=== PATIENT | female | born 1990 | race Caucasian/White ===

== ENCOUNTER 2017-02-08 20:09 | Emergency (ER) | payer BC ==
[~2017-02-08] VITALS: Ht 170.2 cm; Wt 61.2 kg
[~2017-02-08 20:09] MED LIST: CIPR10DR AS; CIPR500T PO; CLIN300C86 PO; ESCI5TAB PO; HYDR453.4 TP; INSU100I13 SQ; INSU100I17 SQ; INSU100V10 IJ; INSU100V13 SQ; INSU100V31 SQ; LISI-338 PO; MAGN400T22 PO; MAGN400T3 PO; METO5TAB PO; METR500T PO; OXYC5CAP3 PO; PANT40TA5 PO; POTA20TA84 PO; SULF1TAB23 PO; TRAM50TA PO
[2017-02-08] MEDS ORDERED: IV NORMAL SALINE 1,000ML 1,000 ML IV ONE ×2 (20:30)
[2017-02-08] MEDS ORDERED: ONDANSETRON PF 4 MG/2 ML VIAL. IV ONE (20:45)
[2017-02-08 21:04] LABS: AMPHETAMINE/METHAMPHETAMINE POS (NEG); BARBITURATES NEG (NEG); BENZODIAZEPINES NEG (NEG); CANNABINOIDS NEG (NEG); COCAINE NEG (NEG); METHADONE NEG (NEG); OPIATES NEG (NEG); PHENCYCLIDINE NEG (NEG)
[2017-02-08 21:06] LABS: BASO % 0 % (0-3); EOS % 0 % (0-3); HEMATOCRIT 44.5 % (36.0-47.0); HEMOGLOBIN 14.6 g/dL (12.0-15.5); LYMPH # 0.6 x10^3/uL (1.0-4.8); LYMPH % 6 % (24-48); MEAN CORPUSCULAR HEMOGLOBIN 30 pg (25-35); MEAN CORPUSCULAR HGB CONC 33 g/dL (31-37); MEAN CORPUSCULAR VOLUME 91 fL (79-100); MONO # 0.3 x10^3/uL (0.0-1.1); MONO % 3 % (0-9); NEUT # 9.2 x10^3uL (1.8-7.7); NEUT % 91 % (31-73); PLATELET COUNT 426 x10^3/uL (140-400); RED BLOOD COUNT 4.92 x10^6/uL (3.50-5.40); WHITE BLOOD COUNT 10.1 x10^3/uL (4.0-11.0)
[2017-02-08 21:12] LABS: BACTERIA,URINE FEW /HPF (0-FEW); BILIRUBIN,URINE NEG (NEG); CLARITY,URINE HAZY; COLOR,URINE YELLOW; GLUCOSE,URINE >=1000 mg/dL (NEG); NITRITE,URINE NEG (NEG); RBC,URINE OCC /HPF (0-2); SQUAMOUS EPITHELIAL CELL,UR MANY /LPF; UROBILINOGEN,URINE 0.2 mg/dL (0.2 mg/dL)
[2017-02-08 21:13] LABS: U PREG PATIENT NEGATIVE (NEG)
[2017-02-08 22:15] LABS: ALBUMIN 2.8 g/dL (3.4-5.0); ALBUMIN/GLOBULIN RATIO 0.9 (1.0-1.7); CALCIUM 7.7 mg/dL (8.5-10.1); CREATININE 0.7 mg/dL (0.6-1.0); POTASSIUM 3.8 mmol/L (3.5-5.1); TOTAL BILIRUBIN 0.4 mg/dL (0.2-1.0)
[2017-02-08] MEDS ORDERED: PROM25SU32 RC (22:25)
--- NOTE | 2017-02-08 22:26 | PHYS DOC ---
Past History Past Medical History: Diabetes Additional Past Medical Histor: pt reports several admissions for "high blood sugar" Past Surgical History: No Surgical History Smoking: Less than 1pk/day Alcohol Use: None Drug Use: Methamphetamine Adult General Chief Complaint Chief Complaint: HYPERGLYCEMIA HPI HPI 26-year-old female well-known to me and are department with multiple visits for DKA. She presents tonight admitting she's been noncompliant with her insulin again. She states she's noncompliant because she just forgets to take it. H for the last 2 days she has had nausea and vomiting in this felt terrible. She denies any illicit drug use. She denies any fever chills or sweats. [] Review of Systems Review of Systems Constitutional: Denies fever or chills [] Eyes: Denies change in visual acuity, redness, or eye pain [] HENT: Denies nasal congestion or sore throat [] Respiratory: Denies cough or shortness of breath [] Cardiovascular: No additional information not addressed in HPI [] GI: Per history of present illness [] : Polyuria [] Musculoskeletal: Denies back pain or joint pain [] Integument: Denies rash or skin lesions [] Neurologic: Denies headache, focal weakness or sensory changes [] Endocrine: Denies polyuria or polydipsia [] Current Medications Current Medications Current Medications Medications (Trade) Dose Ordered Sig/Chevy Start Time Stop Time Status Last Admin Dose Admin Ondansetron HCl (Zofran) 4 mg 1X ONCE 02/08/17 20:45 02/08/17 20:46 DC 02/08/17 20:58 4 MG Sodium Chloride (Iv Sodium Chloride 0.9% 1,000ml) 1,000 ml @ 1,000 mls/hr 1X ONCE 02/08/17 20:30 02/08/17 21:29 DC 02/08/17 21:51 1,000 MLS/HR Allergies Allergies Allergies Coded Allergies Type Severity Reaction Last Updated Verified acetaminophen Allergy Intermediate HIVES 11/27/16 Yes adhesive tape Allergy Intermediate 11/27/16 Yes I S O L A T I O N *CONTACT* Allergy Unknown 11/27/16 Yes Physical Exam Physical Exam Constitutional: Mildly dehydrated, acutely ill however she appears much better than she ordinarily does.. [] HENT: Normocephalic, atraumatic, bilateral external ears normal, oropharynx moist, no oral exudates, nose normal. [] Eyes: PERRLA, EOMI, conjunctiva normal, no discharge. [] Neck: Normal range of motion, no tenderness, supple, no stridor. [] Cardiovascular:Heart rate regular rhythm, no murmur [] Lungs & Thorax: Bilateral breath sounds clear to auscultation [] Abdomen: Bowel sounds normal, soft, no tenderness, no masses, no pulsatile masses. [] Skin: Warm, dry, no erythema, no rash. [] Back: No tenderness, no CVA tenderness. [] Extremities: No tenderness, no cyanosis, no clubbing, ROM intact, no edema. [] Neurologic: Alert and oriented X 3, normal motor function, normal sensory function, no focal deficits noted. [] Psychologic: Affect normal, judgement normal, mood normal. [] Current Patient Data Vital Signs Vital Signs Date Time Temp Pulse Resp B/P Pulse Ox O2 Delivery O2 Flow Rate FiO2 02/08/17 20:09 97.9 114 22 100 Room Air Lab Results Laboratory Tests Test 02/08/17 20:14 02/08/17 20:19 02/08/17 20:45 02/08/17 21:38 Urine Collection Type Unknown Urine Color Yellow Urine Clarity Hazy Urine pH 5.5 Urine Specific [place] 1.020 Urine Protein Trace (NEG-TRACE) Urine Glucose (UA) >=1000mg/dL (NEG) Urine Ketones (Stick) >=160mg/dL (NEG) Urine Blood Neg (NEG) Urine Nitrite Neg (NEG) Urine Bilirubin Neg (NEG) Urine Urobilinogen Dipstick 0.2mg/dL (0.2 mg/dL) Urine Leukocyte Esterase Neg (NEG) Urine RBC Occ/HPF (0-2) Urine WBC 1-4/HPF (0-4) Urine Squamous Epithelial Cells Many/LPF Urine Bacteria Few/HPF (0-FEW) Urine Test Negative (NEG) Urine Opiates Screen Neg (NEG) Urine Methadone Screen Neg (NEG) Urine Barbiturates Neg (NEG) Urine Phencyclidine Screen Neg (NEG) Urine Amphetamine/Methamphetamine Pos (NEG) Urine Benzodiazepines Screen Neg (NEG) Urine Cocaine Screen Neg (NEG) Urine Cannabinoids Screen Neg (NEG) Urine Ethyl Alcohol Neg (NEG) Glucose (Fingerstick) 272mg/dL (70-99) H White Blood Count 10.1x10^3/uL (4.0-11.0) Red Blood Count 4.92x10^6/uL (3.50-5.40) Hemoglobin 14.6g/dL (12.0-15.5) Hematocrit 44.5% (36.0-47.0) Mean Corpuscular Volume 91fL (79-100) Mean Corpuscular Hemoglobin 30pg (25-35) Mean Corpuscular Hemoglobin Concent 33g/dL (31-37) Red Cell Distribution Width 15.0% (11.5-14.5) H Platelet Count 426x10^3/uL (140-400) #H Neutrophils (%) (Auto) 91% (31-73) H Lymphocytes (%) (Auto) 6% (24-48) L Monocytes (%) (Auto) 3% (0-9) Eosinophils (%) (Auto) 0% (0-3) Basophils (%) (Auto) 0% (0-3) Neutrophils # (Auto) 9.2x10^3uL (1.8-7.7) H Lymphocytes # (Auto) 0.6x10^3/uL (1.0-4.8) L Monocytes # (Auto) 0.3x10^3/uL (0.0-1.1) Eosinophils # (Auto) 0.0x10^3/uL (0.0-0.7) Basophils # (Auto) 0.0x10^3/uL (0.0-0.2) Sodium Level 139mmol/L (136-145) Potassium Level 3.8mmol/L (3.5-5.1) Chloride Level 102mmol/L (98-107) Carbon Dioxide Level 28mmol/L (21-32) Anion Gap 9 (6-14) Blood Urea Nitrogen 33mg/dL (7-20) H Creatinine 0.7mg/dL (0.6-1.0) Estimated GFR (Cockcroft-Gault) 102.0 BUN/Creatinine Ratio 47 (6-20) H Glucose Level 240mg/dL (70-99) H Calcium Level 7.7mg/dL (8.5-10.1) L Total Bilirubin 0.4mg/dL (0.2-1.0) Aspartate Amino Transferase (AST) 13U/L (15-37) L Alanine Aminotransferase (ALT) 19U/L (14-59) Alkaline Phosphatase 75U/L (46-116) Total Protein 6.0g/dL (6.4-8.2) L Albumin 2.8g/dL (3.4-5.0) L Albumin/Globulin Ratio 0.9 (1.0-1.7) L Lipase 42U/L (73-393) L Test 02/08/17 21:53 Glucose (Fingerstick) 193mg/dL (70-99) H EKG EKG [] Radiology/Procedures Radiology/Procedures [] Course & Med Decision Making Course & Med Decision Making Pertinent Labs and Imaging studies reviewed. (See chart for details) [ED course: Evaluation reveals 26-year-old female well-known to me who has hyperglycemia. She was given 2 L of normal saline during her stay in the department which made her feel considerably better. She is not in DKA tonight's I feel comfortable that she can go home. I have strongly encouraged her to be compliant with her medication. Patient verbally agrees to be compliant.] Dragon Disclaimer Dragon Disclaimer This chart was dictated in whole or in part using Voice Recognition software in a busy, high-work load, and often noisy Emergency Department environment. It may contain unintended and wholly unrecognized errors or omissions. Departure Departure: Impression: Primary Impression: Hyperglycemia Additional Impression: Nausea & vomiting Disposition: 01 HOME, SELF-CARE Condition: STABLE Referrals: DANIAL VINCENT (PCP) Patient Instructions: Diabetes and Sick Day Management, How to Avoid Diabetes Problems, Monitoring for Diabetes, Type 1 Diabetes Mellitus, Adult Additional Instructions: Thank you for allowing us to participate in your care today. Followup with your primary care physician in 3 days if your symptoms do not improve. Return to the emergency department you have any new or concerning findings. This should be evaluated by the primary care physician and any necessary consulting services for continued management within a few days after discharge. Return to emergency room if you have any new or concerning symptoms including but not limited to fever, chills, nausea, vomiting, intractable pain, any new rashes, chest pain, shortness of air, uncontrolled bleeding, difficulty breathing, and/or vision loss. You may have been prescribed medication that can change in your level of thinking and ability to operate machinery. These medications include hydrocodone and Ativan. Also, Benadryl has been known to do this as well. Be sure to check with your pharmacist and ask if the medications you've prescribed can affect your level of consciousness. I recommend not operating heavy machinery or driving while on medication such as these. Scripts Promethazine HCl (Phenergan)25 Mg Supp.rect25 Mg RC Q6HRS PRN nausea and vomiting #10 SUPP.RECT Prov:ELIEZER CARPENTER DO 02/08/17 Problem Qualifiers Additional Impression: Nausea & vomiting Vomiting type: unspecified Vomiting Intractability: unspecified Qualified Code: R11.2 - Nausea with vomiting, unspecified ELIEZER CARPENTER DO Feb 08, 2017 22:26
[2017-02-08 23:37] VITALS: BP 105/65
[2017-02-12] MEDS ORDERED: MUPI22OI2 TP (10:45)
== END 2017-02-08 23:40 | disposition home or self-care (01) ==
LOC: ER 20:09
DX: E11.65 Type 2 diabetes mellitus with hyperglycemia (principal); E86.0 Dehydration; E13.10 Other specified diabetes mellitus with ketoacidosis without coma; F17.200 Nicotine dependence, unspecified, uncomplicated; F15.10 Other stimulant abuse, uncomplicated; Z91.14 Patient's other noncompliance with medication regimen; Z79.4 Long term (current) use of insulin; Z88.8 Allergy status to other drugs, medicaments and biological substances; Z88.6 Allergy status to analgesic agent; Z91.041 Radiographic dye allergy status
CPT/HCPCS: 36415; 80053; 80305; 81001; 81025; 82947; 83690; 85027; 96361; 96374; 99284; J2405; G0481; J7030

== ENCOUNTER 2017-02-10 14:53 | Inpatient (IN) | payer BC ==
[~2017-02-10] VITALS: Ht 170.2 cm; Wt 66.8 kg
[2017-02-10] VITALS (7 sets, daily range): BP systolic 110–142; BP diastolic 59–84
[~2017-02-10 14:53] MED LIST changes: +PROM25SU32 RC
[2017-02-10 15:40] LABS: BASO # 0.1 x10^3/uL (0.0-0.2); BASO % 1 % (0-3); EOS % 0 % (0-3); HEMATOCRIT 45.6 % (36.0-47.0); HEMOGLOBIN 14.5 g/dL (12.0-15.5); LYMPH # 1.4 x10^3/uL (1.0-4.8); LYMPH % 24 % (24-48); MEAN CORPUSCULAR HEMOGLOBIN 30 pg (25-35); MEAN CORPUSCULAR HGB CONC 32 g/dL (31-37); MEAN CORPUSCULAR VOLUME 94 fL (79-100); MONO # 0.3 x10^3/uL (0.0-1.1); MONO % 6 % (0-9); NEUT # 3.9 x10^3uL (1.8-7.7); NEUT % 69 % (31-73); PLATELET COUNT 409 x10^3/uL (140-400); RED BLOOD COUNT 4.83 x10^6/uL (3.50-5.40); RED CELL DISTRIBUTION WIDTH 14.9 % (11.5-14.5); WHITE BLOOD COUNT 5.6 x10^3/uL (4.0-11.0)
[2017-02-10 15:42] LABS: ALBUMIN 3.6 g/dL (3.4-5.0); ALBUMIN/GLOBULIN RATIO 0.8 (1.0-1.7); CALCIUM 8.8 mg/dL (8.5-10.1); CREATININE 1.1 mg/dL (0.6-1.0); GFR 60.5; POTASSIUM 5.2 mmol/L (3.5-5.1); TOTAL BILIRUBIN 0.5 mg/dL (0.2-1.0); TOTAL PROTEIN 7.9 g/dL (6.4-8.2)
[2017-02-10] MEDS ORDERED: ONDANSETRON PF 4 MG/2 ML VIAL. IV ONE (16:00)
[2017-02-10] MEDS ORDERED: IV NORMAL SALINE 1,000ML 1,000 ML IV ONE ×5 (16:00→23:00)
[2017-02-10] MEDS ORDERED: INSULIN REGULAR 100 UNIT/ML 10ML VIAL. IV ONE (16:00)
--- NOTE | 2017-02-10 16:17 | PHYS DOC ---
Past History Past Medical History: Diabetes Additional Past Medical Histor: pt reports several admissions for "high blood sugar" Past Surgical History: No Surgical History Smoking: Less than 1pk/day Alcohol Use: None Drug Use: Methamphetamine Adult General Chief Complaint Chief Complaint: BLOOD SUGAR PROBLEM HPI HPI 26 -year-old female patient with history of type 1 diabetes and frequent emergency room visits and hospitalization with DKA states she was discharged from hospital 3 days ago and started to have nausea and vomiting since this morning with" high" blood sugar. Patient states she vomited more than 20 times and complaining of hurting all over. Her LMP was March 2016. Review of Systems Review of Systems Constitutional: Denies fever or chills [] Eyes: Denies change in visual acuity, redness, or eye pain [] HENT: Denies nasal congestion or sore throat [] Respiratory: Denies cough or shortness of breath [] Cardiovascular: No additional information not addressed in HPI [] GI: See HPI [] : Denies dysuria or hematuria [] Musculoskeletal: Denies back pain or joint pain [] Integument: Denies rash or skin lesions [] Neurologic: Denies headache, focal weakness or sensory changes [] Current Medications Current Medications Current Medications Medications (Trade) Dose Ordered Sig/Chevy Start Time Stop Time Status Last Admin Dose Admin Insulin Human Regular 5 unit 5 unit 1X ONCE 02/10/17 16:00 02/10/17 16:01 DC 02/10/17 16:02 5 UNIT Insulin Human Regular/Sodium Chloride (Novolin R/Iv Normal Saline 150ml) 151.5 ml @ 0 mls/hr 1X ONCE 02/10/17 16:30 02/10/17 16:31 Ondansetron HCl 4 mg 4 mg 1X ONCE 02/10/17 16:00 02/10/17 16:01 DC 02/10/17 15:46 4 MG Sodium Chloride (Iv Sodium Chloride 0.9% 1,000ml) 1,000 ml @ 1,000 mls/hr 1X ONCE 02/10/17 16:00 02/10/17 16:59 Allergies Allergies Allergies Coded Allergies Type Severity Reaction Last Updated Verified acetaminophen Allergy Intermediate HIVES 11/27/16 Yes adhesive tape Allergy Intermediate 11/27/16 Yes I S O L A T I O N *CONTACT* Allergy Unknown 11/27/16 Yes Physical Exam Physical Exam Constitutional: Moderate distress, dehydrated, non-toxic appearance. [] HENT: Normocephalic, atraumatic, bilateral external ears normal, oropharynx dry , no oral exudates, nose normal. [] Eyes: PERRLA, EOMI, conjunctiva normal, no discharge. [] Neck: Normal range of motion, no tenderness, supple, no stridor. [] Cardiovascular:Heart rate regular rhythm, no murmur [] Lungs & Thorax: Bilateral breath sounds clear to auscultation [] Abdomen: Bowel sounds normal, soft, no tenderness, no masses, no pulsatile masses. [] Skin: Warm, dry, no erythema, no rash. [] Back: No tenderness, no CVA tenderness. [] Extremities: No tenderness, no cyanosis, no clubbing, ROM intact, no edema. [] Neurologic: Alert and oriented X 3, normal motor function, normal sensory function, no focal deficits noted. [] Psychologic: anxious Current Patient Data Vital Signs Vital Signs Date Time Temp Pulse Resp B/P Pulse Ox O2 Delivery O2 Flow Rate FiO2 02/10/17 15:00 98.9 114 18 98 Room Air Lab Results Laboratory Tests Test 02/10/17 15:10 White Blood Count 5.6x10^3/uL (4.0-11.0) Red Blood Count 4.83x10^6/uL (3.50-5.40) Hemoglobin 14.5g/dL (12.0-15.5) Hematocrit 45.6% (36.0-47.0) Mean Corpuscular Volume 94fL (79-100) Mean Corpuscular Hemoglobin 30pg (25-35) Mean Corpuscular Hemoglobin Concent 32g/dL (31-37) Red Cell Distribution Width 14.9% (11.5-14.5) H Platelet Count 409x10^3/uL (140-400) H Neutrophils (%) (Auto) 69% (31-73) Lymphocytes (%) (Auto) 24% (24-48) Monocytes (%) (Auto) 6% (0-9) Eosinophils (%) (Auto) 0% (0-3) Basophils (%) (Auto) 1% (0-3) Neutrophils # (Auto) 3.9x10^3uL (1.8-7.7) Lymphocytes # (Auto) 1.4x10^3/uL (1.0-4.8) Monocytes # (Auto) 0.3x10^3/uL (0.0-1.1) Eosinophils # (Auto) 0.0x10^3/uL (0.0-0.7) Basophils # (Auto) 0.1x10^3/uL (0.0-0.2) Sodium Level 131mmol/L (136-145) L Potassium Level 5.2mmol/L (3.5-5.1) H Chloride Level 97mmol/L (98-107) L Carbon Dioxide Level 8mmol/L (21-32) *L Anion Gap 26 (6-14) H Blood Urea Nitrogen 18mg/dL (7-20) Creatinine 1.1mg/dL (0.6-1.0) H Estimated GFR (Cockcroft-Gault) 60.5 BUN/Creatinine Ratio 16 (6-20) Glucose Level 376mg/dL (70-99) H Calcium Level 8.8mg/dL (8.5-10.1) Total Bilirubin 0.5mg/dL (0.2-1.0) Aspartate Amino Transferase (AST) 12U/L (15-37) L Alanine Aminotransferase (ALT) 19U/L (14-59) Alkaline Phosphatase 108U/L (46-116) Total Protein 7.9g/dL (6.4-8.2) Albumin 3.6g/dL (3.4-5.0) Albumin/Globulin Ratio 0.8 (1.0-1.7) L Acetone Level Sm pos (NEG) EKG EKG [] Radiology/Procedures Radiology/Procedures [] Impressions: DKA Course & Med Decision Making Course & Med Decision Making Pertinent labs reviewed. (See chart for details) Evaluation of patient illness a 26-year-old female patient with frequent hospitalization for DKA presented to the ER because of nausea and vomiting and "high" blood sugar. Patient had a blood sugar of 380 and IV fluid and Insulin was started. Patient refused ABG. Labs showed Co2 0f 8. Dr Machado form at 1640 hospitalization but he requested ABG before admission. Patient at least 12 ABG on had pH of 7.15 and bicarbonate of 5. Dr Kamara informed at 1610 and he suggested to stop insulin drip and just lgive bolus of Insulin and IVF. Patient was admitted to ICU. Blood sugar was 308 at time of transfer to ICU. Critical care:70 minutes Dragon Disclaimer Dragon Disclaimer This chart was dictated in whole or in part using Voice Recognition software in a busy, high-work load, and often noisy Emergency Department environment. It may contain unintended and wholly unrecognized errors or omissions. Departure Departure: Impression: Primary Impression: DKA (diabetic ketoacidoses) Additional Impressions: DM (diabetes mellitus) type 1, uncontrolled, with ketoacidosis Nausea and vomiting Disposition: 09 ADMITTED INPATIENT ([id number]) Admitting Physician: Ramirez Machado Condition: GUARDED Referrals: DANIAL VINCENT (PCP) Problem Qualifiers ISRAEL WHITT MD Feb 10, 2017 16:17
--- NOTE | 2017-02-10 16:29 | ACF ---
Admission Criteria Forms GENERAL ADMISSION CRITERIA (Place 'X' for any and all applicable criteria): Admission is indicated for ANY ONE of the following: [ ]I. Hemodynamic instability as indicated by ANY ONE of the following(1)(2) (3)(4)(5): [ ]a) Vital sign abnormality not readily corrected by appropriate treatment within 12 to 24 hours indicated by ANY ONE of the following: [ ]i) Hypotension [ ]ii) Symptomatic Tachycardia unresponsive to treatment (eg , analgesia, fluids, sedation as indicated) [ ]iii) Orthostatic vital sign changes unresponsive to treatment (eg, fluids) [ ]b) Vital sign abnormality that is severe indicated by ANY ONE of the following: [ ]i) Inadequate perfusion indicated by ANY ONE of the following: [ ]1) Lactic acidosis (greater than 2 mmol/L) [ ]2) New abnormal capillary refill (greater than 3 seconds) [ ]3) Other metabolic acidosis (arterial pH less than 7.35) not otherwise explained [ ]4) Reduced urine output [ ]5) Altered mental status [ ]6) Myocardial Ischemia [ ]v) Mean arterial pressure[A] less than 60 mm Hg [ ]vi) Mean arterial pressure[A] less than 70 mm Hg after 30 minutes of appropriate treatment (eg, fluid resuscitation) [ ]vii) IV inotropic or vasopressor medication required to maintain adequate blood pressure or perfusion [ ]viii) Sustained heart rate greater than 120 beats per minute in adult or child 6 years or older[B]] [ ]II. Hypertension requiring inpatient treatment as indicated by ANY ONE of the following(6)(7)(8): [ ]a) SBP greater than 220 mm Hg or DBP greater than 120 mm Hg despite treatment [ ]b) SBP greater than 140 mm Hg or DBP greater than 100 mm Hg with evidence of acute end organ damage as indicated by ANY ONE of the following: [ ]i) Encephalopathy [ ]ii) Acute renal failure as indicated by new onset of ANY ONE of the following(9)(10)(11)(12)(13): [ ]1) A 3-fold rise in serum creatinine from baseline [ ]2) Serum creatinine greater than 4 mg/dL ( 354 micromoles/L) with acute rise greater than 0.5 mg/dL (44.2 micromoles/L) [ ]3) Reduction of more than 75% in estimated glomerular filtration rate from baseline [ ]4) Estimated glomerular filtration rate less than 35 mL/min/1.73m2 (0.59 mL/sec/1.73m2) in child up to 18 years of age [ ]5) Cessation of urine output indicated by ALL of the following: [ ]A. Adequate volume status [ ]B. Inadequate urine output as indicated by ANY ONE of the following: [ ]a. Urine output less than 0.3 mL/kg/hr for 24 hours [ ]b. Anuria (urine output less than 0.1 mL/kg/hr) for 12 hours [ ]iii) Aortic dissection [ ]iv) Myocardial ischemia [ ]v) Left ventricular heart failure [ ]vi) Retinal hemorrhage [ ]vii) Other significant finding [ ]c) Hypertension in child requiring inpatient treatment as indicated by ALL of the following(14)(15)(16): [ ]i) Outpatient treatment not effective, not available, or not appropriate [ ]ii) SBP or DBP greater than 95th percentile for age [ ]iii) Evidence of acute end organ damage as indicated by ANY ONE of the following: [ ]1) Altered mental status [ ]2) Acute renal failure as indicated by new onset of ANY ONE of the following(9)(10)(11)(12)(13): [ ]A. A 3-fold rise in serum creatinine from baseline [ ]B. Serum creatinine greater than 4 mg/dL (354 micromoles/L) with acute rise greater than 0.5 mg/dL (44.2 micromoles/L) [ ]C. Reduction of more than 75% in estimated glomerular filtration rate from baseline [ ]D. Estimated glomerular filtration rate less than 35 mL/min/1.73m2 (0.59 mL/sec/1.73m2)in child up to 18 years of age [ ]E. Cessation of urine output indicated by ALL of the following: [ ]a. Adequate volume status [ ]b. Inadequate urine output as indicated by ANY ONE of the following: [ ]1) Urine output less than 0.3 mL/kg/hr for 24 hours [ ]2) Anuria (urine output less than 0.1 mL/kg/hr) for 12 hours [ ]3) Severe headache [ ]4) Visual disturbance [ ]5) Retinal hemorrhage [ ]6) Other significant finding [ ]III. Acute cardiac or peripheral ischemia as indicated by ANY ONE of the following: [ ]a) Acute coronary syndrome(17)(18) [ ]b) Acute peripheral ischemia (eg, pulseless, cool, mottled, or cyanotic extremity)(19) [ ]IV. Cardiac arrhythmias or findings of immediate concern indicated by ANY ONE of the following(20)(21): [ ]a) Heart rhythms that are inherently dangerous or unstable indicated by ANY ONE of the following(22)(23)(24): [ ]i) Resuscitated ventricular fibrillation or cardiac arrest [ ]ii) Ventricular escape rhythm [ ]iii) Sustained ventricular tachycardia (30 seconds or more of ventricular rhythm at greater than 100 beats per minute) [ ]iv) Nonsustained ventricular tachycardia and ANY ONE of the following: [ ]1) Suspected cardiac ischemia as cause or consequence of ventricular tachycardia [ ]2) In setting of acute myocarditis [ ]b) Unstable cardiac conduction defects indicated by ANY ONE of the following(24)(25)(26): [ ]i) Type II second-degree atrioventricular block [ ]ii) Third-degree atrioventricular block [ ]iii) New-onset left bundle branch block with suspected myocardial ischemia [ ]c) Any heart rhythm and ANY ONE of the following(22)(23)(27)(28)( 29): [ ] i) Continuous long-term ECG monitoring needed (eg, initiation of drug requiring monitoring for more than 24 hours) [ ] ii) Patient has automatic implanted cardioverter defibrillator that is repeatedly firing, malfunctioning, or in need of immediate adjustment of settings beyond the scope of ambulatory or observation care. [ ]d) Heart rhythms of concern due to ANY ONE of the following: [ ]i) Hypotension [ ]ii) Respiratory distress [ ]iii) Association with other significant symptoms (eg, bradycardia with syncope or ongoing dizziness, supraventricular tachycardia with chest pain) (27)(28) (30) [ ] V. Severe heart failure as indicated by ANY ONE of the following ( 31)(32): [ ]a) Respiratory distress [ ]b) Hypotension [ ]c) Anasarca (refractory to outpatient therapy) [ ]d) Cardiac arrhythmias of immediate concern [ ]e) Myocardial ischemia [ ]. Respiratory abnormalities, including ANY ONE of the following(33)(34) (35)(36): [ ]a) Respiratory rate greater than 30 breaths per minute unresponsive to treatment [A] [ ]b) New saturation of arterial oxygen less than 90% [ ]c) New partial pressure of carbon dioxide greater than 44 mm Hg ( 5.9 kPa) [ ]d) Supplemental oxygen or respiratory treatments needed that are new or not performable at other levels of care [ ]e) New-onset cyanosis [ ]f) Inability to protect airway [ ]g) Chronic lung disease with severe deterioration (not responsive to emergency and observation care treatment as appropriate) as indicated by ANY ONE of the following(34)(36 ): [ ]i) SaO2 5% below baseline in patient with chronic hypoxemia [ ]ii) New requirement for supplemental oxygen to keep SaO2 at baseline or acceptable level [ ]iii) Required supplemental oxygen performable only in acute inpatient setting [ ]iv) Severe airflow or ventilation abnormalities [ ]v) Previously mobile patient unable to walk between rooms [ ]vi Inability to eat or sleep due to dyspnea [ ]vii) Rapid rate of exacerbation onset [ ]viii) Altered mental status ]VII. Severe airflow or ventilation abnormalities (not responsive to emergency and observation care treatment as appropriate) as indicated by ANY ONE of the following(33)(34)(35)(37): [ ]a) PCO2 greater than 42 mm Hg (5.6 kPa) and pH less than 7.35 (new ) [ ]b) Documented PCO2 increased more than 5 mm Hg (0.7 kPa) from disease baseline [ ]c) Airflow measurements [B] less than 60% of previous best or predicted (eg, peak expiratory flow rate less than 300 L/minute) despite intensive emergent treatment [C] [ ]d) Required respiratory treatments that are performable only in acute inpatient setting [ ]VIII. Impending or actual respiratory arrest ( Also use Respiratory Failure GRG for severe respiratory disease and long-term mechanical ventilation patients) [ ]IX. Neurologic abnormalities, including ANY ONE of the following: [ ]a) New findings that suggest ANY ONE of the following: [ ]i) [employer] infection(38) [ ]ii) Cerebral bleeding, ischemia, or vasospasm(39)(40) [ ]iii) Increased intracranial pressure, hydrocephalus, or cerebral edema(41)(42)(43) [ ]iv) Spinal cord injury(44) [ ]b) Uncontrolled seizures(45) [ ]c) New-onset coma (eg, Juani coma scale score less than 9) or unexplained abnormal mental status (eg, Juani coma scale score less than 14) [D](41)(46)(47) [ ]X. New-onset severe neurologic findings requiring inpatient care; examples include(42)(48)(49): [ ]a) Papilledema [ ]b) Cerebral edema [ ]c) Mass effect on CT scan [ ]XI. Suspected acute intra-abdominal process with peritoneal signs, abdominal mass, or similar findings (50)(51)(52) [ X]XII. Severe physiologic disorder remaining after emergency or observation level care (as appropriate) as indicated by ANY ONE of the following (53): [ ]a) Significant dehydration [ X]b) Diabetic ketoacidosis [ ]c) Hyperglycemic hyperosmolar state (eg, osmolality greater than 320 mOsm/kg (mmol/kg) [ ]d) Hypoglycemia [ ]e) Other (new) acid-base disorder with pH less than 7.35 or greater than 7.5(54) [ ]f) Thyroid storm (55) [ ]g) Myxedema coma (55) [ ]XIII. Abdominal abnormalities with ANY ONE of the following(56)(57): [ ]a) Absent bowel sounds with complete ileus [ ]b) Signs of intestinal obstruction or peritonitis [E] [ ]c) Nausea and vomiting that cannot be controlled with outpatient or observation care [ ]XIV. Acute renal failure as indicated by new onset of ANY ONE of the following(9)(10)(11)(12)(13): [ ]a) A 3-fold rise in serum creatinine from baseline [ ]b) Serum creatinine greater than 4 mg/dL (354 micromoles/L) with acute rise greater than 0.5 mg/dL (44.2 micromoles/L) [ ]c) Reduction of more than 75% in estimated glomerular filtration rate from baseline [ ]d) Estimated glomerular filtration rate less than 35 mL/min/ 1.73m2 (0.59 mL/sec/1.73m2) in child up to 18 years of age [ ]e) Cessation of urine output indicated by ALL of the following: [ ]i) Adequate volume status [ ]ii) Inadequate urine output as indicated by ANY ONE of the following: [ ]1) Urine output less than 0.3 mL/kg/hr for 24 hours [ ]2) Anuria (urine output less than 0.1 mL/kg/hr) for 12 hours [ ]XV. Significant uremic complications as indicated by ANY ONE of the following(58)(59)(60): [ ]a) Outpatient therapy is ineffective or not feasible for ANY ONE of the following: [ ]i) Severe heart failure [ ]ii) Severehypertension [ ]iii) Pleural effusion [ ]iv) Pericarditis or pericardial effusion [ ]b) Cardiac arrhythmias of immediate concern [ ]c) Intractable nausea or vomiting [ ]d) Recurrent seizures [ ]e) Encephalopathy [ ]f) Bleeding abnormalities (eg, platelet dysfunction) with active (eg, gastrointestinal) bleeding [ ]g) Dialysis indicated before long-term access or ambulatory arrangements can be made [ ]h) Significant metabolic or electrolyte abnormalities (eg, severe acidosis or hyperkalemia) [ ]XVI. High fever or other high-risk infection situation as indicated by ANY ONE of the following(61)(62)(63)(64): [ ]a) Outpatient and observation care antimicrobial treatment unavailable, not effective, or not appropriate [ ]b) Documented bacteremia [ ]c) Temperature greater than 40.5 degrees C (104.9 degrees F) ( oral) [ ]d) Temperature greater than 39.5 degrees C (103.1 degrees F) ( oral) or less than 36 degrees C (96.8 degrees F) (rectal) that does not respond to e treatment and observation care [ ] XVII. Temperature less than 95 degrees F (35 degrees C)(rectal)(65) [ ] XVIII. Severe nutritional abnormalities as indicated by ALL of the following (66)(67): [ ]a) Inability to tolerate or establish sufficient oral or other enteral nutrition in outpatient setting [ ]b) Parenteral nutrition regimen need that must be implemented on inpatient basis [ ] XIX. Severe electrolyte abnormalities indicated by ALL of the following(68) (69)(70): [ ]a) Electrolytes and associated findings are not as expected for patient baseline or acceptable treatment effects. [ ]b) Severe abnormalities indicated by ANY ONE of the following: [ ]i) Sodium less than 130 mEq/L (mmol/L) (new) [ ]ii)Sodium less than 135 mEq/L (mmol/L) with ANY ONE of the following: [ ]1) Uncorrectable (to near normal or chronic baseline) after trial of outpatient and emergency treatment [ ]2) Altered mental status [ ]3) Seizures [ ]4) Severe medical etiology requiring inpatient management (eg, heart failure, hypovolemia) [ ]iii) Sodium greater than 155 mEq/L (mmol/L) [ ]iv) Sodium greater than 150 mEq/L (mmol/L) with ANY ONE of the following: [ ]1) Uncorrectable (to near normal or chronic baseline) with outpatient and emergency treatment [ ]2) Altered mental status [ ]3) Seizures [ ]4) Severe medical etiology (eg, hypovolemia, diabetes insipidus) [ ]v) Potassium less than 2.5 mEq/L (mmol/L) despite outpatient and emergency treatment [ ]vi) Potassium less than 3 mEq/L (mmol/L) with ANY ONE of the following: [ ]1) Weakness [ ]2) Cardiac abnormality (eg, arrhythmia, conduction disturbance) [ ]3) Cardiac ischemia [ ]4) Ileus [ ]5) Ongoing medical cause requiring inpatient management (eg, acute renal wasting or SIADH) [ ]6) Other severe symptoms [ ]vii) Potassium greater than 6.5 mEq/L (mmol/L) [ ]viii) Potassium greater than 5 mEq/L (mmol/L) with ANY ONE of the following: [ ]1) Uncorrectable (to near normal or chronic baseline) with outpatient and emergency treatment [ ]2) Severe ECG findings [F] [ ]3) Acute worsening of renal failure (creatinine greater than 2.5 mg/dL (221 micromoles/L) or significant elevation for age and size) [ ]4) Severe weakness [ ]5) Severe medical etiology (eg, hemolysis, infection, drug overdose) [ ]ix) Calcium less than 7 mg/dL (1.75 mmol/L) despite outpatient and emergency treatment (72) [ ]x) Calcium less than 8 mg/dL (2 mmol/L) with significant symptoms or findings; examples include(72): [ ]1) Altered mental status [ ]2) Muscle spasms [ ]3) Seizures [ ]4) Breathing difficulty [ ]5) Cardiac abnormality (eg, arrhythmia or conduction disturbance) [ ]xi) Calcium greater than 14 mg/dL (3.5 mmol/L)(72) [ ]xii) Calcium greater than 12 mg/dL (3 mmol/L) with ANY ONE of the following(72): [ ]1) Uncorrectable (to near normal or chronic baseline) with outpatient and emergency treatment [ ]2) Significant dehydration or hypovolemia as indicated by ALL of the following(70)(73)(74): [ ]A. Not resolved with initial treatments [ ]B. Clinically significant dehydration as indicated by ANY ONE of the following: [ ]a. Vomiting refractory to outpatient treatment (ie, precluding oral rehydration) [ ]b. Inability to drink [ ]c. Hypernatremia or other electrolyte abnormality unable to be corrected with outpatient and emergency treatment [ ]d. Failure to remain hydrated with outpatient therapy [ ]e. Reduced urine output [ ]f. Hypotension [ ]g. Serious cause for dehydration requiring acute hospitalization (eg, bowel obstruction, increased intracranial pressure, infectious cause) [ ]h. Child with ANY ONE of the following(75): [ ]1) Severe abdominal tenderness [ ]2) Adequate care not available at home [ ]3) Severe dehydration ( greater than 9% loss of body weight) [ ]4) Significant symptoms or findings; examples include: [ ]A. Altered mental status [ ]B. Cardiac abnormality (eg, arrhythmia, conduction disturbance) [ ]C. Malignant etiology requiring inpatient treatment [ ]xiii) Phosphorus less than 1 mg/dL (0.32 mmol/L) [ ]xiv) Phosphorus less than 1.5 mg/dL (0.48 mmol/L) with ANY ONE of the following: [ ]1) Patient unresponsive to outpatient and emergency treatment [ ]2) Significant symptoms or findings; examples include: [ ]A. Weakness [ ]B. Altered mental status [ ]C. Breathing difficulty [ ]D. Seizures [ ]E. Rhabdomyolysis [ ]xv) Phosphorus greater than 10 mg/dL (3.2 mmol/L) [ ]xvi) Phosphorus greater than 4.5 mg/dL (1.45 mmol/L) (new) with ANY ONE of the following: [ ]1) Severe medical etiology (eg, crush injury, acute renal failure) [ ]2) Associated hypocalcemia with significant findings; examples include: [ ]A. Neurologic symptoms [ ]B. Altered mental status [ ]C. Muscle spasms [ ]D. Seizures [ ]E. Breathing difficulty [ ]F. Cardiac abnormality (eg, arrhythmia, conduction disturbance) [ ]xvii) Magnesium less than 1 mg/dL (0.41 mmol/L) [ ]xviii) Magnesium less than 1.5 mg/dL (0.62 mmol/L) with ANY ONE of the following: [ ]1) Patient unresponsive to outpatient and emergency treatment [ ]2) Associated hypocalcemia with significant findings; examples include: [ ]A. Altered mental status [ ]B. Muscle spasms [ ]C. Seizures [ ]D. Breathing difficulty [ ]E. Cardiac abnormality (eg, arrhythmia , conduction disturbance) [ ]3) Associated hypokalemia (potassium less than 3 mEq/L (mmol/L)) with risk of arrhythmia [ ]xix) Magnesium greater than 4 mEq/L (2 mmol/L) [ ]xx) Magnesium greater than 2.5 mEq/L (1.25 mmol/L) with significant symptoms or findings; examples include: [ ]1) Weakness [ ]2) Altered mental status [ ]3) Cardiac abnormality (eg, arrhythmia, conduction disturbance) [ ]4) Breathing difficulty [ ]5) Severe medical etiology (eg, renal failure, hypovolemia) [ ]xxi) Uric acid greater than 20 mg/dL (1190 micromoles/L)(76) [ ]xxii) Uric acid greater than 8 mg/dL (476 micromoles/L) with significant symptoms or findings of tumor lysis syndrome; examples include(76): [ ]1) Creatinine greater than 1.5 times upper limit of normal [ ]2) Cardiac abnormality (eg, arrhythmia, conduction disturbance) [ ]3) Seizure [ ]XX. Acute blood loss causing significant abnormality as indicated by ANY ONE of the following(77)(78): [ ]a) Hemoglobin less than 10 g/dL (100 g/L) (not baseline) [ ]b) Hematocrit less than 30% (0.30) (not baseline) [ ]c) Repeat hematocrit decreased more than 2% (0.02) [ ]d) Uncontrolled bleeding [ ]XXI. Severe anemia indicated by ANY ONE of the following(78)(79): [ ]a) Altered mental status [ ]b) Chest pain [ ]c) Exertional dyspnea [ ]d) Syncope [ ]e) Other findings suggesting inadequate perfusion [ ]f) Treatment with transfusion or volume replacement is ineffective at resolving ANY ONE of the following [G]: [ ]i) Tachycardia for age [ ]ii) Orthostatic vital sign changes as indicated by ANY ONE of the following(80): [ ]1) Fall in SBP of 20 mm Hg or more 1 to 3 minutes after patient sits or stands from recumbent position [ ]2) Fall in DBP of 10 mm Hg or more 1 to 3 minutes after patient sits or stands from recumbent position [ ]XXII. High-risk low platelet count as indicated by ANY ONE of the following( 81)(82): [ ]a) Severe or life-threatening bleeding (eg, intracranial, major gastrointestinal, or extensive mucosal bleeding), with any reduced platelet count [ ]b) Platelet count less than 20,000/mm3 (20 x109/L) with any active bleeding [ ]c) Platelet count less than 10,000/mm3 (10 x109/L) with minor purpura or petechiae [ ]d) Platelet count less than 5000/mm3 (5 x109/L) [ ]e) Low platelet count with hemolytic anemia [ ]XXIII. Disseminated intravascular coagulation(77)(83) [ ]XXIV. Severe adverse drug or systemic toxin reaction requiring inpatient treatment; examples include(84)(85): [ ]a) Serotonin syndrome(86) [ ]b) Neuroleptic malignant syndrome(86) [ ]c) Cholinergic syndrome with severe symptoms (eg, bronchorrhea, weakness, mental status changes, seizures) [ ]d) Sympathetic syndrome with severe symptoms (eg, seizures, mental status changes, cardiac dysrhythmias) [ ]e) Anticholinergic syndrome [ ]XXV. Severe pain requiring acute inpatient management as indicated by ALL of the following (87)(88)(89): [ ]a) Continuous or frequent (eg, every 2 to 4 hours) parenteral analgesics required [H] [ ]b) Rapid improvement expected from treatment or acute intervention (eg, surgery, anesthesia procedure) [ ]XXVI.Severe behavioral health issues judged unmanageable at a lower level of care (eg, residential) in a patient who is ANY ONE of the following(91) [ ]a) Acutely suicidal [ ]b) A danger to self (eg, self-mutilating or suicidal behavior) [ ]c) A danger to others (eg, assaultive or homicidal behavior) [ ]d) Incapacitated because of grave disability (eg, inability to provide for self at lower level of care) (92) [ ]XXVII. Inpatient monitoring needed; examples include(1)(3)(87)(93)(94)(95)(96 ): [ ]a) Vital signs, neurologic signs, or vascular checks more frequently than every 4 hours [ ]b) Cardiac or respiratory monitoring beyond the scope (eg, over 24 hours) of observation care [ ]c) Pulmonary artery catheter monitoring [ ]d) Suspected compartment syndrome(97) (98) [ ]e) Cerebral bleeding, hydrocephalus, or vasospasm monitoring [ ]f) Increased intracranial pressure or cerebral edema monitoring [ ]g) monitoring [ ]XXVIII. Treatment requiring inpatient care; examples include: [ ]a) IV fluid to replace significant ongoing losses (greater than 3 L/m2 per day)(53) [ ]b) High concentration oxygen (greater than 40%)(33)(99)(100) [ ]c) Frequent respiratory therapy (more frequently than every 4 hours) to maintain airflow rates greater than 60% of baseline(33)(99)(100) [ ]d) Epidural analgesia(87) [ ]e) IV anticoagulation, vasoactive, or antiarrhythmic medication(19 )(23) [ ]f) Acute thrombolytics (generally require 24 hours of observation )(101)(102) [ ]XXIX. Emergency procedures needed; examples include: [ ]a) Emergency inpatient surgery [ ]b) Temporary pacemaker placement(103) [ ]c) Chest tube placement with active evacuation (eg, suction, drainage)(104) [ ]d) Emergent cardioversion(105) [ ]e) Emergent cardiac or vascular procedures (eg, cardiac catheterization, angioplasty) (17)(18) [ ]f) Emergent dialysis access placement and institution(10)(106) [ ]g) Emergent pericardiocentesis(107) [ ]h) Emergent plasmapheresis or leukapheresis(83) [ ]i) Emergent tracheostomy The original [facility] content created by [facility] has been revised. The portions of the content which have been revised are identified through the use of italic text or in bold, and [facility] has neither reviewed nor approved the modified material. All other unmodified content is copyright [facility]. Please see references footnoted in the original [facility] edition 2016 Admission Criteria Met?: Yes VALERIE IBARRA Feb 10, 2017 16:29
[2017-02-10] MEDS ORDERED: INSULIN REGULAR 150 UNIT in 0.9 % SODIUM CHLORIDE 150ML 150 ML IV ONE (16:30)
[2017-02-10 16:48] LABS: PCO2 ABG 17 mmHg (35-46)
[2017-02-10 16:49] LABS: BASE EXCESS ABG -23 mmol/L (-3-3); HCO3 ABG 5 mmol/L (21-28); PO2 ABG 120 mmHg (85-108); SAT O2 ABG 97 % (92-99)
[2017-02-10] MEDS ORDERED: METOCLOPRAMIDE HCL 10 MG/2 ML VIAL. IV PRN (17:45)
[2017-02-10] MEDS ORDERED: PROMETHAZINE 12.5 MG SUPP.RECT. PR PRN (17:45)
[2017-02-10] MEDS ORDERED: 0.9 % SODIUM CHLORIDE 10 ML DISP.SYRIN. IV PRN (17:45)
[2017-02-10] MEDS ORDERED: ONDANSETRON PF 4 MG/2 ML VIAL. IV PRN (17:45)
[2017-02-10] MEDS ORDERED: CALCIUM CARBONATE 500 MG TAB.CHEW PO PRN (17:45)
[2017-02-10] MEDS ORDERED: IV NORMAL SALINE 1,000ML 1,000 ML IV SCH (17:45)
[2017-02-10] MEDS ORDERED: DEXTROSE 50% 25 GM / 50ML DISP.SYRIN. IV PRN (17:45)
[2017-02-10] MEDS ORDERED: PROCHLORPERAZINE 10 MG/2 ML VIAL. IV PRN (17:45)
[2017-02-10] MEDS ORDERED: ENOXAPARIN 40 MG/0.4 ML DISP.SYRIN. SQ SCH (18:00)
[2017-02-10 18:15] LABS: GFR 67.6; POTASSIUM 5.2 mmol/L (3.5-5.1)
[2017-02-10] MEDS: INSULIN ASPART 300 UNITS/3 ML INSULN.PEN SQ SCH ×3 (18:18→22:00)
[2017-02-10 19:44] LABS: BILIRUBIN,URINE NEG (NEG); CLARITY,URINE CLEAR; COLOR,URINE STRAW; GLUCOSE,URINE 500 mg/dL (NEG)
[2017-02-10 19:45] LABS: BACTERIA,URINE FEW /HPF (0-FEW); BARBITURATES NEG (NEG); BENZODIAZEPINES NEG (NEG); CANNABINOIDS NEG (NEG); COCAINE NEG (NEG); METHADONE NEG (NEG); NITRITE,URINE NEG (NEG); OPIATES NEG (NEG); PHENCYCLIDINE NEG (NEG); RBC,URINE OCC /HPF (0-2); SQUAMOUS EPITHELIAL CELL,UR OCC /LPF; UROBILINOGEN,URINE 0.2 mg/dL (0.2 mg/dL)
[2017-02-10 19:48] LABS: AMPHETAMINE/METHAMPHETAMINE POS (NEG)
[2017-02-10 20:19] LABS: CALCIUM 7.7 mg/dL (8.5-10.1); CREATININE 1.1 mg/dL (0.6-1.0); GFR 60.5; POTASSIUM 5.5 mmol/L (3.5-5.1)
[2017-02-10] MEDS ORDERED: INSULIN REGULAR 150 UNIT in 0.9 % SODIUM CHLORIDE 150ML 150 ML IV PRN (20:45)
[2017-02-10 21:00] LABS: BGAS PH 7.05 (7.35-7.45)
[2017-02-10 22:35] LABS: CALCIUM 7.6 mg/dL (8.5-10.1); GFR 67.6; POTASSIUM 4.5 mmol/L (3.5-5.1)
[2017-02-11] VITALS (24 sets, daily range): BP systolic 104–134; BP diastolic 58–86
[2017-02-11 00:42] LABS: CALCIUM 7.3 mg/dL (8.5-10.1); CREATININE 0.9 mg/dL (0.6-1.0); GFR 76.3; POTASSIUM 4.3 mmol/L (3.5-5.1)
[2017-02-11] MEDS ORDERED: IV DEXTROSE 5 %-0.45 % NACL 1,000 ML IV SCH (01:00)
[2017-02-11] MEDS: INSULIN ASPART 300 UNITS/3 ML INSULN.PEN SQ SCH ×12 (02:00→22:17)
[2017-02-11 02:38] LABS: CALCIUM 7.6 mg/dL (8.5-10.1); CREATININE 0.9 mg/dL (0.6-1.0); GFR 76.3; POTASSIUM 4.3 mmol/L (3.5-5.1)
[2017-02-11] MEDS ORDERED: IV NORMAL SALINE 1,000ML 1,000 ML IV ONE (03:00)
[2017-02-11 05:02] LABS: CALCIUM 7.3 mg/dL (8.5-10.1); CREATININE 0.9 mg/dL (0.6-1.0); GFR 76.3
[2017-02-11] MEDS ORDERED: IV DEXTROSE 5% - 0.9 % NACL 1,000 ML IV SCH (05:30)
[2017-02-11 06:44] LABS: CREATININE 0.7 mg/dL (0.6-1.0); POTASSIUM 3.6 mmol/L (3.5-5.1)
[2017-02-11 06:45] LABS: BASO # 0.1 x10^3/uL (0.0-0.2); BASO % 1 % (0-3); EOS % 0 % (0-3); HEMATOCRIT 32.6 % (36.0-47.0); HEMOGLOBIN 10.8 g/dL (12.0-15.5); LYMPH # 2.3 x10^3/uL (1.0-4.8); LYMPH % 30 % (24-48); MEAN CORPUSCULAR HEMOGLOBIN 30 pg (25-35); MEAN CORPUSCULAR HGB CONC 33 g/dL (31-37); MEAN CORPUSCULAR VOLUME 90 fL (79-100); MONO # 0.7 x10^3/uL (0.0-1.1); MONO % 9 % (0-9); NEUT # 4.5 x10^3uL (1.8-7.7); NEUT % 60 % (31-73); PLATELET COUNT 303 x10^3/uL (140-400); RED BLOOD COUNT 3.61 x10^6/uL (3.50-5.40); RED CELL DISTRIBUTION WIDTH 14.4 % (11.5-14.5); WHITE BLOOD COUNT 7.5 x10^3/uL (4.0-11.0)
[2017-02-11] MEDS: POTASSIUM CL 20MEQ D5-0.45NACL 1,000 ML IV SCH ×2 (07:14→13:59)
[2017-02-11] MEDS: PANTOPRAZOLE IV PUSH 40 MG VIAL. IVP SCH (07:19)
[2017-02-11 08:17] LABS: CALCIUM 7.2 mg/dL (8.5-10.1); CREATININE 0.8 mg/dL (0.6-1.0); GFR 87.4; POTASSIUM 3.6 mmol/L (3.5-5.1)
[2017-02-11] MEDS: ESCITALOPRAM 5 MG TABLET PO SCH (09:08)
--- NOTE | 2017-02-11 10:42 | PDOC1 ---
History of Present Illness Reason for Visit: Vomiting History of Present Illness Pt presented to ER w/ several days of vomiting. She has a hx of type 1 DM and has been unable to keep anything down. She denies fever, hematemesis, hemoptysis, cough, abdominal pain, fainting, chest pain, or SOA. She is well- known to our hospital as she has been admitted for DKA multiple times. This morning she states she feels much better and would like to try some solid food. She admits she has been using methamphetamines, but has been trying to stop them. Chief Complaint: BLOOD SUGAR PROBLEM Allergies: Coded Allergies: acetaminophen (Verified Allergy, Intermediate, HIVES, 11/27/16) "WHEN I HAD MY ANKLE BX THEY GAVE ME TYLENOL AND I GOT HIVES ON MY LEG." adhesive tape (Verified Allergy, Intermediate, 11/27/16) I S O L A T I O N *CONTACT* (Verified Allergy, Unknown, 11/27/16) +MRSA screen 11-03-16 Past Medical History Endocrine: Diabetes (Type 1) Past Surgical History: No pertinent history Family History: Other (Neg for DVT/PE) Past Social History Smoke: No Occupation: Unemployed Alcohol: none Drugs: Crystal meth Lives: with Family Domestic Violence: Neg Review of Systems Review Of Systems Fourteen system , review of systems has been reviewed. See HPI for pertinent positives and negative responses, other bustos all other systems are negative, non pertinent or non contributory Constitutional: No: Chills, Fever, Sweats, Weakness Eyes: No: Blurry vision, Double vision, Eye Pain ENT: No: Ear pain, Nose congestion Respiratory: No: Cough, Hemoptysis, SOB with excertion, Shortness of breath Cardiovascular: No: Chest Pain, Edema, Palpitations Gastrointestinal: YES: Nausea, Vomiting, No: Abdominal Pain, Constipation, Diarrhea, Hematochezia, Melena Genitourinary: No: Change in Menstrual Cycle, Dysuria, Henaturia Musculoskeletal: No: Muscle Pain, Muscular Weakness SKIN: YES: Dry, No Rashes, Warm Neurological: No: Confusion, Dizziness, Headaches, Memory Loss, Numbness/ Tingling, Tremors Allergies: Coded Allergies: acetaminophen (Verified Allergy, Intermediate, HIVES, 11/27/16) "WHEN I HAD MY ANKLE BX THEY GAVE ME TYLENOL AND I GOT HIVES ON MY LEG." adhesive tape (Verified Allergy, Intermediate, 11/27/16) I S O L A T I O N *CONTACT* (Verified Allergy, Unknown, 11/27/16) +MRSA screen 11-03-16 Medications Current Medications Sodium Chloride (Iv Sodium Chloride 0.9% 1,000ml) 1,000 ml @ 1,000 mls/hr 1X ONCE IV Last administered on 02/10/17 15:45; Start 02/10/17 at 16:00; Stop at 16:59; Status DC Ondansetron HCl 4 mg 4 mg 1X ONCE IV Last administered on 02/10/17 15:46; Start 02/10/17 at 16:00; Stop 02/10/17 at 16:01; Status DC Insulin Human Regular/Sodium Chloride (Novolin R/Iv Normal Saline 150ml) 151.5 ml @ 0 mls/hr 1X ONCE IV ; Start 02/10/17 at 16:30; Stop 02/10/17 at 16:31; Status DC Insulin Human Regular 5 unit 5 unit 1X ONCE IV Last administered on 02/10/17 16:02; Start 02/10/17 at 16:00; Stop 02/10/17 at 16:01; Status DC Sodium Chloride 1,000 ml @ 1,000 mls/hr 1X ONCE IV Last administered on 16:00; Start 02/10/17 at 16:00; Stop 02/10/17 at 16:59; Status DC Sodium Chloride (Iv Sodium Chloride 0.9% 1,000ml) 1,000 ml @ 0 mls/hr Q0M IV Last administered on 02/10/17 19:51; Start 02/10/17 at 17:45 Insulin Aspart (Novolog) 0-9 UNITS Q2HR SQ Last administered on 02/10/17 20:19 ; Start 02/10/17 at 18:00 Dextrose 12.5 gm PRN Q15MIN PRN IV SEE COMMENTS Last administered on 02/10/17 23:59; Start 02/10/17 at 17:45 Sodium Chloride (Normal Saline Flush) 3 ml PRN DAILY PRN IV AFTER MEDS AND BLOOD DRAWS; Start 02/10/17 at 17:45 Calcium Carbonate/ Glycine (Tums) 500 mg PRN Q3HRS PRN PO HEARTBURN / GAS; Start 02/10/17 at 17:45 Enoxaparin Sodium (Lovenox) 40 mg Q24H SQ Last administered on 02/10/17 18:14 ; Start 02/10/17 at 18:00 Prochlorperazine Edisylate (Compazine) 10 mg PRN Q4HRS PRN IV NAUSEA/VOMITING; Start 02/10/17 at 17:45; Stop 02/10/17 at 17:45; Status DC Escitalopram Oxalate (Lexapro) 5 mg DAILY PO Last administered on 02/11/17 09: 08; Start 02/11/17 at 09:00 Pantoprazole Sodium (Protonix Vial) 40 mg DAILYAC IVP Last administered on 02/11 07:19; Start 02/11/17 at 07:30 Metoclopramide HCl (Reglan) 5 mg PRN Q6HRS PRN IV NAUSEA/VOMITING Last administered on 02/10/17 19:13; Start 02/10/17 at 17:45 Ondansetron HCl (Zofran) 4 mg PRN Q6HRS PRN IV NAUSEA/VOMITING; Start 02/10/17 at 17:45 Promethazine HCl 12.5 mg 12.5 mg PRN Q6HRS PRN [place] NAUSEA/VOMITING; Start at 17:45; Stop 02/10/17 at 17:52; Status DC Insulin Human Regular 150 unit/ Sodium Chloride 151.5 ml @ 0 mls/hr CONT PRN IV SEE I/O RECORD Last administered on 02/10/17 20:51; Start 02/10/17 at 20:45 Sodium Chloride 1,000 ml @ 1,000 mls/hr 1X ONCE IV Last administered on 21:37; Start 02/10/17 at 21:45; Stop 02/10/17 at 22:44; Status DC Sodium Chloride 1,000 ml @ 500 mls/hr 1X ONCE IV Last administered on 22:45; Start 02/10/17 at 22:45; Stop 02/10/17 at 22:49; Status DC Sodium Chloride 1,000 ml @ 500 mls/hr 1X ONCE IV Last administered on 22:55; Start 02/10/17 at 23:00; Stop 02/11/17 at 00:59; Status DC Dextrose/Sodium Chloride 1,000 ml @ 200 mls/hr Q5H IV Last administered on 01:01; Start 02/11/17 at 01:00; Stop 02/11/17 at 05:19; Status DC Sodium Chloride 1,000 ml @ 500 mls/hr 1X ONCE IV Last administered on 02:57; Start 02/11/17 at 03:00; Stop 02/11/17 at 05:06; Status DC Dextrose/Sodium Chloride 1,000 ml @ 200 mls/hr Q5H IV Last administered on 05:22; Start 02/11/17 at 05:30; Stop 02/11/17 at 07:36; Status DC Potassium Chloride/Dextrose/ Sod Cl (KCl 20 Meq In D5W-1/2 NS) 1,000 ml @ 150 mls/hr Q6H40M IV Last administered on 02/11/17 07:14; Start 02/11/17 at 07:00 Active Scripts Active Phenergan (Promethazine HCl) 25 Mg Supp.rect 25 Mg RC Q6HRS PRN Escitalopram Oxalate 5 Mg Tablet 5 Mg PO DAILY Lantus Solostar (Insulin Glargine,Hum.rec.anlog) 100 Unit/1 Ml Insuln.pen 14 Unit SQ BID Novolog Flexpen (Insulin Aspart) 100 Unit/1 Ml Insuln.pen 14 Unit SQ QIDAFTMEAL Magnesium Oxide 400 Mg Tablet 1 Tab PO TID Metoclopramide Hcl 5 Mg Tablet 10 Mg PO QIDACHS Tramadol Hcl (Tramadol HCl) 50 Mg Tablet 50 Mg PO PRN Q6HRS PRN Pantoprazole Sodium 40 Mg Tablet.dr 40 Mg PO DAILYAC Novolog Flexpen (Insulin Aspart) 100 Unit/1 Ml Insuln.pen 0-9 Unit SQ ACHS FOLLOW SUPPLEMENTAL SCALE GIVEN TO YOU Exam Vital Signs Vital Signs Date Time Temp Pulse Resp B/P Pulse Ox O2 Delivery O2 Flow Rate FiO2 02/11/17 10:15 102 24 105/61 97 Room Air 02/10/17 20:08 98.3 General Appearance: Alert, Oriented X3, Cooperative, No acute distress HEENT: Atraumatic, PERRLA, EOMI, Mucous membr. moist/pink, Other (Neck supple, no JVD, no LAD, no thyromegaly) Respiratory: Clear to auscultation, Normal air movement Heart: Regular rate, Normal S1, Normal S2, No murmurs Abdominal: Normal bowel sounds, Soft, No tenderness, No hepatospenomegaly, No masses Extremities: No edema, Normal pulses, No tenderness/swelling Skin: No rashes (multiple tattooes) Neuro: Normal speech, Strength at 5/5 X4 ext, Normal tone, Sensation intact, Cranial nerves 3-12 NL, Reflexes 2+ Psych/Mental Status: Mental status NL, Mood NL Assessment/Plan Assessment/Plan 1. Diabetic ketoacidosis: Pt was very dry. She has now had about 8 liters of IVF, and things are improving. She wants to eat. We will stop the q2 hr BMP's and get one at 4 pm. Stop insulin drip if tolerating food and transition to SSI at meals and Lantus at bedtime. Hopeful for d/c tomorrow. 2. Meth abuse: Pt encouraged to check in to drug rehab facility at discharge to try to get off, as this will continue to happen as long as she uses it. 3. MRSA +: Bactroban x 5 days, isolation. 4. DVT proph: Lovenox. COURSE Allergies Coded Allergies Type Severity Reaction Last Updated Verified acetaminophen Allergy Intermediate HIVES 11/27/16 Yes adhesive tape Allergy Intermediate 11/27/16 Yes I S O L A T I O N *CONTACT* Allergy Unknown 11/27/16 Yes Laboratory Tests Test 02/10/17 15:01 02/10/17 15:10 02/10/17 16:35 02/10/17 16:39 Glucose (Fingerstick) 384mg/dL (70-99) 306mg/dL (70-99) White Blood Count 5.6x10^3/uL (4.0-11.0) Red Blood Count 4.83x10^6/uL (3.50-5.40) Hemoglobin 14.5g/dL (12.0-15.5) Hematocrit 45.6% (36.0-47.0) Mean Corpuscular Volume 94fL (79-100) Mean Corpuscular Hemoglobin 30pg (25-35) Mean Corpuscular Hemoglobin Concent 32g/dL (31-37) Red Cell Distribution Width 14.9% (11.5-14.5) Platelet Count 409x10^3/uL (140-400) Neutrophils (%) (Auto) 69% (31-73) Lymphocytes (%) (Auto) 24% (24-48) Monocytes (%) (Auto) 6% (0-9) Eosinophils (%) (Auto) 0% (0-3) Basophils (%) (Auto) 1% (0-3) Neutrophils # (Auto) 3.9x10^3uL (1.8-7.7) Lymphocytes # (Auto) 1.4x10^3/uL (1.0-4.8) Monocytes # (Auto) 0.3x10^3/uL (0.0-1.1) Eosinophils # (Auto) 0.0x10^3/uL (0.0-0.7) Basophils # (Auto) 0.1x10^3/uL (0.0-0.2) Sodium Level 131mmol/L (136-145) Potassium Level 5.2mmol/L (3.5-5.1) Chloride Level 97mmol/L (98-107) Carbon Dioxide Level 8mmol/L (21-32) Anion Gap 26 (6-14) Blood Urea Nitrogen 18mg/dL (7-20) Creatinine 1.1mg/dL (0.6-1.0) Estimated GFR (Cockcroft-Gault) 60.5 BUN/Creatinine Ratio 16 (6-20) Glucose Level 376mg/dL (70-99) Calcium Level 8.8mg/dL (8.5-10.1) Total Bilirubin 0.5mg/dL (0.2-1.0) Aspartate Amino Transf (AST/SGOT) 12U/L (15-37) Alanine Aminotransferase (ALT/SGPT) 19U/L (14-59) Alkaline Phosphatase 108U/L (46-116) Total Protein 7.9g/dL (6.4-8.2) Albumin 3.6g/dL (3.4-5.0) Albumin/Globulin Ratio 0.8 (1.0-1.7) Acetone Level Sm pos (NEG) O2 Saturation 97% (92-99) Arterial Blood pH 7.10 (7.35-7.45) Arterial Blood pH (Temp corrected) 7.10 Arterial Blood pCO2 at Patient Temp 17mmHg (35-46) Arterial Blood pCO2 (Temp correct) 17mmHg Arterial Blood pO2 at Patient Temp 120mmHg (85-108) Arterial Blood pO2 (Temp corrected) 120mmHg Arterial Blood HCO3 5mmol/L (21-28) Arterial Blood Base Excess -23mmol/L (-3-3) FiO2 Ra Test 02/10/17 17:59 02/10/17 18:00 02/10/17 18:02 02/10/17 19:00 Glucose (Fingerstick) 314mg/dL (70-99) Nasal Screen MRSA (PCR) Positive (Negative) Sodium Level 133mmol/L (136-145) Potassium Level 5.2mmol/L (3.5-5.1) Chloride Level 102mmol/L (98-107) Carbon Dioxide Level 7mmol/L (21-32) Anion Gap 24 (6-14) Blood Urea Nitrogen 18mg/dL (7-20) Creatinine 1.0mg/dL (0.6-1.0) Estimated GFR (Cockcroft-Gault) 67.6 Glucose Level 314mg/dL (70-99) Calcium Level 8.0mg/dL (8.5-10.1) Urine Collection Type Unknown Urine Color Straw Urine Clarity Clear Urine pH 5.0 Urine Specific [place] 1.025 Urine Protein 100 mg/dl (NEG-TRACE) Urine Glucose (UA) 500mg/dL (NEG) Urine Ketones (Stick) >=160mg/dL (NEG) Urine Blood Trace (NEG) Urine Nitrite Neg (NEG) Urine Bilirubin Neg (NEG) Urine Urobilinogen Dipstick 0.2mg/dL (0.2 mg/dL) Urine Leukocyte Esterase Neg (NEG) Urine RBC Occ/HPF (0-2) Urine WBC 1-4/HPF (0-4) Urine Squamous Epithelial Cells Occ/LPF Urine Bacteria Few/HPF (0-FEW) Urine Mucus Slight/LPF Urine Opiates Screen Neg (NEG) Urine Methadone Screen Neg (NEG) Urine Barbiturates Neg (NEG) Urine Phencyclidine Screen Neg (NEG) Urine Amphetamine/Methamphetamine Pos (NEG) Urine Benzodiazepines Screen Neg (NEG) Urine Cocaine Screen Neg (NEG) Urine Cannabinoids Screen Neg (NEG) Urine Ethyl Alcohol Neg (NEG) Test 02/10/17 19:57 02/10/17 20:08 02/10/17 20:43 02/10/17 20:45 Glucose (Fingerstick) 266mg/dL (70-99) 226mg/dL (70-99) Sodium Level 133mmol/L (136-145) Potassium Level 5.5mmol/L (3.5-5.1) Chloride Level 102mmol/L (98-107) Carbon Dioxide Level 6mmol/L (21-32) Anion Gap 25 (6-14) Blood Urea Nitrogen 17mg/dL (7-20) Creatinine 1.1mg/dL (0.6-1.0) Estimated GFR (Cockcroft-Gault) 60.5 Glucose Level 279mg/dL (70-99) Calcium Level 7.7mg/dL (8.5-10.1) Blood Gas pH 7.05 (7.35-7.45) Blood Gas PCO2 14mmHg (35-45) Blood Gas PO2 112mmHg (80-100) Blood Gas HCO3 4mmol/L (22-26) Arterial Bld O2 Saturation (Calc) 96% (92-99) FiO2 21% Test 02/10/17 21:46 02/10/17 22:02 02/10/17 22:47 02/10/17 23:51 Glucose (Fingerstick) 166mg/dL (70-99) 100mg/dL (70-99) 69mg/dL (70-99) Sodium Level 136mmol/L (136-145) Potassium Level 4.5mmol/L (3.5-5.1) Chloride Level 105mmol/L (98-107) Carbon Dioxide Level 7mmol/L (21-32) Anion Gap 24 (6-14) Blood Urea Nitrogen 14mg/dL (7-20) Creatinine 1.0mg/dL (0.6-1.0) Estimated GFR (Cockcroft-Gault) 67.6 Glucose Level 160mg/dL (70-99) Calcium Level 7.6mg/dL (8.5-10.1) Test 02/11/17 00:08 02/11/17 00:25 02/11/17 01:09 02/11/17 02:12 Glucose (Fingerstick) 95mg/dL (70-99) 103mg/dL (70-99) 165mg/dL (70-99) Sodium Level 137mmol/L (136-145) Potassium Level 4.3mmol/L (3.5-5.1) Chloride Level 106mmol/L (98-107) Carbon Dioxide Level 9mmol/L (21-32) Anion Gap 22 (6-14) Blood Urea Nitrogen 11mg/dL (7-20) Creatinine 0.9mg/dL (0.6-1.0) Estimated GFR (Cockcroft-Gault) 76.3 Glucose Level 102mg/dL (70-99) Calcium Level 7.3mg/dL (8.5-10.1) Test 02/11/17 02:20 02/11/17 03:15 02/11/17 04:15 02/11/17 04:24 Sodium Level 134mmol/L (136-145) 134mmol/L (136-145) Potassium Level 4.3mmol/L (3.5-5.1) 4.0mmol/L (3.5-5.1) Chloride Level 104mmol/L (98-107) 104mmol/L (98-107) Carbon Dioxide Level 8mmol/L (21-32) 9mmol/L (21-32) Anion Gap 22 (6-14) 21 (6-14) Blood Urea Nitrogen 9mg/dL (7-20) 9mg/dL (7-20) Creatinine 0.9mg/dL (0.6-1.0) 0.9mg/dL (0.6-1.0) Estimated GFR (Cockcroft-Gault) 76.3 76.3 Glucose Level 186mg/dL (70-99) 219mg/dL (70-99) Calcium Level 7.6mg/dL (8.5-10.1) 7.3mg/dL (8.5-10.1) Glucose (Fingerstick) 219mg/dL (70-99) 208mg/dL (70-99) Test 02/11/17 05:29 02/11/17 06:15 02/11/17 06:28 02/11/17 07:27 Glucose (Fingerstick) 158mg/dL (70-99) 171mg/dL (70-99) 161mg/dL (70-99) White Blood Count 7.5x10^3/uL (4.0-11.0) Red Blood Count 3.61x10^6/uL (3.50-5.40) Hemoglobin 10.8g/dL (12.0-15.5) Hematocrit 32.6% (36.0-47.0) Mean Corpuscular Volume 90fL (79-100) Mean Corpuscular Hemoglobin 30pg (25-35) Mean Corpuscular Hemoglobin Concent 33g/dL (31-37) Red Cell Distribution Width 14.4% (11.5-14.5) Platelet Count 303x10^3/uL (140-400) Neutrophils (%) (Auto) 60% (31-73) Lymphocytes (%) (Auto) 30% (24-48) Monocytes (%) (Auto) 9% (0-9) Eosinophils (%) (Auto) 0% (0-3) Basophils (%) (Auto) 1% (0-3) Neutrophils # (Auto) 4.5x10^3uL (1.8-7.7) Lymphocytes # (Auto) 2.3x10^3/uL (1.0-4.8) Monocytes # (Auto) 0.7x10^3/uL (0.0-1.1) Eosinophils # (Auto) 0.0x10^3/uL (0.0-0.7) Basophils # (Auto) 0.1x10^3/uL (0.0-0.2) Sodium Level 137mmol/L (136-145) Potassium Level 3.6mmol/L (3.5-5.1) Chloride Level 109mmol/L (98-107) Carbon Dioxide Level 11mmol/L (21-32) Anion Gap 17 (6-14) Blood Urea Nitrogen 7mg/dL (7-20) Creatinine 0.7mg/dL (0.6-1.0) Estimated GFR (Cockcroft-Gault) 102.0 Glucose Level 177mg/dL (70-99) Calcium Level 7.1mg/dL (8.5-10.1) Test 02/11/17 08:00 02/11/17 08:29 02/11/17 09:29 02/11/17 10:30 Sodium Level 138mmol/L (136-145) Potassium Level 3.6mmol/L (3.5-5.1) Chloride Level 109mmol/L (98-107) Carbon Dioxide Level 13mmol/L (21-32) Anion Gap 16 (6-14) Blood Urea Nitrogen 7mg/dL (7-20) Creatinine 0.8mg/dL (0.6-1.0) Estimated GFR (Cockcroft-Gault) 87.4 Glucose Level 165mg/dL (70-99) Calcium Level 7.2mg/dL (8.5-10.1) Glucose (Fingerstick) 175mg/dL (70-99) 176mg/dL (70-99) 154mg/dL (70-99) Current Medications Medications (Trade) Dose Ordered Sig/Chevy Route PRN Reason Start Time Stop Time Status Last Admin Dose Admin Sodium Chloride (Iv Sodium Chloride 0.9% 1,000ml) 1,000 ml @ 1,000 mls/hr 1X ONCE IV 02/10/17 16:00 02/10/17 16:59 DC 02/10/17 15:45 Ondansetron HCl 4 mg 4 mg 1X ONCE IV 02/10/17 16:00 02/10/17 16:01 DC 02/10/17 15:46 Insulin Human Regular/Sodium Chloride (Novolin R/Iv Normal Saline 150ml) 151.5 ml @ 0 mls/hr 1X ONCE IV 02/10/17 16:30 02/10/17 16:31 DC Insulin Human Regular 5 unit 5 unit 1X ONCE IV 02/10/17 16:00 02/10/17 16:01 DC 02/10/17 16:02 Sodium Chloride 1,000 ml @ 1,000 mls/hr 1X ONCE IV 02/10/17 16:00 02/10/17 16:59 DC 02/10/17 16:00 Sodium Chloride (Iv Sodium Chloride 0.9% 1,000ml) 1,000 ml @ 0 mls/hr Q0M IV 02/10/17 17:45 02/10/17 19:51 Insulin Aspart (Novolog) 0-9 UNITS Q2HR SQ 02/10/17 18:00 02/10/17 20:19 Dextrose 12.5 gm PRN Q15MIN PRN IV SEE COMMENTS 02/10/17 17:45 02/10/17 23:59 Sodium Chloride (Normal Saline Flush) 3 ml PRN DAILY PRN IV AFTER MEDS AND BLOOD DRAWS 02/10/17 17:45 Calcium Carbonate/ Glycine (Tums) 500 mg PRN Q3HRS PRN PO HEARTBURN / GAS 02/10/17 17:45 Enoxaparin Sodium (Lovenox) 40 mg Q24H SQ 02/10/17 18:00 02/10/17 18:14 Prochlorperazine Edisylate (Compazine) 10 mg PRN Q4HRS PRN IV NAUSEA/VOMITING 02/10/17 17:45 02/10/17 17:45 DC Escitalopram Oxalate (Lexapro) 5 mg DAILY PO 02/11/17 09:00 02/11/17 09:08 Pantoprazole Sodium (Protonix Vial) 40 mg DAILYAC IVP 02/11/17 07:30 02/11/17 07:19 Metoclopramide HCl (Reglan) 5 mg PRN Q6HRS PRN IV NAUSEA/VOMITING 02/10/17 17:45 02/10/17 19:13 Ondansetron HCl (Zofran) 4 mg PRN Q6HRS PRN IV NAUSEA/VOMITING 02/10/17 17:45 Promethazine HCl 12.5 mg 12.5 mg PRN Q6HRS PRN [place] NAUSEA/VOMITING 02/10/17 17:45 02/10/17 17:52 DC Insulin Human Regular 150 unit/ Sodium Chloride 151.5 ml @ 0 mls/hr CONT PRN IV SEE I/O RECORD 02/10/17 20:45 02/10/17 20:51 Sodium Chloride 1,000 ml @ 1,000 mls/hr 1X ONCE IV 02/10/17 21:45 02/10/17 22:44 DC 02/10/17 21:37 Sodium Chloride 1,000 ml @ 500 mls/hr 1X ONCE IV 02/10/17 22:45 02/10/17 22:49 DC 02/10/17 22:45 Sodium Chloride 1,000 ml @ 500 mls/hr 1X ONCE IV 02/10/17 23:00 02/11/17 00:59 DC 02/10/17 22:55 Dextrose/Sodium Chloride 1,000 ml @ 200 mls/hr Q5H IV 02/11/17 01:00 02/11/17 05:19 DC 02/11/17 01:01 Sodium Chloride 1,000 ml @ 500 mls/hr 1X ONCE IV 02/11/17 03:00 02/11/17 05:06 DC 02/11/17 02:57 Dextrose/Sodium Chloride 1,000 ml @ 200 mls/hr Q5H IV 02/11/17 05:30 02/11/17 07:36 DC 02/11/17 05:22 Potassium Chloride/Dextrose/ Sod Cl (KCl 20 Meq In D5W-1/2 NS) 1,000 ml @ 150 mls/hr Q6H40M IV 02/11/17 07:00 02/11/17 07:14 I & O 02/11/17 00:00 Intake Total 3837.53 ml Output Total 900 ml Balance 2937.53 ml Vital Signs Date Time Temp Pulse Resp B/P Pulse Ox O2 Delivery O2 Flow Rate FiO2 02/11/17 10:15 102 24 105/61 97 Room Air 02/10/17 20:08 98.3 GABRIELLA CASTANEDA MD Feb 11, 2017 10:41
[2017-02-11] MEDS ORDERED: KETOROLAC 15 MG/ML VIAL. IV PRN (12:00)
[2017-02-11 16:26] LABS: CALCIUM 7.3 mg/dL (8.5-10.1); CREATININE 0.7 mg/dL (0.6-1.0); POTASSIUM 3.8 mmol/L (3.5-5.1)
[2017-02-11] MEDS: MUPIROCIN 2% TOPICAL OINTMENT 22GM TUBE. TP SCH (20:18)
[2017-02-11] MEDS ORDERED: INSULIN DETEMIR 300 UNITS/3 ML INSULN.PEN. SQ SCH (21:00)
[2017-02-12] VITALS (13 sets, daily range): BP systolic 99–140; BP diastolic 65–90
[2017-02-12] MEDS: INSULIN ASPART 300 UNITS/3 ML INSULN.PEN SQ SCH ×7 (01:46→12:00)
[2017-02-12] MEDS: PANTOPRAZOLE IV PUSH 40 MG VIAL. IVP SCH (07:37)
[2017-02-12] MEDS: MUPIROCIN 2% TOPICAL OINTMENT 22GM TUBE. TP SCH (08:37)
[2017-02-12] MEDS: ESCITALOPRAM 5 MG TABLET PO SCH (08:37)
[2017-02-12 08:39] LABS: CALCIUM 7.8 mg/dL (8.5-10.1); CREATININE 0.6 mg/dL (0.6-1.0); GFR 121.8; POTASSIUM 3.4 mmol/L (3.5-5.1)
[2017-02-12] MEDS ORDERED: POTASSIUM CHLORIDE 20 MEQ TABLET.ER. PO ONE (10:00)
[2017-02-12] MEDS ORDERED: MUPI22OI2 TP (10:45)
--- NOTE | 2017-02-12 10:48 | DISCH ---
DISCHARGE INSTRUCTIONS-DC Condition on Discharge Condition on Discharge: Stable Problems: Activity after Discharge Activity Instructions for Disc: Activity as tolerated Diet after Discharge Diet after Discharge: Diabetic No Calorie Level Checks after Discharge Checks after discharge: Check blood sugar, ac/hs Contacting the DR. after DC Call your doctor for: If your condition worsens Follow-Up Follow up with: PCP in 1-2 weeks GABRIELLA CASTANEDA MD Feb 12, 2017 10:48
--- NOTE | 2017-02-12 10:56 | PDOC3 ---
Discharge Summary Discharge Summary Date of Admission Date of Admission: Feb 10, 2017 at 16:16 Admitting Diagnosis DKA Date of Discharge: Feb 12, 2017 Discharge Diagnosis DKA Methamphetamine abuse Type 1 DM Laboratory Findings Laboratory Tests Test 02/10/17 15:01 02/10/17 15:10 02/10/17 16:35 02/10/17 16:39 Glucose (Fingerstick) 384mg/dL (70-99) 306mg/dL (70-99) White Blood Count 5.6x10^3/uL (4.0-11.0) Red Blood Count 4.83x10^6/uL (3.50-5.40) Hemoglobin 14.5g/dL (12.0-15.5) Hematocrit 45.6% (36.0-47.0) Mean Corpuscular Volume 94fL (79-100) Mean Corpuscular Hemoglobin 30pg (25-35) Mean Corpuscular Hemoglobin Concent 32g/dL (31-37) Red Cell Distribution Width 14.9% (11.5-14.5) Platelet Count 409x10^3/uL (140-400) Neutrophils (%) (Auto) 69% (31-73) Lymphocytes (%) (Auto) 24% (24-48) Monocytes (%) (Auto) 6% (0-9) Eosinophils (%) (Auto) 0% (0-3) Basophils (%) (Auto) 1% (0-3) Neutrophils # (Auto) 3.9x10^3uL (1.8-7.7) Lymphocytes # (Auto) 1.4x10^3/uL (1.0-4.8) Monocytes # (Auto) 0.3x10^3/uL (0.0-1.1) Eosinophils # (Auto) 0.0x10^3/uL (0.0-0.7) Basophils # (Auto) 0.1x10^3/uL (0.0-0.2) Sodium Level 131mmol/L (136-145) Potassium Level 5.2mmol/L (3.5-5.1) Chloride Level 97mmol/L (98-107) Carbon Dioxide Level 8mmol/L (21-32) Anion Gap 26 (6-14) Blood Urea Nitrogen 18mg/dL (7-20) Creatinine 1.1mg/dL (0.6-1.0) Estimated GFR (Cockcroft-Gault) 60.5 BUN/Creatinine Ratio 16 (6-20) Glucose Level 376mg/dL (70-99) Calcium Level 8.8mg/dL (8.5-10.1) Total Bilirubin 0.5mg/dL (0.2-1.0) Aspartate Amino Transf (AST/SGOT) 12U/L (15-37) Alanine Aminotransferase (ALT/SGPT) 19U/L (14-59) Alkaline Phosphatase 108U/L (46-116) Total Protein 7.9g/dL (6.4-8.2) Albumin 3.6g/dL (3.4-5.0) Albumin/Globulin Ratio 0.8 (1.0-1.7) Acetone Level Sm pos (NEG) O2 Saturation 97% (92-99) Arterial Blood pH 7.10 (7.35-7.45) Arterial Blood pH (Temp corrected) 7.10 Arterial Blood pCO2 at Patient Temp 17mmHg (35-46) Arterial Blood pCO2 (Temp correct) 17mmHg Arterial Blood pO2 at Patient Temp 120mmHg (85-108) Arterial Blood pO2 (Temp corrected) 120mmHg Arterial Blood HCO3 5mmol/L (21-28) Arterial Blood Base Excess -23mmol/L (-3-3) FiO2 Ra Test 02/10/17 17:59 02/10/17 18:00 02/10/17 18:02 02/10/17 19:00 Glucose (Fingerstick) 314mg/dL (70-99) Nasal Screen MRSA (PCR) Positive (Negative) Sodium Level 133mmol/L (136-145) Potassium Level 5.2mmol/L (3.5-5.1) Chloride Level 102mmol/L (98-107) Carbon Dioxide Level 7mmol/L (21-32) Anion Gap 24 (6-14) Blood Urea Nitrogen 18mg/dL (7-20) Creatinine 1.0mg/dL (0.6-1.0) Estimated GFR (Cockcroft-Gault) 67.6 Glucose Level 314mg/dL (70-99) Calcium Level 8.0mg/dL (8.5-10.1) Urine Collection Type Unknown Urine Color Straw Urine Clarity Clear Urine pH 5.0 Urine Specific Pettus 1.025 Urine Protein 100 mg/dl (NEG-TRACE) Urine Glucose (UA) 500mg/dL (NEG) Urine Ketones (Stick) >=160mg/dL (NEG) Urine Blood Trace (NEG) Urine Nitrite Neg (NEG) Urine Bilirubin Neg (NEG) Urine Urobilinogen Dipstick 0.2mg/dL (0.2 mg/dL) Urine Leukocyte Esterase Neg (NEG) Urine RBC Occ/HPF (0-2) Urine WBC 1-4/HPF (0-4) Urine Squamous Epithelial Cells Occ/LPF Urine Bacteria Few/HPF (0-FEW) Urine Mucus Slight/LPF Urine Opiates Screen Neg (NEG) Urine Methadone Screen Neg (NEG) Urine Barbiturates Neg (NEG) Urine Phencyclidine Screen Neg (NEG) Urine Amphetamine/Methamphetamine Pos (NEG) Urine Benzodiazepines Screen Neg (NEG) Urine Cocaine Screen Neg (NEG) Urine Cannabinoids Screen Neg (NEG) Urine Ethyl Alcohol Neg (NEG) Test 02/10/17 19:57 02/10/17 20:08 02/10/17 20:43 02/10/17 20:45 Glucose (Fingerstick) 266mg/dL (70-99) 226mg/dL (70-99) Sodium Level 133mmol/L (136-145) Potassium Level 5.5mmol/L (3.5-5.1) Chloride Level 102mmol/L (98-107) Carbon Dioxide Level 6mmol/L (21-32) Anion Gap 25 (6-14) Blood Urea Nitrogen 17mg/dL (7-20) Creatinine 1.1mg/dL (0.6-1.0) Estimated GFR (Cockcroft-Gault) 60.5 Glucose Level 279mg/dL (70-99) Calcium Level 7.7mg/dL (8.5-10.1) Blood Gas pH 7.05 (7.35-7.45) Blood Gas PCO2 14mmHg (35-45) Blood Gas PO2 112mmHg (80-100) Blood Gas HCO3 4mmol/L (22-26) Arterial Bld O2 Saturation (Calc) 96% (92-99) FiO2 21% Test 02/10/17 21:46 02/10/17 22:02 02/10/17 22:47 02/10/17 23:51 Glucose (Fingerstick) 166mg/dL (70-99) 100mg/dL (70-99) 69mg/dL (70-99) Sodium Level 136mmol/L (136-145) Potassium Level 4.5mmol/L (3.5-5.1) Chloride Level 105mmol/L (98-107) Carbon Dioxide Level 7mmol/L (21-32) Anion Gap 24 (6-14) Blood Urea Nitrogen 14mg/dL (7-20) Creatinine 1.0mg/dL (0.6-1.0) Estimated GFR (Cockcroft-Gault) 67.6 Glucose Level 160mg/dL (70-99) Calcium Level 7.6mg/dL (8.5-10.1) Test 02/11/17 00:08 02/11/17 00:25 02/11/17 01:09 02/11/17 02:12 Glucose (Fingerstick) 95mg/dL (70-99) 103mg/dL (70-99) 165mg/dL (70-99) Sodium Level 137mmol/L (136-145) Potassium Level 4.3mmol/L (3.5-5.1) Chloride Level 106mmol/L (98-107) Carbon Dioxide Level 9mmol/L (21-32) Anion Gap 22 (6-14) Blood Urea Nitrogen 11mg/dL (7-20) Creatinine 0.9mg/dL (0.6-1.0) Estimated GFR (Cockcroft-Gault) 76.3 Glucose Level 102mg/dL (70-99) Calcium Level 7.3mg/dL (8.5-10.1) Test 02/11/17 02:20 02/11/17 03:15 02/11/17 04:15 02/11/17 04:24 Sodium Level 134mmol/L (136-145) 134mmol/L (136-145) Potassium Level 4.3mmol/L (3.5-5.1) 4.0mmol/L (3.5-5.1) Chloride Level 104mmol/L (98-107) 104mmol/L (98-107) Carbon Dioxide Level 8mmol/L (21-32) 9mmol/L (21-32) Anion Gap 22 (6-14) 21 (6-14) Blood Urea Nitrogen 9mg/dL (7-20) 9mg/dL (7-20) Creatinine 0.9mg/dL (0.6-1.0) 0.9mg/dL (0.6-1.0) Estimated GFR (Cockcroft-Gault) 76.3 76.3 Glucose Level 186mg/dL (70-99) 219mg/dL (70-99) Calcium Level 7.6mg/dL (8.5-10.1) 7.3mg/dL (8.5-10.1) Glucose (Fingerstick) 219mg/dL (70-99) 208mg/dL (70-99) Test 02/11/17 05:29 02/11/17 06:15 02/11/17 06:28 02/11/17 07:27 Glucose (Fingerstick) 158mg/dL (70-99) 171mg/dL (70-99) 161mg/dL (70-99) White Blood Count 7.5x10^3/uL (4.0-11.0) Red Blood Count 3.61x10^6/uL (3.50-5.40) Hemoglobin 10.8g/dL (12.0-15.5) Hematocrit 32.6% (36.0-47.0) Mean Corpuscular Volume 90fL (79-100) Mean Corpuscular Hemoglobin 30pg (25-35) Mean Corpuscular Hemoglobin Concent 33g/dL (31-37) Red Cell Distribution Width 14.4% (11.5-14.5) Platelet Count 303x10^3/uL (140-400) Neutrophils (%) (Auto) 60% (31-73) Lymphocytes (%) (Auto) 30% (24-48) Monocytes (%) (Auto) 9% (0-9) Eosinophils (%) (Auto) 0% (0-3) Basophils (%) (Auto) 1% (0-3) Neutrophils # (Auto) 4.5x10^3uL (1.8-7.7) Lymphocytes # (Auto) 2.3x10^3/uL (1.0-4.8) Monocytes # (Auto) 0.7x10^3/uL (0.0-1.1) Eosinophils # (Auto) 0.0x10^3/uL (0.0-0.7) Basophils # (Auto) 0.1x10^3/uL (0.0-0.2) Sodium Level 137mmol/L (136-145) Potassium Level 3.6mmol/L (3.5-5.1) Chloride Level 109mmol/L (98-107) Carbon Dioxide Level 11mmol/L (21-32) Anion Gap 17 (6-14) Blood Urea Nitrogen 7mg/dL (7-20) Creatinine 0.7mg/dL (0.6-1.0) Estimated GFR (Cockcroft-Gault) 102.0 Glucose Level 177mg/dL (70-99) Calcium Level 7.1mg/dL (8.5-10.1) Test 02/11/17 08:00 02/11/17 08:29 02/11/17 09:29 02/11/17 10:30 Sodium Level 138mmol/L (136-145) Potassium Level 3.6mmol/L (3.5-5.1) Chloride Level 109mmol/L (98-107) Carbon Dioxide Level 13mmol/L (21-32) Anion Gap 16 (6-14) Blood Urea Nitrogen 7mg/dL (7-20) Creatinine 0.8mg/dL (0.6-1.0) Estimated GFR (Cockcroft-Gault) 87.4 Glucose Level 165mg/dL (70-99) Calcium Level 7.2mg/dL (8.5-10.1) Glucose (Fingerstick) 175mg/dL (70-99) 176mg/dL (70-99) 154mg/dL (70-99) Test 02/11/17 11:32 02/11/17 13:30 02/11/17 16:02 02/11/17 16:04 Glucose (Fingerstick) 138mg/dL (70-99) 155mg/dL (70-99) 241mg/dL (70-99) Sodium Level 136mmol/L (136-145) Potassium Level 3.8mmol/L (3.5-5.1) Chloride Level 107mmol/L (98-107) Carbon Dioxide Level 16mmol/L (21-32) Anion Gap 13 (6-14) Blood Urea Nitrogen 4mg/dL (7-20) Creatinine 0.7mg/dL (0.6-1.0) Estimated GFR (Cockcroft-Gault) 102.0 Glucose Level 258mg/dL (70-99) Calcium Level 7.3mg/dL (8.5-10.1) Test 02/11/17 18:08 02/11/17 20:14 02/11/17 22:13 02/12/17 01:42 Glucose (Fingerstick) 282mg/dL (70-99) 265mg/dL (70-99) 260mg/dL (70-99) 166mg/dL (70-99) Test 02/12/17 05:56 02/12/17 08:25 02/12/17 10:05 Glucose (Fingerstick) 128mg/dL (70-99) 217mg/dL (70-99) Sodium Level 141mmol/L (136-145) Potassium Level 3.4mmol/L (3.5-5.1) Chloride Level 109mmol/L (98-107) Carbon Dioxide Level 23mmol/L (21-32) Anion Gap 9 (6-14) Blood Urea Nitrogen 9mg/dL (7-20) Creatinine 0.6mg/dL (0.6-1.0) Estimated GFR (Cockcroft-Gault) 121.8 Glucose Level 180mg/dL (70-99) Calcium Level 7.8mg/dL (8.5-10.1) Hospital Course Pt presented to ER w/ vomiting and sx's consistent w/ DKA. She received more than 8 liters of fluid prior to her acidosis finally improving. She was initially on an insulin drip, then transitioned to her normal regimen once she was eating again. Her UDS was positive for meth, and she admitted she has been trying "to get off of it." She suspects that it it is the meth that led to the vomiting as well as not using insulin. She states she is going to move back in with her mother, and is hoping that will help her kick the habit. I told her that she was extremely dehydrated and that if she does not stop using meth, it could get bad enough to cause her . Pt v/u and states she is committed to getting healthier. Of note, pt's potassium was 3.4 on day of d/c, and it was replaced w/ 40 meq KCL orally. She also had a positive MRSA screen and was given Bactroban to use in her nares for 4 more days. Treatment IVF, insulin gtt Condition at Discharge: Stable Home Meds Active Scripts Promethazine HCl (Phenergan)25 Mg Supp.rect25 Mg RC Q6HRS PRN nausea and vomiting #10 SUPP.RECT Prov:ELIEZER CARPENTER DO 02/08/17 Escitalopram Oxalate 5 Mg Tablet5 Mg PO DAILY #30 TAB Ref 3 Prov:BARRY MORELAND DO 01/27/17 Insulin Glargine,Hum.rec.anlog (Lantus Solostar)100 Unit/1 Ml Insuln.pen14 Unit SQ BID #0 ML Ref 3 Prov:BARRY MORELAND DO 01/27/17 Insulin Aspart (Novolog Flexpen)100 Unit/1 Ml Insuln.pen14 Unit SQ QIDAFTMEAL DIABETES #2 SYR Ref 5 Prov:BARRY MORELAND DO 01/27/17 Magnesium Oxide 400 Mg Tablet1 Tab PO TID #90 TAB Ref 5 Prov:BARRY MORELAND DO 11/20/16 Metoclopramide Hcl 5 Mg Vdcebm58 Mg PO QIDACHS #120 TAB Ref 3 Prov:BARRY MORELAND DO 11/04/16 Tramadol Hcl 50 Mg Cwnniu05 Mg PO PRN Q6HRS PRN MODERATE PAIN #20 TAB Prov:GABRIELLA CASTANEDA MD 10/16/16 Pantoprazole Sodium 40 Mg Tablet.dr40 Mg PO DAILYAC #60 TAB Ref 2 Prov:BARRY MORELAND DO 09/23/16 Insulin Aspart (Novolog Flexpen)100 Unit/1 Ml Insuln.pen0-9 Unit SQ achs diabetes #10 SYR Ref 6 FOLLOW SUPPLEMENTAL SCALE GIVEN TO YOU Prov:BARRY MORELAND DO 05/10/16 Inpatient Meds Current Medications Sodium Chloride (Iv Sodium Chloride 0.9% 1,000ml) 1,000 ml @ 1,000 mls/hr 1X ONCE IV Last administered on 02/10/17t 15:45; Start 02/10/17 at 16:00; Stop at 16:59; Status DC Ondansetron HCl 4 mg 4 mg 1X ONCE IV Last administered on 02/10/17 15:46; Start 02/10/17 at 16:00; Stop 02/10/17 at 16:01; Status DC Insulin Human Regular/Sodium Chloride (Novolin R/Iv Normal Saline 150ml) 151.5 ml @ 0 mls/hr 1X ONCE IV ; Start 02/10/17 at 16:30; Stop 02/10/17 at 16:31; Status DC Insulin Human Regular 5 unit 5 unit 1X ONCE IV Last administered on 02/10/17 16:02; Start 02/10/17 at 16:00; Stop 02/10/17 at 16:01; Status DC Sodium Chloride 1,000 ml @ 1,000 mls/hr 1X ONCE IV Last administered on 16:00; Start 02/10/17 at 16:00; Stop 02/10/17 at 16:59; Status DC Sodium Chloride (Iv Sodium Chloride 0.9% 1,000ml) 1,000 ml @ 0 mls/hr Q0M IV Last administered on 02/10/17 19:51; Start 02/10/17 at 17:45 Insulin Aspart (Novolog) 0-9 UNITS Q2HR SQ Last administered on 02/12/17 10:12 ; Start 02/10/17 at 18:00 Dextrose 12.5 gm PRN Q15MIN PRN IV SEE COMMENTS Last administered on 02/10/17 23:59; Start 02/10/17 at 17:45 Sodium Chloride (Normal Saline Flush) 3 ml PRN DAILY PRN IV AFTER MEDS AND BLOOD DRAWS; Start 02/10/17 at 17:45 Calcium Carbonate/ Glycine (Tums) 500 mg PRN Q3HRS PRN PO HEARTBURN / GAS; Start 02/10/17 at 17:45 Enoxaparin Sodium (Lovenox) 40 mg Q24H SQ Last administered on 02/10/17 18:14 ; Start 02/10/17 at 18:00; Stop 02/11/17 at 12:02; Status DC Prochlorperazine Edisylate (Compazine) 10 mg PRN Q4HRS PRN IV NAUSEA/VOMITING; Start 02/10/17 at 17:45; Stop 02/10/17 at 17:45; Status DC Escitalopram Oxalate (Lexapro) 5 mg DAILY PO Last administered on 02/12/17 08: 37; Start 02/11/17 at 09:00 Pantoprazole Sodium (Protonix Vial) 40 mg DAILYAC IVP Last administered on 02/12 07:37; Start 02/11/17 at 07:30 Metoclopramide HCl (Reglan) 5 mg PRN Q6HRS PRN IV NAUSEA/VOMITING Last administered on 02/10/17 19:13; Start 02/10/17 at 17:45 Ondansetron HCl (Zofran) 4 mg PRN Q6HRS PRN IV NAUSEA/VOMITING; Start 02/10/17 at 17:45 Promethazine HCl 12.5 mg 12.5 mg PRN Q6HRS PRN AL NAUSEA/VOMITING; Start at 17:45; Stop 02/10/17 at 17:52; Status DC Insulin Human Regular 150 unit/ Sodium Chloride 151.5 ml @ 0 mls/hr CONT PRN IV SEE I/O RECORD Last administered on 02/10/17 20:51; Start 02/10/17 at 20:45 Sodium Chloride 1,000 ml @ 1,000 mls/hr 1X ONCE IV Last administered on 21:37; Start 02/10/17 at 21:45; Stop 02/10/17 at 22:44; Status DC Sodium Chloride 1,000 ml @ 500 mls/hr 1X ONCE IV Last administered on 22:45; Start 02/10/17 at 22:45; Stop 02/10/17 at 22:49; Status DC Sodium Chloride 1,000 ml @ 500 mls/hr 1X ONCE IV Last administered on 22:55; Start 02/10/17 at 23:00; Stop 02/11/17 at 00:59; Status DC Dextrose/Sodium Chloride 1,000 ml @ 200 mls/hr Q5H IV Last administered on 01:01; Start 02/11/17 at 01:00; Stop 02/11/17 at 05:19; Status DC Sodium Chloride 1,000 ml @ 500 mls/hr 1X ONCE IV Last administered on 02:57; Start 02/11/17 at 03:00; Stop 02/11/17 at 05:06; Status DC Dextrose/Sodium Chloride 1,000 ml @ 200 mls/hr Q5H IV Last administered on 05:22; Start 02/11/17 at 05:30; Stop 02/11/17 at 07:36; Status DC Potassium Chloride/Dextrose/ Sod Cl (KCl 20 Meq In D5W-1/2 NS) 1,000 ml @ 150 mls/hr Q6H40M IV Last administered on 02/11/17 13:59; Start 02/11/17 at 07:00 ; Stop 02/11/17 at 19:00; Status DC Mupirocin (Bactroban) 1 braulio BID TP Last administered on 02/12/17 08:37; Start 02/11/17 at 21:00; Stop 02/16/17 at 21:01 Ketorolac Tromethamine (Toradol) 15 mg PRN Q6HRS PRN IV PAIN Last administered on 02/11/17 19:30; Start 02/11/17 at 12:00; Stop 02/12/17 at 12:01 Insulin Detemir (Levemir) 22 units QHS SQ Last administered on 02/11/17 20:20 ; Start 02/11/17 at 21:00 Potassium Chloride (Klor-Con) 40 meq 1X ONCE PO Last administered on 10:09; Start 02/12/17 at 10:00; Stop 02/12/17 at 10:01; Status DC Active Scripts Active Phenergan (Promethazine HCl) 25 Mg Supp.rect 25 Mg RC Q6HRS PRN Escitalopram Oxalate 5 Mg Tablet 5 Mg PO DAILY Lantus Solostar (Insulin Glargine,Hum.rec.anlog) 100 Unit/1 Ml Insuln.pen 14 Unit SQ BID Novolog Flexpen (Insulin Aspart) 100 Unit/1 Ml Insuln.pen 14 Unit SQ QIDAFTMEAL Magnesium Oxide 400 Mg Tablet 1 Tab PO TID Metoclopramide Hcl 5 Mg Tablet 10 Mg PO QIDACHS Tramadol Hcl (Tramadol HCl) 50 Mg Tablet 50 Mg PO PRN Q6HRS PRN Pantoprazole Sodium 40 Mg Tablet.dr 40 Mg PO DAILYAC Novolog Flexpen (Insulin Aspart) 100 Unit/1 Ml Insuln.pen 0-9 Unit SQ ACHS FOLLOW SUPPLEMENTAL SCALE GIVEN TO YOU Activity: as tolerated Diet: Consistent Carbohydrate Follow-up Plan F/u with PCP in 1-2 weeks. Recheck BMP. GABRIELLA CASTANEDA MD Feb 12, 2017 10:56
[2017-02-13 10:52] LABS: CALCIUM 7.1 mg/dL (8.5-10.1)
== END 2017-02-12 12:31 | disposition home or self-care (01) | DRG 639 ==
LOC: ER 14:53 → ICU 16:16
PROVIDERS: ADMIT Family Medicine; ATTEND Family Medicine
DX: E10.10 Type 1 diabetes mellitus with ketoacidosis without coma (principal); E86.0 Dehydration; F15.10 Other stimulant abuse, uncomplicated; Z79.899 Other long term (current) drug therapy; Z88.8 Allergy status to other drugs, medicaments and biological substances
CPT/HCPCS: 36415; 36600; 80048; 80053; 81001; 82010; 82803; 82805; 82947; 85027; 87641; 96374; 96375; C9113; G0481; J1650; J1815; J1885; J2405; J2765; J7042; 99291-25; J7030

== ENCOUNTER 2017-02-15 05:25 | Inpatient (IN) | payer BC ==
[2017-02-15] VITALS (9 sets, daily range): BP systolic 100–127; BP diastolic 55–81
[~2017-02-15] VITALS: Ht 170.2 cm; Wt 70.1 kg
[~2017-02-15 05:25] MED LIST changes: +MUPI22OI2 TP
[2017-02-15] MEDS ORDERED: IV NORMAL SALINE 1,000ML 1,000 ML IV SCH ×4 (06:15→10:13)
[2017-02-15] MEDS ORDERED: ONDANSETRON PF 4 MG/2 ML VIAL. IV ONE ×2 (06:15→07:45)
--- NOTE | 2017-02-15 06:50 | EKG ---
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
--- NOTE | 2017-02-15 06:51 | PHYS DOC ---
General Chief Complaint: NAUSEA/VOMITING/DIARRHEA Stated Complaint: HERMINIO BLOOD SUGAR SOA Time Seen by MD: 06:06 Source: patient, old records Exam Limitations: no limitations Problems: History of Present Illness Initial Comments Pt is 26/F to ED with brother for N/V, elevated glucose. Pt well known to this facility with noncompliance, methamphetamine abuse, recurrant DKA. She was inpatient [facility] with DKA, states since discharge she's maintained consistent diet and claims adherence to medication regimen. States she developed n/v yesterday, claims PO intolerance today with retching/n/v. Noted to be vomitting in ED waiting area, denies other c/o. Timing/Duration: 24 hours Severity: severe Modifying Factors: worse with eating, improves with medication, improves with other Associated Symptoms: diaphoresis, malaise, nausea/vomiting, shortness of breath , weakness, other Allergies: Coded Allergies: acetaminophen (Verified Allergy, Intermediate, HIVES, 11/27/16) "WHEN I HAD MY ANKLE BX THEY GAVE ME TYLENOL AND I GOT HIVES ON MY LEG." adhesive tape (Verified Allergy, Intermediate, 11/27/16) I S O L A T I O N *CONTACT* (Verified Allergy, Unknown, 11/27/16) +MRSA screen 11-03-16 Past Medical History Medical History: diabetes, other (noncompliance, substance abuse, recurrant DKA ) Surgical History: noncontributory Social History Smoker: non-smoker Alcohol: none Drugs: other (methamphetamine) Review of Systems Constitutional: denies chills, diaphoresisdenies fever, malaise Respiratory: denies cough, shortness of breathdenies wheezing Cardiovascular: denies chest pain, denies palpitations, denies syncope Gastrointestinal: denies abdominal pain, denies diarrhea, nausea vomiting Genitourinary: denies dysuria, frequencydenies hematuria Musculoskeletal: denies back pain, denies joint swelling, denies neck pain Psychiatric/Neurological: headachedenies numbness, denies paresthesia, denies weakness Hematologic/Lymphatic: denies blood clots, denies easy bleeding, denies easy bruising Physical Exam General Appearance: moderate distress (retching) Eyes: bilateral eye EOMI, bilateral eye PERRL, bilateral eye normal inspection Ear, Nose, Throat: hearing grossly normal, normal ENT inspection (dry membranes ), normal pharynx Neck: non-tender, supple Respiratory: normal breath sounds, no respiratory distress Cardiovascular: normal peripheral pulses, tachycardia Gastrointestinal: soft (diffuse TTP no focality, BS hyperactive, no r/g/mass) Back: no CVA tenderness, no vertebral tenderness Extremities: normal range of motion, non-tender 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 Departure Time of Disposition: 08:42 Disposition: ADMITTED INPATIENT Diagnosis: DKA, hypovolemia, hyperkalemia Condition: STABLE Additional Instructions: ICU admission Dr Pereira is accepting. CEDRIC MELENDEZ DO Feb 15, 2017 06:51
[2017-02-15 06:56] LABS: BARBITURATES NEG (NEG); BENZODIAZEPINES NEG (NEG); CANNABINOIDS NEG (NEG); COCAINE NEG (NEG); METHADONE NEG (NEG); OPIATES NEG (NEG); PHENCYCLIDINE NEG (NEG)
[2017-02-15 06:57] LABS: AMPHETAMINE/METHAMPHETAMINE NEG (NEG)
[2017-02-15 07:04] LABS: BILIRUBIN,URINE NEG (NEG); CLARITY,URINE HAZY; COLOR,URINE STRAW; GLUCOSE,URINE 500 mg/dL (NEG); NITRITE,URINE NEG (NEG); UROBILINOGEN,URINE 0.2 mg/dL (0.2 mg/dL)
[2017-02-15 07:05] LABS: AMORPHOUS SEDIMENT,UR PRESENT /HPF; BACTERIA,URINE FEW /HPF (0-FEW); RBC,URINE RARE /HPF (0-2); SQUAMOUS EPITHELIAL CELL,UR MOD /LPF; WBC,URINE RARE /HPF (0-4)
[2017-02-15] MEDS ORDERED: PROMETHAZINE 25 MG/ML VIAL IV ONE (07:28)
[2017-02-15] MEDS ORDERED: IV NORMAL SALINE 50ML 50 ML ONE (07:28)
[2017-02-15] MEDS ORDERED: PROMETHAZINE 25 MG in IV NORMAL SALINE 50ML 50 ML IV PRN ×2 (07:30→10:15)
[2017-02-15 08:21] LABS: BASO # 0.1 x10^3/uL (0.0-0.2); BASO % 1 % (0-3); EOS % 0 % (0-3); HEMOGLOBIN 13.7 g/dL (12.0-15.5); LYMPH # 1.9 x10^3/uL (1.0-4.8); LYMPH % 19 % (24-48); MEAN CORPUSCULAR HEMOGLOBIN 30 pg (25-35); MEAN CORPUSCULAR HGB CONC 32 g/dL (31-37); MEAN CORPUSCULAR VOLUME 94 fL (79-100); MONO # 0.4 x10^3/uL (0.0-1.1); MONO % 5 % (0-9); NEUT # 7.5 x10^3uL (1.8-7.7); NEUT % 75 % (31-73); PLATELET COUNT 426 x10^3/uL (140-400); RED BLOOD COUNT 4.56 x10^6/uL (3.50-5.40); RED CELL DISTRIBUTION WIDTH 14.2 % (11.5-14.5)
[2017-02-15 08:28] LABS: ALBUMIN 3.7 g/dL (3.4-5.0); CALCIUM 8.6 mg/dL (8.5-10.1); GFR 67.6; POTASSIUM 5.4 mmol/L (3.5-5.1); TOTAL BILIRUBIN 0.5 mg/dL (0.2-1.0); TOTAL PROTEIN 7.5 g/dL (6.4-8.2)
[2017-02-15] MEDS ORDERED: FAMOTIDINE 20 MG/2 ML VIAL IVP ONE (08:30)
[2017-02-15] MEDS ORDERED: METOCLOPRAMIDE HCL 10 MG/2 ML VIAL. IV ONE (08:30)
[2017-02-15] MEDS ORDERED: ONDANSETRON PF 4 MG/2 ML VIAL. IV PRN ×2 (08:45→10:15)
[2017-02-15] MEDS ORDERED: INSULIN REGULAR 100 UNIT/ML 10ML VIAL. IV ONE (09:00)
[2017-02-15 09:19] LABS: % BANDS 2 % (0-9); % BASOS 3 % (0-3); % LYMPHS 23 % (24-48); % METAS 1 % (0-0); % MONOS 3 % (0-10); % SEGS 68 % (35-66)
[2017-02-15 09:21] LABS: PLATELET CLUMP PRESENT; PLT ESTIMATE INCREASED (ADEQUATE); POLYCHROMASIA SLIGHT
--- NOTE | 2017-02-15 09:24 | RAD ---
Portable chest, 02/15/2017: History: Shortness of breath, nausea, diabetes Comparison is made to a study from 12/10/2016. The heart size and pulmonary vascularity are normal. No pulmonary infiltrates are seen. A nodular shadow projected over the left base is most likely a nipple shadow. There is no evidence of pleural fluid. IMPRESSION: No acute cardiopulmonary abnormality is detected.
--- NOTE | 2017-02-15 09:56 | ACF ---
Admission Criteria Forms GENERAL ADMISSION CRITERIA (Place 'X' for any and all applicable criteria): Admission is indicated for ANY ONE of the following: [ ]I. Hemodynamic instability as indicated by ANY ONE of the following(1)(2) (3)(4)(5): [ ]a) Vital sign abnormality not readily corrected by appropriate treatment within 12 to 24 hours indicated by ANY ONE of the following: [ ]i) Hypotension [ ]ii) Symptomatic Tachycardia unresponsive to treatment (eg , analgesia, fluids, sedation as indicated) [ ]iii) Orthostatic vital sign changes unresponsive to treatment (eg, fluids) [ ]b) Vital sign abnormality that is severe indicated by ANY ONE of the following: [ ]i) Inadequate perfusion indicated by ANY ONE of the following: [ ]1) Lactic acidosis (greater than 2 mmol/L) [ ]2) New abnormal capillary refill (greater than 3 seconds) [ ]3) Other metabolic acidosis (arterial pH less than 7.35) not otherwise explained [ ]4) Reduced urine output [ ]5) Altered mental status [ ]6) Myocardial Ischemia [ ]v) Mean arterial pressure[A] less than 60 mm Hg [ ]vi) Mean arterial pressure[A] less than 70 mm Hg after 30 minutes of appropriate treatment (eg, fluid resuscitation) [ ]vii) IV inotropic or vasopressor medication required to maintain adequate blood pressure or perfusion [ ]viii) Sustained heart rate greater than 120 beats per minute in adult or child 6 years or older[B]] [ ]II. Hypertension requiring inpatient treatment as indicated by ANY ONE of the following(6)(7)(8): [ ]a) SBP greater than 220 mm Hg or DBP greater than 120 mm Hg despite treatment [ ]b) SBP greater than 140 mm Hg or DBP greater than 100 mm Hg with evidence of acute end organ damage as indicated by ANY ONE of the following: [ ]i) Encephalopathy [ ]ii) Acute renal failure as indicated by new onset of ANY ONE of the following(9)(10)(11)(12)(13): [ ]1) A 3-fold rise in serum creatinine from baseline [ ]2) Serum creatinine greater than 4 mg/dL ( 354 micromoles/L) with acute rise greater than 0.5 mg/dL (44.2 micromoles/L) [ ]3) Reduction of more than 75% in estimated glomerular filtration rate from baseline [ ]4) Estimated glomerular filtration rate less than 35 mL/min/1.73m2 (0.59 mL/sec/1.73m2) in child up to 18 years of age [ ]5) Cessation of urine output indicated by ALL of the following: [ ]A. Adequate volume status [ ]B. Inadequate urine output as indicated by ANY ONE of the following: [ ]a. Urine output less than 0.3 mL/kg/hr for 24 hours [ ]b. Anuria (urine output less than 0.1 mL/kg/hr) for 12 hours [ ]iii) Aortic dissection [ ]iv) Myocardial ischemia [ ]v) Left ventricular heart failure [ ]vi) Retinal hemorrhage [ ]vii) Other significant finding [ ]c) Hypertension in child requiring inpatient treatment as indicated by ALL of the following(14)(15)(16): [ ]i) Outpatient treatment not effective, not available, or not appropriate [ ]ii) SBP or DBP greater than 95th percentile for age [ ]iii) Evidence of acute end organ damage as indicated by ANY ONE of the following: [ ]1) Altered mental status [ ]2) Acute renal failure as indicated by new onset of ANY ONE of the following(9)(10)(11)(12)(13): [ ]A. A 3-fold rise in serum creatinine from baseline [ ]B. Serum creatinine greater than 4 mg/dL (354 micromoles/L) with acute rise greater than 0.5 mg/dL (44.2 micromoles/L) [ ]C. Reduction of more than 75% in estimated glomerular filtration rate from baseline [ ]D. Estimated glomerular filtration rate less than 35 mL/min/1.73m2 (0.59 mL/sec/1.73m2)in child up to 18 years of age [ ]E. Cessation of urine output indicated by ALL of the following: [ ]a. Adequate volume status [ ]b. Inadequate urine output as indicated by ANY ONE of the following: [ ]1) Urine output less than 0.3 mL/kg/hr for 24 hours [ ]2) Anuria (urine output less than 0.1 mL/kg/hr) for 12 hours [ ]3) Severe headache [ ]4) Visual disturbance [ ]5) Retinal hemorrhage [ ]6) Other significant finding [ ]III. Acute cardiac or peripheral ischemia as indicated by ANY ONE of the following: [ ]a) Acute coronary syndrome(17)(18) [ ]b) Acute peripheral ischemia (eg, pulseless, cool, mottled, or cyanotic extremity)(19) [ ]IV. Cardiac arrhythmias or findings of immediate concern indicated by ANY ONE of the following(20)(21): [ ]a) Heart rhythms that are inherently dangerous or unstable indicated by ANY ONE of the following(22)(23)(24): [ ]i) Resuscitated ventricular fibrillation or cardiac arrest [ ]ii) Ventricular escape rhythm [ ]iii) Sustained ventricular tachycardia (30 seconds or more of ventricular rhythm at greater than 100 beats per minute) [ ]iv) Nonsustained ventricular tachycardia and ANY ONE of the following: [ ]1) Suspected cardiac ischemia as cause or consequence of ventricular tachycardia [ ]2) In setting of acute myocarditis [ ]b) Unstable cardiac conduction defects indicated by ANY ONE of the following(24)(25)(26): [ ]i) Type II second-degree atrioventricular block [ ]ii) Third-degree atrioventricular block [ ]iii) New-onset left bundle branch block with suspected myocardial ischemia [ ]c) Any heart rhythm and ANY ONE of the following(22)(23)(27)(28)( 29): [ ] i) Continuous long-term ECG monitoring needed (eg, initiation of drug requiring monitoring for more than 24 hours) [ ] ii) Patient has automatic implanted cardioverter defibrillator that is repeatedly firing, malfunctioning, or in need of immediate adjustment of settings beyond the scope of ambulatory or observation care. [ ]d) Heart rhythms of concern due to ANY ONE of the following: [ ]i) Hypotension [ ]ii) Respiratory distress [ ]iii) Association with other significant symptoms (eg, bradycardia with syncope or ongoing dizziness, supraventricular tachycardia with chest pain) (27)(28) (30) [ ] V. Severe heart failure as indicated by ANY ONE of the following ( 31)(32): [ ]a) Respiratory distress [ ]b) Hypotension [ ]c) Anasarca (refractory to outpatient therapy) [ ]d) Cardiac arrhythmias of immediate concern [ ]e) Myocardial ischemia [ ]. Respiratory abnormalities, including ANY ONE of the following(33)(34) (35)(36): [ ]a) Respiratory rate greater than 30 breaths per minute unresponsive to treatment [A] [ ]b) New saturation of arterial oxygen less than 90% [ ]c) New partial pressure of carbon dioxide greater than 44 mm Hg ( 5.9 kPa) [ ]d) Supplemental oxygen or respiratory treatments needed that are new or not performable at other levels of care [ ]e) New-onset cyanosis [ ]f) Inability to protect airway [ ]g) Chronic lung disease with severe deterioration (not responsive to emergency and observation care treatment as appropriate) as indicated by ANY ONE of the following(34)(36 ): [ ]i) SaO2 5% below baseline in patient with chronic hypoxemia [ ]ii) New requirement for supplemental oxygen to keep SaO2 at baseline or acceptable level [ ]iii) Required supplemental oxygen performable only in acute inpatient setting [ ]iv) Severe airflow or ventilation abnormalities [ ]v) Previously mobile patient unable to walk between rooms [ ]vi Inability to eat or sleep due to dyspnea [ ]vii) Rapid rate of exacerbation onset [ ]viii) Altered mental status ]VII. Severe airflow or ventilation abnormalities (not responsive to emergency and observation care treatment as appropriate) as indicated by ANY ONE of the following(33)(34)(35)(37): [ ]a) PCO2 greater than 42 mm Hg (5.6 kPa) and pH less than 7.35 (new ) [ ]b) Documented PCO2 increased more than 5 mm Hg (0.7 kPa) from disease baseline [ ]c) Airflow measurements [B] less than 60% of previous best or predicted (eg, peak expiratory flow rate less than 300 L/minute) despite intensive emergent treatment [C] [ ]d) Required respiratory treatments that are performable only in acute inpatient setting [ ]VIII. Impending or actual respiratory arrest ( Also use Respiratory Failure GRG for severe respiratory disease and long-term mechanical ventilation patients) [ ]IX. Neurologic abnormalities, including ANY ONE of the following: [ ]a) New findings that suggest ANY ONE of the following: [ ]i) CLINICAL REIMBURSEMENT SPECIALIST infection(38) [ ]ii) Cerebral bleeding, ischemia, or vasospasm(39)(40) [ ]iii) Increased intracranial pressure, hydrocephalus, or cerebral edema(41)(42)(43) [ ]iv) Spinal cord injury(44) [ ]b) Uncontrolled seizures(45) [ ]c) New-onset coma (eg, Juani coma scale score less than 9) or unexplained abnormal mental status (eg, Juani coma scale score less than 14) [D](41)(46)(47) [ ]X. New-onset severe neurologic findings requiring inpatient care; examples include(42)(48)(49): [ ]a) Papilledema [ ]b) Cerebral edema [ ]c) Mass effect on CT scan [ ]XI. Suspected acute intra-abdominal process with peritoneal signs, abdominal mass, or similar findings (50)(51)(52) [X ]XII. Severe physiologic disorder remaining after emergency or observation level care (as appropriate) as indicated by ANY ONE of the following (53): [ ]a) Significant dehydration [X ]b) Diabetic ketoacidosis [ ]c) Hyperglycemic hyperosmolar state (eg, osmolality greater than 320 mOsm/kg (mmol/kg) [ ]d) Hypoglycemia [ ]e) Other (new) acid-base disorder with pH less than 7.35 or greater than 7.5(54) [ ]f) Thyroid storm (55) [ ]g) Myxedema coma (55) [ ]XIII. Abdominal abnormalities with ANY ONE of the following(56)(57): [ ]a) Absent bowel sounds with complete ileus [ ]b) Signs of intestinal obstruction or peritonitis [E] [ ]c) Nausea and vomiting that cannot be controlled with outpatient or observation care [ ]XIV. Acute renal failure as indicated by new onset of ANY ONE of the following(9)(10)(11)(12)(13): [ ]a) A 3-fold rise in serum creatinine from baseline [ ]b) Serum creatinine greater than 4 mg/dL (354 micromoles/L) with acute rise greater than 0.5 mg/dL (44.2 micromoles/L) [ ]c) Reduction of more than 75% in estimated glomerular filtration rate from baseline [ ]d) Estimated glomerular filtration rate less than 35 mL/min/ 1.73m2 (0.59 mL/sec/1.73m2) in child up to 18 years of age [ ]e) Cessation of urine output indicated by ALL of the following: [ ]i) Adequate volume status [ ]ii) Inadequate urine output as indicated by ANY ONE of the following: [ ]1) Urine output less than 0.3 mL/kg/hr for 24 hours [ ]2) Anuria (urine output less than 0.1 mL/kg/hr) for 12 hours [ ]XV. Significant uremic complications as indicated by ANY ONE of the following(58)(59)(60): [ ]a) Outpatient therapy is ineffective or not feasible for ANY ONE of the following: [ ]i) Severe heart failure [ ]ii) Severehypertension [ ]iii) Pleural effusion [ ]iv) Pericarditis or pericardial effusion [ ]b) Cardiac arrhythmias of immediate concern [ ]c) Intractable nausea or vomiting [ ]d) Recurrent seizures [ ]e) Encephalopathy [ ]f) Bleeding abnormalities (eg, platelet dysfunction) with active (eg, gastrointestinal) bleeding [ ]g) Dialysis indicated before long-term access or ambulatory arrangements can be made [ ]h) Significant metabolic or electrolyte abnormalities (eg, severe acidosis or hyperkalemia) [ ]XVI. High fever or other high-risk infection situation as indicated by ANY ONE of the following(61)(62)(63)(64): [ ]a) Outpatient and observation care antimicrobial treatment unavailable, not effective, or not appropriate [ ]b) Documented bacteremia [ ]c) Temperature greater than 40.5 degrees C (104.9 degrees F) ( oral) [ ]d) Temperature greater than 39.5 degrees C (103.1 degrees F) ( oral) or less than 36 degrees C (96.8 degrees F) (rectal) that does not respond to e treatment and observation care [ ] XVII. Temperature less than 95 degrees F (35 degrees C)(rectal)(65) [ ] XVIII. Severe nutritional abnormalities as indicated by ALL of the following (66)(67): [ ]a) Inability to tolerate or establish sufficient oral or other enteral nutrition in outpatient setting [ ]b) Parenteral nutrition regimen need that must be implemented on inpatient basis [ ] XIX. Severe electrolyte abnormalities indicated by ALL of the following(68) (69)(70): [ ]a) Electrolytes and associated findings are not as expected for patient baseline or acceptable treatment effects. [ ]b) Severe abnormalities indicated by ANY ONE of the following: [ ]i) Sodium less than 130 mEq/L (mmol/L) (new) [ ]ii)Sodium less than 135 mEq/L (mmol/L) with ANY ONE of the following: [ ]1) Uncorrectable (to near normal or chronic baseline) after trial of outpatient and emergency treatment [ ]2) Altered mental status [ ]3) Seizures [ ]4) Severe medical etiology requiring inpatient management (eg, heart failure, hypovolemia) [ ]iii) Sodium greater than 155 mEq/L (mmol/L) [ ]iv) Sodium greater than 150 mEq/L (mmol/L) with ANY ONE of the following: [ ]1) Uncorrectable (to near normal or chronic baseline) with outpatient and emergency treatment [ ]2) Altered mental status [ ]3) Seizures [ ]4) Severe medical etiology (eg, hypovolemia, diabetes insipidus) [ ]v) Potassium less than 2.5 mEq/L (mmol/L) despite outpatient and emergency treatment [ ]vi) Potassium less than 3 mEq/L (mmol/L) with ANY ONE of the following: [ ]1) Weakness [ ]2) Cardiac abnormality (eg, arrhythmia, conduction disturbance) [ ]3) Cardiac ischemia [ ]4) Ileus [ ]5) Ongoing medical cause requiring inpatient management (eg, acute renal wasting or SIADH) [ ]6) Other severe symptoms [ ]vii) Potassium greater than 6.5 mEq/L (mmol/L) [ ]viii) Potassium greater than 5 mEq/L (mmol/L) with ANY ONE of the following: [ ]1) Uncorrectable (to near normal or chronic baseline) with outpatient and emergency treatment [ ]2) Severe ECG findings [F] [ ]3) Acute worsening of renal failure (creatinine greater than 2.5 mg/dL (221 micromoles/L) or significant elevation for age and size) [ ]4) Severe weakness [ ]5) Severe medical etiology (eg, hemolysis, infection, drug overdose) [ ]ix) Calcium less than 7 mg/dL (1.75 mmol/L) despite outpatient and emergency treatment (72) [ ]x) Calcium less than 8 mg/dL (2 mmol/L) with significant symptoms or findings; examples include(72): [ ]1) Altered mental status [ ]2) Muscle spasms [ ]3) Seizures [ ]4) Breathing difficulty [ ]5) Cardiac abnormality (eg, arrhythmia or conduction disturbance) [ ]xi) Calcium greater than 14 mg/dL (3.5 mmol/L)(72) [ ]xii) Calcium greater than 12 mg/dL (3 mmol/L) with ANY ONE of the following(72): [ ]1) Uncorrectable (to near normal or chronic baseline) with outpatient and emergency treatment [ ]2) Significant dehydration or hypovolemia as indicated by ALL of the following(70)(73)(74): [ ]A. Not resolved with initial treatments [ ]B. Clinically significant dehydration as indicated by ANY ONE of the following: [ ]a. Vomiting refractory to outpatient treatment (ie, precluding oral rehydration) [ ]b. Inability to drink [ ]c. Hypernatremia or other electrolyte abnormality unable to be corrected with outpatient and emergency treatment [ ]d. Failure to remain hydrated with outpatient therapy [ ]e. Reduced urine output [ ]f. Hypotension [ ]g. Serious cause for dehydration requiring acute hospitalization (eg, bowel obstruction, increased intracranial pressure, infectious cause) [ ]h. Child with ANY ONE of the following(75): [ ]1) Severe abdominal tenderness [ ]2) Adequate care not available at home [ ]3) Severe dehydration ( greater than 9% loss of body weight) [ ]4) Significant symptoms or findings; examples include: [ ]A. Altered mental status [ ]B. Cardiac abnormality (eg, arrhythmia, conduction disturbance) [ ]C. Malignant etiology requiring inpatient treatment [ ]xiii) Phosphorus less than 1 mg/dL (0.32 mmol/L) [ ]xiv) Phosphorus less than 1.5 mg/dL (0.48 mmol/L) with ANY ONE of the following: [ ]1) Patient unresponsive to outpatient and emergency treatment [ ]2) Significant symptoms or findings; examples include: [ ]A. Weakness [ ]B. Altered mental status [ ]C. Breathing difficulty [ ]D. Seizures [ ]E. Rhabdomyolysis [ ]xv) Phosphorus greater than 10 mg/dL (3.2 mmol/L) [ ]xvi) Phosphorus greater than 4.5 mg/dL (1.45 mmol/L) (new) with ANY ONE of the following: [ ]1) Severe medical etiology (eg, crush injury, acute renal failure) [ ]2) Associated hypocalcemia with significant findings; examples include: [ ]A. Neurologic symptoms [ ]B. Altered mental status [ ]C. Muscle spasms [ ]D. Seizures [ ]E. Breathing difficulty [ ]F. Cardiac abnormality (eg, arrhythmia, conduction disturbance) [ ]xvii) Magnesium less than 1 mg/dL (0.41 mmol/L) [ ]xviii) Magnesium less than 1.5 mg/dL (0.62 mmol/L) with ANY ONE of the following: [ ]1) Patient unresponsive to outpatient and emergency treatment [ ]2) Associated hypocalcemia with significant findings; examples include: [ ]A. Altered mental status [ ]B. Muscle spasms [ ]C. Seizures [ ]D. Breathing difficulty [ ]E. Cardiac abnormality (eg, arrhythmia , conduction disturbance) [ ]3) Associated hypokalemia (potassium less than 3 mEq/L (mmol/L)) with risk of arrhythmia [ ]xix) Magnesium greater than 4 mEq/L (2 mmol/L) [ ]xx) Magnesium greater than 2.5 mEq/L (1.25 mmol/L) with significant symptoms or findings; examples include: [ ]1) Weakness [ ]2) Altered mental status [ ]3) Cardiac abnormality (eg, arrhythmia, conduction disturbance) [ ]4) Breathing difficulty [ ]5) Severe medical etiology (eg, renal failure, hypovolemia) [ ]xxi) Uric acid greater than 20 mg/dL (1190 micromoles/L)(76) [ ]xxii) Uric acid greater than 8 mg/dL (476 micromoles/L) with significant symptoms or findings of tumor lysis syndrome; examples include(76): [ ]1) Creatinine greater than 1.5 times upper limit of normal [ ]2) Cardiac abnormality (eg, arrhythmia, conduction disturbance) [ ]3) Seizure [ ]XX. Acute blood loss causing significant abnormality as indicated by ANY ONE of the following(77)(78): [ ]a) Hemoglobin less than 10 g/dL (100 g/L) (not baseline) [ ]b) Hematocrit less than 30% (0.30) (not baseline) [ ]c) Repeat hematocrit decreased more than 2% (0.02) [ ]d) Uncontrolled bleeding [ ]XXI. Severe anemia indicated by ANY ONE of the following(78)(79): [ ]a) Altered mental status [ ]b) Chest pain [ ]c) Exertional dyspnea [ ]d) Syncope [ ]e) Other findings suggesting inadequate perfusion [ ]f) Treatment with transfusion or volume replacement is ineffective at resolving ANY ONE of the following [G]: [ ]i) Tachycardia for age [ ]ii) Orthostatic vital sign changes as indicated by ANY ONE of the following(80): [ ]1) Fall in SBP of 20 mm Hg or more 1 to 3 minutes after patient sits or stands from recumbent position [ ]2) Fall in DBP of 10 mm Hg or more 1 to 3 minutes after patient sits or stands from recumbent position [ ]XXII. High-risk low platelet count as indicated by ANY ONE of the following( 81)(82): [ ]a) Severe or life-threatening bleeding (eg, intracranial, major gastrointestinal, or extensive mucosal bleeding), with any reduced platelet count [ ]b) Platelet count less than 20,000/mm3 (20 x109/L) with any active bleeding [ ]c) Platelet count less than 10,000/mm3 (10 x109/L) with minor purpura or petechiae [ ]d) Platelet count less than 5000/mm3 (5 x109/L) [ ]e) Low platelet count with hemolytic anemia [ ]XXIII. Disseminated intravascular coagulation(77)(83) [ ]XXIV. Severe adverse drug or systemic toxin reaction requiring inpatient treatment; examples include(84)(85): [ ]a) Serotonin syndrome(86) [ ]b) Neuroleptic malignant syndrome(86) [ ]c) Cholinergic syndrome with severe symptoms (eg, bronchorrhea, weakness, mental status changes, seizures) [ ]d) Sympathetic syndrome with severe symptoms (eg, seizures, mental status changes, cardiac dysrhythmias) [ ]e) Anticholinergic syndrome [ ]XXV. Severe pain requiring acute inpatient management as indicated by ALL of the following (87)(88)(89): [ ]a) Continuous or frequent (eg, every 2 to 4 hours) parenteral analgesics required [H] [ ]b) Rapid improvement expected from treatment or acute intervention (eg, surgery, anesthesia procedure) [ ]XXVI.Severe behavioral health issues judged unmanageable at a lower level of care (eg, residential) in a patient who is ANY ONE of the following(91) [ ]a) Acutely suicidal [ ]b) A danger to self (eg, self-mutilating or suicidal behavior) [ ]c) A danger to others (eg, assaultive or homicidal behavior) [ ]d) Incapacitated because of grave disability (eg, inability to provide for self at lower level of care) (92) [ ]XXVII. Inpatient monitoring needed; examples include(1)(3)(87)(93)(94)(95)(96 ): [ ]a) Vital signs, neurologic signs, or vascular checks more frequently than every 4 hours [ ]b) Cardiac or respiratory monitoring beyond the scope (eg, over 24 hours) of observation care [ ]c) Pulmonary artery catheter monitoring [ ]d) Suspected compartment syndrome(97) (98) [ ]e) Cerebral bleeding, hydrocephalus, or vasospasm monitoring [ ]f) Increased intracranial pressure or cerebral edema monitoring [ ]g) monitoring [ ]XXVIII. Treatment requiring inpatient care; examples include: [ ]a) IV fluid to replace significant ongoing losses (greater than 3 L/m2 per day)(53) [ ]b) High concentration oxygen (greater than 40%)(33)(99)(100) [ ]c) Frequent respiratory therapy (more frequently than every 4 hours) to maintain airflow rates greater than 60% of baseline(33)(99)(100) [ ]d) Epidural analgesia(87) [ ]e) IV anticoagulation, vasoactive, or antiarrhythmic medication(19 )(23) [ ]f) Acute thrombolytics (generally require 24 hours of observation )(101)(102) [ ]XXIX. Emergency procedures needed; examples include: [ ]a) Emergency inpatient surgery [ ]b) Temporary pacemaker placement(103) [ ]c) Chest tube placement with active evacuation (eg, suction, drainage)(104) [ ]d) Emergent cardioversion(105) [ ]e) Emergent cardiac or vascular procedures (eg, cardiac catheterization, angioplasty) (17)(18) [ ]f) Emergent dialysis access placement and institution(10)(106) [ ]g) Emergent pericardiocentesis(107) [ ]h) Emergent plasmapheresis or leukapheresis(83) [ ]i) Emergent tracheostomy The original [employer] content created by [employer] has been revised. The portions of the content which have been revised are identified through the use of italic text or in bold, and [facility] has neither reviewed nor approved the modified material. All other unmodified content is copyright [employer]. Please see references footnoted in the original [facility] edition 2016 Admission Criteria Met?: Yes FLAKO DESIR Feb 15, 2017 09:56
[2017-02-15] MEDS: INSULIN REGULAR 150 UNIT in 0.9 % SODIUM CHLORIDE 150ML 150 ML IV PRN (10:34)
[2017-02-15] MEDS: POTASSIUM CL 20MEQ D5-0.45NACL 1,000 ML IV SCH ×3 (12:41→19:55)
[2017-02-15 14:13] LABS: CALCIUM 7.5 mg/dL (8.5-10.1); CREATININE 0.9 mg/dL (0.6-1.0); GFR 76.3; POTASSIUM 4.6 mmol/L (3.5-5.1)
[2017-02-15] MEDS ORDERED: IV NORMAL SALINE 1,000ML 1,000 ML ONE (17:14)
[2017-02-15] MEDS: IV NORMAL SALINE 1,000ML 1,000 ML IV PRN ×2 (17:16→18:38)
--- NOTE | 2017-02-15 18:19 | HP ---
ADMIT DATE: 02/15/2017 HISTORY OF PRESENT ILLNESS: The patient is a 26-year-old female patient who came to the Emergency Room with a complaint of recurrent bouts of nausea, vomiting, and marked hyperglycemia. showed that she was in diabetic ketoacidosis the blood sugar that was high at 637, high anion gap metabolic acidosis with anion gap of 31, dilutional hyponatremia and hyperkalemia. She was started on insulin drip and IV fluids and was admitted to ICU to follow the diabetic ketoacidosis protocol. By the time I saw her, she has had no further episodes of nausea, vomiting. She was able to eat and drink and her blood sugar has came down to about 257. PAST MEDICAL HISTORY: Significant for brittle type 1 diabetes with numerous admissions for diabetic ketoacidosis. She is known to have tobacco abuse disorder as well as adjustment disorder. PAST SURGICAL HISTORY: Significant for Port-A-Cath placement and removal. She has also an abscess in her left axillary area that was excised and drained. ALLERGIES: She is allergic to ACETAMINOPHEN and ADHESIVE. FAMILY HISTORY: Unremarkable. SOCIAL HISTORY: She is single. She apparently used to smoke quit. Does not drink alcohol or use any recreational drugs. She lives with her mother. REVIEW OF SYSTEMS: As per history of present illness. MEDICATIONS: She is currently on following medications: She is on Lexapro 5 mg once a day. She is on NovoLog as insulin sliding scale and NovoLog insulin 14 units 4 times a day, Lantus insulin 14 units twice a day, magnesium oxide 400 mg 3 times a day, metoclopramide 10 mg 4 times a day before meals and bedtime, Protonix 40 mg once a day, promethazine 25 mg rectally as needed every 6 hours, tramadol 50 mg every 6 hours as needed. PHYSICAL EXAMINATION: GENERAL: On arrival to the Emergency Room, she looked pale, but no jaundice, cyanosis, or thyromegaly. No jugular venous distension. No lower limb edema. VITAL SIGNS: Her heart rate was 132, blood pressure was 103/63, temperature was 97.9, respiratory rate was 18 and oxygen saturation was 96% on room air. HEAD, EYES, EARS, NOSE AND THROAT: Showed normocephalic, atraumatic. NECK: Supple. HEART: Showed normal first and second heart sounds with no gallop, rub or murmur. CHEST: Clear to auscultation. No crepitation or rhonchi. ABDOMEN: Distended, soft, nontender. No guarding or rigidity. No organomegaly. Hernial orifices intact. Bowel sounds normal. NEUROLOGIC: She was awake, alert, responding appropriately. She ambulates without assistance or assistive devices. LABORATORY DATA: Showed a white cell count 10,000, hemoglobin 13.7, hematocrit 43, MCV 94 and platelet count of 426,000 with normal manual differential. Her chemistry on admission showed a serum sodium of 132, potassium 5.4, chloride 95, bicarbonate was 6, anion gap of 31, BUN 24, creatinine 1, estimated GFR was 67 mL per minute. Her glucose was 637. Calcium was 8.6. Total bilirubin, AST, ALT, alkaline phosphatase were normal. Her CK was only 19. Total protein was 7.5, albumin 3.7. Urinalysis was unremarkable. The urine was straw colored, hazy with a pH of 5.5, specific gravity of 1.015. The urine was negative for protein. There was large amount of glucose, large amount of ketones, negative for blood, nitrites as well as leukocyte esterase, rare RBCs, rare WBCs, and very few bacteria. Her urine test was negative. Her toxic screen was also negative. Her chest x-ray showed no acute cardiopulmonary abnormalities seen. ASSESSMENT: So in summary, this is yet again another admission for diabetic ketoacidosis. We will continue with IV fluid and insulin drip until her anion gap normalized and they will switch her back to her home insulin regimen. ANAYELI FOSS MD DR: JOSÉ/regina JOB#: [id number] / [id number]
[2017-02-15 19:50] LABS: CALCIUM 7.2 mg/dL (8.5-10.1); GFR 67.6; POTASSIUM 3.2 mmol/L (3.5-5.1)
[2017-02-15] MEDS: KETOROLAC 30 MG/ML VIAL. IV PRN (19:56)
[2017-02-15] MEDS ORDERED: POTASSIUM CHLORIDE 20 MEQ TABLET.ER. PO ONE (21:00)
[2017-02-15] MEDS ORDERED: ENOXAPARIN 40 MG/0.4 ML DISP.SYRIN. SQ SCH (21:00)
[2017-02-16 01:59] VITALS: BP 118/81
[2017-02-16] MEDS: POTASSIUM CL 20MEQ D5-0.45NACL 1,000 ML IV SCH ×2 (02:33→08:33)
[2017-02-16] MEDS: INSULIN REGULAR 150 UNIT in 0.9 % SODIUM CHLORIDE 150ML 150 ML IV PRN (02:37)
[2017-02-16 04:04] VITALS: BP 112/70
[2017-02-16 05:44] VITALS: BP 112/70
[2017-02-16 06:50] LABS: BASO % 1 % (0-3); EOS # 0.1 x10^3/uL (0.0-0.7); EOS % 2 % (0-3); HEMATOCRIT 31.8 % (36.0-47.0); HEMOGLOBIN 10.4 g/dL (12.0-15.5); LYMPH # 2.5 x10^3/uL (1.0-4.8); LYMPH % 38 % (24-48); MEAN CORPUSCULAR HEMOGLOBIN 29 pg (25-35); MEAN CORPUSCULAR HGB CONC 33 g/dL (31-37); MEAN CORPUSCULAR VOLUME 89 fL (79-100); MONO # 0.5 x10^3/uL (0.0-1.1); MONO % 8 % (0-9); NEUT # 3.3 x10^3uL (1.8-7.7); NEUT % 51 % (31-73); PLATELET COUNT 285 x10^3/uL (140-400); RED BLOOD COUNT 3.56 x10^6/uL (3.50-5.40); RED CELL DISTRIBUTION WIDTH 14.2 % (11.5-14.5); WHITE BLOOD COUNT 6.5 x10^3/uL (4.0-11.0)
[2017-02-16 06:56] LABS: CALCIUM 7.5 mg/dL (8.5-10.1); CREATININE 0.7 mg/dL (0.6-1.0); POTASSIUM 4.4 mmol/L (3.5-5.1)
[2017-02-16] MEDS ORDERED: PANTOPRAZOLE 40 MG TABLET. PO SCH (07:30)
[2017-02-16] MEDS: KETOROLAC 30 MG/ML VIAL. IV PRN (07:53)
[2017-02-16 08:00] VITALS: BP 123/93
[2017-02-16] MEDS ORDERED: ESCITALOPRAM 5 MG TABLET PO SCH (09:00)
[2017-02-16] MEDS ORDERED: INSULIN ASPART 300 UNITS/3 ML INSULN.PEN SQ PRN (10:00)
[2017-02-16 10:14] VITALS: BP 114/73
[2017-02-16 12:00] VITALS: BP 120/93
== END 2017-02-16 14:10 | disposition left against medical advice (07) | DRG 638 ==
LOC: ER 05:30 → ICU 10:02
PROVIDERS: ADMIT Internal Medicine; ATTEND Internal Medicine
DX: E10.10 Type 1 diabetes mellitus with ketoacidosis without coma (principal); E87.1 Hypo-osmolality and hyponatremia; E87.5 Hyperkalemia; Z53.21 Procedure and treatment not carried out due to patient leaving prior to being seen by health care provider; E86.1 Hypovolemia; F17.200 Nicotine dependence, unspecified, uncomplicated; F43.20 Adjustment disorder, unspecified; Z79.4 Long term (current) use of insulin; Z91.19 Patient's noncompliance with other medical treatment and regimen; Z88.1 Allergy status to other antibiotic agents; Z88.8 Allergy status to other drugs, medicaments and biological substances
CPT/HCPCS: 36415; 71010; 80048; 80053; 81001; 81025; 82550; 82947; 84484; 85007; 85027; 93005; G0480; G0481; J1650; J1815; J1885; J2405; J2550; J2765; S0028; J7030

== ENCOUNTER 2017-02-20 05:32 | Inpatient (IN) | payer BC ==
[2017-02-20] VITALS (19 sets, daily range): BP systolic 78–120; BP diastolic 40–75
[~2017-02-20] VITALS: Ht 170.2 cm; Wt 63.7 kg
--- NOTE | 2017-02-20 05:33 | ED.ADGEN ---
Past History Past Medical History: Diabetes, Other Additional Past Medical Histor: pt reports several admissions for "high blood sugar" Past Surgical History: No Surgical History, Other Smoking: Less than 1pk/day Alcohol Use: None Drug Use: Amphetamine, Methamphetamine Adult General Chief Complaint Chief Complaint ".. I so sick this time... I hurt everywhere.. vomiting so much..." HPI HPI Patient is a 26 year old female who presents with above hx and complaints. Patient is known to the ER staff as frequent workups for DKA and hyperglycemia. Currently patient refusing repeat IV sticks. Patient is obviously very dehydrated. Patient states she's been sick for the last 2 days. Patient denies any change in her recommended insulin regimen. Hx. cyclic dry heaves and generalized abd. pain. Review of Systems Review of Systems Constitutional: Complaints of fever or chills [] Eyes: Denies change in visual acuity, redness, or eye pain [] HENT: Denies nasal congestion or sore throat [] Respiratory: Denies cough or shortness of breath [] Cardiovascular: No additional information not addressed in HPI [] GI: Complaints of generalized abdominal pain, nausea, vomiting,. Denies bloody stools or diarrhea [] : Denies dysuria or hematuria [] Musculoskeletal: Denies back pain or joint pain [] Integument: Denies rash or skin lesions [] Neurologic: Denies headache, focal weakness or sensory changes [] Endocrine: Denies polyuria or polydipsia [] Family History Family History Diabetes Current Medications Current Medications Current Medications Medications (Trade) Dose Ordered Sig/Chevy Start Time Stop Time Status Last Admin Dose Admin Heparin Sodium (Porcine) (Hep Lock Nursery) 5 unit STK-MED ONCE 02/20/17 06:18 02/20/17 06:19 DC Insulin Human Regular/Sodium Chloride (Novolin R/Iv Normal Saline 150ml) 151.5 ml @ 0 mls/hr 1X ONCE 02/20/17 06:00 02/20/17 07:28 DC Ondansetron HCl (Zofran Odt) 4 mg STK-MED ONCE 02/20/17 05:50 02/20/17 05:51 DC Ondansetron HCl 8 mg 8 mg 1X ONCE 02/20/17 06:00 02/20/17 06:02 DC Sodium Chloride (Iv Sodium Chloride 0.9% 1,000ml) 1,000 ml @ 1,000 mls/hr Q1H 02/20/17 06:00 02/20/17 06:59 DC 02/20/17 07:29 1,000 MLS/HR Allergies Allergies Allergies Coded Allergies Type Severity Reaction Last Updated Verified acetaminophen Allergy Intermediate HIVES 11/27/16 Yes adhesive tape Allergy Intermediate 11/27/16 Yes I S O L A T I O N *CONTACT* Allergy Unknown 11/27/16 Yes Physical Exam Physical Exam Constitutional: in acute distress, ill in appearance. [] HENT: Normocephalic, atraumatic, bilateral external ears normal, oropharynx dry , no oral exudates, nose normal. [] Eyes: PERRLA, EOMI, conjunctiva normal, no discharge. Unable to make tears Neck: Normal range of motion, no tenderness, supple, no stridor. [] Cardiovascular:Tachycardia Heart rate regular rhythm, no murmur [] Lungs & Thorax: Bilateral breath sounds equal at apexes with scattered wheezes on auscultation . Hyperventilation. Old scars are left subclavian at area prior infected port. Abdomen: Bowel sounds decreased, soft, generalized tenderness, no masses, no pulsatile masses. [] Refuses rectal at this time. Severe dry heaving. No focal areas of pain . Skin: Warm, dry, no erythema, no rash. [] Multiple tattoos. Poor turgor Back: No tenderness, no CVA tenderness. [] Extremities: No tenderness, no cyanosis, no clubbing, ROM intact, no edema. [] Multiple areas of scarring from IV sticks. No psoas or obturator sign. Neurologic: Alert and oriented X 3, normal motor function, normal sensory function, no focal deficits noted. [] Psychologic: Affect anxious and crying, argumentative, judgement poor insight about her disease process, mood depressed Current Patient Data Vital Signs Vital Signs Date Time Temp Pulse Resp B/P Pulse Ox O2 Delivery O2 Flow Rate FiO2 02/20/17 05:40 97.5 93 22 100 Room Air Lab Results Laboratory Tests Test 02/20/17 06:20 02/20/17 06:24 O2 Saturation 96% (92-99) Arterial Blood pH 7.16 (7.35-7.45) *L Arterial Blood pCO2 at Patient Temp 15mmHg (35-46) *L Arterial Blood pO2 at Patient Temp 110mmHg (85-108) H Arterial Blood HCO3 5mmol/L (21-28) L Arterial Blood Base Excess -21mmol/L (-3-3) L FiO2 21 Maternal Serum HCG Beta Subunit < 1mIU/mL (0-6) Sodium Level 135mmol/L (136-145) L Potassium Level 5.7mmol/L (3.5-5.1) H Chloride Level 96mmol/L (98-107) L Carbon Dioxide Level < 5mmol/L (21-32) *L Anion Gap 34 (6-14) H Blood Urea Nitrogen 27mg/dL (7-20) H Creatinine 1.1mg/dL (0.6-1.0) H Estimated GFR (Cockcroft-Gault) 60.5 Glucose Level 693mg/dL (70-99) *H Calcium Level 9.1mg/dL (8.5-10.1) Magnesium Level 2.3mg/dL (1.8-2.4) Total Bilirubin 0.6mg/dL (0.2-1.0) Direct Bilirubin 0.1mg/dL (0.0-0.2) Aspartate Amino Transferase (AST) 16U/L (15-37) Alanine Aminotransferase (ALT) 30U/L (14-59) Alkaline Phosphatase 120U/L (46-116) H Creatine Kinase 39U/L (26-192) Creatine Kinase MB (Mass) < 0.5ng/mL (0.0-3.6) Creatine Kinase MB Relative Index 1.3% (0-4) Troponin I Quantitative < 0.017ng/mL (0-0.055) Total Protein 8.0g/dL (6.4-8.2) Albumin 4.1g/dL (3.4-5.0) Lipase 54U/L (73-393) L Microbiology 02/20/17 Blood Culture - Preliminary, Resulted NO GROWTH AFTER 1 DAY Microbiology 02/20/17 Blood Culture - Preliminary, Resulted NO GROWTH AFTER 1 DAY EKG EKG [] Radiology/Procedures Radiology/Procedures My interpretation chest x-ray shows no acute cardiopulmonary findings. Course & Med Decision Making Course & Med Decision Making Pertinent Labs and Imaging studies reviewed. (See chart for details). Discussed presentation, testing and tx plan with Dr. Pereira. Labs still pending at time of admit. Glucose to high to read by bedside readings. Procedure note: Left femoral arterial stick-need blood for evaluation. Blood was obtained for labs. Multiple other attempt to establish IVs and obtain blood samples-unsuccessful Left Ext. jugular placement-discussed risk and benefits- patient agrees to placement IV. . Left Ext. jugular prepped with kit. Sterile draping. Patient placement and Trendelenburg. 2 mL lidocaine left ext. jugular. . Return of venous blood min. but did flush. . . Sterile dressing. Patient tolerated procedure well. Discussed presentation, testing and treatment plan with . Will admit for further evaluation and treatment. Reviewed presentation testing with - he will check pending labs. [] Final Impression Final Impression 1. Diabetes 2. Dehydration[] 3. DKA 4. Critical Metabolic Acidosis- ph 7.16. 5. Leukocytosis with elevated segs 6. Polysubstance abuse 7. Generalized abdomen pain Problems: Dragon Disclaimer Dragon Disclaimer This electronic medical record was generated, in whole or in part, using a voice recognition dictation system. YELENA HENRY MD Feb 20, 2017 05:33
[2017-02-20] MEDS ORDERED: ONDANSETRON ODT 4 MG TAB.RAPDIS ONE (05:50)
[2017-02-20] MEDS ORDERED: ONDANSETRON PF 4 MG/2 ML VIAL. IV ONE (06:00)
[2017-02-20] MEDS ORDERED: INSULIN REGULAR 150 UNIT in 0.9 % SODIUM CHLORIDE 150ML 150 ML IV ONE ×2 (06:00→07:00)
[2017-02-20] MEDS ORDERED: IV NORMAL SALINE 1,000ML 1,000 ML IV SCH ×2 (06:00→07:44)
[2017-02-20] MEDS ORDERED: HEPARIN PF 5 UNIT/5 ML DISP.SYRIN. IV ONE (06:18)
[2017-02-20] MEDS ORDERED: ONDANSETRON PF 4 MG/2 ML VIAL. IV PRN (06:30)
[2017-02-20 06:31] LABS: BASE EXCESS ABG -21 mmol/L (-3-3); HCO3 ABG 5 mmol/L (21-28); PCO2 ABG 15 mmHg (35-46); PH ABG 7.16 (7.35-7.45); PO2 ABG 110 mmHg (85-108)
[2017-02-20 06:32] LABS: SAT O2 ABG 96 % (92-99)
[2017-02-20] MEDS ORDERED: CEFTRIAXONE IM 1 GM VIAL. IM ONE (07:00)
[2017-02-20 07:05] LABS: ALBUMIN 4.1 g/dL (3.4-5.0); ALK PHOS 120 U/L (46-116); ALT (SGPT) 30 U/L (14-59); AST (SGOT) 16 U/L (15-37); BLOOD UREA NITROGEN 27 mg/dL (7-20); CALCIUM 9.1 mg/dL (8.5-10.1); CHLORIDE 96 mmol/L (98-107); CREATINE KINASE 39 U/L (26-192); CREATININE 1.1 mg/dL (0.6-1.0); DIRECT BILIRUBIN 0.1 mg/dL (0.0-0.2); GFR 60.5; LIPASE 54 U/L (73-393); MAGNESIUM 2.3 mg/dL (1.8-2.4); POTASSIUM 5.7 mmol/L (3.5-5.1); SODIUM 135 mmol/L (136-145); TOTAL BILIRUBIN 0.6 mg/dL (0.2-1.0)
[2017-02-20 07:10] LABS: ANION GAP 34 (6-14); GLUCOSE 693 mg/dL (70-99)
[2017-02-20] MEDS ORDERED: INSULIN REGULAR 150 UNIT in 0.9 % SODIUM CHLORIDE 150ML 150 ML IV PRN ×2 (07:30→07:45)
[2017-02-20] MEDS ORDERED: DEXTROSE 50% 25 GM / 50ML DISP.SYRIN. IV PRN (07:30)
[2017-02-20] MEDS ORDERED: POTASSIUM CHLORIDE 10MEQ 100 ML IV PRN ×5 (07:45)
[2017-02-20] MEDS ORDERED: POTASSIUM CL 40MEQ IN 0.9%NACL 1,000 ML IV SCH (07:45)
[2017-02-20] MEDS ORDERED: MAGNESIUM SULFATE 2GM 50 ML IV PRN (07:45)
[2017-02-20] MEDS: IV NORMAL SALINE 1,000ML 1,000 ML IV SCH ×2 (08:38→09:36)
[2017-02-20 08:41] LABS: BARBITURATES NEG (NEG); BENZODIAZEPINES NEG (NEG); CANNABINOIDS NEG (NEG); COCAINE NEG (NEG); METHADONE NEG (NEG); OPIATES NEG (NEG); PHENCYCLIDINE NEG (NEG)
[2017-02-20 08:43] LABS: AMPHETAMINE/METHAMPHETAMINE POS (NEG)
[2017-02-20 08:44] LABS: BASO # 0.2 x10^3/uL (0.0-0.2); BASO % 1 % (0-3); EOS % 0 % (0-3); HEMATOCRIT 44.8 % (36.0-47.0); HEMOGLOBIN 13.5 g/dL (12.0-15.5); LYMPH # 1.4 x10^3/uL (1.0-4.8); LYMPH % 7 % (24-48); MEAN CORPUSCULAR HEMOGLOBIN 29 pg (25-35); MEAN CORPUSCULAR HGB CONC 30 g/dL (31-37); MEAN CORPUSCULAR VOLUME 97 fL (79-100); MONO # 0.7 x10^3/uL (0.0-1.1); MONO % 3 % (0-9); NEUT # 18.7 x10^3uL (1.8-7.7); NEUT % 89 % (31-73); PLATELET COUNT 451 x10^3/uL (140-400); RED CELL DISTRIBUTION WIDTH 15.6 % (11.5-14.5)
[2017-02-20 08:48] LABS: CALCIUM 8.5 mg/dL (8.5-10.1); CREATININE 1.2 mg/dL (0.6-1.0); GFR 54.7; PHOSPHORUS 5.7 mg/dL (2.6-4.7); POTASSIUM 5.9 mmol/L (3.5-5.1)
[2017-02-20 08:58] LABS: BILIRUBIN,URINE NEG (NEG); CLARITY,URINE CLEAR; COLOR,URINE STRAW; GLUCOSE,URINE 500 mg/dL (NEG)
[2017-02-20 08:59] LABS: BACTERIA,URINE 0 /HPF (0-FEW); NITRITE,URINE NEG (NEG); RBC,URINE 0 /HPF (0-2); SQUAMOUS EPITHELIAL CELL,UR FEW /LPF; UROBILINOGEN,URINE 0.2 mg/dL (0.2 mg/dL); WBC,URINE 0 /HPF (0-4)
[2017-02-20] MEDS ORDERED: SODIUM BICARB NSY 4.2% 5 MEQ/10 ML DISP.SYRIN. IV ONE (09:00)
[2017-02-20] MEDS ORDERED: PROMETHAZINE 12.5 MG in IV NORMAL SALINE 50ML 50 ML IV PRN (09:15)
[2017-02-20] MEDS ORDERED: DIPHENHYDRAMINE 50 MG/ML VIAL IVP PRN (09:30)
[2017-02-20 09:33] LABS: % BANDS 6 % (0-9); % LYMPHS 11 % (24-48); % MONOS 2 % (0-10); % SEGS 81 % (35-66)
[2017-02-20 09:39] LABS: PLATELET CLUMP PRESENT; PLT ESTIMATE ADEQUATE (ADEQUATE)
[2017-02-20] MEDS ORDERED: PROMETHAZINE 12.5 MG in IV NORMAL SALINE 50ML 50 ML IV ONE (09:45)
[2017-02-20] MEDS: KETOROLAC 15 MG/ML VIAL. IV PRN ×2 (10:25→19:25)
[2017-02-20 11:10] LABS: CALCIUM 7.7 mg/dL (8.5-10.1); GFR 67.6; POTASSIUM 4.5 mmol/L (3.5-5.1)
[2017-02-20] MEDS ORDERED: IV DEXTROSE 5 %-0.45 % NACL 1,000 ML IV SCH (11:45)
[2017-02-20] MEDS ORDERED: POTASSIUM CHLORIDE 20 MEQ in IV DEXTROSE 5 %-0.45 % NACL 1,000 ML IV SCH (11:59)
[2017-02-20] MEDS: POTASSIUM CL 20MEQ D5-0.45NACL 1,000 ML IV SCH ×3 (12:13→23:13)
[2017-02-20] MEDS ORDERED: TRAMADOL 50 MG TABLET. PO PRN (14:00)
[2017-02-20] MEDS ORDERED: PROMETHAZINE 25 MG SUPP.RECT. RC PRN (14:00)
--- NOTE | 2017-02-20 14:10 | HP ---
ADMIT DATE: 02/20/2017 REASON FOR ADMISSION: DKA. HISTORY OF PRESENT ILLNESS: This is a 26-year-old female with brittle type 1 diabetes, who has had repeated admissions for DKA, hyperglycemia, and dehydration. The patient was finally admitted that she has been a recurrent user of methamphetamine since age 17 and her drug screen was positive for methamphetamine. She has been throwing up and nauseated also. PAST MEDICAL HISTORY: Type 1 diabetes, hypomagnesemia, adjustment disorder, tobacco use disorder and gastroparesis. ALLERGIES: TYLENOL and ADHESIVE TAPE. MEDICATIONS: The patient is supposed to be taking escitalopram 5 mg daily, insulin on a sliding scale NovoLog 14 units 4 times a day after meals, Lantus 14 units b.i.d., magnesium oxide 1 tab t.i.d., metoclopramide 5 mg q.i.d., pantoprazole 40 mg daily, Phenergan and tramadol as needed. FAMILY HISTORY: Negative. SOCIAL HISTORY: The patient lives at home. She has had multiple different relationships since being admitted. She had multiple admissions to the hospital. She does admit to smoking of cigarette every now and then every couple of days. She is to be every day smoker, does not work and has not been able to get disability. REVIEW OF SYSTEMS: Positive for aches and pains, nausea and vomiting methamphetamine use. OBJECTIVE: VITAL SIGNS: Blood pressure 87/48, pulse 121, respirations 16, pulse ox 100% on room air. HEENT: The patient's color is pale. Nose was patent. Her throat was clear. Her tongue was moist. NECK: Supple. LUNGS: Clear. CARDIOVASCULAR: Regular rhythm and rate, tachycardic. ABDOMEN: Soft, nontender. EXTREMITIES: Without edema. The patient . LABORATORY DATA: White count 21,000, platelet count 451,000. Chemistry: Sodium 142, potassium 4.5. Her carbon dioxide was 5 and now it is 11, glucose was not it is 200. Calcium is 7.7, magnesium was normal. Albumin is 4.1. ABG: Her pH was 7.16, positive acetone. ASSESSMENT: 1. Diabetic ketoacidosis. 2. Positive drug screen methamphetamine. 3. Tobacco use disorder. 4. Adjustment disorder. 5. Hypomagnesemia is normal currently. PLAN: DKA protocol and strongly encouraged to rehab, which the patient at the moment is willing to do. BARRY MORELAND DO DR: Riaz JOB#: [id number] / [id number]
[2017-02-20 14:54] LABS: CALCIUM 7.9 mg/dL (8.5-10.1); CREATININE 0.9 mg/dL (0.6-1.0); GFR 76.3; POTASSIUM 4.9 mmol/L (3.5-5.1)
[2017-02-20] MEDS: METOCLOPRAMIDE 5 MG TABLET PO SCH ×2 (15:24→21:00)
[2017-02-20] MEDS: INSULIN ASPART 300 UNITS/3 ML INSULN.PEN SQ SCH ×2 (15:24→21:00)
[2017-02-20 19:28] LABS: CALCIUM 8.1 mg/dL (8.5-10.1); CREATININE 0.8 mg/dL (0.6-1.0); GFR 87.4
[2017-02-20] MEDS: MAGNESIUM OXIDE 400 MG TABLET PO SCH (21:00)
[2017-02-20] MEDS: INSULIN DETEMIR 300 UNITS/3 ML INSULN.PEN. SQ SCH (21:00)
[2017-02-20] MEDS: MUPIROCIN 2% TOPICAL OINTMENT 22GM TUBE. TP SCH (23:14)
[2017-02-21] VITALS (16 sets, daily range): BP systolic 86–140; BP diastolic 48–91
[2017-02-21 01:11] LABS: HEMOGLOBIN A1C 10.9 % (4.8-5.6)
[2017-02-21] MEDS: POTASSIUM CL 20MEQ D5-0.45NACL 1,000 ML IV SCH ×2 (05:03→11:07)
--- NOTE | 2017-02-21 06:13 | ACF ---
Admission Criteria Forms GENERAL ADMISSION CRITERIA (Place 'X' for any and all applicable criteria): Admission is indicated for ANY ONE of the following: [ ]I. Hemodynamic instability as indicated by ANY ONE of the following(1)(2) (3)(4)(5): [ ]a) Vital sign abnormality not readily corrected by appropriate treatment within 12 to 24 hours indicated by ANY ONE of the following: [ ]i) Hypotension [ ]ii) Symptomatic Tachycardia unresponsive to treatment (eg , analgesia, fluids, sedation as indicated) [ ]iii) Orthostatic vital sign changes unresponsive to treatment (eg, fluids) [ ]b) Vital sign abnormality that is severe indicated by ANY ONE of the following: [ ]i) Inadequate perfusion indicated by ANY ONE of the following: [ ]1) Lactic acidosis (greater than 2 mmol/L) [ ]2) New abnormal capillary refill (greater than 3 seconds) [ ]3) Other metabolic acidosis (arterial pH less than 7.35) not otherwise explained [ ]4) Reduced urine output [ ]5) Altered mental status [ ]6) Myocardial Ischemia [ ]v) Mean arterial pressure[A] less than 60 mm Hg [ ]vi) Mean arterial pressure[A] less than 70 mm Hg after 30 minutes of appropriate treatment (eg, fluid resuscitation) [ ]vii) IV inotropic or vasopressor medication required to maintain adequate blood pressure or perfusion [ ]viii) Sustained heart rate greater than 120 beats per minute in adult or child 6 years or older[B]] [ ]II. Hypertension requiring inpatient treatment as indicated by ANY ONE of the following(6)(7)(8): [ ]a) SBP greater than 220 mm Hg or DBP greater than 120 mm Hg despite treatment [ ]b) SBP greater than 140 mm Hg or DBP greater than 100 mm Hg with evidence of acute end organ damage as indicated by ANY ONE of the following: [ ]i) Encephalopathy [ ]ii) Acute renal failure as indicated by new onset of ANY ONE of the following(9)(10)(11)(12)(13): [ ]1) A 3-fold rise in serum creatinine from baseline [ ]2) Serum creatinine greater than 4 mg/dL ( 354 micromoles/L) with acute rise greater than 0.5 mg/dL (44.2 micromoles/L) [ ]3) Reduction of more than 75% in estimated glomerular filtration rate from baseline [ ]4) Estimated glomerular filtration rate less than 35 mL/min/1.73m2 (0.59 mL/sec/1.73m2) in child up to 18 years of age [ ]5) Cessation of urine output indicated by ALL of the following: [ ]A. Adequate volume status [ ]B. Inadequate urine output as indicated by ANY ONE of the following: [ ]a. Urine output less than 0.3 mL/kg/hr for 24 hours [ ]b. Anuria (urine output less than 0.1 mL/kg/hr) for 12 hours [ ]iii) Aortic dissection [ ]iv) Myocardial ischemia [ ]v) Left ventricular heart failure [ ]vi) Retinal hemorrhage [ ]vii) Other significant finding [ ]c) Hypertension in child requiring inpatient treatment as indicated by ALL of the following(14)(15)(16): [ ]i) Outpatient treatment not effective, not available, or not appropriate [ ]ii) SBP or DBP greater than 95th percentile for age [ ]iii) Evidence of acute end organ damage as indicated by ANY ONE of the following: [ ]1) Altered mental status [ ]2) Acute renal failure as indicated by new onset of ANY ONE of the following(9)(10)(11)(12)(13): [ ]A. A 3-fold rise in serum creatinine from baseline [ ]B. Serum creatinine greater than 4 mg/dL (354 micromoles/L) with acute rise greater than 0.5 mg/dL (44.2 micromoles/L) [ ]C. Reduction of more than 75% in estimated glomerular filtration rate from baseline [ ]D. Estimated glomerular filtration rate less than 35 mL/min/1.73m2 (0.59 mL/sec/1.73m2)in child up to 18 years of age [ ]E. Cessation of urine output indicated by ALL of the following: [ ]a. Adequate volume status [ ]b. Inadequate urine output as indicated by ANY ONE of the following: [ ]1) Urine output less than 0.3 mL/kg/hr for 24 hours [ ]2) Anuria (urine output less than 0.1 mL/kg/hr) for 12 hours [ ]3) Severe headache [ ]4) Visual disturbance [ ]5) Retinal hemorrhage [ ]6) Other significant finding [ ]III. Acute cardiac or peripheral ischemia as indicated by ANY ONE of the following: [ ]a) Acute coronary syndrome(17)(18) [ ]b) Acute peripheral ischemia (eg, pulseless, cool, mottled, or cyanotic extremity)(19) [ ]IV. Cardiac arrhythmias or findings of immediate concern indicated by ANY ONE of the following(20)(21): [ ]a) Heart rhythms that are inherently dangerous or unstable indicated by ANY ONE of the following(22)(23)(24): [ ]i) Resuscitated ventricular fibrillation or cardiac arrest [ ]ii) Ventricular escape rhythm [ ]iii) Sustained ventricular tachycardia (30 seconds or more of ventricular rhythm at greater than 100 beats per minute) [ ]iv) Nonsustained ventricular tachycardia and ANY ONE of the following: [ ]1) Suspected cardiac ischemia as cause or consequence of ventricular tachycardia [ ]2) In setting of acute myocarditis [ ]b) Unstable cardiac conduction defects indicated by ANY ONE of the following(24)(25)(26): [ ]i) Type II second-degree atrioventricular block [ ]ii) Third-degree atrioventricular block [ ]iii) New-onset left bundle branch block with suspected myocardial ischemia [ ]c) Any heart rhythm and ANY ONE of the following(22)(23)(27)(28)( 29): [ ] i) Continuous long-term ECG monitoring needed (eg, initiation of drug requiring monitoring for more than 24 hours) [ ] ii) Patient has automatic implanted cardioverter defibrillator that is repeatedly firing, malfunctioning, or in need of immediate adjustment of settings beyond the scope of ambulatory or observation care. [ ]d) Heart rhythms of concern due to ANY ONE of the following: [ ]i) Hypotension [ ]ii) Respiratory distress [ ]iii) Association with other significant symptoms (eg, bradycardia with syncope or ongoing dizziness, supraventricular tachycardia with chest pain) (27)(28) (30) [ ] V. Severe heart failure as indicated by ANY ONE of the following ( 31)(32): [ ]a) Respiratory distress [ ]b) Hypotension [ ]c) Anasarca (refractory to outpatient therapy) [ ]d) Cardiac arrhythmias of immediate concern [ ]e) Myocardial ischemia [ ]. Respiratory abnormalities, including ANY ONE of the following(33)(34) (35)(36): [ ]a) Respiratory rate greater than 30 breaths per minute unresponsive to treatment [A] [ ]b) New saturation of arterial oxygen less than 90% [ ]c) New partial pressure of carbon dioxide greater than 44 mm Hg ( 5.9 kPa) [ ]d) Supplemental oxygen or respiratory treatments needed that are new or not performable at other levels of care [ ]e) New-onset cyanosis [ ]f) Inability to protect airway [ ]g) Chronic lung disease with severe deterioration (not responsive to emergency and observation care treatment as appropriate) as indicated by ANY ONE of the following(34)(36 ): [ ]i) SaO2 5% below baseline in patient with chronic hypoxemia [ ]ii) New requirement for supplemental oxygen to keep SaO2 at baseline or acceptable level [ ]iii) Required supplemental oxygen performable only in acute inpatient setting [ ]iv) Severe airflow or ventilation abnormalities [ ]v) Previously mobile patient unable to walk between rooms [ ]vi Inability to eat or sleep due to dyspnea [ ]vii) Rapid rate of exacerbation onset [ ]viii) Altered mental status ]VII. Severe airflow or ventilation abnormalities (not responsive to emergency and observation care treatment as appropriate) as indicated by ANY ONE of the following(33)(34)(35)(37): [ ]a) PCO2 greater than 42 mm Hg (5.6 kPa) and pH less than 7.35 (new ) [ ]b) Documented PCO2 increased more than 5 mm Hg (0.7 kPa) from disease baseline [ ]c) Airflow measurements [B] less than 60% of previous best or predicted (eg, peak expiratory flow rate less than 300 L/minute) despite intensive emergent treatment [C] [ ]d) Required respiratory treatments that are performable only in acute inpatient setting [ ]VIII. Impending or actual respiratory arrest ( Also use Respiratory Failure GRG for severe respiratory disease and long-term mechanical ventilation patients) [ ]IX. Neurologic abnormalities, including ANY ONE of the following: [ ]a) New findings that suggest ANY ONE of the following: [ ]i) TORCH SOLDERER infection(38) [ ]ii) Cerebral bleeding, ischemia, or vasospasm(39)(40) [ ]iii) Increased intracranial pressure, hydrocephalus, or cerebral edema(41)(42)(43) [ ]iv) Spinal cord injury(44) [ ]b) Uncontrolled seizures(45) [ ]c) New-onset coma (eg, Juani coma scale score less than 9) or unexplained abnormal mental status (eg, Juani coma scale score less than 14) [D](41)(46)(47) [ ]X. New-onset severe neurologic findings requiring inpatient care; examples include(42)(48)(49): [ ]a) Papilledema [ ]b) Cerebral edema [ ]c) Mass effect on CT scan [ ]XI. Suspected acute intra-abdominal process with peritoneal signs, abdominal mass, or similar findings (50)(51)(52) [X]XII. Severe physiologic disorder remaining after emergency or observation level care (as appropriate) as indicated by ANY ONE of the following (53): [ ]a) Significant dehydration [X]b) Diabetic ketoacidosis [ ]c) Hyperglycemic hyperosmolar state (eg, osmolality greater than 320 mOsm/kg (mmol/kg) [ ]d) Hypoglycemia [ ]e) Other (new) acid-base disorder with pH less than 7.35 or greater than 7.5(54) [ ]f) Thyroid storm (55) [ ]g) Myxedema coma (55) [ ]XIII. Abdominal abnormalities with ANY ONE of the following(56)(57): [ ]a) Absent bowel sounds with complete ileus [ ]b) Signs of intestinal obstruction or peritonitis [E] [ ]c) Nausea and vomiting that cannot be controlled with outpatient or observation care [ ]XIV. Acute renal failure as indicated by new onset of ANY ONE of the following(9)(10)(11)(12)(13): [ ]a) A 3-fold rise in serum creatinine from baseline [ ]b) Serum creatinine greater than 4 mg/dL (354 micromoles/L) with acute rise greater than 0.5 mg/dL (44.2 micromoles/L) [ ]c) Reduction of more than 75% in estimated glomerular filtration rate from baseline [ ]d) Estimated glomerular filtration rate less than 35 mL/min/ 1.73m2 (0.59 mL/sec/1.73m2) in child up to 18 years of age [ ]e) Cessation of urine output indicated by ALL of the following: [ ]i) Adequate volume status [ ]ii) Inadequate urine output as indicated by ANY ONE of the following: [ ]1) Urine output less than 0.3 mL/kg/hr for 24 hours [ ]2) Anuria (urine output less than 0.1 mL/kg/hr) for 12 hours [ ]XV. Significant uremic complications as indicated by ANY ONE of the following(58)(59)(60): [ ]a) Outpatient therapy is ineffective or not feasible for ANY ONE of the following: [ ]i) Severe heart failure [ ]ii) Severehypertension [ ]iii) Pleural effusion [ ]iv) Pericarditis or pericardial effusion [ ]b) Cardiac arrhythmias of immediate concern [ ]c) Intractable nausea or vomiting [ ]d) Recurrent seizures [ ]e) Encephalopathy [ ]f) Bleeding abnormalities (eg, platelet dysfunction) with active (eg, gastrointestinal) bleeding [ ]g) Dialysis indicated before long-term access or ambulatory arrangements can be made [ ]h) Significant metabolic or electrolyte abnormalities (eg, severe acidosis or hyperkalemia) [ ]XVI. High fever or other high-risk infection situation as indicated by ANY ONE of the following(61)(62)(63)(64): [ ]a) Outpatient and observation care antimicrobial treatment unavailable, not effective, or not appropriate [ ]b) Documented bacteremia [ ]c) Temperature greater than 40.5 degrees C (104.9 degrees F) ( oral) [ ]d) Temperature greater than 39.5 degrees C (103.1 degrees F) ( oral) or less than 36 degrees C (96.8 degrees F) (rectal) that does not respond to e treatment and observation care [ ] XVII. Temperature less than 95 degrees F (35 degrees C)(rectal)(65) [ ] XVIII. Severe nutritional abnormalities as indicated by ALL of the following (66)(67): [ ]a) Inability to tolerate or establish sufficient oral or other enteral nutrition in outpatient setting [ ]b) Parenteral nutrition regimen need that must be implemented on inpatient basis [ ] XIX. Severe electrolyte abnormalities indicated by ALL of the following(68) (69)(70): [ ]a) Electrolytes and associated findings are not as expected for patient baseline or acceptable treatment effects. [ ]b) Severe abnormalities indicated by ANY ONE of the following: [ ]i) Sodium less than 130 mEq/L (mmol/L) (new) [ ]ii)Sodium less than 135 mEq/L (mmol/L) with ANY ONE of the following: [ ]1) Uncorrectable (to near normal or chronic baseline) after trial of outpatient and emergency treatment [ ]2) Altered mental status [ ]3) Seizures [ ]4) Severe medical etiology requiring inpatient management (eg, heart failure, hypovolemia) [ ]iii) Sodium greater than 155 mEq/L (mmol/L) [ ]iv) Sodium greater than 150 mEq/L (mmol/L) with ANY ONE of the following: [ ]1) Uncorrectable (to near normal or chronic baseline) with outpatient and emergency treatment [ ]2) Altered mental status [ ]3) Seizures [ ]4) Severe medical etiology (eg, hypovolemia, diabetes insipidus) [ ]v) Potassium less than 2.5 mEq/L (mmol/L) despite outpatient and emergency treatment [ ]vi) Potassium less than 3 mEq/L (mmol/L) with ANY ONE of the following: [ ]1) Weakness [ ]2) Cardiac abnormality (eg, arrhythmia, conduction disturbance) [ ]3) Cardiac ischemia [ ]4) Ileus [ ]5) Ongoing medical cause requiring inpatient management (eg, acute renal wasting or SIADH) [ ]6) Other severe symptoms [ ]vii) Potassium greater than 6.5 mEq/L (mmol/L) [ ]viii) Potassium greater than 5 mEq/L (mmol/L) with ANY ONE of the following: [ ]1) Uncorrectable (to near normal or chronic baseline) with outpatient and emergency treatment [ ]2) Severe ECG findings [F] [ ]3) Acute worsening of renal failure (creatinine greater than 2.5 mg/dL (221 micromoles/L) or significant elevation for age and size) [ ]4) Severe weakness [ ]5) Severe medical etiology (eg, hemolysis, infection, drug overdose) [ ]ix) Calcium less than 7 mg/dL (1.75 mmol/L) despite outpatient and emergency treatment (72) [ ]x) Calcium less than 8 mg/dL (2 mmol/L) with significant symptoms or findings; examples include(72): [ ]1) Altered mental status [ ]2) Muscle spasms [ ]3) Seizures [ ]4) Breathing difficulty [ ]5) Cardiac abnormality (eg, arrhythmia or conduction disturbance) [ ]xi) Calcium greater than 14 mg/dL (3.5 mmol/L)(72) [ ]xii) Calcium greater than 12 mg/dL (3 mmol/L) with ANY ONE of the following(72): [ ]1) Uncorrectable (to near normal or chronic baseline) with outpatient and emergency treatment [ ]2) Significant dehydration or hypovolemia as indicated by ALL of the following(70)(73)(74): [ ]A. Not resolved with initial treatments [ ]B. Clinically significant dehydration as indicated by ANY ONE of the following: [ ]a. Vomiting refractory to outpatient treatment (ie, precluding oral rehydration) [ ]b. Inability to drink [ ]c. Hypernatremia or other electrolyte abnormality unable to be corrected with outpatient and emergency treatment [ ]d. Failure to remain hydrated with outpatient therapy [ ]e. Reduced urine output [ ]f. Hypotension [ ]g. Serious cause for dehydration requiring acute hospitalization (eg, bowel obstruction, increased intracranial pressure, infectious cause) [ ]h. Child with ANY ONE of the following(75): [ ]1) Severe abdominal tenderness [ ]2) Adequate care not available at home [ ]3) Severe dehydration ( greater than 9% loss of body weight) [ ]4) Significant symptoms or findings; examples include: [ ]A. Altered mental status [ ]B. Cardiac abnormality (eg, arrhythmia, conduction disturbance) [ ]C. Malignant etiology requiring inpatient treatment [ ]xiii) Phosphorus less than 1 mg/dL (0.32 mmol/L) [ ]xiv) Phosphorus less than 1.5 mg/dL (0.48 mmol/L) with ANY ONE of the following: [ ]1) Patient unresponsive to outpatient and emergency treatment [ ]2) Significant symptoms or findings; examples include: [ ]A. Weakness [ ]B. Altered mental status [ ]C. Breathing difficulty [ ]D. Seizures [ ]E. Rhabdomyolysis [ ]xv) Phosphorus greater than 10 mg/dL (3.2 mmol/L) [ ]xvi) Phosphorus greater than 4.5 mg/dL (1.45 mmol/L) (new) with ANY ONE of the following: [ ]1) Severe medical etiology (eg, crush injury, acute renal failure) [ ]2) Associated hypocalcemia with significant findings; examples include: [ ]A. Neurologic symptoms [ ]B. Altered mental status [ ]C. Muscle spasms [ ]D. Seizures [ ]E. Breathing difficulty [ ]F. Cardiac abnormality (eg, arrhythmia, conduction disturbance) [ ]xvii) Magnesium less than 1 mg/dL (0.41 mmol/L) [ ]xviii) Magnesium less than 1.5 mg/dL (0.62 mmol/L) with ANY ONE of the following: [ ]1) Patient unresponsive to outpatient and emergency treatment [ ]2) Associated hypocalcemia with significant findings; examples include: [ ]A. Altered mental status [ ]B. Muscle spasms [ ]C. Seizures [ ]D. Breathing difficulty [ ]E. Cardiac abnormality (eg, arrhythmia , conduction disturbance) [ ]3) Associated hypokalemia (potassium less than 3 mEq/L (mmol/L)) with risk of arrhythmia [ ]xix) Magnesium greater than 4 mEq/L (2 mmol/L) [ ]xx) Magnesium greater than 2.5 mEq/L (1.25 mmol/L) with significant symptoms or findings; examples include: [ ]1) Weakness [ ]2) Altered mental status [ ]3) Cardiac abnormality (eg, arrhythmia, conduction disturbance) [ ]4) Breathing difficulty [ ]5) Severe medical etiology (eg, renal failure, hypovolemia) [ ]xxi) Uric acid greater than 20 mg/dL (1190 micromoles/L)(76) [ ]xxii) Uric acid greater than 8 mg/dL (476 micromoles/L) with significant symptoms or findings of tumor lysis syndrome; examples include(76): [ ]1) Creatinine greater than 1.5 times upper limit of normal [ ]2) Cardiac abnormality (eg, arrhythmia, conduction disturbance) [ ]3) Seizure [ ]XX. Acute blood loss causing significant abnormality as indicated by ANY ONE of the following(77)(78): [ ]a) Hemoglobin less than 10 g/dL (100 g/L) (not baseline) [ ]b) Hematocrit less than 30% (0.30) (not baseline) [ ]c) Repeat hematocrit decreased more than 2% (0.02) [ ]d) Uncontrolled bleeding [ ]XXI. Severe anemia indicated by ANY ONE of the following(78)(79): [ ]a) Altered mental status [ ]b) Chest pain [ ]c) Exertional dyspnea [ ]d) Syncope [ ]e) Other findings suggesting inadequate perfusion [ ]f) Treatment with transfusion or volume replacement is ineffective at resolving ANY ONE of the following [G]: [ ]i) Tachycardia for age [ ]ii) Orthostatic vital sign changes as indicated by ANY ONE of the following(80): [ ]1) Fall in SBP of 20 mm Hg or more 1 to 3 minutes after patient sits or stands from recumbent position [ ]2) Fall in DBP of 10 mm Hg or more 1 to 3 minutes after patient sits or stands from recumbent position [ ]XXII. High-risk low platelet count as indicated by ANY ONE of the following( 81)(82): [ ]a) Severe or life-threatening bleeding (eg, intracranial, major gastrointestinal, or extensive mucosal bleeding), with any reduced platelet count [ ]b) Platelet count less than 20,000/mm3 (20 x109/L) with any active bleeding [ ]c) Platelet count less than 10,000/mm3 (10 x109/L) with minor purpura or petechiae [ ]d) Platelet count less than 5000/mm3 (5 x109/L) [ ]e) Low platelet count with hemolytic anemia [ ]XXIII. Disseminated intravascular coagulation(77)(83) [ ]XXIV. Severe adverse drug or systemic toxin reaction requiring inpatient treatment; examples include(84)(85): [ ]a) Serotonin syndrome(86) [ ]b) Neuroleptic malignant syndrome(86) [ ]c) Cholinergic syndrome with severe symptoms (eg, bronchorrhea, weakness, mental status changes, seizures) [ ]d) Sympathetic syndrome with severe symptoms (eg, seizures, mental status changes, cardiac dysrhythmias) [ ]e) Anticholinergic syndrome [ ]XXV. Severe pain requiring acute inpatient management as indicated by ALL of the following (87)(88)(89): [ ]a) Continuous or frequent (eg, every 2 to 4 hours) parenteral analgesics required [H] [ ]b) Rapid improvement expected from treatment or acute intervention (eg, surgery, anesthesia procedure) [ ]XXVI.Severe behavioral health issues judged unmanageable at a lower level of care (eg, residential) in a patient who is ANY ONE of the following(91) [ ]a) Acutely suicidal [ ]b) A danger to self (eg, self-mutilating or suicidal behavior) [ ]c) A danger to others (eg, assaultive or homicidal behavior) [ ]d) Incapacitated because of grave disability (eg, inability to provide for self at lower level of care) (92) [ ]XXVII. Inpatient monitoring needed; examples include(1)(3)(87)(93)(94)(95)(96 ): [ ]a) Vital signs, neurologic signs, or vascular checks more frequently than every 4 hours [ ]b) Cardiac or respiratory monitoring beyond the scope (eg, over 24 hours) of observation care [ ]c) Pulmonary artery catheter monitoring [ ]d) Suspected compartment syndrome(97) (98) [ ]e) Cerebral bleeding, hydrocephalus, or vasospasm monitoring [ ]f) Increased intracranial pressure or cerebral edema monitoring [ ]g) monitoring [ ]XXVIII. Treatment requiring inpatient care; examples include: [ ]a) IV fluid to replace significant ongoing losses (greater than 3 L/m2 per day)(53) [ ]b) High concentration oxygen (greater than 40%)(33)(99)(100) [ ]c) Frequent respiratory therapy (more frequently than every 4 hours) to maintain airflow rates greater than 60% of baseline(33)(99)(100) [ ]d) Epidural analgesia(87) [ ]e) IV anticoagulation, vasoactive, or antiarrhythmic medication(19 )(23) [ ]f) Acute thrombolytics (generally require 24 hours of observation )(101)(102) [ ]XXIX. Emergency procedures needed; examples include: [ ]a) Emergency inpatient surgery [ ]b) Temporary pacemaker placement(103) [ ]c) Chest tube placement with active evacuation (eg, suction, drainage)(104) [ ]d) Emergent cardioversion(105) [ ]e) Emergent cardiac or vascular procedures (eg, cardiac catheterization, angioplasty) (17)(18) [ ]f) Emergent dialysis access placement and institution(10)(106) [ ]g) Emergent pericardiocentesis(107) [ ]h) Emergent plasmapheresis or leukapheresis(83) [ ]i) Emergent tracheostomy The original [employer] content created by [employer] has been revised. The portions of the content which have been revised are identified through the use of italic text or in bold, and [email or web address] has neither reviewed nor approved the modified material. All other unmodified content is copyright [employer]. Please see references footnoted in the original [employer] edition 2016 Admission Criteria Met?: Yes ROQUE GONZALES Feb 21, 2017 06:13
[2017-02-21] MEDS: PANTOPRAZOLE 40 MG TABLET. PO SCH (07:01)
[2017-02-21] MEDS: METOCLOPRAMIDE 5 MG TABLET PO SCH ×4 (07:01→20:28)
[2017-02-21] MEDS: KETOROLAC 15 MG/ML VIAL. IV PRN ×2 (07:38→20:29)
[2017-02-21 07:52] LABS: BASO % 1 % (0-3); EOS # 0.1 x10^3/uL (0.0-0.7); EOS % 1 % (0-3); HEMATOCRIT 33.1 % (36.0-47.0); HEMOGLOBIN 10.9 g/dL (12.0-15.5); LYMPH # 2.3 x10^3/uL (1.0-4.8); LYMPH % 27 % (24-48); MEAN CORPUSCULAR HEMOGLOBIN 30 pg (25-35); MEAN CORPUSCULAR HGB CONC 33 g/dL (31-37); MEAN CORPUSCULAR VOLUME 91 fL (79-100); MONO # 0.6 x10^3/uL (0.0-1.1); MONO % 7 % (0-9); NEUT # 5.6 x10^3uL (1.8-7.7); NEUT % 65 % (31-73); PLATELET COUNT 347 x10^3/uL (140-400); RED BLOOD COUNT 3.64 x10^6/uL (3.50-5.40); RED CELL DISTRIBUTION WIDTH 14.4 % (11.5-14.5)
[2017-02-21 08:06] LABS: ALBUMIN 2.7 g/dL (3.4-5.0); CALCIUM 7.8 mg/dL (8.5-10.1); CREATININE 0.8 mg/dL (0.6-1.0); GFR 87.4; POTASSIUM 3.7 mmol/L (3.5-5.1); TOTAL BILIRUBIN 0.3 mg/dL (0.2-1.0); TOTAL PROTEIN 5.5 g/dL (6.4-8.2)
[2017-02-21 08:07] LABS: WHITE BLOOD COUNT 8.6 x10^3/uL (4.0-11.0)
[2017-02-21] MEDS: ESCITALOPRAM 5 MG TABLET PO SCH (08:35)
[2017-02-21] MEDS: MAGNESIUM OXIDE 400 MG TABLET PO SCH ×3 (08:35→20:28)
[2017-02-21] MEDS: MUPIROCIN 2% TOPICAL OINTMENT 22GM TUBE. TP SCH ×2 (08:35→20:29)
[2017-02-21] MEDS: INSULIN ASPART 300 UNITS/3 ML INSULN.PEN SQ SCH ×4 (08:36→20:30)
[2017-02-21] MEDS: INSULIN DETEMIR 300 UNITS/3 ML INSULN.PEN. SQ SCH ×2 (08:36→20:29)
[2017-02-22 00:15] VITALS: BP 110/65
--- NOTE | 2017-02-22 01:04 | PN ---
DATE: 02/21/2017 MULTIPLE PROBLEMS INCLUDE: 1. Diabetic ketoacidosis has resolved. 2. Severe dehydration, resolved. 3. Nausea and vomiting, resolved. 4. Positive drug screen for methamphetamine. 5. Admitted long-term methamphetamine abuse since age 17. 6. Adjustment disorder. 7. Chronic hypomagnesemia which is normal at this visit. 8. Moderate protein malnutrition. The patient is a 26-year-old with the above problems. The patient is doing better. She still wants to go to rehab and we are doing our best to make that happened. She has been a little hypotensive today which is not unusual for her. She is eating well, drinking well. OBJECTIVE: VITAL SIGNS: Blood pressure 107/71, pulse 101, respirations 14, pulse ox 98% on room air. GENERAL: Color much better, much more alert. HEENT: Tongue is much more moist. NECK: Supple little bit tender at the internal jugular vein site. LUNGS: Clear. CARDIOVASCULAR: Regular rhythm and rate. ABDOMEN: Soft, nontender. EXTREMITIES: Without edema. PLAN: Await to get her into rehab today. Her blood sugars are good and she is willing to go. BARRY MORELAND DO DR: DONNA/regina JOB#: [id number] / [id number]
[2017-02-22] MEDS: INSULIN ASPART 300 UNITS/3 ML INSULN.PEN SQ SCH ×2 (02:03→08:43)
[2017-02-22] MEDS: INSULIN DETEMIR 300 UNITS/3 ML INSULN.PEN. SQ SCH ×2 (02:04→08:42)
[2017-02-22 04:04] VITALS: BP 119/82
[2017-02-22 06:41] LABS: BASO % 1 % (0-3); EOS # 0.1 x10^3/uL (0.0-0.7); EOS % 2 % (0-3); HEMATOCRIT 29.7 % (36.0-47.0); HEMOGLOBIN 9.9 g/dL (12.0-15.5); LYMPH # 2.2 x10^3/uL (1.0-4.8); LYMPH % 45 % (24-48); MEAN CORPUSCULAR HEMOGLOBIN 30 pg (25-35); MEAN CORPUSCULAR HGB CONC 33 g/dL (31-37); MEAN CORPUSCULAR VOLUME 89 fL (79-100); MONO # 0.5 x10^3/uL (0.0-1.1); MONO % 11 % (0-9); NEUT % 41 % (31-73); PLATELET COUNT 269 x10^3/uL (140-400); RED BLOOD COUNT 3.33 x10^6/uL (3.50-5.40); RED CELL DISTRIBUTION WIDTH 14.6 % (11.5-14.5); WHITE BLOOD COUNT 4.9 x10^3/uL (4.0-11.0)
[2017-02-22 06:44] LABS: ALBUMIN 2.2 g/dL (3.4-5.0); ALBUMIN/GLOBULIN RATIO 0.8 (1.0-1.7); CALCIUM 7.5 mg/dL (8.5-10.1); CREATININE 0.6 mg/dL (0.6-1.0); GFR 121.8; MAGNESIUM 1.6 mg/dL (1.8-2.4); POTASSIUM 3.1 mmol/L (3.5-5.1); TOTAL BILIRUBIN 0.2 mg/dL (0.2-1.0); TOTAL PROTEIN 4.9 g/dL (6.4-8.2)
[2017-02-22] MEDS: METOCLOPRAMIDE 5 MG TABLET PO SCH ×2 (07:48→11:25)
[2017-02-22] MEDS: PANTOPRAZOLE 40 MG TABLET. PO SCH (07:48)
[2017-02-22 07:58] VITALS: BP 116/89
[2017-02-22] MEDS: MUPIROCIN 2% TOPICAL OINTMENT 22GM TUBE. TP SCH (08:41)
[2017-02-22] MEDS: ESCITALOPRAM 5 MG TABLET PO SCH (08:41)
[2017-02-22] MEDS: MAGNESIUM OXIDE 400 MG TABLET PO SCH (08:41)
[2017-02-22] MEDS ORDERED: POTASSIUM CHLORIDE 20 MEQ TABLET.ER. PO SCH (09:00)
--- NOTE | 2017-02-22 15:43 | DS ---
DATE OF DISCHARGE: 02/22/2017 REASON FOR DISCHARGE: DISCHARGE DIAGNOSES: 1. Diabetic ketoacidosis. 2. Dehydration. 3. Hypomagnesemia, normal during this hospitalization. 4. Nausea and vomiting, resolved. 5. Chronic methamphetamine use. 6. Moderate protein malnutrition. 7. Hypokalemia, replaced. 8. Hypomagnesemia, replaced. HOSPITAL COURSE: This is one of multiple admissions for this 26-year-old with type 1 diabetes. During this admission, she finally admitted that she has been continuously using methamphetamine and when she does, she forgets to take her insulin. She was interested in rehab and repeated attempts to place her somewhere were unsuccessful. Calls were put into her mother and not returned. The day that she was discharged 3 of her friends came and she demanded to be discharged, even though we are still waiting to see if any placement was possible. OBJECTIVE: VITAL SIGNS: Blood pressure was 116/89, pulse 101, respirations 14, pulse ox 99% on room air. She is well hydrated now. GENERAL: Her color is better. TONGUE: Moist. NECK: Supple. LUNGS: Clear. CARDIOVASCULAR: Regular rhythm and rate. LABORATORY DATA: Hemoglobin 9.9/29.7, which is her baseline, potassium was 3.1 . DISPOSITION: Against medical advice. She was counseled extensively about her methamphetamine abuse. BARRY MORELAND DO DR: DONNA/regina JOB#: [id number] / [id number]
[2017-02-23 12:02] LABS: CARBON DIOXIDE < 5 mmol/L (21-32)
== END 2017-02-22 12:25 | disposition home or self-care (01) | DRG 638 ==
LOC: ER 05:35 → ICU 06:26
PROVIDERS: ADMIT Internal Medicine; ATTEND Internal Medicine
DX: E10.10 Type 1 diabetes mellitus with ketoacidosis without coma (principal); E44.0 Moderate protein-calorie malnutrition; E10.43 Type 1 diabetes mellitus with diabetic autonomic (poly)neuropathy; E83.42 Hypomagnesemia; E86.0 Dehydration; E87.6 Hypokalemia; F15.90 Other stimulant use, unspecified, uncomplicated; F17.200 Nicotine dependence, unspecified, uncomplicated; F43.20 Adjustment disorder, unspecified; K31.84 Gastroparesis; Z79.4 Long term (current) use of insulin; Z83.3 Family history of diabetes mellitus; Z88.8 Allergy status to other drugs, medicaments and biological substances; Z68.22 Body mass index [BMI] 22.0-22.9, adult
CPT/HCPCS: 36415; 80048; 80053; 80076; 81001; 82010; 82553; 82805; 82947; 83036; 83690; 83735; 83930; 84100; 84484; 84702; 85007; 85027; 85610; 85730; 87040; G0481; J1815; J1885; J2405; J2550; J8597; 99285-25; J7030

== ENCOUNTER 2017-02-26 11:30 | Inpatient (IN) | payer BC ==
[~2017-02-26] VITALS: Ht 170.2 cm; Wt 65.5 kg
[2017-02-26] VITALS (8 sets, daily range): BP systolic 121–150; BP diastolic 72–93
[2017-02-26 12:10] LABS: HEMOGLOBIN ISTAT 13.3 gm/dL; POTASSIUM ISTAT 4.5 mmol/L (3.5-5.0)
[2017-02-26 12:12] LABS: BASO # 0.1 x10^3/uL (0.0-0.2); BASO % 1 % (0-3); EOS % 0 % (0-3); HEMATOCRIT 38.9 % (36.0-47.0); HEMOGLOBIN 12.4 g/dL (12.0-15.5); LYMPH # 1.2 x10^3/uL (1.0-4.8); LYMPH % 12 % (24-48); MEAN CORPUSCULAR HEMOGLOBIN 30 pg (25-35); MEAN CORPUSCULAR HGB CONC 32 g/dL (31-37); MEAN CORPUSCULAR VOLUME 93 fL (79-100); MONO # 0.6 x10^3/uL (0.0-1.1); MONO % 6 % (0-9); NEUT # 8.4 x10^3uL (1.8-7.7); NEUT % 81 % (31-73); PLATELET COUNT 375 x10^3/uL (140-400); RED BLOOD COUNT 4.18 x10^6/uL (3.50-5.40); RED CELL DISTRIBUTION WIDTH 15.2 % (11.5-14.5); WHITE BLOOD COUNT 10.3 x10^3/uL (4.0-11.0)
--- NOTE | 2017-02-26 12:13 | EKG ---
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
[2017-02-26] MEDS ORDERED: IV NORMAL SALINE 1,000ML 1,000 ML IV ONE ×6 (12:15→15:00)
[2017-02-26] MEDS ORDERED: METOCLOPRAMIDE HCL 10 MG/2 ML VIAL. IV ONE (12:15)
--- NOTE | 2017-02-26 12:34 | ED.ADGEN ---
Past History Past Medical History: Diabetes Additional Past Medical Histor: pt reports several admissions for "high blood sugar" Past Surgical History: No Surgical History, Other Smoking: Less than 1pk/day Alcohol Use: None Drug Use: None Adult General HPI HPI Patient is a 26-year-old female presents emergency department complaining of nausea and vomiting as well as generalized myalgia. Patient reports that her blood sugars have been out of control. She has frequent episodes of DKA. She was seen at an outside facility earlier this morning and discharged home but continues to have no improvement. Review of Systems Review of Systems Constitutional: Denies fever or chills [] Eyes: Denies change in visual acuity, redness, or eye pain [] HENT: Denies nasal congestion or sore throat [] Respiratory: Denies cough or shortness of breath [] Cardiovascular: No additional information not addressed in HPI [] GI: Denies abdominal pain, nausea, vomiting, bloody stools or diarrhea [] : Denies dysuria or hematuria [] Musculoskeletal: Denies back pain or joint pain [] Integument: Denies rash or skin lesions [] Neurologic: Denies headache, focal weakness or sensory changes [] Endocrine: Denies polyuria or polydipsia [] Current Medications Current Medications Current Medications Medications (Trade) Dose Ordered Sig/Chevy Start Time Stop Time Status Last Admin Dose Admin Insulin Human Regular (Novolin R) 10 unit 1X ONCE 02/26/17 13:15 02/26/17 13:16 DC 02/26/17 13:15 10 UNIT Metoclopramide HCl (Reglan) 10 mg 1X ONCE 02/26/17 12:15 02/26/17 12:16 DC 02/26/17 12:09 10 MG Ondansetron HCl 8 mg 8 mg 1X ONCE 02/26/17 13:45 02/26/17 13:46 DC 02/26/17 13:54 8 MG Sodium Chloride (Iv Sodium Chloride 0.9% 1,000ml) 1,000 ml @ 1,000 mls/hr 1X ONCE 02/26/17 14:15 02/26/17 15:14 Allergies Allergies Allergies Coded Allergies Type Severity Reaction Last Updated Verified acetaminophen Allergy Intermediate HIVES 11/27/16 Yes adhesive tape Allergy Intermediate 11/27/16 Yes I S O L A T I O N *CONTACT* Allergy Unknown 11/27/16 Yes Physical Exam Physical Exam Constitutional: Well developed, well nourished, moderate acute distress, non- toxic appearance. [] HENT: Normocephalic, atraumatic, bilateral external ears normal, oropharynx moist, no oral exudates, nose normal. [] Eyes: PERRLA, EOMI, conjunctiva normal, no discharge. [] Neck: Normal range of motion, no tenderness, supple, no stridor. [] Cardiovascular: Tachycardic [] Lungs & Thorax: Bilateral breath sounds clear to auscultation [] Abdomen: Bowel sounds normal, soft, no tenderness, no masses, no pulsatile masses. [] Skin: Warm, diaphoretic, no erythema, no rash. [] Extremities: No tenderness, no cyanosis, no clubbing, ROM intact, no edema. [] Neurologic: Alert and oriented X 3, normal motor function, normal sensory function, no focal deficits noted. [] Psychologic: Affect normal, poor judgment, mood normal. [] Current Patient Data Vital Signs Vital Signs Date Time Temp Pulse Resp B/P Pulse Ox O2 Delivery O2 Flow Rate FiO2 02/26/17 11:39 97.8 121 20 99 Room Air Lab Results Laboratory Tests Test 02/26/17 12:02 02/26/17 12:07 02/26/17 13:20 02/26/17 13:33 White Blood Count 10.3x10^3/uL (4.0-11.0) # Red Blood Count 4.18x10^6/uL (3.50-5.40) Hemoglobin 12.4g/dL (12.0-15.5) Hematocrit 38.9% (36.0-47.0) Mean Corpuscular Volume 93fL (79-100) Mean Corpuscular Hemoglobin 30pg (25-35) Mean Corpuscular Hemoglobin Concent 32g/dL (31-37) Red Cell Distribution Width 15.2% (11.5-14.5) H Platelet Count 375x10^3/uL (140-400) Neutrophils (%) (Auto) 81% (31-73) H Lymphocytes (%) (Auto) 12% (24-48) L Monocytes (%) (Auto) 6% (0-9) Eosinophils (%) (Auto) 0% (0-3) Basophils (%) (Auto) 1% (0-3) Neutrophils # (Auto) 8.4x10^3uL (1.8-7.7) H Lymphocytes # (Auto) 1.2x10^3/uL (1.0-4.8) Monocytes # (Auto) 0.6x10^3/uL (0.0-1.1) Eosinophils # (Auto) 0.0x10^3/uL (0.0-0.7) Basophils # (Auto) 0.1x10^3/uL (0.0-0.2) Lactic Acid Level 1.4mmol/L (0.4-2.0) Phosphorus Level 4.3mg/dL (2.6-4.7) Magnesium Level 2.0mg/dL (1.8-2.4) Aspartate Amino Transferase (AST) 24U/L (15-37) Alanine Aminotransferase (ALT) 32U/L (14-59) Alkaline Phosphatase 104U/L (46-116) Lipase 39U/L (73-393) L POC Hemoglobin 13.3gm/dL POC Hematocrit 39% POC Sodium 134mmol/L (135-145) L POC Potassium 4.5mmol/L (3.5-5.0) POC Chloride 103mmol/L (98-110) POC Total CO2 13mmol/L (23-32) L Anion Gap 23mmol/L (6-14) H POC Blood Urea Nitrogen 18mg/dL (8-26) POC Creatinine 0.3mg/dL (0.5-1.4) L Glucose Level 409mg/dL (60-99) H POC Ionized Calcium (Angelique) 1.14mmol/L (1.13-1.32) Glucose (Fingerstick) 332mg/dL (70-99) H Urine Collection Type Unknown Urine Color Straw Urine Clarity Clear Urine pH 5.5 Urine Specific Line [place] 1.020 Urine Protein Neg (NEG-TRACE) Urine Glucose (UA) 500mg/dL (NEG) Urine Ketones (Stick) >=160mg/dL (NEG) Urine Blood Neg (NEG) Urine Nitrite Neg (NEG) Urine Bilirubin Neg (NEG) Urine Urobilinogen Dipstick 0.2mg/dL (0.2 mg/dL) Urine Leukocyte Esterase Neg (NEG) Urine RBC 0/HPF (0-2) Urine WBC 0/HPF (0-4) Urine Squamous Epithelial Cells Occ/LPF Urine Bacteria 0/HPF (0-FEW) Urine Mucus Slight/LPF Urine Opiates Screen Neg (NEG) Urine Methadone Screen Neg (NEG) Urine Barbiturates Neg (NEG) Urine Phencyclidine Screen Neg (NEG) Urine Amphetamine/Methamphetamine Pos (NEG) Urine Benzodiazepines Screen Neg (NEG) Urine Cocaine Screen Neg (NEG) Urine Cannabinoids Screen Neg (NEG) Urine Ethyl Alcohol Neg (NEG) Test 02/26/17 14:06 Glucose (Fingerstick) 276mg/dL (70-99) H EKG EKG EKG interpreted by me, sinus tachycardia, 107 bpm, no ST segment elevation, normal axis. [] Radiology/Procedures Radiology/Procedures Chest x-ray interpreted by me, no acute cardiopulmonary process. [] Course & Med Decision Making Course & Med Decision Making Pertinent Labs and Imaging studies reviewed. (See chart for details) DKA again. 4+ Liters of IVF in ED. Insulin gtt started. Admitted to ICU [] Final Impression Final Impression Diabetic ketoacidosis [] Problems: Dragon Disclaimer Dragon Disclaimer This electronic medical record was generated, in whole or in part, using a voice recognition dictation system. Critical Care Time Critical care time was 60 minutes exclusive of procedures. LINDY MCCALLUM MD Feb 26, 2017 12:34
--- NOTE | 2017-02-26 12:51 | RAD ---
Portable AP view CXR: Clinical indications: Chest pain with vomiting for one day. Comparison: February 15, 2017 Findings: No acute lung infiltrate or pleural effusion or pulmonary edema or lung mass or pneumothorax is seen. The heart size, pulmonary vasculature, mediastinum and both lyndsay are unremarkable. Impression: No acute radiographic abnormality is seen.
[2017-02-26] MEDS ORDERED: INSULIN REGULAR 100 UNIT/ML 10ML VIAL. IV ONE (13:15)
[2017-02-26] MEDS ORDERED: ONDANSETRON PF 4 MG/2 ML VIAL. IV ONE (13:45)
[2017-02-26 13:54] LABS: BACTERIA,URINE 0 /HPF (0-FEW); BILIRUBIN,URINE NEG (NEG); CLARITY,URINE CLEAR; COLOR,URINE STRAW; GLUCOSE,URINE 500 mg/dL (NEG); NITRITE,URINE NEG (NEG); RBC,URINE 0 /HPF (0-2); UROBILINOGEN,URINE 0.2 mg/dL (0.2 mg/dL); WBC,URINE 0 /HPF (0-4)
[2017-02-26 13:55] LABS: AMPHETAMINE/METHAMPHETAMINE POS (NEG); BARBITURATES NEG (NEG); BENZODIAZEPINES NEG (NEG); CANNABINOIDS NEG (NEG); COCAINE NEG (NEG); METHADONE NEG (NEG); OPIATES NEG (NEG); PHENCYCLIDINE NEG (NEG); SQUAMOUS EPITHELIAL CELL,UR OCC /LPF
[2017-02-26] MEDS ORDERED: INSULIN REGULAR 150 UNIT in 0.9 % SODIUM CHLORIDE 150ML 150 ML IV PRN (14:15)
--- NOTE | 2017-02-26 15:02 | ACF ---
Admission Criteria Forms DIABETES Clinical Indications for Admission to Inpatient Care (Place 'X' for any and all applicable criteria): Admission is indicated by presence of ALL (if I & II) or ANY ONE (if III or IV) of the following (1)(2)(3)(4): [ ]I. Diabetes is uncontrolled as indicated by ANY ONE of the following: [ ]a) Diabetic ketoacidosis as indicated by ALL of the following (8): [ ]i) Hyperglycemia (eg, plasma glucose greater than 200 mg/ dL (11.1 mmol/L)) [ ]ii) Acidosis (eg, arterial pH less than 7.30, serum bicarbonate level less than 15 mEq/L (mmol/L)) [ ]iii) Moderate ketonuria or ketonemia [ ]b) Hyperglycemic hyperosmolar state as indicated by ALL of the following(9)(10): [ ]i) Neurologic dysfunction (eg, stupor, coma, hemiparesis , seizure)(13) [ ]ii) Plasma glucose greater than 600 mg/dL (33.3 mmol/L) [ ]iii) Serum osmolality greater than 320 mOsm/kg (mmol/kg) [ ]c) Severe signs or symptoms secondary to hyperglycemia indicated by ANY ONE of the following: [ ]i) Altered mental status(10) [ ]ii) Significant hypovolemia or dehydration [ ]iii) Intractable nausea or vomiting [ ]iv) Unexplained fever or severe infection [ ]v) Severe electrolyte abnormality (eg, hypokalemia, hyperkalemia, hypernatremia) [ ]II. Management at other levels of care (Also use Diabetes: Observation Care as appropriate) is not feasible because of ANY ONE of the following: [ ]a) Condition was not adequately corrected with treatment at other levels of care. [ ]b) Treatment at other levels of care is not appropriate because of condition severity (eg, hyperosmolar coma). [X]III. Contraindications and/or Inappropriate clinical situations for Observational Care in patients with Diabetes, when ANY ONE of the following is required: [X]a) Patient require specific diagnostic workup or therapeutic intervention 22 [ ]b) Patient with abnormal vital signs or altered mental status 23 [ ]IV. General contraindications and/or Inappropriate clinical situations for Observational Care in patients with Diabetes, when ANY ONE of the following is required: [ ]a) Prediction of prolongation of LOS based on ANY ONE of the following may be considered as a contraindication for observational care 2, 3, 4, 5, 6, 7, 8, 9, 10, 11 [ ]i) Age > 65 yrs. [ ]ii) Patient arriving by ambulance [ ]iii) Patient with high acuity [ ]iv) Patient requiring vital sign monitoring [ ]v) Patient on IV medication [ ]b) Systolic blood pressures 180mmHg 3,12 [ ]c) Patient with altered mental status including delirium and other alteration of consciousness, (3) [ ]d) Patient whose discharge disposition will be to a retirement home or rehabilitation home should not be managed in Emergency Department Observation Unit. CMS rule requires 3 days hospital stay before such placement.3,13 [ ]e) Patient with failure to thrive due to broad array of etiologies 3,16,17 [ ]f) Inability to ambulate 3,14 Extended stay beyond goal length of stay may be needed for(3)(20): [ ]a) Treatment of precipitating causes [ ]b) Development of hypoglycemia [ ]c) Complications of treatment [ ]d) Complications of decompensated diabetes (eg, acute gastric dilatation, persistent metabolic or neurologic derangement) [ ]e) Active Comorbidities [ ]f) Older patients( 65 years or older) The original [employer] content created by [employer] has been revised. The portions of the content which have been revised are identified through the use of italic text or in bold,and [facility] has neither reviewed nor approved the modified material. All other unmodified content is copyright [facility]. Please see references footnoted in the original [facility] edition 2016 Admission Criteria Met?: Yes ARIANNA FERNANDEZ Feb 26, 2017 15:02
[2017-02-26] MEDS ORDERED: POTASSIUM CHLORIDE 20 MEQ in IV DEXTROSE 5 %-0.45 % NACL 1,000 ML IV SCH (15:21)
[2017-02-26] MEDS: ONDANSETRON PF 4 MG/2 ML VIAL. IV PRN (15:26)
[2017-02-26] MEDS ORDERED: PROMETHAZINE 12.5 MG in IV NORMAL SALINE 50ML 50 ML IV PRN (15:30)
[2017-02-26] MEDS: KETOROLAC 15 MG/ML VIAL. IV PRN (15:56)
[2017-02-26] MEDS: POTASSIUM CL 20MEQ D5-0.45NACL 1,000 ML IV SCH ×2 (15:57→20:14)
[2017-02-27] VITALS (21 sets, daily range): BP systolic 115–141; BP diastolic 72–97
[2017-02-27] MEDS: POTASSIUM CL 20MEQ D5-0.45NACL 1,000 ML IV SCH (02:41)
[2017-02-27 06:16] LABS: BASO # 0.1 x10^3/uL (0.0-0.2); BASO % 1 % (0-3); EOS # 0.2 x10^3/uL (0.0-0.7); EOS % 2 % (0-3); HEMATOCRIT 32.4 % (36.0-47.0); HEMOGLOBIN 10.7 g/dL (12.0-15.5); LYMPH % 22 % (24-48); MEAN CORPUSCULAR HEMOGLOBIN 30 pg (25-35); MEAN CORPUSCULAR HGB CONC 33 g/dL (31-37); MEAN CORPUSCULAR VOLUME 91 fL (79-100); MONO # 0.9 x10^3/uL (0.0-1.1); MONO % 10 % (0-9); NEUT % 65 % (31-73); PLATELET COUNT 321 x10^3/uL (140-400); RED BLOOD COUNT 3.56 x10^6/uL (3.50-5.40); RED CELL DISTRIBUTION WIDTH 14.7 % (11.5-14.5); WHITE BLOOD COUNT 9.2 x10^3/uL (4.0-11.0)
[2017-02-27 06:31] LABS: ALBUMIN 2.7 g/dL (3.4-5.0); CALCIUM 7.7 mg/dL (8.5-10.1); CREATININE 0.6 mg/dL (0.6-1.0); GFR 121.8; MAGNESIUM 1.4 mg/dL (1.8-2.4); POTASSIUM 3.5 mmol/L (3.5-5.1); TOTAL BILIRUBIN 0.5 mg/dL (0.2-1.0); TOTAL PROTEIN 5.5 g/dL (6.4-8.2)
[2017-02-27] MEDS ORDERED: MAGNESIUM SULFATE 2GM 50 ML IV ONE (06:45)
[2017-02-27] MEDS ORDERED: IV NORMAL SALINE 250ML 250 ML ONE (07:24)
[2017-02-27] MEDS ORDERED: POTASSIUM CHLORIDE 20 MEQ TABLET.ER. PO ONE (07:30)
[2017-02-27] MEDS ORDERED: IV NORMAL SALINE 1,000ML 1,000 ML IV SCH (08:15)
[2017-02-27] MEDS ORDERED: POTASSIUM CL 40MEQ D5-0.45NACL 1,000 ML IV ONE (10:46)
[2017-02-27] MEDS: POTASSIUM CL 40MEQ D5-0.45NACL 1,000 ML IV SCH ×2 (11:03→16:43)
--- NOTE | 2017-02-27 13:52 | HP ---
ADMIT DATE: 02/26/2017 HISTORY OF PRESENT ILLNESS: This is a 26-year-old female patient, who yet again came to the Emergency Department with recurrent bouts of nausea, vomiting as well as generalized myalgia. She again reported that blood sugars have been out of control. She has been admitted on numerous occasions with DKA. She was seen at [facility] where she was treated and discharged home, but continues to have no improvement and came to the Emergency Room of this facility and was admitted with hyperglycemia and mild diabetic ketoacidosis with a bicarbonate of 13 and anion gap of 23. Her blood sugar on admission was 409. Again, we started her on normal saline as well as insulin drip. Her lab work showed, she has no leukocytosis. She is afebrile. However, toxic screen was positive for amphetamine, methamphetamine. Apparently, she has been leaving against medical advice on multiple occasions now going with a friend who abuse the amphetamine. PAST MEDICAL HISTORY: Significant for brittle type 1 diabetes, diabetic peripheral neuropathy, and diabetic gastroparesis. She has also infected Port-A-Cath and also left axillary abscess. PAST SURGICAL HISTORY: Significant for placement and removal of a Port-A-Cath and also incision and drainage of a left axillary abscess. ALLERGIES: She is allergic to ACETAMINOPHEN and ADHESIVE TAPES. MEDICATIONS: She is supposed to be on Lexapro 5 mg once a day, NovoLog FlexPen as insulin sliding scale. She is on NovoLog 14 units before meals, Lantus insulin 14 units twice a day, magnesium oxide 400 mg 3 times a day, metoclopramide 10 mg before meals and bedtime, Protonix 40 mg once a day, promethazine for Phenergan 25 mg q.6 hourly and tramadol 50 mg every 6 hours and it seems that she is unlikely that she is taking any of her insulin at all or any other medications. FAMILY HISTORY: Unremarkable. SOCIAL HISTORY: She is unemployed, lives with her family and uses crystal methamphetamine. REVIEW OF SYSTEMS: As per history of present illness. PHYSICAL EXAMINATION GENERAL: When I examined her, she looked well and was clearly in no apparent respiratory distress, pale, but no jaundice, cyanosis or thyromegaly. No jugular venous distention. No limb edema. VITAL SIGNS: Her heart rate on admission was 110, blood pressure was 125/72, temperature was 98.9, respiratory rate was 15 and oxygen saturation was 98%. HEAD, EYES, EARS, NOSE, AND THROAT: Showed normocephalic, atraumatic. NECK: Supple. HEART: Showed normal first and second heart sounds with no gallop, rub or murmur. CHEST: Clear to auscultation. No crepitation or rhonchi. ABDOMEN: Distended, soft, and nontender. NEUROLOGIC: She is awake, alert, responding appropriately. All her cranial nerves are intact. EXTREMITIES: She moves extremities without difficulty. She ambulates without assistance or assistive devices. LABORATORY DATA: On admission showed that her white cell count was 10,300; hemoglobin 12.4, hematocrit 38.9, MCV 93, and platelet count of 375,000 with normal manual differential. Her chemistry on admission showed that her serum sodium was 134, potassium 4.5, chloride 103, bicarbonate 13, anion gap of 23, BUN of 18, creatinine 0.3. Her blood sugar was 409 mg/dL. Her ionized calcium was 1.14, phosphorus was 4 and lactic acid was 1.4. Her AST, ALT, and alkaline phosphatase were normal. Urinalysis and her toxic screen was positive for amphetamine. ASSESSMENT AND PLAN: In summary, this is a 26-year-old female patient with known type 1 brittle diabetes mellitus for which she has come in again with mild diabetic ketoacidosis, marked hyperglycemia, has also hypomagnesemia. We will continue with IV fluid and insulin drip as per diabetic ketoacidosis treatment protocol. ANAYELI FOSS MD DR: JOSÉ/regina JOB#: [id number] / [id number]
[2017-02-27] MEDS ORDERED: DEXTROSE 50% 25 GM / 50ML DISP.SYRIN. IV PRN (17:00)
[2017-02-27] MEDS: IV NORMAL SALINE 1,000ML 1,000 ML IV SCH (18:01)
[2017-02-27] MEDS: INSULIN ASPART 300 UNITS/3 ML INSULN.PEN SQ PRN (19:46)
[2017-02-27] MEDS: ONDANSETRON PF 4 MG/2 ML VIAL. IV PRN (20:43)
--- NOTE | 2017-02-27 22:05 | PN ---
DATE: 02/27/2017 SUBJECTIVE: The patient resting slightly propped up in bed, sleeping comfortably. She apparently managed to eat her breakfast this morning, continued to complain of aches and pains. She continued to be on IV fluid as well as insulin drip. OBJECTIVE: GENERAL: When I saw her this morning, she looked well and was clearly in no apparent respiratory distress, pale, no jaundice, cyanosis, or thyromegaly. No jugular venous distention. No limb edema. VITAL SIGNS: Her heart rate was 101, blood pressure was 125/83, temperature was 98, respiratory rate was 18 and oxygen saturation was 97% on room air. The rest of clinical examination is unremarkable, has not really changed. Her intake was 6500, output was 1000. LABORATORY DATA: As of this morning showed a white cell count of 9200, hemoglobin 10.7, hematocrit 32.4, MCV 91, and platelet count 324,000. Her chemistry this morning showed that her serum sodium was 139, potassium 3.5, chloride 108, bicarbonate 18, anion gap of 13, BUN 5, creatinine 0.6, estimated GFR was 121 mL per minute. Her glucose was 119. Calcium was 7.7. Magnesium was 1.4. Total bilirubin, AST, ALT, alkaline phosphatase were normal. Total protein was 5.5. Albumin was 2.7. ASSESSMENT: Mild diabetic ketoacidosis, improving. Her bicarbonate is improving. Sodium has normalized, now it is 139. Her anion gap also is improving from 23-13. PLAN: To continue with IV fluid and insulin drip and monitor her electrolytes and replenish potassium and magnesium as needed. ANAYELI FOSS MD DR: JOSÉ/regina JOB#: [id number] / [id number]
[2017-02-28] VITALS (16 sets, daily range): BP systolic 109–124; BP diastolic 71–86
[2017-02-28] MEDS: INSULIN ASPART 300 UNITS/3 ML INSULN.PEN SQ PRN ×7 (01:20→18:27)
[2017-02-28] MEDS: IV NORMAL SALINE 1,000ML 1,000 ML IV SCH (03:16)
[2017-02-28 06:02] LABS: BASO % 1 % (0-3); EOS # 0.1 x10^3/uL (0.0-0.7); EOS % 2 % (0-3); HEMATOCRIT 32.2 % (36.0-47.0); HEMOGLOBIN 10.6 g/dL (12.0-15.5); LYMPH # 1.6 x10^3/uL (1.0-4.8); LYMPH % 38 % (24-48); MEAN CORPUSCULAR HEMOGLOBIN 30 pg (25-35); MEAN CORPUSCULAR HGB CONC 33 g/dL (31-37); MEAN CORPUSCULAR VOLUME 90 fL (79-100); MONO # 0.5 x10^3/uL (0.0-1.1); MONO % 12 % (0-9); NEUT % 47 % (31-73); PLATELET COUNT 267 x10^3/uL (140-400); RED BLOOD COUNT 3.57 x10^6/uL (3.50-5.40); RED CELL DISTRIBUTION WIDTH 14.5 % (11.5-14.5); WHITE BLOOD COUNT 4.2 x10^3/uL (4.0-11.0)
[2017-02-28 06:15] LABS: ALBUMIN 2.6 g/dL (3.4-5.0); ALBUMIN/GLOBULIN RATIO 0.9 (1.0-1.7); CALCIUM 8.1 mg/dL (8.5-10.1); CREATININE 0.7 mg/dL (0.6-1.0); POTASSIUM 3.9 mmol/L (3.5-5.1); TOTAL BILIRUBIN 0.3 mg/dL (0.2-1.0); TOTAL PROTEIN 5.5 g/dL (6.4-8.2)
[2017-02-28] MEDS ORDERED: MAGNESIUM SULFATE 2GM 50 ML IV ONE (07:30)
[2017-02-28] MEDS: KETOROLAC 15 MG/ML VIAL. IV PRN (07:58)
[2017-02-28] MEDS: ONDANSETRON PF 4 MG/2 ML VIAL. IV PRN (07:59)
--- NOTE | 2017-02-28 14:29 | PN ---
DATE: 02/28/2017 SUBJECTIVE: The patient is resting, slightly propped up in bed, in no apparent distress. She is off the ____ blood sugar, in fact she is back on her insulin regimen and her blood sugar was 175 mg before lunch. She is still complaining of being nauseous and generally weak. PHYSICAL EXAMINATION: GENERAL: When I examined her, she looked pale, no jaundice, cyanosis, or thyromegaly. No jugular venous distension. No limb edema. VITAL SIGNS: Her heart rate was 92, blood pressure was 116/79, temperature was 98.5, respiratory rate was 13 and oxygen saturation was 97%. The rest of clinical examination is stable. Her intake over the last 24 hours was 7100, output was 1200. LABORATORY DATA: As of this morning, her serum sodium was 143, potassium 3.9, chloride 108, bicarbonate 26, anion gap of 9, BUN 5, creatinine 0.7, estimated GFR was 102 mL per minute. Her blood sugar was 175, calcium was 8.1, magnesium was 1.6. Total bilirubin, AST, ALT and alkaline phosphatase were normal. Total protein was 5.5, albumin 2.6. White cell count was 4200, hemoglobin 10, hematocrit 32, MCV 90 and platelet count 267,000. ASSESSMENT: 1. Mild diabetic ketoacidosis, resolved. 2. Methamphetamine abuse disorder. PLAN: To continue with monitoring her blood sugar and use insulin sliding scale and continue with IV fluid, replenish her electrolytes. ANAYELI FOSS MD DR: JOSÉ/regina JOB#: [id number] / [id number]
[2017-02-28] MEDS: METOCLOPRAMIDE 10 MG TABLET PO PRN (16:14)
[2017-03-01] MEDS: INSULIN ASPART 300 UNITS/3 ML INSULN.PEN SQ PRN ×5 (00:18→13:33)
[2017-03-01 05:15] VITALS: BP 127/89
[2017-03-01 06:52] LABS: CALCIUM 7.6 mg/dL (8.5-10.1); CREATININE 0.5 mg/dL (0.6-1.0); GFR 150.3; MAGNESIUM 1.6 mg/dL (1.8-2.4); POTASSIUM 3.2 mmol/L (3.5-5.1)
[2017-03-01 07:39] VITALS: BP 135/94
[2017-03-01] MEDS: METOCLOPRAMIDE 10 MG TABLET PO PRN (07:47)
[2017-03-01] MEDS: KETOROLAC 15 MG/ML VIAL. IV PRN (07:48)
[2017-03-01 11:19] VITALS: BP 137/90
[2017-03-01] MEDS ORDERED: POTASSIUM CHLORIDE 20 MEQ TABLET.ER. PO ONE (13:15)
--- NOTE | 2017-03-01 18:26 | DS ---
DATE OF DISCHARGE: 03/01/2017 HOSPITAL COURSE: The patient is a 26-year-old female patient who yet again came with another episode of diabetic ketoacidosis, although it was relatively mild compared to previous admission, she also was positive for amphetamine and she admits that she abused amphetamine. She was started on IV fluid and insulin drip and she did actually very well. Her lab work has mostly normalized. Her BUN has improved and creatinine is down also from 0.7 to 0.5. Her sodium also has improved and normalized. She remained hemodynamically stable, afebrile, no evidence of any infection. Her toxic screen was positive for methamphetamine that she admits to and she stabilized. She has no further episode of nausea, vomiting or abdominal pain. She is tolerating her diet. She is back on her insulin regimen. A decision was made to discharge her home, go back to live with her mom who is planning to take her to a rehab center. PHYSICAL EXAMINATION: GENERAL: When I examined her this afternoon, she looked well and was clearly in no apparent respiratory distress. She was pale, but no jaundice, cyanosis, or thyromegaly. No jugular venous distention. No limb edema. VITAL SIGNS: Her heart rate was 94, blood pressure 137/90, temperature was 98.5, respiratory rate was 16 and oxygen saturation was 97%. Rest of clinical examination is unremarkable, has not really changed. Her intake over the last 24 hours was 2500, no output was recorded. LABORATORY DATA: Her lab work this morning showed that her white cell count was 4200, hemoglobin 10.6, hematocrit 32, MCV 90 and platelet count of 267,000 with normal differential. Her chemistry showed a serum sodium of 138, potassium 3.2, chloride 104, bicarbonate 29, anion gap of 5, BUN 10 and creatinine 0.5. Estimated GFR was 150 mL per minute. Her glucose was 299. Calcium was 7.6 and magnesium was 1.4. DISCHARGE MEDICATIONS: She will be discharged home to continue on following medications: Her escitalopram oxalate 5 mg once a day. She is on NovoLog insulin as insulin sliding scale before meals, NovoLog insulin 14 units 4 times a day and she is on Lantus insulin 14 units twice a day, magnesium oxide 400 mg 3 times a day, metoclopramide 10 mg before meals and bedtime, Protonix 40 mg once a day, Phenergan 25 mg every 6 hours and tramadol 50 mg every 6 hours. FINAL DISCHARGE DIAGNOSES: Brittle type 1 diabetes worse with noncompliance, diabetic ketoacidosis, mild and resolved; hypokalemia, resolved; amphetamine abuse. The patient was counseled to quit using the amphetamine. ANAYELI FOSS MD DR: JOSÉ/regina JOB#: [id number] / [id number]
[2017-03-02] MEDS ORDERED: PROM25SU32 RC (13:40)
[2017-03-02] MEDS ORDERED: ONDA4TAB10 PO (13:40)
== END 2017-03-01 14:07 | disposition home or self-care (01) | DRG 639 ==
LOC: ER 11:30 → ICU 14:53
PROVIDERS: ADMIT Family Medicine; ATTEND Family Medicine
DX: E10.10 Type 1 diabetes mellitus with ketoacidosis without coma (principal); E83.42 Hypomagnesemia; E10.43 Type 1 diabetes mellitus with diabetic autonomic (poly)neuropathy; K31.84 Gastroparesis; F15.10 Other stimulant abuse, uncomplicated; E87.6 Hypokalemia; Z88.1 Allergy status to other antibiotic agents; Z88.8 Allergy status to other drugs, medicaments and biological substances; Z91.19 Patient's noncompliance with other medical treatment and regimen
CPT/HCPCS: 36415; 71010; 80047; 80048; 80053; 81001; 82947; 83605; 83690; 83735; 84075; 84100; 84450; 84460; 85027; 87641; 93005; 96361; 96374; 96375; G0481; J1815; J1885; J2405; J2550; J2765; J3475; J7042; J7050; J8597; 99291-25; J7030

== ENCOUNTER 2017-03-02 11:24 | Emergency (ER) | payer BC ==
[2017-03-02] MEDS ORDERED: IV NORMAL SALINE 1,000ML 1,000 ML IV ONE (11:45)
[2017-03-02 11:57] LABS: HEMOGLOBIN ISTAT 13.6 gm/dL; POTASSIUM ISTAT 5.9 mmol/L (3.5-5.0)
--- NOTE | 2017-03-02 12:02 | EKG ---
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
[2017-03-02] MEDS ORDERED: METOCLOPRAMIDE HCL 10 MG/2 ML VIAL. IV ONE (12:10)
[2017-03-02] MEDS ORDERED: INSULIN ASPART 300 UNITS/3 ML INSULN.PEN SQ ONE (13:00)
[2017-03-02] MEDS ORDERED: PROMETHAZINE IM 25 MG/ML VIAL IM ONE (13:00)
[2017-03-02] MEDS ORDERED: ONDANSETRON ODT 4 MG TAB.RAPDIS PO ONE (13:00)
[2017-03-02 13:11] LABS: AMPHETAMINE/METHAMPHETAMINE NEG (NEG); BARBITURATES NEG (NEG); BENZODIAZEPINES NEG (NEG); CANNABINOIDS NEG (NEG); COCAINE NEG (NEG); METHADONE NEG (NEG); OPIATES NEG (NEG); PHENCYCLIDINE NEG (NEG)
[2017-03-02] MEDS ORDERED: LIDOCAINE 2% PF Vial for OR 5 ML VIAL. IJ ONE (13:13)
--- NOTE | 2017-03-02 13:25 | ACF ---
Admission Criteria Forms DIABETES Clinical Indications for Admission to Inpatient Care (Place 'X' for any and all applicable criteria): Admission is indicated by presence of ALL (if I & II) or ANY ONE (if III or IV) of the following (1)(2)(3)(4): [x]I. Diabetes is uncontrolled as indicated by ANY ONE of the following: [ ]a) Diabetic ketoacidosis as indicated by ALL of the following (8): [ ]i) Hyperglycemia (eg, plasma glucose greater than 200 mg/ dL (11.1 mmol/L)) [ ]ii) Acidosis (eg, arterial pH less than 7.30, serum bicarbonate level less than 15 mEq/L (mmol/L)) [ ]iii) Moderate ketonuria or ketonemia [ ]b) Hyperglycemic hyperosmolar state as indicated by ALL of the following(9)(10): [ ]i) Neurologic dysfunction (eg, stupor, coma, hemiparesis , seizure)(13) [ ]ii) Plasma glucose greater than 600 mg/dL (33.3 mmol/L) [ ]iii) Serum osmolality greater than 320 mOsm/kg (mmol/kg) [x]c) Severe signs or symptoms secondary to hyperglycemia indicated by ANY ONE of the following: [ ]i) Altered mental status(10) [ ]ii) Significant hypovolemia or dehydration [ ]iii) Intractable nausea or vomiting [ ]iv) Unexplained fever or severe infection [x]v) Severe electrolyte abnormality (eg, hypokalemia, hyperkalemia, hypernatremia) [x]II. Management at other levels of care (Also use Diabetes: Observation Care as appropriate) is not feasible because of ANY ONE of the following: [x]a) Condition was not adequately corrected with treatment at other levels of care. [ ]b) Treatment at other levels of care is not appropriate because of condition severity (eg, hyperosmolar coma). [ ]III. Contraindications and/or Inappropriate clinical situations for Observational Care in patients with Diabetes, when ANY ONE of the following is required: [ ]a) Patient require specific diagnostic workup or therapeutic intervention 22 [ ]b) Patient with abnormal vital signs or altered mental status 23 [ ]IV. General contraindications and/or Inappropriate clinical situations for Observational Care in patients with Diabetes, when ANY ONE of the following is required: [ ]a) Prediction of prolongation of LOS based on ANY ONE of the following may be considered as a contraindication for observational care 2, 3, 4, 5, 6, 7, 8, 9, 10, 11 [ ]i) Age > 65 yrs. [ ]ii) Patient arriving by ambulance [ ]iii) Patient with high acuity [ ]iv) Patient requiring vital sign monitoring [ ]v) Patient on IV medication [ ]b) Systolic blood pressures 180mmHg 3,12 [ ]c) Patient with altered mental status including delirium and other alteration of consciousness, (3) [ ]d) Patient whose discharge disposition will be to a [facility] home or rehabilitation home should not be managed in Emergency Department Observation Unit. CMS rule requires 3 days hospital stay before such placement.3,13 [ ]e) Patient with failure to thrive due to broad array of etiologies 3,16,17 [ ]f) Inability to ambulate 3,14 Extended stay beyond goal length of stay may be needed for(3)(20): [ ]a) Treatment of precipitating causes [ ]b) Development of hypoglycemia [ ]c) Complications of treatment [ ]d) Complications of decompensated diabetes (eg, acute gastric dilatation, persistent metabolic or neurologic derangement) [ ]e) Active Comorbidities [ ]f) Older patients( 65 years or older) The original [employer] content created by [employer] has been revised. The portions of the content which have been revised are identified through the use of italic text or in bold,and [facility] has neither reviewed nor approved the modified material. All other unmodified content is copyright [employer]. Please see references footnoted in the original [employer] [facility] edition 2015 Admission Criteria Met?: Yes KLEVER MATAMOROS Mar 02, 2017 13:25
--- NOTE | 2017-03-02 13:32 | ED.ADGEN ---
Past History Past Medical History: Diabetes Additional Past Medical Histor: pt reports several admissions for "high blood sugar" Past Surgical History: No Surgical History Smoking: Less than 1pk/day Alcohol Use: None Drug Use: None Adult General HPI HPI Patient is a 26-year-old female presents emergency department complaining of diffuse abdominal pain, nausea, and vomiting. Patient has a history of frequent DKA. In fact, she was discharged from this hospital yesterday afternoon. She states that her blood sugar was high last night she did take 14 units of insulin. When she woke up this morning her blood sugars were reading as "high" and she proceeded to the emergency department. Review of Systems Review of Systems Constitutional: Denies fever or chills [] Eyes: Denies change in visual acuity, redness, or eye pain [] HENT: Denies nasal congestion or sore throat [] Respiratory: Denies cough or shortness of breath [] Cardiovascular: No additional information not addressed in HPI [] GI: Denies abdominal pain, nausea, vomiting, bloody stools or diarrhea [] : Denies dysuria or hematuria [] Musculoskeletal: Denies back pain or joint pain [] Integument: Denies rash or skin lesions [] Neurologic: Denies headache, focal weakness or sensory changes [] Endocrine: Denies polyuria or polydipsia [] Current Medications Current Medications Current Medications Medications (Trade) Dose Ordered Sig/Chevy Start Time Stop Time Status Last Admin Dose Admin Insulin Aspart (Novolog) 10 units 1X ONCE 03/02/17 13:00 03/02/17 13:01 DC 03/02/17 13:03 10 UNITS Lidocaine HCl (Lidocaine Pf 2% Vial) 10 ml 1X ONCE 03/02/17 13:13 03/02/17 13:14 DC Metoclopramide HCl (Reglan) 10 mg 1X ONCE 03/02/17 12:10 03/02/17 12:11 DC Ondansetron HCl (Zofran Odt) 4 mg 1X ONCE 03/02/17 13:00 03/02/17 13:01 DC 03/02/17 13:01 4 MG Promethazine HCl (Phenergan Im) 25 mg 1X ONCE 03/02/17 13:00 03/02/17 13:01 DC 03/02/17 13:02 25 MG Sodium Chloride (Iv Sodium Chloride 0.9% 1,000ml) 1,000 ml @ 1,000 mls/hr 1X ONCE 03/02/17 11:45 03/02/17 12:44 DC Allergies Allergies Allergies Coded Allergies Type Severity Reaction Last Updated Verified acetaminophen Allergy Intermediate HIVES 11/27/16 Yes adhesive tape Allergy Intermediate 11/27/16 Yes I S O L A T I O N *CONTACT* Allergy Unknown 11/27/16 Yes Physical Exam Physical Exam Constitutional: Well developed, well nourished, no acute distress, non-toxic appearance. [] HENT: Normocephalic, atraumatic, bilateral external ears normal, oropharynx moist, no oral exudates, nose normal. [] Eyes: PERRLA, EOMI, conjunctiva normal, no discharge. [] Neck: Normal range of motion, no tenderness, supple, no stridor. [] Cardiovascular:Heart rate regular rhythm, no murmur [] Lungs & Thorax: Bilateral breath sounds clear to auscultation [] Abdomen: Bowel sounds normal, soft, no tenderness, no masses, no pulsatile masses. [] Skin: Warm, dry, no erythema, no rash. [] Back: No tenderness, no CVA tenderness. [] Extremities: No tenderness, no cyanosis, no clubbing, ROM intact, no edema. [] Neurologic: Alert and oriented X 3, normal motor function, normal sensory function, no focal deficits noted. [] Psychologic: Affect normal, judgement normal, mood normal. [] Current Patient Data Vital Signs Vital Signs Date Time Temp Pulse Resp B/P Pulse Ox O2 Delivery O2 Flow Rate FiO2 03/02/17 13:50 135 18 134/83 95 Room Air 03/02/17 11:36 98.4 Lab Results Laboratory Tests Test 03/02/17 11:54 03/02/17 12:30 03/02/17 12:46 POC Hemoglobin 13.6gm/dL POC Hematocrit 40% POC Sodium 127mmol/L (135-145) L POC Potassium 5.9mmol/L (3.5-5.0) H POC Chloride 94mmol/L (98-110) L POC Total CO2 19mmol/L (23-32) L Anion Gap 21mmol/L (6-14) H POC Blood Urea Nitrogen 22mg/dL (8-26) POC Creatinine 0.3mg/dL (0.5-1.4) L Glucose Level 573mg/dL (60-99) *H POC Ionized Calcium (Angelique) 1.01mmol/L (1.13-1.32) L Urine Opiates Screen Neg (NEG) Urine Methadone Screen Neg (NEG) Urine Barbiturates Neg (NEG) Urine Phencyclidine Screen Neg (NEG) Urine Amphetamine/Methamphetamine Neg (NEG) Urine Benzodiazepines Screen Neg (NEG) Urine Cocaine Screen Neg (NEG) Urine Cannabinoids Screen Neg (NEG) Urine Ethyl Alcohol Neg (NEG) POC Urine HCG, Qualitative hcg negative (Negative) EKG EKG EKG interpreted by me, sinus tachycardia, 128 beats for minute, no ST segment elevation, normal axis. [] Radiology/Procedures Radiology/Procedures [] Course & Med Decision Making Course & Med Decision Making Pertinent Labs and Imaging studies reviewed. (See chart for details) After multiple attempts at an IV we were unsuccessful. At that point, after discussion with the patient decided to try some IM and disintegrating medications to get her nausea under control. Patient's bicarbonate is fortunately greater than 18. She is hyperglycemic. Her nausea and vomiting is been improving during the course of her stay. The patient is surprisingly well after her Phenergan IM and Zofran ODT. She is able to pass a by mouth challenge without any difficulty. She was amenable to being discharged, was sent home with those prescriptions. [] Final Impression Final Impression Hyperglycemia [] Problems: Dragon Disclaimer Dragon Disclaimer This electronic medical record was generated, in whole or in part, using a voice recognition dictation system. LINDY MCCALLUM MD Mar 02, 2017 13:32
[2017-03-02] MEDS ORDERED: ONDA4TAB10 PO (13:40)
[2017-03-02] MEDS ORDERED: PROM25SU32 RC (13:40)
[2017-03-02 13:50] VITALS: BP 134/83
[2017-03-02 14:42] LABS: BACTERIA,URINE 0 /HPF (0-FEW); BILIRUBIN,URINE NEG (NEG); CLARITY,URINE CLEAR; COLOR,URINE STRAW; GLUCOSE,URINE 500 mg/dL (NEG); NITRITE,URINE NEG (NEG); RBC,URINE 0 /HPF (0-2); SQUAMOUS EPITHELIAL CELL,UR FEW /LPF; UROBILINOGEN,URINE 0.2 mg/dL (0.2 mg/dL); WBC,URINE 0 /HPF (0-4)
== END 2017-03-02 13:50 | disposition home or self-care (01) ==
LOC: ER 11:24
DX: E11.65 Type 2 diabetes mellitus with hyperglycemia (principal); R10.84 Generalized abdominal pain; E13.10 Other specified diabetes mellitus with ketoacidosis without coma
CPT/HCPCS: 36415; 80047; 80305; 81001; 84703; 93005; 96372; 99285; J1815; J2550; Q0162; 81025; G0481

== ENCOUNTER 2017-03-02 19:48 | Emergency (ER) | payer BC ==
[~2017-03-02] VITALS: Ht 170.2 cm; Wt 61.4 kg
[~2017-03-02 19:48] MED LIST changes: +ONDA4TAB10 PO
[2017-03-02] MEDS ORDERED: ONDANSETRON ODT 4 MG TAB.RAPDIS ONE ×2 (20:00→20:49)
--- NOTE | 2017-03-02 20:32 | PHYS DOC ---
General Chief Complaint: HYPERGLYCEMIA Stated Complaint: DIABETIC,VOMITING,WEAK Time Seen by MD: 19:58 Source: patient, family Problems: History of Present Illness Initial Comments Patient with mother for abdominal pain and vomiting. Patient has no history of diabetes with multiple admissions for ketoacidosis as well as gastroparesis. She says this is the same as before. She says it started yesterday she's been vomiting nonstop since that time. She was actually seen here earlier in the ER. She says she received medication was able to drink fluids, but there was discharged home. She said that she did not feel better and did not want to go home at that time. She's felt hot and cold but had no distinct fever or chills. There's no runny nose or sore throat. There is no chest pain or shortness of breath. She does have diffuse abdominal pain which she treated sternal gastroparesis. She has nausea vomiting continually today without blood or bilious control. There is a panic emesis in the ED. She's had no change in bowel or bladder habits. Her last period was last March. She is not on control and has not had a hysterectomy. She says she has whole-body pain but denies any acute focal extremity or neurologic complaints. Other than being seen here earlier today she's done nothing at home for this. She did receive prescriptions for antiemetics but consult. There is no other increased or decreasing factors. Patient's past medical history is remarkable for diabetes. She was reportedly just discharged from the hospital yesterday for DKA. There is difficulty with IV access and she usually requires neck vein. She is on subcutaneous insulin on a sliding scale only. She says her sugar recently at home is been reading high on the monitor. She does not have an insulin pump she claims compliance with her insulin regimen. She also has gastroparesis. She is a nonsmoker and nonuser of ethanol. Allergies: Coded Allergies: acetaminophen (Verified Allergy, Intermediate, HIVES, 11/27/16) "WHEN I HAD MY ANKLE BX THEY GAVE ME TYLENOL AND I GOT HIVES ON MY LEG." adhesive tape (Verified Allergy, Intermediate, 11/27/16) I S O L A T I O N *CONTACT* (Verified Allergy, Unknown, 11/27/16) +MRSA screen 11-03-16 Past Medical History Medical History: diabetes, other Surgical History: noncontributory Social History Smoker: non-smoker Alcohol: none Review of Systems All Other Systems: Reviewed and Negative Physical Exam General Appearance: WD/WN, mild distress Ear, Nose, Throat: normal ENT inspection, normal pharynx Neck: full range of motion, supple, normal inspection Respiratory: lungs clear, normal breath sounds, no respiratory distress Cardiovascular: regular rate, rhythm, no edema Gastrointestinal: soft, no organomegaly, tenderness Back: CVA tenderness (R), CVA tenderness (L) Extremities: non-tender, normal inspection, no pedal edema Neurologic/Psychiatric: alert, normal mood/affect, oriented x 3 Skin: normal color Lymphatic: no adenopathy Comments Generally this is a thin white female who looks mildly uncomfortable with abdominal pain and vomiting. Vitals are as noted. Pertinent findings on physical exam shows ears and throat to be grossly clear. Extremities membranes are somewhat dry. The neck is supple without adenopathy or JVD. Chest is clear and cardiac vascular exams unremarkable. The abdomen is soft. She is diffusely tender throughout with minimal percussion and palpation, with exaggerated responses noted. There is no masses, organomegaly, focal findings, or peritoneal findings. Back shows some mild bilateral CVA tenderness, again with exaggerated response even minimal palpation. External he show no rashes, cyanosis, or edema. Neurologic exam shows the patient have somewhat of a labile affect and somewhat angry as well, but she is otherwise alert awake and cooperative, and moves all extremity as well as spontaneously with good tone. Remainder of physical exam is clincially unremarkable. Orders, Labs, Meds Old charts note the patient's actually well-known to this emergency department. She was actually seen here earlier today for elevated glucose and vomiting. Her sugar was 573. No IV was able to be established. She apparently received IM Phenergan and Zofran, was able tolerate by mouth fluids and was subsequently discharged home. She's had 10 admissions the hospital this year alone, the vast majority for DKA but also for abdominal pain, nausea vomiting, chest pain. AVERY AYERS MD Mar 02, 2017 20:32
[2017-03-02] MEDS ORDERED: INSULIN REGULAR 100 UNIT/ML 10ML VIAL. IV ONE (21:00)
[2017-03-02] MEDS ORDERED: IV NORMAL SALINE 1,000ML 1,000 ML IV ONE (21:00)
[2017-03-02] MEDS ORDERED: ONDANSETRON ODT 4 MG TAB.RAPDIS PO ONE ×2 (22:15→22:30)
[2017-03-02 22:40] LABS: AMPHETAMINE/METHAMPHETAMINE NEG (NEG); BARBITURATES NEG (NEG); BENZODIAZEPINES NEG (NEG); CANNABINOIDS NEG (NEG); COCAINE NEG (NEG); METHADONE NEG (NEG); OPIATES NEG (NEG); PHENCYCLIDINE NEG (NEG)
[2017-03-02 22:44] LABS: CLARITY,URINE CLOUDY; COLOR,URINE STRAW
[2017-03-02 22:45] LABS: BILIRUBIN,URINE NEG (NEG); GLUCOSE,URINE 500 mg/dL (NEG); NITRITE,URINE NEG (NEG); UROBILINOGEN,URINE 0.2 mg/dL (0.2 mg/dL)
[2017-03-02] MEDS ORDERED: FENTANYL PF 100 MCG/2 ML VIAL. IM ONE (22:45)
[2017-03-02 22:46] LABS: BACTERIA,URINE 0 /HPF (0-FEW); SQUAMOUS EPITHELIAL CELL,UR MANY /LPF
[2017-03-02] MEDS ORDERED: PROMETHAZINE IM 25 MG/ML VIAL IM ONE (23:30)
[2017-03-03 00:25] VITALS: BP 108/63
--- NOTE | 2017-03-03 07:22 | RAD ---
Portable chest, 03/02/2017: History: Shortness of breath after unsuccessful central line placement Comparison is made to a study from 02/26/2017. The heart size and pulmonary vascularity are normal. There is a right-sided pneumothorax estimated at 20% in volume. No pulmonary infiltrate is seen. There is no evidence of pleural fluid. IMPRESSION: Small right pneumothorax
[2017-03-12] MEDS ORDERED: PANT40TA5 PO (09:04)
== END 2017-03-03 00:41 | disposition short-term general hospital (02) ==
LOC: ER 19:48
DX: R10.84 Generalized abdominal pain (principal); R11.2 Nausea with vomiting, unspecified; E13.10 Other specified diabetes mellitus with ketoacidosis without coma; Z88.6 Allergy status to analgesic agent; Z88.8 Allergy status to other drugs, medicaments and biological substances; Z91.041 Radiographic dye allergy status
CPT/HCPCS: 36415; 71010; 80305; 81001; 82947; 96372; 99285; J2550; J3010; Q0162; G0481

== ENCOUNTER 2017-03-08 13:11 | Inpatient (IN) | payer BC ==
[~2017-03-08] VITALS: Ht 170.2 cm; Wt 62.8 kg
[2017-03-08] MEDS ORDERED: METOCLOPRAMIDE HCL 10 MG/2 ML VIAL. IM ONE (13:45)
--- NOTE | 2017-03-08 13:57 | EKG ---
[address] [address] Test Date: 2017-03-08 Test Time: 13:55:41 Pat Name: CHALO RAYMUNDO Department: Room: Gender: F [employer]: : 1990 Requested By: CEDRIC MELENDEZ Order Number: [id number] Andre MD: Alex Espinoza Measurements Intervals [place] Rate: 132 P: 62 AR: 132 QRS: 75 QRSD: 76 T: 12 QT: 274 QTc: 409 Interpretive Statements SINUS TACHYCARDIA Electronically Signed On 03-14-2017 15:01:24 CDT by Alex Espinoza
--- NOTE | 2017-03-08 14:00 | PHYS DOC ---
General Chief Complaint: HYPERGLYCEMIA Stated Complaint: HIGH BLOOD SUGAR Time Seen by MD: 13:17 Source: patient, old records Exam Limitations: no limitations Problems: History of Present Illness Initial Comments Pt is 26/F to ED private auto c/o DKA, n/v. Pt is well known to this ED very brittle DM1 with notoriously difficult vascular access c/o DKA, n/v. Pt was inpatient at [facility] for DKA and L pneumothorax from unsuccessful central line attempt. Pt says "the only time I ever feel good is in the hospital getting fluids." States she was d/c home 03/06 (Monday), and by Monday night states her glucose was 500+ and she had n/v/abdominal pain. She says she has been taking meds as prescribed but has had constant n/v, PO intolerance. Today she c/o whole body aching especially abdominal, as well as n/v. Sx are consistent with prior DKA. POC glucose in ED 229, urine dip: glucose 100, ket > 160, SG > 1.030, pro 100, LE small, NIT neg States she's been sober from methamphetamine 2 weeks Timing/Duration: getting worse Severity: severe Modifying Factors: improves with medication, worse with movement, improves with rest Associated Symptoms: headaches, loss of appetite, malaise, nausea/vomiting, shortness of breath, weakness, other Allergies: Coded Allergies: acetaminophen (Verified Allergy, Intermediate, HIVES, 11/27/16) "WHEN I HAD MY ANKLE BX THEY GAVE ME TYLENOL AND I GOT HIVES ON MY LEG." adhesive tape (Verified Allergy, Intermediate, 11/27/16) I S O L A T I O N *CONTACT* (Verified Allergy, Unknown, 11/27/16) +MRSA screen 11-03-16 Past Medical History Medical History: diabetes, other (DM, gastroparesis, noncompliance) Surgical History: noncontributory Social History Alcohol: occasionally Drugs: other (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) Review of Systems Constitutional: diaphoresisdenies fever, malaise weakness Respiratory: denies cough, shortness of breathdenies wheezing Cardiovascular: denies chest pain, denies palpitations, denies syncope Gastrointestinal: abdominal paindenies constipation, denies diarrhea, nausea vomiting Genitourinary: denies dysuria, denies frequency, denies hematuria Musculoskeletal: see HPIdenies joint swelling, denies neck pain Psychiatric/Neurological: see HPI headachedenies numbness, denies paresthesia Hematologic/Lymphatic: denies blood clots, denies easy bleeding, denies easy bruising Physical Exam General Appearance: moderate distress (vomitting), thin Eyes: bilateral eye EOMI, bilateral eye PERRL, bilateral eye normal inspection Ear, Nose, Throat: hearing grossly normal, normal ENT inspection (dry membranes ), normal pharynx Neck: non-tender, supple Respiratory: normal breath sounds, no respiratory distress, other (R chest tube with sterile dressing, serosanguinous drainage (minimal) C/S collected no erythema) Cardiovascular: normal peripheral pulses, tachycardia Gastrointestinal: non tender, soft Back: no CVA tenderness, no vertebral tenderness Extremities: non-tender, normal inspection Neurologic/Psychiatric: crime scene analyst II-XII nml as tested, no motor/sensory deficits, alert, oriented x 3, depressed affect, other (No SI/HI) Skin: pallor (poor turgor) Orders, Labs, Meds EKG: sinus tachycardia 132 bpm no STEMI Chest AP: no acute cardiopulmonary process WBC 9.5, Glu 229, AG 19, lactic acid 2.1, UA with SE contamination + products of infection C/S pending. Pt received NS bolus/drip in ED, reglan 10mg, reg insulin 4u IV, rocephin 1g IV. Blood Cultures as well as wound cultures pending. Pt discussed at length with Dr Grigsby who is familiar with pt. She accepts pt for admission and requests telemetry floor with continued SC SSI, IV fluids and antiemetics. IMPRESSIONS: DKA Gastroparesis UTI Noncompliance h/o methamphetamine addiction Departure Time of Disposition: 15:27 Disposition: ADMITTED INPATIENT Diagnosis: DKA, gastroparesis, UTI Condition: STABLE CEDRIC MELENDEZ DO Mar 08, 2017 14:00
[2017-03-08 14:04] LABS: BASO # 0.1 x10^3/uL (0.0-0.2); BASO % 1 % (0-3); EOS % 0 % (0-3); HEMATOCRIT 40.8 % (36.0-47.0); HEMOGLOBIN 13.4 g/dL (12.0-15.5); LYMPH # 2.9 x10^3/uL (1.0-4.8); LYMPH % 30 % (24-48); MEAN CORPUSCULAR HEMOGLOBIN 30 pg (25-35); MEAN CORPUSCULAR HGB CONC 33 g/dL (31-37); MEAN CORPUSCULAR VOLUME 91 fL (79-100); MONO # 0.6 x10^3/uL (0.0-1.1); MONO % 6 % (0-9); NEUT # 5.9 x10^3uL (1.8-7.7); NEUT % 62 % (31-73); PLATELET COUNT 335 x10^3/uL (140-400); RED BLOOD COUNT 4.49 x10^6/uL (3.50-5.40); RED CELL DISTRIBUTION WIDTH 14.8 % (11.5-14.5); WHITE BLOOD COUNT 9.5 x10^3/uL (4.0-11.0)
[2017-03-08] MEDS ORDERED: IV NORMAL SALINE 1,000ML 1,000 ML IV SCH (14:10)
--- NOTE | 2017-03-08 14:24 | RAD ---
Portable chest, 03/08/2017: History: Tachycardia Comparison is made to a study from 03/02/2017. The heart size and pulmonary vascularity are normal. No pulmonary infiltrates are seen. There is no evidence of pleural fluid. IMPRESSION: No acute cardiopulmonary abnormality is detected.
[2017-03-08 14:26] LABS: BACTERIA,URINE FEW /HPF (0-FEW); BILIRUBIN,URINE SMALL (NEG); CLARITY,URINE CLOUDY; COLOR,URINE YELLOW; GLUCOSE,URINE 100 mg/dL (NEG); NITRITE,URINE NEG (NEG); RBC,URINE RARE /HPF (0-2); SQUAMOUS EPITHELIAL CELL,UR MOD /LPF; UROBILINOGEN,URINE 1 mg/dL (0.2 mg/dL); WBC,URINE >40 /HPF (0-4)
[2017-03-08] MEDS ORDERED: INSULIN REGULAR 100 UNIT/ML 10ML VIAL. IV ONE (14:30)
[2017-03-08 14:35] LABS: TOTAL PROTEIN 8.3 g/dL (6.4-8.2)
[2017-03-08 14:36] LABS: ALBUMIN 3.7 g/dL (3.4-5.0); DIRECT BILIRUBIN 0.1 mg/dL (0.0-0.2); TOTAL BILIRUBIN 0.5 mg/dL (0.2-1.0)
[2017-03-08] MEDS: IV NORMAL SALINE 1,000ML 1,000 ML IV SCH ×3 (15:12→21:17)
[2017-03-08] MEDS ORDERED: CEFTRIAXONE SODIUM 1 GM in IV NORMAL SALINE 50ML 50 ML IV ONE (15:25)
[2017-03-08 15:47] LABS: AMPHETAMINE/METHAMPHETAMINE NEG (NEG); BARBITURATES NEG (NEG); BENZODIAZEPINES NEG (NEG); CANNABINOIDS NEG (NEG); COCAINE NEG (NEG); METHADONE NEG (NEG); OPIATES POS (NEG); PHENCYCLIDINE NEG (NEG)
--- NOTE | 2017-03-08 16:07 | ACF ---
Admission Criteria Forms GENERAL ADMISSION CRITERIA (Place 'X' for any and all applicable criteria): Admission is indicated for ANY ONE of the following: [ ]I. Hemodynamic instability as indicated by ANY ONE of the following(1)(2) (3)(4)(5): [ ]a) Vital sign abnormality not readily corrected by appropriate treatment within 12 to 24 hours indicated by ANY ONE of the following: [ ]i) Hypotension [ ]ii) Symptomatic Tachycardia unresponsive to treatment (eg , analgesia, fluids, sedation as indicated) [ ]iii) Orthostatic vital sign changes unresponsive to treatment (eg, fluids) [ ]b) Vital sign abnormality that is severe indicated by ANY ONE of the following: [ ]i) Inadequate perfusion indicated by ANY ONE of the following: [ ]1) Lactic acidosis (greater than 2 mmol/L) [ ]2) New abnormal capillary refill (greater than 3 seconds) [ ]3) Other metabolic acidosis (arterial pH less than 7.35) not otherwise explained [ ]4) Reduced urine output [ ]5) Altered mental status [ ]6) Myocardial Ischemia [ ]v) Mean arterial pressure[A] less than 60 mm Hg [ ]vi) Mean arterial pressure[A] less than 70 mm Hg after 30 minutes of appropriate treatment (eg, fluid resuscitation) [ ]vii) IV inotropic or vasopressor medication required to maintain adequate blood pressure or perfusion [ ]viii) Sustained heart rate greater than 120 beats per minute in adult or child 6 years or older[B]] [ ]II. Hypertension requiring inpatient treatment as indicated by ANY ONE of the following(6)(7)(8): [ ]a) SBP greater than 220 mm Hg or DBP greater than 120 mm Hg despite treatment [ ]b) SBP greater than 140 mm Hg or DBP greater than 100 mm Hg with evidence of acute end organ damage as indicated by ANY ONE of the following: [ ]i) Encephalopathy [ ]ii) Acute renal failure as indicated by new onset of ANY ONE of the following(9)(10)(11)(12)(13): [ ]1) A 3-fold rise in serum creatinine from baseline [ ]2) Serum creatinine greater than 4 mg/dL ( 354 micromoles/L) with acute rise greater than 0.5 mg/dL (44.2 micromoles/L) [ ]3) Reduction of more than 75% in estimated glomerular filtration rate from baseline [ ]4) Estimated glomerular filtration rate less than 35 mL/min/1.73m2 (0.59 mL/sec/1.73m2) in child up to 18 years of age [ ]5) Cessation of urine output indicated by ALL of the following: [ ]A. Adequate volume status [ ]B. Inadequate urine output as indicated by ANY ONE of the following: [ ]a. Urine output less than 0.3 mL/kg/hr for 24 hours [ ]b. Anuria (urine output less than 0.1 mL/kg/hr) for 12 hours [ ]iii) Aortic dissection [ ]iv) Myocardial ischemia [ ]v) Left ventricular heart failure [ ]vi) Retinal hemorrhage [ ]vii) Other significant finding [ ]c) Hypertension in child requiring inpatient treatment as indicated by ALL of the following(14)(15)(16): [ ]i) Outpatient treatment not effective, not available, or not appropriate [ ]ii) SBP or DBP greater than 95th percentile for age [ ]iii) Evidence of acute end organ damage as indicated by ANY ONE of the following: [ ]1) Altered mental status [ ]2) Acute renal failure as indicated by new onset of ANY ONE of the following(9)(10)(11)(12)(13): [ ]A. A 3-fold rise in serum creatinine from baseline [ ]B. Serum creatinine greater than 4 mg/dL (354 micromoles/L) with acute rise greater than 0.5 mg/dL (44.2 micromoles/L) [ ]C. Reduction of more than 75% in estimated glomerular filtration rate from baseline [ ]D. Estimated glomerular filtration rate less than 35 mL/min/1.73m2 (0.59 mL/sec/1.73m2)in child up to 18 years of age [ ]E. Cessation of urine output indicated by ALL of the following: [ ]a. Adequate volume status [ ]b. Inadequate urine output as indicated by ANY ONE of the following: [ ]1) Urine output less than 0.3 mL/kg/hr for 24 hours [ ]2) Anuria (urine output less than 0.1 mL/kg/hr) for 12 hours [ ]3) Severe headache [ ]4) Visual disturbance [ ]5) Retinal hemorrhage [ ]6) Other significant finding [ ]III. Acute cardiac or peripheral ischemia as indicated by ANY ONE of the following: [ ]a) Acute coronary syndrome(17)(18) [ ]b) Acute peripheral ischemia (eg, pulseless, cool, mottled, or cyanotic extremity)(19) [ ]IV. Cardiac arrhythmias or findings of immediate concern indicated by ANY ONE of the following(20)(21): [ ]a) Heart rhythms that are inherently dangerous or unstable indicated by ANY ONE of the following(22)(23)(24): [ ]i) Resuscitated ventricular fibrillation or cardiac arrest [ ]ii) Ventricular escape rhythm [ ]iii) Sustained ventricular tachycardia (30 seconds or more of ventricular rhythm at greater than 100 beats per minute) [ ]iv) Nonsustained ventricular tachycardia and ANY ONE of the following: [ ]1) Suspected cardiac ischemia as cause or consequence of ventricular tachycardia [ ]2) In setting of acute myocarditis [ ]b) Unstable cardiac conduction defects indicated by ANY ONE of the following(24)(25)(26): [ ]i) Type II second-degree atrioventricular block [ ]ii) Third-degree atrioventricular block [ ]iii) New-onset left bundle branch block with suspected myocardial ischemia [ ]c) Any heart rhythm and ANY ONE of the following(22)(23)(27)(28)( 29): [ ] i) Continuous long-term ECG monitoring needed (eg, initiation of drug requiring monitoring for more than 24 hours) [ ] ii) Patient has automatic implanted cardioverter defibrillator that is repeatedly firing, malfunctioning, or in need of immediate adjustment of settings beyond the scope of ambulatory or observation care. [ ]d) Heart rhythms of concern due to ANY ONE of the following: [ ]i) Hypotension [ ]ii) Respiratory distress [ ]iii) Association with other significant symptoms (eg, bradycardia with syncope or ongoing dizziness, supraventricular tachycardia with chest pain) (27)(28) (30) [ ] V. Severe heart failure as indicated by ANY ONE of the following ( 31)(32): [ ]a) Respiratory distress [ ]b) Hypotension [ ]c) Anasarca (refractory to outpatient therapy) [ ]d) Cardiac arrhythmias of immediate concern [ ]e) Myocardial ischemia [ ]. Respiratory abnormalities, including ANY ONE of the following(33)(34) (35)(36): [ ]a) Respiratory rate greater than 30 breaths per minute unresponsive to treatment [A] [ ]b) New saturation of arterial oxygen less than 90% [ ]c) New partial pressure of carbon dioxide greater than 44 mm Hg ( 5.9 kPa) [ ]d) Supplemental oxygen or respiratory treatments needed that are new or not performable at other levels of care [ ]e) New-onset cyanosis [ ]f) Inability to protect airway [ ]g) Chronic lung disease with severe deterioration (not responsive to emergency and observation care treatment as appropriate) as indicated by ANY ONE of the following(34)(36 ): [ ]i) SaO2 5% below baseline in patient with chronic hypoxemia [ ]ii) New requirement for supplemental oxygen to keep SaO2 at baseline or acceptable level [ ]iii) Required supplemental oxygen performable only in acute inpatient setting [ ]iv) Severe airflow or ventilation abnormalities [ ]v) Previously mobile patient unable to walk between rooms [ ]vi Inability to eat or sleep due to dyspnea [ ]vii) Rapid rate of exacerbation onset [ ]viii) Altered mental status ]VII. Severe airflow or ventilation abnormalities (not responsive to emergency and observation care treatment as appropriate) as indicated by ANY ONE of the following(33)(34)(35)(37): [ ]a) PCO2 greater than 42 mm Hg (5.6 kPa) and pH less than 7.35 (new ) [ ]b) Documented PCO2 increased more than 5 mm Hg (0.7 kPa) from disease baseline [ ]c) Airflow measurements [B] less than 60% of previous best or predicted (eg, peak expiratory flow rate less than 300 L/minute) despite intensive emergent treatment [C] [ ]d) Required respiratory treatments that are performable only in acute inpatient setting [ ]VIII. Impending or actual respiratory arrest ( Also use Respiratory Failure GRG for severe respiratory disease and long-term mechanical ventilation patients) [ ]IX. Neurologic abnormalities, including ANY ONE of the following: [ ]a) New findings that suggest ANY ONE of the following: [ ]i) BENEFIT DIRECTOR infection(38) [ ]ii) Cerebral bleeding, ischemia, or vasospasm(39)(40) [ ]iii) Increased intracranial pressure, hydrocephalus, or cerebral edema(41)(42)(43) [ ]iv) Spinal cord injury(44) [ ]b) Uncontrolled seizures(45) [ ]c) New-onset coma (eg, Juani coma scale score less than 9) or unexplained abnormal mental status (eg, Juani coma scale score less than 14) [D](41)(46)(47) [ ]X. New-onset severe neurologic findings requiring inpatient care; examples include(42)(48)(49): [ ]a) Papilledema [ ]b) Cerebral edema [ ]c) Mass effect on CT scan [ ]XI. Suspected acute intra-abdominal process with peritoneal signs, abdominal mass, or similar findings (50)(51)(52) [x]XII. Severe physiologic disorder remaining after emergency or observation level care (as appropriate) as indicated by ANY ONE of the following (53): [ ]a) Significant dehydration [x]b) Diabetic ketoacidosis [ ]c) Hyperglycemic hyperosmolar state (eg, osmolality greater than 320 mOsm/kg (mmol/kg) [ ]d) Hypoglycemia [ ]e) Other (new) acid-base disorder with pH less than 7.35 or greater than 7.5(54) [ ]f) Thyroid storm (55) [ ]g) Myxedema coma (55) [ ]XIII. Abdominal abnormalities with ANY ONE of the following(56)(57): [ ]a) Absent bowel sounds with complete ileus [ ]b) Signs of intestinal obstruction or peritonitis [E] [ ]c) Nausea and vomiting that cannot be controlled with outpatient or observation care [ ]XIV. Acute renal failure as indicated by new onset of ANY ONE of the following(9)(10)(11)(12)(13): [ ]a) A 3-fold rise in serum creatinine from baseline [ ]b) Serum creatinine greater than 4 mg/dL (354 micromoles/L) with acute rise greater than 0.5 mg/dL (44.2 micromoles/L) [ ]c) Reduction of more than 75% in estimated glomerular filtration rate from baseline [ ]d) Estimated glomerular filtration rate less than 35 mL/min/ 1.73m2 (0.59 mL/sec/1.73m2) in child up to 18 years of age [ ]e) Cessation of urine output indicated by ALL of the following: [ ]i) Adequate volume status [ ]ii) Inadequate urine output as indicated by ANY ONE of the following: [ ]1) Urine output less than 0.3 mL/kg/hr for 24 hours [ ]2) Anuria (urine output less than 0.1 mL/kg/hr) for 12 hours [ ]XV. Significant uremic complications as indicated by ANY ONE of the following(58)(59)(60): [ ]a) Outpatient therapy is ineffective or not feasible for ANY ONE of the following: [ ]i) Severe heart failure [ ]ii) Severehypertension [ ]iii) Pleural effusion [ ]iv) Pericarditis or pericardial effusion [ ]b) Cardiac arrhythmias of immediate concern [ ]c) Intractable nausea or vomiting [ ]d) Recurrent seizures [ ]e) Encephalopathy [ ]f) Bleeding abnormalities (eg, platelet dysfunction) with active (eg, gastrointestinal) bleeding [ ]g) Dialysis indicated before long-term access or ambulatory arrangements can be made [ ]h) Significant metabolic or electrolyte abnormalities (eg, severe acidosis or hyperkalemia) [ ]XVI. High fever or other high-risk infection situation as indicated by ANY ONE of the following(61)(62)(63)(64): [ ]a) Outpatient and observation care antimicrobial treatment unavailable, not effective, or not appropriate [ ]b) Documented bacteremia [ ]c) Temperature greater than 40.5 degrees C (104.9 degrees F) ( oral) [ ]d) Temperature greater than 39.5 degrees C (103.1 degrees F) ( oral) or less than 36 degrees C (96.8 degrees F) (rectal) that does not respond to e treatment and observation care [ ] XVII. Temperature less than 95 degrees F (35 degrees C)(rectal)(65) [ ] XVIII. Severe nutritional abnormalities as indicated by ALL of the following (66)(67): [ ]a) Inability to tolerate or establish sufficient oral or other enteral nutrition in outpatient setting [ ]b) Parenteral nutrition regimen need that must be implemented on inpatient basis [ ] XIX. Severe electrolyte abnormalities indicated by ALL of the following(68) (69)(70): [ ]a) Electrolytes and associated findings are not as expected for patient baseline or acceptable treatment effects. [ ]b) Severe abnormalities indicated by ANY ONE of the following: [ ]i) Sodium less than 130 mEq/L (mmol/L) (new) [ ]ii)Sodium less than 135 mEq/L (mmol/L) with ANY ONE of the following: [ ]1) Uncorrectable (to near normal or chronic baseline) after trial of outpatient and emergency treatment [ ]2) Altered mental status [ ]3) Seizures [ ]4) Severe medical etiology requiring inpatient management (eg, heart failure, hypovolemia) [ ]iii) Sodium greater than 155 mEq/L (mmol/L) [ ]iv) Sodium greater than 150 mEq/L (mmol/L) with ANY ONE of the following: [ ]1) Uncorrectable (to near normal or chronic baseline) with outpatient and emergency treatment [ ]2) Altered mental status [ ]3) Seizures [ ]4) Severe medical etiology (eg, hypovolemia, diabetes insipidus) [ ]v) Potassium less than 2.5 mEq/L (mmol/L) despite outpatient and emergency treatment [ ]vi) Potassium less than 3 mEq/L (mmol/L) with ANY ONE of the following: [ ]1) Weakness [ ]2) Cardiac abnormality (eg, arrhythmia, conduction disturbance) [ ]3) Cardiac ischemia [ ]4) Ileus [ ]5) Ongoing medical cause requiring inpatient management (eg, acute renal wasting or SIADH) [ ]6) Other severe symptoms [ ]vii) Potassium greater than 6.5 mEq/L (mmol/L) [ ]viii) Potassium greater than 5 mEq/L (mmol/L) with ANY ONE of the following: [ ]1) Uncorrectable (to near normal or chronic baseline) with outpatient and emergency treatment [ ]2) Severe ECG findings [F] [ ]3) Acute worsening of renal failure (creatinine greater than 2.5 mg/dL (221 micromoles/L) or significant elevation for age and size) [ ]4) Severe weakness [ ]5) Severe medical etiology (eg, hemolysis, infection, drug overdose) [ ]ix) Calcium less than 7 mg/dL (1.75 mmol/L) despite outpatient and emergency treatment (72) [ ]x) Calcium less than 8 mg/dL (2 mmol/L) with significant symptoms or findings; examples include(72): [ ]1) Altered mental status [ ]2) Muscle spasms [ ]3) Seizures [ ]4) Breathing difficulty [ ]5) Cardiac abnormality (eg, arrhythmia or conduction disturbance) [ ]xi) Calcium greater than 14 mg/dL (3.5 mmol/L)(72) [ ]xii) Calcium greater than 12 mg/dL (3 mmol/L) with ANY ONE of the following(72): [ ]1) Uncorrectable (to near normal or chronic baseline) with outpatient and emergency treatment [ ]2) Significant dehydration or hypovolemia as indicated by ALL of the following(70)(73)(74): [ ]A. Not resolved with initial treatments [ ]B. Clinically significant dehydration as indicated by ANY ONE of the following: [ ]a. Vomiting refractory to outpatient treatment (ie, precluding oral rehydration) [ ]b. Inability to drink [ ]c. Hypernatremia or other electrolyte abnormality unable to be corrected with outpatient and emergency treatment [ ]d. Failure to remain hydrated with outpatient therapy [ ]e. Reduced urine output [ ]f. Hypotension [ ]g. Serious cause for dehydration requiring acute hospitalization (eg, bowel obstruction, increased intracranial pressure, infectious cause) [ ]h. Child with ANY ONE of the following(75): [ ]1) Severe abdominal tenderness [ ]2) Adequate care not available at home [ ]3) Severe dehydration ( greater than 9% loss of body weight) [ ]4) Significant symptoms or findings; examples include: [ ]A. Altered mental status [ ]B. Cardiac abnormality (eg, arrhythmia, conduction disturbance) [ ]C. Malignant etiology requiring inpatient treatment [ ]xiii) Phosphorus less than 1 mg/dL (0.32 mmol/L) [ ]xiv) Phosphorus less than 1.5 mg/dL (0.48 mmol/L) with ANY ONE of the following: [ ]1) Patient unresponsive to outpatient and emergency treatment [ ]2) Significant symptoms or findings; examples include: [ ]A. Weakness [ ]B. Altered mental status [ ]C. Breathing difficulty [ ]D. Seizures [ ]E. Rhabdomyolysis [ ]xv) Phosphorus greater than 10 mg/dL (3.2 mmol/L) [ ]xvi) Phosphorus greater than 4.5 mg/dL (1.45 mmol/L) (new) with ANY ONE of the following: [ ]1) Severe medical etiology (eg, crush injury, acute renal failure) [ ]2) Associated hypocalcemia with significant findings; examples include: [ ]A. Neurologic symptoms [ ]B. Altered mental status [ ]C. Muscle spasms [ ]D. Seizures [ ]E. Breathing difficulty [ ]F. Cardiac abnormality (eg, arrhythmia, conduction disturbance) [ ]xvii) Magnesium less than 1 mg/dL (0.41 mmol/L) [ ]xviii) Magnesium less than 1.5 mg/dL (0.62 mmol/L) with ANY ONE of the following: [ ]1) Patient unresponsive to outpatient and emergency treatment [ ]2) Associated hypocalcemia with significant findings; examples include: [ ]A. Altered mental status [ ]B. Muscle spasms [ ]C. Seizures [ ]D. Breathing difficulty [ ]E. Cardiac abnormality (eg, arrhythmia , conduction disturbance) [ ]3) Associated hypokalemia (potassium less than 3 mEq/L (mmol/L)) with risk of arrhythmia [ ]xix) Magnesium greater than 4 mEq/L (2 mmol/L) [ ]xx) Magnesium greater than 2.5 mEq/L (1.25 mmol/L) with significant symptoms or findings; examples include: [ ]1) Weakness [ ]2) Altered mental status [ ]3) Cardiac abnormality (eg, arrhythmia, conduction disturbance) [ ]4) Breathing difficulty [ ]5) Severe medical etiology (eg, renal failure, hypovolemia) [ ]xxi) Uric acid greater than 20 mg/dL (1190 micromoles/L)(76) [ ]xxii) Uric acid greater than 8 mg/dL (476 micromoles/L) with significant symptoms or findings of tumor lysis syndrome; examples include(76): [ ]1) Creatinine greater than 1.5 times upper limit of normal [ ]2) Cardiac abnormality (eg, arrhythmia, conduction disturbance) [ ]3) Seizure [ ]XX. Acute blood loss causing significant abnormality as indicated by ANY ONE of the following(77)(78): [ ]a) Hemoglobin less than 10 g/dL (100 g/L) (not baseline) [ ]b) Hematocrit less than 30% (0.30) (not baseline) [ ]c) Repeat hematocrit decreased more than 2% (0.02) [ ]d) Uncontrolled bleeding [ ]XXI. Severe anemia indicated by ANY ONE of the following(78)(79): [ ]a) Altered mental status [ ]b) Chest pain [ ]c) Exertional dyspnea [ ]d) Syncope [ ]e) Other findings suggesting inadequate perfusion [ ]f) Treatment with transfusion or volume replacement is ineffective at resolving ANY ONE of the following [G]: [ ]i) Tachycardia for age [ ]ii) Orthostatic vital sign changes as indicated by ANY ONE of the following(80): [ ]1) Fall in SBP of 20 mm Hg or more 1 to 3 minutes after patient sits or stands from recumbent position [ ]2) Fall in DBP of 10 mm Hg or more 1 to 3 minutes after patient sits or stands from recumbent position [ ]XXII. High-risk low platelet count as indicated by ANY ONE of the following( 81)(82): [ ]a) Severe or life-threatening bleeding (eg, intracranial, major gastrointestinal, or extensive mucosal bleeding), with any reduced platelet count [ ]b) Platelet count less than 20,000/mm3 (20 x109/L) with any active bleeding [ ]c) Platelet count less than 10,000/mm3 (10 x109/L) with minor purpura or petechiae [ ]d) Platelet count less than 5000/mm3 (5 x109/L) [ ]e) Low platelet count with hemolytic anemia [ ]XXIII. Disseminated intravascular coagulation(77)(83) [ ]XXIV. Severe adverse drug or systemic toxin reaction requiring inpatient treatment; examples include(84)(85): [ ]a) Serotonin syndrome(86) [ ]b) Neuroleptic malignant syndrome(86) [ ]c) Cholinergic syndrome with severe symptoms (eg, bronchorrhea, weakness, mental status changes, seizures) [ ]d) Sympathetic syndrome with severe symptoms (eg, seizures, mental status changes, cardiac dysrhythmias) [ ]e) Anticholinergic syndrome [ ]XXV. Severe pain requiring acute inpatient management as indicated by ALL of the following (87)(88)(89): [ ]a) Continuous or frequent (eg, every 2 to 4 hours) parenteral analgesics required [H] [ ]b) Rapid improvement expected from treatment or acute intervention (eg, surgery, anesthesia procedure) [ ]XXVI.Severe behavioral health issues judged unmanageable at a lower level of care (eg, residential) in a patient who is ANY ONE of the following(91) [ ]a) Acutely suicidal [ ]b) A danger to self (eg, self-mutilating or suicidal behavior) [ ]c) A danger to others (eg, assaultive or homicidal behavior) [ ]d) Incapacitated because of grave disability (eg, inability to provide for self at lower level of care) (92) [ ]XXVII. Inpatient monitoring needed; examples include(1)(3)(87)(93)(94)(95)(96 ): [ ]a) Vital signs, neurologic signs, or vascular checks more frequently than every 4 hours [ ]b) Cardiac or respiratory monitoring beyond the scope (eg, over 24 hours) of observation care [ ]c) Pulmonary artery catheter monitoring [ ]d) Suspected compartment syndrome(97) (98) [ ]e) Cerebral bleeding, hydrocephalus, or vasospasm monitoring [ ]f) Increased intracranial pressure or cerebral edema monitoring [ ]g) monitoring [ ]XXVIII. Treatment requiring inpatient care; examples include: [ ]a) IV fluid to replace significant ongoing losses (greater than 3 L/m2 per day)(53) [ ]b) High concentration oxygen (greater than 40%)(33)(99)(100) [ ]c) Frequent respiratory therapy (more frequently than every 4 hours) to maintain airflow rates greater than 60% of baseline(33)(99)(100) [ ]d) Epidural analgesia(87) [ ]e) IV anticoagulation, vasoactive, or antiarrhythmic medication(19 )(23) [ ]f) Acute thrombolytics (generally require 24 hours of observation )(101)(102) [ ]XXIX. Emergency procedures needed; examples include: [ ]a) Emergency inpatient surgery [ ]b) Temporary pacemaker placement(103) [ ]c) Chest tube placement with active evacuation (eg, suction, drainage)(104) [ ]d) Emergent cardioversion(105) [ ]e) Emergent cardiac or vascular procedures (eg, cardiac catheterization, angioplasty) (17)(18) [ ]f) Emergent dialysis access placement and institution(10)(106) [ ]g) Emergent pericardiocentesis(107) [ ]h) Emergent plasmapheresis or leukapheresis(83) [ ]i) Emergent tracheostomy The original [employer] content created by [employer] has been revised. The portions of the content which have been revised are identified through the use of italic text or in bold, and [email or web address] has neither reviewed nor approved the modified material. All other unmodified content is copyright [employer]. Please see references footnoted in the original [employer] edition 2016 Admission Criteria Met?: Yes KLEVER MATAMOROS Mar 08, 2017 16:07
[2017-03-08] MEDS: ONDANSETRON PF 4 MG/2 ML VIAL. IV PRN (16:53)
--- NOTE | 2017-03-08 17:00 | NUR ---
Patient new admit to room 111. Alert and oriented x 4. Complains of nausea/vomiting, states she was just released from [facility] on Monday, has not felt well since. Complains of generalized pain /. Chest tube insertion site to right chest wall noted to be reddened with drainage. This site was cultured in ED. Wound care consulted. Attempted to photograph site for admit checklist, unable at this time due to camera malfunction. Site measured 1cm x 0.7 cm x 0.5 cm. Aquacel AG and foam applied. See wound assessment. Blood sugar 207 on arrival to floor, no orders for insulin gtt at this time. See eMAR for medications administered for above mentioned complaints. IV fluids running. Patient oriented to room, use of call light, and plan of care. Received verbalization of understanding, denies questions/needs. Will monitor.
[2017-03-08] MEDS ORDERED: HYDR-2666 PO ×2 (17:10→17:11)
[2017-03-08] MEDS ORDERED: TRAMADOL 50 MG TABLET. PO PRN (17:15)
[2017-03-08] MEDS ORDERED: ONDANSETRON ODT 4 MG TAB.RAPDIS PO PRN (17:15)
[2017-03-08] MEDS ORDERED: PROMETHAZINE 25 MG SUPP.RECT. RC PRN (17:15)
[2017-03-08] MEDS ORDERED: HYDROCODONE/APAP 5/325MG TABLET. PO PRN (17:15)
[2017-03-08] MEDS ORDERED: DEXTROSE 50% 25 GM / 50ML DISP.SYRIN. IV PRN ×2 (17:15→18:15)
[2017-03-08] MEDS: INSULIN ASPART 300 UNITS/3 ML INSULN.PEN SQ SCH ×4 (17:25→21:00)
[2017-03-08] MEDS: PROMETHAZINE 12.5 MG in IV NORMAL SALINE 50ML 50 ML IV PRN (17:41)
--- NOTE | 2017-03-08 17:45 | NUR ---
wound care patient seen per wound care consult. see wound assessment. patient has an open incision to the right flank area, from removal of a chest tube, at a different facility. wound cleaned, measured and recommendations of Aquacel Ag with an Aquacel foam, change every 3-4 days. unable to obtain a picture for the chart as the camera was not working. dressing applied and Kiara RN at bedside during assessment, spoke to her about the POC as well as educated patient on the POC of the dressing. wound care will continue to f/u for possible changes.
[2017-03-08 17:46] VITALS: BP 125/85
[2017-03-08 18:28] LABS: ALBUMIN 3.1 g/dL (3.4-5.0); ALBUMIN/GLOBULIN RATIO 0.8 (1.0-1.7); CALCIUM 8.6 mg/dL (8.5-10.1); CREATININE 0.7 mg/dL (0.6-1.0); MAGNESIUM 1.6 mg/dL (1.8-2.4); TOTAL BILIRUBIN 0.4 mg/dL (0.2-1.0); TOTAL PROTEIN 7.1 g/dL (6.4-8.2)
[2017-03-08] MEDS: MAGNESIUM OXIDE 400 MG TABLET PO SCH (19:37)
[2017-03-08] MEDS: METOCLOPRAMIDE 10 MG TABLET PO SCH (19:37)
[2017-03-08] MEDS: MUPIROCIN 2% TOPICAL OINTMENT 22GM TUBE. TP SCH (19:40)
[2017-03-08] MEDS: INSULIN DETEMIR 300 UNITS/3 ML INSULN.PEN. SQ SCH (19:42)
[2017-03-08 19:52] VITALS: BP 133/69
[2017-03-08] MEDS ORDERED: MAGNESIUM SULFATE 1GM 100 ML IV ONE (21:00)
--- NOTE | 2017-03-08 22:32 | NUR ---
Continuing to check BS q2h, glucose remains WNL. HS Levemir given. Pt continues to have episodes of N/V. No SOA or dyspnea noted. Assessed area to right chest wound, picture taken and dressing applied. Area reddened with scant amount of red drainage. Denies complaints at this time. Able to verbalize POC, will continue to monitor.
[2017-03-08 23:21] VITALS: BP 130/82
[2017-03-09] MEDS: INSULIN ASPART 300 UNITS/3 ML INSULN.PEN SQ SCH ×9 (03:57→21:00)
[2017-03-09] MEDS: IV NORMAL SALINE 1,000ML 1,000 ML IV SCH ×2 (04:00→12:33)
[2017-03-09 06:02] VITALS: BP 128/90
[2017-03-09 06:09] LABS: BASO # 0.1 x10^3/uL (0.0-0.2); BASO % 1 % (0-3); EOS # 0.1 x10^3/uL (0.0-0.7); EOS % 1 % (0-3); HEMATOCRIT 31.8 % (36.0-47.0); HEMOGLOBIN 10.7 g/dL (12.0-15.5); LYMPH # 2.8 x10^3/uL (1.0-4.8); LYMPH % 37 % (24-48); MEAN CORPUSCULAR HEMOGLOBIN 30 pg (25-35); MEAN CORPUSCULAR HGB CONC 34 g/dL (31-37); MEAN CORPUSCULAR VOLUME 89 fL (79-100); MONO % 12 % (0-9); NEUT # 3.8 x10^3uL (1.8-7.7); NEUT % 50 % (31-73); PLATELET COUNT 300 x10^3/uL (140-400); RED BLOOD COUNT 3.57 x10^6/uL (3.50-5.40); RED CELL DISTRIBUTION WIDTH 14.6 % (11.5-14.5); WHITE BLOOD COUNT 7.7 x10^3/uL (4.0-11.0)
[2017-03-09 06:21] LABS: ALBUMIN 2.6 g/dL (3.4-5.0); ALBUMIN/GLOBULIN RATIO 0.8 (1.0-1.7); CALCIUM 7.9 mg/dL (8.5-10.1); CREATININE 0.8 mg/dL (0.6-1.0); GFR 87.4; POTASSIUM 3.5 mmol/L (3.5-5.1); TOTAL BILIRUBIN 0.2 mg/dL (0.2-1.0); TOTAL PROTEIN 5.9 g/dL (6.4-8.2)
[2017-03-09 07:44] LABS: POTASSIUM ISTAT 4.3 mmol/L (3.5-5.0)
[2017-03-09] MEDS: PANTOPRAZOLE 40 MG TABLET. PO SCH (07:54)
[2017-03-09] MEDS: METOCLOPRAMIDE 10 MG TABLET PO SCH ×4 (07:54→21:00)
--- NOTE | 2017-03-09 08:01 | NUR ---
IP: patient has hx of MRSA + nasal screen, requires contact precautions until 2 negative results 7 days apart. Has one negative from last visit.
[2017-03-09] MEDS: MUPIROCIN 2% TOPICAL OINTMENT 22GM TUBE. TP SCH ×2 (08:46→21:00)
[2017-03-09] MEDS: MAGNESIUM OXIDE 400 MG TABLET PO SCH ×3 (08:48→21:00)
[2017-03-09] MEDS: ESCITALOPRAM 5 MG TABLET PO SCH (08:48)
[2017-03-09] MEDS: INSULIN DETEMIR 300 UNITS/3 ML INSULN.PEN. SQ SCH ×2 (09:00→21:16)
[2017-03-09 10:07] VITALS: BP 124/89
[2017-03-09] MEDS: ONDANSETRON PF 4 MG/2 ML VIAL. IV PRN ×2 (10:43→21:52)
[2017-03-09 11:26] VITALS: BP 124/89
--- NOTE | 2017-03-09 11:39 | HP ---
ADMIT DATE: 03/09/2017 REASON FOR ADMISSION: Diabetic ketoacidosis, dehydration, nausea and vomiting. HISTORY OF PRESENT ILLNESS: This is a 26-year-old with poorly controlled type 1 diabetes. She was just discharged from [facility] on 03/06/2017 after a 4-day stay after having a pneumothorax from a central line attempt in the [place] [facility]. She did have a chest tube, which has subsequently been removed. She presented to the Emergency Room complaining of nausea and vomiting. The patient stated the evening of her discharge her glucose was 500 and escalated from there. PAST MEDICAL HISTORY: 1. Poorly controlled type 1 diabetes. 2. Multiple numerous admissions for DKA. 3. Methamphetamine abuse. 4. Tobacco use. 5. Adjustment disorder. 6. Gastroparesis. 7. Chronic hypomagnesemia. 8. Normochromic normocytic anemia. 9. MRSA, but current MRSA test is negative at [place]. MEDICATIONS: Lexapro 5 mg daily, Protonix 40 mg a day, Reglan 10 mg 4 times a day, magnesium oxide 400 mg 3 times a day, NovoLog supplemental scale, NovoLog 14 units 4 times a day. She is supposed to be on a long-acting Levemir 14 units b.i.d. SOCIAL HISTORY: The patient sporadically smoke cigarettes. She smokes methamphetamine, states never has used IV. She sporadically uses the methamphetamine. She disappears from her mother's house for weeks at a time and her mother does not know whether she there or that she is in the hospital. She does not work and has been unable to get on disability or Medicaid. REVIEW OF SYSTEMS: As per HPI. OBJECTIVE: VITAL SIGNS: Blood pressure 124/89, pulse 118, respirations 18, pulse ox 97% on room air, temperature 98.4. GENERAL: She sat up in bed. She is alert and appropriate. HEENT: Eyes were clear. Nose was patent. Throat was clear. Tongue was moist now. NECK: Supple. LUNGS: Clear. CHEST: The area on the right mid ribs where the chest tube was in place has some drainage, but does not appear to be infected and culture was done. CARDIOVASCULAR: Regular rhythm and rate. ABDOMEN: Soft, nontender. EXTREMITIES: Without edema. LABORATORY DATA: She had positive urine ketones. Her lactic acid initially was 2.1, magnesium was 1.6. Her CO2 was 19. Her glucose was 282. Albumin was 2.6. ASSESSMENT: 1. Moderate protein malnutrition with admission albumin is 3.1. 2. Mild diabetic ketoacidosis. 3. Dehydration. 4. Nausea and vomiting. 5. Status post chest tube placement for moderate right pneumothorax. 6. Gastroparesis. 7. Methamphetamine abuse. PLAN: IV fluids, insulin magnesium. BARRY MORELAND DO DR: DONNA/regina JOB#: [id number] / [id number]
[2017-03-09] MEDS: PROMETHAZINE 12.5 MG in IV NORMAL SALINE 50ML 50 ML IV PRN ×2 (12:34→19:13)
[2017-03-09 14:33] VITALS: BP 162/94
[2017-03-09] MEDS: KETOROLAC 15 MG/ML VIAL. IV PRN ×2 (14:36→20:44)
[2017-03-09 18:20] VITALS: BP 147/90
[2017-03-09] MEDS ORDERED: IV NORMAL SALINE 50ML 50 ML ONE (21:23)
[2017-03-09] MEDS ORDERED: PROMETHAZINE 25 MG/ML VIAL IV ONE (21:23)
[2017-03-09 23:16] VITALS: BP 130/66
[2017-03-10] MEDS: PROMETHAZINE 12.5 MG in IV NORMAL SALINE 50ML 50 ML IV PRN (04:45)
[2017-03-10 05:07] VITALS: BP 140/89
[2017-03-10] MEDS: ONDANSETRON PF 4 MG/2 ML VIAL. IV PRN ×2 (05:39→17:11)
[2017-03-10] MEDS: METOCLOPRAMIDE 10 MG TABLET PO SCH (07:30)
[2017-03-10] MEDS: INSULIN ASPART 300 UNITS/3 ML INSULN.PEN SQ SCH ×8 (07:30→21:00)
[2017-03-10] MEDS: PANTOPRAZOLE 40 MG TABLET. PO SCH (07:30)
--- NOTE | 2017-03-10 08:27 | NUR ---
IP: patient has had two negative nasal screenings, no longer requires contact precautions.
[2017-03-10] MEDS ORDERED: PROCHLORPERAZINE 25 MG SUPP.RECT. PR PRN (08:30)
[2017-03-10] MEDS ORDERED: PANTOPRAZOLE IV PUSH 40 MG VIAL. IVP SCH (08:30)
[2017-03-10] MEDS: MUPIROCIN 2% TOPICAL OINTMENT 22GM TUBE. TP SCH ×2 (09:00→21:00)
[2017-03-10] MEDS: INSULIN DETEMIR 300 UNITS/3 ML INSULN.PEN. SQ SCH ×3 (09:00→21:00)
[2017-03-10] MEDS ORDERED: MVI, ADULT NO.4 WITH VIT K 10 ML, FOLIC ACID 1 MG, THIAMINE 100 MG in IV NORMAL SALINE ... IV ONE ×4 (09:00)
[2017-03-10] MEDS: ESCITALOPRAM 5 MG TABLET PO SCH (09:46)
[2017-03-10] MEDS: MAGNESIUM OXIDE 400 MG TABLET PO SCH ×4 (09:46→21:00)
[2017-03-10] MEDS: PANTOPRAZOLE IV PUSH 40 MG VIAL. IVP SCH (09:52)
[2017-03-10 10:12] VITALS: BP 131/88
[2017-03-10] MEDS ORDERED: DIPHENHYDRAMINE 50 MG/ML VIAL IVP PRN (10:45)
--- NOTE | 2017-03-10 10:52 | NUR ---
Pt A&Ox4, calm and cooperative, pt has c/o severe nausea all morning, pt given Compazine supp and banana bag as ordered, pt states that compazine supp did help some, will continue to monitor this pt
[2017-03-10] MEDS: METOCLOPRAMIDE HCL 10 MG/2 ML VIAL. IV SCH ×2 (10:59→18:00)
[2017-03-10] MEDS ORDERED: METOCLOPRAMIDE HCL 10 MG/2 ML VIAL. IV SCH (11:30)
[2017-03-10 13:25] LABS: BASO % 0 % (0-3); EOS % 1 % (0-3); HEMATOCRIT 34.4 % (36.0-47.0); HEMOGLOBIN 11.4 g/dL (12.0-15.5); LYMPH % 44 % (24-48); MEAN CORPUSCULAR HEMOGLOBIN 29 pg (25-35); MEAN CORPUSCULAR HGB CONC 33 g/dL (31-37); MEAN CORPUSCULAR VOLUME 88 fL (79-100); MONO # 0.7 x10^3/uL (0.0-1.1); MONO % 15 % (0-9); NEUT # 1.8 x10^3uL (1.8-7.7); NEUT % 40 % (31-73); PLATELET COUNT 324 x10^3/uL (140-400); RED BLOOD COUNT 3.92 x10^6/uL (3.50-5.40); RED CELL DISTRIBUTION WIDTH 14.3 % (11.5-14.5); WHITE BLOOD COUNT 4.6 x10^3/uL (4.0-11.0)
[2017-03-10 13:40] LABS: ALBUMIN 3.1 g/dL (3.4-5.0); CALCIUM 8.6 mg/dL (8.5-10.1); CREATININE 0.5 mg/dL (0.6-1.0); GFR 150.3; MAGNESIUM 1.8 mg/dL (1.8-2.4); POTASSIUM 3.8 mmol/L (3.5-5.1); TOTAL BILIRUBIN 0.4 mg/dL (0.2-1.0); TOTAL PROTEIN 6.3 g/dL (6.4-8.2)
[2017-03-10 14:35] VITALS: BP 136/89
[2017-03-10] MEDS: IV NORMAL SALINE 1,000ML 1,000 ML IV SCH (18:10)
[2017-03-10 18:12] VITALS: BP 134/88
[2017-03-10] MEDS: KETOROLAC 15 MG/ML VIAL. IV PRN (19:44)
--- NOTE | 2017-03-10 20:50 | PN ---
DATE: 03/10/2017 PROBLEMS: 1. DKA. 2. Poorly controlled type 1 diabetes. 3. Persistent nausea and vomiting. 4. Methamphetamine abuse. 5. Tobacco use. 6. Adjustment disorder. 7. Gastroparesis. 8. Chronic hypomagnesemia. 9. Recent pneumothorax with chest tube placement, chest tube now out. 10. Normochromic normocytic anemia. SUBJECTIVE: She states she is not better today. Her glucoses are good, but she has had persistent nausea and vomiting, has not been able to eat. Her glucoses have been running in the 100s, which is considerably lower than what they run for her at home. OBJECTIVE: VITAL SIGNS: Blood pressure 131/88, pulse 86, respirations 20, temperature 98.4 and pulse ox 97% on room air. GENERAL: She appears well hydrated. HEENT: Her tongue was moist. NECK: Supple. LUNGS: Clear. CARDIOVASCULAR: Regular rhythm and rate. No longer tachycardic. ABDOMEN: Soft. There is mild midepigastric tenderness. EXTREMITIES: Without edema. LABORATORY DATA: Pending. ASSESSMENT: Persistent nausea. PLAN: Continue with IV fluids, give her banana bag, try some different antiemetics and wait for her labs. BARRY MORELAND DO DR: DONNA/regina JOB#: [id number] / [id number]
[2017-03-10 23:10] VITALS: BP 130/86
[2017-03-11] MEDS: METOCLOPRAMIDE HCL 10 MG/2 ML VIAL. IV SCH ×5 (00:30→23:46)
[2017-03-11] MEDS: IV NORMAL SALINE 1,000ML 1,000 ML IV SCH ×4 (00:34→19:55)
[2017-03-11] MEDS: ONDANSETRON PF 4 MG/2 ML VIAL. IV PRN ×2 (01:17→11:52)
[2017-03-11 05:18] VITALS: BP 124/82
[2017-03-11] MEDS: INSULIN ASPART 300 UNITS/3 ML INSULN.PEN SQ SCH ×8 (07:34→21:31)
[2017-03-11] MEDS: PANTOPRAZOLE IV PUSH 40 MG VIAL. IVP SCH (07:42)
[2017-03-11] MEDS: MUPIROCIN 2% TOPICAL OINTMENT 22GM TUBE. TP SCH ×2 (08:45→20:58)
[2017-03-11] MEDS: ESCITALOPRAM 5 MG TABLET PO SCH (09:00)
[2017-03-11] MEDS: MAGNESIUM OXIDE 400 MG TABLET PO SCH ×3 (09:00→20:58)
[2017-03-11] MEDS: INSULIN DETEMIR 300 UNITS/3 ML INSULN.PEN. SQ SCH ×2 (10:04→21:30)
[2017-03-11 11:33] VITALS: BP 142/91
[2017-03-11] MEDS: SUCRALFATE 1 GM/10 ML ORAL.SUSP. PO SCH ×3 (11:51→21:00)
[2017-03-11] MEDS ORDERED: MVI, ADULT NO.4 WITH VIT K 10 ML, FOLIC ACID SYRINGE for ER 1 MG, THIAMINE 100 MG in IV... IV ONE ×4 (13:00)
[2017-03-11] MEDS ORDERED: DEXAMETHASONE SOD PHOS 4 MG/ML VIAL IV ONE (13:15)
[2017-03-11] MEDS ORDERED: PYRIDOXINE 100 MG/ML VIAL. IV ONE (13:15)
--- NOTE | 2017-03-11 14:22 | PN ---
DATE: 03/11/2017 PROBLEMS: Include: 1. Nausea and vomiting. 2. DKA, which is resolved. 3. Poorly controlled type 1 diabetes. 4. Methamphetamine abuse. 5. Tobacco use. 6. Adjustment disorder . 7. Gastroparesis. 8. Chronic hypomagnesemia. 9. Normochromic normocytic anemia. 10. Mild protein malnutrition. SUBJECTIVE: A 26-year-old who was admitted and mild DKA, which resolved very easily with DKA protocol. She did not even require an insulin drip. However, yesterday she was unable to discharge due to persistent nausea and dry heaves. She was unable to eat and so continued with IV fluids. The Reglan was switched to IV, which has helped some. She does have a history of gastritis from EED with several admissions ago. OBJECTIVE: VITAL SIGNS: Blood pressure 124/82, pulse 83, respirations 18, temperature 98.3, pulse ox is 96% on room air. GENERAL: Color is better. HEENT: Her tongue is moist. NECK: Supple. LUNGS: Clear. CARDIOVASCULAR: Regular rhythm and rate. ABDOMEN: Soft, midepigastric tenderness. EXTREMITIES: Without edema. LABORATORY DATA: The glucoses mostly have been in the 130s. She did have a 56 last night. PLAN: Premedicate before eating try. To advance her diet today. Get her in the shower, ambulate in the schreiber and try to discharge later on today and we will give her some Carafate as well. BARRY MORELAND DO DR: DONNA/regina JOB#: [id number] / [id number]
[2017-03-11 14:58] VITALS: BP 154/96
--- NOTE | 2017-03-11 17:13 | NUR ---
Nursing Note: Scheduled Novolog doses held d/t patient's blood sugar not high enough. Patient has history of blood sugar dropping too low. Sliding scale Novolog doses administered as ordered. Normal saline held this afternoon d/t banana bag ordered.
[2017-03-11 18:52] VITALS: BP 145/94
[2017-03-11] MEDS ORDERED: FAMOTIDINE 20 MG/2 ML VIAL IVP SCH (21:00)
[2017-03-12] MEDS: IV NORMAL SALINE 1,000ML 1,000 ML IV SCH (02:10)
[2017-03-12 04:49] VITALS: BP 131/84
[2017-03-12] MEDS: METOCLOPRAMIDE HCL 10 MG/2 ML VIAL. IV SCH (05:55)
[2017-03-12] MEDS: SUCRALFATE 1 GM/10 ML ORAL.SUSP. PO SCH (07:30)
[2017-03-12] MEDS: PANTOPRAZOLE IV PUSH 40 MG VIAL. IVP SCH (07:30)
[2017-03-12] MEDS: MAGNESIUM OXIDE 400 MG TABLET PO SCH (08:01)
[2017-03-12] MEDS: ESCITALOPRAM 5 MG TABLET PO SCH (08:01)
[2017-03-12] MEDS: INSULIN ASPART 300 UNITS/3 ML INSULN.PEN SQ SCH ×2 (08:11→08:54)
[2017-03-12] MEDS: INSULIN DETEMIR 300 UNITS/3 ML INSULN.PEN. SQ SCH (08:11)
[2017-03-12] MEDS: MUPIROCIN 2% TOPICAL OINTMENT 22GM TUBE. TP SCH (08:55)
[2017-03-12] MEDS ORDERED: PANT40TA5 PO (09:04)
--- NOTE | 2017-03-12 13:31 | DS ---
DATE OF DISCHARGE: 03/12/2017 DISCHARGE DIAGNOSES: 1. Diabetic ketoacidosis, resolved. 2. Dehydration, resolved. 3. Prolonged nausea and vomiting unrelated to diabetic ketoacidosis. 4. Poorly controlled type 1 diabetes. 5. Methamphetamine abuse. 6. Tobacco use. 7. Adjustment disorder. 8. Severe gastroparesis. 9. Chronic hypomagnesemia. 10. Normochromic normocytic anemia. 11. Mild protein malnutrition. 12. Status post chest tube placement for pneumothorax on 03/02/2017. Chest tube is now out, small wound there. HOSPITAL COURSE: The patient is a 26-year-old female who was discharged from [facility] on 03/02/2017 after having a chest tube placement for pneumothorax after central line attempt. She received some morphine prior to discharge. She started throwing up on the way home, wound up at [facility] and was admitted and was in mild DKA. She was treated with insulin and IV fluids. The DKA resolved; however, she continued to have intractable nausea and vomiting for an additional 24 hours. This resolved late on Monday night. She was anxious to go home today. Noted that she has been clean of methamphetamine for at least 3 weeks. I again spent a lot of time with her talking about her condition as well as discussing her condition with her mother there. PHYSICAL EXAMINATION: VITAL SIGNS: Blood pressure 131/84, pulse 69, respirations 16, pulse ox is 99% on room air. GENERAL: Color much improved. HEENT: Tongue is moist. NECK: Supple. LUNGS: Clear. CARDIOVASCULAR: Regular rhythm and rate. ABDOMEN: Soft, minimal midepigastric tenderness. LABORATORY DATA: Glucoses in the high 100s to low 200s. Urine culture is negative. PLAN: Discharge home. Continue Protonix. Do not take the hydrocodone unless she has something to eat, small frequent meals. Follow up with Dr. Teague as scheduled. BARRY MORELAND DO DR: DONNA/regina JOB#: [id number] / [id number]
== END 2017-03-12 09:47 | disposition home or self-care (01) | DRG 74 ==
LOC: ER 13:11 → 1 SOUTH 16:57
PROVIDERS: ADMIT Family Medicine; ATTEND Family Medicine
DX: E10.43 Type 1 diabetes mellitus with diabetic autonomic (poly)neuropathy (principal); E44.0 Moderate protein-calorie malnutrition; N39.0 Urinary tract infection, site not specified; E10.10 Type 1 diabetes mellitus with ketoacidosis without coma; E86.0 Dehydration; D64.9 Anemia, unspecified; E83.42 Hypomagnesemia; F17.210 Nicotine dependence, cigarettes, uncomplicated; F43.20 Adjustment disorder, unspecified; K31.84 Gastroparesis; F15.10 Other stimulant abuse, uncomplicated; Z88.1 Allergy status to other antibiotic agents; Z91.19 Patient's noncompliance with other medical treatment and regimen; Z88.8 Allergy status to other drugs, medicaments and biological substances; Z68.21 Body mass index [BMI] 21.0-21.9, adult
CPT/HCPCS: 36415; 71010; 80047; 80053; 80076; 81001; 81002; 82947; 83605; 83735; 85027; 87040; 87070; 87086; 93005; 96372; 96374; 96375; C9113; G0481; J0696; J1100; J1815; J1885; J2405; J2550; J2765; J3415; J3475; J8597; Q0162; S0028; 99285-25; J7030

== ENCOUNTER 2017-03-13 04:41 | Emergency (ER) | payer BC ==
[~2017-03-13] VITALS: Ht 170.2 cm; Wt 61.4 kg
[~2017-03-13 04:41] MED LIST changes: +HYDR-2666 PO
--- NOTE | 2017-03-13 04:52 | ED.ADGEN ---
Past History Past Medical History: Depression, Diabetes, Other Additional Past Medical Histor: pt reports several admissions for "high blood sugar" Past Surgical History: No Surgical History Smoking: Less than 1pk/day Alcohol Use: None Drug Use: Marijuana, Methamphetamine, Opiates, Other Adult General Chief Complaint Chief Complaint ".. It same thing.... I just got out.... and now I am puking all the time... dry heaves..." HPI HPI Patient is a 26 year old female who presents with above hx and complaints of constant dry heaves tonight. Pt. is known to the emergency department staff for frequent evaluations of hyperglycemia and intractable vomiting because of DKA. Patient normally follows with Dr. Temple. Pt. follows with Dr. Roberto at [facility], who she has been trying to get placement of insulin pump placement. .Glucose checks at home were over 400. .Pt. currently rates her pain 100/10. Review of Systems Review of Systems Constitutional: Denies fever or chills [] Eyes: Denies change in visual acuity, redness, or eye pain [] HENT: Denies nasal congestion or sore throat [] Respiratory: Denies cough or shortness of breath [] Cardiovascular: No additional information not addressed in HPI [] GI: complaints of severe epigastric abdominal pain, nausea, vomiting, bloody stools or diarrhea [] : Denies dysuria or hematuria [] Musculoskeletal: Denies back pain or joint pain [] Integument: Denies rash or skin lesions [] Neurologic: Denies headache, focal weakness or sensory changes [] Endocrine: Denies polyuria or polydipsia [] Family History Family History DM Current Medications Current Medications Current Medications Medications (Trade) Dose Ordered Sig/Chevy Start Time Stop Time Status Last Admin Dose Admin Insulin Human Regular (Novolin R) 100 unit STK-MED ONCE 03/13/17 05:12 03/13/17 05:13 DC Insulin Human Regular/Sodium Chloride (Novolin R/Iv Normal Saline 150ml) 151.5 ml @ 0 mls/hr 1X ONCE 03/13/17 05:00 03/13/17 05:01 DC 03/13/17 05:36 5 MLS/HR Morphine Sulfate 10 mg 10 mg 1X ONCE 03/13/17 05:00 03/13/17 05:01 DC 03/13/17 05:45 10 MG Ondansetron HCl 8 mg 8 mg 1X ONCE 03/13/17 05:00 03/13/17 05:01 DC 03/13/17 05:00 8 MG Sodium Chloride (Iv Normal Saline 150ml) 150 ml @ As Directed STK-MED ONCE 03/13/17 05:11 03/13/17 05:12 DC Sodium Chloride (Iv Sodium Chloride 0.9% 1,000ml) 1,000 ml @ 1,000 mls/hr Q1H 03/13/17 05:00 03/13/17 05:59 DC 03/13/17 05:00 1,000 MLS/HR Allergies Allergies Allergies Coded Allergies Type Severity Reaction Last Updated Verified acetaminophen Allergy Intermediate HIVES 11/27/16 Yes adhesive tape Allergy Intermediate 11/27/16 Yes Physical Exam Physical Exam Constitutional: in acute distress, non-toxic appearance. [] HENT: Normocephalic, atraumatic, bilateral external ears normal, oropharynx dry , no oral exudates, nose normal. [] Eyes: PERRLA, EOMI, conjunctiva normal, no discharge. [] Neck: Normal range of motion, no tenderness, supple, no stridor. [] Cardiovascular:Tachycardia Heart rate regular rhythm, no murmur [] Lungs & Thorax: Bilateral breath sounds equal at apexes with scattered wheezes on auscultation []Chest tube scar on lt. Abdomen: Bowel sounds decreased, soft, epigastric tenderness, no masses, no pulsatile masses. Refuses rectal at this time. Skin: Warm, dry, no erythema, no rash. Tattoos. Back: No tenderness, no CVA tenderness. [] Extremities: No tenderness, no cyanosis, no clubbing, ROM intact, no edema. [] Scar lt. shoulder upper chest- site of port infection. No psoas or heel tap. Neurologic: Alert and oriented X 3, normal motor function, normal sensory function, no focal deficits noted. [] Psychologic: Affect anxious,, judgement poor insight, mood depressed. Current Patient Data Vital Signs Vital Signs Date Time Temp Pulse Resp B/P Pulse Ox O2 Delivery O2 Flow Rate FiO2 03/13/17 05:43 63 16 149/90 98 Room Air 03/13/17 04:41 97.8 Lab Results Laboratory Tests Test 03/13/17 04:55 03/13/17 05:02 White Blood Count 6.5x10^3/uL (4.0-11.0) Red Blood Count 4.05x10^6/uL (3.50-5.40) Hemoglobin 11.6g/dL (12.0-15.5) L Hematocrit 35.7% (36.0-47.0) L Mean Corpuscular Volume 88fL (79-100) Mean Corpuscular Hemoglobin 29pg (25-35) Mean Corpuscular Hemoglobin Concent 33g/dL (31-37) Red Cell Distribution Width 14.4% (11.5-14.5) Platelet Count 322x10^3/uL (140-400) Neutrophils (%) (Auto) 35% (31-73) Lymphocytes (%) (Auto) 51% (24-48) H Monocytes (%) (Auto) 13% (0-9) H Eosinophils (%) (Auto) 1% (0-3) Basophils (%) (Auto) 1% (0-3) Neutrophils # (Auto) 2.3x10^3uL (1.8-7.7) Lymphocytes # (Auto) 3.3x10^3/uL (1.0-4.8) Monocytes # (Auto) 0.8x10^3/uL (0.0-1.1) Eosinophils # (Auto) 0.1x10^3/uL (0.0-0.7) Basophils # (Auto) 0.1x10^3/uL (0.0-0.2) Sodium Level 138mmol/L (136-145) Potassium Level 3.2mmol/L (3.5-5.1) L Chloride Level 98mmol/L (98-107) Carbon Dioxide Level 29mmol/L (21-32) Anion Gap 11 (6-14) 15mmol/L (6-14) H Blood Urea Nitrogen 9mg/dL (7-20) Creatinine 0.5mg/dL (0.6-1.0) L Estimated GFR (Cockcroft-Gault) 150.3 Glucose Level 324mg/dL (70-99) H 321mg/dL (60-99) H Calcium Level 8.5mg/dL (8.5-10.1) Magnesium Level 1.6mg/dL (1.8-2.4) L Total Bilirubin 0.4mg/dL (0.2-1.0) Direct Bilirubin 0.1mg/dL (0.0-0.2) Aspartate Amino Transferase (AST) 26U/L (15-37) Alanine Aminotransferase (ALT) 31U/L (14-59) Alkaline Phosphatase 90U/L (46-116) Troponin I Quantitative < 0.017ng/mL (0-0.055) Total Protein 6.5g/dL (6.4-8.2) Albumin 3.1g/dL (3.4-5.0) L Amylase Level 13U/L (25-115) L Lipase 40U/L (73-393) L Serum Test, Qualitative Negative (NEG) POC Hemoglobin 11.9gm/dL POC Hematocrit 35% POC Sodium 135mmol/L (135-145) POC Potassium 3.8mmol/L (3.5-5.0) POC Chloride 94mmol/L (98-110) L POC Total CO2 31mmol/L (23-32) POC Blood Urea Nitrogen 9mg/dL (8-26) POC Creatinine 0.4mg/dL (0.5-1.4) L POC Ionized Calcium (Angelique) 1.11mmol/L (1.13-1.32) L EKG EKG [] Radiology/Procedures Radiology/Procedures My interpretation of Acute Abd. shows no free air under diaphragm. Increased stool. [] Course & Med Decision Making Course & Med Decision Making Pertinent Labs and Imaging studies reviewed. (See chart for details). Discussed presentation,testing and tx. plan with Dr. Grigsby. Advised she must be transfer to [facility] and get GI consult and possible EGD. Discussed presentation , testing and tx. plan with Dr. Jennifer VALDES. Advised she would accept pt in transfer. [] Final Impression Final Impression 1. Hx. of DKA 2. Hyperglycemia -DM 3. Nausea and vomiting 4. Epigastric pain [] 5. Hx. of Polysubstance abuse, Tob, Marijuana and Meth. 6. Hx. of Gastroparesis Problems: Dragon Disclaimer Dragon Disclaimer This electronic medical record was generated, in whole or in part, using a voice recognition dictation system. YELENA HENRY MD Mar 13, 2017 04:52
[2017-03-13] MEDS ORDERED: MORPHINE SULFATE 10 MG/ML SYRINGE. SQ ONE (05:00)
[2017-03-13] MEDS ORDERED: INSULIN REGULAR 150 UNIT in 0.9 % SODIUM CHLORIDE 150ML 150 ML IV ONE (05:00)
[2017-03-13] MEDS ORDERED: ONDANSETRON PF 4 MG/2 ML VIAL. IV ONE (05:00)
[2017-03-13] MEDS ORDERED: IV NORMAL SALINE 1,000ML 1,000 ML IV SCH (05:00)
[2017-03-13 05:05] LABS: HEMOGLOBIN ISTAT 11.9 gm/dL; POTASSIUM ISTAT 3.8 mmol/L (3.5-5.0)
[2017-03-13] MEDS ORDERED: 0.9 % SODIUM CHLORIDE 150ML 150 ML ONE (05:11)
[2017-03-13] MEDS ORDERED: INSULIN REGULAR 100 UNIT/ML 10ML VIAL. ONE (05:12)
[2017-03-13 05:14] LABS: BASO # 0.1 x10^3/uL (0.0-0.2); BASO % 1 % (0-3); EOS # 0.1 x10^3/uL (0.0-0.7); EOS % 1 % (0-3); HEMATOCRIT 35.7 % (36.0-47.0); HEMOGLOBIN 11.6 g/dL (12.0-15.5); LYMPH # 3.3 x10^3/uL (1.0-4.8); LYMPH % 51 % (24-48); MEAN CORPUSCULAR HEMOGLOBIN 29 pg (25-35); MEAN CORPUSCULAR HGB CONC 33 g/dL (31-37); MEAN CORPUSCULAR VOLUME 88 fL (79-100); MONO # 0.8 x10^3/uL (0.0-1.1); MONO % 13 % (0-9); NEUT # 2.3 x10^3uL (1.8-7.7); NEUT % 35 % (31-73); PLATELET COUNT 322 x10^3/uL (140-400); RED BLOOD COUNT 4.05 x10^6/uL (3.50-5.40); RED CELL DISTRIBUTION WIDTH 14.4 % (11.5-14.5); WHITE BLOOD COUNT 6.5 x10^3/uL (4.0-11.0)
[2017-03-13 05:25] LABS: ALBUMIN 3.1 g/dL (3.4-5.0); CALCIUM 8.5 mg/dL (8.5-10.1); CREATININE 0.5 mg/dL (0.6-1.0); DIRECT BILIRUBIN 0.1 mg/dL (0.0-0.2); GFR 150.3; MAGNESIUM 1.6 mg/dL (1.8-2.4); POTASSIUM 3.2 mmol/L (3.5-5.1); TOTAL BILIRUBIN 0.4 mg/dL (0.2-1.0); TOTAL PROTEIN 6.5 g/dL (6.4-8.2)
[2017-03-13 05:29] LABS: PREG TEST PT QUAL NEGATIVE (NEG)
[2017-03-13 05:43] VITALS: BP 149/90
--- NOTE | 2017-03-13 07:15 | RAD ---
Acute abdomen series with chest, 3 views, 03/13/2017: History: Abdominal pain, nausea and vomiting. There is a moderate amount of stool scattered throughout the colon. The abdominal gas pattern is otherwise unremarkable. No free air is seen in the abdomen. There is no evidence of organomegaly. There is an unchanged right lower quadrant calcification compatible with a phlebolith. There is a transitional type vertebra at the lumbosacral junction. The heart size and pulmonary vascularity are normal. The lungs are clear. IMPRESSION: No acute abdominal abnormality is detected.
== END 2017-03-13 05:55 | disposition short-term general hospital (02) ==
LOC: ER 04:47
DX: R10.13 Epigastric pain (principal); R11.2 Nausea with vomiting, unspecified; E13.10 Other specified diabetes mellitus with ketoacidosis without coma; E11.65 Type 2 diabetes mellitus with hyperglycemia; F12.10 Cannabis abuse, uncomplicated; F15.10 Other stimulant abuse, uncomplicated; F17.200 Nicotine dependence, unspecified, uncomplicated; Z88.6 Allergy status to analgesic agent; Z88.8 Allergy status to other drugs, medicaments and biological substances
CPT/HCPCS: 36415; 74022; 80047; 80048; 80076; 82150; 83690; 83735; 84484; 84703; 85027; 96361; 96365; 96372; 96375; 99285; J1815; J2270; J2405; J7030

== ENCOUNTER 2017-03-17 21:30 | Inpatient (IN) | payer BC ==
[~2017-03-17] VITALS: Ht 170.2 cm; Wt 58.3 kg
[~2017-03-17 21:30] MED LIST changes: +CLIN300C8 PO; -CLIN300C86 PO; -HYDR-2666 PO; +HYDR-2758 PO; -INSU100V10 IJ; +INSU100V11 IJ; +OXYC5CAP PO; -OXYC5CAP3 PO
[2017-03-17] MEDS ORDERED: PROMETHAZINE 25 MG/ML VIAL IV ONE (22:00)
[2017-03-17] MEDS ORDERED: FAMOTIDINE 20 MG/2 ML VIAL ONE (22:00)
[2017-03-17] MEDS ORDERED: IV NORMAL SALINE 50 ML BAG ONE (22:00)
[2017-03-17] MEDS ORDERED: INSULIN REGULAR 100 UNIT/ML 10ML VIAL. ONE (22:00)
[2017-03-17] MEDS ORDERED: fentaNYL PF 100 MCG/2 ML VIAL ONE (22:00)
--- NOTE | 2017-03-18 01:47 | NUR ---
The patient, CHALO RAYMUNDO, 26 y/o, F admitted by ANAYELI FOSS MD, was given written information regarding hospital policies, unit procedures and contact persons. Valuables were checked and logged. Call light in place. Will continue to monitor.
[2017-03-18] MEDS ORDERED: DEXTROSE 50% 25 GM / 50ML DISP.SYRIN. IV PRN (02:30)
[2017-03-18 02:36] VITALS: BP 128/81
[2017-03-18] MEDS: MORPHINE SULFATE 2 MG/ML DISP.SYRIN. IV PRN ×5 (02:37→19:54)
[2017-03-18] MEDS: IV NORMAL SALINE 1,000ML 1,000 ML IV SCH ×4 (02:38→16:03)
[2017-03-18] MEDS: ONDANSETRON PF 4 MG/2 ML VIAL. IV PRN ×2 (02:38→07:48)
[2017-03-18 02:49] LABS: BASO % 1 % (0-3); EOS % 1 % (0-3); HEMATOCRIT 39.6 % (36.0-47.0); LYMPH # 3.8 x10^3/uL (1.0-4.8); LYMPH % 42 % (24-48); MEAN CORPUSCULAR HEMOGLOBIN 29 pg (25-35); MEAN CORPUSCULAR HGB CONC 33 g/dL (31-37); MEAN CORPUSCULAR VOLUME 88 fL (79-100); MONO % 9 % (0-9); NEUT # 4.2 x10^3uL (1.8-7.7); NEUT % 46 % (31-73); PLATELET COUNT 427 x10^3/uL (140-400); RED CELL DISTRIBUTION WIDTH 14.7 % (11.5-14.5); WHITE BLOOD COUNT 9.1 x10^3/uL (4.0-11.0)
[2017-03-18 02:50] LABS: BASO # 0.1 x10^3/uL (0.0-0.2); EOS # 0.1 x10^3/uL (0.0-0.7); MONO # 0.8 x10^3/uL (0.0-1.1)
[2017-03-18 02:52] LABS: ALBUMIN 4.2 g/dL (3.4-5.0); CALCIUM 9.6 mg/dL (8.5-10.1); CREATININE 0.8 mg/dL (0.6-1.0); GFR 87.4; TOTAL BILIRUBIN 0.7 mg/dL (0.2-1.0); TOTAL PROTEIN 8.4 g/dL (6.4-8.2)
[2017-03-18 02:53] LABS: POTASSIUM 4.2 mmol/L (3.5-5.1)
[2017-03-18 02:57] LABS: BACTERIA,URINE 0 /HPF (0-FEW); BILIRUBIN,URINE NEG (NEG); CLARITY,URINE CLEAR; COLOR,URINE YELLOW; GLUCOSE,URINE 500 mg/dL (NEG); NITRITE,URINE NEG (NEG); RBC,URINE 0 /HPF (0-2); SQUAMOUS EPITHELIAL CELL,UR FEW /LPF; UROBILINOGEN,URINE 0.2 mg/dL (0.2 mg/dL); WBC,URINE OCC /HPF (0-4)
[2017-03-18 03:16] LABS: AMPHETAMINE/METHAMPHETAMINE POS (NEG); BARBITURATES NEG (NEG); BENZODIAZEPINES NEG (NEG); CANNABINOIDS NEG (NEG); COCAINE NEG (NEG); METHADONE NEG (NEG); OPIATES NEG (NEG); PHENCYCLIDINE NEG (NEG)
[2017-03-18] MEDS: INSULIN ASPART 300 UNITS/3 ML INSULN.PEN SQ SCH ×5 (03:34→20:00)
[2017-03-18 06:31] LABS: CALCIUM 7.7 mg/dL (8.5-10.1); CREATININE 0.7 mg/dL (0.6-1.0); POTASSIUM 4.3 mmol/L (3.5-5.1)
[2017-03-18 07:00] VITALS: BP 133/81
[2017-03-18 12:11] VITALS: BP 141/83
--- NOTE | 2017-03-18 15:19 | HP ---
ADMIT DATE: 03/18/2017 HISTORY OF PRESENT ILLNESS: The patient is a 26-year-old female patient with brittle type 1 diabetes, who yet again came to the Emergency Room with recurrent bouts of nausea, vomiting and abdominal pain. Lab work showed that she has hyperglycemia with blood sugar of 447. She has mild anion gap acidosis and was admitted, was started on IV fluid and continued on insulin sliding scale. She apparently continued to have nausea and vomiting and was kept nil by mouth initially. PAST MEDICAL HISTORY: Significant for brittle type 1 diabetes mellitus poorly controlled, multiple admissions and DKA, methamphetamine abuse, tobacco use, adjustment disorder, gastroparesis, normochromic normocytic anemia. PAST SURGICAL HISTORY: Significant for placement of a Port-A-Cath and removal, left axillary abscess, status post incision and drainage. ALLERGIES: She is apparently allergic to ACETAMINOPHEN and TAPE. MEDICATIONS: She is currently on Lexapro 5 mg once a day, Protonix 40 mg once a day, Reglan 10 mg 4 times a day, magnesium oxide 400 mg 3 times a day, NovoLog 14 units 4 times a day. She is supposed to be on long-acting Levemir 14 units twice a day. FAMILY HISTORY: Unremarkable. SOCIAL HISTORY: The patient continues to smoke cigarettes. She smokes methamphetamine. She apparently disappears from the mother house for weeks at a time and her mother does not know whether she is in the hospital or somewhere else. She does not work. She is unable get disability or Medicaid. REVIEW OF SYSTEMS: As per history of present illness with recurrent bouts of nausea, vomiting and abdominal pain, generalized aches and pains. OBJECTIVE: GENERAL: On arrival to the Emergency Room, she was slightly tachypneic, pale, but no jaundice, cyanosis, or thyromegaly. No jugular venous distension. No limb edema. VITAL SIGNS: Her heart rate was 106, blood pressure was 131/92, temperature was 97.9, respiratory rate was 28 and oxygen saturation was 95% on room air. HEAD, EYES, EARS, NOSE AND THROAT: Showed normocephalic, atraumatic. NECK: Supple. HEART: Showed normal first and second heart sounds with no gallop, rub or murmur. CHEST: Clear to auscultation. No crepitation or rhonchi. ABDOMEN: Distended, soft, nontender. No guarding or rigidity. No organomegaly. All hernial orifices intact. Bowel sounds normal. NEUROLOGIC: She was awake, alert, responding appropriately. Cranial nerves intact. EXTREMITIES: She moves extremities without difficulty. She ambulates without assistance or assistive devices. LABORATORY DATA: On admission showed a white cell count of 9100, hemoglobin 13, hematocrit 39, MCV 88 and platelet count of 427,000 with a manual differential showed 46% polymorphs, 22% lymphocytes and 9% monocytes. Her chemistry on admission showed a serum sodium 134, potassium 4.2, chloride 92, bicarbonate 25, anion gap of 17, BUN 24, creatinine 0.8, estimated GFR was 87 mL per minute. Her glucose was , lactic acid 1.5, calcium was 9.6. Total bilirubin, AST, ALT were normal. Alkaline phosphatase slightly elevated. Total protein was 8.4, albumin 4.2. Serum lipase was 44. Urinalysis showed the urine was yellow, clear with a pH of 5.5, specific gravity of 1.010. The urine was negative for protein. There was large amount of glucose, large amount of ketones. The urine was negative for blood, nitrite and leukocyte esterase were 0 rbc's, occasional wbc's, no bacteria. Her urine toxicology screen was positive for amphetamine, methamphetamine. ASSESSMENT AND PLAN: 1.In summary, this is a 26-year-old female patient, who yet again came with poorly controlled type 1 diabetes. She has very mild diabetic ketoacidosis. 2.Multiple numerous admissions before for the diabetic ketoacidosis. Her urine toxic screen was positive for methamphetamine. She has obviously adjustment disorder and gastroparesis, normochromic normocytic anemia. We will continue with IV fluids. Continue to monitor her blood sugar and continue with insulin as the insulin sliding scale. We will start her on a clear liquid diet for now and advance diet as tolerated. I will repeat her lab work tomorrow. ANAYELI FOSS MD DR: JOSÉ/regina JOB#: [id number] / [id number]
[2017-03-18 16:07] VITALS: BP 128/88
[2017-03-18 19:47] VITALS: BP 111/71
[2017-03-19] MEDS: MORPHINE SULFATE 2 MG/ML DISP.SYRIN. IV PRN ×7 (00:23→23:39)
[2017-03-19] MEDS: IV NORMAL SALINE 1,000ML 1,000 ML IV SCH ×6 (00:23→19:30)
[2017-03-19] MEDS: INSULIN ASPART 300 UNITS/3 ML INSULN.PEN SQ SCH ×7 (00:24→23:49)
[2017-03-19 05:21] VITALS: BP 154/97
[2017-03-19 05:58] LABS: BASO # 0.1 x10^3/uL (0.0-0.2); BASO % 2 % (0-3); EOS # 0.2 x10^3/uL (0.0-0.7); EOS % 3 % (0-3); HEMATOCRIT 32.2 % (36.0-47.0); HEMOGLOBIN 10.3 g/dL (12.0-15.5); LYMPH # 3.2 x10^3/uL (1.0-4.8); LYMPH % 54 % (24-48); MEAN CORPUSCULAR HEMOGLOBIN 29 pg (25-35); MEAN CORPUSCULAR HGB CONC 32 g/dL (31-37); MEAN CORPUSCULAR VOLUME 89 fL (79-100); MONO # 0.5 x10^3/uL (0.0-1.1); MONO % 9 % (0-9); NEUT # 1.9 x10^3uL (1.8-7.7); NEUT % 32 % (31-73); PLATELET COUNT 305 x10^3/uL (140-400); RED BLOOD COUNT 3.62 x10^6/uL (3.50-5.40); RED CELL DISTRIBUTION WIDTH 14.3 % (11.5-14.5); WHITE BLOOD COUNT 5.8 x10^3/uL (4.0-11.0)
[2017-03-19 06:12] LABS: ALBUMIN 2.9 g/dL (3.4-5.0); CALCIUM 8.2 mg/dL (8.5-10.1); CREATININE 0.6 mg/dL (0.6-1.0); GFR 121.8; MAGNESIUM 1.8 mg/dL (1.8-2.4); POTASSIUM 4.3 mmol/L (3.5-5.1); TOTAL BILIRUBIN 0.6 mg/dL (0.2-1.0); TOTAL PROTEIN 5.7 g/dL (6.4-8.2)
[2017-03-19] MEDS: ONDANSETRON PF 4 MG/2 ML VIAL. IV PRN ×2 (08:06→17:01)
[2017-03-19 15:00] VITALS: BP 137/62
[2017-03-19] MEDS: MORPHINE SULFATE 4 MG/ML DISP.SYRIN. IV PRN ×2 (18:23→21:02)
[2017-03-19 19:05] VITALS: BP 126/81
[2017-03-19 23:34] VITALS: BP 112/79
[2017-03-20] MEDS: MORPHINE SULFATE 2 MG/ML DISP.SYRIN. IV PRN ×4 (02:28→10:18)
[2017-03-20 02:29] VITALS: BP 117/74
[2017-03-20 04:14] VITALS: BP 129/90
[2017-03-20] MEDS: INSULIN ASPART 300 UNITS/3 ML INSULN.PEN SQ SCH ×3 (04:43→11:34)
[2017-03-20] MEDS: IV NORMAL SALINE 1,000ML 1,000 ML IV SCH ×2 (05:40→10:18)
[2017-03-20 06:46] LABS: CALCIUM 7.9 mg/dL (8.5-10.1); CREATININE 0.7 mg/dL (0.6-1.0); POTASSIUM 3.7 mmol/L (3.5-5.1)
[2017-03-20 07:38] VITALS: BP 134/77
[2017-03-20 11:00] VITALS: BP 122/84
[2017-03-20] MEDS ORDERED: KETOROLAC 30 MG/ML VIAL. IV ONE (11:10)
--- NOTE | 2017-03-20 20:25 | DS ---
DATE OF DISCHARGE: 03/20/2017 DISCHARGE DIAGNOSES: 1. Diabetic ketoacidosis. 2. Poorly controlled type 1 diabetes. 3. Gastroparesis. 4. Abdominal pain, questionable etiology. 5. Chronic hypomagnesemia. 6. Normochromic normocytic anemia. HOSPITAL COURSE: A 26-year-old female who was admitted for mild DKA. She seems to be coming in for admission earlier, but she had been months off of methamphetamine and then tested positive, had gone back to using it. She has not made any attempt to go into rehabilitation and does not know why she does what she does. She received morphine for her abdominal pain. It does not appear that she was on an insulin drip. She was on NovoLog. She did not require an insulin drip and was aggressively fluid resuscitated. PHYSICAL EXAMINATION: VITAL SIGNS: On day of discharge, blood pressure 122/84, respiratory rate 20, pulse 79 and pulse ox 98% on room air. Normal physical exam. PLAN: Discharge home, encouraged rehabilitation and made appointment for arlin Frederick do an EGD. BARRY MORELAND DO DR: DONNA/regina JOB#: [id number] / [id number]
== END 2017-03-20 12:55 | disposition home or self-care (01) | DRG 637 ==
LOC: ER 21:30 → ICU 03-18 00:30
PROVIDERS: ADMIT Internal Medicine; ATTEND Internal Medicine
DX: E10.10 Type 1 diabetes mellitus with ketoacidosis without coma (principal); R65.11 Systemic inflammatory response syndrome (SIRS) of non-infectious origin with acute organ dysfunction; E10.43 Type 1 diabetes mellitus with diabetic autonomic (poly)neuropathy; F17.210 Nicotine dependence, cigarettes, uncomplicated; F15.90 Other stimulant use, unspecified, uncomplicated; F43.20 Adjustment disorder, unspecified; E83.42 Hypomagnesemia; K31.84 Gastroparesis; D64.9 Anemia, unspecified; Z88.1 Allergy status to other antibiotic agents; Z91.09 Other allergy status, other than to drugs and biological substances
CPT/HCPCS: 36415; 80048; 80053; 81001; 82947; 83605; 83690; 83735; 84443; 85027; 87641; G0480; G0481; J1815; J1885; J2270; J2405; J2550; J3010; S0028; 99285-25; J7030

== ENCOUNTER 2017-03-24 11:30 | Inpatient (IN) | payer BC ==
[2017-03-24] VITALS (9 sets, daily range): BP systolic 82–145; BP diastolic 56–91
[~2017-03-24] VITALS: Ht 170.2 cm; Wt 59.0 kg
[2017-03-24] MEDS ORDERED: IV NORMAL SALINE 1,000ML 1,000 ML IV SCH ×2 (11:57→14:30)
[2017-03-24] MEDS ORDERED: fentaNYL PF 100 MCG/2 ML VIAL IV PRN (12:00)
--- NOTE | 2017-03-24 12:05 | PHYS DOC ---
Past History Past Medical History: Anxiety, Depression, Diabetes, Other Additional Past Medical Histor: pt reports several admissions for "high blood sugar" Past Surgical History: No Surgical History Smoking: Less than 1pk/day Alcohol Use: None Drug Use: Marijuana, Methamphetamine, Opiates, Other Adult General Chief Complaint Chief Complaint: BLOOD SUGAR PROBLEM HPI HPI Patient is a 26 year old female who presents with complains of nausea, vomiting , and abdominal pain. Patient states her symptoms started last night and have progressively worsened throughout the day today. Patient has had multiple episodes of vomiting. Patient states that she is having pain in the center of her abdomen which is typical for exacerbations of her gastroparesis. Patient is type I diabetic and states that she has been using her insulin as recommended. Patient is had multiple admissions to the hospital, most recently being released 3 days ago. Patient has not seen any specialists recently. Patient states that she has history of drug use, however she states she has not used methamphetamine in the last 5 weeks. Patient rates her pain currently is 10 out of 10. Patient states that she has had some associated shortness of breath and lightheadedness with her symptoms. Patient has not taken any medications to help with her symptoms. Review of Systems Review of Systems Constitutional: Denies fever or chills [] Eyes: Denies change in visual acuity, redness, or eye pain [] HENT: Denies nasal congestion or sore throat [] Respiratory: Shortness of breath [] Cardiovascular: Denies chest pain or edema [] GI: Abdominal pain, nausea, vomiting [] : Denies dysuria or hematuria [] Musculoskeletal: Denies back pain or joint pain [] Integument: Denies rash or skin lesions [] Neurologic: Denies headache, focal weakness or sensory changes [] Endocrine: Polyuria [] Current Medications Current Medications See nursing note Allergies Allergies Allergies Coded Allergies Type Severity Reaction Last Updated Verified acetaminophen Allergy Intermediate HIVES 11/27/16 Yes adhesive tape Allergy Intermediate 11/27/16 Yes Physical Exam Physical Exam Constitutional: Alert, afebrile, appears ill. [] HENT: Normocephalic, atraumatic, bilateral external ears normal, oropharynx dry , no oral exudates, nose normal. [] Eyes: PERRLA, EOMI, conjunctiva normal, no discharge. [] Neck: Normal range of motion, no tenderness, supple, no stridor. [] Cardiovascular: Tachycardia, regular rhythm, no murmur [] Lungs & Thorax: Bilateral breath sounds clear to auscultation [] Abdomen: Bowel sounds hypoactive, soft, tender to palpation in all 4 quadrants with voluntary guarding, no masses, no pulsatile masses. [] Skin: Warm, dry, no erythema, no rash. [] Back: No tenderness, no CVA tenderness. [] Extremities: No tenderness, no cyanosis, no clubbing, ROM intact, no edema. [] Neurologic: Alert and oriented X 3, normal motor function, normal sensory function, no focal deficits noted. [] Current Patient Data Vital Signs Vital Signs Date Time Temp Pulse Resp B/P (MAP) Pulse Ox O2 Delivery O2 Flow Rate FiO2 03/24/17 11:40 97.9 121 24 96 Room Air Lab Results Laboratory Tests Test 03/24/17 12:40 White Blood Count 8.0 x10^3/uL Red Blood Count 4.68 x10^6/uL Hemoglobin 13.5 g/dL Hematocrit 41.5 % Mean Corpuscular Volume 89 fL Mean Corpuscular Hemoglobin 29 pg Mean Corpuscular Hemoglobin Concent 33 g/dL Red Cell Distribution Width 14.0 % Platelet Count 333 x10^3/uL Neutrophils (%) (Auto) 48 % Lymphocytes (%) (Auto) 43 % Monocytes (%) (Auto) 6 % Eosinophils (%) (Auto) 1 % Basophils (%) (Auto) 2 % Neutrophils # (Auto) 3.8 x10^3uL Lymphocytes # (Auto) 3.4 x10^3/uL Monocytes # (Auto) 0.5 x10^3/uL Eosinophils # (Auto) 0.1 x10^3/uL Basophils # (Auto) 0.2 x10^3/uL Sodium Level 131 mmol/L Potassium Level 5.0 mmol/L Chloride Level 93 mmol/L Carbon Dioxide Level 18 mmol/L Anion Gap 20 Blood Urea Nitrogen 15 mg/dL Creatinine 0.7 mg/dL Estimated GFR (Cockcroft-Gault) 102.0 BUN/Creatinine Ratio 21 Glucose Level 467 mg/dL Calcium Level 9.3 mg/dL Total Bilirubin 0.6 mg/dL Aspartate Amino Transf (AST/SGOT) 17 U/L Alanine Aminotransferase (ALT/SGPT) 25 U/L Alkaline Phosphatase 111 U/L Total Protein 7.9 g/dL Albumin 4.0 g/dL Albumin/Globulin Ratio 1.0 Lipase 36 U/L Current Medications Medications (Trade) Dose Ordered Sig/Chevy Route PRN Reason Start Time Stop Time Status Last Admin Dose Admin Fentanyl Citrate (Fentanyl 2ml Vial) 50 mcg PRN Q15MIN PRN IV PAIN GREATER THAN 3/10 03/24/17 12:00 03/25/17 11:59 03/24/17 12:32 Sodium Chloride 1,000 ml @ 1,000 mls/hr Q1H IV 03/24/17 11:57 03/24/17 12:56 DC 03/24/17 12:33 Famotidine (Pepcid) 20 mg 1X ONCE IVP 03/24/17 12:30 03/24/17 12:31 DC 03/24/17 12:33 Metoclopramide HCl (Reglan) 10 mg 1X ONCE IV 03/24/17 12:30 03/24/17 12:31 DC 03/24/17 12:33 Sodium Chloride 1,000 ml @ 1,000 mls/hr 1X ONCE IV 03/24/17 13:15 03/24/17 14:14 EKG EKG Interpreted by me: Heart rate 119, sinus tachycardia, normal intervals, normal axis, no acute ST/T-wave abnormalities present [] Radiology/Procedures Radiology/Procedures [address] [address] IMAGING REPORT Signed PATIENT: CHALO RAYMUNDO ACCOUNT: [id number] : 1990 LOCATION: ER AGE: 26 SEX: F EXAM STATUS: REG ER ORD. PHYSICIAN: SONY WEAVER MD REASON: abdominal pain, shortness of breath PROCEDURE: ACUTE ABDOMEN SERIES Abdomen series with chest, 3 views, 03/24/2017: History: Abdominal pain There is a moderate amount stool scattered throughout the colon. The abdominal gas pattern is otherwise unremarkable. No free air is seen in the abdomen. There is no evidence of organomegaly. An unchanged lower pelvic calcifications on the right is probably a phlebolith. The heart size is normal. The lungs are clear. There is no evidence of pleural fluid. IMPRESSION: 1. Moderate amount of stool throughout the colon. 2. No acute abdominal abnormality is detected. DICTATED AND SIGNED BY: GENEVIEVE CASTANEDA MD DATE: 03/24/17 1223 CC: DANIAL VINCENT; SONY WEAVER MD ~ [] Course & Med Decision Making Course & Med Decision Making Pertinent Labs and Imaging studies reviewed. (See chart for details) The patient was given IV fentanyl, Reglan, and Pepcid and started on 2 L of IV fluids. Patient has an anion gap of 20 and a bicarbonate level of 18 with a blood sugar that is significantly elevated above 400. The patient appears to have signs of diabetic ketoacidosis. The patient continues to complain of symptoms which are not controlled at this time. I spoke with Dr. Grigsby who is familiar with the patient. She agreed with initiation of an insulin drip which was ordered in the emergency department. Patient will be admitted to ICU for further treatment and monitoring. Dragon Disclaimer Dragon Disclaimer This chart was dictated in whole or in part using Voice Recognition software in a busy, high-work load, and often noisy Emergency Department environment. It may contain unintended and wholly unrecognized errors or omissions. Departure Departure: Impression: Primary Impression: Diabetic ketoacidosis Disposition: ADMITTED INPATIENT Admitting Physician: Nadine Grigsby Condition: GUARDED Referrals: DANIAL VINCENT (PCP) Problem Qualifiers Primary Impression: Diabetic ketoacidosis Diabetes mellitus type: type 1 Diabetes mellitus complication detail: without coma Qualified Codes: E10.10 - Type 1 diabetes mellitus with ketoacidosis without coma SONY WEAVER MD March 24, 2017 12:05
[2017-03-24] MEDS ORDERED: FAMOTIDINE 20 MG/2 ML VIAL IVP ONE (12:30)
[2017-03-24] MEDS ORDERED: METOCLOPRAMIDE HCL 10 MG/2 ML VIAL. IV ONE (12:30)
--- NOTE | 2017-03-24 12:33 | RAD ---
Abdomen series with chest, 3 views, 03/24/2017: History: Abdominal pain There is a moderate amount stool scattered throughout the colon. The abdominal gas pattern is otherwise unremarkable. No free air is seen in the abdomen. There is no evidence of organomegaly. An unchanged lower pelvic calcifications on the right is probably a phlebolith. The heart size is normal. The lungs are clear. There is no evidence of pleural fluid. IMPRESSION: 1. Moderate amount of stool throughout the colon. 2. No acute abdominal abnormality is detected.
[2017-03-24 12:54] LABS: BASO # 0.2 x10^3/uL (0.0-0.2); BASO % 2 % (0-3); EOS # 0.1 x10^3/uL (0.0-0.7); EOS % 1 % (0-3); HEMATOCRIT 41.5 % (36.0-47.0); HEMOGLOBIN 13.5 g/dL (12.0-15.5); LYMPH # 3.4 x10^3/uL (1.0-4.8); LYMPH % 43 % (24-48); MEAN CORPUSCULAR HEMOGLOBIN 29 pg (25-35); MEAN CORPUSCULAR HGB CONC 33 g/dL (31-37); MEAN CORPUSCULAR VOLUME 89 fL (79-100); MONO # 0.5 x10^3/uL (0.0-1.1); MONO % 6 % (0-9); NEUT # 3.8 x10^3uL (1.8-7.7); NEUT % 48 % (31-73); PLATELET COUNT 333 x10^3/uL (140-400); RED BLOOD COUNT 4.68 x10^6/uL (3.50-5.40)
[2017-03-24 13:01] LABS: CALCIUM 9.3 mg/dL (8.5-10.1); CREATININE 0.7 mg/dL (0.6-1.0); TOTAL BILIRUBIN 0.6 mg/dL (0.2-1.0); TOTAL PROTEIN 7.9 g/dL (6.4-8.2)
[2017-03-24] MEDS ORDERED: IV NORMAL SALINE 1,000ML 1,000 ML IV ONE (13:15)
[2017-03-24] MEDS ORDERED: ONDANSETRON PF 4 MG/2 ML VIAL. IV PRN ×2 (13:15→14:15)
[2017-03-24] MEDS ORDERED: KETOROLAC 15 MG/ML VIAL. IV PRN (13:15)
[2017-03-24] MEDS ORDERED: INSULIN REGULAR 150 UNIT in 0.9 % SODIUM CHLORIDE 150ML 150 ML IV PRN ×2 (13:15→19:30)
[2017-03-24] MEDS ORDERED: diphenhydrAMINE 50 MG/ML VIAL IVP PRN (14:30)
[2017-03-24] MEDS: IV NORMAL SALINE 1,000ML 1,000 ML IV SCH ×2 (14:32→17:25)
[2017-03-24] MEDS: KETOROLAC 30 MG/ML VIAL. IV PRN ×2 (14:33→21:01)
[2017-03-24] MEDS: PANTOPRAZOLE IV PUSH 40 MG VIAL. IVP SCH (14:35)
--- NOTE | 2017-03-24 15:54 | EKG ---
[address] [address] Test Date: 2017-03-24 Test Time: 12:29:59 Pat Name: CHALO RAYMUNOD Department: Room: [facility] 1 Gender: F Warning Analyst: CORNEL : 1990 Requested By: SONY WEAVER Order Number: [id number] Reading MD: Alex Espinoza Measurements Intervals [place] Rate: 119 P: 63 WY: 126 QRS: 75 QRSD: 84 T: 28 QT: 294 QTc: 414 Interpretive Statements SINUS TACHYCARDIA Electronically Signed On 04-03-2017 8:44:44 CDT by Alex Espinoza
--- NOTE | 2017-03-24 16:31 | NUR ---
PT Admitted to ICU bed 2. PT is able to verbalize understanding of orientation to unit. PT resting. Becka GERBER
[2017-03-24] MEDS ORDERED: MAGNESIUM SULFATE 1GM 100 ML IV ONE (17:15)
[2017-03-24] MEDS: METOCLOPRAMIDE HCL 10 MG/2 ML VIAL. IV SCH ×2 (17:21→20:54)
--- NOTE | 2017-03-24 17:48 | ACF ---
Admission Criteria Forms GENERAL ADMISSION CRITERIA (Place 'X' for any and all applicable criteria): Admission is indicated for ANY ONE of the following: [ ]I. Hemodynamic instability as indicated by ANY ONE of the following(1)(2) (3)(4)(5): [ ]a) Vital sign abnormality not readily corrected by appropriate treatment within 12 to 24 hours indicated by ANY ONE of the following: [ ]i) Hypotension [ ]ii) Symptomatic Tachycardia unresponsive to treatment (eg , analgesia, fluids, sedation as indicated) [ ]iii) Orthostatic vital sign changes unresponsive to treatment (eg, fluids) [ ]b) Vital sign abnormality that is severe indicated by ANY ONE of the following: [ ]i) Inadequate perfusion indicated by ANY ONE of the following: [ ]1) Lactic acidosis (greater than 2 mmol/L) [ ]2) New abnormal capillary refill (greater than 3 seconds) [ ]3) Other metabolic acidosis (arterial pH less than 7.35) not otherwise explained [ ]4) Reduced urine output [ ]5) Altered mental status [ ]6) Myocardial Ischemia [ ]v) Mean arterial pressure[A] less than 60 mm Hg [ ]vi) Mean arterial pressure[A] less than 70 mm Hg after 30 minutes of appropriate treatment (eg, fluid resuscitation) [ ]vii) IV inotropic or vasopressor medication required to maintain adequate blood pressure or perfusion [ ]viii) Sustained heart rate greater than 120 beats per minute in adult or child 6 years or older[B]] [ ]II. Hypertension requiring inpatient treatment as indicated by ANY ONE of the following(6)(7)(8): [ ]a) SBP greater than 220 mm Hg or DBP greater than 120 mm Hg despite treatment [ ]b) SBP greater than 140 mm Hg or DBP greater than 100 mm Hg with evidence of acute end organ damage as indicated by ANY ONE of the following: [ ]i) Encephalopathy [ ]ii) Acute renal failure as indicated by new onset of ANY ONE of the following(9)(10)(11)(12)(13): [ ]1) A 3-fold rise in serum creatinine from baseline [ ]2) Serum creatinine greater than 4 mg/dL ( 354 micromoles/L) with acute rise greater than 0.5 mg/dL (44.2 micromoles/L) [ ]3) Reduction of more than 75% in estimated glomerular filtration rate from baseline [ ]4) Estimated glomerular filtration rate less than 35 mL/min/1.73m2 (0.59 mL/sec/1.73m2) in child up to 18 years of age [ ]5) Cessation of urine output indicated by ALL of the following: [ ]A. Adequate volume status [ ]B. Inadequate urine output as indicated by ANY ONE of the following: [ ]a. Urine output less than 0.3 mL/kg/hr for 24 hours [ ]b. Anuria (urine output less than 0.1 mL/kg/hr) for 12 hours [ ]iii) Aortic dissection [ ]iv) Myocardial ischemia [ ]v) Left ventricular heart failure [ ]vi) Retinal hemorrhage [ ]vii) Other significant finding [ ]c) Hypertension in child requiring inpatient treatment as indicated by ALL of the following(14)(15)(16): [ ]i) Outpatient treatment not effective, not available, or not appropriate [ ]ii) SBP or DBP greater than 95th percentile for age [ ]iii) Evidence of acute end organ damage as indicated by ANY ONE of the following: [ ]1) Altered mental status [ ]2) Acute renal failure as indicated by new onset of ANY ONE of the following(9)(10)(11)(12)(13): [ ]A. A 3-fold rise in serum creatinine from baseline [ ]B. Serum creatinine greater than 4 mg/dL (354 micromoles/L) with acute rise greater than 0.5 mg/dL (44.2 micromoles/L) [ ]C. Reduction of more than 75% in estimated glomerular filtration rate from baseline [ ]D. Estimated glomerular filtration rate less than 35 mL/min/1.73m2 (0.59 mL/sec/1.73m2)in child up to 18 years of age [ ]E. Cessation of urine output indicated by ALL of the following: [ ]a. Adequate volume status [ ]b. Inadequate urine output as indicated by ANY ONE of the following: [ ]1) Urine output less than 0.3 mL/kg/hr for 24 hours [ ]2) Anuria (urine output less than 0.1 mL/kg/hr) for 12 hours [ ]3) Severe headache [ ]4) Visual disturbance [ ]5) Retinal hemorrhage [ ]6) Other significant finding [ ]III. Acute cardiac or peripheral ischemia as indicated by ANY ONE of the following: [ ]a) Acute coronary syndrome(17)(18) [ ]b) Acute peripheral ischemia (eg, pulseless, cool, mottled, or cyanotic extremity)(19) [ ]IV. Cardiac arrhythmias or findings of immediate concern indicated by ANY ONE of the following(20)(21): [ ]a) Heart rhythms that are inherently dangerous or unstable indicated by ANY ONE of the following(22)(23)(24): [ ]i) Resuscitated ventricular fibrillation or cardiac arrest [ ]ii) Ventricular escape rhythm [ ]iii) Sustained ventricular tachycardia (30 seconds or more of ventricular rhythm at greater than 100 beats per minute) [ ]iv) Nonsustained ventricular tachycardia and ANY ONE of the following: [ ]1) Suspected cardiac ischemia as cause or consequence of ventricular tachycardia [ ]2) In setting of acute myocarditis [ ]b) Unstable cardiac conduction defects indicated by ANY ONE of the following(24)(25)(26): [ ]i) Type II second-degree atrioventricular block [ ]ii) Third-degree atrioventricular block [ ]iii) New-onset left bundle branch block with suspected myocardial ischemia [ ]c) Any heart rhythm and ANY ONE of the following(22)(23)(27)(28)( 29): [ ] i) Continuous long-term ECG monitoring needed (eg, initiation of drug requiring monitoring for more than 24 hours) [ ] ii) Patient has automatic implanted cardioverter defibrillator that is repeatedly firing, malfunctioning, or in need of immediate adjustment of settings beyond the scope of ambulatory or observation care. [ ]d) Heart rhythms of concern due to ANY ONE of the following: [ ]i) Hypotension [ ]ii) Respiratory distress [ ]iii) Association with other significant symptoms (eg, bradycardia with syncope or ongoing dizziness, supraventricular tachycardia with chest pain) (27)(28) (30) [ ] V. Severe heart failure as indicated by ANY ONE of the following ( 31)(32): [ ]a) Respiratory distress [ ]b) Hypotension [ ]c) Anasarca (refractory to outpatient therapy) [ ]d) Cardiac arrhythmias of immediate concern [ ]e) Myocardial ischemia [ ]. Respiratory abnormalities, including ANY ONE of the following(33)(34) (35)(36): [ ]a) Respiratory rate greater than 30 breaths per minute unresponsive to treatment [A] [ ]b) New saturation of arterial oxygen less than 90% [ ]c) New partial pressure of carbon dioxide greater than 44 mm Hg ( 5.9 kPa) [ ]d) Supplemental oxygen or respiratory treatments needed that are new or not performable at other levels of care [ ]e) New-onset cyanosis [ ]f) Inability to protect airway [ ]g) Chronic lung disease with severe deterioration (not responsive to emergency and observation care treatment as appropriate) as indicated by ANY ONE of the following(34)(36 ): [ ]i) SaO2 5% below baseline in patient with chronic hypoxemia [ ]ii) New requirement for supplemental oxygen to keep SaO2 at baseline or acceptable level [ ]iii) Required supplemental oxygen performable only in acute inpatient setting [ ]iv) Severe airflow or ventilation abnormalities [ ]v) Previously mobile patient unable to walk between rooms [ ]vi Inability to eat or sleep due to dyspnea [ ]vii) Rapid rate of exacerbation onset [ ]viii) Altered mental status ]VII. Severe airflow or ventilation abnormalities (not responsive to emergency and observation care treatment as appropriate) as indicated by ANY ONE of the following(33)(34)(35)(37): [ ]a) PCO2 greater than 42 mm Hg (5.6 kPa) and pH less than 7.35 (new ) [ ]b) Documented PCO2 increased more than 5 mm Hg (0.7 kPa) from disease baseline [ ]c) Airflow measurements [B] less than 60% of previous best or predicted (eg, peak expiratory flow rate less than 300 L/minute) despite intensive emergent treatment [C] [ ]d) Required respiratory treatments that are performable only in acute inpatient setting [ ]VIII. Impending or actual respiratory arrest ( Also use Respiratory Failure GRG for severe respiratory disease and long-term mechanical ventilation patients) [ ]IX. Neurologic abnormalities, including ANY ONE of the following: [ ]a) New findings that suggest ANY ONE of the following: [ ]i) [employer] infection(38) [ ]ii) Cerebral bleeding, ischemia, or vasospasm(39)(40) [ ]iii) Increased intracranial pressure, hydrocephalus, or cerebral edema(41)(42)(43) [ ]iv) Spinal cord injury(44) [ ]b) Uncontrolled seizures(45) [ ]c) New-onset coma (eg, Juani coma scale score less than 9) or unexplained abnormal mental status (eg, Juani coma scale score less than 14) [D](41)(46)(47) [ ]X. New-onset severe neurologic findings requiring inpatient care; examples include(42)(48)(49): [ ]a) Papilledema [ ]b) Cerebral edema [ ]c) Mass effect on CT scan [ ]XI. Suspected acute intra-abdominal process with peritoneal signs, abdominal mass, or similar findings (50)(51)(52) [X]XII. Severe physiologic disorder remaining after emergency or observation level care (as appropriate) as indicated by ANY ONE of the following (53): [ ]a) Significant dehydration [X]b) Diabetic ketoacidosis [ ]c) Hyperglycemic hyperosmolar state (eg, osmolality greater than 320 mOsm/kg (mmol/kg) [ ]d) Hypoglycemia [ ]e) Other (new) acid-base disorder with pH less than 7.35 or greater than 7.5(54) [ ]f) Thyroid storm (55) [ ]g) Myxedema coma (55) [ ]XIII. Abdominal abnormalities with ANY ONE of the following(56)(57): [ ]a) Absent bowel sounds with complete ileus [ ]b) Signs of intestinal obstruction or peritonitis [E] [ ]c) Nausea and vomiting that cannot be controlled with outpatient or observation care [ ]XIV. Acute renal failure as indicated by new onset of ANY ONE of the following(9)(10)(11)(12)(13): [ ]a) A 3-fold rise in serum creatinine from baseline [ ]b) Serum creatinine greater than 4 mg/dL (354 micromoles/L) with acute rise greater than 0.5 mg/dL (44.2 micromoles/L) [ ]c) Reduction of more than 75% in estimated glomerular filtration rate from baseline [ ]d) Estimated glomerular filtration rate less than 35 mL/min/ 1.73m2 (0.59 mL/sec/1.73m2) in child up to 18 years of age [ ]e) Cessation of urine output indicated by ALL of the following: [ ]i) Adequate volume status [ ]ii) Inadequate urine output as indicated by ANY ONE of the following: [ ]1) Urine output less than 0.3 mL/kg/hr for 24 hours [ ]2) Anuria (urine output less than 0.1 mL/kg/hr) for 12 hours [ ]XV. Significant uremic complications as indicated by ANY ONE of the following(58)(59)(60): [ ]a) Outpatient therapy is ineffective or not feasible for ANY ONE of the following: [ ]i) Severe heart failure [ ]ii) Severehypertension [ ]iii) Pleural effusion [ ]iv) Pericarditis or pericardial effusion [ ]b) Cardiac arrhythmias of immediate concern [ ]c) Intractable nausea or vomiting [ ]d) Recurrent seizures [ ]e) Encephalopathy [ ]f) Bleeding abnormalities (eg, platelet dysfunction) with active (eg, gastrointestinal) bleeding [ ]g) Dialysis indicated before long-term access or ambulatory arrangements can be made [ ]h) Significant metabolic or electrolyte abnormalities (eg, severe acidosis or hyperkalemia) [ ]XVI. High fever or other high-risk infection situation as indicated by ANY ONE of the following(61)(62)(63)(64): [ ]a) Outpatient and observation care antimicrobial treatment unavailable, not effective, or not appropriate [ ]b) Documented bacteremia [ ]c) Temperature greater than 40.5 degrees C (104.9 degrees F) ( oral) [ ]d) Temperature greater than 39.5 degrees C (103.1 degrees F) ( oral) or less than 36 degrees C (96.8 degrees F) (rectal) that does not respond to e treatment and observation care [ ] XVII. Temperature less than 95 degrees F (35 degrees C)(rectal)(65) [ ] XVIII. Severe nutritional abnormalities as indicated by ALL of the following (66)(67): [ ]a) Inability to tolerate or establish sufficient oral or other enteral nutrition in outpatient setting [ ]b) Parenteral nutrition regimen need that must be implemented on inpatient basis [ ] XIX. Severe electrolyte abnormalities indicated by ALL of the following(68) (69)(70): [ ]a) Electrolytes and associated findings are not as expected for patient baseline or acceptable treatment effects. [ ]b) Severe abnormalities indicated by ANY ONE of the following: [ ]i) Sodium less than 130 mEq/L (mmol/L) (new) [ ]ii)Sodium less than 135 mEq/L (mmol/L) with ANY ONE of the following: [ ]1) Uncorrectable (to near normal or chronic baseline) after trial of outpatient and emergency treatment [ ]2) Altered mental status [ ]3) Seizures [ ]4) Severe medical etiology requiring inpatient management (eg, heart failure, hypovolemia) [ ]iii) Sodium greater than 155 mEq/L (mmol/L) [ ]iv) Sodium greater than 150 mEq/L (mmol/L) with ANY ONE of the following: [ ]1) Uncorrectable (to near normal or chronic baseline) with outpatient and emergency treatment [ ]2) Altered mental status [ ]3) Seizures [ ]4) Severe medical etiology (eg, hypovolemia, diabetes insipidus) [ ]v) Potassium less than 2.5 mEq/L (mmol/L) despite outpatient and emergency treatment [ ]vi) Potassium less than 3 mEq/L (mmol/L) with ANY ONE of the following: [ ]1) Weakness [ ]2) Cardiac abnormality (eg, arrhythmia, conduction disturbance) [ ]3) Cardiac ischemia [ ]4) Ileus [ ]5) Ongoing medical cause requiring inpatient management (eg, acute renal wasting or SIADH) [ ]6) Other severe symptoms [ ]vii) Potassium greater than 6.5 mEq/L (mmol/L) [ ]viii) Potassium greater than 5 mEq/L (mmol/L) with ANY ONE of the following: [ ]1) Uncorrectable (to near normal or chronic baseline) with outpatient and emergency treatment [ ]2) Severe ECG findings [F] [ ]3) Acute worsening of renal failure (creatinine greater than 2.5 mg/dL (221 micromoles/L) or significant elevation for age and size) [ ]4) Severe weakness [ ]5) Severe medical etiology (eg, hemolysis, infection, drug overdose) [ ]ix) Calcium less than 7 mg/dL (1.75 mmol/L) despite outpatient and emergency treatment (72) [ ]x) Calcium less than 8 mg/dL (2 mmol/L) with significant symptoms or findings; examples include(72): [ ]1) Altered mental status [ ]2) Muscle spasms [ ]3) Seizures [ ]4) Breathing difficulty [ ]5) Cardiac abnormality (eg, arrhythmia or conduction disturbance) [ ]xi) Calcium greater than 14 mg/dL (3.5 mmol/L)(72) [ ]xii) Calcium greater than 12 mg/dL (3 mmol/L) with ANY ONE of the following(72): [ ]1) Uncorrectable (to near normal or chronic baseline) with outpatient and emergency treatment [ ]2) Significant dehydration or hypovolemia as indicated by ALL of the following(70)(73)(74): [ ]A. Not resolved with initial treatments [ ]B. Clinically significant dehydration as indicated by ANY ONE of the following: [ ]a. Vomiting refractory to outpatient treatment (ie, precluding oral rehydration) [ ]b. Inability to drink [ ]c. Hypernatremia or other electrolyte abnormality unable to be corrected with outpatient and emergency treatment [ ]d. Failure to remain hydrated with outpatient therapy [ ]e. Reduced urine output [ ]f. Hypotension [ ]g. Serious cause for dehydration requiring acute hospitalization (eg, bowel obstruction, increased intracranial pressure, infectious cause) [ ]h. Child with ANY ONE of the following(75): [ ]1) Severe abdominal tenderness [ ]2) Adequate care not available at home [ ]3) Severe dehydration ( greater than 9% loss of body weight) [ ]4) Significant symptoms or findings; examples include: [ ]A. Altered mental status [ ]B. Cardiac abnormality (eg, arrhythmia, conduction disturbance) [ ]C. Malignant etiology requiring inpatient treatment [ ]xiii) Phosphorus less than 1 mg/dL (0.32 mmol/L) [ ]xiv) Phosphorus less than 1.5 mg/dL (0.48 mmol/L) with ANY ONE of the following: [ ]1) Patient unresponsive to outpatient and emergency treatment [ ]2) Significant symptoms or findings; examples include: [ ]A. Weakness [ ]B. Altered mental status [ ]C. Breathing difficulty [ ]D. Seizures [ ]E. Rhabdomyolysis [ ]xv) Phosphorus greater than 10 mg/dL (3.2 mmol/L) [ ]xvi) Phosphorus greater than 4.5 mg/dL (1.45 mmol/L) (new) with ANY ONE of the following: [ ]1) Severe medical etiology (eg, crush injury, acute renal failure) [ ]2) Associated hypocalcemia with significant findings; examples include: [ ]A. Neurologic symptoms [ ]B. Altered mental status [ ]C. Muscle spasms [ ]D. Seizures [ ]E. Breathing difficulty [ ]F. Cardiac abnormality (eg, arrhythmia, conduction disturbance) [ ]xvii) Magnesium less than 1 mg/dL (0.41 mmol/L) [ ]xviii) Magnesium less than 1.5 mg/dL (0.62 mmol/L) with ANY ONE of the following: [ ]1) Patient unresponsive to outpatient and emergency treatment [ ]2) Associated hypocalcemia with significant findings; examples include: [ ]A. Altered mental status [ ]B. Muscle spasms [ ]C. Seizures [ ]D. Breathing difficulty [ ]E. Cardiac abnormality (eg, arrhythmia , conduction disturbance) [ ]3) Associated hypokalemia (potassium less than 3 mEq/L (mmol/L)) with risk of arrhythmia [ ]xix) Magnesium greater than 4 mEq/L (2 mmol/L) [ ]xx) Magnesium greater than 2.5 mEq/L (1.25 mmol/L) with significant symptoms or findings; examples include: [ ]1) Weakness [ ]2) Altered mental status [ ]3) Cardiac abnormality (eg, arrhythmia, conduction disturbance) [ ]4) Breathing difficulty [ ]5) Severe medical etiology (eg, renal failure, hypovolemia) [ ]xxi) Uric acid greater than 20 mg/dL (1190 micromoles/L)(76) [ ]xxii) Uric acid greater than 8 mg/dL (476 micromoles/L) with significant symptoms or findings of tumor lysis syndrome; examples include(76): [ ]1) Creatinine greater than 1.5 times upper limit of normal [ ]2) Cardiac abnormality (eg, arrhythmia, conduction disturbance) [ ]3) Seizure [ ]XX. Acute blood loss causing significant abnormality as indicated by ANY ONE of the following(77)(78): [ ]a) Hemoglobin less than 10 g/dL (100 g/L) (not baseline) [ ]b) Hematocrit less than 30% (0.30) (not baseline) [ ]c) Repeat hematocrit decreased more than 2% (0.02) [ ]d) Uncontrolled bleeding [ ]XXI. Severe anemia indicated by ANY ONE of the following(78)(79): [ ]a) Altered mental status [ ]b) Chest pain [ ]c) Exertional dyspnea [ ]d) Syncope [ ]e) Other findings suggesting inadequate perfusion [ ]f) Treatment with transfusion or volume replacement is ineffective at resolving ANY ONE of the following [G]: [ ]i) Tachycardia for age [ ]ii) Orthostatic vital sign changes as indicated by ANY ONE of the following(80): [ ]1) Fall in SBP of 20 mm Hg or more 1 to 3 minutes after patient sits or stands from recumbent position [ ]2) Fall in DBP of 10 mm Hg or more 1 to 3 minutes after patient sits or stands from recumbent position [ ]XXII. High-risk low platelet count as indicated by ANY ONE of the following( 81)(82): [ ]a) Severe or life-threatening bleeding (eg, intracranial, major gastrointestinal, or extensive mucosal bleeding), with any reduced platelet count [ ]b) Platelet count less than 20,000/mm3 (20 x109/L) with any active bleeding [ ]c) Platelet count less than 10,000/mm3 (10 x109/L) with minor purpura or petechiae [ ]d) Platelet count less than 5000/mm3 (5 x109/L) [ ]e) Low platelet count with hemolytic anemia [ ]XXIII. Disseminated intravascular coagulation(77)(83) [ ]XXIV. Severe adverse drug or systemic toxin reaction requiring inpatient treatment; examples include(84)(85): [ ]a) Serotonin syndrome(86) [ ]b) Neuroleptic malignant syndrome(86) [ ]c) Cholinergic syndrome with severe symptoms (eg, bronchorrhea, weakness, mental status changes, seizures) [ ]d) Sympathetic syndrome with severe symptoms (eg, seizures, mental status changes, cardiac dysrhythmias) [ ]e) Anticholinergic syndrome [ ]XXV. Severe pain requiring acute inpatient management as indicated by ALL of the following (87)(88)(89): [ ]a) Continuous or frequent (eg, every 2 to 4 hours) parenteral analgesics required [H] [ ]b) Rapid improvement expected from treatment or acute intervention (eg, surgery, anesthesia procedure) [ ]XXVI.Severe behavioral health issues judged unmanageable at a lower level of care (eg, residential) in a patient who is ANY ONE of the following(91) [ ]a) Acutely suicidal [ ]b) A danger to self (eg, self-mutilating or suicidal behavior) [ ]c) A danger to others (eg, assaultive or homicidal behavior) [ ]d) Incapacitated because of grave disability (eg, inability to provide for self at lower level of care) (92) [ ]XXVII. Inpatient monitoring needed; examples include(1)(3)(87)(93)(94)(95)(96 ): [ ]a) Vital signs, neurologic signs, or vascular checks more frequently than every 4 hours [ ]b) Cardiac or respiratory monitoring beyond the scope (eg, over 24 hours) of observation care [ ]c) Pulmonary artery catheter monitoring [ ]d) Suspected compartment syndrome(97) (98) [ ]e) Cerebral bleeding, hydrocephalus, or vasospasm monitoring [ ]f) Increased intracranial pressure or cerebral edema monitoring [ ]g) monitoring [ ]XXVIII. Treatment requiring inpatient care; examples include: [ ]a) IV fluid to replace significant ongoing losses (greater than 3 L/m2 per day)(53) [ ]b) High concentration oxygen (greater than 40%)(33)(99)(100) [ ]c) Frequent respiratory therapy (more frequently than every 4 hours) to maintain airflow rates greater than 60% of baseline(33)(99)(100) [ ]d) Epidural analgesia(87) [ ]e) IV anticoagulation, vasoactive, or antiarrhythmic medication(19 )(23) [ ]f) Acute thrombolytics (generally require 24 hours of observation )(101)(102) [ ]XXIX. Emergency procedures needed; examples include: [ ]a) Emergency inpatient surgery [ ]b) Temporary pacemaker placement(103) [ ]c) Chest tube placement with active evacuation (eg, suction, drainage)(104) [ ]d) Emergent cardioversion(105) [ ]e) Emergent cardiac or vascular procedures (eg, cardiac catheterization, angioplasty) (17)(18) [ ]f) Emergent dialysis access placement and institution(10)(106) [ ]g) Emergent pericardiocentesis(107) [ ]h) Emergent plasmapheresis or leukapheresis(83) [ ]i) Emergent tracheostomy The original [email or web address] content created by [email or web address] has been revised. The portions of the content which have been revised are identified through the use of italic text or in bold, and [facility] [employer] has neither reviewed nor approved the modified material. All other unmodified content is copyright [email or web address]. Please see references footnoted in the original [facility] edition 2016 Admission Criteria Met?: Yes ISAI MOONEY March 24, 2017 17:48
[2017-03-24] MEDS: POTASSIUM CHLORIDE 20 MEQ in IV DEXTROSE 5 %-0.45 % NACL 1,000 ML IV SCH (19:33)
[2017-03-24 20:41] LABS: CREATININE 0.6 mg/dL (0.6-1.0); GFR 121.8; MAGNESIUM 1.9 mg/dL (1.8-2.4); POTASSIUM 4.3 mmol/L (3.5-5.1)
[2017-03-24 20:43] LABS: CALCIUM 7.3 mg/dL (8.5-10.1)
[2017-03-24] MEDS: SENNOSIDES 8.6 MG TABLET PO SCH ×2 (20:54→21:00)
[2017-03-24 21:58] LABS: BARBITURATES NEG (NEG); BENZODIAZEPINES NEG (NEG); CANNABINOIDS NEG (NEG); COCAINE NEG (NEG); METHADONE NEG (NEG); OPIATES NEG (NEG); PHENCYCLIDINE NEG (NEG)
[2017-03-24 22:01] LABS: AMPHETAMINE/METHAMPHETAMINE NEG (NEG)
[2017-03-24 22:15] LABS: CLARITY,URINE HAZY; COLOR,URINE YELLOW; GLUCOSE,URINE >=1000 mg/dL (NEG)
[2017-03-24 22:16] LABS: BILIRUBIN,URINE NEG (NEG); NITRITE,URINE NEG (NEG); RBC,URINE OCC /HPF (0-2); UROBILINOGEN,URINE 0.2 mg/dL (0.2 mg/dL)
[2017-03-24 22:17] LABS: BACTERIA,URINE FEW /HPF (0-FEW); SQUAMOUS EPITHELIAL CELL,UR MOD /LPF
[2017-03-25 00:02] VITALS: BP 103/69
[2017-03-25 01:02] VITALS: BP 98/58
[2017-03-25 02:45] VITALS: BP 142/82
[2017-03-25] MEDS: POTASSIUM CHLORIDE 20 MEQ in IV DEXTROSE 5 %-0.45 % NACL 1,000 ML IV SCH (03:01)
[2017-03-25 04:03] VITALS: BP 107/66
[2017-03-25 05:03] VITALS: BP 127/86
[2017-03-25 05:56] LABS: BASO # 0.1 x10^3/uL (0.0-0.2); BASO % 1 % (0-3); EOS # 0.2 x10^3/uL (0.0-0.7); EOS % 2 % (0-3); HEMATOCRIT 33.4 % (36.0-47.0); HEMOGLOBIN 11.1 g/dL (12.0-15.5); LYMPH # 2.4 x10^3/uL (1.0-4.8); LYMPH % 31 % (24-48); MEAN CORPUSCULAR HEMOGLOBIN 29 pg (25-35); MEAN CORPUSCULAR HGB CONC 33 g/dL (31-37); MEAN CORPUSCULAR VOLUME 88 fL (79-100); MONO # 0.8 x10^3/uL (0.0-1.1); MONO % 11 % (0-9); NEUT # 4.2 x10^3uL (1.8-7.7); NEUT % 55 % (31-73); PLATELET COUNT 314 x10^3/uL (140-400); RED BLOOD COUNT 3.82 x10^6/uL (3.50-5.40); RED CELL DISTRIBUTION WIDTH 14.2 % (11.5-14.5); WHITE BLOOD COUNT 7.7 x10^3/uL (4.0-11.0)
[2017-03-25 06:03] LABS: CALCIUM 8.4 mg/dL (8.5-10.1); CREATININE 0.7 mg/dL (0.6-1.0); POTASSIUM 4.2 mmol/L (3.5-5.1)
[2017-03-25 07:03] VITALS: BP 148/88
[2017-03-25] MEDS: PANTOPRAZOLE IV PUSH 40 MG VIAL. IVP SCH (07:14)
[2017-03-25] MEDS: METOCLOPRAMIDE HCL 10 MG/2 ML VIAL. IV SCH (07:14)
[2017-03-25] MEDS: KETOROLAC 30 MG/ML VIAL. IV PRN (07:14)
[2017-03-25] MEDS ORDERED: ONDANSETRON ODT 4 MG TAB.RAPDIS PO PRN (08:00)
[2017-03-25] MEDS ORDERED: ESCITALOPRAM 5 MG TABLET PO SCH (09:00)
[2017-03-25] MEDS ORDERED: MAGNESIUM OXIDE 400 MG TABLET PO SCH (09:00)
[2017-03-25] MEDS ORDERED: INSULIN ASPART 300 UNITS/3 ML INSULN.PEN SQ SCH (09:00)
[2017-03-25] MEDS ORDERED: INSULIN DETEMIR 300 UNITS/3 ML INSULN.PEN. SQ SCH (09:00)
--- NOTE | 2017-03-25 09:17 | NUR ---
Discharge: Teaching verbal and written. Reviewed medications, follow-up, EGD, nausea, vomiting, ect. patient verbalized understanding. IV removed without complications, catheter tip in-tact. All belongings with patient. Patient ambulated off of unit independently accompanied by mother Deepti.
[2017-03-25] MEDS ORDERED: METOCLOPRAMIDE 10 MG TABLET PO SCH (11:30)
[2017-03-26] MEDS ORDERED: PANTOPRAZOLE 40 MG TABLET. PO SCH (07:30)
--- NOTE | 2017-03-26 12:17 | SSS ---
ADMIT DATE: 03/25/2017 DISCHARGE DIAGNOSES: 1. Diabetic ketoacidosis. 2. Dehydration. 3. Methamphetamine abuse, drug screen negative. 4. Chronic hypomagnesemia, on replacement. 5. Gastroparesis. 6. Moderate constipation. HISTORY OF PRESENT ILLNESS: This is the 18th time since 11/20/2016, this 26-year-old with severe type 1 diabetes, who was admitted to the hospital with DKA. Her condition is complicated by gastroparesis. She is a known methamphetamine user and states she had not used for a week. Her drug screen was negative. HOSPITAL COURSE: She was treated with IV resuscitation, insulin drip and Toradol for her aches and pains. On the day of discharge, she was ready to be discharged. Her constipation was relieved during the hospitalization. PHYSICAL EXAMINATION: VITAL SIGNS: Blood pressure was 148/88, pulse 87, respirations 18, pulse ox 97% on room air. GENERAL: Color is pale. HEENT: Hearing is normal. Her eyes are clear. Tongue was moist. NECK: Supple. LUNGS: Clear. CARDIOVASCULAR: Regular rhythm and rate. ABDOMEN: Soft, nontender to palpation. EXTREMITIES: Without edema. PLAN: Discharge home. She will see Dr. Bahsir for an EGD next week as she continues to have abdominal pain. BARRY MORELAND DO DR: DONNA/regina JOB#: [id number] / [id number]
== END 2017-03-25 09:15 | disposition home or self-care (01) | DRG 74 ==
LOC: ER 11:30 → ICU 13:20
PROVIDERS: ADMIT Family Medicine; ATTEND Family Medicine
DX: E10.43 Type 1 diabetes mellitus with diabetic autonomic (poly)neuropathy (principal); E87.1 Hypo-osmolality and hyponatremia; E10.10 Type 1 diabetes mellitus with ketoacidosis without coma; E83.42 Hypomagnesemia; E86.0 Dehydration; K31.84 Gastroparesis; K59.00 Constipation, unspecified; F12.90 Cannabis use, unspecified, uncomplicated; F32.9 Major depressive disorder, single episode, unspecified; F41.9 Anxiety disorder, unspecified; Z88.8 Allergy status to other drugs, medicaments and biological substances
CPT/HCPCS: 36415; 74022; 80048; 80053; 81001; 82010; 82947; 83690; 83735; 83930; 84100; 85027; 93005; 96361; 96374; 96375; C9113; G0481; J1815; J1885; J2765; J3010; J3475; S0028; 99285-25; J7030

== ENCOUNTER 2017-05-14 20:48 | Inpatient (IN) | payer BC ==
[~2017-05-14] VITALS: Ht 170.2 cm; Wt 65.5 kg
[~2017-05-14 20:48] MED LIST changes: -ESCI5TAB PO; +ESCITALOPRAM OXA5 MG PO
[2017-05-14] MEDS ORDERED: 0.9 % SODIUM CHLORIDE 10 ML DISP.SYRIN. IV PRN (21:00)
[2017-05-14] MEDS ORDERED: fentaNYL PF 100 MCG/2 ML VIAL IV PRN ×2 (21:00→23:30)
--- NOTE | 2017-05-14 21:15 | PHYS DOC ---
Past History Past Medical History: Depression, Diabetes, GERD, Other Additional Past Medical Histor: pt reports several admissions for "high blood sugar" Past Surgical History: Other Smoking: Less than 1pk/day Alcohol Use: None Drug Use: Marijuana, Methamphetamine, Opiates, Other Adult General Chief Complaint Chief Complaint: nausea and vomiting with hyperglycemia HPI HPI Patient is a pleasant 27-year-old female with a history of diabetes on insulin and a history of gastric paresis presents with nausea and vomiting and sugars too high to manage and measured home. Her symptoms of abdominal pain in the lower abdomen began earlier today got progressively worse with multiple episodes of nonbilious nonbloody and vomiting without diarrhea. She admits to being compliant with medications but her sugars are just been elevated. She's had multiple admissions for similar presentations. She denies any fevers, chills , changes in sensation or strength. She denies any travel outside the country or recent antibiotics. She denies any sick contacts. Patient's pain is described as crampy and achy a 9 of 10 worse with nausea and vomiting. Review of Systems Review of Systems Constitutional: Denies fever or chills [] Eyes: Denies change in visual acuity, redness, or eye pain [] HENT: Denies nasal congestion or sore throat [] Respiratory: Denies cough or shortness of breath [] Cardiovascular: No additional information not addressed in HPI [] GI: Her main complaint is abdominal pain nausea vomiting without diarrhea or bloody stools. : Denies dysuria or hematuria [] Musculoskeletal: Denies back pain or joint pain [] Integument: Denies rash or skin lesions [] Neurologic: Denies headache, focal weakness or sensory changes [] Endocrine: Denies polyuria or polydipsia [] Current Medications Current Medications Current Medications Medications (Trade) Dose Ordered Sig/Chevy Start Time Stop Time Status Last Admin Dose Admin Fentanyl Citrate (Fentanyl 2ml Vial) 50 mcg PRN Q15MIN PRN 05/14/17 21:00 05/15/17 20:59 Haloperidol Lactate (Haldol) 5 mg 1X ONCE 05/14/17 21:30 05/14/17 21:31 Lorazepam (Ativan) 1 mg 1X ONCE 05/14/17 21:30 05/14/17 21:31 Ondansetron HCl (Zofran) 4 mg 1X ONCE 05/14/17 21:30 05/14/17 21:31 Sodium Chloride (Normal Saline Flush) 10 ml QSHIFT PRN 05/14/17 21:00 Allergies Allergies Allergies Coded Allergies Type Severity Reaction Last Updated Verified acetaminophen Allergy Intermediate HIVES 11/27/16 Yes adhesive tape Allergy Intermediate 11/27/16 Yes Physical Exam Physical Exam Constitutional: Well developed, under nourished this patient is obviously uncomfortable and somewhat cachectic in appearance. She is pale HENT: Normocephalic, atraumatic, bilateral external ears normal, dry mucous membranes no oral exudates, nose normal. [] Eyes: PERRLA, EOMI, conjunctiva normal, no discharge. [] Neck: Normal range of motion, no tenderness, supple, no stridor. [] Cardiovascular:Heart rate regular rhythm, no murmur [] Lungs & Thorax: Bilateral breath sounds clear to auscultation [] Abdomen: Diffusely tender with increased bowel sounds with no guarding rebound or organomegaly noted particular location. No Boudreaux's or McBurney's point tenderness palpation Skin: Warm, dry, no erythema, no rash. [] Back: No tenderness, no CVA tenderness. [] Extremities: No tenderness, no cyanosis, no clubbing, ROM intact, no edema. [] Neurologic: Alert and oriented X 3, normal motor function, normal sensory function, no focal deficits noted. [] Psychologic: she is very anxious Current Patient Data Vital Signs Vital Signs Date Time Temp Pulse Resp B/P (MAP) Pulse Ox O2 Delivery O2 Flow Rate FiO2 05/14/17 21:24 20 94 Room Air Lab Results Laboratory Tests Test 05/14/17 20:15 05/14/17 20:55 05/14/17 21:27 05/14/17 22:15 White Blood Count 6.7 x10^3/uL (4.0-11.0) # Red Blood Count 4.58 x10^6/uL (3.50-5.40) Hemoglobin 13.2 g/dL (12.0-15.5) Hematocrit 39.8 % (36.0-47.0) Mean Corpuscular Volume 87 fL (79-100) Mean Corpuscular Hemoglobin 29 pg (25-35) Mean Corpuscular Hemoglobin Concent 33 g/dL (31-37) Red Cell Distribution Width 16.1 % (11.5-14.5) H Platelet Count 337 x10^3/uL (140-400) Neutrophils (%) (Auto) 45 % (31-73) Lymphocytes (%) (Auto) 43 % (24-48) Monocytes (%) (Auto) 9 % (0-9) Eosinophils (%) (Auto) 2 % (0-3) Basophils (%) (Auto) 1 % (0-3) Neutrophils # (Auto) 3.0 x10^3uL (1.8-7.7) Lymphocytes # (Auto) 2.9 x10^3/uL (1.0-4.8) Monocytes # (Auto) 0.6 x10^3/uL (0.0-1.1) Eosinophils # (Auto) 0.1 x10^3/uL (0.0-0.7) Basophils # (Auto) 0.1 x10^3/uL (0.0-0.2) Urine Collection Type Unknown Urine Color Straw Urine Clarity Clear Urine pH 7.5 Urine Specific [place] 1.015 Urine Protein Trace (NEG-TRACE) Urine Glucose (UA) 500 mg/dL (NEG) Urine Ketones (Stick) >=160 mg/dL (NEG) Urine Blood Neg (NEG) Urine Nitrite Neg (NEG) Urine Bilirubin Neg (NEG) Urine Urobilinogen Dipstick 0.2 mg/dL (0.2 mg/dL) Urine Leukocyte Esterase Neg (NEG) Urine RBC 0 /HPF (0-2) Urine WBC Occ /HPF (0-4) Urine Squamous Epithelial Cells Occ /LPF Urine Amorphous Sediment Present /HPF Urine Bacteria 0 /HPF (0-FEW) Urine Mucus Slight /LPF Glucose (Fingerstick) 212 mg/dL (70-99) H Sodium Level 139 mmol/L (136-145) Potassium Level 3.6 mmol/L (3.5-5.1) Chloride Level 99 mmol/L (98-107) Carbon Dioxide Level 27 mmol/L (21-32) Anion Gap 13 (6-14) Blood Urea Nitrogen 22 mg/dL (7-20) H Creatinine 0.6 mg/dL (0.6-1.0) Estimated GFR (Cockcroft-Gault) 120.8 BUN/Creatinine Ratio 37 (6-20) H Glucose Level 238 mg/dL (70-99) H Calcium Level 8.4 mg/dL (8.5-10.1) L Magnesium Level 2.0 mg/dL (1.8-2.4) Total Bilirubin 0.6 mg/dL (0.2-1.0) Aspartate Amino Transferase (AST) 17 U/L (15-37) Alanine Aminotransferase (ALT) 19 U/L (14-59) Alkaline Phosphatase 79 U/L (46-116) Total Protein 7.3 g/dL (6.4-8.2) Albumin 3.7 g/dL (3.4-5.0) Albumin/Globulin Ratio 1.0 (1.0-1.7) Lipase 34 U/L (73-393) L Acetone Level Sm pos (NEG) EKG EKG [] Radiology/Procedures Radiology/Procedures [] Course & Med Decision Making Course & Med Decision Making Pertinent Labs and Imaging studies reviewed. (See chart for details) [] Is is a pleasant 27-year-old female with history of gastroparesis, hyperglycemia and diabetes who presents with nausea vomiting and inability to tolerate by mouth medications and fluids. She has had a history of DKA and admission in the past and I'm worried given her presentation that she is presenting with the same. Her initial sugar was only to 210-15 she is very tender in her abdomen secondary to nausea and vomiting. She has dry mucous membranes and looks very uncomfortable. She was given IV and fluids 1 L normal saline as well as Haldol, fentanyl, and Zofran which marked improvement in her symptoms. Her urine and demonstrated ketones and increased urine specific gravity which demonstrates evidence of dehydration. This could be either starvation ketosis alcohol ketoacidosis or DKA. Given her elevation of her sugars she has no anion gap elevation is only 13 when calculated. He has positive acetone in her blood. Given this and her propensity for nausea and vomiting given her history of DKA in the past I have offered admission to the hospital for fluid hydration and better tighter control of her sugars. Dr. Henriquez is her PCP, I'll call internal medicine bottle house quality control technician Dr. Pereira or admission. typical DKA patients at [facility] go to the ICU. At this point she is hemodynamically stable Time now 10:15 PM Patient tells me that their symptoms given during CC are improved. We reviewed labs and I discussed my concern she still may be an early DKA given her nausea and vomiting, pain secondary to her hyperglycemia we may need to admit her to the hospital. Is now 11:15 PM Patient tells me that their symptoms given during CC are improved. We reviewed labs I told her that I admitted her to the hospital given her improved symptoms she may be only here a day or 2 until her sugars under better control. I would also advise that we need to get her under better management for her gastroparesis. General Repairer note: The medicine atm servicer called at of the service all at approximately 11:10 PM Consult called back at 11:10 PM Discussed the case I presented and they agreed with admission. Time of acceptance 11:10 PM Impression: Diabetic ketoacidosis, hydration, abdominal pain secondary to gastroparesis chronic Disposition: Admission to the hospital Dragon Disclaimer Dragon Disclaimer This chart was dictated in whole or in part using Voice Recognition software in a busy, high-work load, and often noisy Emergency Department environment. It may contain unintended and wholly unrecognized errors or omissions. Departure Departure: Impression: Primary Impression: Abdominal pain Additional Impressions: DKA (diabetic ketoacidoses) Tobacco use disorder Nausea and vomiting Disposition: ADMITTED INPATIENT Admitting Physician: Justin Pereira Condition: GUARDED Referrals: DANIAL VINCENT (PCP) Problem Qualifiers SHELIA GARCÍA MD May 14, 2017 21:15
[2017-05-14 21:23] LABS: BASO # 0.1 x10^3/uL (0.0-0.2); BASO % 1 % (0-3); EOS # 0.1 x10^3/uL (0.0-0.7); EOS % 2 % (0-3); HEMATOCRIT 39.8 % (36.0-47.0); HEMOGLOBIN 13.2 g/dL (12.0-15.5); LYMPH # 2.9 x10^3/uL (1.0-4.8); LYMPH % 43 % (24-48); MEAN CORPUSCULAR HEMOGLOBIN 29 pg (25-35); MEAN CORPUSCULAR HGB CONC 33 g/dL (31-37); MEAN CORPUSCULAR VOLUME 87 fL (79-100); MONO # 0.6 x10^3/uL (0.0-1.1); MONO % 9 % (0-9); NEUT % 45 % (31-73); PLATELET COUNT 337 x10^3/uL (140-400); RED BLOOD COUNT 4.58 x10^6/uL (3.50-5.40); RED CELL DISTRIBUTION WIDTH 16.1 % (11.5-14.5); WHITE BLOOD COUNT 6.7 x10^3/uL (4.0-11.0)
[2017-05-14] MEDS ORDERED: IV NORMAL SALINE 1,000ML 1,000 ML IV SCH (21:30)
[2017-05-14] MEDS ORDERED: LORazepam 2 MG/ML VIAL IV ONE (21:30)
[2017-05-14] MEDS ORDERED: ONDANSETRON PF 4 MG/2 ML VIAL. IV ONE (21:30)
[2017-05-14] MEDS ORDERED: HALOPERIDOL LACT 5 MG/ML VIAL. IVP ONE (21:30)
[2017-05-14 21:31] LABS: AMORPHOUS SEDIMENT,UR PRESENT /HPF; BACTERIA,URINE 0 /HPF (0-FEW); BILIRUBIN,URINE NEG (NEG); CLARITY,URINE CLEAR; COLOR,URINE STRAW; GLUCOSE,URINE 500 mg/dL (NEG); NITRITE,URINE NEG (NEG); RBC,URINE 0 /HPF (0-2); SQUAMOUS EPITHELIAL CELL,UR OCC /LPF; UROBILINOGEN,URINE 0.2 mg/dL (0.2 mg/dL); WBC,URINE OCC /HPF (0-4)
[2017-05-14 22:52] LABS: ALBUMIN 3.7 g/dL (3.4-5.0); CALCIUM 8.4 mg/dL (8.5-10.1); CREATININE 0.6 mg/dL (0.6-1.0); GFR 120.8; POTASSIUM 3.6 mmol/L (3.5-5.1); TOTAL BILIRUBIN 0.6 mg/dL (0.2-1.0); TOTAL PROTEIN 7.3 g/dL (6.4-8.2)
[2017-05-14] MEDS: IV NORMAL SALINE 1,000ML 1,000 ML IV SCH (23:17)
[2017-05-14] MEDS ORDERED: ONDANSETRON PF 4 MG/2 ML VIAL. IV PRN (23:30)
[2017-05-15] VITALS (23 sets, daily range): BP systolic 100–135; BP diastolic 58–93
--- NOTE | 2017-05-15 01:11 | NUR ---
The patient, CHALO RAYMUNDO, 27 y/o, F admitted by ANAYELI FOSS MD, was given written information regarding hospital policies, unit procedures and contact persons. Valuables were checked and the patient was made comfortable by staff.
--- NOTE | 2017-05-15 01:48 | NUR ---
Blood sugar taken, 330
[2017-05-15] MEDS ORDERED: DEXTROSE 50% 25 GM / 50ML DISP.SYRIN. IV PRN (02:00)
[2017-05-15] MEDS ORDERED: ONDANSETRON ODT 4 MG TAB.RAPDIS PO PRN (02:45)
[2017-05-15] MEDS ORDERED: INSULIN ASPART 300 UNITS/3 ML INSULN.PEN SQ ONE (02:47)
[2017-05-15] MEDS: INSULIN ASPART 300 UNITS/3 ML INSULN.PEN SQ SCH ×4 (03:20→21:00)
--- NOTE | 2017-05-15 04:29 | ACF ---
Admission Criteria Forms ABDOMINAL PAIN Clinical Indications for Admission to Inpatient Care (Place 'X' for any and all applicable criteria): Admission is indicated for ANY ONE of the following(1)(2)(3)(4)(5): [X]I. Inpatient admission required rather than observation care (Also use Abdominal Pain: Observation Care, as appropriate) because of ANY ONE of the following: [X]a) Severe pain requiring acute inpatient management [ ]b) Identification of etiology/finding that requires inpatient care (eg, aortic dissection, free air) [ ]c) Absent bowel sounds with complete ileus(6) [ ]d) Suspected toxic megacolon [ ]e) Severe electrolyte abnormalities requiring inpatient care [ ]f) High fever or infection requiring inpatient admission as indicated by ANY ONE of following(7)(8): [ ] i) Appropriate outpatient or observational care antimicrobial treatment unavailable, not effective, or not feasible [ ] ii) Documented bacteremia [ ] iii) Temperature > 104.9 degrees F (oral) [ ] iv) T >103.1 F (oral) or < 96.8 F(rectal) that does not respond to all emergency treatment measures [ ]g) Signs of intestinal obstruction [B] [ ]h) Hemodynamic instability [ ]i) IV fluid to replace significant ongoing losses (greater than 3 L/m2 per day) (12)(13) [ ]j) Percutaneous or open drainage (eg, abscess, biliary tract ) procedures [ ]k) Parenteral nutrition regimen that must be implemented on inpatient basis [ ]l) Other condition,treatment or monitoring requiring inpatient admission. [ ]II. Peritoneal signs present [ ]III. Surgery needed that cannot be performed on an ambulatory basis. [ ]IV. Evaluation requires patient to not eat or drink for extended period ( eg, more than 24 hours). [ ]V. Contraindications and/or Inappropriate clinical situations for Observational Care in patients with abdominal pain, when ANY ONE of the following is required: [ ]a) Thorough evaluation is required to prevent catastrophic events due to delays in diagnosing (e.g.Mesenteric ischemia) 1,3 [ ]b) Patient with severe pathology or with chronic symptoms unlikely to improve in the ED stay (3) [ ]. General contraindications and/or Inappropriate clinical situations for Observational Care in patients with abdominal pain, when ANY ONE of the following is required: [ ]a) Prediction of prolongation of LOS based on ANY ONE of the following may be considered as a contraindication for observational care 2, 3, 4, 5, 6, 7, 8, 9, 10, 11 [ ]i) Age > 65 yrs. [ ]ii) Patient arriving by ambulance [ ]iii) Patient with high acuity [ ]iv) Patient requiring vital sign monitoring [ ]v) Patient on IV medication [ ]b) Systolic blood pressures 180mmHg 3,12 [ ]c) Patient with altered mental status including delirium and other alteration of consciousness, (3) [ ]d) Patient whose discharge disposition will be to a nursing home home or rehabilitation home should not be managed in Emergency Department Observation Unit. CMS rule requires 3 days hospital stay before such placement.3,13 [ ]e) Patient with failure to thrive due to broad array of etiologies 3,16,17 [ ]f) Inability to ambulate 3,14 Extended stay beyond goal length of stay may be needed for(2)(3): [ ]a) Persistent abdominal pain with suspected intra-abdominal process [ ]b) Diagnosed condition requiring continued stay (e.g., pancreatitis, complicated diverticulitis) [ ]c) Surgery (e.g., colectomy) The original [facility] content created by [employer] has been revised. The portions of the content which have been revised are identified through the use of italic text or in bold, and [facility] has neither reviewed nor approved the modified material.All other unmodified content is copyright [employer] Please see references footnoted in the original [facility] edition 2016 Admission Criteria Met?: Yes ASHISH LICEA May 15, 2017 04:29
--- NOTE | 2017-05-15 04:51 | NUR ---
Blood sugar taken, 204
[2017-05-15 06:05] LABS: BASO # 0.1 x10^3/uL (0.0-0.2); BASO % 1 % (0-3); EOS # 0.1 x10^3/uL (0.0-0.7); EOS % 2 % (0-3); HEMATOCRIT 34.2 % (36.0-47.0); HEMOGLOBIN 11.1 g/dL (12.0-15.5); LYMPH # 2.7 x10^3/uL (1.0-4.8); LYMPH % 51 % (24-48); MEAN CORPUSCULAR HEMOGLOBIN 28 pg (25-35); MEAN CORPUSCULAR HGB CONC 33 g/dL (31-37); MEAN CORPUSCULAR VOLUME 88 fL (79-100); MONO # 0.5 x10^3/uL (0.0-1.1); MONO % 9 % (0-9); NEUT % 37 % (31-73); PLATELET COUNT 272 x10^3/uL (140-400); RED BLOOD COUNT 3.91 x10^6/uL (3.50-5.40); RED CELL DISTRIBUTION WIDTH 15.9 % (11.5-14.5); WHITE BLOOD COUNT 5.3 x10^3/uL (4.0-11.0)
[2017-05-15 06:21] LABS: ALBUMIN 3.2 g/dL (3.4-5.0); ALBUMIN/GLOBULIN RATIO 0.9 (1.0-1.7); CALCIUM 8.4 mg/dL (8.5-10.1); CREATININE 0.7 mg/dL (0.6-1.0); GFR 101.1; POTASSIUM 3.7 mmol/L (3.5-5.1); TOTAL BILIRUBIN 0.5 mg/dL (0.2-1.0); TOTAL PROTEIN 6.6 g/dL (6.4-8.2)
[2017-05-15] MEDS ORDERED: KETOROLAC 15 MG/ML VIAL. IV PRN (06:45)
[2017-05-15] MEDS: IV NORMAL SALINE 1,000ML 1,000 ML IV SCH ×3 (07:17→19:21)
--- NOTE | 2017-05-15 07:46 | NUR ---
PT feeling better today, pt is able to verbalize understanding of poc. Becka GERBER
[2017-05-15] MEDS: INSULIN DETEMIR 300 UNITS/3 ML INSULN.PEN. SQ SCH ×3 (08:18→21:00)
[2017-05-15] MEDS: ESCITALOPRAM 5 MG TABLET PO SCH (08:29)
[2017-05-15] MEDS: METOCLOPRAMIDE 10 MG TABLET PO SCH ×4 (08:29→21:55)
[2017-05-15] MEDS: PANTOPRAZOLE 40 MG TABLET. PO SCH (08:29)
[2017-05-15] MEDS: MAGNESIUM OXIDE 400 MG TABLET PO SCH (08:29)
--- NOTE | 2017-05-15 13:21 | HP ---
ADMIT DATE: 05/15/2017 REASON FOR ADMISSION: 1. Intractable nausea, vomiting. 2. Mild ketoacidosis. HISTORY OF PRESENT ILLNESS: A 27-year-old female who has had multiple admissions in the past for diabetic ketoacidosis as well as nausea and vomiting. Actually, her last admission here was 05/11/2017, and discharged on 05/12/2017. The patient just had her birthday, but was somewhat evasive about whether she was celebratory or not. PAST MEDICAL HISTORY: She has chronic gastritis. Longstanding poorly controlled type 1 diabetes, gastroparesis, adjustment disorder, methamphetamine abuse, chronic hypomagnesemia, and former tobacco use disorder. ALLERGIES: TYLENOL and ADHESIVE TAPE. PAST SURGICAL HISTORY: Port-A-Cath placement and removal due to infection. MEDICATIONS: She is on long-acting and short-acting insulin as well as supposed to be on magnesium and Reglan. OBJECTIVE: VITAL SIGNS: Blood pressure 115/67, pulse 96, respirations 20, pulse ox 99% on room air. GENERAL: The patient is very sleepy and she received Haldol and lorazepam for nausea in the Emergency Room. She did not have any further nausea. HEENT: Face is a little bit puffy and tongue was slightly dry. NECK: Supple. LUNGS: Clear. ABDOMEN: Soft, basically diffusely tender. EXTREMITIES: Without edema. LABORATORY DATA: Normal white count, hemoglobin 11.1, hematocrit 34.2. Chemistry: Potassium was 3.7, magnesium is 2, lipase 34, and glucose 238. She was positive for ketones and her urine drug screen was not done and also she did have a positive acetone. PLAN: Diabetic ketoacidosis protocol. Continue with her medications. I discontinued her fentanyl and she can have Toradol, continue Reglan. BARRY MORELAND DO DR: DONNA/regina JOB#: [id number] / [id number]
[2017-05-15 17:24] LABS: BARBITURATES NEG (NEG); BENZODIAZEPINES NEG (NEG); CANNABINOIDS NEG (NEG); COCAINE NEG (NEG); METHADONE NEG (NEG); OPIATES NEG (NEG); PHENCYCLIDINE NEG (NEG)
[2017-05-15 17:27] LABS: AMPHETAMINE/METHAMPHETAMINE POS (NEG)
[2017-05-15] MEDS ORDERED: INSULIN DETEMIR 300 UNITS/3 ML INSULN.PEN. SQ SCH (21:00)
[2017-05-16] VITALS (7 sets, daily range): BP systolic 105–134; BP diastolic 67–94
[2017-05-16] MEDS: INSULIN DETEMIR 300 UNITS/3 ML INSULN.PEN. SQ SCH ×2 (01:14→07:53)
[2017-05-16] MEDS: INSULIN ASPART 300 UNITS/3 ML INSULN.PEN SQ SCH ×2 (01:16→07:30)
[2017-05-16] MEDS ORDERED: IV NORMAL SALINE 1,000ML 1,000 ML IV SCH (02:45)
[2017-05-16] MEDS: IV NORMAL SALINE 1,000ML 1,000 ML IV SCH (02:45)
[2017-05-16 06:40] LABS: BASO # 0.1 x10^3/uL (0.0-0.2); BASO % 1 % (0-3); EOS # 0.1 x10^3/uL (0.0-0.7); EOS % 3 % (0-3); HEMATOCRIT 30.3 % (36.0-47.0); HEMOGLOBIN 10.2 g/dL (12.0-15.5); LYMPH # 2.4 x10^3/uL (1.0-4.8); LYMPH % 46 % (24-48); MEAN CORPUSCULAR HEMOGLOBIN 29 pg (25-35); MEAN CORPUSCULAR HGB CONC 34 g/dL (31-37); MEAN CORPUSCULAR VOLUME 85 fL (79-100); MONO # 0.4 x10^3/uL (0.0-1.1); MONO % 8 % (0-9); NEUT # 2.3 x10^3uL (1.8-7.7); NEUT % 42 % (31-73); PLATELET COUNT 246 x10^3/uL (140-400); RED BLOOD COUNT 3.56 x10^6/uL (3.50-5.40); RED CELL DISTRIBUTION WIDTH 15.8 % (11.5-14.5); WHITE BLOOD COUNT 5.3 x10^3/uL (4.0-11.0)
[2017-05-16 06:48] LABS: ALBUMIN 2.4 g/dL (3.4-5.0); ALBUMIN/GLOBULIN RATIO 0.8 (1.0-1.7); CALCIUM 7.9 mg/dL (8.5-10.1); CREATININE 0.5 mg/dL (0.6-1.0); GFR 149.1; MAGNESIUM 1.8 mg/dL (1.8-2.4); POTASSIUM 3.6 mmol/L (3.5-5.1); TOTAL BILIRUBIN 0.1 mg/dL (0.2-1.0); TOTAL PROTEIN 5.4 g/dL (6.4-8.2)
[2017-05-16] MEDS: ESCITALOPRAM 5 MG TABLET PO SCH (07:48)
[2017-05-16] MEDS: PANTOPRAZOLE 40 MG TABLET. PO SCH (07:48)
[2017-05-16] MEDS: MAGNESIUM OXIDE 400 MG TABLET PO SCH (07:48)
[2017-05-16] MEDS: METOCLOPRAMIDE 10 MG TABLET PO SCH (07:48)
--- NOTE | 2017-05-16 08:11 | NUR ---
IP: patient has MRSA + nasal screen, requires contact precautions until 2 negative results 7 days apart.
--- NOTE | 2017-05-16 09:26 | NUR ---
PT dc to home. PT verbalized understanding of poc and discharge instructions. PT is to see laboratory phlebotomist tomorrow. Becka GERBER
[2017-05-17] MEDS ORDERED: CEPH-264 PO (20:09)
== END 2017-05-16 10:00 | disposition home or self-care (01) | DRG 639 ==
LOC: ER 20:48 → ICU 23:18
PROVIDERS: ADMIT Internal Medicine; ATTEND Internal Medicine
DX: E10.10 Type 1 diabetes mellitus with ketoacidosis without coma (principal); E10.43 Type 1 diabetes mellitus with diabetic autonomic (poly)neuropathy; K31.84 Gastroparesis; E83.42 Hypomagnesemia; K29.50 Unspecified chronic gastritis without bleeding; F15.10 Other stimulant abuse, uncomplicated; F43.20 Adjustment disorder, unspecified; F32.9 Major depressive disorder, single episode, unspecified; K21.9 Gastro-esophageal reflux disease without esophagitis; Z87.891 Personal history of nicotine dependence; Z88.8 Allergy status to other drugs, medicaments and biological substances
CPT/HCPCS: 36415; 80053; 81001; 82010; 82947; 83690; 83735; 85027; 87641; 96361; 96374; 96375; G0481; J1630; J1815; J2060; J2405; J3010; J8597; 99285-25; J7030

== ENCOUNTER 2017-05-17 19:03 | Emergency (ER) | payer BC ==
[2017-05-16 09:24] VITALS: BP 115/74
[~2017-05-17] VITALS: Ht 170.2 cm; Wt 61.4 kg
--- NOTE | 2017-05-17 19:31 | PHYS DOC ---
Past History Past Medical History: Depression, Diabetes, GERD, Other Additional Past Medical Histor: pt reports several admissions for "high blood sugar" Past Surgical History: Other Smoking: Less than 1pk/day Alcohol Use: None Drug Use: Marijuana, Methamphetamine, Opiates, Other Adult General Chief Complaint Chief Complaint: PAIN ON URINATION HPI HPI Patient is a 27 year old female who presents with complaint of right-sided flank pain and dysuria. Patient states her symptoms started earlier today and have been progressively worsening. Patient states that she may have "a kidney infection." Patient has history of type 1 diabetes mellitus and has had multiple admissions for diabetic ketoacidosis. Patient was recently admitted to the hospital on May 14, 2017 and treated for intractable nausea and vomiting and uncontrolled diabetes. Patient was released yesterday from the hospital. Patient states that she has felt hot and cold but has not measured a temperature at home. Patient denies any chest pain, shortness of breath, nausea , or vomiting at this time. On my evaluation, patient rates her pain as 8 out of 10. Patient has not noticed any hematuria but has had increased urinary frequency. Patient pain is sharp and worsens when she is touched in the right flank. Review of Systems Review of Systems Constitutional: Feels "hot and cold." [] Eyes: Denies change in visual acuity, redness, or eye pain [] HENT: Denies nasal congestion or sore throat [] Respiratory: Denies cough or shortness of breath [] Cardiovascular: Denies chest pain or edema [] GI: Denies abdominal pain, nausea, vomiting, bloody stools or diarrhea [] : Dysuria [] Musculoskeletal: Right flank pain [] Integument: Denies rash or skin lesions [] Neurologic: Denies headache, focal weakness or sensory changes [] Allergies Allergies Allergies Coded Allergies Type Severity Reaction Last Updated Verified acetaminophen Allergy Intermediate HIVES 11/27/16 Yes adhesive tape Allergy Intermediate 11/27/16 Yes I S O L A T I O N *CONTACT* Allergy Unknown 05/16/17 Yes Physical Exam Physical Exam Constitutional: Well developed, well nourished, no acute distress, non-toxic appearance. [] HENT: Normocephalic, atraumatic, bilateral external ears normal, oropharynx moist, no oral exudates, nose normal. [] Eyes: PERRLA, EOMI, conjunctiva normal, no discharge. [] Neck: Normal range of motion, no tenderness, supple, no stridor. [] Cardiovascular:Heart rate regular rhythm, no murmur [] Lungs & Thorax: Bilateral breath sounds clear to auscultation [] Abdomen: Bowel sounds normal, soft, no tenderness, no masses, no pulsatile masses. [] Skin: Warm, dry, no erythema, no rash. [] Back: No midline tenderness, right CVA tenderness to palpation, no flank ecchymosis. [] Extremities: No tenderness, no cyanosis, no clubbing, ROM intact, no edema. [] Neurologic: Alert and oriented X 3, normal motor function, normal sensory function, no focal deficits noted. [] Current Patient Data Vital Signs Vital Signs Date Time Temp Pulse Resp B/P (MAP) Pulse Ox O2 Delivery O2 Flow Rate FiO2 05/17/17 19:43 20 98 Room Air 05/17/17 19:10 98.3 103 Lab Results Laboratory Tests Test 05/17/17 19:15 Urine Collection Type Unknown Urine Color Straw Urine Clarity Hazy Urine pH 7.0 Urine Specific [place] 1.015 Urine Protein Neg Urine Glucose (UA) >=1000 mg/dL Urine Ketones (Stick) Neg mg/dL Urine Blood Neg Urine Nitrite Neg Urine Bilirubin Neg Urine Urobilinogen Dipstick 0.2 mg/dL Urine Leukocyte Esterase Neg Urine RBC Occ /HPF Urine WBC Occ /HPF Urine Squamous Epithelial Cells Many /LPF Urine Bacteria Few /HPF Urine Test Negative Current Medications Medications (Trade) Dose Ordered Sig/[place] PRN Reason Start Time Stop Time Status Last Admin Dose Admin Tramadol HCl (Ultram) 50 mg 1X ONCE PO 05/17/17 20:00 05/17/17 20:01 DC 05/17/17 19:43 Cephalexin HCl (Keflex) 500 mg 1X ONCE PO 05/17/17 20:30 05/17/17 20:31 EKG EKG Not performed [] Radiology/Procedures Radiology/Procedures Not performed [] Course & Med Decision Making Course & Med Decision Making Pertinent Labs and Imaging studies reviewed. (See chart for details) The patient's UA showed evidence of bacteria and a small amount of white blood cells. Given the patient's sudden onset of pain with dysuria, I will electively treat the patient for urinary tract infection and possible acute pyelonephritis. Patient started on oral Keflex in the emergency department. The patient will continue on seven-day course for treatment. Advised follow-up with primary doctor in 2-3 days for reevaluation and return to emergency department for any worsening symptoms. Patient voiced understanding and in agreement with treatment plan. Dragon Disclaimer Dragon Disclaimer This chart was dictated in whole or in part using Voice Recognition software in a busy, high-work load, and often noisy Emergency Department environment. It may contain unintended and wholly unrecognized errors or omissions. Departure Departure: Impression: Primary Impression: UTI (urinary tract infection) Disposition: HOME, SELF-CARE Condition: IMPROVED Referrals: DANIAL VINCENT (PCP) Patient Instructions: Pyelonephritis, Adult Additional Instructions: Follow-up with your primary doctor in 2-3 days for reevaluation. Return to the emergency department for any worsening symptoms. Scripts Cephalexin (KEFLEX) 500 Mg Capsule 1 CAP PO TID, #21 CAP Prov: SONY WEAVER MD 05/17/17 Problem Qualifiers Primary Impression: UTI (urinary tract infection) Urinary tract infection type: acute pyelonephritis Qualified Codes: N10 - Acute pyelonephritis SONY WEAVER MD May 17, 2017 19:31
[2017-05-17 19:52] LABS: BILIRUBIN,URINE NEG (NEG); CLARITY,URINE HAZY; COLOR,URINE STRAW; GLUCOSE,URINE >=1000 mg/dL (NEG)
[2017-05-17 19:53] LABS: NITRITE,URINE NEG (NEG); UROBILINOGEN,URINE 0.2 mg/dL (0.2 mg/dL)
[2017-05-17 19:54] LABS: BACTERIA,URINE FEW /HPF (0-FEW); RBC,URINE OCC /HPF (0-2); SQUAMOUS EPITHELIAL CELL,UR MANY /LPF; WBC,URINE OCC /HPF (0-4)
[2017-05-17 19:57] LABS: U PREG PATIENT NEGATIVE (NEG)
[2017-05-17] MEDS ORDERED: traMADol 50 MG TABLET PO ONE (20:00)
[2017-05-17] MEDS ORDERED: CEPH-264 PO (20:09)
[2017-05-17] MEDS ORDERED: CEPHALEXIN 500 MG CAPSULE PO ONE (20:30)
== END 2017-05-17 20:10 | disposition home or self-care (01) ==
LOC: ER 19:03
DX: N10 Acute pyelonephritis (principal); E10.10 Type 1 diabetes mellitus with ketoacidosis without coma; K21.9 Gastro-esophageal reflux disease without esophagitis; F17.200 Nicotine dependence, unspecified, uncomplicated; F12.10 Cannabis abuse, uncomplicated; F15.10 Other stimulant abuse, uncomplicated; F11.10 Opioid abuse, uncomplicated; Z88.8 Allergy status to other drugs, medicaments and biological substances; Z88.6 Allergy status to analgesic agent; Z91.041 Radiographic dye allergy status
CPT/HCPCS: 81001; 81025; 99284

== ENCOUNTER → 2017-05-19 20:10 | Emergency (ER) | payer BC ==
[~2017-05-19 20:10] MED LIST changes: +CEPH-264 PO
[2017-05-20 02:25] VITALS: BP 112/69
== END | disposition home or self-care (01) ==
LOC: ER 20:10
DX: R73.9 Hyperglycemia, unspecified (principal); Z53.21 Procedure and treatment not carried out due to patient leaving prior to being seen by health care provider

== ENCOUNTER 2017-05-19 20:56 | Emergency (ER) | payer BC ==
[~2017-05-19] VITALS: Ht 170.2 cm; Wt 61.4 kg
[2017-05-19] MEDS ORDERED: ONDANSETRON ODT 4 MG TAB.RAPDIS PO ONE (22:15)
[2017-05-19] MEDS ORDERED: IV NORMAL SALINE 1,000ML 1,000 ML IV ONE (23:10)
[2017-05-19 23:32] LABS: CREATININE 0.7 mg/dL (0.6-1.0); GFR 101.1; POTASSIUM 4.8 mmol/L (3.5-5.1)
--- NOTE | 2017-05-20 00:27 | PHYS DOC ---
Past History Past Medical History: Depression, Diabetes, GERD Additional Past Medical Histor: pt reports several admissions for "high blood sugar" Past Surgical History: Other Smoking: Less than 1pk/day Alcohol Use: None Drug Use: Marijuana, Methamphetamine, Opiates, Other Social History Narrative: CLEAN FOR 3 MONTHS Adult General Chief Complaint Chief Complaint: NAUSEA/VOMITING/DIARRHEA HPI HPI 27-year-old female well known to our emergency medicine service for multiple visits associated with insulin noncompliance and irresponsibility as well as multiple episodes of that admission for diabetic ketoacidosis. Patient now presents to the emergency department complaining and not feeling well. She has mild tachycardia on arrival and her blood glucoses over 400. Patient denies chest pain or shortness of breath. No cough or fever. Denies abdominal pain except for her chronic abdominal pain associated with her gastroparesis. Patient does report nausea and vomiting today. Normal bowel and bladder habits. He insists that she has been taking her insulin as prescribed but that her sugar is just impossible to control Review of Systems Review of Systems Constitutional: Denies fever or chills [] Eyes: Denies change in visual acuity, redness, or eye pain [] HENT: Denies nasal congestion or sore throat [] Respiratory: Denies cough or shortness of breath [] Cardiovascular: No additional information not addressed in HPI [] GI: Denies abdominal pain, nausea, vomiting, bloody stools or diarrhea [] : Denies dysuria or hematuria [] Musculoskeletal: Denies back pain or joint pain [] Integument: Denies rash or skin lesions [] Neurologic: Denies headache, focal weakness or sensory changes [] Endocrine: Denies polyuria or polydipsia [] Current Medications Current Medications Current Medications Medications (Trade) Dose Ordered Sig/[facility] Start Time Stop Time Status Last Admin Dose Admin Insulin Human Regular (NovoLIN R) 8 unit 1X ONCE 05/20/17 00:00 05/20/17 00:01 UNV 05/20/17 00:00 8 UNIT Ondansetron HCl (Zofran Odt) 8 mg 1X ONCE 05/19/17 22:15 05/19/17 22:16 DC 05/19/17 22:15 8 MG Sodium Chloride 1,000 ml @ 1,000 mls/hr 1X ONCE 05/19/17 23:10 05/20/17 00:09 DC 05/19/17 23:10 1,000 MLS/HR Allergies Allergies Allergies Coded Allergies Type Severity Reaction Last Updated Verified acetaminophen Allergy Intermediate HIVES 11/27/16 Yes adhesive tape Allergy Intermediate 11/27/16 Yes I S O L A T I O N *CONTACT* Allergy Unknown 05/16/17 Yes Physical Exam Physical Exam Constitutional: Well developed, well nourished, no acute distress, non-toxic appearance. [] HENT: Normocephalic, atraumatic, bilateral external ears normal, oropharynx moist, no oral exudates, nose normal. [] Eyes: PERRLA, EOMI, conjunctiva normal, no discharge. [] Neck: Normal range of motion, no tenderness, supple, no stridor. [] Cardiovascular:Heart rate regular rhythm, no murmur [] Lungs & Thorax: Bilateral breath sounds clear to auscultation [] Abdomen: Bowel sounds normal, soft, no tenderness, no masses, no pulsatile masses. [] Skin: Warm, dry, no erythema, no rash. [] Back: No tenderness, no CVA tenderness. [] Extremities: No tenderness, no cyanosis, no clubbing, ROM intact, no edema. [] Neurologic: Alert and oriented X 3, normal motor function, normal sensory function, no focal deficits noted. [] Psychologic: Affect normal, judgement normal, mood normal. [] Current Patient Data Lab Results Laboratory Tests Test 05/19/17 22:30 Sodium Level 127 mmol/L (136-145) L Potassium Level 4.8 mmol/L (3.5-5.1) Chloride Level 90 mmol/L (98-107) L Carbon Dioxide Level 21 mmol/L (21-32) Anion Gap 16 (6-14) H Blood Urea Nitrogen 24 mg/dL (7-20) H Creatinine 0.7 mg/dL (0.6-1.0) Estimated GFR (Cockcroft-Gault) 101.1 Glucose Level 432 mg/dL (70-99) H Calcium Level 9.0 mg/dL (8.5-10.1) EKG EKG [] Radiology/Procedures Radiology/Procedures [] Course & Med Decision Making Course & Med Decision Making Pertinent Labs and Imaging studies reviewed. (See chart for details) Signs and symptoms consistent with insulin noncompliance in a patient with a long history of poorly controlled diabetes because of lack of insight discipline and responsibility. Patient's glucose is more than 400 however she is not acidotic vital signs are unremarkable. Her exam is benign except she has dry mucous membranes. Patient hydrated extensively. Insulin bolus given. Patient clinically improved on multiple re-exams and her glycemia substantially improved on reevaluation as well. Dry duration no further workup or treatment indicated and patient agrees with outpatient follow-up. Strict return precautions given. [] Dragon Disclaimer Dragon Disclaimer This chart was dictated in whole or in part using Voice Recognition software in a busy, high-work load, and often noisy Emergency Department environment. It may contain unintended and wholly unrecognized errors or omissions. Departure Departure: Disposition: HOME, SELF-CARE Condition: IMPROVED Referrals: DANIAL VINCENT (PCP) Patient Instructions: Correction Insulin, Dehydration, Adult, Hyperglycemia Additional Instructions: Not using your insulin as prescribed has caused your diabetes to become uncontrolled and your sugar was over 400 tonight. Hyperglycemia causes you to become very dehydrated. You did not have laboratory evidence of diabetic ketoacidosis tonight. We have hydrated U extensively but it is critically important that you use your insulin exactly as prescribed from now forward and make sure to also drink plenty of fluids. Follow-up with your doctor tomorrow. VANESSA ANGEL MD May 20, 2017 00:27
[2017-05-20] MEDS ORDERED: INSULIN REGULAR 100 UNIT/ML 10ML VIAL. IV ONE ×2 (01:00)
[2017-05-20] MEDS ORDERED: IV NORMAL SALINE 1,000ML 1,000 ML IV ONE ×2 (01:00)
[2017-05-20 02:25] VITALS: BP 112/69
[2017-05-27] MEDS ORDERED: ONDA4TAB10 SL (14:26)
== END 2017-05-20 02:30 | disposition home or self-care (01) ==
LOC: ER 20:56
DX: R11.2 Nausea with vomiting, unspecified (principal); R00.0 Tachycardia, unspecified; E11.43 Type 2 diabetes mellitus with diabetic autonomic (poly)neuropathy; G89.29 Other chronic pain; K21.9 Gastro-esophageal reflux disease without esophagitis; F17.200 Nicotine dependence, unspecified, uncomplicated; F12.10 Cannabis abuse, uncomplicated; F15.10 Other stimulant abuse, uncomplicated; F11.10 Opioid abuse, uncomplicated; Z79.4 Long term (current) use of insulin; Z91.14 Patient's other noncompliance with medication regimen; Z88.8 Allergy status to other drugs, medicaments and biological substances; Z88.6 Allergy status to analgesic agent; Z91.041 Radiographic dye allergy status
CPT/HCPCS: 36415; 80048; 82947; 96361; 96374; 99284; J1815; Q0162; J7030

== ENCOUNTER 2017-05-20 09:28 | Inpatient (IN) | payer BC ==
[2017-05-20] VITALS (14 sets, daily range): BP systolic 81–115; BP diastolic 46–82
[~2017-05-20] VITALS: Ht 170.2 cm; Wt 63.2 kg
[2017-05-20] MEDS ORDERED: IV NORMAL SALINE 1,000ML 1,000 ML IV SCH ×2 (09:47→11:13)
--- NOTE | 2017-05-20 09:47 | PHYS DOC ---
Past History Past Medical History: Depression, Diabetes, GERD Additional Past Medical Histor: pt reports several admissions for "high blood sugar" Past Surgical History: Other Smoking: Less than 1pk/day Alcohol Use: None Drug Use: Marijuana, Methamphetamine, Opiates, Other Adult General Chief Complaint Chief Complaint: nausea and vomiting HPI HPI 27-year-old female well known to our emergency medicine service for multiple visits associated with insulin noncompliance and multiple episodes of that admission for diabetic ketoacidosis. Patient now presents to the emergency department complaining and not feeling well. She has mild tachycardia on arrival and her blood glucoses over 500. Patient denies chest pain or shortness of breath. No cough or fever. Patient has chronic abdominal pain that is worsened today with nausea and vomiting described as too many to count. She describes green stringy stuff associated with vomiting without blood or mucus or blood in her stool. Patient denies any change in medications and says that she is able to take her medications but does not understand why her sugars are still high. She was seen here in our emergency department from 8 PM to 4 AM early this morning and she continues to have nausea and vomiting. Review of Systems Review of Systems Constitutional: Denies fever or chills [] Eyes: Denies change in visual acuity, redness, or eye pain [] HENT: Denies nasal congestion or sore throat [] Respiratory: Denies cough or shortness of breath [] Cardiovascular: No additional information not addressed in HPI [] GI: He continues to have nausea and vomiting without bloody stool or diarrhea. : Denies dysuria or hematuria [] Musculoskeletal: Denies back pain or joint pain [] Integument: Denies rash or skin lesions [] Neurologic: Denies headache, focal weakness or sensory changes [] Endocrine: Denies polyuria or polydipsia [] Allergies Allergies Allergies Coded Allergies Type Severity Reaction Last Updated Verified acetaminophen Allergy Intermediate HIVES 05/20/17 Yes adhesive tape Allergy Intermediate 05/20/17 Yes I S O L A T I O N *CONTACT* Allergy Unknown 05/20/17 Yes Physical Exam Physical Exam Vital signs abnormal patient very tachycardic on arrival. Constitutional: Thin patient is always him comfortable dehydrated appearance HENT: Normocephalic, atraumatic, bilateral external ears normal, dry mucous membranes no oral exudates, nose normal. [] Eyes: PERRLA, EOMI, conjunctiva normal, no discharge. [] Neck: Normal range of motion, no tenderness, supple, no stridor. [] Cardiovascular tachycardia regular rhythm no murmurs gallops or rubs. Lungs & Thorax: Bilateral breath sounds clear to auscultation [] Abdomen: Bowel sounds hyperactive. Diffuse tenderness in all active huynh with no Boudreaux's or McBurney's point specific tenderness palpation. She has voluntary guarding. Skin: Warm, dry, no erythema, no rash. [] Back: No tenderness, Extremities: No tenderness, no cyanosis, no clubbing, ROM intact, no edema. [] Neurologic: Alert and oriented X 3, normal motor function, normal sensory function, no focal deficits noted. [] Psychologic: She is very anxious actively retching upon evaluation. EKG EKG EKG timed 10:11 AM demonstrates sinus tachycardia with heart rate of 117 [place] interval is normal at 132 QRS is normal at 74 QTC is normal at [address] segment or T-wave abnormalities consistent with hyperkalemia otherwise normal looking EKG. [] Radiology/Procedures Radiology/Procedures [] Course & Med Decision Making Course & Med Decision Making Pertinent Labs and Imaging studies reviewed. (See chart for details) [] Oriented arrival patient is very dehydrated. His blood gas demonstrated pH 7.29 and a base excess of -15. Her continued nausea and vomiting and inability tolerate vacations and fluids I will admit this patient to the hospital to the ICU for suspected DKA. 10:25 AM Patient tells me that their symptoms given during CC are improved. We reviewed labs family at bedside. Demonstrates an anion gap acidosis of greater than 25 with a sugar level is within 471. She was given IV fluids, antiemetics, Haldol and Ativan which markedly improved her symptoms. Patient is noted to be in DKA with positive acetone in her blood, an anion gap acidosis as well as significant dehydration. She has a normal white count and no evidence of infection in her urine. Patient given her noncompliance will be admitted to the ICU under the care of internal medicine for reeducation. Patient will be given IV dose of insulin here at this time monitored very closely for potassium levels and given appropriate placement when needed. Museum Director note: dr. samayoa Museum Director called at of the service internal medicine called at 10:35 AM Consult called back at 10:35 AM Discussed the case I presented and they agreed with admission. Time of acceptance at 10:35 AM Impression: DKA, nausea, vomiting, abdominal pain unclear etiology, dehydration. Disposition: Admission to the hospital ICU under the care of Dr. LIAM ZAMORA. I spent approximately 45-50 minutes working and engaged directly in the patient care providing critical care evaluation this includes but not limited to time spent engaged in work directly related to the individual patients care. I spent time at the bedside, reviewing test results, discussing the case with staff, documenting the medical record and time spent with EMS discussing specific treatment issues when the patient presented and during his evaluation. Dragon Disclaimer Dragon Disclaimer This chart was dictated in whole or in part using Voice Recognition software in a busy, high-work load, and often noisy Emergency Department environment. It may contain unintended and wholly unrecognized errors or omissions. Departure Departure: Referrals: DANIAL VINCENT (PCP) SHELIA GARCÍA MD May 20, 2017 09:47
[2017-05-20] MEDS ORDERED: 0.9 % SODIUM CHLORIDE 10 ML DISP.SYRIN. IV PRN (10:00)
[2017-05-20 10:03] LABS: BASO # 0.1 x10^3/uL (0.0-0.2); BASO % 3 % (0-3); EOS # 0.1 x10^3/uL (0.0-0.7); EOS % 2 % (0-3); HEMATOCRIT 43.3 % (36.0-47.0); HEMOGLOBIN 13.7 g/dL (12.0-15.5); LYMPH # 2.3 x10^3/uL (1.0-4.8); LYMPH % 42 % (24-48); MEAN CORPUSCULAR HEMOGLOBIN 29 pg (25-35); MEAN CORPUSCULAR HGB CONC 32 g/dL (31-37); MEAN CORPUSCULAR VOLUME 90 fL (79-100); MONO # 0.5 x10^3/uL (0.0-1.1); MONO % 9 % (0-9); NEUT # 2.4 x10^3uL (1.8-7.7); NEUT % 44 % (31-73); PLATELET COUNT 308 x10^3/uL (140-400); RED BLOOD COUNT 4.82 x10^6/uL (3.50-5.40); WHITE BLOOD COUNT 5.5 x10^3/uL (4.0-11.0)
[2017-05-20 10:14] LABS: BGAS PH 7.3 (7.35-7.45)
[2017-05-20 10:15] LABS: PREG TEST PT QUAL NEGATIVE (NEG)
[2017-05-20] MEDS ORDERED: FAMOTIDINE 20 MG/2 ML VIAL IVP ONE (10:15)
[2017-05-20] MEDS ORDERED: HALOPERIDOL LACT 5 MG/ML VIAL. IVP ONE (10:15)
[2017-05-20] MEDS ORDERED: LORazepam 2 MG/ML VIAL IV ONE (10:15)
[2017-05-20] MEDS ORDERED: ONDANSETRON PF 4 MG/2 ML VIAL. IV ONE (10:15)
[2017-05-20 10:16] LABS: CREATININE 0.9 mg/dL (0.6-1.0); DIRECT BILIRUBIN 0.1 mg/dL (0.0-0.2); GFR 75.7; POTASSIUM 5.4 mmol/L (3.5-5.1); TOTAL BILIRUBIN 0.6 mg/dL (0.2-1.0); TOTAL PROTEIN 8.5 g/dL (6.4-8.2)
--- NOTE | 2017-05-20 10:19 | EKG ---
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
[2017-05-20] MEDS ORDERED: ONDANSETRON PF 4 MG/2 ML VIAL. IV PRN (10:45)
[2017-05-20] MEDS ORDERED: INSULIN REGULAR 100 UNIT/ML 10ML VIAL. IV ONE (11:00)
[2017-05-20] MEDS ORDERED: IV DEXTROSE 5 %-0.45 % NACL 1,000 ML IV SCH (11:13)
[2017-05-20] MEDS ORDERED: MAGNESIUM SULFATE 2GM 50 ML IV PRN (11:15)
[2017-05-20] MEDS ORDERED: POTASSIUM CHLORIDE 10MEQ 100 ML IV PRN ×3 (11:15)
[2017-05-20] MEDS ORDERED: INSULIN REGULAR 150 UNIT in 0.9 % SODIUM CHLORIDE 150ML 150 ML IV PRN (11:15)
[2017-05-20] MEDS ORDERED: KETOROLAC 30 MG/ML VIAL. IV PRN (11:30)
--- NOTE | 2017-05-20 11:43 | ACF ---
Admission Criteria Forms INTENSIVE CARE UNIT ADMISSION Intensive Care Admission Guidelines ( Place 'X' for any and all applicable criteria): Admission to ICU may be indicated when need is demonstrated by ANY ONE of the following (1)(2)(3)(4)(5)(6)(7)(8)(9) : [ ]I. Vital sign abnormalities, including ANY ONE of the following: [ ]a) Systolic arterial pressure less than 90 mm Hg, or 20 mm Hg below the patient's usual pressure [ ]b) Diastolic arterial pressure greater than 120 mm Hg [ ]c) Mean arterial pressure less than 70 mm Hg [A] [ ]d) Pulse less than 40 or greater than 140 beats per minute (in adult) [ ]e) Respiratory rate greater than 35 or less than 8 breaths per minute [X]II. Laboratory findings (new), including ANY ONE of the following (10): [X]a) Saturation of arterial oxygen less than 88% or partial pressure of oxygen less than 60 mm Hg (8.0 kPa) despite oxygen supplementation [ ]b) Rising partial pressure of carbon dioxide with respiratory acidosis [X]c) pH less than 7.2 or greater than 7.65 [ ]d) Serum glucose greater than 800 mg/dL (44.4 mmol/L) [ ]e) Serum sodium less than 110 mEq/L (mmol/L) or greater than 160 mEq/L (mmol/L) [ ]f) Serum potassium less than 2 mEq/L (mmol/L) or greater than 7 mEq /L (mmol/L) [ ]g) Serum calcium greater than 15 mg/dL (3.75 mmol/L) [ ]h) Serum phosphorus less than 1 mg/dL (0.32 mmol/L) [ ]i) Toxic drug level or poisoning causing or likely to cause neurologic or Hemodynamic instability [ ]j) Less severe laboratory abnormalities contributing to ANY ONE of the following: [ ]i) Seizure [ ]ii) Altered mental status [ ]iii) Muscle weakness [ ]iv) Arrhythmias [ ]v) Hemodynamic instability [ ]vi) Other significant clinical manifestations [ ]III. Electrocardiogram (or cardiac monitoring) findings, including ANY ONE of the following: [ ]a) Inherently unstable or life-threatening arrhythmia (eg, sustained ventricular tachycardia, ventricular fibrillation, asystole) [ ]b) Arrhythmia causing severe hypotension (eg, bradycardia, tachycardia) [ ]c) Complete heart block causing severe hypotension [ ]d) Other findings indicative of a need for intensive care (eg , [place]) [ ]IV.Physical findings, including ANY ONE of the following: [ ]a) Threatened airway [ ]b) Sudden altered mental status [ ]c) Repeated or prolonged seizures [ ]d) Coma [ ]e) New-onset anuria (urine output <0.1 mL/kg/hr over 4 h) [ ]f) Cyanosis (new) [ ]g) Cardiac tamponade [ ]h) Status post respiratory or cardiac arrest [ ]i) Severe richards (eg, partial thickness richards over more than 10% of body surface, third-degree richards) [ ]j) Findings consistent with abdominal emergency (eg, peritoneal signs) [ ]V.Imaging findings, such as dissecting aneurysm or ruptured viscus [ ].Specific intervention or monitoring needed, as indicated by ANY ONE of the following: [ ]a) New need for assisted ventilation, invasive or noninvasive(11) [ ]b) New need for intubation (eg, to protect airway) [ ]c) New tracheostomy (less than 48 hours old) [ ]d) Hourly vital signs or neurologic checks [ ]e) Pulmonary artery line monitoring needed [ ]f) Continuous arterial line monitoring needed [ ]g) Continuous IV vasoactive drugs [ ]h) Continuous IV antiarrhythmics [ ]i) Large volume IV fluid resuscitation (eg, greater than 6 L per day ) [ ]j) Large or rapid transfusion needs (eg, more than 6 units within 24 hours) [ ]k) High-risk IV treatment, such as bolus IV medicatns or mannitol infusion [ ]l) Acute cardiac pacing [ ]m) Intra-aortic balloon pump [ ]n) Ventricular assist device [ ]o) Cardioversion [ ]p) Pericardiocentesis [ ]q) Hemodialysis in unstable patient [ ]r) Continuous renal replacement therapy (eg, continuous veno-venous hemofiltration) [ ]s) Peritoneal dialysis initiation [ ]t) Emergency bronchoscopic therapy (eg, for hemoptysis) [ ]u) Emergency endoscopic therapy for bleeding [ ]v) Balloon tamponade for variceal bleeding [ ]w) Intracranial pressure monitoring or tissue oxygen monitoring [ ]x) Ventriculostomy monitoring [ ]y) Treatment of ongoing seizures [ ]z) Induced hypothermia or coma [ ]aa) Ongoing frequent testing and treatment for acute conditions, including ANY ONE of the following: [ ]i) Correction of severe metabolic acidosis/ alkalosis [ ]ii). Severe fluid overload [ ]iii) Cerebral edema [ ]iv) Monitoring or suctioning for respiratory insufficiency or acidosis [ ]v) Monitoring for active bleeding [ ]bb) Rapid desensitization for high-risk hypersensitivity reaction to required medication (eg, penicillin)(12) [ ]cc) Other need for treatment or monitoring not available outside the ICU [ ]VII.Cardiology diagnoses or procedures, including ANY ONE of the following (13)(14)(15)(16)(17): [ ]a) Chest pain with ANY ONE of the following: [ ]i) Hemodynamic instability [ ]ii) Suspicion of diagnoses needing ICU care (eg, aortic dissection) [ ]iii) New unstable or symptomatic arrhythmia or ECG finding (eg, ventricular tachycardia, ventricular fibrillation, advanced heart block) [ ]iv) Syncope or near-syncope [ ]v) SBP less than 100 mm Hg [ ]vi) Pulmonary edema thought to be due to ischemia [ ]vii) New or worsening mitral regurgitation murmur, S3 , or rales [ ]b) Acute AZ with complications as indicated by ANY ONE of the following: [ ]i) Persistent chest pain [ ]ii) Hemodynamic instability [ ]iii) New unstable or symptomatic arrhythmia or ECG finding (eg, ventricular tachycardia, ventricular fibrillation, advanced heart block) [ ]iv) Syncope or near-syncope [ ]v) Pulmonary edema thought to be due to ischemia [ ]vi) New or worsening mitral regurgitation murmur, S3 , or rales [ ]vii) New-onset bundle branch block [ ]viii) Hemorrhagic complication (eg, intracranial or access site bleed following thrombolysis) [ ]c) Cardiac arrhythmia or conduction defect with Hemodynamic instability [ ]d) Complication of cardiac ablation, including ANY ONE of the following(18): [ ]i) Pericardial tamponade [ ]ii) Hemodynamic instability [ ]iii) Thromboembolic stroke [ ]iv) Aortic valve injury [ ]v) Vascular injuries [ ]vi) Esophageal perforation [ ]vii) Severe arrhythmia [ ]viii) Air embolism [ ]ix) Other severe complication [ ]e) Cardiogenic shock [ ]f) Hypertensive emergency, with need for ANY ONE of the following(19): [ ]i) IV antihypertensive therapy [ ]ii) Invasive hemodynamic monitoring (eg, arterial line) [ ]g) Pericardial tamponade [ ]h) Severe heart failure, with ANY ONE of the following(15): [ ]i) Respiratory failure [ ]ii) Cardiogenic shock [ ]iii) Severe arrhythmias [ ]iv) Evidence of cardiac ischemia [ ]i Myocarditis, with ANY ONE of the following [ ]i) Hemodynamic instability [ ]ii) Respiratory failure [ ]iii) Severe arrhythmias [ ]iv) Need for cardiac assist device (eg, left ventricular assist device or extracorporeal membrane oxygenator) [ ]j) Status post cardiac arrest(20) [ ]VIII. Cardiovascular Surgery diagnoses or procedures, including ANY ONE of the following.(21)(22): [ ]a) Acute aortic dissection [ ]b) Aortic surgery for ANY ONE of the following: [ ]i) Thoracic aneurysm [ ]ii) Abdominal aneurysm with ANY ONE of the following(23): [ ]1) Emergency repair [ ]2) Severe cardiopulmonary disease [ ]3) Dialysis-dependent renal failure [ ]4) Need for IV blood pressure control [ ]5) Need for ongoing ventilatory support [ ]6) Perioperative complications, including ANY ONE of the following: [ ]A. Sustained Hemodynamic instability [ ]B. Cardiac ischemia or arrhythmia [ ]C. Hypothermia (less than 35 degrees C (95 degrees F)) [ ]D. Blood transfusion greater than 3 L [ ]iii) Aortic coarctation operative excision or repair [ ]iv) Aortofemoral or aortoiliac bypass with ANY ONE of the following: [ ]1) Continued intubation [ ]2) Hemodynamic instability [ ]3) Need for IV blood pressure control [ ]4) Severe cardiopulmonary disease [ ]c) Cardiac surgery [ ]d) Carotid endarterectomy or stent placement with ANY ONE of the following: [ ]i) Blood pressure <100/60 mm Hg or >160/90 mm Hg despite 4 h of postanesthetic management [ ]ii) New or progressive neurologic defect [ ]iii) Chest pain [ ]iv) Continued intubation [ ]v) Heart failure [ ]vi) Airway compromise by hematoma or vocal cord paralysis [ ]vi) Need for IV blood pressure control [ ]e) Heart transplant [ ]f) Infrainguinal peripheral vascular surgery with ANY ONE of the following: [ ]i) Hemodynamic instability [ ]ii) Acute complications such as persistent chest pain or respiratory distress [ ]iii) Requirement for IV antiarrhythmic or vasoactive agent [ ]iv) Requirement for pulmonary artery catheter [ ]v) Severe hypertension despite 6 hours of recovery room management [ ]g) Complications of any surgery requiring ICU intervention as indicated by ANY ONE of the following(24): [ ]i) Hemodynamic instability [ ]ii) Myocardial infarction with complications (eg, severe arrhythmia, hypotension) [ ]iii) Excessive bleeding or severe coagulopathy [ ]iv) Respiratory failure [ ]v) Renal failure [ ]vi) Airway instability or obstruction [ ]vii) Neurologic deterioration [ ]viii) Infection with likelihood of sepsis syndrome or significant fluid shifts [ ]IX.Endocrinology diagnoses or procedures, including ANY ONE of the following(25)(26): [ ]a) Adrenal crisis with Hemodynamic instability(27) [ ]b) Pheochromocytoma with ANY ONE of the following(28): [ ]i) Hypertensive crisis [ ]ii) Postoperative Hemodynamic instability [ ]iii) Need for IV vasoactive therapy [ ]iv) Need for invasive arterial or central venous pressure monitoring [ ]v) Organ ischemia [ ]c) Diabetic hyperosmolar state with obtundation or coma [ ]d) Diabetic ketoacidosis with ANY ONE of the following: [ ]i) Serum pH less than 7.10 or bicarbonate level less than 10 mEq/L (mmol/L) [ ]ii) Rapidly changing electrolytes [ ]iii) Hypotension [ ]iv) Requirement for large-volume fluid resuscitation [ ]v) Respiratory insufficiency [ ]vi) Life-threatening cardiac dysrhythmias [ ]vii) Obtundation [ ]viii) Severe precipitating condition such as sepsis, stroke, or acute AZ [ ]e) Severe hypoglycemia requiring continuous glucose infusion with frequent adjustment or glucagon infusion [ ]f) Hyperthyroidism associated with thyroid storm (also known as thyrotoxic crisis)(29) [ ]g) Myxedema with life-threatening neurologic, cardiovascular, electrolyte, or renal dysfunction(29) [ ]h) Diabetes insipidus that cannot be controlled with routine medication (30) [ ]X. Gastroenterology diagnoses or procedures, including ANY ONE of the following: [ ]a) Esophageal perforation(31) [ ]b) Severe caustic esophageal injury(31) [ ]c) Liver disease complications with ANY ONE of the following(32): [ ]i) Severe hepatic encephalopathy (eg, stage 3 (somnolent) or higher) [ ]ii) Type 1 hepatorenal syndrome [ ]iii) Other cirrhosis-associated causes of acute renal failure ( eg, severe hypovolemia, acute tubular necrosis, abdominal compartment syndrome) [ ]iv) Hemodynamic instability [ ]v) Respiratory insufficiency due to severe ascites [ ]vi) Sepsis due to spontaneous bacterial peritonitis [ ]d) Fulminant hepatic failure when aggressive intervention or transplant is anticipated (32) [ ]e) Gastrointestinal hemorrhage (upper or lower) with ANY ONE of the following(33)(34): [ ]i) Active ongoing bleeding [ ]ii) Transfusion requirement greater than 2 units of packed red cells [ ]iii) Bleeding ulcer or nonbleeding visible vessel seen on endoscopy [ ]iv) Bleeding ulcer, visible blood vessel, bleeding (or recently bleeding) esophageal varices seen on endoscopy [ ]v) Hypotension [ ]vi) Syncope [ ]vii) Coagulopathy [ ]viii) Hepatic cirrhosis [ ]ix) Abnormal mental status [ ]x) Unstable comorbid condition or end organ dysfunction [ ]xi) Ischemia due to poor perfusion [ ]xii) Need for hemodynamic monitoring (eg, for patients with heart failure or valvular disease) [ ]f) Severe pancreatitis indicated by ANY ONE of the following (35)(36): [ ]i) Requirement for aggressive fluid resuscitation [ ]ii) Life-threatening electrolyte abnormality [ ]iii) SBP less than 90 mm Hg [ ]iv) Persistent tachycardia greater than 120 beats per minute [ ]v) Patients at high risk of rapid deterioration, including ANY ONE of the following: [ ]1) Calculated [place] II score greater than 8 [ ]2) Age older than 55 years [ ]3) BMI greater than 30 [ ]4) Greater than 30% pancreatic necrosis on CT scan [ ]5) Admission hematocrit greater than 47% (0.47) [ ]vi) Organ failure as indicated by ANY ONE of the following: [ ]1) Serum creatinine greater than 1.9 mg/dL (168 micromoles/L) [ ]2) Requirement for mechanical ventilation [ ]3) Urine output less than 50 mL/hour [ ]4) Arterial partial pressure of oxygen less than 60 mm Hg (8.0 kPa) despite supplemental oxygen [ ]5) PiO2/FiO2 ratio less than 300 [ ]vii) Expanding pseudocyst [ ]viii) Infected pancreas [ ]ix) Pleural effusion [ ]x) Encephalopathy [ ]xi) Severe comorbidities [ ]XI. General Surgery diagnoses or procedures, including ANY ONE of the following (9)(24)(37): [ ]a) Acute abdominal catastrophe (eg, ischemic bowel, perforated viscus, abdominal compartment syndrome) [ ]b) Complications of any surgery requiring ICU intervention as indicated by ANY ONE of the following: [ ]i) Hemodynamic instability [ ]ii) [place] with complications (eg, severe arrhythmia, hypotension) [ ]iii) Excessive bleeding or severe coagulopathy [ ]iv) Respiratory failure [ ]v) Renal failure [ ]vi) Airway instability or obstruction [ ]vii) Neurologic deterioration [ ]viii) Infection with likelihood of sepsis syndrome or significant fluid shifts [ ]c) Multiple trauma with complicating features as indicated by ANY ONE of the following(38): [ ]i) Impending acute respiratory failure due to lung contusion, unstable chest wall, aspiration, or hemorrhage [ ]ii) Facial or neck injury threatening airway patency [ ]iii) Cardiac contusion [ ]iv) Pericardial effusion [ ]v) Bronchial tear [ ]vi) Hemodynamic instability [ ]vii) Rhabdomyolisis requiring large volume IV fluid resuscitation [ ]viii)Other significant complicating feature [ ]d) Organ transplant(39)(40) [ ]e) Esophagectomy(31) [ ]f) Whipple procedure [ ]g) Preoperative or postoperative patients requiring ICU intervention, such as hemodynamic optimization, pulmonary artery monitoring, mechanical ventilation, or extensive nursing care [ ]h) Obesity surgery patients with ANY ONE of the following(41): [ ]i) ICU management needs for comorbid conditions, such as sleep apnea or airway management needs [ ]ii) Failed postoperative extubation [ ]iii) Intraoperative complications [ ]XII. Nephrology diagnoses or procedures, including acute, or acute on chronic renal insufficiency with ANY ONE of the following(44)(45): [ ]a) Life-threatening electrolyte or acid-base disorder [ ]b) Acute pulmonary edema [ ]c) Hypotension or significant volume depletion [ ]d) Hypertensive emergency [ ]e) Underlying critical illness contributing to renal failure (eg, septic shock, hepatorenal syndrome) [ ]f) Need for continuous renal replacement therapy [ ]XIII. Neurology diagnoses or procedures, including ANY ONE of the following (46)(47) [B] : [ ]a) Intracranial hypertension requiring ANY ONE of the following(49 ): [ ]i) Induced barbiturate coma [ ]ii) Pharmacologic paralysis or deep sedation and mechanical ventilation [ ]iii) Intracranial pressure or cerebral perfusion pressure monitoring [ ]iv) IV mannitol or hypertonic saline [ ]v) Frequent serum osmolality measurements [ ]b) Seizures with ANY ONE of the following(50): [ ]i) Status epilepticus [ ]ii) Airway compromise requiring or likely to require mechanical ventilation [ ]iii) Severe electrolyte abnormalities causing seizures [ ]c) Progressive acute neurologic dysfunction requiring or likely to require ANY ONE of the following: [ ]i) Mechanical ventilation [ ]ii) Intracranial pressure or cerebral perfusion pressure monitoring [ ]d) Meningitis with obtundation or respiratory insufficiency [C])(51 ) [ ]e) Stroke with ANY ONE of the following(52)(53): [ ]i) Need for observation after thrombolysis [ ]ii) Altered mental status [ ]iii) Need for mechanical ventilation [ ]iv) Elevated intracranial pressure [ ]v) Hypertensive emergency [ ]vi) High risk of progressive infarction or deterioration based on CT scan or MRI [ ]vii) Hemorrhage [ ]f) Acute coma [ ]g) Acute spontaneous intracranial hemorrhage(53)(54) [ ]h) Drug ingestion with ANY ONE of the following(56)(57): [ ]i) Hemodynamic instability [ ]ii) Respiratory depression (partial pressure of carbon dioxide >45 mm Hg (6.0 kPa), new) [ ]iii) Patient requires or is likely to require mechanical ventilation. [ ]iv) Arrhythmias [ ]v) Seizures [ ]vi) Altered mental status ([place] coma scale score less than 12, new) [ ]vii) Significant risk for acute deterioration (eg, toxic level of hypotension or arrhythmia-producing drug) [ ]viii) Drug-induced hypothermia or hyperthermia [ ]ix) Increasing metabolic acidosis [ ]x) Severe hypoglycemia requiring glucose infusion with frequent adjustment or glucagon administration [ ]xi) Ongoing antidote administration (eg, continuous naloxone infusion, organophosphate toxicity treatment) [ ]xii) Emergency intervention need (eg, dialysis, hemoperfusion, restraints) [ ]i) Brain with preparation for organ donation [ ]j) Traumatic brain injury with ANY ONE of the following(55): [ ]i) Altered mental status (eg, new onset [place] coma scale score less than 10) [ ]ii) Cerebral edema [ ]iii) Cerebral hemorrhage [ ]iv) Increased intracranial pressure [ ]XIV. Neurosurgery diagnoses or procedures, including ANY ONE of the following(49)(58)(59): [ ]a) Emergency craniotomy for tumor, hematoma, or trauma [ ]b) Elective craniotomy for posterior fossa tumor [ ]c) Elective craniotomy (supratentorial) for tumor with ANY ONE of the following: [ ]i) Postoperative neurologic deficit or impaired consciousness 6 hours after completion of procedure [ ]ii) SBP less than 110 mm Hg or greater than 180 mm Hg despite therapy [ ]iii) Extensive operative blood loss [ ]iv) High anesthesia risk (eg, [place] [employer] anesthesiologists score greater than 3 [ ]d) Craniotomy for aneurysm with ANY ONE of the following: [ ]i) Postoperative neurologic deficit or impaired consciousness 6 hours after completion of procedure [ ]ii) Preoperative [place] grade 3 or higher [ ]iii) SBP less than 110 mm Hg or greater than 180 mm Hg despite therapy [ ]iv) Intracranial pressure monitoring [ ]e) Acute spinal cord injury [ ]f) Subarachnoid hemorrhage [ ]g) Traumatic brain injury with ANY ONE of the following: [ ]i) Acute mental status change ([place] coma scale score less than 10) [ ]ii) CT scan showing cerebral edema or hemorrhage [ ]iii) Intracranial pressure monitoring [ ]h) Complications of any surgery requiring ICU intervention as indicated by ANY ONE of the following(60): [ ]i) Hemodynamic instability [ ]ii) [place] with complications (eg, severe arrhythmia, hypotension) [ ]iii) Excessive bleeding or severe coagulopathy [ ]iv) Respiratory failure [ ] v) Renal failure [ ]vi) Airway instability or obstruction [ ]vii) Neurologic deterioration [ ]viii) Infection with likelihood of sepsis syndrome or significant fluid shifts [ ]i) Preoperative or postoperative patients requiring ICU intervention, such as hemodynamic optimization, pulmonary artery monitoring, mechanical ventilation, or extensive nursing care [ ]XV.Obstetrics and Gynecology diagnoses or procedures, including ANY ONE of the ffg. (61)(62)(63): [ ]a) Severe peripartum condition as indicated by ANY ONE of the following: [ ]i) Eclampsia [ ]ii) Hypertensive emergency [ ]iii) HELLP syndrome (hemolysis, elevated liver enzymes, and low platelet count) [ ]iv) Pulmonary edema [ ]v) Respiratory failure [ ]vi) Pulmonary embolism [ ]vii) Anaphylactoid syndrome of (amniotic fluid embolus) [ ]viii) Ovarian hyperstimulation syndrome [D] [ ]ix) Acute fatty liver of (hepatic failure) [ ]x) Complications such as placental abruption or severe hemorrhage [ ]xi) Sepsis (eg, puerperal sepsis, chorioamnionitis, septic ) [ ]xii) cardiomyopathy with severe congestive heart failure (eg, respiratory failure, cardiogenic shock) [ ]b) Ruptured ectopic [ ]c) Complications of any surgery requiring ICU intervention as indicated by ANY ONE of the following: [ ]i) Hemodynamic instability [ ]ii) [place] with complications (eg, severe arrhythmia, hypotension) [ ]iii) Excessive bleeding or severe coagulopathy [ ]iv) Respiratory failure [ ]v) Renal failure [ ]vi) Airway instability or obstruction [ ]vii) Neurologic deterioration [ ]viii) Infection with likelihood of sepsis syndrome or significant fluid shifts [ ]d) Preoperative or postoperative patients requiring ICU intervention , such as hemodynamic optimization, pulmonary artery monitoring, mechanical ventilation, or extensive nursing care [ ]XVI.Ophthalmology diagnoses or procedures, including ANY ONE of the following (64): [ ]a) Complications of any surgery requiring ICU intervention, such as ANY ONE of the following: [ ]i) Hemodynamic instability [ ]ii) [place] with complications (eg, severe arrhythmia, hypotension) [ ]iii) Excessive bleeding or severe coagulopathy [ ]iv) Respiratory failure [ ]v) Renal failure [ ]vi) Airway instability or obstruction [ ]vii) Neurologic deterioration [ ]viii) Infection with likelihood of sepsis syndrome or significant fluid shifts [ ]b) Preoperative or postoperative patients requiring ICU intervention , such as hemodynamic optimization, pulmonary artery monitoring, mechanical ventilation, or extensive nursing care [ ]XVII.Orthopedics diagnoses or procedures, including ANY ONE of the following [phone]): [ ]a) Complications of any surgery requiring ICU intervention as indicated by ANY ONE of the following: [ ]i) Hemodynamic instability [ ]ii) [place] with complications (eg, severe arrhythmia, hypotension) [ ]iii) Excessive bleeding or severe coagulopathy [ ]iv) Respiratory failure [ ]v) Renal failure [ ]vi) Airway instability or obstruction [ ] vii) Neurologic deterioration [ ]viii) Infection with likelihood of sepsis syndrome or significant fluid shifts [ ]b) Multiple trauma with complicating features as indicated by ANY ONE of the following(38): [ ]i) Impending acute respiratory failure due to lung contusion, unstable chest wall, pneumothorax, aspiration, or hemorrhage [ ]ii) Facial or neck injury threatening airway patency [ ]iii) Cardiac contusion [ ]iv) Rhabdomyolysis requiring large volume IV fluid resuscitation [ ]v) Pericardial effusion [ ]vi) Bronchial tear [ ]vii) Hemodynamic instability [ ]viii) Other significant complicating feature [ ]c) Threatened compartment syndrome [ ]d) Severe richards with ANY ONE of the following(68)(69)(70): [ ]i) Hypotension or requirement for aggressive fluid resuscitation [ ]ii) Respiratory insufficiency with requirement for high- flow oxygen or mechanical ventilation [ ]iii) Carbon monoxide poisoning [ ]iv) Life-threatening cardiac, renal, pulmonary, or neurologic dysfunction [ ]v) High-voltage (eg, 1000 volts or more) electrical burn [ ]vi) Requirement for frequent or intensive debridement and dressing changes; examples include: [ ]1) Partial thickness richards greater than 10% of body surface [ ]2) Richards on face, hands, feet, genitalia, perineum , or major joints [ ]3) Third-degree richards [ ]4) Any burn greater than 15% of body surface area [ ]vii) Inhalation lung injury [ ]viii) Concomitant trauma or other medical condition requiring ICU care [ ]e) Preoperative or postoperative patients requiring ICU intervention , such as hemodynamic optimization, pulmonary artery monitoring, mechanical ventilation, or extensive nursing care [ ]XVIII.Otolaryngology diagnoses or procedures, including ANY ONE of the following (71)(72): [ ]a) Complications of any surgery requiring ICU intervention as indicated by ANY ONE of the following: [ ]i) Hemodynamic instability [ ]ii) [place] with complications (eg, severe arrhythmia, hypotension) [ ]iii) Excessive bleeding or severe coagulopathy [ ]iv) Respiratory failure [ ]v) Renal failure [ ]vi) Airway instability or obstruction [ ]vii) Neurologic deterioration [ ]viii) Infection with likelihood of sepsis syndrome or significant fluid shifts [ ]b) Airway or hemodynamic compromise that persists after 3 hours of observation in postanesthesia care unit following nasal, palate (eg, uvulopalatopharyngoplasty or palatoplasty), or tongue surgery for sleep apnea [ ]c) Preoperative or postoperative patient requiring ICU intervention, such as hemodynamic optimization, pulmonary artery monitoring, mechanical ventilation, or extensive nursing care [ ]d) Symptomatic upper airway compromise (eg, laryngeal edema, mass) [ ]e) Other airway-compromising procedure (eg, posterior nasal packing) [ ]XIX.Thoracic Surgery and Pulmonary Disease Diagnosis or procedures, including ANY ONE of the following(6): [ ]a) Asthma with ANY ONE of the following(73)(74): [ ]i) Impending or actual respiratory arrest [ ]ii) Need for mechanical ventilation [ ]iii) Peak expiratory flow rate less than 30% of predicted or personal best [ ]iv) Peak expiratory flow rate or FEV1 less than 40% predicted after 1 hour of initial treatment [ ]v) Acidosis [ ]vi) Persistent or worsening hypoxia after initial treatment [ ]vii) Hypercapnia (eg, partial pressure of carbon dioxide greater than 43 mm Hg (5.7 kPa)) [ ]viii) Severe drowsiness, confusion, or coma [ ]ix) Requiring continuous inhaled bronchodilator [ ]b) COPD with ANY ONE of the following(75): [ ]i) Need for assisted ventilation [ ]ii) Hemodynamic instability [ ]iii) Severe dyspnea unresponsive to initial treatment [ ]iv) Change in level of consciousness [ ]v) Persistent findings despite oxygen and outpatient management, including ANY ONE of the following: [ ]1) Partial pressure of oxygen less than 40 mm Hg ( 5.3 kPa) [ ]2) Partial pressure of carbon dioxide greater than 60 mm Hg (8.0 kPa) [ ]3) pH less than 7.25 [ ]4) Worsening hypoxemia or acidosis [ ]c) Cor pulmonale with ANY ONE of the following(75)(76)(77): [ ]i) Hemodynamic instability [ ]ii) Need for IV inotropic or vasoactive agent [ ]iii) Need for invasive hemodynamic monitoring (eg, central venous, pulmonary artery, or arterial catheter) [ ]iv) Hypoxemia with partial pressure of oxygen less than 40 mm Hg (5.3 kPa) [ ]v) Worsening hypoxemia or acidosis despite oxygen therapy [ ]vi) Need for assisted ventilation [ ]vii) Need for right ventricular assist device [ ]viii) Unstable atrial tachyarrhythmia [ ]ix) Need for inhaled nitric oxide [ ]d) Aspiration pneumonia with ANY ONE of the following(78): [ ]i) Acute respiratory distress syndrome (PaO2/FiO2 ratio of 300 or less) [ ]ii) Impending or actual respiratory arrest [ ]iii) Need for invasive or noninvasive mechanical ventilation [ ]e) Pneumocystis jiroveci pneumonia with ANY ONE of the following(79): [ ]i) Impending or actual respiratory arrest [ ]ii) Hypoxia (eg, PO260 mmGh (8.0 kPa) or less despite oxygen therapy) [ ]iii) Need for invasive or noninvasive mechanical ventilation [ ]f) Pneumonia with ANY ONE of the following(80)(81)(82): [ ]i) Need for invasive or noninvasive assisted ventilation [ ]ii) Hemodynamic instability [ ]iii) Severity factors as indicated by 3 or MORE of the following: [ ]1) Respiratory rate 30 breaths per minute or greater [ ]2) PaO2/FiO2 ratio of 250 or less [ ]3) Multilobed infiltrates [ ]4) Altered mental status [ ]5) BUN 20 mg/dL (7.1 mmol/L) or greater [ ]6) WBC count less than 4000/mm3 (4 x109/L) [ ]7) Platelet count <100,000/mm3 (100 x109/L) [ ]8) Temperature less than 36 degrees C (96.8 degrees F ) [ ]9) Hypotension requiring aggressive fluid resuscitation [ ]g) Pulmonary hypertension requiring initiation of parenteral pulmonary vasodilator or trial of inhaled nitric oxide (eg, need for right heart catheterization)(76) [ ]h) Impending respiratory failure as indicated by ANY ONE of the following: [ ]i) Respiratory rate greater than 30 or partial pressure of oxygen less than 60 mm Hg (8.0 kPa) on 50% oxygen or more [ ]ii) Partial pressure of carbon dioxide greater than 45 mm Hg (6.0 kPa) with pH less than 7.35 [ ]i) Respiratory failure with ANY ONE of the following (47): [ ]i) Need for invasive or noninvasive mechanical ventilation [ ]ii) High likelihood of requiring mechanical ventilation within 24 hours [ ]iii) Observation in the first several hours immediately after extubation from mechanical ventilation [ ]iv) Need for close observation and aggressive therapy, such as suctioning, chest physiotherapy, or inhalation treatments at intervals less than 1 hour [ ]v) Pharmacologic ventilatory paralysis [ ]j) Venous thromboembolism with need for systemic or catheter- directed thrombolysis (eg, for limb-threatening thrombosis, phlegmasia cerulea dolens) (83) [ ]k) Pulmonary embolus with ANY ONE of the following(83): [ ]i) Hypotension [ ]ii) Severe hypoxia [ ]iii) Dangerous arrhythmia [ ]iv) Bleeding [ ]v) Need for systemic or catheter-directed thrombolysis [ ]l) Lobectomy or other major thoracic surgery [ ]m) Lung transplant [ ]n) Symptomatic upper airway obstruction (eg, laryngeal edema, mass) [ ]o) Massive hemoptysis [ ]p) Infection or thrombosis of an intravenous device with ANY ONE of the following(6)(84): [ ]i) Hemodynamic instability [ ]ii) Requirement for frequent hemodynamic measurements [ ]iii) Shock [ ]iv) End organ dysfunction [ ] v) Acute renal failure due to missed dialysis [ ]vi) Unstable acute complication (eg, pericardial tamponade , tension pneumothorax) [ ]q) Traumatic rib fracture or fractures with ANY ONE of the following(85): [ ]i) Injury severity score of 19 or greater [ ]ii) Respiratory insufficiency [ ]iii) Flail chest [ ]iv) Sternum fracture [ ]v) Vascular injury (eg, heart or great vessels) [ ]r) Pleural effusion with ANY ONE of the following(86): [ ]i) Respiratory insufficiency [ ]ii) Hemothorax with active ongoing bleeding [ ]iii) Hemodynamic instability [ ]iv) Unstable comorbid condition (eg, sepsis or heart failure [ ]XX. Urology diagnoses or procedures, including ANY ONE of the following ( 87)(88): [ ]a) Renal transplant [ ]b) Complications of any surgery requiring ICU intervention as indicated by ANY ONE of the following: [ ]i) Hemodynamic instability [ ]ii) [place] with complications (eg, severe arrhythmia, hypotension) [ ]iii) Excessive bleeding or severe coagulopathy [ ]iv) Respiratory failure [ ]v) Renal failure [ ]vi) Airway instability or obstruction [ ]vii) Neurologic deterioration [ ]viii) Infection with likelihood of sepsis syndrome or significant fluid shifts [ ]c) Preoperative or postoperative patients requiring ICU intervention , such as hemodynamic optimization, pulmonary artery monitoring, mechanical ventilation , or extensive nursing care [ ]XXI.Infectious Disease diagnoses or procedures, with ANY ONE of the following (6)(43): [ ]a) Hemodynamic instability [ ]b) Shock [ ]c) Requirement for frequent hemodynamic measurements (eg, arterial catheter, pulmonary artery catheter) [ ]d) Sepsis or suspected sepsis with end organ dysfunction (eg, acute kidney injury, acute respiratory distress syndrome) [ ]e) Necrotizing soft tissue infection [ ] XXII.Hematology - Oncology diagnoses or procedures, including chemotherapy administration with ANY ONE of the following(42): [ ]a) Hemodynamic instability [ ]b) Tumor lysis syndrome with ANY ONE of the following : [ ]1) Acute kidney injury [ ]2) Severe electrolyte abnormality [ ]3) Cardiac dysrhythmia [ ]XXIII. Systemic conditions, including ANY ONE of the following: [ ]a) Severe electrolyte or metabolic disturbance causing or likely to cause ANY ONE of the following(10)(89)(90): [ ]i) Life-threatening cardiac dysrhythmia [ ]ii) Respiratory insufficiency [ ]iii) Altered mental status [ ]iv) Seizures [ ]v) Hemodynamic instability [ ]vi) Muscular weakness [ ]b) Environmental injuries such as hypothermia, hyperthermia, electrical injuries, or near drowning(70)(91)(92) The original [employer] content created by [employer] has been revised. The portions of the content which have been revised are identified through the use of italic text or in bold, and [facility] has neither reviewed nor approved the modified material. All other unmodified content is copyright [employer]. Please see references footnoted in the original [facility] [employer] edition 2016 Admission Criteria Met?: Yes ASHISH LICEA May 20, 2017 11:43
[2017-05-20] MEDS: METOCLOPRAMIDE HCL 10 MG/2 ML VIAL. IV SCH ×2 (12:07→18:00)
[2017-05-20 15:00] LABS: CALCIUM 8.1 mg/dL (8.5-10.1); CREATININE 0.8 mg/dL (0.6-1.0); GFR 86.7; POTASSIUM 4.5 mmol/L (3.5-5.1)
[2017-05-20] MEDS: POTASSIUM CL 20MEQ D5-0.45NACL 1,000 ML IV SCH ×2 (15:24→20:30)
[2017-05-20 18:17] LABS: CALCIUM 7.7 mg/dL (8.5-10.1); POTASSIUM 4.6 mmol/L (3.5-5.1)
[2017-05-20 22:20] LABS: CREATININE 0.9 mg/dL (0.6-1.0); GFR 75.7; POTASSIUM 3.9 mmol/L (3.5-5.1)
[2017-05-21] VITALS (18 sets, daily range): BP systolic 94–137; BP diastolic 63–86
[2017-05-21] MEDS: POTASSIUM CL 20MEQ D5-0.45NACL 1,000 ML IV SCH ×3 (00:59→14:07)
[2017-05-21 05:42] LABS: BASO # 0.1 x10^3/uL (0.0-0.2); BASO % 1 % (0-3); EOS # 0.2 x10^3/uL (0.0-0.7); EOS % 4 % (0-3); HEMATOCRIT 32.3 % (36.0-47.0); HEMOGLOBIN 10.9 g/dL (12.0-15.5); LYMPH # 2.8 x10^3/uL (1.0-4.8); LYMPH % 54 % (24-48); MEAN CORPUSCULAR HEMOGLOBIN 29 pg (25-35); MEAN CORPUSCULAR HGB CONC 34 g/dL (31-37); MEAN CORPUSCULAR VOLUME 86 fL (79-100); MONO # 0.5 x10^3/uL (0.0-1.1); MONO % 9 % (0-9); NEUT # 1.6 x10^3uL (1.8-7.7); NEUT % 32 % (31-73); PLATELET COUNT 264 x10^3/uL (140-400); RED BLOOD COUNT 3.75 x10^6/uL (3.50-5.40); WHITE BLOOD COUNT 5.2 x10^3/uL (4.0-11.0)
[2017-05-21 05:49] LABS: CREATININE 0.7 mg/dL (0.6-1.0); GFR 101.1; POTASSIUM 3.7 mmol/L (3.5-5.1)
[2017-05-21] MEDS: METOCLOPRAMIDE HCL 10 MG/2 ML VIAL. IV SCH ×3 (06:00→12:06)
[2017-05-21] MEDS ORDERED: INSULIN ASPART 300 UNITS/3 ML INSULN.PEN SQ SCH ×2 (08:15→08:30)
[2017-05-21] MEDS ORDERED: DEXTROSE 50% 25 GM / 50ML DISP.SYRIN. IV PRN (08:30)
[2017-05-21] MEDS ORDERED: INSULIN DETEMIR 300 UNITS/3 ML INSULN.PEN. SQ SCH (09:00)
[2017-05-21] MEDS ORDERED: guaiFENesin DM 600/30MG 1 TAB TAB.ER.12H PO SCH (09:00)
[2017-05-21] MEDS ORDERED: INSULIN ASPART 300 UNITS/3 ML INSULN.PEN SQ ONE (09:45)
--- NOTE | 2017-05-21 13:23 | PDOC1 ---
History of Present Illness Reason for Visit: DKA History of Present Illness 27 -year-old female with reported poorly controlled type 1 diabetes who presented to the emergency room with hyperglycemia and was found again to be in DKA. She has had multiple admissions too numerous to count over the last several years. On her last visit she had a relapse was positive for methamphetamine. Apparently a drug screen was not done today. She was just discharged from the hospital couple of days ago. Chief Complaint: NAUSEA/VOMITING/DKA Allergies: Coded Allergies: acetaminophen (Verified Allergy, Intermediate, HIVES, 05/20/17) "WHEN I HAD MY ANKLE BX THEY GAVE ME TYLENOL AND I GOT HIVES ON MY LEG." adhesive tape (Verified Allergy, Intermediate, 05/20/17) I S O L A T I O N *CONTACT* (Verified Allergy, Unknown, 05/20/17) +MRSA nares 05-15-17 Past Medical History Cardiac: No pertinent hx Pulmonary: No pertinent hx GI: Other (gastroparesis) Heme/Onc: Other (normochromic, normocytic anemia, chronic hypomagnesemia) Psych: Other (adjustment disorder) Musculoskeletal: Other (myalgias) Past Surgical History: Other (lytr-[id number]-lsah-removed due to infection) Family History: No pertinent hx Past Social History Occupation: unemployed Alcohol: none Drugs: Crystal meth Lives: with Family Review of Systems Review Of Systems Fourteen system , review of systems has been reviewed. See HPI for pertinent positives and negative responses, other bustos all other systems are negative, non pertinent or non contributory Constitutional: Weakness, Malaise Eyes: Yes: Blurry vision ENT: YES: Nose discharge, Nose congestion Respiratory: YES: Cough Cardiovascular: No: Chest Pain, Palpitations, Orthopnea, Paroxysmal Noc. Dyspnea, Edema, Lt Headedness Gastrointestinal: YES: Nausea, Vomiting, Abdominal Pain Musculoskeletal: YES: Muscle Pain SKIN: YES: Warm, Dry, No Rashes, No: Cool, Diaphoretic, Cyanotic, Rash Allergies: Coded Allergies: acetaminophen (Verified Allergy, Intermediate, HIVES, 05/20/17) "WHEN I HAD MY ANKLE BX THEY GAVE ME TYLENOL AND I GOT HIVES ON MY LEG." adhesive tape (Verified Allergy, Intermediate, 05/20/17) I S O L A T I O N *CONTACT* (Verified Allergy, Unknown, 05/20/17) +MRSA nares 05-15-17 Medications Current Medications Sodium Chloride 1,000 ml @ 1,000 mls/hr Q1H IV Last administered on 05/20/17 09:47; Start 05/20/17 at 09:47; Stop 05/20/17 at 10:46; Status DC Sodium Chloride (Normal Saline Flush) 10 ml QSHIFT PRN IV AFTER MEDS AND BLOOD DRAWS; Start 05/20/17 at 10:00 Ondansetron HCl (Zofran) 4 mg 1X ONCE IV Last administered on 05/20/17 10:10; Start 05/20/17 at 10:15; Stop 05/20/17 at 10:16; Status DC Famotidine (Pepcid) 20 mg 1X ONCE IVP Last administered on 05/20/17 10:10; Start 05/20/17 at 10:15; Stop 05/20/17 at 10:16; Status DC Haloperidol Lactate (Haldol) 5 mg 1X ONCE IVP Last administered on 05/20/17 10 :10; Start 05/20/17 at 10:15; Stop 05/20/17 at 10:16; Status DC Lorazepam (Ativan) 2 mg 1X ONCE IV Last administered on 05/20/17 10:09; Start 05/20/17 at 10:15; Stop 05/20/17 at 10:16; Status DC Insulin Human Regular (NovoLIN R) 10 unit 1X ONCE IV Last administered on 10:51; Start 05/20/17 at 11:00; Stop 05/20/17 at 11:01; Status DC Ondansetron HCl (Zofran) 4 mg PRN Q4HRS PRN IV NAUSEA/VOMITING; Start 05/20/17 at 10:45; Stop 05/21/17 at 10:44; Status DC Sodium Chloride 1,000 ml @ 0 mls/hr Q0M IV Last administered on 05/20/17 11:46 ; Start 05/20/17 at 11:13 Dextrose/Sodium Chloride 1,000 ml @ 0 mls/hr Q0M IV ; Start 05/20/17 at 11:13; Stop 05/20/17 at 15:24; Status DC Insulin Human Regular 150 unit/ Sodium Chloride 151.5 ml @ 0 mls/hr CONT PRN PRN IV PER PROTOCOL Last administered on 05/20/17 11:57; Start 05/20/17 at 11:15 ; Stop 05/21/17 at 08:03; Status DC Potassium Chloride 100 ml @ 100 mls/hr PRN Q1HR PRN IV SEE COMMENTS Last administered on 05/21/17 10:50; Start 05/20/17 at 11:15 Potassium Chloride 100 ml @ 100 mls/hr PRN Q1HR PRN IV SEE COMMENTS; Start 05/20/17 at 11:15 Potassium Chloride 100 ml @ 100 mls/hr PRN Q1HR PRN IV SEE COMMENTS; Start 05/20/17 at 11:15 Magnesium Sulfate 50 ml @ 25 mls/hr PRN Q2HR PRN IV MG LEVEL < 1.8; Start at 11:15 Ketorolac Tromethamine (Toradol) 30 mg PRN Q6HRS PRN IV PAIN; Start 05/20/17 at 11:30; Stop 05/25/17 at 11:29 Metoclopramide HCl (Reglan) 10 mg Q6HRS IV Last administered on 05/21/17 12:06 ; Start 05/20/17 at 12:00 Potassium Chloride/Dextrose/ Sod Cl 1,000 ml @ 175 mls/hr Q5H43M IV Last administered on 05/21/17 06:09; Start 05/20/17 at 15:15 Guaifenesin (MUCINEX ER with DM) 1 tab BID PO Last administered on 05/21/17 09: 11; Start 05/21/17 at 09:00 Insulin Aspart (NovoLOG) follow instructions given PRN BFRMEAL SQ ; Start at 08:15; Stop 05/21/17 at 08:25; Status DC Insulin Detemir (Levemir) 15 units BID SQ Last administered on 05/21/17 08:35; Start 05/21/17 at 09:00 Insulin Aspart (NovoLOG) 0-9 UNITS PRN BFRMEALHC SQ ; Start 05/21/17 at 08:30 Dextrose 12.5 gm PRN Q15MIN PRN IV SEE COMMENTS; Start 05/21/17 at 08:30 Insulin Aspart (NovoLOG) 10 units 1X ONCE SQ Last administered on 05/21/17 09: 37; Start 05/21/17 at 09:45; Stop 05/21/17 at 09:46; Status DC Active Scripts Active Keflex (Cephalexin) 500 Mg Capsule 1 Cap PO TID Pantoprazole Sodium 40 Mg Tablet.dr 40 Mg PO DAILYAC Escitalopram Oxalate 5 Mg Tablet 5 Mg PO DAILY Novolog Flexpen (Insulin Aspart) 100 Unit/1 Ml Insuln.pen 14 Unit SQ QIDAFTMEAL Magnesium Oxide 400 Mg Tablet 1 Tab PO TID Metoclopramide Hcl 5 Mg Tablet 10 Mg PO QIDACHS Novolog Flexpen (Insulin Aspart) 100 Unit/1 Ml Insuln.pen 0-9 Unit SQ ACHS FOLLOW SUPPLEMENTAL SCALE GIVEN TO YOU Reported Levemir (Insulin Detemir) 100 Unit/1 Ml Vial 15 Unit SQ BID Exam Vital Signs Vital Signs Date Time Temp Pulse Resp B/P (MAP) Pulse Ox O2 Delivery O2 Flow Rate FiO2 05/21/17 13:06 112 19 106/71 (83) 97 Room Air 05/21/17 11:04 97.9 General Appearance: moderate distress HEENT: Mucous membr. moist/pink (mucous membranes dry) Respiratory: Clear to auscultation, Other (cough noted) Heart: Regular rate, Normal S1, Normal S2, No murmurs Abdominal: Other Extremities: No clubbing, No cyanosis, No edema, Normal pulses, No tenderness/ swelling Skin: No rashes, No breakdown, No significant lesion Psych/Mental Status: Other (sleepy but arousable) Assessment/Plan Assessment/Plan #1 diabetic humeral acidosis #2 poorly controlled type 1 diabetes 3 recurrent methamphetamine abuse #4 dehydration #5 chronic hypomagnesemia #6 adjustment disorder #7 gastroparesis- severe #8 URI Plan: Aggressive fluid resuscitation, insulin drip, poor goal for pain, avoid the use of narcotics, replace her electrolyte imbalance, Mucinex. COURSE Allergies Coded Allergies Type Severity Reaction Last Updated Verified acetaminophen Allergy Intermediate HIVES 05/20/17 Yes adhesive tape Allergy Intermediate 05/20/17 Yes I S O L A T I O N *CONTACT* Allergy Unknown 05/20/17 Yes Laboratory Tests Test 05/20/17 13:51 05/20/17 14:42 05/20/17 14:57 05/20/17 15:59 Glucose (Fingerstick) 142 mg/dL (70-99) 176 mg/dL (70-99) 100 mg/dL (70-99) Sodium Level 138 mmol/L (136-145) Potassium Level 4.5 mmol/L (3.5-5.1) Chloride Level 105 mmol/L (98-107) Carbon Dioxide Level 18 mmol/L (21-32) Anion Gap 15 (6-14) Blood Urea Nitrogen 23 mg/dL (7-20) Creatinine 0.8 mg/dL (0.6-1.0) Estimated GFR (Cockcroft-Gault) 86.7 Glucose Level 112 mg/dL (70-99) Calcium Level 8.1 mg/dL (8.5-10.1) Test 05/20/17 17:00 05/20/17 18:02 05/20/17 18:03 05/20/17 19:01 Glucose (Fingerstick) 156 mg/dL (70-99) 277 mg/dL (70-99) 231 mg/dL (70-99) Sodium Level 136 mmol/L (136-145) Potassium Level 4.6 mmol/L (3.5-5.1) Chloride Level 102 mmol/L (98-107) Carbon Dioxide Level 19 mmol/L (21-32) Anion Gap 15 (6-14) Blood Urea Nitrogen 22 mg/dL (7-20) Creatinine 1.0 mg/dL (0.6-1.0) Estimated GFR (Cockcroft-Gault) 67.0 Glucose Level 251 mg/dL (70-99) Calcium Level 7.7 mg/dL (8.5-10.1) Test 05/20/17 19:57 05/20/17 21:00 05/20/17 21:59 05/20/17 22:00 Glucose (Fingerstick) 207 mg/dL (70-99) 146 mg/dL (70-99) 74 mg/dL (70-99) Sodium Level 138 mmol/L (136-145) Potassium Level 3.9 mmol/L (3.5-5.1) Chloride Level 105 mmol/L (98-107) Carbon Dioxide Level 25 mmol/L (21-32) Anion Gap 8 (6-14) Blood Urea Nitrogen 19 mg/dL (7-20) Creatinine 0.9 mg/dL (0.6-1.0) Estimated GFR (Cockcroft-Gault) 75.7 Glucose Level 79 mg/dL (70-99) Calcium Level 8.0 mg/dL (8.5-10.1) Test 05/20/17 23:01 05/21/17 00:01 05/21/17 01:02 05/21/17 02:01 Glucose (Fingerstick) 211 mg/dL (70-99) 158 mg/dL (70-99) 155 mg/dL (70-99) 113 mg/dL (70-99) Test 05/21/17 03:05 05/21/17 04:03 05/21/17 05:00 05/21/17 05:06 Glucose (Fingerstick) 154 mg/dL (70-99) 145 mg/dL (70-99) 97 mg/dL (70-99) White Blood Count 5.2 x10^3/uL (4.0-11.0) Red Blood Count 3.75 x10^6/uL (3.50-5.40) Hemoglobin 10.9 g/dL (12.0-15.5) Hematocrit 32.3 % (36.0-47.0) Mean Corpuscular Volume 86 fL (79-100) Mean Corpuscular Hemoglobin 29 pg (25-35) Mean Corpuscular Hemoglobin Concent 34 g/dL (31-37) Red Cell Distribution Width 16.0 % (11.5-14.5) Platelet Count 264 x10^3/uL (140-400) Neutrophils (%) (Auto) 32 % (31-73) Lymphocytes (%) (Auto) 54 % (24-48) Monocytes (%) (Auto) 9 % (0-9) Eosinophils (%) (Auto) 4 % (0-3) Basophils (%) (Auto) 1 % (0-3) Neutrophils # (Auto) 1.6 x10^3uL (1.8-7.7) Lymphocytes # (Auto) 2.8 x10^3/uL (1.0-4.8) Monocytes # (Auto) 0.5 x10^3/uL (0.0-1.1) Eosinophils # (Auto) 0.2 x10^3/uL (0.0-0.7) Basophils # (Auto) 0.1 x10^3/uL (0.0-0.2) Sodium Level 139 mmol/L (136-145) Potassium Level 3.7 mmol/L (3.5-5.1) Chloride Level 106 mmol/L (98-107) Carbon Dioxide Level 23 mmol/L (21-32) Anion Gap 10 (6-14) Blood Urea Nitrogen 20 mg/dL (7-20) Creatinine 0.7 mg/dL (0.6-1.0) Estimated GFR (Cockcroft-Gault) 101.1 Glucose Level 110 mg/dL (70-99) Calcium Level 8.0 mg/dL (8.5-10.1) Test 05/21/17 06:04 05/21/17 07:06 05/21/17 08:04 05/21/17 09:08 Glucose (Fingerstick) 137 mg/dL (70-99) 148 mg/dL (70-99) 206 mg/dL (70-99) 412 mg/dL (70-99) Test 05/21/17 10:34 05/21/17 11:56 Glucose (Fingerstick) 321 mg/dL (70-99) 177 mg/dL (70-99) Current Medications Medications (Trade) Dose Ordered Sig/Chevy Route PRN Reason Start Time Stop Time Status Last Admin Dose Admin Potassium Chloride/Dextrose/ Sod Cl 1,000 ml @ 175 mls/hr Q5H43M IV 05/20/17 15:15 05/21/17 06:09 Guaifenesin (MUCINEX ER with DM) 1 tab BID PO 05/21/17 09:00 05/21/17 09:11 Insulin Aspart (NovoLOG) follow instructions given PRN BFRMEAL SQ 05/21/17 08:15 05/21/17 08:25 DC Insulin Detemir (Levemir) 15 units BID SQ 05/21/17 09:00 05/21/17 08:35 Insulin Aspart (NovoLOG) 0-9 UNITS PRN BFRMEALHC SQ 05/21/17 08:30 Dextrose 12.5 gm PRN Q15MIN PRN IV SEE COMMENTS 05/21/17 08:30 Insulin Aspart (NovoLOG) 10 units 1X ONCE SQ 05/21/17 09:45 05/21/17 09:46 DC 05/21/17 09:37 I & O 05/21/17 00:00 Intake Total 2757 ml Output Total 900 ml Balance 1857 ml Orders Procedure Category Date Status Time Potassium Cl 20meq PHA 05/20/17 In Process D5-0.45nacl (Kcl 20 M 15:15 Basic Metabolic Panel LAB 05/20/17 Complete 18:00 Basic Metabolic Panel LAB 05/20/17 Complete 22:00 Basic Metabolic Panel LAB 05/21/17 Complete 05:00 Cbc W Autodiff LAB 05/21/17 Complete 05:00 Guaifenesin Dm PHA 05/21/17 In Process 600/30mg (Mucinex Er 09:00 Notify Provider No LUTHER 05/21/17 In Process Vte Prophyl 07:50 Insulin Aspart PHA 05/21/17 Complete (Novolog) 08:15 Insulin Detemir PHA 05/21/17 In Process (Levemir) 09:00 Glucose Poct Achs LUTHER 05/21/17 In Process 08:20 Insulin Aspart PHA 05/21/17 In Process (Novolog) 08:30 Dextrose 50% PHA 05/21/17 In Process 08:30 Hypoglycemia Protocol LUTHER 05/21/17 In Process Adult 08:20 Insulin Aspart PHA 05/21/17 Complete (Novolog) 09:45 Potassium LAB 05/21/17 Logged 13:45 Magnesium LAB 05/21/17 Logged 13:45 Vital Signs Date Time Temp Pulse Resp B/P (MAP) Pulse Ox O2 Delivery O2 Flow Rate FiO2 05/21/17 13:06 112 19 106/71 (83) 97 Room Air 05/21/17 11:04 97.9 BARRY MORELAND DO May 21, 2017 13:23
--- NOTE | 2017-05-21 13:30 | PDOC3 ---
Discharge Summary Visit Information Date of Admission: May 20, 2017 Date of Discharge: May 21, 2017 Final Diagnosis Problems Medical Problems: (1) Hyperglycemia Status: Acute (2) Intractable nausea and vomiting Status: Acute (3) DKA (4)) chronic hypomagnesemia (5) gastroparesis (6) URI (7) methamphetamine habitual use (8) dehydration-resolve (9) normochromic, normocytic anemia Problems: Brief Hospital Course Allergies Allergies Coded Allergies Type Severity Reaction Last Updated Verified acetaminophen Allergy Intermediate HIVES 05/20/17 Yes adhesive tape Allergy Intermediate 05/20/17 Yes I S O L A T I O N *CONTACT* Allergy Unknown 05/20/17 Yes Vital Signs Vital Signs Date Time Temp Pulse Resp B/P (MAP) Pulse Ox O2 Delivery O2 Flow Rate FiO2 05/21/17 13:06 112 19 106/71 (83) 97 Room Air 05/21/17 11:04 97.9 Lab Results Laboratory Tests Test 05/20/17 09:47 05/20/17 09:49 05/20/17 11:28 05/20/17 11:44 Blood Gas pH 7.30 (7.35-7.45) Blood Gas PCO2 23 mmHg (35-45) Blood Gas PO2 53 mmHg (80-100) Blood Gas HCO3 11 mmol/L (22-26) Arterial Bld O2 Saturation (Calc) 84 % (92-99) FiO2 21 % White Blood Count 5.5 x10^3/uL (4.0-11.0) Red Blood Count 4.82 x10^6/uL (3.50-5.40) Hemoglobin 13.7 g/dL (12.0-15.5) Hematocrit 43.3 % (36.0-47.0) Mean Corpuscular Volume 90 fL (79-100) Mean Corpuscular Hemoglobin 29 pg (25-35) Mean Corpuscular Hemoglobin Concent 32 g/dL (31-37) Red Cell Distribution Width 16.0 % (11.5-14.5) Platelet Count 308 x10^3/uL (140-400) Neutrophils (%) (Auto) 44 % (31-73) Lymphocytes (%) (Auto) 42 % (24-48) Monocytes (%) (Auto) 9 % (0-9) Eosinophils (%) (Auto) 2 % (0-3) Basophils (%) (Auto) 3 % (0-3) Neutrophils # (Auto) 2.4 x10^3uL (1.8-7.7) Lymphocytes # (Auto) 2.3 x10^3/uL (1.0-4.8) Monocytes # (Auto) 0.5 x10^3/uL (0.0-1.1) Eosinophils # (Auto) 0.1 x10^3/uL (0.0-0.7) Basophils # (Auto) 0.1 x10^3/uL (0.0-0.2) Sodium Level 130 mmol/L (136-145) Potassium Level 5.4 mmol/L (3.5-5.1) Chloride Level 92 mmol/L (98-107) Carbon Dioxide Level 15 mmol/L (21-32) Anion Gap 23 (6-14) Blood Urea Nitrogen 18 mg/dL (7-20) Creatinine 0.9 mg/dL (0.6-1.0) Estimated GFR (Cockcroft-Gault) 75.7 Glucose Level 471 mg/dL (70-99) Serum Osmolality 306 mOsm/Kg (279-304) Calcium Level 9.0 mg/dL (8.5-10.1) Phosphorus Level 3.9 mg/dL (2.6-4.7) Magnesium Level 1.8 mg/dL (1.8-2.4) Total Bilirubin 0.6 mg/dL (0.2-1.0) Direct Bilirubin 0.1 mg/dL (0.0-0.2) Aspartate Amino Transf (AST/SGOT) 26 U/L (15-37) Alanine Aminotransferase (ALT/SGPT) 31 U/L (14-59) Alkaline Phosphatase 119 U/L (46-116) Total Protein 8.5 g/dL (6.4-8.2) Albumin 4.0 g/dL (3.4-5.0) Lipase 40 U/L (73-393) Serum Test, Qualitative Negative (NEG) Acetone Level Sm pos (NEG) Nasal Screen MRSA (PCR) Positive (Negative) Glucose (Fingerstick) 346 mg/dL (70-99) Test 05/20/17 12:52 05/20/17 13:51 05/20/17 14:42 05/20/17 14:57 Glucose (Fingerstick) 218 mg/dL (70-99) 142 mg/dL (70-99) 176 mg/dL (70-99) Sodium Level 138 mmol/L (136-145) Potassium Level 4.5 mmol/L (3.5-5.1) Chloride Level 105 mmol/L (98-107) Carbon Dioxide Level 18 mmol/L (21-32) Anion Gap 15 (6-14) Blood Urea Nitrogen 23 mg/dL (7-20) Creatinine 0.8 mg/dL (0.6-1.0) Estimated GFR (Cockcroft-Gault) 86.7 Glucose Level 112 mg/dL (70-99) Calcium Level 8.1 mg/dL (8.5-10.1) Test 05/20/17 15:59 05/20/17 17:00 05/20/17 18:02 05/20/17 18:03 Glucose (Fingerstick) 100 mg/dL (70-99) 156 mg/dL (70-99) 277 mg/dL (70-99) Sodium Level 136 mmol/L (136-145) Potassium Level 4.6 mmol/L (3.5-5.1) Chloride Level 102 mmol/L (98-107) Carbon Dioxide Level 19 mmol/L (21-32) Anion Gap 15 (6-14) Blood Urea Nitrogen 22 mg/dL (7-20) Creatinine 1.0 mg/dL (0.6-1.0) Estimated GFR (Cockcroft-Gault) 67.0 Glucose Level 251 mg/dL (70-99) Calcium Level 7.7 mg/dL (8.5-10.1) Test 05/20/17 19:01 05/20/17 19:57 05/20/17 21:00 05/20/17 21:59 Glucose (Fingerstick) 231 mg/dL (70-99) 207 mg/dL (70-99) 146 mg/dL (70-99) 74 mg/dL (70-99) Test 05/20/17 22:00 05/20/17 23:01 05/21/17 00:01 05/21/17 01:02 Sodium Level 138 mmol/L (136-145) Potassium Level 3.9 mmol/L (3.5-5.1) Chloride Level 105 mmol/L (98-107) Carbon Dioxide Level 25 mmol/L (21-32) Anion Gap 8 (6-14) Blood Urea Nitrogen 19 mg/dL (7-20) Creatinine 0.9 mg/dL (0.6-1.0) Estimated GFR (Cockcroft-Gault) 75.7 Glucose Level 79 mg/dL (70-99) Calcium Level 8.0 mg/dL (8.5-10.1) Glucose (Fingerstick) 211 mg/dL (70-99) 158 mg/dL (70-99) 155 mg/dL (70-99) Test 05/21/17 02:01 05/21/17 03:05 05/21/17 04:03 05/21/17 05:00 Glucose (Fingerstick) 113 mg/dL (70-99) 154 mg/dL (70-99) 145 mg/dL (70-99) White Blood Count 5.2 x10^3/uL (4.0-11.0) Red Blood Count 3.75 x10^6/uL (3.50-5.40) Hemoglobin 10.9 g/dL (12.0-15.5) Hematocrit 32.3 % (36.0-47.0) Mean Corpuscular Volume 86 fL (79-100) Mean Corpuscular Hemoglobin 29 pg (25-35) Mean Corpuscular Hemoglobin Concent 34 g/dL (31-37) Red Cell Distribution Width 16.0 % (11.5-14.5) Platelet Count 264 x10^3/uL (140-400) Neutrophils (%) (Auto) 32 % (31-73) Lymphocytes (%) (Auto) 54 % (24-48) Monocytes (%) (Auto) 9 % (0-9) Eosinophils (%) (Auto) 4 % (0-3) Basophils (%) (Auto) 1 % (0-3) Neutrophils # (Auto) 1.6 x10^3uL (1.8-7.7) Lymphocytes # (Auto) 2.8 x10^3/uL (1.0-4.8) Monocytes # (Auto) 0.5 x10^3/uL (0.0-1.1) Eosinophils # (Auto) 0.2 x10^3/uL (0.0-0.7) Basophils # (Auto) 0.1 x10^3/uL (0.0-0.2) Sodium Level 139 mmol/L (136-145) Potassium Level 3.7 mmol/L (3.5-5.1) Chloride Level 106 mmol/L (98-107) Carbon Dioxide Level 23 mmol/L (21-32) Anion Gap 10 (6-14) Blood Urea Nitrogen 20 mg/dL (7-20) Creatinine 0.7 mg/dL (0.6-1.0) Estimated GFR (Cockcroft-Gault) 101.1 Glucose Level 110 mg/dL (70-99) Calcium Level 8.0 mg/dL (8.5-10.1) Test 05/21/17 05:06 05/21/17 06:04 05/21/17 07:06 05/21/17 08:04 Glucose (Fingerstick) 97 mg/dL (70-99) 137 mg/dL (70-99) 148 mg/dL (70-99) 206 mg/dL (70-99) Test 05/21/17 09:08 05/21/17 10:34 05/21/17 11:56 Glucose (Fingerstick) 412 mg/dL (70-99) 321 mg/dL (70-99) 177 mg/dL (70-99) Brief Hospital Course Ms. Leary is a 27 old with long-standing poorly controlled type 1 diabetes. She has had several admissions in the last week. To the emergency room and DKA. She also complained of a mild URI. She was treated in the usual fashion with insulin drip, aggressive fluid resuscitation, medications for nausea and vomiting, she tolerated all of this well and was eating quite well the day of discharge. Discharge Information Condition at Discharge: Improved Disposition/Orders: D/C to Home Dischare Medications Current Medications Sodium Chloride 1,000 ml @ 1,000 mls/hr Q1H IV Last administered on 05/20/17 09:47; Start 05/20/17 at 09:47; Stop 05/20/17 at 10:46; Status DC Sodium Chloride (Normal Saline Flush) 10 ml QSHIFT PRN IV AFTER MEDS AND BLOOD DRAWS; Start 05/20/17 at 10:00 Ondansetron HCl (Zofran) 4 mg 1X ONCE IV Last administered on 05/20/17 10:10; Start 05/20/17 at 10:15; Stop 05/20/17 at 10:16; Status DC Famotidine (Pepcid) 20 mg 1X ONCE IVP Last administered on 05/20/17 10:10; Start 05/20/17 at 10:15; Stop 05/20/17 at 10:16; Status DC Haloperidol Lactate (Haldol) 5 mg 1X ONCE IVP Last administered on 05/20/17 10 :10; Start 05/20/17 at 10:15; Stop 05/20/17 at 10:16; Status DC Lorazepam (Ativan) 2 mg 1X ONCE IV Last administered on 05/20/17 10:09; Start 05/20/17 at 10:15; Stop 05/20/17 at 10:16; Status DC Insulin Human Regular (NovoLIN R) 10 unit 1X ONCE IV Last administered on 10:51; Start 05/20/17 at 11:00; Stop 05/20/17 at 11:01; Status DC Ondansetron HCl (Zofran) 4 mg PRN Q4HRS PRN IV NAUSEA/VOMITING; Start 05/20/17 at 10:45; Stop 05/21/17 at 10:44; Status DC Sodium Chloride 1,000 ml @ 0 mls/hr Q0M IV Last administered on 05/20/17 11:46 ; Start 05/20/17 at 11:13 Dextrose/Sodium Chloride 1,000 ml @ 0 mls/hr Q0M IV ; Start 05/20/17 at 11:13; Stop 05/20/17 at 15:24; Status DC Insulin Human Regular 150 unit/ Sodium Chloride 151.5 ml @ 0 mls/hr CONT PRN PRN IV PER PROTOCOL Last administered on 05/20/17 11:57; Start 05/20/17 at 11:15 ; Stop 05/21/17 at 08:03; Status DC Potassium Chloride 100 ml @ 100 mls/hr PRN Q1HR PRN IV SEE COMMENTS Last administered on 05/21/17 10:50; Start 05/20/17 at 11:15 Potassium Chloride 100 ml @ 100 mls/hr PRN Q1HR PRN IV SEE COMMENTS; Start 05/20/17 at 11:15 Potassium Chloride 100 ml @ 100 mls/hr PRN Q1HR PRN IV SEE COMMENTS; Start 05/20/17 at 11:15 Magnesium Sulfate 50 ml @ 25 mls/hr PRN Q2HR PRN IV MG LEVEL < 1.8; Start at 11:15 Ketorolac Tromethamine (Toradol) 30 mg PRN Q6HRS PRN IV PAIN; Start 05/20/17 at 11:30; Stop 05/25/17 at 11:29 Metoclopramide HCl (Reglan) 10 mg Q6HRS IV Last administered on 05/21/17 12:06 ; Start 05/20/17 at 12:00 Potassium Chloride/Dextrose/ Sod Cl 1,000 ml @ 175 mls/hr Q5H43M IV Last administered on 05/21/17 06:09; Start 05/20/17 at 15:15 Guaifenesin (MUCINEX ER with DM) 1 tab BID PO Last administered on 05/21/17 09: 11; Start 05/21/17 at 09:00 Insulin Aspart (NovoLOG) follow instructions given PRN BFRMEAL SQ ; Start at 08:15; Stop 05/21/17 at 08:25; Status DC Insulin Detemir (Levemir) 15 units BID SQ Last administered on 05/21/17 08:35; Start 05/21/17 at 09:00 Insulin Aspart (NovoLOG) 0-9 UNITS PRN BFRMEALHC SQ ; Start 05/21/17 at 08:30 Dextrose 12.5 gm PRN Q15MIN PRN IV SEE COMMENTS; Start 05/21/17 at 08:30 Insulin Aspart (NovoLOG) 10 units 1X ONCE SQ Last administered on 05/21/17 09: 37; Start 05/21/17 at 09:45; Stop 05/21/17 at 09:46; Status DC Active Scripts Active Keflex (Cephalexin) 500 Mg Capsule 1 Cap PO TID Pantoprazole Sodium 40 Mg Tablet.dr 40 Mg PO DAILYAC Escitalopram Oxalate 5 Mg Tablet 5 Mg PO DAILY Novolog Flexpen (Insulin Aspart) 100 Unit/1 Ml Insuln.pen 14 Unit SQ QIDAFTMEAL Magnesium Oxide 400 Mg Tablet 1 Tab PO TID Metoclopramide Hcl 5 Mg Tablet 10 Mg PO QIDACHS Novolog Flexpen (Insulin Aspart) 100 Unit/1 Ml Insuln.pen 0-9 Unit SQ ACHS FOLLOW SUPPLEMENTAL SCALE GIVEN TO YOU Reported Levemir (Insulin Detemir) 100 Unit/1 Ml Vial 15 Unit SQ BID Patient Instructions Patient Instuctions Check glucoses on a regular basis and adjust insulin. Keep appointments with general teller. BARRY MORELAND DO May 21, 2017 13:30
[2017-05-21 14:02] LABS: MAGNESIUM 1.3 mg/dL (1.8-2.4)
[2017-05-21] MEDS ORDERED: MAGNESIUM SULFATE 2GM 50 ML IV ONE (14:45)
[2017-05-21] MEDS ORDERED: MAGNESIUM OXIDE 400 MG TABLET PO ONE (15:00)
== END 2017-05-21 15:15 | disposition home or self-care (01) | DRG 639 ==
LOC: ER 09:28 → ICU 10:42
PROVIDERS: ADMIT Family Medicine; ATTEND Family Medicine
DX: E10.10 Type 1 diabetes mellitus with ketoacidosis without coma (principal); F32.9 Major depressive disorder, single episode, unspecified; E11.9 Type 2 diabetes mellitus without complications; K21.9 Gastro-esophageal reflux disease without esophagitis; F17.210 Nicotine dependence, cigarettes, uncomplicated; F15.90 Other stimulant use, unspecified, uncomplicated; F11.90 Opioid use, unspecified, uncomplicated; Z91.19 Patient's noncompliance with other medical treatment and regimen; G89.29 Other chronic pain; Z88.8 Allergy status to other drugs, medicaments and biological substances; Z91.041 Radiographic dye allergy status; D64.9 Anemia, unspecified; E10.43 Type 1 diabetes mellitus with diabetic autonomic (poly)neuropathy; E83.42 Hypomagnesemia; E86.0 Dehydration; F15.10 Other stimulant abuse, uncomplicated; F43.20 Adjustment disorder, unspecified; J06.9 Acute upper respiratory infection, unspecified; K31.84 Gastroparesis
CPT/HCPCS: 36415; 80048; 80076; 82010; 82803; 82947; 83690; 83735; 83930; 84100; 84132; 84703; 85027; 87641; 93005; 96361; 96374; 96375; J1630; J1815; J2060; J2405; J2765; J3480; S0028; 99291-25; J7030

== ENCOUNTER 2017-05-26 16:30 | Emergency (ER) | payer BC ==
[~2017-05-26] VITALS: Ht 167.6 cm; Wt 63.0 kg
[2017-05-26 16:40] VITALS: BP 123/84
[2017-05-26] MEDS ORDERED: IV NORMAL SALINE 1,000ML 1,000 ML IV SCH ×2 (16:46→17:18)
[2017-05-26] MEDS ORDERED: ONDANSETRON PF 4 MG/2 ML VIAL. ONE (16:47)
[2017-05-26] MEDS ORDERED: IV NORMAL SALINE 1,000ML 2,000 ML ONE (16:47)
[2017-05-26 17:00] LABS: BASO % 1 % (0-3); EOS # 0.1 x10^3/uL (0.0-0.7); EOS % 2 % (0-3); HEMATOCRIT 36.9 % (36.0-47.0); HEMOGLOBIN 12.3 g/dL (12.0-15.5); LYMPH # 2.2 x10^3/uL (1.0-4.8); LYMPH % 32 % (24-48); MEAN CORPUSCULAR HEMOGLOBIN 29 pg (25-35); MEAN CORPUSCULAR HGB CONC 33 g/dL (31-37); MEAN CORPUSCULAR VOLUME 86 fL (79-100); MONO # 0.5 x10^3/uL (0.0-1.1); MONO % 8 % (0-9); NEUT # 4.1 x10^3uL (1.8-7.7); NEUT % 58 % (31-73); PLATELET COUNT 359 x10^3/uL (140-400); RED BLOOD COUNT 4.27 x10^6/uL (3.50-5.40); RED CELL DISTRIBUTION WIDTH 16.2 % (11.5-14.5)
[2017-05-26 17:13] LABS: CALCIUM 9.3 mg/dL (8.5-10.1); CREATININE 0.8 mg/dL (0.6-1.0); GFR 86.7; TOTAL BILIRUBIN 0.6 mg/dL (0.2-1.0)
[2017-05-26 17:14] LABS: POTASSIUM 4.5 mmol/L (3.5-5.1)
--- NOTE | 2017-05-26 17:18 | PHYS DOC ---
General Chief Complaint: HYPERGLYCEMIA Stated Complaint: HIGH BLOOD SUGAR/VOMITING Time Seen by MD: 16:46 Source: patient Exam Limitations: no limitations Problems: (CEDRIC MELENDEZ DO) Time Seen by MD: 18:23 Problems: (SHELIA GARCÍA MD) History of Present Illness Initial Comments Patient is a 27-year-old female well known to this department who comes to the ED complaining of hyperglycemia and abdominal discomfort. Patient states that this morning she developed abdominal cramping and nausea. She says she felt her glucose was elevated but states she has been consistent in her medication and dietary regimen. She admits to possibly missing a few doses of insulin during her methamphetamine use. She complains of abdominal discomfort and nausea. Abdominal discomfort is described as dull and achy, generalized without focality no relieving or exacerbating factors. She's had nausea but no vomiting and denies diarrhea or blood in stools. She denies fever chills sweats or myalgias no cough wheeze or difficulty breathing. Her primary concern is pain medications and she is requesting something for her abdominal discomfort. Patient was discharged from this facility May 21 after an inpatient stay for DKA. She admits to using methamphetamine 2 days ago. ED vital signs: 98, 111, 16, 123/84, 97% RA Timing/Duration: 24 hours Severity: moderate Modifying Factors: worse with eating, improves with medication Associated Symptoms: headaches, malaise, nausea/vomiting, other (CEDRIC MELENDEZ DO) Allergies: Coded Allergies: acetaminophen (Verified Allergy, Intermediate, HIVES, 05/20/17) "WHEN I HAD MY ANKLE BX THEY GAVE ME TYLENOL AND I GOT HIVES ON MY LEG." adhesive tape (Verified Allergy, Intermediate, 05/20/17) I S O L A T I O N *CONTACT* (Verified Allergy, Unknown, 05/20/17) +MRSA nares 05-15-17 Past Medical History Medical History: diabetes, other (diabetes, DKA, depression, GERD, noncompliance with medical care, gastroparesis, normocytic normochromic anemia, hypomagnesemia, adjustment disorder) Surgical History: noncontributory (CEDRIC MELENDEZ DO) Social History Smoker: cigarettes, less than 1 pack/day Alcohol: occasionally Drugs: marijuana, other (opiates, methamphetamine) (CEDRIC MELENDEZ DO) Review of Systems Constitutional: denies chills, denies diaphoresis, denies fever, malaise, weakness Respiratory: denies cough, denies shortness of breath, denies wheezing Cardiovascular: denies chest pain, denies palpitations, denies syncope Gastrointestinal: see HPI Genitourinary: denies dysuria, frequency, denies hematuria Musculoskeletal: denies back pain, denies joint swelling, denies neck pain Skin: denies lesions, denies lumps, denies rash Psychiatric/Neurological: denies headache, denies numbness, denies paresthesia , denies weakness Hematologic/Lymphatic: denies blood clots, denies easy bleeding, denies easy bruising (CEDRIC MELENDEZ DO) Physical Exam General Appearance: WD/WN, no apparent distress Eyes: bilateral eye normal inspection, bilateral eye PERRL, bilateral eye EOMI Ear, Nose, Throat: hearing grossly normal, normal ENT inspection (mildly dry membranes), normal pharynx Neck: non-tender, supple Respiratory: normal breath sounds, no respiratory distress Cardiovascular: normal peripheral pulses, tachycardia Gastrointestinal: soft (nondistended, generalized tenderness to palpation no rebound or guarding, without focality negative Boudreaux negative McBurney no masses palpated) Back: no CVA tenderness (Dr. Cuevas), no vertebral tenderness Extremities: non-tender, normal inspection Neurologic/Psychiatric: fine unhairer II-XII nml as tested, no motor/sensory deficits, alert, normal mood/affect, oriented x 3 Skin: normal color, warm/dry (CEDRIC MELENDEZ DO) Orders, Labs, Meds EKG: Normal sinus rhythm 96 bpm, there is flattening of the T waves in V2 and V3 possibly due to lead placement, no STEMI. Interpreted by me 181: Initial glucose was 456 without elevated anion gap, patient received 12 units of regular insulin intravenously at 1745. If glucose responds appropriately and patient remains non-gapped she should be stable for discharge home. Patient was signed out to Dr. García at 1800 shift change see his documentation for results and patient disposition. (CEDRIC MELENDEZ DO) Orders, Labs, Meds Laboratory Tests Test 05/26/17 16:41 05/26/17 16:55 05/26/17 17:47 05/26/17 18:19 White Blood Count 7.0 x10^3/uL (4.0-11.0) Red Blood Count 4.27 x10^6/uL (3.50-5.40) Hemoglobin 12.3 g/dL (12.0-15.5) Hematocrit 36.9 % (36.0-47.0) Mean Corpuscular Volume 86 fL (79-100) Mean Corpuscular Hemoglobin 29 pg (25-35) Mean Corpuscular Hemoglobin Concent 33 g/dL (31-37) Red Cell Distribution Width 16.2 % (11.5-14.5) H Platelet Count 359 x10^3/uL (140-400) Neutrophils (%) (Auto) 58 % (31-73) Lymphocytes (%) (Auto) 32 % (24-48) Monocytes (%) (Auto) 8 % (0-9) Eosinophils (%) (Auto) 2 % (0-3) Basophils (%) (Auto) 1 % (0-3) Neutrophils # (Auto) 4.1 x10^3uL (1.8-7.7) Lymphocytes # (Auto) 2.2 x10^3/uL (1.0-4.8) Monocytes # (Auto) 0.5 x10^3/uL (0.0-1.1) Eosinophils # (Auto) 0.1 x10^3/uL (0.0-0.7) Basophils # (Auto) 0.0 x10^3/uL (0.0-0.2) Sodium Level 134 mmol/L (136-145) L Potassium Level 4.5 mmol/L (3.5-5.1) Chloride Level 96 mmol/L (98-107) L Carbon Dioxide Level 30 mmol/L (21-32) Anion Gap 8 (6-14) Blood Urea Nitrogen 24 mg/dL (7-20) H Creatinine 0.8 mg/dL (0.6-1.0) Estimated GFR (Cockcroft-Gault) 86.7 BUN/Creatinine Ratio 30 (6-20) H Glucose Level 459 mg/dL (70-99) H Lactic Acid Level 1.4 mmol/L (0.4-2.0) Calcium Level 9.3 mg/dL (8.5-10.1) Total Bilirubin 0.6 mg/dL (0.2-1.0) Aspartate Amino Transferase (AST) 28 U/L (15-37) Alanine Aminotransferase (ALT) 29 U/L (14-59) Alkaline Phosphatase 111 U/L (46-116) Creatine Kinase 94 U/L (26-192) Total Protein 8.0 g/dL (6.4-8.2) Albumin 4.0 g/dL (3.4-5.0) Albumin/Globulin Ratio 1.0 (1.0-1.7) Lipase 52 U/L (73-393) L Ethyl Alcohol Level < 10 mg/dL (0-10) Glucose (Fingerstick) 462 mg/dL (70-99) H 218 mg/dL (70-99) H Urine Collection Type Unknown Urine Color Straw Urine Clarity Clear Urine pH 8.5 Urine Specific [place] 1.015 Urine Protein Neg (NEG-TRACE) Urine Glucose (UA) 500 mg/dL (NEG) Urine Ketones (Stick) 40 mg/dL (NEG) Urine Blood Neg (NEG) Urine Nitrite Neg (NEG) Urine Bilirubin Neg (NEG) Urine Urobilinogen Dipstick 0.2 mg/dL (0.2 mg/dL) Urine Leukocyte Esterase Neg (NEG) Urine RBC 0 /HPF (0-2) Urine WBC Occ /HPF (0-4) Urine Squamous Epithelial Cells Mod /LPF Urine Bacteria Few /HPF (0-FEW) Urine Opiates Screen Neg (NEG) Urine Methadone Screen Neg (NEG) Urine Barbiturates Neg (NEG) Urine Phencyclidine Screen Neg (NEG) Urine Amphetamine/Methamphetamine Neg (NEG) Urine Benzodiazepines Screen Neg (NEG) Urine Cocaine Screen Neg (NEG) Urine Cannabinoids Screen Neg (NEG) Urine Ethyl Alcohol Neg (NEG) I reviewed nursing notes, history and physical collected by Dr. melendez and her response to therapy. Patient is a high glycemic patient with a history of diabetes frequent yeast for ER secondary to DKA and hyperglycemia complications. 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 She does not have a primary caregiver that she has a stressful relationship with. She admits that she has been attempting to maintain her sugar levels but progressive how she modifies her insulin usage she has no real recourse ability to modify or change in behavior home. Had an epic [facility] specialists that she has not seen her excuse is that she has no money to pay the co-pay. I spoke at length about my concerns for medication noncompliance and the complications that will affect the heart, her brain, her kidneys causing progressive disability. Patient already has gastroparesis and peripheral neuropathy already this will only get worse. I'm concerned with this patient's presentation that they may be addicted to narcotic medications. Their behavior could be described as drug seeking in nature and I'm concerned that if I do not explain to them my concerns and we have a discussion about how to treat this in the future we will continue to see them using these medications and possibly dangerous manners. We talked about overutilization that the medications associated with narcotics to include acetaminophen when taking large doses can cause liver injury that is permanent nature. We discussed a treatment plan and need for follow-up with a painter and decorator to talk about alternatives to narcotic medications. We also talked about possible psychiatric intervention to help him cope with her chronic pain condition. We also discussed possible social work involvement or addiction treatment involvement to help address the possible withdrawal symptoms that may be experiencing which is causing the further use narcotics in this way. I will take the time to provide them addiction clinic information in the follow- up if they choose to accept my help. She will be diagnosed with hyperglycemia. I have reviewed the laboratory work collected by prior physician. It demonstrates no anion gap only hypoglycemia although it isn't elevation ketones this is likely from starvation ketosis. She was provided 3 L of normal saline given an oral challenge and she feels markedly better. She actually asked to leave. Impression: Hyperglycemia, medication noncompliance, dehydration, Disposition: Discharge home with PCP follow-up tomorrow. Discharge (SHELIA GARCÍA MD) Departure Disposition: 01 HOME, SELF-CARE Condition: IMPROVED Patient Instructions: Hyperglycemia Additional Instructions: please return for any new or increased pain, nausea and vomiting or if you have any questions or concerns. Please use your insulin as prescribed as it does prevent hyperglycemia from recurring Prescriptions Gregory we provided a course of Jessica and Miya. (SHELIA GARCÍA MD) CEDRIC MELENDEZ DO May 26, 2017 17:17 SHELIA GARCÍA MD May 26, 2017 18:51
[2017-05-26] MEDS ORDERED: ONDANSETRON PF 4 MG/2 ML VIAL. IV ONE ×2 (17:30→17:45)
[2017-05-26] MEDS ORDERED: INSULIN REGULAR 100 UNIT/ML 10ML VIAL. IV ONE (17:45)
[2017-05-26 18:25] LABS: AMPHETAMINE/METHAMPHETAMINE NEG (NEG); BARBITURATES NEG (NEG); BENZODIAZEPINES NEG (NEG); CANNABINOIDS NEG (NEG); COCAINE NEG (NEG); METHADONE NEG (NEG); OPIATES NEG (NEG); PHENCYCLIDINE NEG (NEG)
[2017-05-26 18:29] LABS: CLARITY,URINE CLEAR; COLOR,URINE STRAW
[2017-05-26 18:30] LABS: BACTERIA,URINE FEW /HPF (0-FEW); BILIRUBIN,URINE NEG (NEG); GLUCOSE,URINE 500 mg/dL (NEG); NITRITE,URINE NEG (NEG); RBC,URINE 0 /HPF (0-2); SQUAMOUS EPITHELIAL CELL,UR MOD /LPF; UROBILINOGEN,URINE 0.2 mg/dL (0.2 mg/dL); WBC,URINE OCC /HPF (0-4)
[2017-05-26] MEDS ORDERED: DICYCLOMINE 20 MG/2 ML AMPUL. IM ONE (18:30)
[2017-05-27] MEDS ORDERED: IV NORMAL SALINE 1,000ML 1,000 ML ONE (00:31)
[2017-05-27] MEDS ORDERED: ONDANSETRON PF 4 MG/2 ML VIAL. ONE (00:31)
--- NOTE | 2017-05-27 01:07 | EKG ---
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
[2017-05-27] MEDS ORDERED: ONDA4TAB10 SL (14:26)
== END 2017-05-26 19:00 | disposition home or self-care (01) ==
LOC: ER 16:30
DX: E11.65 Type 2 diabetes mellitus with hyperglycemia (principal); E86.0 Dehydration; F17.210 Nicotine dependence, cigarettes, uncomplicated; E13.10 Other specified diabetes mellitus with ketoacidosis without coma; K21.9 Gastro-esophageal reflux disease without esophagitis; F11.10 Opioid abuse, uncomplicated; F15.10 Other stimulant abuse, uncomplicated; F43.20 Adjustment disorder, unspecified; Z91.14 Patient's other noncompliance with medication regimen; Z86.2 Personal history of diseases of the blood and blood-forming organs and certain disorders involving the immune mechanism; Z88.8 Allergy status to other drugs, medicaments and biological substances; Z88.6 Allergy status to analgesic agent; Z91.041 Radiographic dye allergy status
CPT/HCPCS: 36415; 80053; 80305; 81001; 82550; 82947; 83605; 83690; 85027; 93005; 96361; 96372; 96374; 96375; 99285; G0480; J0500; J1815; J2405; 80320; G0481; J7030

== ENCOUNTER 2017-05-26 22:53 | Inpatient (IN) | payer BC ==
[~2017-05-26] VITALS: Ht 170.2 cm; Wt 62.3 kg
[2017-05-26] MEDS ORDERED: HYDROmorphone PF 1 MG/ML DISP.SYRIN IV/SQ PRN (23:15)
[2017-05-26] MEDS ORDERED: 0.9 % SODIUM CHLORIDE 10 ML DISP.SYRIN. IV PRN ×2 (23:15)
--- NOTE | 2017-05-26 23:23 | PHYS DOC ---
Past History Past Medical History: Depression, Diabetes, GERD Additional Past Medical Histor: pt reports several admissions for "high blood sugar" Past Surgical History: Other Smoking: Less than 1pk/day Alcohol Use: None Drug Use: Marijuana, Methamphetamine, Opiates Adult General Chief Complaint Chief Complaint: NAUSEA/VOMITING/DIARRHEA [facility] HPI This is a pleasant 27-year-old female with a known history of diabetes, hyperglycemia as well as gastroparesis who presented earlier today with nausea vomiting and inability to tolerate fluids by mouth. She was hyperglycemic at the time but not in diabetic ketoacidosis according to the physician who took care of her. Patient was given 3 L of normal saline here in the emergency department and discharged home. She was given antiemetics and follow-up with her mill helper. She lasted all like 6 hours and then came back with intractable nausea and vomiting at again. She's had diffuse abdominal pain described as crampy and achy with no relief of any kind of position. She's had nonbilious nonbloody emesis too many to count. She is not been able to consume any fluids. She admits to no fevers, headache, or other symptoms. I have reviewed past notes from 6 hours prior to arrival. Review of Systems Review of Systems Constitutional: She complains of chills but no fevers. Eyes: Denies change in visual acuity, redness, or eye pain [] HENT: Denies nasal congestion or sore throat [] Respiratory: Denies cough or shortness of breath [] Cardiovascular: No additional information not addressed in HPI [] GI: He complains of diffuse abdominal pain with nausea and intractable vomiting nonbilious nonbloody no diarrhea or bloody stools. [] : Denies dysuria or hematuria [] Musculoskeletal: Denies back pain or joint pain [] Integument: Denies rash or skin lesions [] Neurologic: Complains of headache and myalgias. Endocrine: Denies polyuria or polydipsia [] Allergies Allergies Allergies Coded Allergies Type Severity Reaction Last Updated Verified acetaminophen Allergy Intermediate HIVES 05/20/17 Yes adhesive tape Allergy Intermediate 05/20/17 Yes I S O L A T I O N *CONTACT* Allergy Unknown 05/20/17 Yes Physical Exam Physical Exam Heart rate 100 saturations 98% on room air patient afebrile Constitutional: Well developed, this patient is thin and cachectic obvious uncomfortable nontoxic HENT: Normocephalic, atraumatic, bilateral external ears normal, mucous membranes are dry no oral exudates, nose normal. [] Eyes: PERRLA, EOMI, conjunctiva normal, no discharge. [] Neck: Normal range of motion, no tenderness, supple, no stridor. [] Cardiovascular: Tachycardia with no murmurs gallops or rubs. Lungs & Thorax: Bilateral breath sounds clear to auscultation [] Abdomen: Hyperactive bowel sounds patient's abdomen is soft with diffuse tenderness in all quadrants. No guarding rebound or organomegaly. [] Skin: Warm, dry, no erythema, no rash. [] Back: No tenderness, no CVA tenderness. [] Extremities: No tenderness, no cyanosis, no clubbing, ROM intact, no edema. [] Neurologic: Alert and oriented X 3, normal motor function, Psychologic: He is very teary-eyed and has a great deal of motor agitation. Current Patient Data Vital Signs Vital Signs Date Time Temp Pulse Resp B/P (MAP) Pulse Ox O2 Delivery O2 Flow Rate FiO2 05/27/17 01:00 98.4 93 18 143/97 (112) 97 Room Air Vital Signs Date Time Temp Pulse Resp B/P (MAP) Pulse Ox O2 Delivery O2 Flow Rate FiO2 05/27/17 01:55 95 18 109/62 (78) 96 Room Air 05/27/17 01:00 98.4 Lab Results Laboratory Tests Test 05/27/17 00:17 05/27/17 01:03 05/27/17 01:20 Glucose (Fingerstick) 177 mg/dL (70-99) H 184 mg/dL (70-99) H White Blood Count 6.0 x10^3/uL (4.0-11.0) Red Blood Count 3.73 x10^6/uL (3.50-5.40) Hemoglobin 10.8 g/dL (12.0-15.5) L Hematocrit 32.3 % (36.0-47.0) L Mean Corpuscular Volume 87 fL (79-100) Mean Corpuscular Hemoglobin 29 pg (25-35) Mean Corpuscular Hemoglobin Concent 33 g/dL (31-37) Red Cell Distribution Width 16.3 % (11.5-14.5) H Platelet Count 317 x10^3/uL (140-400) Neutrophils (%) (Auto) 52 % (31-73) Lymphocytes (%) (Auto) 36 % (24-48) Monocytes (%) (Auto) 9 % (0-9) Eosinophils (%) (Auto) 2 % (0-3) Basophils (%) (Auto) 1 % (0-3) Neutrophils # (Auto) 3.1 x10^3uL (1.8-7.7) Lymphocytes # (Auto) 2.2 x10^3/uL (1.0-4.8) Monocytes # (Auto) 0.5 x10^3/uL (0.0-1.1) Eosinophils # (Auto) 0.1 x10^3/uL (0.0-0.7) Basophils # (Auto) 0.1 x10^3/uL (0.0-0.2) Sodium Level 138 mmol/L (136-145) Potassium Level 3.8 mmol/L (3.5-5.1) Chloride Level 104 mmol/L (98-107) Carbon Dioxide Level 25 mmol/L (21-32) Anion Gap 9 (6-14) Blood Urea Nitrogen 20 mg/dL (7-20) Creatinine 0.6 mg/dL (0.6-1.0) Estimated GFR (Cockcroft-Gault) 120.8 BUN/Creatinine Ratio 33 (6-20) H Glucose Level 191 mg/dL (70-99) H Calcium Level 7.9 mg/dL (8.5-10.1) #L Total Bilirubin 0.5 mg/dL (0.2-1.0) Aspartate Amino Transferase (AST) 18 U/L (15-37) Alanine Aminotransferase (ALT) 21 U/L (14-59) Alkaline Phosphatase 78 U/L (46-116) Total Protein 6.5 g/dL (6.4-8.2) Albumin 3.3 g/dL (3.4-5.0) L Albumin/Globulin Ratio 1.0 (1.0-1.7) Lipase 39 U/L (73-393) L Acetone Level Neg (NEG) EKG EKG [] KG timed 12:41 AM 05/27/2017 demonstrates normal sinus rhythm with a heart rate of [address] segment or T-wave changes consistent with acute coronary event. There is no evidence for hyperkalemia. EKG read by Dr. García Radiology/Procedures Radiology/Procedures [] Course & Med Decision Making Course & Med Decision Making Pertinent Labs and Imaging studies reviewed. (See chart for details) ration was she seen in our emergency department and discharged home with hyper glycemia nausea and vomiting resolved and she has to go home. Unfortunately she did not last more than 6 hours. She has increasing abdominal pain and intractable nausea and vomiting at this time. I reviewed her laboratory work from her earlier evaluation and decided to admit her to the hospital for IV fluid therapy will ensure she doesn't demonstrate worsening dehydration by again by rerunning her labs. She's been given IV fluids, antiemetics, pain medications and we'll admit her to internal medicine at this point patient is having a great deal of abdominal pain but offered fluids, pain medications and antiemetics. Steel Layer note: Internal medicine. paged at 11:57 Steel Layer called at of the service 1157 Consult called back at 57 Discussed the case I presented and they agreed with admission. Time of acceptance 1157 Patient upon initial presentation was difficult stick. Nursing staff are able to draw labs upon presentation to 24-gauge but unfortunately these blood samples were hemolyzed. We reported are need to phlebotomy who is not able to help us draw labs in the ER. In patient's intractable nausea and vomiting we elected to admit patient to the [facility] for fluid therapy IV hydration reevaluation. Unfortunately labs were not drawn until she arrived to the ICU. She was reviewed by me demonstrated no change in white count, no acetone, no anion gap, no hypokalemia only mild hyperglycemia. Impression: Intractable nausea and vomiting chronic abdominal pain Disposition: Admission to the [facility] for fluid hydration and to maintain kidney function and improve her hyperglycemia. [] Dragon Disclaimer Dragon Disclaimer This chart was dictated in whole or in part using Voice Recognition software in a busy, high-work load, and often noisy Emergency Department environment. It may contain unintended and wholly unrecognized errors or omissions. Departure Departure: Impression: Primary Impression: Abdominal pain Additional Impression: Intractable nausea and vomiting Disposition: ADMITTED INPATIENT Condition: GUARDED Referrals: DANIAL VINCENT (PCP) Problem Qualifiers SHELIA GARCÍA MD May 26, 2017 23:23
[2017-05-26] MEDS ORDERED: IV NORMAL SALINE 1,000ML 1,000 ML IV SCH ×2 (23:30)
[2017-05-26] MEDS ORDERED: ONDANSETRON PF 4 MG/2 ML VIAL. IV ONE (23:30)
[2017-05-27] MEDS ORDERED: ONDANSETRON PF 4 MG/2 ML VIAL. IV ONE (00:30)
[2017-05-27] MEDS ORDERED: IV NORMAL SALINE 1,000ML 1,000 ML IV SCH (00:30)
[2017-05-27 01:00] VITALS: BP 143/97
--- NOTE | 2017-05-27 01:06 | EKG ---
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
[2017-05-27] MEDS: HYDROmorphone PF 1 MG/ML DISP.SYRIN IV PRN ×3 (01:12→14:07)
[2017-05-27 01:43] LABS: BASO # 0.1 x10^3/uL (0.0-0.2); BASO % 1 % (0-3); EOS # 0.1 x10^3/uL (0.0-0.7); EOS % 2 % (0-3); HEMATOCRIT 32.3 % (36.0-47.0); HEMOGLOBIN 10.8 g/dL (12.0-15.5); LYMPH # 2.2 x10^3/uL (1.0-4.8); LYMPH % 36 % (24-48); MEAN CORPUSCULAR HEMOGLOBIN 29 pg (25-35); MEAN CORPUSCULAR HGB CONC 33 g/dL (31-37); MEAN CORPUSCULAR VOLUME 87 fL (79-100); MONO # 0.5 x10^3/uL (0.0-1.1); MONO % 9 % (0-9); NEUT # 3.1 x10^3uL (1.8-7.7); NEUT % 52 % (31-73); PLATELET COUNT 317 x10^3/uL (140-400); RED BLOOD COUNT 3.73 x10^6/uL (3.50-5.40); RED CELL DISTRIBUTION WIDTH 16.3 % (11.5-14.5)
[2017-05-27 01:47] LABS: ALBUMIN 3.3 g/dL (3.4-5.0); CALCIUM 7.9 mg/dL (8.5-10.1); CREATININE 0.6 mg/dL (0.6-1.0); GFR 120.8; POTASSIUM 3.8 mmol/L (3.5-5.1); TOTAL BILIRUBIN 0.5 mg/dL (0.2-1.0); TOTAL PROTEIN 6.5 g/dL (6.4-8.2)
[2017-05-27 01:55] VITALS: BP 109/62
[2017-05-27] MEDS ORDERED: MAGNESIUM HYDROXIDE 2,400 MG/30 ML ORAL.SUSP. PO PRN (02:30)
[2017-05-27] MEDS ORDERED: CALCIUM CARBONATE 500 MG TAB.CHEW PO PRN (02:30)
[2017-05-27] MEDS ORDERED: PROMETHAZINE 12.5 MG in IV NORMAL SALINE 50ML 50 ML IV PRN (02:30)
[2017-05-27] MEDS ORDERED: 0.9 % SODIUM CHLORIDE 10 ML DISP.SYRIN. IV PRN (02:30)
[2017-05-27] MEDS ORDERED: diphenhydrAMINE 50 MG/ML VIAL IV PRN (02:30)
[2017-05-27] MEDS ORDERED: METOCLOPRAMIDE HCL 10 MG/2 ML VIAL. IV PRN (02:30)
[2017-05-27] MEDS ORDERED: ONDANSETRON PF 4 MG/2 ML VIAL. IV PRN ×2 (02:30)
[2017-05-27] MEDS ORDERED: diphenhydrAMINE HCL 25 MG CAPSULE PO PRN (02:30)
[2017-05-27] MEDS ORDERED: PROCHLORPERAZINE 10 MG/2 ML VIAL. IV PRN (02:30)
[2017-05-27] MEDS ORDERED: POTASSIUM CL 20MEQ IN 0.9%NACL 1,000 ML IV SCH (02:30)
[2017-05-27] MEDS ORDERED: DEXTROSE 50% 25 GM / 50ML DISP.SYRIN. IV PRN (02:45)
[2017-05-27 04:35] VITALS: BP 108/70
[2017-05-27 05:39] VITALS: BP 103/59
[2017-05-27 06:18] LABS: CALCIUM 7.5 mg/dL (8.5-10.1); CREATININE 0.4 mg/dL (0.6-1.0); GFR 192.9; POTASSIUM 5.1 mmol/L (3.5-5.1)
[2017-05-27] MEDS: METOCLOPRAMIDE 5 MG TABLET PO SCH ×2 (07:24→11:37)
[2017-05-27] MEDS: INSULIN ASPART 300 UNITS/3 ML INSULN.PEN SQ SCH ×2 (07:30→11:30)
[2017-05-27] MEDS ORDERED: PANTOPRAZOLE 40 MG TABLET. PO SCH (07:30)
[2017-05-27] MEDS: MAGNESIUM OXIDE 400 MG TABLET PO SCH ×2 (08:54→13:56)
[2017-05-27] MEDS ORDERED: ESCITALOPRAM 5 MG TABLET PO SCH (09:00)
[2017-05-27] MEDS ORDERED: INSULIN DETEMIR 300 UNITS/3 ML INSULN.PEN. SQ SCH (09:00)
[2017-05-27 11:00] VITALS: BP 106/73
--- NOTE | 2017-05-27 14:25 | PDOC1 ---
History of Present Illness Reason for Visit: Intractable N/V History of Present Illness Pt is well-known to me. Has a longstanding dx of Type 1 DM w/ gastroparesis. Was in ER for 6 hours yesterday, given 3 liters fluid and sent home. Came back a few hours later due to intractable vomiting. Labs still unremarkable, sugars controlled. Pt seen this morning, states feeling much better. Says Zofran works best for nausea. Still takes Reglan for gastroparesis. Denies fever, cough, diarrhea, abd pain, or rash. No CP or SOA. Chief Complaint: NAUSEA/VOMITING/DIARRHEA Allergies: Coded Allergies: acetaminophen (Verified Allergy, Intermediate, HIVES, 05/20/17) "WHEN I HAD MY ANKLE BX THEY GAVE ME TYLENOL AND I GOT HIVES ON MY LEG." adhesive tape (Verified Allergy, Intermediate, 05/20/17) I S O L A T I O N *CONTACT* (Verified Allergy, Unknown, 05/20/17) +MRSA nares 05-15-17 Past Medical History Cardiac: No pertinent hx Review of Systems Review Of Systems Fourteen system , review of systems has been reviewed. See HPI for pertinent positives and negative responses, other bustos all other systems are negative, non pertinent or non contributory Allergies: Coded Allergies: acetaminophen (Verified Allergy, Intermediate, HIVES, 05/20/17) "WHEN I HAD MY ANKLE BX THEY GAVE ME TYLENOL AND I GOT HIVES ON MY LEG." adhesive tape (Verified Allergy, Intermediate, 05/20/17) I S O L A T I O N *CONTACT* (Verified Allergy, Unknown, 05/20/17) +MRSA nares 05-15-17 Medications Current Medications Hydromorphone HCl (Dilaudid) 1 mg PRN Q15MIN PRN IV/SQ PAIN GREATER THAN 3/10; Start 05/26/17 at 23:15; Stop 05/27/17 at 23:14 Sodium Chloride 1,000 ml @ 1,000 mls/hr Q1H IV Last administered on 05/26/17t 23:30; Start 05/26/17 at 23:30; Stop 05/27/17 at 00:29; Status DC Sodium Chloride (Normal Saline Flush) 10 ml QSHIFT PRN IV AFTER MEDS AND BLOOD DRAWS; Start 05/26/17 at 23:15; Stop 05/27/17 at 07:34; Status DC Ondansetron HCl (Zofran) 4 mg 1X ONCE IV Last administered on 05/26/17 23:30; Start 05/26/17 at 23:30; Stop 05/26/17 at 23:31; Status DC Sodium Chloride (Normal Saline Flush) 10 ml QSHIFT PRN IV AFTER MEDS AND BLOOD DRAWS; Start 05/26/17 at 23:15; Stop 05/27/17 at 02:34; Status DC Sodium Chloride 1,000 ml @ 1,000 mls/hr Q1H IV Last administered on 05/27/17 01:13; Start 05/26/17 at 23:30; Stop 05/27/17 at 00:29; Status DC Ondansetron HCl (Zofran) 4 mg PRN Q4HRS PRN IV NAUSEA/VOMITING Last administered on 05/27/17 12:27; Start 05/27/17 at 00:00; Stop 05/27/17 at 23:59 Sodium Chloride 1,000 ml @ 150 mls/hr Q6H40M IV ; Start 05/27/17 at 00:30; Stop 05/27/17 at 00:31; Status DC Hydromorphone HCl (Dilaudid) 1 mg PRN Q2HR PRN IV SEVERE PAIN Last administered on 05/27/17 14:07; Start 05/27/17 at 00:00; Stop 05/27/17 at 23:59 Ondansetron HCl (Zofran) 4 mg 1X ONCE IV Last administered on 05/27/17 01:11; Start 05/27/17 at 00:30; Stop 05/27/17 at 00:31; Status DC Sodium Chloride (Normal Saline Flush) 3 ml PRN DAILY PRN IV AFTER MEDS AND BLOOD DRAWS; Start 05/27/17 at 02:30; Stop 05/27/17 at 07:34; Status DC Potassium Chloride/Sodium Chloride 1,000 ml @ 100 mls/hr Q10H IV Last administered on 05/27/17 02:51; Start 05/27/17 at 02:30 Magnesium Hydroxide (Milk Of Magnesia) 2,400 mg PRN Q12HR PRN PO CONSTIPATION; Start 05/27/17 at 02:30 Calcium Carbonate/ Glycine (Tums) 500 mg PRN Q3HRS PRN PO HEARTBURN / GAS; Start 05/27/17 at 02:30 Prochlorperazine Edisylate (Compazine) 10 mg PRN Q4HRS PRN IV NAUSEA/VOMITING; Start 05/27/17 at 02:30 Metoclopramide HCl (Reglan) 10 mg PRN Q6HRS PRN IV NAUSEA/VOMITING; Start at 02:30 Promethazine HCl 12.5 mg/Sodium Chloride 50.5 ml @ 100 mls/hr PRN Q6HRS PRN IV NAUSEA/VOMITING; Start 05/27/17 at 02:30 Ondansetron HCl (Zofran) 4 mg PRN Q8HRS PRN IV NAUSEA/VOMITING; Start 05/27/17 at 02:30 Diphenhydramine HCl (Benadryl) 25 mg PRN Q6HRS PRN PO SEE COMMENTS; Start at 02:30 Diphenhydramine HCl (Benadryl) 25 mg PRN Q6HRS PRN IV SEE COMMENTS; Start at 02:30 Escitalopram Oxalate (Lexapro) 5 mg DAILY PO Last administered on 05/27/17 08: 54; Start 05/27/17 at 09:00 Magnesium Oxide (Magnesium Oxide) 400 mg TID PO Last administered on 05/27/17 13:56; Start 05/27/17 at 09:00 Metoclopramide HCl (Reglan) 10 mg QIDACHS PO Last administered on 05/27/17 11: 37; Start 05/27/17 at 07:30 Pantoprazole Sodium (Protonix) 40 mg DAILYAC PO Last administered on 05/27/17 07:24; Start 05/27/17 at 07:30 Insulin Detemir (Levemir) 15 units BID SQ Last administered on 05/27/17 08:57; Start 05/27/17 at 09:00 Insulin Aspart (NovoLOG) 0-7 UNITS TIDAC SQ ; Start 05/27/17 at 07:30 Dextrose 12.5 gm PRN Q15MIN PRN IV SEE COMMENTS; Start 05/27/17 at 02:45 Active Scripts Active Keflex (Cephalexin) 500 Mg Capsule 1 Cap PO TID Pantoprazole Sodium 40 Mg Tablet.dr 40 Mg PO DAILYAC Escitalopram Oxalate 5 Mg Tablet 5 Mg PO DAILY Novolog Flexpen (Insulin Aspart) 100 Unit/1 Ml Insuln.pen 14 Unit SQ QIDAFTMEAL Magnesium Oxide 400 Mg Tablet 1 Tab PO TID Metoclopramide Hcl 5 Mg Tablet 10 Mg PO QIDACHS Novolog Flexpen (Insulin Aspart) 100 Unit/1 Ml Insuln.pen 0-9 Unit SQ ACHS FOLLOW SUPPLEMENTAL SCALE GIVEN TO YOU Reported Levemir (Insulin Detemir) 100 Unit/1 Ml Vial 15 Unit SQ BID Exam Vital Signs Vital Signs Date Time Temp Pulse Resp B/P (MAP) Pulse Ox O2 Delivery O2 Flow Rate FiO2 05/27/17 14:07 14 Room Air 05/27/17 11:00 97.7 83 106/73 (84) 100 General Appearance: Alert, Oriented X3, Cooperative, No acute distress HEENT: Atraumatic, PERRLA, EOMI, Mucous membr. moist/pink, Other (Neck supple, no JVD, normal ROM) Respiratory: Clear to auscultation, Normal air movement Heart: Regular rate, Normal S1, Normal S2, No murmurs Abdominal: Soft, No tenderness Extremities: No edema Skin: No rashes, No breakdown Neuro: Strength at 5/5 X4 ext, Normal tone, Cranial nerves 3-12 NL Psych/Mental Status: Mental status NL, Mood NL Assessment/Plan Assessment/Plan 1. Intractable N/V: Controlled w/ Zofran. Labs stable. D/C IVF, plan to d/c w/ PRN Zofran Rx. 2. Type 1 DM, uncontrolled: Resume home meds, advance diet slowly. 3. Gastroparesis: Continue Reglan. 4. Disp: F/u with PCP as outpatient. COURSE Allergies Coded Allergies Type Severity Reaction Last Updated Verified acetaminophen Allergy Intermediate HIVES 05/20/17 Yes adhesive tape Allergy Intermediate 05/20/17 Yes I S O L A T I O N *CONTACT* Allergy Unknown 05/20/17 Yes Laboratory Tests Test 05/27/17 00:17 05/27/17 01:03 05/27/17 01:15 05/27/17 01:20 Glucose (Fingerstick) 177 mg/dL (70-99) 184 mg/dL (70-99) Nasal Screen MRSA (PCR) Negative (Negative) White Blood Count 6.0 x10^3/uL (4.0-11.0) Red Blood Count 3.73 x10^6/uL (3.50-5.40) Hemoglobin 10.8 g/dL (12.0-15.5) Hematocrit 32.3 % (36.0-47.0) Mean Corpuscular Volume 87 fL (79-100) Mean Corpuscular Hemoglobin 29 pg (25-35) Mean Corpuscular Hemoglobin Concent 33 g/dL (31-37) Red Cell Distribution Width 16.3 % (11.5-14.5) Platelet Count 317 x10^3/uL (140-400) Neutrophils (%) (Auto) 52 % (31-73) Lymphocytes (%) (Auto) 36 % (24-48) Monocytes (%) (Auto) 9 % (0-9) Eosinophils (%) (Auto) 2 % (0-3) Basophils (%) (Auto) 1 % (0-3) Neutrophils # (Auto) 3.1 x10^3uL (1.8-7.7) Lymphocytes # (Auto) 2.2 x10^3/uL (1.0-4.8) Monocytes # (Auto) 0.5 x10^3/uL (0.0-1.1) Eosinophils # (Auto) 0.1 x10^3/uL (0.0-0.7) Basophils # (Auto) 0.1 x10^3/uL (0.0-0.2) Sodium Level 138 mmol/L (136-145) Potassium Level 3.8 mmol/L (3.5-5.1) Chloride Level 104 mmol/L (98-107) Carbon Dioxide Level 25 mmol/L (21-32) Anion Gap 9 (6-14) Blood Urea Nitrogen 20 mg/dL (7-20) Creatinine 0.6 mg/dL (0.6-1.0) Estimated GFR (Cockcroft-Gault) 120.8 BUN/Creatinine Ratio 33 (6-20) Glucose Level 191 mg/dL (70-99) Calcium Level 7.9 mg/dL (8.5-10.1) Total Bilirubin 0.5 mg/dL (0.2-1.0) Aspartate Amino Transf (AST/SGOT) 18 U/L (15-37) Alanine Aminotransferase (ALT/SGPT) 21 U/L (14-59) Alkaline Phosphatase 78 U/L (46-116) Total Protein 6.5 g/dL (6.4-8.2) Albumin 3.3 g/dL (3.4-5.0) Albumin/Globulin Ratio 1.0 (1.0-1.7) Lipase 39 U/L (73-393) Acetone Level Neg (NEG) Test 05/27/17 05:50 05/27/17 08:07 05/27/17 11:40 Sodium Level 138 mmol/L (136-145) Potassium Level 5.1 mmol/L (3.5-5.1) Chloride Level 108 mmol/L (98-107) Carbon Dioxide Level 23 mmol/L (21-32) Anion Gap 7 (6-14) Blood Urea Nitrogen 19 mg/dL (7-20) Creatinine 0.4 mg/dL (0.6-1.0) Estimated GFR (Cockcroft-Gault) 192.9 Glucose Level 141 mg/dL (70-99) Calcium Level 7.5 mg/dL (8.5-10.1) Glucose (Fingerstick) 129 mg/dL (70-99) 140 mg/dL (70-99) Current Medications Medications (Trade) Dose Ordered Sig/Chevy Route PRN Reason Start Time Stop Time Status Last Admin Dose Admin Hydromorphone HCl (Dilaudid) 1 mg PRN Q15MIN PRN IV/SQ PAIN GREATER THAN 3/10 05/26/17 23:15 05/27/17 23:14 Sodium Chloride 1,000 ml @ 1,000 mls/hr Q1H IV 05/26/17 23:30 05/27/17 00:29 DC 05/26/17 23:30 Sodium Chloride (Normal Saline Flush) 10 ml QSHIFT PRN IV AFTER MEDS AND BLOOD DRAWS 05/26/17 23:15 05/27/17 07:34 DC Ondansetron HCl (Zofran) 4 mg 1X ONCE IV 05/26/17 23:30 05/26/17 23:31 DC 05/26/17 23:30 Sodium Chloride (Normal Saline Flush) 10 ml QSHIFT PRN IV AFTER MEDS AND BLOOD DRAWS 05/26/17 23:15 05/27/17 02:34 DC Sodium Chloride 1,000 ml @ 1,000 mls/hr Q1H IV 05/26/17 23:30 05/27/17 00:29 DC 05/27/17 01:13 Ondansetron HCl (Zofran) 4 mg PRN Q4HRS PRN IV NAUSEA/VOMITING 05/27/17 00:00 05/27/17 23:59 05/27/17 12:27 Sodium Chloride 1,000 ml @ 150 mls/hr Q6H40M IV 05/27/17 00:30 05/27/17 00:31 DC Hydromorphone HCl (Dilaudid) 1 mg PRN Q2HR PRN IV SEVERE PAIN 05/27/17 00:00 05/27/17 23:59 05/27/17 14:07 Ondansetron HCl (Zofran) 4 mg 1X ONCE IV 05/27/17 00:30 05/27/17 00:31 DC 05/27/17 01:11 Sodium Chloride (Normal Saline Flush) 3 ml PRN DAILY PRN IV AFTER MEDS AND BLOOD DRAWS 05/27/17 02:30 05/27/17 07:34 DC Potassium Chloride/Sodium Chloride 1,000 ml @ 100 mls/hr Q10H IV 05/27/17 02:30 05/27/17 02:51 Magnesium Hydroxide (Milk Of Magnesia) 2,400 mg PRN Q12HR PRN PO CONSTIPATION 05/27/17 02:30 Calcium Carbonate/ Glycine (Tums) 500 mg PRN Q3HRS PRN PO HEARTBURN / GAS 05/27/17 02:30 Prochlorperazine Edisylate (Compazine) 10 mg PRN Q4HRS PRN IV NAUSEA/VOMITING 05/27/17 02:30 Metoclopramide HCl (Reglan) 10 mg PRN Q6HRS PRN IV NAUSEA/VOMITING 05/27/17 02:30 Promethazine HCl 12.5 mg/Sodium Chloride 50.5 ml @ 100 mls/hr PRN Q6HRS PRN IV NAUSEA/VOMITING 05/27/17 02:30 Ondansetron HCl (Zofran) 4 mg PRN Q8HRS PRN IV NAUSEA/VOMITING 05/27/17 02:30 Diphenhydramine HCl (Benadryl) 25 mg PRN Q6HRS PRN PO SEE COMMENTS 05/27/17 02:30 Diphenhydramine HCl (Benadryl) 25 mg PRN Q6HRS PRN IV SEE COMMENTS 05/27/17 02:30 Escitalopram Oxalate (Lexapro) 5 mg DAILY PO 05/27/17 09:00 05/27/17 08:54 Magnesium Oxide (Magnesium Oxide) 400 mg TID PO 05/27/17 09:00 05/27/17 13:56 Metoclopramide HCl (Reglan) 10 mg QIDACHS PO 05/27/17 07:30 05/27/17 11:37 Pantoprazole Sodium (Protonix) 40 mg DAILYAC PO 05/27/17 07:30 05/27/17 07:24 Insulin Detemir (Levemir) 15 units BID SQ 05/27/17 09:00 05/27/17 08:57 Insulin Aspart (NovoLOG) 0-7 UNITS TIDAC SQ 05/27/17 07:30 Dextrose 12.5 gm PRN Q15MIN PRN IV SEE COMMENTS 05/27/17 02:45 Vital Signs Date Time Temp Pulse Resp B/P (MAP) Pulse Ox O2 Delivery O2 Flow Rate FiO2 05/27/17 14:07 14 Room Air 05/27/17 11:00 97.7 83 106/73 (84) 100 GABRIELLA CASTANEDA MD May 27, 2017 14:25
[2017-05-27] MEDS ORDERED: ONDA4TAB10 SL (14:26)
--- NOTE | 2017-05-27 14:28 | DISCH ---
DISCHARGE INSTRUCTIONS-DC Condition on Discharge Condition on Discharge: Stable Problems: Activity after Discharge Activity Instructions for Disc: No restrictions Diet after Discharge Diet after Discharge: Diabetic No Calorie Level Checks after Discharge Checks after discharge: Check blood sugar, ac/hs Contacting the DR. after DC Call your doctor for: If your condition worsens Follow-Up Follow up with: PCP this week GABRIELLA CASTANEDA MD May 27, 2017 14:28
--- NOTE | 2017-05-27 14:32 | PDOC3 ---
Discharge Summary Discharge Summary Date of Admission Date of Admission: May 27, 2017 at 00:00 Admitting Diagnosis Intractable N/V Type 1 DM Date of Discharge: May 27, 2017 Discharge Diagnosis Intractable N/V Gastroparesis due to Type 1 DM Laboratory Findings Laboratory Tests Test 05/27/17 00:17 05/27/17 01:03 05/27/17 01:15 05/27/17 01:20 Glucose (Fingerstick) 177 mg/dL (70-99) 184 mg/dL (70-99) Nasal Screen MRSA (PCR) Negative (Negative) White Blood Count 6.0 x10^3/uL (4.0-11.0) Red Blood Count 3.73 x10^6/uL (3.50-5.40) Hemoglobin 10.8 g/dL (12.0-15.5) Hematocrit 32.3 % (36.0-47.0) Mean Corpuscular Volume 87 fL (79-100) Mean Corpuscular Hemoglobin 29 pg (25-35) Mean Corpuscular Hemoglobin Concent 33 g/dL (31-37) Red Cell Distribution Width 16.3 % (11.5-14.5) Platelet Count 317 x10^3/uL (140-400) Neutrophils (%) (Auto) 52 % (31-73) Lymphocytes (%) (Auto) 36 % (24-48) Monocytes (%) (Auto) 9 % (0-9) Eosinophils (%) (Auto) 2 % (0-3) Basophils (%) (Auto) 1 % (0-3) Neutrophils # (Auto) 3.1 x10^3uL (1.8-7.7) Lymphocytes # (Auto) 2.2 x10^3/uL (1.0-4.8) Monocytes # (Auto) 0.5 x10^3/uL (0.0-1.1) Eosinophils # (Auto) 0.1 x10^3/uL (0.0-0.7) Basophils # (Auto) 0.1 x10^3/uL (0.0-0.2) Sodium Level 138 mmol/L (136-145) Potassium Level 3.8 mmol/L (3.5-5.1) Chloride Level 104 mmol/L (98-107) Carbon Dioxide Level 25 mmol/L (21-32) Anion Gap 9 (6-14) Blood Urea Nitrogen 20 mg/dL (7-20) Creatinine 0.6 mg/dL (0.6-1.0) Estimated GFR (Cockcroft-Gault) 120.8 BUN/Creatinine Ratio 33 (6-20) Glucose Level 191 mg/dL (70-99) Calcium Level 7.9 mg/dL (8.5-10.1) Total Bilirubin 0.5 mg/dL (0.2-1.0) Aspartate Amino Transf (AST/SGOT) 18 U/L (15-37) Alanine Aminotransferase (ALT/SGPT) 21 U/L (14-59) Alkaline Phosphatase 78 U/L (46-116) Total Protein 6.5 g/dL (6.4-8.2) Albumin 3.3 g/dL (3.4-5.0) Albumin/Globulin Ratio 1.0 (1.0-1.7) Lipase 39 U/L (73-393) Acetone Level Neg (NEG) Test 05/27/17 05:50 05/27/17 08:07 05/27/17 11:40 Sodium Level 138 mmol/L (136-145) Potassium Level 5.1 mmol/L (3.5-5.1) Chloride Level 108 mmol/L (98-107) Carbon Dioxide Level 23 mmol/L (21-32) Anion Gap 7 (6-14) Blood Urea Nitrogen 19 mg/dL (7-20) Creatinine 0.4 mg/dL (0.6-1.0) Estimated GFR (Cockcroft-Gault) 192.9 Glucose Level 141 mg/dL (70-99) Calcium Level 7.5 mg/dL (8.5-10.1) Glucose (Fingerstick) 129 mg/dL (70-99) 140 mg/dL (70-99) Hospital Course Pt initially treated w/ 3 liters IVF in ER over 6 hrs. Labs were ok. Sent home. Came back w/ n/v. Admitted overnight, received IV Zofran which resolved sx's. Labs still stable, no sign of DKA or hyperglycemia. Pt given Rx for Zofran. Discussed risk of prolonged QT w/ Zofran and Lexapro, instructed pt to avoid taking more than 3 tabs Zofran in a 24 hr period. Pt has currently and previously tolerated this combination. Is on low doses of both, so risk of interaction should be low. Condition at Discharge: Stable Home Meds Active Scripts Cephalexin (KEFLEX) 500 Mg Capsule, 1 CAP PO TID, #21 CAP Prov:SONY WEAEVR MD 05/17/17 Pantoprazole Sodium (PANTOPRAZOLE SODIUM) 40 Mg Tablet.dr, 40 MG PO DAILYAC, # 60 TAB 2 Refills Prov:BARRY MORELAND DO 03/12/17 Escitalopram Oxalate (ESCITALOPRAM OXALATE) 5 Mg Tablet, 5 MG PO DAILY, #30 TAB 3 Refills Prov:BARRY MORELAND DO 01/27/17 Insulin Aspart (NOVOLOG FLEXPEN) 100 Unit/1 Ml Insuln.pen, 14 UNIT SQ QIDAFTMEAL for DIABETES, #2 SYR 5 Refills Prov:BARRY MORELAND DO 01/27/17 Magnesium Oxide (MAGNESIUM OXIDE) 400 Mg Tablet, 1 TAB PO TID, #90 TAB 5 Refills Prov:BARRY MORELAND DO 11/20/16 Metoclopramide Hcl (METOCLOPRAMIDE HCL) 5 Mg Tablet, 10 MG PO QIDACHS, #120 TAB 3 Refills Prov:BARRY MORELAND DO 11/04/16 Insulin Aspart (NOVOLOG FLEXPEN) 100 Unit/1 Ml Insuln.pen, 0-9 UNIT SQ achs for diabetes, #10 SYR 6 Refills FOLLOW SUPPLEMENTAL SCALE GIVEN TO YOU Prov:BARRY MORELAND DO 05/10/16 Reported Medications Insulin Detemir (LEVEMIR) 100 Unit/1 Ml Vial, 15 UNIT SQ BID, VIAL 05/11/17 Inpatient Meds Current Medications Hydromorphone HCl (Dilaudid) 1 mg PRN Q15MIN PRN IV/SQ PAIN GREATER THAN 3/10; Start 05/26/17 at 23:15; Stop 05/27/17 at 23:14 Sodium Chloride 1,000 ml @ 1,000 mls/hr Q1H IV Last administered on 05/26/17t 23:30; Start 05/26/17 at 23:30; Stop 05/27/17 at 00:29; Status DC Sodium Chloride (Normal Saline Flush) 10 ml QSHIFT PRN IV AFTER MEDS AND BLOOD DRAWS; Start 05/26/17 at 23:15; Stop 05/27/17 at 07:34; Status DC Ondansetron HCl (Zofran) 4 mg 1X ONCE IV Last administered on 05/26/17 23:30; Start 05/26/17 at 23:30; Stop 05/26/17 at 23:31; Status DC Sodium Chloride (Normal Saline Flush) 10 ml QSHIFT PRN IV AFTER MEDS AND BLOOD DRAWS; Start 05/26/17 at 23:15; Stop 05/27/17 at 02:34; Status DC Sodium Chloride 1,000 ml @ 1,000 mls/hr Q1H IV Last administered on 05/27/17 01:13; Start 05/26/17 at 23:30; Stop 05/27/17 at 00:29; Status DC Ondansetron HCl (Zofran) 4 mg PRN Q4HRS PRN IV NAUSEA/VOMITING Last administered on 05/27/17 12:27; Start 05/27/17 at 00:00; Stop 05/27/17 at 23:59 Sodium Chloride 1,000 ml @ 150 mls/hr Q6H40M IV ; Start 05/27/17 at 00:30; Stop 05/27/17 at 00:31; Status DC Hydromorphone HCl (Dilaudid) 1 mg PRN Q2HR PRN IV SEVERE PAIN Last administered on 05/27/17 14:07; Start 05/27/17 at 00:00; Stop 05/27/17 at 23:59 Ondansetron HCl (Zofran) 4 mg 1X ONCE IV Last administered on 05/27/17 01:11; Start 05/27/17 at 00:30; Stop 05/27/17 at 00:31; Status DC Sodium Chloride (Normal Saline Flush) 3 ml PRN DAILY PRN IV AFTER MEDS AND BLOOD DRAWS; Start 05/27/17 at 02:30; Stop 05/27/17 at 07:34; Status DC Potassium Chloride/Sodium Chloride 1,000 ml @ 100 mls/hr Q10H IV Last administered on 05/27/17 02:51; Start 05/27/17 at 02:30 Magnesium Hydroxide (Milk Of Magnesia) 2,400 mg PRN Q12HR PRN PO CONSTIPATION; Start 05/27/17 at 02:30 Calcium Carbonate/ Glycine (Tums) 500 mg PRN Q3HRS PRN PO HEARTBURN / GAS; Start 05/27/17 at 02:30 Prochlorperazine Edisylate (Compazine) 10 mg PRN Q4HRS PRN IV NAUSEA/VOMITING; Start 05/27/17 at 02:30 Metoclopramide HCl (Reglan) 10 mg PRN Q6HRS PRN IV NAUSEA/VOMITING; Start at 02:30 Promethazine HCl 12.5 mg/Sodium Chloride 50.5 ml @ 100 mls/hr PRN Q6HRS PRN IV NAUSEA/VOMITING; Start 05/27/17 at 02:30 Ondansetron HCl (Zofran) 4 mg PRN Q8HRS PRN IV NAUSEA/VOMITING; Start 05/27/17 at 02:30 Diphenhydramine HCl (Benadryl) 25 mg PRN Q6HRS PRN PO SEE COMMENTS; Start at 02:30 Diphenhydramine HCl (Benadryl) 25 mg PRN Q6HRS PRN IV SEE COMMENTS; Start at 02:30 Escitalopram Oxalate (Lexapro) 5 mg DAILY PO Last administered on 05/27/17 08: 54; Start 05/27/17 at 09:00 Magnesium Oxide (Magnesium Oxide) 400 mg TID PO Last administered on 05/27/17 13:56; Start 05/27/17 at 09:00 Metoclopramide HCl (Reglan) 10 mg QIDACHS PO Last administered on 05/27/17 11: 37; Start 05/27/17 at 07:30 Pantoprazole Sodium (Protonix) 40 mg DAILYAC PO Last administered on 05/27/17 07:24; Start 05/27/17 at 07:30 Insulin Detemir (Levemir) 15 units BID SQ Last administered on 05/27/17 08:57; Start 05/27/17 at 09:00 Insulin Aspart (NovoLOG) 0-7 UNITS TIDAC SQ ; Start 05/27/17 at 07:30 Dextrose 12.5 gm PRN Q15MIN PRN IV SEE COMMENTS; Start 05/27/17 at 02:45 Active Scripts Active Keflex (Cephalexin) 500 Mg Capsule 1 Cap PO TID Pantoprazole Sodium 40 Mg Tablet.dr 40 Mg PO DAILYAC Escitalopram Oxalate 5 Mg Tablet 5 Mg PO DAILY Novolog Flexpen (Insulin Aspart) 100 Unit/1 Ml Insuln.pen 14 Unit SQ QIDAFTMEAL Magnesium Oxide 400 Mg Tablet 1 Tab PO TID Metoclopramide Hcl 5 Mg Tablet 10 Mg PO QIDACHS Novolog Flexpen (Insulin Aspart) 100 Unit/1 Ml Insuln.pen 0-9 Unit SQ ACHS FOLLOW SUPPLEMENTAL SCALE GIVEN TO YOU Reported Levemir (Insulin Detemir) 100 Unit/1 Ml Vial 15 Unit SQ BID Activity: unrestricted Diet: Consistent Carbohydrate Follow-up Plan With PCP this week GABRIELLA CASTANEDA MD May 27, 2017 14:32
[2017-05-27 15:00] VITALS: BP 103/64
== END 2017-05-27 16:15 | disposition home or self-care (01) | DRG 74 ==
LOC: ER 22:53 → ICU 05-27 → 1 SOUTH 05-27 06:25
PROVIDERS: ADMIT Family Medicine; ATTEND Family Medicine
DX: E10.43 Type 1 diabetes mellitus with diabetic autonomic (poly)neuropathy (principal); E10.65 Type 1 diabetes mellitus with hyperglycemia; G89.29 Other chronic pain; K21.9 Gastro-esophageal reflux disease without esophagitis; K31.84 Gastroparesis; F12.90 Cannabis use, unspecified, uncomplicated; F32.9 Major depressive disorder, single episode, unspecified; F17.210 Nicotine dependence, cigarettes, uncomplicated; Z88.8 Allergy status to other drugs, medicaments and biological substances; Z91.041 Radiographic dye allergy status
CPT/HCPCS: 36415; 80048; 80053; 82010; 82947; 83690; 85027; 87641; 93005; 96361; 96374; J1170; J1815; J2405; J8597; 99285-25; J7030

== ENCOUNTER 2017-05-29 10:43 | Emergency (ER) | payer BC ==
[~2017-05-29 10:43] MED LIST changes: +ONDA4TAB10 SL
[2017-05-29] MEDS ORDERED: HALOPERIDOL LACT 5 MG/ML VIAL. IVP ONE (11:00)
[2017-05-29] MEDS ORDERED: FAMOTIDINE 20 MG/2 ML VIAL IVP ONE (11:15)
[2017-05-29 11:39] LABS: BASO # 0.1 x10^3/uL (0.0-0.2); BASO % 1 % (0-3); EOS # 0.1 x10^3/uL (0.0-0.7); EOS % 2 % (0-3); HEMATOCRIT 36.5 % (36.0-47.0); HEMOGLOBIN 12.2 g/dL (12.0-15.5); LYMPH % 37 % (24-48); MEAN CORPUSCULAR HEMOGLOBIN 29 pg (25-35); MEAN CORPUSCULAR HGB CONC 34 g/dL (31-37); MEAN CORPUSCULAR VOLUME 86 fL (79-100); MONO # 0.5 x10^3/uL (0.0-1.1); MONO % 9 % (0-9); NEUT # 2.7 x10^3uL (1.8-7.7); NEUT % 51 % (31-73); PLATELET COUNT 354 x10^3/uL (140-400); RED BLOOD COUNT 4.26 x10^6/uL (3.50-5.40); RED CELL DISTRIBUTION WIDTH 16.4 % (11.5-14.5); WHITE BLOOD COUNT 5.3 x10^3/uL (4.0-11.0)
[2017-05-29 11:41] LABS: AMPHETAMINE/METHAMPHETAMINE POS (NEG); BARBITURATES NEG (NEG); BENZODIAZEPINES NEG (NEG); CANNABINOIDS NEG (NEG); COCAINE NEG (NEG); METHADONE NEG (NEG); OPIATES NEG (NEG); PHENCYCLIDINE NEG (NEG)
[2017-05-29 11:47] LABS: BILIRUBIN,URINE NEG (NEG); CLARITY,URINE CLOUDY; COLOR,URINE YELLOW; GLUCOSE,URINE NEG (NEG)
[2017-05-29 11:48] LABS: ALBUMIN 3.9 g/dL (3.4-5.0); CALCIUM 9.1 mg/dL (8.5-10.1); CREATININE 0.6 mg/dL (0.6-1.0); GFR 120.8; POTASSIUM 3.6 mmol/L (3.5-5.1); TOTAL BILIRUBIN 0.4 mg/dL (0.2-1.0); TOTAL PROTEIN 7.8 g/dL (6.4-8.2)
[2017-05-29 11:48] LABS: AMORPHOUS SEDIMENT,UR PRESENT /HPF; BACTERIA,URINE FEW /HPF (0-FEW); NITRITE,URINE NEG (NEG); RBC,URINE OCC /HPF (0-2); SQUAMOUS EPITHELIAL CELL,UR MOD /LPF; UROBILINOGEN,URINE 2 mg/dL (0.2 mg/dL)
[2017-05-29 11:52] LABS: PREG TEST PT QUAL NEGATIVE (NEG)
[2017-05-29 12:53] VITALS: BP 123/71
--- NOTE | 2017-05-29 16:43 | ED.ADGEN ---
Past History Past Medical History: Depression, Diabetes, GERD Additional Past Medical Histor: pt reports several admissions for "high blood sugar" Past Surgical History: Other Smoking: Less than 1pk/day Alcohol Use: None Drug Use: Marijuana, Methamphetamine, Opiates Adult General Chief Complaint Chief Complaint Vomiting HPI HPI Patient is a 87-year-old with history of insulin-dependent diabetes and gastroparesis well-known to this emergency department who presents with hyperglycemia and nausea vomiting starting this morning. Patient states she last took her insulin 2 hours prior to ED arrival. Blood sugar read high or greater than 500. Patient's also multiple times. Last menstrual period was greater than year ago with history of amenorrhea. Review of Systems Review of Systems ROS as per HPI. Current Medications Current Medications Current Medications Medications (Trade) Dose Ordered Sig/Chevy Start Time Stop Time Status Last Admin Dose Admin Famotidine (Pepcid) 20 mg 1X ONCE 05/29/17 11:15 05/29/17 11:38 DC 05/29/17 11:35 20 MG Haloperidol Lactate (Haldol) 2.5 mg 1X ONCE 05/29/17 11:00 05/29/17 11:38 DC 05/29/17 11:35 5 MG Allergies Allergies Allergies Coded Allergies Type Severity Reaction Last Updated Verified acetaminophen Allergy Intermediate HIVES 05/20/17 Yes adhesive tape Allergy Intermediate 05/20/17 Yes I S O L A T I O N *CONTACT* Allergy Unknown 05/20/17 Yes Physical Exam Physical Exam Constitutional: Well developed, well nourished, anxious, constant fidgeting. HENT: Normocephalic, atraumatic, bilateral external ears normal, oropharynx moist, no oral exudates, nose normal. Eyes: PERRLA, EOMI, conjunctiva normal, no discharge. Neck: Normal range of motion. Cardiovascular:Heart rate regular rhythm, no murmur. Lungs & Thorax: Bilateral breath sounds clear to auscultation. Abdomen: Bowel sounds normal, soft, non distended, mid epigastric tenderness, no masses. Skin: Warm, dry, no erythema, no rash. Back: No tenderness. Extremities: No tenderness. Neurologic: Alert and oriented X 3, normal motor function, normal sensory function, no focal deficits noted. Psychologic: Affect normal, judgement normal, mood normal. Current Patient Data Vital Signs Vital Signs Date Time Temp Pulse Resp B/P (MAP) Pulse Ox O2 Delivery O2 Flow Rate FiO2 05/29/17 12:53 85 16 123/71 (88) 96 Room Air 05/29/17 11:55 97.7 Lab Results Laboratory Tests Test 05/29/17 11:15 05/29/17 11:18 White Blood Count 5.3 x10^3/uL (4.0-11.0) Red Blood Count 4.26 x10^6/uL (3.50-5.40) Hemoglobin 12.2 g/dL (12.0-15.5) Hematocrit 36.5 % (36.0-47.0) Mean Corpuscular Volume 86 fL (79-100) Mean Corpuscular Hemoglobin 29 pg (25-35) Mean Corpuscular Hemoglobin Concent 34 g/dL (31-37) Red Cell Distribution Width 16.4 % (11.5-14.5) H Platelet Count 354 x10^3/uL (140-400) Neutrophils (%) (Auto) 51 % (31-73) Lymphocytes (%) (Auto) 37 % (24-48) Monocytes (%) (Auto) 9 % (0-9) Eosinophils (%) (Auto) 2 % (0-3) Basophils (%) (Auto) 1 % (0-3) Neutrophils # (Auto) 2.7 x10^3uL (1.8-7.7) Lymphocytes # (Auto) 2.0 x10^3/uL (1.0-4.8) Monocytes # (Auto) 0.5 x10^3/uL (0.0-1.1) Eosinophils # (Auto) 0.1 x10^3/uL (0.0-0.7) Basophils # (Auto) 0.1 x10^3/uL (0.0-0.2) Sodium Level 139 mmol/L (136-145) Potassium Level 3.6 mmol/L (3.5-5.1) Chloride Level 100 mmol/L (98-107) Carbon Dioxide Level 30 mmol/L (21-32) Anion Gap 9 (6-14) Blood Urea Nitrogen 16 mg/dL (7-20) Creatinine 0.6 mg/dL (0.6-1.0) Estimated GFR (Cockcroft-Gault) 120.8 BUN/Creatinine Ratio 27 (6-20) H Glucose Level 193 mg/dL (70-99) H Calcium Level 9.1 mg/dL (8.5-10.1) Total Bilirubin 0.4 mg/dL (0.2-1.0) Aspartate Amino Transferase (AST) 22 U/L (15-37) Alanine Aminotransferase (ALT) 25 U/L (14-59) Alkaline Phosphatase 87 U/L (46-116) Total Protein 7.8 g/dL (6.4-8.2) Albumin 3.9 g/dL (3.4-5.0) Albumin/Globulin Ratio 1.0 (1.0-1.7) Lipase 36 U/L (73-393) L Serum Test, Qualitative Negative (NEG) Acetone Level Neg (NEG) Urine Collection Type Unknown Urine Color Yellow Urine Clarity Cloudy Urine pH 7.5 Urine Specific [place] 1.020 Urine Protein Trace (NEG-TRACE) Urine Glucose (UA) Neg mg/dL (NEG) Urine Ketones (Stick) 15 mg/dL (NEG) Urine Blood Neg (NEG) Urine Nitrite Neg (NEG) Urine Bilirubin Neg (NEG) Urine Urobilinogen Dipstick 2 mg/dL (0.2 mg/dL) Urine Leukocyte Esterase Neg (NEG) Urine RBC Occ /HPF (0-2) Urine WBC 1-4 /HPF (0-4) Urine Squamous Epithelial Cells Mod /LPF Urine Amorphous Sediment Present /HPF Urine Bacteria Few /HPF (0-FEW) Urine Mucus Slight /LPF Urine Opiates Screen Neg (NEG) Urine Methadone Screen Neg (NEG) Urine Barbiturates Neg (NEG) Urine Phencyclidine Screen Neg (NEG) Urine Amphetamine/Methamphetamine Pos (NEG) Urine Benzodiazepines Screen Neg (NEG) Urine Cocaine Screen Neg (NEG) Urine Cannabinoids Screen Neg (NEG) Urine Ethyl Alcohol Neg (NEG) EKG EKG [] Radiology/Procedures Radiology/Procedures [] Course & Med Decision Making Course & Med Decision Making Pertinent Labs and Imaging studies reviewed. (See chart for details) [Blood sugar less than 200. Nausea and vomiting resolved with tx. UDS positive for methamphetamines, which is likely caused the patient's symptoms Final Impression Final Impression [1. Nausea and vomiting 2. hyperglycemia 3. Methamphetamine abuse] Problems: Dragon Disclaimer Dragon Disclaimer This electronic medical record was generated, in whole or in part, using a voice recognition dictation system. ROXY SMALL DO May 29, 2017 16:43
== END 2017-05-29 13:01 | disposition home or self-care (01) ==
LOC: ER 10:43
DX: E11.65 Type 2 diabetes mellitus with hyperglycemia (principal); F15.10 Other stimulant abuse, uncomplicated; K21.9 Gastro-esophageal reflux disease without esophagitis; K31.84 Gastroparesis; F17.200 Nicotine dependence, unspecified, uncomplicated; F12.10 Cannabis abuse, uncomplicated; F11.10 Opioid abuse, uncomplicated; Z79.4 Long term (current) use of insulin; Z88.8 Allergy status to other drugs, medicaments and biological substances; Z88.6 Allergy status to analgesic agent; Z91.041 Radiographic dye allergy status
CPT/HCPCS: 36415; 80053; 80305; 80320; 81001; 82010; 83690; 84703; 85027; 96374; 96375; 99284; J1630; S0028; G0481

== ENCOUNTER 2017-05-31 09:04 | Inpatient (IN) | payer BC ==
[~2017-05-31] VITALS: Ht 170.2 cm; Wt 62.4 kg
[2017-05-31] MEDS ORDERED: IV NORMAL SALINE 1,000ML 1,000 ML IV ONE ×2 (09:30→10:30)
[2017-05-31 09:54] LABS: BASO # 0.1 x10^3/uL (0.0-0.2); BASO % 1 % (0-3); EOS # 0.1 x10^3/uL (0.0-0.7); EOS % 1 % (0-3); HEMATOCRIT 43.1 % (36.0-47.0); HEMOGLOBIN 13.7 g/dL (12.0-15.5); LYMPH # 2.1 x10^3/uL (1.0-4.8); LYMPH % 27 % (24-48); MEAN CORPUSCULAR HEMOGLOBIN 29 pg (25-35); MEAN CORPUSCULAR HGB CONC 32 g/dL (31-37); MEAN CORPUSCULAR VOLUME 90 fL (79-100); MONO # 0.3 x10^3/uL (0.0-1.1); MONO % 4 % (0-9); NEUT # 5.2 x10^3uL (1.8-7.7); NEUT % 67 % (31-73); PLATELET COUNT 455 x10^3/uL (140-400); RED BLOOD COUNT 4.79 x10^6/uL (3.50-5.40); RED CELL DISTRIBUTION WIDTH 16.3 % (11.5-14.5); WHITE BLOOD COUNT 7.8 x10^3/uL (4.0-11.0)
[2017-05-31 09:56] LABS: BGAS PH 7.22 (7.35-7.45)
[2017-05-31] MEDS ORDERED: FAMOTIDINE 20 MG/2 ML VIAL IVP ONE (10:00)
[2017-05-31] MEDS ORDERED: HALOPERIDOL LACT 5 MG/ML VIAL. IVP ONE (10:00)
[2017-05-31 10:13] LABS: ALBUMIN 4.3 g/dL (3.4-5.0); CALCIUM 9.5 mg/dL (8.5-10.1); CREATININE 1.1 mg/dL (0.6-1.0); POTASSIUM 5.1 mmol/L (3.5-5.1); TOTAL BILIRUBIN 0.8 mg/dL (0.2-1.0); TOTAL PROTEIN 8.4 g/dL (6.4-8.2)
--- NOTE | 2017-05-31 10:22 | ED.ADGEN ---
Past History Past Medical History: Depression, Diabetes, GERD Additional Past Medical Histor: pt reports several admissions for "high blood sugar" Past Surgical History: Other Smoking: Less than 1pk/day Alcohol Use: None Drug Use: Marijuana, Methamphetamine, Opiates Adult General Chief Complaint Chief Complaint Nausea vomiting, hyperglycemia HPI HPI Patient is a 27 showed female well-known to this emergency department with history of insulin-dependent diabetes, gastroparesis, polysubstance frequent abuse and frequent episodes of DKA who presents with epigastric abdominal pain nausea vomiting starting earlier this morning. Patient states her glucometer read high. Patient took 10 units of regular insulin this morning and 15 units of Levemir last evening. She last smoked methamphetamines 2 days ago. Denies additional drug or alcohol abuse. Patient was evaluated 2 days ago and 4 days ago for nausea vomiting hyperglycemia metastatic discharged on both occasions. Patient reports amenorrhea for the past 12 months. Review of Systems Review of Systems ROS as per HPI. Current Medications Current Medications Current Medications Medications (Trade) Dose Ordered Sig/Chevy Start Time Stop Time Status Last Admin Dose Admin Famotidine (Pepcid) 20 mg 1X ONCE 05/31/17 10:00 05/31/17 10:01 DC 05/31/17 10:01 20 MG Haloperidol Lactate (Haldol) 2.5 mg 1X ONCE 05/31/17 10:00 05/31/17 10:01 DC 05/31/17 10:02 2.5 MG Insulin Human Regular (NovoLIN R) 10 unit 1X ONCE 05/31/17 10:15 05/31/17 10:16 UNV Sodium Chloride 1,000 ml @ 1,000 mls/hr 1X ONCE 05/31/17 10:15 05/31/17 11:14 UNV Allergies Allergies Allergies Coded Allergies Type Severity Reaction Last Updated Verified acetaminophen Allergy Intermediate HIVES 05/20/17 Yes adhesive tape Allergy Intermediate 05/20/17 Yes I S O L A T I O N *CONTACT* Allergy Unknown 05/20/17 Yes Physical Exam Physical Exam Constitutional: Clammy, Anxious, fidgeting, acutely ill-appearing. Smells ketotic. HENT: Normocephalic, atraumatic, bilateral external ears normal, oropharynx moist, no oral exudates, nose normal. Eyes: PERRLA, EOMI, conjunctiva injected. Neck: Normal range of motion, no tenderness, supple. Cardiovascular: Tachycardic. Lungs & Thorax: Tachypnea with deep breathing. Abdomen: Bowel sounds normal, soft, mid epigastric tenderness. Skin: Warm, dry. Back: No tenderness. Extremities: No tenderness. Neurologic: Alert and oriented X 3, normal motor function, normal sensory function, no focal deficits noted. Psychologic: Affect, anxious. Current Patient Data Vital Signs Vital Signs Date Time Temp Pulse Resp B/P (MAP) Pulse Ox O2 Delivery O2 Flow Rate FiO2 05/31/17 09:05 97.9 128 20 98 Room Air Lab Results Laboratory Tests Test 05/31/17 09:20 05/31/17 09:34 05/31/17 09:43 Glucose (Fingerstick) 507 mg/dL (70-99) *H Blood pH 7.22 (7.35-7.45) L Blood Gas PCO2 22 mmHg (35-45) L Blood Gas PO2 46 mmHg (80-100) *L Blood Gas HCO3 9 mmol/L (22-26) L Arterial Bld O2 Saturation (Calc) 74 % (92-99) L FiO2 21 % White Blood Count 7.8 x10^3/uL (4.0-11.0) Red Blood Count 4.79 x10^6/uL (3.50-5.40) Hemoglobin 13.7 g/dL (12.0-15.5) Hematocrit 43.1 % (36.0-47.0) Mean Corpuscular Volume 90 fL (79-100) Mean Corpuscular Hemoglobin 29 pg (25-35) Mean Corpuscular Hemoglobin Concent 32 g/dL (31-37) Red Cell Distribution Width 16.3 % (11.5-14.5) H Platelet Count 455 x10^3/uL (140-400) H Neutrophils (%) (Auto) 67 % (31-73) Lymphocytes (%) (Auto) 27 % (24-48) Monocytes (%) (Auto) 4 % (0-9) Eosinophils (%) (Auto) 1 % (0-3) Basophils (%) (Auto) 1 % (0-3) Neutrophils # (Auto) 5.2 x10^3uL (1.8-7.7) Lymphocytes # (Auto) 2.1 x10^3/uL (1.0-4.8) Monocytes # (Auto) 0.3 x10^3/uL (0.0-1.1) Eosinophils # (Auto) 0.1 x10^3/uL (0.0-0.7) Basophils # (Auto) 0.1 x10^3/uL (0.0-0.2) Acetone Level Mod pos (NEG) EKG EKG [] Radiology/Procedures Radiology/Procedures [] Course & Med Decision Making Course & Med Decision Making Pertinent Labs and Imaging studies reviewed. (See chart for details) [Hyperglycemia, acetone positive. Patient declines ABG, PH 7.22 on VBG, bicarb 9. IVF bolus, subQ insulin and Haldol given for control nausea vomiting and abdominal pain. Dr. Grigsby to admit. Final Impression Final Impression [1. DKA] Problems: Dragon Disclaimer Dragon Disclaimer This electronic medical record was generated, in whole or in part, using a voice recognition dictation system. ROXY SMALL DO May 31, 2017 10:22
[2017-05-31] MEDS ORDERED: ONDANSETRON PF 4 MG/2 ML VIAL. IV PRN (10:30)
[2017-05-31] MEDS ORDERED: INSULIN REGULAR 100 UNIT/ML 10ML VIAL. SQ ONE (10:45)
[2017-05-31] MEDS ORDERED: IV NORMAL SALINE 1,000ML 1,000 ML IV SCH (10:45)
[2017-05-31] MEDS ORDERED: KETOROLAC 30 MG/ML VIAL. IV PRN (11:30)
[2017-05-31] MEDS ORDERED: POTASSIUM CHLORIDE 10MEQ 100 ML IV PRN (11:30)
[2017-05-31] MEDS ORDERED: MAGNESIUM SULFATE 2GM 50 ML IV PRN (11:30)
[2017-05-31] MEDS ORDERED: INSULIN REGULAR 150 UNIT in 0.9 % SODIUM CHLORIDE 150ML 150 ML IV PRN (12:00)
[2017-05-31 12:07] VITALS: BP 102/66
[2017-05-31] MEDS: IV NORMAL SALINE 1,000ML 1,000 ML IV SCH ×4 (12:27→20:04)
[2017-05-31 12:59] VITALS: BP 102/66
[2017-05-31 14:41] VITALS: BP 99/52
[2017-05-31 15:28] LABS: CALCIUM 7.7 mg/dL (8.5-10.1); POTASSIUM 4.2 mmol/L (3.5-5.1)
[2017-05-31] MEDS: DEXTROSE 50% 25 GM / 50ML DISP.SYRIN. IV PRN ×2 (15:48→17:06)
[2017-05-31 16:50] LABS: AMPHETAMINE/METHAMPHETAMINE POS (NEG); BARBITURATES NEG (NEG); BENZODIAZEPINES NEG (NEG); CANNABINOIDS NEG (NEG); COCAINE NEG (NEG); METHADONE NEG (NEG); OPIATES NEG (NEG); PHENCYCLIDINE NEG (NEG)
[2017-05-31 18:30] LABS: BILIRUBIN,URINE NEG (NEG); CLARITY,URINE HAZY; COLOR,URINE YELLOW; GLUCOSE,URINE 500 mg/dL (NEG); NITRITE,URINE NEG (NEG); UROBILINOGEN,URINE 0.2 mg/dL (0.2 mg/dL)
[2017-05-31 18:31] LABS: BACTERIA,URINE FEW /HPF (0-FEW); RBC,URINE OCC /HPF (0-2); SQUAMOUS EPITHELIAL CELL,UR MOD /LPF
[2017-05-31 18:32] LABS: HYALINE CASTS, URINE FEW /HPF
[2017-05-31 19:20] VITALS: BP 115/66
[2017-05-31 22:45] VITALS: BP 106/72
--- NOTE | 2017-06-01 | ACF ---
Admission Criteria Forms DIABETES Clinical Indications for Admission to Inpatient Care (Place 'X' for any and all applicable criteria): Admission is indicated by presence of ALL (if I & II) or ANY ONE (if III or IV) of the following (1)(2)(3)(4): [X]I. Diabetes is uncontrolled as indicated by ANY ONE of the following: [ ]a) Diabetic ketoacidosis as indicated by ALL of the following (8): [ ]i) Hyperglycemia (eg, plasma glucose greater than 200 mg/ dL (11.1 mmol/L)) [ ]ii) Acidosis (eg, arterial pH less than 7.30, serum bicarbonate level less than 15 mEq/L (mmol/L)) [ ]iii) Moderate ketonuria or ketonemia [ ]b) Hyperglycemic hyperosmolar state as indicated by ALL of the following(9)(10): [ ]i) Neurologic dysfunction (eg, stupor, coma, hemiparesis , seizure)(13) [ ]ii) Plasma glucose greater than 600 mg/dL (33.3 mmol/L) [ ]iii) Serum osmolality greater than 320 mOsm/kg (mmol/kg) [X]c) Severe signs or symptoms secondary to hyperglycemia indicated by ANY ONE of the following: [ ]i) Altered mental status(10) [ ]ii) Significant hypovolemia or dehydration [ ]iii) Intractable nausea or vomiting [ ]iv) Unexplained fever or severe infection [X]v) Severe electrolyte abnormality (eg, hypokalemia, hyperkalemia, hypernatremia) [X]II. Management at other levels of care (Also use Diabetes: Observation Care as appropriate) is not feasible because of ANY ONE of the following: [X]a) Condition was not adequately corrected with treatment at other levels of care. [ ]b) Treatment at other levels of care is not appropriate because of condition severity (eg, hyperosmolar coma). [ ]III. Contraindications and/or Inappropriate clinical situations for Observational Care in patients with Diabetes, when ANY ONE of the following is required: [ ]a) Patient require specific diagnostic workup or therapeutic intervention 22 [ ]b) Patient with abnormal vital signs or altered mental status 23 [ ]IV. General contraindications and/or Inappropriate clinical situations for Observational Care in patients with Diabetes, when ANY ONE of the following is required: [ ]a) Prediction of prolongation of LOS based on ANY ONE of the following may be considered as a contraindication for observational care 2, 3, 4, 5, 6, 7, 8, 9, 10, 11 [ ]i) Age > 65 yrs. [ ]ii) Patient arriving by ambulance [ ]iii) Patient with high acuity [ ]iv) Patient requiring vital sign monitoring [ ]v) Patient on IV medication [ ]b) Systolic blood pressures 180mmHg 3,12 [ ]c) Patient with altered mental status including delirium and other alteration of consciousness, (3) [ ]d) Patient whose discharge disposition will be to a long-term home or rehabilitation home should not be managed in Emergency Department Observation Unit. CMS rule requires 3 days hospital stay before such placement.3,13 [ ]e) Patient with failure to thrive due to broad array of etiologies 3,16,17 [ ]f) Inability to ambulate 3,14 Extended stay beyond goal length of stay may be needed for(3)(20): [ ]a) Treatment of precipitating causes [ ]b) Development of hypoglycemia [ ]c) Complications of treatment [ ]d) Complications of decompensated diabetes (eg, acute gastric dilatation, persistent metabolic or neurologic derangement) [ ]e) Active Comorbidities [ ]f) Older patients( 65 years or older) The original [employer] content created by [employer] has been revised. The portions of the content which have been revised are identified through the use of italic text or in bold,and [facility] has neither reviewed nor approved the modified material. All other unmodified content is copyright [facility]. Please see references footnoted in the original [employer] [facility] edition 2015 Admission Criteria Met?: Yes KLEVER MATAMOROS Jun 01, 2017 00:00
[2017-06-01] MEDS: IV NORMAL SALINE 1,000ML 1,000 ML IV SCH ×2 (02:50→09:29)
[2017-06-01 04:10] LABS: HEMOGLOBIN A1C 10.5 % (4.8-5.6)
[2017-06-01 05:10] VITALS: BP 105/73
[2017-06-01 06:22] LABS: BASO # 0.1 x10^3/uL (0.0-0.2); BASO % 1 % (0-3); EOS # 0.1 x10^3/uL (0.0-0.7); EOS % 2 % (0-3); HEMATOCRIT 29.8 % (36.0-47.0); HEMOGLOBIN 9.9 g/dL (12.0-15.5); LYMPH # 2.7 x10^3/uL (1.0-4.8); LYMPH % 49 % (24-48); MEAN CORPUSCULAR HEMOGLOBIN 29 pg (25-35); MEAN CORPUSCULAR HGB CONC 33 g/dL (31-37); MEAN CORPUSCULAR VOLUME 86 fL (79-100); MONO # 0.5 x10^3/uL (0.0-1.1); MONO % 9 % (0-9); NEUT # 2.2 x10^3uL (1.8-7.7); NEUT % 39 % (31-73); PLATELET COUNT 295 x10^3/uL (140-400); RED BLOOD COUNT 3.46 x10^6/uL (3.50-5.40); RED CELL DISTRIBUTION WIDTH 15.9 % (11.5-14.5); WHITE BLOOD COUNT 5.6 x10^3/uL (4.0-11.0)
[2017-06-01 06:31] LABS: ALBUMIN 2.5 g/dL (3.4-5.0); ALBUMIN/GLOBULIN RATIO 0.9 (1.0-1.7); CALCIUM 7.5 mg/dL (8.5-10.1); CREATININE 0.7 mg/dL (0.6-1.0); GFR 101.1; MAGNESIUM 1.5 mg/dL (1.8-2.4); POTASSIUM 3.1 mmol/L (3.5-5.1); TOTAL BILIRUBIN 0.3 mg/dL (0.2-1.0); TOTAL PROTEIN 5.2 g/dL (6.4-8.2)
[2017-06-01] MEDS: POTASSIUM CHLORIDE 10MEQ 100 ML IV PRN ×3 (07:18→09:28)
[2017-06-01] MEDS ORDERED: DEXTROSE 50% 25 GM / 50ML DISP.SYRIN. IV PRN (08:15)
[2017-06-01] MEDS ORDERED: INSULIN ASPART 300 UNITS/3 ML INSULN.PEN SQ ONE (08:35)
[2017-06-01] MEDS: MAGNESIUM OXIDE 400 MG TABLET PO SCH ×2 (08:37→14:16)
[2017-06-01] MEDS ORDERED: ESCITALOPRAM 5 MG TABLET PO SCH (09:00)
--- NOTE | 2017-06-01 09:48 | PDOC1 ---
HISTORY & PHYSICAL HPI: PROBLEMS: Problems Medical Problems: (1) DKA (diabetic ketoacidoses) (2) hypomagnesemia (3) hypokalemia (4) dehydration (5) methamphetamine abuse (6) gastroparesis (7) adjustment disorder Status: Acute PAST MEDICAL HISTORY: PMH: Type 1 diabetes poorly controlled, gastroparesis, adjustment disorder, multiple episodes of DKA requiring hospitalization, chronic hypomagnesemia, chronic methamphetamine abuse, PSH: Port-A-Cath placement which had to be removed due to infection in 2016 SH: Lives at home with her mother. Parents are . Does not have a job. Used to smoke but states no longer smokes. Has continual problem with methamphetamine. PFMH: Negative ALLERGIES: noted Allergies Coded Allergies Type Severity Reaction Last Updated Verified acetaminophen Allergy Intermediate HIVES 05/20/17 Yes adhesive tape Allergy Intermediate 05/20/17 Yes I S O L A T I O N *CONTACT* Allergy Unknown 05/20/17 Yes MEDS: MEDICATIONS: Current Medications Medications (Trade) Dose Ordered Sig/Chevy Start Time Stop Time Status Last Admin Dose Admin Dextrose 12.5 gm PRN Q15MIN PRN 06/01/17 08:15 Escitalopram Oxalate (Lexapro) 5 mg DAILY 06/01/17 09:00 06/01/17 08:37 5 MG Famotidine (Pepcid) 20 mg 1X ONCE 05/31/17 10:00 05/31/17 10:01 DC 05/31/17 10:01 20 MG Haloperidol Lactate (Haldol) 2.5 mg 1X ONCE 05/31/17 10:00 05/31/17 10:01 DC 05/31/17 10:02 2.5 MG Insulin Aspart (NovoLOG) 0-9 UNITS QIDACHS 06/01/17 11:30 Insulin Detemir (Levemir) 15 units BID 06/01/17 21:00 Insulin Human Regular (NovoLIN R) 10 unit 1X ONCE 05/31/17 10:45 05/31/17 10:49 DC 05/31/17 10:27 10 UNIT Insulin Human Regular 150 unit/ Sodium Chloride 151.5 ml @ 0 mls/hr CONT PRN PRN 05/31/17 12:00 05/31/17 12:32 5.9 MLS/HR Ketorolac Tromethamine (Toradol) 30 mg PRN Q6HRS PRN 05/31/17 11:30 06/05/17 11:29 05/31/17 12:27 30 MG Magnesium Oxide (Magnesium Oxide) 400 mg TID 06/01/17 09:00 06/01/17 08:37 400 MG Magnesium Sulfate 50 ml @ 25 mls/hr PRN Q2HR PRN 05/31/17 11:30 06/01/17 07:19 25 MLS/HR Metoclopramide HCl (Reglan) 10 mg QIDACHS 06/01/17 11:30 Ondansetron HCl (Zofran Odt) 4 mg Q8HRS 06/01/17 14:00 Ondansetron HCl (Zofran) 4 mg PRN Q4HRS PRN 05/31/17 10:30 06/01/17 10:29 05/31/17 12:26 4 MG Pantoprazole Sodium (Protonix) 40 mg DAILYAC 06/02/17 07:30 Potassium Chloride 100 ml @ 100 mls/hr PRN Q1HR PRN 05/31/17 11:30 Sodium Chloride 1,000 ml @ 0 mls/hr Q0M 05/31/17 11:20 06/01/17 09:29 150 MLS/HR VITALS: Vital Signs Date Time Temp Pulse Resp B/P (MAP) Pulse Ox O2 Delivery O2 Flow Rate FiO2 06/01/17 07:59 Room Air 06/01/17 05:10 98.1 92 18 105/73 (84) 97 LABS: Laboratory Tests Test 05/31/17 09:20 05/31/17 09:34 05/31/17 09:43 05/31/17 11:04 Glucose (Fingerstick) 507 mg/dL (70-99) 497 mg/dL (70-99) Blood Gas pH 7.22 (7.35-7.45) Blood Gas PCO2 22 mmHg (35-45) Blood Gas PO2 46 mmHg (80-100) Blood Gas HCO3 9 mmol/L (22-26) Arterial Bld O2 Saturation (Calc) 74 % (92-99) FiO2 21 % White Blood Count 7.8 x10^3/uL (4.0-11.0) Red Blood Count 4.79 x10^6/uL (3.50-5.40) Hemoglobin 13.7 g/dL (12.0-15.5) Hematocrit 43.1 % (36.0-47.0) Mean Corpuscular Volume 90 fL (79-100) Mean Corpuscular Hemoglobin 29 pg (25-35) Mean Corpuscular Hemoglobin Concent 32 g/dL (31-37) Red Cell Distribution Width 16.3 % (11.5-14.5) Platelet Count 455 x10^3/uL (140-400) Neutrophils (%) (Auto) 67 % (31-73) Lymphocytes (%) (Auto) 27 % (24-48) Monocytes (%) (Auto) 4 % (0-9) Eosinophils (%) (Auto) 1 % (0-3) Basophils (%) (Auto) 1 % (0-3) Neutrophils # (Auto) 5.2 x10^3uL (1.8-7.7) Lymphocytes # (Auto) 2.1 x10^3/uL (1.0-4.8) Monocytes # (Auto) 0.3 x10^3/uL (0.0-1.1) Eosinophils # (Auto) 0.1 x10^3/uL (0.0-0.7) Basophils # (Auto) 0.1 x10^3/uL (0.0-0.2) Sodium Level 129 mmol/L (136-145) Potassium Level 5.1 mmol/L (3.5-5.1) Chloride Level 88 mmol/L (98-107) Carbon Dioxide Level 9 mmol/L (21-32) Anion Gap 32 (6-14) Blood Urea Nitrogen 25 mg/dL (7-20) Creatinine 1.1 mg/dL (0.6-1.0) Estimated GFR (Cockcroft-Gault) 60.0 BUN/Creatinine Ratio 23 (6-20) Glucose Level 541 mg/dL (70-99) Calcium Level 9.5 mg/dL (8.5-10.1) Magnesium Level 1.9 mg/dL (1.8-2.4) Total Bilirubin 0.8 mg/dL (0.2-1.0) Aspartate Amino Transf (AST/SGOT) 15 U/L (15-37) Alanine Aminotransferase (ALT/SGPT) 24 U/L (14-59) Alkaline Phosphatase 109 U/L (46-116) Total Protein 8.4 g/dL (6.4-8.2) Albumin 4.3 g/dL (3.4-5.0) Albumin/Globulin Ratio 1.0 (1.0-1.7) Acetone Level Mod pos (NEG) Test 05/31/17 12:03 05/31/17 13:11 05/31/17 14:33 05/31/17 15:00 Glucose (Fingerstick) 354 mg/dL (70-99) 229 mg/dL (70-99) 111 mg/dL (70-99) Sodium Level 138 mmol/L (136-145) Potassium Level 4.2 mmol/L (3.5-5.1) Chloride Level 107 mmol/L (98-107) Carbon Dioxide Level 14 mmol/L (21-32) Anion Gap 17 (6-14) Blood Urea Nitrogen 24 mg/dL (7-20) Creatinine 1.0 mg/dL (0.6-1.0) Estimated GFR (Cockcroft-Gault) 67.0 Glucose Level 85 mg/dL (70-99) Hemoglobin A1c 10.5 % (4.8-5.6) Calcium Level 7.7 mg/dL (8.5-10.1) Test 05/31/17 15:26 05/31/17 15:56 05/31/17 16:25 05/31/17 16:59 Glucose (Fingerstick) 60 mg/dL (70-99) 97 mg/dL (70-99) 52 mg/dL (70-99) Urine Collection Type Unknown Urine Color Yellow Urine Clarity Hazy Urine pH 5.0 Urine Specific [place] 1.020 Urine Protein Neg (NEG-TRACE) Urine Glucose (UA) 500 mg/dL (NEG) Urine Ketones (Stick) >=160 mg/dL (NEG) Urine Blood Neg (NEG) Urine Nitrite Neg (NEG) Urine Bilirubin Neg (NEG) Urine Urobilinogen Dipstick 0.2 mg/dL (0.2 mg/dL) Urine Leukocyte Esterase Neg (NEG) Urine RBC Occ /HPF (0-2) Urine WBC 1-4 /HPF (0-4) Urine Squamous Epithelial Cells Mod /LPF Urine Bacteria Few /HPF (0-FEW) Urine Hyaline Casts Few /HPF Urine Mucus Mod /LPF Urine Opiates Screen Neg (NEG) Urine Methadone Screen Neg (NEG) Urine Barbiturates Neg (NEG) Urine Phencyclidine Screen Neg (NEG) Urine Amphetamine/Methamphetamine Pos (NEG) Urine Benzodiazepines Screen Neg (NEG) Urine Cocaine Screen Neg (NEG) Urine Cannabinoids Screen Neg (NEG) Urine Ethyl Alcohol Neg (NEG) Test 05/31/17 17:18 05/31/17 18:52 05/31/17 19:56 05/31/17 21:31 Glucose (Fingerstick) 143 mg/dL (70-99) 202 mg/dL (70-99) 155 mg/dL (70-99) 116 mg/dL (70-99) Test 05/31/17 22:44 05/31/17 23:45 06/01/17 00:49 06/01/17 01:49 Glucose (Fingerstick) 137 mg/dL (70-99) 124 mg/dL (70-99) 110 mg/dL (70-99) 113 mg/dL (70-99) Test 06/01/17 03:45 06/01/17 04:49 06/01/17 05:54 06/01/17 06:54 Glucose (Fingerstick) 76 mg/dL (70-99) 129 mg/dL (70-99) 137 mg/dL (70-99) 156 mg/dL (70-99) White Blood Count 5.6 x10^3/uL (4.0-11.0) Red Blood Count 3.46 x10^6/uL (3.50-5.40) Hemoglobin 9.9 g/dL (12.0-15.5) Hematocrit 29.8 % (36.0-47.0) Mean Corpuscular Volume 86 fL (79-100) Mean Corpuscular Hemoglobin 29 pg (25-35) Mean Corpuscular Hemoglobin Concent 33 g/dL (31-37) Red Cell Distribution Width 15.9 % (11.5-14.5) Platelet Count 295 x10^3/uL (140-400) Neutrophils (%) (Auto) 39 % (31-73) Lymphocytes (%) (Auto) 49 % (24-48) Monocytes (%) (Auto) 9 % (0-9) Eosinophils (%) (Auto) 2 % (0-3) Basophils (%) (Auto) 1 % (0-3) Neutrophils # (Auto) 2.2 x10^3uL (1.8-7.7) Lymphocytes # (Auto) 2.7 x10^3/uL (1.0-4.8) Monocytes # (Auto) 0.5 x10^3/uL (0.0-1.1) Eosinophils # (Auto) 0.1 x10^3/uL (0.0-0.7) Basophils # (Auto) 0.1 x10^3/uL (0.0-0.2) Sodium Level 139 mmol/L (136-145) Potassium Level 3.1 mmol/L (3.5-5.1) Chloride Level 109 mmol/L (98-107) Carbon Dioxide Level 22 mmol/L (21-32) Anion Gap 8 (6-14) Blood Urea Nitrogen 17 mg/dL (7-20) Creatinine 0.7 mg/dL (0.6-1.0) Estimated GFR (Cockcroft-Gault) 101.1 BUN/Creatinine Ratio 24 (6-20) Glucose Level 140 mg/dL (70-99) Calcium Level 7.5 mg/dL (8.5-10.1) Magnesium Level 1.5 mg/dL (1.8-2.4) Total Bilirubin 0.3 mg/dL (0.2-1.0) Aspartate Amino Transf (AST/SGOT) 10 U/L (15-37) Alanine Aminotransferase (ALT/SGPT) 14 U/L (14-59) Alkaline Phosphatase 68 U/L (46-116) Total Protein 5.2 g/dL (6.4-8.2) Albumin 2.5 g/dL (3.4-5.0) Albumin/Globulin Ratio 0.9 (1.0-1.7) Test 06/01/17 07:55 06/01/17 09:01 Glucose (Fingerstick) 124 mg/dL (70-99) 183 mg/dL (70-99) ROS: Negative for fever, sore throat or chills. For chest pain or shortness of breath Positive for stomach pain and hunger Aches and pains, myalgias PHYSICAL EXAM: 27-year-old in no acute distress. Examined after overnight hydration Sitting up in bed eating breakfast. Finished entire breakfast. HEENT: Eyes clear, tongue moist, throat clear, head normocephalic Neck was supple without adenopathy Lungs are clear to auscultation Cardiovascular mildly tachycardic, regular rhythm and rate, the abdomen was soft bowel sounds are positive she is mildly tender in the midepigastric area, no masses palpated extremities without edema VTE PROPHYLAXIS: VTE Pharmacological Prophylaxi: No ASSESSMENT/PLAN ASSESSMENT: #1 DKA #2 hypokalemia #3 hypomagnesemia #4 dehydration #5 gastroparesis #6 continued methamphetamine abuse #7 adjustment disorder PLAN: Insulin drip protocol. Treat aches and pains with Toradol and not narcotics. Discussed rehabilitation center. This is a vicious cycle due to her methamphetamine abuse as she does not eat or drink appropriately while under the influence. BARRY MORELAND DO Jun 01, 2017 09:48
[2017-06-01 11:07] LABS: CALCIUM 7.5 mg/dL (8.5-10.1); CREATININE 0.7 mg/dL (0.6-1.0); GFR 101.1; POTASSIUM 3.7 mmol/L (3.5-5.1)
[2017-06-01 11:13] VITALS: BP 99/66
[2017-06-01] MEDS: INSULIN ASPART 300 UNITS/3 ML INSULN.PEN SQ SCH ×4 (11:30→16:52)
[2017-06-01] MEDS ORDERED: INSULIN ASPART 300 UNITS/3 ML INSULN.PEN SQ SCH (11:30)
[2017-06-01] MEDS: METOCLOPRAMIDE 10 MG TABLET PO SCH ×2 (12:08→16:48)
[2017-06-01] MEDS ORDERED: ONDANSETRON ODT 4 MG TAB.RAPDIS PO SCH (14:00)
[2017-06-01 16:37] VITALS: BP 100/67
[2017-06-01] MEDS ORDERED: INSULIN DETEMIR 300 UNITS/3 ML INSULN.PEN. SQ SCH (21:00)
[2017-06-02] MEDS ORDERED: PANTOPRAZOLE 40 MG TABLET. PO SCH (07:30)
--- NOTE | 2017-06-02 10:12 | PDOC3 ---
Discharge Summary Visit Information Date of Admission: May 31, 2017 Date of Discharge: Jun 01, 2017 Final Diagnosis Problems Medical Problems: (1) DKA (diabetic ketoacidoses) Status: Acute (2) hypomagnesemia (3) hypokalemia (4) dehydration (5) methamphetamine abuse (6) gastroparesis (7) adjustment disorder Problems: Brief Hospital Course Allergies Allergies Coded Allergies Type Severity Reaction Last Updated Verified acetaminophen Allergy Intermediate HIVES 05/20/17 Yes adhesive tape Allergy Intermediate 05/20/17 Yes I S O L A T I O N *CONTACT* Allergy Unknown 05/20/17 Yes Vital Signs Vital Signs Date Time Temp Pulse Resp B/P (MAP) Pulse Ox O2 Delivery O2 Flow Rate FiO2 06/01/17 16:37 98.0 89 100/67 (78) 98 Room Air 06/01/17 11:13 20 Lab Results Laboratory Tests Test 05/31/17 11:04 05/31/17 12:03 05/31/17 13:11 05/31/17 14:33 Glucose (Fingerstick) 497 mg/dL (70-99) 354 mg/dL (70-99) 229 mg/dL (70-99) 111 mg/dL (70-99) Test 05/31/17 15:00 05/31/17 15:26 05/31/17 15:56 05/31/17 16:25 Sodium Level 138 mmol/L (136-145) Potassium Level 4.2 mmol/L (3.5-5.1) Chloride Level 107 mmol/L (98-107) Carbon Dioxide Level 14 mmol/L (21-32) Anion Gap 17 (6-14) Blood Urea Nitrogen 24 mg/dL (7-20) Creatinine 1.0 mg/dL (0.6-1.0) Estimated GFR (Cockcroft-Gault) 67.0 Glucose Level 85 mg/dL (70-99) Hemoglobin A1c 10.5 % (4.8-5.6) Serum Osmolality 294 mOsm/Kg (279-304) Calcium Level 7.7 mg/dL (8.5-10.1) Glucose (Fingerstick) 60 mg/dL (70-99) 97 mg/dL (70-99) Urine Collection Type Unknown Urine Color Yellow Urine Clarity Hazy Urine pH 5.0 Urine Specific [place] 1.020 Urine Protein Neg (NEG-TRACE) Urine Glucose (UA) 500 mg/dL (NEG) Urine Ketones (Stick) >=160 mg/dL (NEG) Urine Blood Neg (NEG) Urine Nitrite Neg (NEG) Urine Bilirubin Neg (NEG) Urine Urobilinogen Dipstick 0.2 mg/dL (0.2 mg/dL) Urine Leukocyte Esterase Neg (NEG) Urine RBC Occ /HPF (0-2) Urine WBC 1-4 /HPF (0-4) Urine Squamous Epithelial Cells Mod /LPF Urine Bacteria Few /HPF (0-FEW) Urine Hyaline Casts Few /HPF Urine Mucus Mod /LPF Urine Opiates Screen Neg (NEG) Urine Methadone Screen Neg (NEG) Urine Barbiturates Neg (NEG) Urine Phencyclidine Screen Neg (NEG) Urine Amphetamine/Methamphetamine Pos (NEG) Urine Benzodiazepines Screen Neg (NEG) Urine Cocaine Screen Neg (NEG) Urine Cannabinoids Screen Neg (NEG) Urine Ethyl Alcohol Neg (NEG) Test 05/31/17 16:59 05/31/17 17:18 05/31/17 18:52 05/31/17 19:56 Glucose (Fingerstick) 52 mg/dL (70-99) 143 mg/dL (70-99) 202 mg/dL (70-99) 155 mg/dL (70-99) Test 05/31/17 21:31 05/31/17 22:44 05/31/17 23:45 06/01/17 00:49 Glucose (Fingerstick) 116 mg/dL (70-99) 137 mg/dL (70-99) 124 mg/dL (70-99) 110 mg/dL (70-99) Test 06/01/17 01:49 06/01/17 03:45 06/01/17 04:49 06/01/17 05:54 Glucose (Fingerstick) 113 mg/dL (70-99) 76 mg/dL (70-99) 129 mg/dL (70-99) 137 mg/dL (70-99) White Blood Count 5.6 x10^3/uL (4.0-11.0) Red Blood Count 3.46 x10^6/uL (3.50-5.40) Hemoglobin 9.9 g/dL (12.0-15.5) Hematocrit 29.8 % (36.0-47.0) Mean Corpuscular Volume 86 fL (79-100) Mean Corpuscular Hemoglobin 29 pg (25-35) Mean Corpuscular Hemoglobin Concent 33 g/dL (31-37) Red Cell Distribution Width 15.9 % (11.5-14.5) Platelet Count 295 x10^3/uL (140-400) Neutrophils (%) (Auto) 39 % (31-73) Lymphocytes (%) (Auto) 49 % (24-48) Monocytes (%) (Auto) 9 % (0-9) Eosinophils (%) (Auto) 2 % (0-3) Basophils (%) (Auto) 1 % (0-3) Neutrophils # (Auto) 2.2 x10^3uL (1.8-7.7) Lymphocytes # (Auto) 2.7 x10^3/uL (1.0-4.8) Monocytes # (Auto) 0.5 x10^3/uL (0.0-1.1) Eosinophils # (Auto) 0.1 x10^3/uL (0.0-0.7) Basophils # (Auto) 0.1 x10^3/uL (0.0-0.2) Sodium Level 139 mmol/L (136-145) Potassium Level 3.1 mmol/L (3.5-5.1) Chloride Level 109 mmol/L (98-107) Carbon Dioxide Level 22 mmol/L (21-32) Anion Gap 8 (6-14) Blood Urea Nitrogen 17 mg/dL (7-20) Creatinine 0.7 mg/dL (0.6-1.0) Estimated GFR (Cockcroft-Gault) 101.1 BUN/Creatinine Ratio 24 (6-20) Glucose Level 140 mg/dL (70-99) Calcium Level 7.5 mg/dL (8.5-10.1) Magnesium Level 1.5 mg/dL (1.8-2.4) Total Bilirubin 0.3 mg/dL (0.2-1.0) Aspartate Amino Transf (AST/SGOT) 10 U/L (15-37) Alanine Aminotransferase (ALT/SGPT) 14 U/L (14-59) Alkaline Phosphatase 68 U/L (46-116) Total Protein 5.2 g/dL (6.4-8.2) Albumin 2.5 g/dL (3.4-5.0) Albumin/Globulin Ratio 0.9 (1.0-1.7) Test 06/01/17 06:54 06/01/17 07:55 06/01/17 09:01 06/01/17 10:50 Glucose (Fingerstick) 156 mg/dL (70-99) 124 mg/dL (70-99) 183 mg/dL (70-99) Sodium Level 142 mmol/L (136-145) Potassium Level 3.7 mmol/L (3.5-5.1) Chloride Level 111 mmol/L (98-107) Carbon Dioxide Level 23 mmol/L (21-32) Anion Gap 8 (6-14) Blood Urea Nitrogen 12 mg/dL (7-20) Creatinine 0.7 mg/dL (0.6-1.0) Estimated GFR (Cockcroft-Gault) 101.1 Glucose Level 136 mg/dL (70-99) Calcium Level 7.5 mg/dL (8.5-10.1) Magnesium Level 2.0 mg/dL (1.8-2.4) Test 06/01/17 11:02 06/01/17 14:18 06/01/17 16:43 Glucose (Fingerstick) 119 mg/dL (70-99) 129 mg/dL (70-99) 147 mg/dL (70-99) Brief Hospital Course Ms. Leary is a 27 old female who presented with DKA. She has been hospitalized dozens of times with DKA and usually it is severe when she is using methamphetamine. Her drug screen was positive for methamphetamine. She has never been to rehabilitation. While hospitalized she was treated via the DKA protocol, received IV fluids, she recovered nicely after getting her blood sugar under control. On the discharge is strongly encouraged her to pursue rehabilitation rehabilitation. Discharge Information Condition at Discharge: Improved, Stable Disposition/Orders: D/C to Home Dischare Medications Current Medications Sodium Chloride 1,000 ml @ 1,000 mls/hr 1X ONCE IV Last administered on 09:52; Start 05/31/17 at 09:30; Stop 05/31/17 at 10:29; Status DC Famotidine (Pepcid) 20 mg 1X ONCE IVP Last administered on 05/31/17 10:01; Start 05/31/17 at 10:00; Stop 05/31/17 at 10:01; Status DC Haloperidol Lactate (Haldol) 2.5 mg 1X ONCE IVP Last administered on 10:02; Start 05/31/17 at 10:00; Stop 05/31/17 at 10:01; Status DC Sodium Chloride 1,000 ml @ 1,000 mls/hr 1X ONCE IV Last administered on 11:06; Start 05/31/17 at 10:30; Stop 05/31/17 at 11:29; Status DC Insulin Human Regular (NovoLIN R) 10 unit 1X ONCE SQ Last administered on 05/31 10:27; Start 05/31/17 at 10:45; Stop 05/31/17 at 10:49; Status DC Ondansetron HCl (Zofran) 4 mg PRN Q4HRS PRN IV NAUSEA/VOMITING Last administered on 05/31/17 12:26; Start 05/31/17 at 10:30; Stop 06/01/17 at 10:29 ; Status DC Sodium Chloride 1,000 ml @ 200 mls/hr Q5H IV ; Start 05/31/17 at 10:45; Stop at 11:41; Status DC Sodium Chloride 1,000 ml @ 0 mls/hr Q0M IV Last administered on 06/01/17 09: 29; Start 05/31/17 at 11:20; Stop 06/01/17 at 17:39; Status DC Insulin Human Regular 150 unit/ Sodium Chloride 151.5 ml @ 0 mls/hr CONT PRN PRN IV PER PROTOCOL Last administered on 05/31/17 12:32; Start 05/31/17 at 12: 00; Stop 06/01/17 at 17:39; Status DC Potassium Chloride 100 ml @ 100 mls/hr PRN Q1HR PRN IV SEE COMMENTS Last administered on 06/01/17 09:28; Start 05/31/17 at 11:30; Stop 06/01/17 at 17:39 ; Status DC Potassium Chloride 100 ml @ 100 mls/hr PRN Q1HR PRN IV SEE COMMENTS; Start 11/05 at 11:30; Stop 06/01/17 at 17:39; Status DC Magnesium Sulfate 50 ml @ 25 mls/hr PRN Q2HR PRN IV MG LEVEL < 1.8 Last administered on 06/01/17 07:19; Start 05/31/17 at 11:30; Stop 06/01/17 at 17:39 ; Status DC Ketorolac Tromethamine (Toradol) 30 mg PRN Q6HRS PRN IV PAIN Last administered on 05/31/17 12:27; Start 05/31/17 at 11:30; Stop 06/01/17 at 17:39; Status DC Dextrose 25 gm PRN Q1HR PRN IV low glucose Last administered on 05/31/17 17:06 ; Start 05/31/17 at 16:00; Stop 06/01/17 at 08:25; Status DC Escitalopram Oxalate (Lexapro) 5 mg DAILY PO Last administered on 06/01/17 08: 37; Start 06/01/17 at 09:00; Stop 06/01/17 at 17:39; Status DC Magnesium Oxide (Magnesium Oxide) 400 mg TID PO Last administered on 06/01/17 14:16; Start 06/01/17 at 09:00; Stop 06/01/17 at 17:39; Status DC Metoclopramide HCl (Reglan) 10 mg QIDACHS PO Last administered on 06/01/17 16: 48; Start 06/01/17 at 11:30; Stop 06/01/17 at 17:39; Status DC Ondansetron HCl (Zofran Odt) 4 mg Q8HRS PO ; Start 06/01/17 at 14:00; Stop 06/01 at 17:39; Status DC Pantoprazole Sodium (Protonix) 40 mg DAILYAC PO ; Start 06/02/17 at 07:30; Stop 06/02/17 at 07:30; Status DC Insulin Detemir (Levemir) 15 units BID SQ ; Start 06/01/17 at 21:00; Stop at 21:00; Status DC Insulin Aspart (NovoLOG) 0-9 UNITS QIDACHS SQ ; Start 06/01/17 at 11:30; Stop at 11:30; Status DC Dextrose 12.5 gm PRN Q15MIN PRN IV SEE COMMENTS; Start 06/01/17 at 08:15; Stop 06/01/17 at 17:39; Status DC Insulin Aspart (NovoLOG) 12 units QIDACHS SQ Last administered on 06/01/17 16: 52; Start 06/01/17 at 11:30; Stop 06/01/17 at 17:39; Status DC Insulin Aspart (NovoLOG) 12 units 1X ONCE SQ Last administered on 06/01/17 08 :46; Start 06/01/17 at 08:35; Stop 06/01/17 at 08:36; Status DC Insulin Aspart (NovoLOG) 0-9 UNITS QIDACHS SQ ; Start 06/01/17 at 11:30; Stop at 17:39; Status DC Active Scripts Active Zofran Odt (Ondansetron) 4 Mg Tab.rapdis 1 Tab SL Q8HRS Pantoprazole Sodium 40 Mg Tablet.dr 40 Mg PO DAILYAC Escitalopram Oxalate 5 Mg Tablet 5 Mg PO DAILY Magnesium Oxide 400 Mg Tablet 1 Tab PO TID Metoclopramide Hcl 5 Mg Tablet 10 Mg PO QIDACHS Novolog Flexpen (Insulin Aspart) 100 Unit/1 Ml Insuln.pen 0-9 Unit SQ ACHS FOLLOW SUPPLEMENTAL SCALE GIVEN TO YOU Reported Levemir (Insulin Detemir) 100 Unit/1 Ml Vial 15 Unit SQ BID resume tonight at bedtime Patient Instructions Patient Instuctions Typewritten instructions were done on the discharge on [facility]. BARRY MORELAND DO Jun 02, 2017 10:12
== END 2017-06-01 17:39 | disposition home or self-care (01) | DRG 639 ==
LOC: ER 09:04 → 1 SOUTH 10:25 → ER 10:25
PROVIDERS: ADMIT Family Medicine; ATTEND Family Medicine
DX: E10.10 Type 1 diabetes mellitus with ketoacidosis without coma (principal); E10.43 Type 1 diabetes mellitus with diabetic autonomic (poly)neuropathy; E83.42 Hypomagnesemia; E86.0 Dehydration; E87.6 Hypokalemia; F15.10 Other stimulant abuse, uncomplicated; F43.20 Adjustment disorder, unspecified; K31.84 Gastroparesis; F32.9 Major depressive disorder, single episode, unspecified; K21.9 Gastro-esophageal reflux disease without esophagitis; F17.210 Nicotine dependence, cigarettes, uncomplicated; F12.90 Cannabis use, unspecified, uncomplicated; F11.90 Opioid use, unspecified, uncomplicated; Z88.8 Allergy status to other drugs, medicaments and biological substances; Z91.041 Radiographic dye allergy status
CPT/HCPCS: 36415; 80048; 80053; 81001; 82010; 82803; 82947; 83036; 83735; 83930; 85027; 87086; 96374; 96375; G0481; J1630; J1815; J1885; J2405; J3475; J3480; J8597; S0028; 99285-25; J7030

== ENCOUNTER 2017-06-05 19:12 | Emergency (ER) | payer BC ==
[~2017-06-05] VITALS: Ht 170.2 cm; Wt 61.4 kg
[2017-06-05] MEDS ORDERED: IV NORMAL SALINE 1,000ML 1,000 ML IV SCH (19:59)
[2017-06-05] MEDS ORDERED: IV NORMAL SALINE 1,000ML 1,000 ML ONE (20:00)
[2017-06-05] MEDS ORDERED: ONDANSETRON PF 4 MG/2 ML VIAL. ONE (20:00)
[2017-06-05] MEDS ORDERED: ONDANSETRON PF 4 MG/2 ML VIAL. IV ONE (20:00)
[2017-06-05 20:23] LABS: BASO # 0.2 x10^3/uL (0.0-0.2); BASO % 3 % (0-3); EOS # 0.1 x10^3/uL (0.0-0.7); EOS % 2 % (0-3); HEMATOCRIT 40.7 % (36.0-47.0); HEMOGLOBIN 13.6 g/dL (12.0-15.5); LYMPH # 2.5 x10^3/uL (1.0-4.8); LYMPH % 34 % (24-48); MEAN CORPUSCULAR HEMOGLOBIN 29 pg (25-35); MEAN CORPUSCULAR HGB CONC 33 g/dL (31-37); MEAN CORPUSCULAR VOLUME 87 fL (79-100); MONO # 0.6 x10^3/uL (0.0-1.1); MONO % 8 % (0-9); NEUT # 3.8 x10^3uL (1.8-7.7); NEUT % 53 % (31-73); PLATELET COUNT 327 x10^3/uL (140-400); RED BLOOD COUNT 4.69 x10^6/uL (3.50-5.40); RED CELL DISTRIBUTION WIDTH 16.2 % (11.5-14.5); WHITE BLOOD COUNT 7.2 x10^3/uL (4.0-11.0)
[2017-06-05 20:35] LABS: ALBUMIN 4.4 g/dL (3.4-5.0); ALBUMIN/GLOBULIN RATIO 1.1 (1.0-1.7); CALCIUM 9.4 mg/dL (8.5-10.1); CREATININE 0.7 mg/dL (0.6-1.0); GFR 101.1; MAGNESIUM 1.9 mg/dL (1.8-2.4); TOTAL BILIRUBIN 0.7 mg/dL (0.2-1.0); TOTAL PROTEIN 8.5 g/dL (6.4-8.2)
[2017-06-05 20:36] LABS: POTASSIUM 4.6 mmol/L (3.5-5.1)
[2017-06-05 20:41] LABS: BILIRUBIN,URINE NEG (NEG); CLARITY,URINE HAZY; COLOR,URINE YELLOW; GLUCOSE,URINE 500 mg/dL (NEG); NITRITE,URINE NEG (NEG); UROBILINOGEN,URINE 0.2 mg/dL (0.2 mg/dL)
[2017-06-05 20:44] LABS: BACTERIA,URINE 0 /HPF (0-FEW); SQUAMOUS EPITHELIAL CELL,UR MANY /LPF
[2017-06-05] MEDS ORDERED: fentaNYL PF 100 MCG/2 ML VIAL IV ONE (20:45)
[2017-06-05] MEDS ORDERED: METOCLOPRAMIDE HCL 10 MG/2 ML VIAL. IV ONE (21:00)
[2017-06-05] MEDS ORDERED: diphenhydrAMINE 50 MG/ML VIAL IVP ONE (21:00)
[2017-06-05 22:00] VITALS: BP 116/70
[2017-06-05] MEDS ORDERED: INSULIN DETEMIR 300 UNITS/3 ML INSULN.PEN. SQ ONE ×2 (22:26→23:00)
[2017-06-05] MEDS ORDERED: IV NORMAL SALINE 1,000ML 1,000 ML IV ONE (22:30)
[2017-06-05] MEDS ORDERED: INSULIN ASPART 300 UNITS/3 ML INSULN.PEN SQ ONE (22:45)
--- NOTE | 2017-06-05 23:00 | PHYS DOC ---
Past History Past Medical History: Depression, Diabetes, GERD Additional Past Medical Histor: pt reports several admissions for "high blood sugar" Past Surgical History: Other Smoking: Less than 1pk/day Alcohol Use: None Drug Use: Marijuana, Methamphetamine, Opiates Adult General Chief Complaint Chief Complaint: BLOOD SUGAR PROBLEM HPI HPI Patient is a 27-year-old female with type 1 diabetes who presents with 24 hours of nausea and vomiting. She can't keep anything down. She was hospitalized May 31 or for vomiting and mild DKA. She has been taking her insulin as prescribed. Patient states she takes Levemir 15 units twice a day and a sliding scale of NovoLog. She hasn't been able to eat today due to nausea and vomiting. Review of Systems Review of Systems Constitutional: Denies fever or chills [] HENT: Denies nasal congestion or sore throat [] Respiratory: Denies cough or shortness of breath [] Cardiovascular: Denies chest pain GI: As in history of present illness : Denies dysuria or hematuria [] Musculoskeletal: Denies back pain or joint pain [] Neurologic: Denies headache, focal weakness or sensory changes [] Current Medications Current Medications Current Medications Medications (Trade) Dose Ordered Sig/Chevy Start Time Stop Time Status Last Admin Dose Admin Diphenhydramine HCl (Benadryl) 25 mg 1X ONCE 06/05/17 21:00 06/05/17 21:01 DC 06/05/17 20:56 25 MG Fentanyl Citrate (Fentanyl 2ml Vial) 50 mcg 1X ONCE 06/05/17 20:45 06/05/17 20:52 DC 06/05/17 20:45 50 MCG Insulin Aspart (NovoLOG) 8 units 1X ONCE 06/05/17 22:45 06/05/17 22:46 DC 06/05/17 22:45 8 UNITS Insulin Detemir (Levemir) 300 units STK-MED ONCE 06/05/17 22:26 06/05/17 22:27 DC Metoclopramide HCl (Reglan) 10 mg 1X ONCE 06/05/17 21:00 06/05/17 21:01 DC 06/05/17 20:56 10 MG Ondansetron HCl (Zofran) 4 mg 1X ONCE 06/05/17 20:00 06/05/17 20:16 DC 06/05/17 20:00 4 MG Sodium Chloride 1,000 ml @ 1,000 mls/hr 1X ONCE 06/05/17 22:30 06/05/17 23:29 06/05/17 22:30 1,000 MLS/HR Allergies Allergies Allergies Coded Allergies Type Severity Reaction Last Updated Verified acetaminophen Allergy Intermediate HIVES 05/20/17 Yes adhesive tape Allergy Intermediate 05/20/17 Yes I S O L A T I O N *CONTACT* Allergy Unknown 05/20/17 Yes Physical Exam Physical Exam Constitutional: Thin female, alert, having dry heaves HENT: Normocephalic, atraumatic, bilateral external ears normal, nose normal. [] Eyes: conjunctiva normal, no discharge. [] Neck: Normal range of motion, no stridor. [] Cardiovascular:Heart rate regular rhythm, no murmur [] Lungs & Thorax: Bilateral breath sounds clear to auscultation [] Abdomen: Bowel sounds normal, soft, nondistended,, no masses, no pulsatile masses. Mild diffuse tenderness, nonlocalized. Skin: Warm, dry, no erythema, no rash. [] Extremities: No tenderness, no cyanosis, no clubbing, ROM intact, no edema. [] Neurologic: Alert and oriented X 3, normal motor function, normal sensory function, no focal deficits noted. [] Current Patient Data Vital Signs Vital Signs Date Time Temp Pulse Resp B/P (MAP) Pulse Ox O2 Delivery O2 Flow Rate FiO2 06/05/17 20:45 18 99 Room Air 06/05/17 19:15 98.0 Lab Results Laboratory Tests Test 06/05/17 19:55 06/05/17 20:12 06/05/17 22:15 White Blood Count 7.2 x10^3/uL (4.0-11.0) Red Blood Count 4.69 x10^6/uL (3.50-5.40) Hemoglobin 13.6 g/dL (12.0-15.5) # Hematocrit 40.7 % (36.0-47.0) # Mean Corpuscular Volume 87 fL (79-100) Mean Corpuscular Hemoglobin 29 pg (25-35) Mean Corpuscular Hemoglobin Concent 33 g/dL (31-37) Red Cell Distribution Width 16.2 % (11.5-14.5) H Platelet Count 327 x10^3/uL (140-400) Neutrophils (%) (Auto) 53 % (31-73) Lymphocytes (%) (Auto) 34 % (24-48) Monocytes (%) (Auto) 8 % (0-9) Eosinophils (%) (Auto) 2 % (0-3) Basophils (%) (Auto) 3 % (0-3) Neutrophils # (Auto) 3.8 x10^3uL (1.8-7.7) Lymphocytes # (Auto) 2.5 x10^3/uL (1.0-4.8) Monocytes # (Auto) 0.6 x10^3/uL (0.0-1.1) Eosinophils # (Auto) 0.1 x10^3/uL (0.0-0.7) Basophils # (Auto) 0.2 x10^3/uL (0.0-0.2) Urine Collection Type Unknown Urine Color Yellow Urine Clarity Hazy Urine pH 6.5 Urine Specific Ranger 1.015 Urine Protein Neg (NEG-TRACE) Urine Glucose (UA) 500 mg/dL (NEG) Urine Ketones (Stick) >=160 mg/dL (NEG) Urine Blood Neg (NEG) Urine Nitrite Neg (NEG) Urine Bilirubin Neg (NEG) Urine Urobilinogen Dipstick 0.2 mg/dL (0.2 mg/dL) Urine Leukocyte Esterase Neg (NEG) Urine RBC 1-2 /HPF (0-2) Urine WBC 1-4 /HPF (0-4) Urine Squamous Epithelial Cells Many /LPF Urine Bacteria 0 /HPF (0-FEW) Sodium Level 132 mmol/L (136-145) L Potassium Level 4.6 mmol/L (3.5-5.1) Chloride Level 94 mmol/L (98-107) L Carbon Dioxide Level 24 mmol/L (21-32) Anion Gap 14 (6-14) Blood Urea Nitrogen 20 mg/dL (7-20) Creatinine 0.7 mg/dL (0.6-1.0) Estimated GFR (Cockcroft-Gault) 101.1 BUN/Creatinine Ratio 29 (6-20) H Glucose Level 376 mg/dL (70-99) H Calcium Level 9.4 mg/dL (8.5-10.1) Magnesium Level 1.9 mg/dL (1.8-2.4) Total Bilirubin 0.7 mg/dL (0.2-1.0) Aspartate Amino Transferase (AST) 19 U/L (15-37) Alanine Aminotransferase (ALT) 22 U/L (14-59) Alkaline Phosphatase 109 U/L (46-116) Total Protein 8.5 g/dL (6.4-8.2) H Albumin 4.4 g/dL (3.4-5.0) Albumin/Globulin Ratio 1.1 (1.0-1.7) POC Urine HCG, Qualitative hcg negative (Negative) Glucose (Fingerstick) 361 mg/dL (70-99) H EKG EKG [] Radiology/Procedures Radiology/Procedures [] Course & Med Decision Making Course & Med Decision Making Pertinent Labs and Imaging studies reviewed. (See chart for details) 27-year-old female with type 1 diabetes presents with intractable vomiting. She was given a liter of fluid and IV Zofran. She continued to have vomiting and was given a dose of IV Benadryl plus Reglan. That seemed to work a lot better for her vomiting and she was able to rest. Labs show hyperglycemia but no evidence of DKA at this time. No evidence of UTI. I discussed with the patient that we could give her her usual dose of insulin that would be indicated for a blood sugar of 360, she states that would be 8 units of NovoLog. We also gave her evening dose of Levemir. Patient was hydrated with 2 L of normal saline while in the ED. I believe she is stable for discharge to resume her usual insulin regimen. See instructions for plan. [] Dragon Disclaimer Dragon Disclaimer This chart was dictated in whole or in part using Voice Recognition software in a busy, high-work load, and often noisy Emergency Department environment. It may contain unintended and wholly unrecognized errors or omissions. Departure Departure: Impression: Primary Impression: Hyperglycemia Additional Impression: Nausea & vomiting Disposition: 01 HOME, SELF-CARE Condition: IMPROVED Referrals: DANIAL VINCENT (PCP) Patient Instructions: Nausea and Vomiting, [id number] Additional Instructions: Tonight in the ER, you had your evening dose of Levemir and you had 8 units of NovoLog. Try to get a good night sleep tonight. Tomorrow morning, stick with clear liquids for the first meal and if you are feeling better, small amounts of bland foods as tolerated. Tomorrow morning, take insulin as prescribed. Problem Qualifiers HANNAH ANTUNEZ MD Jun 05, 2017 23:00
[2017-06-13] MEDS ORDERED: DICY20TA3 PO (10:13)
[2017-06-13] MEDS ORDERED: BUPR-192 PO (10:13)
== END 2017-06-05 23:35 | disposition home or self-care (01) ==
LOC: ER 19:12
DX: E10.65 Type 1 diabetes mellitus with hyperglycemia (principal); K21.9 Gastro-esophageal reflux disease without esophagitis; Z79.4 Long term (current) use of insulin; Z88.8 Allergy status to other drugs, medicaments and biological substances; Z88.6 Allergy status to analgesic agent; Z91.041 Radiographic dye allergy status; F17.200 Nicotine dependence, unspecified, uncomplicated; F12.10 Cannabis abuse, uncomplicated; F15.10 Other stimulant abuse, uncomplicated
CPT/HCPCS: 36415; 80053; 81001; 81025; 82947; 83735; 85027; 96361; 96372; 96374; 96375; 99285; J1200; J1815; J2405; J2765; J3010; J7030

== ENCOUNTER 2017-06-07 15:07 | Inpatient (IN) | payer BC ==
[~2017-06-07] VITALS: Ht 170.2 cm; Wt 66.4 kg
[2017-06-07] VITALS (7 sets, daily range): BP systolic 98–118; BP diastolic 57–71
[2017-06-07] MEDS ORDERED: IV NORMAL SALINE 1,000ML 1,000 ML IV SCH ×2 (15:31→16:38)
[2017-06-07] MEDS ORDERED: ONDANSETRON ODT 4 MG TAB.RAPDIS PO PRN (15:45)
[2017-06-07] MEDS ORDERED: ONDANSETRON PF 4 MG/2 ML VIAL. IV PRN (15:45)
[2017-06-07] MEDS ORDERED: INSULIN REGULAR 100 UNIT/ML 10ML VIAL. IV ONE (16:00)
[2017-06-07 16:03] LABS: BASO # 0.1 x10^3/uL (0.0-0.2); BASO % 1 % (0-3); EOS % 0 % (0-3); HEMOGLOBIN 14.2 g/dL (12.0-15.5); LYMPH # 1.7 x10^3/uL (1.0-4.8); LYMPH % 23 % (24-48); MEAN CORPUSCULAR HEMOGLOBIN 29 pg (25-35); MEAN CORPUSCULAR HGB CONC 32 g/dL (31-37); MEAN CORPUSCULAR VOLUME 91 fL (79-100); MONO # 0.3 x10^3/uL (0.0-1.1); MONO % 4 % (0-9); NEUT # 5.3 x10^3uL (1.8-7.7); NEUT % 72 % (31-73); PLATELET COUNT 380 x10^3/uL (140-400); RED BLOOD COUNT 4.93 x10^6/uL (3.50-5.40); RED CELL DISTRIBUTION WIDTH 16.3 % (11.5-14.5); WHITE BLOOD COUNT 7.3 x10^3/uL (4.0-11.0)
[2017-06-07 16:15] LABS: CALCIUM 9.4 mg/dL (8.5-10.1); CREATININE 1.3 mg/dL (0.6-1.0); GFR 49.5; POTASSIUM 4.8 mmol/L (3.5-5.1)
[2017-06-07] MEDS ORDERED: INSULIN REGULAR 150 UNIT in 0.9 % SODIUM CHLORIDE 150ML 150 ML IV ONE (16:30)
--- NOTE | 2017-06-07 16:38 | PHYS DOC ---
Past History Past Medical History: Diabetes Additional Past Medical Histor: pt reports several admissions for "high blood sugar" Past Surgical History: No Surgical History Smoking: Less than 1pk/day Alcohol Use: None Drug Use: None Adult General Chief Complaint Chief Complaint: MULTIPLE COMPLAINTS HPI HPI Patient is a 27 year old F who presents with nausea/vomiting and abdominal pain that has been going on for the past "7years". She was seen in the ED 06/05/17 with similar symptoms however she states that she feels much worse. She states that she took long acting insulin 15units last night and short acting insulin 10units this morning. She is suppose to take long-acting insulin 15 units twice daily however she was not eating this morning so she did not take her long- acting. She also feels that her condition is associated with shortness of breath mostly when she is vomiting Review of Systems Review of Systems Constitutional: Chills Eyes: Denies change in visual acuity, redness, or eye pain [] HENT: Denies nasal congestion or sore throat [] Respiratory: Neg except HPI Cardiovascular: No additional information not addressed in HPI [] GI: Neg except HPI : Denies dysuria or hematuria She does not urinary frequency Musculoskeletal: Denies back pain or joint pain [] Integument: Denies rash or skin lesions [] Neurologic: Denies headache, focal weakness or sensory changes [] Endocrine: She notes polyuria or polydipsia [] Family History Family History reviewed Current Medications Current Medications Home meds reviewed Current Medications Medications (Trade) Dose Ordered Sig/Chevy Start Time Stop Time Status Last Admin Dose Admin Insulin Human Regular (NovoLIN R) 10 unit 1X ONCE 06/07/17 16:00 06/07/17 16:01 DC 06/07/17 16:00 10 UNIT Ondansetron HCl (Zofran Odt) 4 mg Q4H PRN 06/07/17 15:45 Ondansetron HCl (Zofran) 4 mg Q4H PRN 06/07/17 15:45 06/07/17 16:02 4 MG Sodium Chloride 1,000 ml @ 1,000 mls/hr Q1H 06/07/17 15:31 06/07/17 16:30 06/07/17 15:59 1,000 MLS/HR Allergies Allergies Coded Allergies Type Severity Reaction Last Updated Verified acetaminophen Allergy Intermediate HIVES 05/20/17 Yes adhesive tape Allergy Intermediate 05/20/17 Yes I S O L A T I O N *CONTACT* Allergy Unknown 05/20/17 Yes Physical Exam Physical Exam Constitutional: Well developed, mild acute distress, non-toxic appearance. [] HENT: Normocephalic, atraumatic, bilateral external ears normal, oropharynx dry , no oral exudates, nose normal. [] Eyes: PERRLA, EOMI, conjunctiva normal, no discharge. [] Neck: Normal range of motion, no tenderness, supple, no stridor. [] Cardiovascular:Heart rate regular rhythm, Lungs & Thorax: Bilateral breath sounds clear to auscultation [] Mild tachypnea Abdomen: Bowel sounds normal, soft, no tenderness, no masses, no pulsatile masses. [] Minimal generalized TTP Skin: Warm, dry, no erythema, no rash. [] Back: No tenderness, no CVA tenderness. [] Extremities: No tenderness, no cyanosis, no clubbing, ROM intact, no edema. [] Neurologic: Alert and oriented X 3, normal motor function, normal sensory function, no focal deficits noted. [] Psychologic: Affect normal, judgement normal, mood normal. [] Current Patient Data Vital Signs Vital Signs Date Time Temp Pulse Resp B/P (MAP) Pulse Ox O2 Delivery O2 Flow Rate FiO2 06/07/17 15:15 98.3 132 26 99 Room Air Lab Results Laboratory Tests Test 06/07/17 15:18 06/07/17 15:50 Glucose (Fingerstick) 500 mg/dL (70-99) *H White Blood Count 7.3 x10^3/uL (4.0-11.0) Red Blood Count 4.93 x10^6/uL (3.50-5.40) Hemoglobin 14.2 g/dL (12.0-15.5) Hematocrit 45.0 % (36.0-47.0) Mean Corpuscular Volume 91 fL (79-100) Mean Corpuscular Hemoglobin 29 pg (25-35) Mean Corpuscular Hemoglobin Concent 32 g/dL (31-37) Red Cell Distribution Width 16.3 % (11.5-14.5) H Platelet Count 380 x10^3/uL (140-400) Neutrophils (%) (Auto) 72 % (31-73) Lymphocytes (%) (Auto) 23 % (24-48) L Monocytes (%) (Auto) 4 % (0-9) Eosinophils (%) (Auto) 0 % (0-3) Basophils (%) (Auto) 1 % (0-3) Neutrophils # (Auto) 5.3 x10^3uL (1.8-7.7) Lymphocytes # (Auto) 1.7 x10^3/uL (1.0-4.8) Monocytes # (Auto) 0.3 x10^3/uL (0.0-1.1) Eosinophils # (Auto) 0.0 x10^3/uL (0.0-0.7) Basophils # (Auto) 0.1 x10^3/uL (0.0-0.2) Sodium Level 129 mmol/L (136-145) L Potassium Level 4.8 mmol/L (3.5-5.1) Chloride Level 90 mmol/L (98-107) L Carbon Dioxide Level 12 mmol/L (21-32) L Anion Gap 27 (6-14) H Blood Urea Nitrogen 22 mg/dL (7-20) H Creatinine 1.3 mg/dL (0.6-1.0) H Estimated GFR (Cockcroft-Gault) 49.5 Glucose Level 513 mg/dL (70-99) *H Calcium Level 9.4 mg/dL (8.5-10.1) Course & Med Decision Making Course & Med Decision Making Pertinent Labs and Imaging studies reviewed. (See chart for details) ED course: Alonso was initially started on IV fluids. Her initial accu-check was greater than 500. She was given 10 units of short-acting insulin subcutaneous. She was also given Zofran to treat her nausea. She was started on an insulin drip at 10 units per hour after her labs returned showing anion gap acidosis with a bicarbonate of 12. Her potassium was normal and not require replacement at this time. She was admitted in stable condition. Dragon Disclaimer Dragon Disclaimer This chart was dictated in whole or in part using Voice Recognition software in a busy, high-work load, and often noisy Emergency Department environment. It may contain unintended and wholly unrecognized errors or omissions. Departure Departure: Impression: Primary Impression: DKA (diabetic ketoacidoses) Disposition: ADMITTED INPATIENT Condition: STABLE Referrals: DANIAL VINCENT (PCP) Problem Qualifiers Primary Impression: DKA (diabetic ketoacidoses) Diabetes mellitus type: type 1 Diabetes mellitus complication detail: without coma Qualified Codes: E10.10 - Type 1 diabetes mellitus with ketoacidosis without coma PERNELL YODER MD Jun 07, 2017 16:37
[2017-06-07] MEDS ORDERED: MAGNESIUM SULFATE 2GM 50 ML IV PRN (17:30)
[2017-06-07] MEDS ORDERED: POTASSIUM CHLORIDE 10MEQ 100 ML IV PRN (17:30)
[2017-06-07] MEDS ORDERED: INSULIN REGULAR 150 UNIT in 0.9 % SODIUM CHLORIDE 150ML 150 ML IV PRN (17:30)
[2017-06-07] MEDS: IV NORMAL SALINE 1,000ML 1,000 ML IV SCH ×4 (18:23→22:47)
[2017-06-07] MEDS: ONDANSETRON PF 4 MG/2 ML VIAL. IV PRN ×2 (18:23→23:08)
[2017-06-07] MEDS ORDERED: KETOROLAC 15 MG/ML VIAL. IV PRN (18:45)
[2017-06-07] MEDS ORDERED: KETOROLAC 30 MG/ML VIAL. IV ONE (18:45)
[2017-06-07 21:31] LABS: CALCIUM 7.7 mg/dL (8.5-10.1); CREATININE 0.8 mg/dL (0.6-1.0); GFR 86.7; MAGNESIUM 1.5 mg/dL (1.8-2.4)
[2017-06-07] MEDS ORDERED: MAGNESIUM SULFATE 2GM 50 ML IV ONE (22:15)
[2017-06-08] VITALS (17 sets, daily range): BP systolic 97–136; BP diastolic 53–91
[2017-06-08] MEDS: IV NORMAL SALINE 1,000ML 1,000 ML IV SCH ×4 (01:35→20:57)
[2017-06-08 01:38] LABS: BARBITURATES NEG (NEG); BENZODIAZEPINES NEG (NEG); CANNABINOIDS NEG (NEG); COCAINE NEG (NEG); METHADONE NEG (NEG); OPIATES NEG (NEG); PHENCYCLIDINE NEG (NEG)
[2017-06-08 01:39] LABS: AMPHETAMINE/METHAMPHETAMINE NEG (NEG)
[2017-06-08 01:41] LABS: BACTERIA,URINE 0 /HPF (0-FEW); BILIRUBIN,URINE NEG (NEG); CLARITY,URINE CLEAR; COLOR,URINE YELLOW; GLUCOSE,URINE 500 mg/dL (NEG); NITRITE,URINE NEG (NEG); RBC,URINE 0 /HPF (0-2); UROBILINOGEN,URINE 0.2 mg/dL (0.2 mg/dL); WBC,URINE OCC /HPF (0-4)
[2017-06-08 01:42] LABS: SQUAMOUS EPITHELIAL CELL,UR FEW /LPF
[2017-06-08 06:09] LABS: BASO # 0.1 x10^3/uL (0.0-0.2); BASO % 1 % (0-3); EOS # 0.1 x10^3/uL (0.0-0.7); EOS % 2 % (0-3); HEMATOCRIT 29.6 % (36.0-47.0); LYMPH # 2.9 x10^3/uL (1.0-4.8); LYMPH % 46 % (24-48); MEAN CORPUSCULAR HEMOGLOBIN 29 pg (25-35); MEAN CORPUSCULAR HGB CONC 34 g/dL (31-37); MEAN CORPUSCULAR VOLUME 86 fL (79-100); MONO # 0.5 x10^3/uL (0.0-1.1); MONO % 8 % (0-9); NEUT # 2.8 x10^3uL (1.8-7.7); NEUT % 43 % (31-73); PLATELET COUNT 261 x10^3/uL (140-400); RED BLOOD COUNT 3.44 x10^6/uL (3.50-5.40); RED CELL DISTRIBUTION WIDTH 15.8 % (11.5-14.5); WHITE BLOOD COUNT 6.3 x10^3/uL (4.0-11.0)
[2017-06-08 06:12] LABS: CALCIUM 7.4 mg/dL (8.5-10.1); CREATININE 0.7 mg/dL (0.6-1.0); GFR 101.1; POTASSIUM 3.3 mmol/L (3.5-5.1)
[2017-06-08] MEDS: POTASSIUM CHLORIDE 10MEQ 100 ML IV PRN ×2 (06:42→13:45)
[2017-06-08] MEDS: POTASSIUM CL 20MEQ D5-0.45NACL 1,000 ML IV SCH ×2 (07:00→12:43)
[2017-06-08] MEDS: PANTOPRAZOLE 40 MG TABLET. PO SCH (08:29)
[2017-06-08] MEDS: MAGNESIUM OXIDE 400 MG TABLET PO SCH ×3 (08:29→20:57)
[2017-06-08] MEDS: ONDANSETRON PF 4 MG/2 ML VIAL. IV PRN (08:29)
[2017-06-08] MEDS ORDERED: DEXTROSE 50% 25 GM / 50ML DISP.SYRIN. IV PRN (08:30)
[2017-06-08] MEDS: ESCITALOPRAM 10 MG TABLET. PO SCH (08:59)
[2017-06-08] MEDS: INSULIN DETEMIR 300 UNITS/3 ML INSULN.PEN. SQ SCH ×2 (09:02→21:00)
[2017-06-08] MEDS: METOCLOPRAMIDE 5 MG TABLET PO SCH ×3 (11:12→20:57)
[2017-06-08] MEDS: INSULIN ASPART 300 UNITS/3 ML INSULN.PEN SQ SCH ×4 (11:18→22:53)
[2017-06-08] MEDS ORDERED: POTASSIUM CHLORIDE 10 MEQ TABLET.ER. PO ONE (14:30)
[2017-06-08] MEDS ORDERED: POTASSIUM CHLORIDE 20 MEQ TABLET.ER. PO ONE (14:30)
--- NOTE | 2017-06-08 15:42 | HP ---
ADMIT DATE: 06/08/2017 HISTORY OF PRESENT ILLNESS: The patient is a 27-year-old female patient who yet again came to the Emergency Room with a complaint of nausea, vomiting and was found to be again in diabetic ketoacidosis. She was here on 06/05/2017 with similar systems, however, she was treated in the Emergency Room and was sent back home and she states that she is compliant with her medication; however, her lab work on initial evaluation at the Emergency Room showed that her blood sugar was more than 500, her anion gap was high at 27. She has dilutional hyponatremia. She has also marked dehydration and acute kidney injury and therefore she was started on IV fluid and insulin drip and admitted to ICU to continue with the management of her diabetic ketoacidosis. PAST MEDICAL HISTORY: Significant for type 1 diabetes mellitus, very brittle and poorly controlled diabetic gastroparesis; diabetic peripheral neuropathy; multiple episodes of DKA requiring hospitalization; chronic hypomagnesemia; chronic methamphetamine abuse. PAST SURGICAL HISTORY: Significant for Port-A-Cath placement and removal and incision and drainage of an abscess in the left axillary area. ALLERGIES: She is allergic to TYLENOL and ADHESIVE TAPE. MEDICATIONS: She is currently on following medications: She is on Escitalopram Oxalate 5 mg once a day, NovoLog insulin as insulin sliding scale, Levemir insulin 15 units subcutaneously twice a day, and magnesium oxide 400 mg 3 times a day, metoclopramide 10 mg before meals at and bedtime and Protonix 40 mg once a day. FAMILY HISTORY: Unremarkable. SOCIAL HISTORY: She is single. Does not smoke and quit using amphetamine about 2 weeks ago according to her. She lives with her mom. She has not worked. She went to [employer]icate timeads school, but she has not graduated. REVIEW OF SYSTEMS: Nausea and vomiting as well as abdominal pain. PHYSICAL EXAMINATION: GENERAL: On arrival to the Emergency Room, she was pale. No jaundice or cyanosis; lymphadenopathy and no thyromegaly. No jugular venous distension. No limb edema. VITAL SIGNS: Her heart rate was 132, blood pressure was 94/59, temperature was 98.3, respiratory rate was 26 and oxygen saturation was 99% on room air. HEAD, EYES, EARS, NOSE and THROAT: Showed normocephalic, atraumatic. NECK: Supple. HEART: Showed normal first and second heart sounds with no gallop, rub or murmur. CHEST: Clear to auscultation. No crepitation or rhonchi. ABDOMEN: Distended, soft, nontender. No guarding or rigidity. No organomegaly. Hernial orifices intact. Bowel sounds normal. NEUROLOGIC: She was awake, alert, responding appropriately. Cranial nerves intact. EXTREMITIES: She moves extremities without difficulty. LABORATORY DATA: On admission showed a white cell count 7300, hemoglobin 14, hematocrit 45, MCV 91, and platelet count 380,000. The manual differential shows 72% polymorphs, 23% lymphocytes. Her chemistry on admission showed that her serum sodium 129, potassium was 4.8, chloride 90, bicarbonate 12, anion gap of 27, BUN 22, creatinine 1.3, estimated GFR was 49 mL per minute. Her glucose was 513 and calcium was 9.4. Her urine was yellow, clear with a pH of 5.5, specific gravity of 1.020. There was a trace of protein, large amount of glucose and large amount of ketones. The urine was negative for blood, nitrite, bilirubin and leukocyte esterase. There is 0 rbc's, occasional wbc's, very few bacteria and her urine toxicology screen was essentially negative. IMPRESSION AND PLAN: In summary, this is a 27-year-old female patient who yet again came with another episode of diabetic ketoacidosis with high anion gap, hyponatremia, and acute kidney injury. She was started on IV fluid and insulin drip. We will monitor her electrolytes and replenish her potassium as needed and once she is able to tolerate diet, we will start her back on her usual regimen. ANAYELI FOSS MD DR: JOSÉ/regina JOB#: [id number] / [id number]
--- NOTE | 2017-06-09 02:23 | ACF ---
Admit Criteria Forms Admit Criteria Forms Admit Criteria Forms GENERAL ADMISSION CRITERIA (Place 'X' for any and all applicable criteria): Admission is indicated for ANY ONE of the following: [ ]I. Hemodynamic instability as indicated by ANY ONE of the following(1)(2) (3)(4)(5): [ ]a) Vital sign abnormality not readily corrected by appropriate treatment within 12 to 24 hours indicated by ANY ONE of the following: [ ]i) Hypotension [ ]ii) Symptomatic Tachycardia unresponsive to treatment (eg , analgesia, fluids, sedation as indicated) [ ]iii) Orthostatic vital sign changes unresponsive to treatment (eg, fluids) [ ]b) Vital sign abnormality that is severe indicated by ANY ONE of the following: [ ]i) Inadequate perfusion indicated by ANY ONE of the following: [ ]1) Lactic acidosis (greater than 2 mmol/L) [ ]2) New abnormal capillary refill (greater than 3 seconds) [ ]3) Other metabolic acidosis (arterial pH less than 7.35) not otherwise explained [ ]4) Reduced urine output [ ]5) Altered mental status [ ]6) Myocardial Ischemia [ ]v) Mean arterial pressure[A] less than 60 mm Hg [ ]vi) Mean arterial pressure[A] less than 70 mm Hg after 30 minutes of appropriate treatment (eg, fluid resuscitation) [ ]vii) IV inotropic or vasopressor medication required to maintain adequate blood pressure or perfusion [ ]viii) Sustained heart rate greater than 120 beats per minute in adult or child 6 years or older[B]] [ ]II. Hypertension requiring inpatient treatment as indicated by ANY ONE of the following(6)(7)(8): [ ]a) SBP greater than 220 mm Hg or DBP greater than 120 mm Hg despite treatment [ ]b) SBP greater than 140 mm Hg or DBP greater than 100 mm Hg with evidence of acute end organ damage as indicated by ANY ONE of the following: [ ]i) Encephalopathy [ ]ii) Acute renal failure as indicated by new onset of ANY ONE of the following(9)(10)(11)(12)(13): [ ]1) A 3-fold rise in serum creatinine from baseline [ ]2) Serum creatinine greater than 4 mg/dL ( 354 micromoles/L) with acute rise greater than 0.5 mg/dL (44.2 micromoles/L) [ ]3) Reduction of more than 75% in estimated glomerular filtration rate from baseline [ ]4) Estimated glomerular filtration rate less than 35 mL/min/1.73m2 (0.59 mL/sec/1.73m2) in child up to 18 years of age [ ]5) Cessation of urine output indicated by ALL of the following: [ ]A. Adequate volume status [ ]B. Inadequate urine output as indicated by ANY ONE of the following: [ ]a. Urine output less than 0.3 mL/kg/hr for 24 hours [ ]b. Anuria (urine output less than 0.1 mL/kg/hr) for 12 hours [ ]iii) Aortic dissection [ ]iv) Myocardial ischemia [ ]v) Left ventricular heart failure [ ]vi) Retinal hemorrhage [ ]vii) Other significant finding [ ]c) Hypertension in child requiring inpatient treatment as indicated by ALL of the following(14)(15)(16): [ ]i) Outpatient treatment not effective, not available, or not appropriate [ ]ii) SBP or DBP greater than 95th percentile for age [ ]iii) Evidence of acute end organ damage as indicated by ANY ONE of the following: [ ]1) Altered mental status [ ]2) Acute renal failure as indicated by new onset of ANY ONE of the following(9)(10)(11)(12)(13): [ ]A. A 3-fold rise in serum creatinine from baseline [ ]B. Serum creatinine greater than 4 mg/dL (354 micromoles/L) with acute rise greater than 0.5 mg/dL (44.2 micromoles/L) [ ]C. Reduction of more than 75% in estimated glomerular filtration rate from baseline [ ]D. Estimated glomerular filtration rate less than 35 mL/min/1.73m2 (0.59 mL/sec/1.73m2)in child up to 18 years of age [ ]E. Cessation of urine output indicated by ALL of the following: [ ]a. Adequate volume status [ ]b. Inadequate urine output as indicated by ANY ONE of the following: [ ]1) Urine output less than 0.3 mL/kg/hr for 24 hours [ ]2) Anuria (urine output less than 0.1 mL/kg/hr) for 12 hours [ ]3) Severe headache [ ]4) Visual disturbance [ ]5) Retinal hemorrhage [ ]6) Other significant finding [ ]III. Acute cardiac or peripheral ischemia as indicated by ANY ONE of the following: [ ]a) Acute coronary syndrome(17)(18) [ ]b) Acute peripheral ischemia (eg, pulseless, cool, mottled, or cyanotic extremity)(19) [ ]IV. Cardiac arrhythmias or findings of immediate concern indicated by ANY ONE of the following(20)(21): [ ]a) Heart rhythms that are inherently dangerous or unstable indicated by ANY ONE of the following(22)(23)(24): [ ]i) Resuscitated ventricular fibrillation or cardiac arrest [ ]ii) Ventricular escape rhythm [ ]iii) Sustained ventricular tachycardia (30 seconds or more of ventricular rhythm at greater than 100 beats per minute) [ ]iv) Nonsustained ventricular tachycardia and ANY ONE of the following: [ ]1) Suspected cardiac ischemia as cause or consequence of ventricular tachycardia [ ]2) In setting of acute myocarditis [ ]b) Unstable cardiac conduction defects indicated by ANY ONE of the following(24)(25)(26): [ ]i) Type II second-degree atrioventricular block [ ]ii) Third-degree atrioventricular block [ ]iii) New-onset left bundle branch block with suspected myocardial ischemia [ ]c) Any heart rhythm and ANY ONE of the following(22)(23)(27)(28)( 29): [ ] i) Continuous long-term ECG monitoring needed (eg, initiation of drug requiring monitoring for more than 24 hours) [ ] ii) Patient has automatic implanted cardioverter defibrillator that is repeatedly firing, malfunctioning, or in need of immediate adjustment of settings beyond the scope of ambulatory or observation care. [ ]d) Heart rhythms of concern due to ANY ONE of the following: [ ]i) Hypotension [ ]ii) Respiratory distress [ ]iii) Association with other significant symptoms (eg, bradycardia with syncope or ongoing dizziness, supraventricular tachycardia with chest pain) (27)(28) (30) [ ] V. Severe heart failure as indicated by ANY ONE of the following ( 31)(32): [ ]a) Respiratory distress [ ]b) Hypotension [ ]c) Anasarca (refractory to outpatient therapy) [ ]d) Cardiac arrhythmias of immediate concern [ ]e) Myocardial ischemia [ ]. Respiratory abnormalities, including ANY ONE of the following(33)(34) (35)(36): [ ]a) Respiratory rate greater than 30 breaths per minute unresponsive to treatment [A] [ ]b) New saturation of arterial oxygen less than 90% [ ]c) New partial pressure of carbon dioxide greater than 44 mm Hg ( 5.9 kPa) [ ]d) Supplemental oxygen or respiratory treatments needed that are new or not performable at other levels of care [ ]e) New-onset cyanosis [ ]f) Inability to protect airway [ ]g) Chronic lung disease with severe deterioration (not responsive to emergency and observation care treatment as appropriate) as indicated by ANY ONE of the following(34)(36 ): [ ]i) SaO2 5% below baseline in patient with chronic hypoxemia [ ]ii) New requirement for supplemental oxygen to keep SaO2 at baseline or acceptable level [ ]iii) Required supplemental oxygen performable only in acute inpatient setting [ ]iv) Severe airflow or ventilation abnormalities [ ]v) Previously mobile patient unable to walk between rooms [ ]vi Inability to eat or sleep due to dyspnea [ ]vii) Rapid rate of exacerbation onset [ ]viii) Altered mental status ]VII. Severe airflow or ventilation abnormalities (not responsive to emergency and observation care treatment as appropriate) as indicated by ANY ONE of the following(33)(34)(35)(37): [ ]a) PCO2 greater than 42 mm Hg (5.6 kPa) and pH less than 7.35 (new ) [ ]b) Documented PCO2 increased more than 5 mm Hg (0.7 kPa) from disease baseline [ ]c) Airflow measurements [B] less than 60% of previous best or predicted (eg, peak expiratory flow rate less than 300 L/minute) despite intensive emergent treatment [C] [ ]d) Required respiratory treatments that are performable only in acute inpatient setting [ ]VIII. Impending or actual respiratory arrest ( Also use Respiratory Failure GRG for severe respiratory disease and long-term mechanical ventilation patients) [ ]IX. Neurologic abnormalities, including ANY ONE of the following: [ ]a) New findings that suggest ANY ONE of the following: [ ]i) J[employer]GER infection(38) [ ]ii) Cerebral bleeding, ischemia, or vasospasm(39)(40) [ ]iii) Increased intracranial pressure, hydrocephalus, or cerebral edema(41)(42)(43) [ ]iv) Spinal cord injury(44) [ ]b) Uncontrolled seizures(45) [ ]c) New-onset coma (eg, [place] coma scale score less than 9) or unexplained abnormal mental status (eg, [place] coma scale score less than 14) [D](41)(46)(47) [ ]X. New-onset severe neurologic findings requiring inpatient care; examples include(42)(48)(49): [ ]a) Papilledema [ ]b) Cerebral edema [ ]c) Mass effect on CT scan [ ]XI. Suspected acute intra-abdominal process with peritoneal signs, abdominal mass, or similar findings (50)(51)(52) [X]XII. Severe physiologic disorder remaining after emergency or observation level care (as appropriate) as indicated by ANY ONE of the following (53): [ ]a) Significant dehydration [X]b) Diabetic ketoacidosis [ ]c) Hyperglycemic hyperosmolar state (eg, osmolality greater than 320 mOsm/kg (mmol/kg) [ ]d) Hypoglycemia [ ]e) Other (new) acid-base disorder with pH less than 7.35 or greater than 7.5(54) [ ]f) Thyroid storm (55) [ ]g) Myxedema coma (55) [ ]XIII. Abdominal abnormalities with ANY ONE of the following(56)(57): [ ]a) Absent bowel sounds with complete ileus [ ]b) Signs of intestinal obstruction or peritonitis [E] [ ]c) Nausea and vomiting that cannot be controlled with outpatient or observation care [ ]XIV. Acute renal failure as indicated by new onset of ANY ONE of the following(9)(10)(11)(12)(13): [ ]a) A 3-fold rise in serum creatinine from baseline [ ]b) Serum creatinine greater than 4 mg/dL (354 micromoles/L) with acute rise greater than 0.5 mg/dL (44.2 micromoles/L) [ ]c) Reduction of more than 75% in estimated glomerular filtration rate from baseline [ ]d) Estimated glomerular filtration rate less than 35 mL/min/ 1.73m2 (0.59 mL/sec/1.73m2) in child up to 18 years of age [ ]e) Cessation of urine output indicated by ALL of the following: [ ]i) Adequate volume status [ ]ii) Inadequate urine output as indicated by ANY ONE of the following: [ ]1) Urine output less than 0.3 mL/kg/hr for 24 hours [ ]2) Anuria (urine output less than 0.1 mL/kg/hr) for 12 hours [ ]XV. Significant uremic complications as indicated by ANY ONE of the following(58)(59)(60): [ ]a) Outpatient therapy is ineffective or not feasible for ANY ONE of the following: [ ]i) Severe heart failure [ ]ii) Severehypertension [ ]iii) Pleural effusion [ ]iv) Pericarditis or pericardial effusion [ ]b) Cardiac arrhythmias of immediate concern [ ]c) Intractable nausea or vomiting [ ]d) Recurrent seizures [ ]e) Encephalopathy [ ]f) Bleeding abnormalities (eg, platelet dysfunction) with active (eg, gastrointestinal) bleeding [ ]g) Dialysis indicated before long-term access or ambulatory arrangements can be made [ ]h) Significant metabolic or electrolyte abnormalities (eg, severe acidosis or hyperkalemia) [ ]XVI. High fever or other high-risk infection situation as indicated by ANY ONE of the following(61)(62)(63)(64): [ ]a) Outpatient and observation care antimicrobial treatment unavailable, not effective, or not appropriate [ ]b) Documented bacteremia [ ]c) Temperature greater than 40.5 degrees C (104.9 degrees F) ( oral) [ ]d) Temperature greater than 39.5 degrees C (103.1 degrees F) ( oral) or less than 36 degrees C (96.8 degrees F) (rectal) that does not respond to e treatment and observation care [ ] XVII. Temperature less than 95 degrees F (35 degrees C)(rectal)(65) [ ] XVIII. Severe nutritional abnormalities as indicated by ALL of the following (66)(67): [ ]a) Inability to tolerate or establish sufficient oral or other enteral nutrition in outpatient setting [ ]b) Parenteral nutrition regimen need that must be implemented on inpatient basis [ ] XIX. Severe electrolyte abnormalities indicated by ALL of the following(68) (69)(70): [ ]a) Electrolytes and associated findings are not as expected for patient baseline or acceptable treatment effects. [ ]b) Severe abnormalities indicated by ANY ONE of the following: [ ]i) Sodium less than 130 mEq/L (mmol/L) (new) [ ]ii)Sodium less than 135 mEq/L (mmol/L) with ANY ONE of the following: [ ]1) Uncorrectable (to near normal or chronic baseline) after trial of outpatient and emergency treatment [ ]2) Altered mental status [ ]3) Seizures [ ]4) Severe medical etiology requiring inpatient management (eg, heart failure, hypovolemia) [ ]iii) Sodium greater than 155 mEq/L (mmol/L) [ ]iv) Sodium greater than 150 mEq/L (mmol/L) with ANY ONE of the following: [ ]1) Uncorrectable (to near normal or chronic baseline) with outpatient and emergency treatment [ ]2) Altered mental status [ ]3) Seizures [ ]4) Severe medical etiology (eg, hypovolemia, diabetes insipidus) [ ]v) Potassium less than 2.5 mEq/L (mmol/L) despite outpatient and emergency treatment [ ]vi) Potassium less than 3 mEq/L (mmol/L) with ANY ONE of the following: [ ]1) Weakness [ ]2) Cardiac abnormality (eg, arrhythmia, conduction disturbance) [ ]3) Cardiac ischemia [ ]4) Ileus [ ]5) Ongoing medical cause requiring inpatient management (eg, acute renal wasting or SIADH) [ ]6) Other severe symptoms [ ]vii) Potassium greater than 6.5 mEq/L (mmol/L) [ ]viii) Potassium greater than 5 mEq/L (mmol/L) with ANY ONE of the following: [ ]1) Uncorrectable (to near normal or chronic baseline) with outpatient and emergency treatment [ ]2) Severe ECG findings [F] [ ]3) Acute worsening of renal failure (creatinine greater than 2.5 mg/dL (221 micromoles/L) or significant elevation for age and size) [ ]4) Severe weakness [ ]5) Severe medical etiology (eg, hemolysis, infection, drug overdose) [ ]ix) Calcium less than 7 mg/dL (1.75 mmol/L) despite outpatient and emergency treatment (72) [ ]x) Calcium less than 8 mg/dL (2 mmol/L) with significant symptoms or findings; examples include(72): [ ]1) Altered mental status [ ]2) Muscle spasms [ ]3) Seizures [ ]4) Breathing difficulty [ ]5) Cardiac abnormality (eg, arrhythmia or conduction disturbance) [ ]xi) Calcium greater than 14 mg/dL (3.5 mmol/L)(72) [ ]xii) Calcium greater than 12 mg/dL (3 mmol/L) with ANY ONE of the following(72): [ ]1) Uncorrectable (to near normal or chronic baseline) with outpatient and emergency treatment [ ]2) Significant dehydration or hypovolemia as indicated by ALL of the following(70)(73)(74): [ ]A. Not resolved with initial treatments [ ]B. Clinically significant dehydration as indicated by ANY ONE of the following: [ ]a. Vomiting refractory to outpatient treatment (ie, precluding oral rehydration) [ ]b. Inability to drink [ ]c. Hypernatremia or other electrolyte abnormality unable to be corrected with outpatient and emergency treatment [ ]d. Failure to remain hydrated with outpatient therapy [ ]e. Reduced urine output [ ]f. Hypotension [ ]g. Serious cause for dehydration requiring acute hospitalization (eg, bowel obstruction, increased intracranial pressure, infectious cause) [ ]h. Child with ANY ONE of the following(75): [ ]1) Severe abdominal tenderness [ ]2) Adequate care not available at home [ ]3) Severe dehydration ( greater than 9% loss of body weight) [ ]4) Significant symptoms or findings; examples include: [ ]A. Altered mental status [ ]B. Cardiac abnormality (eg, arrhythmia, conduction disturbance) [ ]C. Malignant etiology requiring inpatient treatment [ ]xiii) Phosphorus less than 1 mg/dL (0.32 mmol/L) [ ]xiv) Phosphorus less than 1.5 mg/dL (0.48 mmol/L) with ANY ONE of the following: [ ]1) Patient unresponsive to outpatient and emergency treatment [ ]2) Significant symptoms or findings; examples include: [ ]A. Weakness [ ]B. Altered mental status [ ]C. Breathing difficulty [ ]D. Seizures [ ]E. Rhabdomyolysis [ ]xv) Phosphorus greater than 10 mg/dL (3.2 mmol/L) [ ]xvi) Phosphorus greater than 4.5 mg/dL (1.45 mmol/L) (new) with ANY ONE of the following: [ ]1) Severe medical etiology (eg, crush injury, acute renal failure) [ ]2) Associated hypocalcemia with significant findings; examples include: [ ]A. Neurologic symptoms [ ]B. Altered mental status [ ]C. Muscle spasms [ ]D. Seizures [ ]E. Breathing difficulty [ ]F. Cardiac abnormality (eg, arrhythmia, conduction disturbance) [ ]xvii) Magnesium less than 1 mg/dL (0.41 mmol/L) [ ]xviii) Magnesium less than 1.5 mg/dL (0.62 mmol/L) with ANY ONE of the following: [ ]1) Patient unresponsive to outpatient and emergency treatment [ ]2) Associated hypocalcemia with significant findings; examples include: [ ]A. Altered mental status [ ]B. Muscle spasms [ ]C. Seizures [ ]D. Breathing difficulty [ ]E. Cardiac abnormality (eg, arrhythmia , conduction disturbance) [ ]3) Associated hypokalemia (potassium less than 3 mEq/L (mmol/L)) with risk of arrhythmia [ ]xix) Magnesium greater than 4 mEq/L (2 mmol/L) [ ]xx) Magnesium greater than 2.5 mEq/L (1.25 mmol/L) with significant symptoms or findings; examples include: [ ]1) Weakness [ ]2) Altered mental status [ ]3) Cardiac abnormality (eg, arrhythmia, conduction disturbance) [ ]4) Breathing difficulty [ ]5) Severe medical etiology (eg, renal failure, hypovolemia) [ ]xxi) Uric acid greater than 20 mg/dL (1190 micromoles/L)(76) [ ]xxii) Uric acid greater than 8 mg/dL (476 micromoles/L) with significant symptoms or findings of tumor lysis syndrome; examples include(76): [ ]1) Creatinine greater than 1.5 times upper limit of normal [ ]2) Cardiac abnormality (eg, arrhythmia, conduction disturbance) [ ]3) Seizure [ ]XX. Acute blood loss causing significant abnormality as indicated by ANY ONE of the following(77)(78): [ ]a) Hemoglobin less than 10 g/dL (100 g/L) (not baseline) [ ]b) Hematocrit less than 30% (0.30) (not baseline) [ ]c) Repeat hematocrit decreased more than 2% (0.02) [ ]d) Uncontrolled bleeding [ ]XXI. Severe anemia indicated by ANY ONE of the following(78)(79): [ ]a) Altered mental status [ ]b) Chest pain [ ]c) Exertional dyspnea [ ]d) Syncope [ ]e) Other findings suggesting inadequate perfusion [ ]f) Treatment with transfusion or volume replacement is ineffective at resolving ANY ONE of the following [G]: [ ]i) Tachycardia for age [ ]ii) Orthostatic vital sign changes as indicated by ANY ONE of the following(80): [ ]1) Fall in SBP of 20 mm Hg or more 1 to 3 minutes after patient sits or stands from recumbent position [ ]2) Fall in DBP of 10 mm Hg or more 1 to 3 minutes after patient sits or stands from recumbent position [ ]XXII. High-risk low platelet count as indicated by ANY ONE of the following( 81)(82): [ ]a) Severe or life-threatening bleeding (eg, intracranial, major gastrointestinal, or extensive mucosal bleeding), with any reduced platelet count [ ]b) Platelet count less than 20,000/mm3 (20 x109/L) with any active bleeding [ ]c) Platelet count less than 10,000/mm3 (10 x109/L) with minor purpura or petechiae [ ]d) Platelet count less than 5000/mm3 (5 x109/L) [ ]e) Low platelet count with hemolytic anemia [ ]XXIII. Disseminated intravascular coagulation(77)(83) [ ]XXIV. Severe adverse drug or systemic toxin reaction requiring inpatient treatment; examples include(84)(85): [ ]a) Serotonin syndrome(86) [ ]b) Neuroleptic malignant syndrome(86) [ ]c) Cholinergic syndrome with severe symptoms (eg, bronchorrhea, weakness, mental status changes, seizures) [ ]d) Sympathetic syndrome with severe symptoms (eg, seizures, mental status changes, cardiac dysrhythmias) [ ]e) Anticholinergic syndrome [ ]XXV. Severe pain requiring acute inpatient management as indicated by ALL of the following (87)(88)(89): [ ]a) Continuous or frequent (eg, every 2 to 4 hours) parenteral analgesics required [H] [ ]b) Rapid improvement expected from treatment or acute intervention (eg, surgery, anesthesia procedure) [ ]XXVI.Severe behavioral health issues judged unmanageable at a lower level of care (eg, residential) in a patient who is ANY ONE of the following(91) [ ]a) Acutely suicidal [ ]b) A danger to self (eg, self-mutilating or suicidal behavior) [ ]c) A danger to others (eg, assaultive or homicidal behavior) [ ]d) Incapacitated because of grave disability (eg, inability to provide for self at lower level of care) (92) [ ]XXVII. Inpatient monitoring needed; examples include(1)(3)(87)(93)(94)(95)(96 ): [ ]a) Vital signs, neurologic signs, or vascular checks more frequently than every 4 hours [ ]b) Cardiac or respiratory monitoring beyond the scope (eg, over 24 hours) of observation care [ ]c) Pulmonary artery catheter monitoring [ ]d) Suspected compartment syndrome(97) (98) [ ]e) Cerebral bleeding, hydrocephalus, or vasospasm monitoring [ ]f) Increased intracranial pressure or cerebral edema monitoring [ ]g) monitoring [ ]XXVIII. Treatment requiring inpatient care; examples include: [ ]a) IV fluid to replace significant ongoing losses (greater than 3 L/m2 per day)(53) [ ]b) High concentration oxygen (greater than 40%)(33)(99)(100) [ ]c) Frequent respiratory therapy (more frequently than every 4 hours) to maintain airflow rates greater than 60% of baseline(33)(99)(100) [ ]d) Epidural analgesia(87) [ ]e) IV anticoagulation, vasoactive, or antiarrhythmic medication(19 )(23) [ ]f) Acute thrombolytics (generally require 24 hours of observation )(101)(102) [ ]XXIX. Emergency procedures needed; examples include: [ ]a) Emergency inpatient surgery [ ]b) Temporary pacemaker placement(103) [ ]c) Chest tube placement with active evacuation (eg, suction, drainage)(104) [ ]d) Emergent cardioversion(105) [ ]e) Emergent cardiac or vascular procedures (eg, cardiac catheterization, angioplasty) (17)(18) [ ]f) Emergent dialysis access placement and institution(10)(106) [ ]g) Emergent pericardiocentesis(107) [ ]h) Emergent plasmapheresis or leukapheresis(83) [ ]i) Emergent tracheostomy The original [employer] content created by [employer] has been revised. The portions of the content which have been revised are identified through the use of italic text or in bold, and [employer] has neither reviewed nor approved the modified material. All other unmodified content is copyright [employer]. Please see references footnoted in the original [employer] edition 2016 MAU WHITE Jun 09, 2017 02:23
[2017-06-09] MEDS: IV NORMAL SALINE 1,000ML 1,000 ML IV SCH (03:09)
[2017-06-09 05:00] VITALS: BP 118/68
[2017-06-09 06:04] LABS: CALCIUM 7.7 mg/dL (8.5-10.1); CREATININE 0.6 mg/dL (0.6-1.0); GFR 120.8; MAGNESIUM 1.4 mg/dL (1.8-2.4); POTASSIUM 3.6 mmol/L (3.5-5.1)
[2017-06-09 07:36] VITALS: BP 130/83
[2017-06-09] MEDS: PANTOPRAZOLE 40 MG TABLET. PO SCH (08:11)
[2017-06-09] MEDS: ESCITALOPRAM 10 MG TABLET. PO SCH (08:11)
[2017-06-09] MEDS: METOCLOPRAMIDE 5 MG TABLET PO SCH ×2 (08:11→11:55)
[2017-06-09] MEDS: MAGNESIUM OXIDE 400 MG TABLET PO SCH (08:11)
[2017-06-09] MEDS: INSULIN DETEMIR 300 UNITS/3 ML INSULN.PEN. SQ SCH (08:16)
[2017-06-09] MEDS: INSULIN ASPART 300 UNITS/3 ML INSULN.PEN SQ SCH ×2 (08:24→12:28)
--- NOTE | 2017-06-09 22:54 | PN ---
DATE: 06/08/2017 SUBJECTIVE: The patient was admitted yesterday with yet another episode of DKA with a blood sugar of more than 500, dilutional hyponatremia, acute kidney injury. She was admitted to the ICU, was started on IV fluids and insulin drip. She did well. LABORATORY DATA: This morning, her anion gap has normalized. Blood sugar also has normalized. Her serum sodium back to normal to 138. She developed mild hypokalemia and was treated. Her BUN and creatinine has normalized. Anion gap is down to 9 from 27. PLAN: We will put her back on her Levemir insulin as well as insulin sliding scale and we will monitor her. We will continue to monitor her till tomorrow morning and she is tolerating her food. Blood sugar remained stable, we will discharge her home. ANAYELI FOSS MD DR: JOSÉ/regina JOB#: [id number] / [id number]
--- NOTE | 2017-06-10 02:32 | PN ---
DATE: 06/09/2017 The patient is a 27-year-old female patient who was yet again admitted with another episode of DKA. She was started on IV fluid and insulin drip and as her anion gap was normalized, she was started on her usual regimen. Has had no further episodes of nausea and vomiting. Tolerating her diet very well. Her blood sugars much better controlled. ____ discussion regarding owning her problem and taking her medications properly. I am not sure it is going to happen or not given her history of numerous admissions and DKA. PHYSICAL EXAMINATION: GENERAL: In any case, when I saw her this afternoon, she was sitting comfortably in her bed in no apparent distress, slightly pale, but no jaundice, cyanosis, or thyromegaly. No jugular venous distension. No limb edema. VITAL SIGNS: Her heart rate was 74, blood pressure was 118/68, temperature was 98.1, respiratory rate was 16, and oxygen saturation was 100% on room air. HEAD, EYES, EARS, NOSE, AND THROAT: Showed normocephalic, atraumatic. NECK: Supple. HEART: Showed normal first and second heart sounds with no gallop, rub or murmur. CHEST: Clear to auscultation. No crepitation or rhonchi. ABDOMEN: Slightly distended, soft, nontender. NEUROLOGIC: She is awake, alert, responding appropriately. Cranial nerves intact. She moves extremities, ambulates without assistance or assistive devices. Her intake over the last 24 hours was 9454, output was 1500. LABORATORY DATA: As of this morning; her white cell count was 6300, hemoglobin 10, hematocrit 30, MCV 86, and platelet count 261,000. Her serum sodium was 143, potassium 3.6, chloride 110, bicarbonate 26, anion gap 7, BUN 6, creatinine 0.6, estimated GFR was 120 mL per minute. Her glucose 149, calcium was 7.7, magnesium was 1.4. FINAL DISCHARGE DIAGNOSES: 1. Diabetic ketoacidosis. 2. Dilutional hyponatremia, resolved. 3. Acute kidney injury, resolved. 4. Chronic hypomagnesemia, for which she is on magnesium oxide. 5. Diabetic gastroparesis. 6. Amphetamine abuse. ANAYELI FOSS MD DR: JOSÉ/regina JOB#: [id number] / [id number]
[2017-06-10] MEDS ORDERED: ONDA4TAB10 SL (20:56)
[2017-06-13] MEDS ORDERED: DICY20TA3 PO (10:13)
[2017-06-13] MEDS ORDERED: BUPR-192 PO (10:13)
== END 2017-06-09 13:42 | disposition home or self-care (01) | DRG 638 ==
LOC: ER 15:07 → ICU 16:41
PROVIDERS: ADMIT Internal Medicine; ATTEND Internal Medicine
DX: E10.10 Type 1 diabetes mellitus with ketoacidosis without coma (principal); E87.1 Hypo-osmolality and hyponatremia; N17.9 Acute kidney failure, unspecified; E10.43 Type 1 diabetes mellitus with diabetic autonomic (poly)neuropathy; E86.0 Dehydration; K31.84 Gastroparesis; E83.42 Hypomagnesemia; F15.10 Other stimulant abuse, uncomplicated; F17.210 Nicotine dependence, cigarettes, uncomplicated; Z88.8 Allergy status to other drugs, medicaments and biological substances; Z91.041 Radiographic dye allergy status; E87.6 Hypokalemia
CPT/HCPCS: 36415; 80048; 81001; 82947; 83735; 85027; 87641; 96361; 96374; 96375; G0481; J1815; J1885; J2405; J3475; J3480; J8597; 99285-25; J7030

== ENCOUNTER 2017-06-10 18:08 | Emergency (ER) | payer BC ==
[~2017-06-10] VITALS: Ht 170.2 cm; Wt 61.4 kg
[2017-06-10 18:20] VITALS: BP 130/87
[2017-06-10 19:27] LABS: BASO % 1 % (0-3); EOS # 0.1 x10^3/uL (0.0-0.7); EOS % 2 % (0-3); HEMATOCRIT 36.7 % (36.0-47.0); HEMOGLOBIN 12.3 g/dL (12.0-15.5); LYMPH # 1.9 x10^3/uL (1.0-4.8); LYMPH % 42 % (24-48); MEAN CORPUSCULAR HEMOGLOBIN 29 pg (25-35); MEAN CORPUSCULAR HGB CONC 34 g/dL (31-37); MEAN CORPUSCULAR VOLUME 86 fL (79-100); MONO # 0.4 x10^3/uL (0.0-1.1); MONO % 8 % (0-9); NEUT # 2.2 x10^3uL (1.8-7.7); NEUT % 48 % (31-73); PLATELET COUNT 276 x10^3/uL (140-400); RED BLOOD COUNT 4.27 x10^6/uL (3.50-5.40); RED CELL DISTRIBUTION WIDTH 16.4 % (11.5-14.5); WHITE BLOOD COUNT 4.7 x10^3/uL (4.0-11.0)
--- NOTE | 2017-06-10 19:27 | RAD ---
Abdominal and Pelvis CT, Without Contrast: History: Left lower quadrant abdominal pain with nausea Comparison: November 25 2016. Procedure: Axial images are obtained of the abdomen and pelvis, without IV or oral contrast. CT Abdomen without Contrast: Findings: Evaluation of solid organs is limited without contrast. Evaluation of stomach and bowel is limited without oral contrast. Liver: Normal. Spleen: Normal. Pancreas: Normal. Adrenal Glands: Normal. Kidneys: Lobulation of the lower pole of the left kidney was seen previously is likely scar. There is no free air or free fluid. There is no lymphadenopathy. Impression: Please see CT Pelvis without Contrast. End Impression. CT Pelvis without Contrast: Findings: The urinary bladder is collapsed and not well evaluated. There is a trace of free fluid. This is likely physiologic. There is no lymphadenopathy. There is no pericolonic inflammation identified. The appendix is normal. Impression: No evidence of urolithiasis or obstructive uropathy. No acute findings. This interpretation assumes the patient is not . End impression PQRS Compliance Statement: One or more of the following individualized dose reduction techniques were utilized for this examination: 1. Automated exposure control 2. Adjustment of the mA and/or kV according to patient size 3. Use of iterative reconstruction technique Electronically signed by: Compa Meier III, MD (06/10/2017 7:24 PM) [facility]
[2017-06-10] MEDS ORDERED: ONDANSETRON PF 4 MG/2 ML VIAL. IV ONE (19:30)
[2017-06-10] MEDS ORDERED: IV NORMAL SALINE 1,000ML 1,000 ML IV ONE (19:30)
[2017-06-10] MEDS ORDERED: KETOROLAC 30 MG/ML VIAL. IV ONE (19:30)
[2017-06-10 19:32] LABS: ALBUMIN 3.5 g/dL (3.4-5.0); CALCIUM 8.8 mg/dL (8.5-10.1); CREATININE 0.8 mg/dL (0.6-1.0); GFR 86.7; TOTAL BILIRUBIN 0.2 mg/dL (0.2-1.0)
[2017-06-10 19:34] LABS: BACTERIA,URINE 0 /HPF (0-FEW); BILIRUBIN,URINE NEG (NEG); CLARITY,URINE CLEAR; COLOR,URINE YELLOW; GLUCOSE,URINE 500 mg/dL (NEG); NITRITE,URINE NEG (NEG); RBC,URINE 0 /HPF (0-2); SQUAMOUS EPITHELIAL CELL,UR OCC /LPF; UROBILINOGEN,URINE 0.2 mg/dL (0.2 mg/dL)
[2017-06-10 20:04] LABS: U PREG PATIENT NEGATIVE (NEG)
[2017-06-10] MEDS ORDERED: ONDA4TAB10 SL (20:56)
--- NOTE | 2017-06-10 20:56 | PHYS DOC ---
Past History Past Medical History: Diabetes Additional Past Medical Histor: pt reports several admissions for "high blood sugar" Past Surgical History: No Surgical History Smoking: Less than 1pk/day Alcohol Use: None Drug Use: None Adult General Chief Complaint Chief Complaint: ABDOMINAL PAIN HPI HPI Patient is a 27-year-old female who presents to the ER today complaining of abdominal pain in the left lower quadrant. Patient has a history significant for diabetes and gastroparesis. Patient has had multiple episodes of DKA in the past. Patient had a chest tube secondary to a pneumothorax that developed secondary to line placement in the past. Patient is also had an infected Port-A- Cath in the left side. Patient has a liver longer kidney problems. Patient has any hypertension. Patient reports she does occasionally smoke no alcohol or drugs. Patient reports her last menstrual period was back in March. Patient has a dysuria frequency urgency fevers shakes chills. Patient reports she's had 4 episodes of emesis today. Patient has any diarrhea. Patient has any vaginal discharge or vaginal bleeding. Patient's physical exam was significant for tenderness to palpation to her left lower quadrant which was greater than her suprapubic region which is greater than her right lower quadrant. Patient no abdominal tenderness in the upper abdomen. Patient's abdomen was otherwise soft nondistended no rebound or guarding. There was no evidence of any acute surgical abdomen. Patient NABS. Patient's ER workup was significant for normal labs. Patient's blood sugar was slightly elevated however she has been given IV fluids and patient reports that she'll be able take her own insulin at home in order to manage her elevated blood sugar. Patient has no anion gap. Patient is not acidotic. Patient has no ketones in her urine. Patient's UA did not reveal any infection. Patient is CT scan of her abdomen and pelvis which in no acute pathology. Patient has been given IV fluids in the ED and pain management and he reports he feels much improved while she has been here. Assessment and plan this is a 27-year-old female who presents here today secondary to left lower quadrant abdominal pain. Patient has a history significant for diabetes with multiple episodes of DKA in the past. Patient is clinically hemodynamically stable. Patient has had a workup in the ER that has been unremarkable without any evidence of any acute pathology that would require any further inpatient evaluation or management. Patient will be discharged home with antiemetics and will be instructed to follow-up with her primary care doctor on Monday. Review of Systems Review of Systems Constitutional: Denies fever or chills [] Eyes: Denies change in visual acuity, redness, or eye pain [] HENT: Denies nasal congestion or sore throat [] All other review systems are negative except as documented in the history of present illness portion. Current Medications Current Medications Current Medications Medications (Trade) Dose Ordered Sig/Chevy Start Time Stop Time Status Last Admin Dose Admin Ketorolac Tromethamine (Toradol) 30 mg 1X ONCE 06/10/17 19:30 06/10/17 19:31 DC 06/10/17 19:30 30 MG Ondansetron HCl (Zofran) 4 mg 1X ONCE 06/10/17 19:30 06/10/17 19:31 DC 06/10/17 19:30 4 MG Sodium Chloride 1,000 ml @ 1,000 mls/hr 1X ONCE 06/10/17 19:30 06/10/17 20:29 DC 06/10/17 19:30 1,000 MLS/HR Allergies Allergies Allergies Coded Allergies Type Severity Reaction Last Updated Verified acetaminophen Allergy Intermediate HIVES 05/20/17 Yes adhesive tape Allergy Intermediate 05/20/17 Yes I S O L A T I O N *CONTACT* Allergy Unknown 05/20/17 Yes Physical Exam Physical Exam Constitutional: Denies fever or chills [] Eyes: Denies change in visual acuity, redness, or eye pain [] HENT: Denies nasal congestion or sore throat [] All other review systems are negative except as documented in the history of present illness portion. Constitutional: Well developed, well nourished, no acute distress, non-toxic appearance. [] HENT: Normocephalic, atraumatic, bilateral external ears normal, oropharynx moist, no oral exudates, nose normal. [] Eyes: PERRLA, EOMI, conjunctiva normal, no discharge. [] Neck: Normal range of motion, no tenderness, supple, no stridor. [] Cardiovascular:Heart rate regular rhythm, Lungs & Thorax: Bilateral breath sounds clear to auscultation [] Abdomen: Bowel sounds normal, soft, no masses, no pulsatile masses. [] Skin: Warm, dry, no erythema, no rash. [] Back: No tenderness, no CVA tenderness. [] Extremities: No tenderness, no cyanosis, no clubbing, ROM intact, no edema. [] Neurologic: Alert and oriented X 3, normal motor function, normal sensory function, no focal deficits noted. [] Psychologic: Affect normal, judgement normal, mood normal. [] Current Patient Data Vital Signs Vital Signs Date Time Temp Pulse Resp B/P (MAP) Pulse Ox O2 Delivery O2 Flow Rate FiO2 06/10/17 18:20 98.0 99 16 95 Room Air Lab Results Laboratory Tests Test 06/10/17 18:38 06/10/17 18:55 06/10/17 19:57 Glucose (Fingerstick) 344 mg/dL (70-99) H White Blood Count 4.7 x10^3/uL (4.0-11.0) Red Blood Count 4.27 x10^6/uL (3.50-5.40) Hemoglobin 12.3 g/dL (12.0-15.5) Hematocrit 36.7 % (36.0-47.0) Mean Corpuscular Volume 86 fL (79-100) Mean Corpuscular Hemoglobin 29 pg (25-35) Mean Corpuscular Hemoglobin Concent 34 g/dL (31-37) Red Cell Distribution Width 16.4 % (11.5-14.5) H Platelet Count 276 x10^3/uL (140-400) Neutrophils (%) (Auto) 48 % (31-73) Lymphocytes (%) (Auto) 42 % (24-48) Monocytes (%) (Auto) 8 % (0-9) Eosinophils (%) (Auto) 2 % (0-3) Basophils (%) (Auto) 1 % (0-3) Neutrophils # (Auto) 2.2 x10^3uL (1.8-7.7) Lymphocytes # (Auto) 1.9 x10^3/uL (1.0-4.8) Monocytes # (Auto) 0.4 x10^3/uL (0.0-1.1) Eosinophils # (Auto) 0.1 x10^3/uL (0.0-0.7) Basophils # (Auto) 0.0 x10^3/uL (0.0-0.2) Urine Collection Type Unknown Urine Color Yellow Urine Clarity Clear Urine pH 8.5 Urine Specific [place] 1.015 Urine Protein Neg (NEG-TRACE) Urine Glucose (UA) 500 mg/dL (NEG) Urine Ketones (Stick) Neg mg/dL (NEG) Urine Blood Neg (NEG) Urine Nitrite Neg (NEG) Urine Bilirubin Neg (NEG) Urine Urobilinogen Dipstick 0.2 mg/dL (0.2 mg/dL) Urine Leukocyte Esterase Neg (NEG) Urine RBC 0 /HPF (0-2) Urine WBC 1-4 /HPF (0-4) Urine Squamous Epithelial Cells Occ /LPF Urine Transitional Epithelial Cells Occ /LPF Urine Renal Epithelial Cells Occ /LPF Urine Bacteria 0 /HPF (0-FEW) Urine Mucus Slight /LPF Sodium Level 135 mmol/L (136-145) L Potassium Level 4.0 mmol/L (3.5-5.1) Chloride Level 96 mmol/L (98-107) L Carbon Dioxide Level 30 mmol/L (21-32) Anion Gap 9 (6-14) Blood Urea Nitrogen 19 mg/dL (7-20) Creatinine 0.8 mg/dL (0.6-1.0) Estimated GFR (Cockcroft-Gault) 86.7 BUN/Creatinine Ratio 24 (6-20) H Glucose Level 352 mg/dL (70-99) H Calcium Level 8.8 mg/dL (8.5-10.1) Total Bilirubin 0.2 mg/dL (0.2-1.0) Aspartate Amino Transferase (AST) 18 U/L (15-37) Alanine Aminotransferase (ALT) 26 U/L (14-59) Alkaline Phosphatase 106 U/L (46-116) Total Protein 7.0 g/dL (6.4-8.2) Albumin 3.5 g/dL (3.4-5.0) Albumin/Globulin Ratio 1.0 (1.0-1.7) Lipase 66 U/L (73-393) L Urine Test Negative (NEG) EKG EKG [] Radiology/Procedures Radiology/Procedures [] Course & Med Decision Making Course & Med Decision Making Pertinent Labs and Imaging studies reviewed. (See chart for details) [] Dragon Disclaimer Dragon Disclaimer This chart was dictated in whole or in part using Voice Recognition software in a busy, high-work load, and often noisy Emergency Department environment. It may contain unintended and wholly unrecognized errors or omissions. Departure Departure: Impression: Primary Impression: Abdominal pain Disposition: 01 HOME, SELF-CARE Condition: IMPROVED Referrals: DANIAL VINCENT (PCP) Patient Instructions: Abdominal Pain (Nonspecific) Scripts Ondansetron (ZOFRAN ODT) 4 Mg Tab.rapdis 1 TAB SL Q8HRS for NAUSEA, #15 TAB Prov: SAMAN BHATTI MD 06/10/17 SAMAN BHATTI MD Jun 10, 2017 20:56
[2017-06-13] MEDS ORDERED: DICY20TA3 PO (10:13)
[2017-06-13] MEDS ORDERED: BUPR-192 PO (10:13)
== END 2017-06-10 21:15 | disposition home or self-care (01) ==
LOC: ER 18:08
DX: R10.32 Left lower quadrant pain (principal); E13.10 Other specified diabetes mellitus with ketoacidosis without coma; I10 Essential (primary) hypertension; F17.200 Nicotine dependence, unspecified, uncomplicated; Z79.4 Long term (current) use of insulin; Z88.8 Allergy status to other drugs, medicaments and biological substances; Z88.6 Allergy status to analgesic agent; Z91.041 Radiographic dye allergy status
CPT/HCPCS: 36415; 74176; 80053; 81001; 81025; 82947; 83690; 85027; 96361; 96374; 96375; 99285; J1885; J2405; J7030

== ENCOUNTER 2017-06-11 10:58 | Emergency (ER) | payer BC ==
[2017-06-11 11:29] LABS: BASO # 0.1 x10^3/uL (0.0-0.2); BASO % 2 % (0-3); EOS # 0.1 x10^3/uL (0.0-0.7); EOS % 2 % (0-3); HEMATOCRIT 38.1 % (36.0-47.0); HEMOGLOBIN 12.6 g/dL (12.0-15.5); LYMPH % 42 % (24-48); MEAN CORPUSCULAR HEMOGLOBIN 29 pg (25-35); MEAN CORPUSCULAR HGB CONC 33 g/dL (31-37); MEAN CORPUSCULAR VOLUME 87 fL (79-100); MONO # 0.4 x10^3/uL (0.0-1.1); MONO % 8 % (0-9); NEUT # 2.3 x10^3uL (1.8-7.7); NEUT % 46 % (31-73); PLATELET COUNT 273 x10^3/uL (140-400); RED BLOOD COUNT 4.36 x10^6/uL (3.50-5.40); RED CELL DISTRIBUTION WIDTH 16.4 % (11.5-14.5); WHITE BLOOD COUNT 4.9 x10^3/uL (4.0-11.0)
[2017-06-11] MEDS ORDERED: IV NORMAL SALINE 1,000ML 1,000 ML IV SCH (11:30)
[2017-06-11] MEDS ORDERED: diphenhydrAMINE 50 MG/ML VIAL IVP ONE (11:30)
[2017-06-11] MEDS ORDERED: METOCLOPRAMIDE HCL 10 MG/2 ML VIAL. IV ONE (11:30)
[2017-06-11 11:45] LABS: ALBUMIN 3.7 g/dL (3.4-5.0); CREATININE 0.8 mg/dL (0.6-1.0); GFR 86.7; POTASSIUM 4.9 mmol/L (3.5-5.1); TOTAL BILIRUBIN 0.6 mg/dL (0.2-1.0); TOTAL PROTEIN 7.4 g/dL (6.4-8.2)
[2017-06-11] MEDS ORDERED: fentaNYL PF 100 MCG/2 ML VIAL IV ONE (12:00)
[2017-06-11 12:08] VITALS: BP 118/73
--- NOTE | 2017-06-11 12:24 | PHYS DOC ---
Past History Past Medical History: Diabetes Additional Past Medical Histor: pt reports several admissions for "high blood sugar" Past Surgical History: No Surgical History Smoking: Less than 1pk/day Alcohol Use: None Drug Use: None Adult General Chief Complaint Chief Complaint: ABDOMINAL PAIN HPI HPI Patient is a 27-year-old female with type 1 diabetes who frequently visits the ED with nausea and vomiting, abdominal pain, diabetes out of control, and sometimes DKA, who presents today with abdominal pain, nausea and vomiting. Patient was recently hospitalized overnight with the same. She was seen again last night for the same and was treated with Zofran and IV fluids. This morning she woke up with abdominal pain and she has vomited twice. Patient's mom brought her in, stating "we aren't going to do this all day long today". Mom states that they do have an appointment tomorrow to meet with someone in administration to see how else they can help the patient since she does have frequent ED visits and admissions for these problems. Last time her blood sugar was checked was about midnight last night and it read as high. She was given her nighttime insulin dose at this time. Today she has not had anything to eat. She has had a little bit of Pedialyte which came up. Review of Systems Review of Systems Constitutional: Denies fever or chills [] HENT: Denies nasal congestion or sore throat [] Respiratory: Denies cough or shortness of breath [] Cardiovascular: Denies chest pain GI: As in history of present illness : Denies dysuria or hematuria [] Musculoskeletal: Denies back pain or joint pain [] Integument: Denies rash or skin lesions [] Neurologic: Denies headache, focal weakness or sensory changes [] Current Medications Current Medications Current Medications Medications (Trade) Dose Ordered Sig/Chevy Start Time Stop Time Status Last Admin Dose Admin Diphenhydramine HCl (Benadryl) 25 mg 1X ONCE 06/11/17 11:30 06/11/17 11:31 DC 06/11/17 11:29 25 MG Fentanyl Citrate (Fentanyl 2ml Vial) 75 mcg 1X ONCE 06/11/17 12:00 06/11/17 12:01 DC 06/11/17 11:42 75 MCG Metoclopramide HCl (Reglan) 10 mg 1X ONCE 06/11/17 11:30 06/11/17 11:31 DC 06/11/17 11:25 10 MG Sodium Chloride 1,000 ml @ 1,000 mls/hr Q1H 06/11/17 11:30 06/11/17 12:29 06/11/17 11:25 1,000 MLS/HR Allergies Allergies Allergies Coded Allergies Type Severity Reaction Last Updated Verified acetaminophen Allergy Intermediate HIVES 05/20/17 Yes adhesive tape Allergy Intermediate 05/20/17 Yes I S O L A T I O N *CONTACT* Allergy Unknown 05/20/17 Yes Physical Exam Physical Exam Constitutional: Alert, mentating normally, thin, having dry heaves and not bringing up anything HENT: Normocephalic, atraumatic, bilateral external ears normal, nose normal. [ ] Eyes: conjunctiva normal, no discharge. [] Neck: Normal range of motion, no stridor. [] Cardiovascular:Heart rate regular rhythm, no murmur [] Lungs & Thorax: Bilateral breath sounds clear to auscultation [] Abdomen: Bowel sounds normal, soft, nondistended, mildly tender to palpation generalized, no rebound or guarding Skin: Warm, dry, no erythema, no rash. [] Extremities: No tenderness, no cyanosis, no clubbing, ROM intact, no edema. [] Neurologic: Alert and oriented X 3, normal motor function, normal sensory function, no focal deficits noted. [] Current Patient Data Vital Signs Vital Signs Date Time Temp Pulse Resp B/P (MAP) Pulse Ox O2 Delivery O2 Flow Rate FiO2 06/11/17 11:03 98.3 85 18 99 Room Air Lab Results Laboratory Tests Test 06/11/17 11:15 White Blood Count 4.9 x10^3/uL (4.0-11.0) Red Blood Count 4.36 x10^6/uL (3.50-5.40) Hemoglobin 12.6 g/dL (12.0-15.5) Hematocrit 38.1 % (36.0-47.0) Mean Corpuscular Volume 87 fL (79-100) Mean Corpuscular Hemoglobin 29 pg (25-35) Mean Corpuscular Hemoglobin Concent 33 g/dL (31-37) Red Cell Distribution Width 16.4 % (11.5-14.5) H Platelet Count 273 x10^3/uL (140-400) Neutrophils (%) (Auto) 46 % (31-73) Lymphocytes (%) (Auto) 42 % (24-48) Monocytes (%) (Auto) 8 % (0-9) Eosinophils (%) (Auto) 2 % (0-3) Basophils (%) (Auto) 2 % (0-3) Neutrophils # (Auto) 2.3 x10^3uL (1.8-7.7) Lymphocytes # (Auto) 2.0 x10^3/uL (1.0-4.8) Monocytes # (Auto) 0.4 x10^3/uL (0.0-1.1) Eosinophils # (Auto) 0.1 x10^3/uL (0.0-0.7) Basophils # (Auto) 0.1 x10^3/uL (0.0-0.2) Sodium Level 130 mmol/L (136-145) L Potassium Level 4.9 mmol/L (3.5-5.1) Chloride Level 94 mmol/L (98-107) L Carbon Dioxide Level 29 mmol/L (21-32) Anion Gap 7 (6-14) Blood Urea Nitrogen 17 mg/dL (7-20) Creatinine 0.8 mg/dL (0.6-1.0) Estimated GFR (Cockcroft-Gault) 86.7 BUN/Creatinine Ratio 21 (6-20) H Glucose Level 468 mg/dL (70-99) H Calcium Level 9.0 mg/dL (8.5-10.1) Total Bilirubin 0.6 mg/dL (0.2-1.0) # Aspartate Amino Transferase (AST) 25 U/L (15-37) Alanine Aminotransferase (ALT) 27 U/L (14-59) Alkaline Phosphatase 94 U/L (46-116) Total Protein 7.4 g/dL (6.4-8.2) Albumin 3.7 g/dL (3.4-5.0) Albumin/Globulin Ratio 1.0 (1.0-1.7) Lipase 55 U/L (73-393) L EKG EKG [] Radiology/Procedures Radiology/Procedures [] Course & Med Decision Making Course & Med Decision Making Pertinent Labs and Imaging studies reviewed. (See chart for details) Labs remarkable only for elevated blood sugar at 468. Patient states per her sliding scale she would ordinarily take 10 units of insulin. Since she has not had anything to eat, and I'm not sure when she will have anything of substance, we discussed decreasing that slightly and she was given 8 units. Patient was given a liter of IV fluids. She was given IV Reglan and Benadryl which stopped her dry heaves and nausea. She was given a dose of IV fentanyl which helped her abdominal pain. I rechecked the patient and talked with the patient and her mother. She is not in DKA at this time. She does not appear seriously dehydrated. I believe she is stable for discharge. We discussed home use of Reglan, which she does have at home, and Benadryl for her symptoms. They are going to give that a try. [] Dragon Disclaimer Dragon Disclaimer This chart was dictated in whole or in part using Voice Recognition software in a busy, high-work load, and often noisy Emergency Department environment. It may contain unintended and wholly unrecognized errors or omissions. Departure Departure: Impression: Primary Impression: Nausea & vomiting Additional Impressions: Abdominal pain Hyperglycemia Disposition: 01 HOME, SELF-CARE Condition: IMPROVED Referrals: DANIAL VINCENT (PCP) Patient Instructions: Nausea and Vomiting, Ulta-zh-Fivo Additional Instructions: As we discussed, you were given IV Reglan and Benadryl in the emergency department for your nausea. You may take the oral versions of these medicines at home. Take a dose every 8 hours. You may combine this with tramadol that you have been prescribed for abdominal pain as needed, but we hope that by managing your stomach better, you may not have as much pain. Try to get something with a longer acting carbs and protein into your system like PEDIA sure, ensure, or boost. Your blood sugar was 468 and you were given 8 units of regular insulin. Follow your usual insulin regimen. Problem Qualifiers HANNAH ANTUNEZ MD Jun 11, 2017 12:24
[2017-06-11] MEDS ORDERED: INSULIN REGULAR 100 UNIT/ML 10ML VIAL. IV ONE ×2 (12:45→13:00)
[2017-06-13] MEDS ORDERED: BUPR-192 PO (10:13)
[2017-06-13] MEDS ORDERED: DICY20TA3 PO (10:13)
== END 2017-06-11 12:33 | disposition home or self-care (01) ==
LOC: ER 10:58
DX: E10.65 Type 1 diabetes mellitus with hyperglycemia (principal); E13.10 Other specified diabetes mellitus with ketoacidosis without coma; F17.200 Nicotine dependence, unspecified, uncomplicated; Z79.4 Long term (current) use of insulin; Z88.8 Allergy status to other drugs, medicaments and biological substances; Z88.6 Allergy status to analgesic agent; Z91.041 Radiographic dye allergy status
CPT/HCPCS: 36415; 80053; 83690; 85027; 96361; 96374; 96375; 99284; J1200; J1815; J2765; J3010; J7030

== ENCOUNTER 2017-06-12 11:02 | Observation (INO) | payer BC ==
[~2017-06-12] VITALS: Ht 170.2 cm; Wt 61.2 kg
[2017-06-12] MEDS ORDERED: IV NORMAL SALINE 1,000ML 1,000 ML IV SCH (11:14)
[2017-06-12] MEDS ORDERED: ONDANSETRON PF 4 MG/2 ML VIAL. IV ONE (11:15)
[2017-06-12] MEDS ORDERED: METOCLOPRAMIDE HCL 10 MG/2 ML VIAL. ONE (11:34)
[2017-06-12] MEDS ORDERED: diphenhydrAMINE 50 MG/ML VIAL ONE (11:34)
[2017-06-12 11:57] LABS: BASO # 0.1 x10^3/uL (0.0-0.2); BASO % 2 % (0-3); EOS # 0.1 x10^3/uL (0.0-0.7); EOS % 1 % (0-3); HEMATOCRIT 39.2 % (36.0-47.0); HEMOGLOBIN 13.1 g/dL (12.0-15.5); LYMPH # 1.9 x10^3/uL (1.0-4.8); LYMPH % 32 % (24-48); MEAN CORPUSCULAR HEMOGLOBIN 29 pg (25-35); MEAN CORPUSCULAR HGB CONC 33 g/dL (31-37); MEAN CORPUSCULAR VOLUME 87 fL (79-100); MONO # 0.6 x10^3/uL (0.0-1.1); MONO % 9 % (0-9); NEUT # 3.5 x10^3uL (1.8-7.7); NEUT % 56 % (31-73); PLATELET COUNT 289 x10^3/uL (140-400); RED BLOOD COUNT 4.49 x10^6/uL (3.50-5.40); RED CELL DISTRIBUTION WIDTH 16.1 % (11.5-14.5); WHITE BLOOD COUNT 6.2 x10^3/uL (4.0-11.0)
[2017-06-12] MEDS ORDERED: diphenhydrAMINE 50 MG/ML VIAL IVP ONE (12:00)
[2017-06-12] MEDS ORDERED: METOCLOPRAMIDE HCL 10 MG/2 ML VIAL. IV ONE (12:00)
[2017-06-12 12:01] LABS: CALCIUM 9.3 mg/dL (8.5-10.1); CREATININE 0.9 mg/dL (0.6-1.0); GFR 75.7; POTASSIUM 4.7 mmol/L (3.5-5.1); TOTAL BILIRUBIN 0.6 mg/dL (0.2-1.0)
--- NOTE | 2017-06-12 12:02 | RAD ---
PORTABLE CHEST 1V Clinical History: dka Technique: AP view of the chest was obtained at 06/12/2017 1:14 PM. Comparison: Acute abdomen series dated 03/24/2017. Findings: Normal lung volume. No focal consolidation. Normal pulmonary vasculature. No pleural effusion or pneumothorax. The cardiomediastinal silhouette is normal. The great vessels of the thorax are normal. No acute osseous abnormality. Impression: No acute cardiopulmonary process.
[2017-06-12 12:03] LABS: AMPHETAMINE/METHAMPHETAMINE NEG (NEG); BARBITURATES NEG (NEG); BENZODIAZEPINES NEG (NEG); CANNABINOIDS NEG (NEG); COCAINE NEG (NEG); METHADONE NEG (NEG); OPIATES NEG (NEG); PHENCYCLIDINE NEG (NEG)
[2017-06-12 12:07] LABS: BILIRUBIN,URINE NEG (NEG); CLARITY,URINE CLEAR; COLOR,URINE STRAW; GLUCOSE,URINE 500 mg/dL (NEG); NITRITE,URINE NEG (NEG); UROBILINOGEN,URINE 0.2 mg/dL (0.2 mg/dL)
[2017-06-12 12:08] LABS: BACTERIA,URINE FEW /HPF (0-FEW); RBC,URINE OCC /HPF (0-2); SQUAMOUS EPITHELIAL CELL,UR MOD /LPF; WBC,URINE OCC /HPF (0-4)
[2017-06-12] MEDS: IV NORMAL SALINE 1,000ML 1,000 ML IV SCH ×5 (12:12→22:25)
--- NOTE | 2017-06-12 12:33 | PHYS DOC ---
General Chief Complaint: NAUSEA/VOMITING/DIARRHEA Stated Complaint: NAUSEA/HIGH BLOOD SUGAR Time Seen by MD: 11:10 Source: patient, old records Exam Limitations: no limitations Problems: History of Present Illness Initial Comments Patient is a 27-year-old female well known to this facility with numerous admissions for DKA brought to the emergency department by her mother with hyperglycemia and vomiting. The patient was seen at this emergency department each of the last 2 day for the same symptoms. Each time she was hyperglycemic but not acidotic, treated symptomatically and discharged home in good condition. The patient states that yesterday after leaving the emergency department and arriving at her house she began vomiting again with elevated blood glucose. She says she's been compliant with meds and ADA diet but that she cannot keep anything down due to nausea and vomiting. She denies any recent methamphetamine use. No chest pain trouble breathing or focal weakness no new symptoms. Timing/Duration: constant Severity: severe Modifying Factors: worse with eating, improves with medication Associated Symptoms: malaise, nausea/vomiting, weakness Allergies: Coded Allergies: acetaminophen (Verified Allergy, Intermediate, HIVES, 05/20/17) "WHEN I HAD MY ANKLE BX THEY GAVE ME TYLENOL AND I GOT HIVES ON MY LEG." adhesive tape (Verified Allergy, Intermediate, 05/20/17) I S O L A T I O N *CONTACT* (Verified Allergy, Unknown, 05/20/17) +MRSA nicole 05-15-17 Past Medical History Medical History: diabetes, other (diabetes, gastroparesis, noncompliance,) Surgical History: noncontributory Social History Smoker: cigarettes Alcohol: occasionally Drugs: other (history of marijuana use and methamphetamine addiction she denies current usage) Review of Systems Constitutional: denies chills, denies diaphoresis, denies fever, malaise Respiratory: denies cough, denies shortness of breath, denies wheezing Cardiovascular: denies chest pain, denies palpitations, denies syncope Gastrointestinal: see HPI, abdominal pain, nausea, vomiting Genitourinary: denies dysuria, denies frequency, denies hematuria Musculoskeletal: denies back pain, denies joint pain, denies neck pain Psychiatric/Neurological: headache, denies numbness, denies paresthesia, denies pre-existing deficit, denies seizure, denies weakness Hematologic/Lymphatic: denies blood clots, denies easy bleeding, denies easy bruising Physical Exam General Appearance: WD/WN, mild distress (vomiting/retching) Eyes: bilateral eye normal inspection, bilateral eye PERRL, bilateral eye EOMI Ear, Nose, Throat: hearing grossly normal, normal ENT inspection (dry mucous membranes), normal pharynx Neck: full range of motion, supple Respiratory: chest non-tender, normal breath sounds, no respiratory distress Cardiovascular: normal peripheral pulses, no edema, tachycardia Gastrointestinal: soft (diffuse tenderness appears localized to the abdominal wall musculature, nondistended with slightly diminished bowel sounds. Negative Boudreaux negative McBurney no rebound guarding or palpable masses) Back: no CVA tenderness, no vertebral tenderness Extremities: non-tender, normal inspection Neurologic/Psychiatric: battery recharger II-XII nml as tested, no motor/sensory deficits, alert, oriented x 3, depressed affect (denies suicidal or homicidal ideations) Skin: pallor (poor skin turgor) Orders, Labs, Meds EKG: sinus tachycardia 103 bpm. Interpreted by me. Chest x-ray unremarkable. Pertinent labs: POC glucose 502, sodium 128, potassium 4.7, CO2 26, anion gap 14 , BUNs 19, creatinine 0.9, serum glucose 496. Urinalysis with greater than 160 ketones, 500 glucose Normal saline bolus is initiated, patient received diphenhydramine 25 mg IV, Reglan 10 mg IV, 14 units of regular insulin IV. I discussed patient's symptoms and results at length. Anion gap is upper limits of normal at 14, patient and her mother would like inpatient treatment as the patient has been here past 2 days treated symptomatically with no real lasting changes. I discussed the patient with Dr. Grigsby who accepts observation admission for intractable nausea and vomiting as well as hyperglycemia. IV fluids will be continued and she'll be put on a sliding scale insulin. She and her mother have a meeting with hospital administration today 5:30 PM to discuss the patient's recurrent admissions. Departure Disposition: ADMITTED INPATIENT Diagnosis: intractable nausea and vomiting, hyperglycemia Condition: STABLE Additional Instructions: Observation/telemetry admission Dr. Grigsby is accepting physician. CEDRIC MELENDEZ DO Jun 12, 2017 12:33
[2017-06-12] MEDS ORDERED: INSULIN REGULAR 100 UNIT/ML 10ML VIAL. IV ONE (12:40)
[2017-06-12] MEDS ORDERED: ONDANSETRON PF 4 MG/2 ML VIAL. IV PRN ×2 (12:45→14:45)
[2017-06-12] MEDS ORDERED: DICYCLOMINE 20 MG/2 ML AMPUL. IM ONE (13:00)
[2017-06-12 14:03] VITALS: BP 124/71
[2017-06-12] MEDS ORDERED: PROMETHAZINE 25 MG in IV NORMAL SALINE 50ML 50 ML IV PRN (14:45)
[2017-06-12] MEDS ORDERED: diphenhydrAMINE 50 MG/ML VIAL IV PRN (14:45)
[2017-06-12] MEDS ORDERED: METOCLOPRAMIDE HCL 10 MG/2 ML VIAL. IV PRN (14:45)
[2017-06-12 16:21] VITALS: BP 120/82
--- NOTE | 2017-06-12 16:42 | EKG ---
[address] [address] Test Date: 2017-06-12 Test Time: 11:24:00 Pat Name: CHALO RAYMUNDO Department: Room: Gender: F [employer]: : 1990 Requested By: CEDRIC MELENDEZ Order Number: [id number] Reading MD: Measurements Intervals [place] Rate: 103 P: 59 HI: 134 QRS: 72 QRSD: 76 T: 47 QT: 302 QTc: 397 Interpretive Statements SINUS TACHYCARDIA LEFT ATRIAL ABNORMALITY NON SPECIFIC ST-T ABNORMALITY (ELEVATION) RI6.01 Unconfirmed report No previous ECG available for comparison
[2017-06-12] MEDS ORDERED: KETOROLAC 15 MG/ML VIAL. IV PRN (17:45)
[2017-06-12] MEDS: INSULIN ASPART 300 UNITS/3 ML INSULN.PEN SQ PRN ×2 (18:23→20:14)
[2017-06-12] MEDS: DICYCLOMINE HCL 20 MG TABLET PO SCH ×2 (18:24→20:09)
--- NOTE | 2017-06-12 19:14 | PDOC2 ---
CONSULT Date of Admission DATE: 06/12/17 TIME: 19:00 Reason for Consult: Psychiatric consultation Identifying data: Patient is a 27-year-old female seen in room [address] [place] [address] for a psychiatric consult requested by Dr. Grigsby after the patient was admitted yet again for one of very many hospitalizations for marked elevation of blood sugar consequent to noncompliance off her insulin regimen at home. Patient seen individually in her room discussed with nursing staff reviewed the chart. I seen the patient previously as well and at that time she was found to be depressed started on Lexapro. She said she took it for a month had no effect from it and stopped it but never followed up at the [facility] for outpatient treatment as I had recommended. Chief complaint: "No, I do not check my blood sugars at home. I often forget my medications. The last time he used any methamphetamine was 1 month ago. I get it free from my friend" History of present illness: Patient has a history of anxiety depression and marked noncompliance with her diabetic treatment at home which she lives with her mother. She is been to the emergency room almost every day for the last several days prior to being admitted today due to worsening control of her diabetes. She does admit to insomnia sleep and appetite disturbance mood symptoms but denies any overt psychotic symptoms. She denies thoughts of wanting to hurt herself but certainly noncompliance with treatment has been significant raising the question of passive suicidal ideation. No clear symptoms of bipolar disorder or homicidal ideation. There are undetermined personality factors involved along with a questionable dependent relationship with her mother. Past psychiatric history: Have seen the patient for a psychiatric consult during one of her past admissions and had recommended treatment on Lexapro which she states she took at 10 mg a day for about a month is on no effect and stopped it. She did not follow through outpatient with the [facility] however as was recommended. She does have a history of amphetamine and cannabis abuse. Medical history: Diabetes mellitus with gastroparesis and medication noncompliance. Family history: Noncontributory Social history: Substance use history is noted above. She lives at home with her mother. She last worked over 1 year ago at a [employer] center in [facility]. She is single. Mental status examination: Patient was seen in her room. She is well oriented fairly built quite verbally interactive remembered me from the prior visit quite clearly. She admits to some mood symptoms but a careful review of her history and overall functioning and relationship with her mother seems to indicate additional personality factors as being fairly prominent in her current presentation. Speech is coherent thought processes goal directed. No current psychotic symptoms suicidal or homicidal ideation. She appears somewhat anxious. Memory is intact and well oriented. Speech is coherent thought processes goal directed intellect average insight somewhat limited judgment marginal as noted above. Impression: Major depressive disorder unspecified anxiety disorder unspecified. Personality disorder unspecified. Rest diagnoses mentioned above. Plan: I had a lengthy discussion with the patient. She seems to have failed treatment on Lexapro in the past and we will start her on Wellbutrin XL 150 mg a day in the morning. This should be a stimulating antidepressant and the fact that she's used methamphetamine and states this makes her feel better deliberate runs out of her system might be an indication that she might respond well to the Wellbutrin. She definitely needs to be in ongoing outpatient psychiatric treatment perhaps at the [facility] and have discussed this with the nursing staff. Dr. Grigsby thank you for the opportunity to participate in the patient's care. Will follow with you Current Medications Current Medications Sodium Chloride 1,000 ml @ 1,000 mls/hr Q1H IV Last administered on 06/12/17 11:35; Start 06/12/17 at 11:14; Stop 06/12/17 at 12:13; Status DC Ondansetron HCl (Zofran) 4 mg 1X ONCE IV Last administered on 06/12/17 11:15 ; Start 06/12/17 at 11:15; Stop 06/12/17 at 11:26; Status DC Diphenhydramine HCl (Benadryl) 25 mg 1X ONCE IVP Last administered on 11:40; Start 06/12/17 at 12:00; Stop 06/12/17 at 12:01; Status DC Metoclopramide HCl (Reglan) 10 mg 1X ONCE IV Last administered on 06/12/17 11 :35; Start 06/12/17 at 12:00; Stop 06/12/17 at 12:01; Status DC Diphenhydramine HCl (Benadryl) 50 mg STK-MED ONCE .ROUTE ; Start 06/12/17 at 11: 34; Stop 06/12/17 at 11:35; Status DC Metoclopramide HCl (Reglan) 10 mg STK-MED ONCE .ROUTE ; Start 06/12/17 at 11:34 ; Stop 06/12/17 at 11:35; Status DC Insulin Human Regular (NovoLIN R) 14 unit 1X ONCE IV Last administered on 06/12 12:45; Start 06/12/17 at 12:40; Stop 06/12/17 at 12:41; Status DC Sodium Chloride 1,000 ml @ 1,000 mls/hr Q1H IV Last administered on 06/12/17 13:10; Start 06/12/17 at 12:12; Stop 06/12/17 at 13:11; Status DC Dicyclomine HCl (Bentyl) 10 mg 1X ONCE IM Last administered on 06/12/17 12:45 ; Start 06/12/17 at 13:00; Stop 06/12/17 at 13:01; Status DC Ondansetron HCl (Zofran) 4 mg PRN Q4HRS PRN IV NAUSEA/VOMITING; Start 06/12/17 at 12:45; Stop 06/13/17 at 12:44; Status Cancel Sodium Chloride 1,000 ml @ 200 mls/hr Q5H IV Last administered on 06/12/17 16 :38; Start 06/12/17 at 12:39; Stop 06/13/17 at 12:38 Metoclopramide HCl (Reglan) 10 mg PRN Q6HRS PRN IV NAUSEA/VOMITING; Start 06/12 at 14:45 Promethazine HCl 25 mg/Sodium Chloride 51 ml @ 100 mls/hr PRN Q6HRS PRN IV NAUSEA/VOMITING; Start 06/12/17 at 14:45 Ondansetron HCl (Zofran) 4 mg PRN Q8HRS PRN IV NAUSEA/VOMITING; Start 06/12/17 at 14:45 Diphenhydramine HCl (Benadryl) 12.5 mg PRN Q6HRS PRN IV SEE COMMENTS; Start at 14:45 Insulin Aspart (NovoLOG) 0-9 UNITS PRN Q2HR PRN SQ HYPERGLYCEMIA Last administered on 06/12/17 18:23; Start 06/12/17 at 15:00 Metoclopramide HCl (Reglan) 10 mg QIDACHS PO ; Start 06/12/17 at 21:00 Dicyclomine HCl (Bentyl) 20 mg QIDACHS PO Last administered on 06/12/17t 18:24 ; Start 06/12/17 at 17:30 Ketorolac Tromethamine (Toradol) 15 mg PRN Q6HRS PRN IV PAIN; Start 06/12/17 at 17:45; Stop 06/17/17 at 17:44 Active Scripts Active Zofran Odt (Ondansetron) 4 Mg Tab.rapdis 1 Tab SL Q8HRS Zofran Odt (Ondansetron) 4 Mg Tab.rapdis 1 Tab SL Q8HRS Pantoprazole Sodium 40 Mg Tablet.dr 40 Mg PO DAILYAC Escitalopram Oxalate 5 Mg Tablet 5 Mg PO DAILY Magnesium Oxide 400 Mg Tablet 1 Tab PO TID Metoclopramide Hcl 5 Mg Tablet 10 Mg PO QIDACHS Novolog Flexpen (Insulin Aspart) 100 Unit/1 Ml Insuln.pen 0-9 Unit SQ ACHS FOLLOW SUPPLEMENTAL SCALE GIVEN TO YOU Reported Levemir (Insulin Detemir) 100 Unit/1 Ml Vial 15 Unit SQ BID resume tonight at bedtime Allergies: Coded Allergies: acetaminophen (Verified Allergy, Intermediate, HIVES, 05/20/17) "WHEN I HAD MY ANKLE BX THEY GAVE ME TYLENOL AND I GOT HIVES ON MY LEG." adhesive tape (Verified Allergy, Intermediate, 05/20/17) I S O L A T I O N *CONTACT* (Verified Allergy, Unknown, 05/20/17) +MRSA nares 05-15-17 VITALS Vital Signs Date Time Temp Pulse Resp B/P (MAP) Pulse Ox O2 Delivery O2 Flow Rate FiO2 06/12/17 16:21 98.5 105 20 120/82 (95) 97 Room Air Labs Laboratory Tests Test 06/12/17 11:33 06/12/17 11:37 06/12/17 11:45 06/12/17 11:53 Glucose (Fingerstick) 502 mg/dL (70-99) White Blood Count 6.2 x10^3/uL (4.0-11.0) Red Blood Count 4.49 x10^6/uL (3.50-5.40) Hemoglobin 13.1 g/dL (12.0-15.5) Hematocrit 39.2 % (36.0-47.0) Mean Corpuscular Volume 87 fL (79-100) Mean Corpuscular Hemoglobin 29 pg (25-35) Mean Corpuscular Hemoglobin Concent 33 g/dL (31-37) Red Cell Distribution Width 16.1 % (11.5-14.5) Platelet Count 289 x10^3/uL (140-400) Neutrophils (%) (Auto) 56 % (31-73) Lymphocytes (%) (Auto) 32 % (24-48) Monocytes (%) (Auto) 9 % (0-9) Eosinophils (%) (Auto) 1 % (0-3) Basophils (%) (Auto) 2 % (0-3) Neutrophils # (Auto) 3.5 x10^3uL (1.8-7.7) Lymphocytes # (Auto) 1.9 x10^3/uL (1.0-4.8) Monocytes # (Auto) 0.6 x10^3/uL (0.0-1.1) Eosinophils # (Auto) 0.1 x10^3/uL (0.0-0.7) Basophils # (Auto) 0.1 x10^3/uL (0.0-0.2) Sodium Level 128 mmol/L (136-145) Potassium Level 4.7 mmol/L (3.5-5.1) Chloride Level 88 mmol/L (98-107) Carbon Dioxide Level 26 mmol/L (21-32) Anion Gap 14 (6-14) Blood Urea Nitrogen 19 mg/dL (7-20) Creatinine 0.9 mg/dL (0.6-1.0) Estimated GFR (Cockcroft-Gault) 75.7 BUN/Creatinine Ratio 21 (6-20) Glucose Level 496 mg/dL (70-99) Calcium Level 9.3 mg/dL (8.5-10.1) Total Bilirubin 0.6 mg/dL (0.2-1.0) Aspartate Amino Transf (AST/SGOT) 12 U/L (15-37) Alanine Aminotransferase (ALT/SGPT) 24 U/L (14-59) Alkaline Phosphatase 130 U/L (46-116) Total Protein 8.0 g/dL (6.4-8.2) Albumin 4.0 g/dL (3.4-5.0) Albumin/Globulin Ratio 1.0 (1.0-1.7) Lipase 50 U/L (73-393) Urine Collection Type Unknown Urine Color Straw Urine Clarity Clear Urine pH 5.5 Urine Specific [place] 1.010 Urine Protein Neg (NEG-TRACE) Urine Glucose (UA) 500 mg/dL (NEG) Urine Ketones (Stick) >=160 mg/dL (NEG) Urine Blood Neg (NEG) Urine Nitrite Neg (NEG) Urine Bilirubin Neg (NEG) Urine Urobilinogen Dipstick 0.2 mg/dL (0.2 mg/dL) Urine Leukocyte Esterase Neg (NEG) Urine RBC Occ /HPF (0-2) Urine WBC Occ /HPF (0-4) Urine Squamous Epithelial Cells Mod /LPF Urine Bacteria Few /HPF (0-FEW) Urine Opiates Screen Neg (NEG) Urine Methadone Screen Neg (NEG) Urine Barbiturates Neg (NEG) Urine Phencyclidine Screen Neg (NEG) Urine Amphetamine/Methamphetamine Neg (NEG) Urine Benzodiazepines Screen Neg (NEG) Urine Cocaine Screen Neg (NEG) Urine Cannabinoids Screen Neg (NEG) Urine Ethyl Alcohol Neg (NEG) Bedside Urine HCG, Qualitative hcg negative (Negative) Test 06/12/17 13:55 06/12/17 15:59 06/12/17 18:03 Glucose (Fingerstick) 218 mg/dL (70-99) 330 mg/dL (70-99) 287 mg/dL (70-99) EDITH VALENCIA MD Jun 12, 2017 19:14
--- NOTE | 2017-06-12 19:52 | HP ---
ADMIT DATE: 06/12/2017 REASON FOR ADMISSION: Hyperglycemia, nausea, and vomiting. HISTORY OF PRESENT ILLNESS: This is the 32nd time since 11/20/2016 this 27-year-old with type 1 diabetes has either presented to the Emergency Room or then admitted for hyperglycemia, abdominal pain or DKA. After the nursing supervisors had a long meeting with her mother, she admits to not checking her blood sugars, not eating like she should, refusing to give herself insulin, and making her brother do it and basically bullying her family by refusing to take care of herself. PAST MEDICAL HISTORY: 1. Significant for type 1 diabetes, poorly controlled. 2. Multiple episodes of DKA. 3. Gastroparesis. 4. Hypomagnesemia. 5. Adjustment disorder. 6. Methamphetamine abuse, she uses intermittently. MEDICATIONS: Reviewed and are available on the MAR. SOCIAL HISTORY: She lives at home with her mother. She does not work. Stated uses methamphetamine not on a daily basis, but frequently. Used to smoke. REVIEW OF SYSTEMS: Positive for abdominal pain, vomiting, and blood sugars. PHYSICAL EXAMINATION: VITAL SIGNS: Blood pressure 120/82, pulse 105, respirations 20, temperature 98.5, pulse ox 97% on room air. Height 67 inches, weight 135 pounds. HEENT: Her hearing is normal. Her eyes are clear. Nose was patent. Her throat was clear. NECK: Supple. LUNGS: Clear to auscultation. CARDIOVASCULAR: Regular rhythm and rate. ABDOMEN: Soft and not much ____ tenderness. Bowel sounds are positive. EXTREMITIES: Without edema. LABORATORY DATA: Glucose 502, sodium 128, chloride 88. CBC normal. Drug screen negative. Serum ketones negatives were negative I believe or slight ketones in the urine. ASSESSMENT: 1. Hyperosmolarity hyperglycemia. 2. Hyponatremia. 3. Type 1 diabetes, poor control. 4. Adjustment disorder with depression. 5. Chronic hypomagnesemia. 6. Methamphetamine abuse, drug screen negative today. PLAN: IV fluids, antiemetics, try Bentyl which they stated helped in the Emergency Room and most likely discharge tomorrow. BARRY MORELAND DO DR: DONNA/regina JOB#: [id number] / [id number]
[2017-06-12 19:58] VITALS: BP 112/78
[2017-06-12] MEDS: METOCLOPRAMIDE 10 MG TABLET PO SCH (20:09)
[2017-06-13 03:04] VITALS: BP 151/95
[2017-06-13] MEDS: INSULIN ASPART 300 UNITS/3 ML INSULN.PEN SQ PRN ×3 (03:17→12:00)
--- NOTE | 2017-06-13 05:12 | ACF ---
Admit Criteria Forms Admit Criteria Forms Admit Criteria Forms DIABETES Clinical Indications for Admission to Inpatient Care (Place 'X' for any and all applicable criteria): Admission is indicated by presence of ALL (if I & II) or ANY ONE (if III or IV) of the following (1)(2)(3)(4): [X]I. Diabetes is uncontrolled as indicated by ANY ONE of the following: [ ]a) Diabetic ketoacidosis as indicated by ALL of the following (8): [ ]i) Hyperglycemia (eg, plasma glucose greater than 200 mg/ dL (11.1 mmol/L)) [ ]ii) Acidosis (eg, arterial pH less than 7.30, serum bicarbonate level less than 15 mEq/L (mmol/L)) [ ]iii) Moderate ketonuria or ketonemia [ ]b) Hyperglycemic hyperosmolar state as indicated by ALL of the following(9)(10): [ ]i) Neurologic dysfunction (eg, stupor, coma, hemiparesis , seizure)(13) [ ]ii) Plasma glucose greater than 600 mg/dL (33.3 mmol/L) [ ]iii) Serum osmolality greater than 320 mOsm/kg (mmol/kg) [X]c) Severe signs or symptoms secondary to hyperglycemia indicated by ANY ONE of the following: [ ]i) Altered mental status(10) [ ]ii) Significant hypovolemia or dehydration [X]iii) Intractable nausea or vomiting [ ]iv) Unexplained fever or severe infection [ ]v) Severe electrolyte abnormality (eg, hypokalemia, hyperkalemia, hypernatremia) [X]II. Management at other levels of care (Also use Diabetes: Observation Care as appropriate) is not feasible because of ANY ONE of the following: [X]a) Condition was not adequately corrected with treatment at other levels of care. [ ]b) Treatment at other levels of care is not appropriate because of condition severity (eg, hyperosmolar coma). [ ]III. Contraindications and/or Inappropriate clinical situations for Observational Care in patients with Diabetes, when ANY ONE of the following is required: [ ]a) Patient require specific diagnostic workup or therapeutic intervention 22 [ ]b) Patient with abnormal vital signs or altered mental status 23 [ ]IV. General contraindications and/or Inappropriate clinical situations for Observational Care in patients with Diabetes, when ANY ONE of the following is required: [ ]a) Prediction of prolongation of LOS based on ANY ONE of the following may be considered as a contraindication for observational care 2, 3, 4, 5, 6, 7, 8, 9, 10, 11 [ ]i) Age > 65 yrs. [ ]ii) Patient arriving by ambulance [ ]iii) Patient with high acuity [ ]iv) Patient requiring vital sign monitoring [ ]v) Patient on IV medication [ ]b) Systolic blood pressures 180mmHg 3,12 [ ]c) Patient with altered mental status including delirium and other alteration of consciousness, (3) [ ]d) Patient whose discharge disposition will be to a half-way home or rehabilitation home should not be managed in Emergency Department Observation Unit. CMS rule requires 3 days hospital stay before such placement.3,13 [ ]e) Patient with failure to thrive due to broad array of etiologies 3,16,17 [ ]f) Inability to ambulate 3,14 Extended stay beyond goal length of stay may be needed for(3)(20): [ ]a) Treatment of precipitating causes [ ]b) Development of hypoglycemia [ ]c) Complications of treatment [ ]d) Complications of decompensated diabetes (eg, acute gastric dilatation, persistent metabolic or neurologic derangement) [ ]e) Active Comorbidities [ ]f) Older patients( 65 years or older) The original [employer] content created by [employer] has been revised. The portions of the content which have been revised are identified through the use of italic text or in bold,and [facility] has neither reviewed nor approved the modified material. All other unmodified content is copyright [facility]. Please see references footnoted in the original [facility] edition 2016 MAU WHITE Jun 13, 2017 05:12
[2017-06-13] MEDS: IV NORMAL SALINE 1,000ML 1,000 ML IV SCH (05:15)
[2017-06-13 06:16] LABS: BASO # 0.1 x10^3/uL (0.0-0.2); BASO % 1 % (0-3); EOS # 0.2 x10^3/uL (0.0-0.7); EOS % 4 % (0-3); HEMATOCRIT 31.5 % (36.0-47.0); HEMOGLOBIN 10.7 g/dL (12.0-15.5); LYMPH # 2.7 x10^3/uL (1.0-4.8); LYMPH % 49 % (24-48); MEAN CORPUSCULAR HEMOGLOBIN 29 pg (25-35); MEAN CORPUSCULAR HGB CONC 34 g/dL (31-37); MEAN CORPUSCULAR VOLUME 86 fL (79-100); MONO # 0.5 x10^3/uL (0.0-1.1); MONO % 10 % (0-9); NEUT # 1.9 x10^3uL (1.8-7.7); NEUT % 36 % (31-73); PLATELET COUNT 236 x10^3/uL (140-400); RED BLOOD COUNT 3.67 x10^6/uL (3.50-5.40); RED CELL DISTRIBUTION WIDTH 16.5 % (11.5-14.5); WHITE BLOOD COUNT 5.4 x10^3/uL (4.0-11.0)
[2017-06-13 06:37] LABS: ALBUMIN 2.8 g/dL (3.4-5.0); ALBUMIN/GLOBULIN RATIO 0.9 (1.0-1.7); CALCIUM 8.5 mg/dL (8.5-10.1); CREATININE 0.8 mg/dL (0.6-1.0); GFR 86.7; POTASSIUM 3.7 mmol/L (3.5-5.1); TOTAL BILIRUBIN 0.2 mg/dL (0.2-1.0); TOTAL PROTEIN 5.9 g/dL (6.4-8.2)
[2017-06-13] MEDS ORDERED: PANTOPRAZOLE 40 MG TABLET. PO SCH (07:30)
[2017-06-13] MEDS ORDERED: ONDANSETRON ODT 4 MG TAB.RAPDIS PO PRN (07:45)
[2017-06-13] MEDS: DICYCLOMINE HCL 20 MG TABLET PO SCH ×2 (08:44→11:54)
[2017-06-13] MEDS: METOCLOPRAMIDE 10 MG TABLET PO SCH ×2 (08:45→11:54)
[2017-06-13] MEDS ORDERED: buPROPion XL 150 MG TAB.ER.24H PO SCH (09:00)
[2017-06-13] MEDS ORDERED: INSULIN DETEMIR 300 UNITS/3 ML INSULN.PEN. SQ SCH (09:00)
[2017-06-13] MEDS ORDERED: MAGNESIUM OXIDE 400 MG TABLET PO SCH (09:00)
[2017-06-13] MEDS ORDERED: BUPR-192 PO (10:13)
[2017-06-13] MEDS ORDERED: DICY20TA3 PO (10:13)
[2017-06-13 10:51] VITALS: BP 124/85
[2017-06-13] MEDS ORDERED: METOCLOPRAMIDE 5 MG TABLET PO SCH (11:30)
--- NOTE | 2017-06-13 15:19 | PDOC3 ---
Discharge Summary Visit Information Date of Admission: Jun 12, 2017 Date of Discharge: Jun 13, 2017 Admitting Diagnosis: NAUSEA, VOMITING , HYPERGLYCEMIA Final Diagnosis 1. Hyperosmolarity hyperglycemia. 2. Hyponatremia. 3. Type 1 diabetes, poor control. 4. Adjustment disorder with depression. 5. Chronic hypomagnesemia. 6. Methamphetamine abuse, drug screen negative Problems: Brief Hospital Course Allergies Allergies Coded Allergies Type Severity Reaction Last Updated Verified acetaminophen Allergy Intermediate HIVES 05/20/17 Yes adhesive tape Allergy Intermediate 05/20/17 Yes I S O L A T I O N *CONTACT* Allergy Unknown 05/20/17 Yes Vital Signs Vital Signs Date Time Temp Pulse Resp B/P (MAP) Pulse Ox O2 Delivery O2 Flow Rate FiO2 06/13/17 10:51 98.0 82 20 124/85 (98) 98 Room Air Lab Results Laboratory Tests Test 06/12/17 11:33 06/12/17 11:37 06/12/17 11:45 06/12/17 11:53 Glucose (Fingerstick) 502 mg/dL (70-99) White Blood Count 6.2 x10^3/uL (4.0-11.0) Red Blood Count 4.49 x10^6/uL (3.50-5.40) Hemoglobin 13.1 g/dL (12.0-15.5) Hematocrit 39.2 % (36.0-47.0) Mean Corpuscular Volume 87 fL (79-100) Mean Corpuscular Hemoglobin 29 pg (25-35) Mean Corpuscular Hemoglobin Concent 33 g/dL (31-37) Red Cell Distribution Width 16.1 % (11.5-14.5) Platelet Count 289 x10^3/uL (140-400) Neutrophils (%) (Auto) 56 % (31-73) Lymphocytes (%) (Auto) 32 % (24-48) Monocytes (%) (Auto) 9 % (0-9) Eosinophils (%) (Auto) 1 % (0-3) Basophils (%) (Auto) 2 % (0-3) Neutrophils # (Auto) 3.5 x10^3uL (1.8-7.7) Lymphocytes # (Auto) 1.9 x10^3/uL (1.0-4.8) Monocytes # (Auto) 0.6 x10^3/uL (0.0-1.1) Eosinophils # (Auto) 0.1 x10^3/uL (0.0-0.7) Basophils # (Auto) 0.1 x10^3/uL (0.0-0.2) Sodium Level 128 mmol/L (136-145) Potassium Level 4.7 mmol/L (3.5-5.1) Chloride Level 88 mmol/L (98-107) Carbon Dioxide Level 26 mmol/L (21-32) Anion Gap 14 (6-14) Blood Urea Nitrogen 19 mg/dL (7-20) Creatinine 0.9 mg/dL (0.6-1.0) Estimated GFR (Cockcroft-Gault) 75.7 BUN/Creatinine Ratio 21 (6-20) Glucose Level 496 mg/dL (70-99) Calcium Level 9.3 mg/dL (8.5-10.1) Magnesium Level 1.8 mg/dL (1.8-2.4) Total Bilirubin 0.6 mg/dL (0.2-1.0) Aspartate Amino Transf (AST/SGOT) 12 U/L (15-37) Alanine Aminotransferase (ALT/SGPT) 24 U/L (14-59) Alkaline Phosphatase 130 U/L (46-116) Total Protein 8.0 g/dL (6.4-8.2) Albumin 4.0 g/dL (3.4-5.0) Albumin/Globulin Ratio 1.0 (1.0-1.7) Lipase 50 U/L (73-393) Urine Collection Type Unknown Urine Color Straw Urine Clarity Clear Urine pH 5.5 Urine Specific [place] 1.010 Urine Protein Neg (NEG-TRACE) Urine Glucose (UA) 500 mg/dL (NEG) Urine Ketones (Stick) >=160 mg/dL (NEG) Urine Blood Neg (NEG) Urine Nitrite Neg (NEG) Urine Bilirubin Neg (NEG) Urine Urobilinogen Dipstick 0.2 mg/dL (0.2 mg/dL) Urine Leukocyte Esterase Neg (NEG) Urine RBC Occ /HPF (0-2) Urine WBC Occ /HPF (0-4) Urine Squamous Epithelial Cells Mod /LPF Urine Bacteria Few /HPF (0-FEW) Urine Opiates Screen Neg (NEG) Urine Methadone Screen Neg (NEG) Urine Barbiturates Neg (NEG) Urine Phencyclidine Screen Neg (NEG) Urine Amphetamine/Methamphetamine Neg (NEG) Urine Benzodiazepines Screen Neg (NEG) Urine Cocaine Screen Neg (NEG) Urine Cannabinoids Screen Neg (NEG) Urine Ethyl Alcohol Neg (NEG) Bedside Urine HCG, Qualitative hcg negative (Negative) Test 06/12/17 13:55 06/12/17 15:59 06/12/17 18:03 06/12/17 19:47 Glucose (Fingerstick) 218 mg/dL (70-99) 330 mg/dL (70-99) 287 mg/dL (70-99) 224 mg/dL (70-99) Test 06/13/17 00:02 06/13/17 03:02 06/13/17 05:09 06/13/17 05:58 Glucose (Fingerstick) 215 mg/dL (70-99) 444 mg/dL (70-99) 334 mg/dL (70-99) White Blood Count 5.4 x10^3/uL (4.0-11.0) Red Blood Count 3.67 x10^6/uL (3.50-5.40) Hemoglobin 10.7 g/dL (12.0-15.5) Hematocrit 31.5 % (36.0-47.0) Mean Corpuscular Volume 86 fL (79-100) Mean Corpuscular Hemoglobin 29 pg (25-35) Mean Corpuscular Hemoglobin Concent 34 g/dL (31-37) Red Cell Distribution Width 16.5 % (11.5-14.5) Platelet Count 236 x10^3/uL (140-400) Neutrophils (%) (Auto) 36 % (31-73) Lymphocytes (%) (Auto) 49 % (24-48) Monocytes (%) (Auto) 10 % (0-9) Eosinophils (%) (Auto) 4 % (0-3) Basophils (%) (Auto) 1 % (0-3) Neutrophils # (Auto) 1.9 x10^3uL (1.8-7.7) Lymphocytes # (Auto) 2.7 x10^3/uL (1.0-4.8) Monocytes # (Auto) 0.5 x10^3/uL (0.0-1.1) Eosinophils # (Auto) 0.2 x10^3/uL (0.0-0.7) Basophils # (Auto) 0.1 x10^3/uL (0.0-0.2) Sodium Level 137 mmol/L (136-145) Potassium Level 3.7 mmol/L (3.5-5.1) Chloride Level 101 mmol/L (98-107) Carbon Dioxide Level 25 mmol/L (21-32) Anion Gap 11 (6-14) Blood Urea Nitrogen 12 mg/dL (7-20) Creatinine 0.8 mg/dL (0.6-1.0) Estimated GFR (Cockcroft-Gault) 86.7 BUN/Creatinine Ratio 15 (6-20) Glucose Level 295 mg/dL (70-99) Calcium Level 8.5 mg/dL (8.5-10.1) Magnesium Level 1.5 mg/dL (1.8-2.4) Total Bilirubin 0.2 mg/dL (0.2-1.0) Aspartate Amino Transf (AST/SGOT) 13 U/L (15-37) Alanine Aminotransferase (ALT/SGPT) 18 U/L (14-59) Alkaline Phosphatase 93 U/L (46-116) Total Protein 5.9 g/dL (6.4-8.2) Albumin 2.8 g/dL (3.4-5.0) Albumin/Globulin Ratio 0.9 (1.0-1.7) Test 06/13/17 06:34 06/13/17 07:23 06/13/17 11:30 Glucose (Fingerstick) 217 mg/dL (70-99) 163 mg/dL (70-99) 367 mg/dL (70-99) Brief Hospital Course Ms. Leary is a 27 old female who presented with nausea and vomiting and hyperglycemia. She was not in DKA. We were able to help long discussion with her because of her multiple continued frequent visits to the emergency room as well as admissions and she finally came clean and admitted that she often does not check her blood sugar and she will often bruits her family in to check her blood sugar and makes her brother give her her insulin. She was seen in consultation by Dr. rodriguez-psychiatrist who recommended dialysis Wellbutrin and of continuing at the [facility] for therapy and counseling. She seemed agreeable to that. She did fine with antiemetics and IV fluids. She was able to eat without throwing up. And was discharged in good conditION. Discharge Information Condition at Discharge: Improved, Stable Disposition/Orders: D/C to Home Dischare Medications Current Medications Sodium Chloride 1,000 ml @ 1,000 mls/hr Q1H IV Last administered on 06/12/17 11:35; Start 06/12/17 at 11:14; Stop 06/12/17 at 12:13; Status DC Ondansetron HCl (Zofran) 4 mg 1X ONCE IV Last administered on 06/12/17 11:15 ; Start 06/12/17 at 11:15; Stop 06/12/17 at 11:26; Status DC Diphenhydramine HCl (Benadryl) 25 mg 1X ONCE IVP Last administered on 11:40; Start 06/12/17 at 12:00; Stop 06/12/17 at 12:01; Status DC Metoclopramide HCl (Reglan) 10 mg 1X ONCE IV Last administered on 06/12/17 11 :35; Start 06/12/17 at 12:00; Stop 06/12/17 at 12:01; Status DC Diphenhydramine HCl (Benadryl) 50 mg STK-MED ONCE .ROUTE ; Start 06/12/17 at 11: 34; Stop 06/12/17 at 11:35; Status DC Metoclopramide HCl (Reglan) 10 mg STK-MED ONCE .ROUTE ; Start 06/12/17 at 11:34 ; Stop 06/12/17 at 11:35; Status DC Insulin Human Regular (NovoLIN R) 14 unit 1X ONCE IV Last administered on 06/12 12:45; Start 06/12/17 at 12:40; Stop 06/12/17 at 12:41; Status DC Sodium Chloride 1,000 ml @ 1,000 mls/hr Q1H IV Last administered on 06/12/17 13:10; Start 06/12/17 at 12:12; Stop 06/12/17 at 13:11; Status DC Dicyclomine HCl (Bentyl) 10 mg 1X ONCE IM Last administered on 06/12/17 12:45 ; Start 06/12/17 at 13:00; Stop 06/12/17 at 13:01; Status DC Ondansetron HCl (Zofran) 4 mg PRN Q4HRS PRN IV NAUSEA/VOMITING; Start 06/12/17 at 12:45; Stop 06/13/17 at 12:44; Status Cancel Sodium Chloride 1,000 ml @ 200 mls/hr Q5H IV Last administered on 06/13/17 05 :15; Start 06/12/17 at 12:39; Stop 06/13/17 at 07:32; Status DC Metoclopramide HCl (Reglan) 10 mg PRN Q6HRS PRN IV NAUSEA/VOMITING; Start 06/12 at 14:45; Stop 06/13/17 at 07:33; Status DC Promethazine HCl 25 mg/Sodium Chloride 51 ml @ 100 mls/hr PRN Q6HRS PRN IV NAUSEA/VOMITING; Start 06/12/17 at 14:45; Stop 06/13/17 at 07:37; Status DC Ondansetron HCl (Zofran) 4 mg PRN Q8HRS PRN IV NAUSEA/VOMITING; Start 06/12/17 at 14:45; Stop 06/13/17 at 07:37; Status DC Diphenhydramine HCl (Benadryl) 12.5 mg PRN Q6HRS PRN IV SEE COMMENTS; Start at 14:45; Stop 06/13/17 at 07:37; Status DC Insulin Aspart (NovoLOG) 0-9 UNITS PRN Q2HR PRN SQ HYPERGLYCEMIA Last administered on 06/13/17 12:00; Start 06/12/17 at 15:00; Stop 06/13/17 at 12:13 ; Status DC Metoclopramide HCl (Reglan) 10 mg QIDACHS PO Last administered on 06/13/17 11: 54; Start 06/12/17 at 21:00; Stop 06/13/17 at 12:13; Status DC Dicyclomine HCl (Bentyl) 20 mg QIDACHS PO Last administered on 06/13/17 11:54 ; Start 06/12/17 at 17:30; Stop 06/13/17 at 12:13; Status DC Ketorolac Tromethamine (Toradol) 15 mg PRN Q6HRS PRN IV PAIN; Start 06/12/17 at 17:45; Stop 06/13/17 at 12:13; Status DC Bupropion HCl (Wellbutrin Xl) 150 mg DAILY PO Last administered on 06/13/17 08 :45; Start 06/13/17 at 09:00; Stop 06/13/17 at 12:13; Status DC Magnesium Oxide (Magnesium Oxide) 400 mg TID PO Last administered on 06/13/17 08:45; Start 06/13/17 at 09:00; Stop 06/13/17 at 12:13; Status DC Metoclopramide HCl (Reglan) 10 mg QIDACHS PO ; Start 06/13/17 at 11:30; Status Cancel Ondansetron HCl (Zofran Odt) 4 mg Q8HRS PRN PO NAUSEA; Start 06/13/17 at 07:45 ; Stop 06/13/17 at 12:13; Status DC Pantoprazole Sodium (Protonix) 40 mg DAILYAC PO Last administered on 06/13/17 08:44; Start 06/13/17 at 07:30; Stop 06/13/17 at 12:13; Status DC Insulin Detemir (Levemir) 15 units BID SQ Last administered on 06/13/17 08:48 ; Start 06/13/17 at 09:00; Stop 06/13/17 at 12:13; Status DC Active Scripts Active Dicyclomine Hcl 20 Mg Tablet 20 Mg PO QIDACHS 90 Days Bupropion Xl (Bupropion Hcl) 150 Mg Tab.er.24h 150 Mg PO DAILY 90 Days Zofran Odt (Ondansetron) 4 Mg Tab.rapdis 1 Tab SL Q8HRS Zofran Odt (Ondansetron) 4 Mg Tab.rapdis 1 Tab SL Q8HRS Pantoprazole Sodium 40 Mg Tablet.dr 40 Mg PO DAILYAC Magnesium Oxide 400 Mg Tablet 1 Tab PO TID Metoclopramide Hcl 5 Mg Tablet 10 Mg PO QIDACHS Novolog Flexpen (Insulin Aspart) 100 Unit/1 Ml Insuln.pen 0-9 Unit SQ ACHS FOLLOW SUPPLEMENTAL SCALE GIVEN TO YOU Reported Levemir (Insulin Detemir) 100 Unit/1 Ml Vial 15 Unit SQ BID resume tonight at bedtime Patient Instructions Patient Instuctions SEE [facility] DISCHARGE INSTRUCTIONS.SEE BARRY PONCE DO Jun 13, 2017 15:19
== END 2017-06-13 12:10 | disposition home or self-care (01) ==
LOC: ER 11:02 → 1 SOUTH 12:42
PROVIDERS: ADMIT Family Medicine; ATTEND Family Medicine
DX: E87.0 Hyperosmolality and hypernatremia (principal); E10.10 Type 1 diabetes mellitus with ketoacidosis without coma; F43.21 Adjustment disorder with depressed mood; E83.42 Hypomagnesemia; F15.10 Other stimulant abuse, uncomplicated; K31.84 Gastroparesis; F41.9 Anxiety disorder, unspecified; F60.9 Personality disorder, unspecified; G47.00 Insomnia, unspecified; F17.210 Nicotine dependence, cigarettes, uncomplicated; Z79.4 Long term (current) use of insulin; Z91.14 Patient's other noncompliance with medication regimen; Z91.19 Patient's noncompliance with other medical treatment and regimen
CPT/HCPCS: 36415; 71010; 80053; 81001; 81025; 82947; 83690; 83735; 85027; 93005; 96361; 96372; 96374; 96375; 99285; G0378; G0481; J0500; J1200; J1815; J2405; J2765; J8597; G0379; J7030

== ENCOUNTER 2017-06-15 21:06 | Emergency (ER) | payer BC ==
[~2017-06-15 21:06] MED LIST changes: +BUPR-192 PO; +DICY20TA3 PO
[2017-06-15 21:10] VITALS: BP 147/91
[2017-06-15] MEDS ORDERED: HALOPERIDOL LACT 5 MG/ML VIAL. IM ONE (21:40)
[2017-06-15] MEDS ORDERED: diphenhydrAMINE 50 MG/ML VIAL IVP ONE (21:40)
[2017-06-15] MEDS ORDERED: IV NORMAL SALINE 1,000ML 1,000 ML IV ONE (21:40)
[2017-06-15 21:43] LABS: BASO # 0.1 x10^3/uL (0.0-0.2); BASO % 2 % (0-3); EOS # 0.1 x10^3/uL (0.0-0.7); EOS % 2 % (0-3); HEMATOCRIT 39.5 % (36.0-47.0); HEMOGLOBIN 13.2 g/dL (12.0-15.5); LYMPH # 2.5 x10^3/uL (1.0-4.8); LYMPH % 40 % (24-48); MEAN CORPUSCULAR HEMOGLOBIN 29 pg (25-35); MEAN CORPUSCULAR HGB CONC 33 g/dL (31-37); MEAN CORPUSCULAR VOLUME 87 fL (79-100); MONO # 0.4 x10^3/uL (0.0-1.1); MONO % 7 % (0-9); NEUT # 3.1 x10^3uL (1.8-7.7); NEUT % 49 % (31-73); PLATELET COUNT 326 x10^3/uL (140-400); RED BLOOD COUNT 4.55 x10^6/uL (3.50-5.40); RED CELL DISTRIBUTION WIDTH 16.7 % (11.5-14.5); WHITE BLOOD COUNT 6.2 x10^3/uL (4.0-11.0)
[2017-06-15] MEDS ORDERED: METOCLOPRAMIDE HCL 10 MG/2 ML VIAL. IV ONE (21:45)
[2017-06-15 21:49] LABS: ALBUMIN 4.2 g/dL (3.4-5.0); CALCIUM 9.1 mg/dL (8.5-10.1); CREATININE 0.6 mg/dL (0.6-1.0); GFR 120.8; POTASSIUM 3.6 mmol/L (3.5-5.1); TOTAL BILIRUBIN 0.3 mg/dL (0.2-1.0); TOTAL PROTEIN 8.3 g/dL (6.4-8.2)
[2017-06-15] MEDS ORDERED: IOHEXOL 300 MG/ML 75 ML VIAL. IV ONE (22:00)
--- NOTE | 2017-06-15 22:03 | PHYS DOC ---
Past History Past Medical History: Diabetes, Other Additional Past Medical Histor: pt reports several admissions for "high blood sugar" Past Surgical History: No Surgical History Smoking: Less than 1pk/day Alcohol Use: None Drug Use: Methamphetamine Adult General Chief Complaint Chief Complaint: NAUSEA/VOMITING/DIARRHEA HPI HPI Patient is a 27 year old F who presents with with increased nausea and vomiting and a history of gastroparesis. Patient states she is a type I diabetic who is a history gastroparesis and has episodes of this. Patient states for the past day and a half she's been unable keep anything down with persistent nausea and vomiting. Patient states her blood sugars run in the 200s. Patient denies any fevers. Patient complains of generalized abdominal tenderness with diarrhea. Patient denies any chest pain or shortness of breath. Review of Systems Review of Systems GEN: Denies fevers, chills, sweats HEENT: Denies blurred vision, sore throat CV: Denies chest pain RESP: Denies shortness of air, cough GI: Abdominal pain and nausea and vomiting and diarrhea NEURO: Denies confusion, dizziness MSK: Denies weakness, joint pain/swelling Current Medications Current Medications Current Medications Medications (Trade) Dose Ordered Sig/Chevy Start Time Stop Time Status Last Admin Dose Admin Diphenhydramine HCl (Benadryl) 50 mg 1X ONCE 06/15/17 21:40 06/15/17 21:41 DC 06/15/17 21:32 50 MG Haloperidol Lactate (Haldol) 2.5 mg 1X ONCE 06/15/17 21:40 06/15/17 21:41 DC Iohexol (Omnipaque 300 Mg/ml) 75 ml 1X ONCE 06/15/17 22:00 06/15/17 22:01 DC Metoclopramide HCl (Reglan) 10 mg 1X ONCE 06/15/17 21:45 06/15/17 21:54 DC 06/15/17 21:45 10 MG Sodium Chloride 1,000 ml @ 1,000 mls/hr 1X ONCE 06/15/17 21:40 06/15/17 22:39 06/15/17 21:31 1,000 MLS/HR Allergies Allergies Allergies Coded Allergies Type Severity Reaction Last Updated Verified acetaminophen Allergy Intermediate HIVES 05/20/17 Yes adhesive tape Allergy Intermediate 05/20/17 Yes I S O L A T I O N *CONTACT* Allergy Unknown 05/20/17 Yes Physical Exam Physical Exam GEN.: Mild distress. Alert and oriented. HEENT: Head is normocephalic, atraumatic NECK: Supple. LUNGS: CTAB. HEART: RRR, S1, S2 present. Peripheral pulses intact ABDOMEN: Soft, mild generalized tenderness palpation. Positive bowel sounds. EXTREMITIES: Without any cyanosis. NEUROLOGIC: Normal speech, normal tone PSYCHIATRIC: Normal affect, normal mood. SKIN: No ulcerations Current Patient Data Vital Signs Vital Signs Date Time Temp Pulse Resp B/P (MAP) Pulse Ox O2 Delivery O2 Flow Rate FiO2 06/15/17 21:10 98.2 111 24 99 Room Air Lab Results Laboratory Tests Test 06/15/17 21:20 White Blood Count 6.2 x10^3/uL (4.0-11.0) Red Blood Count 4.55 x10^6/uL (3.50-5.40) Hemoglobin 13.2 g/dL (12.0-15.5) Hematocrit 39.5 % (36.0-47.0) Mean Corpuscular Volume 87 fL (79-100) Mean Corpuscular Hemoglobin 29 pg (25-35) Mean Corpuscular Hemoglobin Concent 33 g/dL (31-37) Red Cell Distribution Width 16.7 % (11.5-14.5) H Platelet Count 326 x10^3/uL (140-400) Neutrophils (%) (Auto) 49 % (31-73) Lymphocytes (%) (Auto) 40 % (24-48) Monocytes (%) (Auto) 7 % (0-9) Eosinophils (%) (Auto) 2 % (0-3) Basophils (%) (Auto) 2 % (0-3) Neutrophils # (Auto) 3.1 x10^3uL (1.8-7.7) Lymphocytes # (Auto) 2.5 x10^3/uL (1.0-4.8) Monocytes # (Auto) 0.4 x10^3/uL (0.0-1.1) Eosinophils # (Auto) 0.1 x10^3/uL (0.0-0.7) Basophils # (Auto) 0.1 x10^3/uL (0.0-0.2) Sodium Level 139 mmol/L (136-145) Potassium Level 3.6 mmol/L (3.5-5.1) Chloride Level 99 mmol/L (98-107) Carbon Dioxide Level 29 mmol/L (21-32) Anion Gap 11 (6-14) Blood Urea Nitrogen 19 mg/dL (7-20) Creatinine 0.6 mg/dL (0.6-1.0) Estimated GFR (Cockcroft-Gault) 120.8 BUN/Creatinine Ratio 32 (6-20) H Glucose Level 248 mg/dL (70-99) H Calcium Level 9.1 mg/dL (8.5-10.1) Total Bilirubin 0.3 mg/dL (0.2-1.0) Aspartate Amino Transferase (AST) 22 U/L (15-37) Alanine Aminotransferase (ALT) 27 U/L (14-59) Alkaline Phosphatase 93 U/L (46-116) Total Protein 8.3 g/dL (6.4-8.2) H Albumin 4.2 g/dL (3.4-5.0) Albumin/Globulin Ratio 1.0 (1.0-1.7) Lipase 50 U/L (73-393) L EKG EKG [] Radiology/Procedures Radiology/Procedures CT abdomen and pelvis : NAD[] Course & Med Decision Making Course & Med Decision Making Pertinent Labs and Imaging studies reviewed. (See chart for details) ED course: Patient was seen and examined in the emergency room CBC, CMP, CT scan abdomen and pelvis were ordered 2352: On reexamination the patient is resting comfortably not vomiting and feels much better and is ready go home. MDM: After reviewing the chart, CC/HPI/PMH, physical exam, [lab results], [ radiological results], I do not believe the patient has acute abdominal emergency warranting further workup and/or admission at this time. Patient is stable for discharge. Patient's nausea and vomiting has resolved. Additional verbal discharge instructions were provided to the patient and that if symptoms get worse or any new symptoms arise that are worrisome to the patient she is to return to the emergency room immediately [] Dragon Disclaimer Dragon Disclaimer This chart was dictated in whole or in part using Voice Recognition software in a busy, high-work load, and often noisy Emergency Department environment. It may contain unintended and wholly unrecognized errors or omissions. Departure Departure: Impression: Primary Impression: Nausea & vomiting Disposition: 01 HOME, SELF-CARE Condition: IMPROVED Referrals: DANIAL VINCENT (PCP) Patient Instructions: Nausea and Vomiting, [id number] Additional Instructions: Is follow-up with her family doctor next one to 2 days Scripts Ondansetron (ZOFRAN ODT) 4 Mg Tab.rapdis 1 TAB SL Q8HRS, #15 TAB Prov: SABINE GENAO DO 06/15/17 Problem Qualifiers Primary Impression: Nausea & vomiting Vomiting type: unspecified Vomiting Intractability: unspecified Qualified Codes: R11.2 - Nausea with vomiting, unspecified SABINE GENAO DO Jun 15, 2017 22:03
--- NOTE | 2017-06-15 23:46 | RAD ---
EXAM: Abdomen and pelvis CT with intravenous contrast. HISTORY: Pain. TECHNIQUE: Computed tomographic images of the abdomen and pelvis were obtained following the administration of 75 cc Omnipaque 300 intravenous contrast. Multiplanar reformatting was performed. *One or more of the following individualized dose reduction techniques were utilized for this examination: 1. Automated exposure control. 2. Adjustment of the mA and/or kV according to patient size. 3. Use of iterative reconstruction technique. COMPARISON: 06/10/2017. FINDINGS: Evaluation of the lower thorax is unremarkable. The liver is upper normal in size. No focal hepatic lesion is seen. The gallbladder, pancreas, spleen and adrenal glands are unremarkable. There is left renal cortical scarring. There is a subcentimeter left renal cyst. There is no evidence of obstructive uropathy. The appendix is normal in appearance. There is moderate colonic stool. There is no abnormally dilated loop of small bowel. The bladder wall is mildly thickened for bladder volume. There is a small to moderate amount of pelvic free fluid. There are multiple prominent bilateral ovarian follicles. No pathologically enlarged lymph node is seen. There is no suspicious osseous lesion. IMPRESSION: 1. Small to moderate amount of pelvic free fluid. This can be physiologic in a premenopausal female. 2. Left renal cortical scarring and suspected superimposed small left renal cortical cyst. 3. Moderate colonic stool. Electronically signed by: Nisa Parikh MD (06/15/2017 11:43 PM) [facility]
[2017-06-15] MEDS ORDERED: ONDA4TAB10 SL (23:56)
== END 2017-06-16 00:08 | disposition home or self-care (01) ==
LOC: ER 21:06
DX: R11.2 Nausea with vomiting, unspecified (principal); R19.7 Diarrhea, unspecified; R10.84 Generalized abdominal pain; E11.9 Type 2 diabetes mellitus without complications; F17.210 Nicotine dependence, cigarettes, uncomplicated; F15.10 Other stimulant abuse, uncomplicated; Z88.8 Allergy status to other drugs, medicaments and biological substances; Z88.6 Allergy status to analgesic agent; Z91.041 Radiographic dye allergy status
CPT/HCPCS: 36415; 74177; 80053; 83690; 85027; 96361; 96374; 96375; 99285; J1200; J2765; Q9967; J7030

== ENCOUNTER 2017-06-28 10:47 | Inpatient (IN) | payer BC ==
[~2017-06-28] VITALS: Ht 170.2 cm; Wt 62.4 kg
[2017-06-28] MEDS ORDERED: IV NORMAL SALINE 1,000ML 1,000 ML IV ONE (11:10)
--- NOTE | 2017-06-28 11:10 | PHYS DOC ---
Past History Past Medical History: Diabetes, Other Additional Past Medical Histor: pt reports several admissions for "high blood sugar" Past Surgical History: No Surgical History Smoking: Less than 1pk/day Alcohol Use: None Drug Use: Methamphetamine Adult General Chief Complaint Chief Complaint: soa HPI HPI 27-year-old female with a history of type 1 diabetes presenting to the emergency department with shortness of breath. She describes her shortness breath starting this morning. It was not sudden in onset. She denies hemoptysis unilateral leg swelling or personal history of blood clotting disorders. She reports taking her 15 units of NovoLog this morning. She has been having a hard time keeping fluids down. She denies abdominal pain fevers or chills. She denies cough. Location generalized. Duration intermittent. No alleviating or exacerbating factors present. Review of systems is negative for cough chest pain abdominal pain fevers or chills. All other review of systems is negative unless otherwise noted in history of present illness. ED course: 27-year-old female presenting to the emergency department today with shortness of breath. Vital signs show the patient to be quite tachycardic. Pertinent physical exam findings show her to have dry mucous membranes suggestive of dehydration. IV established and blood work obtained. IV fluids administered. It took us about approximately 1 hour to get an IV because the patient is a very hard stick. Patient was given Zofran. IV finally established. IV fluids administered. Patient is acidotic and hyperglycemic consistent with diabetic ketoacidosis. Insulin drip started. Approximately 30 minutes into the patient's care the patient was given subcutaneous aspart. Potassium is 5.1 which I would expect to come down with the insulin administration. The patient was then admitted to the ICU for further evaluation workup and care to Dr. Grigsby who accepted the patient for admission. Review of Systems Review of Systems SEE ABOVE. Current Medications Current Medications Current Medications Medications (Trade) Dose Ordered Sig/Chevy Start Time Stop Time Status Last Admin Dose Admin Sodium Chloride 1,000 ml @ 1,000 mls/hr 1X ONCE 06/28/17 11:10 06/28/17 12:09 Allergies Allergies Allergies Coded Allergies Type Severity Reaction Last Updated Verified acetaminophen Allergy Intermediate HIVES 05/20/17 Yes adhesive tape Allergy Intermediate 05/20/17 Yes I S O L A T I O N *CONTACT* Allergy Unknown 05/20/17 Yes Physical Exam Physical Exam Constitutional: Well developed, well nourished, no acute distress, non-toxic appearance. [] HENT: Normocephalic, atraumatic, bilateral external ears normal, oropharynx moist, no oral exudates, nose normal. [] Eyes: PERRLA, EOMI, conjunctiva normal, no discharge. [] Neck: Normal range of motion, no tenderness, supple, no stridor. [] Cardiovascular:Heart rate regular rhythm, no murmur [] Lungs & Thorax: Bilateral breath sounds clear to auscultation [] Abdomen: Bowel sounds normal, soft, no tenderness, no masses, no pulsatile masses. [] Skin: Warm, dry, no erythema, no rash. [] Back: No tenderness, no CVA tenderness. [] Extremities: No tenderness, no cyanosis, no clubbing, ROM intact, no edema. [] Neurologic: Alert and oriented X 3, normal motor function, normal sensory function, no focal deficits noted. [] Psychologic: Affect normal, judgement normal, mood normal. [] EKG EKG [] Radiology/Procedures Radiology/Procedures [] Course & Med Decision Making Course & Med Decision Making Pertinent Labs and Imaging studies reviewed. (See chart for details) [] Dragon Disclaimer Dragon Disclaimer This chart was dictated in whole or in part using Voice Recognition software in a busy, high-work load, and often noisy Emergency Department environment. It may contain unintended and wholly unrecognized errors or omissions. Departure Departure: Impression: Primary Impression: Dehydration Additional Impressions: SOB (shortness of breath) DKA (diabetic ketoacidoses) Disposition: ADMITTED INPATIENT Admitting Physician: Nadine Grigsby Referrals: DANIAL VINCENT (PCP) Patient Instructions: Dehydration, Adult, Shortness of Breath Critical Care Time Critical care time was [40] minutes exclusive of procedures. Time was spent evaluating patient, ordering the administration of insulin, reevaluating the patient, discussing with the admitting provider and documenting. Problem Qualifiers EVY PATEL MD Jun 28, 2017 11:10
[2017-06-28] MEDS ORDERED: INSULIN ASPART 300 UNITS/3 ML INSULN.PEN SQ ONE (11:15)
[2017-06-28] MEDS ORDERED: ONDANSETRON ODT 4 MG TAB.RAPDIS PO ONE (11:35)
[2017-06-28 11:44] LABS: BASO # 0.1 x10^3/uL (0.0-0.2); BASO % 1 % (0-3); EOS % 0 % (0-3); HEMOGLOBIN 13.4 g/dL (12.0-15.5); LYMPH # 1.3 x10^3/uL (1.0-4.8); LYMPH % 15 % (24-48); MEAN CORPUSCULAR HEMOGLOBIN 29 pg (25-35); MEAN CORPUSCULAR HGB CONC 32 g/dL (31-37); MEAN CORPUSCULAR VOLUME 90 fL (79-100); MONO # 0.3 x10^3/uL (0.0-1.1); MONO % 3 % (0-9); NEUT # 6.6 x10^3uL (1.8-7.7); NEUT % 80 % (31-73); PLATELET COUNT 439 x10^3/uL (140-400); RED BLOOD COUNT 4.67 x10^6/uL (3.50-5.40); RED CELL DISTRIBUTION WIDTH 15.6 % (11.5-14.5); WHITE BLOOD COUNT 8.2 x10^3/uL (4.0-11.0)
--- NOTE | 2017-06-28 11:53 | EKG ---
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 RI6.01 Unconfirmed report Electronically Signed On 07-03-2017 9:41:05 CDT by Mik Flowers
[2017-06-28 11:54] LABS: ALBUMIN 4.1 g/dL (3.4-5.0); CREATININE 1.3 mg/dL (0.6-1.0); DIRECT BILIRUBIN 0.1 mg/dL (0.0-0.2); GFR 49.5; POTASSIUM 5.1 mmol/L (3.5-5.1); TOTAL BILIRUBIN 0.6 mg/dL (0.2-1.0); TOTAL PROTEIN 8.6 g/dL (6.4-8.2)
[2017-06-28] MEDS ORDERED: MORPHINE SULFATE 2 MG/ML DISP.SYRIN. IV PRN (12:15)
[2017-06-28] MEDS ORDERED: ONDANSETRON PF 4 MG/2 ML VIAL. IV PRN ×2 (12:15→15:30)
[2017-06-28] MEDS ORDERED: INSULIN REGULAR 150 UNIT in 0.9 % SODIUM CHLORIDE 150ML 150 ML IV PRN ×2 (12:15→15:30)
[2017-06-28] MEDS ORDERED: INSULIN REGULAR 150 UNIT in 0.9 % SODIUM CHLORIDE 150ML 150 ML IV ONE (12:30)
[2017-06-28] MEDS: IV NORMAL SALINE 1,000ML 1,000 ML IV SCH ×3 (12:45→20:08)
[2017-06-28 14:54] LABS: CALCIUM 8.2 mg/dL (8.5-10.1); CREATININE 1.1 mg/dL (0.6-1.0); POTASSIUM 4.1 mmol/L (3.5-5.1)
[2017-06-28 15:12] LABS: BACTERIA,URINE 0 /HPF (0-FEW); BILIRUBIN,URINE NEG (NEG); CLARITY,URINE CLOUDY; COLOR,URINE YELLOW; GLUCOSE,URINE 500 mg/dL (NEG); NITRITE,URINE NEG (NEG); SQUAMOUS EPITHELIAL CELL,UR MANY /LPF; UROBILINOGEN,URINE 0.2 mg/dL (0.2 mg/dL)
[2017-06-28] MEDS ORDERED: IV DEXTROSE 5 %-0.45 % NACL 1,000 ML IV SCH (16:00)
[2017-06-28 16:48] VITALS: BP 118/92
[2017-06-28] MEDS ORDERED: ELECTROLYTE (ICU) PROTOCOL. MC PRN (17:15)
[2017-06-28] MEDS ORDERED: MAGNESIUM SULFATE 2GM 50 ML IV ONE (17:20)
[2017-06-28 17:41] VITALS: BP 125/83
[2017-06-28 19:45] VITALS: BP 128/84
[2017-06-28] MEDS ORDERED: KETOROLAC 15 MG/ML VIAL. IV PRN (21:00)
[2017-06-28 21:47] LABS: ALBUMIN 2.8 g/dL (3.4-5.0); ALBUMIN/GLOBULIN RATIO 0.9 (1.0-1.7); CREATININE 0.9 mg/dL (0.6-1.0); GFR 75.7; POTASSIUM 3.9 mmol/L (3.5-5.1); TOTAL BILIRUBIN 0.3 mg/dL (0.2-1.0)
[2017-06-28] MEDS: POTASSIUM CL 40MEQ D5-0.45NACL 1,000 ML IV SCH (22:14)
[2017-06-28 22:38] LABS: AMPHETAMINE/METHAMPHETAMINE NEG (NEG); BARBITURATES NEG (NEG); BENZODIAZEPINES NEG (NEG); CANNABINOIDS NEG (NEG); COCAINE NEG (NEG); METHADONE NEG (NEG); OPIATES NEG (NEG); PHENCYCLIDINE NEG (NEG)
[2017-06-28 23:00] VITALS: BP 113/62
--- NOTE | 2017-06-29 01:47 | ACF ---
Admission Criteria Forms DEHYDRATION Clinical Indications for Admission to Inpatient Care (Place 'X' for any and all applicable criteria): Admission is indicated for ANY ONE of the following (1)(2)(3)(4)(5): [X]I. Inpatient admission required rather than observation care (see Dehydration: Observation Care guideline as appropriate) because of ANY ONE of the following: [ ]a) Vomiting that is severe or persistent [X]b) Severe electrolyte abnormalities requiring inpatient care [ ]c) Hemodynamic instability [ ]d) IV fluid to replace significant ongoing losses (greater than 3 L/m2 per day (10) (11) [ ]e) Parenteral nutrition regimen that must be implemented on inpatient basis [ ]f) Other condition,treatment or monitoring requiring inpatient admission [ ]II. Serious cause for dehydration requiring acute hospitalization (eg, bowel obstruction, increased intracranial pressure, infectious cause) Extended stay beyond goal length of stay may be needed for(1)(3 )(4)(17): [ ]a) Chronic severe dehydration [ ]b) Persistent vital sign changes, severe electrolyte imbalance, or diagnosed cause of dehydration that requires continued hospitalization (eg, bowel obstruction, increased intracranial pressure) [ ]c) Older patients (65 years or older) [ ]d) Severe comorbid illness (eg, renal failure, heart failure, poorly controlled diabetes) The original [employer] content created by [employer] has been revised. The portions of the content which have been revised are identified through the use of italic text or in bold, and [email or web address] has neither reviewed nor approved the modified material. All other unmodified content is copyright [employer]. Please see references footnoted in the original [employer] edition 2016 Admission Criteria Met?: Yes KLEVER MATAMOROS Jun 29, 2017 01:47
[2017-06-29 02:00] VITALS: BP 106/66
[2017-06-29 04:00] VITALS: BP 104/68
[2017-06-29] MEDS: POTASSIUM CL 40MEQ D5-0.45NACL 1,000 ML IV SCH (04:24)
[2017-06-29 06:00] VITALS: BP 110/61
[2017-06-29 06:40] LABS: BASO % 1 % (0-3); EOS # 0.1 x10^3/uL (0.0-0.7); EOS % 1 % (0-3); HEMATOCRIT 29.8 % (36.0-47.0); LYMPH # 1.7 x10^3/uL (1.0-4.8); LYMPH % 29 % (24-48); MEAN CORPUSCULAR HEMOGLOBIN 29 pg (25-35); MEAN CORPUSCULAR HGB CONC 34 g/dL (31-37); MEAN CORPUSCULAR VOLUME 86 fL (79-100); MONO # 0.7 x10^3/uL (0.0-1.1); MONO % 11 % (0-9); NEUT # 3.4 x10^3uL (1.8-7.7); NEUT % 58 % (31-73); PLATELET COUNT 289 x10^3/uL (140-400); RED BLOOD COUNT 3.46 x10^6/uL (3.50-5.40); RED CELL DISTRIBUTION WIDTH 15.3 % (11.5-14.5); WHITE BLOOD COUNT 5.9 x10^3/uL (4.0-11.0)
[2017-06-29 06:53] LABS: ALBUMIN 2.7 g/dL (3.4-5.0); ALBUMIN/GLOBULIN RATIO 0.9 (1.0-1.7); CALCIUM 7.4 mg/dL (8.5-10.1); CREATININE 0.8 mg/dL (0.6-1.0); GFR 86.7; MAGNESIUM 1.8 mg/dL (1.8-2.4); POTASSIUM 3.8 mmol/L (3.5-5.1); TOTAL BILIRUBIN 0.3 mg/dL (0.2-1.0); TOTAL PROTEIN 5.7 g/dL (6.4-8.2)
[2017-06-29] MEDS: IV NORMAL SALINE 1,000ML 1,000 ML IV SCH (10:49)
[2017-06-29] MEDS ORDERED: DEXTROSE 50% 25 GM / 50ML DISP.SYRIN. IV PRN (11:15)
[2017-06-29] MEDS ORDERED: INSULIN ASPART 300 UNITS/3 ML INSULN.PEN SQ SCH (11:30)
[2017-06-29] MEDS ORDERED: METOCLOPRAMIDE 10 MG TABLET PO SCH (11:30)
[2017-06-29] MEDS ORDERED: buPROPion XL 150 MG TAB.ER.24H PO SCH (11:30)
[2017-06-29] MEDS ORDERED: PANTOPRAZOLE 40 MG TABLET. PO SCH (11:30)
[2017-06-29] MEDS ORDERED: DICYCLOMINE HCL 20 MG TABLET PO SCH (11:30)
[2017-06-29] MEDS ORDERED: METOCLOPRAMIDE 5 MG TABLET PO SCH (11:30)
[2017-06-29] MEDS ORDERED: PANTOPRAZOLE 40 MG TABLET. PO ONE (11:49)
[2017-06-29] MEDS ORDERED: METOCLOPRAMIDE 10 MG TABLET ONE (11:49)
--- NOTE | 2017-06-29 12:55 | PDOC3 ---
Discharge Summary Visit Information Date of Admission: Jun 28, 2017 Date of Discharge: Jun 29, 2017 Final Diagnosis Problems Medical Problems: (1) Dehydration Status: Acute (2) DKA (diabetic ketoacidoses) Status: Acute Status: Acute 3. Type 1 diabetes, poor control. 4. Adjustment disorder with depression. 5. hypomagnesemia. 6. Methamphetamine abuse, drug screen negative 7. normochromiic normocytic anemia Problems: Brief Hospital Course Allergies Allergies Coded Allergies Type Severity Reaction Last Updated Verified acetaminophen Allergy Intermediate HIVES 05/20/17 Yes adhesive tape Allergy Intermediate 05/20/17 Yes I S O L A T I O N *CONTACT* Allergy Unknown 05/20/17 Yes Vital Signs Vital Signs Date Time Temp Pulse Resp B/P (MAP) Pulse Ox O2 Delivery O2 Flow Rate FiO2 06/29/17 11:28 98.8 101 18 97 Room Air Lab Results Laboratory Tests Test 06/28/17 11:06 06/28/17 11:28 06/28/17 12:05 06/28/17 14:21 Glucose (Fingerstick) 490 mg/dL (70-99) 494 mg/dL (70-99) 166 mg/dL (70-99) White Blood Count 8.2 x10^3/uL (4.0-11.0) Red Blood Count 4.67 x10^6/uL (3.50-5.40) Hemoglobin 13.4 g/dL (12.0-15.5) Hematocrit 42.0 % (36.0-47.0) Mean Corpuscular Volume 90 fL (79-100) Mean Corpuscular Hemoglobin 29 pg (25-35) Mean Corpuscular Hemoglobin Concent 32 g/dL (31-37) Red Cell Distribution Width 15.6 % (11.5-14.5) Platelet Count 439 x10^3/uL (140-400) Neutrophils (%) (Auto) 80 % (31-73) Lymphocytes (%) (Auto) 15 % (24-48) Monocytes (%) (Auto) 3 % (0-9) Eosinophils (%) (Auto) 0 % (0-3) Basophils (%) (Auto) 1 % (0-3) Neutrophils # (Auto) 6.6 x10^3uL (1.8-7.7) Lymphocytes # (Auto) 1.3 x10^3/uL (1.0-4.8) Monocytes # (Auto) 0.3 x10^3/uL (0.0-1.1) Eosinophils # (Auto) 0.0 x10^3/uL (0.0-0.7) Basophils # (Auto) 0.1 x10^3/uL (0.0-0.2) Sodium Level 124 mmol/L (136-145) Potassium Level 5.1 mmol/L (3.5-5.1) Chloride Level 89 mmol/L (98-107) Carbon Dioxide Level 6 mmol/L (21-32) Anion Gap 29 (6-14) Blood Urea Nitrogen 35 mg/dL (7-20) Creatinine 1.3 mg/dL (0.6-1.0) Estimated GFR (Cockcroft-Gault) 49.5 Glucose Level 542 mg/dL (70-99) Calcium Level 9.0 mg/dL (8.5-10.1) Phosphorus Level 5.7 mg/dL (2.6-4.7) Total Bilirubin 0.6 mg/dL (0.2-1.0) Direct Bilirubin 0.1 mg/dL (0.0-0.2) Aspartate Amino Transf (AST/SGOT) 10 U/L (15-37) Alanine Aminotransferase (ALT/SGPT) 22 U/L (14-59) Alkaline Phosphatase 124 U/L (46-116) Troponin I Quantitative < 0.017 ng/mL (0-0.055) Total Protein 8.6 g/dL (6.4-8.2) Albumin 4.1 g/dL (3.4-5.0) Lipase 40 U/L (73-393) Test 06/28/17 14:33 06/28/17 14:50 06/28/17 15:03 06/28/17 15:50 Sodium Level 132 mmol/L (136-145) Potassium Level 4.1 mmol/L (3.5-5.1) Chloride Level 99 mmol/L (98-107) Carbon Dioxide Level 12 mmol/L (21-32) Anion Gap 21 (6-14) Blood Urea Nitrogen 30 mg/dL (7-20) Creatinine 1.1 mg/dL (0.6-1.0) Estimated GFR (Cockcroft-Gault) 60.0 Glucose Level 153 mg/dL (70-99) Calcium Level 8.2 mg/dL (8.5-10.1) Magnesium Level 1.7 mg/dL (1.8-2.4) Urine Collection Type Unknown Urine Color Yellow Urine Clarity Cloudy Urine pH 5.0 Urine Specific [place] 1.025 Urine Protein 30 mg/dl (NEG-TRACE) Urine Glucose (UA) 500 mg/dL (NEG) Urine Ketones (Stick) >=160 mg/dL (NEG) Urine Blood Trace (NEG) Urine Nitrite Neg (NEG) Urine Bilirubin Neg (NEG) Urine Urobilinogen Dipstick 0.2 mg/dL (0.2 mg/dL) Urine Leukocyte Esterase Neg (NEG) Urine RBC 1-2 /HPF (0-2) Urine WBC 1-4 /HPF (0-4) Urine Squamous Epithelial Cells Many /LPF Urine Bacteria 0 /HPF (0-FEW) Urine Opiates Screen Neg (NEG) Urine Methadone Screen Neg (NEG) Urine Barbiturates Neg (NEG) Urine Phencyclidine Screen Neg (NEG) Urine Amphetamine/Methamphetamine Neg (NEG) Urine Benzodiazepines Screen Neg (NEG) Urine Cocaine Screen Neg (NEG) Urine Cannabinoids Screen Neg (NEG) Urine Ethyl Alcohol Neg (NEG) Glucose (Fingerstick) 157 mg/dL (70-99) Nasal Screen MRSA (PCR) Positive (Negative) Test 06/28/17 16:56 06/28/17 18:01 06/28/17 19:31 06/28/17 20:22 Glucose (Fingerstick) 195 mg/dL (70-99) 206 mg/dL (70-99) 162 mg/dL (70-99) 203 mg/dL (70-99) Test 06/28/17 21:10 06/28/17 21:26 06/28/17 22:34 06/28/17 23:25 Sodium Level 134 mmol/L (136-145) Potassium Level 3.9 mmol/L (3.5-5.1) Chloride Level 105 mmol/L (98-107) Carbon Dioxide Level 14 mmol/L (21-32) Anion Gap 15 (6-14) Blood Urea Nitrogen 19 mg/dL (7-20) Creatinine 0.9 mg/dL (0.6-1.0) Estimated GFR (Cockcroft-Gault) 75.7 BUN/Creatinine Ratio 21 (6-20) Glucose Level 181 mg/dL (70-99) Calcium Level 7.0 mg/dL (8.5-10.1) Total Bilirubin 0.3 mg/dL (0.2-1.0) Aspartate Amino Transf (AST/SGOT) 8 U/L (15-37) Alanine Aminotransferase (ALT/SGPT) 14 U/L (14-59) Alkaline Phosphatase 80 U/L (46-116) Total Protein 6.0 g/dL (6.4-8.2) Albumin 2.8 g/dL (3.4-5.0) Albumin/Globulin Ratio 0.9 (1.0-1.7) Glucose (Fingerstick) 180 mg/dL (70-99) 224 mg/dL (70-99) 335 mg/dL (70-99) Test 06/29/17 00:22 06/29/17 01:24 06/29/17 02:19 06/29/17 03:26 Glucose (Fingerstick) 350 mg/dL (70-99) 270 mg/dL (70-99) 239 mg/dL (70-99) 208 mg/dL (70-99) Test 06/29/17 04:28 06/29/17 04:53 06/29/17 05:50 06/29/17 06:08 Glucose (Fingerstick) 178 mg/dL (70-99) 185 mg/dL (70-99) 247 mg/dL (70-99) White Blood Count 5.9 x10^3/uL (4.0-11.0) Red Blood Count 3.46 x10^6/uL (3.50-5.40) Hemoglobin 10.0 g/dL (12.0-15.5) Hematocrit 29.8 % (36.0-47.0) Mean Corpuscular Volume 86 fL (79-100) Mean Corpuscular Hemoglobin 29 pg (25-35) Mean Corpuscular Hemoglobin Concent 34 g/dL (31-37) Red Cell Distribution Width 15.3 % (11.5-14.5) Platelet Count 289 x10^3/uL (140-400) Neutrophils (%) (Auto) 58 % (31-73) Lymphocytes (%) (Auto) 29 % (24-48) Monocytes (%) (Auto) 11 % (0-9) Eosinophils (%) (Auto) 1 % (0-3) Basophils (%) (Auto) 1 % (0-3) Neutrophils # (Auto) 3.4 x10^3uL (1.8-7.7) Lymphocytes # (Auto) 1.7 x10^3/uL (1.0-4.8) Monocytes # (Auto) 0.7 x10^3/uL (0.0-1.1) Eosinophils # (Auto) 0.1 x10^3/uL (0.0-0.7) Basophils # (Auto) 0.0 x10^3/uL (0.0-0.2) Sodium Level 137 mmol/L (136-145) Potassium Level 3.8 mmol/L (3.5-5.1) Chloride Level 108 mmol/L (98-107) Carbon Dioxide Level 22 mmol/L (21-32) Anion Gap 7 (6-14) Blood Urea Nitrogen 11 mg/dL (7-20) Creatinine 0.8 mg/dL (0.6-1.0) Estimated GFR (Cockcroft-Gault) 86.7 BUN/Creatinine Ratio 14 (6-20) Glucose Level 219 mg/dL (70-99) Calcium Level 7.4 mg/dL (8.5-10.1) Magnesium Level 1.8 mg/dL (1.8-2.4) Total Bilirubin 0.3 mg/dL (0.2-1.0) Aspartate Amino Transf (AST/SGOT) 8 U/L (15-37) Alanine Aminotransferase (ALT/SGPT) 14 U/L (14-59) Alkaline Phosphatase 84 U/L (46-116) Total Protein 5.7 g/dL (6.4-8.2) Albumin 2.7 g/dL (3.4-5.0) Albumin/Globulin Ratio 0.9 (1.0-1.7) Test 06/29/17 07:21 06/29/17 08:23 06/29/17 09:40 06/29/17 11:02 Glucose (Fingerstick) 263 mg/dL (70-99) 261 mg/dL (70-99) 244 mg/dL (70-99) 369 mg/dL (70-99) Brief Hospital Course Ms. Leary is a 27 old female with poorly controlled Type 1 Diabetes with numerous admissions for DKA who presented in DKA. There was some question as to whether she has a bulemic eating disorder which she emphatically denied . she was treated with an insulin drip, IV fluids and magnesium and her DKA corrected. PE: eyes clear, tongue moist, throat clear, lungs clear, cvrrr, abdomen soft , non tender. Extremities without edema. Discharge Information Condition at Discharge: Improved Disposition/Orders: D/C to Home Dischare Medications Current Medications Sodium Chloride 1,000 ml @ 1,000 mls/hr 1X ONCE IV Last administered on 12:00; Start 06/28/17 at 11:10; Stop 06/28/17 at 12:09; Status DC Insulin Aspart (NovoLOG) 10 units 1X ONCE SQ Last administered on 06/28/17 11: 22; Start 06/28/17 at 11:15; Stop 06/28/17 at 11:16; Status DC Ondansetron HCl (Zofran Odt) 4 mg 1X ONCE PO Last administered on 06/28/17 11: 35; Start 06/28/17 at 11:35; Stop 06/28/17 at 11:36; Status DC Ondansetron HCl (Zofran) 4 mg PRN Q4HRS PRN IV NAUSEA/VOMITING; Start 06/28/17 at 12:15; Stop 06/28/17 at 15:42; Status DC Morphine Sulfate (Morphine 2mg Syringe) 2 mg PRN Q2HR PRN IV PAIN; Start at 12:15; Stop 06/29/17 at 12:14; Status DC Sodium Chloride 1,000 ml @ 125 mls/hr Q8H IV Last administered on 06/29/17 10 :49; Start 06/28/17 at 12:20; Stop 06/29/17 at 12:19; Status DC Insulin Human Regular 150 unit/ Sodium Chloride 151.5 ml @ 0 mls/hr CONT PRN PRN IV PER PROTOCOL; Start 06/28/17 at 12:15; Stop 06/28/17 at 15:44; Status DC Insulin Human Regular 150 unit/ Sodium Chloride 151.5 ml @ 0 mls/hr 1X ONCE IV Last administered on 06/28/17 12:45; Start 06/28/17 at 12:30; Stop 06/28/17 at 14:25; Status DC Ondansetron HCl (Zofran) 4 mg PRN Q8HRS PRN IV NAUSEA/VOMITING; Start 06/28/17 at 15:30; Stop 06/29/17 at 12:32; Status DC Dextrose/Sodium Chloride 1,000 ml @ 0 mls/hr Q0M IV ; Start 06/28/17 at 16:00; Stop 06/28/17 at 19:07; Status DC Insulin Human Regular 150 unit/ Sodium Chloride 151.5 ml @ 0 mls/hr CONT PRN PRN IV PER PROTOCOL; Start 06/28/17 at 15:30; Stop 06/29/17 at 12:32; Status DC Magnesium Sulfate 50 ml @ 25 mls/hr 1X ONCE IV Last administered on 06/28/17 17:27; Start 06/28/17 at 17:20; Stop 06/28/17 at 19:19; Status DC Info 1 ea CONT PRN PRN MC PER PROTOCOL; Start 06/28/17 at 17:15; Stop 06/29/17 at 12:32; Status DC Potassium Chloride/Dextrose/ Sod Cl 1,000 ml @ 0 mls/hr Q0M IV Last administered on 06/29/17 04:24; Start 06/28/17 at 19:04; Stop 06/29/17 at 12:32 ; Status DC Ketorolac Tromethamine (Toradol) 15 mg PRN Q6HRS PRN IV PAIN Last administered on 06/29/17 11:44; Start 06/28/17 at 21:00; Stop 06/29/17 at 12:32; Status DC Bupropion HCl (Wellbutrin Xl) 150 mg DAILY PO Last administered on 06/29/17 11 :47; Start 06/29/17 at 11:30; Stop 06/29/17 at 12:32; Status DC Dicyclomine HCl (Bentyl) 20 mg QIDACHS PO Last administered on 06/29/17 11:47 ; Start 06/29/17 at 11:30; Stop 06/29/17 at 12:32; Status DC Magnesium Oxide (Magnesium Oxide) 400 mg TID PO ; Start 06/29/17 at 14:00; Stop 06/29/17 at 14:00; Status DC Metoclopramide HCl (Reglan) 10 mg QIDACHS PO ; Start 06/29/17 at 11:30; Stop 09/05 at 11:30; Status DC Ondansetron HCl (Zofran Odt) 4 mg Q8HRS PO ; Start 06/29/17 at 14:00; Stop 06/29 at 14:00; Status DC Pantoprazole Sodium (Protonix) 40 mg DAILYAC PO Last administered on 06/29/17 11:50; Start 06/29/17 at 11:30; Stop 06/29/17 at 12:32; Status DC Insulin Detemir (Levemir) 15 units BID SQ ; Start 06/29/17 at 21:00; Stop at 21:00; Status DC Insulin Aspart (NovoLOG) 0-9 UNITS QIDACHS SQ Last administered on 06/29/17 11 :58; Start 06/29/17 at 11:30; Stop 06/29/17 at 12:32; Status DC Dextrose 12.5 gm PRN Q15MIN PRN IV SEE COMMENTS; Start 06/29/17 at 11:15; Stop 06/29/17 at 12:32; Status DC Metoclopramide HCl (Reglan) 10 mg QIDACHS PO Last administered on 06/29/17 11: 50; Start 06/29/17 at 11:30; Stop 06/29/17 at 12:32; Status DC Pantoprazole Sodium (Protonix) 40 mg STK-MED ONCE PO ; Start 06/29/17 at 11:49; Stop 06/29/17 at 12:47; Status DC Active Scripts Active Dicyclomine Hcl 20 Mg Tablet 20 Mg PO QIDACHS 90 Days Bupropion Xl (Bupropion Hcl) 150 Mg Tab.er.24h 150 Mg PO DAILY 90 Days Zofran Odt (Ondansetron) 4 Mg Tab.rapdis 1 Tab SL Q8HRS Pantoprazole Sodium 40 Mg Tablet.dr 40 Mg PO DAILYAC Magnesium Oxide 400 Mg Tablet 1 Tab PO TID Metoclopramide Hcl 5 Mg Tablet 10 Mg PO QIDACHS Novolog Flexpen (Insulin Aspart) 100 Unit/1 Ml Insuln.pen 0-9 Unit SQ ACHS FOLLOW SUPPLEMENTAL SCALE GIVEN TO YOU Reported Levemir (Insulin Detemir) 100 Unit/1 Ml Vial 15 Unit SQ BID resume tonight at bedtime Patient Instructions Patient Instuctions Check glucoses and treat the hyperglycemia with insulin even when not feeling well. Keep appointments with endocrinologists. BARRY MORELAND DO Jun 29, 2017 12:55
[2017-06-29] MEDS ORDERED: MAGNESIUM OXIDE 400 MG TABLET PO SCH (14:00)
[2017-06-29] MEDS ORDERED: ONDANSETRON ODT 4 MG TAB.RAPDIS PO SCH (14:00)
[2017-06-29] MEDS ORDERED: INSULIN DETEMIR 300 UNITS/3 ML INSULN.PEN. SQ SCH (21:00)
== END 2017-06-29 12:26 | disposition home or self-care (01) | DRG 639 ==
LOC: ER 10:47 → ICU 12:05
PROVIDERS: ADMIT Family Medicine; ATTEND Family Medicine
DX: E10.10 Type 1 diabetes mellitus with ketoacidosis without coma (principal); E83.42 Hypomagnesemia; E86.0 Dehydration; D64.9 Anemia, unspecified; F43.21 Adjustment disorder with depressed mood; Z79.4 Long term (current) use of insulin; Z79.899 Other long term (current) drug therapy; Z79.1 Long term (current) use of non-steroidal anti-inflammatories (NSAID); Z88.8 Allergy status to other drugs, medicaments and biological substances; Z91.048 Other nonmedicinal substance allergy status; Z72.0 Tobacco use; Z68.21 Body mass index [BMI] 21.0-21.9, adult
CPT/HCPCS: 36415; 80048; 80053; 80076; 80307; 81001; 82947; 83690; 83735; 83930; 84100; 84484; 85027; 87641; 93005; 96361; 96365; 96366; 96372; J1815; J1885; J3475; J7042; J8597; Q0162; 99291-25; G0479; J7030

== ENCOUNTER 2017-07-03 18:44 | Inpatient (IN) | payer BC ==
[~2017-07-03] VITALS: Ht 170.2 cm; Wt 67.4 kg
[2017-07-03] MEDS ORDERED: IV NORMAL SALINE 1,000ML 1,000 ML IV ONE ×2 (19:00→19:20)
[2017-07-03] MEDS ORDERED: ONDANSETRON PF 4 MG/2 ML VIAL. ONE (19:11)
[2017-07-03] MEDS ORDERED: ONDANSETRON PF 4 MG/2 ML VIAL. IV ONE ×2 (19:15→19:20)
[2017-07-03 19:25] LABS: BASO # 0.1 x10^3/uL (0.0-0.2); BASO % 2 % (0-3); EOS # 0.1 x10^3/uL (0.0-0.7); EOS % 2 % (0-3); HEMATOCRIT 41.9 % (36.0-47.0); HEMOGLOBIN 13.9 g/dL (12.0-15.5); LYMPH % 39 % (24-48); MEAN CORPUSCULAR HEMOGLOBIN 29 pg (25-35); MEAN CORPUSCULAR HGB CONC 33 g/dL (31-37); MEAN CORPUSCULAR VOLUME 88 fL (79-100); MONO # 0.5 x10^3/uL (0.0-1.1); MONO % 6 % (0-9); NEUT % 52 % (31-73); PLATELET COUNT 381 x10^3/uL (140-400); RED BLOOD COUNT 4.78 x10^6/uL (3.50-5.40); RED CELL DISTRIBUTION WIDTH 15.5 % (11.5-14.5); WHITE BLOOD COUNT 7.7 x10^3/uL (4.0-11.0)
[2017-07-03 19:38] LABS: ALBUMIN 4.5 g/dL (3.4-5.0); CALCIUM 8.9 mg/dL (8.5-10.1); CREATININE 0.9 mg/dL (0.6-1.0); GFR 75.7; POTASSIUM 4.1 mmol/L (3.5-5.1); TOTAL BILIRUBIN 0.5 mg/dL (0.2-1.0)
[2017-07-03] MEDS ORDERED: INSULIN REGULAR 100 UNIT/ML 10ML VIAL. IV ONE (20:30)
[2017-07-03] MEDS ORDERED: PROMETHAZINE 12.5 MG in IV NORMAL SALINE 50ML 50 ML IV PRN (21:15)
[2017-07-03] MEDS ORDERED: KETOROLAC 30 MG/ML VIAL. IV ONE (21:20)
[2017-07-03] MEDS ORDERED: MORPHINE SULFATE 2 MG/ML DISP.SYRIN. IV PRN (21:30)
[2017-07-03] MEDS ORDERED: INSULIN REGULAR 150 UNIT in 0.9 % SODIUM CHLORIDE 150ML 150 ML IV PRN (21:30)
[2017-07-03] MEDS ORDERED: ONDANSETRON PF 4 MG/2 ML VIAL. IV PRN (21:30)
[2017-07-03] MEDS: IV NORMAL SALINE 1,000ML 1,000 ML IV SCH ×2 (21:58→23:31)
[2017-07-03 22:07] LABS: BACTERIA,URINE FEW /HPF (0-FEW); BILIRUBIN,URINE NEG (NEG); CLARITY,URINE HAZY; COLOR,URINE YELLOW; GLUCOSE,URINE 500 mg/dL (NEG); NITRITE,URINE NEG (NEG); SQUAMOUS EPITHELIAL CELL,UR MANY /LPF; UROBILINOGEN,URINE 0.2 mg/dL (0.2 mg/dL)
[2017-07-03 22:30] VITALS: BP 101/76
[2017-07-03] MEDS ORDERED: MAGNESIUM SULFATE 2GM 50 ML IV PRN (23:15)
[2017-07-03] MEDS ORDERED: IV NORMAL SALINE 1,000ML 1,000 ML IV SCH (23:30)
[2017-07-03] MEDS ORDERED: IV DEXTROSE 5 %-0.45 % NACL 1,000 ML IV SCH (23:30)
[2017-07-03 23:51] LABS: CALCIUM 6.8 mg/dL (8.5-10.1); CREATININE 0.6 mg/dL (0.6-1.0); GFR 120.8; MAGNESIUM 1.5 mg/dL (1.8-2.4); POTASSIUM 3.8 mmol/L (3.5-5.1)
[2017-07-04] VITALS (13 sets, daily range): BP systolic 110–146; BP diastolic 76–97
--- NOTE | 2017-07-04 00:09 | PHYS DOC ---
Past History Past Medical History: Diabetes, Other Additional Past Medical Histor: pt reports several admissions for "high blood sugar" Past Surgical History: No Surgical History Smoking: Less than 1pk/day Alcohol Use: None Drug Use: Methamphetamine Adult General Chief Complaint Chief Complaint: NAUSEA/VOMITING/DIARRHEA HPI HPI Patient is a [age] year old [sex] who presents with [] Review of Systems Review of Systems Constitutional: Denies fever or chills [] Eyes: Denies change in visual acuity, redness, or eye pain [] HENT: Denies nasal congestion or sore throat [] Respiratory: Denies cough or shortness of breath [] Cardiovascular: No additional information not addressed in HPI [] GI: Denies abdominal pain, nausea, vomiting, bloody stools or diarrhea [] : Denies dysuria or hematuria [] Musculoskeletal: Denies back pain or joint pain [] Integument: Denies rash or skin lesions [] Neurologic: Denies headache, focal weakness or sensory changes [] Endocrine: Denies polyuria or polydipsia [] Current Medications Current Medications Current Medications Medications (Trade) Dose Ordered Sig/Chevy Start Time Stop Time Status Last Admin Dose Admin Insulin Human Regular (NovoLIN R) 5 unit 1X ONCE 07/03/17 20:30 07/03/17 20:31 DC 07/03/17 20:26 5 UNIT Insulin Human Regular 150 unit/ Sodium Chloride 151.5 ml @ 0 mls/hr CONT PRN PRN 07/03/17 21:30 07/03/17 21:45 1.88 MLS/HR Ketorolac Tromethamine (Toradol) 30 mg 1X ONCE 07/03/17 21:20 07/03/17 21:22 DC 07/03/17 21:20 30 MG Morphine Sulfate (Morphine 2mg Syringe) 2 mg PRN Q2HR PRN 07/03/17 21:30 07/04/17 21:29 Ondansetron HCl (Zofran) 4 mg PRN Q4HRS PRN 07/03/17 21:30 07/04/17 21:29 Promethazine HCl 12.5 mg/Sodium Chloride 50.5 ml @ 101 mls/hr PRN Q6HRS PRN 07/03/17 21:15 07/03/17 23:31 101 MLS/HR Sodium Chloride 1,000 ml @ 0 mls/hr Q0M 07/03/17 21:20 07/03/17 23:31 500 MLS/HR Allergies Allergies Allergies Coded Allergies Type Severity Reaction Last Updated Verified acetaminophen Allergy Intermediate HIVES 05/20/17 Yes adhesive tape Allergy Intermediate 05/20/17 Yes I S O L A T I O N *CONTACT* Allergy Unknown 05/20/17 Yes Physical Exam Physical Exam Constitutional: Well developed, well nourished, no acute distress, non-toxic appearance. [] HENT: Normocephalic, atraumatic, bilateral external ears normal, oropharynx moist, no oral exudates, nose normal. [] Eyes: PERRLA, EOMI, conjunctiva normal, no discharge. [] Neck: Normal range of motion, no tenderness, supple, no stridor. [] Cardiovascular:Heart rate regular rhythm, no murmur [] Lungs & Thorax: Bilateral breath sounds clear to auscultation [] Abdomen: Bowel sounds normal, soft, no tenderness, no masses, no pulsatile masses. [] Skin: Warm, dry, no erythema, no rash. [] Back: No tenderness, no CVA tenderness. [] Extremities: No tenderness, no cyanosis, no clubbing, ROM intact, no edema. [] Neurologic: Alert and oriented X 3, normal motor function, normal sensory function, no focal deficits noted. [] Psychologic: Affect normal, judgement normal, mood normal. [] Current Patient Data Vital Signs Vital Signs Date Time Temp Pulse Resp B/P (MAP) Pulse Ox O2 Delivery O2 Flow Rate FiO2 07/03/17 23:59 Room Air 07/03/17 22:30 97.8 101 17 101/76 (84) 99 Lab Results Laboratory Tests Test 07/03/17 18:57 07/03/17 21:08 07/03/17 21:19 07/03/17 21:24 White Blood Count 7.7 x10^3/uL (4.0-11.0) Red Blood Count 4.78 x10^6/uL (3.50-5.40) Hemoglobin 13.9 g/dL (12.0-15.5) # Hematocrit 41.9 % (36.0-47.0) # Mean Corpuscular Volume 88 fL (79-100) Mean Corpuscular Hemoglobin 29 pg (25-35) Mean Corpuscular Hemoglobin Concent 33 g/dL (31-37) Red Cell Distribution Width 15.5 % (11.5-14.5) H Platelet Count 381 x10^3/uL (140-400) Neutrophils (%) (Auto) 52 % (31-73) Lymphocytes (%) (Auto) 39 % (24-48) Monocytes (%) (Auto) 6 % (0-9) Eosinophils (%) (Auto) 2 % (0-3) Basophils (%) (Auto) 2 % (0-3) Neutrophils # (Auto) 4.0 x10^3uL (1.8-7.7) Lymphocytes # (Auto) 3.0 x10^3/uL (1.0-4.8) Monocytes # (Auto) 0.5 x10^3/uL (0.0-1.1) Eosinophils # (Auto) 0.1 x10^3/uL (0.0-0.7) Basophils # (Auto) 0.1 x10^3/uL (0.0-0.2) Sodium Level 134 mmol/L (136-145) L Potassium Level 4.1 mmol/L (3.5-5.1) Chloride Level 94 mmol/L (98-107) L Carbon Dioxide Level 17 mmol/L (21-32) L Anion Gap 23 (6-14) H Blood Urea Nitrogen 11 mg/dL (7-20) Creatinine 0.9 mg/dL (0.6-1.0) Estimated GFR (Cockcroft-Gault) 75.7 BUN/Creatinine Ratio 12 (6-20) Glucose Level 354 mg/dL (70-99) H Calcium Level 8.9 mg/dL (8.5-10.1) Phosphorus Level 3.5 mg/dL (2.6-4.7) Total Bilirubin 0.5 mg/dL (0.2-1.0) Aspartate Amino Transferase (AST) 14 U/L (15-37) L Alanine Aminotransferase (ALT) 18 U/L (14-59) Alkaline Phosphatase 146 U/L (46-116) H Total Protein 9.0 g/dL (6.4-8.2) H Albumin 4.5 g/dL (3.4-5.0) Albumin/Globulin Ratio 1.0 (1.0-1.7) Acetone Level Mod pos (NEG) Urine Collection Type Unknown Urine Color Yellow Urine Clarity Hazy Urine pH 6.0 Urine Specific [place] 1.020 Urine Protein Trace (NEG-TRACE) Urine Glucose (UA) 500 mg/dL (NEG) Urine Ketones (Stick) >=160 mg/dL (NEG) Urine Blood Neg (NEG) Urine Nitrite Neg (NEG) Urine Bilirubin Neg (NEG) Urine Urobilinogen Dipstick 0.2 mg/dL (0.2 mg/dL) Urine Leukocyte Esterase Neg (NEG) Urine RBC 1-2 /HPF (0-2) Urine WBC 1-4 /HPF (0-4) Urine Squamous Epithelial Cells Many /LPF Urine Bacteria Few /HPF (0-FEW) POC Urine HCG, Qualitative hcg negative (Negative) Glucose (Fingerstick) 215 mg/dL (70-99) H Test 07/03/17 21:48 07/03/17 23:26 07/03/17 23:30 Glucose (Fingerstick) 154 mg/dL (70-99) H 198 mg/dL (70-99) H Sodium Level 136 mmol/L (136-145) Potassium Level 3.8 mmol/L (3.5-5.1) Chloride Level 107 mmol/L (98-107) Carbon Dioxide Level 16 mmol/L (21-32) L Anion Gap 13 (6-14) Blood Urea Nitrogen 11 mg/dL (7-20) Creatinine 0.6 mg/dL (0.6-1.0) Estimated GFR (Cockcroft-Gault) 120.8 Glucose Level 214 mg/dL (70-99) H Calcium Level 6.8 mg/dL (8.5-10.1) #L Magnesium Level 1.5 mg/dL (1.8-2.4) L EKG EKG [] Radiology/Procedures Radiology/Procedures [] Course & Med Decision Making Course & Med Decision Making Pertinent Labs and Imaging studies reviewed. (See chart for details) [] Dragon Disclaimer Dragon Disclaimer This chart was dictated in whole or in part using Voice Recognition software in a busy, high-work load, and often noisy Emergency Department environment. It may contain unintended and wholly unrecognized errors or omissions. Departure Departure: Impression: Primary Impression: Abdominal pain Additional Impression: DKA (diabetic ketoacidoses) Disposition: 09 ADMITTED INPATIENT Admitting Physician: Justin Pereira Condition: IMPROVED Referrals: DANIAL VINCENT (PCP) Problem Qualifiers SAMAN BHATTI MD Jul 04, 2017 00:09
[2017-07-04] MEDS: POTASSIUM CL 20MEQ D5-0.45NACL 1,000 ML IV SCH ×4 (01:44→17:54)
[2017-07-04 06:37] LABS: BASO # 0.1 x10^3/uL (0.0-0.2); BASO % 1 % (0-3); EOS # 0.2 x10^3/uL (0.0-0.7); EOS % 3 % (0-3); LYMPH # 2.3 x10^3/uL (1.0-4.8); LYMPH % 40 % (24-48); MEAN CORPUSCULAR HEMOGLOBIN 29 pg (25-35); MEAN CORPUSCULAR HGB CONC 33 g/dL (31-37); MEAN CORPUSCULAR VOLUME 86 fL (79-100); MONO # 0.4 x10^3/uL (0.0-1.1); MONO % 7 % (0-9); NEUT # 2.8 x10^3uL (1.8-7.7); NEUT % 50 % (31-73); PLATELET COUNT 283 x10^3/uL (140-400); RED BLOOD COUNT 3.82 x10^6/uL (3.50-5.40); RED CELL DISTRIBUTION WIDTH 15.2 % (11.5-14.5); WHITE BLOOD COUNT 5.7 x10^3/uL (4.0-11.0)
[2017-07-04 06:38] LABS: CALCIUM 7.4 mg/dL (8.5-10.1); CREATININE 0.7 mg/dL (0.6-1.0); GFR 101.1; POTASSIUM 3.6 mmol/L (3.5-5.1)
--- NOTE | 2017-07-04 06:49 | EKG ---
[address] [address] Test Date: 2017-07-03 Test Time: 21:49:34 Pat Name: CHALO RAYMUNDO Department: Room: Gender: F [employer] Operator: RUFINO : 1990 Requested By: SAMAN BHATTI Order Number: [id number] Reading MD: Measurements Intervals [place] Rate: 111 P: 53 NV: 122 QRS: 64 QRSD: 86 T: 29 QT: 314 QTc: 430 Interpretive Statements SINUS TACHYCARDIA QRS(T) CONTOUR ABNORMALITY CONSIDER ANTEROLATERAL MYOCARDIAL DAMAGE RI6.01 Unconfirmed report No previous ECG available for comparison
[2017-07-04] MEDS ORDERED: POTASSIUM CHLORIDE 20 MEQ TABLET.ER. PO ONE (07:30)
[2017-07-04] MEDS ORDERED: INSULIN ASPART 300 UNITS/3 ML INSULN.PEN SQ PRN (08:00)
--- NOTE | 2017-07-04 08:18 | RAD ---
AP chest, 07/03/2017: History: Diabetic ketoacidosis Comparison is made to a study from 06/12/2017. The heart size and pulmonary vascularity are normal. The lungs are clear. There is no evidence of pleural fluid. IMPRESSION: No acute cardiopulmonary abnormality is detected.
[2017-07-04] MEDS ORDERED: INSULIN DETEMIR 300 UNITS/3 ML INSULN.PEN. SQ SCH ×2 (09:00)
[2017-07-04] MEDS ORDERED: KETOROLAC 30 MG/ML VIAL. IV PRN (09:45)
[2017-07-04] MEDS: SUCRALFATE 1 GM/10 ML ORAL.SUSP. PO SCH ×2 (11:30→16:54)
[2017-07-04] MEDS: DICYCLOMINE HCL 20 MG TABLET PO SCH ×2 (11:35→16:53)
[2017-07-04] MEDS: METOCLOPRAMIDE 10 MG TABLET PO SCH ×2 (11:35→16:53)
[2017-07-04] MEDS ORDERED: SUCRALFATE 1 GM/10 ML ORAL.SUSP. PO SCH (16:30)
[2017-07-04] MEDS ORDERED: traMADol 50 MG TABLET PO PRN (18:00)
[2017-07-04] MEDS ORDERED: PANTOPRAZOLE 40 MG TABLET. PO SCH (21:00)
[2017-07-04] MEDS ORDERED: MAGNESIUM OXIDE 400 MG TABLET PO SCH (21:00)
--- NOTE | 2017-07-04 21:11 | HP ---
ADMIT DATE: 07/04/2017 HISTORY OF PRESENT ILLNESS: This is a 27-year-old female patient who yet again came to the Emergency Room complaining of recurrent bouts of nausea, vomiting, and diarrhea. She did also complain of pain around epigastric area, describes as burning sensation. Evaluation in the Emergency Room showed that she has hyperglycemia with a blood sugar of 354, her anion gap of 23 and bicarbonate of 17. She was started on IV fluid and insulin drip according to the diabetic ketoacidosis protocol. Her mother stated the reason for her to come here is that she has abdominal pain, mainly in the epigastric area, describes as burning sensation that is mostly in the epigastric area. It does not go through and through. Denied any acid reflux. Denied any fever or chills. PAST MEDICAL HISTORY: Significant for poorly controlled type 1 diabetes, chronic hypomagnesemia, methamphetamine abuse, normochromic normocytic anemia, diabetic gastroparesis. PAST SURGICAL HISTORY: Significant for Port-A-Cath placement and removal as well as incision of left axillary abscess. She has had also multiple upper GI endoscopies. ALLERGIES: She is allergic to ADHESIVE TAPES and ACETAMINOPHEN. MEDICATIONS: She is currently on the following medications: She is on Wellbutrin 150 mg once a day, dicyclomine 20 mg 4 times a day before meals and bedtime. She is on Levemir insulin 15 units twice a day, magnesium oxide 400 mg 3 times a day, metoclopramide 10 mg before meals and bedtime, ondansetron ODT 4 mg every 8 hours and Protonix 40 mg daily. FAMILY HISTORY: Unremarkable. SOCIAL HISTORY: She lives with her mom. She has one brother. She apparently continues to abuse methamphetamine, although her most recent urine toxicology screen was negative. PHYSICAL EXAMINATION: GENERAL: On arrival to the Emergency Room, she was pale, but no jaundice, cyanosis, or thyromegaly. No jugular venous distention. No limb edema. VITAL SIGNS: Her heart rate was 130, blood pressure was 118/72, temperature was 98.3, respiratory rate was 17 and oxygen saturation was 99% on room air. HEAD, EYES, EARS, NOSE AND THROAT: Showed normocephalic, atraumatic. NECK: Supple. HEART: Showed normal first and second heart sounds with no gallop, rub or murmur. CHEST: Clear to auscultation. No crepitation or rhonchi. ABDOMEN: Scaphoid, soft with tenderness mainly in the epigastric area. No guarding or rigidity. No organomegaly. All hernial orifices are intact. Bowel sounds are normal. NEUROLOGIC: She was awake, alert, responding appropriately. All her cranial nerves are intact. EXTREMITIES: She moves extremities without difficulty. LABORATORY DATA: Her initial lab work showed that her white cell count was 8200, hemoglobin was 13.9, hematocrit 41.9, MCV 88 and platelet count of 381,000. Her chemistry on admission showed a serum sodium 136, potassium 4.1, chloride 94, bicarbonate 17, anion gap of 23, BUN 11, creatinine 0.9, estimated GFR was 76 mL per minute. Her blood sugar was 354 mg/dL. Calcium was 8.9. Total bilirubin, AST, ALT were normal. Alkaline phosphatase was slightly elevated. Her total protein was 9, albumin was 4.5. Her urinalysis was essentially unremarkable. The urine was yellow, hazy with a pH of 6, specific gravity of 1.020. There was a trace of protein, large amount of glucose, large amount of ketones, it was negative for blood, nitrite and leukocyte esterase. There are 1-2 RBCs, 1-4 WBCs, very few bacteria and urine test was negative. Her toxicology screen was negative for opiates, methadone, barbiturates, phencyclidine, amphetamine, methamphetamine, benzodiazepine, cocaine, cannabinoids and alcohol. There is moderate amount of acetone. DIAGNOSTIC DATA: She did have a chest x-ray, which was basically unremarkable and showed that the heart size and pulmonary vascularity are normal. The lungs are clear. There is no evidence of pleural fluid. ASSESSMENT AND PLAN: The patient was admitted with another episode of at this time, probably [id number]-[id number] diabetic ketoacidosis. She has also severe epigastric pain that she describes as burning sensation. She is known to have diabetic gastroparesis. She has been on Protonix for that and apparently she was started before on dicyclomine for what seems to be irritable bowel syndrome. She was admitted to the ICU, was continued on IV fluid, insulin drip according to the diabetic ketoacidosis. ANAYELI FOSS MD DR: JOSÉ/regina JOB#: [id number] / [id number]
[2017-07-05] MEDS ORDERED: PANTOPRAZOLE 40 MG TABLET. PO SCH (07:30)
[2017-07-05] MEDS ORDERED: buPROPion XL 150 MG TAB.ER.24H PO SCH (09:00)
--- NOTE | 2017-07-05 12:20 | PN ---
DATE: 07/04/2017 SUBJECTIVE: The patient was admitted yesterday with diabetic ketoacidosis. She also complained of epigastric pain as burning in nature. She was started on insulin drip as well as IV fluid and her blood sugar has been well controlled. Her insulin drip was discontinued; however, she continued to have epigastric pain for which we did start her on Protonix and Carafate. OBJECTIVE: GENERAL: When I examined her this afternoon, she looked well and was clearly in no apparent respiratory distress, pale, but no jaundice, cyanosis or thyromegaly. No jugular venous distention. No limb edema. VITAL SIGNS: Her heart rate was 81, blood pressure 136/97, temperature was 98.6, respiratory rate 20, and oxygen saturation was 98%. HEAD, EYES, EARS, NOSE AND THROAT: Showed normocephalic, atraumatic. NECK: Supple. HEART: Showed normal first and second heart sounds. No gallop, rub or murmur. CHEST: Clear to auscultation. No crepitation or rhonchi. ABDOMEN: Distended, soft with tenderness mostly in the epigastric area. No guarding or rigidity. No organomegaly. Hernial orifices intact. Bowel sounds normal. NEUROLOGIC: She was awake, alert, responding appropriately. All her cranial nerves intact. She moves extremities without difficulty. She ambulates without assistance or assistive devices. Her intake over the last 24 hours was 7650, output was 2400. LABORATORY DATA: Her lab work this morning showed a white cell count of 5700, hemoglobin 11, hematocrit 33, MCV 86 and platelet count 283,000. Her chemistry showed a serum sodium 137, potassium 3.6, chloride 105, bicarbonate 20, anion gap of 12, BUN 8, creatinine 0.7, estimated GFR was 101 mL per minute. Her glucose is 180, calcium 7.4, magnesium 2. ASSESSMENT: 1. Diabetic ketoacidosis, resolved. 2. Hypomagnesemia, resolved. 3. Mild hypernatremia, resolved. PLAN: Brittle type 1 diabetes with recurrent admission for diabetic . I did start her on Protonix 40 mg twice a day as well as sucralfate. We will repeat all her labs tomorrow and if the blood sugar remained stable and she is tolerating her food, we will discharge her home. ANAYELI FOSS MD DR: Alyssa JOB#: [id number] / [id number]
== END 2017-07-04 19:20 | disposition left against medical advice (07) | DRG 638 ==
LOC: ER 18:44 → ICU 21:39
PROVIDERS: ADMIT Internal Medicine; ATTEND Internal Medicine
DX: E10.10 Type 1 diabetes mellitus with ketoacidosis without coma (principal); E87.0 Hyperosmolality and hypernatremia; K31.84 Gastroparesis; E10.43 Type 1 diabetes mellitus with diabetic autonomic (poly)neuropathy; E83.42 Hypomagnesemia; F15.90 Other stimulant use, unspecified, uncomplicated; F17.200 Nicotine dependence, unspecified, uncomplicated
CPT/HCPCS: 36415; 71010; 80048; 80053; 81001; 81025; 82010; 82947; 83735; 83930; 84100; 85025; 87641; 93005; 96361; 96374; 96375; J1815; J1885; J2405; J2550; J3475; J8597; 99285-25; J7030

== ENCOUNTER 2017-07-21 22:56 | Inpatient (IN) | payer SELFPAY ==
[~2017-07-21] VITALS: Ht 170.2 cm; Wt 62.1 kg
[2017-07-21] MEDS: IV NORMAL SALINE 1,000ML 1,000 ML IV SCH (23:10)
--- NOTE | 2017-07-21 23:27 | PHYS DOC ---
Past History Past Medical History: Diabetes, Other Additional Past Medical Histor: pt reports several admissions for "high blood sugar" Past Surgical History: No Surgical History Smoking: Less than 1pk/day Alcohol Use: None Drug Use: Methamphetamine Adult General Chief Complaint Chief Complaint: HYPERGLYCEMIA HPI HPI Patient is a 27 year old female who presents with complaint of vomiting and elevated blood sugar. The patient is well-known to this emergency department due to multiple visits in the past for similar complaints. The patient has history of type 1 diabetes mellitus and has required admission to the hospital on multiple occasions for treatment of DKA. Patient states that her symptoms started 2 days ago. Patient states that she has been taking her insulin as prescribed. Patient states she took 15 units of insulin prior to arrival in the emergency department after her blood sugars were measuring about 500. The patient's blood sugar was measured as "high" by EMS. Patient has had no fevers. Patient is having abdominal pain which is consistent with previous episodes of same. Patient unable to tolerate oral fluids at this time. Review of Systems Review of Systems Constitutional: Fatigue, denies fever or chills [] Eyes: Denies change in visual acuity, redness, or eye pain [] HENT: Denies nasal congestion or sore throat [] Respiratory: Denies cough or shortness of breath [] Cardiovascular: Denies chest pain or edema[] GI: Abdominal pain, nausea, vomiting, denies bloody stools or diarrhea [] : Denies dysuria or hematuria [] Musculoskeletal: Denies back pain or joint pain [] Integument: Denies rash or skin lesions [] Neurologic: Denies headache, focal weakness or sensory changes [] Current Medications Current Medications Current Medications Medications (Trade) Dose Ordered Sig/Chevy Start Time Stop Time Status Last Admin Dose Admin Sodium Chloride 1,000 ml @ 1,000 mls/hr Q1H 07/21/17 23:10 07/22/17 00:09 Allergies Allergies Allergies Coded Allergies Type Severity Reaction Last Updated Verified acetaminophen Allergy Intermediate HIVES 07/21/17 Yes adhesive tape Allergy Intermediate 07/21/17 Yes I S O L A T I O N *CONTACT* Allergy Unknown 07/21/17 Yes Physical Exam Physical Exam Constitutional: Alert, afebrile, appears ill. [] HENT: Normocephalic, atraumatic, bilateral external ears normal, oropharynx dry , no oral exudates, nose normal. [] Eyes: PERRLA, EOMI, conjunctiva normal, no discharge. [] Neck: Normal range of motion, no tenderness, supple, no stridor. [] Cardiovascular:Heart rate regular rhythm, no murmur [] Lungs & Thorax: Bilateral breath sounds clear to auscultation [] Abdomen: Bowel sounds normal, soft, diffusely tender in all 4 quadrants with no guarding or rebound tenderness, no masses, no pulsatile masses. [] Skin: Warm, dry, no erythema, no rash. [] Back: No tenderness, no CVA tenderness. [] Extremities: No tenderness, no cyanosis, no clubbing, ROM intact, no edema. [] Neurologic: Alert and oriented X 3, normal motor function, normal sensory function, no focal deficits noted. [] Current Patient Data Vital Signs Vital Signs Date Time Temp Pulse Resp B/P (MAP) Pulse Ox O2 Delivery O2 Flow Rate FiO2 07/21/17 23:30 97.7 124 20 98 Room Air Lab Results Laboratory Tests Test 07/21/17 22:59 07/21/17 23:11 07/21/17 23:26 07/21/17 23:46 Urine Collection Type Void Urine Color Yellow Urine Clarity Cloudy Urine pH 5.5 Urine Specific [place] >=1.030 Urine Protein 30 mg/dl Urine Glucose (UA) 500 mg/dL Urine Ketones (Stick) >=160 mg/dL Urine Blood Trace Urine Nitrite Neg Urine Bilirubin Neg Urine Urobilinogen Dipstick 0.2 mg/dL Urine Leukocyte Esterase Neg Urine RBC Occ /HPF Urine WBC 5-10 /HPF Urine Squamous Epithelial Cells Many /LPF Urine Amorphous Sediment Present /HPF Urine Bacteria Many /HPF Urine Mucus Slight /LPF Glucose (Fingerstick) 484 mg/dL Bedside Urine HCG, Qualitative hcg negative White Blood Count 6.6 x10^3/uL Red Blood Count 4.66 x10^6/uL Hemoglobin 13.4 g/dL Hematocrit 41.2 % Mean Corpuscular Volume 88 fL Mean Corpuscular Hemoglobin 29 pg Mean Corpuscular Hemoglobin Concent 32 g/dL Red Cell Distribution Width 14.8 % Platelet Count 401 x10^3/uL Neutrophils (%) (Auto) 59 % Lymphocytes (%) (Auto) 33 % Monocytes (%) (Auto) 7 % Eosinophils (%) (Auto) 1 % Basophils (%) (Auto) 1 % Neutrophils # (Auto) 3.8 x10^3uL Lymphocytes # (Auto) 2.1 x10^3/uL Monocytes # (Auto) 0.4 x10^3/uL Eosinophils # (Auto) 0.1 x10^3/uL Basophils # (Auto) 0.1 x10^3/uL Sodium Level 127 mmol/L Potassium Level 4.9 mmol/L Chloride Level 90 mmol/L Carbon Dioxide Level 12 mmol/L Anion Gap 25 Blood Urea Nitrogen 30 mg/dL Creatinine 1.1 mg/dL Estimated GFR (Cockcroft-Gault) 60.0 BUN/Creatinine Ratio 27 Glucose Level 456 mg/dL Calcium Level 9.0 mg/dL Total Bilirubin 0.6 mg/dL Aspartate Amino Transf (AST/SGOT) 15 U/L Alanine Aminotransferase (ALT/SGPT) 22 U/L Alkaline Phosphatase 112 U/L Total Protein 8.6 g/dL Albumin 4.2 g/dL Albumin/Globulin Ratio 1.0 Lipase 38 U/L Current Medications Medications (Trade) Dose Ordered Sig/Chevy Route PRN Reason Start Time Stop Time Status Last Admin Dose Admin Sodium Chloride 1,000 ml @ 1,000 mls/hr Q1H IV 07/21/17 23:10 07/22/17 00:09 DC 07/22/17 00:28 Laboratory Tests Test 07/21/17 23:11 Glucose (Fingerstick) 484 mg/dL (70-99) H EKG EKG Not performed[] Radiology/Procedures Radiology/Procedures Not performed[] Course & Med Decision Making Course & Med Decision Making Pertinent Labs and Imaging studies reviewed. (See chart for details) Patient started on IV fluids and Phenergan in the emergency department. Patient lab work consistent with acute DKA. Patient will require admission to the hospital for treatment with IV fluids and insulin drip to correct acidosis and control blood sugars. The patient will be admitted to ICU under the care of Dr. Pereira who I spoke with and accepted care patient in hospital. Critical care time excluding procedures: 40 minutes Dragon Disclaimer Dragon Disclaimer This chart was dictated in whole or in part using Voice Recognition software in a busy, high-work load, and often noisy Emergency Department environment. It may contain unintended and wholly unrecognized errors or omissions. Departure Departure: Impression: Primary Impression: Diabetic ketoacidosis Disposition: ADMITTED INPATIENT Admitting Physician: Justin Pereira Condition: GUARDED Referrals: DANIAL VINCENT (PCP) Problem Qualifiers Primary Impression: Diabetic ketoacidosis Diabetes mellitus type: type 1 Diabetes mellitus complication detail: without coma Qualified Codes: E10.10 - Type 1 diabetes mellitus with ketoacidosis without coma SONY WEAVER MD Jul 21, 2017 23:27
[2017-07-21 23:55] LABS: BILIRUBIN,URINE NEG (NEG); CLARITY,URINE CLOUDY; COLOR,URINE YELLOW; GLUCOSE,URINE 500 mg/dL (NEG); NITRITE,URINE NEG (NEG); UROBILINOGEN,URINE 0.2 mg/dL (0.2 mg/dL)
[2017-07-21 23:56] LABS: AMORPHOUS SEDIMENT,UR PRESENT /HPF; BACTERIA,URINE MANY /HPF (0-FEW); RBC,URINE OCC /HPF (0-2); SQUAMOUS EPITHELIAL CELL,UR MANY /LPF
[2017-07-21 23:59] LABS: BASO # 0.1 x10^3/uL (0.0-0.2); BASO % 1 % (0-3); EOS # 0.1 x10^3/uL (0.0-0.7); EOS % 1 % (0-3); HEMATOCRIT 41.2 % (36.0-47.0); HEMOGLOBIN 13.4 g/dL (12.0-15.5); LYMPH # 2.1 x10^3/uL (1.0-4.8); LYMPH % 33 % (24-48); MEAN CORPUSCULAR HEMOGLOBIN 29 pg (25-35); MEAN CORPUSCULAR HGB CONC 32 g/dL (31-37); MEAN CORPUSCULAR VOLUME 88 fL (79-100); MONO # 0.4 x10^3/uL (0.0-1.1); MONO % 7 % (0-9); NEUT # 3.8 x10^3uL (1.8-7.7); NEUT % 59 % (31-73); PLATELET COUNT 401 x10^3/uL (140-400); RED BLOOD COUNT 4.66 x10^6/uL (3.50-5.40); RED CELL DISTRIBUTION WIDTH 14.8 % (11.5-14.5); WHITE BLOOD COUNT 6.6 x10^3/uL (4.0-11.0)
[2017-07-22] VITALS (10 sets, daily range): BP systolic 105–114; BP diastolic 60–76
[2017-07-22 00:11] LABS: ALBUMIN 4.2 g/dL (3.4-5.0); CREATININE 1.1 mg/dL (0.6-1.0); POTASSIUM 4.9 mmol/L (3.5-5.1); TOTAL BILIRUBIN 0.6 mg/dL (0.2-1.0); TOTAL PROTEIN 8.6 g/dL (6.4-8.2)
[2017-07-22] MEDS: IV NORMAL SALINE 1,000ML 1,000 ML IV SCH ×3 (00:28→02:35)
[2017-07-22] MEDS ORDERED: ONDANSETRON PF 4 MG/2 ML VIAL. IV PRN (00:30)
[2017-07-22] MEDS ORDERED: POTASSIUM CHLORIDE 10MEQ 100 ML IV PRN (00:30)
[2017-07-22] MEDS ORDERED: INSULIN REGULAR 150 UNIT in 0.9 % SODIUM CHLORIDE 150ML 150 ML IV PRN (00:30)
[2017-07-22 00:53] LABS: BARBITURATES NEG (NEG); BENZODIAZEPINES NEG (NEG); CANNABINOIDS NEG (NEG); COCAINE NEG (NEG); METHADONE NEG (NEG); OPIATES NEG (NEG); PHENCYCLIDINE NEG (NEG)
[2017-07-22 00:59] LABS: AMPHETAMINE/METHAMPHETAMINE NEG (NEG)
[2017-07-22] MEDS ORDERED: INSULIN REGULAR 100 UNIT/ML 10ML VIAL. ONE (00:59)
[2017-07-22] MEDS ORDERED: 0.9 % SODIUM CHLORIDE 150ML 150 ML ONE (00:59)
[2017-07-22] MEDS: IV DEXTROSE 5 %-0.45 % NACL 1,000 ML IV SCH ×2 (03:15→09:59)
[2017-07-22 06:46] LABS: BASO # 0.1 x10^3/uL (0.0-0.2); BASO % 1 % (0-3); EOS % 1 % (0-3); HEMATOCRIT 36.7 % (36.0-47.0); LYMPH # 2.2 x10^3/uL (1.0-4.8); LYMPH % 33 % (24-48); MEAN CORPUSCULAR HEMOGLOBIN 29 pg (25-35); MEAN CORPUSCULAR HGB CONC 33 g/dL (31-37); MEAN CORPUSCULAR VOLUME 89 fL (79-100); MONO # 0.6 x10^3/uL (0.0-1.1); MONO % 9 % (0-9); NEUT # 3.8 x10^3uL (1.8-7.7); NEUT % 56 % (31-73); PLATELET COUNT 346 x10^3/uL (140-400); RED BLOOD COUNT 4.13 x10^6/uL (3.50-5.40); RED CELL DISTRIBUTION WIDTH 14.7 % (11.5-14.5); WHITE BLOOD COUNT 6.7 x10^3/uL (4.0-11.0)
[2017-07-22 06:49] LABS: CREATININE 0.8 mg/dL (0.6-1.0); GFR 86.7; POTASSIUM 4.1 mmol/L (3.5-5.1)
[2017-07-22 15:25] LABS: CALCIUM 8.3 mg/dL (8.5-10.1); CREATININE 0.9 mg/dL (0.6-1.0); GFR 75.7; MAGNESIUM 1.7 mg/dL (1.8-2.4); POTASSIUM 3.6 mmol/L (3.5-5.1)
[2017-07-22] MEDS ORDERED: INSULIN REGULAR 100 UNIT/ML 10ML VIAL. IV ONE (15:30)
--- NOTE | 2017-07-22 18:35 | SSS ---
ADMIT DATE: 07/22/2017 HISTORY OF PRESENT ILLNESS: The patient is a 27-year-old female patient who is known to have type 1 diabetes is breathless with recurrent episodes of diabetic ketoacidosis yet again came with a complaint of vomiting and elevated blood sugar. She obviously has been in this hospital and Emergency Room numerous times with similar complaints. Her blood sugar was elevated at 484. She had dilutional hyponatremia and dehydration and was admitted, given IV fluid and insulin drip and she did well. Her blood sugar is well controlled. The patient was tolerating her diet and has no further nausea or vomiting. Her lab work has normalized. Her serum sodium was 136, potassium 3.6, chloride 104, bicarbonate 21, anion gap of 11 and a decision was made to discharge her home to continue on her home medication. PAST MEDICAL HISTORY: Significant for Brittle type 1 diabetes, poorly controlled diabetic gastroparesis, diabetic peripheral neuropathy, multiple episodes of DKA requiring hospitalization, chronic hypomagnesemia, and chronic methamphetamine abuse. PAST SURGICAL HISTORY: Significant for Port-A-Cath placement and removal, incision and drainage of an abscess in the left axillary area. ALLERGIES: She is allergic to TYLENOL and ADHESIVE TAPE. FAMILY HISTORY: Unremarkable. SOCIAL HISTORY: She is single, does not smoke, apparently quit using amphetamine. She lives with her mom. She is apparently started working. MEDICATIONS: She is currently on following medications: She is on buspirone XL 150 mg daily, dicyclomine 20 mg 4 times a day, magnesium oxide 400 mg 3 times a day, metoclopramide 510 mg 4 times a day before meals and bedtime, Zofran 4 mg more ODT sublingually every 4 hours, Protonix 40 mg once a day. She is on detemir insulin 15 units b.i.d. and NovoLog FlexPen as insulin sliding scale. PHYSICAL EXAMINATION: GENERAL: On arrival to the Emergency Room, the patient was slightly pale, but no jaundice, cyanosis or thyromegaly. No jugular venous distention. No limb edema. VITAL SIGNS: Her heart rate was 124, blood pressure was 122/83, temperature was 97.7, respiratory rate was 20, and oxygen saturation was 98% on room air. HEAD, EYES, EARS, NOSE AND THROAT: Showed normocephalic, atraumatic. NECK: Supple. HEART: Showed normal first and second heart sounds with no gallop, rub or murmur. CHEST: Clear to auscultation. No crepitation or rhonchi. ABDOMEN: Distended, soft, nontender. NEUROLOGIC: She is awake, alert, responding appropriately. Cranial nerves intact. EXTREMITIES: She moves extremities without difficulty. LABORATORY DATA: Her lab work showed a white cell count of 6600, hemoglobin 13, hematocrit 41, MCV 88 and platelet count of 401,000. Her chemistry showed that her serum sodium was 127, potassium 4.9, chloride 90, bicarbonate 12, anion gap of 25, BUN 30, creatinine 1.1, estimated GFR was 60 mL per minute, glucose was 484, calcium was 9, phosphorus was 4.2. Total bilirubin, AST, ALT, alkaline phosphatase were normal. Total protein was 8.6, albumin was 4.1. Urinalysis showed the urine was cloudy with a pH of 5.5, specific gravity of 1.030. There was trace of protein, large amount of glucose more than 160 mg of ketones; however, it was negative for nitrite and leukocyte esterase and urine test was negative. Her toxic screen was negative. ASSESSMENT AND PLAN: The patient was basically admitted with diabetic ketoacidosis, started on IV fluid, and IV insulin drip. She did extremely well. Her blood sugar has been well controlled and anion gap is back to normal. She is tolerating her diet and was discharged home to continue on her home medication. FINAL DISCHARGE DIAGNOSES: 1. Diabetic ketoacidosis. 2. Brittle type 1 diabetes. 3. Diabetic gastroparesis. 4. Chronic hypomagnesemia. ANAYELI FOSS MD DR: JOSÉ/regina JOB#: [id number] / [id number]
== END 2017-07-22 16:22 | disposition home or self-care (01) | DRG 638 ==
LOC: ER 22:56 → ICU 07-22 00:23
PROVIDERS: ADMIT Internal Medicine; ATTEND Internal Medicine
DX: E10.10 Type 1 diabetes mellitus with ketoacidosis without coma (principal); E87.1 Hypo-osmolality and hyponatremia; K31.84 Gastroparesis; E83.42 Hypomagnesemia; E10.42 Type 1 diabetes mellitus with diabetic polyneuropathy; E10.43 Type 1 diabetes mellitus with diabetic autonomic (poly)neuropathy; E86.0 Dehydration; F17.210 Nicotine dependence, cigarettes, uncomplicated; F15.10 Other stimulant abuse, uncomplicated; Z79.4 Long term (current) use of insulin
CPT/HCPCS: 36415; 80048; 80053; 80307; 81001; 81025; 82010; 82947; 83690; 83735; 83930; 84100; 85025; 87086; 87641; 96360; 96361; J1815; 99291-25; G0479; J7030

== ENCOUNTER 2017-07-26 15:53 | Inpatient (IN) | payer SELFPAY ==
[~2017-07-26] VITALS: Ht 170.2 cm; Wt 68.1 kg
[2017-07-26] MEDS ORDERED: IV NORMAL SALINE 1,000ML 1,000 ML IV ONE ×2 (16:20→16:30)
[2017-07-26] MEDS ORDERED: ONDANSETRON PF 4 MG/2 ML VIAL. IV ONE (16:20)
[2017-07-26] MEDS ORDERED: IV NORMAL SALINE 1,000ML 1,000 ML IV SCH (17:00)
--- NOTE | 2017-07-26 17:08 | EKG ---
[address] [address] Test Date: 2017-07-26 Test Time: 16:49:12 Pat Name: CHALO RAYMUNDO Department: Room: Gender: F Quotation Clerk: CORNEL : 1990 Requested By: CEDRIC MELENDEZ Order Number: [id number] Reading MD: Alex Espinoza Measurements Intervals [place] Rate: 133 P: 63 MO: 132 QRS: 71 QRSD: 80 T: 37 QT: 284 QTc: 424 Interpretive Statements SINUS TACHYCARDIA Electronically Signed On 07-27-2017 16:41:09 CDT by Alex Espinoza
[2017-07-26] MEDS ORDERED: MORPHINE SULFATE 4 MG/ML DISP.SYRIN. IV/SQ PRN (17:30)
[2017-07-26 17:32] LABS: BASO # 0.1 x10^3/uL (0.0-0.2); BASO % 1 % (0-3); EOS % 0 % (0-3); HEMATOCRIT 42.1 % (36.0-47.0); HEMOGLOBIN 13.5 g/dL (12.0-15.5); LYMPH # 1.2 x10^3/uL (1.0-4.8); LYMPH % 17 % (24-48); MEAN CORPUSCULAR HEMOGLOBIN 29 pg (25-35); MEAN CORPUSCULAR HGB CONC 32 g/dL (31-37); MEAN CORPUSCULAR VOLUME 91 fL (79-100); MONO # 0.3 x10^3/uL (0.0-1.1); MONO % 4 % (0-9); NEUT # 5.4 x10^3uL (1.8-7.7); NEUT % 77 % (31-73); PLATELET COUNT 349 x10^3/uL (140-400); RED BLOOD COUNT 4.64 x10^6/uL (3.50-5.40)
--- NOTE | 2017-07-26 17:32 | PHYS DOC ---
Text Text 1800- See Dr. Melendez chart for details.- Pt. still dehydrated, nauseated, currently refuses ABG. Pt. has recieved 2 Liters of NS, 20 u of R. Insulin prior to arrival. Pt, Hypo natremic, hyperkalemia, sugar recheck 530 and still tachy cardiac. Discussed presentation, testing and tx. plan with Dr. Grigsby.- Advised admit, toradol for pain, no narcotics. Impression: 1, DM with Hyperglcemia- DKA 2. Dehydration with Hyponatremia and Hyperkalemia 3. Tachycardia 4. Hx. of Non-compliance 5. Tobacco Use 6. Hx. of polysubstance abuse (YELENA CAMILO MD) General Chief Complaint: HYPERGLYCEMIA Stated Complaint: NAUSEA/VOMITING-HYPERGLYCEMIC Time Seen by MD: 16:41 Source: patient, old records Exam Limitations: no limitations Problems: (CEDRIC MELENDEZ DO) Time Seen by MD: 18:17 Problems: (YELENA CAMILO MD) History of Present Illness Initial Comments Pt is 27/F to ED with hyperglycemia and n/v. Pt well known to this facility with very brittle DM1 and noncompliance with diet /meds requiring numerous ED visits/hospitalizations. Pt was inpatient [facility] for DKA. States this morning her glucometer read "high" and thru the day she' s had worsening abdominal discomfort, n/v. Comes to the department retching and tachycardic, fruity breath odor. Symptoms are identical to her prior numerous DKA admissions. No cp/sob, no blood in emesis, no bowel/bladder changes. She has history of methamphetamine addiction, she denies recent use. Timing/Duration: 4-6 hours Severity: severe Modifying Factors: improves with other Associated Symptoms: headaches, nausea/vomiting, other (CEDRIC MELENDEZ DO) Allergies: Coded Allergies: acetaminophen (Verified Allergy, Intermediate, HIVES, 07/21/17) "WHEN I HAD MY ANKLE BX THEY GAVE ME TYLENOL AND I GOT HIVES ON MY LEG." adhesive tape (Verified Allergy, Intermediate, 07/21/17) I S O L A T I O N *CONTACT* (Verified Allergy, Unknown, 07/21/17) +MRSA nares 05-15-17 Past Medical History Medical History: diabetes, other (Very brittle DM1 with noncompliance and numerous ED visits/hospitalizations for DKA, DM neuropathy and gastroparesis, polysubstance abuse) Surgical History: noncontributory (portacath placement/removal, I/D left axillary abscess) (CEDRIC MELENDEZ DO) Social History Smoker: non-smoker Alcohol: none Drugs: other (h/o methamphetamine addiction denies recent use) (CEDRIC MELENDEZ DO) Review of Systems Constitutional: denies chills, denies diaphoresis, denies fever, malaise Respiratory: denies cough, denies shortness of breath, denies wheezing Cardiovascular: denies chest pain, denies palpitations, denies syncope Gastrointestinal: see HPI Genitourinary: denies dysuria, frequency, denies hematuria Musculoskeletal: denies back pain, denies joint swelling, denies neck pain Psychiatric/Neurological: headache, denies numbness, denies paresthesia, denies weakness Hematologic/Lymphatic: denies blood clots, denies easy bleeding, denies easy bruising (CEDRIC MELENDEZ DO) Physical Exam General Appearance: mild distress (retching thru exam, no emesis noted) Eyes: bilateral eye normal inspection, bilateral eye PERRL, bilateral eye EOMI Ear, Nose, Throat: hearing grossly normal, normal ENT inspection, normal pharynx (dry membranes) Neck: non-tender, supple Respiratory: normal breath sounds, no respiratory distress Cardiovascular: normal peripheral pulses, no edema, tachycardia Gastrointestinal: soft (ND, diffuse TTP no r/g/mass, BS normal) Back: no vertebral tenderness, CVA tenderness (R) Extremities: non-tender, normal inspection Neurologic/Psychiatric: manager internal II-XII nml as tested, no motor/sensory deficits, alert, oriented x 3 Skin: pallor (poor turgor) (CEDRIC MELENDEZ DO) Orders, Labs, Meds EKG: sinus tachycardia 133 bpm, contour abnormality with peaked T waves anteriorly no STEMI criteria. Interpreted by me. Pt signed out to Dr Camilo at 1800 shift change. See his documentation for further results/disposition. (CEDRIC MELENDEZ DO) CEDRIC MELENDEZ DO Jul 26, 2017 17:32 YELENA CAMILO MD Jul 26, 2017 18:57
[2017-07-26 17:56] LABS: ALBUMIN 4.3 g/dL (3.4-5.0); ALBUMIN/GLOBULIN RATIO 1.1 (1.0-1.7); CALCIUM 8.8 mg/dL (8.5-10.1); TOTAL PROTEIN 8.3 g/dL (6.4-8.2)
[2017-07-26 17:57] LABS: POTASSIUM 5.2 mmol/L (3.5-5.1); TOTAL BILIRUBIN 0.5 mg/dL (0.2-1.0)
[2017-07-26] MEDS ORDERED: FAMOTIDINE 20 MG/2 ML VIAL IVP ONE (18:00)
[2017-07-26] MEDS ORDERED: PROMETHAZINE 25 MG in IV NORMAL SALINE 50ML 50 ML IV PRN (18:00)
[2017-07-26] MEDS ORDERED: INSULIN REGULAR 100 UNIT/ML 10ML VIAL. IV ONE (18:30)
[2017-07-26] MEDS ORDERED: INSULIN REGULAR 150 UNIT in 0.9 % SODIUM CHLORIDE 150ML 150 ML IV ONE (18:45)
[2017-07-26 19:38] VITALS: BP 109/66
[2017-07-26] MEDS ORDERED: INSULIN REGULAR 150 UNIT in 0.9 % SODIUM CHLORIDE 150ML 150 ML IV PRN (20:00)
[2017-07-26] MEDS: IV NORMAL SALINE 1,000ML 1,000 ML IV SCH (21:00)
[2017-07-26 22:53] VITALS: BP 105/64
[2017-07-26] MEDS: KETOROLAC 30 MG/ML VIAL. IV PRN (22:59)
[2017-07-27] MEDS: IV NORMAL SALINE 1,000ML 1,000 ML IV SCH ×3 (00:54→13:15)
[2017-07-27 05:12] LABS: BARBITURATES NEG (NEG); BENZODIAZEPINES NEG (NEG); CANNABINOIDS NEG (NEG); COCAINE NEG (NEG); METHADONE NEG (NEG); OPIATES POS (NEG); PHENCYCLIDINE NEG (NEG)
[2017-07-27 05:14] LABS: AMPHETAMINE/METHAMPHETAMINE POS (NEG)
[2017-07-27 05:26] LABS: BACTERIA,URINE FEW /HPF (0-FEW); BILIRUBIN,URINE NEG (NEG); CLARITY,URINE HAZY; COLOR,URINE STRAW; GLUCOSE,URINE 500 mg/dL (NEG); HYALINE CASTS, URINE OCC /HPF; NITRITE,URINE NEG (NEG); RBC,URINE OCC /HPF (0-2); SQUAMOUS EPITHELIAL CELL,UR FEW /LPF; UROBILINOGEN,URINE 0.2 mg/dL (0.2 mg/dL); WBC,URINE OCC /HPF (0-4)
[2017-07-27 05:55] VITALS: BP 119/75
[2017-07-27] MEDS ORDERED: DEXTROSE 50% 25 GM / 50ML DISP.SYRIN. IV ONE (06:38)
[2017-07-27] MEDS ORDERED: DEXTROSE 50% 25 GM / 50ML DISP.SYRIN. IV PRN (06:45)
[2017-07-27 06:46] LABS: BASO # 0.1 x10^3/uL (0.0-0.2); BASO % 1 % (0-3); EOS # 0.1 x10^3/uL (0.0-0.7); EOS % 1 % (0-3); HEMATOCRIT 31.7 % (36.0-47.0); HEMOGLOBIN 10.4 g/dL (12.0-15.5); LYMPH # 3.2 x10^3/uL (1.0-4.8); LYMPH % 39 % (24-48); MEAN CORPUSCULAR HEMOGLOBIN 29 pg (25-35); MEAN CORPUSCULAR HGB CONC 33 g/dL (31-37); MEAN CORPUSCULAR VOLUME 88 fL (79-100); MONO # 0.7 x10^3/uL (0.0-1.1); MONO % 8 % (0-9); NEUT # 4.2 x10^3uL (1.8-7.7); NEUT % 51 % (31-73); PLATELET COUNT 283 x10^3/uL (140-400); RED BLOOD COUNT 3.59 x10^6/uL (3.50-5.40); RED CELL DISTRIBUTION WIDTH 14.6 % (11.5-14.5); WHITE BLOOD COUNT 8.2 x10^3/uL (4.0-11.0)
[2017-07-27 06:52] LABS: ALBUMIN 3.1 g/dL (3.4-5.0); CREATININE 0.8 mg/dL (0.6-1.0); GFR 86.7; MAGNESIUM 1.6 mg/dL (1.8-2.4); POTASSIUM 3.7 mmol/L (3.5-5.1); TOTAL BILIRUBIN 0.4 mg/dL (0.2-1.0); TOTAL PROTEIN 6.3 g/dL (6.4-8.2)
--- NOTE | 2017-07-27 07:03 | ACF ---
Admit Criteria Forms Admit Criteria Forms Admit Criteria Forms GENERAL ADMISSION CRITERIA (Place 'X' for any and all applicable criteria): Admission is indicated for ANY ONE of the following: [ ]I. Hemodynamic instability as indicated by ANY ONE of the following(1)(2) (3)(4)(5): [ ]a) Vital sign abnormality not readily corrected by appropriate treatment within 12 to 24 hours indicated by ANY ONE of the following: [ ]i) Hypotension [ ]ii) Symptomatic Tachycardia unresponsive to treatment (eg , analgesia, fluids, sedation as indicated) [ ]iii) Orthostatic vital sign changes unresponsive to treatment (eg, fluids) [ ]b) Vital sign abnormality that is severe indicated by ANY ONE of the following: [ ]i) Inadequate perfusion indicated by ANY ONE of the following: [ ]1) Lactic acidosis (greater than 2 mmol/L) [ ]2) New abnormal capillary refill (greater than 3 seconds) [ ]3) Other metabolic acidosis (arterial pH less than 7.35) not otherwise explained [ ]4) Reduced urine output [ ]5) Altered mental status [ ]6) Myocardial Ischemia [ ]v) Mean arterial pressure[A] less than 60 mm Hg [ ]vi) Mean arterial pressure[A] less than 70 mm Hg after 30 minutes of appropriate treatment (eg, fluid resuscitation) [ ]vii) IV inotropic or vasopressor medication required to maintain adequate blood pressure or perfusion [ ]viii) Sustained heart rate greater than 120 beats per minute in adult or child 6 years or older[B]] [ ]II. Hypertension requiring inpatient treatment as indicated by ANY ONE of the following(6)(7)(8): [ ]a) SBP greater than 220 mm Hg or DBP greater than 120 mm Hg despite treatment [ ]b) SBP greater than 140 mm Hg or DBP greater than 100 mm Hg with evidence of acute end organ damage as indicated by ANY ONE of the following: [ ]i) Encephalopathy [ ]ii) Acute renal failure as indicated by new onset of ANY ONE of the following(9)(10)(11)(12)(13): [ ]1) A 3-fold rise in serum creatinine from baseline [ ]2) Serum creatinine greater than 4 mg/dL ( 354 micromoles/L) with acute rise greater than 0.5 mg/dL (44.2 micromoles/L) [ ]3) Reduction of more than 75% in estimated glomerular filtration rate from baseline [ ]4) Estimated glomerular filtration rate less than 35 mL/min/1.73m2 (0.59 mL/sec/1.73m2) in child up to 18 years of age [ ]5) Cessation of urine output indicated by ALL of the following: [ ]A. Adequate volume status [ ]B. Inadequate urine output as indicated by ANY ONE of the following: [ ]a. Urine output less than 0.3 mL/kg/hr for 24 hours [ ]b. Anuria (urine output less than 0.1 mL/kg/hr) for 12 hours [ ]iii) Aortic dissection [ ]iv) Myocardial ischemia [ ]v) Left ventricular heart failure [ ]vi) Retinal hemorrhage [ ]vii) Other significant finding [ ]c) Hypertension in child requiring inpatient treatment as indicated by ALL of the following(14)(15)(16): [ ]i) Outpatient treatment not effective, not available, or not appropriate [ ]ii) SBP or DBP greater than 95th percentile for age [ ]iii) Evidence of acute end organ damage as indicated by ANY ONE of the following: [ ]1) Altered mental status [ ]2) Acute renal failure as indicated by new onset of ANY ONE of the following(9)(10)(11)(12)(13): [ ]A. A 3-fold rise in serum creatinine from baseline [ ]B. Serum creatinine greater than 4 mg/dL (354 micromoles/L) with acute rise greater than 0.5 mg/dL (44.2 micromoles/L) [ ]C. Reduction of more than 75% in estimated glomerular filtration rate from baseline [ ]D. Estimated glomerular filtration rate less than 35 mL/min/1.73m2 (0.59 mL/sec/1.73m2)in child up to 18 years of age [ ]E. Cessation of urine output indicated by ALL of the following: [ ]a. Adequate volume status [ ]b. Inadequate urine output as indicated by ANY ONE of the following: [ ]1) Urine output less than 0.3 mL/kg/hr for 24 hours [ ]2) Anuria (urine output less than 0.1 mL/kg/hr) for 12 hours [ ]3) Severe headache [ ]4) Visual disturbance [ ]5) Retinal hemorrhage [ ]6) Other significant finding [ ]III. Acute cardiac or peripheral ischemia as indicated by ANY ONE of the following: [ ]a) Acute coronary syndrome(17)(18) [ ]b) Acute peripheral ischemia (eg, pulseless, cool, mottled, or cyanotic extremity)(19) [ ]IV. Cardiac arrhythmias or findings of immediate concern indicated by ANY ONE of the following(20)(21): [ ]a) Heart rhythms that are inherently dangerous or unstable indicated by ANY ONE of the following(22)(23)(24): [ ]i) Resuscitated ventricular fibrillation or cardiac arrest [ ]ii) Ventricular escape rhythm [ ]iii) Sustained ventricular tachycardia (30 seconds or more of ventricular rhythm at greater than 100 beats per minute) [ ]iv) Nonsustained ventricular tachycardia and ANY ONE of the following: [ ]1) Suspected cardiac ischemia as cause or consequence of ventricular tachycardia [ ]2) In setting of acute myocarditis [ ]b) Unstable cardiac conduction defects indicated by ANY ONE of the following(24)(25)(26): [ ]i) Type II second-degree atrioventricular block [ ]ii) Third-degree atrioventricular block [ ]iii) New-onset left bundle branch block with suspected myocardial ischemia [ ]c) Any heart rhythm and ANY ONE of the following(22)(23)(27)(28)( 29): [ ] i) Continuous long-term ECG monitoring needed (eg, initiation of drug requiring monitoring for more than 24 hours) [ ] ii) Patient has automatic implanted cardioverter defibrillator that is repeatedly firing, malfunctioning, or in need of immediate adjustment of settings beyond the scope of ambulatory or observation care. [ ]d) Heart rhythms of concern due to ANY ONE of the following: [ ]i) Hypotension [ ]ii) Respiratory distress [ ]iii) Association with other significant symptoms (eg, bradycardia with syncope or ongoing dizziness, supraventricular tachycardia with chest pain) (27)(28) (30) [ ] V. Severe heart failure as indicated by ANY ONE of the following ( 31)(32): [ ]a) Respiratory distress [ ]b) Hypotension [ ]c) Anasarca (refractory to outpatient therapy) [ ]d) Cardiac arrhythmias of immediate concern [ ]e) Myocardial ischemia [ ]. Respiratory abnormalities, including ANY ONE of the following(33)(34) (35)(36): [ ]a) Respiratory rate greater than 30 breaths per minute unresponsive to treatment [A] [ ]b) New saturation of arterial oxygen less than 90% [ ]c) New partial pressure of carbon dioxide greater than 44 mm Hg ( 5.9 kPa) [ ]d) Supplemental oxygen or respiratory treatments needed that are new or not performable at other levels of care [ ]e) New-onset cyanosis [ ]f) Inability to protect airway [ ]g) Chronic lung disease with severe deterioration (not responsive to emergency and observation care treatment as appropriate) as indicated by ANY ONE of the following(34)(36 ): [ ]i) SaO2 5% below baseline in patient with chronic hypoxemia [ ]ii) New requirement for supplemental oxygen to keep SaO2 at baseline or acceptable level [ ]iii) Required supplemental oxygen performable only in acute inpatient setting [ ]iv) Severe airflow or ventilation abnormalities [ ]v) Previously mobile patient unable to walk between rooms [ ]vi Inability to eat or sleep due to dyspnea [ ]vii) Rapid rate of exacerbation onset [ ]viii) Altered mental status ]VII. Severe airflow or ventilation abnormalities (not responsive to emergency and observation care treatment as appropriate) as indicated by ANY ONE of the following(33)(34)(35)(37): [ ]a) PCO2 greater than 42 mm Hg (5.6 kPa) and pH less than 7.35 (new ) [ ]b) Documented PCO2 increased more than 5 mm Hg (0.7 kPa) from disease baseline [ ]c) Airflow measurements [B] less than 60% of previous best or predicted (eg, peak expiratory flow rate less than 300 L/minute) despite intensive emergent treatment [C] [ ]d) Required respiratory treatments that are performable only in acute inpatient setting [ ]VIII. Impending or actual respiratory arrest ( Also use Respiratory Failure GRG for severe respiratory disease and long-term mechanical ventilation patients) [ ]IX. Neurologic abnormalities, including ANY ONE of the following: [ ]a) New findings that suggest ANY ONE of the following: [ ]i) [employer] infection(38) [ ]ii) Cerebral bleeding, ischemia, or vasospasm(39)(40) [ ]iii) Increased intracranial pressure, hydrocephalus, or cerebral edema(41)(42)(43) [ ]iv) Spinal cord injury(44) [ ]b) Uncontrolled seizures(45) [ ]c) New-onset coma (eg, [place] coma scale score less than 9) or unexplained abnormal mental status (eg, [place] coma scale score less than 14) [D](41)(46)(47) [ ]X. New-onset severe neurologic findings requiring inpatient care; examples include(42)(48)(49): [ ]a) Papilledema [ ]b) Cerebral edema [ ]c) Mass effect on CT scan [ ]XI. Suspected acute intra-abdominal process with peritoneal signs, abdominal mass, or similar findings (50)(51)(52) [X]XII. Severe physiologic disorder remaining after emergency or observation level care (as appropriate) as indicated by ANY ONE of the following (53): [ ]a) Significant dehydration [X]b) Diabetic ketoacidosis [ ]c) Hyperglycemic hyperosmolar state (eg, osmolality greater than 320 mOsm/kg (mmol/kg) [ ]d) Hypoglycemia [ ]e) Other (new) acid-base disorder with pH less than 7.35 or greater than 7.5(54) [ ]f) Thyroid storm (55) [ ]g) Myxedema coma (55) [ ]XIII. Abdominal abnormalities with ANY ONE of the following(56)(57): [ ]a) Absent bowel sounds with complete ileus [ ]b) Signs of intestinal obstruction or peritonitis [E] [ ]c) Nausea and vomiting that cannot be controlled with outpatient or observation care [ ]XIV. Acute renal failure as indicated by new onset of ANY ONE of the following(9)(10)(11)(12)(13): [ ]a) A 3-fold rise in serum creatinine from baseline [ ]b) Serum creatinine greater than 4 mg/dL (354 micromoles/L) with acute rise greater than 0.5 mg/dL (44.2 micromoles/L) [ ]c) Reduction of more than 75% in estimated glomerular filtration rate from baseline [ ]d) Estimated glomerular filtration rate less than 35 mL/min/ 1.73m2 (0.59 mL/sec/1.73m2) in child up to 18 years of age [ ]e) Cessation of urine output indicated by ALL of the following: [ ]i) Adequate volume status [ ]ii) Inadequate urine output as indicated by ANY ONE of the following: [ ]1) Urine output less than 0.3 mL/kg/hr for 24 hours [ ]2) Anuria (urine output less than 0.1 mL/kg/hr) for 12 hours [ ]XV. Significant uremic complications as indicated by ANY ONE of the following(58)(59)(60): [ ]a) Outpatient therapy is ineffective or not feasible for ANY ONE of the following: [ ]i) Severe heart failure [ ]ii) Severehypertension [ ]iii) Pleural effusion [ ]iv) Pericarditis or pericardial effusion [ ]b) Cardiac arrhythmias of immediate concern [ ]c) Intractable nausea or vomiting [ ]d) Recurrent seizures [ ]e) Encephalopathy [ ]f) Bleeding abnormalities (eg, platelet dysfunction) with active (eg, gastrointestinal) bleeding [ ]g) Dialysis indicated before long-term access or ambulatory arrangements can be made [ ]h) Significant metabolic or electrolyte abnormalities (eg, severe acidosis or hyperkalemia) [ ]XVI. High fever or other high-risk infection situation as indicated by ANY ONE of the following(61)(62)(63)(64): [ ]a) Outpatient and observation care antimicrobial treatment unavailable, not effective, or not appropriate [ ]b) Documented bacteremia [ ]c) Temperature greater than 40.5 degrees C (104.9 degrees F) ( oral) [ ]d) Temperature greater than 39.5 degrees C (103.1 degrees F) ( oral) or less than 36 degrees C (96.8 degrees F) (rectal) that does not respond to e treatment and observation care [ ] XVII. Temperature less than 95 degrees F (35 degrees C)(rectal)(65) [ ] XVIII. Severe nutritional abnormalities as indicated by ALL of the following (66)(67): [ ]a) Inability to tolerate or establish sufficient oral or other enteral nutrition in outpatient setting [ ]b) Parenteral nutrition regimen need that must be implemented on inpatient basis [ ] XIX. Severe electrolyte abnormalities indicated by ALL of the following(68) (69)(70): [ ]a) Electrolytes and associated findings are not as expected for patient baseline or acceptable treatment effects. [ ]b) Severe abnormalities indicated by ANY ONE of the following: [ ]i) Sodium less than 130 mEq/L (mmol/L) (new) [ ]ii)Sodium less than 135 mEq/L (mmol/L) with ANY ONE of the following: [ ]1) Uncorrectable (to near normal or chronic baseline) after trial of outpatient and emergency treatment [ ]2) Altered mental status [ ]3) Seizures [ ]4) Severe medical etiology requiring inpatient management (eg, heart failure, hypovolemia) [ ]iii) Sodium greater than 155 mEq/L (mmol/L) [ ]iv) Sodium greater than 150 mEq/L (mmol/L) with ANY ONE of the following: [ ]1) Uncorrectable (to near normal or chronic baseline) with outpatient and emergency treatment [ ]2) Altered mental status [ ]3) Seizures [ ]4) Severe medical etiology (eg, hypovolemia, diabetes insipidus) [ ]v) Potassium less than 2.5 mEq/L (mmol/L) despite outpatient and emergency treatment [ ]vi) Potassium less than 3 mEq/L (mmol/L) with ANY ONE of the following: [ ]1) Weakness [ ]2) Cardiac abnormality (eg, arrhythmia, conduction disturbance) [ ]3) Cardiac ischemia [ ]4) Ileus [ ]5) Ongoing medical cause requiring inpatient management (eg, acute renal wasting or SIADH) [ ]6) Other severe symptoms [ ]vii) Potassium greater than 6.5 mEq/L (mmol/L) [ ]viii) Potassium greater than 5 mEq/L (mmol/L) with ANY ONE of the following: [ ]1) Uncorrectable (to near normal or chronic baseline) with outpatient and emergency treatment [ ]2) Severe ECG findings [F] [ ]3) Acute worsening of renal failure (creatinine greater than 2.5 mg/dL (221 micromoles/L) or significant elevation for age and size) [ ]4) Severe weakness [ ]5) Severe medical etiology (eg, hemolysis, infection, drug overdose) [ ]ix) Calcium less than 7 mg/dL (1.75 mmol/L) despite outpatient and emergency treatment (72) [ ]x) Calcium less than 8 mg/dL (2 mmol/L) with significant symptoms or findings; examples include(72): [ ]1) Altered mental status [ ]2) Muscle spasms [ ]3) Seizures [ ]4) Breathing difficulty [ ]5) Cardiac abnormality (eg, arrhythmia or conduction disturbance) [ ]xi) Calcium greater than 14 mg/dL (3.5 mmol/L)(72) [ ]xii) Calcium greater than 12 mg/dL (3 mmol/L) with ANY ONE of the following(72): [ ]1) Uncorrectable (to near normal or chronic baseline) with outpatient and emergency treatment [ ]2) Significant dehydration or hypovolemia as indicated by ALL of the following(70)(73)(74): [ ]A. Not resolved with initial treatments [ ]B. Clinically significant dehydration as indicated by ANY ONE of the following: [ ]a. Vomiting refractory to outpatient treatment (ie, precluding oral rehydration) [ ]b. Inability to drink [ ]c. Hypernatremia or other electrolyte abnormality unable to be corrected with outpatient and emergency treatment [ ]d. Failure to remain hydrated with outpatient therapy [ ]e. Reduced urine output [ ]f. Hypotension [ ]g. Serious cause for dehydration requiring acute hospitalization (eg, bowel obstruction, increased intracranial pressure, infectious cause) [ ]h. Child with ANY ONE of the following(75): [ ]1) Severe abdominal tenderness [ ]2) Adequate care not available at home [ ]3) Severe dehydration ( greater than 9% loss of body weight) [ ]4) Significant symptoms or findings; examples include: [ ]A. Altered mental status [ ]B. Cardiac abnormality (eg, arrhythmia, conduction disturbance) [ ]C. Malignant etiology requiring inpatient treatment [ ]xiii) Phosphorus less than 1 mg/dL (0.32 mmol/L) [ ]xiv) Phosphorus less than 1.5 mg/dL (0.48 mmol/L) with ANY ONE of the following: [ ]1) Patient unresponsive to outpatient and emergency treatment [ ]2) Significant symptoms or findings; examples include: [ ]A. Weakness [ ]B. Altered mental status [ ]C. Breathing difficulty [ ]D. Seizures [ ]E. Rhabdomyolysis [ ]xv) Phosphorus greater than 10 mg/dL (3.2 mmol/L) [ ]xvi) Phosphorus greater than 4.5 mg/dL (1.45 mmol/L) (new) with ANY ONE of the following: [ ]1) Severe medical etiology (eg, crush injury, acute renal failure) [ ]2) Associated hypocalcemia with significant findings; examples include: [ ]A. Neurologic symptoms [ ]B. Altered mental status [ ]C. Muscle spasms [ ]D. Seizures [ ]E. Breathing difficulty [ ]F. Cardiac abnormality (eg, arrhythmia, conduction disturbance) [ ]xvii) Magnesium less than 1 mg/dL (0.41 mmol/L) [ ]xviii) Magnesium less than 1.5 mg/dL (0.62 mmol/L) with ANY ONE of the following: [ ]1) Patient unresponsive to outpatient and emergency treatment [ ]2) Associated hypocalcemia with significant findings; examples include: [ ]A. Altered mental status [ ]B. Muscle spasms [ ]C. Seizures [ ]D. Breathing difficulty [ ]E. Cardiac abnormality (eg, arrhythmia , conduction disturbance) [ ]3) Associated hypokalemia (potassium less than 3 mEq/L (mmol/L)) with risk of arrhythmia [ ]xix) Magnesium greater than 4 mEq/L (2 mmol/L) [ ]xx) Magnesium greater than 2.5 mEq/L (1.25 mmol/L) with significant symptoms or findings; examples include: [ ]1) Weakness [ ]2) Altered mental status [ ]3) Cardiac abnormality (eg, arrhythmia, conduction disturbance) [ ]4) Breathing difficulty [ ]5) Severe medical etiology (eg, renal failure, hypovolemia) [ ]xxi) Uric acid greater than 20 mg/dL (1190 micromoles/L)(76) [ ]xxii) Uric acid greater than 8 mg/dL (476 micromoles/L) with significant symptoms or findings of tumor lysis syndrome; examples include(76): [ ]1) Creatinine greater than 1.5 times upper limit of normal [ ]2) Cardiac abnormality (eg, arrhythmia, conduction disturbance) [ ]3) Seizure [ ]XX. Acute blood loss causing significant abnormality as indicated by ANY ONE of the following(77)(78): [ ]a) Hemoglobin less than 10 g/dL (100 g/L) (not baseline) [ ]b) Hematocrit less than 30% (0.30) (not baseline) [ ]c) Repeat hematocrit decreased more than 2% (0.02) [ ]d) Uncontrolled bleeding [ ]XXI. Severe anemia indicated by ANY ONE of the following(78)(79): [ ]a) Altered mental status [ ]b) Chest pain [ ]c) Exertional dyspnea [ ]d) Syncope [ ]e) Other findings suggesting inadequate perfusion [ ]f) Treatment with transfusion or volume replacement is ineffective at resolving ANY ONE of the following [G]: [ ]i) Tachycardia for age [ ]ii) Orthostatic vital sign changes as indicated by ANY ONE of the following(80): [ ]1) Fall in SBP of 20 mm Hg or more 1 to 3 minutes after patient sits or stands from recumbent position [ ]2) Fall in DBP of 10 mm Hg or more 1 to 3 minutes after patient sits or stands from recumbent position [ ]XXII. High-risk low platelet count as indicated by ANY ONE of the following( 81)(82): [ ]a) Severe or life-threatening bleeding (eg, intracranial, major gastrointestinal, or extensive mucosal bleeding), with any reduced platelet count [ ]b) Platelet count less than 20,000/mm3 (20 x109/L) with any active bleeding [ ]c) Platelet count less than 10,000/mm3 (10 x109/L) with minor purpura or petechiae [ ]d) Platelet count less than 5000/mm3 (5 x109/L) [ ]e) Low platelet count with hemolytic anemia [ ]XXIII. Disseminated intravascular coagulation(77)(83) [ ]XXIV. Severe adverse drug or systemic toxin reaction requiring inpatient treatment; examples include(84)(85): [ ]a) Serotonin syndrome(86) [ ]b) Neuroleptic malignant syndrome(86) [ ]c) Cholinergic syndrome with severe symptoms (eg, bronchorrhea, weakness, mental status changes, seizures) [ ]d) Sympathetic syndrome with severe symptoms (eg, seizures, mental status changes, cardiac dysrhythmias) [ ]e) Anticholinergic syndrome [ ]XXV. Severe pain requiring acute inpatient management as indicated by ALL of the following (87)(88)(89): [ ]a) Continuous or frequent (eg, every 2 to 4 hours) parenteral analgesics required [H] [ ]b) Rapid improvement expected from treatment or acute intervention (eg, surgery, anesthesia procedure) [ ]XXVI.Severe behavioral health issues judged unmanageable at a lower level of care (eg, residential) in a patient who is ANY ONE of the following(91) [ ]a) Acutely suicidal [ ]b) A danger to self (eg, self-mutilating or suicidal behavior) [ ]c) A danger to others (eg, assaultive or homicidal behavior) [ ]d) Incapacitated because of grave disability (eg, inability to provide for self at lower level of care) (92) [ ]XXVII. Inpatient monitoring needed; examples include(1)(3)(87)(93)(94)(95)(96 ): [ ]a) Vital signs, neurologic signs, or vascular checks more frequently than every 4 hours [ ]b) Cardiac or respiratory monitoring beyond the scope (eg, over 24 hours) of observation care [ ]c) Pulmonary artery catheter monitoring [ ]d) Suspected compartment syndrome(97) (98) [ ]e) Cerebral bleeding, hydrocephalus, or vasospasm monitoring [ ]f) Increased intracranial pressure or cerebral edema monitoring [ ]g) monitoring [ ]XXVIII. Treatment requiring inpatient care; examples include: [ ]a) IV fluid to replace significant ongoing losses (greater than 3 L/m2 per day)(53) [ ]b) High concentration oxygen (greater than 40%)(33)(99)(100) [ ]c) Frequent respiratory therapy (more frequently than every 4 hours) to maintain airflow rates greater than 60% of baseline(33)(99)(100) [ ]d) Epidural analgesia(87) [ ]e) IV anticoagulation, vasoactive, or antiarrhythmic medication(19 )(23) [ ]f) Acute thrombolytics (generally require 24 hours of observation )(101)(102) [ ]XXIX. Emergency procedures needed; examples include: [ ]a) Emergency inpatient surgery [ ]b) Temporary pacemaker placement(103) [ ]c) Chest tube placement with active evacuation (eg, suction, drainage)(104) [ ]d) Emergent cardioversion(105) [ ]e) Emergent cardiac or vascular procedures (eg, cardiac catheterization, angioplasty) (17)(18) [ ]f) Emergent dialysis access placement and institution(10)(106) [ ]g) Emergent pericardiocentesis(107) [ ]h) Emergent plasmapheresis or leukapheresis(83) [ ]i) Emergent tracheostomy The original [employer] content created by [employer] has been revised. The portions of the content which have been revised are identified through the use of italic text or in bold, and [employer] has neither reviewed nor approved the modified material. All other unmodified content is copyright [employer]. Please see references footnoted in the original [employer] edition 2016 [address] WHITE Jul 27, 2017 07:03
--- NOTE | 2017-07-27 07:56 | RAD ---
Portable acute abdomen series, 3 views, 07/27/2017: History: Nausea and vomiting, DKA Gas is present in large and small bowel in a nonspecific pattern. No free air seen in the abdomen. There is no evidence of organomegaly. The heart size is normal. The lungs are clear. There is no evidence of pleural fluid. IMPRESSION: No acute abdominal abnormality is detected.
[2017-07-27] MEDS: buPROPion XL 150 MG TAB.ER.24H PO SCH (09:24)
[2017-07-27] MEDS: MAGNESIUM OXIDE 400 MG TABLET PO SCH ×3 (09:25→20:32)
[2017-07-27] MEDS: KETOROLAC 30 MG/ML VIAL. IV PRN (09:30)
[2017-07-27] MEDS: METOCLOPRAMIDE 10 MG TABLET PO SCH ×3 (10:14→20:32)
[2017-07-27] MEDS: DICYCLOMINE HCL 20 MG TABLET PO SCH ×3 (10:14→20:32)
[2017-07-27 10:36] VITALS: BP 109/67
[2017-07-27] MEDS: ONDANSETRON ODT 4 MG TAB.RAPDIS PO SCH ×2 (13:16→22:30)
[2017-07-27 13:28] LABS: CALCIUM 7.9 mg/dL (8.5-10.1); CREATININE 0.8 mg/dL (0.6-1.0); GFR 86.7; MAGNESIUM 1.6 mg/dL (1.8-2.4); POTASSIUM 3.3 mmol/L (3.5-5.1)
[2017-07-27] MEDS: INSULIN DETEMIR 300 UNITS/3 ML INSULN.PEN. SQ SCH ×2 (14:25→20:35)
[2017-07-27] MEDS ORDERED: POTASSIUM CHLORIDE 20 MEQ TABLET.ER. PO ONE (14:45)
--- NOTE | 2017-07-27 15:17 | HP ---
ADMIT DATE: 07/26/2017 REASON FOR ADMISSION: DKA. HISTORY OF PRESENT ILLNESS: This is approximately the 25th time since 11/20/2016, that the patient has been admitted for nausea, vomiting, and DKA. She continues to use methamphetamine and when she does, she does not eat and drink as much as she normally does. She states she gave herself 20 units of regular prior to coming to the Emergency Room. The patient states methamphetamine is "hard to give up." PAST MEDICAL HISTORY: Poorly controlled type 1 diabetes, multiple admissions for DKA, and abdominal pain, gastroparesis, chronic hypomagnesemia, chronic methamphetamine abuse, past history of tobacco use disorder. MEDICATIONS: Available on the MAR. ALLERGIES: TYLENOL and ADHESIVE TAPE. SOCIAL HISTORY: The patient recently got a job. She stated that she made a whole week without being hospitalized. 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 Does not smoke and uses methamphetamine frequently. Alcohol: None. REVIEW OF SYSTEMS: As per HPI. OBJECTIVE: VITAL SIGNS: Height 67 inches, weight 141.44 pounds, blood pressure 109/67, pulse 109, respirations 16, temperature 98.2, pulse ox 99% on room air. GENERAL: A 27-year-old in no acute distress. HEENT: Pupils are equal, round, react to light. Extraocular muscles are intact. Her nose was patent. Throat clear. Tongue dry. NECK: Supple. LUNGS: Clear to auscultation. CARDIOVASCULAR: Regular rhythm and rate. ABDOMEN: Soft, mild midepigastric tenderness. EXTREMITIES: Without edema. Multiple tattoos noted. LABORATORY DATA: Hemoglobin 10.4, hematocrit 31.7, this is normal for her after hydration. Initial blood sugar 508 and 551, carbon dioxide 10. Sodium 132, potassium 5.2. Drug screen positive for methamphetamine and opiates, but she received some morphine in the Emergency Room. Urine ketone is positive. ASSESSMENT: 1. Recurrent diabetic ketoacidosis. 2. Methamphetamine abuse. 3. Gastroparesis. 4. Chronic hypomagnesemia, magnesium is 1.6. PLAN: Insulin protocol, IV fluids. The patient could benefit from serious 30-day rehabilitation at any facility, but has never gone. BARRY MORELAND DO DR: DONNA/regina JOB#: [id number] / [id number]
[2017-07-27 15:20] VITALS: BP 112/72
[2017-07-27] MEDS: INSULIN ASPART 300 UNITS/3 ML INSULN.PEN SQ SCH ×3 (18:40→22:31)
[2017-07-27 19:17] VITALS: BP 116/77
[2017-07-27 22:55] VITALS: BP 108/70
[2017-07-28] MEDS: INSULIN ASPART 300 UNITS/3 ML INSULN.PEN SQ SCH ×5 (02:07→08:05)
[2017-07-28] MEDS: ONDANSETRON ODT 4 MG TAB.RAPDIS PO SCH (05:45)
[2017-07-28 05:47] VITALS: BP 101/50
[2017-07-28 06:20] LABS: BASO % 1 % (0-3); EOS # 0.1 x10^3/uL (0.0-0.7); EOS % 3 % (0-3); HEMATOCRIT 30.7 % (36.0-47.0); HEMOGLOBIN 10.6 g/dL (12.0-15.5); LYMPH # 1.8 x10^3/uL (1.0-4.8); LYMPH % 42 % (24-48); MEAN CORPUSCULAR HEMOGLOBIN 30 pg (25-35); MEAN CORPUSCULAR HGB CONC 35 g/dL (31-37); MEAN CORPUSCULAR VOLUME 87 fL (79-100); MONO # 0.4 x10^3/uL (0.0-1.1); MONO % 8 % (0-9); NEUT % 46 % (31-73); PLATELET COUNT 249 x10^3/uL (140-400); RED BLOOD COUNT 3.54 x10^6/uL (3.50-5.40); RED CELL DISTRIBUTION WIDTH 15.3 % (11.5-14.5); WHITE BLOOD COUNT 4.3 x10^3/uL (4.0-11.0)
[2017-07-28 06:27] LABS: ALBUMIN 2.8 g/dL (3.4-5.0); CALCIUM 8.3 mg/dL (8.5-10.1); CREATININE 0.9 mg/dL (0.6-1.0); GFR 75.7; MAGNESIUM 1.7 mg/dL (1.8-2.4); POTASSIUM 3.8 mmol/L (3.5-5.1); TOTAL BILIRUBIN 0.1 mg/dL (0.2-1.0); TOTAL PROTEIN 5.7 g/dL (6.4-8.2)
[2017-07-28] MEDS: DICYCLOMINE HCL 20 MG TABLET PO SCH (08:02)
[2017-07-28] MEDS: buPROPion XL 150 MG TAB.ER.24H PO SCH (08:02)
[2017-07-28] MEDS: MAGNESIUM OXIDE 400 MG TABLET PO SCH (08:03)
[2017-07-28] MEDS: METOCLOPRAMIDE 10 MG TABLET PO SCH (08:03)
[2017-07-28] MEDS: INSULIN DETEMIR 300 UNITS/3 ML INSULN.PEN. SQ SCH (08:04)
[2017-07-28] MEDS ORDERED: PANTOPRAZOLE 40 MG TABLET. PO SCH (11:00)
--- NOTE | 2017-07-28 15:31 | PDOC3 ---
Discharge Summary Visit Information Date of Admission: Jul 26, 2017 Date of Discharge: Jul 28, 2017 Final Diagnosis Problems Medical Problems: (1) DKA, type 1 Status: Acute 1. Recurrent diabetic ketoacidosis. 2. Methamphetamine abuse. 3. Gastroparesis. 4. Chronic hypomagnesemia, magnesium is 1.6. Problems: Brief Hospital Course Allergies Allergies Coded Allergies Type Severity Reaction Last Updated Verified acetaminophen Allergy Intermediate HIVES 07/21/17 Yes adhesive tape Allergy Intermediate 07/21/17 Yes I S O L A T I O N *CONTACT* Allergy Unknown 07/21/17 Yes Vital Signs Vital Signs Date Time Temp Pulse Resp B/P (MAP) Pulse Ox O2 Delivery O2 Flow Rate FiO2 07/28/17 08:26 Room Air 07/28/17 05:47 97.3 86 14 101/50 (67) 97 Lab Results Laboratory Tests Test 07/26/17 16:14 07/26/17 17:10 07/26/17 18:10 07/26/17 19:47 Glucose (Fingerstick) 508 mg/dL (70-99) 530 mg/dL (70-99) 342 mg/dL (70-99) White Blood Count 7.0 x10^3/uL (4.0-11.0) Red Blood Count 4.64 x10^6/uL (3.50-5.40) Hemoglobin 13.5 g/dL (12.0-15.5) Hematocrit 42.1 % (36.0-47.0) Mean Corpuscular Volume 91 fL (79-100) Mean Corpuscular Hemoglobin 29 pg (25-35) Mean Corpuscular Hemoglobin Concent 32 g/dL (31-37) Red Cell Distribution Width 15.0 % (11.5-14.5) Platelet Count 349 x10^3/uL (140-400) Neutrophils (%) (Auto) 77 % (31-73) Lymphocytes (%) (Auto) 17 % (24-48) Monocytes (%) (Auto) 4 % (0-9) Eosinophils (%) (Auto) 0 % (0-3) Basophils (%) (Auto) 1 % (0-3) Neutrophils # (Auto) 5.4 x10^3uL (1.8-7.7) Lymphocytes # (Auto) 1.2 x10^3/uL (1.0-4.8) Monocytes # (Auto) 0.3 x10^3/uL (0.0-1.1) Eosinophils # (Auto) 0.0 x10^3/uL (0.0-0.7) Basophils # (Auto) 0.1 x10^3/uL (0.0-0.2) Sodium Level 132 mmol/L (136-145) Potassium Level 5.2 mmol/L (3.5-5.1) Chloride Level 96 mmol/L (98-107) Carbon Dioxide Level 10 mmol/L (21-32) Anion Gap 26 (6-14) Blood Urea Nitrogen 15 mg/dL (7-20) Creatinine 1.0 mg/dL (0.6-1.0) Estimated GFR (Cockcroft-Gault) 67.0 BUN/Creatinine Ratio 15 (6-20) Glucose Level 551 mg/dL (70-99) Lactic Acid Level 1.6 mmol/L (0.4-2.0) Calcium Level 8.8 mg/dL (8.5-10.1) Magnesium Level 2.0 mg/dL (1.8-2.4) Total Bilirubin 0.5 mg/dL (0.2-1.0) Aspartate Amino Transf (AST/SGOT) 14 U/L (15-37) Alanine Aminotransferase (ALT/SGPT) 22 U/L (14-59) Alkaline Phosphatase 124 U/L (46-116) Creatine Kinase 27 U/L (26-192) Troponin I Quantitative < 0.017 ng/mL (0-0.055) Total Protein 8.3 g/dL (6.4-8.2) Albumin 4.3 g/dL (3.4-5.0) Albumin/Globulin Ratio 1.1 (1.0-1.7) Lipase 45 U/L (73-393) Ethyl Alcohol Level < 10 mg/dL (0-10) Test 07/26/17 22:01 07/26/17 23:09 07/27/17 00:07 07/27/17 01:11 Glucose (Fingerstick) 242 mg/dL (70-99) 163 mg/dL (70-99) 85 mg/dL (70-99) 99 mg/dL (70-99) Test 07/27/17 02:21 07/27/17 03:25 07/27/17 04:15 07/27/17 04:28 Glucose (Fingerstick) 166 mg/dL (70-99) 186 mg/dL (70-99) 174 mg/dL (70-99) Urine Collection Type Unknown Urine Color Straw Urine Clarity Hazy Urine pH 5.5 Urine Specific [place] 1.020 Urine Protein 30 mg/dl (NEG-TRACE) Urine Glucose (UA) 500 mg/dL (NEG) Urine Ketones (Stick) >=160 mg/dL (NEG) Urine Blood Neg (NEG) Urine Nitrite Neg (NEG) Urine Bilirubin Neg (NEG) Urine Urobilinogen Dipstick 0.2 mg/dL (0.2 mg/dL) Urine Leukocyte Esterase Neg (NEG) Urine RBC Occ /HPF (0-2) Urine WBC Occ /HPF (0-4) Urine Squamous Epithelial Cells Few /LPF Urine Bacteria Few /HPF (0-FEW) Urine Hyaline Casts Occ /HPF Urine Mucus Slight /LPF Urine Opiates Screen Pos (NEG) Urine Methadone Screen Neg (NEG) Urine Barbiturates Neg (NEG) Urine Phencyclidine Screen Neg (NEG) Urine Amphetamine/Methamphetamine Pos (NEG) Urine Benzodiazepines Screen Neg (NEG) Urine Cocaine Screen Neg (NEG) Urine Cannabinoids Screen Neg (NEG) Urine Ethyl Alcohol Neg (NEG) Test 07/27/17 05:29 07/27/17 06:00 07/27/17 06:21 07/27/17 06:36 Glucose (Fingerstick) 95 mg/dL (70-99) 70 mg/dL (70-99) 72 mg/dL (70-99) White Blood Count 8.2 x10^3/uL (4.0-11.0) Red Blood Count 3.59 x10^6/uL (3.50-5.40) Hemoglobin 10.4 g/dL (12.0-15.5) Hematocrit 31.7 % (36.0-47.0) Mean Corpuscular Volume 88 fL (79-100) Mean Corpuscular Hemoglobin 29 pg (25-35) Mean Corpuscular Hemoglobin Concent 33 g/dL (31-37) Red Cell Distribution Width 14.6 % (11.5-14.5) Platelet Count 283 x10^3/uL (140-400) Neutrophils (%) (Auto) 51 % (31-73) Lymphocytes (%) (Auto) 39 % (24-48) Monocytes (%) (Auto) 8 % (0-9) Eosinophils (%) (Auto) 1 % (0-3) Basophils (%) (Auto) 1 % (0-3) Neutrophils # (Auto) 4.2 x10^3uL (1.8-7.7) Lymphocytes # (Auto) 3.2 x10^3/uL (1.0-4.8) Monocytes # (Auto) 0.7 x10^3/uL (0.0-1.1) Eosinophils # (Auto) 0.1 x10^3/uL (0.0-0.7) Basophils # (Auto) 0.1 x10^3/uL (0.0-0.2) Sodium Level 139 mmol/L (136-145) Potassium Level 3.7 mmol/L (3.5-5.1) Chloride Level 109 mmol/L (98-107) Carbon Dioxide Level 13 mmol/L (21-32) Anion Gap 17 (6-14) Blood Urea Nitrogen 13 mg/dL (7-20) Creatinine 0.8 mg/dL (0.6-1.0) Estimated GFR (Cockcroft-Gault) 86.7 BUN/Creatinine Ratio 16 (6-20) Glucose Level 73 mg/dL (70-99) Calcium Level 8.0 mg/dL (8.5-10.1) Magnesium Level 1.6 mg/dL (1.8-2.4) Total Bilirubin 0.4 mg/dL (0.2-1.0) Aspartate Amino Transf (AST/SGOT) 9 U/L (15-37) Alanine Aminotransferase (ALT/SGPT) 16 U/L (14-59) Alkaline Phosphatase 84 U/L (46-116) Total Protein 6.3 g/dL (6.4-8.2) Albumin 3.1 g/dL (3.4-5.0) Albumin/Globulin Ratio 1.0 (1.0-1.7) Test 07/27/17 07:44 07/27/17 09:02 07/27/17 10:00 07/27/17 11:06 Glucose (Fingerstick) 206 mg/dL (70-99) 175 mg/dL (70-99) 198 mg/dL (70-99) 208 mg/dL (70-99) Test 07/27/17 11:55 07/27/17 12:13 07/27/17 13:02 07/27/17 13:14 Glucose (Fingerstick) 142 mg/dL (70-99) 124 mg/dL (70-99) 157 mg/dL (70-99) Sodium Level 137 mmol/L (136-145) Potassium Level 3.3 mmol/L (3.5-5.1) Chloride Level 107 mmol/L (98-107) Carbon Dioxide Level 19 mmol/L (21-32) Anion Gap 11 (6-14) Blood Urea Nitrogen 11 mg/dL (7-20) Creatinine 0.8 mg/dL (0.6-1.0) Estimated GFR (Cockcroft-Gault) 86.7 Glucose Level 168 mg/dL (70-99) Calcium Level 7.9 mg/dL (8.5-10.1) Magnesium Level 1.6 mg/dL (1.8-2.4) Test 07/27/17 14:15 07/27/17 15:12 07/27/17 16:22 07/27/17 18:34 Glucose (Fingerstick) 135 mg/dL (70-99) 136 mg/dL (70-99) 106 mg/dL (70-99) 329 mg/dL (70-99) Test 07/27/17 20:19 07/27/17 22:28 07/28/17 00:19 07/28/17 00:45 Glucose (Fingerstick) 354 mg/dL (70-99) 217 mg/dL (70-99) 67 mg/dL (70-99) 99 mg/dL (70-99) Test 07/28/17 02:06 07/28/17 03:56 07/28/17 05:40 07/28/17 05:53 Glucose (Fingerstick) 135 mg/dL (70-99) 190 mg/dL (70-99) 250 mg/dL (70-99) White Blood Count 4.3 x10^3/uL (4.0-11.0) Red Blood Count 3.54 x10^6/uL (3.50-5.40) Hemoglobin 10.6 g/dL (12.0-15.5) Hematocrit 30.7 % (36.0-47.0) Mean Corpuscular Volume 87 fL (79-100) Mean Corpuscular Hemoglobin 30 pg (25-35) Mean Corpuscular Hemoglobin Concent 35 g/dL (31-37) Red Cell Distribution Width 15.3 % (11.5-14.5) Platelet Count 249 x10^3/uL (140-400) Neutrophils (%) (Auto) 46 % (31-73) Lymphocytes (%) (Auto) 42 % (24-48) Monocytes (%) (Auto) 8 % (0-9) Eosinophils (%) (Auto) 3 % (0-3) Basophils (%) (Auto) 1 % (0-3) Neutrophils # (Auto) 2.0 x10^3uL (1.8-7.7) Lymphocytes # (Auto) 1.8 x10^3/uL (1.0-4.8) Monocytes # (Auto) 0.4 x10^3/uL (0.0-1.1) Eosinophils # (Auto) 0.1 x10^3/uL (0.0-0.7) Basophils # (Auto) 0.0 x10^3/uL (0.0-0.2) Sodium Level 140 mmol/L (136-145) Potassium Level 3.8 mmol/L (3.5-5.1) Chloride Level 108 mmol/L (98-107) Carbon Dioxide Level 26 mmol/L (21-32) Anion Gap 6 (6-14) Blood Urea Nitrogen 15 mg/dL (7-20) Creatinine 0.9 mg/dL (0.6-1.0) Estimated GFR (Cockcroft-Gault) 75.7 BUN/Creatinine Ratio 17 (6-20) Glucose Level 293 mg/dL (70-99) Calcium Level 8.3 mg/dL (8.5-10.1) Magnesium Level 1.7 mg/dL (1.8-2.4) Total Bilirubin 0.1 mg/dL (0.2-1.0) Aspartate Amino Transf (AST/SGOT) 12 U/L (15-37) Alanine Aminotransferase (ALT/SGPT) 17 U/L (14-59) Alkaline Phosphatase 98 U/L (46-116) Total Protein 5.7 g/dL (6.4-8.2) Albumin 2.8 g/dL (3.4-5.0) Albumin/Globulin Ratio 1.0 (1.0-1.7) Test 07/28/17 07:40 Glucose (Fingerstick) 173 mg/dL (70-99) Brief Hospital Course Ms. Leary is a 27 old FEMALE WHO PRESENTED WITH DKA, THIS IS ABOUT THE 25TH TIME SHE HAS BEEN ADMITTED TO THE HOSPITAL SINCE THE BEGINNING OF THE YEAR. SHE USES METH AND THEN DOES NOT EAT OR DRINK MUCH AND THEN GLUCOSES GET HIGHER AND HIGHER. SHE WAS TREATED WITH AN INSULIN DRIP, IV FLUIDS, AND TORADOL FOR PAIN. HER DKA CORRECTED AND SHE WAS DISCHARGED. SHE WAS COUNSELED ONCE AGAIN ABOUT THE DANGER OF SUBSTANCE ABUSE AND TYPE 1 DIABETES . Discharge Information Condition at Discharge: Improved Disposition/Orders: D/C to Home Dischare Medications Current Medications Ondansetron HCl (Zofran) 8 mg 1X ONCE IV Last administered on 07/26/17 16:20; Start 07/26/17 at 16:20; Stop 07/26/17 at 16:21; Status DC Sodium Chloride 1,000 ml @ 1,000 mls/hr 1X ONCE IV Last administered on 16:20; Start 07/26/17 at 16:20; Stop 07/26/17 at 17:19; Status DC Sodium Chloride 1,000 ml @ 1,000 mls/hr 1X ONCE IV Last administered on 16:30; Start 07/26/17 at 16:30; Stop 07/26/17 at 17:29; Status DC Sodium Chloride 1,000 ml @ 1,000 mls/hr Q1H IV Last administered on 07/26/17 18:15; Start 07/26/17 at 17:00; Stop 07/26/17 at 17:59; Status DC Promethazine HCl 25 mg/Sodium Chloride 51 ml @ 101 mls/hr PRN Q6HRS PRN IV NAUSEA/VOMITING Last administered on 07/26/17 18:02; Start 07/26/17 at 18:00; Stop 07/28/17 at 10:28; Status DC Morphine Sulfate (Morphine 4mg Syringe) 4 mg PRN Q15MIN PRN IV/SQ PAIN GREATER THAN 3/10 Last administered on 07/26/17 18:01; Start 07/26/17 at 17:30; Stop 07/27 at 08:18; Status DC Famotidine (Pepcid) 20 mg 1X ONCE IVP Last administered on 07/26/17 17:59; Start 07/26/17 at 18:00; Stop 07/26/17 at 18:01; Status DC Insulin Human Regular 150 unit/ Sodium Chloride 151.5 ml @ 0 mls/hr 1X ONCE IV Last administered on 07/26/17 20:59; Start 07/26/17 at 18:45; Stop 07/26/17 at 18:46; Status DC Insulin Human Regular (NovoLIN R) 10 unit 1X ONCE IV Last administered on 18:30; Start 07/26/17 at 18:30; Stop 07/26/17 at 18:31; Status DC Sodium Chloride 1,000 ml @ 200 mls/hr Q5H IV Last administered on 07/27/17 13: 15; Start 07/26/17 at 20:00; Stop 07/27/17 at 14:47; Status DC Insulin Human Regular 150 unit/ Sodium Chloride 151.5 ml @ 0 mls/hr CONT PRN IV SEE I/O RECORD; Start 07/26/17 at 20:00; Stop 07/27/17 at 16:26; Status DC Ketorolac Tromethamine (Toradol) 30 mg PRN Q6HRS PRN IV PAIN Last administered on 07/27/17 09:30; Start 07/26/17 at 22:30; Stop 07/28/17 at 10:28; Status DC Dextrose 25 gm STK-MED ONCE IV Last administered on 07/27/17 06:43; Start at 06:38; Stop 07/27/17 at 06:39; Status DC Dextrose 12.5 gm PRN Q15MIN PRN IV SEE COMMENTS; Start 07/27/17 at 06:45; Stop 07/28/17 at 10:28; Status DC Bupropion HCl (Wellbutrin Xl) 150 mg DAILY PO Last administered on 07/28/17 08: 02; Start 07/27/17 at 09:00; Stop 07/28/17 at 10:28; Status DC Dicyclomine HCl (Bentyl) 20 mg QIDACHS PO Last administered on 07/28/17 08:02; Start 07/27/17 at 11:30; Stop 07/28/17 at 10:28; Status DC Magnesium Oxide (Magnesium Oxide) 400 mg TID PO Last administered on 07/28/17 08:03; Start 07/27/17 at 09:00; Stop 07/28/17 at 10:28; Status DC Metoclopramide HCl (Reglan) 10 mg QIDACHS PO Last administered on 07/28/17 08: 03; Start 07/27/17 at 11:30; Stop 07/28/17 at 10:28; Status DC Ondansetron HCl (Zofran Odt) 4 mg Q8HRS PO Last administered on 07/27/17 22:30 ; Start 07/27/17 at 14:00; Stop 07/28/17 at 10:28; Status DC Pantoprazole Sodium (Protonix) 40 mg DAILYAC PO ; Start 07/28/17 at 11:00; Stop 07/28/17 at 11:00; Status DC Insulin Detemir (Levemir) 15 units BID SQ Last administered on 07/28/17 08:04; Start 07/27/17 at 09:00; Stop 07/28/17 at 10:28; Status DC Potassium Chloride (Klor-Con) 40 meq 1X ONCE PO Last administered on 07/27/17 14:24; Start 07/27/17 at 14:45; Stop 07/27/17 at 14:46; Status DC Insulin Aspart (NovoLOG) 0-9 UNITS Q2HR SQ Last administered on 07/28/17 08:05 ; Start 07/27/17 at 18:00; Stop 07/28/17 at 10:28; Status DC Active Scripts Active Dicyclomine Hcl 20 Mg Tablet 20 Mg PO QIDACHS 90 Days Bupropion Xl (Bupropion Hcl) 150 Mg Tab.er.24h 150 Mg PO DAILY 90 Days Zofran Odt (Ondansetron) 4 Mg Tab.rapdis 1 Tab SL Q8HRS Pantoprazole Sodium 40 Mg Tablet.dr 40 Mg PO DAILYAC Magnesium Oxide 400 Mg Tablet 1 Tab PO TID Metoclopramide Hcl 5 Mg Tablet 10 Mg PO QIDACHS Novolog Flexpen (Insulin Aspart) 100 Unit/1 Ml Insuln.pen 0-9 Unit SQ ACHS FOLLOW SUPPLEMENTAL SCALE GIVEN TO YOU Reported Levemir (Insulin Detemir) 100 Unit/1 Ml Vial 15 Unit SQ BID resume tonight at bedtime last dose this morning BARRY MORELAND DO Jul 28, 2017 15:31
== END 2017-07-28 10:15 | disposition home or self-care (01) | DRG 638 ==
LOC: ER 15:53 → 1 SOUTH 18:00
PROVIDERS: ADMIT Family Medicine; ATTEND Family Medicine
DX: E10.10 Type 1 diabetes mellitus with ketoacidosis without coma (principal); E87.1 Hypo-osmolality and hyponatremia; K31.84 Gastroparesis; E10.43 Type 1 diabetes mellitus with diabetic autonomic (poly)neuropathy; F15.20 Other stimulant dependence, uncomplicated; E83.42 Hypomagnesemia; E87.5 Hyperkalemia; E86.0 Dehydration; F15.10 Other stimulant abuse, uncomplicated; Z79.4 Long term (current) use of insulin; Z91.11 Patient's noncompliance with dietary regimen; Z91.19 Patient's noncompliance with other medical treatment and regimen
CPT/HCPCS: 36415; 74022; 80048; 80053; 80307; 81001; 82550; 82947; 83605; 83690; 83735; 84484; 85025; 87040; 93005; 96361; 96365; 96375; G0480; J1815; J1885; J2270; J2405; J2550; J8597; Q0162; S0028; 99285-25; G0479; J7030

== ENCOUNTER 2017-07-31 19:04 | Inpatient (IN) | payer SELFPAY ==
[~2017-07-31] VITALS: Ht 170.2 cm; Wt 65.4 kg
[2017-07-31] MEDS ORDERED: IV NORMAL SALINE 1,000ML 1,000 ML ONE (19:19)
[2017-07-31] MEDS ORDERED: IV NORMAL SALINE 1,000ML 1,000 ML IV ONE ×3 (19:30→21:15)
[2017-07-31] MEDS ORDERED: HALOPERIDOL LACT 5 MG/ML VIAL. IM ONE ×2 (19:30→20:10)
[2017-07-31] MEDS ORDERED: FAMOTIDINE 20 MG/2 ML VIAL IVP ONE (19:30)
[2017-07-31] MEDS ORDERED: HALOPERIDOL LACT 5 MG/ML VIAL. IVP ONE (20:30)
[2017-07-31 20:38] LABS: BASO # 0.1 x10^3/uL (0.0-0.2); BASO % 1 % (0-3); EOS % 0 % (0-3); HEMATOCRIT 44.3 % (36.0-47.0); HEMOGLOBIN 13.8 g/dL (12.0-15.5); LYMPH # 1.5 x10^3/uL (1.0-4.8); LYMPH % 19 % (24-48); MEAN CORPUSCULAR HEMOGLOBIN 30 pg (25-35); MEAN CORPUSCULAR HGB CONC 31 g/dL (31-37); MEAN CORPUSCULAR VOLUME 95 fL (79-100); MONO # 0.3 x10^3/uL (0.0-1.1); MONO % 4 % (0-9); NEUT # 5.9 x10^3uL (1.8-7.7); NEUT % 75 % (31-73); PLATELET COUNT 382 x10^3/uL (140-400); RED BLOOD COUNT 4.66 x10^6/uL (3.50-5.40); RED CELL DISTRIBUTION WIDTH 16.5 % (11.5-14.5); WHITE BLOOD COUNT 7.8 x10^3/uL (4.0-11.0)
[2017-07-31 20:51] LABS: ALBUMIN 4.2 g/dL (3.4-5.0); ALBUMIN/GLOBULIN RATIO 1.1 (1.0-1.7); CALCIUM 8.7 mg/dL (8.5-10.1); CREATININE 1.2 mg/dL (0.6-1.0); GFR 54.3; TOTAL BILIRUBIN 0.5 mg/dL (0.2-1.0)
[2017-07-31 21:03] LABS: PREG TEST PT QUAL NEGATIVE (NEG)
[2017-07-31] MEDS ORDERED: INSULIN REGULAR 100 UNIT/ML 10ML VIAL. SQ ONE (21:10)
[2017-07-31 21:45] LABS: BGAS PH 7.07 (7.35-7.45)
--- NOTE | 2017-07-31 22:21 | ED.ADGEN ---
Past History Past Medical History: Diabetes, Other Additional Past Medical Histor: pt reports several admissions for "high blood sugar" Past Surgical History: No Surgical History Smoking: Less than 1pk/day Alcohol Use: None Drug Use: Methamphetamine Adult General Chief Complaint Chief Complaint Altered mental status HPI HPI Patient is a 27-year-old insulin-dependent diabetic well-known to this emergency department who presents with altered mental status nausea and vomiting. I will onset is unclear. Patient arrives via EMS, with altered mental status, GCS of 13. Patient's nausea vomiting with blood sugars elevated greater than in today. Patient has been unable to eat or drink has not taken her insulin in greater than 12 hours. Patient is frequently be admitted this facility for DKA. Patient denies fever, chest pain, shortness of breath. Reports epigastric pain with vomiting. No hematemesis or coffee-ground emesis. Patient has had diarrhea. Reports lightheadedness and feeling dizzy. No other acute symptoms or complaints. Review of Systems Review of Systems Review symptoms as per history of present illness. All other review symptoms are negative. Current Medications Current Medications Current Medications Medications (Trade) Dose Ordered Sig/Chevy Start Time Stop Time Status Last Admin Dose Admin Dextrose/Sodium Chloride 1,000 ml @ 0 mls/hr Q0M 07/31/17 22:18 UNV Famotidine (Pepcid) 20 mg 1X ONCE 07/31/17 19:30 07/31/17 19:31 DC 07/31/17 19:30 20 MG Haloperidol Lactate (Haldol) 2.5 mg 1X ONCE 07/31/17 20:30 07/31/17 20:31 DC 07/31/17 20:21 2.5 MG Insulin Human Regular (NovoLIN R) 15 unit 1X ONCE 07/31/17 21:10 07/31/17 21:11 DC 07/31/17 21:08 15 UNIT Insulin Human Regular 150 unit/ Sodium Chloride 151.5 ml @ 0 mls/hr CONT PRN PRN 07/31/17 22:30 UNV Sodium Chloride 1,000 ml @ 0 mls/hr Q0M 07/31/17 22:18 UNV Allergies Allergies Allergies Coded Allergies Type Severity Reaction Last Updated Verified acetaminophen Allergy Intermediate HIVES 07/21/17 Yes adhesive tape Allergy Intermediate 07/21/17 Yes I S O L A T I O N *CONTACT* Allergy Unknown 07/21/17 Yes Physical Exam Physical Exam Constitutional: Well developed, well nourished, somnolent, answers appropriate questions. [] HENT: Normocephalic, atraumatic, bilateral external ears normal, oropharynx moist, no oral exudates, nose normal. [] Eyes: PERRLA, EOMI, conjunctiva normal, no discharge. [] Neck: Normal range of motion, no tenderness, supple, no stridor. [] Cardiovascular: Tachycardic. [] Lungs & Thorax: Bilateral breath sounds clear to auscultation [] Abdomen: Bowel sounds normal, soft, epigastric pain, tenderness.. [] Skin: Warm, dry, no erythema, no rash. [] Back: No tenderness, no CVA tenderness. [] Extremities: No tenderness, no cyanosis, no clubbing, ROM intact, no edema. [] Neurologic: Alert and oriented X 2, normal motor function, normal sensory function, no focal deficits noted. [] Psychologic: Affect flat [] Current Patient Data Vital Signs Vital Signs Date Time Temp Pulse Resp B/P (MAP) Pulse Ox O2 Delivery O2 Flow Rate FiO2 07/31/17 19:15 98.0 135 20 96 Room Air Lab Results Laboratory Tests Test 07/31/17 19:23 07/31/17 19:38 07/31/17 20:23 07/31/17 20:57 Serum Test, Qualitative Negative (NEG) POC Urine HCG, Qualitative hcg negative (Negative) White Blood Count 7.8 x10^3/uL (4.0-11.0) # Red Blood Count 4.66 x10^6/uL (3.50-5.40) Hemoglobin 13.8 g/dL (12.0-15.5) Hematocrit 44.3 % (36.0-47.0) # Mean Corpuscular Volume 95 fL (79-100) # Mean Corpuscular Hemoglobin 30 pg (25-35) Mean Corpuscular Hemoglobin Concent 31 g/dL (31-37) Red Cell Distribution Width 16.5 % (11.5-14.5) H Platelet Count 382 x10^3/uL (140-400) Neutrophils (%) (Auto) 75 % (31-73) H Lymphocytes (%) (Auto) 19 % (24-48) L Monocytes (%) (Auto) 4 % (0-9) Eosinophils (%) (Auto) 0 % (0-3) Basophils (%) (Auto) 1 % (0-3) Neutrophils # (Auto) 5.9 x10^3uL (1.8-7.7) Lymphocytes # (Auto) 1.5 x10^3/uL (1.0-4.8) Monocytes # (Auto) 0.3 x10^3/uL (0.0-1.1) Eosinophils # (Auto) 0.0 x10^3/uL (0.0-0.7) Basophils # (Auto) 0.1 x10^3/uL (0.0-0.2) Platelet Estimate Pending Sodium Level 131 mmol/L (136-145) L Potassium Level 6.0 mmol/L (3.5-5.1) H Chloride Level 94 mmol/L (98-107) L Carbon Dioxide Level 7 mmol/L (21-32) *L Anion Gap 30 (6-14) H Blood Urea Nitrogen 21 mg/dL (7-20) H Creatinine 1.2 mg/dL (0.6-1.0) H Estimated GFR (Cockcroft-Gault) 54.3 BUN/Creatinine Ratio 18 (6-20) Glucose Level 661 mg/dL (70-99) *H Lactic Acid Level 2.3 mmol/L (0.4-2.0) H Calcium Level 8.7 mg/dL (8.5-10.1) Total Bilirubin 0.5 mg/dL (0.2-1.0) Aspartate Amino Transferase (AST) 11 U/L (15-37) L Alanine Aminotransferase (ALT) 21 U/L (14-59) Alkaline Phosphatase 110 U/L (46-116) Total Protein 8.0 g/dL (6.4-8.2) Albumin 4.2 g/dL (3.4-5.0) Albumin/Globulin Ratio 1.1 (1.0-1.7) Lipase 39 U/L (73-393) L Acetone Level Lg pos (NEG) Blood pH 7.07 (7.35-7.45) *L Blood Gas PCO2 12 mmHg (35-45) *L Blood Gas PO2 136 mmHg (80-100) H Blood Gas HCO3 4 mmol/L (22-26) L Arterial Bld O2 Saturation (Calc) 98 % (92-99) FiO2 28 % Test 07/31/17 21:26 Glucose (Fingerstick) 598 mg/dL (70-99) *H EKG EKG [EKG: sinus tach, rate 131. No acute ST-T wave changes.] Radiology/Procedures Radiology/Procedures [] Course & Med Decision Making Course & Med Decision Making Pertinent Labs and Imaging studies reviewed. (See chart for details) [Hyperglycemia with acute diabetes ketoacidosis. IV fluids, insulin bolus and drip started. Blood sugar improving. Patient remains tachycardic, blood pressure stable. Dr. Pereira to admit to the ICU.] Final Impression Final Impression [1. DKA] Problems: Dragon Disclaimer Dragon Disclaimer This electronic medical record was generated, in whole or in part, using a voice recognition dictation system. ROXY SMALL DO Jul 31, 2017 22:21
[2017-07-31] MEDS ORDERED: IV DEXTROSE 5 %-0.45 % NACL 1,000 ML IV SCH (22:30)
[2017-07-31] MEDS ORDERED: INSULIN REGULAR 150 UNIT in 0.9 % SODIUM CHLORIDE 150ML 150 ML IV PRN (22:45)
[2017-07-31 22:48] LABS: BACTERIA,URINE FEW /HPF (0-FEW); BILIRUBIN,URINE NEG (NEG); CLARITY,URINE CLEAR; COLOR,URINE STRAW; GLUCOSE,URINE 500 mg/dL (NEG); NITRITE,URINE NEG (NEG); RBC,URINE OCC /HPF (0-2); SQUAMOUS EPITHELIAL CELL,UR MANY /LPF; UROBILINOGEN,URINE 0.2 mg/dL (0.2 mg/dL)
[2017-07-31 22:58] LABS: % BANDS 3 % (0-9); % LYMPHS 20 % (24-48); % MONOS 5 % (0-10); % SEGS 72 % (35-66); PLT ESTIMATE ADEQUATE (ADEQUATE)
[2017-08-01] VITALS (26 sets, daily range): BP systolic 89–186; BP diastolic 52–94
--- NOTE | 2017-08-01 00:30 | NUR ---
Alonso Leary a 27 y/o female was admitted to ICU-5 for DKA with N,V. Patient has history of frequent admissions for DKA. Pt is familiar to ICU unit. Reoriented pt to unit policies, and her room. Pt settled in, admission assessment completed. Pt informed me that her mother and brother did not accompany her to ER, they had her sent via EMS. Per ER staff, pt's labs were very abnormal and was almost intubated and transferred to another facility. Refer to lab section for details. Insulin drip was started in ER and will be continued in ICU, DKA protocol will be followed. Reviewed poc with pt, she is in agreement.
[2017-08-01] MEDS: IV NORMAL SALINE 1,000ML 1,000 ML IV SCH ×3 (00:33→03:37)
[2017-08-01 01:12] LABS: CALCIUM 8.4 mg/dL (8.5-10.1); CREATININE 1.4 mg/dL (0.6-1.0); GFR 45.5; MAGNESIUM 2.3 mg/dL (1.8-2.4); POTASSIUM 4.1 mmol/L (3.5-5.1)
--- NOTE | 2017-08-01 07:16 | EKG ---
[address] [address] Test Date: 2017-07-31 Test Time: 21:36:40 Pat Name: CHALO RAYMUNDO Department: Room: [facility] Gender: F Belt Lacer: STELLA : 1990 Requested By: ROXY SMALL Order Number: [id number] Reading MD: Alex Espinoza Measurements Intervals [place] Rate: 131 P: 64 MT: 110 QRS: 83 QRSD: 76 T: 41 QT: 292 QTc: 436 Interpretive Statements SINUS TACHYCARDIA NON-SPECIFIC ST/T CHANGES Electronically Signed On 08-07-2017 10:09:30 CDT by Alex Espinoza
[2017-08-01 08:01] LABS: CALCIUM 7.7 mg/dL (8.5-10.1); CREATININE 0.9 mg/dL (0.6-1.0); GFR 75.7
--- NOTE | 2017-08-01 08:13 | NUR ---
IP: Patient has hx of MRSA, requires contact precautions until 2 negative results 7 days apart.
[2017-08-01] MEDS: PANTOPRAZOLE 40 MG TABLET. PO SCH (09:40)
[2017-08-01] MEDS: buPROPion XL 150 MG TAB.ER.24H PO SCH (09:40)
[2017-08-01] MEDS: MAGNESIUM OXIDE 400 MG TABLET PO SCH ×3 (09:40→21:31)
[2017-08-01] MEDS: DICYCLOMINE HCL 20 MG TABLET PO SCH ×3 (11:53→21:31)
[2017-08-01 14:04] LABS: CREATININE 0.9 mg/dL (0.6-1.0); GFR 75.7; POTASSIUM 3.1 mmol/L (3.5-5.1)
[2017-08-01] MEDS ORDERED: POTASSIUM CHLORIDE 20 MEQ TABLET.ER. PO ONE (14:30)
[2017-08-01] MEDS ORDERED: MAGNESIUM SULFATE 2GM 50 ML IV ONE (14:30)
[2017-08-01] MEDS ORDERED: DEXTROSE 50% 25 GM / 50ML DISP.SYRIN. IV PRN (14:45)
--- NOTE | 2017-08-01 14:54 | HP ---
ADMIT DATE: 08/01/2017 HISTORY OF PRESENT ILLNESS: The patient is a 27-year-old female patient who yet again came to the Emergency Room complaining of recurrent bouts of nausea, vomiting. Her Ravenel coma scale on arrival was only 13. The patient's blood sugar was extremely elevated yesterday and the patient was unable to eat or drink and has not taken any of her insulin in more than 12 hours. In the Emergency Room, her blood sugar was about 660 mg. She was extremely acidotic with dilutional hyponatremia, high anion gap metabolic acidosis. She was admitted with diagnosis of diabetic ketoacidosis, started on IV fluid and IV insulin drip and was admitted to follow the DKA protocol. Apart from nausea and vomiting, the patient denied any other complaints, in particular denied any chills, rigors or fever. Denied any abdominal pain. PAST MEDICAL HISTORY: Significant for brittle type 1 diabetes that is poorly controlled, recurrent episodes of DKA, abdominal pain, diabetic gastroparesis, chronic hypomagnesemia, chronic methamphetamine abuse, last time she used amphetamine was about a week ago, past history of tobacco use disorder. PAST SURGICAL HISTORY: Significant for placement of a Port-A-Cath and removal, incision and drainage of a left axillary abscess. ALLERGIES: She is allergic to TYLENOL AND ADHESIVE TAPE. MEDICATIONS: She is currently on following medications: Wellbutrin 150 mg daily, dicyclomine 20 mg 4 times a day before meals and at bedtime. She is on NovoLog FlexPen as insulin sliding scale, Levemir insulin 15 units twice a day, magnesium oxide 400 mg 3 times a day, Zofran 4 mg q. 8 hourly and Protonix 40 mg daily. FAMILY HISTORY: Unremarkable. SOCIAL HISTORY: The patient apparently had recently got her job. She stated that she has made whole week without being hospitalized. 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 She does not smoke, but continued to abuse amphetamine. She does not drink any alcohol. REVIEW OF SYSTEMS: As per history of present illness. PHYSICAL EXAMINATION: GENERAL: On admission, she was pale, but no jaundice, cyanosis, lymphadenopathy or thyromegaly. No jugular venous distension. No lower limb edema. VITAL SIGNS: Her heart rate was 135, blood pressure was 113/71, temperature was 98, respiratory rate 20, and oxygen saturation was 96%. HEENT: Showed normocephalic, atraumatic. NECK: Supple. HEART: Showed normal first and second heart sounds with no gallop, rub or murmur. CHEST: Clear to auscultation. No crepitation or rhonchi. ABDOMEN: Distended, soft, nontender. No guarding or rigidity. No organomegaly. Hernial orifices intact. Bowel sounds normal. NEUROLOGIC: She was awake, alert, responding appropriately. Cranial nerves intact. EXTREMITIES: She moves extremities without difficulty. LABORATORY DATA: Showed that her white cell count was 7800, hemoglobin 14, hematocrit 44, MCV 95 and platelet count 382,000. Her blood gases showed a pH of 7.07, pCO2 of 12, PO2 of 136, bicarbonate 4 and oxygen saturation was 98% on FiO2 28%. Her chemistry showed a serum sodium of 131, potassium 6, chloride 94, bicarbonate 7, anion gap of 30, BUN 21, creatinine 1.2, estimated GFR was 54 mL per minute. Her glucose was 661. Her calcium was 8.7. Total bilirubin, AST, ALT, alkaline phosphatase were normal. Her total protein was 8, albumin 4.2. Serum lipase was 39. Serum test was negative. Urinalysis showed the urine was yellow, clear with a pH of 5.5 with specific gravity of 1.015. The urine was negative for protein. There was large amount of glucose, large amount of ketones, negative for blood, nitrite and leukocyte esterase. There was only occasional rbc's, 5-10 wbc's, very few bacteria. Her toxic screen showed that there was large amount of acetone. ASSESSMENT AND PLAN: In summary, this is a 27-year-old female patient with brittle type 1 diabetes with yet again another admission for diabetic ketoacidosis. She was started on normal saline as well as insulin drip as per protocol. We will monitor her electrolytes on a regular basis as per the protocol and once her anion gap normalizes, we will start feeding if she tolerated and put her back on her insulin sliding scale. ANAYELI FOSS MD DR: JOSÉ/regina JOB#: [id number] / [id number]
--- NOTE | 2017-08-01 15:00 | NUR ---
Pt taken off of drip and labs repeated. IV mg and fluids changed due to low potassium and magnesium. Pt denies n/v/d and able to tolerate PO meds and Food. Denies complaints
[2017-08-01] MEDS: POTASSIUM CL 40MEQ IN 0.9%NACL 1,000 ML IV SCH (15:01)
[2017-08-01] MEDS: INSULIN ASPART 300 UNITS/3 ML INSULN.PEN SQ PRN ×3 (15:33→21:34)
[2017-08-01] MEDS: INSULIN DETEMIR 300 UNITS/3 ML INSULN.PEN. SQ SCH (21:34)
[2017-08-02] VITALS (10 sets, daily range): BP systolic 94–148; BP diastolic 60–91
[2017-08-02] MEDS: POTASSIUM CL 40MEQ IN 0.9%NACL 1,000 ML IV SCH ×2 (00:10→10:16)
--- NOTE | 2017-08-02 00:44 | PN ---
DATE: 08/01/2017 SUBJECTIVE: The patient is resting, slightly propped up in bed, in no apparent distress. She is sleepy, but arousable. On questioning her, denied any further episodes of nausea, vomiting. She was able to tolerate her lunch without difficulty. Denied any pain. Denied any chills, rigors, or fever. She continues to be on IV fluid as well as insulin drip as per protocol. PHYSICAL EXAMINATION: GENERAL: When I examined her, she looked pale, but no jaundice, cyanosis, or thyromegaly. No jugular venous distention. No limb edema. VITAL SIGNS: Her heart rate was 107, blood pressure was 98/57, temperature was 98, respiratory rate was 15, and oxygen saturation was 100%. HEAD, EYES, EARS, NOSE, AND THROAT: Normocephalic, atraumatic. NECK: Supple. HEART: Showed normal first and second heart sounds with no gallop, rub, or murmur. CHEST: Clear to auscultation. No crepitation or rhonchi. ABDOMEN: Distended, soft, nontender. NEUROLOGIC: She is sleepy, but arousable. All cranial nerves intact. She moves extremities without difficulty. Her intake over the last 24 hours was 8980, output was 1300. As of this morning, her serum sodium is up to 137, potassium 4, chloride 108, bicarbonate 15, anion gap of 14, BUN 13, creatinine 0.9, estimated GFR was 57 mL per minute. Her calcium was 7.7. The plan is to continue with IV fluid, continue with insulin drip as per protocol. Once her anion gap has normalized, we will be able to discontinue the insulin drip and start her on her sliding scale insulin as well as Levemir insulin. ANAYELI FOSS MD DR: JOSÉ/regina JOB#: [id number] / [id number]
[2017-08-02] MEDS: INSULIN ASPART 300 UNITS/3 ML INSULN.PEN SQ PRN ×3 (02:43→09:55)
[2017-08-02 06:24] LABS: HEMATOCRIT 29.1 % (36.0-47.0); HEMOGLOBIN 9.9 g/dL (12.0-15.5); RED BLOOD COUNT 3.28 x10^6/uL (3.50-5.40); RED CELL DISTRIBUTION WIDTH 15.1 % (11.5-14.5); WHITE BLOOD COUNT 5.5 x10^3/uL (4.0-11.0)
[2017-08-02 06:35] LABS: ALBUMIN 2.7 g/dL (3.4-5.0); CALCIUM 8.3 mg/dL (8.5-10.1); CREATININE 0.8 mg/dL (0.6-1.0); GFR 86.7; TOTAL BILIRUBIN 0.2 mg/dL (0.2-1.0); TOTAL PROTEIN 5.4 g/dL (6.4-8.2)
[2017-08-02] MEDS: PANTOPRAZOLE 40 MG TABLET. PO SCH (07:47)
[2017-08-02] MEDS: DICYCLOMINE HCL 20 MG TABLET PO SCH ×2 (07:48→11:30)
[2017-08-02] MEDS: MAGNESIUM OXIDE 400 MG TABLET PO SCH (08:05)
[2017-08-02] MEDS: buPROPion XL 150 MG TAB.ER.24H PO SCH (08:05)
[2017-08-02] MEDS: INSULIN DETEMIR 300 UNITS/3 ML INSULN.PEN. SQ SCH (08:09)
--- NOTE | 2017-08-02 12:52 | NUR ---
Patient dismissed to home. IV site d/c 'd without difficulty. Reviewed home medications, follow-up instructions, blood sugar monitoring, and reasons to seek immediate medical attention with patient. Received verbalization of understanding, denies questions/needs. Patient ambulated off unit independently, left via POV.
--- NOTE | 2017-08-02 22:06 | DS ---
DATE OF DISCHARGE: 08/02/2017 HOSPITAL COURSE: The patient is a 27-year-old female patient who was admitted yesterday morning with recurrent bouts of nausea, vomiting. She also was extremely hyperglycemic. Her blood sugar was 660. She was extremely acidotic with a pH of 7.07, marked dilution hyponatremia, high anion gap, metabolic acidosis. She was admitted to the ICU with diagnosis of diabetic ketoacidosis and started with IV fluid and IV insulin drip as per DKA protocol. Her nausea and vomiting has completely subsided. Her anion gap has normalized. Blood sugar is much better controlled. Her serum sodium has normalized as well as kidney function. Her BUN was elevated at 22 and now is 9 and her anion gap was at 30 and now is 5 and she has been eating and tolerating her food and her blood sugar is much better controlled, a decision was made to discharge her home with a note to her work that she has been here for the last 2 days. PHYSICAL EXAMINATION: GENERAL: When I examined her this morning, she looked well and was clearly in no apparent respiratory distress, pale, but no jaundice, cyanosis, or thyromegaly. No jugular venous distention. No limb edema. VITAL SIGNS: Her heart rate was 67, blood pressure 140/84, temperature was 97.7, respiratory rate was 18 and oxygen saturation was 99%. HEAD, EYES, EARS, NOSE AND THROAT: Showed normocephalic, atraumatic. NECK: Supple. HEART: Showed normal first and second heart sounds with no gallop, rub or murmur. CHEST: Clear to auscultation. No crepitation or rhonchi. ABDOMEN: Distended, soft, nontender. NEUROLOGIC: She is awake, alert, responding appropriately. All her cranial nerves are intact. She moves extremities without difficulty. She ambulates without assistance or assistive devices. Her intake over the last 24 hours was 4680, output was 1000. LABORATORY DATA: As of this morning showed a serum sodium 141, potassium 4, chloride 110, bicarbonate 26, anion gap of 5, BUN 9, creatinine 0.8, estimated GFR was 87 mL per minute. Her glucose was 167, calcium was 8.3. Total bilirubin, AST, ALT, alkaline phosphatase were normal. Total protein was 5.4, albumin was 2.7. Her magnesium was 1.7. White cell count was 5500, hemoglobin 9.9, hematocrit 29, MCV 89 and platelet count 246,000. DISCHARGE MEDICATIONS: She will be discharged home to continue on the following medications: Wellbutrin XL 150 mg daily, dicyclomine 20 mg 4 times a day. She is on NovoLog insulin as insulin sliding scale before meals and detemir insulin 15 units twice a day, magnesium oxide 400 mg 3 times a day, ondansetron 4 mg every 8 hours as needed and Protonix 40 mg once a day. FINAL DISCHARGE DIAGNOSES: 1. Diabetic ketoacidosis. 2. Dilutional hyponatremia, resolved. 3. Acute kidney injury, resolved. 4. Severe metabolic acidosis, resolved. 5. Brittle type 1 diabetes mellitus, poorly controlled. 6. Diabetic gastroparesis. 7. Diabetic peripheral neuropathy. 8. Chronic hypomagnesemia. ANAYELI FOSS MD DR: JOSÉ/regina JOB#: [id number] / [id number]
== END 2017-08-02 12:56 | disposition home or self-care (01) | DRG 637 ==
LOC: ER 19:04 → ICU 22:00
PROVIDERS: ADMIT Internal Medicine; ATTEND Internal Medicine
DX: E10.10 Type 1 diabetes mellitus with ketoacidosis without coma (principal); G93.41 Metabolic encephalopathy; N17.0 Acute kidney failure with tubular necrosis; K31.84 Gastroparesis; E10.43 Type 1 diabetes mellitus with diabetic autonomic (poly)neuropathy; E83.42 Hypomagnesemia; E87.1 Hypo-osmolality and hyponatremia; F15.10 Other stimulant abuse, uncomplicated; F17.210 Nicotine dependence, cigarettes, uncomplicated; Z88.6 Allergy status to analgesic agent; Z88.8 Allergy status to other drugs, medicaments and biological substances; Z91.041 Radiographic dye allergy status
CPT/HCPCS: 36415; 80048; 80053; 81001; 81025; 82010; 82803; 82947; 83605; 83690; 83735; 83930; 84100; 84703; 85007; 85025; 85027; 87086; 87641; 93005; 96361; 96372; 96374; 96375; J1630; J1815; J3475; S0028; 99285-25; J7030

== ENCOUNTER 2017-08-05 12:43 | Emergency (ER) | payer SELFPAY ==
[~2017-08-05] VITALS: Ht 170.2 cm; Wt 61.4 kg
[2017-08-05 12:51] VITALS: BP 148/95
--- NOTE | 2017-08-05 13:12 | PHYS DOC ---
General Chief Complaint: NAUSEA/VOMITING/DIARRHEA Stated Complaint: N/V; HBG Time Seen by MD: 12:55 Source: patient, old records Exam Limitations: no limitations Problems: History of Present Illness Initial Comments Patient is a 27-year-old female well known to this facility with frequent hospitalizations for DKA and history of methamphetamine addiction comes to the ED complaining of high blood sugars with nausea and vomiting. Patient states that 2 days ago when she was last discharged from the hospital she still had nausea and vomiting. She says she hasn't been able to keep anything down at abdominal pain. She is asking for pain medications as well as antiemetics, she denies any recent drug abuse specifically methamphetamine. No fever chills sweats or myalgias, patient is having normal bowel movements and has no abdominal bloating. Finger sick blood sugar in the ED is 354, will await serum results for treatment. No focal abdominal pain complaints patient just complains of generalized abdominal muscle pain associated with vomiting and moving. Patient has been referred to GI for gastroparesis on numerous occasions always lipid excuses for why she hasn't followed up. Currently she says she's waiting for new insurance to take effect which shouldn't happen on October 20. ED vitals: 97.9, 114, 16, 148/95, 99% room air No vomiting or retching in the emergency department. Timing/Duration: constant Severity: severe Modifying Factors: worse with eating Associated Symptoms: malaise, nausea/vomiting, other Allergies: Coded Allergies: acetaminophen (Verified Allergy, Intermediate, HIVES, 07/21/17) "WHEN I HAD MY ANKLE BX THEY GAVE ME TYLENOL AND I GOT HIVES ON MY LEG." adhesive tape (Verified Allergy, Intermediate, 07/21/17) I S O L A T I O N *CONTACT* (Verified Allergy, Unknown, 07/21/17) +MRSA nares 05-15-17 Past Medical History Medical History: diabetes, other (diabetes, neuropathy, gastroparesis, noncompliance, polysubstance abuse) Surgical History: noncontributory Social History Smoker: non-smoker Alcohol: none Drugs: other (methamphetamine) Review of Systems Constitutional: denies chills, denies diaphoresis, denies fever, malaise Respiratory: denies cough, denies shortness of breath Cardiovascular: denies chest pain, denies palpitations Gastrointestinal: see HPI Genitourinary: denies dysuria, denies frequency, denies hematuria Musculoskeletal: denies back pain, denies joint swelling, denies neck pain Psychiatric/Neurological: denies headache, denies numbness, denies paresthesia Physical Exam General Appearance: WD/WN, no apparent distress (patient appears to be well- hydrated, she is in no apparent distress no retching or emesis she actually looks better than I seen her in months) Eyes: bilateral eye normal inspection, bilateral eye PERRL, bilateral eye EOMI Ear, Nose, Throat: hearing grossly normal, normal ENT inspection, normal pharynx Neck: non-tender, supple Respiratory: normal breath sounds, no respiratory distress Cardiovascular: normal peripheral pulses, tachycardia Gastrointestinal: soft (nondistended, generalized abdominal muscle tenderness without rebound guarding or masses, negative Boudreaux and McBurney, bowel sounds present) Extremities: non-tender, normal inspection Neurologic/Psychiatric: 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 Interpreted by Dr Melendez PATIENT: CHALO RAYMUNDO ACCOUNT: [id number] : 1990 LOCATION: ER AGE: 27 SEX: F EXAM STATUS: REG ER ORD. PHYSICIAN: CEDRIC MELENDEZ DO REASON: n/v PROCEDURE: ABDOMEN SUPINE & UPRIGHT Abdominal radiograph 08/05/2017 at 1404 hours Indication: Abdominal pain with nausea and vomiting Comparison: CT abdomen/pelvis 06/15/2017 Technique: Upright and supine views of the abdomen are provided. Findings: The lung bases are clear. There is no free intraperitoneal air. There are no dilated loops of small or large bowel. Moderate amount of fecal contents identified throughout the colon. No differential air-fluid levels are identified. No suspicious calcifications are present. There is mild gaseous distention of the stomach. No significant osseous abnormality is identified. Impression: Nonobstructive bowel gas pattern. Moderate amount of fecal contents noted. DICTATED AND SIGNED BY: ALXEIS OSORIO MD DATE: 08/05/17 [id number] CC: ESVIN ROLLINS; CEDRIC MELENDEZ DO ~ PCXR: no acute Pertinent labs: White blood cells 5, sodium 135, potassium 3.3, glucose 277, BUNs 14, creatinine 0.9, anion gap 7, urine drug screen positive for methamphetamine, urinalysis positive squamous cells with 11-20 white blood cells of 500 glucose no ketones leukocyte esterase and nitrates. 1515: Patient has been resting throughout the ED course with no nausea or vomiting. 6 units of regular insulin IV as well as 40 mEq of oral potassium given. Patient received normal saline 1 L bolus on arrival. Medics and fentanyl for discomfort. I discussed findings and need for gastroenterology follow-up. Patient states she cannot do this until at least October. I discussed discharge planning no narcotic medications which would worsen gastroparesis. Will add Phenergan suppositories continue Reglan also add dicyclomine for cramping. Patient to follow up with her doctor on Monday and discontinue substance abuse. She her mother expressed agreement and understanding with the treatment plan. Departure Time of Disposition: 14:52 Disposition: HOME, SELF-CARE Diagnosis: gastroparesis, DM uncontrolled, methamphetamine ab Patient Instructions: Diabetes Meal Planning Guide, Gastroparesis, Methamphetamine Abuse, Complications Additional Instructions: No driving or operating machinery while under the influence of sedative medications. Discontinue substance abuse, seeking medical assistance if necessary. Continue glucose monitoring and control. Small frequent sips of Gatorade to ensure her electrolyte status remains stable. Continue current medications. Prescription: Phenergan suppositories 25 mg #20, dicyclomine Follow-up with your doctor on Monday for recheck. Return to ED with new or changing symptoms. CEDRIC MELENDEZ DO Aug 05, 2017 13:12
[2017-08-05] MEDS: IV NORMAL SALINE 1,000ML 1,000 ML IV SCH (13:15)
[2017-08-05] MEDS ORDERED: ONDANSETRON PF 4 MG/2 ML VIAL. ONE (13:28)
--- NOTE | 2017-08-05 13:36 | EKG ---
[address] [address] Test Date: 2017-08-05 Test Time: 13:08:45 Pat Name: CHALO RAYMUNDO Department: Room: Gender: F Director Of Finance: TRAVIS : 1990 Requested By: CEDRIC MELENDEZ Order Number: [id number] Reading MD: Alex Espinoza Measurements Intervals [place] Rate: 112 P: 48 [place]: 136 QRS: 59 QRSD: 82 T: 38 QT: 314 QTc: 430 Interpretive Statements SINUS TACHYCARDIA Electronically Signed On 08-07-2017 13:13:25 CDT by Alex Espinoza
[2017-08-05 13:41] LABS: BASO # 0.1 x10^3/uL (0.0-0.2); BASO % 2 % (0-3); EOS # 0.1 x10^3/uL (0.0-0.7); EOS % 3 % (0-3); HEMATOCRIT 36.7 % (36.0-47.0); HEMOGLOBIN 12.4 g/dL (12.0-15.5); LYMPH # 1.8 x10^3/uL (1.0-4.8); LYMPH % 36 % (24-48); MEAN CORPUSCULAR HEMOGLOBIN 30 pg (25-35); MEAN CORPUSCULAR HGB CONC 34 g/dL (31-37); MEAN CORPUSCULAR VOLUME 89 fL (79-100); MONO # 0.6 x10^3/uL (0.0-1.1); MONO % 11 % (0-9); NEUT # 2.4 x10^3uL (1.8-7.7); NEUT % 48 % (31-73); PLATELET COUNT 307 x10^3/uL (140-400); RED BLOOD COUNT 4.15 x10^6/uL (3.50-5.40)
--- NOTE | 2017-08-05 13:49 | RAD ---
Chest radiograph 08/05/2017 2:57 PM Indication: Chest pain Comparison: Chest radiograph 06/12/2017 Technique: Single portable upright frontal view of the chest is provided. Findings: Cardiomediastinal silhouette is within normal limits. No pleural effusions, pulmonary vascular congestion or pneumothorax. The lungs are clear. Osseous structures are normal. Impression: No acute cardiopulmonary process.
[2017-08-05 13:58] LABS: BARBITURATES NEG (NEG); BENZODIAZEPINES NEG (NEG); CANNABINOIDS NEG (NEG); COCAINE NEG (NEG); METHADONE NEG (NEG); OPIATES NEG (NEG); PHENCYCLIDINE NEG (NEG)
[2017-08-05 14:00] LABS: AMPHETAMINE/METHAMPHETAMINE POS (NEG)
[2017-08-05] MEDS: fentaNYL PF 100 MCG/2 ML VIAL IV PRN (14:05)
[2017-08-05 14:08] LABS: BACTERIA,URINE FEW /HPF (0-FEW); BILIRUBIN,URINE NEG (NEG); CLARITY,URINE CLOUDY; COLOR,URINE STRAW; GLUCOSE,URINE 500 mg/dL (NEG); NITRITE,URINE NEG (NEG); RBC,URINE RARE /HPF (0-2); UROBILINOGEN,URINE 0.2 mg/dL (0.2 mg/dL)
[2017-08-05 14:09] LABS: ALBUMIN 3.3 g/dL (3.4-5.0); CALCIUM 8.4 mg/dL (8.5-10.1); CREATININE 0.9 mg/dL (0.6-1.0); GFR 75.7; POTASSIUM 3.3 mmol/L (3.5-5.1); TOTAL BILIRUBIN 0.1 mg/dL (0.2-1.0); TOTAL PROTEIN 6.7 g/dL (6.4-8.2)
[2017-08-05 14:09] LABS: SQUAMOUS EPITHELIAL CELL,UR MOD /LPF
--- NOTE | 2017-08-05 14:48 | RAD ---
Abdominal radiograph 08/05/2017 at 1404 hours Indication: Abdominal pain with nausea and vomiting Comparison: CT abdomen/pelvis 06/15/2017 Technique: Upright and supine views of the abdomen are provided. Findings: The lung bases are clear. There is no free intraperitoneal air. There are no dilated loops of small or large bowel. Moderate amount of fecal contents identified throughout the colon. No differential air-fluid levels are identified. No suspicious calcifications are present. There is mild gaseous distention of the stomach. No significant osseous abnormality is identified. Impression: Nonobstructive bowel gas pattern. Moderate amount of fecal contents noted.
[2017-08-05] MEDS ORDERED: PROM25SU32 RC (14:50)
[2017-08-05] MEDS ORDERED: DICY20TA3 PO (14:50)
[2017-08-05] MEDS: POTASSIUM CHLORIDE 20 MEQ/15 ML ORAL LIQUID. PO ONE (15:00)
[2017-08-05] MEDS: INSULIN REGULAR 100 UNIT/ML 10ML VIAL. IV ONE (15:00)
== END 2017-08-05 15:20 | disposition home or self-care (01) ==
LOC: ER 12:43
DX: K31.84 Gastroparesis (principal); E11.65 Type 2 diabetes mellitus with hyperglycemia; E11.43 Type 2 diabetes mellitus with diabetic autonomic (poly)neuropathy; F15.10 Other stimulant abuse, uncomplicated; E13.10 Other specified diabetes mellitus with ketoacidosis without coma; Z88.8 Allergy status to other drugs, medicaments and biological substances; Z88.6 Allergy status to analgesic agent; Z91.041 Radiographic dye allergy status
CPT/HCPCS: 36415; 71010; 74020; 80053; 80307; 81001; 82550; 82947; 83690; 83735; 84484; 85025; 87086; 87186; 93005; 96361; 96374; 96375; 99285; G0480; J1815; J3010; G0479; J7030

== ENCOUNTER 2017-08-28 17:03 | Emergency (ER) | payer SELFPAY ==
[~2017-08-28] VITALS: Ht 170.2 cm; Wt 61.4 kg
[2017-08-28 17:05] VITALS: BP 112/36
--- NOTE | 2017-08-28 17:35 | PHYS DOC ---
Text Text Documentation of Evy Francois MD: 27-year-old female with history of type 1 diabetes presenting to the emergency department today with hypoglycemia signed out to me at 6 PM with plans to follow -up on the patient's repeat blood sugar and reexamine the patient. On examination the patient is feeling much better her blood sugar is 170. She has eaten a full meal. She reports taking 17 units of Humalog and 15 units of Lantus at 1400. On examination the patient's abdomen is soft and nontender. Lungs are clear to auscultation. The patient was then discharged home in stable condition to follow up with their primary care physician over the next 2-3 days. They were to return if their symptoms worsened or if they were concerned for any reason. [id number] discharge instructions and return precautions were given. Patient's questions were answered to their satisfaction. Patient is comfortable plan. (EVY FRANCOIS MD) General Chief Complaint: HYPOGLYCEMIA Stated Complaint: HYPOGLYCEMIA Time Seen by MD: 17:15 Source: patient, RN/MD, EMS Exam Limitations: clinical condition Problems: (CEDRIC MELENDEZ DO) Time Seen by MD: 18:14 Problems: (EVY FRANCOIS MD) History of Present Illness Initial Comments Pt is very brittle diabetic 27/F to ED via EMS for hypoglycemia. Pt says that 1400 today she took her sugar at home and it was 325. She gave herself 15 units of Lantus and 17 units of Humalog and says her intention was to get up and get something to eat. She was found prior to arrival unresponsive by family reportedly hypoglycemic and EMS was called. She received 50 g of oral glucose, as well ham sandwich and EMS reports that her blood glucose was 28 in route to this facility. On arrival it has improved to 54 and patient is drowsy but awake and oriented 3 requesting no needle sticks or testing. She is agreeable to eating a lunch here and retesting of her sugar to ensure glycemic stability. Other than being tired she denies any focal complaints. Patient is known to be noncompliant and has numerous ED/inpatient admission for DKA however patient states she has been making great efforts to control her disease. She denies any complaint otherwise. Timing/Duration: changing over time Severity: severe Modifying Factors: improves with eating, worse with medication Associated Symptoms: syncope, weakness, other (CEDRIC MELENDEZ DO) Allergies: Coded Allergies: acetaminophen (Verified Allergy, Intermediate, HIVES, 07/21/17) "WHEN I HAD MY ANKLE BX THEY GAVE ME TYLENOL AND I GOT HIVES ON MY LEG." adhesive tape (Verified Allergy, Intermediate, 07/21/17) I S O L A T I O N *CONTACT* (Verified Allergy, Unknown, 07/21/17) +MRSA nares 05-15-17 Past Medical History Medical History: diabetes, other (very brittle diabetes with noncompliance and numerous admissions for DKA, methamphetamine abuse) Surgical History: noncontributory (CEDRIC MELENDEZ DO) Social History Smoker: non-smoker Alcohol: none Drugs: other (history of marijuana and methamphetamine abuse claims sobriety currently.) (CEDRIC MELENDEZ DO) Review of Systems Constitutional: denies chills, denies diaphoresis, denies fever, malaise Respiratory: denies cough, denies shortness of breath, denies wheezing Cardiovascular: denies chest pain, denies palpitations, syncope Gastrointestinal: denies abdominal pain, denies diarrhea, denies nausea, denies vomiting Genitourinary: denies dysuria, denies frequency, denies hematuria Musculoskeletal: denies back pain, denies joint swelling, denies neck pain Psychiatric/Neurological: see HPI (CEDRIC MELENDEZ DO) Physical Exam General Appearance: WD/WN, no apparent distress Eyes: bilateral eye normal inspection, bilateral eye PERRL, bilateral eye EOMI Ear, Nose, Throat: hearing grossly normal, normal ENT inspection, normal pharynx Neck: non-tender, supple Respiratory: normal breath sounds, no respiratory distress Cardiovascular: normal peripheral pulses, regular rate, rhythm Gastrointestinal: non tender, soft Extremities: non-tender, normal inspection Neurologic/Psychiatric: 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 Patient will be signed out to Dr. Francois at 1800 shift change, see his documentation for further results and patient disposition. (CEDRIC MELENDEZ DO) CEDRIC MELENDEZ DO Aug 28, 2017 17:35 EVY FRANCOIS MD Aug 28, 2017 19:23
== END 2017-08-28 18:35 | disposition home or self-care (01) ==
LOC: ER 17:03
DX: E10.649 Type 1 diabetes mellitus with hypoglycemia without coma (principal); E10.10 Type 1 diabetes mellitus with ketoacidosis without coma; F15.10 Other stimulant abuse, uncomplicated; Z88.8 Allergy status to other drugs, medicaments and biological substances; Z88.6 Allergy status to analgesic agent; Z91.041 Radiographic dye allergy status
CPT/HCPCS: 82947; 99284

== ENCOUNTER 2017-09-02 12:52 | Emergency (ER) | payer SELFPAY ==
[~2017-09-02] VITALS: Ht 170.2 cm; Wt 61.4 kg
[2017-09-02] MEDS ORDERED: IV NORMAL SALINE 1,000ML 1,000 ML IV SCH (13:07)
[2017-09-02 13:58] LABS: BASO % 1 % (0-3); EOS # 0.1 x10^3/uL (0.0-0.7); EOS % 3 % (0-3); HEMATOCRIT 42.7 % (36.0-47.0); HEMOGLOBIN 14.3 g/dL (12.0-15.5); LYMPH # 1.6 x10^3/uL (1.0-4.8); LYMPH % 34 % (24-48); MEAN CORPUSCULAR HEMOGLOBIN 30 pg (25-35); MEAN CORPUSCULAR HGB CONC 34 g/dL (31-37); MEAN CORPUSCULAR VOLUME 89 fL (79-100); MONO # 0.5 x10^3/uL (0.0-1.1); MONO % 9 % (0-9); NEUT # 2.6 x10^3uL (1.8-7.7); NEUT % 54 % (31-73); PLATELET COUNT 266 x10^3/uL (140-400); RED BLOOD COUNT 4.79 x10^6/uL (3.50-5.40); WHITE BLOOD COUNT 4.8 x10^3/uL (4.0-11.0)
--- NOTE | 2017-09-02 14:04 | EKG ---
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
[2017-09-02 14:14] LABS: BARBITURATES NEG (NEG); BENZODIAZEPINES NEG (NEG); CANNABINOIDS NEG (NEG); COCAINE NEG (NEG); METHADONE NEG (NEG); OPIATES NEG (NEG); PHENCYCLIDINE NEG (NEG)
[2017-09-02 14:15] LABS: AMPHETAMINE/METHAMPHETAMINE POS (NEG)
[2017-09-02] MEDS ORDERED: HALOPERIDOL LACT 5 MG/ML VIAL. IVP ONE (14:15)
--- NOTE | 2017-09-02 14:19 | RAD ---
Portable AP view CXR: Clinical indications: Shortness of breath with chest pain. History of asthma. Comparison: August 05, 2017. Findings: No acute lung infiltrate or pleural effusion or pulmonary edema or lung mass or pneumothorax is seen. The heart size, pulmonary vasculature, mediastinum and both lyndsay are unremarkable. Impression: No acute radiographic abnormality is seen.
--- NOTE | 2017-09-02 15:11 | PHYS DOC ---
Past History Past Medical History: Diabetes, Other Additional Past Medical Histor: pt reports several admissions for "high blood sugar" Past Surgical History: No Surgical History Smoking: Less than 1pk/day Alcohol Use: None Drug Use: Methamphetamine Adult General Chief Complaint Chief Complaint: CHEST PAIN, high blood sugar HPI HPI Patient is a 27-year-old female, type I diabetic, who presents not feeling well today. She has had some pain in her left upper chest all week long, it has been more intermittent and mild, it hurts more today and has been more constant. It hurts worse to take a deep breath. She does not really feel short of breath. She denies fever or chills, denies cough. She has not really had this type of pain before. Also states her blood sugar has been running high for 2 days. She had an episode of hypoglycemia at the beginning of the week, reportedly she had a seizure, she was brought to the ED by EMS at that time, states that for the last 2 days her blood sugar now has been high. This morning about 2 hours ago she ate the sausage off of a biscuit and also hashbrowns. She vomited shortly after that. She does have Zofran at home and it helps sometimes. This morning she took 15 units of long-acting insulin N 15 units of short- acting insulin. She usually takes long-acting insulin 15 units twice a day and short acting insulin with meals and on a sliding scale. Review of Systems Review of Systems Constitutional: Denies fever or chills [] Eyes: Denies change in visual acuity, redness, or eye pain [] HENT: Denies nasal congestion or sore throat [] Respiratory: Denies cough or shortness of breath [] Cardiovascular: Chest pain that sounds pleuritic as in history of present illness GI: Denies abdominal pain : Denies dysuria or hematuria [] Musculoskeletal: Denies back pain or joint pain [] Integument: Denies rash or skin lesions [] Current Medications Current Medications Current Medications Medications (Trade) Dose Ordered Sig/Chevy Start Time Stop Time Status Last Admin Dose Admin Haloperidol Lactate (Haldol) 2.5 mg 1X ONCE 09/02/17 14:15 09/02/17 14:16 DC 09/02/17 14:15 2.5 MG Sodium Chloride 1,000 ml @ 1,000 mls/hr Q1H 09/02/17 13:07 09/02/17 14:06 DC 09/02/17 13:07 1,000 MLS/HR Allergies Allergies Allergies Coded Allergies Type Severity Reaction Last Updated Verified acetaminophen Allergy Intermediate HIVES 07/21/17 Yes adhesive tape Allergy Intermediate 07/21/17 Yes I S O L A T I O N *CONTACT* Allergy Unknown 07/21/17 Yes Physical Exam Physical Exam Constitutional: Thin, 27-year-old female, alert, mentating normally, tachycardic , warm and dry. HENT: Normocephalic, atraumatic, bilateral external ears normal, nose normal. [] Eyes: conjunctiva normal, no discharge. [] Neck: Normal range of motion, no stridor. [] Cardiovascular:Heart rate regular rhythm, no murmur [] Lungs & Thorax: Bilateral breath sounds clear to auscultation [] Abdomen: Bowel sounds normal, soft, no tenderness, no masses, no pulsatile masses. [] Skin: Warm, dry, no erythema, no rash. [] Extremities: No tenderness, no cyanosis, no clubbing, ROM intact, no edema. [] Neurologic: Alert and oriented X 3, normal motor function, no focal deficits noted. [] Current Patient Data Vital Signs Vital Signs Date Time Temp Pulse Resp B/P (MAP) Pulse Ox O2 Delivery O2 Flow Rate FiO2 09/02/17 12:56 98.3 125 16 99 Room Air Lab Results Laboratory Tests Test 09/02/17 13:40 09/02/17 13:50 09/02/17 13:51 White Blood Count 4.8 x10^3/uL (4.0-11.0) Red Blood Count 4.79 x10^6/uL (3.50-5.40) Hemoglobin 14.3 g/dL (12.0-15.5) Hematocrit 42.7 % (36.0-47.0) Mean Corpuscular Volume 89 fL (79-100) Mean Corpuscular Hemoglobin 30 pg (25-35) Mean Corpuscular Hemoglobin Concent 34 g/dL (31-37) Red Cell Distribution Width 15.0 % (11.5-14.5) H Platelet Count 266 x10^3/uL (140-400) Neutrophils (%) (Auto) 54 % (31-73) Lymphocytes (%) (Auto) 34 % (24-48) Monocytes (%) (Auto) 9 % (0-9) Eosinophils (%) (Auto) 3 % (0-3) Basophils (%) (Auto) 1 % (0-3) Neutrophils # (Auto) 2.6 x10^3uL (1.8-7.7) Lymphocytes # (Auto) 1.6 x10^3/uL (1.0-4.8) Monocytes # (Auto) 0.5 x10^3/uL (0.0-1.1) Eosinophils # (Auto) 0.1 x10^3/uL (0.0-0.7) Basophils # (Auto) 0.0 x10^3/uL (0.0-0.2) Urine Opiates Screen Neg (NEG) Urine Methadone Screen Neg (NEG) Urine Barbiturates Neg (NEG) Urine Phencyclidine Screen Neg (NEG) Urine Amphetamine/Methamphetamine Pos (NEG) Urine Benzodiazepines Screen Neg (NEG) Urine Cocaine Screen Neg (NEG) Urine Cannabinoids Screen Neg (NEG) Urine Ethyl Alcohol Neg (NEG) POC Troponin I 0.00 ng/ml (<0.08) EKG EKG 12-lead EKG read by me. Sinus tachycardia. Heart rate 115. There are no acute ST or T wave changes indicative of ischemia or infarction. No STEMI. 1304[] Radiology/Procedures Radiology/Procedures One view portable chest x-ray read by the radiologist. No acute findings.[] Course & Med Decision Making Course & Med Decision Making Pertinent Labs and Imaging studies reviewed. (See chart for details) 27-year-old female who is a type I diabetic frequently seen in the ED for DKA, vomiting, and other diabetes-related complaints. Today comes in with a high blood sugar for 2 days, vomiting for 2 days, and left upper chest pain that sounds pleuritic in nature. She does not feel short of breath. Her EKG is normal. Her troponin is 0. Patient was given 1 L IV normal saline. I reviewed her chart and it looks like she has had a small dose of Haldol in the past with improvement of her vomiting , so I tried that today and that did seem to help. She did not have further vomiting in the ED. Patient had good results from the IV Haldol and did not have any further vomiting in the ED. It did make her very sleepy. Patient's labs showed no DKA, glucose is elevated but not out of range for this patient. She has not had anything to eat all day and we treated her hyperglycemia with normal saline, I am reluctant to give her any significant amount of insulin because she has not eaten. Discussed this with the patient and her mother agree. Chest pain evaluation was reassuring with negative d-dimer, negative cardiac enzymes, normal chest x-ray and EKG. I believe the patient is stable for discharge. Her mother will be taking her home and keep an eye on her. I cautioned her to avoid too much insulin since she has not had anything to eat today. [] Dragon Disclaimer Dragon Disclaimer This chart was dictated in whole or in part using Voice Recognition software in a busy, high-work load, and often noisy Emergency Department environment. It may contain unintended and wholly unrecognized errors or omissions. Departure Departure: Impression: Primary Impression: Nausea & vomiting Additional Impressions: Type I diabetes mellitus Hyperglycemia Chest pain Disposition: 01 HOME, SELF-CARE Condition: IMPROVED Referrals: ESVIN ROLLINS (PCP) Patient Instructions: Nausea and Vomiting, [id number] Additional Instructions: Get plenty of sleep today. No driving for 12 hours due to the medication you were given in the emergency department. Small amounts of fluids such as Gatorade frequently. Don't eat anything spicy or greasy, nothing in large quantities, and total your stomach settles down. Stay on the low side of your insulin dosage while you are eating, we don't want you to get a low blood sugar again. Problem Qualifiers HANNAH ANTUNEZ MD Sep 02, 2017 15:11
[2017-09-02 15:22] LABS: ALBUMIN 3.7 g/dL (3.4-5.0); ALBUMIN/GLOBULIN RATIO 1.2 (1.0-1.7); CALCIUM 8.8 mg/dL (8.5-10.1); CREATININE 0.8 mg/dL (0.6-1.0); GFR 86.7; MAGNESIUM 1.7 mg/dL (1.8-2.4); POTASSIUM 4.4 mmol/L (3.5-5.1); TOTAL BILIRUBIN 0.5 mg/dL (0.2-1.0); TOTAL PROTEIN 6.9 g/dL (6.4-8.2)
[2017-09-02 16:00] VITALS: BP 121/80
[2017-09-02 16:03] LABS: BGAS PH 7.39 (7.35-7.45)
== END 2017-09-02 16:16 | disposition home or self-care (01) ==
LOC: ER 12:56
DX: R11.2 Nausea with vomiting, unspecified (principal); E10.649 Type 1 diabetes mellitus with hypoglycemia without coma; F15.10 Other stimulant abuse, uncomplicated; R07.89 Other chest pain; F17.200 Nicotine dependence, unspecified, uncomplicated; Z88.8 Allergy status to other drugs, medicaments and biological substances; Z88.6 Allergy status to analgesic agent; Z91.041 Radiographic dye allergy status
CPT/HCPCS: 36415; 71010; 80053; 80307; 82553; 82803; 83690; 83735; 83880; 84484; 85025; 85379; 93005; 96361; 96374; 99285; J1630; G0479; J7030

== ENCOUNTER 2017-09-13 21:27 | Inpatient (IN) | payer SELFPAY ==
[~2017-09-13] VITALS: Ht 170.2 cm; Wt 66.2 kg
[2017-09-13] MEDS ORDERED: IV NORMAL SALINE 1,000ML 1,000 ML IV SCH ×2 (21:39→23:19)
[2017-09-13] MEDS ORDERED: HALOPERIDOL LACT 5 MG/ML VIAL. IVP ONE (21:45)
--- NOTE | 2017-09-13 21:51 | ED.ADGEN ---
Past History Past Medical History: Diabetes, Other Additional Past Medical Histor: pt reports several admissions for "high blood sugar" Past Surgical History: No Surgical History Smoking: Less than 1pk/day Alcohol Use: None Drug Use: Methamphetamine Adult General HPI HPI Patient is a 27-year-old female, history of type 1 diabetes mellitus, with multiple evaluations for hyperglycemia, and several admissions for DKA, who presents to the emergency department via EMS with a complaint of intractable nausea and vomiting. Patient states that she's been experiencing multiple episodes of nausea and vomiting throughout the day, also high blood sugars. Patient states that she is having pain in her epigastric region, radiating up to her throat. No diarrhea, no lower abdominal pain, no hematemesis. No cough or difficulty breathing. She denies any fevers, complains of occasional chills. States that she does have "dark urine", denies any dysuria, states she has had some frequency and urgency. She denies any weakness, numbness, tingling, chest pain, shortness of breath, headache, swelling of the extremities, rashes, sick contacts or exposures, travel. Date she has been compliant with medications, denies any drugs, alcohol or cigarette use. Denies any injuries. Patient's Accu- Chek upon arrival to the emergency department is 299. Review of Systems Review of Systems Constitutional: Denies fever, complaining of occasional chills. Eyes: Denies change in visual acuity, redness, or eye pain [] HENT: Denies nasal congestion or sore throat [] Respiratory: Denies cough or shortness of breath [] Cardiovascular: No additional information not addressed in HPI [] GI: Upper abdominal pain, nausea, vomiting, no bloody stools or diarrhea. : Denies dysuria or hematuria, complaining of frequency and "dark urine". Musculoskeletal: Denies back pain or joint pain [] Integument: Denies rash or skin lesions [] Neurologic: Denies headache, focal weakness or sensory changes [] Endocrine: Denies polyuria or polydipsia [] Current Medications Current Medications Current Medications Medications (Trade) Dose Ordered Sig/Chevy Start Time Stop Time Status Last Admin Dose Admin Dextrose/Sodium Chloride 1,000 ml @ 0 mls/hr Q0M 09/13/17 23:19 Haloperidol Lactate (Haldol) 2.5 mg 1X ONCE 09/13/17 21:45 09/13/17 21:49 DC Insulin Human Regular 150 unit/ Sodium Chloride 151.5 ml @ 0 mls/hr CONT PRN PRN 09/13/17 23:30 Metoclopramide HCl (Reglan) 10 mg STK-MED ONCE 09/13/17 21:54 09/13/17 21:55 DC Multi-Ingredient Mouthwash/Gargle (Gi Cocktail) 20 ml 1X ONCE 09/13/17 22:15 09/13/17 22:16 DC 09/13/17 22:15 20 ML Potassium Chloride 100 ml @ 100 mls/hr PRN Q1HR PRN 09/13/17 23:30 Sodium Chloride 1,000 ml @ 125 mls/hr Q8H 09/13/17 23:19 Allergies Allergies Allergies Coded Allergies Type Severity Reaction Last Updated Verified acetaminophen Allergy Intermediate HIVES 07/21/17 Yes adhesive tape Allergy Intermediate 07/21/17 Yes I S O L A T I O N *CONTACT* Allergy Unknown 07/21/17 Yes Physical Exam Physical Exam Constitutional: Well developed, well nourished, no acute distress, non-toxic appearance. [] HENT: Normocephalic, atraumatic, bilateral external ears normal, oropharynx moist, no oral exudates, nose normal. []Mucous membranes are moist. Eyes: PERRLA, EOMI, conjunctiva normal, no discharge. [] Neck: Normal range of motion, no tenderness, supple, no stridor. [] Cardiovascular: Tachycardic, S1, S2, no rubs or gallops. Lungs & Thorax: No wheezing, rhonchi, rales. No chest or crepitus or tenderness. Abdomen: Bowel sounds normal, soft, mild tenderness to palpation in the epigastric region, no rebound, rigidity, no guarding, no masses, no pulsatile masses. [] Skin: Warm, dry, no erythema, no rash. [] Back: No tenderness, no CVA tenderness. [] Extremities: No tenderness, no cyanosis, no clubbing, ROM intact, no edema. [ Negative Homans sign.] Neurologic: Alert and oriented X 3, normal motor function, normal sensory function, no focal deficits noted. [] Psychologic: Affect normal, judgement normal, mood normal. [] Current Patient Data Vital Signs Vital Signs Date Time Temp Pulse Resp B/P (MAP) Pulse Ox O2 Delivery O2 Flow Rate FiO2 09/13/17 21:30 98.3 121 18 99 Room Air Lab Results Laboratory Tests Test 09/13/17 22:40 White Blood Count 8.4 x10^3/uL (4.0-11.0) Red Blood Count 4.26 x10^6/uL (3.50-5.40) Hemoglobin 12.6 g/dL (12.0-15.5) Hematocrit 38.0 % (36.0-47.0) Mean Corpuscular Volume 89 fL (79-100) Mean Corpuscular Hemoglobin 30 pg (25-35) Mean Corpuscular Hemoglobin Concent 33 g/dL (31-37) Red Cell Distribution Width 14.7 % (11.5-14.5) H Platelet Count 305 x10^3/uL (140-400) Neutrophils (%) (Auto) 65 % (31-73) Lymphocytes (%) (Auto) 25 % (24-48) Monocytes (%) (Auto) 8 % (0-9) Eosinophils (%) (Auto) 1 % (0-3) Basophils (%) (Auto) 1 % (0-3) Neutrophils # (Auto) 5.5 x10^3uL (1.8-7.7) Lymphocytes # (Auto) 2.1 x10^3/uL (1.0-4.8) Monocytes # (Auto) 0.7 x10^3/uL (0.0-1.1) Eosinophils # (Auto) 0.1 x10^3/uL (0.0-0.7) Basophils # (Auto) 0.1 x10^3/uL (0.0-0.2) Sodium Level 127 mmol/L (136-145) L Potassium Level 4.2 mmol/L (3.5-5.1) Chloride Level 93 mmol/L (98-107) L Carbon Dioxide Level 17 mmol/L (21-32) L Anion Gap 17 (6-14) H Blood Urea Nitrogen 24 mg/dL (7-20) H Creatinine 0.6 mg/dL (0.6-1.0) Estimated GFR (Cockcroft-Gault) 120.8 BUN/Creatinine Ratio 40 (6-20) H Glucose Level 283 mg/dL (70-99) H Lactic Acid Level 0.8 mmol/L (0.4-2.0) Calcium Level 8.0 mg/dL (8.5-10.1) L Phosphorus Level 3.4 mg/dL (2.6-4.7) Total Bilirubin 0.6 mg/dL (0.2-1.0) Aspartate Amino Transferase (AST) 8 U/L (15-37) L Alanine Aminotransferase (ALT) 16 U/L (14-59) Alkaline Phosphatase 77 U/L (46-116) Total Protein 6.5 g/dL (6.4-8.2) Albumin 3.3 g/dL (3.4-5.0) L Albumin/Globulin Ratio 1.0 (1.0-1.7) Lipase 35 U/L (73-393) L Acetone Level Sm pos (NEG) EKG EKG EC09/12/49: Sinus tachycardia, heart rate 112 bpm, upright axis, QTC of 414, WA 136, QRS of 84, intervals within normal limits, no ST elevations or depressions, patient with knots P waves, possible P mitrale, no ST elevations or depressions, abnormal ECG, no evidence of acute ischemia, does not meet STEMI criteria. As interpreted by me. Radiology/Procedures Radiology/Procedures Acute abdominal series: 3 view: Patient with normal cardiopulmonary silhouette, no infiltrates, no effusions, pneumothorax, no soft tissue or bony abnormalities identified, no free air. Patient was stool and bowel gas throughout, no evidence of obstruction. As interpreted by me.[] Course & Med Decision Making Course & Med Decision Making Pertinent Labs and Imaging studies reviewed. (See chart for details) Patient received Reglan, Benadryl, IV fluids in the ED. Laboratory studies reveal a glucose of 283, with an anion gap of 17, sodium of 127, potassium of 4.2, bicarbonate 17. Patient is positive for acetone. Laboratory studies and history are consistent with diabetic ketoacidosis. Delay in obtaining urine, patient received a second liter of IV fluids, was initiated on the DKA protocol including insulin infusion with urine pending. I did discuss these findings with patient, at this time she states her nausea is fully resolved, and she is feeling much better, she has experienced no further vomiting in the ED. Vital signs improved, heart rate is now in the low 100s, blood pressures are 1 teens over 70s, oxygen saturation remains 100% on room air, respiratory rate is 14-16 unlabored. She is agreeable for admission or the hospital for treatment of her laboratory abnormalities and continue symptom management. Urinalysis reveals a few bacteria, with ketones, no evidence of leuk trase or nitrates, not indicative of a urinary tract infection, no indication for initiation of antibiotic treatment. Patient was also noted to be positive for methamphetamines. I did discuss findings as above with Dr. Pereira, hospitalist on- call, patient will require ICU level admission due to anion gap with laboratory studies to be obtained every 4 hours, and Accu-Cheks every 2 hours closed, in accordance with insulin protocol for DKA, patient was accepted to his service as a full admission to the ICU, with protocol as stated, bridge orders entered per discussion. Final Impression Final Impression [] Problems: Dragon Disclaimer Dragon Disclaimer This electronic medical record was generated, in whole or in part, using a voice recognition dictation system. Departure: Impression: Primary Impression: Diabetic ketoacidosis Additional Impressions: DM (diabetes mellitus) type 1, uncontrolled, with ketoacidosis Nausea & vomiting Disposition: ADMITTED INPATIENT Condition: IMPROVED Critical Care Time Critical care time was [15 minutes exclusive of procedures. ROBY SUAREZ DO Sep 13, 2017 21:51
[2017-09-13] MEDS ORDERED: METOCLOPRAMIDE HCL 10 MG/2 ML VIAL. ONE (21:54)
[2017-09-13] MEDS ORDERED: METOCLOPRAMIDE HCL 10 MG/2 ML VIAL. IV ONE (22:00)
--- NOTE | 2017-09-13 22:10 | EKG ---
[address] [address] Test Date: 2017-09-13 Test Time: 21:50:02 Pat Name: CHALO RAYMUNDO Department: Room: Gender: F Spanish Tutor: : 1990 Requested By: ROBY SUAREZ Order Number: [id number] Reading MD: Measurements Intervals Elizabeth Rate: 112 P: 66 ME: 136 QRS: 78 QRSD: 84 T: 38 QT: 302 QTc: 414 Interpretive Statements SINUS TACHYCARDIA LEFT ATRIAL ABNORMALITY ABNORMAL ECG RI6.01 No previous ECG available for comparison
[2017-09-13] MEDS ORDERED: LIDO:MAALOX 1:1 20 ML SINGLE DOSE PO ONE (22:15)
[2017-09-13 22:56] LABS: BASO # 0.1 x10^3/uL (0.0-0.2); BASO % 1 % (0-3); EOS # 0.1 x10^3/uL (0.0-0.7); EOS % 1 % (0-3); HEMOGLOBIN 12.6 g/dL (12.0-15.5); LYMPH # 2.1 x10^3/uL (1.0-4.8); LYMPH % 25 % (24-48); MEAN CORPUSCULAR HEMOGLOBIN 30 pg (25-35); MEAN CORPUSCULAR HGB CONC 33 g/dL (31-37); MEAN CORPUSCULAR VOLUME 89 fL (79-100); MONO # 0.7 x10^3/uL (0.0-1.1); MONO % 8 % (0-9); NEUT # 5.5 x10^3uL (1.8-7.7); NEUT % 65 % (31-73); PLATELET COUNT 305 x10^3/uL (140-400); RED BLOOD COUNT 4.26 x10^6/uL (3.50-5.40); RED CELL DISTRIBUTION WIDTH 14.7 % (11.5-14.5); WHITE BLOOD COUNT 8.4 x10^3/uL (4.0-11.0)
[2017-09-13] MEDS ORDERED: IV NORMAL SALINE 1,000ML 1,000 ML IV ONE (23:00)
[2017-09-13 23:05] LABS: ALBUMIN 3.3 g/dL (3.4-5.0); CREATININE 0.6 mg/dL (0.6-1.0); GFR 120.8; POTASSIUM 4.2 mmol/L (3.5-5.1); TOTAL BILIRUBIN 0.6 mg/dL (0.2-1.0); TOTAL PROTEIN 6.5 g/dL (6.4-8.2)
[2017-09-13] MEDS: IV NORMAL SALINE 1,000ML 1,000 ML IV SCH (23:19)
[2017-09-13] MEDS ORDERED: IV DEXTROSE 5 %-0.45 % NACL 1,000 ML IV SCH (23:19)
[2017-09-13] MEDS ORDERED: INSULIN REGULAR 150 UNIT in 0.9 % SODIUM CHLORIDE 150ML 150 ML IV PRN (23:30)
[2017-09-13] MEDS ORDERED: POTASSIUM CHLORIDE 10MEQ 100 ML IV PRN ×4 (23:30)
[2017-09-13] MEDS ORDERED: METOCLOPRAMIDE HCL 10 MG/2 ML VIAL. IV PRN (23:45)
[2017-09-13] MEDS ORDERED: DEXTROSE 50% 25 GM / 50ML DISP.SYRIN. IV PRN (23:45)
[2017-09-13] MEDS ORDERED: ONDANSETRON PF 4 MG/2 ML VIAL. IV PRN (23:45)
[2017-09-14] VITALS (8 sets, daily range): BP systolic 97–110; BP diastolic 57–69
[2017-09-14 00:15] LABS: BARBITURATES NEG (NEG); BENZODIAZEPINES NEG (NEG); CANNABINOIDS NEG (NEG); COCAINE NEG (NEG); METHADONE NEG (NEG); OPIATES NEG (NEG); PHENCYCLIDINE NEG (NEG)
[2017-09-14 00:21] LABS: AMPHETAMINE/METHAMPHETAMINE POS (NEG)
[2017-09-14 00:26] LABS: BILIRUBIN,URINE NEG (NEG); CLARITY,URINE CLEAR; COLOR,URINE YELLOW; GLUCOSE,URINE 500 mg/dL (NEG)
[2017-09-14 00:27] LABS: BACTERIA,URINE FEW /HPF (0-FEW); NITRITE,URINE NEG (NEG); RBC,URINE OCC /HPF (0-2); SQUAMOUS EPITHELIAL CELL,UR FEW /LPF; UROBILINOGEN,URINE 0.2 mg/dL (0.2 mg/dL)
[2017-09-14] MEDS ORDERED: 0.9 % SODIUM CHLORIDE 150ML 150 ML ONE (01:47)
[2017-09-14] MEDS ORDERED: INSULIN REGULAR 100 UNIT/ML 10ML VIAL. ONE (01:48)
[2017-09-14] MEDS ORDERED: POTASSIUM CL 20MEQ D5-0.45NACL 1,000 ML IV ONE (03:00)
[2017-09-14 04:12] LABS: CALCIUM 7.9 mg/dL (8.5-10.1); CREATININE 0.7 mg/dL (0.6-1.0); GFR 101.1; POTASSIUM 3.9 mmol/L (3.5-5.1)
[2017-09-14] MEDS ORDERED: PNEUMOC CONJ VACC 23-VALENT 0.5 ML VIAL. VAX IM ONE (04:30)
--- NOTE | 2017-09-14 07:18 | RAD ---
Acute abdomen series with chest, 3 views, 09/13/2017: History: Nausea, vomiting, abdominal pain There is a moderate amount of stool in the colon. The abdominal gas pattern is otherwise unremarkable. No free air seen in the abdomen. There is no evidence of organomegaly. A phlebolith type density is present in the right pelvis. The heart size is normal. The lungs are clear. There is no evidence of pleural fluid. IMPRESSION: No acute abdominal abnormality is detected.
[2017-09-14] MEDS ORDERED: DEXTROSE 50% 25 GM / 50ML DISP.SYRIN. IV PRN (07:45)
[2017-09-14] MEDS ORDERED: POTASSIUM CHLORIDE 20 MEQ TABLET.ER. PO ONE (08:30)
[2017-09-14] MEDS: IV NORMAL SALINE 1,000ML 1,000 ML IV SCH ×2 (08:53→15:19)
[2017-09-14] MEDS ORDERED: FLU VACC QS2017-18 (36MOS+)/PF 0.5 ML SYRINGE. VAX IM ONE (09:00)
[2017-09-14] MEDS: INSULIN ASPART 300 UNITS/3 ML INSULN.PEN SQ SCH ×4 (09:14→17:20)
[2017-09-14] MEDS ORDERED: buPROPion XL 150 MG TAB.ER.24H PO SCH (09:45)
[2017-09-14] MEDS ORDERED: INSULIN DETEMIR 300 UNITS/3 ML INSULN.PEN. SQ SCH (09:45)
[2017-09-14] MEDS ORDERED: DICYCLOMINE HCL 20 MG TABLET PO SCH (11:30)
[2017-09-14 15:01] LABS: CALCIUM 8.3 mg/dL (8.5-10.1); CREATININE 0.7 mg/dL (0.6-1.0); GFR 101.1; POTASSIUM 4.5 mmol/L (3.5-5.1)
--- NOTE | 2017-09-14 16:15 | SSS ---
ADMIT DATE: 09/14/2017 HISTORY OF PRESENT ILLNESS: This is a 27-year-old female patient who came yesterday complaining of recurrent bouts of nausea, vomiting who is known to have brittle type 1 diabetes mellitus with multiple evaluations and admission for diabetic ketoacidosis. She did complain of intractable nausea and vomiting. She stated that she has been experiencing this throughout the day and her blood sugar was high. She also complained of epigastric pain radiating to her throat. No diarrhea. No hematemesis, melena, hematochezia or any difficulty breathing. She was evaluated in the Emergency Room, was found to have hyperglycemia, dilutional hyponatremia with a serum sodium of 127. Her anion gap was slightly elevated at 17. Her blood sugar was 299. She was started on insulin drip and given a liter of normal saline and was admitted and continued on IV fluid and insulin drip that was stopped this morning. She ate her breakfast and kept it and ate also her lunch without any nausea or vomiting. We did repeat her lab works this afternoon, which showed that her sodium is 133, potassium 4.5, chloride 103, bicarbonate 24, anion gap 6, BUN 12, creatinine 0.7, her estimated GFR was 101. Unfortunately, the patient continues to abuse methamphetamine and amphetamine and we counseled her for that. As she has had no further nausea, vomiting and no abdominal pain, she is tolerating her diet and her anion gap has normalized, a decision was made to discharge her home to continue with her current management. PAST MEDICAL HISTORY: Significant for brittle type 1 diabetes mellitus that is poorly controlled, recurrent episodes of DKA, abdominal pain, diabetic gastroparesis, chronic hypomagnesemia, chronic methamphetamine abuse, has had a history of tobacco use disorder. PAST SURGICAL HISTORY: Significant for placement of Port-A-Cath and removal, incision and drainage of a left axillary abscess. ALLERGIES: She is allergic to TYLENOL and ADHESIVE TAPE. MEDICATIONS: She is currently on the following medications: She is on Wellbutrin 150 mg extended release 1 tablet once a day, dicyclomine 20 mg 4 times a day before meals and bedtime. She is on NovoLog FlexPen as insulin sliding scale, Levemir insulin 15 units twice a day, ondansetron ODT 4 mg every 8 hours, promethazine for Phenergan 25 mg every 6 hours. FAMILY HISTORY: Unremarkable. SOCIAL HISTORY: She is single and lives with her mom. She continues unfortunately to abuse amphetamine. REVIEW OF SYSTEMS: As per history of present illness. PHYSICAL EXAMINATION GENERAL: When I examined her today, she was resting slightly propped up in bed, in no apparent respiratory distress, pale, but no jaundice, cyanosis, or thyromegaly. No jugular venous distention. No limb edema. VITAL SIGNS: Her heart rate was 107, blood pressure was 97/69, her temperature was 97.7, respiratory rate 21 and oxygen saturation was 98%. HEAD, EYES, EARS, NOSE AND THROAT: Showed normocephalic, atraumatic. NECK: Supple. HEART: Showed normal first and second heart sounds with no gallop, rub or murmur. CHEST: Clear to auscultation. No crepitation or rhonchi. ABDOMEN: Distended, soft, nontender. No guarding or rigidity. No organomegaly. All hernial orifices are intact. Bowel sounds normal. NEUROLOGIC: She was awake, alert, responding appropriately. Her cranial nerves are intact. She moves extremities without difficulty. She ambulates without assistance or assistive devices. LABORATORY DATA: Before discharge showed her serum sodium was 133, potassium 4.5, chloride 103, bicarbonate 24, anion gap of 6, BUN 12, creatinine 0.7, estimated GFR was 101, blood sugar was 319 and calcium was 8.3. Her white cell count was 8400, hemoglobin 12.6, hematocrit 38, MCV 89 and platelet count 305,000 with normal manual differential. FINAL DISCHARGE DIAGNOSES: 1. Mild diabetic ketoacidosis. 2. Dilutional hyponatremia. 3. Prerenal azotemia. 4. Brittle type 2 diabetes. 5. Diabetic gastroparesis. 6. Chronic hypomagnesemia. ANAYELI FOSS MD DR: JOSÉ/regina JOB#: [id number] / [id number]
== END 2017-09-14 17:52 | disposition home or self-care (01) | DRG 638 ==
LOC: ER 21:27 → ICU 23:33
PROVIDERS: ADMIT Internal Medicine; ATTEND Internal Medicine
DX: E10.10 Type 1 diabetes mellitus with ketoacidosis without coma (principal); E87.1 Hypo-osmolality and hyponatremia; K31.84 Gastroparesis; E10.43 Type 1 diabetes mellitus with diabetic autonomic (poly)neuropathy; F15.10 Other stimulant abuse, uncomplicated; E83.42 Hypomagnesemia; Z79.4 Long term (current) use of insulin; Z87.891 Personal history of nicotine dependence; Z88.8 Allergy status to other drugs, medicaments and biological substances
CPT/HCPCS: 36415; 74022; 80048; 80053; 80307; 81001; 81025; 82010; 82947; 83605; 83690; 83930; 84100; 85025; 87641; 90686; 93005; 96361; 96374; J1815; J2765; 99285-25; G0479; J7030

== ENCOUNTER 2017-09-20 20:36 | Emergency (ER) | payer SELFPAY ==
[~2017-09-20] VITALS: Ht 170.2 cm; Wt 61.4 kg
[2017-09-20] MEDS ORDERED: ONDANSETRON ODT 4 MG TAB.RAPDIS ONE (20:43)
[2017-09-20] MEDS ORDERED: DEXTROSE 50% 25 GM / 50ML DISP.SYRIN. IV ONE ×2 (20:43→21:00)
[2017-09-20] MEDS ORDERED: GLUCAGON,HUMAN RECOMBINANT 1 MG KIT. IM ONE (21:00)
[2017-09-20] MEDS ORDERED: ONDANSETRON ODT 4 MG TAB.RAPDIS PO ONE ×2 (21:00→21:45)
[2017-09-20] MEDS ORDERED: ONDANSETRON PF 4 MG/2 ML VIAL. IV ONE (21:00)
[2017-09-20] MEDS ORDERED: PROMETHAZINE IM 25 MG/ML VIAL IM ONE (22:15)
[2017-09-20] MEDS ORDERED: ONDANSETRON 4MG ODT 4TABLET STARTPACK. PO ONE ×2 (23:03→23:15)
[2017-09-20 23:04] VITALS: BP 133/92
--- NOTE | 2017-09-21 04:14 | ED.ADGEN ---
Past History Past Medical History: Diabetes, Other Additional Past Medical Histor: pt reports several admissions for "high blood sugar" Past Surgical History: No Surgical History Smoking: Less than 1pk/day Alcohol Use: None Drug Use: Methamphetamine Adult General Chief Complaint Chief Complaint Hypoglycemia, nausea vomiting HPI HPI Patient is a 27-year-old female with labile type 1 diabetes well-known to this emergency department who presents by private vehicle with decreased mental status, nausea vomiting and low blood sugar. Patient ate candy this morning this afternoon did not have a substantive meal but did take insulin. Started vomiting prior to ED arrival. Blood sugar in 30s on Accu-Chek. No other symptoms or complaints.[] Review of Systems Review of Systems Review symptoms as per history of present illness. Current Medications Current Medications Current Medications Medications (Trade) Dose Ordered Sig/Chevy Start Time Stop Time Status Last Admin Dose Admin Dextrose 25 gm 1X ONCE 09/20/17 21:00 09/20/17 21:01 DC 09/20/17 21:34 25 GM Glucagon (Glucagen Kit) 2 mg 1X ONCE 09/20/17 21:00 09/20/17 21:04 DC 09/20/17 21:25 1 MG Ondansetron HCl (Starter Pack - Zofran Odt) 1 startpack STK-MED ONCE 09/20/17 23:03 09/20/17 23:09 DC Ondansetron HCl (Zofran Odt) 4 mg 1X ONCE 09/20/17 21:45 09/20/17 21:46 DC 09/20/17 22:27 4 MG Ondansetron HCl (Zofran) 4 mg 1X ONCE 09/20/17 21:00 09/20/17 21:01 DC Promethazine HCl (Phenergan Im) 50 mg 1X ONCE 09/20/17 22:15 09/20/17 22:16 DC 09/20/17 22:27 50 MG Allergies Allergies Allergies Coded Allergies Type Severity Reaction Last Updated Verified acetaminophen Allergy Intermediate HIVES 07/21/17 Yes adhesive tape Allergy Intermediate 07/21/17 Yes I S O L A T I O N *CONTACT* Allergy Unknown 07/21/17 Yes Physical Exam Physical Exam Constitutional: Well developed, well nourished, no acute distress, non-toxic appearance. [] HENT: Normocephalic, atraumatic, bilateral external ears normal, oropharynx moist, no oral exudates, nose normal. [] Eyes: PERRLA, EOMI, conjunctiva normal, no discharge. [] Neck: Normal range of motion, no tenderness, supple, no stridor. [] Cardiovascular:Heart rate regular rhythm, no murmur [] Lungs & Thorax: Bilateral breath sounds clear to auscultation [] Abdomen: Bowel sounds normal, soft, no tenderness, no masses, no pulsatile masses. [] Skin: Warm, dry, no erythema, no rash. [] Back: No tenderness, no CVA tenderness. [] Extremities: No tenderness, no cyanosis, no clubbing, ROM intact, no edema. [] Neurologic: Alert and oriented X 3, normal motor function, normal sensory function, no focal deficits noted. [] Psychologic: Affect normal, judgement normal, mood normal. [] Current Patient Data Vital Signs Vital Signs Date Time Temp Pulse Resp B/P (MAP) Pulse Ox O2 Delivery O2 Flow Rate FiO2 09/20/17 23:04 97 16 133/92 (106) 99 Nasal Cannula 09/20/17 20:36 98.1 Lab Results Laboratory Tests Test 09/20/17 20:38 09/20/17 20:39 09/20/17 21:07 09/20/17 21:19 Glucose (Fingerstick) 32 mg/dL (70-99) *L 37 mg/dL (70-99) *L 47 mg/dL (70-99) L 46 mg/dL (70-99) L Test 09/20/17 21:45 09/20/17 22:38 Glucose (Fingerstick) 165 mg/dL (70-99) H 318 mg/dL (70-99) H EKG EKG [] Radiology/Procedures Radiology/Procedures [] Course & Med Decision Making Course & Med Decision Making Pertinent Labs and Imaging studies reviewed. (See chart for details) [Nausea persist despite Zofran. Some difficulty establishing IV. I am glucagon and Phenergan given. Patient nausea improved and tolerating by mouth intake. Blood sugar greater than 300. Recommend close glycemic monitoring treatment at home.] Final Impression Final Impression [#1 hypoglycemia #2 nausea and vomiting ] Problems: Dragon Disclaimer Dragon Disclaimer This electronic medical record was generated, in whole or in part, using a voice recognition dictation system. ROXY SMALL DO Sep 21, 2017 04:14
== END 2017-09-20 23:04 | disposition home or self-care (01) ==
LOC: ER 20:36
DX: E10.649 Type 1 diabetes mellitus with hypoglycemia without coma (principal); F17.200 Nicotine dependence, unspecified, uncomplicated; F15.10 Other stimulant abuse, uncomplicated; Z79.4 Long term (current) use of insulin; Z88.8 Allergy status to other drugs, medicaments and biological substances; Z88.6 Allergy status to analgesic agent; Z91.041 Radiographic dye allergy status
CPT/HCPCS: 82947; 96372; 96374; 99284; J1610; J2550; Q0162

== ENCOUNTER 2017-09-23 17:50 | Inpatient (IN) | payer SELFPAY ==
[~2017-09-23] VITALS: Ht 170.2 cm; Wt 62.2 kg
[2017-09-23] MEDS ORDERED: IV NORMAL SALINE 1,000ML 1,000 ML IV ONE (18:15)
[2017-09-23] MEDS ORDERED: ONDANSETRON PF 4 MG/2 ML VIAL. IV ONE (18:15)
[2017-09-23 19:43] LABS: BASO # 0.1 x10^3/uL (0.0-0.2); BASO % 1 % (0-3); EOS # 0.1 x10^3/uL (0.0-0.7); EOS % 1 % (0-3); HEMATOCRIT 47.9 % (36.0-47.0); HEMOGLOBIN 15.5 g/dL (12.0-15.5); LYMPH # 1.8 x10^3/uL (1.0-4.8); LYMPH % 24 % (24-48); MEAN CORPUSCULAR HEMOGLOBIN 29 pg (25-35); MEAN CORPUSCULAR HGB CONC 32 g/dL (31-37); MEAN CORPUSCULAR VOLUME 90 fL (79-100); MONO # 0.5 x10^3/uL (0.0-1.1); MONO % 7 % (0-9); NEUT # 5.2 x10^3uL (1.8-7.7); NEUT % 67 % (31-73); PLATELET COUNT 402 x10^3/uL (140-400); RED BLOOD COUNT 5.35 x10^6/uL (3.50-5.40); RED CELL DISTRIBUTION WIDTH 14.6 % (11.5-14.5); WHITE BLOOD COUNT 7.6 x10^3/uL (4.0-11.0)
[2017-09-23 19:52] LABS: ALBUMIN 4.2 g/dL (3.4-5.0); CALCIUM 9.3 mg/dL (8.5-10.1); CREATININE 1.2 mg/dL (0.6-1.0); GFR 54.3; MAGNESIUM 1.8 mg/dL (1.8-2.4); POTASSIUM 5.6 mmol/L (3.5-5.1); TOTAL BILIRUBIN 0.7 mg/dL (0.2-1.0); TOTAL PROTEIN 8.5 g/dL (6.4-8.2)
[2017-09-23] MEDS ORDERED: ONDANSETRON ODT 4 MG TAB.RAPDIS PO ONE (20:15)
[2017-09-23] MEDS ORDERED: INSULIN ASPART 300 UNITS/3 ML INSULN.PEN SQ ONE (20:15)
[2017-09-23] MEDS ORDERED: INSULIN REGULAR 150 UNIT in 0.9 % SODIUM CHLORIDE 150ML 150 ML IV ONE (21:00)
[2017-09-23] MEDS ORDERED: 0.9 % SODIUM CHLORIDE 150ML 150 ML ONE (21:56)
[2017-09-23 22:45] VITALS: BP 117/74
--- NOTE | 2017-09-23 23:11 | PHYS DOC ---
Past History Past Medical History: Diabetes, Other Additional Past Medical Histor: pt reports several admissions for "high blood sugar" Past Surgical History: No Surgical History Smoking: Less than 1pk/day Alcohol Use: None Drug Use: Methamphetamine Adult General Chief Complaint Chief Complaint: HYPERGLYCEMIA HPI HPI Patient is a 27 year old F who presents with nausea vomiting, dehydration and hyperglycemia. Alonso has a history of type 1 diabetes with multiple incidences of DKA. She was hospitalized recently for DKA. She feels her symptoms are similar to previous episodes of DKA. She states her symptoms have been constant with fluctuating intensity over the past 2-[address] days[address] associated dizziness and generalized weakness. She has no exacerbating or alleviating factors. Risk factors include a history of IV drug use. Review of Systems Review of Systems Constitutional: Denies fever or chills [] Eyes: Denies change in visual acuity, redness, or eye pain [] HENT: Denies nasal congestion or sore throat [] Respiratory: Denies cough or shortness of breath [] Cardiovascular: No additional information not addressed in HPI [] GI: Negative except history of present illness : Denies dysuria or hematuria [] Musculoskeletal: Denies back pain or joint pain [] Integument: Denies rash or skin lesions [] Neurologic: Denies headache, focal weakness or sensory changes [] Endocrine: Denies polyuria or polydipsia [] Family History Family History Noncontributory Current Medications Current Medications Current Medications Medications (Trade) Dose Ordered Sig/Chevy Start Time Stop Time Status Last Admin Dose Admin Insulin Aspart (NovoLOG) 10 units 1X ONCE 09/23/17 20:15 09/23/17 20:21 DC 09/23/17 20:15 10 UNITS Insulin Human Regular 150 unit/ Sodium Chloride 151.5 ml @ 0 mls/hr 1X ONCE 09/23/17 21:00 09/23/17 21:09 DC Ondansetron HCl (Zofran Odt) 4 mg 1X ONCE 09/23/17 20:15 09/23/17 20:21 DC Ondansetron HCl (Zofran) 4 mg 1X ONCE 09/23/17 18:15 09/23/17 18:17 DC 09/23/17 18:15 4 MG Sodium Chloride 150 ml @ As Directed STK-MED ONCE 09/23/17 21:56 09/23/17 21:57 DC Allergies Allergies Allergies Coded Allergies Type Severity Reaction Last Updated Verified acetaminophen Allergy Intermediate HIVES 07/21/17 Yes adhesive tape Allergy Intermediate 07/21/17 Yes I S O L A T I O N *CONTACT* Allergy Unknown 07/21/17 Yes Physical Exam Physical Exam Constitutional: Well developed, well nourished, no acute distress, mild distress HENT: Normocephalic, atraumatic, bilateral external ears normal, no oral exudates, nose normal. [] Dry mucous membranes Eyes: EOMI, conjunctiva normal, no discharge. [] Neck: Normal range of motion, no tenderness, supple, no stridor. [] Cardiovascular: Heart rate tachycardia but regular rhythm, no murmur [] Lungs & Thorax: Bilateral breath sounds clear to auscultation [] Abdomen: Bowel sounds normal, soft, no masses, no pulsatile masses. [] Mild generalized tenderness Skin: Warm, dry, no erythema, no rash. [] Back: No tenderness, no CVA tenderness. [] Extremities: No tenderness, no cyanosis, no clubbing, ROM intact, no edema. [] Neurologic: Alert and oriented X 3, normal motor function, normal sensory function, no focal deficits noted. [] Psychologic: Affect normal, judgement normal, mood normal. [] Current Patient Data Vital Signs Vital Signs Date Time Temp Pulse Resp B/P (MAP) Pulse Ox O2 Delivery O2 Flow Rate FiO2 09/23/17 22:19 127 20 123/87 (99) 99 Room Air 09/23/17 21:49 98.2 Lab Results Laboratory Tests Test 09/23/17 18:36 09/23/17 19:25 09/23/17 21:52 Glucose (Fingerstick) 489 mg/dL (70-99) H 303 mg/dL (70-99) H White Blood Count 7.6 x10^3/uL (4.0-11.0) Red Blood Count 5.35 x10^6/uL (3.50-5.40) Hemoglobin 15.5 g/dL (12.0-15.5) Hematocrit 47.9 % (36.0-47.0) H Mean Corpuscular Volume 90 fL (79-100) Mean Corpuscular Hemoglobin 29 pg (25-35) Mean Corpuscular Hemoglobin Concent 32 g/dL (31-37) Red Cell Distribution Width 14.6 % (11.5-14.5) H Platelet Count 402 x10^3/uL (140-400) H Neutrophils (%) (Auto) 67 % (31-73) Lymphocytes (%) (Auto) 24 % (24-48) Monocytes (%) (Auto) 7 % (0-9) Eosinophils (%) (Auto) 1 % (0-3) Basophils (%) (Auto) 1 % (0-3) Neutrophils # (Auto) 5.2 x10^3uL (1.8-7.7) Lymphocytes # (Auto) 1.8 x10^3/uL (1.0-4.8) Monocytes # (Auto) 0.5 x10^3/uL (0.0-1.1) Eosinophils # (Auto) 0.1 x10^3/uL (0.0-0.7) Basophils # (Auto) 0.1 x10^3/uL (0.0-0.2) Sodium Level 125 mmol/L (136-145) L Potassium Level 5.6 mmol/L (3.5-5.1) H Chloride Level 90 mmol/L (98-107) L Carbon Dioxide Level 9 mmol/L (21-32) *L Anion Gap 26 (6-14) H Blood Urea Nitrogen 25 mg/dL (7-20) H Creatinine 1.2 mg/dL (0.6-1.0) H Estimated GFR (Cockcroft-Gault) 54.3 BUN/Creatinine Ratio 21 (6-20) H Glucose Level 458 mg/dL (70-99) H Calcium Level 9.3 mg/dL (8.5-10.1) Magnesium Level 1.8 mg/dL (1.8-2.4) Total Bilirubin 0.7 mg/dL (0.2-1.0) Aspartate Amino Transferase (AST) 14 U/L (15-37) L Alanine Aminotransferase (ALT) 31 U/L (14-59) Alkaline Phosphatase 118 U/L (46-116) H Total Protein 8.5 g/dL (6.4-8.2) H Albumin 4.2 g/dL (3.4-5.0) Albumin/Globulin Ratio 1.0 (1.0-1.7) EKG EKG Sinus tachycardia Radiology/Procedures Radiology/Procedures [] Course & Med Decision Making Course & Med Decision Making Pertinent Labs and Imaging studies reviewed. (See chart for details) [] Dragon Disclaimer Dragon Disclaimer This chart was dictated in whole or in part using Voice Recognition software in a busy, high-work load, and often noisy Emergency Department environment. It may contain unintended and wholly unrecognized errors or omissions. Departure Departure: Impression: Primary Impression: Diabetes mellitus Additional Impression: DKA (diabetic ketoacidoses) Disposition: ADMITTED INPATIENT Condition: IMPROVED Referrals: ESVIN ROLLINS (PCP) Problem Qualifiers Primary Impression: Diabetes mellitus Diabetes mellitus type: type 1 Diabetes mellitus complication status: with hyperglycemia Qualified Codes: E10.65 - Type 1 diabetes mellitus with hyperglycemia Additional Impression: DKA (diabetic ketoacidoses) Diabetes mellitus type: type 1 Diabetes mellitus complication detail: without coma Qualified Codes: E10.10 - Type 1 diabetes mellitus with ketoacidosis without coma PERNELL YODER MD Sep 23, 2017 23:11
[2017-09-23 23:45] VITALS: BP 98/51
[2017-09-24] VITALS (9 sets, daily range): BP systolic 103–122; BP diastolic 60–75
[2017-09-24] MEDS ORDERED: IV NORMAL SALINE 1,000ML 1,000 ML IV ONE
[2017-09-24 00:34] LABS: CALCIUM 8.5 mg/dL (8.5-10.1); POTASSIUM 4.8 mmol/L (3.5-5.1)
[2017-09-24] MEDS ORDERED: INSULIN ASPART 300 UNITS/3 ML INSULN.PEN SQ ONE ×4 (01:00→04:30)
[2017-09-24] MEDS: IV NORMAL SALINE 1,000ML 1,000 ML IV SCH ×2 (01:00→12:43)
--- NOTE | 2017-09-24 02:00 | EKG ---
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
[2017-09-24 03:11] LABS: CREATININE 0.9 mg/dL (0.6-1.0); GFR 75.7; POTASSIUM 5.3 mmol/L (3.5-5.1)
[2017-09-24] MEDS ORDERED: DEXTROSE 50% 25 GM / 50ML DISP.SYRIN. IV PRN (08:45)
[2017-09-24] MEDS ORDERED: INSULIN DETEMIR 300 UNITS/3 ML INSULN.PEN. SQ SCH (09:00)
[2017-09-24] MEDS ORDERED: buPROPion XL 150 MG TAB.ER.24H PO SCH (09:00)
[2017-09-24] MEDS ORDERED: PANT40TA3 PO (09:25)
[2017-09-24] MEDS ORDERED: METO10TA81 PO (09:25)
[2017-09-24] MEDS ORDERED: MAGN400C PO (09:25)
[2017-09-24] MEDS ORDERED: DICYCLOMINE HCL 20 MG TABLET PO SCH (11:30)
[2017-09-24] MEDS ORDERED: PROMETHAZINE 25 MG SUPP.RECT. RC SCH (12:00)
[2017-09-24 12:18] LABS: CALCIUM 7.9 mg/dL (8.5-10.1); CREATININE 0.8 mg/dL (0.6-1.0); GFR 86.7; MAGNESIUM 1.6 mg/dL (1.8-2.4); POTASSIUM 4.4 mmol/L (3.5-5.1)
[2017-09-24] MEDS ORDERED: PROMETHAZINE 25 MG TABLET. PO PRN (12:45)
[2017-09-24] MEDS: INSULIN ASPART 300 UNITS/3 ML INSULN.PEN SQ SCH ×2 (12:45→14:34)
[2017-09-24] MEDS ORDERED: METOCLOPRAMIDE 10 MG TABLET PO SCH (13:00)
[2017-09-24] MEDS ORDERED: MAGNESIUM OXIDE 400 MG TABLET PO ONE (13:00)
--- NOTE | 2017-09-24 13:30 | HP ---
ADMIT DATE: REASON FOR ADMISSION: DKA. HISTORY OF PRESENT ILLNESS: This is a 27-year-old who has had multiple, multiple admissions over the course of last several years for DKA. At this time presented with nausea, vomiting, dehydration and hyperglycemia. She has been about 10 days since she was admitted previously. Her mother had gotten her job with her where she works, but she was fired due to absenteeism. PAST MEDICAL HISTORY: 1. Poorly controlled type 1 diabetes. 2. Tobacco use disorder - no longer smokes. 3. Intermittent methamphetamine abuse. 4. Chronic hypomagnesemia. 5. Diabetic-induced gastroparesis. 6. Depression and adjustment disorder. MEDICATIONS: Reviewed, corrected and are available on the MAR. She uses a supplemental scale short acting for her blood sugars. REVIEW OF SYSTEMS: A little milder than normal, usually has a lot of severe abdominal pain but not so much at this time. Otherwise, usual weakness, nausea and hyperglycemia. OBJECTIVE: VITAL SIGNS: Blood pressure 122/75, pulse was 114, temperature 98.4, pulse ox 97% on room air. GENERAL: Her color is actually pretty good. HEENT: Tongue is moist. NECK: Supple. LUNGS: Clear. CARDIOVASCULAR: Rapid rhythm and rate. ABDOMEN: Soft, is mildly tender. EXTREMITIES: Without edema. LABORATORY DATA: Hemoglobin 15.5, hematocrit 47.9 that is high for her showing dehydration. Chemistry: Initial labs, sodium 125, potassium 5.6, CO2 was 9, anion gap 26, BUN 25, creatinine 1.2, alkaline phosphatase 118. ASSESSMENT: 1. Diabetic ketoacidosis. 2. Volume depletion. 3. Hyperkalemia. 4. High anion gap acidosis. 5. Acute kidney injury secondary to acute tubular necrosis secondary to volume depletion. 6. Poorly controlled type 1 diabetes. 7. History of methamphetamine abuse, drugs not checked it today this time. PLAN: IV fluids, insulin and continue her home meds, and work toward discharge. BARRY MORELAND DO DR: DONNA/regina JOB#: [id number] / [id number]
[2017-09-24] MEDS ORDERED: ONDANSETRON ODT 4 MG TAB.RAPDIS PO SCH (14:00)
[2017-09-24] MEDS ORDERED: AMIT75TA PO (14:21)
[2017-09-24] MEDS ORDERED: TOPI50TA38 PO (14:21)
[2017-09-25] MEDS ORDERED: PANTOPRAZOLE 40 MG TABLET. PO SCH (09:00)
[2017-09-25] MEDS ORDERED: MAGNESIUM OXIDE 400 MG TABLET PO SCH (09:00)
== END 2017-09-24 17:00 | disposition home or self-care (01) | DRG 637 ==
LOC: ER 17:50 → ICU 22:45 → 1 SOUTH 09-24 05:09
PROVIDERS: ADMIT Family Medicine; ATTEND Family Medicine
DX: E10.10 Type 1 diabetes mellitus with ketoacidosis without coma (principal); N17.0 Acute kidney failure with tubular necrosis; K31.84 Gastroparesis; E10.43 Type 1 diabetes mellitus with diabetic autonomic (poly)neuropathy; E87.5 Hyperkalemia; E83.42 Hypomagnesemia; F15.10 Other stimulant abuse, uncomplicated; F19.90 Other psychoactive substance use, unspecified, uncomplicated; F43.21 Adjustment disorder with depressed mood; E86.0 Dehydration; Z79.4 Long term (current) use of insulin; Z87.891 Personal history of nicotine dependence
CPT/HCPCS: 36415; 80048; 80053; 82947; 83735; 85025; 87641; 93005; 96361; 96372; 96374; J1815; J2405; J8597; Q0162; 99285-25; J7030

== ENCOUNTER 2017-09-26 15:21 | Emergency (ER) | payer SELFPAY ==
[~2017-09-26 15:21] MED LIST changes: +AMIT75TA PO; +MAGN400C PO; +METO10TA81 PO; +PANT40TA3 PO; +TOPI50TA38 PO
[2017-09-26] MEDS ORDERED: IV NORMAL SALINE 1,000ML 1,000 ML IV SCH (15:35)
[2017-09-26 15:54] LABS: BASO % 0 % (0-3); EOS # 0.1 x10^3/uL (0.0-0.7); EOS % 2 % (0-3); HEMATOCRIT 38.3 % (36.0-47.0); HEMOGLOBIN 13.1 g/dL (12.0-15.5); LYMPH # 1.7 x10^3/uL (1.0-4.8); LYMPH % 28 % (24-48); MEAN CORPUSCULAR HEMOGLOBIN 29 pg (25-35); MEAN CORPUSCULAR HGB CONC 34 g/dL (31-37); MEAN CORPUSCULAR VOLUME 86 fL (79-100); MONO # 0.4 x10^3/uL (0.0-1.1); MONO % 6 % (0-9); NEUT % 64 % (31-73); PLATELET COUNT 334 x10^3/uL (140-400); RED BLOOD COUNT 4.47 x10^6/uL (3.50-5.40); RED CELL DISTRIBUTION WIDTH 14.8 % (11.5-14.5); WHITE BLOOD COUNT 6.3 x10^3/uL (4.0-11.0)
[2017-09-26] MEDS ORDERED: METOCLOPRAMIDE HCL 10 MG/2 ML VIAL. IV ONE (16:00)
[2017-09-26] MEDS ORDERED: ONDANSETRON PF 4 MG/2 ML VIAL. IV ONE (16:00)
[2017-09-26] MEDS ORDERED: FAMOTIDINE 20 MG/2 ML VIAL IVP ONE (16:00)
--- NOTE | 2017-09-26 16:08 | RAD ---
Portable AP upright view CXR: Clinical indications: Nausea and vomiting. Findings: There is asymmetric increased radiodensity of the right lower lung field. This may be related to the overlying bra. Recommend repeat chest x-ray without the bra. No pleural effusion or pneumothorax is seen. The heart size, pulmonary vasculature, mediastinum and both lyndsay are unremarkable. Impression: Asymmetric density of the right lower lung zone which may be related to an overlying bra. Recommend repeat chest x-ray without the bra.
[2017-09-26 16:13] LABS: ALBUMIN 3.8 g/dL (3.4-5.0); ALBUMIN/GLOBULIN RATIO 1.1 (1.0-1.7); CALCIUM 8.9 mg/dL (8.5-10.1); CREATININE 0.6 mg/dL (0.6-1.0); GFR 120.8; TOTAL BILIRUBIN 0.4 mg/dL (0.2-1.0); TOTAL PROTEIN 7.4 g/dL (6.4-8.2)
[2017-09-26 16:14] LABS: POTASSIUM 3.8 mmol/L (3.5-5.1)
[2017-09-26 17:30] VITALS: BP 128/83
--- NOTE | 2017-09-26 17:42 | PHYS DOC ---
General Chief Complaint: BLOOD SUGAR PROBLEM Stated Complaint: BLOOD SUGAR PROBLEM Time Seen by MD: 15:35 Source: patient, old records Exam Limitations: no limitations Problems: History of Present Illness Initial Comments Patient is a 27-year-old female who comes in the ED complaining of blood sugar problem abdominal pain or vomiting. Patient is well known to the department she has history of brittle diabetes with noncompliance and multiple ED admissions for DKA. She also has extensive history of methamphetamine abuse. She states that this morning she developed sudden onset severe abdominal pain with nausea and vomiting she states that her glucose is elevated. Heart rate 107 otherwise vitals are stable patient is well known to me and appears to be under the influence of methamphetamine once again. I asked the patient about this and she replied that she was still struggling with it. Timing/Duration: other Severity: severe Modifying Factors: worse with eating Associated Symptoms: nausea/vomiting, other Allergies: Coded Allergies: acetaminophen (Verified Allergy, Intermediate, HIVES, 07/21/17) "WHEN I HAD MY ANKLE BX THEY GAVE ME TYLENOL AND I GOT HIVES ON MY LEG." adhesive tape (Verified Allergy, Intermediate, 07/21/17) I S O L A T I O N *CONTACT* (Verified Allergy, Unknown, 07/21/17) +MRSA nares 05-15-17 Past Medical History Medical History: diabetes, other Surgical History: noncontributory Social History Smoker: non-smoker Alcohol: none Drugs: other (methamphetamine) Review of Systems Constitutional: denies chills, denies diaphoresis, denies fever Respiratory: denies cough, denies shortness of breath Cardiovascular: denies chest pain, denies palpitations Gastrointestinal: see HPI Genitourinary: denies dysuria, denies frequency, denies hematuria Musculoskeletal: denies back pain, denies joint swelling, denies neck pain Psychiatric/Neurological: denies headache, denies numbness, denies paresthesia Physical Exam General Appearance: moderate distress (nauseous, appears altered consistent with prior ED visits followed influence of methamphetamine.) Ear, Nose, Throat: hearing grossly normal, normal ENT inspection, normal pharynx Neck: non-tender, supple Respiratory: normal breath sounds, no respiratory distress Cardiovascular: normal peripheral pulses, tachycardia Gastrointestinal: normal bowel sounds, soft, other (generalized abdominal muscle tenderness negative McBurney negative Boudreaux no rebound guarding or masses) Back: no CVA tenderness, no vertebral tenderness Extremities: non-tender, normal inspection, no pedal edema, no calf tenderness Neurologic/Psychiatric: community mental health social worker II-XII nml as tested, no motor/sensory deficits, alert, oriented x 3, other (appears altered as above.) Orders, Labs, Meds 1741: I discussed findings with the patient, hyperglycemia without anion gap or acidosis. Continues to refused to submit urine. Departure Time of Disposition: 17:39 Disposition: 01 HOME, SELF-CARE Diagnosis: nausea vomiting, DM uncontrolled, hypovolemia Condition: IMPROVED Patient Instructions: Dehydration, Adult, [id number] Additional Instructions: Rest, no strenuous activity. Aggressive hydration with Gatorade or water. Continue to abstain from substance abuse, seeking medical assistance if necessary. Continue current medications and close glucose monitoring. Prescription: Zofran ODT Follow-up with your doctor in 2-3 days for recheck. Return to ED with new or changing symptoms. CEDRIC MELENDEZ DO Sep 26, 2017 17:42
[2017-09-26] MEDS ORDERED: ONDA4TAB10 PO (17:43)
== END 2017-09-26 17:55 | disposition home or self-care (01) ==
LOC: ER 15:21
DX: R11.2 Nausea with vomiting, unspecified (principal); R10.84 Generalized abdominal pain; E11.10 Type 2 diabetes mellitus with ketoacidosis without coma; E86.1 Hypovolemia; F15.10 Other stimulant abuse, uncomplicated; Z91.19 Patient's noncompliance with other medical treatment and regimen; Z88.8 Allergy status to other drugs, medicaments and biological substances; Z88.6 Allergy status to analgesic agent; Z91.041 Radiographic dye allergy status
CPT/HCPCS: 36415; 71010; 80053; 82550; 83690; 85025; 96361; 96374; 96375; 99285; G0480; J2405; J2765; S0028; J7030

== ENCOUNTER 2017-10-02 03:10 | Inpatient (IN) | payer SELFPAY ==
[2017-10-02] VITALS (10 sets, daily range): BP systolic 101–155; BP diastolic 65–88
[~2017-10-02] VITALS: Ht 170.2 cm; Wt 69.6 kg
[2017-10-02] MEDS ORDERED: IV NORMAL SALINE 1,000ML 1,000 ML IV SCH (03:17)
[2017-10-02] MEDS ORDERED: ONDANSETRON ODT 4 MG TAB.RAPDIS PO ONE (03:30)
[2017-10-02] MEDS ORDERED: IV DEXTROSE 5 %-0.45 % NACL 1,000 ML IV SCH (03:35)
--- NOTE | 2017-10-02 03:54 | PHYS DOC ---
Past History Past Medical History: Diabetes, Other Additional Past Medical Histor: pt reports several admissions for "high blood sugar" Past Surgical History: No Surgical History Smoking: Less than 1pk/day Alcohol Use: None Drug Use: Methamphetamine Adult General Chief Complaint Chief Complaint: HYPERGLYCEMIA HPI HPI Patient is a 27 year old female who presents with complaint of high blood sugar and vomiting. Patient is well-known to this emergency department in hospital and has had multiple visits for similar complaints. Patient has been admitted multiple times to the hospital for treatment of diabetic complications including diabetic ketoacidosis. The patient is a brittle diabetic and has history of noncompliance with diabetic regimen as well as history of methamphetamine abuse. Patient has continued to use methamphetamine despite extensive counseling regarding its use and the patient's recurrent health problems. Patient states that she has been having uncontrolled nausea and vomiting. The patient was seen in the emergency department approximately one week ago and treated for nausea and vomiting at that time with improvement. Patient states however over the past few days she has had worsening severe symptoms and states that it feels similar to when she has had previous episodes of diabetic ketoacidosis.[] Review of Systems Review of Systems Constitutional: Lightheadedness, denies fever or chills [] Eyes: Denies change in visual acuity, redness, or eye pain [] HENT: Denies nasal congestion or sore throat [] Respiratory: Shortness of breath[] Cardiovascular: Denies chest pain or edema[] GI: Nausea, vomiting[] : Denies dysuria or hematuria [] Musculoskeletal: Denies back pain or joint pain [] Integument: Denies rash or skin lesions [] Neurologic: Generalized weakness, denies focal weakness or sensory changes [] All other systems were reviewed and found to be within normal limits, except as documented in this note. Current Medications Current Medications Current Medications Medications (Trade) Dose Ordered Sig/Chevy Start Time Stop Time Status Last Admin Dose Admin Calcium Gluconate 1,000 mg 1X ONCE 10/02/17 03:45 10/02/17 03:46 UNV Dextrose/Sodium Chloride 1,000 ml @ 0 mls/hr Q0M 10/02/17 03:35 Insulin Human Regular 150 unit/ Sodium Chloride 151.5 ml @ 0 mls/hr CONT PRN PRN 10/02/17 03:45 Ondansetron HCl (Zofran Odt) 4 mg 1X ONCE 10/02/17 03:30 10/02/17 03:32 DC 10/02/17 03:29 4 MG Sodium Chloride 1,000 ml @ 0 mls/hr Q0M 10/02/17 03:35 Allergies Allergies Allergies Coded Allergies Type Severity Reaction Last Updated Verified acetaminophen Allergy Intermediate HIVES 07/21/17 Yes adhesive tape Allergy Intermediate 07/21/17 Yes I S O L A T I O N *CONTACT* Allergy Unknown 07/21/17 Yes Physical Exam Physical Exam Constitutional: Alert, afebrile, appears ill. [] HENT: Normocephalic, atraumatic, bilateral external ears normal, oropharynx dry , no oral exudates, nose normal. [] Eyes: PERRLA, EOMI, conjunctiva normal, no discharge. [] Neck: Normal range of motion, no tenderness, supple, no stridor. [] Cardiovascular: Tachycardia, regular rhythm, no murmur [] Lungs & Thorax: Tachypnea, bilateral breath sounds clear to auscultation [] Abdomen: Bowel sounds normal, soft, no tenderness, no masses, no pulsatile masses. [] Skin: Warm, dry, no erythema, no rash. [] Back: No tenderness, no CVA tenderness. [] Extremities: No tenderness, no cyanosis, no clubbing, ROM intact, no edema. [] Neurologic: Alert and oriented X 3, normal motor function, normal sensory function, no focal deficits noted. [] Current Patient Data Vital Signs Vital Signs Date Time Temp Pulse Resp B/P (MAP) Pulse Ox O2 Delivery O2 Flow Rate FiO2 10/02/17 03:17 97.8 127 26 96 Room Air EKG EKG Interpreted by me: Heart rate 119, sinus tachycardia, normal intervals, normal axis, no acute ST elevations or depressions[] Radiology/Procedures Radiology/Procedures Not performed[] Course & Med Decision Making Course & Med Decision Making Pertinent Labs and Imaging studies reviewed. (See chart for details) Patient was initially started on IV fluids in the emergency department. The patient's lab work showed a blood glucose level of 374 with a CO2 of 17 and an anion gap of 26. The patient was started on an insulin drip in the emergency department for treatment of diabetic ketoacidosis. I spoke with Dr. Pereira who accepted care of patient in hospital. Dragon Disclaimer Dragon Disclaimer This electronic medical record was generated, in whole or in part, using a voice recognition dictation system. Departure Departure: Impression: Primary Impression: Diabetic ketoacidosis Additional Impression: Nausea and vomiting Disposition: 09 ADMITTED INPATIENT Admitting Physician: Justin Pereira Condition: GUARDED Referrals: ESVIN ROLLINS (PCP) Problem Qualifiers Primary Impression: Diabetic ketoacidosis Diabetes mellitus type: type 1 Diabetes mellitus complication detail: without coma Qualified Codes: E10.10 - Type 1 diabetes mellitus with ketoacidosis without coma Additional Impression: Nausea and vomiting Vomiting type: unspecified Vomiting Intractability: intractable Qualified Codes: R11.2 - Nausea with vomiting, unspecified SONY WEAVER MD Oct 02, 2017 03:54
[2017-10-02] MEDS ORDERED: INSULIN REGULAR 100 UNIT/ML 10ML VIAL. ONE (04:04)
[2017-10-02] MEDS ORDERED: 0.9 % SODIUM CHLORIDE 150ML 150 ML ONE (04:04)
[2017-10-02 04:14] LABS: BASO # 0.1 x10^3/uL (0.0-0.2); BASO % 0 % (0-3); EOS % 0 % (0-3); HEMOGLOBIN 13.6 g/dL (12.0-15.5); LYMPH # 1.4 x10^3/uL (1.0-4.8); LYMPH % 8 % (24-48); MEAN CORPUSCULAR HEMOGLOBIN 30 pg (25-35); MEAN CORPUSCULAR HGB CONC 33 g/dL (31-37); MEAN CORPUSCULAR VOLUME 89 fL (79-100); MONO # 1.8 x10^3/uL (0.0-1.1); MONO % 10 % (0-9); NEUT # 14.8 x10^3uL (1.8-7.7); NEUT % 82 % (31-73); PLATELET COUNT 364 x10^3/uL (140-400); RED CELL DISTRIBUTION WIDTH 14.6 % (11.5-14.5)
[2017-10-02] MEDS ORDERED: CALCIUM GLUCONATE 1,000 MG/10 ML VIAL IV ONE (04:15)
[2017-10-02 04:24] LABS: ALBUMIN 3.2 g/dL (3.4-5.0); ALBUMIN/GLOBULIN RATIO 0.7 (1.0-1.7); CALCIUM 8.5 mg/dL (8.5-10.1); POTASSIUM 4.6 mmol/L (3.5-5.1); TOTAL BILIRUBIN 0.6 mg/dL (0.2-1.0); TOTAL PROTEIN 7.8 g/dL (6.4-8.2)
[2017-10-02] MEDS: INSULIN REGULAR 150 UNIT in 0.9 % SODIUM CHLORIDE 150ML 150 ML IV PRN ×2 (04:24→22:33)
[2017-10-02] MEDS: IV NORMAL SALINE 1,000ML 1,000 ML IV SCH (04:26)
[2017-10-02] MEDS ORDERED: ONDANSETRON PF 4 MG/2 ML VIAL. IV PRN (04:30)
[2017-10-02] MEDS ORDERED: ONDANSETRON PF 4 MG/2 ML VIAL. IV ONE ×2 (04:30)
[2017-10-02 04:37] LABS: % BANDS 11 % (0-9); % LYMPHS 10 % (24-48); % MONOS 3 % (0-10); % SEGS 76 % (35-66)
[2017-10-02 04:38] LABS: PLT ESTIMATE ADEQUATE (ADEQUATE)
--- NOTE | 2017-10-02 05:30 | NUR ---
PT admitted from ER via EMS. Pt presents A&OX3. Denies complaints of pain. States she is hungry and thirsty. Tele-ST on monitor. Insulin gtt going at 4.2 units/hr. Oriented pt to unit, nurse, call light and plan of care. V/U stated. WIll monitor and proceed with orders. A full complete assessment and history obtained at this time.
--- NOTE | 2017-10-02 06:15 | EKG ---
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
[2017-10-02 08:28] LABS: BARBITURATES NEG (NEG); BENZODIAZEPINES NEG (NEG); CANNABINOIDS NEG (NEG); COCAINE NEG (NEG); METHADONE NEG (NEG); OPIATES NEG (NEG); PHENCYCLIDINE NEG (NEG)
[2017-10-02 08:29] LABS: AMPHETAMINE/METHAMPHETAMINE NEG (NEG)
[2017-10-02 08:45] LABS: BILIRUBIN,URINE NEG (NEG); CLARITY,URINE HAZY; COLOR,URINE STRAW; GLUCOSE,URINE 500 mg/dL (NEG); NITRITE,URINE NEG (NEG); UROBILINOGEN,URINE 0.2 mg/dL (0.2 mg/dL)
[2017-10-02 08:46] LABS: BACTERIA,URINE FEW /HPF (0-FEW); SQUAMOUS EPITHELIAL CELL,UR FEW /LPF
[2017-10-02] MEDS: POTASSIUM CL 40MEQ D5-0.45NACL 1,000 ML IV SCH ×3 (09:21→16:56)
[2017-10-02] MEDS: METOCLOPRAMIDE 10 MG TABLET PO SCH ×4 (09:46→20:33)
[2017-10-02] MEDS: PANTOPRAZOLE 40 MG TABLET. PO SCH (09:46)
[2017-10-02] MEDS: MAGNESIUM OXIDE 400 MG TABLET PO SCH (09:46)
[2017-10-02] MEDS ORDERED: buPROPion XL 150 MG TAB.ER.24H PO SCH (10:00)
[2017-10-02] MEDS ORDERED: KETOROLAC 30 MG/ML VIAL. IV ONE (10:00)
[2017-10-02] MEDS ORDERED: DICYCLOMINE HCL 20 MG TABLET PO SCH (11:30)
[2017-10-02] MEDS ORDERED: ONDANSETRON ODT 4 MG TAB.RAPDIS PO SCH ×2 (12:00→14:00)
[2017-10-02] MEDS ORDERED: ONDANSETRON ODT 4 MG TAB.RAPDIS PO PRN (12:10)
--- NOTE | 2017-10-02 13:01 | NUR ---
Pt resting in bed at this time, denies nausea/vomiting/diarrhea. States that she has not felt good for a few days. Continues to feel achy, toradol PRN given. Spoke with patient in regards to medication. Pt states that she has not refilled her medication in a few months, and i talked to her about how this is not good with being on an antidepressant. Pt wished to no longer be on one since she does not have insurance.
--- NOTE | 2017-10-02 13:29 | NUR ---
IP: Pt has a hx of + mrsa screen on 07/22/17. Pt to be in contact precautions until there are 2 negative screens 7 days apart.
[2017-10-02] MEDS ORDERED: IV NORMAL SALINE 1,000ML 1,000 ML IV ONE (14:45)
[2017-10-02] MEDS: KETOROLAC 30 MG/ML VIAL. IV PRN ×2 (17:11→23:00)
[2017-10-02 17:58] LABS: CALCIUM 7.9 mg/dL (8.5-10.1); CREATININE 0.9 mg/dL (0.6-1.0); GFR 75.7
--- NOTE | 2017-10-02 18:02 | HP ---
ADMIT DATE: 10/02/2017 DATE OF ADMISSION: 10/02/2017 REASON FOR ADMISSION: DKA. HISTORY OF PRESENT ILLNESS: This is a 27-year-old female who is continuously admitted to the hospital for DKA. The patient has not been feeling well and has been vomiting and basically is being admitted again. In the interim history, the patient states that she is taking her medications. When it's actuality, we called the pharmacy and she has not filled any of her medications since June. PAST MEDICAL HISTORY: Poorly controlled type 1 diabetes, chronic hypomagnesemia, gastroparesis, depression, adjustment disorder, and intermittent methamphetamine drug abuse. PAST SURGICAL HISTORY: The patient had a Port-A-Cath placed, which became infected and had to be removed. SOCIAL HISTORY: Alcohol use: None. Drug use: Methamphetamine. REVIEW OF SYSTEMS: Stomach pain and a little bit of dysuria. OBJECTIVE: VITAL SIGNS: Blood pressure 120/78, pulse 121, respirations 17, temperature 97.9. HEENT: Hearing is normal. Eyes are clear. Her nose is patent. Her throat was clear. Tongue was dry. NECK: Supple. LUNGS: Clear. CARDIOVASCULAR: Regular rhythm and rate without murmur. ABDOMEN: Soft, mildly diffusely tender. Bowel sounds positive. EXTREMITIES: Without edema. LABORATORY DATA: White blood cell count 18,000. Chemistry: Blood sugar, admission blood sugar 374. Sodium 128, CO2 of 9, high anion gap of 26, albumin is 3.2. Serum osmolality is 297. ASSESSMENT: 1. Diabetic ketoacidosis. 2. Volume depletion. 3. Hyponatremia. 4. Metabolic acidosis. 5. Mild protein-calorie malnutrition. 6. History of methamphetamine abuse, drug screen negative. 7. Leukocytosis with urinary tract infection. PLAN: IV fluids, insulin drip, antiemetics and we will give her 1 dose of Rocephin until the culture comes back. BARRY MORELAND DO DR: DONNA/regina JOB#: [id number] / [id number]
[2017-10-02 18:09] LABS: BASO % 0 % (0-3); EOS % 0 % (0-3); HEMATOCRIT 31.6 % (36.0-47.0); HEMOGLOBIN 10.8 g/dL (12.0-15.5); LYMPH % 8 % (24-48); MEAN CORPUSCULAR HEMOGLOBIN 30 pg (25-35); MEAN CORPUSCULAR HGB CONC 34 g/dL (31-37); MEAN CORPUSCULAR VOLUME 87 fL (79-100); MONO # 1.4 x10^3/uL (0.0-1.1); MONO % 11 % (0-9); NEUT # 9.9 x10^3uL (1.8-7.7); NEUT % 80 % (31-73); PLATELET COUNT 285 x10^3/uL (140-400); RED BLOOD COUNT 3.64 x10^6/uL (3.50-5.40); RED CELL DISTRIBUTION WIDTH 14.6 % (11.5-14.5); WHITE BLOOD COUNT 12.3 x10^3/uL (4.0-11.0)
[2017-10-02] MEDS ORDERED: ACETAMINOPHEN 325 MG TABLET PO ONE (19:29)
[2017-10-02] MEDS: LACTOBACILLUS RHAMNOSUS GG 1 CAPSULE. PO SCH (20:33)
[2017-10-02] MEDS ORDERED: AMITRIPTYLINE HCL 75 MG TABLET PO SCH (21:00)
[2017-10-02] MEDS ORDERED: TOPIRAMATE 25 MG TABLET. PO SCH (21:00)
[2017-10-03] VITALS (7 sets, daily range): BP systolic 97–144; BP diastolic 70–90
[2017-10-03] MEDS: POTASSIUM CL 40MEQ D5-0.45NACL 1,000 ML IV SCH ×4 (02:38→20:11)
[2017-10-03 06:55] LABS: CALCIUM 7.9 mg/dL (8.5-10.1); CREATININE 0.6 mg/dL (0.6-1.0); GFR 120.8; POTASSIUM 3.9 mmol/L (3.5-5.1)
[2017-10-03] MEDS ORDERED: MAGNESIUM SULFATE 2GM 50 ML IV ONE (07:30)
[2017-10-03] MEDS: IV NORMAL SALINE 1,000ML 1,000 ML IV SCH ×2 (07:49→12:58)
[2017-10-03] MEDS: METOCLOPRAMIDE 10 MG TABLET PO SCH ×4 (07:50→20:10)
[2017-10-03] MEDS: KETOROLAC 30 MG/ML VIAL. IV PRN ×2 (07:50→18:15)
[2017-10-03] MEDS: MAGNESIUM OXIDE 400 MG TABLET PO SCH (07:50)
[2017-10-03] MEDS: LACTOBACILLUS RHAMNOSUS GG 1 CAPSULE. PO SCH ×2 (07:50→20:10)
[2017-10-03] MEDS: PANTOPRAZOLE 40 MG TABLET. PO SCH (07:50)
--- NOTE | 2017-10-03 08:00 | NUR ---
Insulin gtt stopped at this time, Home insulin started and IV changed to Normal Saline. Pt achy at this time and states she does not feel good. Toradol PRN given. Influenza and strep obtained. Able to verbalize POC, will continue to monitor.
[2017-10-03] MEDS ORDERED: DEXTROSE 50% 25 GM / 50ML DISP.SYRIN. IV PRN (08:15)
[2017-10-03 08:24] LABS: INFLUENZA A PATIENT NEGATIVE (NEGATIVE); INFLUENZA B PATIENT NEGATIVE (NEGATIVE)
[2017-10-03] MEDS: INSULIN DETEMIR 300 UNITS/3 ML INSULN.PEN. SQ SCH ×2 (09:04→21:29)
[2017-10-03] MEDS: INSULIN ASPART 300 UNITS/3 ML INSULN.PEN SQ PRN ×5 (09:06→18:11)
--- NOTE | 2017-10-03 11:08 | NUR ---
Pt continues on IV fluids for hydration, HR decreasing from 130s to 111. Pt resting at this time, denies complaints. Will continue to monitor blood sugars per protocol.
[2017-10-03] MEDS ORDERED: POTASSIUM CHLORIDE 20 MEQ TABLET.ER. PO ONE (13:00)
--- NOTE | 2017-10-03 20:00 | NUR ---
pt is sitting up in bed, very alert and oriented tonight. She is still getting IV hydration, she has been running low grade fever today. reviewed poc with pt, she verbalized understanding, will continue poc. Will continue to monitor.
[2017-10-03 20:13] LABS: BASO # 0.1 x10^3/uL (0.0-0.2); BASO % 1 % (0-3); EOS # 0.1 x10^3/uL (0.0-0.7); EOS % 1 % (0-3); HEMATOCRIT 28.4 % (36.0-47.0); HEMOGLOBIN 9.8 g/dL (12.0-15.5); LYMPH # 1.1 x10^3/uL (1.0-4.8); LYMPH % 14 % (24-48); MEAN CORPUSCULAR HEMOGLOBIN 30 pg (25-35); MEAN CORPUSCULAR HGB CONC 34 g/dL (31-37); MEAN CORPUSCULAR VOLUME 86 fL (79-100); MONO # 1.2 x10^3/uL (0.0-1.1); MONO % 14 % (0-9); NEUT % 71 % (31-73); PLATELET COUNT 266 x10^3/uL (140-400); RED BLOOD COUNT 3.31 x10^6/uL (3.50-5.40); RED CELL DISTRIBUTION WIDTH 14.8 % (11.5-14.5); WHITE BLOOD COUNT 8.4 x10^3/uL (4.0-11.0)
[2017-10-04 01:00] VITALS: BP 140/91
[2017-10-04] MEDS: IV NORMAL SALINE 1,000ML 1,000 ML IV SCH (01:51)
[2017-10-04 05:25] VITALS: BP 140/92
[2017-10-04 06:19] LABS: BASO # 0.1 x10^3/uL (0.0-0.2); BASO % 1 % (0-3); EOS # 0.1 x10^3/uL (0.0-0.7); EOS % 1 % (0-3); HEMATOCRIT 28.2 % (36.0-47.0); HEMOGLOBIN 9.8 g/dL (12.0-15.5); LYMPH % 12 % (24-48); MEAN CORPUSCULAR HEMOGLOBIN 30 pg (25-35); MEAN CORPUSCULAR HGB CONC 35 g/dL (31-37); MEAN CORPUSCULAR VOLUME 86 fL (79-100); MONO # 1.1 x10^3/uL (0.0-1.1); MONO % 12 % (0-9); NEUT # 6.7 x10^3uL (1.8-7.7); NEUT % 75 % (31-73); PLATELET COUNT 264 x10^3/uL (140-400); RED BLOOD COUNT 3.29 x10^6/uL (3.50-5.40); RED CELL DISTRIBUTION WIDTH 14.8 % (11.5-14.5); WHITE BLOOD COUNT 8.9 x10^3/uL (4.0-11.0)
[2017-10-04 06:31] LABS: ALBUMIN 1.9 g/dL (3.4-5.0); ALBUMIN/GLOBULIN RATIO 0.5 (1.0-1.7); CALCIUM 7.8 mg/dL (8.5-10.1); CREATININE 0.6 mg/dL (0.6-1.0); GFR 120.8; MAGNESIUM 1.6 mg/dL (1.8-2.4); POTASSIUM 3.9 mmol/L (3.5-5.1); TOTAL BILIRUBIN 0.1 mg/dL (0.2-1.0); TOTAL PROTEIN 5.6 g/dL (6.4-8.2)
[2017-10-04] MEDS: POTASSIUM CL 40MEQ D5-0.45NACL 1,000 ML IV SCH ×2 (06:40)
[2017-10-04] MEDS ORDERED: MAGNESIUM SULFATE 2GM 50 ML IV ONE (07:30)
[2017-10-04] MEDS: KETOROLAC 30 MG/ML VIAL. IV PRN (07:34)
[2017-10-04] MEDS: MAGNESIUM OXIDE 400 MG TABLET PO SCH (07:41)
[2017-10-04] MEDS: LACTOBACILLUS RHAMNOSUS GG 1 CAPSULE. PO SCH (07:42)
[2017-10-04] MEDS: METOCLOPRAMIDE 10 MG TABLET PO SCH (07:42)
[2017-10-04] MEDS: PANTOPRAZOLE 40 MG TABLET. PO SCH (07:44)
[2017-10-04] MEDS: INSULIN DETEMIR 300 UNITS/3 ML INSULN.PEN. SQ SCH (07:51)
[2017-10-04] MEDS: INSULIN ASPART 300 UNITS/3 ML INSULN.PEN SQ PRN ×2 (08:02→11:47)
--- NOTE | 2017-10-04 09:00 | NUR ---
Pt feeling much better this morning. Feeling like she is ready to go home. Labs WNL.
--- NOTE | 2017-10-04 09:16 | PN ---
DATE: 10/03/2017 PROBLEMS: 1. Diabetic ketoacidosis. 2. Dehydration. 3. Hyponatremia. 4. Pyelonephritis. 5. Hypomagnesemia. 6. Sepsis. SUBJECTIVE: The patient has not been feeling well and she has not bounced back like she normally does. She had a temperature of 101.5, is complaining of right flank pain. Urine does show evidence of an infection. Culture is pending. She is on ceftriaxone, not eating as well as she normally does either. OBJECTIVE: VITAL SIGNS: Blood pressure 118/79, pulse 133, temperature 100, pulse ox 99% on room air. SKIN: Warm throat was clear. NECK: Supple, without adenopathy. LUNGS: Clear to auscultation. CARDIOVASCULAR: Rapid rhythm and rate, tachycardic. ABDOMEN: Soft, nontender. She does have some right flank pain. EXTREMITIES: Without edema. LABORATORY DATA: White count has come down from 18,000 to 12,300. Yesterday had bandemia. She does not have that today. Glucose is in the 200s and high 100s. Magnesium was 1.5. Sodium today is 128. PLAN: Continue ceftriaxone. Continue IV fluids. Monitor her fever closely. Flu and strep were negative. Blood culture, no growth after 1 day, is negative as well. BARRY MORELAND DO DR: DONNA/regina JOB#: [id number] / [id number]
[2017-10-04 10:40] VITALS: BP 133/76
--- NOTE | 2017-10-04 11:50 | NUR ---
Discharge instructions given to patient at this time. Encouraged patient to monitor blood sugars frequently, hydrate and take antibiotic completely. IV discontinued. BS 262, Insulin 7 units given prior to discharge. Pt able to verbalize POC. Friend here at this time to take patient home.
[2017-10-04] MEDS ORDERED: SULF1TAB24 PO (11:51)
[2017-10-04] MEDS ORDERED: METO10TA81 PO (11:51)
[2017-10-04] MEDS ORDERED: MAGN400C PO (11:51)
--- NOTE | 2017-10-04 14:39 | PDOC3 ---
Discharge Summary Visit Information Date of Admission: Oct 02, 2017 Date of Discharge: Oct 04, 2017 Final Diagnosis Problems Medical Problems: (1) Diabetic ketoacidosis Status: Acute (2) Nausea and vomiting Status: Acute PROBLEMS: 1. Diabetic ketoacidosis. 2. Dehydration. 3. Hyponatremia. 4. Pyelonephritis. 5. Hypomagnesemia. 6. Sepsis.-E.COLI AND GROUP B BETA HEMOLYTIC STEP IN URINE Problems: Brief Hospital Course Allergies Allergies Coded Allergies Type Severity Reaction Last Updated Verified acetaminophen Allergy Intermediate HIVES 07/21/17 Yes adhesive tape Allergy Intermediate 07/21/17 Yes I S O L A T I O N *CONTACT* Allergy Unknown 07/21/17 Yes Vital Signs Vital Signs Date Time Temp Pulse Resp B/P (MAP) Pulse Ox O2 Delivery O2 Flow Rate FiO2 10/04/17 10:40 98.7 110 20 133/76 (95) 96 Room Air 10/03/17 22:00 99.0 Lab Results Laboratory Tests Test 10/02/17 15:45 10/02/17 16:51 10/02/17 17:36 10/02/17 17:57 Glucose (Fingerstick) 220 mg/dL (70-99) 215 mg/dL (70-99) 258 mg/dL (70-99) White Blood Count 12.3 x10^3/uL (4.0-11.0) Red Blood Count 3.64 x10^6/uL (3.50-5.40) Hemoglobin 10.8 g/dL (12.0-15.5) Hematocrit 31.6 % (36.0-47.0) Mean Corpuscular Volume 87 fL (79-100) Mean Corpuscular Hemoglobin 30 pg (25-35) Mean Corpuscular Hemoglobin Concent 34 g/dL (31-37) Red Cell Distribution Width 14.6 % (11.5-14.5) Platelet Count 285 x10^3/uL (140-400) Neutrophils (%) (Auto) 80 % (31-73) Lymphocytes (%) (Auto) 8 % (24-48) Monocytes (%) (Auto) 11 % (0-9) Eosinophils (%) (Auto) 0 % (0-3) Basophils (%) (Auto) 0 % (0-3) Neutrophils # (Auto) 9.9 x10^3uL (1.8-7.7) Lymphocytes # (Auto) 1.0 x10^3/uL (1.0-4.8) Monocytes # (Auto) 1.4 x10^3/uL (0.0-1.1) Eosinophils # (Auto) 0.0 x10^3/uL (0.0-0.7) Basophils # (Auto) 0.0 x10^3/uL (0.0-0.2) Sodium Level 130 mmol/L (136-145) Potassium Level 4.0 mmol/L (3.5-5.1) Chloride Level 101 mmol/L (98-107) Carbon Dioxide Level 18 mmol/L (21-32) Anion Gap 11 (6-14) Blood Urea Nitrogen 10 mg/dL (7-20) Creatinine 0.9 mg/dL (0.6-1.0) Estimated GFR (Cockcroft-Gault) 75.7 Glucose Level 213 mg/dL (70-99) Calcium Level 7.9 mg/dL (8.5-10.1) Test 10/02/17 19:05 10/02/17 20:42 10/02/17 21:46 10/02/17 22:42 Glucose (Fingerstick) 218 mg/dL (70-99) 202 mg/dL (70-99) 216 mg/dL (70-99) 198 mg/dL (70-99) Test 10/02/17 23:51 10/03/17 01:09 10/03/17 02:12 10/03/17 03:17 Glucose (Fingerstick) 221 mg/dL (70-99) 211 mg/dL (70-99) 163 mg/dL (70-99) 96 mg/dL (70-99) Test 10/03/17 04:21 10/03/17 05:36 10/03/17 06:11 10/03/17 06:44 Glucose (Fingerstick) 116 mg/dL (70-99) 288 mg/dL (70-99) 240 mg/dL (70-99) Sodium Level 128 mmol/L (136-145) Potassium Level 3.9 mmol/L (3.5-5.1) Chloride Level 98 mmol/L (98-107) Carbon Dioxide Level 19 mmol/L (21-32) Anion Gap 11 (6-14) Blood Urea Nitrogen 9 mg/dL (7-20) Creatinine 0.6 mg/dL (0.6-1.0) Estimated GFR (Cockcroft-Gault) 120.8 Glucose Level 260 mg/dL (70-99) Calcium Level 7.9 mg/dL (8.5-10.1) Magnesium Level 1.5 mg/dL (1.8-2.4) Test 10/03/17 07:37 10/03/17 07:56 10/03/17 08:53 10/03/17 10:22 Glucose (Fingerstick) 180 mg/dL (70-99) 183 mg/dL (70-99) 302 mg/dL (70-99) Influenza Type A (Rapid) Negative (NEGATIVE) Influenza Type B (Rapid) Negative (NEGATIVE) Group A Streptococcus Rapid Negative (NEGATIVE) Test 10/03/17 11:15 10/03/17 11:45 10/03/17 12:55 10/03/17 14:13 Glucose (Fingerstick) 318 mg/dL (70-99) 306 mg/dL (70-99) 321 mg/dL (70-99) 222 mg/dL (70-99) Test 10/03/17 15:16 10/03/17 16:53 10/03/17 18:46 10/03/17 19:50 Glucose (Fingerstick) 142 mg/dL (70-99) 122 mg/dL (70-99) 266 mg/dL (70-99) White Blood Count 8.4 x10^3/uL (4.0-11.0) Red Blood Count 3.31 x10^6/uL (3.50-5.40) Hemoglobin 9.8 g/dL (12.0-15.5) Hematocrit 28.4 % (36.0-47.0) Mean Corpuscular Volume 86 fL (79-100) Mean Corpuscular Hemoglobin 30 pg (25-35) Mean Corpuscular Hemoglobin Concent 34 g/dL (31-37) Red Cell Distribution Width 14.8 % (11.5-14.5) Platelet Count 266 x10^3/uL (140-400) Neutrophils (%) (Auto) 71 % (31-73) Lymphocytes (%) (Auto) 14 % (24-48) Monocytes (%) (Auto) 14 % (0-9) Eosinophils (%) (Auto) 1 % (0-3) Basophils (%) (Auto) 1 % (0-3) Neutrophils # (Auto) 6.0 x10^3uL (1.8-7.7) Lymphocytes # (Auto) 1.1 x10^3/uL (1.0-4.8) Monocytes # (Auto) 1.2 x10^3/uL (0.0-1.1) Eosinophils # (Auto) 0.1 x10^3/uL (0.0-0.7) Basophils # (Auto) 0.1 x10^3/uL (0.0-0.2) Test 10/03/17 20:15 10/03/17 23:40 10/04/17 05:34 10/04/17 08:58 Glucose (Fingerstick) 233 mg/dL (70-99) 227 mg/dL (70-99) 283 mg/dL (70-99) White Blood Count 8.9 x10^3/uL (4.0-11.0) Red Blood Count 3.29 x10^6/uL (3.50-5.40) Hemoglobin 9.8 g/dL (12.0-15.5) Hematocrit 28.2 % (36.0-47.0) Mean Corpuscular Volume 86 fL (79-100) Mean Corpuscular Hemoglobin 30 pg (25-35) Mean Corpuscular Hemoglobin Concent 35 g/dL (31-37) Red Cell Distribution Width 14.8 % (11.5-14.5) Platelet Count 264 x10^3/uL (140-400) Neutrophils (%) (Auto) 75 % (31-73) Lymphocytes (%) (Auto) 12 % (24-48) Monocytes (%) (Auto) 12 % (0-9) Eosinophils (%) (Auto) 1 % (0-3) Basophils (%) (Auto) 1 % (0-3) Neutrophils # (Auto) 6.7 x10^3uL (1.8-7.7) Lymphocytes # (Auto) 1.0 x10^3/uL (1.0-4.8) Monocytes # (Auto) 1.1 x10^3/uL (0.0-1.1) Eosinophils # (Auto) 0.1 x10^3/uL (0.0-0.7) Basophils # (Auto) 0.1 x10^3/uL (0.0-0.2) Sodium Level 131 mmol/L (136-145) Potassium Level 3.9 mmol/L (3.5-5.1) Chloride Level 100 mmol/L (98-107) Carbon Dioxide Level 23 mmol/L (21-32) Anion Gap 8 (6-14) Blood Urea Nitrogen 10 mg/dL (7-20) Creatinine 0.6 mg/dL (0.6-1.0) Estimated GFR (Cockcroft-Gault) 120.8 BUN/Creatinine Ratio 17 (6-20) Glucose Level 383 mg/dL (70-99) Calcium Level 7.8 mg/dL (8.5-10.1) Magnesium Level 1.6 mg/dL (1.8-2.4) Total Bilirubin 0.1 mg/dL (0.2-1.0) Aspartate Amino Transf (AST/SGOT) 10 U/L (15-37) Alanine Aminotransferase (ALT/SGPT) 11 U/L (14-59) Alkaline Phosphatase 121 U/L (46-116) Total Protein 5.6 g/dL (6.4-8.2) Albumin 1.9 g/dL (3.4-5.0) Albumin/Globulin Ratio 0.5 (1.0-1.7) Test 10/04/17 11:02 Glucose (Fingerstick) 263 mg/dL (70-99) Brief Hospital Course Ms. Leary is a 27 old [seFEMALEwho presented with DKA. SHE WAS ALSO FOUND TO HAVE A FEVER AND HAD A UTI. SHE WAS TREATED WITH CEFTRIAXONE. HER DKA CORRECTED BUT SHE WAS FEELING MUCH BETTER AND WANTED TO BE DISCHARGED ON 10/04. Discharge Information Condition at Discharge: Improved Disposition/Orders: D/C to Home Dischare Medications Current Medications Sodium Chloride 1,000 ml @ 1,000 mls/hr Q1H IV Last administered on t 03:29; Start 10/02/17 at 03:17; Stop 10/02/17 at 04:16; Status DC Ondansetron HCl (Zofran Odt) 4 mg 1X ONCE PO Last administered on 10/02/17 03:29; Start 10/02/17 at 03:30; Stop 10/02/17 at 04:24; Status DC Sodium Chloride 1,000 ml @ 0 mls/hr Q0M IV Last administered on 10/04/17 01: 51; Start 10/02/17 at 03:35; Stop 10/04/17 at 12:08; Status DC Dextrose/Sodium Chloride 1,000 ml @ 0 mls/hr Q0M IV ; Start 10/02/17 at 03:35 ; Stop 10/03/17 at 17:46; Status DC Insulin Human Regular 150 unit/ Sodium Chloride 151.5 ml @ 0 mls/hr CONT PRN PRN IV PER PROTOCOL Last administered on 10/02/17 22:33; Start 10/02/17 at 03 :45; Stop 10/04/17 at 12:08; Status DC Calcium Gluconate 1,000 mg 1X ONCE IV ; Start 10/02/17 at 04:15; Stop at 04:16; Status DC Sodium Chloride 150 ml @ As Directed STK-MED ONCE .ROUTE ; Start 10/02/17 at 04:04; Stop 10/02/17 at 04:05; Status DC Insulin Human Regular (NovoLIN R) 100 unit STK-MED ONCE .ROUTE ; Start at 04:04; Stop 10/02/17 at 04:05; Status DC Ondansetron HCl (Zofran) 4 mg 1X ONCE IV ; Start 10/02/17 at 04:30; Stop at 04:31; Status DC Ondansetron HCl (Zofran) 4 mg PRN Q4HRS PRN IV NAUSEA/VOMITING Last administered on 10/02/17 04:29; Start 10/02/17 at 04:30; Stop 10/03/17 at 04 :30; Status DC Ondansetron HCl (Zofran) 4 mg 1X ONCE IV ; Start 10/02/17 at 04:30; Stop at 04:31; Status DC Potassium Chloride/Dextrose/ Sod Cl 1,000 ml @ 150 mls/hr Q6H40M IV Last administered on 10/03/17 02:38; Start 10/02/17 at 08:00; Stop 10/04/17 at 12 :08; Status DC Ketorolac Tromethamine (Toradol) 30 mg PRN Q6HRS PRN IV PAIN Last administered on 10/04/17 07:34; Start 10/02/17 at 09:00; Stop 10/04/17 at 12:08; Status DC Ketorolac Tromethamine (Toradol) 30 mg 1X ONCE IV Last administered on 09:46; Start 10/02/17 at 10:00; Stop 10/02/17 at 10:01; Status DC Amitriptyline HCl (Elavil) 75 mg QHS PO ; Start 10/02/17 at 21:00; Stop at 21:00; Status DC Bupropion HCl (Wellbutrin Xl) 150 mg DAILY PO ; Start 10/02/17 at 10:00; Stop 10/02/17 at 12:02; Status DC Dicyclomine HCl (Bentyl) 20 mg QIDACHS PO ; Start 10/02/17 at 11:30; Stop at 12:02; Status DC Metoclopramide HCl (Reglan) 10 mg QID PO Last administered on 10/04/17 07:42 ; Start 10/02/17 at 10:00; Stop 10/04/17 at 12:08; Status DC Ondansetron HCl (Zofran Odt) 4 mg Q8HRS PO ; Start 10/02/17 at 14:00; Status UNV Ondansetron HCl (Zofran Odt) 4 mg Q6HRS PO ; Start 10/02/17 at 12:00; Stop at 12:00; Status DC Pantoprazole Sodium (Protonix) 40 mg DAILY PO Last administered on 10/04/17 07:44; Start 10/02/17 at 10:00; Stop 10/04/17 at 12:08; Status DC Magnesium Oxide (Magnesium Oxide) 400 mg DAILY PO Last administered on 07:41; Start 10/02/17 at 10:00; Stop 10/04/17 at 12:08; Status DC Topiramate (Topamax) 50 mg QHS PO ; Start 10/02/17 at 21:00; Stop 10/02/17 at 21:00; Status DC Ondansetron HCl (Zofran Odt) 4 mg PRN Q6HRS PRN PO NAUSEa; Start 10/02/17 at 12:10; Stop 10/04/17 at 12:08; Status DC Sodium Chloride 1,000 ml @ 1,000 mls/hr 1X ONCE IV Last administered on 10/02 14:44; Start 10/02/17 at 14:45; Stop 10/02/17 at 15:44; Status DC Ceftriaxone Sodium 1 gm/ Sodium Chloride 50 ml @ 100 mls/hr Q24H IV Last administered on 10/03/17 18:08; Start 10/02/17 at 16:00; Stop 10/04/17 at 12 :08; Status DC Lactobacillus Rhamnosus (Culturelle) 1 cap BID PO Last administered on 07:42; Start 10/02/17 at 21:00; Stop 10/04/17 at 12:08; Status DC Acetaminophen (Tylenol) 325 mg STK-MED ONCE PO ; Start 10/02/17 at 19:29; Stop 10/02/17 at 19:30; Status DC Magnesium Sulfate 50 ml @ 25 mls/hr 1X ONCE IV Last administered on 09:00; Start 10/03/17 at 07:30; Stop 10/03/17 at 09:29; Status DC Insulin Detemir (Levemir) 15 units BID SQ Last administered on 10/04/17 07:51 ; Start 10/03/17 at 09:00; Stop 10/04/17 at 12:08; Status DC Insulin Aspart (NovoLOG) 0-9 UNITS PRN Q2HR PRN SQ HYPERGLYCEMIA Last administered on 10/04/17 11:47; Start 10/03/17 at 08:15; Stop 10/04/17 at 12 :08; Status DC Dextrose 12.5 gm PRN Q15MIN PRN IV SEE COMMENTS; Start 10/03/17 at 08:15; Stop 10/04/17 at 12:08; Status DC Potassium Chloride (Klor-Con) 40 meq 1X ONCE PO Last administered on 13:00; Start 10/03/17 at 13:00; Stop 10/03/17 at 13:01; Status DC Magnesium Sulfate 50 ml @ 25 mls/hr 1X ONCE IV Last administered on t 07:43; Start 10/04/17 at 07:30; Stop 10/04/17 at 09:29; Status DC Active Scripts Active Bactrim Ds Tablet (Sulfamethoxazole/Trimethoprim) 1 Each Tablet 1 Tab PO BID Magnesium (Magnesium Oxide) 400 Mg Capsule 1 Cap PO DAILY Reglan (Metoclopramide Hcl) 10 Mg Tablet 1 Tab PO QID Novolog Flexpen (Insulin Aspart) 100 Unit/1 Ml Insuln.pen 0-9 Unit SQ ACHS FOLLOW SUPPLEMENTAL SCALE GIVEN TO YOU Reported Levemir (Insulin Detemir) 100 Unit/1 Ml Vial 15 Unit SQ BID resume tonight at bedtime last dose this morning Patient Instructions Patient Instuctions SENT HOME ON WHICH COVERS BOTH BACTERIA. BARRY MORELAND DO Oct 04, 2017 14:39
== END 2017-10-04 12:05 | disposition home or self-care (01) | DRG 871 ==
LOC: ER 03:10 → ICU 03:55
PROVIDERS: ADMIT Internal Medicine; ATTEND Internal Medicine
DX: A41.9 Sepsis, unspecified organism (principal); E10.10 Type 1 diabetes mellitus with ketoacidosis without coma; E44.1 Mild protein-calorie malnutrition; E83.42 Hypomagnesemia; E87.1 Hypo-osmolality and hyponatremia; N12 Tubulo-interstitial nephritis, not specified as acute or chronic; E86.0 Dehydration; F15.10 Other stimulant abuse, uncomplicated; F32.9 Major depressive disorder, single episode, unspecified; F43.20 Adjustment disorder, unspecified; Z68.24 Body mass index [BMI] 24.0-24.9, adult; Z79.4 Long term (current) use of insulin; Z91.19 Patient's noncompliance with other medical treatment and regimen; Z88.8 Allergy status to other drugs, medicaments and biological substances
CPT/HCPCS: 36415; 80048; 80053; 80307; 81001; 82010; 82947; 83735; 83930; 85007; 85025; 87040; 87070; 87086; 87804; 87880; 93005; 96361; 96374; J0696; J1815; J1885; J2405; J3475; J7042; J8597; Q0162; 99285-25; G0479; J7030

== ENCOUNTER 2017-10-06 18:10 | Emergency (ER) | payer SELFPAY ==
[~2017-10-06] VITALS: Ht 170.2 cm; Wt 61.4 kg
[~2017-10-06 18:10] MED LIST changes: +SULF1TAB24 PO
[2017-10-06] MEDS ORDERED: IV NORMAL SALINE 1,000ML 1,000 ML IV ONE ×2 (18:30→21:45)
[2017-10-06] MEDS ORDERED: ONDANSETRON PF 4 MG/2 ML VIAL. IV ONE ×2 (18:45→22:00)
[2017-10-06] MEDS ORDERED: METOCLOPRAMIDE HCL 10 MG/2 ML VIAL. IV ONE (18:45)
[2017-10-06] MEDS ORDERED: PANTOPRAZOLE IV PUSH 40 MG VIAL. IVP ONE (18:45)
[2017-10-06 19:01] LABS: BASO % 1 % (0-3); EOS % 1 % (0-3); HEMATOCRIT 34.2 % (36.0-47.0); HEMOGLOBIN 11.6 g/dL (12.0-15.5); LYMPH # 0.9 x10^3/uL (1.0-4.8); LYMPH % 15 % (24-48); MEAN CORPUSCULAR HEMOGLOBIN 30 pg (25-35); MEAN CORPUSCULAR HGB CONC 34 g/dL (31-37); MEAN CORPUSCULAR VOLUME 88 fL (79-100); MONO # 0.2 x10^3/uL (0.0-1.1); MONO % 4 % (0-9); NEUT % 80 % (31-73); PLATELET COUNT 426 x10^3/uL (140-400); RED CELL DISTRIBUTION WIDTH 15.1 % (11.5-14.5); WHITE BLOOD COUNT 6.2 x10^3/uL (4.0-11.0)
--- NOTE | 2017-10-06 19:05 | PHYS DOC ---
Past History Past Medical History: Diabetes, Other Additional Past Medical Histor: pt reports several admissions for "high blood sugar" Past Surgical History: No Surgical History Smoking: Less than 1pk/day Alcohol Use: None Drug Use: Methamphetamine Adult General Chief Complaint Chief Complaint: GENERALIZED BODY ACHES HPI HPI Patient is a 27-year-old female who presents to the ER today secondary to nausea vomiting and abdominal pain. Patient has a long-standing history of poorly controlled diabetes with multiple ER admissions secondary to diabetic ketoacidosis abdominal pain and gastroparesis. Patient reports that she has a history significant for chronic gastritis, gastroparesis, chronic abdominal pain , nausea and vomiting. Patient reports that her blood sugar is poorly controlled despite being compliant with all her medications. Patient reports that she smokes about half a pack of cigarettes a day does not drink any alcohol and has a drug problem and utilizes methamphetamine on a near daily basis. Patient denies any fevers, cough, dysuria frequency or urgency, chest pain or shortness of breath. Patient reports that she's had a runny nose and what appears to be a sinus infection. Patient denies any melena or bright red blood per rectum. Patient has any hematochezia. Patient denies any coffee- ground emesis. Patient reports her last by mouth intake was this morning when she had chicken noodle soup and was ambulatory to keep that down. Patient reports that she was recently discharged from the Hospital approximate 3 days ago secondary to an admission for diabetic ketoacidosis as well as having a cold. Patient reports at that time she was diagnosed with a urinary tract infection is currently taking Bactrim DS for it. Patient's ER physical exam is significant for some mild diffuse tenderness to palpation. Patient's because membranes are dry. Patient's abdomen reveals no rebound or guarding. Patient has normal active bowel sounds. Patient has no tenderness to palpation at McBurney's point and no Boudreaux sign. Patient does not present with signs or symptoms of be consistent with an acute surgical abdomen. Assessment and plan This is a 27-year-old female who presents to the ER today secondary to nausea vomiting abdominal pain and blood sugar out of control. This is most likely secondary to her typical uncontrolled diabetes episodes. While the ER the patient will have labs checked to rule out DKA. Labs will include CBC, CMP, venous blood gas, UA, Accu-Chek, patient will also get IV fluids 1 L and will continue her blood sugar accordingly. Patient be getting IV Zofran, IV Reglan, IV Protonix. Patient be reevaluated after labs return. Reassessment. Patient's been reevaluated multiple times on the ED. Patient's labs were all been within normal limits. Patient has a normal anion gap no acidosis. Patient's blood sugars is slightly elevated. Her lipase is normal. Patient's UA was remarkable for Trichomonas in the urine as well as some ketones in there as well. Given that should she has no anion gap and no acidosis I do not feel that the patient is in diabetic ketoacidosis. I believe that the patient likely has hyperglycemia and starvation ketosis. Patient also does not likely have a urinary tract infection her UA was likely positive secondary to her Trichomonas infection. Patient will be given Flagyl here in the ED and will be discharged home in stable condition. Patient's vital signs are stable. Patient does not appear to be in any acute distress at this time. Current Medications Current Medications Current Medications Medications (Trade) Dose Ordered Sig/[facility] Start Time Stop Time Status Last Admin Dose Admin Metoclopramide HCl (Reglan Vial) 10 mg 1X ONCE 10/06/17 18:45 10/06/17 18:46 DC Ondansetron HCl (Zofran) 4 mg 1X ONCE 10/06/17 18:45 10/06/17 18:46 DC Pantoprazole Sodium (Protonix Vial) 40 mg 1X ONCE 10/06/17 18:45 10/06/17 18:46 DC Sodium Chloride 1,000 ml @ 1,000 mls/hr 1X ONCE 10/06/17 18:30 10/06/17 19:29 Allergies Allergies Allergies Coded Allergies Type Severity Reaction Last Updated Verified acetaminophen Allergy Intermediate HIVES 07/21/17 Yes adhesive tape Allergy Intermediate 07/21/17 Yes I S O L A T I O N *CONTACT* Allergy Unknown 07/21/17 Yes EKG EKG [] Radiology/Procedures Radiology/Procedures [] Course & Med Decision Making Course & Med Decision Making Pertinent Labs and Imaging studies reviewed. (See chart for details) [] Dragon Disclaimer Dragon Disclaimer This electronic medical record was generated, in whole or in part, using a voice recognition dictation system. Departure Departure: Impression: Primary Impression: Abdominal pain Additional Impressions: DM (diabetes mellitus) type 1, uncontrolled, with ketoacidosis Trichomoniasis Uncontrolled diabetes mellitus Methamphetamine abuse Disposition: 01 HOME, SELF-CARE Condition: IMPROVED Referrals: ESVIN ROLLINS (PCP) Patient Instructions: Hyperglycemia, Methamphetamine Abuse, Complications, Nausea and Vomiting, Type 1 Diabetes Mellitus, Adult Scripts Ondansetron (ZOFRAN ODT) 4 Mg Tab.rapdis 1 TAB SL Q8HRS for NAUSEA, #15 TAB Prov: SAMAN BHATTI MD 10/06/17 Metronidazole (FLAGYL) 250 Mg Tablet 250 MG PO TID for 7 Days, #21 TAB Prov: SAMAN BHATTI MD 10/06/17 Problem Qualifiers SAMAN BHATTI MD Oct 06, 2017 19:05
[2017-10-06 20:02] LABS: ALBUMIN 2.8 g/dL (3.4-5.0); ALBUMIN/GLOBULIN RATIO 0.6 (1.0-1.7); CALCIUM 8.7 mg/dL (8.5-10.1); CREATININE 0.5 mg/dL (0.6-1.0); GFR 149.1; TOTAL BILIRUBIN 0.4 mg/dL (0.2-1.0); TOTAL PROTEIN 7.3 g/dL (6.4-8.2)
[2017-10-06 20:41] LABS: BACTERIA,URINE 0 /HPF (0-FEW); BILIRUBIN,URINE NEG (NEG); CLARITY,URINE HAZY; COLOR,URINE STRAW; GLUCOSE,URINE >=1000 mg/dL (NEG); NITRITE,URINE NEG (NEG); RBC,URINE RARE /HPF (0-2); SQUAMOUS EPITHELIAL CELL,UR MOD /LPF; TRICHOMONAS,URINE PRESENT; UROBILINOGEN,URINE 1 mg/dL (0.2 mg/dL)
[2017-10-06 21:40] VITALS: BP 141/99
[2017-10-06] MEDS ORDERED: ONDA4TAB10 SL (22:01)
[2017-10-06] MEDS ORDERED: METR250T PO (22:01)
== END 2017-10-06 22:00 | disposition home or self-care (01) ==
LOC: ER 18:10
DX: R10.9 Unspecified abdominal pain (principal); R11.2 Nausea with vomiting, unspecified; E10.10 Type 1 diabetes mellitus with ketoacidosis without coma; F15.10 Other stimulant abuse, uncomplicated; A59.9 Trichomoniasis, unspecified; G89.29 Other chronic pain; F17.210 Nicotine dependence, cigarettes, uncomplicated; Z87.440 Personal history of urinary (tract) infections; Z88.8 Allergy status to other drugs, medicaments and biological substances; Z88.6 Allergy status to analgesic agent; Z91.041 Radiographic dye allergy status
CPT/HCPCS: 36415; 80053; 81001; 83690; 85025; 87086; 96361; 96365; 96375; 96376; 99285; C9113; J2405; J2765; J3490; J7030

== ENCOUNTER 2017-10-14 20:09 | Inpatient (IN) | payer SELFPAY ==
[~2017-10-14] VITALS: Ht 170.2 cm; Wt 61.8 kg
[~2017-10-14 20:09] MED LIST changes: +METR250T PO
--- NOTE | 2017-10-14 20:24 | ED.ADGEN ---
Past History Past Medical History: Diabetes, Other Additional Past Medical Histor: pt reports several admissions for "high blood sugar" Past Surgical History: No Surgical History Smoking: Less than 1pk/day Alcohol Use: None Drug Use: Methamphetamine Adult General Chief Complaint Chief Complaint "My sugars are not that high... but I am sick.. I got generalized abd pain.. It not my usual diabetic pain..." HPI HPI Patient is a 27 year old female who presents with above hx and complaints nausea, vomiting, abd. pain.. Pt. know non-compliant diabetic pt. Pt. denies any bad food, ill contacts, trauma or travel. Pt. follows with Dr. Vogel. Pt. has been ill the past couple day s. Pt. states had a normal stool to day. Pt. in past frequent admit for DKA and Polysubstance abuse. Review of Systems Review of Systems Constitutional: Hx. of fever or chills [] Eyes: Denies change in visual acuity, redness, or eye pain [] HENT: Denies nasal congestion or sore throat [] Respiratory: Denies cough or shortness of breath [] Cardiovascular: No additional information not addressed in HPI [] GI: Complaints of abdominal pain, nausea, vomiting, : Denies dysuria or hematuria [] Musculoskeletal: Denies back pain or joint pain [] Integument: Denies rash or skin lesions [] Neurologic: Denies headache, focal weakness or sensory changes [] Endocrine: Denies polyuria or polydipsia [] All other systems were reviewed and found to be within normal limits, except as documented in this note. Family History Family History DM Current Medications Current Medications Current Medications Medications (Trade) Dose Ordered Sig/Chevy Start Time Stop Time Status Last Admin Dose Admin Famotidine (Pepcid Vial) 20 mg 1X ONCE 10/14/17 21:00 10/14/17 21:01 DC 10/14/17 22:24 20 MG Info (Do NOT chart on this entry -- for MONITORING) 1 each PRN DAILY PRN 10/14/17 22:45 10/16/17 22:44 Iohexol (Omnipaque 240 Mg/ml) 50 ml 1X ONCE 10/14/17 23:00 10/14/17 23:01 DC 10/14/17 23:50 50 ML Iohexol (Omnipaque 300 Mg/ml) 75 ml 1X ONCE 10/14/17 23:00 10/14/17 23:01 DC 10/14/17 23:51 75 ML Morphine Sulfate (Morphine 5mg Syringe) 5 mg 1X ONCE 10/14/17 21:00 10/14/17 21:01 DC 10/14/17 22:25 5 MG Multivitamins/ Minerals 10 ml/ Folic Acid 1 mg/ Thiamine HCl 100 mg/Dextrose/ Lactated Ringer's 1,011.2 ml @ 1,000 mls/ hr 1X ONCE 10/15/17 00:45 10/15/17 01:46 DC 10/15/17 00:42 1,000 MLS/HR Multivitamins/ Minerals 10 ml/ Folic Acid 1 mg/ Thiamine HCl 100 mg/Sodium Chloride 1,011.1 ml @ 1,000 mls/ hr 1X ONCE 10/14/17 23:45 10/15/17 00:45 DC Ondansetron HCl (Zofran) 8 mg 1X ONCE 10/14/17 21:00 10/14/17 21:01 DC 10/14/17 22:24 8 MG Sodium Chloride 1,000 ml @ 1,000 mls/hr Q1H 10/14/17 20:30 10/14/17 21:29 DC 10/14/17 22:25 1,000 MLS/HR Allergies Allergies Allergies Coded Allergies Type Severity Reaction Last Updated Verified acetaminophen Allergy Intermediate HIVES 10/14/17 Yes adhesive tape Allergy Intermediate 10/14/17 Yes I S O L A T I O N *CONTACT* Allergy Unknown 10/14/17 Yes See Nursing for home meds./ Physical Exam Physical Exam Constitutional: moderate distress, non-toxic appearance. [] HENT: Normocephalic, atraumatic, bilateral external ears normal, oropharynx dry , no oral exudates, nose normal. [] Eyes: PERRLA, EOMI, conjunctiva normal, no discharge. [] Neck: Normal range of motion, no tenderness, supple, no stridor. [] Cardiovascular: Tachycardia Heart rate regular rhythm, no murmur [] Lungs & Thorax: Bilateral breath sounds equal at apex with scattered wheezes on auscultation [] Abdomen: Bowel sounds normal, soft, generalized tenderness, no masses, no pulsatile masses. [] Declines rectal or vaginal exam. Bilateral flank pain, more on Rt. Skin: Warm, dry, no erythema, no rash. Tattoos. Poor turgor Back: No tenderness, no CVA tenderness. [] Extremities: No tenderness, no cyanosis, no clubbing, ROM intact, no edema. No psoas or heel tap. Neurologic: Alert and oriented X 3, normal motor function, normal sensory function, no focal deficits noted. [] Psychologic: Affect anxious, judgement normal, mood depressed. Current Patient Data Vital Signs Vital Signs Date Time Temp Pulse Resp B/P (MAP) Pulse Ox O2 Delivery O2 Flow Rate FiO2 10/14/17 22:55 Room Air 10/14/17 20:10 98.3 106 22 98 Lab Results Laboratory Tests Test 10/14/17 00:25 10/14/17 21:28 10/14/17 22:05 Urine Collection Type Void Urine Color Straw Urine Clarity Hazy Urine pH 8.5 Urine Specific [place] 1.015 Urine Protein Neg (NEG-TRACE) Urine Glucose (UA) Neg mg/dL (NEG) Urine Ketones (Stick) Neg mg/dL (NEG) Urine Blood Trace (NEG) Urine Nitrite Neg (NEG) Urine Bilirubin Neg (NEG) Urine Urobilinogen Dipstick 0.2 mg/dL (0.2 mg/dL) Urine Leukocyte Esterase Mod (NEG) Urine RBC 1-2 /HPF (0-2) Urine WBC 5-10 /HPF (0-4) Urine Squamous Epithelial Cells Mod /LPF Urine Bacteria Few /HPF (0-FEW) Urine Mucus Mod /LPF Urine Opiates Screen Pos (NEG) Urine Methadone Screen Neg (NEG) Urine Barbiturates Neg (NEG) Urine Phencyclidine Screen Neg (NEG) Urine Amphetamine/Methamphetamine Neg (NEG) Urine Benzodiazepines Screen Neg (NEG) Urine Cocaine Screen Neg (NEG) Urine Cannabinoids Screen Neg (NEG) Urine Ethyl Alcohol Neg (NEG) White Blood Count 9.4 x10^3/uL (4.0-11.0) Red Blood Count 4.03 x10^6/uL (3.50-5.40) Hemoglobin 11.6 g/dL (12.0-15.5) L Hematocrit 35.0 % (36.0-47.0) L Mean Corpuscular Volume 87 fL (79-100) Mean Corpuscular Hemoglobin 29 pg (25-35) Mean Corpuscular Hemoglobin Concent 33 g/dL (31-37) Red Cell Distribution Width 15.0 % (11.5-14.5) H Platelet Count 472 x10^3/uL (140-400) H Neutrophils (%) (Auto) 76 % (31-73) H Lymphocytes (%) (Auto) 19 % (24-48) L Monocytes (%) (Auto) 3 % (0-9) Eosinophils (%) (Auto) 1 % (0-3) Basophils (%) (Auto) 1 % (0-3) Neutrophils # (Auto) 7.1 x10^3uL (1.8-7.7) Lymphocytes # (Auto) 1.8 x10^3/uL (1.0-4.8) Monocytes # (Auto) 0.3 x10^3/uL (0.0-1.1) Eosinophils # (Auto) 0.1 x10^3/uL (0.0-0.7) Basophils # (Auto) 0.1 x10^3/uL (0.0-0.2) Sodium Level 135 mmol/L (136-145) L Potassium Level 3.4 mmol/L (3.5-5.1) L Chloride Level 98 mmol/L (98-107) Carbon Dioxide Level 28 mmol/L (21-32) Anion Gap 9 (6-14) Blood Urea Nitrogen 13 mg/dL (7-20) Creatinine 0.5 mg/dL (0.6-1.0) L Estimated GFR (Cockcroft-Gault) 149.1 BUN/Creatinine Ratio 26 (6-20) H Glucose Level 180 mg/dL (70-99) H Calcium Level 9.0 mg/dL (8.5-10.1) Total Bilirubin 0.3 mg/dL (0.2-1.0) Aspartate Amino Transferase (AST) 15 U/L (15-37) Alanine Aminotransferase (ALT) 15 U/L (14-59) Alkaline Phosphatase 101 U/L (46-116) Creatine Kinase 18 U/L (26-192) L Creatine Kinase MB (Mass) < 0.5 ng/mL (0.0-3.6) Creatine Kinase MB Relative Index 2.8 % (0-4) Troponin I Quantitative < 0.017 ng/mL (0-0.055) Total Protein 7.7 g/dL (6.4-8.2) Albumin 3.2 g/dL (3.4-5.0) L Albumin/Globulin Ratio 0.7 (1.0-1.7) L Lipase 35 U/L (73-393) L Serum Test, Qualitative Negative (NEG) Prothrombin Time 9.9 SEC (9.4-11.4) Prothrombin Time INR 1.0 (0.9-1.1) PTT < 21 SEC (23-33) L EKG EKG My interpretation of EKG shows sinus 99, no acute findings of STEMI [] Radiology/Procedures Radiology/Procedures My interp. shows non-specific bowel gas pattern. []No findings of obstruction. Formal CT reading pending at time of admission. Possible pyelonephritis Course & Med Decision Making Course & Med Decision Making Pertinent Labs and Imaging studies reviewed. (See chart for details). Discussed presentation, testing and treatment plan with Dr. Pereira . Admit for IV antibiotic and rehydration. [] Final Impression Final Impression 1. Abdomen Pain 2. Nausea Vomiting 3. Diabetes 4. Hx. Non-compliance 5. Anemia 6. Hx. Polysubstance Abuse[] 7. Tobacco Use 8. Pyelonephritis 9. UTI Problems: Dragon Disclaimer Dragon Disclaimer This electronic medical record was generated, in whole or in part, using a voice recognition dictation system. YELENA HENRY MD Oct 14, 2017 20:24
[2017-10-14] MEDS ORDERED: IV NORMAL SALINE 1,000ML 1,000 ML IV SCH (20:30)
--- NOTE | 2017-10-14 20:59 | RAD ---
EXAM: Abdomen acute complete. HISTORY: Pain. COMPARISON: 06/12/2016. FINDINGS: A frontal view of the chest and frontal upright and supine views of the abdomen are obtained. There is no infiltrate, effusion or pneumothorax. The heart is normal in size. There are nondistended air-filled loops of bowel within the abdomen. There is no transition point to suggest obstruction. There is no free air. There are few pelvic phleboliths. IMPRESSION: 1. No acute pulmonary finding. 2. Nonobstructive bowel gas pattern. Electronically signed by: Nisa Parikh MD (10/14/2017 8:56 PM) [id number]
[2017-10-14] MEDS ORDERED: FAMOTIDINE 20 MG/2 ML VIAL IVP ONE (21:00)
[2017-10-14] MEDS ORDERED: ONDANSETRON PF 4 MG/2 ML VIAL. IV ONE (21:00)
[2017-10-14] MEDS ORDERED: MORPHINE SULFATE 5 MG/ML SYRINGE. SQ ONE (21:00)
[2017-10-14 21:46] LABS: BASO # 0.1 x10^3/uL (0.0-0.2); BASO % 1 % (0-3); EOS # 0.1 x10^3/uL (0.0-0.7); EOS % 1 % (0-3); HEMOGLOBIN 11.6 g/dL (12.0-15.5); LYMPH # 1.8 x10^3/uL (1.0-4.8); LYMPH % 19 % (24-48); MEAN CORPUSCULAR HEMOGLOBIN 29 pg (25-35); MEAN CORPUSCULAR HGB CONC 33 g/dL (31-37); MEAN CORPUSCULAR VOLUME 87 fL (79-100); MONO # 0.3 x10^3/uL (0.0-1.1); MONO % 3 % (0-9); NEUT # 7.1 x10^3uL (1.8-7.7); NEUT % 76 % (31-73); PLATELET COUNT 472 x10^3/uL (140-400); RED BLOOD COUNT 4.03 x10^6/uL (3.50-5.40); WHITE BLOOD COUNT 9.4 x10^3/uL (4.0-11.0)
[2017-10-14 21:57] LABS: PREG TEST PT QUAL NEGATIVE (NEG)
[2017-10-14 22:10] LABS: ALBUMIN 3.2 g/dL (3.4-5.0); ALBUMIN/GLOBULIN RATIO 0.7 (1.0-1.7); ALK PHOS 101 U/L (46-116); ALT (SGPT) 15 U/L (14-59); ANION GAP 9 (6-14); AST (SGOT) 15 U/L (15-37); BLOOD UREA NITROGEN 13 mg/dL (7-20); BUN/CREATININE RATIO 26 (6-20); CARBON DIOXIDE 28 mmol/L (21-32); CHLORIDE 98 mmol/L (98-107); CREATINE KINASE 18 U/L (26-192); CREATININE 0.5 mg/dL (0.6-1.0); GFR 149.1; GLUCOSE 180 mg/dL (70-99); LIPASE 35 U/L (73-393); POTASSIUM 3.4 mmol/L (3.5-5.1); SODIUM 135 mmol/L (136-145); TOTAL BILIRUBIN 0.3 mg/dL (0.2-1.0); TOTAL PROTEIN 7.7 g/dL (6.4-8.2)
[2017-10-14] MEDS ORDERED: IOHEXOL 240 MG/ML 50ML VIAL. ONE (22:24)
--- NOTE | 2017-10-14 22:31 | EKG ---
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
[2017-10-14] MEDS ORDERED: CONTRAST GIVEN MC PRN (22:45)
[2017-10-14] MEDS ORDERED: IOHEXOL 300 MG/ML 75 ML VIAL. IV ONE (23:00)
[2017-10-14] MEDS ORDERED: IOHEXOL 240 MG/ML 50ML VIAL. PO ONE (23:00)
[2017-10-14] MEDS ORDERED: MVI, ADULT NO.4 WITH VIT K 10 ML, FOLIC ACID 1 MG, THIAMINE 100 MG in IV NORMAL SALINE ... IV ONE ×4 (23:30)
[2017-10-14] MEDS ORDERED: MVI, ADULT NO.4 WITH VIT K 10 ML, FOLIC ACID SYRINGE for ER 1 MG, THIAMINE 100 MG in IV... IV ONE ×4 (23:45)
[2017-10-14] MEDS ORDERED: THIAMINE 200 MG/2 ML VIAL. IV ONE (23:59)
[2017-10-14] MEDS ORDERED: MVI, ADULT NO.4 WITH VIT K 10 ML VIAL IV ONE (23:59)
[2017-10-15] MEDS ORDERED: FOLIC ACID 5 MG/ML SYRINGE for ER IV ONE
--- NOTE | 2017-10-15 00:20 | RAD ---
INDICATION: Omni 300, 75 ml IV/Omni 240, 30ml PO. Abdominal pain. Exam from 06/15/2017 sent for comparison COMPARISON: 06/15/2017 TECHNIQUE: Axial CT images were obtained through the abdomen and pelvis with intravenous contrast. One or more of the following individualized dose reduction techniques were utilized for this examination: 1. Automated exposure control; 2. Adjustment of the mA and/or kV according to patient size; 3. Use of iterative reconstruction technique. FINDINGS: Chest Base: Partially imaged without gross abnormality. Vessels: No abdominal aortic aneurysm. Liver/Biliary: No intrahepatic biliary duct dilation. Pancreas: No peripancreatic edema. Spleen: Normal. Kidneys/Adrenal: There are some regions of low attenuation along the cortex of the right kidney. In addition at the posterior aspect of the right kidney there is a low-attenuation focus measuring approximately 11 mm. Bladder: Bladder is distended with urine at time of exam. GI: No dilated loops of bowel to suggest obstruction. The appendix does not appear grossly inflamed. Cystic lesion left adnexa, 25 mm. IMPRESSION: 1. Low-attenuation regions within the right kidney. Correlate with symptoms given that pathologic causes such as pyelonephritis can have this appearance. In addition within the subcapsular region there is a focal region of low-attenuation seen. Could be secondary to an additional site of pyelonephritis but early abscess formation is within the differential. This was not present in May 2017 therefore a small renal cyst is considered less likely. 2. Cystic lesion left adnexa. Electronically signed by: Ricki Estrada MD (10/15/2017 12:17 AM) [facility]
[2017-10-15] MEDS ORDERED: MVI, ADULT NO.4 WITH VIT K 10 ML, FOLIC ACID 1 MG, THIAMINE 100 MG in IV DEXTROSE 5%-LA... IV ONE ×4 (00:45)
[2017-10-15 00:52] LABS: BARBITURATES NEG (NEG); BENZODIAZEPINES NEG (NEG); CANNABINOIDS NEG (NEG); COCAINE NEG (NEG); METHADONE NEG (NEG); OPIATES POS (NEG); PHENCYCLIDINE NEG (NEG)
[2017-10-15 00:56] LABS: AMPHETAMINE/METHAMPHETAMINE NEG (NEG); BILIRUBIN,URINE NEG (NEG); CLARITY,URINE HAZY; COLOR,URINE STRAW; GLUCOSE,URINE NEG (NEG)
[2017-10-15 00:57] LABS: BACTERIA,URINE FEW /HPF (0-FEW); NITRITE,URINE NEG (NEG); SQUAMOUS EPITHELIAL CELL,UR MOD /LPF; UROBILINOGEN,URINE 0.2 mg/dL (0.2 mg/dL)
[2017-10-15] MEDS ORDERED: IV NORMAL SALINE 100ML 100 ML ONE (01:13)
[2017-10-15 02:20] VITALS: BP 133/84
[2017-10-15] MEDS ORDERED: ONDANSETRON PF 4 MG/2 ML VIAL. IV PRN (02:45)
[2017-10-15] MEDS ORDERED: DEXTROSE 50% 25 GM / 50ML DISP.SYRIN. IV PRN (03:00)
[2017-10-15] MEDS: IV NORMAL SALINE 1,000ML 1,000 ML IV SCH ×5 (03:09→20:15)
[2017-10-15 05:05] VITALS: BP 118/77
[2017-10-15] MEDS: ONDANSETRON ODT 4 MG TAB.RAPDIS PO SCH ×3 (05:21→20:16)
[2017-10-15 06:44] LABS: BASO # 0.1 x10^3/uL (0.0-0.2); BASO % 1 % (0-3); EOS # 0.1 x10^3/uL (0.0-0.7); EOS % 1 % (0-3); HEMATOCRIT 28.5 % (36.0-47.0); HEMOGLOBIN 9.4 g/dL (12.0-15.5); LYMPH # 2.4 x10^3/uL (1.0-4.8); LYMPH % 33 % (24-48); MEAN CORPUSCULAR HEMOGLOBIN 29 pg (25-35); MEAN CORPUSCULAR HGB CONC 33 g/dL (31-37); MEAN CORPUSCULAR VOLUME 89 fL (79-100); MONO # 0.4 x10^3/uL (0.0-1.1); MONO % 6 % (0-9); NEUT # 4.3 x10^3uL (1.8-7.7); NEUT % 59 % (31-73); PLATELET COUNT 282 x10^3/uL (140-400); RED BLOOD COUNT 3.19 x10^6/uL (3.50-5.40); WHITE BLOOD COUNT 7.3 x10^3/uL (4.0-11.0)
[2017-10-15 06:54] LABS: ALBUMIN 2.3 g/dL (3.4-5.0); ALBUMIN/GLOBULIN RATIO 0.8 (1.0-1.7); CALCIUM 7.6 mg/dL (8.5-10.1); CREATININE 0.5 mg/dL (0.6-1.0); GFR 149.1; MAGNESIUM 1.8 mg/dL (1.8-2.4); POTASSIUM 3.9 mmol/L (3.5-5.1); TOTAL BILIRUBIN 0.1 mg/dL (0.2-1.0); TOTAL PROTEIN 5.3 g/dL (6.4-8.2)
[2017-10-15] MEDS: METOCLOPRAMIDE 10 MG TABLET PO SCH ×4 (07:46→20:16)
[2017-10-15] MEDS: MAGNESIUM OXIDE 400 MG TABLET PO SCH (08:07)
[2017-10-15] MEDS: INSULIN DETEMIR 300 UNITS/3 ML INSULN.PEN. SQ SCH ×2 (08:13→20:17)
[2017-10-15] MEDS: INSULIN ASPART 300 UNITS/3 ML INSULN.PEN SQ SCH ×4 (08:14→20:17)
[2017-10-15 11:17] VITALS: BP 111/74
--- NOTE | 2017-10-15 12:05 | HP ---
ADMIT DATE: 10/15/2017 HISTORY OF PRESENT ILLNESS: A 27-year-old female patient who came to the Emergency Room complaining that her sugar is not high, but she is sick and she has generalized abdominal pain that is different from usual diabetic pain. She apparently stated that she has had a complaint of nausea, vomiting, abdominal pain. She stated that she was seen by Dr. Grigsby about a week ago and was started on Bactrim for her UTI, and she just finished the antibiotic without much improvement in her symptoms. The patient, however, denied any chills, rigors, or fever. Denied any back pain. Denied any dysuria, frequency or hematuria and apparently when she was here in 10/06, her urine culture showed mixed urogenital nikita 10,000 to 25,000 colony-forming unit per milliliter. On 10/02/2017, she grew beta-hemolytic streptococci group B as well as Escherichia coli and apparently she was discharged to [facility] according to the patient. In any case, the patient was evaluated in the Emergency Room and apparently has had an acute abdomen series, which showed no acute pulmonary finding, nonobstructive bowel gas pattern and she has had CT scan of the abdomen and pelvis with contrast, which showed that the patient has low attenuation regions within the right kidney to correlate with symptoms given that pathology causes such as pyelonephritis can have this appearance. In addition, within the subcapsular region, there is a focal region of low attenuation seen and could be secondary to an additional site of pyelonephritis, but early abscess formation is within the differential. This was not present in 05/2017. Therefore, a small renal cyst is considered less likely and she has cystic lesion in left adnexa, and basically the patient was started on ceftriaxone as well as Flagyl. Continue with all her medication, admitted for further evaluation and treatment. PAST MEDICAL HISTORY: Significant for poorly controlled type 1 diabetes with multiple admissions to this facility and diabetic ketoacidosis, chronic hypomagnesemia, gastroparesis, depression, adjustment disorder, intermittent methamphetamine drug abuse. PAST SURGICAL HISTORY: Significant for Port-A-Cath placement and removal and also incision and drainage of left axillary abscess. SOCIAL HISTORY: She lives with her mom. Apparently she has intermittent use of amphetamine. She does smoke, but does not drink alcohol. REVIEW OF SYSTEMS: As per history of present illness. ALLERGIES: She has no known drug allergies except for ACETAMINOPHEN as well as ADHESIVE TAPES. MEDICATIONS: She is on following medications: She is on NovoLog FlexPen as per insulin sliding scale before meals, detemir insulin 15 units subcutaneous twice a day, magnesium oxide 400 mg daily, metoclopramide 10 mg before meals and bedtime and ondansetron 4 mg every 8 hours. PHYSICAL EXAMINATION: GENERAL: On arrival to the Emergency Room, the patient looked well and was clearly in no apparent respiratory distress, pale, but no jaundice, cyanosis or thyromegaly. No jugular venous distention. No limb edema. VITAL SIGNS: Her heart rate was 106, blood pressure 133/84, temperature was 98.3, respiratory rate 22, and oxygen saturation was 98%. HEAD, EYES, EARS, NOSE AND THROAT: Showed normocephalic, atraumatic. NECK: Supple. HEART: Showed normal first and second heart sounds with no gallop, rub or murmur. CHEST: Clear to auscultation. No crepitation or rhonchi. ABDOMEN: Distended, soft, nontender. No guarding or rigidity. No organomegaly. Hernial orifice intact. Bowel sounds normal. NEUROLOGIC: She was awake, alert, responding appropriately, appears intact. She moves extremities without difficulty. She ambulates without assistance or assistive device. There is no tenderness on both renal angles. LABORATORY DATA: Showed that her white cell count was 9400; hemoglobin 11.6; hematocrit 35; MCV 87 and platelet count of 472,000 with normal manual differential. Her chemistry showed a serum sodium 135, potassium 3.4, chloride 98, bicarbonate 28, anion gap of 9, BUN 13, creatinine 0.5, estimated GFR was 49 mL per minute. Her glucose was 180, calcium 9. Total bilirubin, AST, ALT, alkaline phosphatase were normal. Lactic acid was only 1. Total protein was 7.7, albumin was 3.2, lipase was 3.5. Her prothrombin time was 9.9, INR of 1, aPTT was 21. Urinalysis showed the urine was yellow, hazy with a pH of 8.5, specific gravity of 1.015. The urine was negative for protein, glucose, ketones, trace of blood, negative for nitrite. There was moderate amount of leukocyte esterase, 1-2 rbc's, 5-10 wbc's and few bacteria. Her toxic screen was positive for opiates, but negative for methadone, barbiturates, phencyclidine, amphetamine, methamphetamine, benzodiazepine, cocaine, cannabinoids and alcohol. Her acute abdomen series was unremarkable with no acute pulmonary finding and nonobstructive gas pattern. Her abdomen and pelvis CT scan with contrast showed that she has low attenuation region within the right kidney, correlated with symptoms. Given that pathology causes such as pyelonephritis can have this appearance. In addition, within the subcapsular region, there is a focal region of low attenuation seen, could be secondary to an additional site of pyelonephritis, but early abscess formation is within the differential diagnosis. ASSESSMENT AND PLAN: Continue with IV Rocephin. Continue with her home medication as well as Flagyl and her urine culture at that time showed beta-hemolytic Streptococcus group B as well as Escherichia coli. The Escherichia coli was more than 100,000 colony-forming unit per milliliter, and beta-hemolytic Streptococcus group B. was only 10,000 to 25,000 colony forming unit per milliliter. We will continue with this antibiotic for now and await the result of the culture and sensitivity if any. I would also consult the Infectious Disease to discuss the finding and see if we need to change her to probably IV Unasyn or Augmentin or Zosyn. ANAYELI FOSS MD DR: JOSÉ/regina JOB#: [id number] / [id number]
[2017-10-15 15:29] VITALS: BP 117/78
[2017-10-15 18:23] VITALS: BP 136/96
[2017-10-15] MEDS: oxyCODONE/APAP 5/325 1 TAB TABLET PO PRN (18:27)
[2017-10-16] MEDS: oxyCODONE/APAP 5/325 1 TAB TABLET PO PRN (00:53)
[2017-10-16] MEDS: IV NORMAL SALINE 1,000ML 1,000 ML IV SCH ×5 (04:00→22:40)
[2017-10-16] MEDS: ONDANSETRON ODT 4 MG TAB.RAPDIS PO SCH ×3 (05:07→20:47)
[2017-10-16 05:10] VITALS: BP 129/85
[2017-10-16 06:36] LABS: HEMATOCRIT 29.2 % (36.0-47.0); HEMOGLOBIN 9.7 g/dL (12.0-15.5); RED BLOOD COUNT 3.32 x10^6/uL (3.50-5.40); RED CELL DISTRIBUTION WIDTH 14.9 % (11.5-14.5); WHITE BLOOD COUNT 5.6 x10^3/uL (4.0-11.0)
[2017-10-16 06:45] LABS: ALBUMIN 2.2 g/dL (3.4-5.0); ALBUMIN/GLOBULIN RATIO 0.6 (1.0-1.7); CALCIUM 7.9 mg/dL (8.5-10.1); CREATININE 0.6 mg/dL (0.6-1.0); GFR 120.8; POTASSIUM 4.3 mmol/L (3.5-5.1); TOTAL BILIRUBIN 0.1 mg/dL (0.2-1.0); TOTAL PROTEIN 5.7 g/dL (6.4-8.2)
[2017-10-16] MEDS: MAGNESIUM OXIDE 400 MG TABLET PO SCH (08:01)
[2017-10-16] MEDS: METOCLOPRAMIDE 10 MG TABLET PO SCH ×4 (08:01→20:46)
[2017-10-16] MEDS: INSULIN DETEMIR 300 UNITS/3 ML INSULN.PEN. SQ SCH ×2 (08:02→20:48)
[2017-10-16] MEDS: INSULIN ASPART 300 UNITS/3 ML INSULN.PEN SQ SCH ×6 (08:02→20:46)
[2017-10-16 10:53] VITALS: BP 118/86
[2017-10-16 19:40] VITALS: BP 136/88
--- NOTE | 2017-10-17 00:17 | PN ---
DATE: 10/16/2017 CURRENT PROBLEMS: 1. Pyelonephritis. 2. Previous urinary tract infection with Escherichia coli and beta-hemolytic Streptococcus group B - states she did take her Septra and she received ceftriaxone on her previous hospitalization. The Septra would cover group A strep; however, it was less than 100,000 colony forming units. She is on ceftriaxone here. States her back pain is gone. She still does have intermittent stomach pain. She does have chronic gastroparesis. OBJECTIVE: VITAL SIGNS: Blood pressure 118/86, pulse 87, respirations 20, pulse ox 97% on room air, temperature 98. GENERAL: The patient is sitting up in bed, color slightly pale. HEENT: Her tongue is moist. NECK: Supple. LUNGS: Clear. CARDIOVASCULAR: Regular rhythm and rate. There is no flank pain. ABDOMEN: Soft, mildly tender. No pinpoint tenderness. LABORATORY DATA: Review of her abdominal CT reveals pyelonephritis on the right side and possibly early abscess formation, but not definitive. PLAN: Continue ceftriaxone. Await urine culture. Manage blood sugars. BARRY MORELAND DO DR: DONNA/regina JOB#: [id number] / [id number]
[2017-10-17] MEDS: ONDANSETRON ODT 4 MG TAB.RAPDIS PO SCH (04:49)
[2017-10-17] MEDS: IV NORMAL SALINE 1,000ML 1,000 ML IV SCH ×2 (04:49→10:00)
[2017-10-17 05:40] VITALS: BP 139/84
[2017-10-17] MEDS: INSULIN ASPART 300 UNITS/3 ML INSULN.PEN SQ SCH ×4 (07:30→12:05)
[2017-10-17] MEDS: MAGNESIUM OXIDE 400 MG TABLET PO SCH (07:55)
[2017-10-17] MEDS: METOCLOPRAMIDE 10 MG TABLET PO SCH ×2 (07:55→12:02)
[2017-10-17] MEDS ORDERED: INSULIN ASPART 300 UNITS/3 ML INSULN.PEN SQ ONE (08:00)
[2017-10-17] MEDS: INSULIN DETEMIR 300 UNITS/3 ML INSULN.PEN. SQ SCH (08:00)
[2017-10-17] MEDS ORDERED: METR500T PO (11:14)
[2017-10-17] MEDS ORDERED: CIPR500T94 PO (11:14)
--- NOTE | 2017-10-17 13:28 | PDOC3 ---
Discharge Summary Visit Information Final Diagnosis Problems Medical Problems: (1) Urinary tract infection Status: Acute 1. pyeloelonephritis. 2. Previous urinary tract infection with Escherichia coli and beta-hemolytic Streptococcus group B - states she did take her Septra and she received 3 gastroparesis 4. poorly controlled type 1 dm 5. adjustment disorder 6. chronic hypomagnesemia 7. gastroenteritis 8. amenorrhea- test neg-need to see insole lip turner as an outpatient-discussed with patient Problems: Brief Hospital Course Allergies Allergies Coded Allergies Type Severity Reaction Last Updated Verified acetaminophen Allergy Intermediate HIVES 10/14/17 Yes adhesive tape Allergy Intermediate 10/14/17 Yes I S O L A T I O N *CONTACT* Allergy Unknown 10/14/17 Yes Vital Signs Vital Signs Date Time Temp Pulse Resp B/P (MAP) Pulse Ox O2 Delivery O2 Flow Rate FiO2 10/17/17 05:40 98.1 88 18 139/84 (102) 100 Room Air Lab Results Laboratory Tests Test 10/15/17 16:46 10/15/17 20:11 10/16/17 06:13 10/16/17 07:17 Glucose (Fingerstick) 141 mg/dL (70-99) 344 mg/dL (70-99) 252 mg/dL (70-99) White Blood Count 5.6 x10^3/uL (4.0-11.0) Red Blood Count 3.32 x10^6/uL (3.50-5.40) Hemoglobin 9.7 g/dL (12.0-15.5) Hematocrit 29.2 % (36.0-47.0) Mean Corpuscular Volume 88 fL (79-100) Mean Corpuscular Hemoglobin 29 pg (25-35) Mean Corpuscular Hemoglobin Concent 33 g/dL (31-37) Red Cell Distribution Width 14.9 % (11.5-14.5) Platelet Count 326 x10^3/uL (140-400) Erythrocyte Sedimentation Rate 18 (0-25) Sodium Level 139 mmol/L (136-145) Potassium Level 4.3 mmol/L (3.5-5.1) Chloride Level 104 mmol/L (98-107) Carbon Dioxide Level 29 mmol/L (21-32) Anion Gap 6 (6-14) Blood Urea Nitrogen 13 mg/dL (7-20) Creatinine 0.6 mg/dL (0.6-1.0) Estimated GFR (Cockcroft-Gault) 120.8 BUN/Creatinine Ratio 22 (6-20) Glucose Level 300 mg/dL (70-99) Calcium Level 7.9 mg/dL (8.5-10.1) Total Bilirubin 0.1 mg/dL (0.2-1.0) Aspartate Amino Transf (AST/SGOT) 14 U/L (15-37) Alanine Aminotransferase (ALT/SGPT) 14 U/L (14-59) Alkaline Phosphatase 94 U/L (46-116) C-Reactive Protein 3.0 mg/L (0-3.3) Total Protein 5.7 g/dL (6.4-8.2) Albumin 2.2 g/dL (3.4-5.0) Albumin/Globulin Ratio 0.6 (1.0-1.7) Test 10/16/17 11:17 10/16/17 16:39 10/16/17 20:30 10/17/17 07:37 Glucose (Fingerstick) 184 mg/dL (70-99) 145 mg/dL (70-99) 99 mg/dL (70-99) 450 mg/dL (70-99) Test 10/17/17 11:43 Glucose (Fingerstick) 153 mg/dL (70-99) Brief Hospital Course Ms. Leary is a 27 old [sex] who presented with [ ] female patient who came to the Emergency Room complaining that her sugar is not high, but she is sick and she has generalized abdominal pain that is different from usual diabetic pain. She apparently stated that she has had a complaint of nausea, vomiting, abdominal pain. She stated that she was seen by Dr. Grigsby about a week ago and was started on Bactrim for her UTI, and she just finished the antibiotic without much improvement in her symptoms. The patient, however, denied any chills, rigors, or fever. Denied any back pain. Denied any dysuria, frequency or hematuria and apparently when she was here in 10/06, her urine culture showed mixed urogenital nikita 10,000 to 25,000 colony-forming unit per milliliter. On 10/02/2017, she grew beta-hemolytic streptococci group B as well as Escherichia coli and apparently she was discharged to [facility] according to the patient. In any case, the patient was evaluated in the Emergency Room and apparently has had an acute abdomen series, which showed no acute pulmonary finding, nonobstructive bowel gas pattern and she has had CT scan of the abdomen and pelvis with contrast, which showed that the patient has low attenuation regions within the right kidney to correlate with symptoms given that pathology causes such as pyelonephritis can have this appearance. In addition, within the subcapsular region, there is a focal region of low attenuation seen and could be secondary to an additional site of pyelonephritis, but early abscess formation is within the differential. This was not present in 05/2017. Therefore, a small renal cyst is considered less likely and she has cystic lesion in left adnexa, and basically the patient was started on ceftriaxone as well as Flagyl. Continue with all her medication, admitted for further evaluation and treatment.Her abdominal pain resolved, most likely gastrenteritis. She was well hydrated. She will be discharged on Flagyl and Cipro. Her urine culture was pending at the time of discharge. Discharge Information Dischare Medications Current Medications Sodium Chloride 1,000 ml @ 1,000 mls/hr Q1H IV Last administered on 22:25; Start 10/14/17 at 20:30; Stop 10/14/17 at 21:29; Status DC Ondansetron HCl (Zofran) 8 mg 1X ONCE IV Last administered on 10/14/17 22:24 ; Start 10/14/17 at 21:00; Stop 10/14/17 at 21:01; Status DC Famotidine (Pepcid Vial) 20 mg 1X ONCE IVP Last administered on 10/14/17 22: 24; Start 10/14/17 at 21:00; Stop 10/14/17 at 21:01; Status DC Morphine Sulfate (Morphine 5mg Syringe) 5 mg 1X ONCE SQ Last administered on 10/14/17 22:25; Start 10/14/17 at 21:00; Stop 10/14/17 at 21:01; Status DC Iohexol (Omnipaque 300 Mg/ml) 75 ml 1X ONCE IV Last administered on 23:51; Start 10/14/17 at 23:00; Stop 10/14/17 at 23:01; Status DC Iohexol (Omnipaque 240 Mg/ml) 50 ml 1X ONCE PO Last administered on 23:50; Start 10/14/17 at 23:00; Stop 10/14/17 at 23:01; Status DC Info (Do NOT chart on this entry -- for MONITORING) 1 each PRN DAILY PRN MC SEE COMMENTS; Start 10/14/17 at 22:45; Stop 10/16/17 at 22:44; Status DC Multivitamins/ Minerals 10 ml/ Folic Acid 1 mg/ Thiamine HCl 100 mg/Sodium Chloride 1,011.2 ml @ 0 mls/hr 1X ONCE IV ; Start 10/14/17 at 23:30; Stop at 23:31; Status UNV Multivitamins/ Minerals 10 ml/ Folic Acid 1 mg/ Thiamine HCl 100 mg/Sodium Chloride 1,011.1 ml @ 1,000 mls/ hr 1X ONCE IV ; Start 10/14/17 at 23:45; Stop 10/15/17 at 00:45; Status DC Multivitamins/ Minerals 10 ml/ Folic Acid 1 mg/ Thiamine HCl 100 mg/Dextrose/ Lactated Ringer's 1,011.2 ml @ 1,000 mls/ hr 1X ONCE IV Last administered on 10/15/17 00:42; Start 10/15/17 at 00:45; Stop 10/15/17 at 01:46; Status DC Ceftriaxone Sodium 2 gm/ Sodium Chloride 100 ml @ 200 mls/hr 1X ONCE IV Last administered on 10/15/17 01:42; Start 10/15/17 at 01:30; Stop 10/15/17 at 01 :59; Status DC Sodium Chloride 1,000 ml @ 200 mls/hr Q5H IV Last administered on 10/16/17 17:03; Start 10/15/17 at 03:00 Ondansetron HCl (Zofran) 4 mg PRN Q6HRS PRN IV NAUSEA/VOMITING; Start at 02:45 Ceftriaxone Sodium 1 gm/ Sodium Chloride 50 ml @ 100 mls/hr Q24H IV Last administered on 10/16/17 20:46; Start 10/15/17 at 21:00 Metronidazole 100 ml @ 100 mls/hr Q8HRS IV Last administered on 10/17/17 05: 33; Start 10/15/17 at 06:00 Insulin Aspart (NovoLOG) 0-7 UNITS QIDACHS SQ Last administered on 10/17/17 12:04; Start 10/15/17 at 07:30 Dextrose 12.5 gm PRN Q15MIN PRN IV SEE COMMENTS; Start 10/15/17 at 03:00 Metoclopramide HCl (Reglan) 10 mg QIDACHS PO Last administered on 10/17/17 12 :02; Start 10/15/17 at 07:30 Ondansetron HCl (Zofran Odt) 4 mg Q8HRS PO Last administered on 10/16/17 05: 07; Start 10/15/17 at 06:00 Insulin Detemir (Levemir) 15 units BID SQ Last administered on 10/17/17 08:00 ; Start 10/15/17 at 09:00 Magnesium Oxide (Magnesium Oxide) 400 mg DAILY PO Last administered on 07:55; Start 10/15/17 at 09:00 Oxycodone/ Acetaminophen (Percocet 5/325) 1 tab PRN Q6HRS PRN PO PAIN Last administered on 10/16/17 00:53; Start 10/15/17 at 18:15 Insulin Aspart (NovoLOG) 10 units TIDAC SQ Last administered on 10/17/17 12: 05; Start 10/16/17 at 11:30 Iohexol (Omnipaque 240 Mg/ml) 50 ml STK-MED ONCE .ROUTE ; Start 10/14/17 at 22: 24; Stop 10/16/17 at 11:03; Status DC Thiamine HCl 200 mg STK-MED ONCE IV ; Start 10/14/17 at 23:59; Stop 10/16/17 at 11:03; Status DC Multivitamins/ Minerals (Infuvite Adult) 10 ml STK-MED ONCE IV ; Start at 23:59; Stop 10/16/17 at 11:03; Status DC Folic Acid 5 mg STK-MED ONCE IV ; Start 10/15/17 at 00:00; Stop 10/16/17 at 11 :03; Status DC Ceftriaxone Sodium (Rocephin) 2 gm STK-MED ONCE IV ; Start 10/15/17 at 01:12; Stop 10/16/17 at 11:04; Status DC Sodium Chloride 100 ml @ As Directed STK-MED ONCE .ROUTE ; Start 10/15/17 at 01:13; Stop 10/16/17 at 11:04; Status DC Insulin Aspart (NovoLOG) 10 units 1X ONCE SQ Last administered on 10/17/17t 08:00; Start 10/17/17 at 08:00; Stop 10/17/17 at 08:01; Status DC Active Scripts Active Cipro (Ciprofloxacin Hcl) 500 Mg Tablet 1 Tab PO BID Flagyl (Metronidazole) 500 Mg Tablet 1 Tab PO BID 3 Days Zofran Odt (Ondansetron) 4 Mg Tab.rapdis 1 Tab SL Q8HRS Magnesium (Magnesium Oxide) 400 Mg Capsule 1 Cap PO DAILY Reglan (Metoclopramide Hcl) 10 Mg Tablet 1 Tab PO QID Novolog Flexpen (Insulin Aspart) 100 Unit/1 Ml Insuln.pen 0-9 Unit SQ ACHS FOLLOW SUPPLEMENTAL SCALE GIVEN TO YOU Reported Levemir (Insulin Detemir) 100 Unit/1 Ml Vial 15 Unit SQ BID resume tonight at bedtime last dose this morning Patient Instructions Patient Instuctions needs to see a insole lip turner as an outpatient to evaluated her amenorrhea. Take all medications a prescribed. BARRY GRIGSBY DO Oct 17, 2017 13:28
== END 2017-10-17 12:15 | disposition home or self-care (01) | DRG 74 ==
LOC: ER 20:09 → 1 SOUTH 10-15 01:00
PROVIDERS: ADMIT Internal Medicine; ATTEND Internal Medicine
DX: E10.43 Type 1 diabetes mellitus with diabetic autonomic (poly)neuropathy (principal); E10.65 Type 1 diabetes mellitus with hyperglycemia; N12 Tubulo-interstitial nephritis, not specified as acute or chronic; K31.84 Gastroparesis; E83.42 Hypomagnesemia; F32.9 Major depressive disorder, single episode, unspecified; F17.200 Nicotine dependence, unspecified, uncomplicated; F15.90 Other stimulant use, unspecified, uncomplicated; F43.20 Adjustment disorder, unspecified; N91.2 Amenorrhea, unspecified; K52.9 Noninfective gastroenteritis and colitis, unspecified; Z79.4 Long term (current) use of insulin; Z83.3 Family history of diabetes mellitus; Z87.440 Personal history of urinary (tract) infections; Z91.19 Patient's noncompliance with other medical treatment and regimen; Z88.8 Allergy status to other drugs, medicaments and biological substances; Z91.048 Other nonmedicinal substance allergy status
CPT/HCPCS: 36415; 74022; 74177; 80053; 80307; 81001; 82553; 82947; 83605; 83690; 83735; 84484; 84703; 85025; 85027; 85610; 85651; 85730; 86140; 87040; 87086; 87641; 93005; J0696; J1815; J2270; J2405; J3490; J8597; Q0162; Q9966; Q9967; S0028; G0479; J7030

== ENCOUNTER 2017-10-18 12:47 | Emergency (ER) | payer SELFPAY ==
[~2017-10-18] VITALS: Ht 170.2 cm; Wt 61.4 kg
[~2017-10-18 12:47] MED LIST changes: +CIPR500T94 PO
[2017-10-18] MEDS ORDERED: IV NORMAL SALINE 1,000ML 1,000 ML IV SCH (12:53)
[2017-10-18] MEDS ORDERED: HALOPERIDOL LACT 5 MG/ML VIAL. IVP ONE (13:15)
[2017-10-18 13:32] LABS: BASO # 0.1 x10^3/uL (0.0-0.2); BASO % 1 % (0-3); EOS % 1 % (0-3); HEMATOCRIT 39.4 % (36.0-47.0); HEMOGLOBIN 13.3 g/dL (12.0-15.5); LYMPH # 1.8 x10^3/uL (1.0-4.8); LYMPH % 27 % (24-48); MEAN CORPUSCULAR HEMOGLOBIN 29 pg (25-35); MEAN CORPUSCULAR HGB CONC 34 g/dL (31-37); MEAN CORPUSCULAR VOLUME 87 fL (79-100); MONO # 0.4 x10^3/uL (0.0-1.1); MONO % 7 % (0-9); NEUT # 4.4 x10^3uL (1.8-7.7); NEUT % 64 % (31-73); PLATELET COUNT 462 x10^3/uL (140-400); RED BLOOD COUNT 4.53 x10^6/uL (3.50-5.40); RED CELL DISTRIBUTION WIDTH 15.4 % (11.5-14.5); WHITE BLOOD COUNT 6.8 x10^3/uL (4.0-11.0)
[2017-10-18 14:23] LABS: ALBUMIN 3.8 g/dL (3.4-5.0); ALBUMIN/GLOBULIN RATIO 0.8 (1.0-1.7); CALCIUM 9.6 mg/dL (8.5-10.1); CREATININE 0.7 mg/dL (0.6-1.0); GFR 101.1; POTASSIUM 3.8 mmol/L (3.5-5.1); TOTAL BILIRUBIN 0.3 mg/dL (0.2-1.0); TOTAL PROTEIN 8.4 g/dL (6.4-8.2)
[2017-10-18 15:32] VITALS: BP 117/83
--- NOTE | 2017-10-18 15:44 | PHYS DOC ---
Past History Past Medical History: Diabetes, Other Additional Past Medical Histor: pt reports several admissions for "high blood sugar" Past Surgical History: No Surgical History Smoking: Less than 1pk/day Alcohol Use: None Drug Use: Marijuana, Methamphetamine Adult General Chief Complaint Chief Complaint: vomiting HPI HPI Patient is a 27-year-old female with type 1 diabetes and gastroparesis who presents with abdominal pain and vomiting today. The patient was dropped off by her [id number]. The patient was just released from the hospital yesterday after a hospitalization for the same. Patient states that she used meth last night. Patient states "I can't help it, I need help, I need some help for this" . Patient is complaining of abdominal pain and intractable vomiting. She did take her regularly dosed insulin today. Review of Systems Review of Systems Constitutional: Denies fever or chills [] HENT: Denies nasal congestion or sore throat [] Respiratory: Denies cough or shortness of breath [] Cardiovascular: Denies chest pain GI: As in history of present illness : Denies dysuria or hematuria [] Musculoskeletal: Denies back pain or joint pain [] Integument: Denies rash or skin lesions [] Neurologic: Generalized but not focal weakness Endocrine: As in history of present illness All other systems were reviewed and found to be within normal limits, except as documented in this note. Current Medications Current Medications Current Medications Medications (Trade) Dose Ordered Sig/Chevy Start Time Stop Time Status Last Admin Dose Admin Famotidine (Pepcid Vial) 20 mg 1X ONCE 10/18/17 16:00 10/18/17 16:01 Haloperidol Lactate (Haldol) 1.25 mg 1X ONCE 10/18/17 13:15 10/18/17 13:16 DC 10/18/17 13:29 1.25 MG Sodium Chloride 1,000 ml @ 1,000 mls/hr Q1H 10/18/17 12:53 10/18/17 13:52 DC 10/18/17 13:27 1,000 MLS/HR Allergies Allergies Allergies Coded Allergies Type Severity Reaction Last Updated Verified acetaminophen Allergy Intermediate HIVES 10/14/17 Yes adhesive tape Allergy Intermediate 10/14/17 Yes I S O L A T I O N *CONTACT* Allergy Unknown 10/14/17 Yes Physical Exam Physical Exam Constitutional: Thin female, alert, answering questions, having frequent dry heaves and some vomiting, warm and dry. HENT: Normocephalic, atraumatic, bilateral external ears normal, nose normal. [ ] Eyes: conjunctiva normal, no discharge. [] Neck: Normal range of motion, no stridor. [] Cardiovascular:Heart rate regular rhythm, no murmur [] Lungs & Thorax: Bilateral breath sounds clear to auscultation [] Abdomen: Soft, mild diffuse tenderness, no rebound or guarding, nondistended Skin: Warm, dry, no erythema, no rash. [] Extremities: No tenderness, no cyanosis, no clubbing, ROM intact, no edema. [] Neurologic: Alert and oriented X 3, normal motor function, no focal deficits noted. [] Current Patient Data Vital Signs Vital Signs Date Time Temp Pulse Resp B/P (MAP) Pulse Ox O2 Delivery O2 Flow Rate FiO2 10/18/17 12:47 97.8 120 20 98 Room Air Lab Results Laboratory Tests Test 10/18/17 13:24 10/18/17 13:50 White Blood Count 6.8 x10^3/uL (4.0-11.0) Red Blood Count 4.53 x10^6/uL (3.50-5.40) Hemoglobin 13.3 g/dL (12.0-15.5) # Hematocrit 39.4 % (36.0-47.0) Mean Corpuscular Volume 87 fL (79-100) Mean Corpuscular Hemoglobin 29 pg (25-35) Mean Corpuscular Hemoglobin Concent 34 g/dL (31-37) Red Cell Distribution Width 15.4 % (11.5-14.5) H Platelet Count 462 x10^3/uL (140-400) H Neutrophils (%) (Auto) 64 % (31-73) Lymphocytes (%) (Auto) 27 % (24-48) Monocytes (%) (Auto) 7 % (0-9) Eosinophils (%) (Auto) 1 % (0-3) Basophils (%) (Auto) 1 % (0-3) Neutrophils # (Auto) 4.4 x10^3uL (1.8-7.7) Lymphocytes # (Auto) 1.8 x10^3/uL (1.0-4.8) Monocytes # (Auto) 0.4 x10^3/uL (0.0-1.1) Eosinophils # (Auto) 0.0 x10^3/uL (0.0-0.7) Basophils # (Auto) 0.1 x10^3/uL (0.0-0.2) Sodium Level 138 mmol/L (136-145) Potassium Level 3.8 mmol/L (3.5-5.1) Chloride Level 99 mmol/L (98-107) Carbon Dioxide Level 27 mmol/L (21-32) Anion Gap 12 (6-14) Blood Urea Nitrogen 21 mg/dL (7-20) H Creatinine 0.7 mg/dL (0.6-1.0) Estimated GFR (Cockcroft-Gault) 101.1 BUN/Creatinine Ratio 30 (6-20) H Glucose Level 264 mg/dL (70-99) H Calcium Level 9.6 mg/dL (8.5-10.1) Total Bilirubin 0.3 mg/dL (0.2-1.0) Aspartate Amino Transferase (AST) 15 U/L (15-37) Alanine Aminotransferase (ALT) 17 U/L (14-59) Alkaline Phosphatase 114 U/L (46-116) Total Protein 8.4 g/dL (6.4-8.2) H Albumin 3.8 g/dL (3.4-5.0) Albumin/Globulin Ratio 0.8 (1.0-1.7) L Lipase 53 U/L (73-393) L EKG EKG [] Radiology/Procedures Radiology/Procedures [] Course & Med Decision Making Course & Med Decision Making Pertinent Labs and Imaging studies reviewed. (See chart for details) 27-year-old female presents with vomiting and abdominal pain, this is a typical presentation for her. She was given IV fluids. Her vomiting was improved with IV Haldol. She rested and slept for a while. Labs are relatively unremarkable except for an elevated blood sugar which is not markedly elevated. Patient does have insulin at home. She was given a phone number and information about the guidance center. She was encouraged to follow up as an outpatient. See instructions for plan [] Dragon Disclaimer Dragon Disclaimer This electronic medical record was generated, in whole or in part, using a voice recognition dictation system. Departure Departure: Impression: Primary Impression: Abdominal pain Additional Impressions: Intractable nausea and vomiting Type 1 diabetes Substance abuse Disposition: HOME, SELF-CARE Condition: IMPROVED Referrals: ESVIN ROLLINS (PCP) Patient Instructions: Nausea and Vomiting, [id number], Substance Abuse-Brief Additional Instructions: Clear liquids for the rest of the day. Keep a close eye on your blood sugar. Be sure not to overdose on insulin if you aren't able to take in any calories yet. You were given a referral to the [facility] as requested for absence abuse. Problem Qualifiers HANNAH ANTUNEZ MD Oct 18, 2017 15:43
[2017-10-18] MEDS ORDERED: FAMOTIDINE 20 MG/2 ML VIAL IVP ONE (16:00)
== END 2017-10-18 16:05 | disposition short-term general hospital (02) ==
LOC: ER 12:47
DX: R10.84 Generalized abdominal pain (principal); R11.2 Nausea with vomiting, unspecified; E10.9 Type 1 diabetes mellitus without complications; F12.10 Cannabis abuse, uncomplicated; F15.10 Other stimulant abuse, uncomplicated; F17.200 Nicotine dependence, unspecified, uncomplicated; Z88.8 Allergy status to other drugs, medicaments and biological substances; Z88.6 Allergy status to analgesic agent; Z91.041 Radiographic dye allergy status
CPT/HCPCS: 36415; 80053; 83690; 85025; 96361; 96374; 96375; 99285; J1630; S0028; J7030

== ENCOUNTER 2017-10-27 20:23 | Emergency (ER) | payer SELFPAY ==
[~2017-10-27] VITALS: Ht 170.2 cm; Wt 58.0 kg
[2017-10-27] MEDS ORDERED: ONDANSETRON ODT 4 MG TAB.RAPDIS ONE (20:27)
[2017-10-27] MEDS ORDERED: IV NORMAL SALINE 1,000ML 1,000 ML IV SCH (20:30)
[2017-10-27] MEDS ORDERED: ONDANSETRON ODT 4 MG TAB.RAPDIS PO ONE (20:30)
--- NOTE | 2017-10-27 20:49 | PHYS DOC ---
General Chief Complaint: NAUSEA/VOMITING/DIARRHEA Stated Complaint: chest pain Time Seen by MD: 20:30 Source: patient, EMS, old records Exam Limitations: no limitations Problems: History of Present Illness Initial Comments Patient is a 27-year-old female well known to this ED with history of diabetes and noncompliance with recurrent DKA brought to the ED with chest pain nausea and vomiting. Patient states that Accu-Chek at home read "high" however EMS reports there fingerstick blood sugar was 187. Patient was tachycardic in the 120s to 130s and received fentanyl intramuscularly en route to the emergency department. On arrival she remains tachycardic however appears to be comfortable with nausea but no vomiting. Timing/Duration: 1/2 hour Severity: severe Modifying Factors: improves with other Associated Symptoms: chest pain, nausea/vomiting, other Allergies: Coded Allergies: acetaminophen (Verified Allergy, Intermediate, HIVES, 10/14/17) "WHEN I HAD MY ANKLE BX THEY GAVE ME TYLENOL AND I GOT HIVES ON MY LEG." adhesive tape (Verified Allergy, Intermediate, 10/14/17) I S O L A T I O N *CONTACT* (Verified Allergy, Unknown, 10/14/17) +MRSA nares 05-15-17 Past Medical History Medical History: diabetes, other (noncompliance) Surgical History: noncontributory Psychosocial History: anxiety Social History Smoker: non-smoker Alcohol: none Drugs: marijuana (methamphetamine) Review of Systems Constitutional: denies chills, denies diaphoresis, denies fever, denies malaise Respiratory: denies cough, shortness of breath, denies wheezing Cardiovascular: chest pain, palpitations, denies syncope Gastrointestinal: abdominal pain, nausea, denies vomiting Genitourinary: see HPI, denies frequency, denies hematuria Musculoskeletal: denies back pain, denies joint swelling, denies neck pain Psychiatric/Neurological: anxiety, denies headache, denies numbness, denies paresthesia Physical Exam General Appearance: WD/WN, moderate distress Eyes: bilateral eye normal inspection, bilateral eye PERRL, bilateral eye EOMI Ear, Nose, Throat: hearing grossly normal, normal ENT inspection, normal pharynx Neck: non-tender, supple Respiratory: normal breath sounds, no respiratory distress Cardiovascular: normal peripheral pulses, tachycardia Gastrointestinal: normal bowel sounds, non tender, soft Back: no CVA tenderness, no vertebral tenderness Extremities: non-tender, normal inspection 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 Cordoba. Chest AP: No acute cardiopulmonary abnormality, interpreted by Dr. Cordoba. Labs fairly unremarkable urine drug screen positive for marijuana anion gap was normal. I rechecked the patient and discussed her results, she now states that she thinks she had a panic attack. She says she was feeling nervous and started feeling like she couldn't breathe, states that is one of her phobias. She states that she became very worked up and felt as if she couldn't breathe and had chest discomfort however now states that those symptoms have completely resolved. She's not had any recent nausea and her mood appears to be normal. D- dimer was negative. Patient is requesting discharge home states she started called her mother to come pick her up. I do not see an emergent region to admit her or keep her any longer, I discussed her recent UTI and revealed to her that her urine culture grew out normal urogenital nikita. I did encourage her to continue taking the medications, she states she thinks that she they make her nauseous. I encouraged her to take them with food and commended her for and discussed further sobriety from methamphetamine. Patient is aware she can return at any time she was advised to continue current medications and follow- up with her doctor on Monday. Departure Time of Disposition: 23:28 Disposition: HOME, SELF-CARE Diagnosis: panic attack, pyelonephritis Condition: IMPROVED Patient Instructions: Anxiety and Panic Attacks, [id number], Pyelonephritis, Adult, [id number] Additional Instructions: Aggressive hydration with Gatorade and water. Continue to maintain consistent ADA diet. Continue current medications. Follow-up with your doctor next week to recheck and to discuss anxiety and panic attacks. Prescription: Pyridium Return to ED with new or changing symptoms. CEDRIC CORDOBA DO Oct 27, 2017 20:49
[2017-10-27 21:39] LABS: BASO # 0.1 x10^3/uL (0.0-0.2); BASO % 1 % (0-3); EOS # 0.1 x10^3/uL (0.0-0.7); EOS % 1 % (0-3); HEMATOCRIT 39.1 % (36.0-47.0); HEMOGLOBIN 13.3 g/dL (12.0-15.5); LYMPH # 1.5 x10^3/uL (1.0-4.8); LYMPH % 29 % (24-48); MEAN CORPUSCULAR HEMOGLOBIN 29 pg (25-35); MEAN CORPUSCULAR HGB CONC 34 g/dL (31-37); MEAN CORPUSCULAR VOLUME 86 fL (79-100); MONO # 0.3 x10^3/uL (0.0-1.1); MONO % 6 % (0-9); NEUT # 3.1 x10^3uL (1.8-7.7); NEUT % 62 % (31-73); PLATELET COUNT 346 x10^3/uL (140-400); RED BLOOD COUNT 4.53 x10^6/uL (3.50-5.40)
--- NOTE | 2017-10-27 21:40 | EKG ---
[address] [address] Test Date: 2017-10-27 Test Time: 20:42:09 Pat Name: CHALO RAYMUNDO Department: Room: Gender: F Transformation Analyst: : 1990 Requested By: CEDRIC MELENDEZ Order Number: [id number] Reading MD: Measurements Intervals [place] Rate: P: HI: QRS: QRSD: T: QT: QTc: Interpretive Statements Compared to ECG 10/14/2017 20:59:40 Sinus rhythm no longer present
[2017-10-27 21:50] LABS: CALCIUM 9.1 mg/dL (8.5-10.1); CREATININE 0.6 mg/dL (0.6-1.0); GFR 120.8
[2017-10-27 22:50] LABS: AMPHETAMINE/METHAMPHETAMINE NEG (NEG); BARBITURATES NEG (NEG); BENZODIAZEPINES NEG (NEG); CANNABINOIDS POS (NEG); COCAINE NEG (NEG); METHADONE NEG (NEG); OPIATES NEG (NEG); PHENCYCLIDINE NEG (NEG)
[2017-10-27 22:55] LABS: CLARITY,URINE TURBID; COLOR,URINE YELLOW; GLUCOSE,URINE 100 mg/dL (NEG)
[2017-10-27 22:57] LABS: BACTERIA,URINE 0 /HPF (0-FEW); BILIRUBIN,URINE NEG (NEG); NITRITE,URINE NEG (NEG); SQUAMOUS EPITHELIAL CELL,UR MOD /LPF; UROBILINOGEN,URINE 1 mg/dL (0.2 mg/dL)
[2017-10-27 22:58] LABS: AMORPHOUS SEDIMENT,UR PRESENT /HPF
[2017-10-27] MEDS ORDERED: PHEN100T82 PO (23:28)
[2017-10-27 23:30] VITALS: BP 121/84
[2017-10-27] MEDS ORDERED: PHENAZOPYRIDINE 100 MG TABLET. PO ONE (23:45)
--- NOTE | 2017-10-28 08:31 | RAD ---
AP chest. History: Chest pain AP view was taken of the chest. Lungs are clear. Heart is normal in size without heart failure. There is no pleural effusion. Impression: 1. No acute chest disease.
== END 2017-10-27 23:30 | disposition home or self-care (01) ==
LOC: ER 20:23
DX: F41.0 Panic disorder [episodic paroxysmal anxiety] (principal); E11.10 Type 2 diabetes mellitus with ketoacidosis without coma; N12 Tubulo-interstitial nephritis, not specified as acute or chronic; F12.10 Cannabis abuse, uncomplicated; F15.10 Other stimulant abuse, uncomplicated; Z88.8 Allergy status to other drugs, medicaments and biological substances; Z88.6 Allergy status to analgesic agent; Z91.041 Radiographic dye allergy status
CPT/HCPCS: 36415; 71010; 80048; 80307; 81001; 81025; 82550; 83605; 83690; 84484; 85025; 85379; 87040; 87086; 93005; 96360; 96361; 99285; Q0162; G0479; J7030

== ENCOUNTER 2017-11-03 21:31 | Emergency (ER) | payer SELFPAY ==
[~2017-11-03] VITALS: Ht 170.2 cm; Wt 58.0 kg
[~2017-11-03 21:31] MED LIST changes: +PHEN100T82 PO
--- NOTE | 2017-11-03 21:42 | ED.ADGEN ---
Past History Past Medical History: Anxiety, Diabetes Additional Past Medical Histor: pt reports several admissions for "high blood sugar" Past Surgical History: No Surgical History Smoking: Less than 1pk/day Alcohol Use: None Drug Use: Marijuana, Methamphetamine Adult General Chief Complaint Chief Complaint " I am vomiting again.. My sugars have not been that bad..." HPI HPI Patient is a 27 year old female who presents with above hx of cyclic vomiting. Pt know to ED for episodes DKA, Polysubstance abuse and non- compliance in past. Pt. follow s with Dr. Vogel. Pt. denies bad food, travel, trauma or specific ill contacts. Review of Systems Review of Systems Constitutional: Denies fever or chills [] Eyes: Denies change in visual acuity, redness, or eye pain [] HENT: Denies nasal congestion or sore throat [] Respiratory: Denies cough or shortness of breath [] Cardiovascular: No additional information not addressed in HPI [] GI: complaints of abdominal pain, nausea, vomiting,. : Denies dysuria or hematuria [] Musculoskeletal: Denies back pain or joint pain [] Integument: Denies rash or skin lesions [] Neurologic: Denies headache, focal weakness or sensory changes [] Endocrine: Denies polyuria or polydipsia [] All other systems were reviewed and found to be within normal limits, except as documented in this note. Family History Family History Non-contributory Current Medications Current Medications Current Medications Medications (Trade) Dose Ordered Sig/Chevy Start Time Stop Time Status Last Admin Dose Admin Famotidine (Pepcid Vial) 20 mg 1X ONCE 11/03/17 21:45 11/03/17 21:47 DC 11/03/17 22:03 20 MG Ketorolac Tromethamine (Toradol) 30 mg 1X ONCE 11/03/17 21:45 11/03/17 21:47 DC 11/03/17 22:03 30 MG Ondansetron HCl (Zofran) 8 mg 1X ONCE 11/03/17 23:15 11/03/17 23:35 DC 11/03/17 23:10 8 MG Sodium Chloride 1,000 ml @ 100 mls/hr Q10H 11/03/17 21:45 11/04/17 01:32 DC 11/04/17 00:29 100 MLS/HR Allergies Allergies Allergies Coded Allergies Type Severity Reaction Last Updated Verified acetaminophen Allergy Intermediate HIVES 10/14/17 Yes adhesive tape Allergy Intermediate 10/14/17 Yes I S O L A T I O N *CONTACT* Allergy Unknown 10/14/17 Yes Physical Exam Physical Exam Constitutional: in acute distress, non-toxic appearance. [] HENT: Normocephalic, atraumatic, bilateral external ears normal, oropharynx moist, no oral exudates, nose normal. [] Eyes: PERRLA, EOMI, conjunctiva normal, no discharge. [] Neck: Normal range of motion, no tenderness, supple, no stridor. [] Cardiovascular:Tachycardia Heart rate regular rhythm, no murmur [] Lungs & Thorax: Bilateral breath sounds clear to auscultation [] Abdomen: Bowel sounds normal, soft, generalized tenderness, no masses, no pulsatile masses. [] Skin: Warm, dry, no erythema, no rash. [] Back: No tenderness, no CVA tenderness. [] Extremities: No tenderness, no cyanosis, no clubbing, ROM intact, no edema. [] Neurologic: Alert and oriented X 3, normal motor function, normal sensory function, no focal deficits noted. [] Psychologic: Affect anxious, judgement normal, mood depressed. Current Patient Data Vital Signs Vital Signs Date Time Temp Pulse Resp B/P (MAP) Pulse Ox O2 Delivery O2 Flow Rate FiO2 11/04/17 01:25 105 12 99 Room Air 11/04/17 00:57 115/78 (90) 11/03/17 23:01 98.2 Lab Results Laboratory Tests Test 11/03/17 21:45 11/03/17 22:08 11/03/17 23:00 Urine Collection Type Unknown Urine Color Yellow Urine Clarity Clear Urine pH 7.5 Urine Specific [place] 1.020 Urine Protein 100 mg/dl (NEG-TRACE) Urine Glucose (UA) >=1000 mg/dL (NEG) Urine Ketones (Stick) >=160 mg/dL (NEG) Urine Blood Trace (NEG) Urine Nitrite Neg (NEG) Urine Bilirubin Neg (NEG) Urine Urobilinogen Dipstick 0.2 mg/dL (0.2 mg/dL) Urine Leukocyte Esterase Neg (NEG) Urine RBC Rare /HPF (0-2) Urine WBC Occ /HPF (0-4) Urine Squamous Epithelial Cells Occ /LPF Urine Bacteria Few /HPF (0-FEW) Urine Mucus Slight /LPF Urine Opiates Screen Neg (NEG) Urine Methadone Screen Neg (NEG) Urine Barbiturates Neg (NEG) Urine Phencyclidine Screen Neg (NEG) Urine Amphetamine/Methamphetamine Pos (NEG) Urine Benzodiazepines Screen Neg (NEG) Urine Cocaine Screen Neg (NEG) Urine Cannabinoids Screen Neg (NEG) Urine Ethyl Alcohol Neg (NEG) Glucose (Fingerstick) 160 mg/dL (70-99) H White Blood Count 6.4 x10^3/uL (4.0-11.0) Red Blood Count 4.38 x10^6/uL (3.50-5.40) Hemoglobin 13.1 g/dL (12.0-15.5) Hematocrit 38.3 % (36.0-47.0) Mean Corpuscular Volume 87 fL (79-100) Mean Corpuscular Hemoglobin 30 pg (25-35) Mean Corpuscular Hemoglobin Concent 34 g/dL (31-37) Red Cell Distribution Width 15.5 % (11.5-14.5) H Platelet Count 338 x10^3/uL (140-400) Neutrophils (%) (Auto) 70 % (31-73) Lymphocytes (%) (Auto) 23 % (24-48) L Monocytes (%) (Auto) 5 % (0-9) Eosinophils (%) (Auto) 1 % (0-3) Basophils (%) (Auto) 1 % (0-3) Neutrophils # (Auto) 4.5 x10^3uL (1.8-7.7) Lymphocytes # (Auto) 1.5 x10^3/uL (1.0-4.8) Monocytes # (Auto) 0.3 x10^3/uL (0.0-1.1) Eosinophils # (Auto) 0.0 x10^3/uL (0.0-0.7) Basophils # (Auto) 0.1 x10^3/uL (0.0-0.2) Prothrombin Time 10.0 SEC (9.4-11.4) Prothrombin Time INR 1.0 (0.9-1.1) PTT 21 SEC (23-33) L Sodium Level 139 mmol/L (136-145) Potassium Level 4.2 mmol/L (3.5-5.1) Chloride Level 97 mmol/L (98-107) L Carbon Dioxide Level 26 mmol/L (21-32) Anion Gap 16 (6-14) H Blood Urea Nitrogen 23 mg/dL (7-20) H Creatinine 0.7 mg/dL (0.6-1.0) Estimated GFR (Cockcroft-Gault) 101.1 Glucose Level 199 mg/dL (70-99) H Calcium Level 9.0 mg/dL (8.5-10.1) Total Bilirubin 0.5 mg/dL (0.2-1.0) Direct Bilirubin 0.1 mg/dL (0.0-0.2) Aspartate Amino Transferase (AST) 14 U/L (15-37) L Alanine Aminotransferase (ALT) 23 U/L (14-59) Alkaline Phosphatase 84 U/L (46-116) Troponin I Quantitative < 0.017 ng/mL (0-0.055) Total Protein 8.1 g/dL (6.4-8.2) Albumin 3.9 g/dL (3.4-5.0) Lipase 44 U/L (73-393) L Serum Test, Qualitative Negative (NEG) EKG EKG [] Radiology/Procedures Radiology/Procedures My interpretation of the abdomen films show no significant cardiopulmonary changes. No free air under diaphragm. Stool in right colon. Course & Med Decision Making Course & Med Decision Making Pertinent Labs and Imaging studies reviewed. (See chart for details). Patient' s stay on clear fluid diet. Take Zofran as needed for nausea and vomiting. Avoid drug use. Follow-up primary care. Zantac 150 twice a day. Discussed presentation, testing and tx. plan with Dr. Machado. [] Final Impression Final Impression 1. Cyclic Vomiting 2. Hx DM[] 3. + Meth Amphetamine- screen 4. Dehydration 5. Gastritis Problems: Dragon Disclaimer Dragon Disclaimer This electronic medical record was generated, in whole or in part, using a voice recognition dictation system. YELENA HENRY MD Nov 03, 2017 21:42
[2017-11-03] MEDS ORDERED: ONDANSETRON PF 4 MG/2 ML VIAL. IV ONE ×2 (21:45→23:15)
[2017-11-03] MEDS ORDERED: KETOROLAC 30 MG/ML VIAL. IV ONE (21:45)
[2017-11-03] MEDS ORDERED: FAMOTIDINE 20 MG/2 ML VIAL IVP ONE (21:45)
[2017-11-03] MEDS: IV NORMAL SALINE 1,000ML 1,000 ML IV SCH ×2 (22:04→23:12)
[2017-11-03 22:36] LABS: BILIRUBIN,URINE NEG (NEG); CLARITY,URINE CLEAR; COLOR,URINE YELLOW; GLUCOSE,URINE >=1000 mg/dL (NEG)
[2017-11-03 22:37] LABS: BACTERIA,URINE FEW /HPF (0-FEW); NITRITE,URINE NEG (NEG); RBC,URINE RARE /HPF (0-2); SQUAMOUS EPITHELIAL CELL,UR OCC /LPF; UROBILINOGEN,URINE 0.2 mg/dL (0.2 mg/dL); WBC,URINE OCC /HPF (0-4)
[2017-11-03 22:42] LABS: AMPHETAMINE/METHAMPHETAMINE POS (NEG); BARBITURATES NEG (NEG); BENZODIAZEPINES NEG (NEG); CANNABINOIDS NEG (NEG); COCAINE NEG (NEG); METHADONE NEG (NEG); OPIATES NEG (NEG); PHENCYCLIDINE NEG (NEG)
[2017-11-03 23:21] LABS: BASO # 0.1 x10^3/uL (0.0-0.2); BASO % 1 % (0-3); EOS % 1 % (0-3); HEMATOCRIT 38.3 % (36.0-47.0); HEMOGLOBIN 13.1 g/dL (12.0-15.5); LYMPH # 1.5 x10^3/uL (1.0-4.8); LYMPH % 23 % (24-48); MEAN CORPUSCULAR HEMOGLOBIN 30 pg (25-35); MEAN CORPUSCULAR HGB CONC 34 g/dL (31-37); MEAN CORPUSCULAR VOLUME 87 fL (79-100); MONO # 0.3 x10^3/uL (0.0-1.1); MONO % 5 % (0-9); NEUT # 4.5 x10^3uL (1.8-7.7); NEUT % 70 % (31-73); PLATELET COUNT 338 x10^3/uL (140-400); RED BLOOD COUNT 4.38 x10^6/uL (3.50-5.40); RED CELL DISTRIBUTION WIDTH 15.5 % (11.5-14.5); WHITE BLOOD COUNT 6.4 x10^3/uL (4.0-11.0)
[2017-11-03 23:34] LABS: ALBUMIN 3.9 g/dL (3.4-5.0); CREATININE 0.7 mg/dL (0.6-1.0); DIRECT BILIRUBIN 0.1 mg/dL (0.0-0.2); GFR 101.1; POTASSIUM 4.2 mmol/L (3.5-5.1); TOTAL BILIRUBIN 0.5 mg/dL (0.2-1.0); TOTAL PROTEIN 8.1 g/dL (6.4-8.2)
[2017-11-03 23:36] LABS: PREG TEST PT QUAL NEGATIVE (NEG)
[2017-11-04] MEDS: IV NORMAL SALINE 1,000ML 1,000 ML IV SCH (00:29)
[2017-11-04] MEDS ORDERED: ONDA8TAB12 PO (00:43)
[2017-11-04] MEDS ORDERED: RANI150T6 PO (00:43)
[2017-11-04 00:57] VITALS: BP 115/78
--- NOTE | 2017-11-04 08:48 | RAD ---
Single view chest and AP upright and supine views abdomen 11/03/2017 Clinical indication: Cyclical vomiting and abdominal pain. Comparison: CT abdomen and pelvis 10/14/2017, chest x-ray at 09/13/2017. Findings: Cardiac and mediastinal silhouettes are unremarkable. No pleural effusion, pneumothorax or focal consolidation. There is a nonobstructive bowel gas pattern. There is a moderate amount of retained colonic stool throughout. No evidence of pneumoperitoneum or portal venous gas. Impression: 1. No acute cardiopulmonary abdomen the. 2. No radiographic evidence of bowel obstruction or pneumoperitoneum. 3. Moderate retained clonic stool, may contribute to constipation.
== END 2017-11-04 01:25 | disposition home or self-care (01) ==
LOC: ER 21:31
DX: G43.A0 Cyclical vomiting, in migraine, not intractable (principal); E86.0 Dehydration; K29.70 Gastritis, unspecified, without bleeding; F15.10 Other stimulant abuse, uncomplicated; F12.10 Cannabis abuse, uncomplicated; E11.10 Type 2 diabetes mellitus with ketoacidosis without coma; F41.9 Anxiety disorder, unspecified; F17.210 Nicotine dependence, cigarettes, uncomplicated; Z88.8 Allergy status to other drugs, medicaments and biological substances; Z88.6 Allergy status to analgesic agent; Z91.041 Radiographic dye allergy status
CPT/HCPCS: 36415; 74022; 80048; 80076; 80307; 81001; 82947; 83690; 84484; 84703; 85025; 85610; 85730; 96361; 96374; 96375; 96376; 99285; J1885; J2405; S0028; G0479; J7030

== ENCOUNTER 2017-11-10 14:15 | Inpatient (IN) | payer SELFPAY ==
[~2017-11-10] VITALS: Ht 170.1 cm; Wt 60.0 kg
[~2017-11-10 14:15] MED LIST changes: +ONDA8TAB12 PO; +RANI150T6 PO
[2017-11-10] MEDS ORDERED: IV NORMAL SALINE 1,000ML 1,000 ML IV ONE ×2 (14:45→16:00)
[2017-11-10] MEDS ORDERED: ONDANSETRON ODT 4 MG TAB.RAPDIS PO ONE (14:45)
[2017-11-10] MEDS ORDERED: ONDANSETRON PF 4 MG/2 ML VIAL. IV ONE (14:45)
[2017-11-10 14:56] LABS: BASO # 0.1 x10^3/uL (0.0-0.2); BASO % 1 % (0-3); EOS % 0 % (0-3); HEMATOCRIT 47.4 % (36.0-47.0); HEMOGLOBIN 14.9 g/dL (12.0-15.5); LYMPH # 1.5 x10^3/uL (1.0-4.8); LYMPH % 13 % (24-48); MEAN CORPUSCULAR HEMOGLOBIN 30 pg (25-35); MEAN CORPUSCULAR HGB CONC 31 g/dL (31-37); MEAN CORPUSCULAR VOLUME 94 fL (79-100); MONO # 0.3 x10^3/uL (0.0-1.1); MONO % 3 % (0-9); NEUT # 9.8 x10^3uL (1.8-7.7); NEUT % 83 % (31-73); PLATELET COUNT 523 x10^3/uL (140-400); RED BLOOD COUNT 5.03 x10^6/uL (3.50-5.40); RED CELL DISTRIBUTION WIDTH 15.6 % (11.5-14.5); WHITE BLOOD COUNT 11.8 x10^3/uL (4.0-11.0)
--- NOTE | 2017-11-10 14:59 | RAD ---
Indication: Chest pain and shortness of air. Time of exam 1448 hours. Correlation is made with prior study from 11/03/2017. FINDINGS: The heart size is normal. The lungs are clear. No pleural effusion or pneumothorax is identified. The pulmonary vascularity is normal. IMPRESSION: No acute abnormality detected.
[2017-11-10 15:12] LABS: CLARITY,URINE HAZY; COLOR,URINE YELLOW
[2017-11-10 15:13] LABS: BACTERIA,URINE 0 /HPF (0-FEW); BILIRUBIN,URINE NEG (NEG); GLUCOSE,URINE 500 mg/dL (NEG); NITRITE,URINE NEG (NEG); SQUAMOUS EPITHELIAL CELL,UR MANY /LPF; UROBILINOGEN,URINE 0.2 mg/dL (0.2 mg/dL)
--- NOTE | 2017-11-10 15:41 | EKG ---
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
[2017-11-10 15:45] LABS: ALBUMIN 4.8 g/dL (3.4-5.0); ALBUMIN/GLOBULIN RATIO 1.3 (1.0-1.7); CALCIUM 10.3 mg/dL (8.5-10.1); CREATININE 1.6 mg/dL (0.6-1.0); MAGNESIUM 2.3 mg/dL (1.8-2.4); TOTAL BILIRUBIN 0.8 mg/dL (0.2-1.0); TOTAL PROTEIN 8.5 g/dL (6.4-8.2)
[2017-11-10 15:50] LABS: POTASSIUM 6.1 mmol/L (3.5-5.1)
[2017-11-10 16:21] LABS: BARBITURATES NEG (NEG); BENZODIAZEPINES NEG (NEG); CANNABINOIDS NEG (NEG); COCAINE NEG (NEG); METHADONE NEG (NEG); OPIATES NEG (NEG); PHENCYCLIDINE NEG (NEG)
[2017-11-10 16:22] LABS: AMPHETAMINE/METHAMPHETAMINE POS (NEG)
[2017-11-10] MEDS ORDERED: IV NORMAL SALINE 1,000ML 1,000 ML IV SCH (16:37)
[2017-11-10] MEDS ORDERED: IV DEXTROSE 5 %-0.45 % NACL 1,000 ML IV SCH (16:37)
[2017-11-10] MEDS ORDERED: MAGNESIUM SULFATE 2GM 50 ML IV PRN (16:45)
[2017-11-10] MEDS ORDERED: ONDANSETRON PF 4 MG/2 ML VIAL. IV PRN (16:45)
[2017-11-10] MEDS ORDERED: POTASSIUM CHLORIDE 10MEQ 100 ML IV PRN ×5 (16:45)
[2017-11-10 17:15] VITALS: BP 116/76
[2017-11-10] MEDS: NORMAL SALINE IV PRN (17:19)
[2017-11-10] MEDS: INSULIN REGULAR IV PRN (17:19)
--- NOTE | 2017-11-10 17:42 | PHYS DOC ---
Past History Past Medical History: Anxiety, Diabetes Additional Past Medical Histor: pt reports several admissions for "high blood sugar" Past Surgical History: No Surgical History Smoking: Less than 1pk/day Alcohol Use: None Drug Use: Cocaine, Marijuana, Methamphetamine Adult General Chief Complaint Chief Complaint: HYPERGLYCEMIA HPI HPI Patient is a 27 year old female who presents with hyperglycemia and nausea/ vomiting. The patient reports she has type 1 diabetes, ran out of insulin 2 days ago. Has been unable to check blood glucose. Reports nausea and vomiting today. Reports chest pain and shortness of breath. Denies fevers or chills, hematemesis, abdominal pain, diarrhea, dysuria or hematuria, lower extremity pain or swelling. History of numerous admissions for hyperglycemia and diabetic ketoacidosis. History of methamphetamine abuse. Review of Systems Review of Systems Constitutional: Denies fever or chills Eyes: Denies change in visual acuity HENT: Denies nasal congestion or sore throat Respiratory: Denies cough or reports shortness of breath Cardiovascular: Reports chest pain, denies edema GI: Reports nausea and vomiting. Denies abdominal pain, or diarrhea : Denies dysuria or hematuria Musculoskeletal: Denies back pain or joint pain Integument: Denies rash or skin lesions Neurologic: Denies headache, focal weakness or sensory changes All other systems were reviewed and found to be within normal limits, except as documented in this note. Current Medications Current Medications Current Medications Medications (Trade) Dose Ordered Sig/Chevy Start Time Stop Time Status Last Admin Dose Admin Ondansetron HCl (Zofran Odt) 4 mg 1X ONCE 11/10/17 14:45 11/10/17 14:46 DC 11/10/17 14:43 4 MG Ondansetron HCl (Zofran) 4 mg 1X ONCE 11/10/17 14:45 11/10/17 14:46 DC Sodium Chloride 1,000 ml @ 1,000 mls/hr 1X ONCE 11/10/17 16:00 11/10/17 16:59 DC 11/10/17 17:26 1,000 MLS/HR Allergies Allergies Allergies Coded Allergies Type Severity Reaction Last Updated Verified acetaminophen Allergy Intermediate HIVES 10/14/17 Yes adhesive tape Allergy Intermediate 10/14/17 Yes I S O L A T I O N *CONTACT* Allergy Unknown 10/14/17 Yes Physical Exam Physical Exam Constitutional: Appears ill HENT: Normocephalic, atraumatic, bilateral external ears normal, oropharynx moist, nose normal. Eyes: conjunctiva normal, no discharge. Neck: supple, no stridor. Cardiovascular: tachycardic, regular, no murmurs, no edema. Lungs & Thorax: LCTAB, no wheezing, no respiratory distress. Abdomen: soft, nontender, no rebound/guarding, no masses or pulsatile masses, nondistended. Skin: Warm, dry, no erythema, no rash. Back: No CVA tenderness. Extremities: No tenderness, no edema. Neurologic: Alert and oriented X 3, no focal deficits noted. Psychologic: flat affect Current Patient Data Vital Signs Vital Signs Date Time Temp Pulse Resp B/P (MAP) Pulse Ox O2 Delivery O2 Flow Rate FiO2 11/10/17 16:47 133 18 106/67 (80) 100 Nasal Cannula 2.0 11/10/17 14:18 97.4 Lab Results Laboratory Tests Test 11/10/17 14:22 11/10/17 14:27 11/10/17 14:30 11/10/17 15:12 Urine Opiates Screen Neg (NEG) Urine Methadone Screen Neg (NEG) Urine Barbiturates Neg (NEG) Urine Phencyclidine Screen Neg (NEG) Urine Amphetamine/Methamphetamine Pos (NEG) Urine Benzodiazepines Screen Neg (NEG) Urine Cocaine Screen Neg (NEG) Urine Cannabinoids Screen Neg (NEG) Urine Ethyl Alcohol Neg (NEG) Urine Collection Type Unknown Urine Color Yellow Urine Clarity Hazy Urine pH 5.0 Urine Specific [place] 1.020 Urine Protein 30 mg/dl (NEG-TRACE) Urine Glucose (UA) 500 mg/dL (NEG) Urine Ketones (Stick) >=160 mg/dL (NEG) Urine Blood Neg (NEG) Urine Nitrite Neg (NEG) Urine Bilirubin Neg (NEG) Urine Urobilinogen Dipstick 0.2 mg/dL (0.2 mg/dL) Urine Leukocyte Esterase Neg (NEG) Urine RBC 3-5 /HPF (0-2) Urine WBC 11-20 /HPF (0-4) Urine Squamous Epithelial Cells Many /LPF Urine Bacteria 0 /HPF (0-FEW) Urine Mucus Slight /LPF White Blood Count 11.8 x10^3/uL (4.0-11.0) #H Red Blood Count 5.03 x10^6/uL (3.50-5.40) Hemoglobin 14.9 g/dL (12.0-15.5) Hematocrit 47.4 % (36.0-47.0) H Mean Corpuscular Volume 94 fL (79-100) # Mean Corpuscular Hemoglobin 30 pg (25-35) Mean Corpuscular Hemoglobin Concent 31 g/dL (31-37) Red Cell Distribution Width 15.6 % (11.5-14.5) H Platelet Count 523 x10^3/uL (140-400) H Neutrophils (%) (Auto) 83 % (31-73) H Lymphocytes (%) (Auto) 13 % (24-48) L Monocytes (%) (Auto) 3 % (0-9) Eosinophils (%) (Auto) 0 % (0-3) Basophils (%) (Auto) 1 % (0-3) Neutrophils # (Auto) 9.8 x10^3uL (1.8-7.7) H Lymphocytes # (Auto) 1.5 x10^3/uL (1.0-4.8) Monocytes # (Auto) 0.3 x10^3/uL (0.0-1.1) Eosinophils # (Auto) 0.0 x10^3/uL (0.0-0.7) Basophils # (Auto) 0.1 x10^3/uL (0.0-0.2) Platelet Estimate Pending Sodium Level 129 mmol/L (136-145) L Potassium Level 6.1 mmol/L (3.5-5.1) *H Chloride Level 84 mmol/L (98-107) L Carbon Dioxide Level 7 mmol/L (21-32) *L Anion Gap 38 (6-14) H Blood Urea Nitrogen 37 mg/dL (7-20) H Creatinine 1.6 mg/dL (0.6-1.0) H Estimated GFR (Cockcroft-Gault) 39.0 BUN/Creatinine Ratio 23 (6-20) H Glucose Level 694 mg/dL (70-99) *H Calcium Level 10.3 mg/dL (8.5-10.1) H Phosphorus Level 8.6 mg/dL (2.6-4.7) H Magnesium Level 2.3 mg/dL (1.8-2.4) Total Bilirubin 0.8 mg/dL (0.2-1.0) Aspartate Amino Transferase (AST) 12 U/L (15-37) L Alanine Aminotransferase (ALT) 20 U/L (14-59) Alkaline Phosphatase 107 U/L (46-116) Troponin I Quantitative < 0.017 ng/mL (0-0.055) Total Protein 8.5 g/dL (6.4-8.2) H Albumin 4.8 g/dL (3.4-5.0) Albumin/Globulin Ratio 1.3 (1.0-1.7) Test 11/10/17 15:57 POC Urine HCG, Qualitative hcg negative (Negative) EKG EKG Interpreted by me: Sinus tachycardia rate 135, no acute ST or T wave changes, no ectopy.[] Radiology/Procedures Radiology/Procedures PROCEDURE: CHEST AP ONLY Indication: Chest pain and shortness of air. Time of exam 1448 hours. Correlation is made with prior study from 11/03/2017. FINDINGS: The heart size is normal. The lungs are clear. No pleural effusion or pneumothorax is identified. The pulmonary vascularity is normal. IMPRESSION: No acute abnormality detected. DICTATED AND SIGNED BY: JOÃO SANTOS MD DATE: 11/10/17 5067[] Course & Med Decision Making Course & Med Decision Making Pertinent Labs and Imaging studies reviewed. (See chart for details) The patient presents with hyperglycemia. She appears ill and is tachycardic. Gave IV fluids. [id number] glucose is too high to measure. Labs show diabetic ketoacidosis with hyperkalemia. Additional IV fluids administered. DKA protocol including insulin drip is ordered. Recommended admission to the hospital for further management. Patient agrees with plan of care. Discussed with Dr. Pereira who agrees to admit to inpatient status to the ICU. The patient is being admitted in critical condition. Critical care time: 35 minutes [] Dragon Disclaimer Dragon Disclaimer This electronic medical record was generated, in whole or in part, using a voice recognition dictation system. Departure Departure: Impression: Primary Impression: Diabetic ketoacidosis Additional Impressions: Hyperkalemia Acute renal failure Tachycardia Methamphetamine abuse Disposition: ADMITTED INPATIENT Admitting Physician: Justin Pereira Condition: CRITICAL Referrals: ESVIN ROLLINS (PCP) Problem Qualifiers Primary Impression: Diabetic ketoacidosis Diabetes mellitus type: type 1 Diabetes mellitus complication detail: without coma Qualified Codes: E10.10 - Type 1 diabetes mellitus with ketoacidosis without coma YURI CONDE MD Nov 10, 2017 17:42
[2017-11-10 19:00] VITALS: BP 117/74
[2017-11-10 19:32] LABS: CALCIUM 8.6 mg/dL (8.5-10.1); CREATININE 1.6 mg/dL (0.6-1.0)
[2017-11-10 19:43] LABS: POTASSIUM 6.1 mmol/L (3.5-5.1)
[2017-11-10 20:05] VITALS: BP 113/85
[2017-11-10 21:05] VITALS: BP 108/70
[2017-11-10] MEDS: IV NORMAL SALINE 1,000ML 1,000 ML IV SCH ×2 (21:21→23:25)
[2017-11-10 22:05] VITALS: BP 112/66
[2017-11-10 22:06] LABS: % BANDS 4 % (0-9); % LYMPHS 11 % (24-48); % MONOS 2 % (0-10); % SEGS 83 % (35-66)
[2017-11-10 22:07] LABS: PLT ESTIMATE INCREASED (ADEQUATE)
[2017-11-10 22:12] LABS: BURR CELLS FEW
[2017-11-10 23:05] VITALS: BP 121/70
[2017-11-11] VITALS (15 sets, daily range): BP systolic 95–155; BP diastolic 51–99
[2017-11-11] MEDS: NORMAL SALINE IV PRN (00:16)
[2017-11-11] MEDS: INSULIN REGULAR IV PRN (00:16)
[2017-11-11 06:08] LABS: CALCIUM 8.1 mg/dL (8.5-10.1); CREATININE 0.9 mg/dL (0.6-1.0); GFR 75.7; POTASSIUM 3.9 mmol/L (3.5-5.1)
[2017-11-11 06:26] LABS: BASO % 0 % (0-3); EOS % 0 % (0-3); HEMATOCRIT 32.2 % (36.0-47.0); LYMPH # 2.8 x10^3/uL (1.0-4.8); LYMPH % 17 % (24-48); MEAN CORPUSCULAR HEMOGLOBIN 30 pg (25-35); MEAN CORPUSCULAR HGB CONC 34 g/dL (31-37); MEAN CORPUSCULAR VOLUME 87 fL (79-100); MONO # 1.4 x10^3/uL (0.0-1.1); MONO % 8 % (0-9); NEUT # 12.3 x10^3uL (1.8-7.7); NEUT % 74 % (31-73); PLATELET COUNT 350 x10^3/uL (140-400); RED BLOOD COUNT 3.69 x10^6/uL (3.50-5.40); RED CELL DISTRIBUTION WIDTH 14.6 % (11.5-14.5); WHITE BLOOD COUNT 16.6 x10^3/uL (4.0-11.0)
[2017-11-11] MEDS ORDERED: DEXTROSE 50% 25 GM / 50ML DISP.SYRIN. IV PRN (08:15)
[2017-11-11 08:53] LABS: % BANDS 1 % (0-9); % LYMPHS 11 % (24-48); % MONOS 9 % (0-10); % SEGS 79 % (35-66); PLT ESTIMATE ADEQUATE (ADEQUATE); POLYCHROMASIA SLIGHT; TOXIC GRANULATION SLIGHT
[2017-11-11 08:54] LABS: ANISOCYTOSIS SLIGHT
[2017-11-11] MEDS: MAGNESIUM OXIDE 400 MG TABLET PO SCH (12:15)
[2017-11-11] MEDS: METOCLOPRAMIDE 10 MG TABLET PO SCH ×3 (12:17→19:41)
[2017-11-11] MEDS: INSULIN ASPART 300 UNITS/3 ML INSULN.PEN SQ SCH ×3 (13:34→19:42)
--- NOTE | 2017-11-11 14:10 | HP ---
ADMIT DATE: 11/10/2017 HISTORY OF PRESENT ILLNESS: The patient is a 27-year-old female patient with type 1 diabetes that is poorly controlled with recurrent admissions in DKA who came to the Emergency Room with hyperglycemia, recurrent bouts of nausea and vomiting. She ran out of her insulin 2 days ago. She has been unable to check her blood glucose and apparently has been continued to smoke, amphetamine, methamphetamine. She reported also chest pain and shortness of breath, but denied any fever, chills, hematemesis, abdominal pain, diarrhea, dysuria, hematuria. She was evaluated in the Emergency Room, was found to have severe hyperglycemia with a blood sugar of 744, dilutional hyponatremia, hyperkalemia and severe anion gap metabolic acidosis. Her bicarbonate was only 6 and anion gap of 34. She has also acute kidney injury with a BUN of 43, creatinine 1.6 and was admitted with diabetic ketoacidosis. She was started on IV fluid and insulin sliding scale. Her chest x-ray was unremarkable. Urinalysis was also unremarkable and was kept in the ICU to monitor her blood sugar and her electrolytes closely. PAST MEDICAL HISTORY: Significant for poorly controlled type 1 diabetes with multiple admissions to this facility in diabetic ketoacidosis, chronic hypomagnesemia, gastroparesis, depression, adjustment disorder, intermittent methamphetamine drug abuse. PAST SURGICAL HISTORY: Significant for Port-A-Cath placement and removal and incision and drainage of left axillary abscesses. FAMILY HISTORY: Unremarkable. SOCIAL HISTORY: She lives with her mom. Apparently, she has intermittent use of amphetamine. She does smoke, but does not drink alcohol. REVIEW OF SYSTEMS: The patient denied any blurring of vision, cataract, glaucoma or macular degeneration. Denied any earache, tinnitus or deafness. Denied any nosebleeds, stuffy nose or postnasal drip. She did complain of sore throat, nausea, vomiting, but no diarrhea or constipation. Denied any hematemesis, melena or hematochezia. Denied any chest pain, shortness of breath, orthopnea, paroxysmal nocturnal dyspnea. Denied any cough, phlegm or hemoptysis. Denied any chills, rigors or fever. PHYSICAL EXAMINATION: GENERAL: On arrival to the Emergency Room, she looked well. She was pale, but no jaundice, cyanosis, lymphadenopathy or thyromegaly. No jugular venous distension. No limb edema. VITAL SIGNS: Her heart rate was 130, blood pressure was 117/74, temperature was 97.6, respiratory rate 20, and oxygen saturation was 100% on 2 liters oxygen by nasal cannula. HEENT: Showed normocephalic, atraumatic. NECK: Supple. HEART: Showed normal first and second sounds. No gallop, rub or murmur. CHEST: Clear to auscultation. No crepitation or rhonchi. ABDOMEN: Distended, soft, nontender. NEUROLOGIC: She was sleepy, but arousable. All cranial nerves intact. EXTREMITIES: She moves extremities without difficulty. LABORATORY DATA: On arrival showed that her white cell count was 11,800, hemoglobin 14.9, hematocrit 47.7, MCV 94 and platelet count of 523,000 with normal manual differential. Her initial admission chemistry showed a serum sodium of 129, potassium 6.1, chloride 84, bicarbonate 7, anion gap of 38, BUN 37, creatinine 1.6, estimated GFR was 39 mL per minute. Her glucose was 694 mg/dL. The calcium was 10.3, magnesium was 2.3. Total bilirubin, AST, ALT, alkaline phosphatase were normal. Total protein was 8.5, albumin was 4.8. Her urinalysis showed the urine was yellow, hazy with a pH of 5, specific gravity of 1.020. There was a trace of protein, large amount of glucose, trace of ketones, negative for blood, nitrite and leukocyte esterase. There were 3-5 rbc's, 11-20 wbc's, no bacteria. Her urine test was negative. Her urine toxicology screen was positive for amphetamine with methamphetamine, negative for opiates, methadone, barbiturates, phencyclidine, benzodiazepine, cocaine, cannabinoids and alcohol. Her chest x-ray showed that the heart size is normal. The lungs are clear, no pleural effusion or pneumothorax is identified. The pulmonary vascularity is normal. ASSESSMENT AND PLAN: In summary, this is a 27-year-old female patient with yet another admission with DKA. She is positive for amphetamine, methamphetamine. We will continue with IV fluid and insulin drip as per DKA protocol. We will continue to obviously keep an eye on her fever and any indication of infection. We will fowler culture her. ANAYELI FOSS MD DR: JOSÉ/regina JOB#: [id number] / [id number]
[2017-11-11] MEDS ORDERED: BENZOCAINE/MENTHOL LOZNGE 18'S BOX. PO PRN (17:30)
[2017-11-11] MEDS: IV NORMAL SALINE 1,000ML 1,000 ML IV SCH (19:24)
[2017-11-11] MEDS: FAMOTIDINE 20 MG TABLET PO SCH (19:41)
[2017-11-11] MEDS: INSULIN DETEMIR 300 UNITS/3 ML INSULN.PEN. SQ SCH (19:42)
[2017-11-12] VITALS (7 sets, daily range): BP systolic 122–159; BP diastolic 77–109
[2017-11-12] MEDS: IV NORMAL SALINE 1,000ML 1,000 ML IV SCH ×2 (02:02→06:06)
[2017-11-12 06:50] LABS: HEMATOCRIT 29.9 % (36.0-47.0); HEMOGLOBIN 10.2 g/dL (12.0-15.5); RED BLOOD COUNT 3.43 x10^6/uL (3.50-5.40); RED CELL DISTRIBUTION WIDTH 15.3 % (11.5-14.5)
[2017-11-12 07:04] LABS: ALBUMIN 2.6 g/dL (3.4-5.0); CALCIUM 8.1 mg/dL (8.5-10.1); CREATININE 0.7 mg/dL (0.6-1.0); GFR 101.1; MAGNESIUM 1.5 mg/dL (1.8-2.4); POTASSIUM 3.4 mmol/L (3.5-5.1); TOTAL BILIRUBIN 0.1 mg/dL (0.2-1.0); TOTAL PROTEIN 5.3 g/dL (6.4-8.2)
--- NOTE | 2017-11-12 07:15 | PN ---
DATE: 11/11/2017 SUBJECTIVE: The patient is sitting slightly propped up in bed, in no apparent distress. On questioning her, she said she is feeling much better. She has had no more nausea and vomiting; however, she continued to have sore throat. However, she was able to eat and drink. Her blood sugar is much better controlled. Her sodium, potassium, and anion gap has all normalized. OBJECTIVE: GENERAL: When I examined her this afternoon, she was pale, but no jaundice, cyanosis, lymphadenopathy or thyromegaly. No jugular venous distension. No lower limb edema. VITAL SIGNS: Her heart rate was 119, blood pressure was 102/60, temperature was 98, respiratory rate was 18 and oxygen saturation was 99% on room air. HEENT: Showed normocephalic, atraumatic. NECK: Supple. HEART: Showed normal first and second sounds. No gallop, rub or murmur. CHEST: Clear to auscultation. No crepitation or rhonchi. ABDOMEN: Distended, soft, nontender. No guarding or rigidity. No organomegaly. Hernial orifice intact. Bowel sounds normal. NEUROLOGIC: She was awake, alert, responding appropriately. Cranial nerves intact. She moves extremities without difficulty. She ambulates without assistance or assistive devices. Her intake over the last 24 hours was 4000, output was 1800. LABORATORY DATA: As of this morning, her white cell count was 136, potassium 3.9, chloride 105, bicarbonate 18, anion gap of 13, BUN of 25, creatinine 0.9, estimated GFR was 76 mL per minute. Her glucose was 146, calcium was 8.1. Her white cell count was 16,600, hemoglobin 11, hematocrit 32, MCV 87, and platelet count of 350,000. PLAN: To obviously continue with IV fluid, start her on her home insulin regimen. We will monitor her for 24 hours and if she is stable tomorrow, she can be discharged to continue on her regular home. ANAYELI FOSS MD DR: JOSÉ/regina JOB#: [id number] / [id number]
[2017-11-12] MEDS: INSULIN ASPART 300 UNITS/3 ML INSULN.PEN SQ SCH ×2 (08:12→12:17)
[2017-11-12] MEDS: INSULIN DETEMIR 300 UNITS/3 ML INSULN.PEN. SQ SCH (08:12)
[2017-11-12] MEDS: MAGNESIUM OXIDE 400 MG TABLET PO SCH (09:03)
[2017-11-12] MEDS: METOCLOPRAMIDE 10 MG TABLET PO SCH ×2 (09:04→12:59)
[2017-11-12] MEDS: FAMOTIDINE 20 MG TABLET PO SCH (09:04)
[2017-11-12] MEDS ORDERED: IOHEXOL 300 MG/ML 75 ML VIAL. IV ONE (11:30)
--- NOTE | 2017-11-12 12:47 | RAD ---
PQRS Compliance Statement: One or more of the following individualized dose reduction techniques were utilized for this examination: 1. Automated exposure control 2. Adjustment of the mA and/or kV according to patient size 3. Use of iterative reconstruction technique CT SOFT TISSUE NECK W/CONTRAST Clinical Indication: pain and abscess and or enlarged lymph node on the left side Comparison: None. Technique: Helical CT imaging of the neck is performed after 75 cc Omnipaque 300 IV contrast. Findings: Visualized upper lungs are clear. No upper mediastinal adenopathy. The thyroid, submandibular, and parotid glands are symmetric. Inferior orbits unremarkable. Visualized mastoid air cells and paranasal sinuses are clear. The parapharyngeal fat planes are preserved. Visualized vasculature unremarkable. No subcutaneous fluid collection is seen. There are 2 8 mm short axis diameter left level 2 lymph nodes. There is an 8 mm short axis diameter right level 2 lymph node. There is no adenopathy. Cervical spine alignment is maintained. IMPRESSION: No acute abnormality.
== END 2017-11-12 13:33 | disposition home or self-care (01) | DRG 682 ==
LOC: ER 14:15 → ICU 16:06
PROVIDERS: ADMIT Internal Medicine; ATTEND Internal Medicine
DX: N17.9 Acute kidney failure, unspecified (principal); E10.10 Type 1 diabetes mellitus with ketoacidosis without coma; E87.1 Hypo-osmolality and hyponatremia; E87.5 Hyperkalemia; F15.10 Other stimulant abuse, uncomplicated; F17.200 Nicotine dependence, unspecified, uncomplicated; Z79.4 Long term (current) use of insulin; F12.90 Cannabis use, unspecified, uncomplicated; F14.90 Cocaine use, unspecified, uncomplicated; F32.9 Major depressive disorder, single episode, unspecified; F41.9 Anxiety disorder, unspecified; F43.20 Adjustment disorder, unspecified; Z88.8 Allergy status to other drugs, medicaments and biological substances; Z91.048 Other nonmedicinal substance allergy status
CPT/HCPCS: 36415; 70491; 71010; 80048; 80053; 80307; 81001; 81025; 82947; 83735; 83930; 84100; 84484; 85007; 85025; 85027; 87070; 87086; 87880; 93005; J1815; J2405; J8597; Q0162; Q9967; G0479; J7030

== ENCOUNTER 2017-11-13 20:14 | Emergency (ER) | payer SELFPAY ==
[~2017-11-13] VITALS: Ht 170.1 cm; Wt 58.0 kg
[2017-11-13] MEDS ORDERED: IV NORMAL SALINE 1,000ML 1,000 ML IV SCH ×2 (20:20→22:00)
[2017-11-13] MEDS ORDERED: PROMETHAZINE 25 MG in IV NORMAL SALINE 50ML 50 ML IV PRN (20:30)
[2017-11-13 20:54] LABS: BASO % 1 % (0-3); EOS # 0.1 x10^3/uL (0.0-0.7); EOS % 1 % (0-3); HEMATOCRIT 40.6 % (36.0-47.0); LYMPH # 1.7 x10^3/uL (1.0-4.8); LYMPH % 30 % (24-48); MEAN CORPUSCULAR HEMOGLOBIN 30 pg (25-35); MEAN CORPUSCULAR HGB CONC 34 g/dL (31-37); MEAN CORPUSCULAR VOLUME 87 fL (79-100); MONO # 0.5 x10^3/uL (0.0-1.1); MONO % 8 % (0-9); NEUT # 3.5 x10^3uL (1.8-7.7); NEUT % 60 % (31-73); PLATELET COUNT 312 x10^3/uL (140-400); RED BLOOD COUNT 4.68 x10^6/uL (3.50-5.40); RED CELL DISTRIBUTION WIDTH 15.1 % (11.5-14.5); WHITE BLOOD COUNT 5.8 x10^3/uL (4.0-11.0)
[2017-11-13] MEDS ORDERED: FAMOTIDINE 20 MG/2 ML VIAL IVP ONE (21:00)
[2017-11-13] MEDS ORDERED: ONDANSETRON PF 4 MG/2 ML VIAL. IV ONE (21:00)
[2017-11-13 21:09] LABS: ALBUMIN 4.5 g/dL (3.4-5.0); CALCIUM 10.5 mg/dL (8.5-10.1); CREATININE 0.6 mg/dL (0.6-1.0); GFR 120.8; MAGNESIUM 1.9 mg/dL (1.8-2.4); TOTAL BILIRUBIN 0.5 mg/dL (0.2-1.0); TOTAL PROTEIN 8.8 g/dL (6.4-8.2)
[2017-11-13 21:10] LABS: POTASSIUM 2.8 mmol/L (3.5-5.1)
[2017-11-13] MEDS ORDERED: IV NORMAL SALINE 50ML 50 ML ONE (21:49)
[2017-11-13] MEDS ORDERED: PROMETHAZINE 25 MG/ML VIAL IV ONE (21:49)
[2017-11-13] MEDS ORDERED: METOCLOPRAMIDE HCL 10 MG/2 ML VIAL. IV ONE (22:00)
[2017-11-13] MEDS ORDERED: POTASSIUM CHLORIDE 10 MEQ TABLET.ER. PO ONE (22:00)
[2017-11-13] MEDS ORDERED: DICYCLOMINE 20 MG/2 ML AMPUL. IM ONE (22:30)
--- NOTE | 2017-11-13 22:54 | PHYS DOC ---
General Chief Complaint: NAUSEA/VOMITING/DIARRHEA Stated Complaint: ABDOMINAL PAIN Time Seen by MD: 20:20 Source: patient Problems: History of Present Illness Allergies: Coded Allergies: acetaminophen (Verified Allergy, Intermediate, HIVES, 10/14/17) "WHEN I HAD MY ANKLE BX THEY GAVE ME TYLENOL AND I GOT HIVES ON MY LEG." adhesive tape (Verified Allergy, Intermediate, 10/14/17) I S O L A T I O N *CONTACT* (Verified Allergy, Unknown, 10/14/17) +MRSA nares 05-15-17 Past Medical History Medical History: diabetes, other Surgical History: noncontributory Orders, Labs, Meds EKG: Sinus tachycardia 119 bpm, LVH with repolarization abnormality, no ST segment elevation. Interpreted by me 0003: Patient is requesting discharge. She is refusing to give a urine specimen. She took 30 mEq of potassium by mouth, she has not had any nausea or vomiting for the past 2 hours. Departure Time of Disposition: 00:04 Disposition: 01 HOME, SELF-CARE Diagnosis: vomiting, hypokalemia Condition: IMPROVED Patient Instructions: Hypokalemia-Brief, Nausea and Vomiting Additional Instructions: Aggressive hydration with Gatorade or water. Continue current medications. Abstain from illicit substances, seek medical assistance if necessary. Maintain consistent ADA diet. Prescription: Potassium chloride 20 mEq twice daily for the next 3 days. Follow-up with your doctor in 3 days for recheck Return to ED with new or changing symptoms. CEDRIC MELENDEZ DO Nov 13, 2017 22:54
[2017-11-14] MEDS ORDERED: POTA20TA82 PO (00:06)
[2017-11-14 00:16] VITALS: BP 137/101
--- NOTE | 2017-11-14 07:42 | EKG ---
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
--- NOTE | 2017-11-14 08:38 | RAD ---
Portable chest, 11/13/2017: History: Diabetic ketoacidosis Comparison is made to a study from 11/10/2017. The heart size and pulmonary vascularity are normal. The lungs are clear. There is no evidence of pleural fluid. IMPRESSION: No acute cardiopulmonary abnormality is detected.
== END 2017-11-14 00:16 | disposition home or self-care (01) ==
LOC: ER 20:14
DX: E87.6 Hypokalemia (principal); E11.10 Type 2 diabetes mellitus with ketoacidosis without coma; Z88.8 Allergy status to other drugs, medicaments and biological substances; Z88.6 Allergy status to analgesic agent; Z91.041 Radiographic dye allergy status
CPT/HCPCS: 36415; 71010; 80053; 82550; 83605; 83690; 83735; 84484; 85025; 93005; 96361; 96365; 96372; 96375; 99285; J0500; J2405; J2550; J2765; S0028; J7030

== ENCOUNTER 2017-11-14 22:05 | Inpatient (IN) | payer SELFPAY ==
[~2017-11-14] VITALS: Ht 170.2 cm; Wt 57.2 kg
[~2017-11-14 22:05] MED LIST changes: +POTA20TA82 PO
[2017-11-14] MEDS ORDERED: ONDANSETRON PF 4 MG/2 ML VIAL. ONE (22:24)
[2017-11-14] MEDS ORDERED: KETOROLAC 30 MG/ML VIAL. IV ONE (23:00)
[2017-11-14] MEDS ORDERED: ONDANSETRON PF 4 MG/2 ML VIAL. IV ONE (23:00)
[2017-11-14] MEDS ORDERED: IV NORMAL SALINE 1,000ML 1,000 ML IV ONE ×2 (23:00)
[2017-11-14 23:01] LABS: ALBUMIN 3.8 g/dL (3.4-5.0); ALBUMIN/GLOBULIN RATIO 1.1 (1.0-1.7); CALCIUM 9.1 mg/dL (8.5-10.1); CREATININE 0.8 mg/dL (0.6-1.0); GFR 86.7; TOTAL BILIRUBIN 0.8 mg/dL (0.2-1.0); TOTAL PROTEIN 7.3 g/dL (6.4-8.2)
[2017-11-14 23:10] LABS: POTASSIUM 5.5 mmol/L (3.5-5.1)
--- NOTE | 2017-11-14 23:22 | EKG ---
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
[2017-11-15] VITALS (16 sets, daily range): BP systolic 88–135; BP diastolic 48–91
[2017-11-15] MEDS ORDERED: METOCLOPRAMIDE HCL 10 MG/2 ML VIAL. IV ONE (01:30)
[2017-11-15] MEDS ORDERED: DEXTROSE 50% 25 GM / 50ML DISP.SYRIN. IV PRN (01:30)
[2017-11-15] MEDS ORDERED: ONDANSETRON PF 4 MG/2 ML VIAL. IV PRN (01:30)
[2017-11-15 02:44] LABS: BACTERIA,URINE 0 /HPF (0-FEW); BILIRUBIN,URINE NEG (NEG); CLARITY,URINE CLEAR; COLOR,URINE YELLOW; GLUCOSE,URINE 500 mg/dL (NEG); NITRITE,URINE NEG (NEG); RBC,URINE 0 /HPF (0-2); SQUAMOUS EPITHELIAL CELL,UR FEW /LPF; UROBILINOGEN,URINE 0.2 mg/dL (0.2 mg/dL); WBC,URINE OCC /HPF (0-4)
--- NOTE | 2017-11-15 02:54 | PHYS DOC ---
Past History Past Medical History: Anxiety, Diabetes Additional Past Medical Histor: pt reports several admissions for "high blood sugar" Past Surgical History: No Surgical History Smoking: Less than 1pk/day Alcohol Use: None Drug Use: Cocaine, Marijuana, Methamphetamine Adult General Chief Complaint Chief Complaint: HYPERGLYCEMIA HPI HPI Patient is a 27 year old female who presents with hyperglycemia. The patient has history of type 1 diabetes. Well known to this emergency department, history of noncompliance with insulin regimen, history of methamphetamine abuse. Reports nausea and vomiting today, complains of chest pain. Denies fevers or chills, cough, shortness of breath, abdominal pain, dysuria. Denies polyuria or polydipsia. Review of Systems Review of Systems Constitutional: Denies fever or chills Eyes: Denies change in visual acuity HENT: Denies nasal congestion or sore throat Respiratory: Denies cough or shortness of breath Cardiovascular: Reports chest pain, denies edema GI: Reports nausea and vomiting. Denies abdominal pain, bloody stools or diarrhea : Denies dysuria or hematuria Musculoskeletal: Denies back pain or joint pain Integument: Denies rash or skin lesions Neurologic: Denies headache, focal weakness or sensory changes All other systems were reviewed and found to be within normal limits, except as documented in this note. Current Medications Current Medications Current Medications Medications (Trade) Dose Ordered Sig/Chevy Start Time Stop Time Status Last Admin Dose Admin Ketorolac Tromethamine (Toradol) 30 mg 1X ONCE 11/14/17 23:00 11/14/17 23:01 DC 11/14/17 22:50 30 MG Ondansetron HCl (Zofran) 4 mg 1X ONCE 11/14/17 23:00 11/14/17 23:01 DC 11/14/17 22:51 4 MG Sodium Chloride 1,000 ml @ 1,000 mls/hr 1X ONCE 11/14/17 23:00 11/14/17 23:59 DC 11/15/17 01:24 1,000 MLS/HR Allergies Allergies Allergies Coded Allergies Type Severity Reaction Last Updated Verified acetaminophen Allergy Intermediate HIVES 10/14/17 Yes adhesive tape Allergy Intermediate 10/14/17 Yes I S O L A T I O N *CONTACT* Allergy Unknown 10/14/17 Yes Physical Exam Physical Exam Constitutional: Well developed, well nourished, no acute distress, non-toxic appearance. HENT: Normocephalic, atraumatic, bilateral external ears normal, oropharynx moist, no tonsillar enlargement or exudate, nose normal. Eyes: conjunctiva normal, no discharge. Neck: supple, no stridor. Cardiovascular: Tachycardic, regular, no murmurs, no edema. Lungs & Thorax: LCTAB, no wheezing, no respiratory distress. Abdomen: soft, nontender, nondistended. Skin: Warm, dry, no erythema, no rash. Back: No tenderness. Extremities: No tenderness, no edema. no calf tenderness or swelling. Neurologic: Alert and oriented X 3, no focal deficits noted. Psychologic: Affect normal, judgement normal, mood normal. Current Patient Data Lab Results Laboratory Tests Test 11/14/17 22:20 11/15/17 02:14 Sodium Level 129 mmol/L (136-145) L Potassium Level 5.5 mmol/L (3.5-5.1) H Chloride Level 93 mmol/L (98-107) L Carbon Dioxide Level 15 mmol/L (21-32) L Anion Gap 21 (6-14) H Blood Urea Nitrogen 17 mg/dL (7-20) Creatinine 0.8 mg/dL (0.6-1.0) Estimated GFR (Cockcroft-Gault) 86.7 BUN/Creatinine Ratio 21 (6-20) H Glucose Level 456 mg/dL (70-99) H Calcium Level 9.1 mg/dL (8.5-10.1) Total Bilirubin 0.8 mg/dL (0.2-1.0) Aspartate Amino Transferase (AST) 27 U/L (15-37) Alanine Aminotransferase (ALT) 35 U/L (14-59) Alkaline Phosphatase 89 U/L (46-116) Troponin I Quantitative < 0.017 ng/mL (0-0.055) Total Protein 7.3 g/dL (6.4-8.2) Albumin 3.8 g/dL (3.4-5.0) Albumin/Globulin Ratio 1.1 (1.0-1.7) Glucose (Fingerstick) 521 mg/dL (70-99) *H EKG EKG interpreted by me: 2210: sinus tachycardia rate 129, no acute ST/T wave changes, normal intervals, no ectopy.[] Radiology/Procedures Radiology/Procedures [] Course & Med Decision Making Course & Med Decision Making Pertinent Labs and Imaging studies reviewed. (See chart for details) The patient presents with hyperglycemia. She is tachycardic in 120s. Glucose 500s upon arrival. Gave 2L of normal saline. Obtained labs, EKG, CXR, UA. She has evidence of high anion gap acidosis with hyperglycemia, had not provided urine during ED visit, will obtain straight cath if unable to void. Recommended admission to the hospital for further evaluation & treatment. Discussed with Dr. Machado who agrees to admit to inpatient status, recommends med tele admission with IV fluids, q2 hour accuchecks, sliding scale insulin, rather than insulin drip. Will order repeat BMP prior to departure from the ED to ensure that anion gap & acidosis are improving rather than worsening. The patient is being admitted in stable condition. [] Dragon Disclaimer Dragon Disclaimer This electronic medical record was generated, in whole or in part, using a voice recognition dictation system. Departure Departure: Impression: Primary Impression: Diabetic ketoacidosis Additional Impression: Nausea and vomiting Disposition: ADMITTED INPATIENT Admitting Physician: Ramirez Machado Condition: STABLE Referrals: ESVIN ROLLINS (PCP) Problem Qualifiers YURI CONDE MD Nov 15, 2017 02:54
[2017-11-15 03:21] LABS: BASO % 0 % (0-3); EOS % 0 % (0-3); LYMPH # 1.2 x10^3/uL (1.0-4.8); LYMPH % 16 % (24-48); MEAN CORPUSCULAR HEMOGLOBIN 30 pg (25-35); MONO # 0.4 x10^3/uL (0.0-1.1); MONO % 5 % (0-9); NEUT % 79 % (31-73); PLATELET COUNT 337 x10^3/uL (140-400); RED CELL DISTRIBUTION WIDTH 16.4 % (11.5-14.5)
[2017-11-15 03:24] LABS: BARBITURATES NEG (NEG); BENZODIAZEPINES NEG (NEG); CANNABINOIDS NEG (NEG); COCAINE NEG (NEG); METHADONE NEG (NEG); OPIATES NEG (NEG); PHENCYCLIDINE NEG (NEG)
[2017-11-15 03:26] LABS: CALCIUM 8.8 mg/dL (8.5-10.1); CREATININE 1.1 mg/dL (0.6-1.0); POTASSIUM 5.5 mmol/L (3.5-5.1)
[2017-11-15 03:31] LABS: AMPHETAMINE/METHAMPHETAMINE POS (NEG)
[2017-11-15] MEDS: IV NORMAL SALINE 1,000ML 1,000 ML IV SCH ×4 (03:37→18:57)
[2017-11-15 03:38] LABS: HEMATOCRIT 41.5 % (36.0-47.0); HEMOGLOBIN 13.5 g/dL (12.0-15.5); MEAN CORPUSCULAR HGB CONC 33 g/dL (31-37); MEAN CORPUSCULAR VOLUME 91 fL (79-100); RED BLOOD COUNT 4.58 x10^6/uL (3.50-5.40)
[2017-11-15] MEDS ORDERED: 0.9 % SODIUM CHLORIDE 150ML 150 ML ONE (03:59)
[2017-11-15] MEDS ORDERED: INSULIN REGULAR 100 UNIT/ML 10ML VIAL. ONE (03:59)
[2017-11-15] MEDS ORDERED: INSULIN REGULAR 150 UNIT in 0.9 % SODIUM CHLORIDE 150ML 150 ML IV PRN (04:15)
[2017-11-15 05:06] LABS: CREATININE 1.1 mg/dL (0.6-1.0); POTASSIUM 4.7 mmol/L (3.5-5.1)
[2017-11-15 07:20] LABS: CALCIUM 7.5 mg/dL (8.5-10.1); POTASSIUM 3.7 mmol/L (3.5-5.1)
--- NOTE | 2017-11-15 07:39 | RAD ---
Portable chest, 11/14/2017: History: Chest pain, weakness Comparison is made to a study from 11/13/2017. The heart size and pulmonary vascularity are normal. No pulmonary infiltrates are seen. There is no evidence of pleural fluid or pneumothorax. A radiopaque foreign body overlying the right upper quadrant of the abdomen presumably lies on the surface of the patient. IMPRESSION: No acute cardiopulmonary abnormality is detected.
[2017-11-15] MEDS ORDERED: METOCLOPRAMIDE HCL 10 MG/2 ML VIAL. IV PRN (08:15)
[2017-11-15] MEDS ORDERED: KETOROLAC 30 MG/ML VIAL. IV PRN (08:15)
[2017-11-15] MEDS ORDERED: POTASSIUM CHLORIDE 20 MEQ TABLET.ER. PO ONE (08:30)
[2017-11-15] MEDS ORDERED: MAGNESIUM SULFATE 2GM 50 ML IV PRN (08:30)
[2017-11-15] MEDS ORDERED: METOCLOPRAMIDE 5 MG TABLET PO PRN (09:15)
[2017-11-15] MEDS ORDERED: ONDANSETRON ODT 4 MG TAB.RAPDIS PO PRN (09:15)
[2017-11-15] MEDS: POTASSIUM CL 40MEQ D5-0.45NACL 1,000 ML IV SCH ×2 (09:22→17:13)
--- NOTE | 2017-11-15 12:23 | HP ---
ADMIT DATE: 11/15/2017 REASON FOR ADMISSION: DKA. HISTORY OF PRESENT ILLNESS: This is a 27-year-old female with repeated episodes of admissions for DKA, the last one only a couple of days ago, but presented to the Emergency Room again with hyperglycemia, stomach pain and nausea. The patient reports continued use of methamphetamine, which she states the last was 5 days ago. PAST MEDICAL HISTORY: Longstanding type 1 diabetes, chronic hypomagnesemia, chronic hypokalemia, gastroparesis, former tobacco use disorder, methamphetamine abuse and adjustment disorder. MEDICATIONS: Reviewed and are available on the MAR. SOCIAL HISTORY: The patient lives with her mother. She is currently uninsured. She has been unable to get a job due to her frequent bouts of DKA. Denies tobacco use, but does admit to methamphetamine abuse. This is a longstanding problem that she denied for years, but has now admitted. REVIEW OF SYSTEMS: As per HPI. OBJECTIVE: VITAL SIGNS: Blood pressure 116/65, pulse 123, pulse ox 99% on room air, respirations 20. Height 67 inches, weight 126 pounds. GENERAL: A 27-year-old who is fatigued and tachycardic. HEENT: Her pupils are equal, round, reactive to light. Extraocular muscles are intact. Pupil size is large. NECK: Supple. LUNGS: Clear. CARDIOVASCULAR: Rapid rhythm and rate. ABDOMEN: Soft, mildly tender. Bowel sounds are positive. EXTREMITIES: Without edema. LABORATORY DATA: Initial glucose was 456. She was hydrated and then her sugar was 543 with CO2 of 7, potassium of 5.5, sodium 130, creatinine of 1.1. Troponin normal. CBC essentially normal. Urinalysis positive for ketones and glucose. Drug screen positive for methamphetamine. ASSESSMENT: 1. Diabetic ketoacidosis. 2. Hyponatremia. 3. Dehydration. 4. Positive drug screen for methamphetamine. 4. Gastroparesis. 5. Hyperkalemia, expected to correct itself. PLAN: DKA protocol. Counseled the patient regarding the need for rehab when she is well as attempts to place her from the hospital have not been successful. BARRY MORELAND DO DR: DONNA/regina JOB#: [id number] / [id number]
[2017-11-15 16:44] LABS: CALCIUM 7.8 mg/dL (8.5-10.1); CREATININE 0.8 mg/dL (0.6-1.0); GFR 86.7; POTASSIUM 4.3 mmol/L (3.5-5.1)
[2017-11-15] MEDS: INSULIN DETEMIR 300 UNITS/3 ML INSULN.PEN. SQ SCH (21:19)
[2017-11-15] MEDS: INSULIN ASPART 300 UNITS/3 ML INSULN.PEN SQ SCH (21:20)
[2017-11-16] MEDS: INSULIN ASPART 300 UNITS/3 ML INSULN.PEN SQ SCH ×3 (00:19→08:24)
[2017-11-16] MEDS: IV NORMAL SALINE 1,000ML 1,000 ML IV SCH ×2 (02:07→07:05)
[2017-11-16 02:58] VITALS: BP 109/73
[2017-11-16 04:59] VITALS: BP 118/82
[2017-11-16 06:16] LABS: BASO % 1 % (0-3); EOS # 0.1 x10^3/uL (0.0-0.7); EOS % 2 % (0-3); HEMATOCRIT 29.6 % (36.0-47.0); HEMOGLOBIN 10.1 g/dL (12.0-15.5); LYMPH # 2.6 x10^3/uL (1.0-4.8); LYMPH % 43 % (24-48); MEAN CORPUSCULAR HEMOGLOBIN 30 pg (25-35); MEAN CORPUSCULAR HGB CONC 34 g/dL (31-37); MEAN CORPUSCULAR VOLUME 88 fL (79-100); MONO # 0.5 x10^3/uL (0.0-1.1); MONO % 8 % (0-9); NEUT # 2.9 x10^3uL (1.8-7.7); NEUT % 47 % (31-73); PLATELET COUNT 264 x10^3/uL (140-400); RED BLOOD COUNT 3.37 x10^6/uL (3.50-5.40); WHITE BLOOD COUNT 6.1 x10^3/uL (4.0-11.0)
[2017-11-16 06:18] LABS: CALCIUM 7.9 mg/dL (8.5-10.1); CREATININE 0.6 mg/dL (0.6-1.0); GFR 120.8; POTASSIUM 3.6 mmol/L (3.5-5.1)
[2017-11-16] MEDS ORDERED: ONDANSETRON ODT 4 MG TAB.RAPDIS PO PRN (07:00)
[2017-11-16] MEDS: INSULIN DETEMIR 300 UNITS/3 ML INSULN.PEN. SQ SCH (08:23)
[2017-11-16] MEDS ORDERED: FAMOTIDINE 20 MG TABLET PO SCH (09:00)
[2017-11-16] MEDS ORDERED: MAGNESIUM OXIDE 400 MG TABLET PO SCH (09:00)
[2017-11-16] MEDS ORDERED: METOCLOPRAMIDE 10 MG TABLET PO SCH (09:00)
[2017-11-16] MEDS ORDERED: POTASSIUM CHLORIDE 20 MEQ TABLET.ER. PO SCH (09:00)
--- NOTE | 2017-11-16 13:09 | PDOC3 ---
Discharge Summary Visit Information Date of Admission: Nov 15, 2017 Date of Discharge: Nov 16, 2017 Final Diagnosis Problems Medical Problems: (1) Diabetic ketoacidosis Status: Acute (2) Nausea and vomiting Status: Acute 2. Hyponatremia. 3. Dehydration. 4. Positive drug screen for methamphetamine. 4. Gastroparesis. 5. Hyperkalemia, RESOLVED Problems: Brief Hospital Course Allergies Allergies Coded Allergies Type Severity Reaction Last Updated Verified acetaminophen Allergy Intermediate HIVES 10/14/17 Yes adhesive tape Allergy Intermediate 10/14/17 Yes Vital Signs Vital Signs Date Time Temp Pulse Resp B/P (MAP) Pulse Ox O2 Delivery O2 Flow Rate FiO2 11/16/17 08:30 Room Air 11/16/17 06:00 97.8 11/16/17 04:59 80 12 118/82 (94) 11/16/17 00:11 99 Lab Results Laboratory Tests Test 11/14/17 22:20 11/15/17 02:10 11/15/17 02:14 11/15/17 02:35 Sodium Level 129 mmol/L (136-145) Potassium Level 5.5 mmol/L (3.5-5.1) Chloride Level 93 mmol/L (98-107) Carbon Dioxide Level 15 mmol/L (21-32) Anion Gap 21 (6-14) Blood Urea Nitrogen 17 mg/dL (7-20) Creatinine 0.8 mg/dL (0.6-1.0) Estimated GFR (Cockcroft-Gault) 86.7 BUN/Creatinine Ratio 21 (6-20) Glucose Level 456 mg/dL (70-99) Calcium Level 9.1 mg/dL (8.5-10.1) Total Bilirubin 0.8 mg/dL (0.2-1.0) Aspartate Amino Transf (AST/SGOT) 27 U/L (15-37) Alanine Aminotransferase (ALT/SGPT) 35 U/L (14-59) Alkaline Phosphatase 89 U/L (46-116) Troponin I Quantitative < 0.017 ng/mL (0-0.055) Total Protein 7.3 g/dL (6.4-8.2) Albumin 3.8 g/dL (3.4-5.0) Albumin/Globulin Ratio 1.1 (1.0-1.7) Urine Collection Type Unknown Urine Color Yellow Urine Clarity Clear Urine pH 5.0 Urine Specific [place] 1.015 Urine Protein Neg (NEG-TRACE) Urine Glucose (UA) 500 mg/dL (NEG) Urine Ketones (Stick) >=160 mg/dL (NEG) Urine Blood Neg (NEG) Urine Nitrite Neg (NEG) Urine Bilirubin Neg (NEG) Urine Urobilinogen Dipstick 0.2 mg/dL (0.2 mg/dL) Urine Leukocyte Esterase Neg (NEG) Urine RBC 0 /HPF (0-2) Urine WBC Occ /HPF (0-4) Urine Squamous Epithelial Cells Few /LPF Urine Bacteria 0 /HPF (0-FEW) Urine Opiates Screen Neg (NEG) Urine Methadone Screen Neg (NEG) Urine Barbiturates Neg (NEG) Urine Phencyclidine Screen Neg (NEG) Urine Amphetamine/Methamphetamine Pos (NEG) Urine Benzodiazepines Screen Neg (NEG) Urine Cocaine Screen Neg (NEG) Urine Cannabinoids Screen Neg (NEG) Urine Ethyl Alcohol Neg (NEG) Glucose (Fingerstick) 521 mg/dL (70-99) Nasal Screen MRSA (PCR) Negative (Negative) Test 11/15/17 02:50 11/15/17 02:53 11/15/17 04:45 11/15/17 05:22 White Blood Count 8.0 x10^3/uL (4.0-11.0) Red Blood Count 4.58 x10^6/uL (3.50-5.40) Hemoglobin 13.5 g/dL (12.0-15.5) Hematocrit 41.5 % (36.0-47.0) Mean Corpuscular Volume 91 fL (79-100) Mean Corpuscular Hemoglobin 30 pg (25-35) Mean Corpuscular Hemoglobin Concent 33 g/dL (31-37) Red Cell Distribution Width 16.4 % (11.5-14.5) Platelet Count 337 x10^3/uL (140-400) Neutrophils (%) (Auto) 79 % (31-73) Lymphocytes (%) (Auto) 16 % (24-48) Monocytes (%) (Auto) 5 % (0-9) Eosinophils (%) (Auto) 0 % (0-3) Basophils (%) (Auto) 0 % (0-3) Neutrophils # (Auto) 6.0 x10^3uL (1.8-7.7) Lymphocytes # (Auto) 1.2 x10^3/uL (1.0-4.8) Monocytes # (Auto) 0.4 x10^3/uL (0.0-1.1) Eosinophils # (Auto) 0.0 x10^3/uL (0.0-0.7) Basophils # (Auto) 0.0 x10^3/uL (0.0-0.2) Sodium Level 130 mmol/L (136-145) 133 mmol/L (136-145) Potassium Level 5.5 mmol/L (3.5-5.1) 4.7 mmol/L (3.5-5.1) Chloride Level 95 mmol/L (98-107) 99 mmol/L (98-107) Carbon Dioxide Level 7 mmol/L (21-32) 7 mmol/L (21-32) Anion Gap 28 (6-14) 27 (6-14) Blood Urea Nitrogen 23 mg/dL (7-20) 21 mg/dL (7-20) Creatinine 1.1 mg/dL (0.6-1.0) 1.1 mg/dL (0.6-1.0) Estimated GFR (Cockcroft-Gault) 60.0 60.0 Glucose Level 543 mg/dL (70-99) 428 mg/dL (70-99) Calcium Level 8.8 mg/dL (8.5-10.1) 8.0 mg/dL (8.5-10.1) Glucose (Fingerstick) 537 mg/dL (70-99) 298 mg/dL (70-99) Test 11/15/17 06:19 11/15/17 06:29 11/15/17 07:25 11/15/17 08:23 Sodium Level 132 mmol/L (136-145) Potassium Level 3.7 mmol/L (3.5-5.1) Chloride Level 101 mmol/L (98-107) Carbon Dioxide Level 7 mmol/L (21-32) Anion Gap 24 (6-14) Blood Urea Nitrogen 19 mg/dL (7-20) Creatinine 1.0 mg/dL (0.6-1.0) Estimated GFR (Cockcroft-Gault) 67.0 Glucose Level 251 mg/dL (70-99) Calcium Level 7.5 mg/dL (8.5-10.1) Magnesium Level 1.9 mg/dL (1.8-2.4) Glucose (Fingerstick) 219 mg/dL (70-99) 211 mg/dL (70-99) 200 mg/dL (70-99) Test 11/15/17 09:32 11/15/17 10:31 11/15/17 11:29 11/15/17 12:52 Glucose (Fingerstick) 184 mg/dL (70-99) 129 mg/dL (70-99) 70 mg/dL (70-99) 103 mg/dL (70-99) Test 11/15/17 13:48 11/15/17 14:55 11/15/17 15:58 11/15/17 16:15 Glucose (Fingerstick) 186 mg/dL (70-99) 174 mg/dL (70-99) 140 mg/dL (70-99) Sodium Level 134 mmol/L (136-145) Potassium Level 4.3 mmol/L (3.5-5.1) Chloride Level 106 mmol/L (98-107) Carbon Dioxide Level 19 mmol/L (21-32) Anion Gap 9 (6-14) Blood Urea Nitrogen 11 mg/dL (7-20) Creatinine 0.8 mg/dL (0.6-1.0) Estimated GFR (Cockcroft-Gault) 86.7 Glucose Level 164 mg/dL (70-99) Calcium Level 7.8 mg/dL (8.5-10.1) Test 11/15/17 17:03 11/15/17 18:14 11/15/17 18:45 11/15/17 20:54 Glucose (Fingerstick) 193 mg/dL (70-99) 178 mg/dL (70-99) 148 mg/dL (70-99) 339 mg/dL (70-99) Test 11/16/17 00:10 11/16/17 02:03 11/16/17 03:57 11/16/17 05:43 Glucose (Fingerstick) 335 mg/dL (70-99) 174 mg/dL (70-99) 225 mg/dL (70-99) White Blood Count 6.1 x10^3/uL (4.0-11.0) Red Blood Count 3.37 x10^6/uL (3.50-5.40) Hemoglobin 10.1 g/dL (12.0-15.5) Hematocrit 29.6 % (36.0-47.0) Mean Corpuscular Volume 88 fL (79-100) Mean Corpuscular Hemoglobin 30 pg (25-35) Mean Corpuscular Hemoglobin Concent 34 g/dL (31-37) Red Cell Distribution Width 15.0 % (11.5-14.5) Platelet Count 264 x10^3/uL (140-400) Neutrophils (%) (Auto) 47 % (31-73) Lymphocytes (%) (Auto) 43 % (24-48) Monocytes (%) (Auto) 8 % (0-9) Eosinophils (%) (Auto) 2 % (0-3) Basophils (%) (Auto) 1 % (0-3) Neutrophils # (Auto) 2.9 x10^3uL (1.8-7.7) Lymphocytes # (Auto) 2.6 x10^3/uL (1.0-4.8) Monocytes # (Auto) 0.5 x10^3/uL (0.0-1.1) Eosinophils # (Auto) 0.1 x10^3/uL (0.0-0.7) Basophils # (Auto) 0.0 x10^3/uL (0.0-0.2) Sodium Level 139 mmol/L (136-145) Potassium Level 3.6 mmol/L (3.5-5.1) Chloride Level 108 mmol/L (98-107) Carbon Dioxide Level 25 mmol/L (21-32) Anion Gap 6 (6-14) Blood Urea Nitrogen 7 mg/dL (7-20) Creatinine 0.6 mg/dL (0.6-1.0) Estimated GFR (Cockcroft-Gault) 120.8 Glucose Level 235 mg/dL (70-99) Calcium Level 7.9 mg/dL (8.5-10.1) Magnesium Level 1.5 mg/dL (1.8-2.4) Test 11/16/17 05:53 11/16/17 07:57 Glucose (Fingerstick) 209 mg/dL (70-99) 252 mg/dL (70-99) Brief Hospital Course Ms. Leary is a 27 old [sex] who presented with [ ] HISTORY OF PRESENT ILLNESS: This is a 27-year-old female with repeated episodes of admissions for DKA, the last one only a couple of days ago, but presented to the Emergency Room again with hyperglycemia, stomach pain and nausea. The patient reports continued use of methamphetamine, which she states the last was 5 days ago.TREATED ACCORDING TO THE DKA PROTOCOL AND HYDRATED. COUNSELED ABOUT HER METH USE Discharge Information Condition at Discharge: Improved Disposition/Orders: D/C to Home Dischare Medications Current Medications Ondansetron HCl (Zofran) 4 mg STK-MED ONCE .ROUTE ; Start 11/14/17 at 22:24; Stop 11/14/17 at 22:25; Status DC Sodium Chloride 1,000 ml @ 1,000 mls/hr 1X ONCE IV Last administered on 11/14 22:50; Start 11/14/17 at 23:00; Stop 11/14/17 at 23:59; Status DC Ketorolac Tromethamine (Toradol) 30 mg 1X ONCE IV Last administered on 22:50; Start 11/14/17 at 23:00; Stop 11/14/17 at 23:01; Status DC Ondansetron HCl (Zofran) 4 mg 1X ONCE IV Last administered on 11/14/17 22:51 ; Start 11/14/17 at 23:00; Stop 11/14/17 at 23:01; Status DC Sodium Chloride 1,000 ml @ 1,000 mls/hr 1X ONCE IV Last administered on 11/15 01:24; Start 11/14/17 at 23:00; Stop 11/14/17 at 23:59; Status DC Fentanyl Citrate (Fentanyl 2ml Vial) 100 mcg STK-MED ONCE .ROUTE ; Start at 01:22; Stop 11/15/17 at 01:23; Status DC Metoclopramide HCl (Reglan Vial) 10 mg 1X ONCE IV Last administered on 01:33; Start 11/15/17 at 01:30; Stop 11/15/17 at 01:37; Status DC Fentanyl Citrate (Fentanyl 2ml Vial) 50 mcg PRN Q15MIN PRN IV PAIN GREATER THAN 3/10 Last administered on 11/15/17 01:28; Start 11/15/17 at 01:30; Stop 11/15/17 at 08:08; Status DC Ondansetron HCl (Zofran) 4 mg PRN Q4HRS PRN IV NAUSEA/VOMITING; Start at 01:30; Stop 11/15/17 at 09:05; Status DC Sodium Chloride 1,000 ml @ 125 mls/hr Q8H IV Last administered on 11/15/17 06:14; Start 11/15/17 at 01:25; Stop 11/15/17 at 18:05; Status DC Insulin Aspart (NovoLOG) 0-9 UNITS PRN Q2HR SQ Last administered on 08:24; Start 11/15/17 at 01:30; Stop 11/16/17 at 09:31; Status DC Dextrose 12.5 gm PRN Q15MIN PRN IV SEE COMMENTS; Start 11/15/17 at 01:30; Stop 11/16/17 at 09:31; Status DC Insulin Human Regular (NovoLIN R) 100 unit STK-MED ONCE .ROUTE ; Start at 03:59; Stop 11/15/17 at 04:00; Status DC Sodium Chloride 150 ml @ As Directed STK-MED ONCE .ROUTE ; Start 11/15/17 at 03:59; Stop 11/15/17 at 04:00; Status DC Insulin Human Regular 150 unit/ Sodium Chloride 151.5 ml @ 0 mls/hr CONT PRN PRN IV PER PROTOCOL Last administered on 11/15/17 04:20; Start 11/15/17 at 04 :15; Stop 11/15/17 at 23:20; Status DC Potassium Chloride/Dextrose/ Sod Cl 1,000 ml @ 150 mls/hr Q6H40M IV Last administered on 11/15/17 09:22; Start 11/15/17 at 08:15; Stop 11/15/17 at 18 :15; Status DC Potassium Chloride (Klor-Con) 40 meq 1X ONCE PO Last administered on 09:21; Start 11/15/17 at 08:30; Stop 11/15/17 at 08:31; Status DC Magnesium Sulfate 50 ml @ 25 mls/hr 1X PRN PRN IV SEE COMMENTS; Start at 08:30; Stop 11/16/17 at 09:31; Status DC Ketorolac Tromethamine (Toradol) 30 mg PRN Q6HRS PRN IV PAIN; Start 11/15/17 at 08:15; Stop 11/16/17 at 09:31; Status DC Metoclopramide HCl (Reglan Vial) 10 mg PRN Q6HRS PRN IV NAUSEA/VOMITING; Start 11/15/17 at 08:15; Stop 11/15/17 at 09:05; Status DC Ondansetron HCl (Zofran Odt) 4 mg PRN Q6HRS PRN PO NAUSEA/VOMITING; Start at 09:15; Stop 11/16/17 at 09:31; Status DC Metoclopramide HCl (Reglan) 5 mg PRN BFRMEALHC PRN PO NAUSEA/VOMITING Last administered on 11/15/17 17:13; Start 11/15/17 at 09:15; Stop 11/16/17 at 09 :31; Status DC Sodium Chloride 1,000 ml @ 150 mls/hr Q6H40M IV Last administered on 02:07; Start 11/15/17 at 17:45; Stop 11/16/17 at 09:31; Status DC Insulin Detemir (Levemir) 15 units BID SQ Last administered on 11/16/17 08:23 ; Start 11/15/17 at 21:00; Stop 11/16/17 at 09:31; Status DC Metoclopramide HCl (Reglan) 10 mg QID PO Last administered on 11/16/17 08:21 ; Start 11/16/17 at 09:00; Stop 11/16/17 at 09:31; Status DC Ondansetron HCl (Zofran Odt) 4 mg PRN Q8HRS PRN PO NAUSEA; Start 11/16/17 at 07:00; Stop 11/16/17 at 09:31; Status DC Magnesium Oxide (Magnesium Oxide) 400 mg DAILY PO Last administered on 08:21; Start 11/16/17 at 09:00; Stop 11/16/17 at 09:31; Status DC Potassium Chloride (Klor-Con) 20 meq BID PO Last administered on 11/16/17 08: 21; Start 11/16/17 at 09:00; Stop 11/16/17 at 09:31; Status DC Famotidine (Pepcid) 20 mg BID PO Last administered on 11/16/17t 08:21; Start 11/16/17 at 09:00; Stop 11/16/17 at 09:31; Status DC Active Scripts Active Potassium Chloride 20 Meq Tablet.er 20 Meq PO BID 3 Days Zantac (Ranitidine Hcl) 150 Mg Tablet 1 Tab PO BID Zofran Odt (Ondansetron) 8 Mg Tab.rapdis 8 Mg PO QIDPRN Zofran Odt (Ondansetron) 4 Mg Tab.rapdis 1 Tab SL Q8HRS Magnesium (Magnesium Oxide) 400 Mg Capsule 1 Cap PO DAILY Reglan (Metoclopramide Hcl) 10 Mg Tablet 1 Tab PO QID Novolog Flexpen (Insulin Aspart) 100 Unit/1 Ml Insuln.pen 0-9 Unit SQ ACHS FOLLOW SUPPLEMENTAL SCALE GIVEN TO YOU Reported Levemir (Insulin Detemir) 100 Unit/1 Ml Vial 15 Unit SQ BID resume tonight at bedtime last dose this morning BARRY MORELAND DO Nov 16, 2017 13:09
[2017-11-17] MEDS ORDERED: ONDA4TAB11 PO (12:29)
== END 2017-11-16 09:15 | disposition home or self-care (01) | DRG 638 ==
LOC: ER 22:05 → ICU 11-15 01:11
PROVIDERS: ADMIT Family Medicine; ATTEND Family Medicine
DX: E10.10 Type 1 diabetes mellitus with ketoacidosis without coma (principal); E87.1 Hypo-osmolality and hyponatremia; K31.84 Gastroparesis; E10.43 Type 1 diabetes mellitus with diabetic autonomic (poly)neuropathy; E87.5 Hyperkalemia; E86.0 Dehydration; F15.10 Other stimulant abuse, uncomplicated; Z79.4 Long term (current) use of insulin; F12.90 Cannabis use, unspecified, uncomplicated; F14.90 Cocaine use, unspecified, uncomplicated; F41.9 Anxiety disorder, unspecified; F43.20 Adjustment disorder, unspecified; Z91.19 Patient's noncompliance with other medical treatment and regimen; Z88.8 Allergy status to other drugs, medicaments and biological substances; Z71.51 Drug abuse counseling and surveillance of drug abuser
CPT/HCPCS: 36415; 71010; 80048; 80053; 80307; 81001; 82947; 83735; 84484; 85025; 87641; 93005; 96361; 96374; 96375; J1815; J1885; J2405; J2765; J3010; J7042; J8597; 99285-25; G0479; J7030

== ENCOUNTER 2017-11-17 09:01 | Emergency (ER) | payer SELFPAY ==
--- NOTE | 2017-11-17 09:38 | PHYS DOC ---
Past History Past Medical History: Anxiety, Diabetes Additional Past Medical Histor: pt reports several admissions for "high blood sugar" Past Surgical History: No Surgical History Smoking: Less than 1pk/day Alcohol Use: None Drug Use: Cocaine, Marijuana, Methamphetamine Adult General Chief Complaint Chief Complaint: BLOOD SUGAR PROBLEM HPI HPI Patient is a 27-year-old female who presents with the complaints of vomiting and high blood sugars. Patient has been to the ER multiple times this month for similar complaints. She has not follow with regarding this visit. Review of Systems Review of Systems Constitutional: Denies fever or chills [] HENT: Denies nasal congestion or sore throat [] Respiratory: Denies cough or shortness of breath [] Cardiovascular: No chest pain GI: Denies bloody stools or diarrhea. Yes to vomiting and nausea, just abdominal discomfort when vomiting : Denies dysuria or hematuria or vaginal discharge Musculoskeletal: Denies back pain or joint pain [] Integument: Denies rash or skin lesions [] Neurologic: Denies headache, focal weakness or sensory changes [] All other systems were reviewed and found to be within normal limits, except as documented in this note. Current Medications Current Medications Current Medications Medications (Trade) Dose Ordered Sig/Chevy Start Time Stop Time Status Last Admin Dose Admin Ondansetron HCl (Zofran) 4 mg 1X ONCE 11/17/17 09:45 11/17/17 09:46 UNV Sodium Chloride 1,000 ml @ 1,000 mls/hr 1X ONCE 11/17/17 09:45 11/17/17 10:44 UNV Allergies Allergies Allergies Coded Allergies Type Severity Reaction Last Updated Verified acetaminophen Allergy Intermediate HIVES 10/14/17 Yes adhesive tape Allergy Intermediate 10/14/17 Yes Physical Exam Physical Exam Constitutional: Well developed, well nourished, no acute distress, non-toxic appearance. [] HENT: Normocephalic, atraumatic, bilateral external ears normal, oropharynx dry , no oral exudates, nose normal. [] Eyes: EOMI, conjunctiva normal, no discharge. [] Neck: Normal range of motion, trachea midline, supple, no stridor. No LAD, no meningeal signs Cardiovascular:Heart rate regular rhythm, no murmur, equal pulses, normal perfusion Lungs & Thorax: Bilateral breath sounds clear to auscultation, no tachypnea Abdomen: Bowel sounds normal, soft, no tenderness, no masses, no pulsatile masses. [] Skin: Warm, dry, no erythema, no rash. [] Back: No tenderness, no CVA tenderness. [] Extremities: No tenderness, no DVT, ROM intact, no edema. [] Neurologic: Alert and oriented X 3, normal motor function,, no focal deficits noted. [] Psychologic: Affect normal, judgement normal, mood normal. [] Current Patient Data Vital Signs Vital Signs Date Time Temp Pulse Resp B/P (MAP) Pulse Ox O2 Delivery O2 Flow Rate FiO2 11/17/17 09:17 98.0 77 20 98 Room Air Lab Results Laboratory Tests Test 11/17/17 09:11 Glucose (Fingerstick) 479 mg/dL (70-99) H EKG EKG [] Radiology/Procedures Radiology/Procedures [] Course & Med Decision Making Course & Med Decision Making Pertinent Labs and Imaging studies reviewed. (See chart for details) 1130 pt resting comfortably in nad, no vomiting 1230 pt still in nad, no vomiting, BS 262 [] Dragon Disclaimer Dragon Disclaimer This electronic medical record was generated, in whole or in part, using a voice recognition dictation system. Departure Departure: Impression: Primary Impression: Hyperglycemia Additional Impression: Dehydration Disposition: 01 HOME, SELF-CARE Condition: IMPROVED Referrals: ESVIN ROLLINS (PCP) Please follow with your doctor for recheck and reevaluation in one to 2 days, please discussed with your doctor possible need for adjustment of diabetes insulin regimen Patient Instructions: Dehydration, Adult, Hyperglycemia Scripts Ondansetron Hcl (ONDANSETRON HCL) 4 Mg Tablet 4 MG PO TID for 3 Days, #9 TAB Prov: Lebron MARTIN MD 11/17/17 Problem Qualifiers Lebron MARTIN MD Nov 17, 2017 09:38
[2017-11-17] MEDS ORDERED: IV NORMAL SALINE 1,000ML 1,000 ML IV ONE ×2 (09:45→11:15)
[2017-11-17] MEDS ORDERED: ONDANSETRON PF 4 MG/2 ML VIAL. IV ONE (10:00)
[2017-11-17 10:08] LABS: HEMOGLOBIN ISTAT 11.9 gm/dL; POTASSIUM ISTAT 4.5 mmol/L (3.5-5.0)
[2017-11-17 10:26] LABS: AMPHETAMINE/METHAMPHETAMINE NEG (NEG); BARBITURATES NEG (NEG); BENZODIAZEPINES NEG (NEG); CANNABINOIDS NEG (NEG); COCAINE NEG (NEG); METHADONE NEG (NEG); OPIATES NEG (NEG); PHENCYCLIDINE NEG (NEG)
[2017-11-17] MEDS ORDERED: INSULIN REGULAR 100 UNIT/ML 10ML VIAL. IV ONE ×2 (10:30→11:30)
[2017-11-17 10:31] LABS: BILIRUBIN,URINE NEG (NEG); CLARITY,URINE CLEAR; COLOR,URINE STRAW; GLUCOSE,URINE >=1000 mg/dL (NEG)
[2017-11-17 10:32] LABS: BACTERIA,URINE 0 /HPF (0-FEW); NITRITE,URINE NEG (NEG); RBC,URINE 0 /HPF (0-2); SQUAMOUS EPITHELIAL CELL,UR MOD /LPF; UROBILINOGEN,URINE 0.2 mg/dL (0.2 mg/dL); WBC,URINE RARE /HPF (0-4)
[2017-11-17] MEDS ORDERED: ONDA4TAB11 PO (12:29)
[2017-11-17 12:40] VITALS: BP 142/89
== END 2017-11-17 12:43 | disposition home or self-care (01) ==
LOC: ER 09:01
DX: E11.65 Type 2 diabetes mellitus with hyperglycemia (principal); E86.0 Dehydration; F41.9 Anxiety disorder, unspecified; F17.200 Nicotine dependence, unspecified, uncomplicated; F12.10 Cannabis abuse, uncomplicated; F15.10 Other stimulant abuse, uncomplicated; F14.10 Cocaine abuse, uncomplicated; Z88.8 Allergy status to other drugs, medicaments and biological substances
CPT/HCPCS: 36415; 80047; 80307; 81001; 81025; 82947; 96361; 96374; 96375; 96376; 99284; J1815; J2405; G0479; J7030

== ENCOUNTER 2017-11-17 19:45 | Inpatient (IN) | payer SELFPAY ==
[~2017-11-17] VITALS: Ht 170.2 cm; Wt 61.2 kg
[~2017-11-17 19:45] MED LIST changes: +ONDA4TAB11 PO
--- NOTE | 2017-11-17 19:55 | PHYS DOC ---
Past History Past Medical History: Anxiety, Diabetes Additional Past Medical Histor: pt reports several admissions for "high blood sugar" Past Surgical History: No Surgical History Smoking: Less than 1pk/day Alcohol Use: None Drug Use: Cocaine, Marijuana, Methamphetamine Adult General Chief Complaint Chief Complaint: HYPERGLYCEMIA HPI HPI Patient is a 27 year old F who presents with elevated blood sugars. Patient is well-known noncompliant uncontrolled diabetic who was seen this morning for hyperglycemia and discharged. Patient returned to the emergency room via EMS secondary to elevated blood sugars. EMS had readings on their machine that stated high. Patient complains of nausea/vomiting/abdominal pain. Patient states she did take her insulin today. Patient denies any fevers. Patient has no other complaints. Review of Systems Review of Systems GEN: Denies fevers, chills, sweats HEENT: Denies blurred vision, sore throat CV: Denies chest pain RESP: Denies shortness of air, cough GI: Abdominal pain with nausea and vomiting NEURO: Denies confusion, dizziness MSK: Denies weakness, joint pain/swelling All other systems were reviewed and found to be within normal limits, except as documented in this note. Allergies Allergies Allergies Coded Allergies Type Severity Reaction Last Updated Verified acetaminophen Allergy Intermediate HIVES 10/14/17 Yes adhesive tape Allergy Intermediate 10/14/17 Yes Physical Exam Physical Exam GEN.: Moderate distress. Alert and oriented. HEENT: Head is normocephalic, atraumatic NECK: Supple. LUNGS: CTAB. HEART: RRR, S1, S2 present. Peripheral pulses intact ABDOMEN: Soft, mild generalized abdominal tenderness, no rebound tenderness, no Wolfe, no abdominal distention. Positive bowel sounds. EXTREMITIES: Without any cyanosis. NEUROLOGIC: Normal speech, normal tone PSYCHIATRIC: Normal affect, normal mood. SKIN: No ulcerations EKG EKG [] Radiology/Procedures Radiology/Procedures Critical care time was 35 minutes exclusive of procedures.[] Course & Med Decision Making Course & Med Decision Making Pertinent Labs and Imaging studies reviewed. (See chart for details) ED course: Patient was seen and examined emergency room basic blood work was ordered along with 2 L normal saline bedside Accu-Chek shows a blood sugar 461 Discussed lab results the patient who is in mild DKA therefore will admit for further evaluation and management Discussed CC/HP/PMH with Dr. Machado and recommends not admitting and given the patient 2 L normal saline and then recheck and a BMP and if her CO2 is 20 or greater he would like to discharge her home. Repeat BMP shows anion gap of 21 with a CO2 of 14 and a blood glucose of 419 2255: Discussed CC/HP/PMH with Dr. Machado and recommends admit and insulin drip MDM: After reviewing the chart, CC/HPI/PMH, physical exam, [lab results], the patient is in mild DKA therefore will admit the patient on insulin drip for further evaluation and management. [] Dragon Disclaimer Dragon Disclaimer This electronic medical record was generated, in whole or in part, using a voice recognition dictation system. Departure Departure: Impression: Primary Impression: Hyperglycemia Additional Impression: DKA (diabetic ketoacidoses) Disposition: 09 ADMITTED INPATIENT Admitting Physician: Ramirez Machado Condition: GUARDED Referrals: ESVIN ROLLINS (PCP) Problem Qualifiers SABINE GENAO DO Nov 17, 2017 19:55
[2017-11-17] MEDS ORDERED: IV NORMAL SALINE 1,000ML 1,000 ML IV ONE ×2 (20:00)
[2017-11-17] MEDS ORDERED: ONDANSETRON PF 4 MG/2 ML VIAL. IV ONE (20:15)
[2017-11-17 20:27] LABS: BASO # 0.1 x10^3/uL (0.0-0.2); BASO % 1 % (0-3); EOS % 1 % (0-3); HEMATOCRIT 39.1 % (36.0-47.0); LYMPH # 2.1 x10^3/uL (1.0-4.8); LYMPH % 27 % (24-48); MEAN CORPUSCULAR HEMOGLOBIN 30 pg (25-35); MEAN CORPUSCULAR HGB CONC 33 g/dL (31-37); MEAN CORPUSCULAR VOLUME 90 fL (79-100); MONO # 0.5 x10^3/uL (0.0-1.1); MONO % 6 % (0-9); NEUT # 5.1 x10^3uL (1.8-7.7); NEUT % 66 % (31-73); PLATELET COUNT 351 x10^3/uL (140-400); RED BLOOD COUNT 4.38 x10^6/uL (3.50-5.40); RED CELL DISTRIBUTION WIDTH 14.9 % (11.5-14.5); WHITE BLOOD COUNT 7.8 x10^3/uL (4.0-11.0)
[2017-11-17 20:33] LABS: ALBUMIN 3.9 g/dL (3.4-5.0); CREATININE 0.8 mg/dL (0.6-1.0); GFR 86.7; TOTAL BILIRUBIN 0.9 mg/dL (0.2-1.0)
[2017-11-17 20:38] LABS: BACTERIA,URINE 0 /HPF (0-FEW); BILIRUBIN,URINE NEG (NEG); CLARITY,URINE HAZY; COLOR,URINE STRAW; GLUCOSE,URINE 500 mg/dL (NEG); NITRITE,URINE NEG (NEG); RBC,URINE 0 /HPF (0-2); SQUAMOUS EPITHELIAL CELL,UR MOD /LPF; UROBILINOGEN,URINE 0.2 mg/dL (0.2 mg/dL); WBC,URINE OCC /HPF (0-4)
[2017-11-17] MEDS ORDERED: HALOPERIDOL LACT 5 MG/ML VIAL. IM ONE (20:45)
[2017-11-17] MEDS ORDERED: METOCLOPRAMIDE HCL 10 MG/2 ML VIAL. IV ONE (21:00)
[2017-11-17 22:38] LABS: CALCIUM 7.8 mg/dL (8.5-10.1); CREATININE 0.7 mg/dL (0.6-1.0); GFR 101.1
[2017-11-17] MEDS ORDERED: 0.9 % SODIUM CHLORIDE 150ML 150 ML ONE (23:18)
[2017-11-17] MEDS ORDERED: INSULIN REGULAR 150 UNIT in 0.9 % SODIUM CHLORIDE 150ML 150 ML IV PRN (23:30)
[2017-11-17] MEDS ORDERED: ONDANSETRON PF 4 MG/2 ML VIAL. IV PRN (23:30)
[2017-11-17] MEDS ORDERED: DEXTROSE 50% 25 GM / 50ML DISP.SYRIN. IV PRN (23:30)
[2017-11-17] MEDS ORDERED: IV NORMAL SALINE 1,000ML 1,000 ML IV SCH (23:30)
[2017-11-18] VITALS (21 sets, daily range): BP systolic 102–145; BP diastolic 57–97
[2017-11-18] MEDS ORDERED: PROMETHAZINE 12.5 MG in IV NORMAL SALINE 50ML 50 ML IV PRN (01:30)
[2017-11-18] MEDS ORDERED: METOCLOPRAMIDE HCL 10 MG/2 ML VIAL. IV PRN (01:30)
[2017-11-18] MEDS ORDERED: ONDANSETRON PF 4 MG/2 ML VIAL. IV PRN (01:30)
[2017-11-18] MEDS ORDERED: IV NORMAL SALINE 1,000ML 1,000 ML IV SCH (01:30)
[2017-11-18 02:38] LABS: CALCIUM 7.5 mg/dL (8.5-10.1); CREATININE 0.7 mg/dL (0.6-1.0); GFR 101.1; POTASSIUM 3.8 mmol/L (3.5-5.1)
[2017-11-18] MEDS: POTASSIUM CL 40MEQ D5-0.45NACL 1,000 ML IV SCH ×4 (03:30→23:30)
[2017-11-18 04:33] LABS: CALCIUM 7.3 mg/dL (8.5-10.1); CREATININE 0.6 mg/dL (0.6-1.0); GFR 120.8; POTASSIUM 3.8 mmol/L (3.5-5.1)
[2017-11-18 06:58] LABS: CALCIUM 7.4 mg/dL (8.5-10.1); CREATININE 0.5 mg/dL (0.6-1.0); GFR 149.1; POTASSIUM 4.3 mmol/L (3.5-5.1)
[2017-11-18 07:06] LABS: BASO % 0 % (0-3); EOS % 0 % (0-3); HEMATOCRIT 28.4 % (36.0-47.0); HEMOGLOBIN 9.6 g/dL (12.0-15.5); LYMPH # 1.6 x10^3/uL (1.0-4.8); LYMPH % 25 % (24-48); MEAN CORPUSCULAR HEMOGLOBIN 30 pg (25-35); MEAN CORPUSCULAR HGB CONC 34 g/dL (31-37); MEAN CORPUSCULAR VOLUME 88 fL (79-100); MONO # 0.4 x10^3/uL (0.0-1.1); MONO % 7 % (0-9); NEUT # 4.3 x10^3uL (1.8-7.7); NEUT % 68 % (31-73); PLATELET COUNT 267 x10^3/uL (140-400); RED BLOOD COUNT 3.21 x10^6/uL (3.50-5.40); RED CELL DISTRIBUTION WIDTH 14.6 % (11.5-14.5); WHITE BLOOD COUNT 6.4 x10^3/uL (4.0-11.0)
[2017-11-18] MEDS ORDERED: KETOROLAC 30 MG/ML VIAL. IV PRN (07:45)
[2017-11-18] MEDS ORDERED: ONDANSETRON ODT 4 MG TAB.RAPDIS PO PRN ×2 (07:45→08:00)
[2017-11-18] MEDS ORDERED: DEXTROSE 50% 25 GM / 50ML DISP.SYRIN. IV PRN (08:00)
[2017-11-18] MEDS: FAMOTIDINE 20 MG TABLET PO SCH ×2 (08:37→20:35)
[2017-11-18] MEDS: METOCLOPRAMIDE 10 MG TABLET PO SCH ×4 (08:37→20:34)
[2017-11-18] MEDS: POTASSIUM CHLORIDE 20 MEQ TABLET.ER. PO SCH ×2 (08:38→20:35)
[2017-11-18] MEDS ORDERED: MAGNESIUM OXIDE 400 MG TABLET PO SCH (09:00)
[2017-11-18] MEDS ORDERED: INSULIN DETEMIR 300 UNITS/3 ML INSULN.PEN. SQ SCH ×2 (09:00→14:25)
[2017-11-18] MEDS ORDERED: INSULIN ASPART 300 UNITS/3 ML INSULN.PEN SQ ONE ×4 (10:00→18:45)
[2017-11-18] MEDS: INSULIN ASPART 300 UNITS/3 ML INSULN.PEN SQ SCH ×3 (11:26→21:05)
--- NOTE | 2017-11-18 11:38 | HP ---
ADMIT DATE: 11/17/2017 REASON FOR ADMISSION: DKA. HISTORY OF PRESENT ILLNESS: This is a 27-year-old female who was just discharged from the hospital on 11/16/2017 with DKA. She stated she went home and after 20 minutes started to throw up. She presented to the Emergency Room, was hydrated and was sent back home. She presented back to the Emergency Room with continued nausea, vomiting and abdominal pain. PAST MEDICAL HISTORY: 1. Repeated admissions for DKA. 2. Longstanding type 1 diabetes since a teenager. 3. Chronic hypomagnesemia. 4. Gastroparesis. 5. Methamphetamine abuse and was positive, last use was about 7 days ago. MEDICATIONS: Reviewed. FAMILY HISTORY: Unchanged and unchanged. The patient states she has attempts to treat her elevated glucoses, but then becomes too sick to continue. REVIEW OF SYSTEMS: Positive for nausea, vomiting and abdominal pain secondary to the nausea and vomiting. OBJECTIVE: VITAL SIGNS: Blood pressure 136/76, pulse 95, pulse ox 100% on room air, temperature 98.4. GENERAL: The patient is actively vomiting. Color is pale. LUNGS: Clear. CARDIOVASCULAR: Rapid rhythm and rate. LABORATORY DATA: Admission glucose 461 with carbon dioxide of 18, sodium of 130, lipase of 53. This morning, her sodium is 136, carbon dioxide is 19, glucose now came down to 123, 152, 139. ASSESSMENT: 1. Diabetic ketoacidosis. 2. Dehydration, resolved. 3. Hyperglycemia, continued. PLAN: Hydration, antiemetics, insulin drip. BARRY MORELAND DO DR: DONNA/regina JOB#: [id number] / [id number]
[2017-11-19] VITALS (7 sets, daily range): BP systolic 105–133; BP diastolic 70–90
[2017-11-19] MEDS ORDERED: INSULIN ASPART 300 UNITS/3 ML INSULN.PEN SQ ONE ×2 (01:45→07:45)
[2017-11-19] MEDS: POTASSIUM CL 40MEQ D5-0.45NACL 1,000 ML IV SCH (05:56)
[2017-11-19 07:13] LABS: BASO % 1 % (0-3); EOS % 2 % (0-3); HEMOGLOBIN 11.8 g/dL (12.0-15.5); LYMPH % 37 % (24-48); MEAN CORPUSCULAR HEMOGLOBIN 30 pg (25-35); MEAN CORPUSCULAR HGB CONC 34 g/dL (31-37); MEAN CORPUSCULAR VOLUME 89 fL (79-100); MONO # 0.4 x10^3/uL (0.0-1.1); MONO % 16 % (0-9); NEUT # 1.2 x10^3uL (1.8-7.7); NEUT % 44 % (31-73); PLATELET COUNT 252 x10^3/uL (140-400); RED BLOOD COUNT 3.96 x10^6/uL (3.50-5.40); RED CELL DISTRIBUTION WIDTH 15.2 % (11.5-14.5)
[2017-11-19 07:20] LABS: CALCIUM 8.2 mg/dL (8.5-10.1); CREATININE 0.6 mg/dL (0.6-1.0); GFR 120.8; MAGNESIUM 1.6 mg/dL (1.8-2.4); POTASSIUM 4.5 mmol/L (3.5-5.1)
[2017-11-19] MEDS: INSULIN ASPART 300 UNITS/3 ML INSULN.PEN SQ SCH (07:30)
[2017-11-19 07:34] LABS: WHITE BLOOD COUNT 2.7 x10^3/uL (4.0-11.0)
[2017-11-19] MEDS: POTASSIUM CHLORIDE 20 MEQ TABLET.ER. PO SCH (07:57)
[2017-11-19] MEDS: FAMOTIDINE 20 MG TABLET PO SCH (07:57)
[2017-11-19] MEDS: METOCLOPRAMIDE 10 MG TABLET PO SCH (07:57)
[2017-11-19] MEDS ORDERED: INSU100V13 SQ (08:16)
[2017-11-19] MEDS ORDERED: MAGN400C PO (08:16)
[2017-11-19] MEDS ORDERED: MAGNESIUM OXIDE 400 MG TABLET PO SCH (09:00)
[2017-11-19] MEDS ORDERED: INSULIN DETEMIR 300 UNITS/3 ML INSULN.PEN. SQ SCH (09:00)
--- NOTE | 2017-11-19 10:45 | PDOC3 ---
Discharge Summary Visit Information Date of Admission: Nov 17, 2017 Date of Discharge: Nov 19, 2017 Final Diagnosis Problems Medical Problems: (1) Diabetic ketoacidosis Status: Acute (2) DKA (diabetic ketoacidoses) Status: Acute (3) Hyperglycemia Status: Acute 1. Diabetic ketoacidosis. 2. Dehydration, 3. HYPOMAGNESEMIA 4. METH ABUSE 5. ADJUSTMENT DISORDER 6. DIABETIC GASTROPARESIS Problems: Brief Hospital Course Allergies Allergies Coded Allergies Type Severity Reaction Last Updated Verified acetaminophen Allergy Intermediate HIVES 10/14/17 Yes adhesive tape Allergy Intermediate 10/14/17 Yes Vital Signs Vital Signs Date Time Temp Pulse Resp B/P (MAP) Pulse Ox O2 Delivery O2 Flow Rate FiO2 11/19/17 08:15 89 22 133/90 (104) 100 Room Air 11/18/17 21:00 98.8 Lab Results Laboratory Tests Test 11/17/17 19:52 11/17/17 20:02 11/17/17 21:06 11/17/17 22:17 Glucose (Fingerstick) 461 mg/dL (70-99) 418 mg/dL (70-99) White Blood Count 7.8 x10^3/uL (4.0-11.0) Red Blood Count 4.38 x10^6/uL (3.50-5.40) Hemoglobin 13.0 g/dL (12.0-15.5) Hematocrit 39.1 % (36.0-47.0) Mean Corpuscular Volume 90 fL (79-100) Mean Corpuscular Hemoglobin 30 pg (25-35) Mean Corpuscular Hemoglobin Concent 33 g/dL (31-37) Red Cell Distribution Width 14.9 % (11.5-14.5) Platelet Count 351 x10^3/uL (140-400) Neutrophils (%) (Auto) 66 % (31-73) Lymphocytes (%) (Auto) 27 % (24-48) Monocytes (%) (Auto) 6 % (0-9) Eosinophils (%) (Auto) 1 % (0-3) Basophils (%) (Auto) 1 % (0-3) Neutrophils # (Auto) 5.1 x10^3uL (1.8-7.7) Lymphocytes # (Auto) 2.1 x10^3/uL (1.0-4.8) Monocytes # (Auto) 0.5 x10^3/uL (0.0-1.1) Eosinophils # (Auto) 0.0 x10^3/uL (0.0-0.7) Basophils # (Auto) 0.1 x10^3/uL (0.0-0.2) Urine Collection Type Unknown Urine Color Straw Urine Clarity Hazy Urine pH 5.0 Urine Specific [place] 1.010 Urine Protein Neg (NEG-TRACE) Urine Glucose (UA) 500 mg/dL (NEG) Urine Ketones (Stick) >=160 mg/dL (NEG) Urine Blood Neg (NEG) Urine Nitrite Neg (NEG) Urine Bilirubin Neg (NEG) Urine Urobilinogen Dipstick 0.2 mg/dL (0.2 mg/dL) Urine Leukocyte Esterase Neg (NEG) Urine RBC 0 /HPF (0-2) Urine WBC Occ /HPF (0-4) Urine Squamous Epithelial Cells Mod /LPF Urine Transitional Epithelial Cells Occ /LPF Urine Bacteria 0 /HPF (0-FEW) Sodium Level 130 mmol/L (136-145) 132 mmol/L (136-145) Potassium Level 5.0 mmol/L (3.5-5.1) 5.0 mmol/L (3.5-5.1) Chloride Level 90 mmol/L (98-107) 97 mmol/L (98-107) Carbon Dioxide Level 18 mmol/L (21-32) 14 mmol/L (21-32) Anion Gap 22 (6-14) 21 (6-14) Blood Urea Nitrogen 12 mg/dL (7-20) 12 mg/dL (7-20) Creatinine 0.8 mg/dL (0.6-1.0) 0.7 mg/dL (0.6-1.0) Estimated GFR (Cockcroft-Gault) 86.7 101.1 BUN/Creatinine Ratio 15 (6-20) Glucose Level 443 mg/dL (70-99) 419 mg/dL (70-99) Calcium Level 9.0 mg/dL (8.5-10.1) 7.8 mg/dL (8.5-10.1) Total Bilirubin 0.9 mg/dL (0.2-1.0) Aspartate Amino Transf (AST/SGOT) 28 U/L (15-37) Alanine Aminotransferase (ALT/SGPT) 39 U/L (14-59) Alkaline Phosphatase 109 U/L (46-116) Total Protein 8.0 g/dL (6.4-8.2) Albumin 3.9 g/dL (3.4-5.0) Albumin/Globulin Ratio 1.0 (1.0-1.7) Lipase 53 U/L (73-393) Test 11/17/17 23:18 11/17/17 23:59 11/18/17 01:13 11/18/17 02:13 Glucose (Fingerstick) 407 mg/dL (70-99) 387 mg/dL (70-99) 278 mg/dL (70-99) Nasal Screen MRSA (PCR) Negative (Negative) Test 11/18/17 02:15 11/18/17 03:15 11/18/17 04:13 11/18/17 04:15 Sodium Level 133 mmol/L (136-145) 138 mmol/L (136-145) Potassium Level 3.8 mmol/L (3.5-5.1) 3.8 mmol/L (3.5-5.1) Chloride Level 102 mmol/L (98-107) 107 mmol/L (98-107) Carbon Dioxide Level 12 mmol/L (21-32) 18 mmol/L (21-32) Anion Gap 19 (6-14) 13 (6-14) Blood Urea Nitrogen 12 mg/dL (7-20) 12 mg/dL (7-20) Creatinine 0.7 mg/dL (0.6-1.0) 0.6 mg/dL (0.6-1.0) Estimated GFR (Cockcroft-Gault) 101.1 120.8 Glucose Level 283 mg/dL (70-99) 190 mg/dL (70-99) Calcium Level 7.5 mg/dL (8.5-10.1) 7.3 mg/dL (8.5-10.1) Glucose (Fingerstick) 155 mg/dL (70-99) 177 mg/dL (70-99) Test 11/18/17 05:19 11/18/17 06:12 11/18/17 06:37 11/18/17 07:40 Glucose (Fingerstick) 171 mg/dL (70-99) 123 mg/dL (70-99) 152 mg/dL (70-99) White Blood Count 6.4 x10^3/uL (4.0-11.0) Red Blood Count 3.21 x10^6/uL (3.50-5.40) Hemoglobin 9.6 g/dL (12.0-15.5) Hematocrit 28.4 % (36.0-47.0) Mean Corpuscular Volume 88 fL (79-100) Mean Corpuscular Hemoglobin 30 pg (25-35) Mean Corpuscular Hemoglobin Concent 34 g/dL (31-37) Red Cell Distribution Width 14.6 % (11.5-14.5) Platelet Count 267 x10^3/uL (140-400) Neutrophils (%) (Auto) 68 % (31-73) Lymphocytes (%) (Auto) 25 % (24-48) Monocytes (%) (Auto) 7 % (0-9) Eosinophils (%) (Auto) 0 % (0-3) Basophils (%) (Auto) 0 % (0-3) Neutrophils # (Auto) 4.3 x10^3uL (1.8-7.7) Lymphocytes # (Auto) 1.6 x10^3/uL (1.0-4.8) Monocytes # (Auto) 0.4 x10^3/uL (0.0-1.1) Eosinophils # (Auto) 0.0 x10^3/uL (0.0-0.7) Basophils # (Auto) 0.0 x10^3/uL (0.0-0.2) Sodium Level 136 mmol/L (136-145) Potassium Level 4.3 mmol/L (3.5-5.1) Chloride Level 107 mmol/L (98-107) Carbon Dioxide Level 19 mmol/L (21-32) Anion Gap 10 (6-14) Blood Urea Nitrogen 10 mg/dL (7-20) Creatinine 0.5 mg/dL (0.6-1.0) Estimated GFR (Cockcroft-Gault) 149.1 Glucose Level 139 mg/dL (70-99) Calcium Level 7.4 mg/dL (8.5-10.1) Test 11/18/17 08:36 11/18/17 09:40 11/18/17 11:20 11/18/17 13:56 Glucose (Fingerstick) 139 mg/dL (70-99) 290 mg/dL (70-99) 303 mg/dL (70-99) 293 mg/dL (70-99) Test 11/18/17 16:04 11/18/17 17:28 11/18/17 18:22 11/18/17 20:31 Glucose (Fingerstick) 419 mg/dL (70-99) 414 mg/dL (70-99) 340 mg/dL (70-99) 220 mg/dL (70-99) Test 11/18/17 22:51 11/19/17 01:27 11/19/17 05:05 11/19/17 06:20 Glucose (Fingerstick) 218 mg/dL (70-99) 356 mg/dL (70-99) 183 mg/dL (70-99) White Blood Count 2.7 x10^3/uL (4.0-11.0) Red Blood Count 3.96 x10^6/uL (3.50-5.40) Hemoglobin 11.8 g/dL (12.0-15.5) Hematocrit 35.0 % (36.0-47.0) Mean Corpuscular Volume 89 fL (79-100) Mean Corpuscular Hemoglobin 30 pg (25-35) Mean Corpuscular Hemoglobin Concent 34 g/dL (31-37) Red Cell Distribution Width 15.2 % (11.5-14.5) Platelet Count 252 x10^3/uL (140-400) Neutrophils (%) (Auto) 44 % (31-73) Lymphocytes (%) (Auto) 37 % (24-48) Monocytes (%) (Auto) 16 % (0-9) Eosinophils (%) (Auto) 2 % (0-3) Basophils (%) (Auto) 1 % (0-3) Neutrophils # (Auto) 1.2 x10^3uL (1.8-7.7) Lymphocytes # (Auto) 1.0 x10^3/uL (1.0-4.8) Monocytes # (Auto) 0.4 x10^3/uL (0.0-1.1) Eosinophils # (Auto) 0.0 x10^3/uL (0.0-0.7) Basophils # (Auto) 0.0 x10^3/uL (0.0-0.2) Sodium Level 137 mmol/L (136-145) Potassium Level 4.5 mmol/L (3.5-5.1) Chloride Level 103 mmol/L (98-107) Carbon Dioxide Level 27 mmol/L (21-32) Anion Gap 7 (6-14) Blood Urea Nitrogen 4 mg/dL (7-20) Creatinine 0.6 mg/dL (0.6-1.0) Estimated GFR (Cockcroft-Gault) 120.8 Glucose Level 252 mg/dL (70-99) Calcium Level 8.2 mg/dL (8.5-10.1) Magnesium Level 1.6 mg/dL (1.8-2.4) Test 11/19/17 07:26 11/19/17 08:40 Glucose (Fingerstick) 358 mg/dL (70-99) 379 mg/dL (70-99) Brief Hospital Course Ms. Leary is a 27 old [sex] who presented with [ ] HISTORY OF PRESENT ILLNESS: This is a 27-year-old female who was just discharged from the hospital on 11/16/2017 with DKA. She stated she went home and after 20 minutes started to throw up. She presented to the Emergency Room, was hydrated and was sent back home. She presented back to the Emergency Room with continued nausea, vomiting and abdominal pain. Discharge Information Condition at Discharge: Improved Disposition/Orders: D/C to Home Dischare Medications Current Medications Sodium Chloride 1,000 ml @ 1,000 mls/hr 1X ONCE IV Last administered on 11/17 20:00; Start 11/17/17 at 20:00; Stop 11/17/17 at 20:59; Status DC Sodium Chloride 1,000 ml @ 1,000 mls/hr 1X ONCE IV Last administered on 11/17 20:00; Start 11/17/17 at 20:00; Stop 11/17/17 at 20:59; Status DC Ondansetron HCl (Zofran) 4 mg 1X ONCE IV Last administered on 11/17/17 20:26 ; Start 11/17/17 at 20:15; Stop 11/17/17 at 20:16; Status DC Haloperidol Lactate (Haldol) 5 mg 1X ONCE IM Last administered on 11/17/17 20:44; Start 11/17/17 at 20:45; Stop 11/17/17 at 20:46; Status DC Metoclopramide HCl (Reglan Vial) 10 mg 1X ONCE IV Last administered on 21:01; Start 11/17/17 at 21:00; Stop 11/17/17 at 21:01; Status DC Insulin Human Regular 150 unit/ Sodium Chloride 151.5 ml @ 0 mls/hr CONT PRN IV SEE I/O RECORD Last administered on 11/18/17 01:15; Start 11/17/17 at 23: 30; Stop 11/19/17 at 09:09; Status DC Dextrose 12.5 gm PRN Q15MIN PRN IV LOW BLOOD SUGAR; Start 11/17/17 at 23:30; Stop 11/19/17 at 09:09; Status DC Ondansetron HCl (Zofran) 4 mg PRN Q4HRS PRN IV NAUSEA/VOMITING; Start at 23:30; Stop 11/18/17 at 07:13; Status DC Fentanyl Citrate (Fentanyl 2ml Vial) 50 mcg PRN Q1HR PRN IV PAIN; Start at 23:30; Stop 11/18/17 at 07:39; Status DC Sodium Chloride 1,000 ml @ 150 mls/hr Q6H40M IV Last administered on 01:15; Start 11/17/17 at 23:30; Stop 11/18/17 at 07:14; Status DC Sodium Chloride 150 ml @ As Directed STK-MED ONCE .ROUTE ; Start 11/17/17 at 23:18; Stop 11/17/17 at 23:19; Status DC Metoclopramide HCl (Reglan Vial) 10 mg PRN Q6HRS PRN IV NAUSEA/VOMITING; Start 11/18/17 at 01:30; Stop 11/19/17 at 09:09; Status DC Promethazine HCl 12.5 mg/Sodium Chloride 50.5 ml @ 101 mls/hr PRN Q6HRS PRN IV NAUSEA/VOMITING; Start 11/18/17 at 01:30; Stop 11/19/17 at 09:09; Status DC Ondansetron HCl (Zofran) 4 mg PRN Q6HRS PRN IV NAUSEA/VOMITING; Start at 01:30; Stop 11/19/17 at 09:09; Status DC Sodium Chloride 1,000 ml @ 150 mls/hr Q6H40M IV Last administered on 02:15; Start 11/18/17 at 01:30; Stop 11/18/17 at 07:14; Status DC Potassium Chloride/Dextrose/ Sod Cl 1,000 ml @ 150 mls/hr Q6H40M IV Last administered on 11/19/17 05:56; Start 11/18/17 at 03:30; Stop 11/19/17 at 09 :09; Status DC Metoclopramide HCl (Reglan) 10 mg QID PO Last administered on 11/19/17 07:57 ; Start 11/18/17 at 09:00; Stop 11/19/17 at 09:09; Status DC Ondansetron HCl (Zofran Odt) 4 mg Q8HRS PRN PO NAUSEA; Start 11/18/17 at 07:45 ; Stop 11/19/17 at 09:09; Status DC Insulin Detemir (Levemir) 15 units BID SQ Last administered on 11/18/17 08:40 ; Start 11/18/17 at 09:00; Stop 11/18/17 at 14:25; Status DC Magnesium Oxide (Magnesium Oxide) 400 mg DAILY PO Last administered on 08:38; Start 11/18/17 at 09:00; Stop 11/19/17 at 07:38; Status DC Ondansetron HCl (Zofran Odt) 8 mg PRN QID PRN PO NAUSEA/VOMITING Last administered on 11/18/17 10:20; Start 11/18/17 at 08:00; Stop 11/19/17 at 09 :09; Status DC Potassium Chloride (Klor-Con) 20 meq BID PO Last administered on 11/19/17 07: 57; Start 11/18/17 at 09:00; Stop 11/19/17 at 09:09; Status DC Famotidine (Pepcid) 20 mg BID PO Last administered on 11/19/17 07:57; Start 11/18/17 at 09:00; Stop 11/19/17 at 09:09; Status DC Ketorolac Tromethamine (Toradol) 30 mg PRN Q6HRS PRN IV PAIN; Start 11/18/17 at 07:45; Stop 11/19/17 at 09:09; Status DC Insulin Aspart (NovoLOG) 0-9 UNITS TIDACHC SQ Last administered on 11/18/17 21:05; Start 11/18/17 at 11:30; Stop 11/19/17 at 09:09; Status DC Dextrose 12.5 gm PRN Q15MIN PRN IV SEE COMMENTS; Start 11/18/17 at 08:00; Status UNV Insulin Aspart (NovoLOG) 7 units 1X ONCE SQ Last administered on 11/18/17 09 :59; Start 11/18/17 at 10:00; Stop 11/18/17 at 10:01; Status DC Insulin Aspart (NovoLOG) 7 units 1X ONCE SQ Last administered on 11/18/17 14 :29; Start 11/18/17 at 14:00; Stop 11/18/17 at 14:23; Status DC Insulin Detemir (Levemir) 15 units BID SQ Last administered on 11/18/17 21:04 ; Start 11/18/17 at 14:25; Stop 11/19/17 at 07:41; Status DC Insulin Aspart (NovoLOG) 20 units 1X ONCE SQ Last administered on 11/18/17 16:46; Start 11/18/17 at 16:15; Stop 11/18/17 at 16:16; Status DC Insulin Aspart (NovoLOG) 15 units 1X ONCE SQ Last administered on 11/18/17 18:31; Start 11/18/17 at 18:45; Stop 11/18/17 at 18:46; Status DC Insulin Aspart (NovoLOG) 25 units 1X ONCE SQ Last administered on 11/19/17 01:43; Start 11/19/17 at 01:45; Stop 11/19/17 at 03:03; Status DC Magnesium Oxide (Magnesium Oxide) 400 mg BID92 PO Last administered on 07:57; Start 11/19/17 at 09:00; Stop 11/19/17 at 09:09; Status DC Insulin Aspart (NovoLOG) 20 units 1X ONCE SQ Last administered on 11/19/17 07:45; Start 11/19/17 at 07:45; Stop 11/19/17 at 07:46; Status DC Insulin Detemir (Levemir) 20 units BID SQ Last administered on 11/19/17t 07:59 ; Start 11/19/17 at 09:00; Stop 11/19/17 at 09:09; Status DC Active Scripts Active Magnesium (Magnesium Oxide) 400 Mg Capsule 1 Cap PO BID 60 Days Levemir (Insulin Detemir) 100 Unit/1 Ml Vial 20 Unit SQ BID 30 Days resume tonight at bedtime last dose this morning Ondansetron Hcl 4 Mg Tablet 4 Mg PO TID 3 Days Potassium Chloride 20 Meq Tablet.er 20 Meq PO BID 3 Days Zantac (Ranitidine Hcl) 150 Mg Tablet 1 Tab PO BID Zofran Odt (Ondansetron) 8 Mg Tab.rapdis 8 Mg PO QIDPRN Zofran Odt (Ondansetron) 4 Mg Tab.rapdis 1 Tab SL Q8HRS Reglan (Metoclopramide Hcl) 10 Mg Tablet 1 Tab PO QID Novolog Flexpen (Insulin Aspart) 100 Unit/1 Ml Insuln.pen 0-9 Unit SQ ACHS FOLLOW SUPPLEMENTAL SCALE GIVEN TO YOU Patient Instructions Patient Instuctions COUNSELED REGARDING HER DRUG USE AND THE NEED FOR REHAB. SLIDING SCALE GIVEN. BARRY MORELAND DO Nov 19, 2017 10:45
== END 2017-11-19 09:08 | disposition home or self-care (01) | DRG 639 ==
LOC: ER 19:45 → ICU 23:58
PROVIDERS: ADMIT Family Medicine; ATTEND Family Medicine
DX: E10.10 Type 1 diabetes mellitus with ketoacidosis without coma (principal); K31.84 Gastroparesis; E10.43 Type 1 diabetes mellitus with diabetic autonomic (poly)neuropathy; E83.42 Hypomagnesemia; F12.90 Cannabis use, unspecified, uncomplicated; F14.90 Cocaine use, unspecified, uncomplicated; F15.10 Other stimulant abuse, uncomplicated; F41.9 Anxiety disorder, unspecified; E86.0 Dehydration; F43.20 Adjustment disorder, unspecified; Z79.4 Long term (current) use of insulin; Z79.899 Other long term (current) drug therapy; Z91.19 Patient's noncompliance with other medical treatment and regimen
CPT/HCPCS: 36415; 80048; 80053; 81001; 82947; 83690; 83735; 85025; 87641; J1630; J1815; J2405; J2765; J7042; J8597; Q0162; J7030

== ENCOUNTER 2017-11-21 17:21 | Inpatient (IN) | payer SELFPAY ==
[~2017-11-21] VITALS: Ht 170.2 cm; Wt 57.7 kg
[2017-11-21] MEDS ORDERED: ONDANSETRON PF 4 MG/2 ML VIAL. ONE (18:38)
[2017-11-21] MEDS ORDERED: IV NORMAL SALINE 1,000ML 1,000 ML IV SCH ×3 (18:58→21:07)
[2017-11-21] MEDS ORDERED: MORPHINE SULFATE 5 MG/ML SYRINGE. IV ONE (19:45)
[2017-11-21 20:05] LABS: BASO # 0.1 x10^3/uL (0.0-0.2); BASO % 1 % (0-3); EOS % 0 % (0-3); HEMATOCRIT 39.9 % (36.0-47.0); HEMOGLOBIN 12.9 g/dL (12.0-15.5); LYMPH # 1.6 x10^3/uL (1.0-4.8); LYMPH % 19 % (24-48); MEAN CORPUSCULAR HEMOGLOBIN 30 pg (25-35); MEAN CORPUSCULAR HGB CONC 32 g/dL (31-37); MEAN CORPUSCULAR VOLUME 92 fL (79-100); MONO # 0.4 x10^3/uL (0.0-1.1); MONO % 5 % (0-9); NEUT % 74 % (31-73); PLATELET COUNT 440 x10^3/uL (140-400); RED BLOOD COUNT 4.34 x10^6/uL (3.50-5.40); RED CELL DISTRIBUTION WIDTH 15.4 % (11.5-14.5); WHITE BLOOD COUNT 8.1 x10^3/uL (4.0-11.0)
[2017-11-21 20:31] LABS: BACTERIA,URINE 0 /HPF (0-FEW); BILIRUBIN,URINE NEG (NEG); CLARITY,URINE CLEAR; COLOR,URINE STRAW; GLUCOSE,URINE 500 mg/dL (NEG); NITRITE,URINE NEG (NEG); RBC,URINE 0 /HPF (0-2); SQUAMOUS EPITHELIAL CELL,UR OCC /LPF; UROBILINOGEN,URINE 0.2 mg/dL (0.2 mg/dL); WBC,URINE OCC /HPF (0-4)
[2017-11-21 20:36] LABS: ALBUMIN 3.6 g/dL (3.4-5.0); CALCIUM 8.7 mg/dL (8.5-10.1); CREATININE 1.1 mg/dL (0.6-1.0); POTASSIUM 5.9 mmol/L (3.5-5.1); TOTAL BILIRUBIN 0.7 mg/dL (0.2-1.0); TOTAL PROTEIN 7.2 g/dL (6.4-8.2)
[2017-11-21 20:54] LABS: AMPHETAMINE/METHAMPHETAMINE NEG (NEG); BARBITURATES NEG (NEG); BENZODIAZEPINES NEG (NEG); CANNABINOIDS NEG (NEG); COCAINE NEG (NEG); METHADONE NEG (NEG); OPIATES NEG (NEG); PHENCYCLIDINE NEG (NEG)
--- NOTE | 2017-11-21 20:56 | PHYS DOC ---
General Chief Complaint: SHORTNESS OF BREATH Stated Complaint: SOA Time Seen by MD: 18:58 Source: patient, old records Exam Limitations: no limitations Problems: History of Present Illness Initial Comments Patient is a very brittle type I diabetic 27-year-old female well known to this facility brought to the ED with a complaint of vomiting and high blood sugar. Patient was just admitted to this facility for hyperglycemia she was discharged 2 days ago. She says she's been compliant with diet and medications however has had progressively increasing vomiting and today says she's been unable to keep anything down. She denies substance abuse fever chills or myalgias cough or other possible evidence of infection. She is actively vomiting and tachycardic on ED arrival, POC glucose reads "high." Timing/Duration: other Severity: severe Modifying Factors: worse with eating Associated Symptoms: nausea/vomiting, weakness Allergies: Coded Allergies: acetaminophen (Verified Allergy, Intermediate, HIVES, 10/14/17) "WHEN I HAD MY ANKLE BX THEY GAVE ME TYLENOL AND I GOT HIVES ON MY LEG." adhesive tape (Verified Allergy, Intermediate, 10/14/17) Past Medical History Medical History: diabetes, other (gastroparesis, medication noncompliance, methamphetamine addiction) Surgical History: noncontributory Social History Smoker: non-smoker Alcohol: none Drugs: other (history of marijuana and methamphetamine abuse denies any recent use) Review of Systems Constitutional: denies chills, denies fever Respiratory: denies cough, shortness of breath, denies wheezing Cardiovascular: denies chest pain, denies palpitations, denies syncope Gastrointestinal: abdominal pain, nausea, vomiting Genitourinary: denies dysuria, denies frequency, denies hematuria Musculoskeletal: back pain, denies joint swelling, muscle pain, denies neck pain Psychiatric/Neurological: headache, denies numbness, denies paresthesia, denies weakness Hematologic/Lymphatic: denies blood clots, denies easy bleeding, denies easy bruising Physical Exam General Appearance: severe distress (retching and vomiting on ED arrival) Eyes: bilateral eye normal inspection, bilateral eye PERRL, bilateral eye EOMI Ear, Nose, Throat: hearing grossly normal, normal ENT inspection, normal pharynx (dry mucous membranes) Neck: non-tender, supple Respiratory: chest non-tender, normal breath sounds, no respiratory distress Cardiovascular: normal peripheral pulses, tachycardia Gastrointestinal: soft (nondistended generalized muscle tenderness without rebound or guarding negative Boudreaux and McBurney) Back: no CVA tenderness, no vertebral tenderness Extremities: non-tender, normal inspection, no pedal edema Neurologic/Psychiatric: 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 Interpreted by me. Chest AP: Cardiac silhouette and mediastinal structures appear normal, no focal consolidation interpreted by me. Critical labs called to me: Glucose 664, CO2 11.3, lactic acid 2.8, sodium 129, potassium 5.9, BUN 20, creatinine 1.1, urinalysis: 500 glucose, greater than 160 ketones Anion gap 28 The patient has had 2 L of normal saline intravenously as boluses, currently 15 units of Regular Insulin has been ordered. Nausea and vomiting has resolved with Zofran and 5 mg morphine IV. 2103: I discussed the patient with metal control coordinator hospitalist Dr. Pereira who accepts ICU admission for further hydration and monitoring of labs as well as insulin drip. Departure Time of Disposition: 21:03 Disposition: 09 ADMITTED INPATIENT Diagnosis: diabetic ketoacidosis, hypovolemia Condition: STABLE Additional Instructions: ICU admission Dr. Pereira is accepting. CEDRIC MELENDEZ DO Nov 21, 2017 20:56
[2017-11-21] MEDS ORDERED: INSULIN REGULAR 100 UNIT/ML 10ML VIAL. IV ONE (21:00)
[2017-11-21] MEDS ORDERED: ONDANSETRON PF 4 MG/2 ML VIAL. IV PRN (21:15)
[2017-11-21] MEDS ORDERED: INSULIN REGULAR 150 UNIT in 0.9 % SODIUM CHLORIDE 150ML 150 ML IV ONE (21:15)
--- NOTE | 2017-11-21 21:22 | EKG ---
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
[2017-11-21 21:55] VITALS: BP 102/57
[2017-11-21] MEDS: INSULIN REGULAR 150 UNIT in 0.9 % SODIUM CHLORIDE 150ML 150 ML IV PRN (22:38)
[2017-11-21 23:13] VITALS: BP 83/51
[2017-11-22] VITALS (21 sets, daily range): BP systolic 81–139; BP diastolic 49–91
[2017-11-22] MEDS: IV NORMAL SALINE 1,000ML 1,000 ML IV SCH ×4 (01:36→20:02)
[2017-11-22 04:22] LABS: BASO # 0.1 x10^3/uL (0.0-0.2); BASO % 1 % (0-3); EOS % 1 % (0-3); HEMATOCRIT 31.1 % (36.0-47.0); HEMOGLOBIN 10.3 g/dL (12.0-15.5); LYMPH # 3.1 x10^3/uL (1.0-4.8); LYMPH % 32 % (24-48); MEAN CORPUSCULAR HEMOGLOBIN 30 pg (25-35); MEAN CORPUSCULAR HGB CONC 33 g/dL (31-37); MEAN CORPUSCULAR VOLUME 90 fL (79-100); MONO # 0.7 x10^3/uL (0.0-1.1); MONO % 8 % (0-9); NEUT # 5.7 x10^3uL (1.8-7.7); NEUT % 59 % (31-73); PLATELET COUNT 361 x10^3/uL (140-400); RED BLOOD COUNT 3.47 x10^6/uL (3.50-5.40); RED CELL DISTRIBUTION WIDTH 15.1 % (11.5-14.5); WHITE BLOOD COUNT 9.6 x10^3/uL (4.0-11.0)
[2017-11-22 04:39] LABS: CALCIUM 7.7 mg/dL (8.5-10.1); CREATININE 0.7 mg/dL (0.6-1.0); GFR 101.1; POTASSIUM 4.2 mmol/L (3.5-5.1)
[2017-11-22] MEDS: INSULIN REGULAR 150 UNIT in 0.9 % SODIUM CHLORIDE 150ML 150 ML IV PRN ×7 (07:21→15:50)
--- NOTE | 2017-11-22 08:16 | RAD ---
Portable chest, 11/21/2017: History: Shortness of breath Comparison is made to a study from 11/14/2017. The heart size and pulmonary vascularity are normal. The lungs are clear. There is no evidence of pleural fluid. IMPRESSION: No acute cardiopulmonary abnormality is detected.
--- NOTE | 2017-11-22 14:08 | HP ---
ADMIT DATE: 11/21/2017 HISTORY OF PRESENT ILLNESS: The patient is a 27-year-old female patient who was seen on 11/17/2017 and was discharged on 11/19/2017 for yet again another episode of diabetic ketoacidosis. She came last night again complaining of vomiting and high blood sugar. She claimed that she has been compliant with her diet and medication; however, she is progressively increasing vomiting and has been unable to keep anything down. She denies substance abuse, fever, chills, myalgia, cough, or other possible evidence of infection. By the time she arrived to the Emergency Room, she was apparently actively vomiting, tachycardic, and her blood sugar was read as high. On lab measurement, her blood sugar was 559. Did have dilutional hyponatremia and metabolic acidosis. Her anion gap is 28 and potassium of 5.9, was admitted with another episode of diabetic ketoacidosis. She was started on IV fluid and insulin drip and to follow the protocol. On questioning her, she continued to complain also of generalized aches and pains, mostly in her neck and her abdomen for which we did start her on fentanyl IV 25 mcg every 3 hours. PAST MEDICAL HISTORY: Significant for recurrent admission for DKA, longstanding type 1 diabetes, poorly controlled, chronic hypomagnesemia, gastroparesis, methamphetamine abuse. Apparently, her urine toxicology screen was positive. FAMILY HISTORY: Unremarkable. SOCIAL HISTORY: She is single. She lives with her mother. She continued to smoke and use methamphetamine, although as of yesterday, her toxicology screen was negative. REVIEW OF SYSTEMS: Positive for nausea, vomiting, abdominal pain and right-sided neck pain. ALLERGIES: She claims she is allergic to ACETAMINOPHEN and ADHESIVE TAPE. MEDICATIONS: She is currently on following medications: She is on NovoLog insulin as insulin sliding scale, detemir insulin 20 units twice a day, magnesium oxide 400 mg twice a day, metoclopramide 10 mg 4 times a day, ondansetron 4 mg 3 times a day, potassium chloride 20 mEq twice a day, and ranitidine 150 mg p.o. b.i.d. PHYSICAL EXAMINATION: GENERAL: On arrival to the Emergency Room, the patient was clearly distressed, tachypneic, tachycardic, pale, but no jaundice, cyanosis, or thyromegaly. No jugular venous distension. No lower limb edema. VITAL SIGNS: Her heart rate was 146, blood pressure was 100/60, temperature was 97.5, respiratory rate 20, and oxygen saturation was 99%. HEAD, EYES, EARS, NOSE AND THROAT: Showed normocephalic, atraumatic. NECK: Supple. HEART: Showed normal first and second heart sounds with no gallop, rub or murmur. CHEST: Clear to auscultation. No crepitation or rhonchi. ABDOMEN: Distended, soft, nontender. NEUROLOGIC: She is awake, alert, responding appropriately. Cranial nerves intact. EXTREMITIES: She moves extremities without difficulty. LABORATORY DATA: In the Emergency Room showed that her white cell count was 8100, hemoglobin 12.9, hematocrit 39.9, MCV 92, and platelet count 440,000. Her chemistry showed serum sodium of 128, potassium 5.9, chloride 88, bicarbonate 12, anion gap of 28, BUN 20, creatinine 1.1, estimated GFR was 60 mL per minute. Her glucose was 664 mg/dL, lactic acid was 2.8, calcium was 8.7. Total bilirubin, AST, ALT, alkaline phosphatase normal. Her CK was only 18. Total protein was 7.2, albumin was 3.6. Her D-dimer was slightly elevated at 0.34. Urinalysis showed the urine was yellow, straw colored, clear with a pH of 5, specific gravity 1.010 with large amount of glucose, large amount of ketones. The urine was negative for protein, blood, nitrite and leukocyte esterase with 0 rbc's, 0 wbc's, 0 bacteria and urine toxicology screen was essentially negative. IMPRESSION: In summary, this is a 27-year-old female patient who was yet again admitted with another episode of diabetic ketoacidosis with dilutional hyponatremia, hyperkalemia, acute kidney injury. We will continue with IV fluid, continue with insulin drip until her anion gap fully normalize. ANAYELI FOSS MD DR: JOSÉ/regina JOB#: [id number] / [id number]
[2017-11-22 16:18] LABS: CALCIUM 7.9 mg/dL (8.5-10.1); CREATININE 0.8 mg/dL (0.6-1.0); GFR 86.7; POTASSIUM 3.4 mmol/L (3.5-5.1)
[2017-11-22] MEDS ORDERED: DEXTROSE 50% 25 GM / 50ML DISP.SYRIN. IV PRN (16:45)
[2017-11-22] MEDS ORDERED: POTASSIUM CHLORIDE 20 MEQ TABLET.ER. PO ONE (17:00)
[2017-11-22] MEDS: INSULIN ASPART 300 UNITS/3 ML INSULN.PEN SQ PRN ×2 (17:29→18:51)
[2017-11-22] MEDS: INSULIN DETEMIR 300 UNITS/3 ML INSULN.PEN. SQ SCH (21:28)
--- NOTE | 2017-11-22 23:54 | PN ---
DATE: 11/21/2017 SUBJECTIVE: The patient is resting slightly propped up in bed, in no apparent distress. She is awake, alert, continued to complain of pain in her right neck and abdomen; however, she has had no further episodes of nausea and vomiting. She is tolerating her diet. She has eaten her breakfast and lunch this afternoon. PHYSICAL EXAMINATION: GENERAL: When I examined her, she was pale, but no jaundice, cyanosis, or thyromegaly. No jugular venous distension. No lower limb edema. VITAL SIGNS: Her heart rate was 118, blood pressure was 112/81, temperature was 98, respiratory rate was 14 and oxygen saturation was 98% on room air. The rest of clinical examination is unremarkable, has not really changed. Her intake over the last 24 hours was 4165 and no output is recorded. LABORATORY DATA: Her lab work this morning showed a white cell count of 9600, hemoglobin 10, hematocrit 30, MCV 90, and platelet count of 361,000. Her serum sodium has risen to 133, potassium 4.2, chloride 100, bicarbonate 16, anion gap of 17, BUN was 19, creatinine 0.7, and estimated GFR was 101 mL per minute. Her glucose 138 and calcium was 7.7. ASSESSMENT: In summary, this is again a 27-year-old female patient who was yet again admitted with another episode of diabetic ketoacidosis. She has been treated with IV fluid and insulin drip as per the protocol. She has improved. She is now tolerating her diet without any problem. She has no further episodes of nausea and vomiting. Her anion gap is almost closed. We will continue with insulin drip and IV fluid and hopefully tomorrow, we will start her back on her regular insulin regimen and she can be discharged home. ANAYELI FOSS MD DR: JOSÉ/regina JOB#: [id number] / [id number]
[2017-11-23] MEDS: INSULIN ASPART 300 UNITS/3 ML INSULN.PEN SQ PRN (00:39)
[2017-11-23 01:13] VITALS: BP 119/75
[2017-11-23] MEDS: IV NORMAL SALINE 1,000ML 1,000 ML IV SCH (03:10)
[2017-11-23 03:15] VITALS: BP 131/96
[2017-11-23 05:09] VITALS: BP 144/95
[2017-11-23 06:44] LABS: CALCIUM 7.6 mg/dL (8.5-10.1); CREATININE 0.6 mg/dL (0.6-1.0); GFR 120.8; MAGNESIUM 1.5 mg/dL (1.8-2.4); POTASSIUM 3.5 mmol/L (3.5-5.1)
[2017-11-23] MEDS: INSULIN DETEMIR 300 UNITS/3 ML INSULN.PEN. SQ SCH (09:18)
[2017-11-23] MEDS ORDERED: ONDANSETRON PF 4 MG/2 ML VIAL. ONE (09:40)
[2017-11-23] MEDS ORDERED: METOCLOPRAMIDE HCL 10 MG/2 ML VIAL. IV ONE (12:00)
[2017-11-23] MEDS ORDERED: ONDANSETRON ODT 4 MG TAB.RAPDIS PO PRN (12:15)
[2017-11-23 12:28] VITALS: BP 146/100
--- NOTE | 2017-11-23 13:34 | DS ---
DATE OF DISCHARGE: 11/23/2017 NOTE: This is a blank dictation. ANAYELI FOSS MD DR: Alyssa JOB#: [id number] / [id number]
--- NOTE | 2017-11-23 13:45 | DS ---
DATE OF DISCHARGE: 11/23/2017 HISTORY OF PRESENT ILLNESS: The patient is a 27-year-old female patient with longstanding type 1 diabetes, poorly controlled. She has been admitted to this facility numerous times for diabetic ketoacidosis and was admitted again on 11/21/2017 with another episode of diabetic ketoacidosis with a blood sugar of 664, bicarbonate of 11 and lactic acid 2.8; dilutional hyponatremia; hyperkalemia; and acute kidney injury. She was treated with diabetic ketoacidosis protocol, but she continued to have intractable nausea and abdominal pain. Her lab work including her liver enzymes and serum lipase were normal. She is known to have diabetic gastroparesis and she is on metoclopramide for that and she has had before upper GI endoscopy done by Dr. Bashir, showed basically gastritis and that she continued to have severe abdominal pain. A decision was made to transfer her to [facility] to consult the gastroenterology team. PHYSICAL EXAMINATION: GENERAL: When I saw her this afternoon, she was resting slightly propped up in bed, in no apparent respiratory distress. She was pale, no jaundice, cyanosis, or thyromegaly. No jugular venous distension. No limb edema. VITAL SIGNS: Her heart rate was 104, blood pressure was 146/100, temperature was 97.8, respiratory rate was 20, and oxygen saturation was 98%. HEAD, EYES, EARS, NOSE AND THROAT: Normocephalic, atraumatic. NECK: Supple. HEART: Showed normal first and second heart sounds with no gallop, rub or murmur. CHEST: Clear to auscultation. No crepitation or rhonchi. ABDOMEN: Distended, soft, nontender with most tenderness in the epigastric area. No guarding or rigidity. No organomegaly. Hernial orifices intact. Bowel sounds normal. NEUROLOGIC: She is awake, alert, responding appropriately. Cranial nerves intact. EXTREMITIES: She moves extremities without difficulty. She ambulates without assistance or assistive devices. LABORATORY DATA: Showed a serum sodium 141, potassium 3.5, chloride 106, bicarbonate 27, anion gap of 8, BUN 9, creatinine 0.6, estimated GFR was 120 mL per minute. Her glucose 132, calcium was 7.6, and magnesium was 1.5. Serum lipase was 71 and white cell count was 9600, hemoglobin 10, hematocrit 31, MCV 90 and platelet count of 361,000. DISCHARGE MEDICATIONS: The patient will be discharged to continue on her insulin sliding scale, Levemir insulin, metoclopramide before meals at bedtime as well as magnesium oxide. FINAL DISCHARGE DIAGNOSES: Type 1 diabetes, poorly controlled; diabetic ketoacidosis; intractable abdominal pain. ANAYELI FOSS MD DR: JOSÉ/regina JOB#: [id number] / [id number]
[2017-11-23] MEDS ORDERED: NON FORMULARY ITEM (Ondansetron Hcl 4 MG) PO SCH (14:00)
[2017-11-23] MEDS ORDERED: INSULIN ASPART 300 UNITS/3 ML INSULN.PEN SQ SCH (16:30)
[2017-11-23] MEDS ORDERED: METOCLOPRAMIDE 10 MG TABLET PO SCH (17:00)
[2017-11-23] MEDS ORDERED: MAGNESIUM OXIDE 400 MG TABLET PO SCH (21:00)
[2017-11-23] MEDS ORDERED: FAMOTIDINE 20 MG TABLET PO SCH (21:00)
[2017-11-23] MEDS ORDERED: POTASSIUM CHLORIDE 20 MEQ TABLET.ER. PO SCH (21:00)
[2017-11-23] MEDS ORDERED: NON FORMULARY ITEM (Insulin Detemir (Levemir) 20 UNIT) SQ SCH (21:00)
== END 2017-11-23 14:44 | disposition short-term general hospital (02) | DRG 638 ==
LOC: ER 17:21 → ICU 21:09
PROVIDERS: ADMIT Internal Medicine; ATTEND Internal Medicine
DX: E10.10 Type 1 diabetes mellitus with ketoacidosis without coma (principal); N17.9 Acute kidney failure, unspecified; K31.84 Gastroparesis; E10.43 Type 1 diabetes mellitus with diabetic autonomic (poly)neuropathy; E87.5 Hyperkalemia; F15.20 Other stimulant dependence, uncomplicated; E87.1 Hypo-osmolality and hyponatremia; E86.1 Hypovolemia; K29.70 Gastritis, unspecified, without bleeding; F17.200 Nicotine dependence, unspecified, uncomplicated; Z79.4 Long term (current) use of insulin; Z91.14 Patient's other noncompliance with medication regimen; Z88.8 Allergy status to other drugs, medicaments and biological substances; Z91.041 Radiographic dye allergy status
CPT/HCPCS: 36415; 71045; 80048; 80053; 80307; 81001; 82550; 82947; 83605; 83690; 83735; 84484; 85025; 85379; 87040; 87641; 93005; 96361; 96374; 96375; G0480; J1815; J2270; J2405; J2765; J3010; 99285-25; G0479; J7030

== ENCOUNTER 2017-11-26 20:15 | Inpatient (IN) | payer SELFPAY ==
[~2017-11-26] VITALS: Ht 170.2 cm; Wt 63.2 kg
[2017-11-26] MEDS ORDERED: HALOPERIDOL LACT 5 MG/ML VIAL. IM ONE (22:15)
[2017-11-26] MEDS ORDERED: IV NORMAL SALINE 1,000ML 1,000 ML IV ONE (22:15)
[2017-11-27] VITALS (11 sets, daily range): BP systolic 82–117; BP diastolic 43–81
[2017-11-27] MEDS ORDERED: IV NORMAL SALINE 1,000ML 1,000 ML IV ONE ×3 (00:15→01:30)
[2017-11-27] MEDS ORDERED: INSULIN REGULAR 150 UNIT in 0.9 % SODIUM CHLORIDE 150ML 150 ML IV ONE (00:30)
[2017-11-27 00:32] LABS: ALBUMIN 3.5 g/dL (3.4-5.0); ALBUMIN/GLOBULIN RATIO 0.9 (1.0-1.7); ALK PHOS 127 U/L (46-116); ALT (SGPT) 26 U/L (14-59); AST (SGOT) 14 U/L (15-37); BLOOD UREA NITROGEN 39 mg/dL (7-20); BUN/CREATININE RATIO 22 (6-20); CALCIUM 8.7 mg/dL (8.5-10.1); CHLORIDE 74 mmol/L (98-107); CREATININE 1.8 mg/dL (0.6-1.0); TOTAL BILIRUBIN 0.6 mg/dL (0.2-1.0); TOTAL PROTEIN 7.3 g/dL (6.4-8.2)
--- NOTE | 2017-11-27 00:46 | EKG ---
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
[2017-11-27 00:49] LABS: ANION GAP 39 (6-14); CARBON DIOXIDE < 5 mmol/L (21-32); GLUCOSE 1320 mg/dL (70-99); POTASSIUM 7.4 mmol/L (3.5-5.1); SODIUM 118 mmol/L (136-145)
[2017-11-27] MEDS ORDERED: INSULIN REGULAR 100 UNIT/ML 10ML VIAL. ONE (00:51)
[2017-11-27] MEDS ORDERED: 0.9 % SODIUM CHLORIDE 150ML 150 ML ONE (00:51)
[2017-11-27] MEDS ORDERED: CALCIUM GLUCONATE 1,000 MG/10 ML VIAL IV ONE ×2 (01:00→01:15)
[2017-11-27] MEDS ORDERED: INSULIN REGULAR 100 UNIT/ML 10ML VIAL. IV ONE (01:00)
[2017-11-27 01:10] LABS: BASO # 0.3 x10^3/uL (0.0-0.2); BASO % 1 % (0-3); EOS % 0 % (0-3); LYMPH # 1.8 x10^3/uL (1.0-4.8); LYMPH % 6 % (24-48); MONO # 1.7 x10^3/uL (0.0-1.1); MONO % 6 % (0-9); NEUT # 24.8 x10^3uL (1.8-7.7); NEUT % 87 % (31-73); PLATELET COUNT 577 x10^3/uL (140-400); WHITE BLOOD COUNT 28.6 x10^3/uL (4.0-11.0)
[2017-11-27 01:14] LABS: HEMATOCRIT 33.1 % (36.0-47.0); HEMOGLOBIN 10.9 g/dL (12.0-15.5); MEAN CORPUSCULAR HEMOGLOBIN 30 pg (25-35); MEAN CORPUSCULAR HGB CONC 33 g/dL (31-37); MEAN CORPUSCULAR VOLUME 90 fL (79-100); RED BLOOD COUNT 3.68 x10^6/uL (3.50-5.40); RED CELL DISTRIBUTION WIDTH 15.5 % (11.5-14.5)
[2017-11-27 01:15] LABS: BGAS PH 7.1 (7.35-7.45)
[2017-11-27 01:18] LABS: % BANDS 17 % (0-9); % LYMPHS 3 % (24-48); % MONOS 3 % (0-10); % SEGS 77 % (35-66); PLT ESTIMATE INCREASED (ADEQUATE)
--- NOTE | 2017-11-27 01:38 | PHYS DOC ---
Past History Past Medical History: Anxiety, Diabetes Additional Past Medical Histor: pt reports several admissions for "high blood sugar" Past Surgical History: No Surgical History Smoking: Less than 1pk/day Alcohol Use: None Drug Use: None Adult General Chief Complaint Chief Complaint: NAUSEA/VOMITING/DIARRHEA HPI HPI Patient is a 27-year-old female with frequent visits secondary to hyperglycemia and DKA presents today with concerns for nausea vomiting abdominal pain and possible DKA. Patient was discharged from [facility] yesterday. Is also possible concerns for drug abuse. There was multiple attempts for peripheral IV access were unsuccessful, patient refused IO access and then expressed wishes to leave AGAINST MEDICAL ADVICE. I have long conversation with the patient and managed to convince her to stay as well as agree to a central line. There are also concerns for noncompliance with medication regimen Review of Systems Review of Systems Constitutional: Denies fever or chills [] Eyes: Blurry vision HENT: Sore throat Respiratory: Denies cough or shortness of breath [] Cardiovascular: No pain GI: Yes to abdominal pain, nausea, vomiting. No diarrhea : Denies dysuria or hematuria. No vaginal discharge Musculoskeletal: Denies back pain or joint pain [] Integument: Denies rash or skin lesions [] Neurologic: Denies headache, focal weakness or sensory changes [] Endocrine: Yes to polydipsia All other systems were reviewed and found to be within normal limits, except as documented in this note. Current Medications Current Medications Current Medications Medications (Trade) Dose Ordered Sig/Chevy Start Time Stop Time Status Last Admin Dose Admin Calcium Gluconate 1,000 mg 1X ONCE 11/27/17 01:15 11/27/17 01:16 DC Fentanyl Citrate (Fentanyl 2ml Vial) 50 mcg 1X ONCE 11/27/17 01:30 11/27/17 01:31 DC 11/27/17 01:20 50 MCG Haloperidol Lactate (Haldol) 2 mg 1X ONCE 11/26/17 22:15 11/26/17 22:16 DC 11/26/17 21:55 2 MG Insulin Human Regular (NovoLIN R) 100 unit STK-MED ONCE 11/27/17 00:51 11/27/17 00:52 DC Insulin Human Regular 150 unit/ Sodium Chloride 151.5 ml @ 6.06 mls/hr 1X ONCE 11/27/17 00:30 1/9/18 01:29 11/27/17 01:06 6.06 MLS/HR Sodium Chloride 1,000 ml @ 1,000 mls/hr 1X ONCE 11/27/17 01:30 11/27/17 02:29 Allergies Allergies Allergies Coded Allergies Type Severity Reaction Last Updated Verified acetaminophen Allergy Intermediate HIVES 10/14/17 Yes adhesive tape Allergy Intermediate 10/14/17 Yes Physical Exam Physical Exam Constitutional: Well developed, well nourished, mild distress, non-toxic appearance. Answers questions appropriately, follows commands HENT: Normocephalic, atraumatic, bilateral external ears normal, oropharynx dry , no oral exudates, nose normal. [] Eyes: PERRLA, EOMI, conjunctiva normal, no discharge. [] Neck: Normal range of motion, no tenderness, supple, no stridor. No LAD, no meningeal signs Cardiovascular: Tachycardia, equal pulses, normal perfusion Lungs & Thorax: Bilateral breath sounds clear to auscultation, mild tachypnea, no rales, no wheezing, no rhonchi Abdomen: Bowel sounds normal, soft, diffuse tenderness to palpation without guarding or rebound, no masses, no pulsatile masses. [] Skin: Warm, dry, no erythema, no rash. [] Back: No tenderness, no CVA tenderness. [] Extremities: No tenderness, no DVT, ROM intact, no edema. [] Neurologic: Alert and oriented X 3, normal motor function, normal speech, no focal deficits noted. [] Psychologic: Affect normal, judgement normal, mood normal. [] Current Patient Data Vital Signs Vital Signs Date Time Temp Pulse Resp B/P (MAP) Pulse Ox O2 Delivery O2 Flow Rate FiO2 11/27/17 01:20 28 96 Nasal Cannula 11/26/17 22:10 135 103/75 (84) 11/26/17 20:15 98.3 Lab Results Laboratory Tests Test 11/26/17 23:59 11/27/17 00:30 11/27/17 01:00 Sodium Level 118 mmol/L (136-145) *L Potassium Level 7.4 mmol/L (3.5-5.1) *H Chloride Level 74 mmol/L (98-107) L Carbon Dioxide Level < 5 mmol/L (21-32) *L Anion Gap 39 (6-14) H Blood Urea Nitrogen 39 mg/dL (7-20) H Creatinine 1.8 mg/dL (0.6-1.0) H Estimated GFR (Cockcroft-Gault) 34.0 BUN/Creatinine Ratio 22 (6-20) H Glucose Level 1320 mg/dL (70-99) *H Lactic Acid Level 5.7 mmol/L (0.4-2.0) *H Calcium Level 8.7 mg/dL (8.5-10.1) Total Bilirubin 0.6 mg/dL (0.2-1.0) Aspartate Amino Transferase (AST) 14 U/L (15-37) L Alanine Aminotransferase (ALT) 26 U/L (14-59) Alkaline Phosphatase 127 U/L (46-116) H Total Protein 7.3 g/dL (6.4-8.2) Albumin 3.5 g/dL (3.4-5.0) Albumin/Globulin Ratio 0.9 (1.0-1.7) L White Blood Count 28.6 x10^3/uL (4.0-11.0) #H Red Blood Count 3.68 x10^6/uL (3.50-5.40) Hemoglobin 10.9 g/dL (12.0-15.5) L Hematocrit 33.1 % (36.0-47.0) L Mean Corpuscular Volume 90 fL (79-100) Mean Corpuscular Hemoglobin 30 pg (25-35) Mean Corpuscular Hemoglobin Concent 33 g/dL (31-37) Red Cell Distribution Width 15.5 % (11.5-14.5) H Platelet Count 577 x10^3/uL (140-400) H Neutrophils (%) (Auto) 87 % (31-73) H Lymphocytes (%) (Auto) 6 % (24-48) L Monocytes (%) (Auto) 6 % (0-9) Eosinophils (%) (Auto) 0 % (0-3) Basophils (%) (Auto) 1 % (0-3) Neutrophils # (Auto) 24.8 x10^3uL (1.8-7.7) H Lymphocytes # (Auto) 1.8 x10^3/uL (1.0-4.8) Monocytes # (Auto) 1.7 x10^3/uL (0.0-1.1) H Eosinophils # (Auto) 0.0 x10^3/uL (0.0-0.7) Basophils # (Auto) 0.3 x10^3/uL (0.0-0.2) H Segmented Neutrophils % 77 % (35-66) H Band Neutrophils % 17 % (0-9) H Lymphocytes % 3 % (24-48) L Monocytes % 3 % (0-10) Platelet Estimate Increased (ADEQUATE) Blood pH 7.10 (7.35-7.45) *L Blood Gas PCO2 10 mmHg (35-45) *L Blood Gas PO2 131 mmHg (80-100) H Blood Gas HCO3 3 mmol/L (22-26) L Arterial Bld O2 Saturation (Calc) 98 % (92-99) FiO2 24 % EKG EKG 0044 133, sinus tachycardia, no STEMI, peak T waves[] Radiology/Procedures Radiology/Procedures Preliminary chest x-ray read shows central line in good position, no focal infiltrates, no pneumothorax[] Course & Med Decision Making Course & Med Decision Making Critical care time was 60 minutes exclusive of procedures or teaching patient was monitored for impending deterioration. Patient was discussed with nursing staff admitting team and family. Complicating factors included but not limited to metabolic acidosis, dehydration, drug abuse, Hypotension, infection. Pertinent Labs and Imaging studies reviewed. (See chart for details) Indication: Unable to place peripheral access, pt refusal of IO Consent: verbal per pt Procedure: The patient was positioned appropriately and the skin over the right IJ was central line placement. Local anesthesia was1% lidocaine. A large bore needle was used to identify the vein as well as US. A guide wire was then inserted into the vein through the needle. 3 lumen catheter was then inserted into the vessel over the guide wire using the Seldinger technique. All ports showed good, free flowing blood return and were flushed with saline solution. The catheter was then securely fastened to the skinwith sutures and covered with a sterile dressing. A post procedure X-ray confirmed proper placement. The patient tolerated the procedure well. Complications:none Total time 20 minutes [] Dragon Disclaimer Dragon Disclaimer This electronic medical record was generated, in whole or in part, using a voice recognition dictation system. Departure Departure: Impression: Primary Impression: Diabetic ketoacidosis Additional Impressions: Hyperkalemia Dehydration Metabolic acidosis Leukocytosis Disposition: ADMITTED INPATIENT Admitting Physician: Justin Pereira Condition: CRITICAL Referrals: ESVIN ROLLINS (PCP) Problem Qualifiers Lebron MARTIN MD Nov 27, 2017 01:38
[2017-11-27] MEDS ORDERED: ONDANSETRON PF 4 MG/2 ML VIAL. IV PRN (02:00)
[2017-11-27 02:26] LABS: CALCIUM 8.2 mg/dL (8.5-10.1); CREATININE 1.8 mg/dL (0.6-1.0); POTASSIUM 5.1 mmol/L (3.5-5.1)
--- NOTE | 2017-11-27 02:30 | NUR ---
Pt admitted via cart to ICU bed 4 from ER. Pt presents A&OX3, denies any complaints. Ambulated to bed with only stand by assistance. pt states she is already feeling better. a full complete assessment and history obtained. oriented pt to unit, nurse, call light and plan of care. V/U stated. will monitor pt and FSBS closely.
[2017-11-27] MEDS: IV NORMAL SALINE 1,000ML 1,000 ML IV SCH ×4 (02:52→05:08)
--- NOTE | 2017-11-27 07:32 | RAD ---
Indication: Central line placement Technique: Portable upright chest x-ray Comparison: Previous study from 11/21 Findings: Right-sided central venous line is noted with tip in the SVC. Heart is normal in size. Lungs are clear. No pneumothorax or pleural effusion. Visualized bony thorax is within normal limits. Impression: No acute cardiopulmonary process. Central venous line in appropriate position.
[2017-11-27 08:09] LABS: CALCIUM 7.5 mg/dL (8.5-10.1); CREATININE 0.9 mg/dL (0.6-1.0); GFR 75.7; POTASSIUM 3.9 mmol/L (3.5-5.1)
[2017-11-27 08:25] LABS: AMPHETAMINE/METHAMPHETAMINE NEG (NEG); BARBITURATES NEG (NEG); BENZODIAZEPINES NEG (NEG); CANNABINOIDS NEG (NEG); COCAINE NEG (NEG); METHADONE NEG (NEG); OPIATES NEG (NEG); PHENCYCLIDINE NEG (NEG)
[2017-11-27 08:33] LABS: BILIRUBIN,URINE NEG (NEG); CLARITY,URINE HAZY; COLOR,URINE YELLOW; GLUCOSE,URINE 500 mg/dL (NEG)
[2017-11-27 08:34] LABS: NITRITE,URINE NEG (NEG); UROBILINOGEN,URINE 0.2 mg/dL (0.2 mg/dL)
[2017-11-27 08:35] LABS: BACTERIA,URINE 0 /HPF (0-FEW); GRANULAR CASTS,URINE FEW /HPF; HYALINE CASTS, URINE OCC /HPF; SQUAMOUS EPITHELIAL CELL,UR FEW /LPF
--- NOTE | 2017-11-27 08:53 | NUR ---
PT requesting food at this time. Dr Does not want patient to eat while on insulin gtt. PT blood sugar 168. Judy CIRCULAR KNITTER HELPER CMSRN [place]-
[2017-11-27] MEDS ORDERED: IV DEXTROSE 5 %-0.45 % NACL 1,000 ML IV SCH (09:30)
[2017-11-27] MEDS: KETOROLAC 30 MG/ML VIAL. IV PRN ×3 (09:51→21:35)
[2017-11-27 09:57] LABS: MONONUCLEOSIS PATIENT NEGATIVE (NEGATIVE)
--- NOTE | 2017-11-27 12:59 | HP ---
ADMIT DATE: 11/27/2017 REASON FOR ADMISSION: Diabetic ketoacidosis, recurrent nausea and vomiting and abdominal pain. HISTORY OF PRESENT ILLNESS: This is a 27-year-old female with brittle uncontrolled type 1 diabetes, severe gastroparesis, chronic hypomagnesemia who in the last month and a week has been in the Emergency Room or admitted 7 times. She was admitted at [facility] over the weekend, was discharged on Monday. She was sent to [facility] by Dr. Pereira for severe abdominal pain. She was seen by the gastrointestinal nurse practitioner in consultation with GI who basically stated it was due to her gastroparesis and recommended IV Pepcid and Reglan. She was supposed to stay in the hospital until Monday to get a Port-A-Cath placed; however, she left on Monday and was discharged by Dr. Pereira to do this as an outpatient. PAST MEDICAL HISTORY: Poorly controlled type 1 diabetes with multiple frequent admissions for DKA, gastroparesis, chronic abdominal pain, chronic hypomagnesemia, methamphetamine abuse, adjustment disorder. PAST SURGICAL HISTORY: Right ankle biopsy, right foot surgery, right eye surgery x 3, right ear surgery x 3, Port-A-Cath placement and removal for infection, I and D of an axillary abscess and chest tube placement. FAMILY HISTORY: Has a brother with bad ulcers and a sister who had gallbladder disease. SOCIAL HISTORY: No longer smokes. No alcohol. Crystal meth and last use was 3 or 4 weeks ago. REVIEW OF SYSTEMS: Positive for abdominal pain, hyperglycemia, nausea and vomiting. Apparently, she stated she lost 19 pounds. Also sore throat. No fever. OBJECTIVE: VITAL SIGNS: Blood pressure 114/77, pulse 111, respirations 20, pulse ox 97% on room air, temperature 98, earlier. VITAL SIGNS: Revealed hypotension as well as severe tachycardia of 145. GENERAL: The patient's color is pale. HEENT: Her eyes were clear. Nose patent. Throat: Mild erythema in the posterior pharynx. NECK: Two large anterior cervical lymph nodes. LUNGS: Clear. CARDIOVASCULAR: Regular rhythm and rate. ABDOMEN: Soft, nontender. Bowel sounds are positive. EXTREMITIES: Without edema. LABORATORY DATA: White blood cell count is 28.6 with bandemia with a left shift. ABG: pH 7.10, pCO2 of 10. Admission Chemistry: Sodium 129, CO2 of 6, glucose of 850, potassium of 5.1. Repeat sodium 139, potassium 3.9. Magnesium was not done. Drug screen was negative. Urinalysis positive for ketones, 1-4 white cells, negative nitrites, negative leukocyte esterase. Group A strep is negative and Monospot negative. ASSESSMENT: 1. Recurrent diabetic ketoacidosis. 2. Hyponatremia. 3. Systemic inflammatory response syndrome. 4. Leukocytosis without infectious etiology. 5. Chronic hypomagnesemia. 6. Severe gastroparesis. PLAN: Insulin drip, IV antiemetics as well as Reglan. BARRY MORELAND DO DR: DONNA/regina JOB#: [id number] / [id number]
[2017-11-27] MEDS ORDERED: INSULIN ASPART 300 UNITS/3 ML INSULN.PEN SQ PRN (16:00)
[2017-11-27] MEDS: METOCLOPRAMIDE 10 MG TABLET PO SCH (21:35)
[2017-11-27] MEDS: INSULIN DETEMIR 300 UNITS/3 ML INSULN.PEN. SQ SCH (21:38)
[2017-11-28 01:14] VITALS: BP 106/63
[2017-11-28 03:13] VITALS: BP 98/62
[2017-11-28] MEDS: KETOROLAC 30 MG/ML VIAL. IV PRN (06:02)
[2017-11-28 06:25] VITALS: BP 111/79
[2017-11-28 06:53] LABS: CALCIUM 7.9 mg/dL (8.5-10.1); CREATININE 0.6 mg/dL (0.6-1.0); GFR 120.8; POTASSIUM 3.3 mmol/L (3.5-5.1)
[2017-11-28 07:17] LABS: HEMATOCRIT 26.7 % (36.0-47.0); HEMOGLOBIN 8.5 g/dL (12.0-15.5); MEAN CORPUSCULAR HEMOGLOBIN 29 pg (25-35); MEAN CORPUSCULAR HGB CONC 32 g/dL (31-37); MEAN CORPUSCULAR VOLUME 90 fL (79-100); PLATELET COUNT 355 x10^3/uL (140-400); RED BLOOD COUNT 2.97 x10^6/uL (3.50-5.40); RED CELL DISTRIBUTION WIDTH 15.8 % (11.5-14.5); WHITE BLOOD COUNT 8.2 x10^3/uL (4.0-11.0)
[2017-11-28] MEDS: INSULIN DETEMIR 300 UNITS/3 ML INSULN.PEN. SQ SCH (08:04)
[2017-11-28] MEDS: METOCLOPRAMIDE 10 MG TABLET PO SCH (08:12)
[2017-11-28] MEDS ORDERED: MAGNESIUM OXIDE 400 MG TABLET PO SCH (09:00)
[2017-11-28] MEDS ORDERED: POTASSIUM CHLORIDE 20 MEQ TABLET.ER. PO ONE (09:00)
[2017-11-28 09:09] LABS: % BANDS 1 % (0-9); % EOS 1 % (0-5); % LYMPHS 30 % (24-48); % MONOS 1 % (0-10); % SEGS 67 % (35-66); PLT ESTIMATE ADEQUATE (ADEQUATE)
--- NOTE | 2017-11-28 10:08 | NUR ---
pt DC to home. PT's mother has been giving patient insulin. Mother was under the impression that patient had to eat to take insulin even when blood sugar high. Completed extensive sick management teaching with mother and patients. Gave sliding scale guide to go by, explained that if patient is vomiting it is because her sugar is too high. Needs to give patient insulin, and recheck every hour until blood sugar is in 200's Becka GERBER Addendum: 11/28/17 at 1010 by MANDEEP BULL RN Central line removed using sterile technique. Sutures cut and removed pressure held times 2 minutes. Becka GERBER
== END 2017-11-28 10:11 | disposition home or self-care (01) | DRG 638 ==
LOC: ER 20:15 → ICU 11-27 03:14
PROVIDERS: ADMIT Internal Medicine; ATTEND Internal Medicine
PROC: 02HV33Z Insertion of Infusion Device into Superior Vena Cava, Percutaneous Approach (ICD-10-PCS; principal; 2017-11-27)
PROC: B548ZZA Ultrasonography of Superior Vena Cava, Guidance (ICD-10-PCS; 2017-11-27)
DX: E10.10 Type 1 diabetes mellitus with ketoacidosis without coma (principal); E87.1 Hypo-osmolality and hyponatremia; R65.10 Systemic inflammatory response syndrome (SIRS) of non-infectious origin without acute organ dysfunction; K31.84 Gastroparesis; E10.43 Type 1 diabetes mellitus with diabetic autonomic (poly)neuropathy; E83.42 Hypomagnesemia; E87.5 Hyperkalemia; F41.9 Anxiety disorder, unspecified; E86.0 Dehydration; G89.29 Other chronic pain; Z87.891 Personal history of nicotine dependence; F15.11 Other stimulant abuse, in remission; F43.20 Adjustment disorder, unspecified
CPT/HCPCS: 36415; 36556; 36600; 71045; 80048; 80053; 80307; 81001; 82803; 82947; 83605; 83735; 85007; 85025; 86308; 87040; 87070; 87880; 93005; 96361; 96372; 96374; 96375; J1630; J1815; J1885; J3010; J8597; 99291-25; G0479; J7030

== ENCOUNTER 2017-12-17 21:13 | Emergency (ER) | payer SELFPAY ==
[2017-12-17] MEDS ORDERED: IV NORMAL SALINE 1,000ML 1,000 ML IV SCH (21:50)
[2017-12-17] MEDS ORDERED: INSULIN REGULAR 150 UNIT in 0.9 % SODIUM CHLORIDE 150ML 150 ML IV ONE (22:00)
[2017-12-17] MEDS ORDERED: INSULIN REGULAR 100 UNIT/ML 10ML VIAL. IV ONE (22:00)
[2017-12-17 22:20] VITALS: BP 134/93
--- NOTE | 2017-12-17 22:52 | ED.ADGEN ---
Past History Past Medical History: Diabetes Additional Past Medical Histor: pt reports several admissions for "high blood sugar" Past Surgical History: No Surgical History Smoking: Less than 1pk/day Alcohol Use: None Drug Use: None Adult General Chief Complaint Chief Complaint " .. My sugars have been really high.. more 500 .. but my vision is off... I just want to be checked out..." HPI HPI Patient is a 27 year old female who presents with complaints of blurred vision and glucose levels to high to read ( more 500) at home. Pt. states she has not presented to the emergency department past 2 weeks. A shunt visual exam shows essentially no acute fundi changes such as bleed. No consensual photophobia. Low no limbus injection. No field deficits appreciated. Patient able to read typewritten paper. There is accommodation. Pupils equal react to light. Extraocular muscles are true muscles intact. While waiting for visual acuity checks and lab draws patient apparently left the emergency department without notifying nursing staff. Patient has a known history of noncompliance of meds and illicit drug use. Patient had multiple admissions for hyperglycemia and other diabetes sequela. Patient has not had ophthalmology exam since age 17. Patient now following with Dr. Collazo. Review of Systems Review of Systems Constitutional: Denies fever or chills [] Eyes: Complains she has a change in visual acuity. Denies, redness, or eye pain [] HENT: Denies nasal congestion or sore throat [] Respiratory: Denies cough or shortness of breath [] Cardiovascular: No additional information not addressed in HPI [] GI: Denies abdominal pain, nausea, vomiting, bloody stools or diarrhea [] : Denies dysuria or hematuria [] Musculoskeletal: Denies back pain or joint pain [] Integument: Denies rash or skin lesions [] Neurologic: Denies headache, focal weakness or sensory changes [] Endocrine: Complaints of polyuria or polydipsia [] All other systems were reviewed and found to be within normal limits, except as documented in this note. Family History Family History Diabetes Current Medications Current Medications Current Medications Medications (Trade) Dose Ordered Sig/Chevy Start Time Stop Time Status Last Admin Dose Admin Insulin Human Regular (NovoLIN R) 10 unit 1X ONCE 12/17/17 22:00 12/17/17 22:01 DC Insulin Human Regular 150 unit/ Sodium Chloride 151.5 ml @ 0 mls/hr 1X ONCE 12/17/17 22:00 12/17/17 22:01 DC Sodium Chloride 1,000 ml @ 1,000 mls/hr Q1H 12/17/17 21:50 12/17/17 22:49 DC See nursing for home meds Allergies Allergies Allergies Coded Allergies Type Severity Reaction Last Updated Verified acetaminophen Allergy Intermediate HIVES 10/14/17 Yes adhesive tape Allergy Intermediate 10/14/17 Yes Physical Exam Physical Exam Constitutional: no acute distress, non-toxic appearance. [] HENT: Normocephalic, atraumatic, bilateral external ears normal, oropharynx dry , no oral exudates, nose normal. [Eye exam As per history of present illness Eyes: PERRLA, EOMI, conjunctiva normal, no discharge. [] Neck: Normal range of motion, no tenderness, supple, no stridor. [] Central line puncture mahnaz right-sided neck- scarring Cardiovascular:Tachycarida Heart rate regular rhythm, no murmur [] Lungs & Thorax: Bilateral breath sounds equal at apexes scattered wheezes auscultation [] Abdomen: Bowel sounds normal, soft, mild generalized tenderness, no masses, no pulsatile masses. [] Skin: Warm, dry, no erythema, no rash. [] Back: No tenderness, no CVA tenderness. [] Extremities: No tenderness, no cyanosis, no clubbing, ROM intact, no edema. [] Neurologic: Alert and oriented X 3, normal motor function, normal sensory function, no focal deficits noted. [] Psychologic: Affect anxious, judgement poor insight to her disease process, mood normal. [] Current Patient Data Vital Signs Vital Signs Date Time Temp Pulse Resp B/P (MAP) Pulse Ox O2 Delivery O2 Flow Rate FiO2 12/17/17 22:20 97.6 94 16 Room Air EKG EKG [] Radiology/Procedures Radiology/Procedures [] Course & Med Decision Making Course & Med Decision Making Pertinent Labs and Imaging studies reviewed. (See chart for details)- Note pt. left department without notification of nursing staff. [] Final Impression Final Impression 1. Complaints of blurred vision 2. History of elevated glucose levels more than 500s at home 3. Pt. left ED Before completing workup.[] 4. Past hx Non-compliance 5. Past hx of Polysubstance Abuse 6. Past hx of multiple admits for DKA Problems: Annelise Disclaimer Dragon Disclaimer This electronic medical record was generated, in whole or in part, using a voice recognition dictation system. YELENA HENRY MD Dec 17, 2017 22:52
== END 2017-12-17 22:15 | disposition left against medical advice (07) ==
LOC: ER 21:13
DX: H53.8 Other visual disturbances (principal); E11.10 Type 2 diabetes mellitus with ketoacidosis without coma; Z91.14 Patient's other noncompliance with medication regimen; F19.10 Other psychoactive substance abuse, uncomplicated; F17.200 Nicotine dependence, unspecified, uncomplicated; Z88.6 Allergy status to analgesic agent; Z88.8 Allergy status to other drugs, medicaments and biological substances
CPT/HCPCS: 99281

== ENCOUNTER 2017-12-18 16:31 | Emergency (ER) | payer SELFPAY ==
[2017-12-18] MEDS ORDERED: IV NORMAL SALINE 1,000ML 1,000 ML IV SCH ×3 (17:06→20:30)
--- NOTE | 2017-12-18 17:11 | PHYS DOC ---
Past History Past Medical History: Diabetes Additional Past Medical Histor: pt reports several admissions for "high blood sugar" Past Surgical History: No Surgical History Smoking: Less than 1pk/day Alcohol Use: None Drug Use: None Adult General Chief Complaint Chief Complaint: ABDOMINAL PAIN [facility] 27-year-old male patient with history of type 1 diabetes and frequent emergency room visits and DKA complaining of left-sided abdominal pain for the last 4 days as a constant aching pain without radiation. Patient complaining of abdominal distention without nausea and vomiting, diarrhea and constipation, urinary symptom. Patient states her blood sugar was very comfortable and it was 162 hours prior to arrival but she didn't take her insulin today. Review of Systems Review of Systems Constitutional: Denies fever or chills [] Eyes: Denies change in visual acuity, redness, or eye pain [] HENT: Denies nasal congestion or sore throat [] Respiratory: Denies cough or shortness of breath [] Cardiovascular: No additional information not addressed in HPI [] GI: Denies nausea, vomiting, bloody stools or diarrhea , reports abdominal pain [] : Denies dysuria or hematuria [] Musculoskeletal: Denies back pain or joint pain [] Integument: Denies rash or skin lesions [] Neurologic: Denies headache, focal weakness or sensory changes [] Endocrine: Denies polyuria or polydipsia [] All other systems were reviewed and found to be within normal limits, except as documented in this note. Allergies Allergies Allergies Coded Allergies Type Severity Reaction Last Updated Verified acetaminophen Allergy Intermediate HIVES 10/14/17 Yes adhesive tape Allergy Intermediate 10/14/17 Yes Physical Exam Physical Exam Constitutional: Well developed, well nourished, no acute distress, non-toxic appearance. [] HENT: Normocephalic, atraumatic, bilateral external ears normal, oropharynx moist, no oral exudates, nose normal. [] Eyes: PERRLA, EOMI, conjunctiva normal, no discharge. [] Neck: Normal range of motion, no tenderness, supple, no stridor. [] Cardiovascular:Heart rate regular rhythm, no murmur [] Lungs & Thorax: Bilateral breath sounds clear to auscultation [] Abdomen: Bowel sounds normal, soft, no tenderness, no masses, no pulsatile masses, mild abdominal distention without tenderness. [] Skin: Warm, dry, no erythema, no rash. [] Back: No tenderness, no CVA tenderness. [] Extremities: No tenderness, no cyanosis, no clubbing, ROM intact, no edema. [] Neurologic: Alert and oriented X 3, normal motor function, normal sensory function, no focal deficits noted. [] Psychologic: Affect normal, judgement normal, mood normal. [] Current Patient Data Lab Results Laboratory Tests Test 12/18/17 16:50 Glucose (Fingerstick) 410 mg/dL (70-99) H EKG EKG [] Radiology/Procedures Radiology/Procedures [] Course & Med Decision Making Course & Med Decision Making Pertinent Labs are pending. Patient care transferred to Dr. Melendez at 1800. ( See chart for details) []Report received on patient well-known to me at 1800 shift change. Patient is 27-year-old very brittle diabetic comes in with left-sided abdominal pain and glucose in the 400s but non-acidotic. On physical exam she has exquisite right upper quadrant tenderness and generalized abdominal distention which is significant, also elevated lipase. Will check CT and ultrasound. PATIENT: CHALO RAYMUNDO ACCOUNT: [id number] : 1990 LOCATION: ER AGE: 27 SEX: F EXAM STATUS: REG ER ORD. PHYSICIAN: CEDRIC MELENDEZ DO REASON: elev lipase, LUQ/RUQ pain, distension, poss GS pancreat PROCEDURE: CT ABD PELV W/ IV CONTRST ONLY Indication: Elevated lipase. Upper abdominal pain and distention. Technique: Axial images and coronal and sagittal reformatted images are provided. 75 mL of intravenous Omnipaque 300 was administered without complication. Comparison is from October 14, 2017. One or more of the following individualized dose reduction techniques were utilized for this examination: 1. Automated exposure control 2. Adjustment of the mA and/or kV according to patient size 3. Use of iterative reconstruction technique Findings: Lung bases are clear. There is no pleural effusion. Heart is not enlarged. Liver, gallbladder, spleen, and adrenals are unremarkable. The pancreas homogeneously enhances and there is no peripancreatic stranding or fluid collection. Kidneys are symmetrically perfused. Areas of cortical scarring in the left kidney are noted, there is no evidence of an acute pyelonephritis although please correlate with UA/UC. Aorta is normal caliber. Lack of oral contrast limits evaluation of bowel. There is no dilated small bowel loop or air-fluid level. Moderate amount of stool is noted in the colon. Normal appendix is noted. Bladder is unremarkable. There is no adnexal mass. Bony structures are intact. IMPRESSION: 1. No acute abdominal findings. 2. Areas of presumed cortical scarring in the left kidney. No obvious acute pyelonephritis although correlation with UA/UC should be considered. Electronically signed by: Roni Mcnamara MD (12/18/2017 8:20 PM) [place] [id number] DICTATED AND SIGNED BY: RONI MCNAMARA MD DATE: 12/18/172012 CC: IDALMIS COLLAZO; CEDRIC MELENDEZ DO ~ PATIENT: CHALO RAYMUNDO ACCOUNT: [id number] : 1990 LOCATION: ER AGE: 27 SEX: F EXAM STATUS: REG ER ORD. PHYSICIAN: CEDRIC MELENDEZ DO REASON: elev lip, +boudreaux PROCEDURE: ABDOMEN LTD Limited abdominal ultrasound December 18, 2017 INDICATION: Elevated lipase and abdominal pain. COMPARISON: CT abdomen/pelvis October 14, 2017, December 18, 2017 TECHNIQUE: Sonographic imaging of the right upper quadrant was performed utilizing grayscale and color Doppler. FINDINGS: The liver is normal in echogenicity without evidence for focal mass lesion. No intrahepatic or extrahepatic biliary ductal dilatation. Common bile duct measures 5 mm. There is no hepatomegaly. Gallbladder is normal in appearance without evidence for gallstones, gallbladder wall thickening or pericholecystic fluid. Negative sonographic Boudreaux sign. Pancreas is normal in appearance as visualized. IVC is patent. Right kidney measures 12.6 x 6.8 x 5.1 cm and is normal in appearance. No hydronephrosis, renal calculi or suspicious renal mass. There is no free fluid in the right upper quadrant. IMPRESSION: No sonographic evidence for cholelithiasis. Otherwise, negative right upper quadrant ultrasound. Electronically signed by: Alexis Osorio MD (12/18/2017 8:49 PM) [facility] DICTATED AND SIGNED BY: ALEXIS OSORIO MD DATE: 12/18/172046 CC: IDALMIS COLLAZO; CEDRIC MELENDEZ DO ~ Every 2 hours fingerstick blood sugar testing shows persistent improvement from 443, to 258, 284 at the time of discharge. Urinalysis positive for glucose no ketones no anion gap acetone was negative. Although the patient's lipase was mildly elevated CT and ultrasound evaluations have been unremarkable. On recheck the patient is smiling and happy states she's feeling fine and has been asymptomatic since shortly after ED arrival. She denies any new or progressive symptoms and is wanting to go home. I see no evidence of any emergent medical condition requiring hospitalization at this point. I did discuss departure instructions [id number] and provided them in written format. I discussed close PCP follow-up as the patient will likely need further outpatient evaluation. Discussed signs and symptoms to monitor as well as indications for urgent return to the department. Patient's questions were answered to her satisfaction and she expressed agreement and understanding with the treatment plan. Dragon Disclaimer Dragon Disclaimer This electronic medical record was generated, in whole or in part, using a voice recognition dictation system. Departure Departure: Impression: Primary Impression: Abdominal pain Additional Impressions: Uncontrolled diabetes mellitus Abdominal distension Elevated lipase Disposition: HOME, SELF-CARE Admitting Physician: Other (Idalmis Collazo) Condition: IMPROVED Referrals: IDALMIS COLLAZO (PCP) Patient Instructions: Abdominal Pain, Lipase Additional Instructions: Please review the patient education materials given by ED staff. As discussed, no emergent condition apparent from tonight's evaluation. Continue the great job your doing with ADA diet compliance and controlling her insulin. Continue to abstain from illicit substances. Follow-up with your doctor in 1-2 days for recheck and further outpatient evaluation if necessary. Return to ED with new or changing symptoms. Problem Qualifiers ISRAEL WHITT MD Dec 18, 2017 17:11 CEDRIC MELENDEZ DO Dec 18, 2017 20:29
[2017-12-18] MEDS ORDERED: 0.9 % SODIUM CHLORIDE 10 ML DISP.SYRIN. IV PRN (17:15)
[2017-12-18] MEDS ORDERED: INSULIN REGULAR 100 UNIT/ML 10ML VIAL. IV ONE (17:30)
[2017-12-18 17:56] LABS: BASO % 0 % (0-3); EOS # 0.6 x10^3/uL (0.0-0.7); EOS % 8 % (0-3); HEMATOCRIT 34.4 % (36.0-47.0); HEMOGLOBIN 11.6 g/dL (12.0-15.5); LYMPH # 2.6 x10^3/uL (1.0-4.8); LYMPH % 35 % (24-48); MEAN CORPUSCULAR HEMOGLOBIN 30 pg (25-35); MEAN CORPUSCULAR HGB CONC 34 g/dL (31-37); MEAN CORPUSCULAR VOLUME 88 fL (79-100); MONO # 0.4 x10^3/uL (0.0-1.1); MONO % 5 % (0-9); NEUT # 3.7 x10^3uL (1.8-7.7); NEUT % 51 % (31-73); PLATELET COUNT 445 x10^3/uL (140-400); RED BLOOD COUNT 3.92 x10^6/uL (3.50-5.40); RED CELL DISTRIBUTION WIDTH 15.1 % (11.5-14.5); WHITE BLOOD COUNT 7.2 x10^3/uL (4.0-11.0)
[2017-12-18 18:08] LABS: ALBUMIN 3.5 g/dL (3.4-5.0); ALBUMIN/GLOBULIN RATIO 0.9 (1.0-1.7); CALCIUM 8.8 mg/dL (8.5-10.1); CREATININE 0.7 mg/dL (0.6-1.0); GFR 101.1; POTASSIUM 4.7 mmol/L (3.5-5.1); TOTAL BILIRUBIN 0.1 mg/dL (0.2-1.0); TOTAL PROTEIN 7.4 g/dL (6.4-8.2)
[2017-12-18 18:13] LABS: BILIRUBIN,URINE NEG (NEG); CLARITY,URINE CLEAR; COLOR,URINE STRAW; GLUCOSE,URINE >=1000 mg/dL (NEG); NITRITE,URINE NEG (NEG); UROBILINOGEN,URINE 0.2 mg/dL (0.2 mg/dL)
[2017-12-18 18:33] LABS: AMPHETAMINE/METHAMPHETAMINE NEG (NEG); BARBITURATES NEG (NEG); BENZODIAZEPINES NEG (NEG); CANNABINOIDS NEG (NEG); COCAINE NEG (NEG); METHADONE NEG (NEG); OPIATES NEG (NEG); PHENCYCLIDINE NEG (NEG)
[2017-12-18] MEDS ORDERED: ONDANSETRON PF 4 MG/2 ML VIAL. IV ONE (19:15)
[2017-12-18] MEDS: MORPHINE SULFATE 4 MG/ML DISP.SYRIN. IV/SQ PRN ×2 (19:21→20:50)
[2017-12-18 19:27] LABS: U PREG PATIENT NEGATIVE (NEG)
[2017-12-18] MEDS ORDERED: IOHEXOL 300 MG/ML 75 ML VIAL. IV ONE (19:30)
--- NOTE | 2017-12-18 20:23 | RAD ---
Indication: Elevated lipase. Upper abdominal pain and distention. Technique: Axial images and coronal and sagittal reformatted images are provided. 75 mL of intravenous Omnipaque 300 was administered without complication. Comparison is from October 14, 2017. One or more of the following individualized dose reduction techniques were utilized for this examination: 1. Automated exposure control 2. Adjustment of the mA and/or kV according to patient size 3. Use of iterative reconstruction technique Findings: Lung bases are clear. There is no pleural effusion. Heart is not enlarged. Liver, gallbladder, spleen, and adrenals are unremarkable. The pancreas homogeneously enhances and there is no peripancreatic stranding or fluid collection. Kidneys are symmetrically perfused. Areas of cortical scarring in the left kidney are noted, there is no evidence of an acute pyelonephritis although please correlate with UA/UC. Aorta is normal caliber. Lack of oral contrast limits evaluation of bowel. There is no dilated small bowel loop or air-fluid level. Moderate amount of stool is noted in the colon. Normal appendix is noted. Bladder is unremarkable. There is no adnexal mass. Bony structures are intact. IMPRESSION: 1. No acute abdominal findings. 2. Areas of presumed cortical scarring in the left kidney. No obvious acute pyelonephritis although correlation with UA/UC should be considered. Electronically signed by: Roni Mcnamara MD (12/18/2017 8:20 PM) [id number]
--- NOTE | 2017-12-18 20:52 | RAD ---
Limited abdominal ultrasound December 18, 2017 INDICATION: Elevated lipase and abdominal pain. COMPARISON: CT abdomen/pelvis October 14, 2017, December 18, 2017 TECHNIQUE: Sonographic imaging of the right upper quadrant was performed utilizing grayscale and color Doppler. FINDINGS: The liver is normal in echogenicity without evidence for focal mass lesion. No intrahepatic or extrahepatic biliary ductal dilatation. Common bile duct measures 5 mm. There is no hepatomegaly. Gallbladder is normal in appearance without evidence for gallstones, gallbladder wall thickening or pericholecystic fluid. Negative sonographic Boudreaux sign. Pancreas is normal in appearance as visualized. IVC is patent. Right kidney measures 12.6 x 6.8 x 5.1 cm and is normal in appearance. No hydronephrosis, renal calculi or suspicious renal mass. There is no free fluid in the right upper quadrant. IMPRESSION: No sonographic evidence for cholelithiasis. Otherwise, negative right upper quadrant ultrasound. Electronically signed by: Etelvina Motta MD (12/18/2017 8:49 PM) [employer]
[2017-12-18 21:45] VITALS: BP 109/81
== END 2017-12-18 21:47 | disposition home or self-care (01) ==
LOC: ER 16:31
DX: R10.9 Unspecified abdominal pain (principal); R14.0 Abdominal distension (gaseous); E10.10 Type 1 diabetes mellitus with ketoacidosis without coma; F17.200 Nicotine dependence, unspecified, uncomplicated; Z88.6 Allergy status to analgesic agent; Z88.8 Allergy status to other drugs, medicaments and biological substances
CPT/HCPCS: 36415; 74177; 76705; 80053; 80307; 81003; 81025; 82010; 82150; 82550; 82947; 83690; 85025; 96361; 96374; 96375; 96376; 99285; J1815; J2270; Q9967; G0479; J7030

== ENCOUNTER 2017-12-20 12:25 | Inpatient (IN) | payer SELFPAY ==
[~2017-12-20] VITALS: Ht 170.2 cm; Wt 60.0 kg
[2017-12-20] MEDS ORDERED: IV NORMAL SALINE 1,000ML 1,000 ML IV SCH (12:37)
[2017-12-20] MEDS ORDERED: 0.9 % SODIUM CHLORIDE 10 ML DISP.SYRIN. IV PRN (12:45)
[2017-12-20] MEDS ORDERED: ONDANSETRON PF 4 MG/2 ML VIAL. IV ONE (12:45)
[2017-12-20] MEDS ORDERED: ONDANSETRON ODT 4 MG TAB.RAPDIS PO ONE (13:00)
--- NOTE | 2017-12-20 13:10 | PHYS DOC ---
Past History Past Medical History: Diabetes Additional Past Medical Histor: pt reports several admissions for "high blood sugar" Past Surgical History: No Surgical History Smoking: Less than 1pk/day Alcohol Use: None Drug Use: None Adult General Chief Complaint Chief Complaint: NAUSEA/VOMITING/[facility] HPI Patient is a pleasant 27-year-old female with a known history of gastritis, GERD, gastroparesis, and diabetes who is had several admissions for DKA and hyperglycemia in the past 6 months who presents with intractable nausea and vomiting that began this morning as she woke from sleep. Patient was seen here 2 days ago for very similar presentation with distended abdomen, nausea, vomiting and high blood sugars. Patient says she is on a sliding scale insulin dose of Levemir and NovoLog and she needs she took 15 mg of NovoLog and 10 mg of Levemir just prior to arrival when she noticed her sugars were over 400. On arrival here patient sugars are still over 400 patient is having intractable nausea and vomiting. She has diffuse abdominal pain with no specific location of predominance. Patient denies any fevers, chills, dizziness, lightheadedness, chest pain but is having nausea and intractable. She's had too many episodes to count nonbloody nonbilious and no diarrhea. Patient says the pain is worse with direct pressure and movement of the abdominal wall as well as vomiting. She has had, no recent travel outside the country no recent antibiotics. Review of Systems Review of Systems Constitutional: Denies fever or chills [] Eyes: Denies change in visual acuity, redness, or eye pain [] HENT: Denies nasal congestion or sore throat [] Respiratory: Denies cough or shortness of breath [] Cardiovascular: No additional information not addressed in HPI [] GI: Positive for diffuse abdominal pain nausea vomiting without bloody stools or diarrhea : Denies dysuria or hematuria [] Musculoskeletal: Denies back pain or joint pain [] Integument: Denies rash or skin lesions [] Neurologic: Denies headache, focal weakness or sensory changes [] Endocrine: Denies polyuria or polydipsia [] All other systems were reviewed and found to be within normal limits, except as documented in this note. Current Medications Current Medications Current Medications Medications (Trade) Dose Ordered Sig/Chevy Start Time Stop Time Status Last Admin Dose Admin Hydromorphone HCl (Dilaudid) 1 mg PRN Q15MIN PRN 12/20/17 12:45 Ondansetron HCl (Zofran Odt) 4 mg 1X ONCE 12/20/17 13:00 12/20/17 13:01 UNV 12/20/17 13:05 4 MG Ondansetron HCl (Zofran) 4 mg 1X ONCE 12/20/17 12:45 12/20/17 12:46 DC Sodium Chloride (Normal Saline Flush) 10 ml QSHIFT PRN 12/20/17 12:45 Allergies Allergies Allergies Coded Allergies Type Severity Reaction Last Updated Verified acetaminophen Allergy Intermediate HIVES 10/14/17 Yes adhesive tape Allergy Intermediate 10/14/17 Yes Physical Exam Physical Exam Constitutional: Well developed, well nourished, no acute distress, non-toxic appearance. [] HENT: Normocephalic, atraumatic, bilateral external ears normal, oropharynx moist, no oral exudates, nose normal. [] Eyes: PERRLA, EOMI, conjunctiva normal, no discharge. [] Neck: Normal range of motion, no tenderness, supple, no stridor. [] Cardiovascular:Heart rate regular rhythm, no murmur [] Lungs & Thorax: Bilateral breath sounds clear to auscultation [] Abdomen: Bowel sounds normal, soft, no tenderness, no masses, no pulsatile masses. [] Skin: Warm, dry, no erythema, no rash. [] Back: No tenderness, no CVA tenderness. [] Extremities: No tenderness, no cyanosis, no clubbing, ROM intact, no edema. [] Neurologic: Alert and oriented X 3, normal motor function, normal sensory function, no focal deficits noted. [] Psychologic: Affect normal, judgement normal, mood normal. [] Current Patient Data Vital Signs Vital Signs Date Time Temp Pulse Resp B/P (MAP) Pulse Ox O2 Delivery O2 Flow Rate FiO2 12/20/17 12:52 97.8 132 18 99 Room Air Lab Results Laboratory Tests Test 12/20/17 12:35 Glucose (Fingerstick) 409 mg/dL (70-99) H EKG EKG []EKG timed and read by me at 12:48 AM demonstrate a heart rate of 126 this is sinus tachycardia there is a P wave there were QRS there is a OH interval 116 is normal, QRS width of 80 which is normal, QTC is prolonged at 513. As an abnormal EKG without ST segment T-wave changes just with acute cord ischemia or hyperkalemia Radiology/Procedures Radiology/Procedures [] Course & Med Decision Making Course & Med Decision Making Pertinent Labs and Imaging studies reviewed. (See chart for details) She presents with hyperglycemia and intractable nausea and vomiting with abdominal pain. She's been seen in our emergency department for multiple issues of the same caliber. EKG is unremarkable, patient's high potassium is improved significantly from 405 to 279. She's been given 1L of normal saline as part of a bolus lactic acid was drawn, CBC, CMP urinalysis and serum acetone. Patient's serum Corina levels negative, she has ketones in her urine concerning the fact that the serum Corina only measures. Hydroxybutyrate she still may be an DKA. She has an anion gap acidosis and lactic acid level 5.7. Patient's CBC is normal , patient's CMP shows signs of dehydration Patient's been comfortable with Zofran ODT and IV as well as some IV Dilaudid and fluids she has had no episodes of vomiting and diarrhea here in the emergency department. She is resting quietly and comfortably. Laboratory Tests Test 12/20/17 12:35 12/20/17 13:16 12/20/17 13:23 Glucose (Fingerstick) 409 mg/dL (70-99) H White Blood Count 8.3 x10^3/uL (4.0-11.0) Red Blood Count 4.47 x10^6/uL (3.50-5.40) Hemoglobin 12.8 g/dL (12.0-15.5) Hematocrit 37.9 % (36.0-47.0) Mean Corpuscular Volume 85 fL (79-100) Mean Corpuscular Hemoglobin 29 pg (25-35) Mean Corpuscular Hemoglobin Concent 34 g/dL (31-37) Red Cell Distribution Width 14.8 % (11.5-14.5) H Platelet Count 485 x10^3/uL (140-400) H Neutrophils (%) (Auto) 62 % (31-73) Lymphocytes (%) (Auto) 25 % (24-48) Monocytes (%) (Auto) 6 % (0-9) Eosinophils (%) (Auto) 7 % (0-3) H Basophils (%) (Auto) 0 % (0-3) Neutrophils # (Auto) 5.2 x10^3uL (1.8-7.7) Lymphocytes # (Auto) 2.1 x10^3/uL (1.0-4.8) Monocytes # (Auto) 0.5 x10^3/uL (0.0-1.1) Eosinophils # (Auto) 0.5 x10^3/uL (0.0-0.7) Basophils # (Auto) 0.0 x10^3/uL (0.0-0.2) Sodium Level 137 mmol/L (136-145) Potassium Level 3.6 mmol/L (3.5-5.1) Chloride Level 94 mmol/L (98-107) L Carbon Dioxide Level 28 mmol/L (21-32) Anion Gap 15 (6-14) H Blood Urea Nitrogen 24 mg/dL (7-20) H Creatinine 0.9 mg/dL (0.6-1.0) Estimated GFR (Cockcroft-Gault) 75.7 Glucose Level 269 mg/dL (70-99) H Lactic Acid Level 5.7 mmol/L (0.4-2.0) *H Calcium Level 10.6 mg/dL (8.5-10.1) H Magnesium Level 1.9 mg/dL (1.8-2.4) Total Bilirubin 0.5 mg/dL (0.2-1.0) Direct Bilirubin 0.1 mg/dL (0.0-0.2) Aspartate Amino Transferase (AST) 11 U/L (15-37) L Alanine Aminotransferase (ALT) 22 U/L (14-59) Alkaline Phosphatase 153 U/L (46-116) H Total Protein 9.0 g/dL (6.4-8.2) H Albumin 4.3 g/dL (3.4-5.0) Lipase 156 U/L (73-393) Acetone Level Neg (NEG) Urine Collection Type Unknown Urine Color Yellow Urine Clarity Clear Urine pH 6.0 Urine Specific [place] 1.010 Urine Protein Trace (NEG-TRACE) Urine Glucose (UA) >=1000 mg/dL (NEG) Urine Ketones (Stick) 15 mg/dL (NEG) Urine Blood Neg (NEG) Urine Nitrite Neg (NEG) Urine Bilirubin Neg (NEG) Urine Urobilinogen Dipstick 0.2 mg/dL (0.2 mg/dL) Urine Leukocyte Esterase Neg (NEG) Urine RBC Rare /HPF (0-2) Urine WBC Occ /HPF (0-4) Urine Squamous Epithelial Cells Mod /LPF Urine Bacteria 0 /HPF (0-FEW) []Labor Conciliator note: Dr. RIMA MENENDEZ Labor Conciliator called at of the service service paged at approximately 3:03 PM Consult called back at paged returned at 3 3 PM Discussed the case I presented and they agreed with admission. Time of acceptance 3:03 PM "I have assessed this patient clinically and believe that their condition requires an admission to the hospital. After consulting the admitting physician about this case, they have asked that I admit this patient to their service as an inpatient based on the clinical presentation and my impression." Although patient is feeling markedly better I'm worried that she will revert and continue to vomit at home become increasingly dehydrated with hyperglycemia. She would benefit from IV fluid hydration and GI evaluation Dragon Disclaimer Dragon Disclaimer This electronic medical record was generated, in whole or in part, using a voice recognition dictation system. Departure Departure: Impression: Primary Impression: Abdominal pain Additional Impressions: Intractable nausea and vomiting Lactic acidosis Disposition: ADMITTED INPATIENT Admitting Physician: Justin Pereira Condition: GUARDED Referrals: ESVIN ROLLINS (PCP) Problem Qualifiers SHELIA GARCÍA MD Dec 20, 2017 13:10
[2017-12-20] MEDS: HYDROmorphone PF 2 MG/ML VIAL IV/SQ PRN ×2 (13:22→15:38)
[2017-12-20 13:30] LABS: BASO % 0 % (0-3); EOS # 0.5 x10^3/uL (0.0-0.7); EOS % 7 % (0-3); HEMATOCRIT 37.9 % (36.0-47.0); HEMOGLOBIN 12.8 g/dL (12.0-15.5); LYMPH # 2.1 x10^3/uL (1.0-4.8); LYMPH % 25 % (24-48); MEAN CORPUSCULAR HEMOGLOBIN 29 pg (25-35); MEAN CORPUSCULAR HGB CONC 34 g/dL (31-37); MEAN CORPUSCULAR VOLUME 85 fL (79-100); MONO # 0.5 x10^3/uL (0.0-1.1); MONO % 6 % (0-9); NEUT # 5.2 x10^3uL (1.8-7.7); NEUT % 62 % (31-73); PLATELET COUNT 485 x10^3/uL (140-400); RED BLOOD COUNT 4.47 x10^6/uL (3.50-5.40); RED CELL DISTRIBUTION WIDTH 14.8 % (11.5-14.5); WHITE BLOOD COUNT 8.3 x10^3/uL (4.0-11.0)
[2017-12-20 13:44] LABS: CLARITY,URINE CLEAR; COLOR,URINE YELLOW
[2017-12-20 13:45] LABS: BACTERIA,URINE 0 /HPF (0-FEW); BILIRUBIN,URINE NEG (NEG); GLUCOSE,URINE >=1000 mg/dL (NEG); NITRITE,URINE NEG (NEG); RBC,URINE RARE /HPF (0-2); SQUAMOUS EPITHELIAL CELL,UR MOD /LPF; UROBILINOGEN,URINE 0.2 mg/dL (0.2 mg/dL); WBC,URINE OCC /HPF (0-4)
[2017-12-20 13:54] LABS: ALBUMIN 4.3 g/dL (3.4-5.0); CALCIUM 10.6 mg/dL (8.5-10.1); CREATININE 0.9 mg/dL (0.6-1.0); DIRECT BILIRUBIN 0.1 mg/dL (0.0-0.2); GFR 75.7; MAGNESIUM 1.9 mg/dL (1.8-2.4); POTASSIUM 3.6 mmol/L (3.5-5.1); TOTAL BILIRUBIN 0.5 mg/dL (0.2-1.0)
--- NOTE | 2017-12-20 14:39 | EKG ---
[address] [address] Test Date: 2017-12-20 Test Time: 12:48:04 Pat Name: CHALO RAYMUNDO Department: Room: Gender: F Flow Specialist: CORNEL : 1990 Requested By: SHELIA GARCÍA Order Number: [id number] Reading MD: Measurements Intervals [place] Rate: 126 P: -83 MT: 116 QRS: 74 QRSD: 80 T: 44 QT: 354 QTc: 513 Interpretive Statements SUPRAVENTRICULAR RHYTHM QRS(T) CONTOUR ABNORMALITY CONSIDER ANTEROSEPTAL MYOCARDIAL DAMAGE POSSIBLY ABNORMAL ECG RI6.01 No previous ECG available for comparison
[2017-12-20] MEDS ORDERED: HYDROmorphone PF 2 MG/ML VIAL IV PRN (15:15)
[2017-12-20] MEDS ORDERED: ONDANSETRON PF 4 MG/2 ML VIAL. IV PRN (15:15)
[2017-12-20 16:40] VITALS: BP 99/66
[2017-12-20] MEDS: IV NORMAL SALINE 1,000ML 1,000 ML IV SCH (17:12)
[2017-12-20 17:35] LABS: BARBITURATES NEG (NEG); BENZODIAZEPINES NEG (NEG); CANNABINOIDS POS (NEG); COCAINE NEG (NEG); METHADONE NEG (NEG); OPIATES NEG (NEG); PHENCYCLIDINE NEG (NEG)
[2017-12-20 17:36] LABS: AMPHETAMINE/METHAMPHETAMINE NEG (NEG)
--- NOTE | 2017-12-20 17:56 | HP ---
ADMIT DATE: 12/20/2017 HISTORY OF PRESENT ILLNESS: The patient is a 27-year-old female patient who yet again came to the Emergency Room with complaint of recurrent bouts of nausea, vomiting, abdominal pain. DICTATION ENDS HERE ANAYELI FOSS MD DR: JOSÉ/regina JOB#: [id number] / [id number]
[2017-12-20] MEDS ORDERED: DEXTROSE 50% 25 GM / 50ML DISP.SYRIN. IV PRN (18:00)
[2017-12-20] MEDS ORDERED: ONDANSETRON ODT 4 MG TAB.RAPDIS PO PRN (18:15)
--- NOTE | 2017-12-20 18:30 | HP ---
ADMIT DATE: 12/20/2017 HISTORY OF PRESENT ILLNESS: The patient is a 27-year-old female patient who yet again came to the Emergency Room, complaining of recurrent bouts of nausea, vomiting and abdominal pain in both flank areas. She stated that she has had intractable nausea and vomiting that began this morning as she woke from sleep. The patient was seen here 2 days ago with very similar presentation with distended abdomen, nausea, vomiting and high blood sugar. The patient states that she is on a sliding scale insulin dose of Levemir and NovoLog, she took 15 units of NovoLog and 10 units of Levemir, just prior to arrival when she noticed her sugars were over 400. By the time she arrived to the Emergency Room, her blood sugar was still 400. She has diffuse abdominal pain with no specific location or predominance. She denied any fever, chills, dizziness, lightheadedness, chest pain, or shortness of breath. Denied any dysuria, frequency, or hematuria. She was investigated in the Emergency Room, was found to have hyperglycemia; however, her anion gap was only 15 and her magnesium is actually normal at 1.9, sodium and potassium, in fact she was slightly dehydrated and was treated with IV fluid and was admitted. We will continue with IV fluid and basically continue with her insulin sliding scale and her liver enzymes and her serum lipase were normal. PAST MEDICAL HISTORY: 1. Recurrent admission for DKA. 2. Longstanding type 1 diabetes 3. Chronic hypomagnesemia. 4. Gastroparesis. 5. Methamphetamine abuse. PAST SURGICAL HISTORY: Significant for Port-A-Cath placement and removal, incision of the left axillary abscess. FAMILY HISTORY: Unremarkable. SOCIAL HISTORY: She is single. She lives with her mother. She continued to smoke; however, she has not been using according to her any methamphetamine, although the Emergency Room did not do any urine toxicology screen. ALLERGIES: She is allergic to ACETAMINOPHEN AND ADHESIVE TAPE. MEDICATIONS: She is currently on following medications: She is on NovoLog insulin before meals and also on Levemir insulin. She is also on magnesium oxide 400 mg twice a day, metoclopramide 10 mg 4 times a day, ondansetron 4 mg every 8 hours, ranitidine 150 mg twice a day and potassium chloride 20 mEq twice a day. PHYSICAL EXAMINATION: GENERAL: On arrival to the Emergency Room, by the time I saw her in the ICU, she was resting slightly propped up in bed, in no apparent respiratory distress. She was pale, but no jaundice, cyanosis or thyromegaly. No jugular venous distention. No limb edema. VITAL SIGNS: Her heart rate was 104, blood pressure was 99/66, temperature was 97.6, respiratory rate was 18 and oxygen saturation was 98%. HEAD, EYES, EARS, NOSE AND THROAT: Showed normocephalic and atraumatic. NECK: Supple. HEART: Showed normal first and second heart sounds with no gallop, rub or murmur. CHEST: Clear to auscultation. No crepitation or rhonchi. ABDOMEN: Distended, soft, nontender. There is really no specific area of tenderness. No guarding or rigidity. No organomegaly. All hernial orifices intact. Bowel sounds normal. NEUROLOGIC: She is grossly intact. LABORATORY DATA: White cell count was 8300, hemoglobin 13, hematocrit 38, MCV 85 and platelet count of ____ with normal manual differential. Serum sodium was 137, potassium 3.6, chloride 94, bicarbonate 28, anion gap of 15, BUN 24, creatinine 0.9, estimated GFR was 76 mL per minute. Her glucose was 269, calcium 10.6, magnesium 1.9. Total bilirubin, AST, ALT were normal. Alkaline phosphatase slightly elevated. Her total protein was 9, albumin 4.3. Serum lipase 156. Urinalysis was essentially unremarkable. Her toxic screen was negative for acetones. ASSESSMENT AND PLAN: The patient was admitted with abdominal pain, intractable nausea and vomiting and slight lactic acidosis. Her lactic acid was 5.7. We will continue with the IV fluid and insulin, both NovoLog and Levemir, we will repeat all her lab works tomorrow, and if all labs are normalized and she is able to tolerate her food and has no abdominal pain, she can be discharged home. ANAYELI FOSS MD DR: JOSÉ/regina JOB#: [id number] / [id number]
[2017-12-20 19:00] VITALS: BP 111/74
[2017-12-20] MEDS: KETOROLAC 30 MG/ML VIAL. IV PRN (20:26)
[2017-12-20] MEDS: METOCLOPRAMIDE 10 MG TABLET PO SCH (20:26)
[2017-12-20] MEDS: INSULIN DETEMIR 300 UNITS/3 ML INSULN.PEN. SQ SCH (21:30)
[2017-12-20] MEDS: INSULIN ASPART 300 UNITS/3 ML INSULN.PEN SQ SCH (21:31)
[2017-12-20 23:00] VITALS: BP 121/72
[2017-12-21 03:00] VITALS: BP 117/70
[2017-12-21] MEDS: IV NORMAL SALINE 1,000ML 1,000 ML IV SCH ×2 (03:12→07:05)
[2017-12-21] MEDS: KETOROLAC 30 MG/ML VIAL. IV PRN ×2 (05:07→11:51)
[2017-12-21 06:51] LABS: HEMATOCRIT 27.7 % (36.0-47.0); HEMOGLOBIN 9.3 g/dL (12.0-15.5); RED BLOOD COUNT 3.16 x10^6/uL (3.50-5.40); RED CELL DISTRIBUTION WIDTH 15.3 % (11.5-14.5)
[2017-12-21 07:09] LABS: ALBUMIN 2.7 g/dL (3.4-5.0); ALBUMIN/GLOBULIN RATIO 0.9 (1.0-1.7); CALCIUM 8.2 mg/dL (8.5-10.1); CREATININE 0.6 mg/dL (0.6-1.0); GFR 120.8; POTASSIUM 4.5 mmol/L (3.5-5.1); TOTAL BILIRUBIN 0.2 mg/dL (0.2-1.0); TOTAL PROTEIN 5.6 g/dL (6.4-8.2)
[2017-12-21] MEDS: METOCLOPRAMIDE 10 MG TABLET PO SCH ×2 (07:48→11:50)
[2017-12-21] MEDS: INSULIN DETEMIR 300 UNITS/3 ML INSULN.PEN. SQ SCH (07:49)
[2017-12-21] MEDS: INSULIN ASPART 300 UNITS/3 ML INSULN.PEN SQ SCH ×2 (07:49→11:51)
[2017-12-21 08:00] VITALS: BP 120/68
[2017-12-21 12:42] VITALS: BP 118/62
--- NOTE | 2017-12-21 22:25 | DS ---
DATE OF DISCHARGE: 12/21/2017 HOSPITAL COURSE: The patient was admitted yesterday with abdominal pain. blood sugar was slightly high, but she was not in DKA. She was continued on her regimen. Continue her metoclopramide. She was given advice on her diet and explanation for diabetic gastroparesis and she did well. PHYSICAL EXAMINATION: GENERAL: When I saw her this afternoon, she looked well and was clearly in no apparent respiratory distress, pale, but no jaundice, cyanosis, or thyromegaly. No jugular venous distention. No limb edema. VITAL SIGNS: Her heart rate was 80, blood pressure was 118/62, temperature was 98.2, respiratory rate was 20, and oxygen saturation was 97%. HEAD, EYES, EARS, NOSE AND THROAT: Normocephalic, atraumatic. NECK: Supple. HEART: Showed normal first and second sounds. No gallop, rub or murmur. CHEST: Clear to auscultation. No crepitation or rhonchi. ABDOMEN: Distended, soft, nontender. No guarding or rigidity. No organomegaly. Hernial orifices intact. Bowel sounds normal. NEUROLOGIC: She is awake, alert, responding appropriately. Cranial nerves intact. She moves extremities without difficulty. She ambulates without assistance or assistive devices. Her intake was 2440, no output was recorded. LABORATORY DATA: White cell count was 6000, hemoglobin 9.3, hematocrit 27.7, MCV 88 and platelet count 337,000. Her chemistry showed a serum sodium of 136, potassium 4.5, chloride 102, bicarbonate 26, anion gap of 8, BUN 27, creatinine 0.6, estimated GFR was 121 mL per minute. Her glucose was 206, calcium was 8.2. Total bilirubin, AST, ALT, alkaline phosphatase were normal. Total protein was 5.86. Albumin was 2.7. Urinalysis is unremarkable. Toxic screen was positive for cannabinoids. FINAL DISCHARGE DIAGNOSES: Abdominal pain, likely diabetic gastroparesis; intractable nausea, vomiting, and lactic acidosis, and type 1 diabetes, poorly controlled. ANAYELI FOSS MD DR: JOSÉ/regina JOB#: [id number] / [id number]
== END 2017-12-21 14:00 | disposition home or self-care (01) | DRG 74 ==
LOC: ER 12:25 → UNDOADMIN 15:15 → ICU 15:15
PROVIDERS: ADMIT Internal Medicine; ATTEND Internal Medicine
DX: E10.43 Type 1 diabetes mellitus with diabetic autonomic (poly)neuropathy (principal); E10.65 Type 1 diabetes mellitus with hyperglycemia; K31.84 Gastroparesis; E83.42 Hypomagnesemia; E86.0 Dehydration; F15.10 Other stimulant abuse, uncomplicated; K21.9 Gastro-esophageal reflux disease without esophagitis; Z79.4 Long term (current) use of insulin
CPT/HCPCS: 36415; 80048; 80053; 80076; 80307; 81001; 82010; 82947; 83605; 83690; 83735; 85025; 85027; 87641; 93005; 96361; 96374; 96376; J1170; J1815; J1885; J8597; Q0162; 99285-25; G0479; J7030

== ENCOUNTER 2017-12-22 12:22 | Emergency (ER) | payer SELFPAY ==
[2017-12-22] MEDS ORDERED: IV NORMAL SALINE 1,000ML 1,000 ML IV ONE ×2 (12:45)
[2017-12-22 12:52] LABS: BASO # 0.2 x10^3/uL (0.0-0.2); BASO % 3 % (0-3); EOS # 0.6 x10^3/uL (0.0-0.7); EOS % 10 % (0-3); HEMATOCRIT 36.3 % (36.0-47.0); LYMPH # 2.2 x10^3/uL (1.0-4.8); LYMPH % 35 % (24-48); MEAN CORPUSCULAR HEMOGLOBIN 29 pg (25-35); MEAN CORPUSCULAR HGB CONC 33 g/dL (31-37); MEAN CORPUSCULAR VOLUME 88 fL (79-100); MONO # 0.4 x10^3/uL (0.0-1.1); MONO % 7 % (0-9); NEUT # 2.9 x10^3uL (1.8-7.7); NEUT % 46 % (31-73); PLATELET COUNT 364 x10^3/uL (140-400); RED BLOOD COUNT 4.13 x10^6/uL (3.50-5.40); RED CELL DISTRIBUTION WIDTH 14.7 % (11.5-14.5); WHITE BLOOD COUNT 6.3 x10^3/uL (4.0-11.0)
[2017-12-22] MEDS ORDERED: LIDO:MAALOX 1:1 20 ML SINGLE DOSE PO ONE (13:00)
[2017-12-22] MEDS ORDERED: METOCLOPRAMIDE HCL 10 MG/2 ML VIAL. IV ONE (13:00)
[2017-12-22] MEDS ORDERED: HALOPERIDOL LACT 5 MG/ML VIAL. IVP ONE (13:00)
[2017-12-22 13:07] LABS: ALBUMIN 3.3 g/dL (3.4-5.0); ALBUMIN/GLOBULIN RATIO 0.8 (1.0-1.7); CALCIUM 8.8 mg/dL (8.5-10.1); CREATININE 0.6 mg/dL (0.6-1.0); GFR 120.8; POTASSIUM 4.6 mmol/L (3.5-5.1); TOTAL BILIRUBIN 0.3 mg/dL (0.2-1.0); TOTAL PROTEIN 7.4 g/dL (6.4-8.2)
--- NOTE | 2017-12-22 13:14 | ED.ADGEN ---
Past History Past Medical History: Diabetes Additional Past Medical Histor: pt reports several admissions for "high blood sugar" Past Surgical History: No Surgical History Smoking: Less than 1pk/day Alcohol Use: None Drug Use: Marijuana Adult General Chief Complaint Chief Complaint abdominal pain, nausea, hyperglycemia HPI HPI Patient is a 27 year old female who presents with left upper quadrant pain, nausea, vomiting, and hyperglycemia. Pt is well-known to our ER for uncontrolled type 1 diabetes with hyperglycemia, left upper quadrant pain, and vomiting. Pt was discharged from the hospital yesterday for similar complaints , has a negative CT of abd/pelvis and US. blood sugars controlled with IV fluids and insulin, pain controlled with narcotics. Pt's UDS is + for marijuana. PCP is [facility] Idalmis Hudson reports polyuria, denies changes in bowel movements. Review of Systems Review of Systems Constitutional: Denies fever or chills [] Eyes: Denies change in visual acuity, redness, or eye pain [] HENT: Denies nasal congestion or sore throat [] Respiratory: Denies cough or shortness of breath [] Cardiovascular:denies chest pain GI: per hpi : Denies dysuria or hematuria [] Musculoskeletal: Denies back pain or joint pain [] Integument: Denies rash or skin lesions [] Neurologic: Denies headache, focal weakness or sensory changes [] Current Medications Current Medications Current Medications Medications (Trade) Dose Ordered Sig/Chevy Start Time Stop Time Status Last Admin Dose Admin Haloperidol Lactate (Haldol) 5 mg 1X ONCE 12/22/17 13:00 12/22/17 13:01 DC 12/22/17 13:00 5 MG Ketorolac Tromethamine (Toradol) 30 mg 1X ONCE 12/22/17 13:45 12/22/17 13:46 DC 12/22/17 13:37 30 MG Lidocaine (Lidoderm) 1 patch 1X ONCE 12/22/17 14:00 12/22/17 14:01 DC 12/22/17 14:01 1 PATCH Metoclopramide HCl (Reglan Vial) 10 mg 1X ONCE 12/22/17 13:00 12/22/17 13:01 DC 12/22/17 12:58 10 MG Multi-Ingredient Mouthwash/Gargle (Gi Cocktail) 20 ml 1X ONCE 12/22/17 13:00 12/22/17 13:01 DC 12/22/17 12:55 20 ML Sodium Chloride 1,000 ml @ 1,000 mls/hr 1X ONCE 12/22/17 12:45 12/22/17 13:44 DC Allergies Allergies Allergies Coded Allergies Type Severity Reaction Last Updated Verified acetaminophen Allergy Intermediate HIVES 10/14/17 Yes adhesive tape Allergy Intermediate 10/14/17 Yes Physical Exam Physical Exam Constitutional: Well developed, well nourished, no acute distress, non-toxic appearance. [] HENT: Normocephalic, atraumatic, bilateral external ears normal, oropharynx moist, no oral exudates, nose normal. [] Eyes: PERRLA, EOMI, conjunctiva normal, no discharge. [] Neck: Normal range of motion, no tenderness, supple, no stridor. [] Cardiovascular:Heart rate slightly tachy with regular rhythm, no murmur [] Lungs & Thorax: Bilateral breath sounds clear to auscultation, faint R lower lobe crackle, good air movement, no wheeze Abdomen: Bowel sounds normal, soft, nondistended, ttp LUQ mild, no peritoneal signs, no guarding Skin: Warm, dry, no erythema, no rash. [] Back: No tenderness, no CVA tenderness. [] Extremities: No tenderness, no cyanosis, no clubbing, ROM intact, no edema. [] Neurologic: Alert and oriented X 3, normal motor function, normal sensory function, no focal deficits noted. [] Psychologic: Affect normal, judgement normal, mood normal. [] Current Patient Data Vital Signs Vital Signs Date Time Temp Pulse Resp B/P (MAP) Pulse Ox O2 Delivery O2 Flow Rate FiO2 12/22/17 14:09 95 16 132/93 (106) 98 12/22/17 13:23 Room Air 12/22/17 12:25 98.2 Lab Results Laboratory Tests Test 12/22/17 12:30 12/22/17 12:39 12/22/17 13:10 12/22/17 13:15 Glucose (Fingerstick) 425 mg/dL (70-99) H White Blood Count 6.3 x10^3/uL (4.0-11.0) Red Blood Count 4.13 x10^6/uL (3.50-5.40) Hemoglobin 12.0 g/dL (12.0-15.5) Hematocrit 36.3 % (36.0-47.0) Mean Corpuscular Volume 88 fL (79-100) Mean Corpuscular Hemoglobin 29 pg (25-35) Mean Corpuscular Hemoglobin Concent 33 g/dL (31-37) Red Cell Distribution Width 14.7 % (11.5-14.5) H Platelet Count 364 x10^3/uL (140-400) Neutrophils (%) (Auto) 46 % (31-73) Lymphocytes (%) (Auto) 35 % (24-48) Monocytes (%) (Auto) 7 % (0-9) Eosinophils (%) (Auto) 10 % (0-3) H Basophils (%) (Auto) 3 % (0-3) Neutrophils # (Auto) 2.9 x10^3uL (1.8-7.7) Lymphocytes # (Auto) 2.2 x10^3/uL (1.0-4.8) Monocytes # (Auto) 0.4 x10^3/uL (0.0-1.1) Eosinophils # (Auto) 0.6 x10^3/uL (0.0-0.7) Basophils # (Auto) 0.2 x10^3/uL (0.0-0.2) Sodium Level 134 mmol/L (136-145) L Potassium Level 4.6 mmol/L (3.5-5.1) Chloride Level 99 mmol/L (98-107) Carbon Dioxide Level 26 mmol/L (21-32) Anion Gap 9 (6-14) Blood Urea Nitrogen 14 mg/dL (7-20) Creatinine 0.6 mg/dL (0.6-1.0) Estimated GFR (Cockcroft-Gault) 120.8 BUN/Creatinine Ratio 23 (6-20) H Glucose Level 386 mg/dL (70-99) H Calcium Level 8.8 mg/dL (8.5-10.1) Total Bilirubin 0.3 mg/dL (0.2-1.0) Aspartate Amino Transferase (AST) 29 U/L (15-37) Alanine Aminotransferase (ALT) 25 U/L (14-59) Alkaline Phosphatase 103 U/L (46-116) Total Protein 7.4 g/dL (6.4-8.2) Albumin 3.3 g/dL (3.4-5.0) L Albumin/Globulin Ratio 0.8 (1.0-1.7) L Urine Collection Type Unknown Urine Color Straw Urine Clarity Hazy Urine pH 7.5 Urine Specific [place] 1.015 Urine Protein Neg (NEG-TRACE) Urine Glucose (UA) 500 mg/dL (NEG) Urine Ketones (Stick) Neg mg/dL (NEG) Urine Blood Neg (NEG) Urine Nitrite Neg (NEG) Urine Bilirubin Neg (NEG) Urine Urobilinogen Dipstick 0.2 mg/dL (0.2 mg/dL) Urine Leukocyte Esterase Neg (NEG) Urine RBC Rare /HPF (0-2) Urine WBC Occ /HPF (0-4) Urine Squamous Epithelial Cells Mod /LPF Urine Transitional Epithelial Cells Occ /LPF Urine Bacteria Few /HPF (0-FEW) Urine Mucus Slight /LPF POC Urine HCG, Qualitative hcg negative (Negative) EKG EKG [] Radiology/Procedures Radiology/Procedures Reviewed imaging from 12/20/17[] Course & Med Decision Making Course & Med Decision Making Pertinent Labs and Imaging studies reviewed. (See chart for details) Pt appears to be in no significant distress. I informed pt we would attempt to control her symptoms with non-narcotic solutions, give IV fluids, check labs and urine. IV haldol, reglan, 2 L NS and gi cocktail ordered. Pt sleeping after medication. She reports her symptoms were much improved. I explained results show some hyperglycemia, no signs of acidosis or serious infection. Offered pt IV Toradol and she accepted. UA pending. Lidoderm patch to affected area ordered. HR improved to 86, O2 sat 99%. Explained to pt plan for dc, need to f/u with PCP, she voiced understanding. Also stress importance of not smoking MJ and to take her insulin scheduled regularly. Final Impression Final Impression abdominal pain hyperglycemia[] Problems: Dragon Disclaimer Dragon Disclaimer This electronic medical record was generated, in whole or in part, using a voice recognition dictation system. ALYSSA CAVAZOS MD Dec 22, 2017 13:14
[2017-12-22 13:45] LABS: CLARITY,URINE HAZY; COLOR,URINE STRAW
[2017-12-22] MEDS ORDERED: KETOROLAC 30 MG/ML VIAL. IV ONE (13:45)
[2017-12-22 13:46] LABS: BACTERIA,URINE FEW /HPF (0-FEW); BILIRUBIN,URINE NEG (NEG); GLUCOSE,URINE 500 mg/dL (NEG); NITRITE,URINE NEG (NEG); RBC,URINE RARE /HPF (0-2); SQUAMOUS EPITHELIAL CELL,UR MOD /LPF; UROBILINOGEN,URINE 0.2 mg/dL (0.2 mg/dL); WBC,URINE OCC /HPF (0-4)
[2017-12-22] MEDS ORDERED: LIDOCAINE (700MG/PATCH) PATCH. TD ONE (14:00)
[2017-12-22 14:09] VITALS: BP 132/93
== END 2017-12-22 14:12 | disposition home or self-care (01) ==
LOC: ER 12:22
DX: E10.65 Type 1 diabetes mellitus with hyperglycemia (principal); R10.12 Left upper quadrant pain; F17.200 Nicotine dependence, unspecified, uncomplicated; F12.10 Cannabis abuse, uncomplicated; Z88.6 Allergy status to analgesic agent; Z88.8 Allergy status to other drugs, medicaments and biological substances
CPT/HCPCS: 36415; 80053; 81001; 81025; 82947; 85025; 96361; 96374; 96375; 99284; J1630; J1885; J2765; J7030

== ENCOUNTER 2017-12-27 20:52 | Emergency (ER) | payer SELFPAY ==
[~2017-12-27] VITALS: Ht 170.2 cm; Wt 62.3 kg
[2017-12-27 21:20] VITALS: BP 134/100
[2017-12-27] MEDS ORDERED: IV NORMAL SALINE 1,000ML 1,000 ML IV SCH (21:31)
[2017-12-27] MEDS ORDERED: 0.9 % SODIUM CHLORIDE 10 ML DISP.SYRIN. IV PRN (21:45)
[2017-12-27] MEDS ORDERED: INSULIN REGULAR 100 UNIT/ML 10ML VIAL. IV ONE (22:00)
[2017-12-27] MEDS ORDERED: ONDANSETRON PF 4 MG/2 ML VIAL. IV ONE (22:00)
[2017-12-27 22:01] LABS: BASO # 0.1 x10^3/uL (0.0-0.2); BASO % 1 % (0-3); EOS # 0.3 x10^3/uL (0.0-0.7); EOS % 5 % (0-3); HEMATOCRIT 36.8 % (36.0-47.0); HEMOGLOBIN 12.4 g/dL (12.0-15.5); LYMPH # 1.8 x10^3/uL (1.0-4.8); LYMPH % 28 % (24-48); MEAN CORPUSCULAR HEMOGLOBIN 29 pg (25-35); MEAN CORPUSCULAR HGB CONC 34 g/dL (31-37); MEAN CORPUSCULAR VOLUME 87 fL (79-100); MONO # 0.6 x10^3/uL (0.0-1.1); MONO % 9 % (0-9); NEUT # 3.5 x10^3uL (1.8-7.7); NEUT % 57 % (31-73); PLATELET COUNT 406 x10^3/uL (140-400); RED BLOOD COUNT 4.24 x10^6/uL (3.50-5.40); RED CELL DISTRIBUTION WIDTH 15.4 % (11.5-14.5); WHITE BLOOD COUNT 6.2 x10^3/uL (4.0-11.0)
[2017-12-27 22:10] LABS: CALCIUM 9.1 mg/dL (8.5-10.1); CREATININE 0.6 mg/dL (0.6-1.0); GFR 120.8; POTASSIUM 3.9 mmol/L (3.5-5.1); TOTAL BILIRUBIN 0.5 mg/dL (0.2-1.0); TOTAL PROTEIN 8.2 g/dL (6.4-8.2)
[2017-12-27 22:19] LABS: INFLUENZA A PATIENT NEGATIVE (NEGATIVE); INFLUENZA B PATIENT NEGATIVE (NEGATIVE)
[2017-12-27 23:16] LABS: BARBITURATES NEG (NEG); BENZODIAZEPINES NEG (NEG); CANNABINOIDS POS (NEG); COCAINE NEG (NEG); METHADONE NEG (NEG); OPIATES POS (NEG); PHENCYCLIDINE NEG (NEG)
[2017-12-27 23:17] LABS: AMPHETAMINE/METHAMPHETAMINE POS (NEG)
[2017-12-27 23:22] LABS: BILIRUBIN,URINE NEG (NEG); CLARITY,URINE CLEAR; COLOR,URINE YELLOW; GLUCOSE,URINE 500 mg/dL (NEG)
[2017-12-27 23:23] LABS: BACTERIA,URINE FEW /HPF (0-FEW); NITRITE,URINE NEG (NEG); RBC,URINE 0 /HPF (0-2); SQUAMOUS EPITHELIAL CELL,UR FEW /LPF; UROBILINOGEN,URINE 0.2 mg/dL (0.2 mg/dL)
--- NOTE | 2017-12-27 23:32 | PHYS DOC ---
Past History Past Medical History: Diabetes Additional Past Medical Histor: pt reports several admissions for "high blood sugar" Past Surgical History: No Surgical History Smoking: Less than 1pk/day Alcohol Use: None Drug Use: Marijuana Adult General Chief Complaint Chief Complaint: NAUSEA/VOMITING HPI HPI 27 year old female patient with history of type 1 diabetes and frequent emergency room with DKA complaining of generalized myalgia nasal congestion and cough since this morning without fever and chills. Patient states she had 4 episodes of vomiting on her way to come to emergency room. Patient states she took her insulin but her blood sugar was more than 400 Prialt arrival to ER. Patient states she thinks she has because she never had myalgia with her previous episodes of DKA. Review of Systems Review of Systems Constitutional: Denies fever or chills [] Eyes: Denies change in visual acuity, redness, or eye pain [] HENT: Reports nasal congestion Respiratory: Denies cough or shortness of breath [] Cardiovascular: No additional information not addressed in HPI [] GI: Denies abdominal pain, bloody stools or diarrhea, reports nausea and vomiting [] : Denies dysuria or hematuria [] Musculoskeletal: Denies back pain or joint pain , reports myalgia Integument: Denies rash or skin lesions [] Neurologic: Denies headache, focal weakness or sensory changes [] Endocrine: Denies polyuria or polydipsia [] All other systems were reviewed and found to be within normal limits, except as documented in this note. Current Medications Current Medications Current Medications Medications (Trade) Dose Ordered Sig/Chevy Start Time Stop Time Status Last Admin Dose Admin Ceftriaxone Sodium 1 gm/ Sodium Chloride 50 ml @ 100 mls/hr 1X ONCE 12/27/17 23:30 12/27/17 23:59 UNV Fentanyl Citrate (Fentanyl 2ml Vial) 50 mcg 1X ONCE 12/27/17 22:15 12/27/17 22:16 DC 12/27/17 22:23 50 MCG Insulin Human Regular (NovoLIN R) 10 unit 1X ONCE 12/27/17 22:00 12/27/17 22:00 DC Ondansetron HCl (Zofran) 4 mg 1X ONCE 12/27/17 22:00 12/27/17 22:01 DC 12/27/17 21:48 4 MG Sodium Chloride (Normal Saline Flush) 10 ml QSHIFT PRN 12/27/17 21:45 Allergies Allergies Allergies Coded Allergies Type Severity Reaction Last Updated Verified acetaminophen Allergy Intermediate HIVES 10/14/17 Yes adhesive tape Allergy Intermediate 10/14/17 Yes Physical Exam Physical Exam Constitutional: Well developed, well nourished, moderate distress, non-toxic appearance, anxious . [] HENT: Normocephalic, atraumatic, bilateral external ears normal, oropharynx dry , no oral exudates, nose normal. [] Eyes: PERRLA, EOMI, conjunctiva normal, no discharge. [] Neck: Normal range of motion, no tenderness, supple, no stridor. [] Cardiovascular: Tachycardic, no murmur [] Lungs & Thorax: Bilateral breath sounds clear to auscultation [] Abdomen: Bowel sounds normal, soft, no tenderness, no masses, no pulsatile masses. [] Skin: Warm, dry, no erythema, no rash. [] Back: No tenderness, no CVA tenderness. [] Extremities: No tenderness, no cyanosis, no clubbing, ROM intact, no edema. [] Neurologic: Alert and oriented X 3, normal motor function, normal sensory function, no focal deficits noted. [] Psychologic: Anxious Current Patient Data Lab Results Laboratory Tests Test 12/27/17 21:25 12/27/17 21:32 12/27/17 22:42 Glucose (Fingerstick) 247 mg/dL (70-99) H White Blood Count 6.2 x10^3/uL (4.0-11.0) Red Blood Count 4.24 x10^6/uL (3.50-5.40) Hemoglobin 12.4 g/dL (12.0-15.5) Hematocrit 36.8 % (36.0-47.0) Mean Corpuscular Volume 87 fL (79-100) Mean Corpuscular Hemoglobin 29 pg (25-35) Mean Corpuscular Hemoglobin Concent 34 g/dL (31-37) Red Cell Distribution Width 15.4 % (11.5-14.5) H Platelet Count 406 x10^3/uL (140-400) H Neutrophils (%) (Auto) 57 % (31-73) Lymphocytes (%) (Auto) 28 % (24-48) Monocytes (%) (Auto) 9 % (0-9) Eosinophils (%) (Auto) 5 % (0-3) H Basophils (%) (Auto) 1 % (0-3) Neutrophils # (Auto) 3.5 x10^3uL (1.8-7.7) Lymphocytes # (Auto) 1.8 x10^3/uL (1.0-4.8) Monocytes # (Auto) 0.6 x10^3/uL (0.0-1.1) Eosinophils # (Auto) 0.3 x10^3/uL (0.0-0.7) Basophils # (Auto) 0.1 x10^3/uL (0.0-0.2) Sodium Level 136 mmol/L (136-145) Potassium Level 3.9 mmol/L (3.5-5.1) Chloride Level 98 mmol/L (98-107) Carbon Dioxide Level 28 mmol/L (21-32) Anion Gap 10 (6-14) Blood Urea Nitrogen 33 mg/dL (7-20) H Creatinine 0.6 mg/dL (0.6-1.0) Estimated GFR (Cockcroft-Gault) 120.8 BUN/Creatinine Ratio 55 (6-20) H Glucose Level 258 mg/dL (70-99) H Calcium Level 9.1 mg/dL (8.5-10.1) Total Bilirubin 0.5 mg/dL (0.2-1.0) Aspartate Amino Transferase (AST) 13 U/L (15-37) L Alanine Aminotransferase (ALT) 25 U/L (14-59) Alkaline Phosphatase 92 U/L (46-116) Total Protein 8.2 g/dL (6.4-8.2) Albumin 4.0 g/dL (3.4-5.0) Albumin/Globulin Ratio 1.0 (1.0-1.7) Lipase 59 U/L (73-393) L Acetone Level Neg (NEG) Influenza Type A (Rapid) Negative (NEGATIVE) Influenza Type B (Rapid) Negative (NEGATIVE) Urine Collection Type Unknown Urine Color Yellow Urine Clarity Clear Urine pH 7.0 Urine Specific [place] 1.020 Urine Protein Trace (NEG-TRACE) Urine Glucose (UA) 500 mg/dL (NEG) Urine Ketones (Stick) Trace mg/dL (NEG) Urine Blood Neg (NEG) Urine Nitrite Neg (NEG) Urine Bilirubin Neg (NEG) Urine Urobilinogen Dipstick 0.2 mg/dL (0.2 mg/dL) Urine Leukocyte Esterase Neg (NEG) Urine RBC 0 /HPF (0-2) Urine WBC 5-10 /HPF (0-4) Urine Squamous Epithelial Cells Few /LPF Urine Bacteria Few /HPF (0-FEW) Urine Opiates Screen Pos (NEG) Urine Methadone Screen Neg (NEG) Urine Barbiturates Neg (NEG) Urine Phencyclidine Screen Neg (NEG) Urine Amphetamine/Methamphetamine Pos (NEG) Urine Benzodiazepines Screen Neg (NEG) Urine Cocaine Screen Neg (NEG) Urine Cannabinoids Screen Pos (NEG) Urine Ethyl Alcohol Neg (NEG) EKG EKG [] Radiology/Procedures Radiology/Procedures [] Course & Med Decision Making Course & Med Decision Making Pertinent Labs reviewed. (See chart for details) Evaluation of patient in ER showed 27-year-old female patient with history of type 1 diabetes mellitus and frequent emergency room visits because of DKA complaining of not feeling good and nausea and vomiting and myalgia. Patient had blood sugar of 247 at arrival to ER and treated with IV fluid and Zofran. Patient had negative flu and labs and unremarkable CO2 except for elevation of blood sugar. UA showed UTI. Patient treated with Bactrim and felt better. Plan discharge patient home to diagnose of urinary tract infection, nausea and vomiting and uncontrolled diabetes mellitus. [] Dragon Disclaimer Dragon Disclaimer This electronic medical record was generated, in whole or in part, using a voice recognition dictation system. Departure Departure: Impression: Primary Impression: Urinary tract infection Additional Impressions: Nausea and vomiting Dehydration Uncontrolled diabetes mellitus Disposition: HOME, SELF-CARE (At 2354) Condition: IMPROVED Referrals: ESVIN ROLLINS (PCP) Patient Instructions: Nausea and Vomiting, Type 1 Diabetes Mellitus, Adult, Urinary Tract Infection Additional Instructions: Continue her home medication Drink plenty of liquids Follow-up with your primary care physician in 2 or 3 days Return to emergency room if not getting better Scripts Ondansetron (ZOFRAN ODT) 4 Mg Tab.rapdis 1 TAB SL Q8HRS, #15 TAB Prov: ISRAEL WHITT MD 12/28/17 Sulfamethoxazole/Trimethoprim (BACTRIM DS TABLET) 1 Each Tablet 1 EACH PO BID, #14 TAB Prov: ISRAEL WHITT MD 12/27/17 Critical Care Time Critical care time was [80] minutes exclusive of procedures. Problem Qualifiers ISRAEL WHITT MD Dec 27, 2017 23:32
[2017-12-27 23:34] LABS: U PREG PATIENT NEGATIVE (NEG)
[2017-12-27] MEDS ORDERED: cefTRIAXone IV Push 1 GM VIAL. IVP ONE (23:55)
[2017-12-27] MEDS ORDERED: SULF1TAB24 PO (23:57)
[2017-12-27] MEDS ORDERED: ONDA4TAB10 SL (23:58)
[2017-12-28] MEDS ORDERED: ONDA4TAB10 SL (00:12)
[2017-12-28] MEDS ORDERED: SMZ/TMP 800/160MG TABLET. PO ONE (00:30)
== END 2017-12-28 00:01 | disposition home or self-care (01) ==
LOC: ER 20:52
DX: N39.0 Urinary tract infection, site not specified (principal); E86.0 Dehydration; E10.10 Type 1 diabetes mellitus with ketoacidosis without coma; Z88.6 Allergy status to analgesic agent; Z88.8 Allergy status to other drugs, medicaments and biological substances
CPT/HCPCS: 36415; 80053; 80307; 81001; 81025; 82010; 82947; 83690; 85025; 87086; 87804; 96361; 96374; 96375; 99284; J2405; J3010; G0479; J7030

== ENCOUNTER 2018-01-04 15:23 | Emergency (ER) | payer SELFPAY ==
[~2018-01-04] VITALS: Ht 170.2 cm; Wt 62.3 kg
[2018-01-04] MEDS ORDERED: IV NORMAL SALINE 1,000ML 1,000 ML IV SCH (15:47)
[2018-01-04 16:15] LABS: BILIRUBIN,URINE NEG (NEG); CLARITY,URINE CLOUDY; COLOR,URINE YELLOW; GLUCOSE,URINE >=1000 mg/dL (NEG)
[2018-01-04] MEDS ORDERED: INSULIN REGULAR 100 UNIT/ML 10ML VIAL. IV ONE (16:15)
[2018-01-04 16:16] LABS: BACTERIA,URINE 0 /HPF (0-FEW); NITRITE,URINE NEG (NEG); RBC,URINE RARE /HPF (0-2); SQUAMOUS EPITHELIAL CELL,UR MANY /LPF; UROBILINOGEN,URINE 0.2 mg/dL (0.2 mg/dL)
[2018-01-04 16:22] LABS: BASO % 0 % (0-3); EOS # 0.4 x10^3/uL (0.0-0.7); EOS % 6 % (0-3); HEMATOCRIT 38.5 % (36.0-47.0); HEMOGLOBIN 12.5 g/dL (12.0-15.5); LYMPH # 2.1 x10^3/uL (1.0-4.8); LYMPH % 31 % (24-48); MEAN CORPUSCULAR HEMOGLOBIN 29 pg (25-35); MEAN CORPUSCULAR HGB CONC 33 g/dL (31-37); MEAN CORPUSCULAR VOLUME 88 fL (79-100); MONO # 0.6 x10^3/uL (0.0-1.1); MONO % 8 % (0-9); NEUT # 3.9 x10^3uL (1.8-7.7); NEUT % 55 % (31-73); PLATELET COUNT 338 x10^3/uL (140-400); RED BLOOD COUNT 4.36 x10^6/uL (3.50-5.40); RED CELL DISTRIBUTION WIDTH 14.9 % (11.5-14.5)
[2018-01-04 16:31] LABS: CALCIUM 9.4 mg/dL (8.5-10.1); CREATININE 0.7 mg/dL (0.6-1.0); GFR 101.1; POTASSIUM 4.4 mmol/L (3.5-5.1)
[2018-01-04] MEDS ORDERED: ONDANSETRON PF 4 MG/2 ML VIAL. IV ONE (16:45)
[2018-01-04] MEDS ORDERED: KETOROLAC 30 MG/ML VIAL. IV ONE (17:00)
--- NOTE | 2018-01-04 17:13 | PHYS DOC ---
Past History Past Medical History: Asthma, Diabetes, GERD, Other Additional Past Medical Histor: pt reports several admissions for "high blood sugar" Past Surgical History: Other Smoking: Less than 1pk/day Alcohol Use: None Drug Use: None Adult General Chief Complaint Chief Complaint: HYPERGLYCEMIA HPI HPI Patient is a 27 year old F who presents with hyperglycemia, nausea/vomiting and left-sided abdominal pain. She says she has not been a little hold anything down for the past 2-3 days. She states that her pain is in the left flank. It is sharp with fluctuating intensity and is associated with movement. She denies bowel or bladder abnormalities. She does have a history of gastroparesis. She has no other associated symptoms this time. She has no other exacerbating or relieving factors. Review of Systems Review of Systems Constitutional: Denies fever or chills [] Eyes: Denies change in visual acuity, redness, or eye pain [] HENT: Denies nasal congestion or sore throat [] Respiratory: Denies cough or shortness of breath [] Cardiovascular: No additional information not addressed in HPI [] GI: Denies bloody stools or diarrhea [] : Denies hematuria [] Musculoskeletal: Denies joint pain [] Integument: Denies rash or skin lesions [] Neurologic: Denies headache, focal weakness or sensory changes [] Endocrine: Denies polyuria or polydipsia [] All other systems were reviewed and found to be within normal limits, except as documented in this note. Family History Family History No pertinent family medical history was reported Current Medications Current Medications Current Medications Medications (Trade) Dose Ordered Sig/Chevy Start Time Stop Time Status Last Admin Dose Admin Insulin Human Regular (NovoLIN R) 10 unit 1X ONCE 01/04/18 16:15 01/04/18 16:16 DC 01/04/18 16:15 10 UNIT Ketorolac Tromethamine (Toradol) 30 mg 1X ONCE 01/04/18 17:00 01/04/18 17:01 DC 01/04/18 16:57 30 MG Ondansetron HCl (Zofran) 4 mg 1X ONCE 01/04/18 16:45 01/04/18 16:46 DC 01/04/18 16:50 4 MG Sodium Chloride 1,000 ml @ 1,000 mls/hr Q1H 01/04/18 15:47 01/04/18 16:46 DC 01/04/18 16:15 1,000 MLS/HR Allergies Allergies Allergies Coded Allergies Type Severity Reaction Last Updated Verified acetaminophen Allergy Intermediate HIVES 01/04/18 Yes adhesive tape Allergy Intermediate 01/04/18 Yes Physical Exam Physical Exam Constitutional: Well developed, well nourished, no acute distress, non-toxic appearance. [] HENT: Normocephalic, atraumatic, Eyes: PERRLA, EOMI, conjunctiva normal, no discharge. [] Neck: Normal range of motion, no tenderness, supple, no stridor. [] Cardiovascular:Heart rate regular rhythm, Lungs & Thorax: Bilateral breath sounds clear to auscultation [] Abdomen: Bowel sounds normal, soft, no masses, no pulsatile masses. [] Mild left sided flank and back pain, nonfocal and inconsistent on exam. Skin: Warm, dry, no erythema, no rash. [] Back: No tenderness, no CVA tenderness. [] Extremities: No tenderness, no cyanosis, no clubbing, ROM intact, no edema. [] Neurologic: Alert and oriented X 3, normal motor function, normal sensory function, no focal deficits noted. [] Psychologic: Affect normal, judgement normal, mood normal. [] Current Patient Data Vital Signs Vital Signs Date Time Temp Pulse Resp B/P (MAP) Pulse Ox O2 Delivery O2 Flow Rate FiO2 01/04/18 16:58 115 16 122/79 (93) 98 Room Air 01/04/18 15:35 97.8 Lab Results Laboratory Tests Test 01/04/18 15:38 01/04/18 15:39 01/04/18 16:00 Glucose (Fingerstick) 469 mg/dL (70-99) H Urine Collection Type Unknown Urine Color Yellow Urine Clarity Cloudy Urine pH 7.0 Urine Specific [place] 1.015 Urine Protein Neg (NEG-TRACE) Urine Glucose (UA) >=1000 mg/dL (NEG) Urine Ketones (Stick) Neg mg/dL (NEG) Urine Blood Neg (NEG) Urine Nitrite Neg (NEG) Urine Bilirubin Neg (NEG) Urine Urobilinogen Dipstick 0.2 mg/dL (0.2 mg/dL) Urine Leukocyte Esterase Neg (NEG) Urine RBC Rare /HPF (0-2) Urine WBC 5-10 /HPF (0-4) Urine Squamous Epithelial Cells Many /LPF Urine Bacteria 0 /HPF (0-FEW) White Blood Count 7.0 x10^3/uL (4.0-11.0) Red Blood Count 4.36 x10^6/uL (3.50-5.40) Hemoglobin 12.5 g/dL (12.0-15.5) Hematocrit 38.5 % (36.0-47.0) Mean Corpuscular Volume 88 fL (79-100) Mean Corpuscular Hemoglobin 29 pg (25-35) Mean Corpuscular Hemoglobin Concent 33 g/dL (31-37) Red Cell Distribution Width 14.9 % (11.5-14.5) H Platelet Count 338 x10^3/uL (140-400) Neutrophils (%) (Auto) 55 % (31-73) Lymphocytes (%) (Auto) 31 % (24-48) Monocytes (%) (Auto) 8 % (0-9) Eosinophils (%) (Auto) 6 % (0-3) H Basophils (%) (Auto) 0 % (0-3) Neutrophils # (Auto) 3.9 x10^3uL (1.8-7.7) Lymphocytes # (Auto) 2.1 x10^3/uL (1.0-4.8) Monocytes # (Auto) 0.6 x10^3/uL (0.0-1.1) Eosinophils # (Auto) 0.4 x10^3/uL (0.0-0.7) Basophils # (Auto) 0.0 x10^3/uL (0.0-0.2) Sodium Level 134 mmol/L (136-145) L Potassium Level 4.4 mmol/L (3.5-5.1) Chloride Level 96 mmol/L (98-107) L Carbon Dioxide Level 27 mmol/L (21-32) Anion Gap 11 (6-14) Blood Urea Nitrogen 26 mg/dL (7-20) H Creatinine 0.7 mg/dL (0.6-1.0) Estimated GFR (Cockcroft-Gault) 101.1 Glucose Level 402 mg/dL (70-99) H Calcium Level 9.4 mg/dL (8.5-10.1) EKG EKG Normal sinus tach Radiology/Procedures Radiology/Procedures Imaging was declined Course & Med Decision Making Course & Med Decision Making Pertinent Labs and Imaging studies reviewed. (See chart for details) [] Dragon Disclaimer Dragon Disclaimer This electronic medical record was generated, in whole or in part, using a voice recognition dictation system. Departure Departure: Impression: Primary Impression: Type 1 diabetes Additional Impression: Hyperglycemia Disposition: 01 HOME, SELF-CARE Condition: STABLE Referrals: ESVIN ROLLINS (PCP) Patient Instructions: Hyperglycemia Additional Instructions: Alonso was seen in the emergency department for high blood sugar and abdominal pain. No emergency medical condition was found on history or physical exam. She did have normal labs with the exception of high blood sugar. She was given insulin and IV fluids. She was also given Toradol for pain. She was encouraged to return to the emergency room if she develops new or worsening symptoms. She was advised follow-up with her primary care doctor as soon as possible for further management. Problem Qualifiers Primary Impression: Type 1 diabetes Diabetes mellitus complication status: with unspecified complications Qualified Codes: E10.8 - Type 1 diabetes mellitus with unspecified complications PERNELL YODER MD Jan 04, 2018 17:13
[2018-01-04 17:30] VITALS: BP 121/74
--- NOTE | 2018-01-04 17:59 | EKG ---
[address] [address] Test Date: 2018-01-04 Test Time: 16:20:55 Pat Name: CHALO RAYMUNDO Department: Room: Gender: F Set Off Blocker: : 1990 Requested By: PERNELL YODER Order Number: [id number] Reading MD: Mik Flowers Measurements Intervals Wirt Rate: 109 P: 56 CA: 144 QRS: 74 QRSD: 82 T: 28 QT: 324 QTc: 438 Interpretive Statements SINUS TACHYCARDIA LEFT ATRIAL ABNORMALITY ABNORMAL ECG RI6.01 Compared to ECG 12/20/2017 12:48:04 Atrial abnormality now present ST (T wave) deviation no longer present Electronically Signed On 01-10-2018 9:29:33 [employer] by Mik Flowers
== END 2018-01-04 17:33 | disposition home or self-care (01) ==
LOC: ER 15:23
DX: E10.65 Type 1 diabetes mellitus with hyperglycemia (principal); J45.909 Unspecified asthma, uncomplicated; K21.9 Gastro-esophageal reflux disease without esophagitis; F17.200 Nicotine dependence, unspecified, uncomplicated; Z88.8 Allergy status to other drugs, medicaments and biological substances; Z88.6 Allergy status to analgesic agent
CPT/HCPCS: 36415; 80048; 81001; 82947; 85025; 87086; 93005; 96361; 96374; 96375; 99285; J1815; J1885; J2405; 87186; J7030

== ENCOUNTER 2018-01-13 11:23 | Inpatient (IN) | payer SELFPAY ==
[~2018-01-13] VITALS: Ht 170.2 cm; Wt 63.0 kg
[2018-01-13] VITALS (9 sets, daily range): BP systolic 102–122; BP diastolic 52–80
[2018-01-13] MEDS ORDERED: 0.9 % SODIUM CHLORIDE 10 ML DISP.SYRIN. IV PRN (12:00)
[2018-01-13] MEDS ORDERED: IV NORMAL SALINE 1,000ML 1,000 ML IV SCH (12:00)
[2018-01-13] MEDS ORDERED: INSULIN REGULAR 100 UNIT/ML 10ML VIAL. IV ONE (12:15)
[2018-01-13] MEDS ORDERED: ONDANSETRON PF 4 MG/2 ML VIAL. IV ONE (12:15)
[2018-01-13] MEDS ORDERED: INSULIN REGULAR 100 UNIT/ML 10ML VIAL. ONE (12:20)
[2018-01-13] MEDS ORDERED: SODIUM CHLORIDE ONE (12:20)
[2018-01-13] MEDS ORDERED: IV NORMAL SALINE 1,000ML 1,000 ML IV ONE (12:30)
[2018-01-13] MEDS ORDERED: INSULIN REGULAR 150 UNIT in 0.9 % SODIUM CHLORIDE 150ML 150 ML IV ONE (12:30)
[2018-01-13 12:33] LABS: ALBUMIN 4.3 g/dL (3.4-5.0); ALBUMIN/GLOBULIN RATIO 0.9 (1.0-1.7); CALCIUM 9.7 mg/dL (8.5-10.1); CREATININE 1.6 mg/dL (0.6-1.0); MAGNESIUM 2.3 mg/dL (1.8-2.4); PHOSPHORUS 6.3 mg/dL (2.6-4.7); POTASSIUM 5.3 mmol/L (3.5-5.1); TOTAL PROTEIN 9.1 g/dL (6.4-8.2)
[2018-01-13] MEDS ORDERED: ONDANSETRON PF 4 MG/2 ML VIAL. IV PRN ×2 (13:00→15:00)
[2018-01-13] MEDS: IV NORMAL SALINE 1,000ML 1,000 ML IV SCH ×3 (13:00→23:00)
--- NOTE | 2018-01-13 13:12 | PHYS DOC ---
Past History Past Medical History: Diabetes Additional Past Medical Histor: pt reports several admissions for "high blood sugar" Past Surgical History: No Surgical History Smoking: Less than 1pk/day Alcohol Use: None Drug Use: None Adult General Chief Complaint Chief Complaint: HYPERGLYCEMIA HPI HPI 27-year-old female patient with history of type 1 diabetes and frequent episodes of DKA and noncompliant with her treatment states she ran out of her insulin for the last 3 days and didn't get any insulin last 3 days. Patient complaining of very frequent episodes of vomiting and abdominal generalized pain for the last 3 days with generalized weakness. She complaining of urinary frequency without fever and chills, focal neuro deficit, diarrhea and constipation, chest pain and shortness of breath. Patient states her blood sugar was high today. Review of Systems Review of Systems Constitutional: Denies fever or chills [] Eyes: Denies change in visual acuity, redness, or eye pain [] HENT: Denies nasal congestion or sore throat [] Respiratory: Denies cough or shortness of breath [] Cardiovascular: No additional information not addressed in HPI [] GI: Reports abdominal pain, nausea, vomiting, denies bloody stools or diarrhea [ ] : Denies dysuria or hematuria [] Musculoskeletal: Denies back pain or joint pain [] Integument: Denies rash or skin lesions [] Neurologic: Denies headache, focal weakness or sensory changes [] Endocrine: Denies polyuria or polydipsia [] All other systems were reviewed and found to be within normal limits, except as documented in this note. Current Medications Current Medications Current Medications Medications (Trade) Dose Ordered Sig/Chevy Start Time Stop Time Status Last Admin Dose Admin Fentanyl Citrate (Fentanyl 2ml Vial) 50 mcg 1X ONCE 01/13/18 13:00 01/13/18 13:01 DC Insulin Human Regular (NovoLIN R) 100 unit STK-MED ONCE 01/13/18 12:20 01/13/18 12:21 DC Insulin Human Regular 150 unit/ Sodium Chloride 151.5 ml @ 0 mls/hr CONT PRN PRN 01/13/18 13:15 UNV Ondansetron HCl (Zofran) 4 mg PRN Q4HRS PRN 01/13/18 13:00 01/14/18 12:59 Sodium Chloride 1,000 ml @ 200 mls/hr Q5H 01/13/18 13:00 01/14/18 12:59 Sodium Chloride (Normal Saline Flush) 10 ml QSHIFT PRN 01/13/18 12:00 Allergies Allergies Allergies Coded Allergies Type Severity Reaction Last Updated Verified acetaminophen Allergy Intermediate HIVES 01/04/18 Yes adhesive tape Allergy Intermediate 01/04/18 Yes Physical Exam Physical Exam Constitutional: Moderate distress, non-toxic appearance, anxious, actively vomiting. [] HENT: Normocephalic, atraumatic, bilateral external ears normal, oropharynx dry , no oral exudates, nose normal. [] Eyes: PERRLA, EOMI, conjunctiva normal, no discharge. [] Neck: Normal range of motion, no tenderness, supple, no stridor. [] Cardiovascular: Tachycardia,clear to auscultation [] Abdomen: Bowel sounds normal, soft, no tenderness, no masses, no pulsatile masses. [] Skin: Warm, dry, no erythema, no rash. [] Back: No tenderness, no CVA tenderness. [] Extremities: No tenderness, no cyanosis, no clubbing, ROM intact, no edema. [] Neurologic: Alert and oriented X 3, normal motor function, normal sensory function, no focal deficits noted. [] Psychologic:Anxious Current Patient Data Vital Signs Vital Signs Date Time Temp Pulse Resp B/P (MAP) Pulse Ox O2 Delivery O2 Flow Rate FiO2 01/13/18 11:31 98.2 128 18 96 Room Air Lab Results Laboratory Tests Test 01/13/18 11:45 Sodium Level 129 mmol/L (136-145) L Potassium Level 5.3 mmol/L (3.5-5.1) H Chloride Level 87 mmol/L (98-107) L Carbon Dioxide Level 13 mmol/L (21-32) L Anion Gap 29 (6-14) H Blood Urea Nitrogen 36 mg/dL (7-20) H Creatinine 1.6 mg/dL (0.6-1.0) H Estimated GFR (Cockcroft-Gault) 39.0 BUN/Creatinine Ratio 23 (6-20) H Glucose Level 538 mg/dL (70-99) *H Calcium Level 9.7 mg/dL (8.5-10.1) Phosphorus Level 6.3 mg/dL (2.6-4.7) H Magnesium Level 2.3 mg/dL (1.8-2.4) Total Bilirubin 1.0 mg/dL (0.2-1.0) Aspartate Amino Transferase (AST) 17 U/L (15-37) Alanine Aminotransferase (ALT) 22 U/L (14-59) Alkaline Phosphatase 142 U/L (46-116) H Total Protein 9.1 g/dL (6.4-8.2) H Albumin 4.3 g/dL (3.4-5.0) Albumin/Globulin Ratio 0.9 (1.0-1.7) L Lipase 58 U/L (73-393) L Acetone Level Mod pos (NEG) EKG EKG [] Radiology/Procedures Radiology/Procedures [] Course & Med Decision Making Course & Med Decision Making Pertinent Labs reviewed. (See chart for details) In addition of patient in ER showed 27-year-old female patient with history of type 1 diabetes and frequent episodes of DKA with high blood sugar and DKA symptom. Patient had actively vomiting and very dehydrated and anxious. Patient treated with 2 L of normal saline, bolus and drip of insulin, Zofran and fentanyl and felt better. Patient refuses ABG. Dr. Machado informed at 1250 and agreed with plan of care and admitting the patient. UA is pending. Dragon Disclaimer Dragon Disclaimer This electronic medical record was generated, in whole or in part, using a voice recognition dictation system. Departure Departure: Impression: Primary Impression: DKA (diabetic ketoacidoses) Additional Impressions: Severe dehydration Nausea and vomiting Acute renal insufficiency Noncompliance Disposition: ADMITTED INPATIENT (At 1154) Admitting Physician: Ramirez Machado Condition: GUARDED Referrals: ESVIN ROLLINS (PCP) Critical Care Time Critical care time was [80] minutes exclusive of procedures. Problem Qualifiers ISRAEL WHITT MD Jan 13, 2018 13:12
[2018-01-13] MEDS ORDERED: INSULIN REGULAR IV PRN (13:15)
[2018-01-13] MEDS ORDERED: NORMAL SALINE IV PRN (13:15)
[2018-01-13 13:36] LABS: BASO % 0 % (0-3); EOS % 0 % (0-3); HEMATOCRIT 38.5 % (36.0-47.0); HEMOGLOBIN 12.3 g/dL (12.0-15.5); LYMPH # 0.9 x10^3/uL (1.0-4.8); LYMPH % 9 % (24-48); MEAN CORPUSCULAR HEMOGLOBIN 29 pg (25-35); MEAN CORPUSCULAR HGB CONC 32 g/dL (31-37); MEAN CORPUSCULAR VOLUME 89 fL (79-100); MONO # 0.2 x10^3/uL (0.0-1.1); MONO % 3 % (0-9); NEUT # 8.4 x10^3uL (1.8-7.7); NEUT % 88 % (31-73); PLATELET COUNT 331 x10^3/uL (140-400); RED BLOOD COUNT 4.32 x10^6/uL (3.50-5.40); RED CELL DISTRIBUTION WIDTH 14.2 % (11.5-14.5); WHITE BLOOD COUNT 9.6 x10^3/uL (4.0-11.0)
[2018-01-13] MEDS ORDERED: METOCLOPRAMIDE HCL 10 MG/2 ML VIAL. IV PRN (15:00)
--- NOTE | 2018-01-13 15:29 | NUR ---
The patient, CHALO RAYMUNDO, 27 y/o, F admitted by GABRIELLA CASTANEDA MD, was given written information regarding hospital policies, unit procedures and contact persons. Valuables were checked and admission assessment performed. Pt AOx4. BP stable, HR tachy, oxygen sat 98% on RA, temp 98.6 Orally. Lungs CTA. Blood glucose 263, adjusted insulin drip to 4.1units/hr. NS infusing at 150mL/hr. BMP to be drawn every two hours per Dr. Castaneda until levels are WNL. Pt complaint at this moment is thirst and "wanting to sleep." Will continue to check glucose every hour and adjust drip. Will CTM.
[2018-01-13 16:18] LABS: CALCIUM 8.4 mg/dL (8.5-10.1); CREATININE 1.4 mg/dL (0.6-1.0); GFR 45.5; POTASSIUM 4.4 mmol/L (3.5-5.1)
[2018-01-13] MEDS: traMADol 50 MG TABLET PO PRN (17:50)
[2018-01-13] MEDS: POTASSIUM CL 20MEQ D5-0.45NACL 1,000 ML IV SCH (17:51)
[2018-01-13 18:24] LABS: CALCIUM 8.4 mg/dL (8.5-10.1); CREATININE 1.3 mg/dL (0.6-1.0); GFR 49.5
[2018-01-13 18:25] LABS: POTASSIUM 5.5 mmol/L (3.5-5.1)
--- NOTE | 2018-01-13 18:51 | NUR ---
Talked to pt about refusing every two hours lab draws, pt agrees to continue with every two hours lab draws. Per Dr. Machado, if pt continues to refuse lab draws, the pt will have to sign AMA form due to lack of information to treat pt correctly based on lab results. Informed pt of this, pt agrees and understands. Orders continued to draw BMP every two hours and switched Iv fluids from D51/2+20K to NS at 150mL/hr. Pt complaining of pain in abdomen, even after administering PRN (see eMAR), zofran administered to pt due to nausea, other measures provided to relieve pain. Will CTM.
[2018-01-13 20:28] LABS: CALCIUM 8.3 mg/dL (8.5-10.1); CREATININE 1.3 mg/dL (0.6-1.0); GFR 49.5; POTASSIUM 4.6 mmol/L (3.5-5.1)
[2018-01-13] MEDS ORDERED: IV DEXTROSE 5% - 0.9 % NACL 1,000 ML IV SCH (20:45)
[2018-01-13] MEDS: FAMOTIDINE 20 MG/2 ML VIAL IVP SCH (22:48)
[2018-01-14] VITALS (10 sets, daily range): BP systolic 96–143; BP diastolic 52–99
[2018-01-14 01:33] LABS: CALCIUM 7.9 mg/dL (8.5-10.1); CREATININE 1.1 mg/dL (0.6-1.0); POTASSIUM 4.1 mmol/L (3.5-5.1)
[2018-01-14] MEDS: POTASSIUM CL 20MEQ D5-0.45NACL 1,000 ML IV SCH (02:00)
[2018-01-14 05:48] LABS: BASO # 0.1 x10^3/uL (0.0-0.2); BASO % 1 % (0-3); EOS # 0.1 x10^3/uL (0.0-0.7); EOS % 2 % (0-3); HEMATOCRIT 27.8 % (36.0-47.0); HEMOGLOBIN 9.3 g/dL (12.0-15.5); LYMPH # 2.5 x10^3/uL (1.0-4.8); LYMPH % 30 % (24-48); MEAN CORPUSCULAR HEMOGLOBIN 29 pg (25-35); MEAN CORPUSCULAR HGB CONC 34 g/dL (31-37); MEAN CORPUSCULAR VOLUME 86 fL (79-100); MONO # 0.8 x10^3/uL (0.0-1.1); MONO % 10 % (0-9); NEUT # 4.8 x10^3uL (1.8-7.7); NEUT % 58 % (31-73); PLATELET COUNT 284 x10^3/uL (140-400); RED BLOOD COUNT 3.24 x10^6/uL (3.50-5.40); RED CELL DISTRIBUTION WIDTH 13.9 % (11.5-14.5); WHITE BLOOD COUNT 8.2 x10^3/uL (4.0-11.0)
[2018-01-14 05:59] LABS: CALCIUM 7.5 mg/dL (8.5-10.1); MAGNESIUM 1.8 mg/dL (1.8-2.4); POTASSIUM 3.5 mmol/L (3.5-5.1)
[2018-01-14] MEDS: POTASSIUM CHLORIDE 40 MEQ in IV 1/2 NORMAL SALINE 1,000 ML IV SCH ×2 (07:32→16:42)
[2018-01-14] MEDS: INSULIN DETEMIR 300 UNITS/3 ML INSULN.PEN. SQ SCH ×2 (07:32→20:35)
[2018-01-14] MEDS: FAMOTIDINE 20 MG/2 ML VIAL IVP SCH (08:55)
[2018-01-14] MEDS ORDERED: DEXTROSE 50% 25 GM / 50ML DISP.SYRIN. IV PRN (09:00)
[2018-01-14] MEDS: INSULIN ASPART 300 UNITS/3 ML INSULN.PEN SQ SCH ×6 (09:32→20:35)
[2018-01-14] MEDS: FAMOTIDINE 20 MG TABLET PO SCH ×2 (09:58→20:34)
[2018-01-14] MEDS: MAGNESIUM OXIDE 400 MG TABLET PO SCH (09:58)
--- NOTE | 2018-01-14 11:04 | PDOC1 ---
History of Present Illness Reason for Visit: High blood sugars History of Present Illness Pt is well-known to this service, history of Type 1 DM and frequent visits for DKA. Hx of drug abuse, though denies recent use. Pt reports she ran out of her insulin, does not have insurance. Had been out for 3 days prior to coming to hospital. Pt states she has also been having sinus-type symptoms for about a week with sinus pain, nasal congestion, and feeling tired. Denies diarrhea. No vomiting since prior to admission. Reports she was able to eat breakfast with no trouble today. Chief Complaint: HYPERGLYCEMIA Allergies: Coded Allergies: acetaminophen (Verified Allergy, Intermediate, HIVES, 01/04/18) "WHEN I HAD MY ANKLE BX THEY GAVE ME TYLENOL AND I GOT HIVES ON MY LEG." adhesive tape (Verified Allergy, Intermediate, 01/04/18) Past Medical History Cardiac: No pertinent hx GI: Other (Gastroparesis (due to DM)) Endocrine: Diabetes (Type 1) Past Surgical History: No pertinent history Family History: No pertinent hx Past Social History Smoke: No Alcohol: none Drugs: Crystal meth Lives: Alone Review of Systems Review Of Systems Fourteen system , review of systems has been reviewed. See HPI for pertinent positives and negative responses, other bustos all other systems are negative, non pertinent or non contributory Allergies: Coded Allergies: acetaminophen (Verified Allergy, Intermediate, HIVES, 01/04/18) "WHEN I HAD MY ANKLE BX THEY GAVE ME TYLENOL AND I GOT HIVES ON MY LEG." adhesive tape (Verified Allergy, Intermediate, 01/04/18) Medications Current Medications Sodium Chloride 1,000 ml @ 1,000 mls/hr Q1H IV ; Start 01/13/18 at 12:00; Stop 01/13/18 at 12:59; Status DC Sodium Chloride (Normal Saline Flush) 10 ml QSHIFT PRN IV AFTER MEDS AND BLOOD DRAWS; Start 01/13/18 at 12:00 Ondansetron HCl (Zofran) 4 mg 1X ONCE IV ; Start 01/13/18 at 12:15; Stop at 12:18; Status DC Sodium Chloride 1,000 ml @ 1,000 mls/hr 1X ONCE IV ; Start 01/13/18 at 12:30; Stop 01/13/18 at 13:29; Status DC Insulin Human Regular (NovoLIN R) 10 unit 1X ONCE IV Last administered on 01/13at 12:47; Start 01/13/18 at 12:15; Stop 01/13/18 at 12:17; Status DC Insulin Human Regular 150 unit/ Sodium Chloride 151.5 ml @ 6 mls/hr 1X ONCE IV Last administered on 01/13/18at 13:02; Start 01/13/18 at 12:30; Stop at 13:44 Sodium Chloride 0 ml @ As Directed STK-MED ONCE .ROUTE ; Start 01/13/18 at 12:20 ; Stop 01/13/18 at 12:21; Status DC Insulin Human Regular (NovoLIN R) 100 unit STK-MED ONCE .ROUTE ; Start 01/13/18 at 12:20; Stop 01/13/18 at 12:21; Status DC Fentanyl Citrate (Fentanyl 2ml Vial) 50 mcg 1X ONCE IV Last administered on at 13:00; Start 01/13/18 at 13:00; Stop 01/13/18 at 13:01; Status DC Ondansetron HCl (Zofran) 4 mg PRN Q4HRS PRN IV NAUSEA/VOMITING Last administered on 01/13/18at 18:23; Start 01/13/18 at 13:00; Stop 01/14/18 at 12:59 Sodium Chloride 1,000 ml @ 200 mls/hr Q5H IV ; Start 01/13/18 at 13:00; Stop at 06:18; Status DC Insulin Human Regular 100 unit/ Sodium Chloride 101 ml @ 0 mls/hr CONT PRN PRN IV PER PROTOCOL; Start 01/13/18 at 13:15 Famotidine (Pepcid Vial) 20 mg BID IVP Last administered on 01/14/18at 08:55; Start 01/13/18 at 21:00; Stop 01/14/18 at 09:18; Status DC Metoclopramide HCl (Reglan Vial) 10 mg PRN Q6HRS PRN IV NAUSEA/VOMITING; Start 01/13/18 at 15:00; Stop 01/14/18 at 09:18; Status DC Ondansetron HCl (Zofran) 4 mg PRN Q6HRS PRN IV NAUSEA/VOMITING; Start 01/13/18 at 15:00; Stop 01/14/18 at 09:18; Status DC Tramadol HCl (Ultram) 50 mg PRN Q6HRS PRN PO PAIN Last administered on at 17:50; Start 01/13/18 at 17:45 Potassium Chloride/Dextrose/ Sod Cl 1,000 ml @ 125 mls/hr Q8H IV Last administered on 01/13/18at 17:51; Start 01/13/18 at 18:00; Stop 01/14/18 at 06:18 ; Status DC Dextrose/Sodium Chloride 1,000 ml @ 100 mls/hr Q10H IV Last administered on at 20:49; Start 01/13/18 at 20:45; Stop 01/14/18 at 06:20; Status DC Potassium Chloride 40 meq/ Sodium Chloride 1,020 ml @ 100 mls/hr [id number] IV Last administered on 01/14/18at 07:32; Start 01/14/18 at 06:30 Insulin Detemir (Levemir) 20 units BID SQ Last administered on 01/14/18at 07:32 ; Start 01/14/18 at 09:00 Insulin Aspart (NovoLOG) 5 units TIDAC SQ Last administered on 01/14/18at 09:32 ; Start 01/14/18 at 09:00 Insulin Aspart (NovoLOG) 0-9 UNITS QIDACHS SQ Last administered on 01/14/18at 09 :33; Start 01/14/18 at 11:30 Dextrose 12.5 gm PRN Q15MIN PRN IV SEE COMMENTS; Start 01/14/18 at 09:00 Metoclopramide HCl (Reglan) 10 mg QID PO ; Start 01/14/18 at 13:00 Ondansetron HCl (Zofran Odt) 4 mg Q8HRS PO ; Start 01/14/18 at 14:00 Magnesium Oxide (Magnesium Oxide) 400 mg DAILY PO Last administered on at 09:58; Start 01/14/18 at 09:30 Famotidine (Pepcid) 20 mg BID PO Last administered on 01/14/18at 09:58; Start at 09:30 Active Scripts Active Zofran Odt (Ondansetron) 4 Mg Tab.rapdis 1 Tab SL Q8HRS Bactrim Ds Tablet (Sulfamethoxazole/Trimethoprim) 1 Each Tablet 1 Each PO BID Magnesium (Magnesium Oxide) 400 Mg Capsule 1 Cap PO BID 60 Days Levemir (Insulin Detemir) 100 Unit/1 Ml Vial 20 Unit SQ BID 30 Days resume tonight at bedtime last dose this morning Potassium Chloride 20 Meq Tablet.er 20 Meq PO BID 3 Days Zantac (Ranitidine Hcl) 150 Mg Tablet 1 Tab PO BID Zofran Odt (Ondansetron) 4 Mg Tab.rapdis 1 Tab SL Q8HRS Reglan (Metoclopramide Hcl) 10 Mg Tablet 1 Tab PO QID Novolog Flexpen (Insulin Aspart) 100 Unit/1 Ml Insuln.pen 0-9 Unit SQ ACHS FOLLOW SUPPLEMENTAL SCALE GIVEN TO YOU Exam Vital Signs Vital Signs Date Time Temp Pulse Resp B/P (MAP) Pulse Ox O2 Delivery O2 Flow Rate FiO2 01/14/18 09:12 107 129/75 (93) 01/14/18 07:40 97.5 01/14/18 06:34 16 97 Room Air General Appearance: Alert, Oriented X3, Cooperative, No acute distress HEENT: Atraumatic, PERRLA, EOMI, Mucous membr. moist/pink, Other (Bilateral maxillary sinuses TTP with swollen nasal passages. External ears normal. Neck supple, no JVD, no LAD, no bruits) Respiratory: Clear to auscultation, Normal air movement Heart: Regular rate, Normal S1, Normal S2, No murmurs Abdominal: Normal bowel sounds, Soft, No tenderness, No hepatospenomegaly, No masses Extremities: No cyanosis, No edema, Normal pulses, No tenderness/swelling Skin: No rashes, No breakdown Neuro: Normal speech, Strength at 5/5 X4 ext, Normal tone, Sensation intact, Cranial nerves 3-12 NL, Reflexes 2+ Psych/Mental Status: Mental status NL, Mood NL Assessment/Plan Assessment/Plan 1. DKA: Pt off insulin drip. Cont IVF. BG's improving. Now on home basal insulin. Hopeful for D/c by tomorrow, will need to d/w critical care educator about getting insulin. 2. Acute maxillary sinusitis: Doxycycline 100 mg BID x 10 days. Flonase. 3. DVT proph: Encourage ambulation TID. Pt fully ambulatory, low risk for DVT. SCD's while in bed. COURSE Allergies Coded Allergies Type Severity Reaction Last Updated Verified acetaminophen Allergy Intermediate HIVES 01/04/18 Yes adhesive tape Allergy Intermediate 01/04/18 Yes Laboratory Tests Test 01/13/18 11:45 01/13/18 13:26 01/13/18 14:09 01/13/18 14:25 Sodium Level 129 mmol/L (136-145) Potassium Level 5.3 mmol/L (3.5-5.1) Chloride Level 87 mmol/L (98-107) Carbon Dioxide Level 13 mmol/L (21-32) Anion Gap 29 (6-14) Blood Urea Nitrogen 36 mg/dL (7-20) Creatinine 1.6 mg/dL (0.6-1.0) Estimated GFR (Cockcroft-Gault) 39.0 BUN/Creatinine Ratio 23 (6-20) Glucose Level 538 mg/dL (70-99) Calcium Level 9.7 mg/dL (8.5-10.1) Phosphorus Level 6.3 mg/dL (2.6-4.7) Magnesium Level 2.3 mg/dL (1.8-2.4) Total Bilirubin 1.0 mg/dL (0.2-1.0) Aspartate Amino Transf (AST/SGOT) 17 U/L (15-37) Alanine Aminotransferase (ALT/SGPT) 22 U/L (14-59) Alkaline Phosphatase 142 U/L (46-116) Total Protein 9.1 g/dL (6.4-8.2) Albumin 4.3 g/dL (3.4-5.0) Albumin/Globulin Ratio 0.9 (1.0-1.7) Lipase 58 U/L (73-393) Acetone Level Mod pos (NEG) White Blood Count 9.6 x10^3/uL (4.0-11.0) Red Blood Count 4.32 x10^6/uL (3.50-5.40) Hemoglobin 12.3 g/dL (12.0-15.5) Hematocrit 38.5 % (36.0-47.0) Mean Corpuscular Volume 89 fL (79-100) Mean Corpuscular Hemoglobin 29 pg (25-35) Mean Corpuscular Hemoglobin Concent 32 g/dL (31-37) Red Cell Distribution Width 14.2 % (11.5-14.5) Platelet Count 331 x10^3/uL (140-400) Neutrophils (%) (Auto) 88 % (31-73) Lymphocytes (%) (Auto) 9 % (24-48) Monocytes (%) (Auto) 3 % (0-9) Eosinophils (%) (Auto) 0 % (0-3) Basophils (%) (Auto) 0 % (0-3) Neutrophils # (Auto) 8.4 x10^3uL (1.8-7.7) Lymphocytes # (Auto) 0.9 x10^3/uL (1.0-4.8) Monocytes # (Auto) 0.2 x10^3/uL (0.0-1.1) Eosinophils # (Auto) 0.0 x10^3/uL (0.0-0.7) Basophils # (Auto) 0.0 x10^3/uL (0.0-0.2) Glucose (Fingerstick) 338 mg/dL (70-99) 263 mg/dL (70-99) Test 01/13/18 15:27 01/13/18 16:00 01/13/18 16:27 01/13/18 17:26 Glucose (Fingerstick) 206 mg/dL (70-99) 166 mg/dL (70-99) 119 mg/dL (70-99) Sodium Level 134 mmol/L (136-145) Potassium Level 4.4 mmol/L (3.5-5.1) Chloride Level 98 mmol/L (98-107) Carbon Dioxide Level 15 mmol/L (21-32) Anion Gap 21 (6-14) Blood Urea Nitrogen 36 mg/dL (7-20) Creatinine 1.4 mg/dL (0.6-1.0) Estimated GFR (Cockcroft-Gault) 45.5 Glucose Level 192 mg/dL (70-99) Calcium Level 8.4 mg/dL (8.5-10.1) Test 01/13/18 18:00 01/13/18 18:25 01/13/18 19:33 01/13/18 20:10 Sodium Level 132 mmol/L (136-145) 133 mmol/L (136-145) Potassium Level 5.5 mmol/L (3.5-5.1) 4.6 mmol/L (3.5-5.1) Chloride Level 97 mmol/L (98-107) 99 mmol/L (98-107) Carbon Dioxide Level 14 mmol/L (21-32) 17 mmol/L (21-32) Anion Gap 21 (6-14) 17 (6-14) Blood Urea Nitrogen 35 mg/dL (7-20) 32 mg/dL (7-20) Creatinine 1.3 mg/dL (0.6-1.0) 1.3 mg/dL (0.6-1.0) Estimated GFR (Cockcroft-Gault) 49.5 49.5 Glucose Level 211 mg/dL (70-99) 139 mg/dL (70-99) Calcium Level 8.4 mg/dL (8.5-10.1) 8.3 mg/dL (8.5-10.1) Glucose (Fingerstick) 218 mg/dL (70-99) 172 mg/dL (70-99) Test 01/13/18 20:40 01/13/18 21:45 01/13/18 22:50 01/14/18 00:00 Glucose (Fingerstick) 107 mg/dL (70-99) 93 mg/dL (70-99) 134 mg/dL (70-99) 203 mg/dL (70-99) Test 01/14/18 01:00 01/14/18 01:09 01/14/18 02:13 01/14/18 03:26 Sodium Level 135 mmol/L (136-145) Potassium Level 4.1 mmol/L (3.5-5.1) Chloride Level 103 mmol/L (98-107) Carbon Dioxide Level 18 mmol/L (21-32) Anion Gap 14 (6-14) Blood Urea Nitrogen 28 mg/dL (7-20) Creatinine 1.1 mg/dL (0.6-1.0) Estimated GFR (Cockcroft-Gault) 60.0 Glucose Level 201 mg/dL (70-99) Calcium Level 7.9 mg/dL (8.5-10.1) Glucose (Fingerstick) 189 mg/dL (70-99) 153 mg/dL (70-99) 152 mg/dL (70-99) Test 01/14/18 04:27 01/14/18 05:40 01/14/18 05:46 01/14/18 07:28 Glucose (Fingerstick) 115 mg/dL (70-99) 85 mg/dL (70-99) 191 mg/dL (70-99) White Blood Count 8.2 x10^3/uL (4.0-11.0) Red Blood Count 3.24 x10^6/uL (3.50-5.40) Hemoglobin 9.3 g/dL (12.0-15.5) Hematocrit 27.8 % (36.0-47.0) Mean Corpuscular Volume 86 fL (79-100) Mean Corpuscular Hemoglobin 29 pg (25-35) Mean Corpuscular Hemoglobin Concent 34 g/dL (31-37) Red Cell Distribution Width 13.9 % (11.5-14.5) Platelet Count 284 x10^3/uL (140-400) Neutrophils (%) (Auto) 58 % (31-73) Lymphocytes (%) (Auto) 30 % (24-48) Monocytes (%) (Auto) 10 % (0-9) Eosinophils (%) (Auto) 2 % (0-3) Basophils (%) (Auto) 1 % (0-3) Neutrophils # (Auto) 4.8 x10^3uL (1.8-7.7) Lymphocytes # (Auto) 2.5 x10^3/uL (1.0-4.8) Monocytes # (Auto) 0.8 x10^3/uL (0.0-1.1) Eosinophils # (Auto) 0.1 x10^3/uL (0.0-0.7) Basophils # (Auto) 0.1 x10^3/uL (0.0-0.2) Sodium Level 139 mmol/L (136-145) Potassium Level 3.5 mmol/L (3.5-5.1) Chloride Level 108 mmol/L (98-107) Carbon Dioxide Level 22 mmol/L (21-32) Anion Gap 9 (6-14) Blood Urea Nitrogen 23 mg/dL (7-20) Creatinine 1.0 mg/dL (0.6-1.0) Estimated GFR (Cockcroft-Gault) 67.0 Glucose Level 96 mg/dL (70-99) Calcium Level 7.5 mg/dL (8.5-10.1) Magnesium Level 1.8 mg/dL (1.8-2.4) Test 01/14/18 08:39 01/14/18 09:25 Glucose (Fingerstick) 221 mg/dL (70-99) 323 mg/dL (70-99) Current Medications Medications (Trade) Dose Ordered Sig/Chevy Route PRN Reason Start Time Stop Time Status Last Admin Dose Admin Sodium Chloride 1,000 ml @ 1,000 mls/hr Q1H IV 01/13/18 12:00 01/13/18 12:59 DC Sodium Chloride (Normal Saline Flush) 10 ml QSHIFT PRN IV AFTER MEDS AND BLOOD DRAWS 01/13/18 12:00 Ondansetron HCl (Zofran) 4 mg 1X ONCE IV 01/13/18 12:15 01/13/18 12:18 DC Sodium Chloride 1,000 ml @ 1,000 mls/hr 1X ONCE IV 01/13/18 12:30 01/13/18 13:29 DC Insulin Human Regular (NovoLIN R) 10 unit 1X ONCE IV 01/13/18 12:15 01/13/18 12:17 DC 01/13/18 12:47 Insulin Human Regular 150 unit/ Sodium Chloride 151.5 ml @ 6 mls/hr 1X ONCE IV 01/13/18 12:30 01/14/18 13:44 01/13/18 13:02 Sodium Chloride 0 ml @ As Directed STK-MED ONCE .ROUTE 01/13/18 12:20 01/13/18 12:21 DC Insulin Human Regular (NovoLIN R) 100 unit STK-MED ONCE .ROUTE 01/13/18 12:20 01/13/18 12:21 DC Fentanyl Citrate (Fentanyl 2ml Vial) 50 mcg 1X ONCE IV 01/13/18 13:00 01/13/18 13:01 DC 01/13/18 13:00 Ondansetron HCl (Zofran) 4 mg PRN Q4HRS PRN IV NAUSEA/VOMITING 01/13/18 13:00 01/14/18 12:59 01/13/18 18:23 Sodium Chloride 1,000 ml @ 200 mls/hr Q5H IV 01/13/18 13:00 01/14/18 06:18 DC Insulin Human Regular 100 unit/ Sodium Chloride 101 ml @ 0 mls/hr CONT PRN PRN IV PER PROTOCOL 2/24/18 13:15 Famotidine (Pepcid Vial) 20 mg BID IVP 01/13/18 21:00 01/14/18 09:18 DC 01/14/18 08:55 Metoclopramide HCl (Reglan Vial) 10 mg PRN Q6HRS PRN IV NAUSEA/VOMITING 01/13/18 15:00 01/14/18 09:18 DC Ondansetron HCl (Zofran) 4 mg PRN Q6HRS PRN IV NAUSEA/VOMITING 01/13/18 15:00 01/14/18 09:18 DC Tramadol HCl (Ultram) 50 mg PRN Q6HRS PRN PO PAIN 01/13/18 17:45 01/13/18 17:50 Potassium Chloride/Dextrose/ Sod Cl 1,000 ml @ 125 mls/hr Q8H IV 01/13/18 18:00 01/14/18 06:18 DC 01/13/18 17:51 Dextrose/Sodium Chloride 1,000 ml @ 100 mls/hr Q10H IV 01/13/18 20:45 01/14/18 06:20 DC 01/13/18 20:49 Potassium Chloride 40 meq/ Sodium Chloride 1,020 ml @ 100 mls/hr [id number] IV 01/14/18 06:30 01/14/18 07:32 Insulin Detemir (Levemir) 20 units BID SQ 01/14/18 09:00 01/14/18 07:32 Insulin Aspart (NovoLOG) 5 units TIDAC SQ 01/14/18 09:00 01/14/18 09:32 Insulin Aspart (NovoLOG) 0-9 UNITS QIDACHS SQ 01/14/18 11:30 01/14/18 09:33 Dextrose 12.5 gm PRN Q15MIN PRN IV SEE COMMENTS 01/14/18 09:00 Metoclopramide HCl (Reglan) 10 mg QID PO 01/14/18 13:00 Ondansetron HCl (Zofran Odt) 4 mg Q8HRS PO 01/14/18 14:00 Magnesium Oxide (Magnesium Oxide) 400 mg DAILY PO 01/14/18 09:30 01/14/18 09:58 Famotidine (Pepcid) 20 mg BID PO 01/14/18 09:30 01/14/18 09:58 I & O 01/14/18 00:00 Intake Total 480 ml Balance 480 ml Vital Signs Date Time Temp Pulse Resp B/P (MAP) Pulse Ox O2 Delivery O2 Flow Rate FiO2 01/14/18 09:12 107 129/75 (93) 01/14/18 07:40 97.5 01/14/18 06:34 16 97 Room Air GABRIELLA CASTANEDA MD Jan 14, 2018 11:04
[2018-01-14] MEDS: METOCLOPRAMIDE 10 MG TABLET PO SCH ×3 (12:47→20:34)
[2018-01-14] MEDS: ONDANSETRON ODT 4 MG TAB.RAPDIS PO SCH ×2 (12:48→22:05)
[2018-01-14] MEDS: traMADol 50 MG TABLET PO PRN ×2 (15:51→22:49)
[2018-01-14 15:52] LABS: AMPHETAMINE/METHAMPHETAMINE NEG (NEG); BARBITURATES NEG (NEG); BENZODIAZEPINES NEG (NEG); CANNABINOIDS NEG (NEG); COCAINE NEG (NEG); METHADONE NEG (NEG); OPIATES NEG (NEG); PHENCYCLIDINE NEG (NEG)
[2018-01-14 16:10] LABS: BACTERIA,URINE FEW /HPF (0-FEW); BILIRUBIN,URINE NEG (NEG); CLARITY,URINE CLEAR; COLOR,URINE STRAW; GLUCOSE,URINE 500 mg/dL (NEG); NITRITE,URINE NEG (NEG); SQUAMOUS EPITHELIAL CELL,UR MOD /LPF; UROBILINOGEN,URINE 0.2 mg/dL (0.2 mg/dL)
[2018-01-14] MEDS: DOXYCYCLINE HYCLATE 100 MG TABLET PO SCH (20:34)
[2018-01-14] MEDS: LACTOBACILLUS RHAMNOSUS GG 1 CAPSULE. PO SCH (20:34)
[2018-01-15] MEDS: POTASSIUM CHLORIDE 40 MEQ in IV 1/2 NORMAL SALINE 1,000 ML IV SCH ×3 (01:41→19:36)
[2018-01-15] MEDS: ONDANSETRON ODT 4 MG TAB.RAPDIS PO SCH ×3 (05:53→20:43)
[2018-01-15 06:26] VITALS: BP 144/98
[2018-01-15] MEDS: METOCLOPRAMIDE 10 MG TABLET PO SCH ×4 (08:11→20:36)
[2018-01-15] MEDS: MAGNESIUM OXIDE 400 MG TABLET PO SCH (08:11)
[2018-01-15] MEDS: DOXYCYCLINE HYCLATE 100 MG TABLET PO SCH ×2 (08:11→20:36)
[2018-01-15] MEDS: FAMOTIDINE 20 MG TABLET PO SCH ×2 (08:12→20:36)
[2018-01-15] MEDS: INSULIN ASPART 300 UNITS/3 ML INSULN.PEN SQ SCH ×7 (08:20→20:40)
[2018-01-15] MEDS: INSULIN DETEMIR 300 UNITS/3 ML INSULN.PEN. SQ SCH ×2 (08:21→20:39)
[2018-01-15] MEDS: FLUTICASONE 50MCG/NASAL SPRAY 16GM BOTTLE. NS SCH (10:09)
[2018-01-15] MEDS: LACTOBACILLUS RHAMNOSUS GG 1 CAPSULE. PO SCH ×2 (12:47→20:36)
[2018-01-15 14:08] VITALS: BP 135/89
--- NOTE | 2018-01-15 16:23 | RAD ---
Examination: CT maxillofacial bones without contrast History: History of headache, sinus tenderness. Comparison: None available Technique: Axial CT images of the maxillary facial bones were performed without contrast. Coronal and sagittal reformats performed. PQRS Compliance Statement: One or more of the following individualized dose reduction techniques were utilized for this examination: 1. Automated exposure control 2. Adjustment of the mA and/or kV according to patient size 3. Use of iterative reconstruction technique Findings: The visualized intracranial portion grossly appears unremarkable. Bilateral orbital globes appear intact. Orbital fat is maintained. Moderate mucosal thickening identified in the bilateral ethmoidal sinuses, left greater than right. Opacity identified in the left nasal cavity. There is blockage of the left ostiomeatal complex. The bilateral maxillary sinuses, ethmoidal sinuses, frontal sinuses are clear. The bilateral mastoid air cells are clear. Impression: 1. Moderate mucosal thickening identified in the bilateral ethmoidal sinus, left greater than right with blockage of the left ostiomeatal complex likely sinus disease. There is density identified in the left nasal cavity probably mucus.
[2018-01-15] MEDS: traMADol 50 MG TABLET PO PRN (19:40)
[2018-01-15 20:07] VITALS: BP 131/82
[2018-01-15 21:21] LABS: INFLUENZA A PATIENT NEGATIVE (NEGATIVE); INFLUENZA B PATIENT NEGATIVE (NEGATIVE)
[2018-01-15 22:30] VITALS: BP 145/84
[2018-01-16] MEDS: traMADol 50 MG TABLET PO PRN (01:52)
[2018-01-16] MEDS: ONDANSETRON ODT 4 MG TAB.RAPDIS PO SCH (04:40)
[2018-01-16] MEDS: POTASSIUM CHLORIDE 40 MEQ in IV 1/2 NORMAL SALINE 1,000 ML IV SCH (04:40)
[2018-01-16 05:15] VITALS: BP 117/82
[2018-01-16 07:14] LABS: BASO # 0.1 x10^3/uL (0.0-0.2); BASO % 1 % (0-3); EOS # 0.2 x10^3/uL (0.0-0.7); EOS % 3 % (0-3); HEMATOCRIT 30.3 % (36.0-47.0); HEMOGLOBIN 10.4 g/dL (12.0-15.5); LYMPH # 1.8 x10^3/uL (1.0-4.8); LYMPH % 28 % (24-48); MEAN CORPUSCULAR HEMOGLOBIN 29 pg (25-35); MEAN CORPUSCULAR HGB CONC 34 g/dL (31-37); MEAN CORPUSCULAR VOLUME 85 fL (79-100); MONO # 0.9 x10^3/uL (0.0-1.1); MONO % 13 % (0-9); NEUT # 3.6 x10^3uL (1.8-7.7); NEUT % 55 % (31-73); PLATELET COUNT 235 x10^3/uL (140-400); RED BLOOD COUNT 3.58 x10^6/uL (3.50-5.40); WHITE BLOOD COUNT 6.5 x10^3/uL (4.0-11.0)
[2018-01-16 07:29] LABS: ALBUMIN 2.5 g/dL (3.4-5.0); ALBUMIN/GLOBULIN RATIO 0.7 (1.0-1.7); CALCIUM 8.6 mg/dL (8.5-10.1); CREATININE 0.8 mg/dL (0.6-1.0); GFR 86.7; POTASSIUM 4.5 mmol/L (3.5-5.1); TOTAL BILIRUBIN 0.1 mg/dL (0.2-1.0); TOTAL PROTEIN 6.3 g/dL (6.4-8.2)
[2018-01-16] MEDS: FAMOTIDINE 20 MG TABLET PO SCH (08:00)
[2018-01-16] MEDS: MAGNESIUM OXIDE 400 MG TABLET PO SCH (08:00)
[2018-01-16] MEDS: DOXYCYCLINE HYCLATE 100 MG TABLET PO SCH (08:00)
[2018-01-16] MEDS: METOCLOPRAMIDE 10 MG TABLET PO SCH (08:00)
[2018-01-16] MEDS: FLUTICASONE 50MCG/NASAL SPRAY 16GM BOTTLE. NS SCH (08:00)
[2018-01-16] MEDS: INSULIN ASPART 300 UNITS/3 ML INSULN.PEN SQ SCH ×2 (08:05)
[2018-01-16] MEDS: INSULIN DETEMIR 300 UNITS/3 ML INSULN.PEN. SQ SCH (08:06)
[2018-01-16] MEDS: LACTOBACILLUS RHAMNOSUS GG 1 CAPSULE. PO SCH (08:08)
[2018-01-16 10:39] VITALS: BP 132/89
--- NOTE | 2018-01-16 14:53 | NUR ---
NSG NOTE; PT LEFT AMA PT STATES SHE IS FEELING BETTER AND REQUESTED AMA PAPERWORK SHE DOES NOT WANT TO WAIT TO SEE DR FOSS. SHE WAS ADVISED TO STAY TO SEE THE DOCTOR BUT CHOSE TO LEAVE AMA
== END 2018-01-16 12:45 | disposition left against medical advice (07) | DRG 639 ==
LOC: ER 11:23 → ICU 14:17 → 1 SOUTH 01-14 15:23
PROVIDERS: ADMIT Family Medicine; ATTEND Family Medicine
DX: E10.10 Type 1 diabetes mellitus with ketoacidosis without coma (principal); K31.84 Gastroparesis; E10.43 Type 1 diabetes mellitus with diabetic autonomic (poly)neuropathy; J01.00 Acute maxillary sinusitis, unspecified; E86.0 Dehydration; N28.9 Disorder of kidney and ureter, unspecified; Z79.4 Long term (current) use of insulin; Z91.19 Patient's noncompliance with other medical treatment and regimen; Z88.8 Allergy status to other drugs, medicaments and biological substances; Z91.09 Other allergy status, other than to drugs and biological substances
CPT/HCPCS: 36415; 70486; 80048; 80053; 80307; 81001; 82010; 82947; 83690; 83735; 83930; 84100; 85025; 87086; 87804; 96365; 96375; 96376; 99292; J1815; J2405; J3010; J7030; J7042; J8597; Q0162; S0028; 99291-25; G0479

== ENCOUNTER 2018-01-18 09:34 | Emergency (ER) | payer SELFPAY ==
[~2018-01-18] VITALS: Ht 170.2 cm; Wt 59.0 kg
[2018-01-18] MEDS ORDERED: ONDANSETRON PF 4 MG/2 ML VIAL. IV ONE (10:00)
[2018-01-18] MEDS ORDERED: IV RINGERS SOLUTION,LACTATED 1,000 ML IV ONE (10:00)
[2018-01-18] MEDS ORDERED: IV NORMAL SALINE 1,000ML 1,000 ML IV ONE (10:00)
[2018-01-18 10:13] LABS: BASO # 0.1 x10^3/uL (0.0-0.2); BASO % 1 % (0-3); EOS # 0.2 x10^3/uL (0.0-0.7); EOS % 4 % (0-3); HEMATOCRIT 36.3 % (36.0-47.0); HEMOGLOBIN 11.8 g/dL (12.0-15.5); LYMPH # 1.9 x10^3/uL (1.0-4.8); LYMPH % 36 % (24-48); MEAN CORPUSCULAR HEMOGLOBIN 28 pg (25-35); MEAN CORPUSCULAR HGB CONC 33 g/dL (31-37); MEAN CORPUSCULAR VOLUME 87 fL (79-100); MONO # 0.6 x10^3/uL (0.0-1.1); MONO % 11 % (0-9); NEUT # 2.5 x10^3uL (1.8-7.7); NEUT % 48 % (31-73); PLATELET COUNT 370 x10^3/uL (140-400); RED BLOOD COUNT 4.16 x10^6/uL (3.50-5.40); RED CELL DISTRIBUTION WIDTH 14.2 % (11.5-14.5); WHITE BLOOD COUNT 5.3 x10^3/uL (4.0-11.0)
[2018-01-18] MEDS ORDERED: HALOPERIDOL LACT 5 MG/ML VIAL. IVP ONE (10:15)
[2018-01-18 10:21] LABS: ALBUMIN 3.3 g/dL (3.4-5.0); ALBUMIN/GLOBULIN RATIO 0.8 (1.0-1.7); CALCIUM 8.9 mg/dL (8.5-10.1); CREATININE 0.6 mg/dL (0.6-1.0); GFR 120.8; MAGNESIUM 1.8 mg/dL (1.8-2.4); POTASSIUM 3.8 mmol/L (3.5-5.1); TOTAL BILIRUBIN 0.2 mg/dL (0.2-1.0); TOTAL PROTEIN 7.6 g/dL (6.4-8.2)
--- NOTE | 2018-01-18 10:32 | PHYS DOC ---
Past History Past Medical History: Diabetes Additional Past Medical Histor: pt reports several admissions for "high blood sugar" Past Surgical History: No Surgical History Smoking: Less than 1pk/day Alcohol Use: None Drug Use: None Adult General Chief Complaint Chief Complaint: HYPERGLYCEMIA HPI HPI Patient is a 27-year-old female presenting to the emergency department for evaluation of hyperglycemia with abdominal pain nausea and vomiting. Patient said that she used her home Accu-Chek and it did not read a number rather is at high. EMS did not check her blood sugar. Patient is well-known to this emergency department with frequent admissions and ED visits. She was just released from the hospital several days ago and was seen at [facility] yesterday. She is insulin dependent diabetic looking through the notes appears that she does not have insurance and does not take her insulin at home. She says that she has gastroparesis and saw a GI physician in several months ago and they recommended continuing Reglan. She has retching sounds but does not actually vomit rather she spits. Review of Systems Review of Systems Constitutional: Denies fever or chills [] Eyes: Denies change in visual acuity, redness, or eye pain [] HENT: Denies nasal congestion or sore throat [] Respiratory: Denies cough or shortness of breath [] Cardiovascular: No additional information not addressed in HPI [] GI: + abdominal pain, nausea, vomiting. No bloody stools or diarrhea [] : Denies dysuria or hematuria [] Musculoskeletal: Denies back pain or joint pain [] Integument: Denies rash or skin lesions [] Neurologic: Denies headache, focal weakness or sensory changes [] All other systems were reviewed and found to be within normal limits, except as documented in this note. Current Medications Current Medications Current Medications Medications (Trade) Dose Ordered Sig/Chevy Start Time Stop Time Status Last Admin Dose Admin Fentanyl Citrate (Fentanyl 2ml Vial) 75 mcg 1X ONCE 01/18/18 10:00 01/18/18 10:01 DC 01/18/18 10:16 75 MCG Haloperidol Lactate (Haldol) 3 mg 1X ONCE 01/18/18 10:15 01/18/18 10:16 DC 01/18/18 10:17 3 MG Lactated Ringer's 1,000 ml @ 1,000 mls/hr 1X ONCE 01/18/18 10:00 01/18/18 10:59 Ondansetron HCl (Zofran) 8 mg 1X ONCE 01/18/18 10:00 01/18/18 10:01 DC 01/18/18 10:16 8 MG Sodium Chloride 1,000 ml @ 1,000 mls/hr 1X ONCE 01/18/18 10:00 01/18/18 10:59 01/18/18 10:15 1,000 MLS/HR Allergies Allergies Allergies Coded Allergies Type Severity Reaction Last Updated Verified acetaminophen Allergy Intermediate HIVES 01/04/18 Yes adhesive tape Allergy Intermediate 01/04/18 Yes Physical Exam Physical Exam Constitutional: Well developed, well nourished, no acute distress, non-toxic appearance. [] HENT: Normocephalic, atraumatic, bilateral external ears normal, oropharynx moist, no oral exudates, nose normal. [] Eyes: PERRLA, EOMI, conjunctiva normal, no discharge. [] Neck: Normal range of motion, no tenderness, supple, no stridor. [] Cardiovascular:Heart rate tachycardic with regular rhythm, no murmur [] Lungs & Thorax: Bilateral breath sounds clear to auscultation [] Abdomen: Bowel sounds normal, soft, mild epigastric tenderness, no rebound or guarding, no masses, no pulsatile masses. [] Skin: Warm, dry, no erythema, no rash. [] Back: No tenderness, no CVA tenderness. [] Extremities: No tenderness, no cyanosis, no clubbing, ROM intact, no edema. [] Neurologic: Alert and oriented X 3, normal motor function, normal sensory function, no focal deficits noted. [] Current Patient Data Vital Signs Vital Signs Date Time Temp Pulse Resp B/P (MAP) Pulse Ox O2 Delivery O2 Flow Rate FiO2 01/18/18 10:18 111 20 157/98 (117) 100 Room Air Lab Results Laboratory Tests Test 01/18/18 09:55 White Blood Count 5.3 x10^3/uL (4.0-11.0) Red Blood Count 4.16 x10^6/uL (3.50-5.40) Hemoglobin 11.8 g/dL (12.0-15.5) L Hematocrit 36.3 % (36.0-47.0) Mean Corpuscular Volume 87 fL (79-100) Mean Corpuscular Hemoglobin 28 pg (25-35) Mean Corpuscular Hemoglobin Concent 33 g/dL (31-37) Red Cell Distribution Width 14.2 % (11.5-14.5) Platelet Count 370 x10^3/uL (140-400) Neutrophils (%) (Auto) 48 % (31-73) Lymphocytes (%) (Auto) 36 % (24-48) Monocytes (%) (Auto) 11 % (0-9) H Eosinophils (%) (Auto) 4 % (0-3) H Basophils (%) (Auto) 1 % (0-3) Neutrophils # (Auto) 2.5 x10^3uL (1.8-7.7) Lymphocytes # (Auto) 1.9 x10^3/uL (1.0-4.8) Monocytes # (Auto) 0.6 x10^3/uL (0.0-1.1) Eosinophils # (Auto) 0.2 x10^3/uL (0.0-0.7) Basophils # (Auto) 0.1 x10^3/uL (0.0-0.2) Sodium Level 133 mmol/L (136-145) L Potassium Level 3.8 mmol/L (3.5-5.1) Chloride Level 97 mmol/L (98-107) L Carbon Dioxide Level 24 mmol/L (21-32) Anion Gap 12 (6-14) Blood Urea Nitrogen 20 mg/dL (7-20) Creatinine 0.6 mg/dL (0.6-1.0) Estimated GFR (Cockcroft-Gault) 120.8 BUN/Creatinine Ratio 33 (6-20) H Glucose Level 145 mg/dL (70-99) H Calcium Level 8.9 mg/dL (8.5-10.1) Magnesium Level 1.8 mg/dL (1.8-2.4) Total Bilirubin 0.2 mg/dL (0.2-1.0) Aspartate Amino Transferase (AST) 18 U/L (15-37) Alanine Aminotransferase (ALT) 17 U/L (14-59) Alkaline Phosphatase 90 U/L (46-116) Total Protein 7.6 g/dL (6.4-8.2) Albumin 3.3 g/dL (3.4-5.0) L Albumin/Globulin Ratio 0.8 (1.0-1.7) L Lipase 53 U/L (73-393) L Ethyl Alcohol Level < 10 mg/dL (0-10) EKG EKG [] Radiology/Procedures Radiology/Procedures [] Course & Med Decision Making Course & Med Decision Making Patient is extremely noncompliant whether from outside forces or from her own choosing is unclear. Patient will get labs urinalysis treat symptoms and reassess. Patient had normal blood sugar and normal labs. Accu-Chek was used to confirm and in fact her blood sugar is at an acceptable level in the mid 100s. Patient did not get better with fentanyl and Zofran however after given Haldol she stopped vomiting and felt much better. She is able to tolerate fluids by mouth with no difficulty and she has normal vital signs and is no obvious distress so she will be discharged in stable condition. I think her main issue at this point is her gastroparesis and I recommended she follow with a GI specialist to consider putting in a stimulator for her as her problem is not her blood sugar rather her nausea and vomiting. Dragon Disclaimer Dragon Disclaimer This electronic medical record was generated, in whole or in part, using a voice recognition dictation system. Departure Departure: Impression: Primary Impression: Diabetic gastroparesis Additional Impression: Nausea and vomiting Disposition: 01 HOME, SELF-CARE Condition: STABLE Referrals: ESVIN ROLLINS (PCP) KAUSHIK CHOUDHURY MD Patient Instructions: Gastroparesis Problem Qualifiers LINDY NICK DO Jan 18, 2018 10:32
[2018-01-18 11:07] VITALS: BP 135/88
== END 2018-01-18 11:23 | disposition home or self-care (01) ==
LOC: ER 09:34
DX: K31.84 Gastroparesis (principal); E11.65 Type 2 diabetes mellitus with hyperglycemia; E11.43 Type 2 diabetes mellitus with diabetic autonomic (poly)neuropathy; F17.200 Nicotine dependence, unspecified, uncomplicated; Z88.6 Allergy status to analgesic agent; Z88.8 Allergy status to other drugs, medicaments and biological substances
CPT/HCPCS: 36415; 80053; 82010; 82947; 83690; 83735; 85025; 96361; 96374; 96375; 99284; G0480; J1630; J2405; J3010; J7030

== ENCOUNTER 2018-01-20 10:04 | Emergency (ER) | payer SELFPAY ==
[~2018-01-20] VITALS: Ht 170.2 cm; Wt 62.3 kg
[2018-01-20] MEDS ORDERED: IV NORMAL SALINE 1,000ML 1,000 ML IV SCH (10:22)
[2018-01-20] MEDS ORDERED: PROMETHAZINE 25 MG/ML VIAL IV ONE (10:23)
[2018-01-20] MEDS ORDERED: 0.9 % SODIUM CHLORIDE 10 ML DISP.SYRIN. IV PRN (10:30)
[2018-01-20] MEDS ORDERED: IV NORMAL SALINE 1,000ML 1,000 ML IV ONE (10:30)
[2018-01-20] MEDS ORDERED: INSULIN REGULAR 150 UNIT in 0.9 % SODIUM CHLORIDE 150ML 150 ML IV ONE (10:30)
[2018-01-20] MEDS ORDERED: PROMETHAZINE IM 25 MG/ML VIAL IM ONE ×2 (10:30→10:45)
[2018-01-20] MEDS ORDERED: 0.9 % SODIUM CHLORIDE 150ML 150 ML ONE (10:43)
[2018-01-20] MEDS ORDERED: INSULIN REGULAR 100 UNIT/ML 10ML VIAL. ONE (10:43)
[2018-01-20] MEDS ORDERED: INSULIN REGULAR 100 UNIT/ML 10ML VIAL. IV ONE (10:45)
[2018-01-20 11:15] VITALS: BP 126/77
[2018-01-20 11:17] LABS: BASO # 0.1 x10^3/uL (0.0-0.2); BASO % 1 % (0-3); EOS # 0.1 x10^3/uL (0.0-0.7); EOS % 1 % (0-3); HEMATOCRIT 37.5 % (36.0-47.0); HEMOGLOBIN 12.4 g/dL (12.0-15.5); LYMPH # 1.6 x10^3/uL (1.0-4.8); LYMPH % 23 % (24-48); MEAN CORPUSCULAR HEMOGLOBIN 29 pg (25-35); MEAN CORPUSCULAR HGB CONC 33 g/dL (31-37); MEAN CORPUSCULAR VOLUME 87 fL (79-100); MONO # 0.1 x10^3/uL (0.0-1.1); MONO % 2 % (0-9); NEUT # 5.3 x10^3uL (1.8-7.7); NEUT % 73 % (31-73); PLATELET COUNT 456 x10^3/uL (140-400); RED BLOOD COUNT 4.32 x10^6/uL (3.50-5.40); RED CELL DISTRIBUTION WIDTH 13.5 % (11.5-14.5); WHITE BLOOD COUNT 7.2 x10^3/uL (4.0-11.0)
--- NOTE | 2018-01-20 11:25 | PHYS DOC ---
Past History Past Medical History: Diabetes, Other Additional Past Medical Histor: pt reports several admissions for "high blood sugar" Past Surgical History: No Surgical History Smoking: Less than 1pk/day Alcohol Use: None Drug Use: Amphetamine Adult General Chief Complaint Chief Complaint: BLOOD SUGAR PROBLEM HPI HPI 27-year-old female patient with history of type 1 diabetes mellitus and frequent DKA and emergency room visit with history of methamphetamine abuse was admitted with diagnosis of DKA recently and signed AGAINST MEDICAL ADVICE 4 days ago. Patient states for the last 4 days she has had frequent nonbloody vomiting and unable to take her insulin and her blood sugar was high today. Patient complaining of pain all over and generalized weakness. Patient admitted to use methamphetamine 2 days ago. Patient has active vomiting and unable to give complete history. Review of Systems Review of Systems Constitutional: Denies fever or chills [] Eyes: Denies change in visual acuity, redness, or eye pain [] HENT: Denies nasal congestion or sore throat [] Respiratory: Denies cough or shortness of breath [] Cardiovascular: No additional information not addressed in HPI [] GI: Report nausea, vomiting, denies bloody stools or diarrhea [] : Denies dysuria or hematuria [] Musculoskeletal: Denies back pain or joint pain [] Integument: Denies rash or skin lesions [] Neurologic: Denies headache, focal weakness or sensory changes [] Endocrine: Denies polyuria or polydipsia [] All other systems were reviewed and found to be within normal limits, except as documented in this note. Current Medications Current Medications Current Medications Medications (Trade) Dose Ordered Sig/Chevy Start Time Stop Time Status Last Admin Dose Admin Insulin Human Regular (NovoLIN R) 100 unit STK-MED ONCE 01/20/18 10:43 01/20/18 10:44 DC Insulin Human Regular 150 unit/ Sodium Chloride 151.5 ml @ 5 mls/hr 1X ONCE 01/20/18 10:30 01/21/18 16:47 01/20/18 11:12 5 MLS/HR Promethazine HCl (Phenergan Im) 50 mg 1X ONCE 01/20/18 10:45 01/20/18 10:46 DC 01/20/18 10:51 25 MG Promethazine HCl (Phenergan) 25 mg STK-MED ONCE 01/20/18 10:23 01/20/18 10:24 DC Sodium Chloride 150 ml @ As Directed STK-MED ONCE 01/20/18 10:43 01/20/18 10:44 DC Sodium Chloride (Normal Saline Flush) 10 ml QSHIFT PRN 01/20/18 10:30 Allergies Allergies Allergies Coded Allergies Type Severity Reaction Last Updated Verified acetaminophen Allergy Intermediate HIVES 01/18/18 Yes adhesive tape Allergy Intermediate 01/18/18 Yes Physical Exam Physical Exam Constitutional: Moderate distress, non-toxic appearance and actively vomiting clear material. [] HENT: Normocephalic, atraumatic, oropharynx dry Eyes: PERRLA, EOMI, conjunctiva normal, no discharge. [] Neck: Normal range of motion, no tenderness, supple, no stridor. [] Cardiovascular: Tachycardia, no murmur [] Lungs & Thorax: Bilateral breath sounds clear to auscultation [] Abdomen: Bowel sounds normal, soft, no tenderness, no masses, no pulsatile masses. [] Skin: Warm, clammy, no erythema, no rash. [] Back: No tenderness, no CVA tenderness. [] Extremities: No tenderness, no cyanosis, no clubbing, ROM intact, no edema. [] Neurologic: Alert and oriented X 3, normal motor function, normal sensory function, no focal deficits noted. [] Psychologic: Anxious Current Patient Data Vital Signs Vital Signs Date Time Temp Pulse Resp B/P (MAP) Pulse Ox O2 Delivery O2 Flow Rate FiO2 01/20/18 11:15 133 18 126/77 (93) 98 Room Air 01/20/18 10:09 98.0 Lab Results Laboratory Tests Test 01/20/18 10:14 01/20/18 11:04 Glucose (Fingerstick) 575 mg/dL (70-99) *H White Blood Count 7.2 x10^3/uL (4.0-11.0) Red Blood Count 4.32 x10^6/uL (3.50-5.40) Hemoglobin 12.4 g/dL (12.0-15.5) Hematocrit 37.5 % (36.0-47.0) Mean Corpuscular Volume 87 fL (79-100) Mean Corpuscular Hemoglobin 29 pg (25-35) Mean Corpuscular Hemoglobin Concent 33 g/dL (31-37) Red Cell Distribution Width 13.5 % (11.5-14.5) Platelet Count 456 x10^3/uL (140-400) H Neutrophils (%) (Auto) 73 % (31-73) Lymphocytes (%) (Auto) 23 % (24-48) L Monocytes (%) (Auto) 2 % (0-9) Eosinophils (%) (Auto) 1 % (0-3) Basophils (%) (Auto) 1 % (0-3) Neutrophils # (Auto) 5.3 x10^3uL (1.8-7.7) Lymphocytes # (Auto) 1.6 x10^3/uL (1.0-4.8) Monocytes # (Auto) 0.1 x10^3/uL (0.0-1.1) Eosinophils # (Auto) 0.1 x10^3/uL (0.0-0.7) Basophils # (Auto) 0.1 x10^3/uL (0.0-0.2) EKG EKG [] Radiology/Procedures Radiology/Procedures [] Course & Med Decision Making Course & Med Decision Making Pertinent Labs reviewed. (See chart for details) Evaluation of patient in ER showed 27-year-old female patient history of frequent DKA and emergency room visits and abdomen abuse complaining of vomiting and high blood sugar for the last 4 days after she left AMA. Patient had actively vomiting and treated with IM Phenergan, and IV line was started and 2 L of normal saline and bolus and drip of insulin was given with improvement of her condition. Blood sugar gradually dropped to 314 and patient did not have any more vomiting. Patient did not give a urine sample. Dr. Pereira on -call hospitalist was informed at 1039 and recommended to transfer patient to [facility] for more evaluation and treatment and possible placement of port a cath. Dr. Alfonso accepted Transfer to [facility] at 1103. Dragon Disclaimer Dragon Disclaimer This electronic medical record was generated, in whole or in part, using a voice recognition dictation system. Departure Departure: Impression: Primary Impression: DKA (diabetic ketoacidoses) Additional Impressions: Intractable nausea and vomiting Methamphetamine abuse Tobacco use disorder Chronic renal insufficiency Hypomagnesemia Myalgia Disposition: 02 XFER SHT-TRM HOSP (At 1103 [facility]) Condition: GUARDED Referrals: ESVIN ROLLINS (PCP) Critical Care Time Critical care time was [80] minutes exclusive of procedures. Problem Qualifiers ISRAEL WHITT MD Jan 20, 2018 11:25
[2018-01-20 11:27] LABS: ALBUMIN 3.8 g/dL (3.4-5.0); ALBUMIN/GLOBULIN RATIO 0.8 (1.0-1.7); CALCIUM 9.6 mg/dL (8.5-10.1); CREATININE 1.1 mg/dL (0.6-1.0); MAGNESIUM 1.7 mg/dL (1.8-2.4); PHOSPHORUS 4.4 mg/dL (2.6-4.7); POTASSIUM 4.6 mmol/L (3.5-5.1); TOTAL BILIRUBIN 0.6 mg/dL (0.2-1.0); TOTAL PROTEIN 8.3 g/dL (6.4-8.2)
== END 2018-01-20 11:50 | disposition short-term general hospital (02) ==
LOC: ER 10:04
DX: E10.10 Type 1 diabetes mellitus with ketoacidosis without coma (principal); F15.10 Other stimulant abuse, uncomplicated; E10.22 Type 1 diabetes mellitus with diabetic chronic kidney disease; F17.200 Nicotine dependence, unspecified, uncomplicated; E83.42 Hypomagnesemia; M79.1 Myalgia; Z88.6 Allergy status to analgesic agent; Z88.8 Allergy status to other drugs, medicaments and biological substances
CPT/HCPCS: 36415; 80053; 82010; 82947; 83690; 83735; 84100; 85025; 96361; 96365; 96372; 96376; 99291; 99292; J1815; J2550; J7030

== ENCOUNTER 2018-01-25 02:39 | Inpatient (IN) | payer SELFPAY ==
[2018-01-25] VITALS (13 sets, daily range): BP systolic 112–147; BP diastolic 65–101
[~2018-01-25] VITALS: Ht 170.2 cm; Wt 63.1 kg
[2018-01-25] MEDS ORDERED: IV NORMAL SALINE 1,000ML 1,000 ML IV ONE ×2 (03:00→03:30)
[2018-01-25] MEDS ORDERED: PROMETHAZINE 25 MG/ML VIAL IV ONE (03:53)
[2018-01-25] MEDS ORDERED: IV NORMAL SALINE 50ML 50 ML ONE (03:53)
[2018-01-25] MEDS ORDERED: ONDANSETRON PF 4 MG/2 ML VIAL. IV ONE (04:00)
[2018-01-25] MEDS ORDERED: INSULIN REGULAR 100 UNIT/ML 10ML VIAL. SQ ONE (04:00)
[2018-01-25] MEDS ORDERED: FAMOTIDINE 20 MG/2 ML VIAL IVP ONE (04:00)
[2018-01-25] MEDS ORDERED: PROMETHAZINE 12.5 MG in IV NORMAL SALINE 50ML 50 ML IV ONE (04:00)
[2018-01-25] MEDS ORDERED: INSULIN REGULAR 100 UNIT/ML 10ML VIAL. IM ONE (04:00)
[2018-01-25 04:54] LABS: BGAS PH 7.31 (7.35-7.45)
[2018-01-25 04:56] LABS: BASO % 0 % (0-3); EOS % 0 % (0-3); HEMATOCRIT 34.4 % (36.0-47.0); HEMOGLOBIN 11.4 g/dL (12.0-15.5); LYMPH # 0.9 x10^3/uL (1.0-4.8); LYMPH % 8 % (24-48); MEAN CORPUSCULAR HEMOGLOBIN 29 pg (25-35); MEAN CORPUSCULAR HGB CONC 33 g/dL (31-37); MEAN CORPUSCULAR VOLUME 87 fL (79-100); MONO # 0.2 x10^3/uL (0.0-1.1); MONO % 2 % (0-9); NEUT # 9.6 x10^3uL (1.8-7.7); NEUT % 90 % (31-73); PLATELET COUNT 473 x10^3/uL (140-400); RED BLOOD COUNT 3.97 x10^6/uL (3.50-5.40); RED CELL DISTRIBUTION WIDTH 14.4 % (11.5-14.5); WHITE BLOOD COUNT 10.7 x10^3/uL (4.0-11.0)
[2018-01-25 05:11] LABS: ALBUMIN 3.4 g/dL (3.4-5.0); ALBUMIN/GLOBULIN RATIO 0.9 (1.0-1.7); CALCIUM 8.4 mg/dL (8.5-10.1); CREATININE 0.7 mg/dL (0.6-1.0); GFR 101.1; POTASSIUM 4.2 mmol/L (3.5-5.1); TOTAL BILIRUBIN 0.5 mg/dL (0.2-1.0); TOTAL PROTEIN 7.3 g/dL (6.4-8.2)
--- NOTE | 2018-01-25 05:40 | ED.ADGEN ---
Past History Past Medical History: Diabetes, Other Additional Past Medical Histor: pt reports several admissions for "high blood sugar" Past Surgical History: No Surgical History Smoking: Less than 1pk/day Alcohol Use: None Drug Use: Amphetamine Adult General Chief Complaint Chief Complaint Nausea vomiting, hyperglycemia HPI HPI Patient is a 27-year-old female with insulin dependent diabetes, frequent DKA, recent hospital admission to this facility and discharge for the same 2 days ago who presents with nausea, vomiting and inability to tolerate oral intake for the past 18 hours. Patient states she's been taking and nausea medication and Benadryl at home without improvement. Patient's blood sugar has been in the upper 400 range. Although the patient has history of medication noncompliance, she is compliant with medication with the exception the past 12 hours due to presence nausea and vomiting. Diffuse epigastric pain and sweats. No hematemesis , urinalysis, melena or bloody stools. No fevers chill, other acute symptoms or complaints.,[] Review of Systems Review of Systems ROS as per HPI. All other systems were reviewed and found to be within normal limits, except as documented in this note. Current Medications Current Medications Current Medications Medications (Trade) Dose Ordered Sig/Chevy Start Time Stop Time Status Last Admin Dose Admin Famotidine (Pepcid Vial) 20 mg 1X ONCE 01/25/18 04:00 01/25/18 04:01 DC 01/25/18 04:05 20 MG Insulin Human Regular (NovoLIN R) 10 unit 1X ONCE 01/25/18 04:00 01/25/18 04:01 DC 01/25/18 04:03 10 UNIT Ondansetron HCl (Zofran) 8 mg 1X ONCE 01/25/18 04:00 01/25/18 04:01 DC 01/25/18 04:05 8 MG Promethazine HCl (Phenergan) 25 mg STK-MED ONCE 01/25/18 03:53 01/25/18 03:54 DC Promethazine HCl 12.5 mg/Sodium Chloride 50.5 ml @ 101 mls/hr 1X ONCE 01/25/18 04:00 01/25/18 04:29 DC 01/25/18 04:01 101 MLS/HR Sodium Chloride 50 ml @ As Directed STK-MED ONCE 01/25/18 03:53 01/25/18 03:54 DC Allergies Allergies Allergies Coded Allergies Type Severity Reaction Last Updated Verified acetaminophen Allergy Intermediate HIVES 01/18/18 Yes adhesive tape Allergy Intermediate 01/18/18 Yes Physical Exam Physical Exam Constitutional: Well developed, well nourished, anxious, appears uncomfortable. [] HENT: Normocephalic, atraumatic, bilateral external ears normal, oropharynx moist, no oral exudates, nose normal. [] Eyes: PERRLA, EOMI, conjunctiva normal, no discharge. [] Neck: Normal range of motion. [] Cardiovascular:tachycardia [] Lungs & Thorax: Bilateral breath sounds clear to auscultation [] Abdomen: Bowel sounds normal, soft, diffuse upper abdominal pain. [] Skin: Warm, diaphoretic. [] Back: No tenderness. [] Extremities: No tenderness, no cyanosis, no clubbing, ROM intact, no edema. [] Neurologic: Alert and oriented X 3, normal motor function, normal sensory function, no focal deficits noted. [] Psychologic: Affect normal. [] Current Patient Data Vital Signs Vital Signs Date Time Temp Pulse Resp B/P (MAP) Pulse Ox O2 Delivery O2 Flow Rate FiO2 01/25/18 02:40 132 19 98 Room Air Lab Results Laboratory Tests Test 01/25/18 02:50 01/25/18 04:40 Glucose (Fingerstick) 473 mg/dL (70-99) H White Blood Count 10.7 x10^3/uL (4.0-11.0) Red Blood Count 3.97 x10^6/uL (3.50-5.40) Hemoglobin 11.4 g/dL (12.0-15.5) L Hematocrit 34.4 % (36.0-47.0) L Mean Corpuscular Volume 87 fL (79-100) Mean Corpuscular Hemoglobin 29 pg (25-35) Mean Corpuscular Hemoglobin Concent 33 g/dL (31-37) Red Cell Distribution Width 14.4 % (11.5-14.5) Platelet Count 473 x10^3/uL (140-400) H Neutrophils (%) (Auto) 90 % (31-73) H Lymphocytes (%) (Auto) 8 % (24-48) L Monocytes (%) (Auto) 2 % (0-9) Eosinophils (%) (Auto) 0 % (0-3) Basophils (%) (Auto) 0 % (0-3) Neutrophils # (Auto) 9.6 x10^3uL (1.8-7.7) H Lymphocytes # (Auto) 0.9 x10^3/uL (1.0-4.8) L Monocytes # (Auto) 0.2 x10^3/uL (0.0-1.1) Eosinophils # (Auto) 0.0 x10^3/uL (0.0-0.7) Basophils # (Auto) 0.0 x10^3/uL (0.0-0.2) Blood pH 7.31 (7.35-7.45) L Blood Gas PCO2 28 mmHg (35-45) L Blood Gas PO2 106 mmHg (80-100) H Blood Gas HCO3 14 mmol/L (22-26) L Arterial Bld O2 Saturation (Calc) 98 % (92-99) FiO2 21 % Sodium Level 136 mmol/L (136-145) Potassium Level 4.2 mmol/L (3.5-5.1) Chloride Level 100 mmol/L (98-107) Carbon Dioxide Level 14 mmol/L (21-32) L Anion Gap 22 (6-14) H Blood Urea Nitrogen 31 mg/dL (7-20) H Creatinine 0.7 mg/dL (0.6-1.0) Estimated GFR (Cockcroft-Gault) 101.1 BUN/Creatinine Ratio 44 (6-20) H Glucose Level 397 mg/dL (70-99) H Calcium Level 8.4 mg/dL (8.5-10.1) L Total Bilirubin 0.5 mg/dL (0.2-1.0) Aspartate Amino Transferase (AST) 11 U/L (15-37) L Alanine Aminotransferase (ALT) 16 U/L (14-59) Alkaline Phosphatase 85 U/L (46-116) Total Protein 7.3 g/dL (6.4-8.2) Albumin 3.4 g/dL (3.4-5.0) Albumin/Globulin Ratio 0.9 (1.0-1.7) L Acetone Level Sm pos (NEG) EKG EKG [] Radiology/Procedures Radiology/Procedures [] Course & Med Decision Making Course & Med Decision Making Pertinent Labs and Imaging studies reviewed. (See chart for details) [Patient with early DKA, improved with IV fluids. However, the patient remains tachycardic and nauseated and is ketone positive. She is high risk of outpatient failure and is unsuitable for discharge at this time.. Dr. Grigsby to admit. Courtesy admission orders provided.] Final Impression Final Impression [1. Nausea and vomiting 2. Hyperglycemia] Problems: Dragon Disclaimer Dragon Disclaimer This electronic medical record was generated, in whole or in part, using a voice recognition dictation system. ROXY SMALL DO Jan 25, 2018 05:40
[2018-01-25] MEDS ORDERED: ONDANSETRON PF 4 MG/2 ML VIAL. IV PRN ×2 (05:45→07:00)
[2018-01-25] MEDS: IV NORMAL SALINE 1,000ML 1,000 ML IV SCH ×3 (05:56→10:58)
[2018-01-25] MEDS ORDERED: PROMETHAZINE 12.5 MG in IV NORMAL SALINE 50ML 50 ML IV PRN (06:00)
[2018-01-25] MEDS ORDERED: INSULIN REGULAR 150 UNIT in 0.9 % SODIUM CHLORIDE 150ML 150 ML IV ONE (06:00)
[2018-01-25 06:42] LABS: BARBITURATES NEG (NEG); BENZODIAZEPINES NEG (NEG); CANNABINOIDS NEG (NEG); COCAINE NEG (NEG); METHADONE NEG (NEG); OPIATES NEG (NEG); PHENCYCLIDINE NEG (NEG)
[2018-01-25 06:43] LABS: AMPHETAMINE/METHAMPHETAMINE POS (NEG)
[2018-01-25] MEDS ORDERED: INSULIN REGULAR 150 UNIT in 0.9 % SODIUM CHLORIDE 150ML 150 ML IV PRN (07:00)
[2018-01-25] MEDS ORDERED: ELECTROLYTE (ICU) PROTOCOL. MC PRN (07:00)
[2018-01-25] MEDS ORDERED: IV NORMAL SALINE 1,000ML 1,000 ML IV SCH (07:00)
[2018-01-25] MEDS ORDERED: POTASSIUM CL 40MEQ D5-0.45NACL 1,000 ML IV ONE ×3 (08:01→18:38)
[2018-01-25] MEDS ORDERED: POTASSIUM CHLORIDE 20 MEQ TABLET.ER. PO ONE (09:00)
[2018-01-25] MEDS ORDERED: IV DEXTROSE 5 %-0.45 % NACL 1,000 ML IV SCH (11:00)
[2018-01-25] MEDS: POTASSIUM CHLORIDE 40 MEQ in IV DEXTROSE 5 %-0.45 % NACL 1,000 ML IV SCH ×2 (11:00→16:50)
--- NOTE | 2018-01-25 11:17 | HP ---
ADMIT DATE: 01/25/2018 REASON FOR ADMISSION: Nausea, vomiting, inability to tolerate oral intake for the past 18 hours. The patient's blood sugars at home in the upper 400 range. Has not been giving herself her insulin as she is supposed to. She just recently was discharged from another facility for the same problem. PAST MEDICAL HISTORY: 1. Poorly controlled type 1 diabetes including dozens of admissions for DKA. 2. Methamphetamine abuse, intermittent. 3. Gastroparesis. 4. Chronic hypomagnesemia. 5. Adjustment disorder. 6. Depressive disorder. PAST SURGICAL HISTORY: Failed Port-A-Cath which had to be removed secondary to infection. SOCIAL HISTORY: Tobacco: Denies. Drug use: Methamphetamines. MEDICATIONS: Reviewed. The patient is noncompliant. FAMILY HISTORY: The patient lives at home with her mother. She was at a brief employment and was fired. REVIEW OF SYSTEMS: Nausea, vomiting, stomach pain. OBJECTIVE: VITAL SIGNS: Blood pressure 146/65, pulse 130, respirations 20, pulse ox 98% on room air. GENERAL: The patient is pale, fatigued. Tongue is dry. LUNGS: Clear. CARDIOVASCULAR: Regular rhythm and rate. ABDOMEN: Soft, positive midepigastric tenderness. EXTREMITIES: Without edema. LABORATORY DATA: Hemoglobin 11.4, hematocrit 34.4, white cell count is normal. Glucoses started out at 473, now down to 169, carbon dioxide is 14, anion gap is 22, BUN 31. ABG, pH 7.31, pCO2 of 28, pO2 106, HCO3 14. ASSESSMENT: 1. Diabetic ketoacidosis. 2. Positive methamphetamine screen. 3. Dehydration. 4. Gastroparesis. 5. Abdominal pain secondary to diabetic ketoacidosis. 6. Chronic hypomagnesemia. We will need to check. PLAN: Diabetic DKA protocol. BARRY MORELAND DO DR: DONNA/regina JOB#: [id number] / [id number]
[2018-01-25 11:29] LABS: ALBUMIN 2.8 g/dL (3.4-5.0); ALBUMIN/GLOBULIN RATIO 0.8 (1.0-1.7); CALCIUM 7.5 mg/dL (8.5-10.1); CREATININE 0.6 mg/dL (0.6-1.0); GFR 120.8; MAGNESIUM 1.5 mg/dL (1.8-2.4); POTASSIUM 4.7 mmol/L (3.5-5.1); TOTAL BILIRUBIN 0.3 mg/dL (0.2-1.0); TOTAL PROTEIN 6.1 g/dL (6.4-8.2)
[2018-01-25] MEDS: METOCLOPRAMIDE 10 MG TABLET PO SCH ×4 (13:00→21:00)
[2018-01-25] MEDS: ONDANSETRON ODT 4 MG TAB.RAPDIS PO SCH ×3 (14:00→21:08)
[2018-01-25] MEDS ORDERED: MAGNESIUM SULFATE 2GM 50 ML IV ONE (20:00)
--- NOTE | 2018-01-25 21:00 | NUR ---
Pt states she doesn't feel well. Pt remains on insulin drip. Pt is on a soft diet for gastroparesis. Pt is refusing to take her medications as ordered. Pt has dinner tray at bedside, she has also refused to eat. Pt is getting hourly accuchecks for glucose monitoring.
[2018-01-26] VITALS (8 sets, daily range): BP systolic 107–140; BP diastolic 68–90
[2018-01-26] MEDS: POTASSIUM CL 40MEQ D5-0.45NACL 1,000 ML IV SCH ×5 (00:42→16:45)
[2018-01-26] MEDS: ONDANSETRON ODT 4 MG TAB.RAPDIS PO SCH (06:00)
[2018-01-26 06:35] LABS: BASO # 0.1 x10^3/uL (0.0-0.2); BASO % 1 % (0-3); EOS # 0.1 x10^3/uL (0.0-0.7); EOS % 2 % (0-3); HEMATOCRIT 31.7 % (36.0-47.0); HEMOGLOBIN 10.5 g/dL (12.0-15.5); LYMPH # 2.5 x10^3/uL (1.0-4.8); LYMPH % 34 % (24-48); MEAN CORPUSCULAR HEMOGLOBIN 28 pg (25-35); MEAN CORPUSCULAR HGB CONC 33 g/dL (31-37); MEAN CORPUSCULAR VOLUME 85 fL (79-100); MONO # 0.6 x10^3/uL (0.0-1.1); MONO % 8 % (0-9); NEUT # 4.1 x10^3uL (1.8-7.7); NEUT % 56 % (31-73); PLATELET COUNT 414 x10^3/uL (140-400); RED BLOOD COUNT 3.72 x10^6/uL (3.50-5.40); RED CELL DISTRIBUTION WIDTH 14.4 % (11.5-14.5); WHITE BLOOD COUNT 7.4 x10^3/uL (4.0-11.0)
[2018-01-26 06:47] LABS: ALBUMIN 2.9 g/dL (3.4-5.0); ALBUMIN/GLOBULIN RATIO 0.9 (1.0-1.7); CALCIUM 8.2 mg/dL (8.5-10.1); CREATININE 0.5 mg/dL (0.6-1.0); GFR 149.1; POTASSIUM 4.3 mmol/L (3.5-5.1); TOTAL BILIRUBIN 0.3 mg/dL (0.2-1.0); TOTAL PROTEIN 6.2 g/dL (6.4-8.2)
[2018-01-26] MEDS ORDERED: ONDANSETRON ODT 4 MG TAB.RAPDIS PO PRN (07:45)
[2018-01-26] MEDS: METOCLOPRAMIDE 10 MG TABLET PO SCH ×4 (08:07→21:52)
[2018-01-26] MEDS: KETOROLAC 30 MG/ML VIAL. IV PRN ×2 (08:07→17:58)
[2018-01-26] MEDS ORDERED: DEXTROSE 50% 25 GM / 50ML DISP.SYRIN. IV PRN (12:45)
[2018-01-26] MEDS: INSULIN ASPART 300 UNITS/3 ML INSULN.PEN SQ SCH ×3 (13:19→21:51)
--- NOTE | 2018-01-26 17:11 | NUR ---
PT not feeling well. Sleeping all the time. Blood sugar WNL Becka RN
[2018-01-26] MEDS ORDERED: INSULIN DETEMIR 300 UNITS/3 ML INSULN.PEN. SQ SCH (21:00)
--- NOTE | 2018-01-26 21:42 | PN ---
DATE: 01/26/2018 CURRENT PROBLEMS: 1. Diabetic ketoacidosis. 2. Poorly controlled type 1 diabetes. 3. Methamphetamine abuse. 4. Gastroparesis. 5. Chronic hypomagnesemia. 6. Adjustment disorder. 7. Depressive disorder. SUBJECTIVE: Getting better slowly, still on IV fluids, still on the DKA protocol. She is on a gastroparesis diet. We have not been giving her everything that she wants to eat. She did take her Reglan this morning, but is taking a little bit of time to get better, seems every admissions taking her more and more time to get back to her normal state. OBJECTIVE: VITAL SIGNS: Blood pressure 111/73, pulse 105, temperature 98.2, respirations 18, pulse ox 97% on room air. GENERAL: Color is pale, still quite sleepy. LUNGS: Clear. CARDIOVASCULAR: Regular rhythm and rate. ABDOMEN: Soft, mildly tender in the midepigastrium. EXTREMITIES: Without edema. LABORATORY DATA: Glucoses is noted. PLAN: Continue with DKA protocol. The patient again counseled regarding her methamphetamine use. BARRY MORELAND DO DR: DONNA/regina JOB#: [id number] / [id number]
[2018-01-27 00:30] VITALS: BP 116/73
[2018-01-27] MEDS: POTASSIUM CL 40MEQ D5-0.45NACL 1,000 ML IV SCH ×2 (01:00→06:18)
[2018-01-27 01:31] VITALS: BP 102/63
[2018-01-27 02:32] VITALS: BP 93/58
[2018-01-27 03:43] VITALS: BP 96/64
[2018-01-27 05:45] VITALS: BP 106/78
[2018-01-27] MEDS: KETOROLAC 30 MG/ML VIAL. IV PRN (06:11)
[2018-01-27 06:45] LABS: BASO # 0.1 x10^3/uL (0.0-0.2); BASO % 1 % (0-3); EOS # 0.2 x10^3/uL (0.0-0.7); EOS % 3 % (0-3); HEMATOCRIT 32.1 % (36.0-47.0); HEMOGLOBIN 10.7 g/dL (12.0-15.5); LYMPH # 3.4 x10^3/uL (1.0-4.8); LYMPH % 46 % (24-48); MEAN CORPUSCULAR HEMOGLOBIN 29 pg (25-35); MEAN CORPUSCULAR HGB CONC 33 g/dL (31-37); MEAN CORPUSCULAR VOLUME 85 fL (79-100); MONO # 0.6 x10^3/uL (0.0-1.1); MONO % 8 % (0-9); NEUT # 3.1 x10^3uL (1.8-7.7); NEUT % 42 % (31-73); PLATELET COUNT 385 x10^3/uL (140-400); RED BLOOD COUNT 3.76 x10^6/uL (3.50-5.40); RED CELL DISTRIBUTION WIDTH 14.3 % (11.5-14.5); WHITE BLOOD COUNT 7.4 x10^3/uL (4.0-11.0)
[2018-01-27 06:56] LABS: ALBUMIN 2.8 g/dL (3.4-5.0); ALBUMIN/GLOBULIN RATIO 0.8 (1.0-1.7); CALCIUM 8.1 mg/dL (8.5-10.1); CREATININE 0.6 mg/dL (0.6-1.0); GFR 120.8; MAGNESIUM 1.5 mg/dL (1.8-2.4); POTASSIUM 4.3 mmol/L (3.5-5.1); TOTAL BILIRUBIN 0.2 mg/dL (0.2-1.0); TOTAL PROTEIN 6.2 g/dL (6.4-8.2)
[2018-01-27] MEDS: METOCLOPRAMIDE 10 MG TABLET PO SCH (08:37)
[2018-01-27] MEDS: INSULIN ASPART 300 UNITS/3 ML INSULN.PEN SQ SCH (08:38)
[2018-01-27] MEDS ORDERED: MAGNESIUM OXIDE 400 MG TABLET PO SCH (09:00)
[2018-01-27] MEDS ORDERED: INSULIN DETEMIR 300 UNITS/3 ML INSULN.PEN. SQ SCH (09:00)
[2018-01-27] MEDS ORDERED: FAMOTIDINE 20 MG TABLET PO SCH (09:00)
[2018-01-27] MEDS ORDERED: POTASSIUM CHLORIDE 20 MEQ TABLET.ER. PO SCH (09:00)
--- NOTE | 2018-01-27 10:59 | NUR ---
Pt discharged from the hospital. Pt's two IV's discontinued. Instructions provided to pt. Pt verbalizes understanding. Pt off unit ambulatory accompanied by mother.
--- NOTE | 2018-01-27 11:25 | DS ---
DATE OF DISCHARGE: 01/27/2018 DISCHARGE DIAGNOSES: 1. Diabetic ketoacidosis. 2. Poorly controlled type 1 diabetes. 3. Methamphetamine abuse. 4. Gastroparesis. 5. Chronic hypomagnesemia. 6. Adjustment disorder. 7. Depressive disorder. 8. Moderate protein-calorie malnutrition. HOSPITAL COURSE: A 27-year-old female with numerous admissions for DKA, readmitted for DKA and drug screen positive for methamphetamine. She was treated according to the DKA protocol and we kept strictly to a gastroparesis diet and did not let her just graze and eat a bunch of junk food, which she normally does. On 01/27/2018, she had recovered from the dehydration and the DKA and was ready for discharge. She ambulated in the schreiber and was fine. OBJECTIVE: VITAL SIGNS: Blood pressure 106/78, pulse 81, temperature 98.1. GENERAL: Color better, little bit of pink in her cheeks. NECK: Supple. LUNGS: Clear. CARDIOVASCULAR: Regular rhythm and rate. ABDOMEN: Soft, minimal tenderness. EXTREMITIES: Without edema. PLAN: Disposition: To home. Advised her to fill out her paperwork for her insurance because she still think she could benefit from going to rehabilitation. BARRY MORELAND DO DR: DONNA/regina JOB#: [id number] / [id number]
== END 2018-01-27 11:03 | disposition home or self-care (01) | DRG 638 ==
LOC: ER 02:39 → 1 SOUTH 05:40 → ICU 06:23
PROVIDERS: ADMIT Family Medicine; ATTEND Family Medicine
DX: E10.10 Type 1 diabetes mellitus with ketoacidosis without coma (principal); E44.0 Moderate protein-calorie malnutrition; K31.84 Gastroparesis; E10.43 Type 1 diabetes mellitus with diabetic autonomic (poly)neuropathy; E83.42 Hypomagnesemia; E86.0 Dehydration; F15.10 Other stimulant abuse, uncomplicated; F43.20 Adjustment disorder, unspecified; F32.9 Major depressive disorder, single episode, unspecified; Z68.21 Body mass index [BMI] 21.0-21.9, adult; Z91.14 Patient's other noncompliance with medication regimen; Z88.8 Allergy status to other drugs, medicaments and biological substances; Z91.048 Other nonmedicinal substance allergy status; Z79.4 Long term (current) use of insulin
CPT/HCPCS: 36415; 36600; 80053; 80307; 82010; 82803; 82947; 83735; 85025; 87641; 96361; 96365; 96372; 96375; J1815; J1885; J2405; J2550; J3475; J7042; J8597; Q0162; S0028; 99285-25; G0479; J7030

== ENCOUNTER 2018-02-02 20:30 | Inpatient (IN) | payer SELFPAY ==
[~2018-02-02] VITALS: Ht 170.2 cm; Wt 58.3 kg
[2018-02-02] MEDS ORDERED: IV RINGERS SOLUTION,LACTATED 1,000 ML IV SCH (20:46)
[2018-02-02] MEDS ORDERED: IV NORMAL SALINE 1,000ML 1,000 ML IV SCH (20:46)
--- NOTE | 2018-02-02 20:46 | ED.ADGEN ---
Past History Past Medical History: Anxiety, Diabetes, GERD, Other Additional Past Medical Histor: pt reports several admissions for "high blood sugar" Past Surgical History: No Surgical History Smoking: Less than 1pk/day Alcohol Use: None Drug Use: Amphetamine Adult General Chief Complaint Chief Complaint " I ve been vomiting all day... now I am hurting everywhere..." HPI HPI Patient is a 27 year old female who presents with Hyperglycemia, abdomen pain, nausea and vomiting. 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 Pt. states she has been vomiting all day and now has abdomen pain. Pt. denies any travel or specific ill contacts. Patient denies any intake of bad food. Paramedics document a presenting glucose of 260. Patient states she has been taking her meds as directed. Patient denies any illicit drug intake. Patient denies any history of trauma. She denies history of . Pt. recently discharged from [facility] for similar complaints. Review of Systems Review of Systems Constitutional: Denies fever or chills [] Eyes: Denies change in visual acuity, redness, or eye pain [] HENT: Denies nasal congestion. Complaints of sore throat [] Respiratory: Denies cough or shortness of breath [] Cardiovascular: No additional information not addressed in HPI [] GI: Complaints of epigastric abdominal pain, nausea, vomiting, . Denies bloody stools or diarrhea [] : Denies dysuria or hematuria [] Musculoskeletal: Denies back pain or joint pain [. ]complaints of generalized myalgia Integument: Denies rash or skin lesions [] Neurologic: Denies headache, focal weakness or sensory changes [] Endocrine: Denies polyuria or polydipsia [] All other systems were reviewed and found to be within normal limits, except as documented in this note. Family History Family History Diabetes Current Medications Current Medications Current Medications Medications (Trade) Dose Ordered Sig/Chevy Start Time Stop Time Status Last Admin Dose Admin Diphenhydramine HCl (Benadryl) 50 mg 1X ONCE 02/02/18 21:00 02/02/18 21:01 DC 02/02/18 21:28 50 MG Famotidine (Pepcid Vial) 20 mg 1X ONCE 02/02/18 21:00 02/02/18 21:01 DC 02/02/18 21:32 20 MG Ketorolac Tromethamine (Toradol) 60 mg 1X ONCE 02/02/18 21:00 02/02/18 21:01 DC 02/02/18 21:38 60 MG Lactated Ringer's 1,000 ml @ 1,000 mls/hr Q1H 02/02/18 20:46 02/02/18 21:45 DC 02/02/18 21:26 1,000 MLS/HR Ondansetron HCl (Zofran) 4 mg PRN Q4HRS PRN 02/03/18 00:45 02/04/18 00:44 Promethazine HCl (Phenergan Im) 25 mg 1X ONCE 02/02/18 21:00 02/02/18 21:01 DC Sodium Chloride 1,000 ml @ 1,000 mls/hr Q1H 02/02/18 20:46 02/02/18 21:45 DC 02/02/18 22:20 1,000 MLS/HR See nursing for home medications Allergies Allergies Allergies Coded Allergies Type Severity Reaction Last Updated Verified acetaminophen Allergy Intermediate HIVES 01/18/18 Yes adhesive tape Allergy Intermediate 01/18/18 Yes Physical Exam Physical Exam Constitutional: In acute distress, non-toxic appearance. [] HENT: Normocephalic, atraumatic, bilateral external ears normal, no oral exudates, nose normal. Injected pharynx. Eyes: PERRLA, EOMI, conjunctiva normal, no discharge. [] Neck: Normal range of motion, no tenderness, supple, no stridor. [] Cardiovascular: Tachycardia Heart rate regular rhythm, no murmur [] Lungs & Thorax: Bilateral breath sounds equal with scattered wheezes on auscultation [] Abdomen: Bowel sounds decreased,, soft, epigastric tenderness, no masses, no pulsatile masses. [] Skin: Warm, dry, no erythema, no rash. Poor turgor. Tattoos. Back: No tenderness, no CVA tenderness. [] Extremities: No tenderness, no cyanosis, no clubbing, ROM intact, no edema. [] No psoas sign. Neurologic: Alert and oriented X 3, normal motor function, normal sensory function, no focal deficits noted. [] Psychologic: Affect anxious, judgement poor insight, mood depressed Current Patient Data Vital Signs Vital Signs Date Time Temp Pulse Resp B/P (MAP) Pulse Ox O2 Delivery O2 Flow Rate FiO2 02/02/18 21:50 118 18 135/63 (87) 100 Room Air 02/02/18 20:33 98.1 Lab Results Laboratory Tests Test 02/02/18 20:45 02/02/18 21:18 02/02/18 22:05 02/02/18 22:45 Glucose (Fingerstick) 171 mg/dL (70-99) H Urine Collection Type Unknown Urine Color Yellow Urine Clarity Clear Urine pH 5.0 Urine Specific [place] 1.025 Urine Protein 30 mg/dl (NEG-TRACE) Urine Glucose (UA) 100 mg/dL (NEG) Urine Ketones (Stick) >=160 mg/dL (NEG) Urine Blood Trace (NEG) Urine Nitrite Neg (NEG) Urine Bilirubin Neg (NEG) Urine Urobilinogen Dipstick 0.2 mg/dL (0.2 mg/dL) Urine Leukocyte Esterase Neg (NEG) Urine RBC 0 /HPF (0-2) Urine WBC 5-10 /HPF (0-4) Urine Squamous Epithelial Cells Mod /LPF Urine Bacteria 0 /HPF (0-FEW) Urine Hyaline Casts Few /HPF Urine Mucus Mod /LPF Urine Opiates Screen Neg (NEG) Urine Methadone Screen Neg (NEG) Urine Barbiturates Neg (NEG) Urine Phencyclidine Screen Neg (NEG) Urine Amphetamine/Methamphetamine Neg (NEG) Urine Benzodiazepines Screen Neg (NEG) Urine Cocaine Screen Neg (NEG) Urine Cannabinoids Screen Neg (NEG) Urine Ethyl Alcohol Neg (NEG) Influenza Type A (Rapid) Negative (NEGATIVE) Influenza Type B (Rapid) Negative (NEGATIVE) Group A Streptococcus Rapid Negative (NEGATIVE) White Blood Count 9.4 x10^3/uL (4.0-11.0) Red Blood Count 4.29 x10^6/uL (3.50-5.40) Hemoglobin 12.1 g/dL (12.0-15.5) Hematocrit 36.7 % (36.0-47.0) Mean Corpuscular Volume 86 fL (79-100) Mean Corpuscular Hemoglobin 28 pg (25-35) Mean Corpuscular Hemoglobin Concent 33 g/dL (31-37) Red Cell Distribution Width 14.5 % (11.5-14.5) Platelet Count 389 x10^3/uL (140-400) Neutrophils (%) (Auto) 65 % (31-73) Lymphocytes (%) (Auto) 25 % (24-48) Monocytes (%) (Auto) 9 % (0-9) Eosinophils (%) (Auto) 0 % (0-3) Basophils (%) (Auto) 1 % (0-3) Neutrophils # (Auto) 6.1 x10^3uL (1.8-7.7) Lymphocytes # (Auto) 2.3 x10^3/uL (1.0-4.8) Monocytes # (Auto) 0.9 x10^3/uL (0.0-1.1) Eosinophils # (Auto) 0.0 x10^3/uL (0.0-0.7) Basophils # (Auto) 0.1 x10^3/uL (0.0-0.2) Maternal Serum HCG Beta Subunit < 1 mIU/mL (0-6) Sodium Level 133 mmol/L (136-145) L Potassium Level 4.4 mmol/L (3.5-5.1) Chloride Level 99 mmol/L (98-107) Carbon Dioxide Level 11 mmol/L (21-32) *L Anion Gap 23 (6-14) H Blood Urea Nitrogen 15 mg/dL (7-20) Creatinine 0.8 mg/dL (0.6-1.0) Estimated GFR (Cockcroft-Gault) 86.7 Glucose Level 116 mg/dL (70-99) H Calcium Level 8.4 mg/dL (8.5-10.1) L Total Bilirubin 0.4 mg/dL (0.2-1.0) Direct Bilirubin 0.1 mg/dL (0.0-0.2) Aspartate Amino Transferase (AST) 11 U/L (15-37) L Alanine Aminotransferase (ALT) 15 U/L (14-59) Alkaline Phosphatase 83 U/L (46-116) Troponin I Quantitative < 0.017 ng/mL (0-0.055) Total Protein 6.8 g/dL (6.4-8.2) Albumin 3.3 g/dL (3.4-5.0) L Lipase 46 U/L (73-393) L EKG EKG My interpretation of EKG shows a sinus rhythm at 122 bpm. There is some bimodal P-wave's, anterior lateral strain pattern.[] Radiology/Procedures Radiology/Procedures My interpretation of acute abd. show no free air under diaphragm. No acute cardiopulmonary findings. Stool in colon. Course & Med Decision Making Course & Med Decision Making Pertinent Labs and Imaging studies reviewed. (See chart for details) Discussed presentation, testing and Tx. plan with Dr. Pereira. Will admit for hydration and tx. of DKA. [] Final Impression Final Impression 1. Nausea and Vomiting 2. DM[] 3. Abdomen pain 4. Gastroparesis 5. Hyponatremia 6. Critical bicarb 11 7. DKA 8. Tobacco Abuse Problems: Dragon Disclaimer Dragon Disclaimer This electronic medical record was generated, in whole or in part, using a voice recognition dictation system. YELENA HENRY MD Feb 02, 2018 20:46
[2018-02-02] MEDS ORDERED: KETOROLAC 60 MG/2 ML VIAL. IM ONE (21:00)
[2018-02-02] MEDS ORDERED: diphenhydrAMINE 50 MG/ML VIAL IV ONE (21:00)
[2018-02-02] MEDS ORDERED: ONDANSETRON PF 4 MG/2 ML VIAL. IV ONE (21:00)
[2018-02-02] MEDS ORDERED: FAMOTIDINE 20 MG/2 ML VIAL IVP ONE (21:00)
[2018-02-02] MEDS ORDERED: PROMETHAZINE IM 25 MG/ML VIAL IM ONE (21:00)
--- NOTE | 2018-02-02 21:04 | EKG ---
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
[2018-02-02 22:04] LABS: AMPHETAMINE/METHAMPHETAMINE NEG (NEG); BARBITURATES NEG (NEG); BENZODIAZEPINES NEG (NEG); CANNABINOIDS NEG (NEG); COCAINE NEG (NEG); METHADONE NEG (NEG); OPIATES NEG (NEG); PHENCYCLIDINE NEG (NEG)
[2018-02-02 22:16] LABS: BILIRUBIN,URINE NEG (NEG); CLARITY,URINE CLEAR; COLOR,URINE YELLOW; GLUCOSE,URINE 100 mg/dL (NEG)
[2018-02-02 22:17] LABS: BACTERIA,URINE 0 /HPF (0-FEW); HYALINE CASTS, URINE FEW /HPF; NITRITE,URINE NEG (NEG); RBC,URINE 0 /HPF (0-2); SQUAMOUS EPITHELIAL CELL,UR MOD /LPF; UROBILINOGEN,URINE 0.2 mg/dL (0.2 mg/dL)
[2018-02-02 23:05] LABS: BASO # 0.1 x10^3/uL (0.0-0.2); BASO % 1 % (0-3); EOS % 0 % (0-3); HEMATOCRIT 36.7 % (36.0-47.0); HEMOGLOBIN 12.1 g/dL (12.0-15.5); LYMPH # 2.3 x10^3/uL (1.0-4.8); LYMPH % 25 % (24-48); MEAN CORPUSCULAR HEMOGLOBIN 28 pg (25-35); MEAN CORPUSCULAR HGB CONC 33 g/dL (31-37); MEAN CORPUSCULAR VOLUME 86 fL (79-100); MONO # 0.9 x10^3/uL (0.0-1.1); MONO % 9 % (0-9); NEUT # 6.1 x10^3uL (1.8-7.7); NEUT % 65 % (31-73); PLATELET COUNT 389 x10^3/uL (140-400); RED BLOOD COUNT 4.29 x10^6/uL (3.50-5.40); RED CELL DISTRIBUTION WIDTH 14.5 % (11.5-14.5); WHITE BLOOD COUNT 9.4 x10^3/uL (4.0-11.0)
[2018-02-02 23:11] LABS: ALBUMIN 3.3 g/dL (3.4-5.0); CALCIUM 8.4 mg/dL (8.5-10.1); CREATININE 0.8 mg/dL (0.6-1.0); DIRECT BILIRUBIN 0.1 mg/dL (0.0-0.2); GFR 86.7; POTASSIUM 4.4 mmol/L (3.5-5.1); TOTAL BILIRUBIN 0.4 mg/dL (0.2-1.0); TOTAL PROTEIN 6.8 g/dL (6.4-8.2)
[2018-02-02 23:47] LABS: INFLUENZA A PATIENT NEGATIVE (NEGATIVE); INFLUENZA B PATIENT NEGATIVE (NEGATIVE)
[2018-02-03] MEDS ORDERED: MORPHINE SULFATE 10 MG/ML SYRINGE. ONE (00:41)
[2018-02-03] MEDS ORDERED: ONDANSETRON PF 4 MG/2 ML VIAL. IV PRN (00:45)
[2018-02-03] MEDS ORDERED: IV RINGERS SOLUTION,LACTATED 1,000 ML IV ONE ×2 (01:00→01:30)
[2018-02-03] MEDS ORDERED: MORPHINE SULFATE 10 MG/ML SYRINGE. SQ ONE (01:00)
[2018-02-03 02:30] VITALS: BP 112/76
[2018-02-03] MEDS: IV RINGERS SOLUTION,LACTATED 1,000 ML IV SCH ×3 (02:47→10:55)
[2018-02-03] MEDS ORDERED: ONDANSETRON ODT 4 MG TAB.RAPDIS PO PRN (04:45)
[2018-02-03] MEDS ORDERED: DEXTROSE 50% 25 GM / 50ML DISP.SYRIN. IV PRN (04:45)
[2018-02-03 06:05] VITALS: BP 100/62
[2018-02-03 06:25] LABS: BASO # 0.1 x10^3/uL (0.0-0.2); BASO % 1 % (0-3); EOS # 0.1 x10^3/uL (0.0-0.7); EOS % 1 % (0-3); HEMATOCRIT 27.8 % (36.0-47.0); HEMOGLOBIN 9.5 g/dL (12.0-15.5); LYMPH # 3.1 x10^3/uL (1.0-4.8); LYMPH % 42 % (24-48); MEAN CORPUSCULAR HEMOGLOBIN 29 pg (25-35); MEAN CORPUSCULAR HGB CONC 34 g/dL (31-37); MEAN CORPUSCULAR VOLUME 83 fL (79-100); MONO # 0.8 x10^3/uL (0.0-1.1); MONO % 11 % (0-9); NEUT # 3.4 x10^3uL (1.8-7.7); NEUT % 45 % (31-73); PLATELET COUNT 294 x10^3/uL (140-400); RED BLOOD COUNT 3.34 x10^6/uL (3.50-5.40); RED CELL DISTRIBUTION WIDTH 14.5 % (11.5-14.5); WHITE BLOOD COUNT 7.4 x10^3/uL (4.0-11.0)
[2018-02-03 06:43] LABS: ALBUMIN 2.6 g/dL (3.4-5.0); CALCIUM 7.9 mg/dL (8.5-10.1); CREATININE 0.7 mg/dL (0.6-1.0); GFR 101.1; POTASSIUM 3.8 mmol/L (3.5-5.1); TOTAL BILIRUBIN 0.4 mg/dL (0.2-1.0); TOTAL PROTEIN 5.2 g/dL (6.4-8.2)
[2018-02-03] MEDS: INSULIN ASPART 300 UNITS/3 ML INSULN.PEN SQ SCH ×2 (07:30→11:52)
[2018-02-03] MEDS: METOCLOPRAMIDE 10 MG TABLET PO SCH ×2 (07:49→11:50)
--- NOTE | 2018-02-03 07:59 | RAD ---
Indication: Nausea vomiting abdominal pain Technique: Acute abdomen series x-rays. Comparison: None Findings: Heart is normal in size. Lungs are clear. No pneumothorax or pleural effusion. Visualized bony thorax is within normal limits. No evidence of free intraperitoneal air. The concourse of solid abdominal organs are within normal limits. No abnormally dilated bowel loops or air-fluid levels. Expected colonic stool burden. No abnormal calcific densities projecting over the abdomen. Visualized bones are within normal limits. Impression: No evidence of bowel obstruction.
[2018-02-03] MEDS ORDERED: MAGNESIUM OXIDE 400 MG TABLET PO SCH (09:00)
[2018-02-03] MEDS ORDERED: FAMOTIDINE 20 MG TABLET PO SCH (09:00)
[2018-02-03] MEDS ORDERED: POTASSIUM CHLORIDE 20 MEQ TABLET.ER. PO SCH (09:00)
[2018-02-03 11:04] VITALS: BP 117/71
--- NOTE | 2018-02-03 16:06 | SSS ---
ADMIT DATE: 02/03/2018 HISTORY OF PRESENT ILLNESS: The patient is a 27-year-old female who again presented to Emergency Room with a complaints of hyperglycemia, abdominal pain, nausea, vomiting. 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 She stated she has been vomiting all day and she has been having abdominal pain. She denied any travel, no specific ill contacts. She denied any intake of any bad food. When she arrived, her blood sugar was ____. She stated that she has been compliant with her medications and takes them as directed and denied any illicit drug use. She was basically found to have mild diabetic ketoacidosis and dilutional hyponatremia. Her bicarbonate was 11 and anion gap was 23. She was given large amount of fluid and was given insulin and did very well. She has tolerated her food without further episodes of nausea and vomiting. Her lab work has basically normalized with serum sodium now is 134, potassium 3.8, chloride 104, bicarbonate 18, anion gap of 12, BUN 13, creatinine was 0.7. Her blood sugar seems to be well controlled and the patient opted to go home. The problem is that multiple times she ____ to want to stay and she leave ____ sometimes we gave her the option to stay and she decided to go against medical advice. She was stable. She has no known further episodes of nausea and vomiting, no abdominal pain and her electrolytes have resolved as well as acidosis and therefore, she was discharged home. PAST MEDICAL HISTORY: Significant for type 1 diabetes, diabetic gastroparesis, multiple episodes of diabetic ketoacidosis. PAST SURGICAL HISTORY: Significant for Port-A-Cath placement and removal, also incision and drainage of left axillary abscess, has also multiple EGDs. FAMILY HISTORY: Unremarkable. SOCIAL HISTORY: She lives with her mother. She does not smoke, drink alcohol; however, she used crystal meth. ALLERGIES: SHE IS ALLERGIC TO AMPHETAMINE AND ADHESIVE TAPE. MEDICATIONS: She is currently on following medications: She is on NovoLog insulin as insulin sliding scale, Levemir insulin 20 units twice a day, magnesium oxide 400 mg twice a day, metoclopramide for Reglan 10 mg 4 times a day, ondansetron 4 mg every 8 hours, potassium chloride 20 mEq twice a day, and ranitidine 150 mg twice a day. REVIEW OF SYSTEMS: As per history of present illness. PHYSICAL EXAMINATION: GENERAL: On arrival to the Emergency Room, she was pale, but not jaundiced, cyanosed, or thyromegaly. No jugular venous distention or limb edema. VITAL SIGNS: Her heart rate was 125, blood pressure was 111/74, temperature was 98.1, respiratory rate was 20, and oxygen saturation was 99% on room air. HEAD, EYES, EARS, NOSE, THROAT: Showed normocephalic, atraumatic. NECK: Supple. HEART: Showed normal first and second heart sounds with no gallop, rub or murmur. CHEST: Clear to auscultation. No crepitation or rhonchi. ABDOMEN: Slightly scaphoid, soft, nontender. No guarding or rigidity. No organomegaly. All hernial orifices intact. Bowel sounds normal. NEUROLOGIC: She is awake, alert, responding appropriately. Her cranial nerves are intact. She moves extremities without difficulty. She ambulates without assistance or assistive devices. LABORATORY DATA: Her lab work initially showed a white cell count of 9400; hemoglobin 12; hematocrit 36; MCV 86 and platelet count of 389,000. Her chemistry showed a serum sodium of 133, potassium 4.4, chloride 99, bicarbonate 11, anion gap of 23, BUN 15, creatinine 0.8, estimated GFR was 86 mL per minute. Her glucose was 116, calcium was 8.4. Total bilirubin, AST, ALT, alkaline phosphatase were normal. Total protein was 6.8, albumin 3.3. Urinalysis was unremarkable. Urine tox screen was negative. Her influenza A and B were negative as well as rapid Streptococcus group A test negative. She did have acute abdomen series, which showed no evidence of bowel obstruction. The patient was treated with IV fluid and insulin. When I saw her this morning, she looked well and was clearly in no apparent respiratory distress, pale, but not jaundiced, cyanosed or thyromegaly. No jugular venous distention. No limb edema. Her heart rate was 100, blood pressure 117/71, temperature was 97.8, respiratory rate was 18 and oxygen saturation was 97%. The rest of the exam is unremarkable. Her lab work this morning showed a white cell count of 7400; hemoglobin 9.5; hematocrit 27.8; MCV 83 and platelet count of 294,000. Her chemistry showed a serum sodium 134, potassium 3.8, chloride 104, bicarbonate 18, anion gap of 12, BUN 13, creatinine 0.7, estimated GFR was 101 mL per minute and her glucose 137, calcium was 7.9. FINAL DISCHARGE DIAGNOSES: 1. Mild diabetic ketoacidosis, resolved. 2. Dilutional hyponatremia, resolved. 3. Type 1 diabetes mellitus, recurrent ____ diabetic ketoacidosis and diabetic gastroparesis. ANAYELI FOSS MD DR: JOSÉ/regina JOB#: [id number] / [id number]
[2018-02-03] MEDS ORDERED: INSULIN DETEMIR 300 UNITS/3 ML INSULN.PEN. SQ SCH (21:00)
== END 2018-02-03 15:14 | disposition home or self-care (01) | DRG 74 ==
LOC: ER 20:30 → 1 SOUTH 02-03 00:50 → ICU 02-03 00:50 → UNDOADMIN 02-03 00:50
PROVIDERS: ADMIT Internal Medicine; ATTEND Internal Medicine
DX: E10.43 Type 1 diabetes mellitus with diabetic autonomic (poly)neuropathy (principal); E87.1 Hypo-osmolality and hyponatremia; E10.10 Type 1 diabetes mellitus with ketoacidosis without coma; K31.84 Gastroparesis; F15.90 Other stimulant use, unspecified, uncomplicated; F19.10 Other psychoactive substance abuse, uncomplicated; F41.9 Anxiety disorder, unspecified; F17.210 Nicotine dependence, cigarettes, uncomplicated; K21.9 Gastro-esophageal reflux disease without esophagitis; Z83.3 Family history of diabetes mellitus; Z88.8 Allergy status to other drugs, medicaments and biological substances; Z91.048 Other nonmedicinal substance allergy status
CPT/HCPCS: 36415; 74022; 80048; 80053; 80076; 80307; 81001; 82947; 83690; 84484; 84702; 85025; 87070; 87086; 87641; 87804; 87880; 93005; J1200; J1815; J1885; J2270; J2405; J7120; J8597; S0028; G0479; J7030

== ENCOUNTER 2018-02-05 17:28 | Emergency (ER) | payer SELFPAY ==
[~2018-02-05] VITALS: Ht 170.2 cm; Wt 61.4 kg
[2018-02-05] MEDS ORDERED: IV NORMAL SALINE 1,000ML 1,000 ML IV ONE ×2 (18:15)
[2018-02-05 18:22] LABS: BASO # 0.1 x10^3/uL (0.0-0.2); BASO % 1 % (0-3); EOS # 0.1 x10^3/uL (0.0-0.7); EOS % 1 % (0-3); HEMOGLOBIN 12.7 g/dL (12.0-15.5); LYMPH % 33 % (24-48); MEAN CORPUSCULAR HEMOGLOBIN 28 pg (25-35); MEAN CORPUSCULAR HGB CONC 34 g/dL (31-37); MEAN CORPUSCULAR VOLUME 84 fL (79-100); MONO # 0.4 x10^3/uL (0.0-1.1); MONO % 7 % (0-9); NEUT # 3.5 x10^3uL (1.8-7.7); NEUT % 57 % (31-73); PLATELET COUNT 312 x10^3/uL (140-400); RED BLOOD COUNT 4.53 x10^6/uL (3.50-5.40); RED CELL DISTRIBUTION WIDTH 14.5 % (11.5-14.5); WHITE BLOOD COUNT 6.1 x10^3/uL (4.0-11.0)
[2018-02-05] MEDS ORDERED: ONDANSETRON PF 4 MG/2 ML VIAL. IV ONE (18:45)
[2018-02-05 19:51] LABS: ALBUMIN 3.2 g/dL (3.4-5.0); CALCIUM 8.4 mg/dL (8.5-10.1); CREATININE 0.6 mg/dL (0.6-1.0); GFR 120.8; MAGNESIUM 1.7 mg/dL (1.8-2.4); POTASSIUM 4.3 mmol/L (3.5-5.1); TOTAL BILIRUBIN 0.6 mg/dL (0.2-1.0); TOTAL PROTEIN 6.5 g/dL (6.4-8.2)
[2018-02-05] MEDS ORDERED: MORPHINE SULFATE 4 MG/ML DISP.SYRIN. IV ONE (20:00)
[2018-02-05 20:02] LABS: BACTERIA,URINE MOD /HPF (0-FEW); BILIRUBIN,URINE NEG (NEG); CLARITY,URINE CLOUDY; COLOR,URINE YELLOW; GLUCOSE,URINE >=1000 mg/dL (NEG); NITRITE,URINE NEG (NEG); SQUAMOUS EPITHELIAL CELL,UR FEW /LPF; UROBILINOGEN,URINE 0.2 mg/dL (0.2 mg/dL); WBC,URINE >40 /HPF (0-4)
[2018-02-05 20:20] VITALS: BP 118/72
--- NOTE | 2018-02-05 20:57 | PHYS DOC ---
Past History Past Medical History: Anxiety, Diabetes, GERD, Other Additional Past Medical Histor: pt reports several admissions for "high blood sugar" Past Surgical History: No Surgical History Smoking: Less than 1pk/day Alcohol Use: None Drug Use: Amphetamine Adult General Chief Complaint Chief Complaint: BLOOD SUGAR PROBLEM HPI HPI Patient is a 27-year-old female with history significant for brittle diabetes and multiple episodes of DKA was recently admitted to the hospital for blood sugar management presents here today secondary to nausea vomiting diffuse pain and hyperglycemia. Patient reports that she does not feel as bad as she normally would if she was in DKA. Patient has any recent fevers shakes chills cough cold rhinorrhea dysuria frequency urgency melena or blood per rectum chest pain or shortness of breath. Patient reports that she has been compliant with her insulin and prior to arrival to the ER she took 5 units of regular insulin subcutaneous. Review of systems: Constitutional: Denies fever or chills Eyes: Denies change in visual acuity, redness, or eye pain HENT: Denies nasal congestion or sore throat Respiratory: Denies cough or shortness of breath All other systems were reviewed and found to be within normal limits, except as documented in this note. Physical exam: Constitutional: Well developed, well nourished, no acute distress, non-toxic appearance. HENT: Normocephalic, atraumatic, bilateral external ears normal, nose normal. Eyes: PERRLA, EOMI, conjunctiva normal, no discharge. Neck: Normal range of motion, no tenderness, supple, no stridor. Cardiovascular: Heart rate regular rhythm, Lungs & Thorax: Bilateral breath sounds clear to auscultation Abdomen: No abdominal distention. Skin: Warm, dry, no erythema, no rash. Back: Normal spinal curvature Extremities: No tenderness, no cyanosis, no clubbing, ROM intact, no edema. Neurologic: Alert and oriented X 3, normal motor function, normal sensory function, no focal deficits noted. Psychologic: Affect normal, judgement normal, mood normal. Patient's ER physical exam was most remarkable: Patient is alert awake and oriented 3. No acute distress. No ketones breath in her urine. No tachycardia. No tachypnea. Abdomen is soft mild tenderness to palpation diffusely no rebound or guarding NABS Reevaluated multiple times in the ED Abdomen soft nontender no rebound or guarding NABS. No Boudreaux sign, no tenderness to McBurney's point. Patient not present with any signs or symptoms of be consistent with an acute surgical abdomen. EKG as interpreted by ER physician reveals: Labs reviewed: No anion gap, normal bicarbonate. Patient does have ketones as well as sugar and her UA. Assessment and plan: 1. 27-year-old brittle diabetic who presents here today with hyperglycemia. Although the patient does have ketonuria and glucose urea the patient does not appear to be in diabetic ketoacidosis at this time. Patient was informed of the portal nature of her stay and she understands the need to remain compliant with diet as well as insulin-dependent return the ER she has any further concerns or problems. While in the ER the patient was given morphine and Zofran and she reports that she feels 100% improved after the IV fluids as well. Patient be discharged home in stable condition at this time with instructions to see her family physician in the morning. Current Medications Current Medications Current Medications Medications (Trade) Dose Ordered Sig/Chevy Start Time Stop Time Status Last Admin Dose Admin Morphine Sulfate (Morphine 4mg Syringe) 4 mg 1X ONCE 02/05/18 20:00 02/05/18 20:01 DC 02/05/18 20:11 4 MG Ondansetron HCl (Zofran) 4 mg 1X ONCE 02/05/18 18:45 02/05/18 18:50 DC 02/05/18 18:47 4 MG Sodium Chloride 1,000 ml @ 1,000 mls/hr 1X ONCE 02/05/18 18:15 02/05/18 19:14 DC 02/05/18 20:10 1,000 MLS/HR Allergies Allergies Allergies Coded Allergies Type Severity Reaction Last Updated Verified acetaminophen Allergy Intermediate HIVES 01/18/18 Yes adhesive tape Allergy Intermediate 01/18/18 Yes Current Patient Data Vital Signs Vital Signs Date Time Temp Pulse Resp B/P (MAP) Pulse Ox O2 Delivery O2 Flow Rate FiO2 02/05/18 20:11 18 100 Room Air 02/05/18 17:35 98.3 116 Lab Results Laboratory Tests Test 02/05/18 17:53 02/05/18 18:05 02/05/18 18:29 02/05/18 18:35 Glucose (Fingerstick) 360 mg/dL (70-99) H White Blood Count 6.1 x10^3/uL (4.0-11.0) Red Blood Count 4.53 x10^6/uL (3.50-5.40) Hemoglobin 12.7 g/dL (12.0-15.5) Hematocrit 38.0 % (36.0-47.0) # Mean Corpuscular Volume 84 fL (79-100) Mean Corpuscular Hemoglobin 28 pg (25-35) Mean Corpuscular Hemoglobin Concent 34 g/dL (31-37) Red Cell Distribution Width 14.5 % (11.5-14.5) Platelet Count 312 x10^3/uL (140-400) Neutrophils (%) (Auto) 57 % (31-73) Lymphocytes (%) (Auto) 33 % (24-48) Monocytes (%) (Auto) 7 % (0-9) Eosinophils (%) (Auto) 1 % (0-3) Basophils (%) (Auto) 1 % (0-3) Neutrophils # (Auto) 3.5 x10^3uL (1.8-7.7) Lymphocytes # (Auto) 2.0 x10^3/uL (1.0-4.8) Monocytes # (Auto) 0.4 x10^3/uL (0.0-1.1) Eosinophils # (Auto) 0.1 x10^3/uL (0.0-0.7) Basophils # (Auto) 0.1 x10^3/uL (0.0-0.2) Sodium Level 131 mmol/L (136-145) L Potassium Level 4.3 mmol/L (3.5-5.1) Chloride Level 93 mmol/L (98-107) L Carbon Dioxide Level 25 mmol/L (21-32) Anion Gap 13 (6-14) Blood Urea Nitrogen 11 mg/dL (7-20) Creatinine 0.6 mg/dL (0.6-1.0) Estimated GFR (Cockcroft-Gault) 120.8 BUN/Creatinine Ratio 18 (6-20) Glucose Level 379 mg/dL (70-99) H Calcium Level 8.4 mg/dL (8.5-10.1) L Magnesium Level 1.7 mg/dL (1.8-2.4) L Total Bilirubin 0.6 mg/dL (0.2-1.0) Aspartate Amino Transferase (AST) 17 U/L (15-37) Alanine Aminotransferase (ALT) 21 U/L (14-59) Alkaline Phosphatase 80 U/L (46-116) Total Protein 6.5 g/dL (6.4-8.2) Albumin 3.2 g/dL (3.4-5.0) L Albumin/Globulin Ratio 1.0 (1.0-1.7) Lipase 45 U/L (73-393) L POC Urine HCG, Qualitative hcg negative (Negative) Test 02/05/18 19:21 Urine Collection Type Unknown Urine Color Yellow Urine Clarity Cloudy Urine pH 7.0 Urine Specific Blanchard 1.010 Urine Protein Neg (NEG-TRACE) Urine Glucose (UA) >=1000 mg/dL (NEG) Urine Ketones (Stick) >=160 mg/dL (NEG) Urine Blood Trace (NEG) Urine Nitrite Neg (NEG) Urine Bilirubin Neg (NEG) Urine Urobilinogen Dipstick 0.2 mg/dL (0.2 mg/dL) Urine Leukocyte Esterase Mod (NEG) Urine RBC 6-10 /HPF (0-2) Urine WBC >40 /HPF (0-4) Urine Squamous Epithelial Cells Few /LPF Urine Bacteria Mod /HPF (0-FEW) EKG EKG [] Radiology/Procedures Radiology/Procedures [] Course & Med Decision Making Course & Med Decision Making Pertinent Labs and Imaging studies reviewed. (See chart for details) [] Dragon Disclaimer Dragon Disclaimer This electronic medical record was generated, in whole or in part, using a voice recognition dictation system. Departure Departure: Impression: Primary Impression: Uncontrolled diabetes mellitus Disposition: 01 HOME, SELF-CARE Condition: IMPROVED Referrals: ESVIN ROLLINS (PCP) Patient Instructions: Hyperglycemia Additional Instructions: Please make an appointment to see her family doctor in the morning to be reevaluated and to help her manage her blood sugar more effectively. SAMAN BHATTI MD Feb 05, 2018 20:57
[2018-02-08] MEDS ORDERED: ONDA4TAB10 SL (17:44)
== END 2018-02-05 21:40 | disposition home or self-care (01) ==
LOC: ER 17:28
DX: E11.65 Type 2 diabetes mellitus with hyperglycemia (principal); E11.10 Type 2 diabetes mellitus with ketoacidosis without coma; F41.9 Anxiety disorder, unspecified; K21.9 Gastro-esophageal reflux disease without esophagitis; F17.200 Nicotine dependence, unspecified, uncomplicated; F15.10 Other stimulant abuse, uncomplicated; Z79.4 Long term (current) use of insulin; Z88.6 Allergy status to analgesic agent; Z88.8 Allergy status to other drugs, medicaments and biological substances
CPT/HCPCS: 36415; 80053; 81001; 81025; 82947; 83690; 83735; 85025; 87086; 96361; 96374; 96375; 99285; J2270; J2405; J7030

== ENCOUNTER 2018-02-07 13:59 | Emergency (ER) | payer SELFPAY ==
[~2018-02-07] VITALS: Ht 170.2 cm; Wt 61.4 kg
[2018-02-07] MEDS ORDERED: IV NORMAL SALINE 1,000ML 1,000 ML IV ONE (14:15)
[2018-02-07] MEDS ORDERED: ONDANSETRON PF 4 MG/2 ML VIAL. IV ONE (14:30)
[2018-02-07 14:37] LABS: BASO # 0.1 x10^3/uL (0.0-0.2); BASO % 1 % (0-3); EOS # 0.1 x10^3/uL (0.0-0.7); EOS % 1 % (0-3); HEMOGLOBIN 13.1 g/dL (12.0-15.5); LYMPH # 1.8 x10^3/uL (1.0-4.8); LYMPH % 22 % (24-48); MEAN CORPUSCULAR HEMOGLOBIN 28 pg (25-35); MEAN CORPUSCULAR HGB CONC 34 g/dL (31-37); MEAN CORPUSCULAR VOLUME 84 fL (79-100); MONO # 0.6 x10^3/uL (0.0-1.1); MONO % 7 % (0-9); NEUT # 5.5 x10^3uL (1.8-7.7); NEUT % 68 % (31-73); PLATELET COUNT 324 x10^3/uL (140-400); RED BLOOD COUNT 4.66 x10^6/uL (3.50-5.40); RED CELL DISTRIBUTION WIDTH 14.8 % (11.5-14.5)
[2018-02-07 14:40] LABS: CALCIUM 9.3 mg/dL (8.5-10.1); CREATININE 0.7 mg/dL (0.6-1.0); GFR 101.1; MAGNESIUM 1.7 mg/dL (1.8-2.4); POTASSIUM 3.6 mmol/L (3.5-5.1)
[2018-02-07] MEDS ORDERED: KETOROLAC 15 MG/ML VIAL. IV ONE (15:15)
[2018-02-07] MEDS ORDERED: INSULIN ASPART 300 UNITS/3 ML INSULN.PEN SQ ONE (15:15)
[2018-02-07 15:57] LABS: BILIRUBIN,URINE NEG (NEG); CLARITY,URINE TURBID; COLOR,URINE YELLOW; GLUCOSE,URINE >=1000 mg/dL (NEG)
[2018-02-07 15:58] LABS: BACTERIA,URINE MOD /HPF (0-FEW); NITRITE,URINE NEG (NEG); SQUAMOUS EPITHELIAL CELL,UR FEW /LPF; UROBILINOGEN,URINE 0.2 mg/dL (0.2 mg/dL); WBC,URINE >40 /HPF (0-4)
[2018-02-07] MEDS ORDERED: SULF1TAB24 PO (16:06)
--- NOTE | 2018-02-07 16:08 | PHYS DOC ---
Past History Past Medical History: Anxiety, Diabetes, GERD, Other Additional Past Medical Histor: pt reports several admissions for "high blood sugar" Past Surgical History: No Surgical History Smoking: Less than 1pk/day Alcohol Use: None Drug Use: Amphetamine Adult General Chief Complaint Chief Complaint: back pain HPI HPI Patient is a 27 year old F who presents with bilateral lower back pain. This pain is chronic however she feels that is worsened over the past 24 hours. She also describes nausea which commonly happens for her when her sugars are elevated. Her sugars are elevated today and she was recently discharged from the hospital due to uncontrolled diabetes. 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 She states that she has had worsening difficulty urinating over the past 24 hours. She denies abdominal pain. She denies pain that is worse on one side. She had has no other associated symptoms. She has no other exacerbating or alleviating factors. Review of Systems Review of Systems Constitutional: Denies fever or chills [] Eyes: Denies change in visual acuity, redness, or eye pain [] HENT: Denies nasal congestion or sore throat [] Respiratory: Denies cough or shortness of breath [] Cardiovascular: No additional information not addressed in HPI [] GI: Except history of present illness : Except history of present illness Musculoskeletal: Denies joint pain [] Integument: Denies rash or skin lesions [] Neurologic: Denies headache, focal weakness or sensory changes [] Endocrine: Denies polyuria or polydipsia [] All other systems were reviewed and found to be within normal limits, except as documented in this note. Family History Family History No pertinent medical history was reported Current Medications Current Medications Current Medications Medications (Trade) Dose Ordered Sig/Chevy Start Time Stop Time Status Last Admin Dose Admin Insulin Aspart (NovoLOG) 5 units 1X ONCE 02/07/18 15:15 02/07/18 15:16 DC 02/07/18 15:18 5 UNITS Ketorolac Tromethamine (Toradol) 15 mg 1X ONCE 02/07/18 15:15 02/07/18 15:16 DC 02/07/18 15:17 15 MG Ondansetron HCl (Zofran) 4 mg 1X ONCE 02/07/18 14:30 02/07/18 14:31 DC 02/07/18 14:29 4 MG Sodium Chloride 1,000 ml @ 1,000 mls/hr 1X ONCE 02/07/18 14:15 02/07/18 15:14 DC 02/07/18 14:30 1,000 MLS/HR Allergies Allergies Allergies Coded Allergies Type Severity Reaction Last Updated Verified acetaminophen Allergy Intermediate HIVES 01/18/18 Yes adhesive tape Allergy Intermediate 01/18/18 Yes Physical Exam Physical Exam Constitutional: Well developed, well nourished, no acute distress, non-toxic appearance. [] HENT: Normocephalic, atraumatic, Eyes: EOMI, conjunctiva normal, no discharge. [] Neck: Normal range of motion, no tenderness, supple, no stridor. [] Cardiovascular:Heart rate regular rhythm, Lungs & Thorax: Bilateral breath sounds clear to auscultation [] Abdomen: Bowel sounds normal, soft, no tenderness, no masses, no pulsatile masses. [] Skin: Warm, dry, no erythema, no rash. [] Back: no CVA tenderness. [] Nonfocal diffuse back pain with no objective findings Extremities: No tenderness, no cyanosis, no clubbing, ROM intact, no edema. [] Neurologic: Alert and oriented X 3, normal motor function, normal sensory function, no focal deficits noted. [] Psychologic: Affect normal, judgement normal, mood normal. [] Current Patient Data Vital Signs Vital Signs Date Time Temp Pulse Resp B/P (MAP) Pulse Ox O2 Delivery O2 Flow Rate FiO2 02/07/18 15:32 100 18 144/98 (113) 100 Room Air 02/07/18 14:06 98.2 Lab Results Laboratory Tests Test 02/07/18 14:15 02/07/18 14:18 02/07/18 15:21 White Blood Count 8.0 x10^3/uL (4.0-11.0) Red Blood Count 4.66 x10^6/uL (3.50-5.40) Hemoglobin 13.1 g/dL (12.0-15.5) Hematocrit 39.0 % (36.0-47.0) Mean Corpuscular Volume 84 fL (79-100) Mean Corpuscular Hemoglobin 28 pg (25-35) Mean Corpuscular Hemoglobin Concent 34 g/dL (31-37) Red Cell Distribution Width 14.8 % (11.5-14.5) H Platelet Count 324 x10^3/uL (140-400) Neutrophils (%) (Auto) 68 % (31-73) Lymphocytes (%) (Auto) 22 % (24-48) L Monocytes (%) (Auto) 7 % (0-9) Eosinophils (%) (Auto) 1 % (0-3) Basophils (%) (Auto) 1 % (0-3) Neutrophils # (Auto) 5.5 x10^3uL (1.8-7.7) Lymphocytes # (Auto) 1.8 x10^3/uL (1.0-4.8) Monocytes # (Auto) 0.6 x10^3/uL (0.0-1.1) Eosinophils # (Auto) 0.1 x10^3/uL (0.0-0.7) Basophils # (Auto) 0.1 x10^3/uL (0.0-0.2) Sodium Level 133 mmol/L (136-145) L Potassium Level 3.6 mmol/L (3.5-5.1) Chloride Level 92 mmol/L (98-107) L Carbon Dioxide Level 28 mmol/L (21-32) Anion Gap 13 (6-14) Blood Urea Nitrogen 11 mg/dL (7-20) Creatinine 0.7 mg/dL (0.6-1.0) Estimated GFR (Cockcroft-Gault) 101.1 Glucose Level 333 mg/dL (70-99) H Calcium Level 9.3 mg/dL (8.5-10.1) Magnesium Level 1.7 mg/dL (1.8-2.4) L Glucose (Fingerstick) 327 mg/dL (70-99) H Urine Collection Type Unknown Urine Color Yellow Urine Clarity Turbid Urine pH 7.0 Urine Specific Panther 1.015 Urine Protein Neg (NEG-TRACE) Urine Glucose (UA) >=1000 mg/dL (NEG) Urine Ketones (Stick) >=160 mg/dL (NEG) Urine Blood Small (NEG) Urine Nitrite Neg (NEG) Urine Bilirubin Neg (NEG) Urine Urobilinogen Dipstick 0.2 mg/dL (0.2 mg/dL) Urine Leukocyte Esterase Mod (NEG) Urine RBC 11-20 /HPF (0-2) Urine WBC >40 /HPF (0-4) Urine Squamous Epithelial Cells Few /LPF Urine Bacteria Mod /HPF (0-FEW) EKG EKG [] Radiology/Procedures Radiology/Procedures [] Course & Med Decision Making Course & Med Decision Making Pertinent Labs and Imaging studies reviewed. (See chart for details) [] Dragon Disclaimer Dragon Disclaimer This electronic medical record was generated, in whole or in part, using a voice recognition dictation system. Departure Departure: Impression: Primary Impression: UTI (urinary tract infection) Disposition: HOME, SELF-CARE Condition: STABLE Referrals: ESVIN ROLLINS (PCP) Patient Instructions: Urinary Tract Infection Additional Instructions: Alonso was seen in the emergency department for back pain associated with nausea. No emergency medical condition was found on history or physical exam. She did have normal labs with the exception of elevated blood sugar and signs of urinary tract infection. She was started on antibiotic. She was encouraged to return to the emergency room if she develops new or worsening symptoms. She was also advised follow-up with her primary care doctor in the next 3-5 days for further management. Scripts Sulfamethoxazole/Trimethoprim (BACTRIM DS TABLET) 1 Each Tablet 1 TAB PO BID for 10 Days, #20 TAB Prov: PERNELL YODER MD 02/07/18 Problem Qualifiers Primary Impression: UTI (urinary tract infection) Urinary tract infection type: acute cystitis Hematuria presence: with hematuria Qualified Codes: N30.01 - Acute cystitis with hematuria PERNELL YODER MD Feb 07, 2018 16:08
[2018-02-07] MEDS ORDERED: SMZ/TMP 800/160MG TABLET. PO ONE (16:30)
[2018-02-07 17:09] VITALS: BP 129/87
[2018-02-08] MEDS ORDERED: ONDA4TAB10 SL (17:44)
== END 2018-02-07 17:12 | disposition home or self-care (01) ==
LOC: ER 13:59
DX: N30.01 Acute cystitis with hematuria (principal); K21.9 Gastro-esophageal reflux disease without esophagitis; F41.9 Anxiety disorder, unspecified; E11.9 Type 2 diabetes mellitus without complications; F17.200 Nicotine dependence, unspecified, uncomplicated; F15.10 Other stimulant abuse, uncomplicated; Z88.6 Allergy status to analgesic agent; Z88.8 Allergy status to other drugs, medicaments and biological substances
CPT/HCPCS: 36415; 80048; 81001; 82947; 83735; 85025; 96361; 96372; 96374; 96375; 99285; J1815; J1885; J2405; J7030

== ENCOUNTER 2018-02-07 21:44 | Inpatient (IN) | payer SELFPAY ==
[~2018-02-07] VITALS: Ht 170.2 cm; Wt 57.8 kg
[2018-02-07] MEDS ORDERED: IV NORMAL SALINE 1,000ML 1,000 ML IV ONE (22:00)
[2018-02-07] MEDS ORDERED: METOCLOPRAMIDE HCL 10 MG/2 ML VIAL. IV ONE (22:15)
[2018-02-07] MEDS ORDERED: ONDANSETRON PF 4 MG/2 ML VIAL. IV ONE (22:15)
[2018-02-07] MEDS ORDERED: MORPHINE SULFATE 4 MG/ML DISP.SYRIN. IV ONE (22:15)
[2018-02-07 22:26] LABS: BASO % 1 % (0-3); EOS # 0.1 x10^3/uL (0.0-0.7); EOS % 1 % (0-3); HEMATOCRIT 35.8 % (36.0-47.0); HEMOGLOBIN 11.9 g/dL (12.0-15.5); LYMPH # 2.1 x10^3/uL (1.0-4.8); LYMPH % 31 % (24-48); MEAN CORPUSCULAR HEMOGLOBIN 29 pg (25-35); MEAN CORPUSCULAR HGB CONC 33 g/dL (31-37); MEAN CORPUSCULAR VOLUME 85 fL (79-100); MONO # 0.5 x10^3/uL (0.0-1.1); MONO % 7 % (0-9); NEUT % 60 % (31-73); PLATELET COUNT 297 x10^3/uL (140-400); RED BLOOD COUNT 4.19 x10^6/uL (3.50-5.40); RED CELL DISTRIBUTION WIDTH 14.9 % (11.5-14.5); WHITE BLOOD COUNT 6.6 x10^3/uL (4.0-11.0)
[2018-02-07 22:32] LABS: ALBUMIN 3.7 g/dL (3.4-5.0); ALBUMIN/GLOBULIN RATIO 1.1 (1.0-1.7); CALCIUM 9.2 mg/dL (8.5-10.1); CREATININE 0.6 mg/dL (0.6-1.0); GFR 120.8; POTASSIUM 4.2 mmol/L (3.5-5.1); TOTAL BILIRUBIN 0.7 mg/dL (0.2-1.0)
[2018-02-07] MEDS ORDERED: INSULIN REGULAR 100 UNIT/ML 10ML VIAL. IV ONE (23:30)
[2018-02-07 23:36] LABS: BILIRUBIN,URINE NEG (NEG); CLARITY,URINE HAZY; COLOR,URINE YELLOW; GLUCOSE,URINE >=1000 mg/dL (NEG); UROBILINOGEN,URINE 0.2 mg/dL (0.2 mg/dL)
[2018-02-07 23:37] LABS: BACTERIA,URINE FEW /HPF (0-FEW); NITRITE,URINE NEG (NEG); RBC,URINE 0 /HPF (0-2); SQUAMOUS EPITHELIAL CELL,UR FEW /LPF; WBC,URINE >40 /HPF (0-4)
[2018-02-08] MEDS ORDERED: cefTRIAXone IV Push 1 GM VIAL. IVP ONE (00:48)
[2018-02-08] MEDS ORDERED: IV NORMAL SALINE 50ML 50 ML ONE (00:49)
--- NOTE | 2018-02-08 00:58 | PHYS DOC ---
Past History Past Medical History: Anemia, Depression, Diabetes, GERD, MRSA, UTI, Other Additional Past Medical Histor: pt reports several admissions for "high blood sugar" Past Surgical History: Other Smoking: Less than 1pk/day Alcohol Use: None Drug Use: Methamphetamine Adult General Chief Complaint Chief Complaint: NAUSEA/VOMITING/DIARRHEA HPI HPI Patient is a 7-year-old female with history significant for labile diabetes who has multiple ER visits and hospitalizations secondary to nausea vomiting hyperglycemia and uncontrolled diabetes as well as intractable emesis presents to the ER today after being released from the ER several hours ago with a diagnosis of intractable emesis/urinary tract infection secondary to persistent vomiting. I had taken care of the patient on Monday, 24 hours after she was discharged from the hospital for similar symptoms. At that time the patient received some morphine and Zofran and was feeling better and was discharged home. Patient reports that she was home Monday and return to the ED Monday with persistent vomiting. Patient was found to have urinary tract infection was sent home. Patient reports prior to being discharged she still felt nauseous and felt that she was likely negative be able to succeed as an outpatient. She presents to the ER today was noted to have a urinary tract infection as above, ketonuria, glucose urea, no anion gap, no acidosis, slight hyperglycemia. Patient did have multiple episodes of vomiting here in the ED was given Zofran as well as Reglan to sister and IV fluids. Patient is given a dose of IV Rocephin secondary to her urinary tract infection. Review of systems: Constitutional: Denies fever or chills Eyes: Denies change in visual acuity, redness, or eye pain HENT: Denies nasal congestion or sore throat All other review systems are negative except as documented in the history of present illness portion. Physical exam: Constitutional: Well developed, well nourished, no acute distress, non-toxic appearance. HENT: Normocephalic, atraumatic, bilateral external ears normal, nose normal. Eyes: EOMI, conjunctiva normal, no discharge. Neck: Normal range of motion, no tenderness, supple, no stridor. Cardiovascular:Heart rate regular rhythm Lungs & Thorax: Bilateral breath sounds clear to auscultation no respiratory distress Abdomen: Bowel sounds normal, soft, mild tenderness, no masses, no pulsatile masses. Skin: Warm, dry, no erythema, no rash. Back: No tenderness, no CVA tenderness. Extremities: No tenderness, no cyanosis, no clubbing, ROM intact, no edema. Neurologic: Alert and oriented X 3, normal motor function, normal sensory function, no focal deficits noted. Psychologic: Affect normal, judgement normal, mood normal. Abdomen soft tender no rebound or guarding NABS. No Boudreaux sign, no tenderness to McBurney's point. Patient not present with any signs or symptoms of be consistent with an acute surgical abdomen. Assessment and plan To 7-year-old with urinary tract infection, intractable emesis, uncontrolled diabetes, ketonuria who is unable to keep down her antibiotics for urinary tract infection secondary persistent emesis. Patient has been hydrated here in the ED and treated for her hyperglycemia with IV insulin. Patient also given IV Rocephin for her urinary tract infection as well as Reglan and Zofran for her nausea. Patient reports she still feels extremity nauseous and does not think that she will be able to make it to the as an outpatientt with oral antibiotics. Case has been discussed with who is agreed to assist us with inpatient management of this patient. Current Medications Current Medications Current Medications Medications (Trade) Dose Ordered Sig/Chevy Start Time Stop Time Status Last Admin Dose Admin Ceftriaxone Sodium 1 gm/ Sodium Chloride 50 ml @ 100 mls/hr 1X ONCE 02/08/18 00:30 02/08/18 00:59 UNV Insulin Human Regular (NovoLIN R) 5 unit 1X ONCE 02/07/18 23:30 02/07/18 23:31 DC 02/07/18 23:24 5 UNIT Metoclopramide HCl (Reglan Vial) 10 mg 1X ONCE 02/07/18 22:15 02/07/18 22:16 DC 02/07/18 22:09 10 MG Morphine Sulfate (Morphine 4mg Syringe) 4 mg 1X ONCE 02/07/18 22:15 02/07/18 22:16 DC 02/07/18 22:16 4 MG Ondansetron HCl (Zofran) 8 mg 1X ONCE 02/07/18 22:15 02/07/18 22:16 DC 02/07/18 22:09 8 MG Sodium Chloride 1,000 ml @ 1,000 mls/hr 1X ONCE 02/07/18 22:00 02/07/18 22:59 DC 02/07/18 22:09 1,000 MLS/HR Allergies Allergies Allergies Coded Allergies Type Severity Reaction Last Updated Verified acetaminophen Allergy Intermediate HIVES 01/18/18 Yes adhesive tape Allergy Intermediate 01/18/18 Yes Current Patient Data Vital Signs Vital Signs Date Time Temp Pulse Resp B/P (MAP) Pulse Ox O2 Delivery O2 Flow Rate FiO2 02/07/18 21:44 98.8 107 16 97 Room Air Lab Results Laboratory Tests Test 02/07/18 22:15 02/07/18 22:21 02/07/18 23:10 White Blood Count 6.6 x10^3/uL (4.0-11.0) Red Blood Count 4.19 x10^6/uL (3.50-5.40) Hemoglobin 11.9 g/dL (12.0-15.5) L Hematocrit 35.8 % (36.0-47.0) L Mean Corpuscular Volume 85 fL (79-100) Mean Corpuscular Hemoglobin 29 pg (25-35) Mean Corpuscular Hemoglobin Concent 33 g/dL (31-37) Red Cell Distribution Width 14.9 % (11.5-14.5) H Platelet Count 297 x10^3/uL (140-400) Neutrophils (%) (Auto) 60 % (31-73) Lymphocytes (%) (Auto) 31 % (24-48) Monocytes (%) (Auto) 7 % (0-9) Eosinophils (%) (Auto) 1 % (0-3) Basophils (%) (Auto) 1 % (0-3) Neutrophils # (Auto) 4.0 x10^3uL (1.8-7.7) Lymphocytes # (Auto) 2.1 x10^3/uL (1.0-4.8) Monocytes # (Auto) 0.5 x10^3/uL (0.0-1.1) Eosinophils # (Auto) 0.1 x10^3/uL (0.0-0.7) Basophils # (Auto) 0.0 x10^3/uL (0.0-0.2) Sodium Level 133 mmol/L (136-145) L Potassium Level 4.2 mmol/L (3.5-5.1) # Chloride Level 93 mmol/L (98-107) L Carbon Dioxide Level 23 mmol/L (21-32) Anion Gap 17 (6-14) H Blood Urea Nitrogen 10 mg/dL (7-20) Creatinine 0.6 mg/dL (0.6-1.0) Estimated GFR (Cockcroft-Gault) 120.8 BUN/Creatinine Ratio 17 (6-20) Glucose Level 337 mg/dL (70-99) H Calcium Level 9.2 mg/dL (8.5-10.1) Total Bilirubin 0.7 mg/dL (0.2-1.0) Aspartate Amino Transferase (AST) 22 U/L (15-37) Alanine Aminotransferase (ALT) 20 U/L (14-59) Alkaline Phosphatase 82 U/L (46-116) Total Protein 7.0 g/dL (6.4-8.2) Albumin 3.7 g/dL (3.4-5.0) Albumin/Globulin Ratio 1.1 (1.0-1.7) POC Urine HCG, Qualitative hcg negative (Negative) Urine Collection Type Unknown Urine Color Yellow Urine Clarity Hazy Urine pH 7.0 Urine Specific [place] 1.015 Urine Protein Neg (NEG-TRACE) Urine Glucose (UA) >=1000 mg/dL (NEG) Urine Ketones (Stick) >=160 mg/dL (NEG) Urine Blood Neg (NEG) Urine Nitrite Neg (NEG) Urine Bilirubin Neg (NEG) Urine Urobilinogen Dipstick 0.2 mg/dL (0.2 mg/dL) Urine Leukocyte Esterase Small (NEG) Urine RBC 0 /HPF (0-2) Urine WBC >40 /HPF (0-4) Urine Squamous Epithelial Cells Few /LPF Urine Bacteria Few /HPF (0-FEW) EKG EKG [] Radiology/Procedures Radiology/Procedures [] Course & Med Decision Making Course & Med Decision Making Pertinent Labs and Imaging studies reviewed. (See chart for details) [] Dragon Disclaimer Dragon Disclaimer This electronic medical record was generated, in whole or in part, using a voice recognition dictation system. Departure Departure: Impression: Primary Impression: Abdominal pain Additional Impressions: Uncontrolled diabetes mellitus UTI (urinary tract infection) Intractable vomiting with nausea Disposition: ADMITTED INPATIENT Admitting Physician: Ramirez Machado Condition: STABLE Referrals: ESVIN ROLLINS (PCP) Problem Qualifiers SAMAN BHATTI MD Feb 08, 2018 00:58
[2018-02-08] MEDS ORDERED: MORPHINE SULFATE 4 MG/ML DISP.SYRIN. IV ONE (01:00)
[2018-02-08] MEDS ORDERED: INSULIN DETEMIR 300 UNITS/3 ML INSULN.PEN. SQ ONE (01:27)
[2018-02-08] MEDS ORDERED: IV NORMAL SALINE 1,000ML 1,000 ML IV SCH (01:40)
[2018-02-08] MEDS ORDERED: MORPHINE SULFATE 4 MG/ML DISP.SYRIN. IV PRN (01:45)
[2018-02-08] MEDS ORDERED: ONDANSETRON PF 4 MG/2 ML VIAL. IV PRN (01:45)
[2018-02-08 01:46] VITALS: BP 121/86
[2018-02-08 05:09] VITALS: BP 129/89
[2018-02-08] MEDS ORDERED: DEXTROSE 50% 25 GM / 50ML DISP.SYRIN. IV PRN (08:00)
[2018-02-08] MEDS: METOCLOPRAMIDE 10 MG TABLET PO SCH ×3 (08:56→17:24)
[2018-02-08] MEDS ORDERED: FAMOTIDINE 20 MG TABLET PO SCH (09:00)
[2018-02-08] MEDS ORDERED: MAGNESIUM OXIDE 400 MG TABLET PO SCH (09:00)
[2018-02-08] MEDS ORDERED: POTASSIUM CHLORIDE 20 MEQ TABLET.ER. PO SCH (09:00)
[2018-02-08] MEDS: INSULIN ASPART 300 UNITS/3 ML INSULN.PEN SQ SCH ×3 (09:01→17:28)
--- NOTE | 2018-02-08 09:23 | PDOC1 ---
History of Present Illness Reason for Visit: Diabetes, Vomiting, UTI History of Present Illness Pt states she has been sick and vomiting for 2 weeks. She has not had any of her anti-emetics available, though states she has been taking her Reglan. She is well-known to this service. She was seen in the ER on 02/05 and had a urine culture that now shows enterococcus. She was seen twice in the ER yesterday, the first time given fluids and Bactrim, pt did not take Bactrim, given Rocephin last night in ER. Pt feeling better this morning, eating liquids. No vomiting since admission. Denies fever. Denies diarrhea, cough, chest pain. Pt requesting saltines to eat. Lab was unable to draw blood this AM, pt declined attempt in foot or arterial. Chief Complaint: NAUSEA/VOMITING/DIARRHEA Allergies: Coded Allergies: acetaminophen (Verified Allergy, Intermediate, HIVES, 01/18/18) "WHEN I HAD MY ANKLE BX THEY GAVE ME TYLENOL AND I GOT HIVES ON MY LEG." adhesive tape (Verified Allergy, Intermediate, 01/18/18) Past Medical History Cardiac: No pertinent hx GI: Other (Gastroparesis) Endocrine: Diabetes Past Surgical History: No pertinent history Family History: No pertinent hx Past Social History Smoke: No Alcohol: none Drugs: Crystal meth (History of) Lives: with Family Domestic Violence: Neg Review of Systems Review Of Systems Fourteen system , review of systems has been reviewed. See HPI for pertinent positives and negative responses, other bustos all other systems are negative, non pertinent or non contributory Allergies: Coded Allergies: acetaminophen (Verified Allergy, Intermediate, HIVES, 01/18/18) "WHEN I HAD MY ANKLE BX THEY GAVE ME TYLENOL AND I GOT HIVES ON MY LEG." adhesive tape (Verified Allergy, Intermediate, 01/18/18) Medications Current Medications Ondansetron HCl (Zofran) 8 mg 1X ONCE IV Last administered on 02/07/18at 22:09 ; Start 02/07/18 at 22:15; Stop 02/07/18 at 22:16; Status DC Sodium Chloride 1,000 ml @ 1,000 mls/hr 1X ONCE IV Last administered on at 22:09; Start 02/07/18 at 22:00; Stop 02/07/18 at 22:59; Status DC Metoclopramide HCl (Reglan Vial) 10 mg 1X ONCE IV Last administered on at 22:09; Start 02/07/18 at 22:15; Stop 02/07/18 at 22:16; Status DC Morphine Sulfate (Morphine 4mg Syringe) 4 mg 1X ONCE IV Last administered on at 22:16; Start 02/07/18 at 22:15; Stop 02/07/18 at 22:16; Status DC Insulin Human Regular (NovoLIN R) 5 unit 1X ONCE IV Last administered on at 23:24; Start 02/07/18 at 23:30; Stop 02/07/18 at 23:31; Status DC Ceftriaxone Sodium 1 gm/ Sodium Chloride 50 ml @ 100 mls/hr 1X ONCE IV Last administered on 02/08/18at 00:30; Start 02/08/18 at 00:30; Stop 02/08/18 at 01:49 ; Status DC Ceftriaxone Sodium (Rocephin) 1 gm STK-MED ONCE IVP ; Start 02/08/18 at 00:48; Stop 02/08/18 at 00:49; Status DC Sodium Chloride 50 ml @ As Directed STK-MED ONCE .ROUTE ; Start 02/08/18 at 00: 49; Stop 02/08/18 at 00:50; Status DC Morphine Sulfate (Morphine 4mg Syringe) 4 mg 1X ONCE IV Last administered on at 01:02; Start 02/08/18 at 01:00; Stop 02/08/18 at 01:50; Status DC Insulin Detemir (Levemir) 300 units STK-MED ONCE SQ ; Start 02/08/18 at 01:27; Stop 02/08/18 at 01:28; Status DC Ondansetron HCl (Zofran) 4 mg PRN Q4HRS PRN IV NAUSEA/VOMITING; Start 02/08/18 at 01:45; Stop 02/09/18 at 01:44 Morphine Sulfate (Morphine 4mg Syringe) 2 mg PRN Q2HR PRN IV PAIN Last administered on 02/08/18at 04:40; Start 02/08/18 at 01:45; Stop 02/09/18 at 01:44 Sodium Chloride 1,000 ml @ 125 mls/hr Q8H IV Last administered on 02/08/18at 01 :40; Start 02/08/18 at 01:40; Stop 02/09/18 at 01:39 Metoclopramide HCl (Reglan) 10 mg QID PO Last administered on 02/08/18at 08:56; Start 02/08/18 at 09:00 Ondansetron HCl (Zofran Odt) 4 mg Q8HRS PO ; Start 02/08/18 at 14:00 Insulin Detemir (Levemir) 20 units BID SQ ; Start 02/08/18 at 21:00 Magnesium Oxide (Magnesium Oxide) 400 mg BID PO Last administered on 02/08/18at 08:56; Start 02/08/18 at 09:00 Potassium Chloride (Klor-Con) 20 meq BID PO Last administered on 02/08/18at 08: 56; Start 02/08/18 at 09:00 Famotidine (Pepcid) 20 mg BID PO Last administered on 02/08/18at 08:56; Start at 09:00 Insulin Aspart (NovoLOG) 0-9 UNITS TIDWMEALS SQ Last administered on 02/08/18at 09:01; Start 02/08/18 at 08:00 Dextrose 12.5 gm PRN Q15MIN PRN IV SEE COMMENTS; Start 02/08/18 at 08:00 Ceftriaxone Sodium 1 gm/ Sodium Chloride 50 ml @ 100 mls/hr Q24H IV ; Start at 09:00; Status UNV Ceftriaxone Sodium (Rocephin) 1 gm Q24H IVP ; Start 02/08/18 at 21:00 Active Scripts Active Zofran Odt (Ondansetron) 4 Mg Tab.rapdis 1 Tab SL Q8HRS Magnesium (Magnesium Oxide) 400 Mg Capsule 1 Cap PO BID 60 Days Levemir (Insulin Detemir) 100 Unit/1 Ml Vial 20 Unit SQ BID 30 Days resume tonight at bedtime last dose this morning Potassium Chloride 20 Meq Tablet.er 20 Meq PO BID 3 Days Zantac (Ranitidine Hcl) 150 Mg Tablet 1 Tab PO BID Reglan (Metoclopramide Hcl) 10 Mg Tablet 1 Tab PO QID Novolog Flexpen (Insulin Aspart) 100 Unit/1 Ml Insuln.pen 0-9 Unit SQ ACHS FOLLOW SUPPLEMENTAL SCALE GIVEN TO YOU Exam Vital Signs Vital Signs Date Time Temp Pulse Resp B/P (MAP) Pulse Ox O2 Delivery O2 Flow Rate FiO2 02/08/18 05:12 18 98 Room Air 02/08/18 05:09 98.1 96 129/89 (102) General Appearance: Alert, Oriented X3, No acute distress HEENT: Atraumatic, PERRLA, EOMI, Mucous membr. moist/pink, Other (Neck supple, full ROM, no JVD, no LAD) Respiratory: Clear to auscultation, Normal air movement Heart: Regular rate, Normal S1, Normal S2, No murmurs Abdominal: Normal bowel sounds, Soft, No tenderness, No hepatospenomegaly, No masses Extremities: No edema, Normal pulses, No tenderness/swelling, Other (Scattered scarring on arms/wrists due to frequent blood draws and IVDA) Skin: No rashes (Multiple tattooes) Neuro: Normal speech, Strength at 5/5 X4 ext, Normal tone, Sensation intact, Cranial nerves 3-12 NL, Reflexes 2+ Assessment/Plan Assessment/Plan 1. Intractable vomiting: Labs were ok. NO DKA. Pt advised that if she can eat/drink without vomiting we will not need additional bloodwork. However, if she cannot do that, she will need to have an arterial stick. Pt v/u and agrees. Pt given some saltines to eat. Continue PRN Zofran, will need Rx at d/ c. 2. Diabetes: Restarted home insulin w/ SSI. 3. Gastroparesis: Restarted Reglan. 4. UTI: Enterococcus, ID and sens pending. Cont Rocephin. COURSE Allergies Coded Allergies Type Severity Reaction Last Updated Verified acetaminophen Allergy Intermediate HIVES 01/18/18 Yes adhesive tape Allergy Intermediate 01/18/18 Yes Laboratory Tests Test 02/07/18 22:15 02/07/18 22:21 02/07/18 23:10 02/08/18 01:41 White Blood Count 6.6 x10^3/uL (4.0-11.0) Red Blood Count 4.19 x10^6/uL (3.50-5.40) Hemoglobin 11.9 g/dL (12.0-15.5) Hematocrit 35.8 % (36.0-47.0) Mean Corpuscular Volume 85 fL (79-100) Mean Corpuscular Hemoglobin 29 pg (25-35) Mean Corpuscular Hemoglobin Concent 33 g/dL (31-37) Red Cell Distribution Width 14.9 % (11.5-14.5) Platelet Count 297 x10^3/uL (140-400) Neutrophils (%) (Auto) 60 % (31-73) Lymphocytes (%) (Auto) 31 % (24-48) Monocytes (%) (Auto) 7 % (0-9) Eosinophils (%) (Auto) 1 % (0-3) Basophils (%) (Auto) 1 % (0-3) Neutrophils # (Auto) 4.0 x10^3uL (1.8-7.7) Lymphocytes # (Auto) 2.1 x10^3/uL (1.0-4.8) Monocytes # (Auto) 0.5 x10^3/uL (0.0-1.1) Eosinophils # (Auto) 0.1 x10^3/uL (0.0-0.7) Basophils # (Auto) 0.0 x10^3/uL (0.0-0.2) Sodium Level 133 mmol/L (136-145) Potassium Level 4.2 mmol/L (3.5-5.1) Chloride Level 93 mmol/L (98-107) Carbon Dioxide Level 23 mmol/L (21-32) Anion Gap 17 (6-14) Blood Urea Nitrogen 10 mg/dL (7-20) Creatinine 0.6 mg/dL (0.6-1.0) Estimated GFR (Cockcroft-Gault) 120.8 BUN/Creatinine Ratio 17 (6-20) Glucose Level 337 mg/dL (70-99) Calcium Level 9.2 mg/dL (8.5-10.1) Total Bilirubin 0.7 mg/dL (0.2-1.0) Aspartate Amino Transf (AST/SGOT) 22 U/L (15-37) Alanine Aminotransferase (ALT/SGPT) 20 U/L (14-59) Alkaline Phosphatase 82 U/L (46-116) Total Protein 7.0 g/dL (6.4-8.2) Albumin 3.7 g/dL (3.4-5.0) Albumin/Globulin Ratio 1.1 (1.0-1.7) Bedside Urine HCG, Qualitative hcg negative (Negative) Urine Collection Type Unknown Urine Color Yellow Urine Clarity Hazy Urine pH 7.0 Urine Specific [place] 1.015 Urine Protein Neg (NEG-TRACE) Urine Glucose (UA) >=1000 mg/dL (NEG) Urine Ketones (Stick) >=160 mg/dL (NEG) Urine Blood Neg (NEG) Urine Nitrite Neg (NEG) Urine Bilirubin Neg (NEG) Urine Urobilinogen Dipstick 0.2 mg/dL (0.2 mg/dL) Urine Leukocyte Esterase Small (NEG) Urine RBC 0 /HPF (0-2) Urine WBC >40 /HPF (0-4) Urine Squamous Epithelial Cells Few /LPF Urine Bacteria Few /HPF (0-FEW) Glucose (Fingerstick) 186 mg/dL (70-99) Test 02/08/18 07:37 Glucose (Fingerstick) 288 mg/dL (70-99) Current Medications Medications (Trade) Dose Ordered Sig/Chevy Route PRN Reason Start Time Stop Time Status Last Admin Dose Admin Ondansetron HCl (Zofran) 8 mg 1X ONCE IV 02/07/18 22:15 02/07/18 22:16 DC 02/07/18 22:09 Sodium Chloride 1,000 ml @ 1,000 mls/hr 1X ONCE IV 02/07/18 22:00 02/07/18 22:59 DC 02/07/18 22:09 Metoclopramide HCl (Reglan Vial) 10 mg 1X ONCE IV 02/07/18 22:15 02/07/18 22:16 DC 02/07/18 22:09 Morphine Sulfate (Morphine 4mg Syringe) 4 mg 1X ONCE IV 02/07/18 22:15 02/07/18 22:16 DC 02/07/18 22:16 Insulin Human Regular (NovoLIN R) 5 unit 1X ONCE IV 02/07/18 23:30 02/07/18 23:31 DC 02/07/18 23:24 Ceftriaxone Sodium 1 gm/ Sodium Chloride 50 ml @ 100 mls/hr 1X ONCE IV 02/08/18 00:30 02/08/18 01:49 DC 02/08/18 00:30 Ceftriaxone Sodium (Rocephin) 1 gm STK-MED ONCE IVP 02/08/18 00:48 02/08/18 00:49 DC Sodium Chloride 50 ml @ As Directed STK-MED ONCE .ROUTE 02/08/18 00:49 02/08/18 00:50 DC Morphine Sulfate (Morphine 4mg Syringe) 4 mg 1X ONCE IV 02/08/18 01:00 02/08/18 01:50 DC 02/08/18 01:02 Insulin Detemir (Levemir) 300 units STK-MED ONCE SQ 02/08/18 01:27 02/08/18 01:28 DC Ondansetron HCl (Zofran) 4 mg PRN Q4HRS PRN IV NAUSEA/VOMITING 02/08/18 01:45 02/09/18 01:44 Morphine Sulfate (Morphine 4mg Syringe) 2 mg PRN Q2HR PRN IV PAIN 02/08/18 01:45 02/09/18 01:44 02/08/18 04:40 Sodium Chloride 1,000 ml @ 125 mls/hr Q8H IV 02/08/18 01:40 02/09/18 01:39 02/08/18 01:40 Metoclopramide HCl (Reglan) 10 mg QID PO 02/08/18 09:00 02/08/18 08:56 Ondansetron HCl (Zofran Odt) 4 mg Q8HRS PO 02/08/18 14:00 Insulin Detemir (Levemir) 20 units BID SQ 02/08/18 21:00 Magnesium Oxide (Magnesium Oxide) 400 mg BID PO 02/08/18 09:00 02/08/18 08:56 Potassium Chloride (Klor-Con) 20 meq BID PO 02/08/18 09:00 02/08/18 08:56 Famotidine (Pepcid) 20 mg BID PO 02/08/18 09:00 02/08/18 08:56 Insulin Aspart (NovoLOG) 0-9 UNITS TIDWMEALS SQ 02/08/18 08:00 02/08/18 09:01 Dextrose 12.5 gm PRN Q15MIN PRN IV SEE COMMENTS 02/08/18 08:00 Ceftriaxone Sodium 1 gm/ Sodium Chloride 50 ml @ 100 mls/hr Q24H IV 02/08/18 09:00 UNV Ceftriaxone Sodium (Rocephin) 1 gm Q24H IVP 02/08/18 21:00 I & O 02/08/18 00:00 Intake Total 1000 ml Balance 1000 ml Vital Signs Date Time Temp Pulse Resp B/P (MAP) Pulse Ox O2 Delivery O2 Flow Rate FiO2 02/08/18 05:12 18 98 Room Air 02/08/18 05:09 98.1 96 129/89 (102) GABRIELLA CASTANEDA MD Feb 08, 2018 09:23
[2018-02-08 10:57] VITALS: BP 122/84
[2018-02-08] MEDS ORDERED: ONDANSETRON ODT 4 MG TAB.RAPDIS PO SCH (14:00)
[2018-02-08 14:49] VITALS: BP 115/82
[2018-02-08 15:02] LABS: CALCIUM 7.9 mg/dL (8.5-10.1); CREATININE 0.7 mg/dL (0.6-1.0); GFR 101.1; POTASSIUM 3.7 mmol/L (3.5-5.1)
[2018-02-08] MEDS ORDERED: ONDA4TAB10 SL (17:44)
--- NOTE | 2018-02-08 17:46 | DISCH ---
DISCHARGE INSTRUCTIONS-DC Condition on Discharge Condition on Discharge: Stable Problems: Activity after Discharge Activity Instructions for Disc: Activity as tolerated Diet after Discharge Diet after Discharge: Diabetic No Calorie Level Checks after Discharge Checks after discharge: Check blood sugar, ac/hs Contacting the DR. after DC Call your doctor for: If your condition worsens Follow-Up Follow up with: PCP in 1 week GABRIELLA CASTANEDA MD Feb 08, 2018 17:46
--- NOTE | 2018-02-08 17:48 | PDOC3 ---
Discharge Summary Discharge Summary Date of Admission Date of Admission: Feb 08, 2018 at 00:43 Admitting Diagnosis Diabetes UTI Intractable vomiting Date of Discharge: Feb 08, 2018 Discharge Diagnosis Diabetes UTI Intractable vomiting Laboratory Findings Laboratory Tests Test 02/07/18 22:15 02/07/18 22:21 02/07/18 23:10 02/08/18 01:41 White Blood Count 6.6 x10^3/uL (4.0-11.0) Red Blood Count 4.19 x10^6/uL (3.50-5.40) Hemoglobin 11.9 g/dL (12.0-15.5) Hematocrit 35.8 % (36.0-47.0) Mean Corpuscular Volume 85 fL (79-100) Mean Corpuscular Hemoglobin 29 pg (25-35) Mean Corpuscular Hemoglobin Concent 33 g/dL (31-37) Red Cell Distribution Width 14.9 % (11.5-14.5) Platelet Count 297 x10^3/uL (140-400) Neutrophils (%) (Auto) 60 % (31-73) Lymphocytes (%) (Auto) 31 % (24-48) Monocytes (%) (Auto) 7 % (0-9) Eosinophils (%) (Auto) 1 % (0-3) Basophils (%) (Auto) 1 % (0-3) Neutrophils # (Auto) 4.0 x10^3uL (1.8-7.7) Lymphocytes # (Auto) 2.1 x10^3/uL (1.0-4.8) Monocytes # (Auto) 0.5 x10^3/uL (0.0-1.1) Eosinophils # (Auto) 0.1 x10^3/uL (0.0-0.7) Basophils # (Auto) 0.0 x10^3/uL (0.0-0.2) Sodium Level 133 mmol/L (136-145) Potassium Level 4.2 mmol/L (3.5-5.1) Chloride Level 93 mmol/L (98-107) Carbon Dioxide Level 23 mmol/L (21-32) Anion Gap 17 (6-14) Blood Urea Nitrogen 10 mg/dL (7-20) Creatinine 0.6 mg/dL (0.6-1.0) Estimated GFR (Cockcroft-Gault) 120.8 BUN/Creatinine Ratio 17 (6-20) Glucose Level 337 mg/dL (70-99) Calcium Level 9.2 mg/dL (8.5-10.1) Total Bilirubin 0.7 mg/dL (0.2-1.0) Aspartate Amino Transf (AST/SGOT) 22 U/L (15-37) Alanine Aminotransferase (ALT/SGPT) 20 U/L (14-59) Alkaline Phosphatase 82 U/L (46-116) Total Protein 7.0 g/dL (6.4-8.2) Albumin 3.7 g/dL (3.4-5.0) Albumin/Globulin Ratio 1.1 (1.0-1.7) Bedside Urine HCG, Qualitative hcg negative (Negative) Urine Collection Type Unknown Urine Color Yellow Urine Clarity Hazy Urine pH 7.0 Urine Specific [place] 1.015 Urine Protein Neg (NEG-TRACE) Urine Glucose (UA) >=1000 mg/dL (NEG) Urine Ketones (Stick) >=160 mg/dL (NEG) Urine Blood Neg (NEG) Urine Nitrite Neg (NEG) Urine Bilirubin Neg (NEG) Urine Urobilinogen Dipstick 0.2 mg/dL (0.2 mg/dL) Urine Leukocyte Esterase Small (NEG) Urine RBC 0 /HPF (0-2) Urine WBC >40 /HPF (0-4) Urine Squamous Epithelial Cells Few /LPF Urine Bacteria Few /HPF (0-FEW) Glucose (Fingerstick) 186 mg/dL (70-99) Test 02/08/18 07:37 02/08/18 11:34 02/08/18 14:45 02/08/18 16:24 Glucose (Fingerstick) 288 mg/dL (70-99) 293 mg/dL (70-99) 297 mg/dL (70-99) Sodium Level 135 mmol/L (136-145) Potassium Level 3.7 mmol/L (3.5-5.1) Chloride Level 102 mmol/L (98-107) Carbon Dioxide Level 23 mmol/L (21-32) Anion Gap 10 (6-14) Blood Urea Nitrogen 8 mg/dL (7-20) Creatinine 0.7 mg/dL (0.6-1.0) Estimated GFR (Cockcroft-Gault) 101.1 Glucose Level 308 mg/dL (70-99) Calcium Level 7.9 mg/dL (8.5-10.1) Hospital Course Pt was admitted for vomiting. She was not in DKA. She did not vomit after admission. Pt did not have any Zofran at home. I gave her an Rx w/ 2 refills in hopes that she can keep herself out of the hospital. She was treated with Rocephin, will take Bactrim at home pending culture results on Urine from 02/05. Condition at Discharge: STable Home Meds Active Scripts Ondansetron (ZOFRAN ODT) 4 Mg Tab.rapdis, 1 TAB SL Q8HRS, #15 TAB Prov:ISRAEL WHITT MD 12/28/17 Magnesium Oxide (MAGNESIUM) 400 Mg Capsule, 1 CAP PO BID for 60 Days, #120 CAP 3 Refills Prov:BARRY MORELAND DO 11/19/17 Insulin Detemir (LEVEMIR) 100 Unit/1 Ml Vial, 20 UNIT SQ BID for diabetes for 30 Days, #1 VIAL resume tonight at bedtime last dose this morning Prov:BARRY MORELAND DO 11/19/17 Potassium Chloride (POTASSIUM CHLORIDE) 20 Meq Tablet.er, 20 MEQ PO BID for 3 Days, #6 TAB Prov:MICHELLE MELENDEZ DO 11/14/17 Ranitidine Hcl (ZANTAC) 150 Mg Tablet, 1 TAB PO BID, #60 TAB 3 Refills Prov:YELENA HENRY MD 11/04/17 Metoclopramide Hcl (REGLAN) 10 Mg Tablet, 1 TAB PO QID, #120 TAB 11 Refills Prov:BARRY MORELAND DO 10/04/17 Insulin Aspart (NOVOLOG FLEXPEN) 100 Unit/1 Ml Insuln.pen, 0-9 UNIT SQ achs for diabetes, #10 SYR 6 Refills FOLLOW SUPPLEMENTAL SCALE GIVEN TO YOU Prov:BARRY MORELAND DO 05/10/16 Inpatient Meds Current Medications Ondansetron HCl (Zofran) 8 mg 1X ONCE IV Last administered on 02/07/18at 22:09 ; Start 02/07/18 at 22:15; Stop 02/07/18 at 22:16; Status DC Sodium Chloride 1,000 ml @ 1,000 mls/hr 1X ONCE IV Last administered on at 22:09; Start 02/07/18 at 22:00; Stop 02/07/18 at 22:59; Status DC Metoclopramide HCl (Reglan Vial) 10 mg 1X ONCE IV Last administered on at 22:09; Start 02/07/18 at 22:15; Stop 02/07/18 at 22:16; Status DC Morphine Sulfate (Morphine 4mg Syringe) 4 mg 1X ONCE IV Last administered on at 22:16; Start 02/07/18 at 22:15; Stop 02/07/18 at 22:16; Status DC Insulin Human Regular (NovoLIN R) 5 unit 1X ONCE IV Last administered on at 23:24; Start 02/07/18 at 23:30; Stop 02/07/18 at 23:31; Status DC Ceftriaxone Sodium 1 gm/ Sodium Chloride 50 ml @ 100 mls/hr 1X ONCE IV Last administered on 02/08/18at 00:30; Start 02/08/18 at 00:30; Stop 02/08/18 at 01:49 ; Status DC Ceftriaxone Sodium (Rocephin) 1 gm STK-MED ONCE IVP ; Start 02/08/18 at 00:48; Stop 02/08/18 at 00:49; Status DC Sodium Chloride 50 ml @ As Directed STK-MED ONCE .ROUTE ; Start 02/08/18 at 00: 49; Stop 02/08/18 at 00:50; Status DC Morphine Sulfate (Morphine 4mg Syringe) 4 mg 1X ONCE IV Last administered on at 01:02; Start 02/08/18 at 01:00; Stop 02/08/18 at 01:50; Status DC Insulin Detemir (Levemir) 300 units STK-MED ONCE SQ ; Start 02/08/18 at 01:27; Stop 02/08/18 at 01:28; Status DC Ondansetron HCl (Zofran) 4 mg PRN Q4HRS PRN IV NAUSEA/VOMITING; Start 02/08/18 at 01:45; Stop 02/09/18 at 01:44 Morphine Sulfate (Morphine 4mg Syringe) 2 mg PRN Q2HR PRN IV PAIN Last administered on 02/08/18at 04:40; Start 02/08/18 at 01:45; Stop 02/09/18 at 01:44 Sodium Chloride 1,000 ml @ 125 mls/hr Q8H IV Last administered on 02/08/18at 01 :40; Start 02/08/18 at 01:40; Stop 02/09/18 at 01:39 Metoclopramide HCl (Reglan) 10 mg QID PO Last administered on 02/08/18at 17:24; Start 02/08/18 at 09:00 Ondansetron HCl (Zofran Odt) 4 mg Q8HRS PO ; Start 02/08/18 at 14:00 Insulin Detemir (Levemir) 20 units BID SQ ; Start 02/08/18 at 21:00 Magnesium Oxide (Magnesium Oxide) 400 mg BID PO Last administered on 02/08/18at 08:56; Start 02/08/18 at 09:00 Potassium Chloride (Klor-Con) 20 meq BID PO Last administered on 02/08/18at 08: 56; Start 02/08/18 at 09:00 Famotidine (Pepcid) 20 mg BID PO Last administered on 02/08/18at 08:56; Start at 09:00 Insulin Aspart (NovoLOG) 0-9 UNITS TIDWMEALS SQ Last administered on 02/08/18at 17:28; Start 02/08/18 at 08:00 Dextrose 12.5 gm PRN Q15MIN PRN IV SEE COMMENTS; Start 02/08/18 at 08:00 Ceftriaxone Sodium 1 gm/ Sodium Chloride 50 ml @ 100 mls/hr Q24H IV ; Start at 09:00; Status UNV Ceftriaxone Sodium (Rocephin) 1 gm Q24H IVP ; Start 02/08/18 at 21:00 Lactobacillus Rhamnosus (Culturelle) 1 cap BID PO ; Start 02/08/18 at 21:00 Active Scripts Active Zofran Odt (Ondansetron) 4 Mg Tab.rapdis 1 Tab SL Q8HRS Magnesium (Magnesium Oxide) 400 Mg Capsule 1 Cap PO BID 60 Days Levemir (Insulin Detemir) 100 Unit/1 Ml Vial 20 Unit SQ BID 30 Days resume tonight at bedtime last dose this morning Potassium Chloride 20 Meq Tablet.er 20 Meq PO BID 3 Days Zantac (Ranitidine Hcl) 150 Mg Tablet 1 Tab PO BID Reglan (Metoclopramide Hcl) 10 Mg Tablet 1 Tab PO QID Novolog Flexpen (Insulin Aspart) 100 Unit/1 Ml Insuln.pen 0-9 Unit SQ ACHS FOLLOW SUPPLEMENTAL SCALE GIVEN TO YOU Activity: as tolerated Diet: Consistent Carbohydrate Follow-up Plan PCP in 1 week GABRIELLA CASTANEDA MD Feb 08, 2018 17:48
[2018-02-08] MEDS ORDERED: cefTRIAXone IV Push 1 GM VIAL. IVP SCH (21:00)
[2018-02-08] MEDS ORDERED: INSULIN DETEMIR 300 UNITS/3 ML INSULN.PEN. SQ SCH (21:00)
[2018-02-08] MEDS ORDERED: LACTOBACILLUS RHAMNOSUS GG 1 CAPSULE. PO SCH (21:00)
== END 2018-02-08 18:25 | disposition home or self-care (01) | DRG 74 ==
LOC: ER 21:44 → 1 SOUTH 02-08 00:43
PROVIDERS: ADMIT Family Medicine; ATTEND Family Medicine
DX: E11.43 Type 2 diabetes mellitus with diabetic autonomic (poly)neuropathy (principal); E11.65 Type 2 diabetes mellitus with hyperglycemia; N39.0 Urinary tract infection, site not specified; K21.9 Gastro-esophageal reflux disease without esophagitis; F32.9 Major depressive disorder, single episode, unspecified; F17.210 Nicotine dependence, cigarettes, uncomplicated; F15.90 Other stimulant use, unspecified, uncomplicated; K31.84 Gastroparesis; Z79.4 Long term (current) use of insulin
CPT/HCPCS: 36415; 80048; 80053; 81001; 81025; 82947; 85025; 87086; J0696; J1815; J2270; J2405; J2765; J8597; J7030

== ENCOUNTER 2018-02-12 17:55 | Inpatient (IN) | payer SELFPAY ==
[~2018-02-12] VITALS: Ht 170.2 cm; Wt 57.6 kg
--- NOTE | 2018-02-12 18:45 | ED.ADGEN ---
Past History Past Medical History: Anemia, Depression, Diabetes, GERD, MRSA, UTI, Other Additional Past Medical Histor: pt reports several admissions for "high blood sugar" Past Surgical History: Other Smoking: Less than 1pk/day Alcohol Use: None Drug Use: Methamphetamine Adult General Chief Complaint Chief Complaint " I am vomiting again.. and got leg cramps...and of course my sugar was high... " HPI HPI Patient is a 27 year old female who presents with hx nausea, vomiting, abd. pain , leg cramps and hyperglycemia. Pt know to ED dept. for gastroparesis, poorly controlled DM, Non-compliance and polysubstance abuse. Pt. today presents with her mother. Pt. reports intractable nausea and vomiting and now associated leg cramps. Patient denies any travel or specific ill contacts. Patient currently follows with Dr. Collazo. Review of Systems Review of Systems Constitutional: Denies fever or chills [] Eyes: Denies change in visual acuity, redness, or eye pain [] HENT: Denies nasal congestion or sore throat [] Respiratory: Denies cough or shortness of breath [] Cardiovascular: No additional information not addressed in HPI [] GI: Complaints of abdominal pain, nausea, vomiting, b : Denies dysuria or hematuria [] Musculoskeletal: Denies back pain or joint pain []Leg cramps Integument: Denies rash or skin lesions [] Neurologic: Denies headache, focal weakness or sensory changes [] Endocrine: Denies polyuria or polydipsia [] All other systems were reviewed and found to be within normal limits, except as documented in this note. Family History Family History DM Current Medications Current Medications Current Medications Medications (Trade) Dose Ordered Sig/Chevy Start Time Stop Time Status Last Admin Dose Admin Ceftriaxone Sodium 1 gm/ Sodium Chloride 50 ml @ 100 mls/hr DAILY 02/13/18 09:00 UNV Ceftriaxone Sodium (Rocephin) 1 gm 1X ONCE 02/12/18 19:30 02/12/18 19:31 DC 02/12/18 19:28 1 GM Famotidine (Pepcid Vial) 20 mg 1X ONCE 02/12/18 19:00 02/12/18 19:01 DC 02/12/18 19:00 20 MG Insulin Human Regular 150 unit/ Sodium Chloride 151.5 ml @ 0 mls/hr 1X ONCE 02/12/18 20:00 02/12/18 20:01 UNV Lactated Ringer's 1,000 ml @ 200 mls/hr TID 02/12/18 21:00 UNV Ondansetron HCl (Zofran) 4 mg PRN Q4HRS PRN 02/12/18 20:00 02/13/18 19:59 UNV Sodium Chloride 1,000 ml @ 1,000 mls/hr Q1H 02/12/18 18:46 02/12/18 19:45 DC 02/12/18 18:46 1,000 MLS/HR Allergies Allergies Allergies Coded Allergies Type Severity Reaction Last Updated Verified acetaminophen Allergy Intermediate HIVES 01/18/18 Yes adhesive tape Allergy Intermediate 01/18/18 Yes Physical Exam Physical Exam Constitutional: Moderately acute distress, non-toxic appearance. [] HENT: Normocephalic, atraumatic, bilateral external ears normal, oropharynx dry , no oral exudates, nose normal. [] Eyes: PERRLA, EOMI, conjunctiva normal, no discharge. [] Neck: Normal range of motion, no tenderness, supple, no stridor. [] Cardiovascular:Tachycardia Heart rate regular rhythm, no murmur [] Lungs & Thorax: Bilateral breath sounds equal apexes with scattered wheezes on auscultation [] Abdomen: Bowel sounds decreased, soft, generalized tenderness, no masses, no pulsatile masses. [] Skin: Warm, dry, no erythema, no rash. [] Back: No tenderness, no CVA tenderness. [] Extremities: muscle tenderness, no cyanosis, no clubbing, ROM intact, no edema. [] No cording . Scar Lt shoulder Neurologic: Alert and oriented X 3, normal motor function, normal sensory function, no focal deficits noted. [] Psychologic: Affect anxious, judgement normal, mood depressed. Current Patient Data Vital Signs Vital Signs Date Time Temp Pulse Resp B/P (MAP) Pulse Ox O2 Delivery O2 Flow Rate FiO2 02/12/18 19:46 116 18 122/55 (77) 99 Room Air 02/12/18 18:08 98.1 Lab Results Laboratory Tests Test 02/12/18 18:23 02/12/18 18:46 White Blood Count 8.0 x10^3/uL (4.0-11.0) Red Blood Count 4.96 x10^6/uL (3.50-5.40) Hemoglobin 14.2 g/dL (12.0-15.5) Hematocrit 42.5 % (36.0-47.0) Mean Corpuscular Volume 86 fL (79-100) Mean Corpuscular Hemoglobin 29 pg (25-35) Mean Corpuscular Hemoglobin Concent 33 g/dL (31-37) Red Cell Distribution Width 15.8 % (11.5-14.5) H Platelet Count 398 x10^3/uL (140-400) Neutrophils (%) (Auto) 64 % (31-73) Lymphocytes (%) (Auto) 27 % (24-48) Monocytes (%) (Auto) 7 % (0-9) Eosinophils (%) (Auto) 1 % (0-3) Basophils (%) (Auto) 1 % (0-3) Neutrophils # (Auto) 5.1 x10^3uL (1.8-7.7) Lymphocytes # (Auto) 2.2 x10^3/uL (1.0-4.8) Monocytes # (Auto) 0.5 x10^3/uL (0.0-1.1) Eosinophils # (Auto) 0.1 x10^3/uL (0.0-0.7) Basophils # (Auto) 0.1 x10^3/uL (0.0-0.2) Urine Collection Type Unknown Urine Color Straw Urine Clarity Hazy Urine pH 5.0 Urine Specific [place] <=1.005 Urine Protein Neg (NEG-TRACE) Urine Glucose (UA) >=1000 mg/dL (NEG) Urine Ketones (Stick) >=160 mg/dL (NEG) Urine Blood Neg (NEG) Urine Nitrite Neg (NEG) Urine Bilirubin Neg (NEG) Urine Urobilinogen Dipstick 0.2 mg/dL (0.2 mg/dL) Urine Leukocyte Esterase Neg (NEG) Urine RBC Occ /HPF (0-2) Urine WBC 1-4 /HPF (0-4) Urine Squamous Epithelial Cells Many /LPF Urine Bacteria Few /HPF (0-FEW) Urine Mucus Slight /LPF Sodium Level 130 mmol/L (136-145) L Potassium Level 4.4 mmol/L (3.5-5.1) Chloride Level 89 mmol/L (98-107) L Carbon Dioxide Level 21 mmol/L (21-32) Anion Gap 20 (6-14) H Blood Urea Nitrogen 24 mg/dL (7-20) H Creatinine 1.0 mg/dL (0.6-1.0) Estimated GFR (Cockcroft-Gault) 67.0 Glucose Level 487 mg/dL (70-99) H Calcium Level 9.7 mg/dL (8.5-10.1) Total Bilirubin 0.7 mg/dL (0.2-1.0) Direct Bilirubin 0.1 mg/dL (0.0-0.2) Aspartate Amino Transferase (AST) 11 U/L (15-37) L Alanine Aminotransferase (ALT) 20 U/L (14-59) Alkaline Phosphatase 102 U/L (46-116) Troponin I Quantitative < 0.017 ng/mL (0-0.055) Total Protein 8.3 g/dL (6.4-8.2) H Albumin 4.2 g/dL (3.4-5.0) Amylase Level 34 U/L (25-115) Lipase 84 U/L (73-393) Urine Opiates Screen Neg (NEG) Urine Methadone Screen Neg (NEG) Urine Barbiturates Neg (NEG) Urine Phencyclidine Screen Neg (NEG) Urine Amphetamine/Methamphetamine Neg (NEG) Urine Benzodiazepines Screen Neg (NEG) Urine Cocaine Screen Neg (NEG) Urine Cannabinoids Screen Neg (NEG) Urine Ethyl Alcohol Neg (NEG) Blood pH 7.39 (7.35-7.45) Blood Gas PCO2 40 mmHg (35-45) Blood Gas PO2 31 mmHg (80-100) *L Blood Gas HCO3 24 mmol/L (22-26) Arterial Bld O2 Saturation (Calc) 59 % (92-99) L FiO2 21 % EKG EKG [] Radiology/Procedures Radiology/Procedures [] Course & Med Decision Making Course & Med Decision Making Pertinent Labs and Imaging studies reviewed. (See chart for details). Discussed presentation, testing and tx. plan with Dr. Pereira will admit to further tx and eval. [] Final Impression Final Impression 1. DM 2. Dehydration 3. Hyponatremia 4. Gastroparesis 5. Abdomen Pain[] 6. Nausea and Vomiting 7. UTI Problems: Dragon Disclaimer Dragon Disclaimer This electronic medical record was generated, in whole or in part, using a voice recognition dictation system. YELENA HENRY MD Feb 12, 2018 18:45
[2018-02-12] MEDS ORDERED: IV NORMAL SALINE 1,000ML 1,000 ML IV SCH (18:46)
--- NOTE | 2018-02-12 18:54 | EKG ---
[address] [address] Test Date: 2018-02-12 Test Time: 18:32:51 Pat Name: CHALO RAYMUNDO Department: Room: Gender: F Hr Intern: : 1990 Requested By: YELENA HENRY Order Number: [id number] Reading MD: Measurements Intervals [place] Rate: 132 P: 65 ND: 128 QRS: 68 QRSD: 84 T: 7 QT: 278 QTc: 415 Interpretive Statements SINUS TACHYCARDIA LEFT ATRIAL ABNORMALITY ABNORMAL ECG RI6.01 No previous ECG available for comparison
[2018-02-12 18:59] LABS: BASO # 0.1 x10^3/uL (0.0-0.2); BASO % 1 % (0-3); EOS # 0.1 x10^3/uL (0.0-0.7); EOS % 1 % (0-3); HEMATOCRIT 42.5 % (36.0-47.0); HEMOGLOBIN 14.2 g/dL (12.0-15.5); LYMPH # 2.2 x10^3/uL (1.0-4.8); LYMPH % 27 % (24-48); MEAN CORPUSCULAR HEMOGLOBIN 29 pg (25-35); MEAN CORPUSCULAR HGB CONC 33 g/dL (31-37); MEAN CORPUSCULAR VOLUME 86 fL (79-100); MONO # 0.5 x10^3/uL (0.0-1.1); MONO % 7 % (0-9); NEUT # 5.1 x10^3uL (1.8-7.7); NEUT % 64 % (31-73); PLATELET COUNT 398 x10^3/uL (140-400); RED BLOOD COUNT 4.96 x10^6/uL (3.50-5.40); RED CELL DISTRIBUTION WIDTH 15.8 % (11.5-14.5)
[2018-02-12] MEDS ORDERED: ONDANSETRON PF 4 MG/2 ML VIAL. IV ONE (19:00)
[2018-02-12] MEDS ORDERED: FAMOTIDINE 20 MG/2 ML VIAL IVP ONE (19:00)
[2018-02-12 19:10] LABS: BGAS PH 7.39 (7.35-7.45)
[2018-02-12 19:13] LABS: AMPHETAMINE/METHAMPHETAMINE NEG (NEG); BARBITURATES NEG (NEG); BENZODIAZEPINES NEG (NEG); CANNABINOIDS NEG (NEG); COCAINE NEG (NEG); METHADONE NEG (NEG); OPIATES NEG (NEG); PHENCYCLIDINE NEG (NEG)
[2018-02-12 19:14] LABS: ALBUMIN 4.2 g/dL (3.4-5.0); CALCIUM 9.7 mg/dL (8.5-10.1); DIRECT BILIRUBIN 0.1 mg/dL (0.0-0.2); POTASSIUM 4.4 mmol/L (3.5-5.1); TOTAL BILIRUBIN 0.7 mg/dL (0.2-1.0); TOTAL PROTEIN 8.3 g/dL (6.4-8.2)
[2018-02-12] MEDS ORDERED: cefTRIAXone IV Push 1 GM VIAL. IVP ONE (19:30)
[2018-02-12 19:40] LABS: BILIRUBIN,URINE NEG (NEG); CLARITY,URINE HAZY; COLOR,URINE STRAW; GLUCOSE,URINE >=1000 mg/dL (NEG)
[2018-02-12 19:41] LABS: BACTERIA,URINE FEW /HPF (0-FEW); NITRITE,URINE NEG (NEG); RBC,URINE OCC /HPF (0-2); SQUAMOUS EPITHELIAL CELL,UR MANY /LPF; UROBILINOGEN,URINE 0.2 mg/dL (0.2 mg/dL)
[2018-02-12] MEDS ORDERED: INSULIN REGULAR 150 UNIT in 0.9 % SODIUM CHLORIDE 150ML 150 ML IV ONE ×6 (20:00)
[2018-02-12] MEDS ORDERED: ONDANSETRON PF 4 MG/2 ML VIAL. IV PRN ×2 (20:00→21:45)
[2018-02-12] MEDS ORDERED: MORPHINE SULFATE 10 MG/ML SYRINGE. ONE (20:40)
[2018-02-12] MEDS ORDERED: MORPHINE SULFATE 10 MG/ML SYRINGE. SQ ONE (20:45)
[2018-02-12 21:00] VITALS: BP 93/52
[2018-02-12] MEDS ORDERED: IV RINGERS SOLUTION,LACTATED 1,000 ML IV SCH (21:00)
[2018-02-12] MEDS ORDERED: KETOROLAC 30 MG/ML VIAL. IV PRN (21:45)
[2018-02-12] MEDS ORDERED: IV NORMAL SALINE 1,000ML 1,000 ML IV ONE (21:45)
[2018-02-12 22:08] LABS: CREATININE 0.7 mg/dL (0.6-1.0); GFR 101.1; POTASSIUM 3.5 mmol/L (3.5-5.1)
[2018-02-12] MEDS ORDERED: DEXTROSE 50% 25 GM / 50ML DISP.SYRIN. IV PRN (22:15)
[2018-02-12] MEDS ORDERED: ONDANSETRON ODT 4 MG TAB.RAPDIS PO PRN (22:30)
[2018-02-12 23:11] VITALS: BP 114/79
[2018-02-12] MEDS: IV NORMAL SALINE 1,000ML 1,000 ML IV SCH (23:45)
[2018-02-13] MEDS: IV NORMAL SALINE 1,000ML 1,000 ML IV SCH (05:37)
[2018-02-13 05:40] VITALS: BP 109/66
[2018-02-13 06:09] LABS: BASO # 0.1 x10^3/uL (0.0-0.2); BASO % 1 % (0-3); EOS # 0.2 x10^3/uL (0.0-0.7); EOS % 3 % (0-3); HEMATOCRIT 28.2 % (36.0-47.0); HEMOGLOBIN 9.5 g/dL (12.0-15.5); LYMPH # 3.5 x10^3/uL (1.0-4.8); LYMPH % 57 % (24-48); MEAN CORPUSCULAR HEMOGLOBIN 29 pg (25-35); MEAN CORPUSCULAR HGB CONC 34 g/dL (31-37); MEAN CORPUSCULAR VOLUME 85 fL (79-100); MONO # 0.6 x10^3/uL (0.0-1.1); MONO % 9 % (0-9); NEUT # 1.8 x10^3uL (1.8-7.7); NEUT % 29 % (31-73); PLATELET COUNT 263 x10^3/uL (140-400); RED BLOOD COUNT 3.33 x10^6/uL (3.50-5.40); RED CELL DISTRIBUTION WIDTH 15.3 % (11.5-14.5); WHITE BLOOD COUNT 6.1 x10^3/uL (4.0-11.0)
[2018-02-13 06:20] LABS: ALBUMIN 2.6 g/dL (3.4-5.0); CALCIUM 7.9 mg/dL (8.5-10.1); CREATININE 0.5 mg/dL (0.6-1.0); GFR 149.1; POTASSIUM 3.8 mmol/L (3.5-5.1); TOTAL BILIRUBIN 0.2 mg/dL (0.2-1.0); TOTAL PROTEIN 5.2 g/dL (6.4-8.2)
[2018-02-13] MEDS ORDERED: INSULIN ASPART 300 UNITS/3 ML INSULN.PEN SQ SCH (07:30)
[2018-02-13 07:38] LABS: % ATYL 1 % (0-0); % BANDS 1 % (0-9); % BASOS 3 % (0-3); % EOS 4 % (0-5); % LYMPHS 53 % (24-48); % MONOS 2 % (0-10); % SEGS 36 % (35-66); PLT ESTIMATE ADEQUATE (ADEQUATE)
--- NOTE | 2018-02-13 08:10 | RAD ---
Indication: Abdominal pain, nausea and vomiting Technique: Acute abdominal series x-rays Comparison: Previous study from 02/02/2018 Findings: Heart is normal in size. Lungs are clear. No pneumothorax or pleural effusion. No evidence of free intraperitoneal air. Liver is mildly enlarged measuring 23 cm in craniocaudal dimension. No abnormally dilated bowel loops or air-fluid levels. Stool is seen in the colon. No abnormal calcific densities projecting over the kidneys or expected course of the ureters. Punctate calcific density projecting over the left L4 transverse process not seen before. Visualized bones within normal limits. Impression: 1. Diffuse large colonic stool burden, patient may be constipated. 2. Mild hepatomegaly. 3. Calcific density projecting over the L4 vertebrae left transverse process may represent a ureteral calculi or debris in the stool. If there is concern for ureteral calculi or obstructive uropathy, CT abdomen and pelvis without IV contrast may be of additional benefit.
[2018-02-13] MEDS ORDERED: METOCLOPRAMIDE 10 MG TABLET PO SCH (09:00)
[2018-02-13] MEDS ORDERED: cefTRIAXone IV Push 1 GM VIAL. IVP SCH (09:00)
[2018-02-13] MEDS ORDERED: INSULIN DETEMIR 300 UNITS/3 ML INSULN.PEN. SQ SCH (09:00)
[2018-02-13] MEDS ORDERED: FAMOTIDINE 20 MG TABLET PO SCH (09:00)
[2018-02-13] MEDS ORDERED: MAGNESIUM OXIDE 400 MG TABLET PO SCH (09:00)
[2018-02-13] MEDS ORDERED: LACTOBACILLUS RHAMNOSUS GG 1 CAPSULE. PO SCH (09:00)
[2018-02-13 10:09] VITALS: BP 113/74
--- NOTE | 2018-02-13 13:17 | SSS ---
ADMIT DATE: 02/13/2018 HISTORY OF PRESENT ILLNESS: The patient is a 27-year-old female patient who came to the Emergency Room complaining of recurrent bouts of nausea, vomiting, and leg cramps, also complained of abdominal pain. She is known to have type 1 diabetes that is poorly controlled, diabetic gastroparesis, noncompliance with polysubstance abuse. She was brought by her mother with reported intractable nausea and vomiting associated with leg cramps. The patient denies any travel or specific ill contact. She was evaluated in the Emergency Room and was found to have hyperglycemia with a blood sugar of 187. However, her pH was 7.39, pCO2 of 40, bicarbonate 24, and the patient was treated with IV fluid and by the time, she arrived to the floor, her blood sugar was only 157. She was continued on her NovoLog and Levemir insulin regimen and did well and as she remained stable with a blood sugar that is reasonably controlled, a decision was made to discharge her home to continue on her current regimen and to follow with her primary care physician. PAST MEDICAL HISTORY: Significant for poorly controlled type 1 diabetes, diabetic gastroparesis, diabetic ketoacidosis. She has also peripheral neuropathy and polysubstance abuse including methamphetamine. PAST SURGICAL HISTORY: Significant for Port-A-Cath placement and removal. Also, incision and drainage of left axillary abscess and multiple EGDs and gastric emptying study. FAMILY HISTORY: Unremarkable. SOCIAL HISTORY: She lives with her mother. She does not smoke or drink alcohol. She used to use crystal methamphetamine. ALLERGIES: She is allergic to ADHESIVE TAPE and ACETAMINOPHEN. MEDICATIONS: She is currently on following medications: She is on NovoLog insulin as per insulin sliding scale, detemir insulin 20 units subcutaneously twice a day, magnesium oxide 400 mg twice a day, metoclopramide 10 mg 4 times a day, ondansetron 4 mg every 8 hours, and ranitidine for Zantac 150 mg twice a day. PHYSICAL EXAMINATION: GENERAL: On arrival to the Emergency Room, she looked well and was clearly in no apparent respiratory distress, slightly pale, no jaundice, cyanosis, or thyromegaly. No jugular venous distension. No lower limb edema. VITAL SIGNS: Her heart rate was 102, blood pressure was 93/52, temperature was 98.4, respiratory rate 20, and oxygen saturation was 98% on room air. HEAD, EYES, EARS, NOSE, AND THROAT: Normocephalic, atraumatic. NECK: Supple. HEART: Showed normal first and second heart sounds with no gallop, rub, or murmur. CHEST: Clear to auscultation. No crepitation or rhonchi. ABDOMEN: Scaphoid, soft, nontender. No guarding or rigidity. No organomegaly. All hernial orifices intact. Bowel sounds normal. NEUROLOGIC: She is awake, alert, responding appropriately. All cranial nerves intact. EXTREMITIES: She moves extremities without difficulty. She ambulates without assistance or assistive devices. LABORATORY DATA: Showed a white cell count of 8000, hemoglobin 14, hematocrit 42, MCV 86, and platelet count of 398,000. Blood gases showed a pH of 7.39, pCO2 of 40, pO2 of 31, bicarbonate 24, oxygen saturation was 59% on room air. Her prothrombin time was 9.3, INR of 0.9, and aPTT was 22. Urinalysis showed the urine was straw colored, hazy with a pH of 5, specific gravity 1.005. The urine was negative for protein, large amount of glucose, large amount of ketones, negative for blood, nitrite, and leukocyte esterase. There was occasional rbc's, 1-4 wbc's, very few bacteria. Her urine toxicology screen was negative. Her acute abdomen series showed diffuse large colonic stool burden, mild hepatomegaly, calcific density projecting over the L4 vertebra. Left transverse process represents ureteral calculi or debris in the stool. The patient was basically admitted, continued on IV fluid, continued on her insulin regimen. She remained stable, has had no further abdominal pain, no further nausea or vomiting. She was tolerating her food without difficulty and a decision was made to discharge her home to continue with all her current medications. ANAYELI FOSS MD DR: JOSÉ/regina JOB#: [id number] / [id number]
== END 2018-02-13 12:27 | disposition home or self-care (01) | DRG 74 ==
LOC: ER 17:55 → 1 SOUTH 19:30 → ER 20:56
PROVIDERS: ADMIT Internal Medicine; ATTEND Internal Medicine
DX: E10.43 Type 1 diabetes mellitus with diabetic autonomic (poly)neuropathy (principal); E10.65 Type 1 diabetes mellitus with hyperglycemia; E87.1 Hypo-osmolality and hyponatremia; K31.84 Gastroparesis; F15.90 Other stimulant use, unspecified, uncomplicated; K21.9 Gastro-esophageal reflux disease without esophagitis; F32.9 Major depressive disorder, single episode, unspecified; E86.0 Dehydration; Z83.3 Family history of diabetes mellitus; Z91.19 Patient's noncompliance with other medical treatment and regimen; Z79.4 Long term (current) use of insulin; Z87.440 Personal history of urinary (tract) infections; Z86.14 Personal history of Methicillin resistant Staphylococcus aureus infection; Z88.8 Allergy status to other drugs, medicaments and biological substances; Z91.048 Other nonmedicinal substance allergy status
CPT/HCPCS: 36415; 74022; 80048; 80053; 80076; 80307; 81001; 82150; 82803; 82947; 83690; 84484; 85007; 85025; 85610; 85730; 93005; 96361; 96372; 96374; 96375; J0696; J1815; J2270; J2405; J8597; Q0162; S0028; 99285-25; G0479; J7030

== ENCOUNTER 2018-02-17 01:44 | Emergency (ER) | payer SELFPAY ==
[~2018-02-17] VITALS: Ht 170.2 cm; Wt 63.0 kg
[2018-02-17] MEDS ORDERED: LORazepam 2 MG/ML VIAL IV ONE (02:00)
[2018-02-17] MEDS ORDERED: IV NORMAL SALINE 1,000ML 1,000 ML IV ONE ×4 (02:00→05:00)
[2018-02-17 02:21] LABS: BASO % 0 % (0-3); BILIRUBIN,URINE NEG (NEG); CLARITY,URINE CLEAR; COLOR,URINE COLORLESS; EOS # 0.1 x10^3/uL (0.0-0.7); EOS % 2 % (0-3); GLUCOSE,URINE 500 mg/dL (NEG); HEMOGLOBIN 12.3 g/dL (12.0-15.5); LYMPH # 2.5 x10^3/uL (1.0-4.8); LYMPH % 43 % (24-48); MEAN CORPUSCULAR HEMOGLOBIN 29 pg (25-35); MEAN CORPUSCULAR HGB CONC 33 g/dL (31-37); MEAN CORPUSCULAR VOLUME 86 fL (79-100); MONO # 0.4 x10^3/uL (0.0-1.1); MONO % 7 % (0-9); NEUT # 2.7 x10^3uL (1.8-7.7); NEUT % 47 % (31-73); PLATELET COUNT 309 x10^3/uL (140-400); RED BLOOD COUNT 4.31 x10^6/uL (3.50-5.40); RED CELL DISTRIBUTION WIDTH 15.7 % (11.5-14.5); WHITE BLOOD COUNT 5.7 x10^3/uL (4.0-11.0)
[2018-02-17 02:22] LABS: BACTERIA,URINE FEW /HPF (0-FEW); NITRITE,URINE NEG (NEG); RBC,URINE 0 /HPF (0-2); SQUAMOUS EPITHELIAL CELL,UR MOD /LPF; UROBILINOGEN,URINE 0.2 mg/dL (0.2 mg/dL); WBC,URINE 0 /HPF (0-4)
[2018-02-17 02:27] LABS: BARBITURATES NEG (NEG); BENZODIAZEPINES NEG (NEG); CANNABINOIDS NEG (NEG); COCAINE NEG (NEG); METHADONE NEG (NEG); OPIATES NEG (NEG); PHENCYCLIDINE NEG (NEG)
[2018-02-17] MEDS ORDERED: KETOROLAC 15 MG/ML VIAL. ONE (02:28)
[2018-02-17 02:30] VITALS: BP 125/72
[2018-02-17 02:31] LABS: AMPHETAMINE/METHAMPHETAMINE NEG (NEG)
[2018-02-17 02:37] LABS: CALCIUM 8.9 mg/dL (8.5-10.1); CREATININE 0.9 mg/dL (0.6-1.0); GFR 75.7; POTASSIUM 4.2 mmol/L (3.5-5.1)
[2018-02-17] MEDS ORDERED: KETOROLAC 15 MG/ML VIAL. IV ONE (02:45)
[2018-02-17] MEDS ORDERED: 0.9 % SODIUM CHLORIDE 150ML 150 ML ONE (02:50)
[2018-02-17] MEDS ORDERED: INSULIN REGULAR 100 UNIT/ML 10ML VIAL. ONE (02:51)
[2018-02-17] MEDS ORDERED: POTASSIUM CHLORIDE 20 MEQ TABLET.ER. PO ONE (03:00)
[2018-02-17] MEDS ORDERED: INSULIN REGULAR 100 UNIT/ML 10ML VIAL. IV ONE (03:00)
[2018-02-17] MEDS ORDERED: INSULIN REGULAR 150 UNIT in 0.9 % SODIUM CHLORIDE 150ML 150 ML IV ONE (03:00)
[2018-02-17] MEDS ORDERED: HYOSCYAMINE 0.125 MG TAB.RAPDIS PO ONE (03:30)
--- NOTE | 2018-02-17 05:17 | PHYS DOC ---
Past History Past Medical History: Anemia, Depression, Diabetes, GERD, MRSA, UTI, Other Additional Past Medical Histor: pt reports several admissions for "high blood sugar" Past Surgical History: Other Smoking: Less than 1pk/day Alcohol Use: None Drug Use: Methamphetamine Adult General Chief Complaint Chief Complaint: ABDOMINAL PAIN HPI HPI 27-year-old female well known to our emergency medicine service for extensive history of methamphetamine abuse and chronic recurrent noncompliance with diabetic insulin therapy. Patient now presents to the emergency department reporting after blood glucose is out of control. She also states that she has cyclic vomiting syndrome and is having epigastric pain typical for her. No fevers chills sweats or shaking chills. He is not actively vomiting on arrival in the emergency department. Denies diarrhea. She states she has not been using methamphetamine recently and denies other drug use as well Review of Systems Review of Systems Constitutional: Denies fever or chills [] Eyes: Denies change in visual acuity, redness, or eye pain [] HENT: Denies nasal congestion or sore throat [] Respiratory: Denies cough or shortness of breath [] Cardiovascular: No additional information not addressed in HPI [] GI: Denies abdominal pain, nausea, vomiting, bloody stools or diarrhea [] : Denies dysuria or hematuria [] Musculoskeletal: Denies back pain or joint pain [] Integument: Denies rash or skin lesions [] Neurologic: Denies headache, focal weakness or sensory changes [] Endocrine: Denies polyuria or polydipsia [] All other systems were reviewed and found to be within normal limits, except as documented in this note. Current Medications Current Medications Current Medications Medications (Trade) Dose Ordered Sig/Chevy Start Time Stop Time Status Last Admin Dose Admin Hyoscyamine (Anaspaz) 0.125 mg 1X ONCE 02/17/18 03:30 02/17/18 03:31 DC 02/17/18 03:21 0.125 MG Insulin Human Regular (NovoLIN R) 100 unit STK-MED ONCE 02/17/18 02:51 02/17/18 02:52 DC Insulin Human Regular 150 unit/ Sodium Chloride 151.5 ml @ 6.06 mls/hr 1X ONCE 02/17/18 03:00 02/18/18 03:59 02/17/18 03:00 6.06 MLS/HR Ketorolac Tromethamine (Toradol) 15 mg 1X ONCE 02/17/18 02:45 02/17/18 02:46 DC 02/17/18 02:29 15 MG Lorazepam (Ativan) 1 mg 1X ONCE 02/17/18 02:00 02/17/18 02:21 DC 02/17/18 02:00 1 MG Potassium Chloride (Klor-Con) 40 meq 1X ONCE 02/17/18 03:00 02/17/18 03:01 DC 02/17/18 03:00 40 MEQ Sodium Chloride 1,000 ml @ 1,000 mls/hr 1X ONCE 02/17/18 05:00 02/17/18 05:59 UNV 02/17/18 04:56 1,000 MLS/HR Allergies Allergies Allergies Coded Allergies Type Severity Reaction Last Updated Verified acetaminophen Allergy Intermediate HIVES 01/18/18 Yes adhesive tape Allergy Intermediate 01/18/18 Yes Physical Exam Physical Exam Patient has the appearance of a chronic methamphetamine abuser. She has dry mucous membranes however she is alert communicative cooperative and appropriate. Supple neck clear lungs regular rate and rhythm with mild tachycardia benign abdomen no CVA tenderness and normal extremities with a nonfocal neurologic exam Constitutional: Well developed, well nourished, no acute distress, non-toxic appearance. [] HENT: Normocephalic, atraumatic, bilateral external ears normal, oropharynx moist, no oral exudates, nose normal. [] Eyes: PERRLA, EOMI, conjunctiva normal, no discharge. [] Neck: Normal range of motion, no tenderness, supple, no stridor. [] Cardiovascular:Heart rate regular rhythm, no murmur [] Lungs & Thorax: Bilateral breath sounds clear to auscultation [] Abdomen: Bowel sounds normal, soft, no tenderness, no masses, no pulsatile masses. [] Skin: Warm, dry, no erythema, no rash. [] Back: No tenderness, no CVA tenderness. [] Extremities: No tenderness, no cyanosis, no clubbing, ROM intact, no edema. [] Neurologic: Alert and oriented X 3, normal motor function, normal sensory function, no focal deficits noted. [] Psychologic: Affect normal, judgement normal, mood normal. [] Current Patient Data Vital Signs Vital Signs Date Time Temp Pulse Resp B/P (MAP) Pulse Ox O2 Delivery O2 Flow Rate FiO2 02/17/18 01:44 98.4 90 20 100 Room Air Lab Results Laboratory Tests Test 02/17/18 02:05 02/17/18 04:05 White Blood Count 5.7 x10^3/uL (4.0-11.0) Red Blood Count 4.31 x10^6/uL (3.50-5.40) Hemoglobin 12.3 g/dL (12.0-15.5) Hematocrit 37.0 % (36.0-47.0) Mean Corpuscular Volume 86 fL (79-100) Mean Corpuscular Hemoglobin 29 pg (25-35) Mean Corpuscular Hemoglobin Concent 33 g/dL (31-37) Red Cell Distribution Width 15.7 % (11.5-14.5) H Platelet Count 309 x10^3/uL (140-400) Neutrophils (%) (Auto) 47 % (31-73) Lymphocytes (%) (Auto) 43 % (24-48) Monocytes (%) (Auto) 7 % (0-9) Eosinophils (%) (Auto) 2 % (0-3) Basophils (%) (Auto) 0 % (0-3) Neutrophils # (Auto) 2.7 x10^3uL (1.8-7.7) Lymphocytes # (Auto) 2.5 x10^3/uL (1.0-4.8) Monocytes # (Auto) 0.4 x10^3/uL (0.0-1.1) Eosinophils # (Auto) 0.1 x10^3/uL (0.0-0.7) Basophils # (Auto) 0.0 x10^3/uL (0.0-0.2) Urine Collection Type Unknown Urine Color Colorless Urine Clarity Clear Urine pH 7.0 Urine Specific [place] 1.010 Urine Protein Neg (NEG-TRACE) Urine Glucose (UA) 500 mg/dL (NEG) Urine Ketones (Stick) 15 mg/dL (NEG) Urine Blood Neg (NEG) Urine Nitrite Neg (NEG) Urine Bilirubin Neg (NEG) Urine Urobilinogen Dipstick 0.2 mg/dL (0.2 mg/dL) Urine Leukocyte Esterase Neg (NEG) Urine RBC 0 /HPF (0-2) Urine WBC 0 /HPF (0-4) Urine Squamous Epithelial Cells Mod /LPF Urine Bacteria Few /HPF (0-FEW) Sodium Level 131 mmol/L (136-145) L Potassium Level 4.2 mmol/L (3.5-5.1) Chloride Level 92 mmol/L (98-107) L Carbon Dioxide Level 27 mmol/L (21-32) Anion Gap 12 (6-14) Blood Urea Nitrogen 21 mg/dL (7-20) H Creatinine 0.9 mg/dL (0.6-1.0) Estimated GFR (Cockcroft-Gault) 75.7 Glucose Level 696 mg/dL (70-99) *H Calcium Level 8.9 mg/dL (8.5-10.1) Urine Opiates Screen Neg (NEG) Urine Methadone Screen Neg (NEG) Urine Barbiturates Neg (NEG) Urine Phencyclidine Screen Neg (NEG) Urine Amphetamine/Methamphetamine Neg (NEG) Urine Benzodiazepines Screen Neg (NEG) Urine Cocaine Screen Neg (NEG) Urine Cannabinoids Screen Neg (NEG) Urine Ethyl Alcohol Neg (NEG) Glucose (Fingerstick) 301 mg/dL (70-99) H EKG EKG [] Radiology/Procedures Radiology/Procedures [] Course & Med Decision Making Course & Med Decision Making Pertinent Labs and Imaging studies reviewed. (See chart for details) Signs and symptoms consistent with dehydration secondary to significant hyperglycemia however patient has no acidosis. She's hemodynamically stable. Insulin bolus and drip administered as well as extensive IV hydration. Blood glucose improved dramatically to near 200 at which time insulin therapy was discontinued. Patient had received potassium supplementation initially. Vital signs are stable and she is clinically well-appearing. No further workup or treatment is indicated at this time. Patient has no evidence of the psychiatric emergency and was negative for methamphetamines on the remainder of the urine drug screen today. She is aware of the critical importance of insulin compliance and following a good diabetic diet. Patient agrees with outpatient follow-up with her primary care doctor today and strict return precautions given. And has no active vomiting while in the emergency department. [] Dragon Disclaimer Dragon Disclaimer This electronic medical record was generated, in whole or in part, using a voice recognition dictation system. Departure Departure: Impression: Primary Impression: Uncontrolled diabetes mellitus Additional Impressions: Hyperglycemia Dehydration Noncompliance with medication regimen Disposition: HOME, SELF-CARE Condition: IMPROVED Referrals: ESVIN ROLLINS (PCP) Patient Instructions: Dehydration, Adult, Hyperglycemia Additional Instructions: Your glucose was very uncontrolled today but this is been dramatically improved with IV fluids and insulin therapy. You do not have evidence of metabolic acidosis. Your dehydration has been addressed with multiple liters of IV fluids. It's critically important that you comply with a diabetic diet and take your insulin exactly as previously prescribed by your physician. Rest and drink plenty of fluids. Follow-up with your doctor today, and return immediately for new severe or worsening symptoms. Problem Qualifiers VANESSA ANGEL MD Feb 17, 2018 05:17
[2018-02-17] MEDS ORDERED: ONDA4TAB10 SL (20:51)
== END 2018-02-17 05:07 | disposition home or self-care (01) ==
LOC: ER 01:44
DX: E11.65 Type 2 diabetes mellitus with hyperglycemia (principal); E86.0 Dehydration; Z91.14 Patient's other noncompliance with medication regimen; K21.9 Gastro-esophageal reflux disease without esophagitis; F32.9 Major depressive disorder, single episode, unspecified; F17.200 Nicotine dependence, unspecified, uncomplicated; F15.10 Other stimulant abuse, uncomplicated; Z86.14 Personal history of Methicillin resistant Staphylococcus aureus infection; Z87.440 Personal history of urinary (tract) infections; Z86.2 Personal history of diseases of the blood and blood-forming organs and certain disorders involving the immune mechanism; Z88.8 Allergy status to other drugs, medicaments and biological substances; Z88.6 Allergy status to analgesic agent
CPT/HCPCS: 36415; 80048; 80307; 81001; 82947; 85025; 96361; 96365; 96366; 96375; 96376; 99285; J1815; J1885; J2060; G0479; J7030

== ENCOUNTER 2018-02-17 16:49 | Emergency (ER) | payer SELFPAY ==
[2018-02-17] MEDS ORDERED: IV NORMAL SALINE 1,000ML 1,000 ML IV SCH (17:26)
[2018-02-17] MEDS ORDERED: HALOPERIDOL LACT 5 MG/ML VIAL. IVP ONE (17:30)
[2018-02-17] MEDS ORDERED: ONDANSETRON PF 4 MG/2 ML VIAL. IV ONE (17:45)
--- NOTE | 2018-02-17 17:53 | PHYS DOC ---
Past History Past Medical History: Anemia, Depression, Diabetes, GERD, MRSA, UTI, Other Additional Past Medical Histor: pt reports several admissions for "high blood sugar" Past Surgical History: Other Smoking: Less than 1pk/day Alcohol Use: None Drug Use: Methamphetamine Adult General Chief Complaint Chief Complaint: NAUSEA/VOMITING/DIARRHEA HPI HPI Patient is a 27-year-old female who presents ambulatory to the ED with the complaint of nausea and vomiting all day today and elevated blood sugar. Patient was here in the ER early this morning with the same complaint, she had IV fluids, IV insulin, and antiemetics, she improved and her blood sugar came down and was able to be discharged. The patient states that she is moving and has not been able to locate her oral Zofran today so she has not taken anything. She has had elevated blood sugar, nausea and vomiting today. Review of Systems Review of Systems Constitutional: Denies fever or chills [] Respiratory: Denies cough or shortness of breath [] GI: As in history of present illness Neurologic: She has a headache Endocrine: Blood sugar elevated all day today Current Medications Current Medications Current Medications Medications (Trade) Dose Ordered Sig/Chevy Start Time Stop Time Status Last Admin Dose Admin Haloperidol Lactate (Haldol) 1.25 mg 1X ONCE 02/17/18 17:30 02/17/18 17:32 DC Ondansetron HCl (Zofran) 4 mg 1X ONCE 02/17/18 17:45 02/17/18 17:46 DC Sodium Chloride 1,000 ml @ 1,000 mls/hr Q1H 02/17/18 17:26 02/17/18 18:25 Allergies Allergies Allergies Coded Allergies Type Severity Reaction Last Updated Verified acetaminophen Allergy Intermediate HIVES 01/18/18 Yes adhesive tape Allergy Intermediate 01/18/18 Yes Physical Exam Physical Exam Constitutional: Thin female, alert, warm and dry, no acute distress, not vomiting actively when I saw her HENT: Normocephalic, atraumatic, bilateral external ears normal, nose normal. [ ] Eyes: conjunctiva normal, no discharge. [] Neck: Normal range of motion, no stridor. [] Cardiovascular:Heart rate regular rhythm, no murmur [] Lungs & Thorax: Bilateral breath sounds clear to auscultation [] Abdomen: Bowel sounds normal, soft, nontender to light palpation, no rebound or guarding. Skin: Warm, dry, no erythema, no rash. [] Extremities: No tenderness, no cyanosis, no clubbing, ROM intact, no edema. [] Neurologic: Alert and oriented X 3, normal motor function, no focal deficits noted. [] EKG EKG [] Radiology/Procedures Radiology/Procedures [] Course & Med Decision Making Course & Med Decision Making Pertinent Labs and Imaging studies reviewed. (See chart for details) 27-year-old female with type 1 diabetes well known to this facility who presents with nausea, vomiting, abdominal pain, and elevated blood sugar, which is a frequent problem for her. The patient is nontoxic in appearance and states that her episode is pretty much the same as her usual. I have seen this patient before and has tried different solutions for her symptoms, and in the past, IV Haldol has worked well. I recommended that today to the patient who stated "Haldol doesn't work for me, it just makes me go to sleep but when I wake up and still nauseated." Patient states that she had Haldol when she was here this morning. I reviewed her chart and reassured her that in fact she was not given Haldol this morning, but patient continues to decline Haldol and states that she would rather have IV Zofran. We will give her some IV fluids and check some labs. I am checking out the patient at change of shift to Dr. Emery who will check on her labs and make further treatment decisions. NASEEM Tate attending note Dr. Valdo Emery Care assumed by me at 1800. Patient stable and well-appearing. She is not acidotic and vital signs are unremarkable after hydration. Blood glucose improved to approximately 250 after insulin bolus and drip. No further workup or treatment is indicated at this time. Patient agrees with outpatient follow- up. Strict return precautions will be given. [] Dragon Disclaimer Dragon Disclaimer This electronic medical record was generated, in whole or in part, using a voice recognition dictation system. Departure Departure: Impression: Primary Impression: Dehydration Additional Impressions: Noncompliance with medication regimen Uncontrolled diabetes mellitus Hyperglycemia Nausea and vomiting Disposition: HOME, SELF-CARE Condition: IMPROVED Referrals: ESVIN ROLLINS (PCP) Additional Instructions: Your elevated blood glucose has been corrected with insulin therapy. Rest and drink plenty of fluids. Use Zofran as needed for nausea. Adhere to an appropriate diabetic diet. It's critically important that you use your insulin exactly as prescribed. Follow-up with your doctor tomorrow. Scripts Ondansetron (ZOFRAN ODT) 4 Mg Tab.rapdis 1 TAB SL Q4HRS, #15 TAB Prov: VALDO EMERY MD 02/17/18 Problem Qualifiers HANNAH ANTUNEZ MD Feb 17, 2018 17:53 VALDO EMERY MD Feb 17, 2018 20:51
[2018-02-17 18:00] LABS: BASO # 0.1 x10^3/uL (0.0-0.2); BASO % 1 % (0-3); EOS # 0.1 x10^3/uL (0.0-0.7); EOS % 1 % (0-3); HEMATOCRIT 36.7 % (36.0-47.0); LYMPH # 1.7 x10^3/uL (1.0-4.8); LYMPH % 26 % (24-48); MEAN CORPUSCULAR HEMOGLOBIN 29 pg (25-35); MEAN CORPUSCULAR HGB CONC 33 g/dL (31-37); MEAN CORPUSCULAR VOLUME 87 fL (79-100); MONO # 0.5 x10^3/uL (0.0-1.1); MONO % 8 % (0-9); NEUT # 4.1 x10^3uL (1.8-7.7); NEUT % 64 % (31-73); PLATELET COUNT 283 x10^3/uL (140-400); RED BLOOD COUNT 4.22 x10^6/uL (3.50-5.40); RED CELL DISTRIBUTION WIDTH 15.8 % (11.5-14.5); WHITE BLOOD COUNT 6.5 x10^3/uL (4.0-11.0)
[2018-02-17 18:18] LABS: ALBUMIN 4.3 g/dL (3.4-5.0); ALBUMIN/GLOBULIN RATIO 1.2 (1.0-1.7); CALCIUM 9.4 mg/dL (8.5-10.1); POTASSIUM 5.2 mmol/L (3.5-5.1); TOTAL BILIRUBIN 0.6 mg/dL (0.2-1.0)
[2018-02-17] MEDS ORDERED: INSULIN REGULAR 150 UNIT in 0.9 % SODIUM CHLORIDE 150ML 150 ML IV ONE (18:30)
[2018-02-17] MEDS ORDERED: INSULIN REGULAR 100 UNIT/ML 10ML VIAL. IV ONE (18:30)
[2018-02-17] MEDS ORDERED: KETOROLAC 15 MG/ML VIAL. IV ONE (18:30)
[2018-02-17] MEDS ORDERED: 0.9 % SODIUM CHLORIDE 150ML 150 ML ONE (18:54)
[2018-02-17] MEDS ORDERED: IV NORMAL SALINE 1,000ML 1,000 ML IV ONE ×2 (19:45→20:00)
[2018-02-17 20:27] VITALS: BP 122/64
[2018-02-17] MEDS ORDERED: ONDA4TAB10 SL (20:51)
[2018-02-17] MEDS ORDERED: ONDANSETRON 4MG ODT 4TABLET STARTPACK. PO ONE (20:58)
== END 2018-02-17 21:00 | disposition home or self-care (01) ==
LOC: ER 16:49
DX: E86.0 Dehydration (principal); E11.65 Type 2 diabetes mellitus with hyperglycemia; Z91.14 Patient's other noncompliance with medication regimen; F32.9 Major depressive disorder, single episode, unspecified; F17.200 Nicotine dependence, unspecified, uncomplicated; F15.10 Other stimulant abuse, uncomplicated; K21.9 Gastro-esophageal reflux disease without esophagitis; Z87.440 Personal history of urinary (tract) infections; Z86.2 Personal history of diseases of the blood and blood-forming organs and certain disorders involving the immune mechanism; Z86.14 Personal history of Methicillin resistant Staphylococcus aureus infection; Z88.6 Allergy status to analgesic agent; Z88.8 Allergy status to other drugs, medicaments and biological substances
CPT/HCPCS: 36415; 80053; 82947; 85025; 96361; 96365; 96375; 96376; 99285; J1815; J1885; J2405; J7030

== ENCOUNTER 2018-02-18 12:57 | Emergency (ER) | payer SELFPAY ==
[2018-02-18] MEDS ORDERED: IV NORMAL SALINE 1,000ML 1,000 ML IV SCH (13:13)
[2018-02-18] MEDS ORDERED: ONDANSETRON PF 4 MG/2 ML VIAL. IV ONE (13:30)
[2018-02-18] MEDS ORDERED: INSULIN REGULAR 100 UNIT/ML 10ML VIAL. IV ONE (13:30)
[2018-02-18 13:37] LABS: BASO # 0.1 x10^3/uL (0.0-0.2); BASO % 1 % (0-3); EOS # 0.1 x10^3/uL (0.0-0.7); EOS % 2 % (0-3); HEMATOCRIT 36.2 % (36.0-47.0); HEMOGLOBIN 12.1 g/dL (12.0-15.5); LYMPH # 1.8 x10^3/uL (1.0-4.8); LYMPH % 22 % (24-48); MEAN CORPUSCULAR HEMOGLOBIN 29 pg (25-35); MEAN CORPUSCULAR HGB CONC 34 g/dL (31-37); MEAN CORPUSCULAR VOLUME 85 fL (79-100); MONO # 0.5 x10^3/uL (0.0-1.1); MONO % 7 % (0-9); NEUT # 5.6 x10^3uL (1.8-7.7); NEUT % 69 % (31-73); PLATELET COUNT 313 x10^3/uL (140-400); RED BLOOD COUNT 4.24 x10^6/uL (3.50-5.40); RED CELL DISTRIBUTION WIDTH 15.5 % (11.5-14.5); WHITE BLOOD COUNT 8.1 x10^3/uL (4.0-11.0)
[2018-02-18 13:48] LABS: ALBUMIN/GLOBULIN RATIO 1.1 (1.0-1.7); CALCIUM 9.5 mg/dL (8.5-10.1); CREATININE 0.7 mg/dL (0.6-1.0); GFR 101.1; POTASSIUM 4.7 mmol/L (3.5-5.1); TOTAL BILIRUBIN 0.4 mg/dL (0.2-1.0); TOTAL PROTEIN 7.8 g/dL (6.4-8.2)
[2018-02-18 14:00] LABS: AMPHETAMINE/METHAMPHETAMINE NEG (NEG); BARBITURATES NEG (NEG); BENZODIAZEPINES NEG (NEG); CANNABINOIDS NEG (NEG); COCAINE NEG (NEG); METHADONE NEG (NEG); OPIATES NEG (NEG); PHENCYCLIDINE NEG (NEG)
[2018-02-18 14:01] LABS: BILIRUBIN,URINE NEG (NEG); CLARITY,URINE CLEAR; COLOR,URINE STRAW; GLUCOSE,URINE 500 mg/dL (NEG)
[2018-02-18 14:02] LABS: BACTERIA,URINE 0 /HPF (0-FEW); NITRITE,URINE NEG (NEG); RBC,URINE 0 /HPF (0-2); SQUAMOUS EPITHELIAL CELL,UR OCC /LPF; UROBILINOGEN,URINE 0.2 mg/dL (0.2 mg/dL); WBC,URINE RARE /HPF (0-4)
--- NOTE | 2018-02-18 14:27 | PHYS DOC ---
Past History Past Medical History: Diabetes, UTI, Other Additional Past Medical Histor: pt reports several admissions for "high blood sugar" Past Surgical History: Other Smoking: Less than 1pk/day Alcohol Use: None Drug Use: Methamphetamine Adult General Chief Complaint Chief Complaint: GENERALIZED BODY ACHES HPI HPI 27-year-old female patient with history of type 1 diabetes and frequent emergency room visits and hospitalization with DKA and noncompliance with treatment plan and methamphetamine abuse complaining of hurting all over since last night. Patient states she had one episode of vomiting today and ran out of her Levemir because of lack of insurance and supposed to have insurance tomorrow. Patient states she was seen in this emergency room yesterday twice and had blood sugar of around 700 that improved with treatment and was sent home without any prescription. Patient denies and using illegal drugs. Review of Systems Review of Systems Constitutional: Denies fever or chills [] Eyes: Denies change in visual acuity, redness, or eye pain [] HENT: Denies nasal congestion or sore throat [] Respiratory: Denies cough or shortness of breath [] Cardiovascular: No additional information not addressed in HPI [] GI: Denies abdominal pain, bloody stools or diarrhea, nausea and vomiting [] : Denies dysuria or hematuria [] Musculoskeletal: Denies back pain or joint pain, reports myalgia [] Integument: Denies rash or skin lesions [] Neurologic: Denies headache, focal weakness or sensory changes [] Endocrine: Denies polyuria or polydipsia [] All other systems were reviewed and found to be within normal limits, except as documented in this note. Current Medications Current Medications Current Medications Medications (Trade) Dose Ordered Sig/Chevy Start Time Stop Time Status Last Admin Dose Admin Acetaminophen/ Hydrocodone Bitart (Lortab 5/325) 1 tab 1X ONCE 02/18/18 14:30 02/18/18 14:31 Insulin Human Regular (NovoLIN R) 10 unit 1X ONCE 02/18/18 13:30 02/18/18 13:31 DC 02/18/18 13:30 10 UNIT Ondansetron HCl (Zofran) 4 mg 1X ONCE 02/18/18 13:30 02/18/18 13:31 DC 02/18/18 13:27 4 MG Sodium Chloride 1,000 ml @ 1,000 mls/hr Q1H 02/18/18 13:13 02/18/18 14:12 DC 02/18/18 13:27 1,000 MLS/HR Allergies Allergies Allergies Coded Allergies Type Severity Reaction Last Updated Verified acetaminophen Allergy Intermediate HIVES 01/18/18 Yes adhesive tape Allergy Intermediate 01/18/18 Yes Physical Exam Physical Exam Constitutional: Moderate distress, non-toxic appearance. [] HENT: Normocephalic, atraumatic, oropharynx dry, no oral exudates Eyes: PERRLA, EOMI, conjunctiva normal, no discharge. [] Neck: Normal range of motion, no tenderness, supple, no stridor. [] Cardiovascular: Tachycardia, no murmur [] Lungs & Thorax: Bilateral breath sounds clear to auscultation [] Abdomen: Bowel sounds normal, soft, no tenderness, no masses, no pulsatile masses. [] Skin: Warm, dry, no erythema, no rash. [] Back: No tenderness, no CVA tenderness. [] Extremities: No tenderness, no cyanosis, no clubbing, ROM intact, no edema. [] Neurologic: Alert and oriented X 3, normal motor function, normal sensory function, no focal deficits noted. [] Psychologic: Anxious, judgement normal, mood normal. [] Current Patient Data Lab Results Laboratory Tests Test 02/18/18 12:19 02/18/18 13:12 02/18/18 13:17 02/18/18 14:15 Urine Collection Type Unknown Urine Color Straw Urine Clarity Clear Urine pH 6.0 Urine Specific [place] 1.010 Urine Protein Neg (NEG-TRACE) Urine Glucose (UA) 500 mg/dL (NEG) Urine Ketones (Stick) 40 mg/dL (NEG) Urine Blood Neg (NEG) Urine Nitrite Neg (NEG) Urine Bilirubin Neg (NEG) Urine Urobilinogen Dipstick 0.2 mg/dL (0.2 mg/dL) Urine Leukocyte Esterase Neg (NEG) Urine RBC 0 /HPF (0-2) Urine WBC Rare /HPF (0-4) Urine Squamous Epithelial Cells Occ /LPF Urine Bacteria 0 /HPF (0-FEW) Urine Opiates Screen Neg (NEG) Urine Methadone Screen Neg (NEG) Urine Barbiturates Neg (NEG) Urine Phencyclidine Screen Neg (NEG) Urine Amphetamine/Methamphetamine Neg (NEG) Urine Benzodiazepines Screen Neg (NEG) Urine Cocaine Screen Neg (NEG) Urine Cannabinoids Screen Neg (NEG) Urine Ethyl Alcohol Neg (NEG) Glucose (Fingerstick) 465 mg/dL (70-99) H 284 mg/dL (70-99) H White Blood Count 8.1 x10^3/uL (4.0-11.0) Red Blood Count 4.24 x10^6/uL (3.50-5.40) Hemoglobin 12.1 g/dL (12.0-15.5) Hematocrit 36.2 % (36.0-47.0) Mean Corpuscular Volume 85 fL (79-100) Mean Corpuscular Hemoglobin 29 pg (25-35) Mean Corpuscular Hemoglobin Concent 34 g/dL (31-37) Red Cell Distribution Width 15.5 % (11.5-14.5) H Platelet Count 313 x10^3/uL (140-400) Neutrophils (%) (Auto) 69 % (31-73) Lymphocytes (%) (Auto) 22 % (24-48) L Monocytes (%) (Auto) 7 % (0-9) Eosinophils (%) (Auto) 2 % (0-3) Basophils (%) (Auto) 1 % (0-3) Neutrophils # (Auto) 5.6 x10^3uL (1.8-7.7) Lymphocytes # (Auto) 1.8 x10^3/uL (1.0-4.8) Monocytes # (Auto) 0.5 x10^3/uL (0.0-1.1) Eosinophils # (Auto) 0.1 x10^3/uL (0.0-0.7) Basophils # (Auto) 0.1 x10^3/uL (0.0-0.2) Sodium Level 131 mmol/L (136-145) L Potassium Level 4.7 mmol/L (3.5-5.1) Chloride Level 94 mmol/L (98-107) L Carbon Dioxide Level 26 mmol/L (21-32) Anion Gap 11 (6-14) Blood Urea Nitrogen 15 mg/dL (7-20) Creatinine 0.7 mg/dL (0.6-1.0) Estimated GFR (Cockcroft-Gault) 101.1 BUN/Creatinine Ratio 21 (6-20) H Glucose Level 464 mg/dL (70-99) H Calcium Level 9.5 mg/dL (8.5-10.1) Total Bilirubin 0.4 mg/dL (0.2-1.0) Aspartate Amino Transferase (AST) 15 U/L (15-37) Alanine Aminotransferase (ALT) 22 U/L (14-59) Alkaline Phosphatase 107 U/L (46-116) Total Protein 7.8 g/dL (6.4-8.2) Albumin 4.0 g/dL (3.4-5.0) Albumin/Globulin Ratio 1.1 (1.0-1.7) Lipase 116 U/L (73-393) EKG EKG [] Radiology/Procedures Radiology/Procedures [] Course & Med Decision Making Course & Med Decision Making Pertinent Labs reviewed. (See chart for details) Evaluation of patient in ER showed 27-year-old female patient with history of type 1 diabetes and frequent emergency room visits presented for the third time in the last 24 hours to emergency room because of high blood sugar and nausea and hurting all over. She had blood sugar more than 400 without sign of DKA and treated with IV fluid and insulin and Zofran and [place] and felt better. Blood sugar gradually decreased to 280s. She tolerated oral intake. Plan discharge patient home with diagnosis of uncontrolled diabetes mellitus. 1 pen of Levemir was provided for patient and patient instructed to follow-up with her primary care physician tomorrow. [] Dragon Disclaimer Dragon Disclaimer This electronic medical record was generated, in whole or in part, using a voice recognition dictation system. Departure Departure: Impression: Primary Impression: Nausea and vomiting Additional Impressions: Myalgia Uncontrolled diabetes mellitus Disposition: 01 HOME, SELF-CARE (At 1454) Condition: IMPROVED Referrals: ESVIN ROLILNS (PCP) Patient Instructions: Hyperglycemia, Nausea and Vomiting Additional Instructions: Drink plenty of liquids Follow-up with your primary care physician in 2 days Return to ER if not getting better Problem Qualifiers ISRAEL WHITT MD Feb 18, 2018 14:27
[2018-02-18] MEDS ORDERED: HYDROcodone/APAP 5/325MG 1 TAB TABLET PO ONE (14:30)
[2018-02-18 14:35] VITALS: BP 144/98
[2018-02-18] MEDS ORDERED: INSULIN DETEMIR 300 UNITS/3 ML INSULN.PEN. SQ ONE (15:15)
== END 2018-02-18 15:09 | disposition home or self-care (01) ==
LOC: ER 12:57
DX: R11.2 Nausea with vomiting, unspecified (principal); M79.1 Myalgia; E11.9 Type 2 diabetes mellitus without complications; F17.200 Nicotine dependence, unspecified, uncomplicated; F15.10 Other stimulant abuse, uncomplicated; Z87.440 Personal history of urinary (tract) infections; Z88.6 Allergy status to analgesic agent; Z88.8 Allergy status to other drugs, medicaments and biological substances
CPT/HCPCS: 36415; 80053; 80307; 81001; 82947; 83690; 85025; 96361; 96374; 96375; 99284; J1815; J2405; G0479; J7030

== ENCOUNTER 2018-10-10 17:18 | Inpatient (IN) | payer SELFPAY ==
[~2018-10-10] VITALS: Ht 170.2 cm; Wt 61.0 kg
[~2018-10-10 17:18] MED LIST changes: +RANI150T21 PO; -RANI150T6 PO
[2018-10-10] MEDS ORDERED: IV NORMAL SALINE 1,000ML 1,000 ML IV SCH (17:41)
--- NOTE | 2018-10-10 17:52 | PHYS DOC ---
Past History Past Medical History: Diabetes, UTI, Other Additional Past Medical Histor: pt reports several admissions for "high blood sugar" Past Surgical History: Other Smoking: Less than 1pk/day Alcohol Use: None Drug Use: Methamphetamine Adult General Chief Complaint Chief Complaint: NAUSEA/VOMITING/DIARRHEA HPI HPI Patient is a 28-year-old female who presents with complaint of abdominal pain with nausea and vomiting for the last 2-1/2 weeks. Patient states that she has been admitted to [facility] 2 times during that period of time. She states that each time she was discharged home while she was still vomiting. She states that she has been told that this is gastroparesis due to her diabetes but she does not think that it is caused by gastroparesis. Patient also indicates that she has been dizzy for the last 2 weeks describing it as everything spinning whenever she gets up. She states that when the dizziness gets worse her nausea gets worse. She denies any lateralizing weakness or numbness. She has had no speech abnormalities. Patient states that she has pain in her abdomen that she rates at a 7 out of 10. Review of Systems Review of Systems Constitutional: Denies fever or chills [] Respiratory: Denies cough or shortness of breath [] Cardiovascular: No additional information not addressed in HPI [] GI: Complains of generalized abdominal pain with nausea and vomiting. Denies diarrhea.[] Integument: Denies rash or skin lesions [] Neurologic: Complains of dizziness with generalized weakness. No focal weakness or paresthesia.[] All other systems were reviewed and found to be within normal limits, except as documented in this note. Current Medications Current Medications Current Medications Medications (Trade) Dose Ordered Sig/[facility] Start Time Stop Time Status Last Admin Dose Admin Metoclopramide HCl (Reglan Vial) 10 mg 1X ONCE 10/10/18 17:45 10/10/18 17:46 UNV Pantoprazole Sodium (Protonix Vial) 40 mg 1X ONCE 10/10/18 17:45 10/10/18 17:46 UNV Sodium Chloride 1,000 ml @ 1,000 mls/hr Q1H 10/10/18 17:41 10/10/18 18:40 UNV Allergies Allergies Allergies Coded Allergies Type Severity Reaction Last Updated Verified acetaminophen Allergy Intermediate HIVES 01/18/18 Yes adhesive tape Allergy Intermediate 01/18/18 Yes Physical Exam Physical Exam Constitutional: Well developed, well nourished, no acute distress, non-toxic appearance. [] HENT: Normocephalic, atraumatic, bilateral external ears normal, oropharynx moist, no oral exudates, nose normal. [] Eyes: PERRLA, EOMI, conjunctiva normal, no discharge. [] Neck: Normal range of motion, no tenderness, supple, no stridor. [] Cardiovascular: Regular rate and rhythm[] Lungs & Thorax: Bilateral breath sounds clear to auscultation [] Abdomen: Bowel sounds normal, soft, with generalized tenderness to palpation. [ ] Skin: Warm, dry, no erythema, no rash. [] Extremities: No tenderness, no cyanosis, no clubbing, ROM intact, no edema. [] Neurologic: Alert and oriented X 3, normal motor function, normal sensory function, no focal deficits noted. [] Current Patient Data Vital Signs Vital Signs Date Time Temp Pulse Resp B/P (MAP) Pulse Ox O2 Delivery O2 Flow Rate FiO2 10/10/18 17:28 99.2 113 18 97 Room Air Lab Results Laboratory Tests Test 10/10/18 17:28 Glucose (Fingerstick) 192 mg/dL (70-99) H EKG EKG [] Radiology/Procedures Radiology/Procedures [] Course & Med Decision Making Course & Med Decision Making Pertinent Labs and Imaging studies reviewed. (See chart for details) Patient seen and evaluated by your medical staff after which a workup has been initiated. At this time, entire workup is pending and patient is being signed out to oncoming ER physician at 6:00 PM. Diagnoses Gastroparesis Vomiting She'll be admitted to medicine service case discussed with hospitalist Annelise Disclaimer Annelise Disclaimer This electronic medical record was generated, in whole or in part, using a voice recognition dictation system. Departure Departure: Referrals: PCP,BAY (PCP) AMY HUFFMAN Jr., DO Oct 10, 2018 17:52 ZA LO MD Oct 10, 2018 19:25
[2018-10-10] MEDS ORDERED: PANTOPRAZOLE IV 40 MG VIAL. IVP ONE (18:00)
[2018-10-10] MEDS ORDERED: METOCLOPRAMIDE HCL 10 MG/2 ML VIAL. IV ONE (18:00)
[2018-10-10 18:19] LABS: BASO # 0.1 x10^3/uL (0.0-0.2); BASO % 1 % (0-3); EOS # 0.1 x10^3/uL (0.0-0.7); EOS % 1 % (0-3); HEMATOCRIT 40.2 % (36.0-47.0); HEMOGLOBIN 13.6 g/dL (12.0-15.5); LYMPH # 1.8 x10^3/uL (1.0-4.8); LYMPH % 27 % (24-48); MEAN CORPUSCULAR HEMOGLOBIN 30 pg (25-35); MEAN CORPUSCULAR HGB CONC 34 g/dL (31-37); MEAN CORPUSCULAR VOLUME 88 fL (79-100); MONO # 0.5 x10^3/uL (0.0-1.1); MONO % 7 % (0-9); NEUT # 4.4 x10^3uL (1.8-7.7); NEUT % 64 % (31-73); PLATELET COUNT 354 x10^3/uL (140-400); RED BLOOD COUNT 4.56 x10^6/uL (3.50-5.40); RED CELL DISTRIBUTION WIDTH 15.1 % (11.5-14.5); WHITE BLOOD COUNT 6.9 x10^3/uL (4.0-11.0)
[2018-10-10 18:31] LABS: ALBUMIN/GLOBULIN RATIO 1.1 (1.0-1.7); CALCIUM 9.1 mg/dL (8.5-10.1); CREATININE 0.6 mg/dL (0.6-1.0); GFR 119.9; POTASSIUM 4.2 mmol/L (3.5-5.1); TOTAL BILIRUBIN 0.8 mg/dL (0.2-1.0); TOTAL PROTEIN 7.6 g/dL (6.4-8.2)
[2018-10-10 18:33] LABS: AMPHETAMINE/METHAMPHETAMINE NEG (NEG); BARBITURATES NEG (NEG); BENZODIAZEPINES NEG (NEG); CANNABINOIDS NEG (NEG); COCAINE NEG (NEG); METHADONE NEG (NEG); OPIATES NEG (NEG); PHENCYCLIDINE NEG (NEG)
[2018-10-10 18:40] LABS: BACTERIA,URINE 0 /HPF (0-FEW); BILIRUBIN,URINE NEG (NEG); CLARITY,URINE CLEAR; COLOR,URINE YELLOW; GLUCOSE,URINE 500 mg/dL (NEG); NITRITE,URINE NEG (NEG); SQUAMOUS EPITHELIAL CELL,UR MOD /LPF; UROBILINOGEN,URINE 2 mg/dL (0.2 mg/dL)
[2018-10-10] MEDS ORDERED: ONDANSETRON PF 4 MG/2 ML VIAL. IV PRN (19:15)
[2018-10-10] MEDS ORDERED: IV NORMAL SALINE 1,000ML 1,000 ML IV ONE (19:35)
[2018-10-10 21:10] VITALS: BP 144/99
[2018-10-10] MEDS ORDERED: DEXTROSE 50% 25 GM / 50ML DISP.SYRIN. IV PRN (22:15)
[2018-10-10] MEDS ORDERED: ONDANSETRON ODT 4 MG TAB.RAPDIS PO PRN (22:45)
[2018-10-10] MEDS: METOCLOPRAMIDE 10 MG TABLET PO SCH (23:03)
[2018-10-10] MEDS: FAMOTIDINE 20 MG TABLET PO SCH (23:03)
[2018-10-10 23:04] VITALS: BP 139/87
[2018-10-10] MEDS: INSULIN GLARGINE 300 UNITS/3 ML INSULN.PEN. SQ SCH (23:06)
[2018-10-11 05:01] VITALS: BP 110/72
[2018-10-11 06:57] LABS: BASO # 0.1 x10^3/uL (0.0-0.2); BASO % 2 % (0-3); EOS # 0.2 x10^3/uL (0.0-0.7); EOS % 3 % (0-3); HEMATOCRIT 31.3 % (36.0-47.0); HEMOGLOBIN 10.6 g/dL (12.0-15.5); LYMPH # 2.4 x10^3/uL (1.0-4.8); LYMPH % 42 % (24-48); MEAN CORPUSCULAR HEMOGLOBIN 30 pg (25-35); MEAN CORPUSCULAR HGB CONC 34 g/dL (31-37); MEAN CORPUSCULAR VOLUME 90 fL (79-100); MONO # 0.5 x10^3/uL (0.0-1.1); MONO % 8 % (0-9); NEUT # 2.6 x10^3uL (1.8-7.7); NEUT % 46 % (31-73); PLATELET COUNT 303 x10^3/uL (140-400); RED CELL DISTRIBUTION WIDTH 14.7 % (11.5-14.5); WHITE BLOOD COUNT 5.7 x10^3/uL (4.0-11.0)
[2018-10-11 07:27] LABS: ALBUMIN 2.9 g/dL (3.4-5.0); CALCIUM 7.9 mg/dL (8.5-10.1); CREATININE 0.6 mg/dL (0.6-1.0); GFR 119.9; POTASSIUM 3.9 mmol/L (3.5-5.1); TOTAL BILIRUBIN 0.7 mg/dL (0.2-1.0); TOTAL PROTEIN 5.7 g/dL (6.4-8.2)
[2018-10-11] MEDS ORDERED: INSULIN LISPRO 300 UNITS/3 ML INSULN.PEN. SQ SCH (08:00)
[2018-10-11] MEDS: FAMOTIDINE 20 MG TABLET PO SCH (09:02)
[2018-10-11] MEDS: METOCLOPRAMIDE 10 MG TABLET PO SCH (09:02)
[2018-10-11] MEDS: INSULIN GLARGINE 300 UNITS/3 ML INSULN.PEN. SQ SCH (09:05)
[2018-10-11 11:43] VITALS: BP 120/82
--- NOTE | 2018-10-11 15:16 | SSS ---
ADMIT DATE: 10/11/2018 HISTORY OF PRESENT ILLNESS: The patient is a 28-year-old female patient who came to the Emergency Room complaining of abdominal pain together with nausea and vomiting for the last 2-1/2 weeks. The patient states that she has been admitted to [place] 2 times during that period of time. She states that each time she was discharged home while she was still vomiting. States that she has been told that this is gastroparesis due to the diabetes, but she does not think that it is caused by gastroparesis. She also indicated that she has been dizzy for the last 2 weeks, describing it as everything spinning whenever she gets up. She said that when the dizziness gets worse, her nausea gets worse. Denied any lateralizing weakness or numbness. She has no speech abnormalities. The patient stated that she has pain in her abdomen that she rates 7/8. She has been extensively investigated. Her lab works were mostly unremarkable except hyperglycemia. In fact, her anion gap was only 15 and the patient was admitted, continued the IV fluid and she has received about 2 liters of normal saline in the Emergency Room. We continued with insulin sliding scale, continued her Lantus insulin together with metoclopramide. She apparently has had no further episodes of nausea and vomiting. She actually is asking for food immediately by the time she arrived to the hospital and has tolerated her food. Her blood sugar is much better controlled and a decision was made to discharge her home, as she was threatening to leave against medical advice. PAST MEDICAL HISTORY: Significant for poorly controlled type 1 diabetes mellitus, diabetic gastroparesis, multiple admissions for diabetic ketoacidosis. She has also peripheral neuropathy and polysubstance abuse including methamphetamine, although at this time, her urine toxic screen was essentially negative. PAST SURGICAL HISTORY: Significant for Port-A-Cath placement and removal, incision and drainage with left axillary abscess, multiple EGDs and gastric emptying study. FAMILY HISTORY: Unremarkable. SOCIAL HISTORY: She used to live with her mother. She does not smoke or drink alcohol; however, she used to use crystal methamphetamine. ALLERGIES: SHE IS ALLERGIC TO ADHESIVE TAPE AND ACETAMINOPHEN. MEDICATIONS: She is currently on following medications: She is on NovoLog insulin as insulin sliding scale, detemir insulin 20 units subcutaneously twice a day, magnesium oxide 400 mg twice a day, metoclopramide 10 mg 4 times a day, ondansetron 4 mg every 8 hours, Zantac 150 mg twice a day. PHYSICAL EXAMINATION: GENERAL: On examining her, she was sitting up in her bed, in no apparent distress. She was slightly pale, but no jaundice, cyanosis, or thyromegaly. No jugular venous distension. No limb edema. VITAL SIGNS: Her heart rate was 88, blood pressure 120/82, temperature was 98.3, respiratory rate 20, and oxygen saturation was 97% on room air. HEAD, EYES, EARS, NOSE AND THROAT: Showed normocephalic, atraumatic. NECK: Supple. HEART: Showed normal first and second heart sounds with no gallop, rub or murmur. CHEST: Clear to auscultation. No crepitation or rhonchi. ABDOMEN: Distended, soft, nontender. No guarding or rigidity. No organomegaly. All hernial orifices intact. Bowel sounds normal. NEUROLOGIC: She was awake, alert, responding appropriately. All cranial nerves intact. EXTREMITIES: She moves extremities without difficulty. She ambulates without assistance or assistive devices. LABORATORY DATA: White cell count was 5700, hemoglobin 11, hematocrit 31, MCV 90 and platelet count 303,000. Her chemistry showed serum sodium of 132, potassium 3.9, chloride 98, bicarbonate 21, anion gap of 13, BUN 12, creatinine 0.6, estimated GFR was 119 mL per minute. Her glucose was 191, calcium was 7.9. Total bilirubin, AST, ALT, alkaline phosphatase were normal. Total protein 5.7, albumin 2.9. Her urinalysis was negative for nitrite and leukocyte esterase with only 3-5 rbc's and 5-10 wbc's and no bacteria. Her urine test was negative and urine toxicology screen was essentially negative. DISCHARGE MEDICATIONS: She was discharged home to continue on all her home medications including NovoLog insulin as insulin sliding scale before meals and detemir insulin 20 units twice a day. She is on metoclopramide 10 mg 1 before meals and bedtime, ondansetron 4 mg every 4 hours and ranitidine 150 mg twice a day. FINAL DISCHARGE DIAGNOSES: 1. Recurrent bouts of nausea and vomiting, likely diabetic gastroparesis. 2. Type 1 diabetes. 3. Recurrent diabetic ketoacidosis. 4. Diabetic peripheral neuropathy. ANAYELI FOSS MD DR: JOSÉ/regina JOB#: [id number] / [id number]
== END 2018-10-11 13:30 | disposition home or self-care (01) | DRG 639 ==
LOC: ER 17:18 → 1 SOUTH 19:30
PROVIDERS: ADMIT Internal Medicine; ATTEND Internal Medicine
DX: E10.10 Type 1 diabetes mellitus with ketoacidosis without coma (principal); E10.43 Type 1 diabetes mellitus with diabetic autonomic (poly)neuropathy; E10.42 Type 1 diabetes mellitus with diabetic polyneuropathy; F19.10 Other psychoactive substance abuse, uncomplicated; K31.84 Gastroparesis; Z79.4 Long term (current) use of insulin; Z79.899 Other long term (current) drug therapy; Z87.440 Personal history of urinary (tract) infections; Z88.8 Allergy status to other drugs, medicaments and biological substances; Z91.048 Other nonmedicinal substance allergy status
CPT/HCPCS: 36415; 80053; 80307; 81001; 81025; 82010; 82947; 83690; 85025; 87086; 96361; 96374; 96375; C9113; J1815; J2765; J3010; J8597; 99285-25; J7030

== ENCOUNTER 2018-10-13 11:36 | Emergency (ER) | payer SELFPAY ==
[~2018-10-13] VITALS: Ht 170.2 cm; Wt 60.8 kg
[~2018-10-13 11:36] MED LIST changes: +HYDR-2155 PO; -HYDR-2758 PO
[2018-10-13] MEDS ORDERED: IV NORMAL SALINE 1,000ML 1,000 ML IV ONE (12:15)
[2018-10-13] MEDS ORDERED: ASPIRIN 81 MG TAB.CHEW PO ONE (12:30)
[2018-10-13] MEDS ORDERED: KETOROLAC 30 MG/ML VIAL. IV ONE (12:30)
[2018-10-13] MEDS ORDERED: METOCLOPRAMIDE HCL 10 MG/2 ML VIAL. IV ONE (12:30)
[2018-10-13] MEDS ORDERED: LIDO:MAALOX 1:1 20 ML SINGLE DOSE. PO ONE (12:30)
[2018-10-13 12:38] LABS: BASO % 0 % (0-3); EOS # 0.2 x10^3/uL (0.0-0.7); EOS % 3 % (0-3); HEMATOCRIT 39.2 % (36.0-47.0); LYMPH # 1.7 x10^3/uL (1.0-4.8); LYMPH % 33 % (24-48); MEAN CORPUSCULAR HEMOGLOBIN 29 pg (25-35); MEAN CORPUSCULAR HGB CONC 33 g/dL (31-37); MEAN CORPUSCULAR VOLUME 88 fL (79-100); MONO # 0.6 x10^3/uL (0.0-1.1); MONO % 12 % (0-9); NEUT # 2.5 x10^3uL (1.8-7.7); NEUT % 51 % (31-73); PLATELET COUNT 360 x10^3/uL (140-400); RED BLOOD COUNT 4.44 x10^6/uL (3.50-5.40); RED CELL DISTRIBUTION WIDTH 15.4 % (11.5-14.5)
[2018-10-13 12:50] VITALS: BP 125/96
[2018-10-13 13:00] LABS: ALBUMIN 3.5 g/dL (3.4-5.0); CALCIUM 9.1 mg/dL (8.5-10.1); CREATININE 0.7 mg/dL (0.6-1.0); GFR 100.4; POTASSIUM 4.2 mmol/L (3.5-5.1); TOTAL BILIRUBIN 0.3 mg/dL (0.2-1.0)
[2018-10-13 13:06] LABS: AMORPHOUS SEDIMENT,UR PRESENT /HPF; BACTERIA,URINE FEW /HPF (0-FEW); BILIRUBIN,URINE NEG (NEG); CLARITY,URINE CLOUDY; COLOR,URINE YELLOW; GLUCOSE,URINE >=1000 mg/dL (NEG); NITRITE,URINE NEG (NEG); RBC,URINE OCC /HPF (0-2); UROBILINOGEN,URINE 1 mg/dL (0.2 mg/dL)
[2018-10-13 13:10] LABS: SQUAMOUS EPITHELIAL CELL,UR MOD /LPF
--- NOTE | 2018-10-13 13:26 | PHYS DOC ---
Past History Past Medical History: Diabetes, UTI, Other Additional Past Medical Histor: pt reports several admissions for "high blood sugar" Past Surgical History: Other Smoking: Less than 1pk/day Alcohol Use: None Drug Use: Methamphetamine Adult General Chief Complaint Chief Complaint: CHEST PAIN-NON CARDIAC NATURE HPI HPI 28-year-old female presents with chest pain. She states that the chest pain started yesterday evening around 9 PM while she was sitting on the couch. She describes it as a central sharpness. It has been as bad as a 9 out of 10. On arrival she rated it 9 out of 10. She denies shortness of breath or diaphoresis. She has not had anything like this before. She denies any drug use. She does have a history of gastroparesis and some reflux. She denies fever or chills. Review of Systems Review of Systems Constitutional: Denies fever or chills [] Eyes: Denies change in visual acuity, redness, or eye pain [] HENT: Denies nasal congestion or sore throat [] Respiratory: Denies cough or shortness of breath [] Cardiovascular: No additional information not addressed in HPI [] GI: Denies abdominal pain, nausea, vomiting, bloody stools or diarrhea [] : Denies dysuria or hematuria [] Musculoskeletal: Denies back pain or joint pain [] Integument: Denies rash or skin lesions [] Neurologic: Denies headache, focal weakness or sensory changes [] Endocrine: Denies polyuria or polydipsia [] All other systems were reviewed and found to be within normal limits, except as documented in this note. Current Medications Current Medications Current Medications Medications (Trade) Dose Ordered Sig/[facility] Start Time Stop Time Status Last Admin Dose Admin Aspirin (Children'S Aspirin) 324 mg 1X ONCE 10/13/18 12:30 10/13/18 12:46 DC 10/13/18 12:44 324 MG Ketorolac Tromethamine (Toradol 30mg Vial) 30 mg 1X ONCE 10/13/18 12:30 10/13/18 12:46 DC 10/13/18 12:38 30 MG Metoclopramide HCl (Reglan Vial) 10 mg 1X ONCE 10/13/18 12:30 10/13/18 12:46 DC 10/13/18 12:38 10 MG Multi-Ingredient Mouthwash/Gargle (Gi Cocktail) 20 ml 1X ONCE 10/13/18 12:30 10/13/18 12:31 DC 10/13/18 12:36 20 ML Sodium Chloride 1,000 ml @ 1,000 mls/hr 1X ONCE 10/13/18 12:15 10/13/18 13:14 DC 10/13/18 12:36 1,000 MLS/HR Allergies Allergies Allergies Coded Allergies Type Severity Reaction Last Updated Verified acetaminophen Allergy Intermediate HIVES 01/18/18 Yes adhesive tape Allergy Intermediate 01/18/18 Yes Physical Exam Physical Exam Constitutional: Well developed, well nourished, no acute distress, non-toxic appearance. [] HENT: Normocephalic, atraumatic, bilateral external ears normal, oropharynx moist, no oral exudates, nose normal. [] Eyes: PERRLA, EOMI, conjunctiva normal, no discharge. [] Neck: Normal range of motion, no tenderness, supple, no stridor. [] Cardiovascular:Heart rate regular rhythm, no murmur [] Lungs & Thorax: Bilateral breath sounds clear to auscultation [] Abdomen: Bowel sounds normal, soft, no tenderness, no masses, no pulsatile masses. [] Skin: Warm, dry, no erythema, no rash. [] Back: No tenderness, no CVA tenderness. [] Extremities: No tenderness, no cyanosis, no clubbing, ROM intact, no edema. [] Neurologic: Alert and oriented X 3, normal motor function, normal sensory function, no focal deficits noted. [] Psychologic: Affect normal, judgement normal, mood normal. [] Current Patient Data Vital Signs Vital Signs Date Time Temp Pulse Resp B/P (MAP) Pulse Ox O2 Delivery O2 Flow Rate FiO2 10/13/18 12:50 98.4 101 20 100 Room Air Lab Results Laboratory Tests Test 10/13/18 11:44 10/13/18 12:12 10/13/18 12:29 Glucose (Fingerstick) 224 mg/dL (70-99) H White Blood Count 5.0 x10^3/uL (4.0-11.0) Red Blood Count 4.44 x10^6/uL (3.50-5.40) Hemoglobin 13.0 g/dL (12.0-15.5) Hematocrit 39.2 % (36.0-47.0) Mean Corpuscular Volume 88 fL (79-100) Mean Corpuscular Hemoglobin 29 pg (25-35) Mean Corpuscular Hemoglobin Concent 33 g/dL (31-37) Red Cell Distribution Width 15.4 % (11.5-14.5) H Platelet Count 360 x10^3/uL (140-400) Neutrophils (%) (Auto) 51 % (31-73) Lymphocytes (%) (Auto) 33 % (24-48) Monocytes (%) (Auto) 12 % (0-9) H Eosinophils (%) (Auto) 3 % (0-3) Basophils (%) (Auto) 0 % (0-3) Neutrophils # (Auto) 2.5 x10^3uL (1.8-7.7) Lymphocytes # (Auto) 1.7 x10^3/uL (1.0-4.8) Monocytes # (Auto) 0.6 x10^3/uL (0.0-1.1) Eosinophils # (Auto) 0.2 x10^3/uL (0.0-0.7) Basophils # (Auto) 0.0 x10^3/uL (0.0-0.2) Sodium Level 134 mmol/L (136-145) L Potassium Level 4.2 mmol/L (3.5-5.1) Chloride Level 100 mmol/L (98-107) Carbon Dioxide Level 23 mmol/L (21-32) Anion Gap 11 (6-14) Blood Urea Nitrogen 10 mg/dL (7-20) Creatinine 0.7 mg/dL (0.6-1.0) Estimated GFR (Cockcroft-Gault) 100.4 BUN/Creatinine Ratio 14 (6-20) Glucose Level 213 mg/dL (70-99) H Calcium Level 9.1 mg/dL (8.5-10.1) Total Bilirubin 0.3 mg/dL (0.2-1.0) Aspartate Amino Transferase (AST) 25 U/L (15-37) Alanine Aminotransferase (ALT) 65 U/L (14-59) H Alkaline Phosphatase 89 U/L (46-116) Troponin I Quantitative < 0.017 ng/mL (0-0.055) Total Protein 7.0 g/dL (6.4-8.2) Albumin 3.5 g/dL (3.4-5.0) Albumin/Globulin Ratio 1.0 (1.0-1.7) Acetone Level Sm pos (NEG) Urine Collection Type Unknown Urine Color Yellow Urine Clarity Cloudy Urine pH 8.0 Urine Specific [place] 1.020 Urine Protein Neg (NEG-TRACE) Urine Glucose (UA) >=1000 mg/dL (NEG) Urine Ketones (Stick) Trace mg/dL (NEG) Urine Blood Neg (NEG) Urine Nitrite Neg (NEG) Urine Bilirubin Neg (NEG) Urine Urobilinogen Dipstick 1 mg/dL (0.2 mg/dL) Urine Leukocyte Esterase Neg (NEG) Urine RBC Occ /HPF (0-2) Urine WBC 1-4 /HPF (0-4) Urine Squamous Epithelial Cells Mod /LPF Urine Transitional Epithelial Cells Few /LPF Urine Amorphous Sediment Present /HPF Urine Bacteria Few /HPF (0-FEW) Urine Mucus Slight /LPF EKG EKG Sinus tachycardia, rate 101, normal axis, no ST elevations or depressions.[] Radiology/Procedures Radiology/Procedures [] Impressions: Two-view chest 10/13/2018 CLINICAL INDICATION: Chest pain for one day COMPARISON: Chest 02/12/2018 FINDINGS: Cardiac and mediastinal silhouettes are unremarkable. No pleural effusion, pneumothorax or focal consolidation. IMPRESSION: No acute cardiopulmonary abnormality. Electronically signed by: Kira Silva MD (10/13/2018 1:35 PM) [facility] DICTATED AND SIGNED BY: KIRA SILVA MD DATE: 10/13/18 1334 CC: ROXY SU DO; PCPBAY Course & Med Decision Making Course & Med Decision Making Pertinent Labs and Imaging studies reviewed. (See chart for details) The patient's labs are unremarkable separately expected elevated blood sugar. Her troponin is negative. Her EKG is unremarkable. Her urinalysis is negative for infection. Her chest x-ray is unremarkable. The patient was given 324 aspirin, 30 mg Toradol IV, 2 mg of morphine IV, 4 mg Zofran IV. Her pain is improved at this time. Her workup is negative. She is stable for discharge at this time [] Dragon Disclaimer Dragon Disclaimer This electronic medical record was generated, in whole or in part, using a voice recognition dictation system. Departure Departure: Referrals: PCPBAY (PCP) ROXY SU DO Oct 13, 2018 13:26
--- NOTE | 2018-10-13 13:38 | RAD ---
Two-view chest 10/13/2018 CLINICAL INDICATION: Chest pain for one day COMPARISON: Chest 02/12/2018 FINDINGS: Cardiac and mediastinal silhouettes are unremarkable. No pleural effusion, pneumothorax or focal consolidation. IMPRESSION: No acute cardiopulmonary abnormality. Electronically signed by: Jeremias Silva MD (10/13/2018 1:35 PM) [facility]
[2018-10-13] MEDS ORDERED: MORPHINE SULFATE 2 MG/ML DISP.SYRIN. IV ONE (13:45)
[2018-10-13] MEDS ORDERED: OMEP40CA5 PO (14:26)
--- NOTE | 2018-10-13 14:32 | EKG ---
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
== END 2018-10-13 14:30 | disposition home or self-care (01) ==
LOC: ER 11:36
DX: R07.89 Other chest pain (principal); E11.65 Type 2 diabetes mellitus with hyperglycemia; F17.200 Nicotine dependence, unspecified, uncomplicated; Z87.440 Personal history of urinary (tract) infections; Z88.6 Allergy status to analgesic agent; Z88.8 Allergy status to other drugs, medicaments and biological substances
CPT/HCPCS: 36415; 71046; 80053; 81001; 82010; 82947; 84484; 85025; 93005; 96361; 96374; 96375; 99284; J1885; J2270; J2765; J7030

== ENCOUNTER 2018-10-13 20:20 | Inpatient (IN) | payer SELFPAY ==
[~2018-10-13] VITALS: Ht 170.2 cm; Wt 65.1 kg
[~2018-10-13 20:20] MED LIST changes: -HYDR-2155 PO; +HYDR-2758 PO; +OMEP40CA5 PO
--- NOTE | 2018-10-13 21:18 | ED.ADGEN ---
Past History Past Medical History: Anxiety, Diabetes, UTI, Other Additional Past Medical Histor: pt reports several admissions for "high blood sugar" Past Surgical History: Other Smoking: Less than 1pk/day Alcohol Use: None Drug Use: Methamphetamine Adult General Chief Complaint Chief Complaint ".. I still really hurting.. and vomiting.. and still have chest pain... I was here earlier..." HPI HPI Patient is a 28 year old FEMALE who presents with continue chest pain, vomiting and generalized abdomen pain. Pt. is know to ED staff for frequent ED visits for poor control of her DM. Pt. has hx of DKA, Polysubstance Abuse, Non- compliance, gastroparesis and cyclic vomiting. Pt. seen earlier in day, but reports increased chest pain, nausea, vomiting and abdomen pain. Some hx of constipation. Pt. denies any recent polysubstance abuse. Pt. denies trauma. No intake of bad food. No specific ill contacts or travel. Pt. currently following at [facility]. Pt. localized chest pain to epigastric and sub sternal. No change since prior eval. in ED today. Review of Systems Review of Systems Constitutional: Complaints subjective fevers Eyes: Denies change in visual acuity, redness, or eye pain [] HENT: Denies nasal congestion or sore throat [] Respiratory: Denies cough or shortness of breath [] Cardiovascular: No additional information not addressed in HPI [] GI: complaints of generalized abdominal pain, nausea, vomiting. denies bloody stools or diarrhea [] : Denies dysuria or hematuria [] Musculoskeletal: Denies back pain or joint pain [] Integument: Denies rash or skin lesions [] Neurologic: Denies headache, focal weakness or sensory changes [] Endocrine: Denies polyuria or polydipsia [] All other systems were reviewed and found to be within normal limits, except as documented in this note. Family History Family History DM Current Medications Current Medications Current Medications Medications (Trade) Dose Ordered Sig/Chevy Start Time Stop Time Status Last Admin Dose Admin Diphenhydramine HCl (Benadryl) 50 mg QIDPRN PRN 10/13/18 23:15 Enoxaparin Sodium (Lovenox 60mg Syringe) 60 mg BID 10/13/18 23:30 10/14/18 00:12 60 MG Info (Anti-Coagulation Monitoring By Pharmacy) 1 each PRN DAILY PRN 10/13/18 23:30 Insulin Human Regular 150 unit/ Sodium Chloride 151.5 ml @ 0 mls/hr 1X ONCE 10/13/18 23:30 10/13/18 23:31 DC Lactated Ringer's 1,000 ml @ 160 mls/hr Q6H15M 10/13/18 23:15 10/14/18 00:12 160 MLS/HR Magnesium Hydroxide (Milk Of Magnesia) 2,400 mg 1X ONCE 10/13/18 23:30 10/13/18 23:31 DC 10/14/18 00:12 2,400 MG Morphine Sulfate (Morphine 10mg Syringe) 5 mg QIDPRN PRN 10/13/18 23:15 10/14/18 00:14 5 MG Ondansetron HCl (Zofran) 4 mg PRN Q4HRS PRN 10/13/18 23:15 10/14/18 23:14 Prochlorperazine Edisylate (Compazine) 10 mg QIDPRN PRN 10/13/18 23:15 Sodium Chloride 1,000 ml @ 1,000 mls/hr Q1H 10/13/18 22:00 10/13/18 22:59 DC 10/13/18 22:17 1,000 MLS/HR Allergies Allergies Allergies Coded Allergies Type Severity Reaction Last Updated Verified acetaminophen Allergy Intermediate HIVES 01/18/18 Yes adhesive tape Allergy Intermediate 01/18/18 Yes Physical Exam Physical Exam Constitutional: Moderately acute distress, non-toxic appearance. [] HENT: Normocephalic, atraumatic, bilateral external ears normal, oropharynx dry , no oral exudates, nose normal. [] Eyes: PERRLA, EOMI, conjunctiva normal, no discharge. [] Neck: Normal range of motion, no tenderness, supple, no stridor. [] Cardiovascular:Tachycardia Heart rate regular rhythm, no murmur [] Lungs & Thorax: Bilateral breath sounds equal at apex with scattered wheezing on auscultation [] Abdomen: Bowel sounds decreased, soft, generalized tenderness, Liver edge, , no pulsatile masses. Dry heaving. No focal rebound. Declines rectal or pelvic exam. Skin: Warm, diaphoretic, no erythema, no rash. [] Back: No tenderness, no CVA tenderness. [] Extremities: No tenderness, no cyanosis, no clubbing, ROM intact, no edema. [] No psoas or heel tap. Neurologic: Alert and oriented X 3, normal motor function, normal sensory function, no focal deficits noted. [] Psychologic: Affect anxious, judgement normal, mood depressed. Current Patient Data Vital Signs Vital Signs Date Time Temp Pulse Resp B/P (MAP) Pulse Ox O2 Delivery O2 Flow Rate FiO2 10/13/18 22:22 98 19 128/82 (97) 98 Room Air 10/13/18 20:33 98.4 Lab Results Laboratory Tests Test 10/13/18 21:55 10/13/18 22:10 10/13/18 22:14 White Blood Count 7.2 x10^3/uL (4.0-11.0) Red Blood Count 3.75 x10^6/uL (3.50-5.40) Hemoglobin 11.2 g/dL (12.0-15.5) L Hematocrit 33.3 % (36.0-47.0) L Mean Corpuscular Volume 89 fL (79-100) Mean Corpuscular Hemoglobin 30 pg (25-35) Mean Corpuscular Hemoglobin Concent 34 g/dL (31-37) Red Cell Distribution Width 15.2 % (11.5-14.5) H Platelet Count 349 x10^3/uL (140-400) Neutrophils (%) (Auto) 61 % (31-73) Lymphocytes (%) (Auto) 27 % (24-48) Monocytes (%) (Auto) 10 % (0-9) H Eosinophils (%) (Auto) 2 % (0-3) Basophils (%) (Auto) 0 % (0-3) Neutrophils # (Auto) 4.4 x10^3uL (1.8-7.7) Lymphocytes # (Auto) 1.9 x10^3/uL (1.0-4.8) Monocytes # (Auto) 0.7 x10^3/uL (0.0-1.1) Eosinophils # (Auto) 0.2 x10^3/uL (0.0-0.7) Basophils # (Auto) 0.0 x10^3/uL (0.0-0.2) Prothrombin Time 9.3 SEC (9.4-11.4) L Prothrombin Time INR 0.9 (0.9-1.1) PTT 21 SEC (23-33) L D-Dimer (Darlene) 0.77 mg/L (0.00-0.50) H Sodium Level 136 mmol/L (136-145) Potassium Level 4.1 mmol/L (3.5-5.1) Chloride Level 101 mmol/L (98-107) Carbon Dioxide Level 25 mmol/L (21-32) Anion Gap 10 (6-14) Blood Urea Nitrogen 10 mg/dL (7-20) Creatinine 0.5 mg/dL (0.6-1.0) L Estimated GFR (Cockcroft-Gault) 148.0 Glucose Level 164 mg/dL (70-99) H Lactic Acid Level 1.5 mmol/L (0.4-2.0) Calcium Level 8.4 mg/dL (8.5-10.1) L Magnesium Level 2.0 mg/dL (1.8-2.4) Total Bilirubin 0.2 mg/dL (0.2-1.0) Direct Bilirubin 0.1 mg/dL (0.0-0.2) Aspartate Amino Transferase (AST) 24 U/L (15-37) Alanine Aminotransferase (ALT) 56 U/L (14-59) Alkaline Phosphatase 74 U/L (46-116) Creatine Kinase 45 U/L (26-192) Troponin I Quantitative < 0.017 ng/mL (0-0.055) QH-Hvi-E-Type Natriuretic Peptide 90 pg/mL (0-124) Total Protein 6.0 g/dL (6.4-8.2) L Albumin 3.3 g/dL (3.4-5.0) L Lipase 61 U/L (73-393) L Urine Collection Type Unknown Urine Color Yellow Urine Clarity Clear Urine pH 7.0 Urine Specific [place] 1.020 Urine Protein Neg (NEG-TRACE) Urine Glucose (UA) >=1000 mg/dL (NEG) Urine Ketones (Stick) Trace mg/dL (NEG) Urine Blood Neg (NEG) Urine Nitrite Neg (NEG) Urine Bilirubin Neg (NEG) Urine Urobilinogen Dipstick 1 mg/dL (0.2 mg/dL) Urine Leukocyte Esterase Neg (NEG) Urine RBC Occ /HPF (0-2) Urine WBC 1-4 /HPF (0-4) Urine Squamous Epithelial Cells Many /LPF Urine Bacteria 0 /HPF (0-FEW) Urine Mucus Mod /LPF Urine Opiates Screen Pos (NEG) Urine Methadone Screen Neg (NEG) Urine Barbiturates Neg (NEG) Urine Phencyclidine Screen Neg (NEG) Urine Amphetamine/Methamphetamine Neg (NEG) Urine Benzodiazepines Screen Neg (NEG) Urine Cocaine Screen Neg (NEG) Urine Cannabinoids Screen Neg (NEG) Urine Ethyl Alcohol Neg (NEG) POC Urine HCG, Qualitative hcg negative (Negative) EKG EKG My interpretation EKG shows a sinus rhythm at 90 bpm. Nonspecific contour abnormality in anterior lateral area. But no findings acute STEMI with contralateral changes[] Radiology/Procedures Radiology/Procedures My interpretation of chest film shows no acute cardiopulmonary changes. No free air in the diaphragm. 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 Does have stool in sigmoid area and right colon.[] Course & Med Decision Making Course & Med Decision Making Pertinent Labs and Imaging studies reviewed. (See chart for details) Patient to be admitted to Dr. Pereira. . Pending ultrasound of abdomen and legs. [] Final Impression Final Impression 1. DM[] 164 2. Cyclic Vomiting/ Gastroparesis 3. Anemia 11.2 4. Elevated D-dimer 0.77 5. DM 164 6. Constipation - Hx Dragon Disclaimer Dragon Disclaimer This electronic medical record was generated, in whole or in part, using a voice recognition dictation system. YELENA HENRY MD Oct 13, 2018 21:18
--- NOTE | 2018-10-13 21:45 | EKG ---
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
[2018-10-13] MEDS ORDERED: PROCHLORPERAZINE 10 MG/2 ML VIAL. IM ONE (22:00)
[2018-10-13] MEDS ORDERED: diphenhydrAMINE 50 MG/ML VIAL IM ONE (22:00)
[2018-10-13] MEDS ORDERED: IV NORMAL SALINE 1,000ML 1,000 ML IV SCH (22:00)
[2018-10-13 22:13] LABS: BASO % 0 % (0-3); EOS # 0.2 x10^3/uL (0.0-0.7); EOS % 2 % (0-3); HEMATOCRIT 33.3 % (36.0-47.0); HEMOGLOBIN 11.2 g/dL (12.0-15.5); LYMPH # 1.9 x10^3/uL (1.0-4.8); LYMPH % 27 % (24-48); MEAN CORPUSCULAR HEMOGLOBIN 30 pg (25-35); MEAN CORPUSCULAR HGB CONC 34 g/dL (31-37); MEAN CORPUSCULAR VOLUME 89 fL (79-100); MONO # 0.7 x10^3/uL (0.0-1.1); MONO % 10 % (0-9); NEUT # 4.4 x10^3uL (1.8-7.7); NEUT % 61 % (31-73); PLATELET COUNT 349 x10^3/uL (140-400); RED BLOOD COUNT 3.75 x10^6/uL (3.50-5.40); RED CELL DISTRIBUTION WIDTH 15.2 % (11.5-14.5); WHITE BLOOD COUNT 7.2 x10^3/uL (4.0-11.0)
[2018-10-13 22:30] LABS: ALBUMIN 3.3 g/dL (3.4-5.0); CALCIUM 8.4 mg/dL (8.5-10.1); CREATININE 0.5 mg/dL (0.6-1.0); DIRECT BILIRUBIN 0.1 mg/dL (0.0-0.2); POTASSIUM 4.1 mmol/L (3.5-5.1); TOTAL BILIRUBIN 0.2 mg/dL (0.2-1.0)
[2018-10-13] MEDS ORDERED: PROCHLORPERAZINE 10 MG/2 ML VIAL. IV ONE (22:30)
[2018-10-13] MEDS ORDERED: diphenhydrAMINE 50 MG/ML VIAL IVP ONE (22:30)
[2018-10-13 22:35] LABS: BACTERIA,URINE 0 /HPF (0-FEW); BILIRUBIN,URINE NEG (NEG); CLARITY,URINE CLEAR; COLOR,URINE YELLOW; GLUCOSE,URINE >=1000 mg/dL (NEG); NITRITE,URINE NEG (NEG); RBC,URINE OCC /HPF (0-2); SQUAMOUS EPITHELIAL CELL,UR MANY /LPF; UROBILINOGEN,URINE 1 mg/dL (0.2 mg/dL)
[2018-10-13 22:37] LABS: AMPHETAMINE/METHAMPHETAMINE NEG (NEG); BARBITURATES NEG (NEG); BENZODIAZEPINES NEG (NEG); CANNABINOIDS NEG (NEG); COCAINE NEG (NEG); METHADONE NEG (NEG); OPIATES POS (NEG); PHENCYCLIDINE NEG (NEG)
[2018-10-13] MEDS ORDERED: ONDANSETRON PF 4 MG/2 ML VIAL. IV PRN (23:15)
[2018-10-13] MEDS ORDERED: PROCHLORPERAZINE 10 MG/2 ML VIAL. IM PRN (23:15)
[2018-10-13] MEDS ORDERED: diphenhydrAMINE 50 MG/ML VIAL IM PRN (23:15)
[2018-10-13] MEDS ORDERED: MAGNESIUM HYDROXIDE 2,400 MG/30 ML ORAL.SUSP. PO ONE (23:30)
[2018-10-13] MEDS ORDERED: INSULIN REGULAR VIAL 150 UNIT in 0.9 % SODIUM CHLORIDE 150ML 150 ML IV ONE (23:30)
[2018-10-13] MEDS ORDERED: ANTI-COAG MONITOR BY PHARMACY. MC PRN (23:30)
[2018-10-14 00:11] VITALS: BP 109/77
[2018-10-14] MEDS: ENOXAPARIN ** NOTE DOSE ** SYRINGE SQ SCH ×2 (00:12→07:43)
[2018-10-14] MEDS: IV RINGERS SOLUTION,LACTATED 1,000 ML IV SCH ×3 (00:12→11:45)
[2018-10-14] MEDS: MORPHINE SULFATE 10 MG/ML SYRINGE. SQ PRN ×4 (00:14→15:52)
[2018-10-14 06:42] VITALS: BP 99/66
[2018-10-14 07:13] LABS: BASO % 0 % (0-3); EOS # 0.2 x10^3/uL (0.0-0.7); EOS % 3 % (0-3); HEMATOCRIT 30.3 % (36.0-47.0); LYMPH # 2.7 x10^3/uL (1.0-4.8); LYMPH % 45 % (24-48); MEAN CORPUSCULAR HEMOGLOBIN 30 pg (25-35); MEAN CORPUSCULAR HGB CONC 33 g/dL (31-37); MEAN CORPUSCULAR VOLUME 90 fL (79-100); MONO # 0.7 x10^3/uL (0.0-1.1); MONO % 11 % (0-9); NEUT # 2.5 x10^3uL (1.8-7.7); NEUT % 42 % (31-73); PLATELET COUNT 305 x10^3/uL (140-400); RED BLOOD COUNT 3.36 x10^6/uL (3.50-5.40); RED CELL DISTRIBUTION WIDTH 15.1 % (11.5-14.5); WHITE BLOOD COUNT 6.1 x10^3/uL (4.0-11.0)
[2018-10-14 07:21] LABS: CALCIUM 7.8 mg/dL (8.5-10.1); CREATININE 0.5 mg/dL (0.6-1.0); POTASSIUM 4.1 mmol/L (3.5-5.1)
--- NOTE | 2018-10-14 08:52 | RAD ---
Single view chest and upright supine AP views abdomen 10/13/2018 CLINICAL INDICATION: Chest pain with nausea. COMPARISON: Abdominal series 02/12/2018 FINDINGS: Cardiac and mediastinal silhouettes are unremarkable. No pleural effusion, pneumothorax or focal consolidation. There is a nonobstructive bowel gas pattern. No pneumoperitoneum. IMPRESSION: 1. No acute cardiopulmonary abnormality. 2. No radiographic evidence of bowel obstruction or pneumoperitoneum. Electronically signed by: Jeremias Silva MD (10/14/2018 8:48 AM) [facility]
[2018-10-14] MEDS ORDERED: FAMOTIDINE 20 MG TABLET PO SCH (09:00)
[2018-10-14 11:23] VITALS: BP 150/96
[2018-10-14] MEDS ORDERED: KETOROLAC 15 MG/ML VIAL. IV ONE (11:30)
--- NOTE | 2018-10-14 11:32 | RAD ---
Ultrasound abdomen complete 10/14/2018 CLINICAL INDICATION: Abdominal pain. COMPARISON: Ultrasound abdomen limited 12/18/2017, CT abdomen and pelvis without and thousand 18 FINDINGS: Visualized proximal pancreas unremarkable. Liver is homogeneous in echotexture. Visualized upper abdominal aorta and IVC are unremarkable. Right kidney measures 12.3 cm in length without hydronephrosis or abnormal perinephric fluid collection. Gallbladder is normal in size and configuration without wall thickening or pericholecystic fluid or cholelithiasis. There is mild extrahepatic biliary ductal dilatation with the common bile duct measuring 7 mm. Spleen is normal in size measuring 9.5 cm in length. Left kidney measures 12.6 centers in length without hydronephrosis or abnormal perinephric fluid collection. IMPRESSION: 1. Mild dilatation of the common bile duct. Correlation with liver enzymes is recommended. 2. No cholelithiasis or sonographic evidence of acute cholecystitis. Electronically signed by: Jeremias Silva MD (10/14/2018 11:28 AM) [facility]
--- NOTE | 2018-10-14 11:33 | RAD ---
Bilateral Lower extremity venous Doppler. 10/14/2018 HISTORY: Bilateral lower extremity pain and swelling with elevated d-dimer COMPARISON: None. FINDINGS: Grayscale, Color and Doppler analysis of the Bilateral Lower extremity deep venous system was performed with serial graded compression and augmentation. The bilateral common femoral, femoral, and popliteal veins are widely patent with normal color Doppler imaging. Limited images of the bilateral calf veins are unremarkable. IMPRESSION: No evidence of DVT in the bilateral lower extremities. Electronically signed by: Jeremias Silva MD (10/14/2018 11:29 AM) [facility]
[2018-10-14] MEDS ORDERED: IOHEXOL 300 MG/ML 75 ML VIAL. IV ONE (14:15)
--- NOTE | 2018-10-14 15:27 | HP ---
ADMIT DATE: 10/14/2018 HISTORY OF PRESENT ILLNESS: The patient is a 28-year-old female patient, who came to the Emergency Room again complaining chest pain mostly in the lower chest radiating to both sides under her breast. She also complained to have vomiting and generalized abdominal pain. Apparently, she is known to have as she has frequent visits to the Emergency Room for frequent DKAs, polysubstance abuse, noncompliance, gastroparesis, and cyclic vomiting. She was seen in the Emergency Room and was extensively investigated. Her EKG showed that she was in sinus rhythm with a heart rate of 90 beats per minute nonspecific total abnormality anterolaterally area, but no findings consistent with acute ST segment elevation myocardial infarction. She has had lab work and multiple imaging studies. Her CBC was essentially unremarkable. Her chemistry was also unremarkable. She was not actually in DKA. Her prothrombin time was normal as well as INR and aPTT. Her D-dimer was slightly elevated at 0.77. Urinalysis was unremarkable. Urine test was negative. Her toxic screen was positive for opiates. She has had acute abdomen series, which showed that the patient has no acute cardiopulmonary abnormality, no radiographic evidence of bowel obstruction or pneumoperitoneum. Given the elevated D-dimer, we did bilateral lower extremity Doppler ultrasound, which showed no evidence of DVT in the bilateral lower extremities. Abdominal ultrasound was also unremarkable, showed that she has mild dilatation of the common bile duct. No cholelithiasis or sonographic evidence of acute cholecystitis. The patient was admitted for further evaluation and treatment. PAST MEDICAL HISTORY: Significant for poorly controlled type 1 diabetes mellitus, noncompliance with medication. She has diabetic gastroparesis, multiple admissions for diabetic ketoacidosis. She has peripheral neuropathy, polysubstance abuse including methamphetamine. PAST SURGICAL HISTORY: Significant for Port-A-Cath placement and removal. Also, incision and drainage of left axillary abscess and multiple EGDs and gastric emptying study. FAMILY HISTORY: Unremarkable. SOCIAL HISTORY: She is single, lives with her sister and [id number]. She does not smoke and said that she is clean now for almost 8-month according to her, although her toxic screen this morning was positive for opiates. ALLERGIES: She is allergic to ADHESIVE TAPE and ACETAMINOPHEN. MEDICATIONS: She continues to be on her Humalog insulin as per insulin sliding scale. She is also on her Levemir insulin 20 units twice a day. She continues to be on ranitidine 150 mg twice a day, NovoLog insulin as insulin sliding scale and Levemir insulin 20 units twice a day together with omeprazole and metoclopramide. PHYSICAL EXAMINATION: GENERAL: On arrival to the Emergency Room, she looked well and was clearly in no apparent respiratory distress. No pallor, jaundice, cyanosis, or thyromegaly. No jugular venous distention. No limb edema. VITAL SIGNS: Her heart rate was 81, blood pressure was 99/66, temperature was 97.6, respiratory rate was 20, and oxygen saturation was 97%. HEAD, EYES, EARS, NOSE AND THROAT: Showed normocephalic, atraumatic. NECK: Supple. HEART: Showed normal first and second heart sounds. No gallop, rub or murmur. CHEST: Clear to auscultation. No crepitation or rhonchi. ABDOMEN: Distended, soft, nontender. NEUROLOGIC: She was awake, alert, responding appropriately. All cranial nerves intact. EXTREMITIES: She moves extremities without difficulty. She ambulates without assistance or assistive devices. LABORATORY DATA: Her lab work on admission showed a white cell count of 7200, hemoglobin 11, hematocrit 33, MCV 89 and platelet count of 349,000. Her chemistry on admission showed a serum sodium 136, potassium 4.1, chloride 101, bicarbonate 25, anion gap of 10, BUN 10, creatinine 0.5, estimated GFR was 148 mL per minute. Her glucose was 164, calcium was 8.4. Lactic acid was only 1.5 and magnesium 2. Total bilirubin, AST, ALT, alkaline phosphatase were normal. CK was 45. Her troponin was less than 0.017. Her beta natriuretic peptide was 90. Total protein was 6, albumin 3.3. Her TSH was normal at 0.534. Her urinalysis was unremarkable and essentially negative. Her urine test was negative. Her toxic screen was positive for opiates, but negative for all other drugs. Her acute abdomen series was unremarkable. Her lower extremity ultrasound showed no evidence of DVT in both lower extremities and her abdominal ultrasound was unremarkable, showed mild dilatation of the common bile duct correlation with liver enzymes recommended. No cholelithiasis or sonographic evidence of acute cholecystitis was seen. The patient was admitted to continue on her insulin sliding scale, continue with pain management, so far no obvious explanation for her severe epigastric and lower chest pain. ANAYELI FOSS MD DR: JOSÉ/regina JOB#: [id number] / [id number]
[2018-10-14 15:30] VITALS: BP 136/92
--- NOTE | 2018-10-14 15:42 | RAD ---
CTA chest with contrast 10/14/2018 Clinical indications: Shortness of breath. Chest pain, elevated d-dimer. COMPARISON: Chest radiograph 10/13/2018 TECHNIQUE: Multiple CTA images of the chest were obtained following the intravenous administration of 75 mL Omnipaque 300. MIPS were obtained of the chest. *One or more of the following individualized dose reduction techniques were utilized for this examination: 1. Automated exposure control. 2. Adjustment of the mA and/or kV according to patient size. 3. Use of iterative reconstruction technique. FINDINGS: The thoracic aorta is normal in caliber. Heart size is normal without significant pericardial effusion. No central or major segmental pulmonary arterial filling defect. No axillary, mediastinal or hilar lymphadenopathy. There is irregular soft tissue density in the anterior mediastinum consistent with residual thymic tissue. Central airways are patent. No pleural effusion, pneumothorax or focal consolidation. Limited images of the upper abdomen: Grossly unremarkable. There are no destructive osseous lesions. IMPRESSION: No CT evidence of pulmonary embolism Electronically signed by: Jeremias Silva MD (10/14/2018 3:39 PM) [facility]
[2018-10-14] MEDS ORDERED: INSULIN LISPRO 300 UNITS/3 ML INSULN.PEN. SQ SCH (17:00)
[2018-10-14] MEDS ORDERED: DEXTROSE 50% 25 GM / 50ML DISP.SYRIN. IV PRN (17:00)
--- NOTE | 2018-10-14 17:06 | EKG ---
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
[2018-10-14] MEDS ORDERED: Influenza vaccine per PROTOCOL. MC PRN (17:30)
== END 2018-10-14 17:55 | disposition home or self-care (01) | DRG 392 ==
LOC: ER 20:20 → 1 SOUTH 23:49
PROVIDERS: ADMIT Internal Medicine; ATTEND Internal Medicine
DX: K31.89 Other diseases of stomach and duodenum (principal); E10.43 Type 1 diabetes mellitus with diabetic autonomic (poly)neuropathy; R11.10 Vomiting, unspecified; K31.84 Gastroparesis; R79.1 Abnormal coagulation profile; F41.9 Anxiety disorder, unspecified; F17.210 Nicotine dependence, cigarettes, uncomplicated; D64.9 Anemia, unspecified; F11.90 Opioid use, unspecified, uncomplicated; E10.42 Type 1 diabetes mellitus with diabetic polyneuropathy; Z83.3 Family history of diabetes mellitus; Z91.14 Patient's other noncompliance with medication regimen; Z87.440 Personal history of urinary (tract) infections; Z88.8 Allergy status to other drugs, medicaments and biological substances
CPT/HCPCS: 36415; 71275; 74022; 76700; 80048; 80076; 80307; 81001; 81025; 82550; 82947; 83605; 83690; 83735; 83880; 84443; 84484; 85025; 85379; 85610; 85730; 87040; 87641; 93005; 93970; 96361; 96374; 96375; J0780; J1200; J1650; J1815; J1885; J2270; J7120; 99285-25; J7030

== ENCOUNTER 2018-10-15 16:35 | Inpatient (IN) | payer SELFPAY ==
[~2018-10-15] VITALS: Ht 170.2 cm; Wt 60.9 kg
[~2018-10-15 16:35] MED LIST changes: +HYDR-2155 PO; -HYDR-2758 PO
[2018-10-15] MEDS ORDERED: IV NORMAL SALINE 1,000ML 1,000 ML IV ONE ×3 (17:30→19:00)
[2018-10-15] MEDS ORDERED: ONDANSETRON PF 4 MG/2 ML VIAL. IV ONE (17:30)
--- NOTE | 2018-10-15 17:41 | EKG ---
[address] [address] Test Date: 2018-10-15 Test Time: 17:07:27 Pat Name: CHALO RAYMUNDO Department: Room: Gender: F Care Team Coordinator Scheduler: : 1990 Requested By: ROXY SU Order Number: [id number] Reading MD: Mik Flowers Measurements Intervals [place] Rate: 103 P: 25 CO: 120 QRS: 63 QRSD: 76 T: 48 QT: 312 QTc: 411 Interpretive Statements SINUS TACHYCARDIA OTHERWISE NORMAL ECG Electronically Signed On 10-17-2018 9:11:43 MAINTENANCE HELPER by Mik Flowers
[2018-10-15 17:42] LABS: BASO # 0.2 x10^3/uL (0.0-0.2); BASO % 3 % (0-3); EOS # 0.1 x10^3/uL (0.0-0.7); EOS % 2 % (0-3); HEMATOCRIT 41.8 % (36.0-47.0); HEMOGLOBIN 14.2 g/dL (12.0-15.5); LYMPH # 1.4 x10^3/uL (1.0-4.8); LYMPH % 26 % (24-48); MEAN CORPUSCULAR HEMOGLOBIN 30 pg (25-35); MEAN CORPUSCULAR HGB CONC 34 g/dL (31-37); MEAN CORPUSCULAR VOLUME 89 fL (79-100); MONO # 0.4 x10^3/uL (0.0-1.1); MONO % 8 % (0-9); NEUT # 3.3 x10^3uL (1.8-7.7); NEUT % 61 % (31-73); PLATELET COUNT 419 x10^3/uL (140-400); RED BLOOD COUNT 4.67 x10^6/uL (3.50-5.40); RED CELL DISTRIBUTION WIDTH 15.5 % (11.5-14.5); WHITE BLOOD COUNT 5.5 x10^3/uL (4.0-11.0)
--- NOTE | 2018-10-15 17:50 | ED.ADGEN ---
Past History Past Medical History: Anxiety, Diabetes, UTI, Other Additional Past Medical Histor: pt reports several admissions for "high blood sugar" Past Surgical History: Other Smoking: Less than 1pk/day Alcohol Use: None Drug Use: Methamphetamine Adult General Chief Complaint Chief Complaint ". My chest hurts so bad.. I got out... and started vomiting again.. and now pain is under both breasts.. here in center hurts so bad..." HPI HPI Patient is a 28 year old female who presents with above hx and resumption of her cyclic vomiting and chest pain. Pt. admitted previously for similar presentation. Pt. known to ED staff for frequent ED visits and Admits. Pt. Hx. of past polysubstance abuse, non-compliance, cyclic vomiting, gastroparesis, chronic pain, DM, DKA. Currently follows at [facility]. Pt. presents with reports she has more CP than previous admit. Pt. does continue to smoke. Today pt. more tachycardia and appears more dehydrated., Drug screen neg. for Meth yesterday and today (Normally her drug of choice). Pt. currently dry heaving and rolling in the bed with complaints of chest pain and abd. pain. Review of Systems Review of Systems Constitutional: Denies fever or chills [] Eyes: Denies change in visual acuity, redness, or eye pain [] HENT: Denies nasal congestion or sore throat [] Respiratory: Denies cough or shortness of breath [] Cardiovascular: No additional information not addressed in HPI [] GI: Complaints of epigastric abdominal pain, nausea, vomiting,. Denies bloody stools or diarrhea [] : Denies dysuria or hematuria [] Musculoskeletal: Denies back pain or joint pain [] Integument: Denies rash or skin lesions [] Neurologic: Denies headache, focal weakness or sensory changes [] Endocrine: Hx. of polyuria All other systems were reviewed and found to be within normal limits, except as documented in this note. Family History Family History DM Current Medications Current Medications Current Medications Medications (Trade) Dose Ordered Sig/Chevy Start Time Stop Time Status Last Admin Dose Admin Diphenhydramine HCl (Benadryl) 25 mg 1X ONCE 10/15/18 18:00 10/15/18 18:01 DC 10/15/18 18:19 25 MG Famotidine (Pepcid) 20 mg 1X ONCE 10/15/18 18:00 10/15/18 18:01 DC 10/15/18 18:19 20 MG Insulin Human Regular (HumuLIN R VIAL) 10 unit 1X ONCE 10/15/18 19:00 10/15/18 19:01 DC Insulin Human Regular 150 unit/ Sodium Chloride 151.5 ml @ 0 mls/hr 1X ONCE 10/15/18 19:00 10/15/18 19:11 DC Ketorolac Tromethamine (Toradol 15mg Vial) 15 mg PRN QID PRN 10/15/18 19:00 10/20/18 18:59 10/16/18 07:51 15 MG Ketorolac Tromethamine (Toradol Im) 60 mg 1X ONCE 10/15/18 18:00 10/15/18 18:01 DC 10/15/18 18:13 60 MG Lactated Ringer's 1,000 ml @ 160 mls/hr Q6H15M 10/15/18 19:00 10/16/18 06:27 160 MLS/HR Magnesium Hydroxide (Milk Of Magnesia) 2,400 mg 1X ONCE 10/15/18 18:00 10/15/18 18:01 DC 10/15/18 18:19 2,400 MG Morphine Sulfate (Morphine 10mg Syringe) 5 mg PRN BID PRN 10/15/18 19:45 Multivitamins/ Minerals 10 ml/ Folic Acid 1 mg/ Thiamine HCl 100 mg/Lactated Ringer's 1,011.2 ml @ 1,000 mls/ hr 1X ONCE 10/15/18 19:00 10/15/18 20:00 DC 10/15/18 21:49 1,000 MLS/HR Ondansetron HCl (Zofran) 4 mg 1X ONCE 10/15/18 17:30 10/15/18 17:31 DC 10/15/18 17:30 4 MG Prochlorperazine Edisylate (Compazine) 10 mg PRN QID PRN 10/15/18 19:00 Sodium Chloride 1,000 ml @ 1,000 mls/hr 1X ONCE 10/15/18 19:00 10/15/18 19:59 DC 10/15/18 23:16 1,000 MLS/HR Allergies Allergies Allergies Coded Allergies Type Severity Reaction Last Updated Verified acetaminophen Allergy Intermediate HIVES 01/18/18 Yes adhesive tape Allergy Intermediate 01/18/18 Yes Physical Exam Physical Exam Constitutional: In acute distress, non-toxic appearance. [] HENT: Normocephalic, atraumatic, bilateral external ears normal, oropharynx dry , no oral exudates, nose normal. [] Eyes: PERRLA, EOMI, conjunctiva normal, no discharge. [] Neck: Normal range of motion, no tenderness, supple, no stridor. [] Cardiovascular:Tachycardia Heart rate regular rhythm, no murmur [] Lungs & Thorax: Bilateral breath sounds equal at apex with few scattered wheezes on auscultation [] Abdomen: Bowel sounds decreased, soft, epigastric tenderness, no masses, no pulsatile masses. [] Skin: Warm,diaphoretic, no erythema, no rash. Poor turgor. Back: No tenderness, no CVA tenderness. [] Extremities: No tenderness, no cyanosis, no clubbing, ROM intact, no edema. [] Neurologic: Alert and oriented X 3, normal motor function, normal sensory function, no focal deficits noted. [] Psychologic: Affect crying, anxious, judgement normal, mood depressed. Current Patient Data Lab Results Laboratory Tests Test 10/15/18 15:10 10/15/18 17:20 10/15/18 17:30 10/15/18 19:23 White Blood Count 5.5 x10^3/uL (4.0-11.0) Red Blood Count 4.67 x10^6/uL (3.50-5.40) Hemoglobin 14.2 g/dL (12.0-15.5) # Hematocrit 41.8 % (36.0-47.0) # Mean Corpuscular Volume 89 fL (79-100) Mean Corpuscular Hemoglobin 30 pg (25-35) Mean Corpuscular Hemoglobin Concent 34 g/dL (31-37) Red Cell Distribution Width 15.5 % (11.5-14.5) H Platelet Count 419 x10^3/uL (140-400) H Neutrophils (%) (Auto) 61 % (31-73) Lymphocytes (%) (Auto) 26 % (24-48) Monocytes (%) (Auto) 8 % (0-9) Eosinophils (%) (Auto) 2 % (0-3) Basophils (%) (Auto) 3 % (0-3) Neutrophils # (Auto) 3.3 x10^3uL (1.8-7.7) Lymphocytes # (Auto) 1.4 x10^3/uL (1.0-4.8) Monocytes # (Auto) 0.4 x10^3/uL (0.0-1.1) Eosinophils # (Auto) 0.1 x10^3/uL (0.0-0.7) Basophils # (Auto) 0.2 x10^3/uL (0.0-0.2) Sodium Level 129 mmol/L (136-145) L Potassium Level 4.9 mmol/L (3.5-5.1) Chloride Level 90 mmol/L (98-107) L Carbon Dioxide Level 24 mmol/L (21-32) Anion Gap 15 (6-14) H Blood Urea Nitrogen 13 mg/dL (7-20) Creatinine 0.7 mg/dL (0.6-1.0) Estimated GFR (Cockcroft-Gault) 100.4 BUN/Creatinine Ratio 19 (6-20) Glucose Level 393 mg/dL (70-99) H Calcium Level 9.7 mg/dL (8.5-10.1) Total Bilirubin 0.7 mg/dL (0.2-1.0) Aspartate Amino Transferase (AST) 24 U/L (15-37) Alanine Aminotransferase (ALT) 54 U/L (14-59) Alkaline Phosphatase 102 U/L (46-116) Total Protein 8.1 g/dL (6.4-8.2) Albumin 4.3 g/dL (3.4-5.0) Albumin/Globulin Ratio 1.1 (1.0-1.7) Lipase 68 U/L (73-393) L Urine Collection Type Unknown Urine Color Straw Urine Clarity Cloudy Urine pH 7.5 Urine Specific [place] 1.015 Urine Protein Neg (NEG-TRACE) Urine Glucose (UA) >=1000 mg/dL (NEG) Urine Ketones (Stick) >=160 mg/dL (NEG) Urine Blood Neg (NEG) Urine Nitrite Neg (NEG) Urine Bilirubin Neg (NEG) Urine Urobilinogen Dipstick 0.2 mg/dL (0.2 mg/dL) Urine Leukocyte Esterase Neg (NEG) Urine RBC 1-2 /HPF (0-2) Urine WBC 1-4 /HPF (0-4) Urine Squamous Epithelial Cells Many /LPF Urine Bacteria 0 /HPF (0-FEW) Urine Opiates Screen Pos (NEG) Urine Methadone Screen Neg (NEG) Urine Barbiturates Neg (NEG) Urine Phencyclidine Screen Neg (NEG) Urine Amphetamine/Methamphetamine Neg (NEG) Urine Benzodiazepines Screen Neg (NEG) Urine Cocaine Screen Neg (NEG) Urine Cannabinoids Screen Neg (NEG) Urine Ethyl Alcohol Neg (NEG) PTT 22 SEC (23-33) L D-Dimer (Darlene) 0.67 mg/L (0.00-0.50) H Troponin I Quantitative < 0.017 ng/mL (0-0.055) Amylase Level 43 U/L (25-115) Lactic Acid Level 1.0 mmol/L (0.4-2.0) EKG EKG Dictation of EKG shows a sinus tachycardia in 103 bpm. Otherwise normal EKG with no findings acute STEMI with contralateral changes.[] Radiology/Procedures Radiology/Procedures My interpretation of chest x-ray shows no acute cardiopulmonary findings. No free air in the diaphragm.. Nonspecific bowel gas pattern. Does have stool in colon. Still has surgical clips or calcified area with an lower right abdomen present on previous films. Course & Med Decision Making Course & Med Decision Making Pertinent Labs and Imaging studies reviewed. (See chart for details)- Patient admitted for IV fluids, Accu-Cheks, insulin, and treatment of her cyclic vomiting to Dr Aparna Pereira [] Final Impression Final Impression 1. Chest Pain[] 2. DM 393 3. DKA 4. Hyponatremia 129 5. Thrombocytosis 415 6. Cyclic Vomiting 7. Gastroparesis Dragon Disclaimer Dragon Disclaimer This electronic medical record was generated, in whole or in part, using a voice recognition dictation system. YELENA HENRY MD Oct 15, 2018 17:50
[2018-10-15 17:53] LABS: ALBUMIN 4.3 g/dL (3.4-5.0); ALBUMIN/GLOBULIN RATIO 1.1 (1.0-1.7); CALCIUM 9.7 mg/dL (8.5-10.1); CREATININE 0.7 mg/dL (0.6-1.0); GFR 100.4; POTASSIUM 4.9 mmol/L (3.5-5.1); TOTAL BILIRUBIN 0.7 mg/dL (0.2-1.0); TOTAL PROTEIN 8.1 g/dL (6.4-8.2)
[2018-10-15] MEDS ORDERED: FAMOTIDINE 20 MG TABLET PO ONE (18:00)
[2018-10-15] MEDS ORDERED: MAGNESIUM HYDROXIDE 2,400 MG/30 ML ORAL.SUSP. PO ONE (18:00)
[2018-10-15] MEDS ORDERED: diphenhydrAMINE HCL 25 MG CAPSULE PO ONE (18:00)
[2018-10-15] MEDS ORDERED: KETOROLAC 60 MG/2 ML VIAL. IM ONE (18:00)
[2018-10-15] MEDS ORDERED: PROCHLORPERAZINE 10 MG/2 ML VIAL. IM ONE (18:00)
[2018-10-15 18:23] LABS: AMPHETAMINE/METHAMPHETAMINE NEG (NEG); BARBITURATES NEG (NEG); BENZODIAZEPINES NEG (NEG); CANNABINOIDS NEG (NEG); COCAINE NEG (NEG); METHADONE NEG (NEG); OPIATES POS (NEG); PHENCYCLIDINE NEG (NEG)
[2018-10-15 18:35] LABS: BACTERIA,URINE 0 /HPF (0-FEW); BILIRUBIN,URINE NEG (NEG); CLARITY,URINE CLOUDY; COLOR,URINE STRAW; GLUCOSE,URINE >=1000 mg/dL (NEG); NITRITE,URINE NEG (NEG); SQUAMOUS EPITHELIAL CELL,UR MANY /LPF; UROBILINOGEN,URINE 0.2 mg/dL (0.2 mg/dL)
[2018-10-15] MEDS ORDERED: INSULIN REGULAR VIAL 150 UNIT in 0.9 % SODIUM CHLORIDE 150ML 150 ML IV ONE (19:00)
[2018-10-15] MEDS ORDERED: PROCHLORPERAZINE 10 MG/2 ML VIAL. IM PRN (19:00)
[2018-10-15] MEDS ORDERED: MVI, ADULT NO.4 WITH VIT K 10 ML, FOLIC ACID SYRINGE for ER 1 MG, THIAMINE INJ 100 MG i... IV ONE ×4 (19:00)
[2018-10-15] MEDS ORDERED: INSULIN REGULAR 100 UNIT/ML 3ML VIAL. IV ONE (19:00)
[2018-10-15] MEDS ORDERED: MORPHINE SULFATE 10 MG/ML SYRINGE. SQ PRN (19:45)
[2018-10-15 21:08] VITALS: BP 98/67
--- NOTE | 2018-10-15 21:29 | RAD ---
ABDOMEN SUPINE UPRIGHT, CHEST PA LATERAL Technique: PA and lateral views of the chest were obtained. Clinical History: VOMITING, CHEST PAIN Comparison: October 13, 2018. Findings: The heart and pulmonary vasculature appear within normal limits. The lungs are clear. The pleural margins are clear. Impression: No acute chest process is seen. End impression 2 view abdomen pelvis AP upright and supine view There is air and stool scattered throughout the colon is a paucity small bowel gas. There is no free air. IMPRESSION: Constipation. Electronically signed by: Compa Meier III, MD (10/15/2018 9:25 PM) [facility]
[2018-10-15] MEDS ORDERED: DEXTROSE 50% 25 GM / 50ML DISP.SYRIN. IV PRN (22:15)
[2018-10-15] MEDS: KETOROLAC 15 MG/ML VIAL. IM PRN (22:30)
[2018-10-15] MEDS: FAMOTIDINE 20 MG TABLET PO SCH (22:57)
[2018-10-15] MEDS: MAGNESIUM HYDROXIDE 2,400 MG/30 ML ORAL.SUSP. PO SCH (22:57)
[2018-10-15] MEDS: METOCLOPRAMIDE 10 MG TABLET PO SCH (23:15)
[2018-10-15] MEDS: INSULIN GLARGINE 300 UNITS/3 ML INSULN.PEN. SQ SCH (23:23)
[2018-10-16] MEDS: IV RINGERS SOLUTION,LACTATED 1,000 ML IV SCH ×4 (00:25→14:35)
[2018-10-16 04:26] VITALS: BP 132/98
[2018-10-16 04:36] LABS: BASO # 0.1 x10^3/uL (0.0-0.2); BASO % 2 % (0-3); EOS # 0.1 x10^3/uL (0.0-0.7); EOS % 2 % (0-3); HEMATOCRIT 31.5 % (36.0-47.0); HEMOGLOBIN 10.7 g/dL (12.0-15.5); LYMPH # 2.4 x10^3/uL (1.0-4.8); LYMPH % 45 % (24-48); MEAN CORPUSCULAR HEMOGLOBIN 31 pg (25-35); MEAN CORPUSCULAR HGB CONC 34 g/dL (31-37); MEAN CORPUSCULAR VOLUME 89 fL (79-100); MONO # 0.5 x10^3/uL (0.0-1.1); MONO % 9 % (0-9); NEUT # 2.3 x10^3uL (1.8-7.7); NEUT % 42 % (31-73); PLATELET COUNT 348 x10^3/uL (140-400); RED BLOOD COUNT 3.52 x10^6/uL (3.50-5.40); RED CELL DISTRIBUTION WIDTH 15.2 % (11.5-14.5); WHITE BLOOD COUNT 5.4 x10^3/uL (4.0-11.0)
[2018-10-16 04:47] LABS: CALCIUM 8.1 mg/dL (8.5-10.1); CREATININE 0.6 mg/dL (0.6-1.0); GFR 119.9; POTASSIUM 4.2 mmol/L (3.5-5.1)
[2018-10-16] MEDS: KETOROLAC 15 MG/ML VIAL. IM PRN (07:51)
[2018-10-16] MEDS: FAMOTIDINE 20 MG TABLET PO SCH (08:29)
[2018-10-16] MEDS: METOCLOPRAMIDE 10 MG TABLET PO SCH ×2 (08:29→13:06)
[2018-10-16] MEDS: MAGNESIUM HYDROXIDE 2,400 MG/30 ML ORAL.SUSP. PO SCH (08:29)
[2018-10-16] MEDS: INSULIN LISPRO 300 UNITS/3 ML INSULN.PEN. SQ SCH ×2 (08:34→13:08)
[2018-10-16] MEDS: INSULIN GLARGINE 300 UNITS/3 ML INSULN.PEN. SQ SCH (09:00)
[2018-10-16 10:44] VITALS: BP 147/89
[2018-10-16 14:46] VITALS: BP 117/80
--- NOTE | 2018-10-16 15:17 | SSS ---
ADMIT DATE: 10/16/2018 HISTORY OF PRESENT ILLNESS: The patient is a 28-year-old female patient, who yet again came complaining of chest pain retrosternal, radiating around below her breasts bilaterally. She also said she had vomiting. She was extensively investigated in the Emergency Room. She has had 3 sets of cardiac enzymes that were negative. Her EKG showed that she was in sinus tachycardia with heart rate 103, otherwise normal EKG with no finding of acute ST segment elevation myocardial infarction. Her chest x-ray showed no acute cardiopulmonary finding. No free air in diaphragm and nonspecific bowel gas pattern. She was admitted. We did do 2 sets of cardiac enzymes that were also negative. She has had recently only [address] scan of the chest with PE protocol, which showed no evidence of any pulmonary emboli. The thoracic aorta is normal in caliber. Heart size was within normal limit with no significant pericardial effusion. No central major segmental pulmonary arterial filling defect. No axillary, mediastinal, or hilar lymphadenopathy. There is regular soft tissue density in the anterior mediastinum consistent with residual thymic tissue. Central airways are patent. No pleural effusion, pneumothorax, or focal consolidation. Limited images of the upper abdomen are grossly unremarkable. We did ultrasound of her abdomen, which showed that mild dilatation of the common bile duct; however, the gallbladder is normal in size and configuration without wall thickening or pericholecystic fluid or cholelithiasis. There is mild extrahepatic biliary ductal dilatation with the common bile duct measuring about 7 mm. Spleen is normal in size measuring 9.5 cm in length. Left kidney measures 12.6 cm in length with no hydronephrosis or abnormal perinephric fluid collection. We did Doppler ultrasound of both lower extremities, which showed that there is no DVTs in the bilateral common femoral, femoral, popliteal veins they are widely patent with normal color Doppler imaging. She had acute abdomen series, which showed no radiographic evidence of bowel obstruction or peritoneum. When I examined her this afternoon, she was sitting comfortably, in no apparent distress. She does not seem to be clinically in any pain; however, she continued to complain that she has this central pain and also been below her breast that is relieved that time with Mylanta, but only short-lived. PHYSICAL EXAMINATION: VITAL SIGNS: Her heart rate was 88, blood pressure was 147/89, temperature was 98.3, respiratory rate 20, and oxygen saturation was 98% on room air. HEAD, EYES, EARS, NOSE AND THROAT: Showed normocephalic, atraumatic. NECK: Supple. HEART: Showed normal first and second heart sounds with no gallop, rub or murmur. CHEST: Clear to auscultation. No crepitation or rhonchi. ABDOMEN: Distended, soft, nontender. No guarding or rigidity. No organomegaly. All hernial orifices intact. Bowel sounds normal. NEUROLOGIC: She is awake, alert, responding appropriately. All cranial nerves intact. EXTREMITIES: She moves extremities without difficulty. LABORATORY DATA: Showed a white cell count 5400, hemoglobin 11, hematocrit 32, MCV 89 and platelet count 348,000. Her chemistry showed that on admission her serum sodium was 129, potassium 4.9, chloride 99, bicarbonate 24, anion gap of 15, BUN 13, creatinine 0.7, estimated GFR was 100, glucose was 393, calcium was 9.7. Total bilirubin, AST, ALT, alkaline phosphatase were normal. Total protein was 8.1, albumin 4.3 and serum lipase is normal at 68, done twice. Lactic acid was 1.5. Today's labs showed her sodium has normalized with a serum sodium 136, potassium 4.2, chloride 102, bicarbonate 27, anion gap of 7, BUN 11, creatinine 0.6, estimated GFR was 119, glucose was 213 and calcium was 8.1. She has 4 sets of cardiac enzymes showed all troponin to be less than 0.017. I explained to the patient that this is probably gastroesophageal reflux disease and that she should continue with her metoclopramide, her omeprazole. She should use the middle Mylanta 15-30 mL every 4 hours if need be. Her head of the bed should be elevated and should not avoid taking any food for at least 2-3 hours before going to sleep and should avoid alcohol and cigarette smoking as the relaxant gastroesophageal reflux disease and make the acid reflux worse. ANAYELI FOSS MD DR: JOSÉ/regina JOB#: [id number] / [id number]
== END 2018-10-16 17:00 | disposition home or self-care (01) | DRG 391 ==
LOC: ER 16:35 → 1 SOUTH 19:45
PROVIDERS: ADMIT Internal Medicine; ATTEND Internal Medicine
DX: K21.9 Gastro-esophageal reflux disease without esophagitis (principal); E11.10 Type 2 diabetes mellitus with ketoacidosis without coma; E87.1 Hypo-osmolality and hyponatremia; E86.0 Dehydration; F41.9 Anxiety disorder, unspecified; G89.29 Other chronic pain; D47.3 Essential (hemorrhagic) thrombocythemia; E11.43 Type 2 diabetes mellitus with diabetic autonomic (poly)neuropathy; F17.200 Nicotine dependence, unspecified, uncomplicated; Z83.3 Family history of diabetes mellitus; Z91.19 Patient's noncompliance with other medical treatment and regimen; Z79.899 Other long term (current) drug therapy; Z87.440 Personal history of urinary (tract) infections; K31.84 Gastroparesis
CPT/HCPCS: 36415; 71046; 74021; 80048; 80053; 80307; 81001; 82150; 82947; 83605; 83690; 84484; 85025; 85379; 85730; 93005; J0780; J1815; J1885; J2405; J3010; J7120; J8597; Q0163; J7030

== ENCOUNTER 2018-10-21 12:04 | Emergency (ER) | payer SELFPAY ==
[~2018-10-21] VITALS: Ht 170.2 cm; Wt 61.4 kg
[2018-10-21 12:32] LABS: BASO % 1 % (0-3); EOS # 0.1 x10^3/uL (0.0-0.7); EOS % 2 % (0-3); HEMATOCRIT 40.1 % (36.0-47.0); HEMOGLOBIN 13.3 g/dL (12.0-15.5); LYMPH # 1.9 x10^3/uL (1.0-4.8); LYMPH % 33 % (24-48); MEAN CORPUSCULAR HEMOGLOBIN 30 pg (25-35); MEAN CORPUSCULAR HGB CONC 33 g/dL (31-37); MEAN CORPUSCULAR VOLUME 90 fL (79-100); MONO # 0.5 x10^3/uL (0.0-1.1); MONO % 8 % (0-9); NEUT # 3.2 x10^3uL (1.8-7.7); NEUT % 56 % (31-73); PLATELET COUNT 355 x10^3/uL (140-400); RED BLOOD COUNT 4.48 x10^6/uL (3.50-5.40); RED CELL DISTRIBUTION WIDTH 15.4 % (11.5-14.5); WHITE BLOOD COUNT 5.7 x10^3/uL (4.0-11.0)
--- NOTE | 2018-10-21 12:38 | PHYS DOC ---
Past History Past Medical History: Anxiety, Diabetes, UTI, Other Additional Past Medical Histor: pt reports several admissions for "high blood sugar" Past Surgical History: Other Smoking: Less than 1pk/day Alcohol Use: None Drug Use: Methamphetamine Adult General Chief Complaint Chief Complaint: GI PROBLEM HPI HPI 28-year-old female returns emergency room with continued symptoms of GERD. Patient states that she woke up this morning with a burning sensation in her lower esophagus. She describes as feeling like razor blades. She recently admitted for this problem and diagnosed with GERD. She is placed on medications. She took all these medications this morning and they have not helped. She vomited after attempting to take Mylanta. She's had no other recent vomiting. She denies fever or chills. Review of Systems Review of Systems Constitutional: Denies fever or chills [] Eyes: Denies change in visual acuity, redness, or eye pain [] HENT: Denies nasal congestion or sore throat [] Respiratory: Denies cough or shortness of breath [] Cardiovascular: No additional information not addressed in HPI [] GI: Upper abdominal pain, vomiting[] : Denies dysuria or hematuria [] Musculoskeletal: Denies back pain or joint pain [] Integument: Denies rash or skin lesions [] Neurologic: Denies headache, focal weakness or sensory changes [] Endocrine: Denies polyuria or polydipsia [] All other systems were reviewed and found to be within normal limits, except as documented in this note. Current Medications Current Medications Current Medications Medications (Trade) Dose Ordered Sig/Chevy Start Time Stop Time Status Last Admin Dose Admin Multi-Ingredient Mouthwash/Gargle (Gi Cocktail) 20 ml 1X ONCE 10/21/18 12:50 10/21/18 12:51 Ondansetron HCl (Zofran) 4 mg 1X ONCE 10/21/18 12:50 10/21/18 12:51 Allergies Allergies Allergies Coded Allergies Type Severity Reaction Last Updated Verified acetaminophen Allergy Intermediate HIVES 01/18/18 Yes adhesive tape Allergy Intermediate 01/18/18 Yes Physical Exam Physical Exam Constitutional: Well developed, well nourished, no acute distress, non-toxic appearance. [] HENT: Normocephalic, atraumatic, bilateral external ears normal, oropharynx moist, no oral exudates, nose normal. [] Eyes: PERRLA, EOMI, conjunctiva normal, no discharge. [] Neck: Normal range of motion, no tenderness, supple, no stridor. [] Cardiovascular:Heart rate regular rhythm, no murmur [] Lungs & Thorax: Bilateral breath sounds clear to auscultation [] Abdomen: Bowel sounds normal, soft, no tenderness, no masses, no pulsatile masses. [] Skin: Warm, dry, no erythema, no rash. [] Back: No tenderness, no CVA tenderness. [] Extremities: No tenderness, no cyanosis, no clubbing, ROM intact, no edema. [] Neurologic: Alert and oriented X 3, normal motor function, normal sensory function, no focal deficits noted. [] Psychologic: Affect normal, judgement normal, mood normal. [] Current Patient Data Lab Results Laboratory Tests Test 10/21/18 12:17 White Blood Count 5.7 x10^3/uL (4.0-11.0) Red Blood Count 4.48 x10^6/uL (3.50-5.40) Hemoglobin 13.3 g/dL (12.0-15.5) Hematocrit 40.1 % (36.0-47.0) Mean Corpuscular Volume 90 fL (79-100) Mean Corpuscular Hemoglobin 30 pg (25-35) Mean Corpuscular Hemoglobin Concent 33 g/dL (31-37) Red Cell Distribution Width 15.4 % (11.5-14.5) H Platelet Count 355 x10^3/uL (140-400) Neutrophils (%) (Auto) 56 % (31-73) Lymphocytes (%) (Auto) 33 % (24-48) Monocytes (%) (Auto) 8 % (0-9) Eosinophils (%) (Auto) 2 % (0-3) Basophils (%) (Auto) 1 % (0-3) Neutrophils # (Auto) 3.2 x10^3uL (1.8-7.7) Lymphocytes # (Auto) 1.9 x10^3/uL (1.0-4.8) Monocytes # (Auto) 0.5 x10^3/uL (0.0-1.1) Eosinophils # (Auto) 0.1 x10^3/uL (0.0-0.7) Basophils # (Auto) 0.0 x10^3/uL (0.0-0.2) EKG EKG [] Radiology/Procedures Radiology/Procedures [] Course & Med Decision Making Course & Med Decision Making Pertinent Labs and Imaging studies reviewed. (See chart for details) The patient's labs are remarkable for an elevated glucose. I will give her IV fluids and insulin as appropriate. We will give her GI cocktail. I discussed the patient with Dr. Pereira and he has requested [facility] for she can be seen by GI tomorrow. The patient is accepted by Dr. Pereira for transfer. Patient is in agreement with this plan. [] Dragon Disclaimer Dragon Disclaimer This electronic medical record was generated, in whole or in part, using a voice recognition dictation system. Departure Departure: Referrals: PCP,BAY (PCP) ROXY SU DO Oct 21, 2018 12:38
[2018-10-21 12:48] LABS: ALBUMIN 3.9 g/dL (3.4-5.0); ALBUMIN/GLOBULIN RATIO 1.1 (1.0-1.7); CALCIUM 9.3 mg/dL (8.5-10.1); CREATININE 0.8 mg/dL (0.6-1.0); POTASSIUM 4.6 mmol/L (3.5-5.1); TOTAL BILIRUBIN 0.4 mg/dL (0.2-1.0); TOTAL PROTEIN 7.5 g/dL (6.4-8.2)
[2018-10-21] MEDS ORDERED: LIDO:MAALOX 1:1 20 ML SINGLE DOSE. PO ONE (12:50)
[2018-10-21] MEDS ORDERED: ONDANSETRON PF 4 MG/2 ML VIAL. IV ONE (12:50)
[2018-10-21 13:14] LABS: BILIRUBIN,URINE NEG (NEG); CLARITY,URINE TURBID; COLOR,URINE STRAW; GLUCOSE,URINE >=1000 mg/dL (NEG)
[2018-10-21 13:15] LABS: AMORPHOUS SEDIMENT,UR PRESENT /HPF; BACTERIA,URINE FEW /HPF (0-FEW); NITRITE,URINE NEG (NEG); RBC,URINE 0 /HPF (0-2); SQUAMOUS EPITHELIAL CELL,UR MANY /LPF; UROBILINOGEN,URINE 0.2 mg/dL (0.2 mg/dL); WBC,URINE OCC /HPF (0-4)
[2018-10-21] MEDS ORDERED: IV NORMAL SALINE 1,000ML 1,000 ML IV ONE (13:30)
[2018-10-21] MEDS ORDERED: SUCRALFATE 1 GM TABLET. PO ONE (14:30)
[2018-10-21 15:44] VITALS: BP 104/67
== END 2018-10-21 16:35 | disposition short-term general hospital (02) ==
LOC: ER 12:04
DX: E11.65 Type 2 diabetes mellitus with hyperglycemia (principal); K21.9 Gastro-esophageal reflux disease without esophagitis; F41.9 Anxiety disorder, unspecified; F17.200 Nicotine dependence, unspecified, uncomplicated; Z87.440 Personal history of urinary (tract) infections; Z88.6 Allergy status to analgesic agent; Z88.8 Allergy status to other drugs, medicaments and biological substances
CPT/HCPCS: 36415; 80053; 81001; 82947; 85025; 96361; 96374; 99283; J3010; J7030

== ENCOUNTER 2018-10-25 18:05 | Emergency (ER) | payer SELFPAY ==
[2018-10-25] MEDS ORDERED: PROCHLORPERAZINE 10 MG/2 ML VIAL. IV ONE (18:30)
[2018-10-25] MEDS ORDERED: MORPHINE SULFATE 4 MG/ML DISP.SYRIN. IV ONE (18:30)
[2018-10-25] MEDS ORDERED: IV NORMAL SALINE 1,000ML 1,000 ML IV ONE ×2 (18:30→20:00)
[2018-10-25 19:48] LABS: HEMATOCRIT 37.3 % (36.0-47.0); HEMOGLOBIN 12.6 g/dL (12.0-15.5); RED BLOOD COUNT 4.2 x10^6/uL (3.50-5.40); RED CELL DISTRIBUTION WIDTH 14.7 % (11.5-14.5); WHITE BLOOD COUNT 4.9 x10^3/uL (4.0-11.0)
[2018-10-25 20:02] LABS: ALBUMIN 3.6 g/dL (3.4-5.0); ALBUMIN/GLOBULIN RATIO 1.1 (1.0-1.7); CALCIUM 8.5 mg/dL (8.5-10.1); CREATININE 0.6 mg/dL (0.6-1.0); GFR 119.9; POTASSIUM 3.6 mmol/L (3.5-5.1); TOTAL BILIRUBIN 0.5 mg/dL (0.2-1.0)
--- NOTE | 2018-10-25 21:07 | PHYS DOC ---
Adult General Chief Complaint Chief Complaint vomiting HPI HPI 28 years old female with history of gastroparesis presented to the emergency department with nausea and vomiting she stated this afternoon associated with epigastric pain similar to her episode of gastroparesis in the past. No new acute symptoms No fever no chills no urgency no frequency no hematuria Review of Systems Review of Systems Constitutional: Denies fever or chills [] Eyes: Denies change in visual acuity, redness, or eye pain [] HENT: Denies nasal congestion or sore throat [] Respiratory: Denies cough or shortness of breath [] Cardiovascular: No additional information not addressed in HPI [] GI: Denies bloody stools or diarrhea [] : Denies dysuria or hematuria [] Musculoskeletal: Denies back pain or joint pain [] Integument: Denies rash or skin lesions [] Neurologic: Denies headache, focal weakness or sensory changes [] Endocrine: Denies polyuria or polydipsia [] All other systems were reviewed and found to be within normal limits, except as documented in this note. Current Medications Current Medications Current Medications Medications (Trade) Dose Ordered Sig/Chevy Start Time Stop Time Status Last Admin Dose Admin Morphine Sulfate (Morphine 4mg Syringe) 4 mg 1X ONCE 10/25/18 18:30 12 18:31 DC 10/25/18 18:44 4 MG Prochlorperazine Edisylate (Compazine) 10 mg 1X ONCE 18 18:30 1218 18:31 DC 18 18:44 10 MG Sodium Chloride 1,000 ml @ 1,000 mls/hr 1X ONCE 10/25/18 20:00 10/25/18 21:00 DC 10/25/18 20:14 1,000 MLS/HR Allergies Allergies Allergies Coded Allergies Type Severity Reaction Last Updated Verified acetaminophen Allergy Intermediate HIVES 01/18/18 Yes adhesive tape Allergy Intermediate 01/18/18 Yes Physical Exam Physical Exam Constitutional: Well developed, well nourished, no acute distress, non-toxic appearance. [] HENT: Normocephalic, atraumatic, bilateral external ears normal, oropharynx moist, no oral exudates, nose normal. [] Eyes: PERRLA, EOMI, conjunctiva normal, no discharge. [] Neck: Normal range of motion, no tenderness, supple, no stridor. [] Cardiovascular:Heart rate regular rhythm, no murmur [] Lungs & Thorax: Bilateral breath sounds clear to auscultation [] Abdomen: Bowel sounds normal, soft, no tenderness, no masses, no pulsatile masses. [] Skin: Warm, dry, no erythema, no rash. [] Back: No tenderness, no CVA tenderness. [] Extremities: No tenderness, no cyanosis, no clubbing, ROM intact, no edema. [] Neurologic: Alert and oriented X 3, normal motor function, normal sensory function, no focal deficits noted. [] Psychologic: Affect normal, judgement normal, mood normal. [] Current Patient Data Vital Signs Vital Signs Date Time Temp Pulse Resp B/P (MAP) Pulse Ox O2 Delivery O2 Flow Rate FiO2 10/25/18 18:44 22 100 Room Air 10/25/18 18:22 98.6 112 Lab Results Laboratory Tests Test 10/25/18 19:30 White Blood Count 4.9 x10^3/uL (4.0-11.0) Red Blood Count 4.20 x10^6/uL (3.50-5.40) Hemoglobin 12.6 g/dL (12.0-15.5) Hematocrit 37.3 % (36.0-47.0) Mean Corpuscular Volume 89 fL (79-100) Mean Corpuscular Hemoglobin 30 pg (25-35) Mean Corpuscular Hemoglobin Concent 34 g/dL (31-37) Red Cell Distribution Width 14.7 % (11.5-14.5) H Platelet Count 297 x10^3/uL (140-400) Sodium Level 139 mmol/L (136-145) Potassium Level 3.6 mmol/L (3.5-5.1) Chloride Level 100 mmol/L (98-107) Carbon Dioxide Level 24 mmol/L (21-32) Anion Gap 15 (6-14) H Blood Urea Nitrogen 25 mg/dL (7-20) H Creatinine 0.6 mg/dL (0.6-1.0) Estimated GFR (Cockcroft-Gault) 119.9 BUN/Creatinine Ratio 42 (6-20) H Glucose Level 167 mg/dL (70-99) H Calcium Level 8.5 mg/dL (8.5-10.1) Total Bilirubin 0.5 mg/dL (0.2-1.0) Aspartate Amino Transferase (AST) 13 U/L (15-37) L Alanine Aminotransferase (ALT) 18 U/L (14-59) Alkaline Phosphatase 81 U/L (46-116) Total Protein 7.0 g/dL (6.4-8.2) Albumin 3.6 g/dL (3.4-5.0) Albumin/Globulin Ratio 1.1 (1.0-1.7) EKG EKG [] Radiology/Procedures Radiology/Procedures [] Course & Med Decision Making Course & Med Decision Making Pertinent Labs and Imaging studies reviewed. (See chart for details) [] Final Impression Final Impression During patient to emergency room stay she did not vomit she received 2 L of IV fluids is able to drink and keep fluids down[] Problems: (1) Nausea and vomiting Qualifiers: Qualified Codes: R11.2 - Nausea with vomiting, unspecified Dragon Disclaimer Dragon Disclaimer This electronic medical record was generated, in whole or in part, using a voice recognition dictation system. ZA LO MD Oct 25, 2018 21:07
[2018-10-25] MEDS ORDERED: ONDA4TAB7 PO (21:08)
[2018-10-25 21:48] VITALS: BP 102/49
== END 2018-10-25 22:10 | disposition home or self-care (01) ==
LOC: ER 18:05
DX: R11.2 Nausea with vomiting, unspecified (principal); R10.13 Epigastric pain; Z88.6 Allergy status to analgesic agent; Z88.8 Allergy status to other drugs, medicaments and biological substances
CPT/HCPCS: 36415; 80053; 85027; 96361; 96374; 96375; 99283; J0780; J2270; J7030

== ENCOUNTER 2019-02-20 20:04 | Observation (INO) | payer OTHER ==
[~2019-02-20] VITALS: Ht 170.2 cm; Wt 68.1 kg
[~2019-02-20 20:04] MED LIST changes: +ONDA4TAB7 PO
[2019-02-20] MEDS ORDERED: IV RINGERS SOLUTION,LACTATED 1,000 ML IV SCH (20:10)
--- NOTE | 2019-02-20 20:10 | ED.ADGEN ---
Past History Past Medical History: Anxiety, Diabetes, GERD, UTI, Other Additional Past Medical Histor: pt reports several admissions for "high blood sugar" Past Surgical History: Other Smoking: Less than 1pk/day Alcohol Use: None Drug Use: None, Methamphetamine Adult General Chief Complaint Chief Complaint ..." I was seen at [facility] earlier this week. they put me on Tamiflu...but I am not any better.. for flu symptoms..." HPI HPI Patient is a 28 year old female who presents with above hx and complaints influenza. Hx. fever, sore throat, nausea, vomiting, myalgia, arthralgia, and malaises. Pt know to ED for past poorly controlled DM with frequent episodes of DKA, polysubstance abuse and dehydration. Pt. reports generalized nausea, myalgia, arthralgia, malaise, and fevers have not improved on Tamiflu. . Patient denies any current drug abuse. Patient still does smoke. No recent travel. No history immunosuppression other than her uncontrolled diabetes. Patient currently following at [facility] for her medical care. Review of Systems Review of Systems Constitutional: History fever or chills [] Eyes: Denies change in visual acuity, redness, or eye pain [] HENT: Denies nasal congestion Hx. of sore throat [] Respiratory: Denies cough or shortness of breath [] Cardiovascular: No additional information not addressed in HPI [] GI: History nausea. Denies current, vomiting, bloody stools or diarrhea [] : Denies dysuria or hematuria [] Musculoskeletal: Complaints of generalized muscle and joint discomfort Integument: Denies rash or skin lesions [] Neurologic: Denies headache, focal weakness or sensory changes [] Endocrine: Denies polyuria or polydipsia [] All other systems were reviewed and found to be within normal limits, except as documented in this note. Family History Family History Diabetes Current Medications Current Medications Current Medications Medications (Trade) Dose Ordered Sig/Chevy Start Time Stop Time Status Last Admin Dose Admin Lactated Ringer's 1,000 ml @ 1,000 mls/hr Q1H 02/20/19 20:10 02/20/19 21:09 DC 02/20/19 20:21 1,000 MLS/HR Allergies Allergies Allergies Coded Allergies Type Severity Reaction Last Updated Verified acetaminophen Allergy Intermediate HIVES 01/18/18 Yes adhesive tape Allergy Intermediate 01/18/18 Yes Physical Exam Physical Exam Constitutional: Moderately acute distress, non-toxic appearance. [] HENT: Normocephalic, atraumatic, bilateral external ears normal, oropharynx dry , injected, no oral exudates, nose clear rhinorrhea. Eyes: PERRLA, EOMI, conjunctiva normal, no discharge. [] Neck: Normal range of motion, no tenderness, supple, no stridor. [] Cardiovascular: bradycardia Heart rate regular rhythm, no murmur [] Lungs & Thorax: Bilateral breath sounds equal apex with scattered wheezes on auscultation [] Abdomen: Bowel sounds decreased, soft, no tenderness, no masses, no pulsatile masses. [] Skin: Warm, dry, no erythema, no rash. [] Tattoos. Back: No tenderness, no CVA tenderness. [] Extremities: No tenderness, no cyanosis, no clubbing, ROM intact, no edema. [] Neurologic: Alert and oriented X 3, normal motor function, normal sensory function, no focal deficits noted. [] Psychologic: Affect anxious, judgement normal, mood normal. [] Current Patient Data Vital Signs Vital Signs Date Time Temp Pulse Resp B/P (MAP) Pulse Ox O2 Delivery O2 Flow Rate FiO2 02/20/19 20:07 98.3 64 16 98 Room Air EKG EKG I interpretation of EKG shows a sinus bradycardia 58 bpm. Does appear to be a sinus bradycardia.[] Radiology/Procedures Radiology/Procedures I interpretation acute abdomen shows[ no acute cardiopulmonary changes, non specific bowel gas pattern. Course & Med Decision Making Course & Med Decision Making Pertinent Labs and Imaging studies reviewed. (See chart for details) Pt. admitted to Dr. Pereira for further eval and tx. Pt. urine still pending at time of admit. [] Final Impression Final Impression 1. History of influenza on Tamiflu[] 2. + Strept. + 3. Elevated BUN 4. Nausea and Vomiting 5. Hyponatremia and Hypokalemia 6. Vol. Contracted - Dehydration 7. DM- Hyperglycemia 171 Dragon Disclaimer Dragon Disclaimer This electronic medical record was generated, in whole or in part, using a voice recognition dictation system. Discharge Summary Brief Hospital Course Allergies Allergies Coded Allergies Type Severity Reaction Last Updated Verified acetaminophen Allergy Intermediate HIVES 01/18/18 Yes adhesive tape Allergy Intermediate 01/18/18 Yes Vital Signs Vital Signs Date Time Temp Pulse Resp B/P (MAP) Pulse Ox O2 Delivery O2 Flow Rate FiO2 02/20/19 20:07 98.3 64 16 98 Room Air Brief Hospital Course Ms. Leary is a 28 old female who presented with DM, Strept.pharyngitis, vol. contracted. Admit to Dr. Pereira. Discharge Information Condition at Discharge: Improved, Stable Dischare Medications Current Medications Lactated Ringer's 1,000 ml @ 1,000 mls/hr Q1H IV Last administered on at 20:21; Admin Dose 1,000 MLS/HR; Start 02/20/19 at 20:10; Stop 02/20/19 at 21: 09; Status DC Active Scripts Active Zofran (Ondansetron Hcl) 4 Mg Tablet 1 Tab PO PRN Q6-8HRS Omeprazole 40 Mg Capsule.dr 1 Cap PO DAILY Zofran Odt (Ondansetron) 4 Mg Tab.rapdis 1 Tab SL Q4HRS Levemir (Insulin Detemir) 100 Unit/1 Ml Vial 20 Unit SQ BID 30 Days resume tonight at bedtime last dose this morning Reglan (Metoclopramide Hcl) 10 Mg Tablet 1 Tab PO QID Novolog Flexpen (Insulin Aspart) 100 Unit/1 Ml Insuln.pen 0-9 Unit SQ ACHS FOLLOW SUPPLEMENTAL SCALE GIVEN TO YOU Annelise Disclaimer This chart was dictated in whole or in part using Voice Recognition software in a busy, high-work load, and often noisy Emergency Department environment. It may contain unintended and wholly unrecognized errors or omissions. YELENA HENRY MD Feb 20, 2019 20:10
[2019-02-20] MEDS ORDERED: ONDANSETRON ODT 4 MG TAB.RAPDIS PO ONE (20:30)
[2019-02-20 20:45] LABS: BASO % 1 % (0-3); EOS % 0 % (0-3); HEMATOCRIT 39.2 % (36.0-47.0); HEMOGLOBIN 13.7 g/dL (12.0-15.5); LYMPH # 1.5 x10^3/uL (1.0-4.8); LYMPH % 21 % (24-48); MEAN CORPUSCULAR HEMOGLOBIN 30 pg (25-35); MEAN CORPUSCULAR HGB CONC 35 g/dL (31-37); MEAN CORPUSCULAR VOLUME 85 fL (79-100); MONO # 0.4 x10^3/uL (0.0-1.1); MONO % 5 % (0-9); NEUT # 5.3 x10^3uL (1.8-7.7); NEUT % 73 % (31-73); PLATELET COUNT 247 x10^3/uL (140-400); RED BLOOD COUNT 4.61 x10^6/uL (3.50-5.40); RED CELL DISTRIBUTION WIDTH 13.3 % (11.5-14.5); WHITE BLOOD COUNT 7.3 x10^3/uL (4.0-11.0)
[2019-02-20] MEDS ORDERED: KETOROLAC 30 MG/ML VIAL. IV ONE (20:45)
[2019-02-20 21:01] LABS: ALBUMIN 3.9 g/dL (3.4-5.0); CALCIUM 8.6 mg/dL (8.5-10.1); CREATININE 0.7 mg/dL (0.6-1.0); DIRECT BILIRUBIN 0.2 mg/dL (0.0-0.2); GFR 100.4; MAGNESIUM 1.8 mg/dL (1.8-2.4); POTASSIUM 3.1 mmol/L (3.5-5.1); TOTAL BILIRUBIN 0.8 mg/dL (0.2-1.0)
[2019-02-20 21:13] LABS: INFLUENZA A PATIENT NEGATIVE (NEGATIVE); INFLUENZA B PATIENT NEGATIVE (NEGATIVE)
--- NOTE | 2019-02-20 21:38 | RAD ---
Indication:Nausea and vomiting TECHNIQUE:PA chest and 3 views of the abdomen and pelvis COMPARISON: None FINDINGS: Heart is normal in size. Lungs are clear. No pneumothorax or pleural effusion. No pneumoperitoneum. No abnormally dilated bowel loops or air-fluid levels. The contours of solid abdominal organs are within normal limits. No abnormal calcific densities projecting over the kidneys suggest apparent renal stones. 6 regular calcific density seen projecting over the right hemipelvis which may present a phlebolith or distal right ureteral stone. Visualized bones are within normal limits. IMPRESSION: 1. No perinephric evidence of bowel obstruction. 2. Calcific density projecting over the right hemipelvis may represent a phlebolith or ureteral stone. If concern for obstructive uropathy is high consider further evaluation with CT abdomen pelvis without IV contrast. Electronically signed by: Woodrow Welch DO (02/20/2019 9:35 PM) [facility]
[2019-02-20 23:00] VITALS: BP 169/92
[2019-02-21] MEDS: ONDANSETRON PF 4 MG/2 ML VIAL. IV PRN ×3 (00:20→20:53)
--- NOTE | 2019-02-21 01:12 | NUR ---
PT presented to the ED with complaints of N/V since Sat. PT at [facility] on Monday, tested positive for flu, treated. PT at [facility] today for nausea and given suppository there, sent home. PT presented here with same complaints and admitted. PT transported via EMS and transferred safely to bed. PT oriented to unit. PT assessed. PT belongings noted. PT started on antibiotics.
[2019-02-21] MEDS: HYDROcodon/IBUPROFEN 7.5/200MG 1 TAB TABLET PO PRN (01:38)
[2019-02-21] MEDS ORDERED: INSU100V13 SQ ×2 (01:46)
[2019-02-21] MEDS: IV RINGERS SOLUTION,LACTATED 1,000 ML IV SCH ×5 (02:38→17:49)
[2019-02-21 05:21] VITALS: BP 131/80
[2019-02-21 06:15] LABS: BASO # 0.1 x10^3/uL (0.0-0.2); BASO % 1 % (0-3); EOS # 0.1 x10^3/uL (0.0-0.7); EOS % 1 % (0-3); HEMATOCRIT 33.8 % (36.0-47.0); HEMOGLOBIN 11.6 g/dL (12.0-15.5); LYMPH % 44 % (24-48); MEAN CORPUSCULAR HEMOGLOBIN 30 pg (25-35); MEAN CORPUSCULAR HGB CONC 35 g/dL (31-37); MEAN CORPUSCULAR VOLUME 86 fL (79-100); MONO # 0.6 x10^3/uL (0.0-1.1); MONO % 8 % (0-9); NEUT # 3.2 x10^3uL (1.8-7.7); NEUT % 46 % (31-73); PLATELET COUNT 224 x10^3/uL (140-400); RED BLOOD COUNT 3.93 x10^6/uL (3.50-5.40); RED CELL DISTRIBUTION WIDTH 13.2 % (11.5-14.5); WHITE BLOOD COUNT 6.9 x10^3/uL (4.0-11.0)
[2019-02-21 06:39] LABS: CALCIUM 7.9 mg/dL (8.5-10.1); CREATININE 0.6 mg/dL (0.6-1.0); GFR 119.9; POTASSIUM 3.2 mmol/L (3.5-5.1)
[2019-02-21 07:31] LABS: % BANDS 1 % (0-9); % BASOS 2 % (0-3); % EOS 1 % (0-5); % LYMPHS 42 % (24-48); % MONOS 10 % (0-10); % SEGS 44 % (35-66)
[2019-02-21 07:33] LABS: PLT ESTIMATE ADEQUATE (ADEQUATE)
[2019-02-21 07:34] LABS: POLYCHROMASIA SLIGHT
[2019-02-21] MEDS ORDERED: POTASSIUM CHLORIDE 20 MEQ TABLET.ER. PO ONE (07:45)
[2019-02-21] MEDS ORDERED: DEXTROSE 50% 25 GM / 50ML DISP.SYRIN. IV PRN (07:45)
[2019-02-21] MEDS: INSULIN LISPRO 300 UNITS/3 ML INSULN.PEN. SQ SCH ×3 (08:00→17:00)
[2019-02-21] MEDS ORDERED: NON FORMULARY ITEM (Insulin Aspart (Novolog Flexpen) 0 UNIT) SQ SCH (08:00)
[2019-02-21] MEDS: INSULIN GLARGINE 300 UNITS/3 ML INSULN.PEN. SQ SCH (08:55)
[2019-02-21] MEDS: METOCLOPRAMIDE 10 MG TABLET PO SCH ×4 (08:56→20:52)
[2019-02-21] MEDS: KETOROLAC 30 MG/ML VIAL. IV PRN ×3 (08:57→20:53)
[2019-02-21] MEDS: LACTOBACILLUS RHAMNOSUS GG 1 CAPSULE. PO SCH ×2 (08:58→20:54)
--- NOTE | 2019-02-21 10:40 | NUR ---
IP: patient + for strep A, requires droplet precautions until 24hours of antibiotic treatment.
[2019-02-21 11:32] VITALS: BP 134/85
[2019-02-21 15:22] VITALS: BP 145/86
--- NOTE | 2019-02-21 17:17 | EKG ---
[address] [address] Test Date: 2019-02-20 Test Time: 21:11:45 Pat Name: CHALO RAYMUNDO Department: Room: 120 A Gender: F Cardiac Rn: REI : 1990 Requested By: YELENA HENRY Order Number: [id number] Reading MD: Alex Espinoza MD Measurements Intervals [place] Rate: 58 P: MD: QRS: 73 QRSD: 84 T: 59 QT: 392 QTc: 388 Interpretive Statements SR NON-SPECIFIC ST/T CHANGES Electronically Signed On 02-25-2019 15:46:58 CDT by Alex Espinoza MD
--- NOTE | 2019-02-21 18:03 | NUR ---
Patient continues to have abdominal pain and all over body aches, IV Fluids continued with K+. States that she just isnt able to keep anything down and just does not have an appetite. Patient unable to tolerate PO potassium today. Dr. Pereira here at this time, ordered CT abdomen; pt taken down to radiology.
[2019-02-21] MEDS: POTASSIUM CL 40MEQ IN 0.9%NACL 1,000 ML IV SCH (18:20)
--- NOTE | 2019-02-21 18:51 | HP ---
ADMIT DATE: 02/20/2019 HISTORY OF PRESENT ILLNESS: The patient is a 28-year-old female patient who came to the Emergency Room. She is complaining that she was seen at [facility] last Monday. They found that she was tested positive for flu and was given Tamiflu. She took it only twice a day according to her and she did not feel any better and she came to the Emergency Room. She apparently had a history of fever, sore throat, nausea, vomiting, myalgia, arthralgia and malaise. The patient is well known to the Emergency Department for poorly controlled diabetes with frequent episodes of diabetic ketoacidosis, polysubstance abuse and dehydration. When she came, she did complain of generalized myalgia, arthralgia, malaise, and fever. It has not improved with Tamiflu, although she is up only 2 days out of 5 days' course. Denied any current drug abuse. She continued to smoke. No recent travel. No history of renal suppression, other than her uncontrolled diabetes. She follows with [facility] for her medical care. She was evaluated in the Emergency Room and her lab work showed her white cell count was normal. Her chemistry showed that she is slightly dehydrated and has hypokalemia. Her acute abdomen showed that the patient's heart size is normal, lungs are clear, no pneumothorax or pleural effusion, no pneumoperitoneum, no abnormally dilated bowel loops. Her air fluid levels are controlled. The solid abdominal organs are within normal limits. No abnormal calculi. No abnormal calcific densities projecting over the kidneys suggesting apparent renal stones. Six irregular calcific densities seen projecting over the right hemipelvis, which may represent a phlebolith or distal right ureteral stone. The visualized bones are within normal limits. If concern for obstructive uropathy is high, consider further evaluation with CT abdomen and pelvis without IV contrast. The patient was admitted and started on IV fluids, together with IV Rocephin. Surprisingly, her blood sugar has been extremely well controlled. PAST MEDICAL HISTORY: Significant for poorly type 1 diabetes mellitus, diabetic gastroparesis, multiple admissions for diabetic ketoacidosis. She has also peripheral neuropathy and polysubstance abuse including methamphetamine, although at this time her toxic screen apparently was negative. PAST SURGICAL HISTORY: Significant for Port-A-Cath placement and removal, incision and drainage of left axillary abscess, multiple EGDs and gastric emptying study. FAMILY HISTORY: Unremarkable. SOCIAL HISTORY: She lives with her mother. She does not smoke, drink alcohol; however, she continued to smoke. She claimed that she is not using any methamphetamine. ALLERGIES: SHE IS ALLERGIC TO ADHESIVE TAPE AND ACETAMINOPHEN. MEDICATIONS: She is currently on omeprazole 40 mg once a day, metoclopramide 10 mg before meals and bedtime. She is on NovoLog insulin as insulin sliding scale before meals, Levemir insulin 20 units subcutaneously daily, and Levemir insulin 10 units subcutaneously at bedtime. REVIEW OF SYSTEMS: As per history of present illness. PHYSICAL EXAMINATION: GENERAL: On arrival to the Emergency Room, the patient looked well and was clearly in no apparent respiratory distress. She was pale, but no jaundice, cyanosis, or thyromegaly. No jugular venous distension. No limb edema. VITAL SIGNS: Her heart rate was 64, blood pressure was 169/92, temperature was 98.4, respiratory rate 22 and oxygen saturation was 97%. HEAD, EYES, EARS, NOSE AND THROAT: Showed normocephalic, atraumatic. NECK: Supple. HEART: Showed normal first and second heart sounds with no gallop, rub or murmur. CHEST: Clear to auscultation. No crepitation or rhonchi. ABDOMEN: Distended, soft, nontender. There is no guarding or rigidity. No organomegaly. All hernial orifice intact. Bowel sounds normal. NEUROLOGIC: She is awake, alert, responding appropriately. All cranial nerves intact. She moves extremities without difficulty. LABORATORY DATA: Her lab work on admission showed a white cell count of 7300, hemoglobin 13.7, hematocrit 39, MCV 85 and platelet count 247,000. Her chemistry showed a serum sodium 135, potassium 3.1, chloride 97, bicarbonate 21, anion gap of 17, BUN 23, creatinine 0.7, estimated GFR was 100 mL per minute. Her glucose 171, calcium was 8.6, magnesium was 1.8. Total bilirubin, AST, ALT, alkaline phosphatase were normal. CK was 86. Total protein was 7, albumin 3.9. Lipase was 29 and TSH was normal at 0.8041. Her influenza A and B were negative. Group A Streptococcus rapid test was positive. Her prothrombin time was 10.9, INR of 1.1, aPTT was 23. Her acute abdomen series showed no evidence of bowel obstruction, calcific density projecting over the right hemipelvis may represent a phlebolith or ureteral stone. If concern for obstructive uropathy is high, consider further evaluation with CT abdomen and pelvis without IV contrast. IMPRESSION: In summary, this is a 28-year-old female patient who was treated at [facility], although she took the Tamiflu only for 2 days. She continued to complain of aches and pains, generalized aches and arthralgia, myalgia as well as nausea, and was evaluated again in the Emergency Room, was positive for Streptococcus sore throat. She was found also to be dehydrated. She has hypokalemia, hyponatremia and definitely she was dehydrated. Her BUN is 23, creatinine, however, was normal. Surprisingly, her blood sugar has been well controlled. PLAN: To continue with IV fluid, continue with the IV ceftriaxone, continue with all her other medications. ANAYELI FOSS MD DR: JOSÉ/regina JOB#: [id number] / [id number]
[2019-02-21 19:51] VITALS: BP 126/78
[2019-02-21] MEDS ORDERED: INSULIN GLARGINE 300 UNITS/3 ML INSULN.PEN. SQ SCH (21:00)
[2019-02-21 22:28] VITALS: BP 149/84
--- NOTE | 2019-02-22 01:09 | RAD ---
Abdominal and Pelvis CT, Without Contrast: History: Nausea vomiting and right flank pain. Comparison: None. Procedure: Axial images are obtained of the abdomen and pelvis, without IV or oral contrast. CT Abdomen without Contrast: Findings: Evaluation of solid organs is limited without contrast. Evaluation of stomach and bowel is limited without oral contrast. Liver: Normal. Spleen: Normal. Pancreas: Normal. Adrenal Glands: Normal. Kidneys: Normal. There is no free air or free fluid. There is no lymphadenopathy. Impression: Please see CT Pelvis without Contrast. End Impression. CT Pelvis without Contrast: Findings: The urinary bladder appears normal. There is loculated fluid collection in the cul-de-sac. The uterus and ovaries appear within normal limits. The appendix is normal. There is no lymphadenopathy. There is no pericolonic inflammation identified. Impression: Loculated fluid collection in the cul-de-sac could be secondary to a ruptured ovarian cyst. This interpretation assumes the patient is not . End impression PQRS Compliance Statement: One or more of the following individualized dose reduction techniques were utilized for this examination: 1. Automated exposure control 2. Adjustment of the mA and/or kV according to patient size 3. Use of iterative reconstruction technique Electronically signed by: Compa Meier III, MD (02/22/2019 1:06 AM) [id number]
--- NOTE | 2019-02-22 01:31 | PN ---
DATE: 02/21/2019 SUBJECTIVE: The patient continued to complain of generalized aches and pains, arthralgias and myalgias despite treatment with IV ceftriaxone as well as Toradol. PHYSICAL EXAMINATION: GENERAL: When I examined her this afternoon, she looked well and was clearly in no apparent respiratory distress, pale, but no jaundice, cyanosis, or thyromegaly. No jugular venous distention. No lower limb edema. VITAL SIGNS: Her heart rate was 98, blood pressure 145/86, temperature was 98.3, respiratory rate 20, and oxygen saturation was 96%. HEAD, EYES, EARS, NOSE AND THROAT: Showed normocephalic, atraumatic. NECK: Supple. HEART: Showed normal first and second sounds. No gallop, rub or murmur. CHEST: Clear to auscultation. No crepitation or rhonchi. ABDOMEN: Distended, soft, nontender. NEUROLOGIC: She was awake, alert, responding appropriately. Cranial nerves intact. She moves extremities without difficulty. Her intake was 1015. No output was recorded. LABORATORY DATA: Her lab work this morning showed serum sodium is slightly up 237, potassium slightly up to 3.2, chloride 101, bicarbonate 24, anion gap of 12, BUN 22, creatinine 0.6, estimated GFR was 120 mL per minute. Her glucose 133, calcium was 7.9. Her white cell count was 6900, hemoglobin 11.6, hematocrit 33, MCV 86 and platelet count 224,000. ASSESSMENT: The patient was admitted with: 1. Positive streptococcal sore throat, for which she is on IV ceftriaxone. 2. Dehydration. 3. Hyponatremia and hypokalemia, slightly improved. 4. Type 1 diabetes mellitus, normally very poorly controlled, is surprisingly very well controlled. PLAN: My plan is to continue the IV fluid in the form of normal saline with 40 mEq of potassium chloride. Given that she continued to complain of aches and pains and there is suspicion that she might have a right ureteral stone, I will arrange for her to have a CT scan of the abdomen and pelvis without contrast. I will repeat her lab works tomorrow. I will add also sed rate and C-reactive protein and we will decide on further management accordingly. ANAYELI FOSS MD DR: JOSÉ/regina JOB#: [id number] / [id number]
[2019-02-22] MEDS: KETOROLAC 30 MG/ML VIAL. IV PRN ×2 (03:39→10:03)
[2019-02-22] MEDS: ONDANSETRON PF 4 MG/2 ML VIAL. IV PRN ×3 (04:04→12:31)
[2019-02-22] MEDS: POTASSIUM CL 40MEQ IN 0.9%NACL 1,000 ML IV SCH (04:06)
[2019-02-22 05:07] VITALS: BP 154/80
[2019-02-22] MEDS: HYDROcodon/IBUPROFEN 7.5/200MG 1 TAB TABLET PO PRN ×2 (05:10→12:32)
[2019-02-22] MEDS: METOCLOPRAMIDE 10 MG TABLET PO SCH ×2 (05:10→12:25)
[2019-02-22 06:39] LABS: HEMATOCRIT 35.7 % (36.0-47.0); HEMOGLOBIN 12.5 g/dL (12.0-15.5); RED BLOOD COUNT 4.24 x10^6/uL (3.50-5.40); RED CELL DISTRIBUTION WIDTH 13.2 % (11.5-14.5); WHITE BLOOD COUNT 5.7 x10^3/uL (4.0-11.0)
[2019-02-22 06:53] LABS: ALBUMIN 3.3 g/dL (3.4-5.0); ALBUMIN/GLOBULIN RATIO 1.2 (1.0-1.7); C REACTIVE PROTEIN 0.8 mg/L (0-3.3); CREATININE 0.5 mg/dL (0.6-1.0); POTASSIUM 3.2 mmol/L (3.5-5.1); TOTAL BILIRUBIN 0.8 mg/dL (0.2-1.0)
[2019-02-22] MEDS ORDERED: PANTOPRAZOLE 40 MG TABLET. PO SCH (07:30)
[2019-02-22] MEDS: LACTOBACILLUS RHAMNOSUS GG 1 CAPSULE. PO SCH (07:58)
[2019-02-22] MEDS: INSULIN GLARGINE 300 UNITS/3 ML INSULN.PEN. SQ SCH (07:59)
[2019-02-22] MEDS: INSULIN LISPRO 300 UNITS/3 ML INSULN.PEN. SQ SCH ×2 (07:59→12:00)
[2019-02-22 12:03] VITALS: BP 144/88
[2019-02-22] MEDS ORDERED: AMOX500C PO (13:45)
--- NOTE | 2019-02-22 14:28 | DS ---
DATE OF DISCHARGE: 02/22/2019 HOSPITAL COURSE: The patient was admitted through the Emergency Room with a complaint of sore throat. She apparently was diagnosed with influenza and was seen for that at [facility] she was given Tamiflu. She took it for 2 days. Her symptom has not really changed and she came to the Emergency Room of [facility]. She was found to be positive for streptococcal sore throat and was admitted, started on IV Rocephin and she did well, has had no more sore throat. Her white cell count has remained stable. Her sed rate and CRP was negative. She did complain of generalized aches and pains, treated with Toradol. I did actually CT scan of the abdomen and pelvis without contrast, which basically showed that the liver, spleen, pancreas, adrenal glands, kidneys are normal. There is no free air or free fluid. There is no lymphadenopathy. Urinary bladder appears normal and there is loculated fluid collection in the cul-de-sac. The uterus and ovaries appeared within normal limits. The appendix is normal. There is no lymphadenopathy. There is no pericolonic inflammation identified. IMPRESSION: The patient has loculated fluid collection in the cul-de-sac could be secondary to ruptured ovarian cyst. Assumed the patient is not . The patient said she has not had sex for the last 3 years. PHYSICAL EXAMINATION: GENERAL: When I saw her this afternoon, she looked well and was clearly in no apparent respiratory distress. No pallor, jaundice, cyanosis, or thyromegaly. No jugular venous distention. No limb edema. VITAL SIGNS: Her heart rate was 90, blood pressure 144/88, temperature was 98.6, respiratory rate 20, and oxygen saturation was 97%. The rest of clinical examination is stable, has not really changed. LABORATORY DATA: Her lab work this morning showed a white cell count 5700, hemoglobin 12.5, hematocrit 36, MCV 84 and platelet count 120,000. Her chemistry showed a serum sodium 137, potassium 3.2, chloride 101, bicarbonate 25, anion gap of 11, BUN 13, creatinine 0.5, estimated GFR was 148, glucose was 105, calcium was 8. Total bilirubin, AST, ALT, alkaline phosphatase were normal. Total protein 6, albumin 3.3. Her TSH was normal. ASSESSMENT: Acute streptococcal sore throat, resolving, influenza A treated with Tamiflu, type 1 diabetes mellitus seems to be well controlled. ANAYELI FOSS MD DR: JOSÉ/regina JOB#: [id number] / [id number]
[2019-02-22 15:32] VITALS: BP 163/92
--- NOTE | 2019-02-22 16:07 | NUR ---
Discharge Note: CHALO RAYMUNDO [address] Discharge instructions and discharge home medications reviewed with patient and a copy given. All questions have been answered and understanding verbalized. The following instructions and handouts were given: medications, follow up instructions, prescriptions and educational handouts given. Discontinued lines and drains: peripheral IV discontinued with no complications. Patient discharged to home with mother via private vehicle.
== END 2019-02-22 16:00 | disposition home or self-care (01) ==
LOC: ER 20:04 → 1 SOUTH 20:19 → INTOOBSV 20:19
PROVIDERS: ADMIT Internal Medicine; ATTEND Internal Medicine
DX: J09.X2 Influenza due to identified novel influenza A virus with other respiratory manifestations (principal); E86.0 Dehydration; E87.1 Hypo-osmolality and hyponatremia; E87.6 Hypokalemia; K21.9 Gastro-esophageal reflux disease without esophagitis; E10.43 Type 1 diabetes mellitus with diabetic autonomic (poly)neuropathy; K31.84 Gastroparesis; F17.210 Nicotine dependence, cigarettes, uncomplicated; Z88.8 Allergy status to other drugs, medicaments and biological substances
CPT/HCPCS: 36415; 74022; 74176; 80048; 80053; 80076; 82550; 82947; 83690; 83735; 83880; 84443; 84484; 85007; 85025; 85027; 85610; 85651; 85730; 86140; 87040; 87804; 87880; 93005; 96361; 96365; 96366; 96367; 96368; 96372; 96375; 96376; 99284; G0378; J0696; J1815; J1885; J2405; J7120; J8597; Q0162; G0379; 99285-25

== ENCOUNTER 2019-02-23 20:44 | Inpatient (IN) | payer OTHER ==
[~2019-02-23] VITALS: Ht 170.2 cm; Wt 70.0 kg
[~2019-02-23 20:44] MED LIST changes: +AMOX500C PO
[2019-02-23] MEDS ORDERED: IV NORMAL SALINE 1,000ML 1,000 ML IV SCH (20:54)
--- NOTE | 2019-02-23 21:20 | PHYS DOC ---
Past History Past Medical History: Anxiety, Diabetes, GERD, UTI, Other Additional Past Medical Histor: pt reports several admissions for "high blood sugar" Past Surgical History: Other Smoking: Less than 1pk/day Alcohol Use: None Drug Use: Methamphetamine Adult General Chief Complaint Chief Complaint: HYPERGLYCEMIA [facility] HPI Patient is a 28-year-old female who presents with report of abdominal pain with nausea and vomiting. Patient also states that her blood sugars have been running fairly high over the last few days. Patient states that she had been taking a nap and woke up to rapid heart rate and rapid breathing. She states that she has had some difficulty in keeping anything down since yesterday. Patient does have type 1 diabetes and states that she is a brittle diabetic. She rates the pain in her abdomen is moderate. She denies any chest pain but does complain of shortness of breath. Review of Systems Review of Systems Constitutional: Denies fever or chills [] Respiratory: Complains of shortness of breath [] Cardiovascular: No additional information not addressed in HPI [] GI: Complains of abdominal pain with nausea and vomiting. Denies diarrhea [] : Denies dysuria or hematuria [] Neurologic: Denies headache, focal weakness or sensory changes [] All other systems were reviewed and found to be within normal limits, except as documented in this note. Current Medications Current Medications Current Medications Medications (Trade) Dose Ordered Sig/Chevy Start Time Stop Time Status Last Admin Dose Admin Sodium Chloride 1,000 ml @ 1,000 mls/hr Q1H 02/23/19 20:54 02/23/19 21:53 Allergies Allergies Allergies Coded Allergies Type Severity Reaction Last Updated Verified acetaminophen Allergy Intermediate HIVES 01/18/18 Yes adhesive tape Allergy Intermediate 01/18/18 Yes Physical Exam Physical Exam Constitutional: Well developed, well nourished, no acute distress, non-toxic appearance. [] HENT: Normocephalic, atraumatic, bilateral external ears normal, oropharynx dry , no oral exudates, nose normal. [] Eyes: PERRLA, EOMI, conjunctiva normal, no discharge. [] Neck: Normal range of motion, no tenderness, supple, no stridor. [] Cardiovascular: Tachycardic rate with regular rhythm[] Lungs & Thorax: Bilateral breath sounds clear to auscultation [] Abdomen: Bowel sounds normal, soft, with epigastric tenderness. [] Skin: Warm, dry, no erythema, no rash. [] Extremities: No tenderness, no cyanosis, no clubbing, ROM intact, no edema. [] Neurologic: Alert and oriented X 3, no focal deficits noted. [] Current Patient Data Vital Signs Vital Signs Date Time Temp Pulse Resp B/P (MAP) Pulse Ox O2 Delivery O2 Flow Rate FiO2 02/23/19 20:52 97.6 133 26 100 Nasal Cannula 2.0 EKG EKG [] Radiology/Procedures Radiology/Procedures [] Course & Med Decision Making Course & Med Decision Making Pertinent Labs and Imaging studies reviewed. (See chart for details) [] Dragon Disclaimer Dragon Disclaimer This electronic medical record was generated, in whole or in part, using a voice recognition dictation system. Departure Departure: Impression: Primary Impression: Diabetic ketoacidosis associated with type 1 diabetes mellitus Disposition: ADMITTED INPATIENT Admitting Physician: Justin Pereira Condition: IMPROVED Referrals: PCP,NO (PCP) Problem Qualifiers Primary Impression: Diabetic ketoacidosis associated with type 1 diabetes mellitus Diabetes mellitus complication detail: without coma Qualified Codes: E10.10 - Type 1 diabetes mellitus with ketoacidosis without coma AMY HUFFMAN Jr. DO Feb 23, 2019 21:20
[2019-02-23 22:03] LABS: ALBUMIN 4.3 g/dL (3.4-5.0); ALBUMIN/GLOBULIN RATIO 1.3 (1.0-1.7); ALK PHOS 86 U/L (46-116); ALT (SGPT) 20 U/L (14-59); AST (SGOT) 13 U/L (15-37); BLOOD UREA NITROGEN 22 mg/dL (7-20); BUN/CREATININE RATIO 22 (6-20); CALCIUM 8.5 mg/dL (8.5-10.1); CHLORIDE 97 mmol/L (98-107); GFR 66.5; GLUCOSE 310 mg/dL (70-99); POTASSIUM 4.9 mmol/L (3.5-5.1); SODIUM 130 mmol/L (136-145); TOTAL BILIRUBIN 0.6 mg/dL (0.2-1.0); TOTAL PROTEIN 7.7 g/dL (6.4-8.2)
[2019-02-23 22:04] LABS: ANION GAP 28 (6-14); BASO # 0.1 x10^3/uL (0.0-0.2); BASO % 0 % (0-3); EOS % 0 % (0-3); HEMATOCRIT 43.9 % (36.0-47.0); HEMOGLOBIN 14.5 g/dL (12.0-15.5); LYMPH # 1.2 x10^3/uL (1.0-4.8); LYMPH % 5 % (24-48); MEAN CORPUSCULAR HEMOGLOBIN 30 pg (25-35); MEAN CORPUSCULAR HGB CONC 33 g/dL (31-37); MEAN CORPUSCULAR VOLUME 89 fL (79-100); MONO # 1.8 x10^3/uL (0.0-1.1); MONO % 7 % (0-9); NEUT # 21.4 x10^3uL (1.8-7.7); NEUT % 88 % (31-73); PLATELET COUNT 351 x10^3/uL (140-400); RED BLOOD COUNT 4.92 x10^6/uL (3.50-5.40); RED CELL DISTRIBUTION WIDTH 13.6 % (11.5-14.5); WHITE BLOOD COUNT 24.5 x10^3/uL (4.0-11.0)
[2019-02-23 22:06] LABS: CARBON DIOXIDE < 5 mmol/L (21-32)
[2019-02-23] MEDS ORDERED: INSULIN REGULAR VIAL 150 UNIT in 0.9 % SODIUM CHLORIDE 150ML 150 ML IV PRN (22:45)
[2019-02-23] MEDS ORDERED: DEXTROSE 50% 25 GM / 50ML DISP.SYRIN. IV PRN (22:45)
[2019-02-23 22:57] LABS: % BANDS 8 % (0-9); % LYMPHS 5 % (24-48); % MONOS 2 % (0-10); % SEGS 85 % (35-66)
[2019-02-23 22:58] LABS: ANISOCYTOSIS SLIGHT; MICROCYTOSIS SLIGHT; PLT ESTIMATE ADEQUATE (ADEQUATE)
[2019-02-23 23:25] LABS: CLARITY,URINE CLEAR; COLOR,URINE YELLOW
[2019-02-23 23:26] LABS: BACTERIA,URINE 0 /HPF (0-FEW); BILIRUBIN,URINE NEG (NEG); GLUCOSE,URINE 500 mg/dL (NEG); NITRITE,URINE NEG (NEG); RBC,URINE 0 /HPF (0-2); SQUAMOUS EPITHELIAL CELL,UR MOD /LPF; UROBILINOGEN,URINE 0.2 mg/dL (0.2 mg/dL); WBC,URINE RARE /HPF (0-4)
[2019-02-23] MEDS ORDERED: MORPHINE SULFATE 2 MG/ML DISP.SYRIN. IV PRN (23:45)
[2019-02-23] MEDS ORDERED: ONDANSETRON PF 4 MG/2 ML VIAL. IV PRN (23:45)
[2019-02-24] VITALS (18 sets, daily range): BP systolic 99–132; BP diastolic 53–92
[2019-02-24] MEDS ORDERED: SODIUM CHLORIDE ONE (00:42)
[2019-02-24] MEDS ORDERED: 0.9 % SODIUM CHLORIDE 150ML 150 ML ONE (00:53)
[2019-02-24] MEDS ORDERED: INSULIN LISPRO 300 UNITS/3 ML INSULN.PEN. SQ ONE (00:54)
[2019-02-24] MEDS: IV NORMAL SALINE 1,000ML 1,000 ML IV SCH ×3 (00:58→15:40)
[2019-02-24] MEDS: MORPHINE SULFATE 4 MG/ML DISP.SYRIN. IV PRN ×9 (01:19→23:13)
[2019-02-24] MEDS: IV DEXTROSE 5 %-0.45 % NACL 1,000 ML IV SCH ×3 (05:39→22:00)
[2019-02-24 06:55] LABS: BASO % 0 % (0-3); EOS % 0 % (0-3); HEMOGLOBIN 13.2 g/dL (12.0-15.5); LYMPH % 19 % (24-48); MEAN CORPUSCULAR HEMOGLOBIN 29 pg (25-35); MEAN CORPUSCULAR HGB CONC 34 g/dL (31-37); MEAN CORPUSCULAR VOLUME 86 fL (79-100); MONO # 1.7 x10^3/uL (0.0-1.1); MONO % 11 % (0-9); NEUT # 11.2 x10^3uL (1.8-7.7); NEUT % 70 % (31-73); PLATELET COUNT 318 x10^3/uL (140-400); RED BLOOD COUNT 4.53 x10^6/uL (3.50-5.40); RED CELL DISTRIBUTION WIDTH 13.6 % (11.5-14.5)
[2019-02-24 07:06] LABS: CALCIUM 8.1 mg/dL (8.5-10.1); CREATININE 0.8 mg/dL (0.6-1.0)
[2019-02-24] MEDS ORDERED: DEXTROSE 50% 25 GM / 50ML DISP.SYRIN. IV PRN (07:15)
[2019-02-24] MEDS: INSULIN LISPRO 300 UNITS/3 ML INSULN.PEN. SQ SCH ×3 (08:00→17:18)
[2019-02-24] MEDS: KETOROLAC 30 MG/ML VIAL. IV PRN ×2 (10:28→20:13)
--- NOTE | 2019-02-24 15:56 | HP ---
ADMIT DATE: 02/24/2019 HISTORY OF PRESENT ILLNESS: The patient is a 28-year-old female patient who presented to the Emergency Room with a complaint of abdominal pain with nausea and vomiting. She stated that her blood sugar has been running fairly high over the last few days. She was actually discharged. She was discharged on 02/22/2019 and she was seen at [facility] about a week ago and was diagnosed with the flu and was treated with Tamiflu. She took Tamiflu only for 2 days and then stated that her symptom has not improved and she ended up back in the Emergency Room and was diagnosed with Streptococcal sore throat. We treated her with IV ceftriaxone and was discharged home on oral amoxicillin only to come back again next day to the Emergency Room with the above-mentioned complaint. She was investigated in the Emergency Room and she was found to be extremely acidotic, dehydrated with a blood sugar of 310, bicarbonate of 5. Her white cell count has also been found to be high at 24,500. However, her urinalysis was essentially unremarkable. There was large amount of protein, large amount of glucose, large amount of ketones, small amount of blood, negative for nitrite and leukocyte esterase. There are no rbc's, no wbc's, and no bacteria. Her toxic screen was negative. The patient was admitted with diabetic ketoacidosis, was continued on insulin drip and IV fluid. No obvious site of infection was revealed on her last admission. She also complained of abdominal pain and in the last admission, we did the CT scan of the abdomen and pelvis, which showed that the patient has a loculated fluid collection in the cul-de-sac, the uterus and ovaries appeared within normal limits. The appendix is normal. There is no lymphadenopathy. There is no pericolonic inflammation identified and according to the radiologist, the impression is the patient has loculated fluid collection in the cul-de-sac could be secondary to ruptured ovarian cyst. This interpretation assumed the patient is not and the patient stated and confirmed that she has not had sex for the last 3 years and her today's test was negative. PAST MEDICAL HISTORY: Significant for type 1 diabetes mellitus, diabetic gastroparesis, multiple admissions for diabetic ketoacidosis. She also has peripheral neuropathy, polysubstance abuse including methamphetamine, although no toxic screen was done this time. PAST SURGICAL HISTORY: Significant for Port-A-Cath placement and removal, incision and drainage of left axillary abscess, multiple EGDs and gastric emptying studies. FAMILY HISTORY: Unremarkable. SOCIAL HISTORY: She apparently lives with her sister and works in a [employer] center. Apparently, she does not smoke, drink alcohol, or does any recreational drugs. ALLERGIES: SHE IS ALLERGIC TO ADHESIVE TAPE AND ACETAMINOPHEN. HOME MEDICATIONS: Consist of omeprazole 40 mg once a day, metoclopramide 10 mg before meals and at bedtime. She is on NovoLog insulin as insulin sliding scale before meals and Levemir insulin 20 units subcutaneously daily, and Levemir insulin 10 units subcutaneously at bedtime. REVIEW OF SYSTEMS: As per history of present illness. PHYSICAL EXAMINATION: GENERAL: On arrival to the Emergency Room, she was pale, but no jaundice, cyanosis or thyromegaly. No jugular venous distention. No lower limb edema. VITAL SIGNS: Her heart rate was 133, blood pressure was 119/92, temperature was 97.9, respiratory rate was 26, and oxygen saturation 100% on 2 liters of oxygen. HEAD, EYES, EARS, NOSE AND THROAT: Showed normocephalic, atraumatic. NECK: Supple. HEART: Showed normal first and second heart sounds with no gallop or murmur. CHEST: Clear to auscultation. No crepitation or rhonchi. ABDOMEN: Slightly distended, soft with tenderness mostly in the left lower quadrant. There is no guarding or rigidity. No organomegaly. All hernial orifices are intact. Bowel sounds normal. NEUROLOGIC: She was awake, alert, responding appropriately. All her cranial nerves are intact. EXTREMITIES: She moves extremities without difficulty. She ambulates without assistance or assistive devices. LABORATORY DATA: On admission showed a white cell count of 24,500, hemoglobin 14.5, hematocrit 43.9, MCV 89 and platelet count of 351,000. Her chemistry showed a serum sodium of 130, potassium 4.9, chloride 97, bicarbonate 5, anion gap of 28, BUN 22, creatinine 1, estimated GFR was 66 mL per minute, his glucose was 310, calcium was 8.5. Total bilirubin, AST, ALT, alkaline phosphatase were normal. Total protein was 7.7, albumin was 4.3. Her urinalysis was unremarkable, showed the urine was yellow, clear with a pH of 5.5, specific gravity 1.030. There was large amount of protein, large amount of glucose, large amount of ketones and small amount of blood. The urine was negative for nitrite and leukocyte esterase. There are no rbc's, no wbc's, and no bacteria. Her urine test was negative. Her toxic screen showed acetone level was negative. ASSESSMENT AND PLAN: The patient was admitted, started on IV fluid and insulin drip. We will monitor her blood sugar as well as electrolytes and anion gap and switch her to her regular schedule once she is able to eat and drink. ANAYELI FOSS MD DR: JOSÉ/rgeina JOB#: [id number] / [id number]
--- NOTE | 2019-02-24 17:59 | RAD ---
PA and lateral views of the chest. Comparison: Chest radiograph dated 10/15/2018, acute abdomen series dated 02/19/2019. Indication: increased WBC Findings: Slightly hyperinflated lung volume. No focal airspace disease. Normal pulmonary vasculature. No pleural effusion. No pneumothorax. The cardiomediastinal silhouette is normal in appearance. The great vessels are normal. No acute osseous abnormality. Impression: 1. No acute cardiopulmonary process. Electronically signed by: Rick Valenzuela MD (02/24/2019 5:56 PM) [facility]
--- NOTE | 2019-02-24 18:16 | EKG ---
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
--- NOTE | 2019-02-24 22:32 | PN ---
DATE: 02/24/2019 SUBJECTIVE: The patient is resting, slightly propped up in bed, continued to complain of severe abdominal pain. Denied any nausea or vomiting. Denied any diarrhea. Denied any dysuria, frequency or hematuria. On her last admission, we did a CT scan, which showed that she has a loculated fluid collection in the cul-de-sac could be secondary to a ruptured ovarian cyst and that interpretation was assumed the patient is not . The patient herself confirmed that she has not had sex for the last 3 years. PHYSICAL EXAMINATION: GENERAL: When I examined her this afternoon, she looked well and was clearly in no apparent respiratory distress. No pallor, jaundice, cyanosis, or thyromegaly. No jugular venous distension. No limb edema. VITAL SIGNS: Her heart rate was 101, blood pressure was 107/65, temperature was 97.7, respiratory rate was 18 and oxygen saturation was 97% on 2 liters of oxygen. HEAD, EYES, EARS, NOSE AND THROAT: Normocephalic, atraumatic. NECK: Supple. HEART: Showed normal first and second heart sounds. No gallop, rub or murmur. CHEST: Clear to auscultation. No crepitation or rhonchi. ABDOMEN: Distended, soft, nontender; tenderness mostly in the left lower quadrant. There is no guarding or rigidity. No organomegaly. All hernial orifice intact. Bowel sounds normal. NEUROLOGIC: She is awake, alert, responding appropriately. All cranial nerves intact. She moves extremities without difficulty. She ambulates without assistance or assistive devices. Her intake over the last 24 hours was incompletely recorded. LABORATORY DATA: Her lab work this morning showed a white cell count down to 16,000, hemoglobin 13.2, hematocrit 39, MCV 86, and platelet count of 318,000. Her chemistry showed sodium up to 133, potassium 4, chloride 103, bicarbonate 12, anion gap of 18, BUN 17, creatinine 0.8, estimated GFR was 86 mL per minute. Her glucose was 115, calcium was 8.1. ASSESSMENT: In summary, this is a 28-year-old female patient who was admitted again with diabetic ketoacidosis with severe metabolic acidosis with bicarbonate only 5. She has dilutional hyponatremia, did have also mild dehydration with a BUN of 22, creatinine 1. She has marked leukocytosis; however, urinalysis is unremarkable and in fact, she was discharged home with a prescription for amoxicillin 500 mg 3 times a day for Streptococcal sore throat. PLAN: My plan is to continue the IV fluids, switch her back to her insulin schedule, and will repeat all her labs tomorrow. I will arrange for her to be seen by subscription crew leader. I did offer to transfer her last time to [facility] to be seen by the subscription crew leader, but she declined offer. ANAYELI FOSS MD DR: JOSÉ/regina JOB#: [id number] / [id number]
[2019-02-25] VITALS (11 sets, daily range): BP systolic 95–148; BP diastolic 56–104
[2019-02-25] MEDS: IV DEXTROSE 5 %-0.45 % NACL 1,000 ML IV SCH (06:00)
[2019-02-25 07:02] LABS: BASO # 0.1 x10^3/uL (0.0-0.2); BASO % 1 % (0-3); EOS # 0.2 x10^3/uL (0.0-0.7); EOS % 3 % (0-3); HEMATOCRIT 34.9 % (36.0-47.0); LYMPH % 32 % (24-48); MEAN CORPUSCULAR HEMOGLOBIN 29 pg (25-35); MEAN CORPUSCULAR HGB CONC 34 g/dL (31-37); MEAN CORPUSCULAR VOLUME 86 fL (79-100); MONO # 0.7 x10^3/uL (0.0-1.1); MONO % 11 % (0-9); NEUT # 3.3 x10^3uL (1.8-7.7); NEUT % 54 % (31-73); PLATELET COUNT 264 x10^3/uL (140-400); RED BLOOD COUNT 4.07 x10^6/uL (3.50-5.40); RED CELL DISTRIBUTION WIDTH 14.3 % (11.5-14.5); WHITE BLOOD COUNT 6.1 x10^3/uL (4.0-11.0)
[2019-02-25 07:16] LABS: ALBUMIN/GLOBULIN RATIO 1.2 (1.0-1.7); CALCIUM 7.7 mg/dL (8.5-10.1); CREATININE 0.7 mg/dL (0.6-1.0); GFR 100.4; POTASSIUM 3.5 mmol/L (3.5-5.1); TOTAL BILIRUBIN 0.8 mg/dL (0.2-1.0); TOTAL PROTEIN 5.5 g/dL (6.4-8.2)
[2019-02-25] MEDS: KETOROLAC 30 MG/ML VIAL. IV PRN ×2 (08:24→15:09)
[2019-02-25] MEDS: INSULIN LISPRO 300 UNITS/3 ML INSULN.PEN. SQ SCH ×2 (08:25→12:05)
[2019-02-25] MEDS ORDERED: AMOXICILLIN 250 MG CAPSULE PO SCH (09:00)
[2019-02-25] MEDS ORDERED: INSULIN GLARGINE 300 UNITS/3 ML INSULN.PEN. SQ SCH ×2 (09:00→21:00)
[2019-02-25] MEDS ORDERED: PANTOPRAZOLE 40 MG TABLET. PO SCH (09:00)
[2019-02-25] MEDS: METOCLOPRAMIDE 10 MG TABLET PO SCH ×2 (09:28→12:37)
--- NOTE | 2019-02-25 22:15 | DS ---
DATE OF DISCHARGE: 02/25/2019 HISTORY OF PRESENT ILLNESS: The patient was admitted on 02/23/2019 with abdominal pain, nausea, vomiting. Her blood sugar has been running fairly high over the last few days, that is not true when she was in the hospital, her blood sugar was very well controlled. Anyhow, she was evaluated in the Emergency Room. Her blood sugar on admission was 332. She was acidotic with dilutional hyponatremia. Her bicarbonate was only 5. Her white cell count was extremely high 24,500, although we could not find any focus of infection. Her urinalysis was unremarkable. Chest x-ray was negative. Toxic screen was also negative. On her last admission, we did a CT scan of the abdomen, which showed that she has loculated fluid collection in the cul-de-sac; however, the uterus and ovaries appeared within normal limits. She was admitted to the ICU, was treated with IV fluid and insulin drip and the anion gap has closed. Today's anion gap is only 11 from 17. Her sodium has normalized and her blood sugar today has been stable. Her white cell count came down without any antibiotic therapy to 6100. The patient continued to complain of abdominal pain after requesting Toradol frequently for no obvious reason. I offered to transfer the patient to [facility], but she refused and again today she refused. We did actually check given her sed rate and C-reactive protein that are normal. Her CT scan done 2 days ago was also normal. PHYSICAL EXAMINATION: GENERAL: On examining her today, she looked well and was clearly in no apparent respiratory distress. No pallor, jaundice, cyanosis, or thyromegaly. No jugular venous distension. No limb edema. VITAL SIGNS: Her heart rate was 96, blood pressure was 134/74, temperature was 97.6, respiratory rate was 16 and oxygen saturation was 96% on room air. HEAD, EYES, EARS, NOSE AND THROAT: Showed normocephalic, atraumatic. NECK: Supple. HEART: Showed normal first and second heart sounds. No gallop, rub or murmur. CHEST: Clear to auscultation. No crepitation or rhonchi. ABDOMEN: Distended, soft, nontender. No guarding or rigidity. No organomegaly. All hernial orifice intact. Bowel sounds normal. NEUROLOGIC: She was awake, alert, responding appropriately. All cranial nerves intact. She moves extremities without difficulty. She ambulates without assistance or assistive devices. Her intake was 4700, no output was recorded. LABORATORY DATA: Her lab work this morning showed serum sodium of 132, potassium 3.5, chloride 100, bicarbonate 20, anion gap of 12, BUN 11, creatinine 0.7. Estimated GFR was 100 mL per minute. Her glucose was 372, calcium was 7.7. Total bilirubin, AST, ALT, alkaline phosphatase were normal. Total protein was 5.5, albumin was 3. Her white cell count was 6100, hemoglobin 12, hematocrit 35, MCV 86 and platelet count of 264,000. Urinalysis was essentially unremarkable. Her urine was yellow, clear, pH of 5.5, specific gravity of 1.030. There was large amount of protein, large amount of glucose, large amount of ketones. On admission, there was small amount of blood, negative for nitrite and leukocyte esterase, no rbc's, no wbc's and no bacteria. Her test was negative. Her toxic screen showed the acetone level was negative. Her nasal screen for MRSA by PCR was negative. Her blood cultures have been negative. DISCHARGE MEDICATIONS: The patient was discharged home to continue on her NovoLog insulin as insulin sliding scale before meals, detemir insulin 20 units in the morning and 10 units at bedtime, metoclopramide 10 mg before meals and bedtime, omeprazole 40 mg once a day. FINAL DISCHARGE DIAGNOSES: 1. Diabetic ketoacidosis, resolved. 2. Leukocytosis, resolved. Her white cell count came down from 24,000 to 6000. I could not really appreciate any sort of infection. The patient continued to complain of generalized abdominal pain attributing to diabetic gastroparesis. She has loculated fluid in the cul-de-sac; however, the ovaries and the uterus are normal. I did offer to transfer her to [facility] as we have no gas turbine assembler to look into it, but she refused that. From my point of view, she seemed to be medically stable. She can be discharged home to continue on her home insulin regimen. ANAYELI FOSS MD DR: JOSÉ/regina JOB#: [id number] / [id number]
== END 2019-02-25 16:19 | disposition home or self-care (01) | DRG 640 ==
LOC: ER 20:44 → ICU 02-24 00:05
PROVIDERS: ADMIT Internal Medicine; ATTEND Internal Medicine
DX: E87.1 Hypo-osmolality and hyponatremia (principal); E10.10 Type 1 diabetes mellitus with ketoacidosis without coma; E10.43 Type 1 diabetes mellitus with diabetic autonomic (poly)neuropathy; E86.0 Dehydration; F41.9 Anxiety disorder, unspecified; J02.0 Streptococcal pharyngitis; K21.9 Gastro-esophageal reflux disease without esophagitis; K31.84 Gastroparesis; Z79.4 Long term (current) use of insulin; Z79.899 Other long term (current) drug therapy; Z87.440 Personal history of urinary (tract) infections
CPT/HCPCS: 36415; 71046; 80048; 80053; 81001; 81025; 82010; 82947; 85007; 85025; 87641; 93005; 96361; 96374; J1815; J1885; J2270; J3010; J8597; 99285-25; J7030

== ENCOUNTER 2019-03-04 16:57 | Emergency (ER) | payer OTHER ==
[~2019-03-04] VITALS: Ht 170.2 cm; Wt 63.5 kg
[2019-03-04] MEDS ORDERED: IV NORMAL SALINE 1,000ML 1,000 ML IV ONE (17:00)
--- NOTE | 2019-03-04 17:21 | PHYS DOC ---
Past History Past Medical History: Anxiety, Diabetes, GERD, UTI, Other Additional Past Medical Histor: pt reports several admissions for "high blood sugar" Past Surgical History: Other Smoking: Less than 1pk/day Alcohol Use: None Drug Use: Methamphetamine Adult General Chief Complaint Chief Complaint: HYPERGLYCEMIA HPI HPI 28-year-old female presents via EMS with abdominal pain and vomiting for the last 2 weeks. She tells me that today she has been unable to take any of her antiemetics. The patient was recently admitted at [facility] and tells me that her vomiting was controlled while she was admitted. Her blood sugar on arrival for EMS was 265. Patient denies fever or chills. She is well-known to the emergency room. Review of Systems Review of Systems Constitutional: Denies fever or chills [] Eyes: Denies change in visual acuity, redness, or eye pain [] HENT: Denies nasal congestion or sore throat [] Respiratory: Denies cough or shortness of breath [] Cardiovascular: No additional information not addressed in HPI [] GI: Diffuse abdominal pain, nausea, vomiting. Denies bloody stools or diarrhea [] : Denies dysuria or hematuria [] Musculoskeletal: Denies back pain or joint pain [] Integument: Denies rash or skin lesions [] Neurologic: Denies headache, focal weakness or sensory changes [] Endocrine: Denies polyuria or polydipsia [] All other systems were reviewed and found to be within normal limits, except as documented in this note. Current Medications Current Medications Current Medications Medications (Trade) Dose Ordered Sig/Chevy Start Time Stop Time Status Last Admin Dose Admin Ondansetron HCl (Zofran) 8 mg 1X ONCE 03/04/19 17:30 03/04/19 17:31 Sodium Chloride 1,000 ml @ 1,000 mls/hr 1X ONCE 03/04/19 17:00 03/04/19 17:59 Allergies Allergies Allergies Coded Allergies Type Severity Reaction Last Updated Verified acetaminophen Allergy Intermediate HIVES 01/18/18 Yes adhesive tape Allergy Intermediate 01/18/18 Yes Physical Exam Physical Exam Constitutional: Well developed, well nourished, no acute distress, non-toxic appearance. [] HENT: Normocephalic, atraumatic, bilateral external ears normal, oropharynx moist, no oral exudates, nose normal. [] Eyes: PERRLA, EOMI, conjunctiva normal, no discharge. [] Neck: Normal range of motion, no tenderness, supple, no stridor. [] Cardiovascular:Heart rate regular rhythm, no murmur [] Lungs & Thorax: Bilateral breath sounds clear to auscultation [] Abdomen: Bowel sounds normal, soft, diffuse tenderness, no masses, no pulsatile masses. [] Skin: Warm, dry, no erythema, no rash. [] Back: No tenderness, no CVA tenderness. [] Extremities: No tenderness, no cyanosis, no clubbing, ROM intact, no edema. [] Neurologic: Alert and oriented X 3, normal motor function, normal sensory function, no focal deficits noted. [] Psychologic: Affect normal, judgement normal, mood dramatic. [] EKG EKG [] Radiology/Procedures Radiology/Procedures [] Course & Med Decision Making Course & Med Decision Making Pertinent Labs and Imaging studies reviewed. (See chart for details) The patient's workup is pending. I'm signing the patient out to Dr. Camilo at 1800. [] Dragon Disclaimer Dragon Disclaimer This electronic medical record was generated, in whole or in part, using a voice recognition dictation system. Departure Departure: Impression: Primary Impression: Abdominal pain Additional Impression: Hyperglycemia Referrals: PCP,NO (PCP) Problem Qualifiers ROXY SU DO Mar 04, 2019 17:21
[2019-03-04] MEDS ORDERED: ONDANSETRON PF 4 MG/2 ML VIAL. IV ONE (17:30)
[2019-03-04 18:13] LABS: BASO % 1 % (0-3); EOS % 0 % (0-3); HEMATOCRIT 36.1 % (36.0-47.0); HEMOGLOBIN 12.2 g/dL (12.0-15.5); LYMPH # 0.9 x10^3/uL (1.0-4.8); LYMPH % 24 % (24-48); MEAN CORPUSCULAR HEMOGLOBIN 29 pg (25-35); MEAN CORPUSCULAR HGB CONC 34 g/dL (31-37); MEAN CORPUSCULAR VOLUME 86 fL (79-100); MONO # 0.4 x10^3/uL (0.0-1.1); MONO % 12 % (0-9); NEUT # 2.3 x10^3uL (1.8-7.7); NEUT % 63 % (31-73); PLATELET COUNT 251 x10^3/uL (140-400); RED BLOOD COUNT 4.19 x10^6/uL (3.50-5.40); RED CELL DISTRIBUTION WIDTH 14.6 % (11.5-14.5); WHITE BLOOD COUNT 3.6 x10^3/uL (4.0-11.0)
[2019-03-04] MEDS ORDERED: KETOROLAC 30 MG/ML VIAL. IV ONE (18:15)
[2019-03-04 18:31] LABS: ALBUMIN 3.2 g/dL (3.4-5.0); ALBUMIN/GLOBULIN RATIO 1.2 (1.0-1.7); CALCIUM 8.2 mg/dL (8.5-10.1); CREATININE 0.6 mg/dL (0.6-1.0); GFR 119.9; POTASSIUM 3.2 mmol/L (3.5-5.1); TOTAL BILIRUBIN 0.8 mg/dL (0.2-1.0); TOTAL PROTEIN 5.9 g/dL (6.4-8.2)
[2019-03-04] MEDS ORDERED: ONDA8TAB9 PO (18:56)
[2019-03-04] MEDS ORDERED: POTASSIUM CHLORIDE 20 MEQ/15 ML ORAL LIQUID. PO ONE (19:00)
[2019-03-04] MEDS ORDERED: FAMOTIDINE 20 MG TABLET PO ONE (19:00)
[2019-03-04] MEDS ORDERED: MAGNESIUM HYDROXIDE 2,400 MG/30 ML ORAL.SUSP. PO ONE (19:00)
[2019-03-04 19:39] LABS: BILIRUBIN,URINE NEG (NEG); CLARITY,URINE HAZY; COLOR,URINE YELLOW; GLUCOSE,URINE 500 mg/dL (NEG); NITRITE,URINE NEG (NEG); UROBILINOGEN,URINE 2 mg/dL (0.2 mg/dL)
[2019-03-04 19:40] LABS: BACTERIA,URINE FEW /HPF (0-FEW); RBC,URINE 0 /HPF (0-2); SQUAMOUS EPITHELIAL CELL,UR OCC /LPF; WBC,URINE 0 /HPF (0-4)
[2019-03-04 19:46] LABS: BARBITURATES NEG (NEG); BENZODIAZEPINES NEG (NEG); CANNABINOIDS NEG (NEG); COCAINE NEG (NEG); METHADONE NEG (NEG); OPIATES NEG (NEG); PHENCYCLIDINE NEG (NEG)
[2019-03-04 19:47] LABS: AMPHETAMINE/METHAMPHETAMINE NEG (NEG)
[2019-03-04] MEDS ORDERED: diphenhydrAMINE 50 MG/ML VIAL IM ONE (20:00)
[2019-03-04] MEDS ORDERED: PROCHLORPERAZINE 10 MG/2 ML VIAL. IM ONE (20:00)
[2019-03-04] MEDS ORDERED: IV RINGERS SOLUTION,LACTATED 1,000 ML IV ONE (20:00)
[2019-03-04 21:00] VITALS: BP 120/70
--- NOTE | 2019-03-05 08:18 | RAD ---
2 view abdominal series and PA view chest x-ray Clinical indications: Nausea and vomiting and abdominal pain. COMPARISON: February 20, 2019. FINDINGS: Moderate fecal retention is seen throughout the colon and rectosigmoid region. No dilatation of the colon or small bowel is evident. No air-fluid levels are seen. No free intraperitoneal air is evident. Vascular calcifications are seen within the right side of the anatomic pelvis. Chest x-ray demonstrates no acute lung infiltrate or pleural effusion or pulmonary edema or pneumothorax. The heart size and pulmonary vasculature and mediastinum and both lyndsay are unremarkable. IMPRESSION: Moderate fecal retention. No acute radiographic abnormality is evident. Electronically signed by: Gil Montanez MD (03/05/2019 8:15 AM) [id number]
== END 2019-03-04 22:00 | disposition home or self-care (01) ==
LOC: ER 16:57
DX: R10.84 Generalized abdominal pain (principal); R11.2 Nausea with vomiting, unspecified; E11.65 Type 2 diabetes mellitus with hyperglycemia; R74.0 Nonspecific elevation of levels of transaminase and lactic acid dehydrogenase [LDH]; F19.10 Other psychoactive substance abuse, uncomplicated; F41.9 Anxiety disorder, unspecified; K21.9 Gastro-esophageal reflux disease without esophagitis; F17.210 Nicotine dependence, cigarettes, uncomplicated; F15.10 Other stimulant abuse, uncomplicated; Z87.440 Personal history of urinary (tract) infections; Z88.6 Allergy status to analgesic agent; Z88.8 Allergy status to other drugs, medicaments and biological substances
CPT/HCPCS: 36415; 74022; 80053; 80307; 81001; 85025; 96361; 96372; 96374; 96375; 99285; J0780; J1200; J1885; J2405; J7120; J7030

== ENCOUNTER 2020-11-30 16:46 | Emergency (ER) | payer SELFPAY ==
[~2020-11-30] VITALS: Ht 170.2 cm; Wt 69.3 kg
[~2020-11-30 16:46] MED LIST changes: -BUPR-192 PO; +BUPR150T7 PO; -CLIN300C8 PO; +CLIN300C9 PO; -MAGN400T3 PO; +MAGN400T5 PO; +OMEP40CA45 PO; -OMEP40CA5 PO; +ONDA-84 PO; -ONDA4TAB11 PO; +ONDA8TAB9 PO; -PANT40TA5 PO; +PANT40TA6 PO; +POTA20TA4 PO; -POTA20TA82 PO; +RANI-376 PO; -RANI150T21 PO
--- NOTE | 2020-11-30 17:07 | PHYS DOC ---
Past History Past Medical History: Anxiety, Diabetes, GERD, UTI, Other Additional Past Medical Histor: pt reports several admissions for "high blood sugar" gastroporesis (BRENDA BAKER DO) Past Surgical History: Other (BRENDA BAKER DO) Smoking: Less than 1pk/day Alcohol Use: None Drug Use: None (BRENDA BAKER DO) Adult General Chief Complaint Chief Complaint: BLOOD SUGAR PROBLEM HPI HPI Patient is a 30-year-old female who presents with her mother for nausea and vomit. Patient has known history of type 1 diabetes and has been in DKA numerous times, states she has been nauseous and had 5-10 episodes of nonbloody nonbilious emesis starting earlier this morning without fever, any known sick contacts, travel or concerning ingestion. (BRENDA BAKER DO) Review of Systems Review of Systems Fourteen body systems of review of systems have been reviewed. See HPI for pertinent positives and negative responses, other bustos all other systems are negative, non-pertinent or non-contributory (BRENDA BAKER DO) Allergies Allergies Allergies Coded Allergies Type Severity Reaction Last Updated Verified acetaminophen Allergy Intermediate HIVES 11/30/20 Yes adhesive tape Allergy Intermediate 11/30/20 Yes (BRENDA BAKER DO) Physical Exam Physical Exam Constitutional: Well developed, well nourished, no acute distress, non-toxic appearance. HENT: Normocephalic, atraumatic, bilateral external ears normal, oropharynx moist, no oral exudates, nose normal. Eyes: PERRLA, EOMI, conjunctiva normal, no discharge. Neck: Normal range of motion, no tenderness, supple, no stridor. Cardiovascular: Heart rate regular, sinus rhythm, no murmurs rubs or gallops Lungs & Thorax: Bilateral breath sounds clear to auscultation Abdomen: Bowel sounds normal, soft, no tenderness, no masses, no pulsatile masses. Nonsurgical abdomen, no peritoneal signs Skin: Warm, dry, no erythema, no rash. Back: No tenderness, no CVA tenderness. Extremities: No tenderness, no cyanosis, no clubbing, ROM intact, no edema. Neurologic: Alert and oriented X 3, grossly normal motor & sensory function, no focal deficits noted. Psychologic: Affect normal, judgement normal, mood normal. (BRENDA BAKER DO) Current Patient Data Vital Signs Vital Signs Date Time Temp Pulse Resp B/P (MAP) Pulse Ox O2 Delivery O2 Flow Rate FiO2 11/30/20 17:01 98.4 102 18 135/88 (104) 99 Room Air Lab Results Laboratory Tests Test 11/30/20 17:04 11/30/20 17:08 11/30/20 17:10 11/30/20 18:44 Bedside Venous pH 7.53 Bedside Venous pCO2 33 mmHg Bedside Venous pO2 90 mmHg Venous Blood HCO3 28 mmol/L POC Venous O2 Saturation (Angelique) 98 % Bedside FiO2 21 White Blood Count 9.9 x10^3/uL Red Blood Count 4.15 x10^6/uL Hemoglobin 12.0 g/dL Hematocrit 35.5 % Mean Corpuscular Volume 86 fL Mean Corpuscular Hemoglobin 29 pg Mean Corpuscular Hemoglobin Concent 34 g/dL Red Cell Distribution Width 14.8 % Platelet Count 324 x10^3/uL Neutrophils (%) (Auto) 60 % Lymphocytes (%) (Auto) 30 % Monocytes (%) (Auto) 7 % Eosinophils (%) (Auto) 2 % Basophils (%) (Auto) 1 % Neutrophils # (Auto) 5.9 x10^3uL Lymphocytes # (Auto) 3.0 x10^3/uL Monocytes # (Auto) 0.7 x10^3/uL Eosinophils # (Auto) 0.2 x10^3/uL Basophils # (Auto) 0.1 x10^3/uL Sodium Level 136 mmol/L Potassium Level 3.7 mmol/L Chloride Level 100 mmol/L Carbon Dioxide Level 26 mmol/L Anion Gap 10 Blood Urea Nitrogen 35 mg/dL Creatinine 0.9 mg/dL Estimated GFR (Cockcroft-Gault) 74.0 BUN/Creatinine Ratio 39 Glucose Level 199 mg/dL Calcium Level 9.2 mg/dL Total Bilirubin 0.6 mg/dL Aspartate Amino Transf (AST/SGOT) 12 U/L Alanine Aminotransferase (ALT/SGPT) 19 U/L Alkaline Phosphatase 68 U/L Total Protein 7.6 g/dL Albumin 4.0 g/dL Albumin/Globulin Ratio 1.1 Acetone Level Neg Glucose (Fingerstick) 199 mg/dL Urine Collection Type Unknown Urine Color Yellow Urine Clarity Cloudy Urine pH 5.5 Urine Specific [place] 1.020 Urine Protein 100 mg/dl Urine Glucose (UA) >=1000 mg/dL Urine Ketones (Stick) >=160 mg/dL Urine Blood Large Urine Nitrite Pos Urine Bilirubin Small Urine Urobilinogen Dipstick 1.0 mg/dL Urine Leukocyte Esterase Mod Urine RBC >40 /HPF Urine WBC >40 /HPF Urine Squamous Epithelial Cells Many /LPF Urine Bacteria Mod /HPF Urine Opiates Screen Pos Urine Methadone Screen Neg Urine Barbiturates Neg Urine Phencyclidine Screen Neg Urine Amphetamine/Methamphetamine Pos Urine Benzodiazepines Screen Neg Urine Cocaine Screen Neg Urine Cannabinoids Screen Pos Urine Ethyl Alcohol Neg Current Medications Medications (Trade) Dose Ordered Sig/Chevy Route PRN Reason Start Time Stop Time Status Last Admin Dose Admin Sodium Chloride 1,000 ml @ 1,000 mls/hr Q1H IV 11/30/20 17:15 11/30/20 18:14 DC 11/30/20 17:13 Ondansetron HCl (Zofran) 4 mg 1X ONCE IVP 11/30/20 17:15 11/30/20 17:20 DC 11/30/20 17:17 Prochlorperazine Edisylate (Compazine) 10 mg 1X ONCE IV 11/30/20 17:30 11/30/20 17:31 DC 11/30/20 17:31 Morphine Sulfate (Morphine 4mg Syringe) 4 mg 1X ONCE IV 11/30/20 17:45 11/30/20 17:46 DC 11/30/20 17:37 Morphine Sulfate (Morphine 4mg Syringe) 4 mg STK-MED ONCE .ROUTE 11/30/20 17:35 11/30/20 17:35 DC Lactated Ringer's 1,000 ml @ 1,000 mls/hr 1X ONCE IV 11/30/20 19:00 11/30/20 19:59 DC 11/30/20 19:13 Ceftriaxone Sodium 1 gm/ Sodium Chloride 50 ml @ 100 mls/hr 1X ONCE IV 11/30/20 20:15 11/30/20 20:26 DC 11/30/20 20:00 Sodium Chloride 50 ml @ As Directed STK-MED ONCE .ROUTE 11/30/20 20:13 11/30/20 20:13 DC Ceftriaxone Sodium (Rocephin) 1 gm STK-MED ONCE .ROUTE 11/30/20 20:13 11/30/20 20:13 DC (BRENDA BAKER DO) EKG EKG EKG ordered and interpreted by myself at 1750 hrs. as sinus rhythm at 77 bpm, unremarkable intervals, no axis deviation, no ischemic findings, no STEMI (BRENDA BAKER DO) Radiology/Procedures Radiology/Procedures EXAM: CHEST 1 VIEW History: Nausea, vomiting COMPARISON: None available. TECHNIQUE: Single portable radiograph of the chest FINDINGS: The cardiac silhouette is unremarkable. Minimal bibasilar lung atelectasis or infiltrates. The costophrenic sulci are clear and well demarcated. . IMPRESSION: Minimal bibasilar atelectasis or infiltrates. Electronically signed by: Clint Plascencia MD (11/30/2020 6:16 PM) [id number] (BRENDA BAKER DO) Heart Score HEART Score for Chest Pain: HEART Score for Chest Pain Response (Comments) Value History Slighlty/Non-Suspicious 0 ECG Normal 0 Age < 45 0 Risk Factors 1 or 2 Risk Factors 1 Troponin < Normal Limit 0 Total 1 Risk Factors: Risk Factors: DM, Current or recent (<one month) smoker, HTN, HLP, family history of CAD, obesity. Risk Scores: Risk Factors: DM, Current or recent (<one month) smoker, HTN, HLP, family history of CAD, obesity. (BRENDA BAKER DO) Course & Med Decision Making Course & Med Decision Making Patient initially seen by myself with workup and intervention started. I signed out patient to Dr. Camilo, please defer to his documentation regarding rest of patient's care while in our ER (BRENDA BAKER DO) Course & Med Decision Making See Dr. Baker chart for details. Pt. requesting discharge after IV fluids' Patient encouraged to avoid polysubstance abuse. Patient encouraged to push fluids. Patient to be compliant with her diabetic meds. Patient to follow-up with primary care review ED work-up. Patient does take Keflex 500 mg 3 times a day. Patient did receive a dose of Rocephin prior to discharge. Patient follow-up pending cultures. Patient return if any concerns. Impression: 1. Hyperglycemia- DM 2. Dehydration 3. Polysubstance abuse + , Tob, marijuana, narcotics, methamphetamine 4. UTI (YELENA CAMILO MD) Dragon Disclaimer Dragon Disclaimer This electronic medical record was generated, in whole or in part, using a voice recognition dictation system. (BRENDA BAKER DO) Departure Departure: Impression: Primary Impression: Hyperglycemia Additional Impressions: Type 1 diabetes mellitus UTI (urinary tract infection) Substance abuse Disposition: 01 DC HOME SELF CARE/HOMELESS Condition: IMPROVED Referrals: PCP,NO (PCP) Scripts Ondansetron Hcl (ZOFRAN) 4 Mg Tablet 8 MG PO QIDPRN PRN for NAUSEA/VOMITING, #30 TAB Prov: YELENA CAMILO MD 11/30/20 Fluconazole (DIFLUCAN) 100 Mg Tablet 100 MG PO DAILY for post antibiotics for 3 Days, #3 TAB Prov: YELENA CAMILO MD 11/30/20 Cephalexin (KEFLEX) 750 Mg Capsule 750 MG PO TID for UTI for 7 Days, #21 CAP Prov: YELENA CAMILO MD 11/30/20 Dragon Disclaimer This chart was dictated in whole or in part using Voice Recognition software in a busy, high-work load, and often noisy Emergency Department environment. It may contain unintended and wholly unrecognized errors or omissions. (YELENA CAMILO MD) Dragon Disclaimer This chart was dictated in whole or in part using Voice Recognition software in a busy, high-work load, and often noisy Emergency Department environment. It may contain unintended and wholly unrecognized errors or omissions. (BRENDA BAKER DO) Problem Qualifiers BRENDA BAKER DO Nov 30, 2020 17:06 YELENA CAMILO MD Dec 01, 2020 02:20
[2020-11-30] MEDS ORDERED: ONDANSETRON PF 4 MG/2 ML VIAL. IVP ONE (17:15)
[2020-11-30] MEDS ORDERED: IV NORMAL SALINE 1,000ML 1,000 ML IV SCH (17:15)
[2020-11-30] MEDS ORDERED: PROCHLORPERAZINE 10 MG/2 ML VIAL. IV ONE (17:30)
[2020-11-30] MEDS ORDERED: MORPHINE SULFATE 4 MG/ML DISP.SYRIN. ONE (17:35)
[2020-11-30 17:39] LABS: BASO # 0.1 x10^3/uL (0.0-0.2); BASO % 1 % (0-3); EOS # 0.2 x10^3/uL (0.0-0.7); EOS % 2 % (0-3); HEMATOCRIT 35.5 % (36.0-47.0); LYMPH % 30 % (24-48); MEAN CORPUSCULAR HEMOGLOBIN 29 pg (25-35); MEAN CORPUSCULAR HGB CONC 34 g/dL (31-37); MEAN CORPUSCULAR VOLUME 86 fL (79-100); MONO # 0.7 x10^3/uL (0.0-1.1); MONO % 7 % (0-9); NEUT # 5.9 x10^3uL (1.8-7.7); NEUT % 60 % (31-73); PLATELET COUNT 324 x10^3/uL (140-400); RED BLOOD COUNT 4.15 x10^6/uL (3.50-5.40); RED CELL DISTRIBUTION WIDTH 14.8 % (11.5-14.5); WHITE BLOOD COUNT 9.9 x10^3/uL (4.0-11.0)
[2020-11-30 17:43] LABS: CALCIUM 9.2 mg/dL (8.5-10.1); CREATININE 0.9 mg/dL (0.6-1.0); POTASSIUM 3.7 mmol/L (3.5-5.1)
[2020-11-30] MEDS ORDERED: MORPHINE SULFATE 4 MG/ML DISP.SYRIN. IV ONE (17:45)
[2020-11-30 17:49] LABS: ALBUMIN/GLOBULIN RATIO 1.1 (1.0-1.7); TOTAL BILIRUBIN 0.6 mg/dL (0.2-1.0); TOTAL PROTEIN 7.6 g/dL (6.4-8.2)
--- NOTE | 2020-11-30 18:03 | EKG ---
[address] [address] Test Date: 2020-11-30 Test Time: 17:48:02 Pat Name: CHALO RAYMUNDO Department: Room: Gender: F Machine Tester: CORNEL : 1990 Requested By: BRENDA BAKER Order Number: [id number] Reading MD: Measurements Intervals [place] Rate: 77 P: 69 AR: 128 QRS: 78 QRSD: 86 T: 67 QT: 362 QTc: 411 Interpretive Statements SINUS RHYTHM NORMAL ECG RI6.02 No previous ECG available for comparison
--- NOTE | 2020-11-30 18:19 | RAD ---
EXAM: CHEST 1 VIEW History: Nausea, vomiting COMPARISON: None available. TECHNIQUE: Single portable radiograph of the chest FINDINGS: The cardiac silhouette is unremarkable. Minimal bibasilar lung atelectasis or infiltrates. The costophrenic sulci are clear and well demarcated. . IMPRESSION: Minimal bibasilar atelectasis or infiltrates. Electronically signed by: Clint Plascencia MD (11/30/2020 6:16 PM) [id number]
[2020-11-30] MEDS ORDERED: IV RINGERS SOLUTION,LACTATED 1,000 ML IV ONE (19:00)
[2020-11-30 19:09] LABS: BARBITURATES NEG (NEG); BENZODIAZEPINES NEG (NEG); CANNABINOIDS POS (NEG); COCAINE NEG (NEG); METHADONE NEG (NEG); OPIATES POS (NEG); PHENCYCLIDINE NEG (NEG)
[2020-11-30 19:10] LABS: AMPHETAMINE/METHAMPHETAMINE POS (NEG)
[2020-11-30 19:12] LABS: CLARITY,URINE CLOUDY; COLOR,URINE YELLOW; GLUCOSE,URINE >=1000 mg/dL (NEG)
[2020-11-30 19:13] LABS: BILIRUBIN,URINE SMALL (NEG); NITRITE,URINE POS (NEG); RBC,URINE >40 /HPF (0-2)
[2020-11-30 19:14] LABS: BACTERIA,URINE MOD /HPF (0-FEW); SQUAMOUS EPITHELIAL CELL,UR MANY /LPF; WBC,URINE >40 /HPF (0-4)
[2020-11-30] MEDS ORDERED: cefTRIAXone SODIUM 1 GM VIAL ONE (20:13)
[2020-11-30] MEDS ORDERED: IV NORMAL SALINE 50ML 50 ML ONE (20:13)
[2020-11-30] MEDS ORDERED: ONDA4TAB7 PO (20:17)
[2020-11-30] MEDS ORDERED: FLUC100T7 PO (20:17)
[2020-11-30] MEDS ORDERED: CEPH750C9 PO (20:17)
[2020-11-30 20:25] VITALS: BP 145/94
== END 2020-11-30 20:25 | disposition home or self-care (01) ==
LOC: ER 16:46
DX: E10.65 Type 1 diabetes mellitus with hyperglycemia (principal); N39.0 Urinary tract infection, site not specified; R11.2 Nausea with vomiting, unspecified; R09.81 Nasal congestion; F41.9 Anxiety disorder, unspecified; K21.9 Gastro-esophageal reflux disease without esophagitis; F17.200 Nicotine dependence, unspecified, uncomplicated; Z98.890 Other specified postprocedural states; Z88.2 Allergy status to sulfonamides; Z88.8 Allergy status to other drugs, medicaments and biological substances
CPT/HCPCS: 36415; 71045; 80053; 80307; 81001; 82010; 82803; 82947; 85025; 87086; 87491; 87591; 93005; 96361; 96365; 96375; 99285; J0696; J0780; J2270; J2405; J7030; J7120

== ENCOUNTER → 2020-12-22 | Emergency (ER) | payer SELFPAY ==
[2020-11-30 20:25] VITALS: BP 145/94
[~2020-12-22] MED LIST changes: +CEPH750C9 PO; -CIPR500T PO; +CIPR500T2 PO; +FAMOTIDINE 20 MG/2 ML VIAL IVP ONE; +FLUC100T7 PO; +IV NORMAL SALINE 1,000ML 1,000 ML IV SCH; +IV RINGERS SOLUTION,LACTATED 1,000 ML IV SCH; -LISI-338 PO; +LISI-517 PO; +ONDANSETRON PF 4 MG/2 ML VIAL. IVP ONE
--- NOTE | 2020-12-22 18:51 | PHYS DOC ---
Past History Past Medical History: Anxiety, Diabetes, GERD, UTI, Other Additional Past Medical Histor: pt reports several admissions for "high blood sugar" gastroporesis Past Surgical History: Other Smoking: Less than 1pk/day Alcohol Use: None Drug Use: None General Adult EDM: Chief Complaint: NAUSEA/VOMITING/DIARRHEA HPI: HPI: Patient is a 30 year old female who presents with above hx and complaints of nausea,vomiting and epigastric pain. ( Note pt. left from Lobby while waiting for room to open up.) Review of Systems: Review of Systems: Constitutional: Eyes: HENT: Respiratory: Cardiovascular: Complaints of epigastric pain GI: Complains abdominal pain, nausea, vomiting, : Lymphatic: Psychiatric: Musculoskeletal: Integument: Neurologic: Endo: Complaints of high glucose levels Allergies: Allergies: Allergies Coded Allergies Type Severity Reaction Last Updated Verified acetaminophen Allergy Intermediate HIVES 11/30/20 Yes adhesive tape Allergy Intermediate 11/30/20 Yes Physical Exam: PE: Pt. left before placed in room for exam. EKG: EKG: [] Radiology/Procedures: Radiology/Procedures: [] Heart Score: Risk Factors: Risk Factors: DM, Current or recent (<one month) smoker, HTN, HLP, family history of CAD, obesity. Risk Scores: Score 0 - 3: 2.5% MACE over next 6 weeks - Discharge Home Score 4 - 6: 20.3% MACE over next 6 weeks - Admit for Clinical Observation Score 7 - 10: 72.7% MACE over next 6 weeks - Early Invasive Strategies Course & Med Decision Making: Course & Med Decision Making Pertinent Labs and Imaging studies reviewed. (See chart for details) Pt.left from lobby before placed in room. Approx. 1900 Hrs.not found in waiting room. Impression: 1. Hx. DKA 2. Hx., Polysubstance Abuse 3. Hx. Non-compliance 4. Hx Gastroparesis 5. Hx. Dehydration [] Dragon Disclaimer: Dragon Disclaimer: This electronic medical record was generated, in whole or in part, using a voice recognition dictation system. Departure Departure: Referrals: PCP,NO (PCP) Abdirashidon Disclaimer This chart was dictated in whole or in part using Voice Recognition software in a busy, high-work load, and often noisy Emergency Department environment. It may contain unintended and wholly unrecognized errors or omissions. Dragon Disclaimer This chart was dictated in whole or in part using Voice Recognition software in a busy, high-work load, and often noisy Emergency Department environment. It may contain unintended and wholly unrecognized errors or omissions. YELENA HENRY MD Dec 22, 2020 18:51
== END | disposition left against medical advice (07) ==
LOC: ER 18:37
DX: R11.2 Nausea with vomiting, unspecified (principal); R10.13 Epigastric pain; E11.10 Type 2 diabetes mellitus with ketoacidosis without coma; F19.10 Other psychoactive substance abuse, uncomplicated; F41.9 Anxiety disorder, unspecified; E11.9 Type 2 diabetes mellitus without complications; K21.9 Gastro-esophageal reflux disease without esophagitis; F17.200 Nicotine dependence, unspecified, uncomplicated; Z87.440 Personal history of urinary (tract) infections; Z53.21 Procedure and treatment not carried out due to patient leaving prior to being seen by health care provider; Z88.8 Allergy status to other drugs, medicaments and biological substances
CPT/HCPCS: 82947

== ENCOUNTER 2020-12-23 03:40 | Inpatient (IN) | payer SELFPAY ==
[~2020-12-23] VITALS: Ht 170.2 cm; Wt 57.1 kg
[~2020-12-23 03:40] MED LIST changes: -FAMOTIDINE 20 MG/2 ML VIAL IVP ONE; -IV NORMAL SALINE 1,000ML 1,000 ML IV SCH; -IV RINGERS SOLUTION,LACTATED 1,000 ML IV SCH; -ONDANSETRON PF 4 MG/2 ML VIAL. IVP ONE
[2020-12-23] MEDS ORDERED: ONDANSETRON PF 4 MG/2 ML VIAL. ONE (03:43)
[2020-12-23] MEDS ORDERED: IV RINGERS SOLUTION,LACTATED 1,000 ML IV SCH (04:00)
[2020-12-23] MEDS ORDERED: IV NORMAL SALINE 1,000ML 1,000 ML IV SCH (04:00)
--- NOTE | 2020-12-23 04:04 | PHYS DOC ---
Past History Past Medical History: Anxiety, Diabetes, GERD, UTI, Other Additional Past Medical Histor: pt reports several admissions for "high blood sugar" gastroporesis Past Surgical History: Other Smoking: Less than 1pk/day Alcohol Use: None Drug Use: None General Adult HPI: HPI: ".. I am vomiting again.. I hurt everywhere... I was here earlier.. I just did not want to wait.. so I left..." Patient is a 30 year old female who presents with complaints of cyclic vomiting and generalized abdomen pain. Patient is well-known to emergency department staff for frequent admissions for cyclic vomiting, DKA, and polysubstance abuse. Patient was checked in earlier in the emergency department however became inpatient waiting for room to come back . Patient has past medical history of diabetes, diabetic gastroparesis, diabetic ketoacidosis, peripheral neuropathy, polysubstance abuse, MRSA, cellulitis, abscesses, anxiety, depression and noncompliance. Patient returned by ambulance with same complaints with earlier in the shift. Patient denies any current tobacco use or alcohol use. Review of Systems: Review of Systems: Constitutional: Denies fever or chills Eyes: Denies change in visual acuity HENT: Denies nasal congestion or sore throat Respiratory: Denies cough or shortness of breath Cardiovascular: Denies chest pain or edema GI: Complains of generalized abdominal pain, nausea, vomiting. Denies, bloody stools or diarrhea : Denies dysuria Musculoskeletal: Denies back pain or joint pain Integument: Denies rash Neurologic: Denies headache, focal weakness or sensory changes Endocrine: Denies polyuria or polydipsia Lymphatic: Denies swollen glands Psychiatric: Denies depression or anxiety Family History: Family History: Diabetes Current Medications: Current Meds: Current Medications Medications (Trade) Dose Ordered Sig/Chevy Start Time Stop Time Status Last Admin Dose Admin Famotidine (Pepcid Vial) 20 mg 1X ONCE 12/23/20 04:30 12/23/20 04:31 Lactated Ringer's 1,000 ml @ 1,000 mls/hr Q1H 12/23/20 04:00 12/23/20 04:59 Morphine Sulfate (Morphine 10mg Syringe) 10 mg 1X ONCE 12/23/20 04:30 12/23/20 04:31 Ondansetron HCl (Zofran) 8 mg 1X ONCE 12/23/20 04:30 12/23/20 04:31 Sodium Chloride 1,000 ml @ 1,000 mls/hr Q1H 12/23/20 04:00 12/23/20 04:59 Allergies: Allergies: Allergies Coded Allergies Type Severity Reaction Last Updated Verified acetaminophen Allergy Intermediate HIVES 11/30/20 Yes adhesive tape Allergy Intermediate 11/30/20 Yes Physical Exam: PE: Constitutional: in acute distress, non-toxic appearance. [] HENT: Normocephalic, atraumatic, bilateral external ears normal, oropharynx dry, no oral exudates, nose normal. [] Eyes: PERRLA, EOMI, conjunctiva normal, no discharge. [] Neck: Normal range of motion, no tenderness, supple, no stridor. [] Cardiovascular:Heart rate regular rhythm, no murmur [] Lungs & Thorax: Bilateral breath sounds equal apex with few scattered wheezes auscultation [] Abdomen: Bowel sounds decreased, soft, generalized tenderness, no masses, no pulsatile masses. Rebound epigastric area. Distended. Skin: Warm, dry, no erythema, no rash. Poor turgor Back: No tenderness, no CVA tenderness. [] Extremities: No tenderness, no cyanosis, no clubbing, ROM intact, no edema. No cording. No psoas sign. Neurologic: Alert and oriented X 3, moves all extremities on request, has decreased peripheral sensory in feet and legs, no new focal deficits noted. [] Psychologic: Affect anxious, judgement normal, mood depressed EKG: EKG: My interpretation of EKG shows a sinus rhythm at 77 bpm. No acute morphology [] Radiology/Procedures: Radiology/Procedures: [][address] [address] IMAGING REPORT Signed PATIENT: CHALO RAYMUNDO ACCOUNT: [id number] : 1990 LOCATION: ER AGE: 30 SEX: F EXAM STATUS: REG ER ORD. PHYSICIAN: YELENA HENRY MD REASON: Abdomen pain, N/V PROCEDURE: ACUTE ABDOMEN SERIES PA chest and AP upright supine abdomen x-rays HISTORY: Abdominal pain, nausea and vomiting. FINDINGS: Heart and mediastinum are normal. No pulmonary opacities. No pleural effusions. No pneumoperitoneum. Moderate volume of stool. Right pelvic phlebol iths stable to prior abdominal imaging. Transitional L5 lumbar vertebra. No dilated bowel loops or abnormal air-fluid levels to suggest small bowel obstruction. IMPRESSION: Moderate volume of stool within the large bowel. No small bowel obstruction. No acute process in the chest. Electronically signed by: Megan Marin MD (12/23/2020 6:05 AM) [facility] [place]ATED AND SIGNED BY: MEGAN MARIN MD DATE: 12/23/20602 CC: YELENA HENRY MD; PCP,NO ~MTH0 0 Heart Score: HEART Score for Chest Pain: HEART Score for Chest Pain Response (Comments) Value History Slighlty/Non-Suspicious 0 ECG Normal 0 Age < 45 0 Risk Factors 1 or 2 Risk Factors 1 Troponin < Normal Limit 0 Total 1 Risk Factors: Risk Factors: DM, Current or recent (<one month) smoker, HTN, HLP, family history of CAD, obesity. Risk Scores: Score 0 - 3: 2.5% MACE over next 6 weeks - Discharge Home Score 4 - 6: 20.3% MACE over next 6 weeks - Admit for Clinical Observation Score 7 - 10: 72.7% MACE over next 6 weeks - Early Invasive Strategies Course & Med Decision Making: Course & Med Decision Making Pertinent Labs and Imaging studies reviewed. (See chart for details) Discussed presentation, testing and treatment plan with Dr. Pereira. Admit for re- hydration, IV meds for cyclic vomiting. Impression: 1. Abdomen Pain 2. Nausea and Vomiting 3. Cyclic Vomiting 4. Diabetes glucose 267 5. Constipation [] Dragon Disclaimer: Dragon Disclaimer: This electronic medical record was generated, in whole or in part, using a voice recognition dictation system. Departure Departure: Referrals: PCP,NO (PCP) Abdirashidon Disclaimer This chart was dictated in whole or in part using Voice Recognition software in a busy, high-work load, and often noisy Emergency Department environment. It may contain unintended and wholly unrecognized errors or omissions. Dragon Disclaimer This chart was dictated in whole or in part using Voice Recognition software in a busy, high-work load, and often noisy Emergency Department environment. It may contain unintended and wholly unrecognized errors or omissions. Dragon Disclaimer This chart was dictated in whole or in part using Voice Recognition software in a busy, high-work load, and often noisy Emergency Department environment. It may contain unintended and wholly unrecognized errors or omissions. YELENA HENRY MD Dec 23, 2020 04:04
--- NOTE | 2020-12-23 04:07 | EKG ---
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
[2020-12-23] MEDS ORDERED: FAMOTIDINE 20 MG/2 ML VIAL IVP ONE (04:30)
[2020-12-23] MEDS ORDERED: ONDANSETRON PF 4 MG/2 ML VIAL. IVP ONE (04:30)
[2020-12-23] MEDS ORDERED: MORPHINE SULFATE 10 MG/ML SYRINGE. SQ ONE (04:30)
[2020-12-23 04:52] LABS: BASO % 0 % (0-3); EOS % 0 % (0-3); HEMATOCRIT 39.9 % (36.0-47.0); HEMOGLOBIN 13.1 g/dL (12.0-15.5); LYMPH # 0.8 x10^3/uL (1.0-4.8); LYMPH % 11 % (24-48); MEAN CORPUSCULAR HEMOGLOBIN 29 pg (25-35); MEAN CORPUSCULAR HGB CONC 33 g/dL (31-37); MEAN CORPUSCULAR VOLUME 88 fL (79-100); MONO # 0.1 x10^3/uL (0.0-1.1); MONO % 2 % (0-9); NEUT # 6.1 x10^3uL (1.8-7.7); NEUT % 87 % (31-73); PLATELET COUNT 259 x10^3/uL (140-400); RED BLOOD COUNT 4.52 x10^6/uL (3.50-5.40); RED CELL DISTRIBUTION WIDTH 14.6 % (11.5-14.5); WHITE BLOOD COUNT 7.1 x10^3/uL (4.0-11.0)
[2020-12-23 05:04] LABS: CALCIUM 8.9 mg/dL (8.5-10.1); CREATININE 0.9 mg/dL (0.6-1.0); POTASSIUM 4.4 mmol/L (3.5-5.1)
[2020-12-23 05:10] LABS: ALBUMIN 4.4 g/dL (3.4-5.0); DIRECT BILIRUBIN 0.2 mg/dL (0.0-0.2); TOTAL BILIRUBIN 0.6 mg/dL (0.2-1.0); TOTAL PROTEIN 8.1 g/dL (6.4-8.2)
[2020-12-23] MEDS ORDERED: ONDANSETRON PF 4 MG/2 ML VIAL. IVP PRN (06:00)
--- NOTE | 2020-12-23 06:07 | RAD ---
PA chest and AP upright supine abdomen x-rays HISTORY: Abdominal pain, nausea and vomiting. FINDINGS: Heart and mediastinum are normal. No pulmonary opacities. No pleural effusions. No pneumope ritoneum. Moderate volume of stool. Right pelvic phleboliths stable to prior abdominal imaging. Trans itional L5 lumbar vertebra. No dilated bowel loops or abnormal air-fluid levels to suggest small herbie l obstruction. IMPRESSION: Moderate volume of stool within the large bowel. No small bowel obstruction. No acute pro cess in the chest. Electronically signed by: Zak Marin MD (12/23/2020 6:05 AM) [facility]
[2020-12-23] MEDS ORDERED: MORPHINE SULFATE 10 MG/ML SYRINGE. SQ PRN (06:15)
[2020-12-23 06:20] LABS: BACTERIA,URINE MANY /HPF (0-FEW); BILIRUBIN,URINE NEG (NEG); CLARITY,URINE HAZY; COLOR,URINE YELLOW; GLUCOSE,URINE 250 mg/dL (NEG); NITRITE,URINE NEG (NEG); SQUAMOUS EPITHELIAL CELL,UR MANY /LPF; UROBILINOGEN,URINE 0.2 mg/dL (0.2 mg/dL); WBC,URINE 20-40 /HPF (0-4)
[2020-12-23] MEDS ORDERED: IV RINGERS SOLUTION,LACTATED 1,000 ML IV ONE (06:30)
[2020-12-23 08:00] VITALS: BP 139/68
[2020-12-23] MEDS ORDERED: IPRATRPIUM/ALBUTEROL 0.5/2.5MG 3 ML NEBU. NEB SCH (08:00)
[2020-12-23] MEDS ORDERED: PROCHLORPERAZINE 10 MG/2 ML VIAL. IV PRN (08:30)
[2020-12-23] MEDS: MORPHINE SULFATE 4 MG/ML DISP.SYRIN. IV PRN ×3 (08:56→20:43)
[2020-12-23] MEDS: FAMOTIDINE 20 MG TABLET PO SCH ×2 (09:00→20:43)
[2020-12-23 11:00] VITALS: BP 126/74
[2020-12-23] MEDS ORDERED: DEXTROSE 50% 25 GM / 50ML DISP.SYRIN. IV PRN (11:00)
--- NOTE | 2020-12-23 11:11 | HP ---
ADMIT DATE: 12/23/2020 ATTENDING PHYSICIAN: Dr. Oreilly. CHIEF COMPLAINT: Intractable nausea and vomiting. HISTORY OF PRESENT ILLNESS: The patient is a 30-year-old female with known type 1 diabetic. She has had a history of noncompliance ____. She is under a lot of stress in her life, recent breakup with her boyfriend. She has substance abuse. She is admitted then with intractable nausea and vomiting starting yesterday. Sugars were adequate. She is not in DKA. She has quite a bit of symptoms related to her underlying psychiatric issues. PAST MEDICAL HISTORY: Significant for type 1 diabetes mellitus, DKA, frequent UTIs, hyponatremia, tobacco dependence, hypocalcemia, dehydration, renal failure from dehydration and substance abuse. CURRENT MEDICINES: Reviewed. She was taking cephalexin, fluconazole, insulin NovoLog and Levemir, Reglan, omeprazole, and ondansetron. ALLERGIES: SHE HAS ADVERSE REACTION TO TYLENOL AND ADHESIVE TAPE. SOCIAL HISTORY: She is a smoker. There is a substance issue. She denies any drinking alcohol. FAMILY HISTORY: Mom is alive. She recently moved in with her. She does not know her biologic father, recent breakup with a boyfriend. She is fully employed. REVIEW OF SYSTEMS: All other systems reviewed and turned to be negative. No recent COVID exposure. PHYSICAL EXAMINATION: GENERAL: When I saw her, this is a pleasant, thin female. INITIAL VITAL SIGNS: Showed blood pressure 145/94, pulse is 86 and regular, temperature 98.6 degrees Fahrenheit, and her oxygen saturation 97% on room air. HEENT: Head is without trauma. Pupils are reactive. Sclerae are nonicteric. Oropharynx is clear. NECK: Supple, no bruits. LUNGS: Otherwise clear. CARDIOVASCULAR: Showed regular heart tones. ABDOMEN: Soft, normal bowel sounds. No guarding or rebound tenderness. EXTREMITIES: Without edema. NEUROLOGIC: Focally intact. SKIN: Warm and dry. PERTINENT X-RAY STUDIES: Acute abdominal series on admission showed some stool in the bowel, no evidence of obstruction. No other abnormalities identified. PERTINENT LABORATORY STUDIES: The admission hemoglobin was 13.1 g/dL with a white count of 7100. Electrolytes within normal range. Nonfasting blood sugar 260. Cardiac enzymes negative. Transaminases were normal. Amylase and lipase were normal. ASSESSMENT: 1. A 30-year-old female with intractable nausea with vomiting. 2. Irritable bowel syndrome component related to anxiety. 3. Underlying depression with anxiety. 4. Type 1 diabetes mellitus with poor control. 5. Diabetic gastroparesis. 6. Gastroesophageal reflux disease. PLAN: 1. Admit to the inpatient unit. 2. IV hydration. 3. P.r.n. nausea controlled. 4. P.r.n. anxiety meds. 5. I strongly recommended a book to read called codependent no more which will explain a lot of her features, some psychotherapy done at the bedside. DANIAL OREILLY MD DR: JEFF/regina JOB#: [id number] / [id number]
[2020-12-23] MEDS: INSULIN LISPRO 300 UNITS/3 ML VIAL. SQ SCH ×2 (12:29→17:00)
[2020-12-23 15:14] VITALS: BP 104/51
[2020-12-23 18:22] VITALS: BP 97/64
[2020-12-23] MEDS ORDERED: INSULIN GLARGINE SYRINGE. SQ SCH (21:00)
[2020-12-23 22:46] VITALS: BP 103/66
[2020-12-24 05:53] LABS: BASO # 0.1 x10^3/uL (0.0-0.2); BASO % 1 % (0-3); EOS # 0.1 x10^3/uL (0.0-0.7); EOS % 2 % (0-3); HEMATOCRIT 35.3 % (36.0-47.0); HEMOGLOBIN 11.6 g/dL (12.0-15.5); LYMPH # 2.8 x10^3/uL (1.0-4.8); LYMPH % 45 % (24-48); MEAN CORPUSCULAR HEMOGLOBIN 29 pg (25-35); MEAN CORPUSCULAR HGB CONC 33 g/dL (31-37); MEAN CORPUSCULAR VOLUME 89 fL (79-100); MONO # 0.5 x10^3/uL (0.0-1.1); MONO % 7 % (0-9); NEUT # 2.8 x10^3uL (1.8-7.7); NEUT % 45 % (31-73); PLATELET COUNT 253 x10^3/uL (140-400); RED BLOOD COUNT 3.97 x10^6/uL (3.50-5.40); RED CELL DISTRIBUTION WIDTH 14.7 % (11.5-14.5); WHITE BLOOD COUNT 6.3 x10^3/uL (4.0-11.0)
[2020-12-24 06:00] VITALS: BP 102/66
[2020-12-24 06:01] LABS: CALCIUM 8.1 mg/dL (8.5-10.1); CREATININE 0.9 mg/dL (0.6-1.0)
[2020-12-24] MEDS: MORPHINE SULFATE 4 MG/ML DISP.SYRIN. IV PRN (08:38)
[2020-12-24] MEDS: INSULIN LISPRO 300 UNITS/3 ML VIAL. SQ SCH (08:43)
[2020-12-24] MEDS ORDERED: INSULIN GLARGINE SYRINGE. SQ SCH (09:00)
--- NOTE | 2020-12-24 10:46 | DS ---
DATE OF DISCHARGE: 12/24/2020 ATTENDING PHYSICIAN: Dr. Oreilly. FINAL DISCHARGE DIAGNOSES: 1. Intractable nausea with vomiting, improved. 2. Irritable bowel syndrome. 3. Underlying depression with generalized anxiety disorder. 4. Type 1 diabetes mellitus with poor control. 5. Diabetic gastroparesis. 6. Gastroesophageal reflux disease. HISTORY AND PHYSICAL: This nice 30-year-old female is a type 1 diabetic, lots of psychosocial issues. She had been noncompliant. She has diabetic gastroparesis. She is admitted then with intractable nausea and vomiting. PHYSICAL EXAMINATION: Please see the dictated note. PERTINENT LABORATORY AND X-RAY STUDIES: In the ED, her acute abdominal series showed no evidence of obstruction. Moderate amount of stool in the large bowel, otherwise no obstruction. Her blood sugar was elevated on admission. Her hemoglobin and white count were within normal range. Electrolytes, anion gap were also within normal range. Her hemoglobin was 13.1 g/dL, white count 7100. Electrolytes within normal range. The anion gap was 5, CO2 of 30, creatinine 0.9 mg percent, potassium 4.0. Nonfasting blood sugar in the mid 300s, repeated ____ down to 180. Troponins were negative. COURSE IN THE HOSPITAL: The patient was admitted. She was given pain and nausea control, gentle IV hydration and restarting her Lantus and regular insulin. In addition, I recommended underlying depression and anxiety and I started her on Prozac and Xanax, which seems to help. By the second hospital day, her vital signs are quite stable. She was eating, nausea and vomiting had resolved. Blood pressure and vital signs were normal. She was ready for discharge. I gave her a script done for Xanax 0.5 mg 1 b.i.d., in addition Prozac 20 mg p.o. daily and continuation of her insulin, she needs to take her Lantus and regular insulin as scheduled. She will follow up with her PCP at the scheduled time. I also gave her the title of a book called codependent no more regarding code dependency features, she will follow up on that. She was discharged then from our hospital in stable condition with explicit instructions and followup care. Total discharge time spent 41 minutes. DANIAL OREILLY MD DR: JEFF/regina JOB#: [id number] / [id number]
== END 2020-12-24 10:50 | disposition home or self-care (01) | DRG 74 ==
LOC: ER 03:40 → ICU 06:00 → 1 SOUTH 14:47
PROVIDERS: ADMIT Internal Medicine; ATTEND Internal Medicine
DX: E10.43 Type 1 diabetes mellitus with diabetic autonomic (poly)neuropathy (principal); E10.42 Type 1 diabetes mellitus with diabetic polyneuropathy; E10.65 Type 1 diabetes mellitus with hyperglycemia; F17.200 Nicotine dependence, unspecified, uncomplicated; F41.1 Generalized anxiety disorder; F41.8 Other specified anxiety disorders; K21.9 Gastro-esophageal reflux disease without esophagitis; K31.84 Gastroparesis; K58.9 Irritable bowel syndrome, unspecified; Z79.4 Long term (current) use of insulin; Z79.899 Other long term (current) drug therapy; Z83.3 Family history of diabetes mellitus; Z87.440 Personal history of urinary (tract) infections; Z91.19 Patient's noncompliance with other medical treatment and regimen; Z88.8 Allergy status to other drugs, medicaments and biological substances
CPT/HCPCS: 36415; 74022; 80048; 80076; 81001; 82150; 82550; 82947; 83690; 84484; 84702; 85025; 85610; 85730; 87086; 93005; 96361; 96372; 96374; 96375; J0780; J1815; J2270; J2405; J3490; J7120; 99285-25; J7030

== ENCOUNTER 2020-12-25 16:32 | Observation (INO) | payer SELFPAY ==
[~2020-12-25] VITALS: Ht 170.2 cm; Wt 56.2 kg
--- NOTE | 2020-12-25 16:53 | PHYS DOC ---
Past History Past Medical History: Anxiety, Diabetes, GERD, UTI, Other Additional Past Medical Histor: pt reports several admissions for "high blood sugar" gastroporesis (VANESSA LE RETORT PRE COOKER) Past Surgical History: No Surgical History (VANESSA LE APRN) Smoking: Less than 1pk/day Alcohol Use: None Drug Use: None Social History Narrative: has used THC, meth in past (VANESSA LE APRN) Adult General Chief Complaint Chief Complaint: NAUSEA/VOMITING/DIARRHEA HPI HPI Patient is a 30-year-old female presents emergency department complaint of nausea vomiting all day since waking up this morning. Patient states that she was admitted in the hospital here at [facility] and was discharged yesterday. Patient states she felt fine yesterday but when she woke up she started feeling sick to her stomach and vomited greater than 20 times today. Patient denies seeing blood in her vomitus, patient states she sees spit and yellow substance only. Patient reports a 10/10 pain on a 1-10 pain scale all over to include all of her muscles all of her joints her stomach her head her back all parts of her body. Patient states that she needs something for pain right now. Patient denies any urinary tract infection type signs and symptoms, denies STI concerns, denies vaginal discharge. Patient states that she has not taken her insulin like she is required to as she is a type I diabetic. Patient states she has not taken anything for pain. Patient denies any drug use, denies smoking cigarettes , denies drinking alcohol. Patient denies any recent trauma, denies domestic abuse, denies homicidal or suicidal ideation. Patient has been seen several times here in this ER, patient is a known cigarette smoker and abuses methamphetamines. (VANESSA LE RETORT PRE COOKER) Review of Systems Review of Systems Constitutional: Denies fever or chills [] Eyes: Denies change in visual acuity, redness, or eye pain [] HENT: Denies nasal congestion or sore throat [] Respiratory: Denies cough or shortness of breath [] Cardiovascular: No additional information not addressed in HPI [] GI: Denies abdominal pain, nausea, vomiting, bloody stools or diarrhea [] : Denies dysuria or hematuria [] Musculoskeletal: Denies back pain or joint pain [] Integument: Denies rash or skin lesions [] Neurologic: Denies headache, focal weakness or sensory changes [] Endocrine: Denies polyuria or polydipsia [] All other systems were reviewed and found to be within normal limits, except as documented in this note. (VANESSA LE APRN) Allergies Allergies Allergies Coded Allergies Type Severity Reaction Last Updated Verified acetaminophen Allergy Intermediate HIVES 11/30/20 Yes adhesive tape Allergy Intermediate 11/30/20 Yes (VANESSA LE APRN) Physical Exam Physical Exam Constitutional: Patient is in acute distress, nontoxic in appearance. Patient is complaint of pain exceeds patient's physical appearance. HENT: Normocephalic, atraumatic, bilateral external ears normal, oropharynx moist, no oral exudates, nose normal. Eyes: PERRLA, EOMI, conjunctiva normal, no discharge. Neck: Normal range of motion, no tenderness, supple, no stridor. Cardiovascular:Heart rate regular rhythm, no murmur Lungs & Thorax: Bilateral breath sounds clear to auscultation Abdomen: Bowel sounds normal, no masses, no pulsatile masses. Pain elicited to palpation all 4 quadrants. Skin: Warm, dry, no erythema, no rash. Back: No tenderness, no CVA tenderness. Extremities: No tenderness, no cyanosis, no clubbing, ROM intact, no edema. Neurologic: Alert and oriented X 3, normal motor function, normal sensory function, no focal deficits noted. Psychologic: Affect normal, judgement normal, mood normal. (VANESSA LE APRN) Current Patient Data Vital Signs Vital Signs Date Time Temp Pulse Resp B/P (MAP) Pulse Ox O2 Delivery O2 Flow Rate FiO2 12/25/20 16:40 97.9 88 18 136/85 (102) 99 Lab Results Laboratory Tests Test 12/25/20 18:03 12/25/20 18:44 12/25/20 19:02 White Blood Count 6.8 x10^3/uL Red Blood Count 5.26 x10^6/uL Hemoglobin 15.3 g/dL Hematocrit 48.0 % Mean Corpuscular Volume 91 fL Mean Corpuscular Hemoglobin 29 pg Mean Corpuscular Hemoglobin Concent 32 g/dL Red Cell Distribution Width 14.6 % Platelet Count 212 x10^3/uL Neutrophils (%) (Auto) 73 % Lymphocytes (%) (Auto) 21 % Monocytes (%) (Auto) 5 % Eosinophils (%) (Auto) 1 % Basophils (%) (Auto) 1 % Neutrophils # (Auto) 4.9 x10^3uL Lymphocytes # (Auto) 1.5 x10^3/uL Monocytes # (Auto) 0.3 x10^3/uL Eosinophils # (Auto) 0.0 x10^3/uL Basophils # (Auto) 0.0 x10^3/uL Sodium Level 128 mmol/L Potassium Level 4.8 mmol/L Chloride Level 97 mmol/L Carbon Dioxide Level 21 mmol/L Anion Gap 10 Blood Urea Nitrogen 21 mg/dL Creatinine 0.6 mg/dL Estimated GFR (Cockcroft-Gault) 118.2 BUN/Creatinine Ratio 35 Glucose Level 140 mg/dL Calcium Level 8.8 mg/dL Total Bilirubin 0.7 mg/dL Aspartate Amino Transf (AST/SGOT) 16 U/L Alanine Aminotransferase (ALT/SGPT) < 6 U/L Alkaline Phosphatase 67 U/L Total Protein 8.1 g/dL Albumin g/dL Albumin/Globulin Ratio Acetone Level Neg Urine Collection Type Unknown Urine Color Yellow Urine Clarity Cloudy Urine pH 7.0 Urine Specific [place] 1.020 Urine Protein 100 mg/dl Urine Glucose (UA) >=1000 mg/dL Urine Ketones (Stick) 80 mg/dL Urine Blood Small Urine Nitrite Neg Urine Bilirubin Neg Urine Urobilinogen Dipstick 2.0 mg/dL Urine Leukocyte Esterase Small Urine RBC 3-5 /HPF Urine WBC 20-40 /HPF Urine Squamous Epithelial Cells Few /LPF Urine Bacteria Many /HPF Urine Opiates Screen Pos Urine Methadone Screen Neg Urine Barbiturates Neg Urine Phencyclidine Screen Neg Urine Amphetamine/Methamphetamine Pos Urine Benzodiazepines Screen Neg Urine Cocaine Screen Neg Urine Cannabinoids Screen Neg Urine Ethyl Alcohol Neg Bedside Urine HCG, Qualitative hcg negative Current Medications Medications (Trade) Dose Ordered Sig/Chevy Route PRN Reason Start Time Stop Time Status Last Admin Dose Admin Sodium Chloride 1,000 ml @ 1,000 mls/hr 1X ONCE IV 12/25/20 17:00 12/25/20 17:59 DC 12/25/20 17:28 Metoclopramide HCl (Reglan Vial) 10 mg 1X ONCE IVP 12/25/20 17:45 12/25/20 17:46 DC 12/25/20 17:37 Midazolam HCl (Versed) 2 mg 1X ONCE IV 12/25/20 18:45 12/25/20 18:46 DC 12/25/20 18:43 Ondansetron HCl (Zofran) 4 mg PRN Q6HRS PRN IVP NAUSEA/VOMITING 12/25/20 20:00 12/26/20 19:59 Sodium Chloride 1,000 ml @ 100 mls/hr Q10H IV 12/25/20 20:00 12/26/20 19:59 UNV (VANESSA LE APRN) EKG EKG [] (VANESSA LE APRN) Radiology/Procedures Radiology/Procedures [] (VANESSA LE APRN) Heart Score Risk Factors: Risk Factors: DM, Current or recent (<one month) smoker, HTN, HLP, family history of CAD, obesity. Risk Scores: Risk Factors: DM, Current or recent (<one month) smoker, HTN, HLP, family history of CAD, obesity. (VANESSA LE APRN) Course & Med Decision Making Course & Med Decision Making Pertinent Labs and Imaging studies reviewed. (See chart for details) 30-year-old female, vital signs reviewed, presents emergency department complaint of nausea vomiting all day. Patient was nontoxic in appearance, however very restless in bed begging for narcotic pain medications. Patient was dry heaving into a vomit bag. No vomit elicited during patient triage or physical examination. Patient labs ordered, urine assay, urine drug screen, liter of normal saline, IV Reglan. Patient continues to complain of 10/10 pain on a 1-10 10 pain scale, patient's nausea has resolved. Patient is no longer retching into a vomit bag. Patient given 2 mg Versed for anxiolytic purposes. Patient sodium hyponatremic at 128. Patient's hematocrit elevated at 48%. Patient's urine drug screen positive for opiates and methamphetamines. Patient denies taking opiate medication or methamphetamines. Patient states she does not know how this was in her urine. Patient serum ketone negative. Discussed patient case with [facility] physician Dr. Gonzalez who agreed to accept patient for admission under observation status to the [facility] unit for diagnosis of hyponatremia, nausea, vomiting, substance abuse. Dr. Gonzalez has assumed patient care at this time. [facility] Discussed admission to hospital with patient who is amenable to this plan. (VANESSA LE APRN) Course & Med Decision Making Discussed patient with RADIOLOGY RECEPTIONIST and agree with work-up and disposition (TANIKA CAMARENA MD) Dragon Disclaimer Dragon Disclaimer This electronic medical record was generated, in whole or in part, using a voice recognition dictation system. (VANESSA LE APRN) Departure Departure: Impression: Primary Impression: Hyponatremia Additional Impressions: Substance abuse Nausea & vomiting Disposition: 09 ADMITTED INPT THIS HOSP Admitting Physician: Timothy Gonzalez (Observation status to MedSurg unit) (VANESSA LE APRN) Condition: GUARDED Referrals: PCP,NO (PCP) Problem Qualifiers Additional Impressions: Nausea & vomiting Vomiting type: unspecified Vomiting Intractability: non-intractable Qualified Codes: R11.2 - Nausea with vomiting, unspecified VANESSA LE APRN Dec 25, 2020 16:53 TANIKA CAMARENA MD Dec 26, 2020 01:53
[2020-12-25] MEDS ORDERED: IV NORMAL SALINE 1,000ML 1,000 ML IV ONE (17:00)
[2020-12-25] MEDS ORDERED: METOCLOPRAMIDE HCL 10 MG/2 ML VIAL. IVP ONE (17:45)
[2020-12-25 18:24] LABS: BASO % 1 % (0-3); EOS % 1 % (0-3); HEMOGLOBIN 15.3 g/dL (12.0-15.5); LYMPH # 1.5 x10^3/uL (1.0-4.8); LYMPH % 21 % (24-48); MEAN CORPUSCULAR HEMOGLOBIN 29 pg (25-35); MEAN CORPUSCULAR HGB CONC 32 g/dL (31-37); MEAN CORPUSCULAR VOLUME 91 fL (79-100); MONO # 0.3 x10^3/uL (0.0-1.1); MONO % 5 % (0-9); NEUT # 4.9 x10^3uL (1.8-7.7); NEUT % 73 % (31-73); PLATELET COUNT 212 x10^3/uL (140-400); RED BLOOD COUNT 5.26 x10^6/uL (3.50-5.40); RED CELL DISTRIBUTION WIDTH 14.6 % (11.5-14.5); WHITE BLOOD COUNT 6.8 x10^3/uL (4.0-11.0)
[2020-12-25 18:31] LABS: ANION GAP 10 (6-14); BLOOD UREA NITROGEN 21 mg/dL (7-20); BUN/CREATININE RATIO 35 (6-20); CALCIUM 8.8 mg/dL (8.5-10.1); CARBON DIOXIDE 21 mmol/L (21-32); CHLORIDE 97 mmol/L (98-107); CREATININE 0.6 mg/dL (0.6-1.0); GFR 118.2; GLUCOSE 140 mg/dL (70-99); POTASSIUM 4.8 mmol/L (3.5-5.1); SODIUM 128 mmol/L (136-145)
[2020-12-25 18:36] LABS: ALK PHOS 67 U/L (46-116); AST (SGOT) 16 U/L (15-37); TOTAL BILIRUBIN 0.7 mg/dL (0.2-1.0)
[2020-12-25 18:38] LABS: ALT (SGPT) < 6 U/L (14-59)
[2020-12-25 18:41] LABS: TOTAL PROTEIN 8.1 g/dL (6.4-8.2)
[2020-12-25] MEDS ORDERED: MIDAZOLAM HCL PF 5 MG/5 ML VIAL. IV ONE (18:45)
[2020-12-25 19:16] LABS: BARBITURATES NEG (NEG); BENZODIAZEPINES NEG (NEG); CANNABINOIDS NEG (NEG); COCAINE NEG (NEG); METHADONE NEG (NEG); OPIATES POS (NEG); PHENCYCLIDINE NEG (NEG)
[2020-12-25 19:24] LABS: AMPHETAMINE/METHAMPHETAMINE POS (NEG)
[2020-12-25 19:27] LABS: BILIRUBIN,URINE NEG (NEG); CLARITY,URINE CLOUDY; COLOR,URINE YELLOW; GLUCOSE,URINE >=1000 mg/dL (NEG)
[2020-12-25 19:28] LABS: BACTERIA,URINE MANY /HPF (0-FEW); NITRITE,URINE NEG (NEG); SQUAMOUS EPITHELIAL CELL,UR FEW /LPF; WBC,URINE 20-40 /HPF (0-4)
[2020-12-25] MEDS ORDERED: ONDANSETRON PF 4 MG/2 ML VIAL. IVP PRN (20:00)
[2020-12-25] MEDS ORDERED: HYDROmorphone PF 1 MG/ML DISP.SYRIN ONE (20:26)
[2020-12-25] MEDS ORDERED: HYDROmorphone PF 1 MG/ML DISP.SYRIN IVP ONE (20:45)
--- NOTE | 2020-12-25 21:00 | RAD ---
Exam: CT abdomen and pelvis without contrast INDICATION: Abdominal pain TECHNIQUE: Sequential axial images through the abdomen and pelvis obtained without IV contrast. Sagit mary and coronal reformatted images were reconstructed from the axial data and reviewed. Comparisons: 02/21/2019 FINDINGS: Heart size is normal. No pericardial effusion. Visualized lung bases are clear. No pleural effusion. Evaluation of solid organs is limited secondary to noncontrast technique. Liver, spleen, pancreas, gallbladder and adrenals are unremarkable. No perinephric inflammation or hydronephrosis. Nonobstructing renal calculus at the left kidney. No u reteral calculi are identified. Bladder is partially distended and not well evaluated. Uterus is not enlarged. Multiloculated cystic lesion at the left adnexa measuring 5.5 x 3.5 cm. Small amount of free fluid noted at the pelvis. Courtney ris is noted within the vagina. Large and small bowel are unremarkable. No obstruction. No free intra-abdominal air. Abdominal aorta has a normal course and caliber. No enlarged abdominal lymph nodes are identified. No suspicious osseous lesions or acute fractures. IMPRESSION: 1. Multiloculated cystic lesion at the left adnexa measuring 5.5 x 3.5 cm. Further evaluation with u ltrasound is recommended. 2. There is a small amount of free fluid in the pelvis may be reactive or physiologic. 3. Small amount of debris is noted within the vagina. Recommend correlation with physical exam. Exposure: One or more of the following in the visualized dose reduction techniques were utilized for this examination: 1. Automated exposure control 2. Adjustment of the MA and/or KV according to patient size 3. Use of iterative of reconstructive technique Electronically signed by: Ben Cabral MD (12/25/2020 8:57 PM) [facility]
[2020-12-25 22:24] VITALS: BP 139/101
[2020-12-25] MEDS ORDERED: ALPRAZolam 0.5 MG TABLET PO ONE (22:30)
[2020-12-25] MEDS ORDERED: FLUoxetine HCL 20 MG CAPSULE PO ONE (22:30)
[2020-12-25] MEDS: IV NORMAL SALINE 1,000ML 1,000 ML IV SCH (22:44)
[2020-12-25] MEDS: HYDROmorphone PF 1 MG/ML DISP.SYRIN IVP PRN (23:12)
[2020-12-25 23:55] VITALS: BP 125/80
[2020-12-26] MEDS: HYDROmorphone PF 1 MG/ML DISP.SYRIN IVP PRN ×5 (05:23→22:05)
[2020-12-26 05:33] VITALS: BP 133/79
[2020-12-26] MEDS: FLUoxetine HCL 20 MG CAPSULE PO SCH (07:22)
[2020-12-26] MEDS: IV NORMAL SALINE 1,000ML 1,000 ML IV SCH ×2 (07:24→16:00)
[2020-12-26 08:00] LABS: CALCIUM 7.5 mg/dL (8.5-10.1); CREATININE 0.6 mg/dL (0.6-1.0); GFR 118.2
--- NOTE | 2020-12-26 10:17 | HP ---
ADMIT DATE: 12/26/2020 ATTENDING PHYSICIAN: Dr. Oreilly. CHIEF COMPLAINT: Intractable nausea and vomiting. HISTORY OF PRESENT ILLNESS: The patient is a 30-year-old female, type 1 diabetic with significant underlying psychiatric issues, chronic vomiting and substance abuse. I just discharged from the hospital 24 hours before. She never got her medications filled and stated she was using recreational drugs. Urine tested positive for narcotics and methamphetamine. She has intractable nausea. She has underlying gastroparesis. She is noncompliant with her diabetic regimen. She had a sodium of 126 mEq. She was admitted then with dehydration, intractable nausea, vomiting and noncompliance of her diabetic regimen. PAST MEDICAL HISTORY: Type 1 diabetes, abscess of the axilla, local infection due to Port-A-Cath, periodontitis, hypotension, diabetic ketoacidosis, substance abuse, amphetamine use, depression, anxiety, posttraumatic stress disorder, gastroesophageal reflux disease, substance abuse, tobacco dependence and dehydration. CURRENT MEDICATIONS: She was noncompliant. She is supposed to be taking her regular insulin, Lantus. I also wrote for Prozac, Xanax, which she never got filled. SOCIAL HISTORY: She is a smoker. Drug use as noted. FAMILY HISTORY: Unchanged. REVIEW OF SYSTEMS: Significant for the substance abuse to lots of social situations and psychosomatic issues. All other systems reviewed and turned to be negative. PHYSICAL EXAMINATION: GENERAL: When I saw her, this is a young female with a flat affect. INITIAL VITAL SIGNS: Showed a blood pressure 125/80, pulse 89 and regular. She was afebrile, oxygen saturation 97% on room air. HEENT: Head is without trauma. Pupils are reactive. Sclerae nonicteric. Oropharynx clear. NECK: Supple, no bruits. LUNGS: Clear. CARDIOVASCULAR: Showed regular heart tones. ABDOMEN: Soft. Minimal guarding, no rebound tenderness. Hypoactive bowel sounds. EXTREMITIES: Showed no cyanosis or edema. NEUROLOGIC: Focally intact. Speech is fluent. SKIN: Warm and dry. PERTINENT LABORATORY STUDIES: Hemoglobin 15.3 g/dL, white count 6800. Serum sodium 128 mEq per liter. Nonfasting blood sugar 152. ASSESSMENT: 1. A 30-year-old female with intractable nausea and vomiting. 2. Diabetic gastroparesis. 3. Type 1 diabetes with noncompliance. 4. Underlying depression with anxiety. 5. Polysubstance abuse. 6. Chronic obstructive pulmonary disease. 7. Personality disorder ____ with symptoms of posttraumatic stress disorder. PLAN: 1. Admit to the inpatient unit. 2. IV hydration. 3. Nausea control. 4. Restart Prozac and Xanax. 5. Advance diet as tolerated. DANIAL OREILLY MD DR: JEFF/regina JOB#: [id number] / [id number]
[2020-12-26 10:42] VITALS: BP 115/74
[2020-12-26] MEDS ORDERED: DEXTROSE 50% 25 GM / 50ML DISP.SYRIN. IV PRN (12:00)
[2020-12-26] MEDS: ALPRAZolam 0.5 MG TABLET PO SCH ×2 (12:33→21:52)
[2020-12-26] MEDS: INSULIN LISPRO 300 UNITS/3 ML VIAL. SQ SCH ×2 (12:34→16:54)
[2020-12-26 15:44] VITALS: BP 125/85
[2020-12-26 19:19] VITALS: BP 123/79
[2020-12-26] MEDS ORDERED: INSULIN GLARGINE SYRINGE. SQ SCH (21:00)
[2020-12-27 00:47] VITALS: BP 125/78
[2020-12-27] MEDS: HYDROmorphone PF 1 MG/ML DISP.SYRIN IVP PRN (03:48)
[2020-12-27 05:13] VITALS: BP 101/66
[2020-12-27] MEDS: INSULIN LISPRO 300 UNITS/3 ML VIAL. SQ SCH (08:00)
[2020-12-27] MEDS: FLUoxetine HCL 20 MG CAPSULE PO SCH (08:47)
[2020-12-27] MEDS: ALPRAZolam 0.5 MG TABLET PO SCH (08:47)
--- NOTE | 2020-12-27 11:15 | DS ---
DATE OF DISCHARGE: 12/27/2020 ATTENDING PHYSICIAN: Dr. Oreilly. FINAL DISCHARGE DIAGNOSES: 1. Intractable nausea and vomiting. 2. Noncompliance of meds. 3. Diabetic gastroparesis. 4. Type 1 diabetes mellitus with noncompliance. 5. Depression with anxiety. 6. Polysubstance abuse. 7. Chronic obstructive pulmonary disease. 8. Personality disorder with signs of posttraumatic stress disorder. HISTORY AND PHYSICAL: This 30-year-old female, type 1 diabetic, has substance abuse issues. She is noncompliant. She is admitted then with intractable nausea, vomiting, mild dehydration. Sodium 126 mEq per liter. PHYSICAL EXAMINATION: Please see the dictated note. PERTINENT LABORATORY AND X-RAY STUDIES: Admission hemoglobin 15.3 g, white count 6800. Electrolytes showed sodium 126, repeated the next day was up to 134 mEq per liter. Nonfasting blood sugars were in the mid 100s and controlled. She had no anion gap. Electrolytes within normal range. COURSE IN THE HOSPITAL: The patient was admitted. She was given pain and nausea control, gentle IV hydration. Subsequent chemistries showed an improvement and correction of her sodium. Diet was advanced and she was feeling better. At this time, she is going to go home. She promised that she will take her medications including her insulin, Prozac and Xanax. I wrote her a script for Zofran 4 mg q. 6 hours p.r.n. nausea and oxycodone 10 mg 1 every 6 hours p.r.n. pain. Work release for Monday. She will follow up with her regular PCP. Whether or not she will avoid further drugs and be compliant remains to be seen. She was discharged then from our hospital in stable condition with explicit instructions and followup care. DANIAL OREILLY MD DR: JEFF/regina JOB#: [id number] / [id number]
== END 2020-12-27 11:04 | disposition home or self-care (01) ==
LOC: ER 16:32 → 1 SOUTH 19:50
PROVIDERS: ADMIT Hospitalist; ATTEND Hospitalist
DX: R11.2 Nausea with vomiting, unspecified (principal); E10.9 Type 1 diabetes mellitus without complications; K31.84 Gastroparesis; F41.9 Anxiety disorder, unspecified; F32.9 Major depressive disorder, single episode, unspecified; J44.9 Chronic obstructive pulmonary disease, unspecified; E87.1 Hypo-osmolality and hyponatremia; E86.0 Dehydration; F17.210 Nicotine dependence, cigarettes, uncomplicated; F41.8 Other specified anxiety disorders; F43.10 Post-traumatic stress disorder, unspecified; N39.0 Urinary tract infection, site not specified; K21.9 Gastro-esophageal reflux disease without esophagitis; F60.9 Personality disorder, unspecified; Z79.4 Long term (current) use of insulin; Z91.14 Patient's other noncompliance with medication regimen; Z91.19 Patient's noncompliance with other medical treatment and regimen; Z79.899 Other long term (current) drug therapy
CPT/HCPCS: 36415; 74176; 80048; 80053; 80307; 81001; 81025; 82010; 82947; 85025; 87077; 87086; 87186; 96361; 96372; 96374; 96375; 96376; 99284; G0378; J1170; J1815; J2250; J2405; J2765; J7030; G0379

== ENCOUNTER 2020-12-28 15:34 | Emergency (ER) | payer SELFPAY ==
[~2020-12-28] VITALS: Ht 172.7 cm; Wt 60.0 kg
[2020-12-28] MEDS ORDERED: ONDANSETRON PF 4 MG/2 ML VIAL. IM ONE (17:30)
[2020-12-28] MEDS ORDERED: HYDROmorphone PF 1 MG/ML DISP.SYRIN IM ONE (17:30)
[2020-12-28] MEDS ORDERED: IV NORMAL SALINE 1,000ML 1,000 ML IV ONE ×2 (18:00→19:00)
--- NOTE | 2020-12-28 18:13 | PHYS DOC ---
Past History Past Medical History: Anxiety, Diabetes, GERD, UTI, Other Additional Past Medical Histor: pt reports several admissions for "high blood sugar" gastroporesis (KAREN GAMBLE MD) Past Medical History: Diabetes, Ovarian Cyst (YELENA HENRY MD) Past Surgical History: No Surgical History (KAREN GAMBLE MD) Smoking: Less than 1pk/day Alcohol Use: None Drug Use: None (KAREN GAMBLE MD) General Adult EDM: Chief Complaint: NAUSEA/VOMITING/DIARRHEA HPI: HPI: Patient is a 30-year-old female type I diabetic well-known to the emergency department is coming after being discharged yesterday for her gastroparesis symptoms. Patient was discharged with Zofran ODT's and oxycodone. Patient is also complaining of generalized abdominal pain. Says it is the same as her previous episodes. Patient states that she last took Zofran yesterday. Vomiti ng started last night but patient states that only been laying in bed and has not been able to take her medications. Has only taken her Xanax today. Denies any diarrhea or constipation. No fevers, cough, other complaints. (KAREN GAMBLE MD) Review of Systems: Review of Systems: All other systems within normal limits except for as noted in the HPI (KAREN GAMBLE MD) Current Medications: Current Meds: Current Medications Medications (Trade) Dose Ordered Sig/Chevy Start Time Stop Time Status Last Admin Dose Admin Hydromorphone HCl (Dilaudid) 1 mg 1X ONCE 12/28/20 17:30 12/28/20 17:31 DC 12/28/20 17:35 1 MG Ondansetron HCl (Zofran) 8 mg 1X ONCE 12/28/20 17:30 12/28/20 17:31 DC 12/28/20 17:32 8 MG Sodium Chloride 1,000 ml @ 1,000 mls/hr 1X ONCE 12/28/20 18:00 12/28/20 18:59 (KAREN GAMBEL MD) Allergies: Allergies: Allergies Coded Allergies Type Severity Reaction Last Updated Verified acetaminophen Allergy Intermediate HIVES 12/25/20 Yes adhesive tape Allergy Intermediate 12/25/20 Yes (KAREN GAMBLE MD) Physical Exam: PE: Constitutional: Well developed, well nourished, moderate acute distress, non- toxic appearance, actively vomiting. [] HENT: Normocephalic, atraumatic, bilateral external ears normal, nose normal. [] Eyes: PERRLA, conjunctiva normal, no discharge. [] Neck: No rigidity, supple, no stridor. [] Cardiovascular: Regular rate and rhythm, brisk cap refill [] Lungs & Thorax: Non labored symmetric respirations, no tachypnea or respiratory distress [] Abdomen: Soft, nondistended generalized tenderness. Skin: Warm, dry, no erythema, no rash. [] Back: Unremarkable Extremities: No deformities, range of motion grossly intact, no lower extremity edema [] Neurologic: Alert and oriented X 3, no focal deficits noted. [] Psychologic: Affect normal, judgement normal, mood normal. [] (KAREN GAMBLE MD) Current Patient Data: Vital Signs: Vital Signs Date Time Temp Pulse Resp B/P (MAP) Pulse Ox O2 Delivery O2 Flow Rate FiO2 12/28/20 17:46 98.1 119 16 109/64 (79) 97 Room Air (KAREN GAMBLE MD) EKG: EKG: [] (KAREN GAMBLE MD) EKG: My interpretation EKG shows a sinus tachycardia 124 bpm. Does have findings consistent with anterior strain pattern. No findings acute STEMI with contralateral changes. (YELENA HENRY MD) Radiology/Procedures: Radiology/Procedures: [] (KAREN GAMBLE MD) Radiology/Procedures: [place] [address] IMAGING REPORT Signed PATIENT: CHALO RAYMUNDO ACCOUNT: [id number] : 1990 LOCATION: ER AGE: 30 SEX: F EXAM STATUS: REG ER ORD. PHYSICIAN: YELENA HENRY MD REASON: pain, hematuria PROCEDURE: CT ABDOMEN PELVIS WO CONTRAST Exam: CT of abdomen and pelvis without contrast INDICATION: Pain, hematuria TECHNIQUE: Sequential axial images through the abdomen and pelvis obtained without IV contrast. Sagittal and coronal reformatted images were reconstructed from the axial data and reviewed. Comparisons: 12/25/2019 FINDINGS: Heart size is normal. No pericardial effusion. Visualized lung bases are clear. No pleural effusion. Evaluation of solid organs limited secondary to noncontrast technique. Liver, spleen, pancreas, gallbladder and adrenals are unremarkable. Nonobstructing calculus at the left renal calculus. No renal or ureteral calculi are identified. Bladder is distended and appears thin-walled. Uterus is not enlarged. Multiloculated cystic lesion at the left adnexa. There is adjacent fat stranding. Large and small bowel are unremarkable. Appendix is normal. No free intra- abdominal air or fluid. No obstruction. Abdominal aorta has a normal course and caliber. No enlarged abdominal lymph nodes are identified. No suspicious osseous lesions or acute fractures. IMPRESSION: 1. Multiloculated cystic lesion at the left adnexa measuring measuring approximately 5.7 x 3.9 cm with adjacent stranding and edema. This may represent cystic change in the left ovary. Recommend ultrasound better evaluate. 2. Nonobstructing left renal calculus. No evidence for obstructive uropathy. Exposure: One or more of the following in the visualized dose reduction techniques were utilized for this examination: 1. Automated exposure control 2. Adjustment of the MA and/or KV according to patient size 3. Use of iterative of reconstructive technique Electronically signed by: Ben Aceves MD (12/28/2020 8:40 PM) [facility] DICTATED AND SIGNED BY: BNE ACEVES MD DATE: 12/28/202033 CC: YELENA HENRY MD; PCP,NO ~MTH0 [address] [place] [id number] IMAGING REPORT (YELENA HENRY MD) Heart Score: Risk Factors: Risk Factors: DM, Current or recent (<one month) smoker, HTN, HLP, family history of CAD, obesity. Risk Scores: Score 0 - 3: 2.5% MACE over next 6 weeks - Discharge Home Score 4 - 6: 20.3% MACE over next 6 weeks - Admit for Clinical Observation Score 7 - 10: 72.7% MACE over next 6 weeks - Early Invasive Strategies (KAREN GAMBLE MD) HEART Score for Chest Pain: HEART Score for Chest Pain Response (Comments) Value History Moderately Suspicious 1 ECG Nonspecific Repolarizatio 1 Age < 45 0 Risk Factors 1 or 2 Risk Factors 1 Total 3 Course & Med Decision Making: Course & Med Decision Making Pertinent Labs and Imaging studies reviewed. (See chart for details) [] (KAREN GAMBLE MD) Course & Med Decision Making See Dr. Gamble note for details. Re- exam at shift change- Pt. localizes pain on Lt. , No obstructive stone.. Radiology advised to get US. Pt. Transfer to [facility]- Dr. Randall accepting. 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 Cyclic Vomiting 2. Dehydration 3. Abdomen Pain 4. Lt. Ovarian Cyst 5.7 cm x 3.8 cm 5. Hematuria 6. Dehydration 7. DM 368 8. Hyperglycemia 5.5 9. DKA 10 Lactic Acid 2.3 to 2.9 11.Abdomen Pain (YELENA HENRY MD) Dragon Disclaimer: Dragevelio Disclaimer: This electronic medical record was generated, in whole or in part, using a voice recognition dictation system. (KAREN GAMBLE MD) Departure Departure: Referrals: PCP,NO (PCP) KAREN GAMBLE MD Dec 28, 2020 18:13 YELENA HENRY MD Dec 28, 2020 21:05
[2020-12-28 18:14] LABS: BARBITURATES NEG (NEG); BENZODIAZEPINES NEG (NEG); CANNABINOIDS NEG (NEG); COCAINE NEG (NEG); METHADONE NEG (NEG); OPIATES POS (NEG); PHENCYCLIDINE NEG (NEG)
[2020-12-28 18:18] LABS: AMPHETAMINE/METHAMPHETAMINE NEG (NEG)
[2020-12-28 18:28] LABS: BASO # 0.1 x10^3/uL (0.0-0.2); BASO % 1 % (0-3); EOS % 0 % (0-3); HEMATOCRIT 40.8 % (36.0-47.0); HEMOGLOBIN 13.2 g/dL (12.0-15.5); LYMPH # 0.9 x10^3/uL (1.0-4.8); LYMPH % 8 % (24-48); MEAN CORPUSCULAR HEMOGLOBIN 29 pg (25-35); MEAN CORPUSCULAR HGB CONC 33 g/dL (31-37); MEAN CORPUSCULAR VOLUME 89 fL (79-100); MONO # 0.3 x10^3/uL (0.0-1.1); MONO % 3 % (0-9); NEUT # 10.8 x10^3uL (1.8-7.7); NEUT % 89 % (31-73); PLATELET COUNT 279 x10^3/uL (140-400); RED CELL DISTRIBUTION WIDTH 14.6 % (11.5-14.5); WHITE BLOOD COUNT 12.1 x10^3/uL (4.0-11.0)
[2020-12-28 18:33] LABS: CALCIUM 8.9 mg/dL (8.5-10.1); GFR 65.6; POTASSIUM 5.5 mmol/L (3.5-5.1)
--- NOTE | 2020-12-28 18:35 | EKG ---
[facility] ED [facility] [address] [place] [id number] Test Date: 2020-12-28 Test Time: 18:02:01 Pat Name: CHALO RAYMUNDO Department: Room: Gender: F Cafe Lead: ANGELO : 1990 Requested By: KAREN GAMBLE Order Number: [id number] Reading MD: Vasquez Moyer Measurements Intervals [place] Rate: 124 P: 75 MD: 126 QRS: 87 QRSD: 78 T: 37 QT: 276 QTc: 400 Interpretive Statements SINUS TACHYCARDIA LEFT ATRIAL ABNORMALITY Electronically Signed On 12-29-2020 9:25:13 [employer] by Vasquez Moyer
[2020-12-28 18:40] LABS: ALBUMIN 3.8 g/dL (3.4-5.0); ALBUMIN/GLOBULIN RATIO 1.2 (1.0-1.7); MAGNESIUM 1.7 mg/dL (1.8-2.4); PHOSPHORUS 4.2 mg/dL (2.6-4.7); TOTAL PROTEIN 7.1 g/dL (6.4-8.2)
[2020-12-28 18:44] LABS: BILIRUBIN,URINE NEG (NEG); CLARITY,URINE CLOUDY; COLOR,URINE YELLOW; GLUCOSE,URINE 500 mg/dL (NEG); NITRITE,URINE NEG (NEG); UROBILINOGEN,URINE 0.2 mg/dL (0.2 mg/dL)
[2020-12-28 18:48] LABS: BACTERIA,URINE FEW /HPF (0-FEW); RBC,URINE TNTC /HPF (0-2)
[2020-12-28] MEDS ORDERED: IV RINGERS SOLUTION,LACTATED 1,000 ML IV ONE (19:00)
[2020-12-28] MEDS ORDERED: KETOROLAC 60 MG/2 ML VIAL. IM ONE (20:00)
[2020-12-28] MEDS ORDERED: MORPHINE SULFATE 10 MG/ML SYRINGE. SQ ONE (20:00)
[2020-12-28] MEDS ORDERED: INSULIN REGULAR 100 UNIT/ML 3ML VIAL. IV ONE (20:00)
--- NOTE | 2020-12-28 20:42 | RAD ---
Exam: CT of abdomen and pelvis without contrast INDICATION: Pain, hematuria TECHNIQUE: Sequential axial images through the abdomen and pelvis obtained without IV contrast. Sagit mary and coronal reformatted images were reconstructed from the axial data and reviewed. Comparisons: 12/25/2019 FINDINGS: Heart size is normal. No pericardial effusion. Visualized lung bases are clear. No pleural effusion. Evaluation of solid organs limited secondary to noncontrast technique. Liver, spleen, pancreas, gallbladder and adrenals are unremarkable. Nonobstructing calculus at the left renal calculus. No renal or ureteral calculi are identified. Bladder is distended and appears thin-walled. Uterus is not enlarged. Multiloculated cystic lesion at the left adnexa. There is adjacent fat stranding. Large and small bowel are unremarkable. Appendix is normal. No free intra-abdominal air or fluid. No obstruction. Abdominal aorta has a normal course and caliber. No enlarged abdominal lymph nodes are identified. No suspicious osseous lesions or acute fractures. IMPRESSION: 1. Multiloculated cystic lesion at the left adnexa measuring measuring approximately 5.7 x 3.9 cm wi th adjacent stranding and edema. This may represent cystic change in the left ovary. Recommend ultras ound better evaluate. 2. Nonobstructing left renal calculus. No evidence for obstructive uropathy. Exposure: One or more of the following in the visualized dose reduction techniques were utilized for this examination: 1. Automated exposure control 2. Adjustment of the MA and/or KV according to patient size 3. Use of iterative of reconstructive technique Electronically signed by: Ben Cabral MD (12/28/2020 8:40 PM) [facility]
[2020-12-28 21:39] VITALS: BP 112/65
== END 2020-12-29 00:43 | disposition short-term general hospital (02) ==
LOC: ER 15:34
DX: E86.0 Dehydration (principal); R11.15 Cyclical vomiting syndrome unrelated to migraine; N83.202 Unspecified ovarian cyst, left side; R31.9 Hematuria, unspecified; E10.65 Type 1 diabetes mellitus with hyperglycemia; R74.02 Elevation of levels of lactic acid dehydrogenase [LDH]; E10.10 Type 1 diabetes mellitus with ketoacidosis without coma; F17.200 Nicotine dependence, unspecified, uncomplicated; Z87.440 Personal history of urinary (tract) infections; Z88.6 Allergy status to analgesic agent; Z88.8 Allergy status to other drugs, medicaments and biological substances
CPT/HCPCS: 36415; 74176; 80053; 80307; 81001; 82947; 83605; 83690; 83735; 84100; 85025; 87077; 87086; 93005; 96361; 96372; 96374; 99285; J1170; J1815; J1885; J2270; J2405; J7030

== ENCOUNTER 2021-01-09 17:43 | Emergency (ER) | payer SELFPAY ==
[~2021-01-09] VITALS: Ht 172.7 cm; Wt 60.0 kg
[2021-01-09] MEDS ORDERED: ONDANSETRON PF 4 MG/2 ML VIAL. ONE (17:53)
[2021-01-09] MEDS ORDERED: IV NORMAL SALINE 1,000ML 1,000 ML IV ONE (18:00)
[2021-01-09] MEDS ORDERED: INSULIN REGULAR 100 UNIT/ML 3ML VIAL. IV ONE (18:00)
[2021-01-09] MEDS ORDERED: ONDANSETRON PF 4 MG/2 ML VIAL. IVP ONE (18:00)
[2021-01-09 18:51] LABS: BASO # 0.1 x10^3/uL (0.0-0.2); BASO % 1 % (0-3); EOS # 0.1 x10^3/uL (0.0-0.7); EOS % 2 % (0-3); LYMPH # 1.4 x10^3/uL (1.0-4.8); LYMPH % 29 % (24-48); MEAN CORPUSCULAR HEMOGLOBIN 29 pg (25-35); MEAN CORPUSCULAR HGB CONC 32 g/dL (31-37); MEAN CORPUSCULAR VOLUME 90 fL (79-100); MONO # 0.2 x10^3/uL (0.0-1.1); MONO % 4 % (0-9); NEUT # 3.2 x10^3uL (1.8-7.7); NEUT % 65 % (31-73); PLATELET COUNT 279 x10^3/uL (140-400); RED BLOOD COUNT 3.79 x10^6/uL (3.50-5.40); RED CELL DISTRIBUTION WIDTH 15.6 % (11.5-14.5)
[2021-01-09 19:02] LABS: CALCIUM 8.6 mg/dL (8.5-10.1); CREATININE 0.8 mg/dL (0.6-1.0); GFR 84.8
[2021-01-09 19:10] LABS: TOTAL BILIRUBIN 0.3 mg/dL (0.2-1.0); TOTAL PROTEIN 6.1 g/dL (6.4-8.2)
[2021-01-09 19:49] LABS: BARBITURATES NEG (NEG); BENZODIAZEPINES NEG (NEG); CANNABINOIDS NEG (NEG); COCAINE NEG (NEG); METHADONE NEG (NEG); OPIATES NEG (NEG); PHENCYCLIDINE NEG (NEG)
[2021-01-09 19:50] LABS: AMPHETAMINE/METHAMPHETAMINE NEG (NEG)
[2021-01-09 19:55] LABS: U PREG PATIENT NEGATIVE (NEG)
[2021-01-09 19:59] LABS: BILIRUBIN,URINE NEG (NEG); CLARITY,URINE CLEAR; COLOR,URINE COLORLESS; GLUCOSE,URINE >=1000 mg/dL (NEG)
[2021-01-09 20:00] LABS: BACTERIA,URINE 0 /HPF (0-FEW); NITRITE,URINE NEG (NEG); RBC,URINE 20-40 /HPF (0-2); UROBILINOGEN,URINE 0.2 mg/dL (0.2 mg/dL); WBC,URINE OCC /HPF (0-4)
[2021-01-09] MEDS ORDERED: HYDROmorphone PF 1 MG/ML DISP.SYRIN IVP ONE (20:15)
[2021-01-09] MEDS ORDERED: ONDA4TAB12 PO (21:20)
--- NOTE | 2021-01-09 21:20 | PHYS DOC ---
Past History Past Medical History: Diabetes, Ovarian Cyst Additional Past Medical Histor: gastroporesis, drug abuse (VANESSA LE APRN) Past Surgical History: Other Additional Past Surgical Histo: ovarian cysts removed (VANESSA LE APRN) Smoking: Less than 1pk/day Alcohol Use: None Drug Use: None (VANESSA LE APRN) Adult General Chief Complaint Chief Complaint: NAUSEA/VOMITING/DIARRHEA HPI HPI Patient is a 30-year-old female who presents emergency department complaining of a 7-week history of constant nausea and vomiting. Patient states she has been hospitalized several times for DKA, abnormal lab values, pain control, along with nausea and vomiting. Patient currently complains of 10/10 on a 1-10 pain scale, states she has been vomiting all day long, states she vomits up food particles. Patient reports abdominal pain all over. Patient denies any diarrhea or constipation. Patient denies chest pain, chest palpitations. Patient states her main concern for coming to the ER today is for pain control and nausea control. Patient denies any other physical complaints or physical concerns. (VANESSA LE APRN) Review of Systems Review of Systems 14 body systems of review of systems have been reviewed. See HPI for pertinent positives and negative responses, otherwise all other systems are negative, nonpertinent or noncontributory. (VANESSA LE APRN) Current Medications Current Medications Current Medications Medications (Trade) Dose Ordered Sig/Chevy Start Time Stop Time Status Last Admin Dose Admin Hydromorphone HCl (Dilaudid) 1 mg 1X ONCE 01/09/21 20:15 01/09/21 20:16 DC 01/09/21 20:10 1 MG Insulin Human Regular (HumuLIN R VIAL) 10 unit 1X ONCE 01/09/21 18:00 01/09/21 18:04 DC 01/09/21 17:59 10 UNIT Ondansetron HCl (Zofran) 4 mg 1X ONCE 01/09/21 18:00 01/09/21 18:04 DC 01/09/21 17:57 4 MG Sodium Chloride 1,000 ml @ 1,000 mls/hr 1X ONCE 01/09/21 18:00 01/09/21 18:59 DC 01/09/21 17:57 1,000 MLS/HR (VANESSA LE APRN) Allergies Allergies Allergies Coded Allergies Type Severity Reaction Last Updated Verified acetaminophen Allergy Intermediate HIVES 12/25/20 Yes adhesive tape Allergy Intermediate 12/25/20 Yes (VANESSA LE APRN) Physical Exam Physical Exam Constitutional: Well developed, well nourished, no acute distress, non-toxic appearance. 30-year-old female in no apparent distress, patient is complaint of pain exceeds patient's physical appearance. HENT: Normocephalic, atraumatic, bilateral external ears normal, oropharynx moist, no oral exudates, nose normal. Eyes: PERRLA, EOMI, conjunctiva normal, no discharge. Neck: Normal range of motion, no tenderness, supple, no stridor. Cardiovascular:Heart rate regular rhythm, no murmur Lungs & Thorax: Bilateral breath sounds clear to auscultation Abdomen: Bowel sounds normal, soft, generalized tenderness all 4 quadrants, no masses, no pulsatile masses. No McBurney's point tenderness no psoas sign, no Boudreaux sign no straight leg sign, no rebound tenderness appreciated. No ecchymotic areas of the abdomen. Skin: Warm, dry, no erythema, no rash. Back: No tenderness, no CVA tenderness. Extremities: No tenderness, no cyanosis, no clubbing, ROM intact, no edema. Neurologic: Alert and oriented X 3, normal motor function, normal sensory function, no focal deficits noted. Psychologic: Affect normal, judgement normal, mood normal. (VANESSA LE APRN) Current Patient Data Vital Signs Vital Signs Date Time Temp Pulse Resp B/P (MAP) Pulse Ox O2 Delivery O2 Flow Rate FiO2 01/09/21 20:40 16 99 Room Air 01/09/21 18:03 97.0 88 161/93 (115) Lab Results Laboratory Tests Test 01/09/21 17:46 01/09/21 18:30 01/09/21 19:15 01/09/21 19:40 Glucose (Fingerstick) 460 mg/dL (70-99) H White Blood Count 5.0 x10^3/uL (4.0-11.0) Red Blood Count 3.79 x10^6/uL (3.50-5.40) Hemoglobin 11.0 g/dL (12.0-15.5) L Hematocrit 34.0 % (36.0-47.0) L Mean Corpuscular Volume 90 fL (79-100) Mean Corpuscular Hemoglobin 29 pg (25-35) Mean Corpuscular Hemoglobin Concent 32 g/dL (31-37) Red Cell Distribution Width 15.6 % (11.5-14.5) H Platelet Count 279 x10^3/uL (140-400) Neutrophils (%) (Auto) 65 % (31-73) Lymphocytes (%) (Auto) 29 % (24-48) Monocytes (%) (Auto) 4 % (0-9) Eosinophils (%) (Auto) 2 % (0-3) Basophils (%) (Auto) 1 % (0-3) Neutrophils # (Auto) 3.2 x10^3uL (1.8-7.7) Lymphocytes # (Auto) 1.4 x10^3/uL (1.0-4.8) Monocytes # (Auto) 0.2 x10^3/uL (0.0-1.1) Eosinophils # (Auto) 0.1 x10^3/uL (0.0-0.7) Basophils # (Auto) 0.1 x10^3/uL (0.0-0.2) Sodium Level 134 mmol/L (136-145) L Potassium Level 4.0 mmol/L (3.5-5.1) Chloride Level 100 mmol/L (98-107) Carbon Dioxide Level 29 mmol/L (21-32) Anion Gap 5 (6-14) L Blood Urea Nitrogen 11 mg/dL (7-20) Creatinine 0.8 mg/dL (0.6-1.0) Estimated GFR (Cockcroft-Gault) 84.8 BUN/Creatinine Ratio 14 (6-20) Glucose Level 385 mg/dL (70-99) H Calcium Level 8.6 mg/dL (8.5-10.1) Total Bilirubin 0.3 mg/dL (0.2-1.0) Aspartate Amino Transferase (AST) 21 U/L (15-37) Alanine Aminotransferase (ALT) 55 U/L (14-59) Alkaline Phosphatase 74 U/L (46-116) Total Protein 6.1 g/dL (6.4-8.2) L Albumin 3.0 g/dL (3.4-5.0) L Albumin/Globulin Ratio 1.0 (1.0-1.7) Acetone Level Neg (NEG) Urine Collection Type Unknown Urine Color Colorless Urine Clarity Clear Urine pH 8.5 Urine Specific [place] 1.020 Urine Protein Trace (NEG-TRACE) Urine Glucose (UA) >=1000 mg/dL (NEG) Urine Ketones (Stick) Neg mg/dL (NEG) Urine Blood Small (NEG) Urine Nitrite Neg (NEG) Urine Bilirubin Neg (NEG) Urine Urobilinogen Dipstick 0.2 mg/dL (0.2 mg/dL) Urine Leukocyte Esterase Neg (NEG) Urine RBC 20-40 /HPF (0-2) Urine WBC Occ /HPF (0-4) Urine Squamous Epithelial Cells None /LPF Urine Bacteria 0 /HPF (0-FEW) Urine Opiates Screen Neg (NEG) Urine Methadone Screen Neg (NEG) Urine Barbiturates Neg (NEG) Urine Phencyclidine Screen Neg (NEG) Urine Amphetamine/Methamphetamine Neg (NEG) Urine Benzodiazepines Screen Neg (NEG) Urine Cocaine Screen Neg (NEG) Urine Cannabinoids Screen Neg (NEG) Urine Ethyl Alcohol Neg (NEG) Urine Test Negative (NEG) Test 01/09/21 21:14 Glucose (Fingerstick) 56 mg/dL (70-99) L (VANESSA LE APRN) EKG EKG [] (VANESSA LE APRN) Radiology/Procedures Radiology/Procedures [] (VANESSA LE APRN) Heart Score Risk Factors: Risk Factors: DM, Current or recent (<one month) smoker, HTN, HLP, family history of CAD, obesity. Risk Scores: Risk Factors: DM, Current or recent (<one month) smoker, HTN, HLP, family history of CAD, obesity. (VANESSA LE APRN) Course & Med Decision Making Course & Med Decision Making Pertinent Labs and Imaging studies reviewed. (See chart for details) 30-year-old female, vital signs reviewed, presents emergency department complaining of ongoing nausea and vomiting. Patient is well-known to this emergency department, has been seen here several times in the past. Patient's physical exam was unremarkable, the patient presents today in appearance much better than past admissions over the last 2 months. Patient is nontoxic in appearance. Patient had elevated blood sugar of 460 in route, will treat with 1 L normal saline, 10 units IV regular insulin, 4 mg IV Zofran. Patient's urine was not infected, she is not , urine drug screen was negative for illicit drugs. Patient's labs did not support DKA, patient remained nontoxic in appearance, patient has not vomited since arriving to the emergency department. Patient was given 1 mg Dilaudid IV. Patient is rechecked blood sugar was 56, patient was given food to eat. Patient's repeat bedside fingerstick blood sugar was 154, patient's nausea and vomiting have resolved, patient's pain is now tolerable at a 5/10 on 110 pain scale. Patient gave verbal understanding discharge home instructions, follow-up with primary care soon, strict return to ER precautions and concerns, patient was discharged home without incident. (VANESSA LE APRN) Course & Med Decision Making Did not see or evaluate patient. Agree with CHARGING MANIPULATOR's work-up and disposition per note. (TANIKA CAMARENA MD) Dragon Disclaimer Dragon Disclaimer This electronic medical record was generated, in whole or in part, using a voice recognition dictation system. (VANESSA LE APRN) Departure Departure: Impression: Primary Impression: Nausea & vomiting Additional Impressions: Abdominal pain Type 1 diabetes mellitus Disposition: 01 DC HOME SELF CARE/HOMELESS Condition: GOOD Referrals: PCP,NO (PCP) Patient Instructions: Nausea and Vomiting Additional Instructions: Take medications as prescribed, follow-up with your primary care doctor soon, return to the emergency department for worsening symptoms or other concerns. Scripts Ondansetron (ONDANSETRON ODT) 4 Mg Tab.rapdis 4 MG PO TID PRN PRN for NAUSEA/VOMITING, #10 TAB 0 Refills Prov: VANESSA LE APRN 01/09/21 Problem Qualifiers Primary Impression: Nausea & vomiting Vomiting type: unspecified Vomiting Intractability: non-intractable Qualified Codes: R11.2 - Nausea with vomiting, unspecified Additional Impressions: Abdominal pain Abdominal location: generalized Qualified Codes: R10.84 - Generalized abdominal pain Type 1 diabetes mellitus Diabetes mellitus complication status: with other specified complication Qualified Codes: E10.69 - Type 1 diabetes mellitus with other specified complication VANESSA LE APRN Jan 09, 2021 21:20 TANIKA CAMARENA MD Jan 09, 2021 23:39
[2021-01-09 21:45] VITALS: BP 134/56
== END 2021-01-09 22:00 | disposition home or self-care (01) ==
LOC: ER 17:43
DX: E10.69 Type 1 diabetes mellitus with other specified complication (principal); R10.84 Generalized abdominal pain; R11.2 Nausea with vomiting, unspecified; F17.200 Nicotine dependence, unspecified, uncomplicated; Z88.8 Allergy status to other drugs, medicaments and biological substances
CPT/HCPCS: 36415; 80053; 80307; 81001; 81025; 82010; 82947; 85025; 96361; 96374; 96375; 99285; J1170; J1815; J2405; J7030

== ENCOUNTER 2021-01-13 17:51 | Emergency (ER) | payer SELFPAY ==
[~2021-01-13] VITALS: Ht 172.7 cm; Wt 60.0 kg
[~2021-01-13 17:51] MED LIST changes: +ONDA4TAB12 PO
--- NOTE | 2021-01-13 18:25 | PHYS DOC ---
Past History Past Medical History: Diabetes, Ovarian Cyst Additional Past Medical Histor: gastroporesis, drug abuse (TU CASTANEDA APRN) Past Surgical History: Other Additional Past Surgical Histo: ovarian cysts removed (TU CASTANEDA APRN) Smoking: Less than 1pk/day Alcohol Use: None Drug Use: None (TU CASTANEDA APRN) General Adult EDM: Chief Complaint: HYPOGLYCEMIA HPI: HPI: Patient is a 30-year-old female who presents with hypoglycemia. Patient was brought in by EMS for a blood sugar in the 40s. Patient was given glucagon IM. EMS repeated blood sugar and it was 80 upon arrival in the ED. Patient states "last thing I remember was checking my blood sugar this morning and then being in the emergency room just now in the bathroom". Patient is reporting bilateral flank and abdominal pain. Patient denies taking anything for pain at home. Patient recently had ovarian cyst removed a week ago. Patient has a history of gastroparesis, diabetes type 1, anxiety. (TU CASTANEDA APRN) Review of Systems: Review of Systems: Constitutional: Denies fever or chills Eyes: Denies change in visual acuity HENT: Denies nasal congestion or sore throat Respiratory: Denies cough or shortness of breath Cardiovascular: Denies chest pain or edema GI: Reports abdominal pain, denies nausea, vomiting, bloody stools or diarrhea : Denies dysuria Musculoskeletal: Denies back pain or joint pain Integument: Denies rash Neurologic: Denies headache, focal weakness or sensory changes Endocrine: Denies polyuria or polydipsia Lymphatic: Denies swollen glands Psychiatric: Denies depression or anxiety (TU CASTANEDA APRN) Allergies: Allergies: Allergies Coded Allergies Type Severity Reaction Last Updated Verified acetaminophen Allergy Intermediate HIVES 12/25/20 Yes adhesive tape Allergy Intermediate 12/25/20 Yes (TU CASTANEDA APRN) Physical Exam: PE: Constitutional: Well developed, well nourished, no acute distress, non-toxic appearance. [] HENT: Normocephalic, atraumatic, bilateral external ears normal, oropharynx moist, no oral exudates, nose normal. [] Eyes: PERRLA, EOMI, conjunctiva normal, no discharge. [] Neck: Normal range of motion, no tenderness, supple, no stridor. [] Cardiovascular:Heart rate regular rhythm, no murmur [] Lungs & Thorax: Bilateral breath sounds clear to auscultation [] Abdomen: Bowel sounds normal, soft, generalized tenderness, no masses, no pulsatile masses. [] Skin: Warm, dry, no erythema, no rash. [] Back: No tenderness, bilateral CVA tenderness. [] Extremities: No tenderness, no cyanosis, no clubbing, ROM intact, no edema. [] Neurologic: Alert and oriented X 3, normal motor function, normal sensory function, no focal deficits noted. [] Psychologic: Affect normal, judgement normal, mood normal. [] (TU CASTANEDA APRN) EKG: EKG: [] (TU CASTANEDA APRN) Radiology/Procedures: Radiology/Procedures: [] (TU CASTANEDA APRN) Heart Score: Risk Factors: Risk Factors: DM, Current or recent (<one month) smoker, HTN, HLP, family history of CAD, obesity. Risk Scores: Score 0 - 3: 2.5% MACE over next 6 weeks - Discharge Home Score 4 - 6: 20.3% MACE over next 6 weeks - Admit for Clinical Observation Score 7 - 10: 72.7% MACE over next 6 weeks - Early Invasive Strategies (TU CASTANEDA APRN) Course & Med Decision Making: Course & Med Decision Making Pertinent Labs and Imaging studies reviewed. (See chart for details) []Patient is a 30-year-old female who presents with hypoglycemia. Patient was brought in by EMS for a blood sugar in the 40s. Patient was given glucagon IM. EMS repeated blood sugar and it was 80 upon arrival in the ED. Patient states "last thing I remember was checking my blood sugar this morning and then being in the emergency room just now in the bathroom". Patient is reporting bilateral flank and abdominal pain. Patient denies taking anything for pain at home. Patient recently had ovarian cyst removed a week ago. Patient has a history of gastroparesis, diabetes type 1, anxiety. UA positive for WBCs and nitrates. Antibiotic given to patient at discharge. AST and ALT are both slightly elevated. Will have patient follow-up with PCP. Blood sugar is 208 after patient has eaten. Patient given Percocet and morphine in the emergency room for abdominal pain. Patient reporting nausea. Patient given Zofran. (CASTANEDA,TU ERP DEVELOPER) Course & Med Decision Making Did not see or evaluate patient. Agree with WRAPPING MACHINE OPERATOR's work-up and disposition per no te. (TANIKA CAMARENA MD) Annelise Disclaimer: Annelise Disclaimer: This electronic medical record was generated, in whole or in part, using a voice recognition dictation system. (TU CASTANEDA ERP DEVELOPER) Departure Departure: Impression: Primary Impression: Hypoglycemia Additional Impression: UTI (urinary tract infection) Qualified Codes: N30.00 - Acute cystitis without hematuria Referrals: PCP,NO (PCP) Patient Instructions: Hypoglycemia, [id number] Additional Instructions: You were seen in the emergency room today for low blood sugar. Your urine was positive for a UTI. Antibiotics were given at discharge. Please take the antibiotics as directed. EMERGENCY DEPARTMENT GENERAL DISCHARGE INSTRUCTIONS Thank you for coming to [facility] (ED) today and trusting us with you care. We trust that you had a positivie experience in our Emergency Department. If you wish to speak to the department management, you may call the director at [phone]. YOUR FOLLOW UP INSTRUCTIONS ARE FOLLOWS: 1. Do you have a private Doctor? If you do not have a private doctor, please ask for a resource list of physicians or clinics that may be able to assist you with follow up care. 2. The Emergency Physician has interpreted your x-rays. The X-Ray specialist will also review them. If there is a change in the findings, you will be notified in 48 hours when at all possible. 3. A lab test or culture has been done, your results will be reviewed and you will be notified if you need a change in treatment. ADDITIONAL INSTRUCTIONS AND INFORMATION: 1. Your care today has been supervised by a physician who is specially trained in emergency care. Many problems require more than one evaluation for a complete diagnosis and treatment. We recommend that you schedule your follow up appointment as recommended to ensure complete treatment of you illness or injury. If you are unable to obtain follow up care and continue to have a problem, or if your condition worsens, we recommend that you return to the ED. 2. We are not able to safely determine your condition over the phone nor are we able to give sound medical advice over the phone. For these safety reasons, if you call for medical advice we will ask you to come to the ED for further evaluation. 3. If you have any questions regarding these discharge instructions please call the ED at [phone]. SAFETY INFORMATION: In the interest of safety, wellness, and injury prevention; we encourage you to wear your sealbelt, if you smoke; quite smoking, and we encourage family to use a protective helmet for bicycling and other sporting events that present an increased risk for head injury. IF YOUR SYMPTOMS WORSEN OR NEW SYMPTOMS DEVELOP, OR YOU HAVE CONCERNS ABOUT YOUR CONDITION; OR IF YOUR CONDITION WORSENS WHILE YOU ARE WAITING FOR YOUR FOLLOW UP APPOINTMENT; EITHER CONTACT YOUR PRIMARY CARE DOCTOR, THE PHYSICIAN WHOSE NAME AND NUMBER YOU WERE Arin VAUGHAN, OR RETURN TO THE ED IMMEDIATELY. Scripts Cephalexin (CEPHALEXIN) 500 Mg Tablet 1 TAB PO BID for infection for 5 Days, #10 TAB Prov: TU CASTANEDA APRN 01/13/21 TU CASTANEDA APRN Jan 13, 2021 18:25 TANIKA CAMARENA MD Jan 15, 2021 01:56
[2021-01-13] MEDS ORDERED: oxyCODONE/APAP 5/325 1 TAB TABLET PO ONE (18:30)
[2021-01-13 18:59] LABS: BILIRUBIN,URINE NEG (NEG); CLARITY,URINE CLOUDY; COLOR,URINE YELLOW; GLUCOSE,URINE NEG (NEG); NITRITE,URINE POS (NEG)
[2021-01-13 19:00] LABS: BACTERIA,URINE MOD /HPF (0-FEW); SQUAMOUS EPITHELIAL CELL,UR FEW /LPF; WBC,URINE >40 /HPF (0-4)
[2021-01-13 19:01] LABS: AMORPHOUS SEDIMENT,UR PRESENT /HPF
[2021-01-13 19:16] LABS: BASO % 0 % (0-3); EOS # 0.1 x10^3/uL (0.0-0.7); EOS % 1 % (0-3); HEMATOCRIT 39.7 % (36.0-47.0); HEMOGLOBIN 12.9 g/dL (12.0-15.5); LYMPH # 0.9 x10^3/uL (1.0-4.8); LYMPH % 7 % (24-48); MEAN CORPUSCULAR HEMOGLOBIN 29 pg (25-35); MEAN CORPUSCULAR HGB CONC 32 g/dL (31-37); MEAN CORPUSCULAR VOLUME 91 fL (79-100); MONO # 0.9 x10^3/uL (0.0-1.1); MONO % 7 % (0-9); NEUT # 11.4 x10^3uL (1.8-7.7); NEUT % 86 % (31-73); PLATELET COUNT 289 x10^3/uL (140-400); RED BLOOD COUNT 4.39 x10^6/uL (3.50-5.40); RED CELL DISTRIBUTION WIDTH 15.7 % (11.5-14.5); WHITE BLOOD COUNT 13.2 x10^3/uL (4.0-11.0)
[2021-01-13 19:19] LABS: CALCIUM 9.1 mg/dL (8.5-10.1); CREATININE 0.8 mg/dL (0.6-1.0); GFR 84.8; POTASSIUM 4.1 mmol/L (3.5-5.1)
[2021-01-13 19:30] LABS: ALBUMIN 3.5 g/dL (3.4-5.0); ALBUMIN/GLOBULIN RATIO 0.9 (1.0-1.7); TOTAL BILIRUBIN 0.4 mg/dL (0.2-1.0); TOTAL PROTEIN 7.6 g/dL (6.4-8.2)
[2021-01-13] MEDS ORDERED: MORPHINE SULFATE 4 MG/ML DISP.SYRIN. IV ONE (20:45)
[2021-01-13] MEDS ORDERED: CEPH500T PO (21:53)
--- NOTE | 2021-01-13 21:55 | EKG ---
[address] [address] Test Date: 2021-01-13 Test Time: 19:01:54 Pat Name: CHALO RAYMUNDO Department: Room: Gender: F Mineralogy Teacher: : 1990 Requested By: TU CASTANEDA Order Number: [id number] Reading MD: Measurements Intervals [place] Rate: 92 P: 61 VT: 130 QRS: 75 QRSD: 88 T: 48 QT: 324 QTc: 405 Interpretive Statements SINUS RHYTHM NO SPECIFIC ECG ABNORMALITIES RI6.02 No previous ECG available for comparison
[2021-01-13] MEDS ORDERED: ONDANSETRON PF 4 MG/2 ML VIAL. ONE (22:11)
[2021-01-13] MEDS ORDERED: ONDANSETRON PF 4 MG/2 ML VIAL. IVP ONE (22:15)
[2021-01-13 22:18] VITALS: BP 124/75
== END 2021-01-13 22:18 | disposition home or self-care (01) ==
LOC: ER 17:51
DX: E11.649 Type 2 diabetes mellitus with hypoglycemia without coma (principal); N30.00 Acute cystitis without hematuria; F17.200 Nicotine dependence, unspecified, uncomplicated; F41.9 Anxiety disorder, unspecified; Z88.8 Allergy status to other drugs, medicaments and biological substances; Z88.6 Allergy status to analgesic agent
CPT/HCPCS: 36415; 80053; 81001; 82947; 83690; 85025; 87086; 93005; 96374; 96375; 99284; J2270; J2405

== ENCOUNTER 2021-01-15 11:34 | Emergency (ER) | payer SELFPAY ==
[~2021-01-15] VITALS: Ht 172.7 cm; Wt 60.0 kg
[~2021-01-15 11:34] MED LIST changes: +BUPR150T21 PO; -BUPR150T7 PO; +CEPH500T PO
[2021-01-15 12:05] LABS: BASO % 0 % (0-3); EOS % 0 % (0-3); HEMATOCRIT 39.9 % (36.0-47.0); HEMOGLOBIN 12.7 g/dL (12.0-15.5); LYMPH # 0.6 x10^3/uL (1.0-4.8); LYMPH % 5 % (24-48); MEAN CORPUSCULAR HEMOGLOBIN 29 pg (25-35); MEAN CORPUSCULAR HGB CONC 32 g/dL (31-37); MEAN CORPUSCULAR VOLUME 93 fL (79-100); MONO # 0.3 x10^3/uL (0.0-1.1); MONO % 3 % (0-9); NEUT # 10.7 x10^3uL (1.8-7.7); NEUT % 92 % (31-73); PLATELET COUNT 333 x10^3/uL (140-400); RED BLOOD COUNT 4.31 x10^6/uL (3.50-5.40); RED CELL DISTRIBUTION WIDTH 15.4 % (11.5-14.5); WHITE BLOOD COUNT 11.7 x10^3/uL (4.0-11.0)
[2021-01-15 12:23] LABS: ALBUMIN 3.6 g/dL (3.4-5.0); ALBUMIN/GLOBULIN RATIO 0.9 (1.0-1.7); CALCIUM 9.6 mg/dL (8.5-10.1); CREATININE 1.5 mg/dL (0.6-1.0); GFR 41.1; POTASSIUM 5.1 mmol/L (3.5-5.1); TOTAL BILIRUBIN 1.1 mg/dL (0.2-1.0); TOTAL PROTEIN 7.7 g/dL (6.4-8.2)
[2021-01-15] MEDS ORDERED: IV NORMAL SALINE 1,000ML 1,000 ML IV ONE ×2 (12:30→12:45)
[2021-01-15] MEDS ORDERED: ONDANSETRON PF 4 MG/2 ML VIAL. IVP ONE ×2 (12:30→13:45)
[2021-01-15] MEDS ORDERED: KETOROLAC 30 MG/ML VIAL. IVP ONE (12:45)
[2021-01-15] MEDS ORDERED: MORPHINE SULFATE 4 MG/ML DISP.SYRIN. IV ONE (13:45)
--- NOTE | 2021-01-15 15:09 | PHYS DOC ---
Past History Past Medical History: Diabetes, Ovarian Cyst Additional Past Medical Histor: gastroporesis, drug abuse Past Surgical History: Other Additional Past Surgical Histo: ovarian cysts removed Smoking: Less than 1pk/day Alcohol Use: None Drug Use: None Adult General Chief Complaint Chief Complaint: NAUSEA/VOMITING/DIARRHEA HPI HPI Patient is a 30-year-old female who presents to the emergency room complaining of severe abdominal pain and vomiting. This is very similar to patient's previous episodes of similar pain and vomiting. Patient states she took her Lantus this morning 20 units. She has not taken any other insulin today. She states her symptoms started yesterday. She has not checked her blood glucose levels. She states there is nothing different about this episode other than the pain is worse than usual. Pain is diffuse and crampy in nature. Nothing seems to make it worse or better. Review of Systems Review of Systems Complete ROS is negative unless otherwise documented in HPI Current Medications Current Medications Current Medications Medications (Trade) Dose Ordered Sig/Chevy Start Time Stop Time Status Last Admin Dose Admin Ketorolac Tromethamine (Toradol 30mg Vial) 30 mg 1X ONCE 01/15/21 12:45 01/15/21 12:52 DC 01/15/21 13:03 30 MG Morphine Sulfate (Morphine 4mg Syringe) 4 mg 1X ONCE 01/15/21 13:45 01/15/21 13:51 DC 01/15/21 13:54 4 MG Ondansetron HCl (Zofran) 4 mg 1X ONCE 01/15/21 13:45 01/15/21 13:51 DC 01/15/21 13:53 4 MG Sodium Chloride 1,000 ml @ 1,000 mls/hr 1X ONCE 01/15/21 12:45 01/15/21 13:44 DC Allergies Allergies Allergies Coded Allergies Type Severity Reaction Last Updated Verified acetaminophen Allergy Intermediate HIVES 12/25/20 Yes adhesive tape Allergy Intermediate 12/25/20 Yes Physical Exam Physical Exam General: Awake, alert, moderate distress. Well Nourished, well hydrated. Cooperative HEENT: Atraumatic, EOMI, PERRL, airway patent, moist oral mucosa Neck: Supple, trachea midline Respiratory: CTA bilaterally, normal effort, no wheezing/crackles CV: Tachycardic, no murmur, cap refill <2 GI: Soft, nondistended, nontender, no masses MSK: No obvious deformities Skin: Warm, dry, intact Neuro: A&O x3, speech NL, sensory and motor grossly intact, no focal deficits Psych: Normal affect, normal mood, not suicidal or homicidal Current Patient Data Vital Signs Vital Signs Date Time Temp Pulse Resp B/P (MAP) Pulse Ox O2 Delivery O2 Flow Rate FiO2 01/15/21 14:21 121 18 103/45 (64) 98 01/15/21 13:54 Room Air 01/15/21 11:51 98.6 Lab Results Laboratory Tests Test 01/15/21 11:38 01/15/21 11:46 Glucose (Fingerstick) 501 mg/dL (70-99) *H White Blood Count 11.7 x10^3/uL (4.0-11.0) H Red Blood Count 4.31 x10^6/uL (3.50-5.40) Hemoglobin 12.7 g/dL (12.0-15.5) Hematocrit 39.9 % (36.0-47.0) Mean Corpuscular Volume 93 fL (79-100) Mean Corpuscular Hemoglobin 29 pg (25-35) Mean Corpuscular Hemoglobin Concent 32 g/dL (31-37) Red Cell Distribution Width 15.4 % (11.5-14.5) H Platelet Count 333 x10^3/uL (140-400) Neutrophils (%) (Auto) 92 % (31-73) H Lymphocytes (%) (Auto) 5 % (24-48) L Monocytes (%) (Auto) 3 % (0-9) Eosinophils (%) (Auto) 0 % (0-3) Basophils (%) (Auto) 0 % (0-3) Neutrophils # (Auto) 10.7 x10^3uL (1.8-7.7) H Lymphocytes # (Auto) 0.6 x10^3/uL (1.0-4.8) L Monocytes # (Auto) 0.3 x10^3/uL (0.0-1.1) Eosinophils # (Auto) 0.0 x10^3/uL (0.0-0.7) Basophils # (Auto) 0.0 x10^3/uL (0.0-0.2) Sodium Level 132 mmol/L (136-145) L Potassium Level 5.1 mmol/L (3.5-5.1) Chloride Level 90 mmol/L (98-107) L Carbon Dioxide Level 14 mmol/L (21-32) L Anion Gap 28 (6-14) H Blood Urea Nitrogen 42 mg/dL (7-20) H Creatinine 1.5 mg/dL (0.6-1.0) H Estimated GFR (Cockcroft-Gault) 41.1 BUN/Creatinine Ratio 28 (6-20) H Glucose Level 531 mg/dL (70-99) *H Calcium Level 9.6 mg/dL (8.5-10.1) Total Bilirubin 1.1 mg/dL (0.2-1.0) H Aspartate Amino Transferase (AST) 34 U/L (15-37) Alanine Aminotransferase (ALT) 103 U/L (14-59) H Alkaline Phosphatase 149 U/L (46-116) H Total Protein 7.7 g/dL (6.4-8.2) Albumin 3.6 g/dL (3.4-5.0) Albumin/Globulin Ratio 0.9 (1.0-1.7) L EKG EKG [] Radiology/Procedures Radiology/Procedures [] Heart Score Risk Factors: Risk Factors: DM, Current or recent (<one month) smoker, HTN, HLP, family history of CAD, obesity. Risk Scores: Risk Factors: DM, Current or recent (<one month) smoker, HTN, HLP, family history of CAD, obesity. Course & Med Decision Making Course & Med Decision Making Pertinent Labs and Imaging studies reviewed. (See chart for details) Patient is a 30-year-old female with a past medical history of diabetes who presents the emergency room with symptoms concerning for DKA. The patient is not compliant with their home regimen. On exam, patient is vomiting and is complaining of abdominal pain with tachycardia. CBC, BMP, UA, magnesium, phosphorus, venous blood gas were ordered to evaluate for severity at DKA and possible precipitating factors. Normal saline boluses were started. Patient was started on an insulin drip after fluid boluses. At this time patient's potassium is normal and does not need replaced. Patient's other labs were significant for a bicarb of 14 with a gap of 28. There is not concern for infection at this time. Patient is not altered and is protecting their airway. Patient will be admitted for further care. I discussed the case with Dr. Pereira who would like her transferred to [facility]. Dragon Disclaimer Dragon Disclaimer This electronic medical record was generated, in whole or in part, using a voice recognition dictation system. Critical Care Note Comments Critical Care: Authorized and Performed by: Partha Ball MD Total critical care time: approximately [45] minutes Due to a high probability of clinically significant, life threatening deterioration, the patient required my highest level of preparedness to intervene emergently and I personally spent this critical care time directly and personally managing the patient. This critical care time included obtaining a history; examining the patient; pulse oximetry; ventilator management if necessary; ordering and review of studies; arranging urgent treatment with development of a management plan; evaluation of patient's response to treatment; frequent reassessment; discussion with patient/family; and, discussions with other providers. This critical care time was performed to assess and manage the high probability of imminent, life-threatening deterioration that could result in multi-organ failure. It was exclusive of separately billable procedures and treating other patients and teaching time. Please see MDM section and the rest of the note for further information on patient assessment and treatment. Departure Departure: Impression: Primary Impression: Diabetic ketoacidosis associated with type 1 diabetes mellitus Disposition: 02 DC/TRF OTHER SHORT TERM HOS Condition: IMPROVED Referrals: PCP,BAY (PCP) PARTHA BALL MD Jan 15, 2021 15:09
[2021-01-15 16:33] LABS: BILIRUBIN,URINE NEG (NEG); CLARITY,URINE CLOUDY; COLOR,URINE YELLOW; GLUCOSE,URINE 500 mg/dL (NEG); NITRITE,URINE NEG (NEG); UROBILINOGEN,URINE 0.2 mg/dL (0.2 mg/dL)
[2021-01-15 16:34] LABS: BACTERIA,URINE MOD /HPF (0-FEW); SQUAMOUS EPITHELIAL CELL,UR FEW /LPF; WBC,URINE TNTC /HPF (0-4)
[2021-01-15] MEDS ORDERED: HALOPERIDOL LACT 5 MG/ML VIAL. IVP ONE (17:00)
[2021-01-15 18:30] VITALS: BP 113/49
== END 2021-01-15 19:08 | disposition short-term general hospital (02) ==
LOC: ER 11:34
DX: E10.10 Type 1 diabetes mellitus with ketoacidosis without coma (principal); Z79.4 Long term (current) use of insulin
CPT/HCPCS: 36415; 80053; 81001; 82947; 85025; 87086; 96361; 96374; 96375; 96376; 99291; J1630; J1885; J2270; J2405; J7030; 87077

== ENCOUNTER 2021-01-23 13:17 | Emergency (ER) | payer SELFPAY ==
[~2021-01-23] VITALS: Ht 172.7 cm; Wt 57.6 kg
[2021-01-23] MEDS ORDERED: IV NORMAL SALINE 1,000ML 1,000 ML IV SCH (13:45)
--- NOTE | 2021-01-23 14:02 | RAD ---
EXAM: Frontal view of the chest, AP views of the abdomen in upright and supine positions. CLINICAL INDICATION: Reason: Abdomen and lower back pain / Spl. Instructions: / History: COMPARISON: 12/23/2020 03/04/2019 FINDINGS and IMPRESSION: The heart is not enlarged. Mediastinal and hilar contours are normal. No focal parenchymal airspace o pacity. No pleural effusion or pneumothorax. No abnormal small or large bowel dilatation. Moderate to large volume colonic stool content. No abn ormal soft tissue mass effect. No suspicious calcifications are seen. No free intraperitoneal gas. Electronically signed by: Hugo Turcios MD (01/23/2021 2:00 PM) RAY
--- NOTE | 2021-01-23 14:13 | PHYS DOC ---
Past History Past Medical History: Diabetes, Ovarian Cyst Additional Past Medical Histor: gastroporesis, drug abuse Past Surgical History: Other Additional Past Surgical Histo: ovarian cysts removed Smoking: Less than 1pk/day Alcohol Use: None Drug Use: None General Adult EDM: Chief Complaint: FLANK PAIN HPI: HPI: 30-year-old female past medical history diabetes (noncompliant with insulin) and diabetic gastroparesis presents to the ED with complaints of left low back pain, nausea and nbnb vomiting for the past week. Reports she was admitted to [facility] recently for these sxs and was diagnsoed with "kidney stones." Takes lantus 20U bid (qam & qhs) and sliding scales with meals. Has not eaten anything today and has not taken her morning Lantus or any sliding scale Lantus today. States that she was discharged from the hospital she was not given any pain medication. Patient with history of opioid abuse-known by nursing staff for drug seeking behavior (I am not familiar with pt). EMR was reviewed after patient providing me with verbal consent to review her recent records at [facility]. Patient was admitted from January 16 and discharged yesterday on January 22. CT report w/nonobstructive left renal calculus. Pt was admitted for dka, erika and multiloculated ovarian cyst status post laparoscopic left ovarian cystectomy and resection of endometriosis. Reports no vaginal bleeding. . Review of Systems: Review of Systems: Constitutional: Denies fever or chills Eyes: Denies change in visual acuity HENT: Denies nasal congestion or sore throat Respiratory: Denies cough or shortness of breath Cardiovascular: Denies chest pain or edema GI: Denies abdominal pain, bloody stools or diarrhea : Denies dysuria or hematuria or vaginal bleeding Musculoskeletal: Denies CVA tenderness, joint pain or swelling Integument: Denies rash or diaphoresis Neurologic: Denies headache, neck stiffness focal weakness or sensory changes Endocrine: Denies polyuria or polydipsia Lymphatic: Denies swollen glands Psychiatric: Denies depression or anxiety Current Medications: Current Meds: Current Medications Medications (Trade) Dose Ordered Sig/Chevy Start Time Stop Time Status Last Admin Dose Admin Sodium Chloride 1,000 ml @ 1,000 mls/hr Q1H 01/23/21 13:45 01/23/21 14:44 Allergies: Allergies: Allergies Coded Allergies Type Severity Reaction Last Updated Verified acetaminophen Allergy Intermediate HIVES 12/25/20 Yes adhesive tape Allergy Intermediate 12/25/20 Yes Physical Exam: PE: Constitutional: Well developed, very thin - malnourished, disheveled/unkept appearance w/ashen skin color typical w/drug use, no acute distress, non-toxic appearance. HENT: Normocephalic, atraumatic, dry mucous membranes Eyes: EOMI, conjunctiva normal, no discharge. Neck: Normal range of motion, supple, Cardiovascular: S1/2 present, regular rhythm Lungs & Thorax: Speaking in full sentences, bilateral equal chest rise, no tachypnea or increased work of breathing Abdomen: soft, no tenderness, no active vomiting Skin: Warm, dry, no erythema, no rash. [] Back: left lumbar paraspinal [id number] no active distress, no CVA tenderness. [] Extremities: No tenderness, no cyanosis, no lower extremity edema Neurologic: Alert and oriented X 3, normal motor function, normal sensory function, no focal deficits noted. [] Psychologic: Affect normal, judgement normal, mood normal. [] EKG: EKG: Sinus rhythm at 66 bpm, no axis deviation, normal intervals, T wave inversion V2, no ST elevations or ST depressions Radiology/Procedures: Radiology/Procedures: IMAGING REPORT Signed PATIENT: CHALO RAYMUNDO ACCOUNT: [id number] : 1990 LOCATION: ER AGE: 30 SEX: F EXAM STATUS: PRE ER ORD. PHYSICIAN: ESVIN AGUIRRE DO REASON: Abdomen and lower back pain PROCEDURE: ACUTE ABDOMEN SERIES EXAM: Frontal view of the chest, AP views of the abdomen in upright and supine positions. CLINICAL INDICATION: Reason: Abdomen and lower back pain / Spl. Instructions: / History: COMPARISON: 12/23/2020 03/04/2019 FINDINGS and IMPRESSION: The heart is not enlarged. Mediastinal and hilar contours are normal. No focal parenchymal airspace opacity. No pleural effusion or pneumothorax. No abnormal small or large bowel dilatation. Moderate to large volume colonic stool content. No abnormal soft tissue mass effect. No suspicious calcifications are seen. No free intraperitoneal gas. Electronically signed by: Hugo Singh MD (01/23/2021 2:00 PM) [facility] DICTATED AND SIGNED BY: HUGO SINGH MD DATE: 01/23/21 [id number] CC: PCP,NO; ESVIN AGUIRRE DO ~MTH0 0 IMAGING REPORT Signed PATIENT: CHALO RAYMUNDO ACCOUNT: [id number] : 1990 LOCATION: ER AGE: 30 SEX: F EXAM STATUS: REG ER ORD. PHYSICIAN: ESVIN AGUIRRE DO REASON: left low back pain, s/p lap sx w/cyst removal and PROCEDURE: CT ABDOMEN PELVIS WO CONTRAST Exam: CT of abdomen and pelvis without contrast INDICATION: Left lower back pain, status post cyst removal TECHNIQUE: Sequential axial images through the abdomen and pelvis obtained w ithout IV contrast. Sagittal and coronal reformatted images were reconstructed from the axial data and reviewed. Comparisons: 01/09/2021 FINDINGS: Heart size is normal. No pericardial effusion. Visualized lung bases are clear. No pleural effusion. Evaluation of solid organs is limited secondary to noncontrast technique. Liver, spleen, pancreas, gallbladder and adrenals are unremarkable. No perinephric inflammation or hydronephrosis. There is a nonobstructing 2 mm calculus at the upper pole of the left kidney. No ureteral calculi are identified. Bladder is distended and appears thin-walled. Uterus is not enlarged. No abnormal adnexal mass. Large and small bowel are unremarkable. Appendix is normal. No free intra- abdominal air or fluid. No obstruction. Abdominal aorta has a normal course and caliber. Abdominal vasculature is patent. No enlarged intra-abdominal lymph nodes are identified. No suspicious osseous lesions or acute fractures. IMPRESSION: 1. Interval resolution of the left adnexal cystic lesion. Correlate with surgical history. 2. Bladder is markedly distended. Correlate for bladder outlet obstruction. 3. Nonobstructing left renal calculus. No ureteral calculus or evidence for obstructive uropathy. Exposure: One or more of the following in the visualized dose reduction techniques were utilized for this examination: 1. Automated exposure control 2. Adjustment of the MA and/or KV according to patient size 3. Use of iterative of reconstructive technique Electronically signed by: Ben Aceves MD (01/23/2021 4:44 PM) [facility] DICTATED AND SIGNED BY: BEN ACEVES MD DATE: 01/23/21 1640 CC: PCP,NO; CARLAESVIN M DO ~MTH0 0 Heart Score: C/O Chest Pain: No Risk Factors: Risk Factors: DM, Current or recent (<one month) smoker, HTN, HLP, family history of CAD, obesity. Risk Scores: Score 0 - 3: 2.5% MACE over next 6 weeks - Discharge Home Score 4 - 6: 20.3% MACE over next 6 weeks - Admit for Clinical Observation Score 7 - 10: 72.7% MACE over next 6 weeks - Early Invasive Strategies Course & Med Decision Making: Course & Med Decision Making Pertinent Labs and Imaging studies reviewed. (See chart for details) Patient presents the ED with chronic symptoms have been present for more than 1 week. Is not currently on her menses, could have passed a stone. Encouraged eating while taking insulin. Will prescribe Reglan and Zofran for diabetic gastroparesis and vomiting. Pain resolved with ketamine - smiling on re-eval. I recommend [id number]-vqv-[id number] analgesia. Patient voided after CT imaging of her abdomen pelvis. Tolerated food/drink in ed. Will discharge home with strict ED return precautions were given for intractable nausea vomiting or syncope. Encouraged urgent outpatient follow-up with PMD and pain management. Life-threatening processes were considered but are low suspicion at this time, given history, physical exam and ED workup. Pt was educated on all prescription medications and adverse effects. All patient's questions were answered and pt was stable at time of discharge. Life/limb-threatening differential includes but is not limited to, aortic dissection/aneurysm, cauda equina syndrome, transverse myelitis, spinal cord/epidural compression syndromes, discitis, spinal stenosis, epidural abscess or hematoma, osteomyelitis, disc herniation, surgical abdomen, stable or unstable fracture, renal/ureteral colic, sepsis, meningitis, musculoskeletal injury, traumatic injury, intraabdominal/retroperitoneal or pelvic bleeding. I spoken with the patient and her caregivers. I explained the patient's condition, diagnoses and treatment plan based on the information available to me at this time. I have answered the patient and her caregiver's questions and addressed any concerns. The patient and her caregivers have a good understanding of patient's diagnosis, condition and treatment plan as can be expected at this point. Vital signs have been stable. Patient's condition is stable and appropriate for discharge from the emergency department. Patient will pursue further outpatient evaluation with primary care physician or other designated or consulting physician as outlined in the discharge instructions. The patient and/or caregivers are agreeable to this plan of care and follow-up instructions have been explained in detail. The patient and/or caregivers have received these instructions in written form and have expressed an understanding of the discharge instructions. The patient and/or caregivers are aware that any significant change of condition or worsening of symptoms should prompt immediate return to this or the closest emergency department or [facility] Disclaimer: Annelise Disclaimer: This electronic medical record was generated, in whole or in part, using a voice recognition dictation system. Departure Departure: Impression: Primary Impression: Flank pain Additional Impressions: Diabetic gastroparesis Nausea and vomiting Disposition: 01 DC HOME SELF CARE/HOMELESS Condition: STABLE Referrals: PCP,NO (PCP) FOLLOW UP WITH FAMILY MEDICINE: Family Medicine Address: [address] [facility] [address] [place] [address] Patient Instructions: Flank Pain, Gastroparesis, Nausea and Vomiting Additional Instructions: FOLLOW UP WITH PAIN MANAGEMENT: [facility] Address: [address] [facility] [address] [place] [address] EMERGENCY DEPARTMENT GENERAL DISCHARGE INSTRUCTIONS Thank you for coming to [facility] (ED) today and trusting us with you care. We trust that you had a positivie experience in our Emergency Department. If you wish to speak to the department management, you may call the director at [phone]. YOUR FOLLOW UP INSTRUCTIONS ARE FOLLOWS: 1. Do you have a private Doctor? If you do not have a private doctor, please ask for a resource list of physicians or clinics that may be able to assist you with follow up care. 2. The Emergency Physician has interpreted your x-rays. The X-Ray specialist will also review them. If there is a change in the findings, you will be notified in 48 hours when at all possible. 3. A lab test or culture has been done, your results will be reviewed and you will be notified if you need a change in treatment. ADDITIONAL INSTRUCTIONS AND INFORMATION: 1. Your care today has been supervised by a physician who is specially trained in emergency care. Many problems require more than one evaluation for a complete diagnosis and treatment. We recommend that you schedule your follow up appointment as recommended to ensure complete treatment of you illness or injury. If you are unable to obtain follow up care and continue to have a problem, or if your condition worsens, we recommend that you return to the ED. 2. We are not able to safely determine your condition over the phone nor are we able to give sound medical advice over the phone. For these safety reasons, if you call for medical advice we will ask you to come to the ED for further evaluation. 3. If you have any questions regarding these discharge instructions please call the ED at [phone]. SAFETY INFORMATION: In the interest of safety, wellness, and injury prevention; we encourage you to wear your sealbelt, if you smoke; quite smoking, and we encourage family to use a protective helmet for bicycling and other sporting events that present an increased risk for head injury. IF YOUR SYMPTOMS WORSEN OR NEW SYMPTOMS DEVELOP, OR YOU HAVE CONCERNS ABOUT YOUR CONDITION; OR IF YOUR CONDITION WORSENS WHILE YOU ARE WAITING FOR YOUR FOLLOW UP APPOINTMENT; EITHER CONTACT YOUR PRIMARY CARE DOCTOR, THE PHYSICIAN WHOSE NAME AND NUMBER YOU WERE GIVEN, OR RETURN TO THE ED IMMEDIATELY. Scripts Metoclopramide Hcl (REGLAN) 10 Mg Tablet 1 TAB PO QID for nausea/vomiting for 30 Days, #20 TAB 0 Refills before food and bedtime Prov: ESVIN AGUIRRE DO 01/23/21 Ondansetron (ONDANSETRON ODT) 4 Mg Tab.rapdis 4 MG PO Q6HRS for Nausea/Vomiting, #15 TAB Prov: ESVIN AGUIRRE DO 01/23/21 ESVIN AGUIRRE DO Jan 23, 2021 14:13
[2021-01-23] MEDS ORDERED: FAMOTIDINE 20 MG/2 ML VIAL IVP ONE (14:30)
[2021-01-23] MEDS ORDERED: METOCLOPRAMIDE HCL 10 MG/2 ML VIAL. IVP ONE (14:30)
[2021-01-23] MEDS ORDERED: KETAMINE HCL IN NACL, ISO-OSM 50 MG/5 ML SYRINGE IV ONE (14:30)
--- NOTE | 2021-01-23 15:26 | EKG ---
[facility] ED [facility] [place] [id number] Test Date: 2021-01-23 Test Time: 13:40:03 Pat Name: CHALO RAYMUNDO Department: Room: Gender: F [employer] Agent: : 1990 Requested By: ESVIN AGUIRRE Order Number: [id number] Reading MD: Measurements Intervals Rena Lara Rate: 66 P: 53 [place]: 130 QRS: 63 QRSD: 70 T: 49 QT: 364 QTc: 383 Interpretive Statements SINUS RHYTHM NORMAL ECG RI6.02 No previous ECG available for comparison
[2021-01-23] MEDS ORDERED: ONDANSETRON ODT 4 MG TAB.RAPDIS PO ONE (16:15)
[2021-01-23] MEDS ORDERED: KETAMINE HCL 500 MG/10 ML VIAL. IV ONE (16:15)
[2021-01-23 16:22] LABS: BASO # 0.1 x10^3/uL (0.0-0.2); BASO % 1 % (0-3); EOS # 0.1 x10^3/uL (0.0-0.7); EOS % 1 % (0-3); HEMATOCRIT 34.1 % (36.0-47.0); HEMOGLOBIN 11.2 g/dL (12.0-15.5); LYMPH # 2.1 x10^3/uL (1.0-4.8); LYMPH % 31 % (24-48); MEAN CORPUSCULAR HEMOGLOBIN 29 pg (25-35); MEAN CORPUSCULAR HGB CONC 33 g/dL (31-37); MEAN CORPUSCULAR VOLUME 90 fL (79-100); MONO # 0.5 x10^3/uL (0.0-1.1); MONO % 8 % (0-9); NEUT # 3.8 x10^3uL (1.8-7.7); NEUT % 58 % (31-73); PLATELET COUNT 383 x10^3/uL (140-400); RED CELL DISTRIBUTION WIDTH 14.7 % (11.5-14.5); WHITE BLOOD COUNT 6.6 x10^3/uL (4.0-11.0)
[2021-01-23 16:33] LABS: CALCIUM 8.7 mg/dL (8.5-10.1); CREATININE 0.6 mg/dL (0.6-1.0); GFR 118.2; POTASSIUM 3.7 mmol/L (3.5-5.1)
[2021-01-23 16:44] LABS: ALBUMIN 3.1 g/dL (3.4-5.0); DIRECT BILIRUBIN 0.1 mg/dL (0.0-0.2); MAGNESIUM 1.8 mg/dL (1.8-2.4); TOTAL BILIRUBIN 0.3 mg/dL (0.2-1.0); TOTAL PROTEIN 6.3 g/dL (6.4-8.2)
--- NOTE | 2021-01-23 16:46 | RAD ---
Exam: CT of abdomen and pelvis without contrast INDICATION: Left lower back pain, status post cyst removal TECHNIQUE: Sequential axial images through the abdomen and pelvis obtained without IV contrast. Sagit mary and coronal reformatted images were reconstructed from the axial data and reviewed. Comparisons: 01/09/2021 FINDINGS: Heart size is normal. No pericardial effusion. Visualized lung bases are clear. No pleural effusion. Evaluation of solid organs is limited secondary to noncontrast technique. Liver, spleen, pancreas, gallbladder and adrenals are unremarkable. No perinephric inflammation or hydronephrosis. There is a nonobstructing 2 mm calculus at the upper p ole of the left kidney. No ureteral calculi are identified. Bladder is distended and appears thin-walled. Uterus is not enlarged. No abnormal adnexal mass. Large and small bowel are unremarkable. Appendix is normal. No free intra-abdominal air or fluid. No obstruction. Abdominal aorta has a normal course and caliber. Abdominal vasculature is patent. No enlarged intra-abdominal lymph nodes are identified. No suspicious osseous lesions or acute fractures. IMPRESSION: 1. Interval resolution of the left adnexal cystic lesion. Correlate with surgical history. 2. Bladder is markedly distended. Correlate for bladder outlet obstruction. 3. Nonobstructing left renal calculus. No ureteral calculus or evidence for obstructive uropathy. Exposure: One or more of the following in the visualized dose reduction techniques were utilized for this examination: 1. Automated exposure control 2. Adjustment of the MA and/or KV according to patient size 3. Use of iterative of reconstructive technique Electronically signed by: Ben Cabral MD (01/23/2021 4:44 PM) [facility]
[2021-01-23 17:03] LABS: PREG TEST PT QUAL NEGATIVE (NEG)
[2021-01-23 17:05] LABS: AMPHETAMINE/METHAMPHETAMINE NEG (NEG); BARBITURATES NEG (NEG); BENZODIAZEPINES NEG (NEG); CANNABINOIDS NEG (NEG); COCAINE NEG (NEG); METHADONE NEG (NEG); OPIATES NEG (NEG); PHENCYCLIDINE NEG (NEG)
[2021-01-23 17:09] LABS: CLARITY,URINE CLOUDY; COLOR,URINE COLORLESS
[2021-01-23 17:10] LABS: AMORPHOUS SEDIMENT,UR PRESENT /HPF; BACTERIA,URINE 0 /HPF (0-FEW); BILIRUBIN,URINE NEG (NEG); GLUCOSE,URINE NEG (NEG); NITRITE,URINE NEG (NEG); UROBILINOGEN,URINE 0.2 mg/dL (0.2 mg/dL)
[2021-01-23] MEDS ORDERED: METO10TA81 PO (17:34)
[2021-01-23] MEDS ORDERED: ONDA4TAB12 PO (17:34)
[2021-01-23 17:52] VITALS: BP 118/80
== END 2021-01-23 18:09 | disposition home or self-care (01) ==
LOC: ER 13:17
DX: E11.43 Type 2 diabetes mellitus with diabetic autonomic (poly)neuropathy (principal); K31.84 Gastroparesis; R11.2 Nausea with vomiting, unspecified; F17.200 Nicotine dependence, unspecified, uncomplicated; Z88.6 Allergy status to analgesic agent; Z88.8 Allergy status to other drugs, medicaments and biological substances
CPT/HCPCS: 36415; 74022; 74176; 80048; 80076; 80307; 81001; 81025; 82010; 82550; 82947; 83690; 83735; 84703; 85025; 87086; 93005; 96361; 96374; 96375; 99285; J2765; J3490; J7030

== ENCOUNTER 2021-01-26 17:20 | Emergency (ER) | payer SELFPAY ==
[~2021-01-26] VITALS: Ht 172.7 cm; Wt 57.6 kg
[2021-01-26] MEDS ORDERED: FAMOTIDINE 20 MG/2 ML VIAL IVP ONE (17:45)
[2021-01-26] MEDS ORDERED: ONDANSETRON PF 4 MG/2 ML VIAL. IVP ONE (17:45)
[2021-01-26] MEDS ORDERED: IV NORMAL SALINE 1,000ML 1,000 ML IV SCH (17:45)
[2021-01-26] MEDS ORDERED: KETOROLAC 30 MG/ML VIAL. IVP ONE (17:45)
[2021-01-26] MEDS ORDERED: INSULIN REGULAR 100 UNIT/ML 3ML VIAL. IV ONE (17:45)
--- NOTE | 2021-01-26 17:48 | PHYS DOC ---
Past History Past Medical History: Anxiety, Diabetes, Ovarian Cyst Additional Past Medical Histor: gastroporesis, drug abuse Past Medical History polysubstance abuse, Non-compliance Past Surgical History: Other Additional Past Surgical Histo: ovarian cysts removed Smoking: Less than 1pk/day Alcohol Use: None Drug Use: Amphetamine, Marijuana, Methamphetamine General Adult EDM: Chief Complaint: BLOOD SUGAR PROBLEM HPI: HPI: ".. I ve been vomiting again.. abd. and epigastric..it severe.. My sugars were only in 200's at home.." Patient is a 30 year old female who presents with above hx nausea, vomiting, elevated glucose and hx gastroparesis. Pt. known to ED staff for frequent visits for hyperglycemia, ketoacidosis, dehydration, cyclic vomiting, abdomen pain and polysubstance abuse. Pt. presents to day after episode of cyclic vomiting and abd. epigastric pain. Pt. denies any bad food, trauma, travel, specific ill contacts or immuno-suppression. Pt. localizes here pain in epigastric area. Patient currently working in [employer]. Review of Systems: Review of Systems: Constitutional: Denies fever or chills Eyes: Denies change in visual acuity HENT: Denies nasal congestion or sore throat Respiratory: Denies cough or shortness of breath Cardiovascular: Denies chest pain or edema GI: Complaints of abdominal pain, nausea, vomiting,.. Denies bloody stools or diarrhea : Denies dysuria Musculoskeletal: Denies back pain or joint pain Integument: Denies rash Neurologic: Denies headache, focal weakness or sensory changes Endocrine: Denies polyuria or polydipsia Lymphatic: Denies swollen glands Psychiatric: Denies depression or anxiety Family History: Family History: Non-contributory to presentation Current Medications: Current Meds: Current Medications Medications (Trade) Dose Ordered Sig/Chevy Start Time Stop Time Status Last Admin Dose Admin Famotidine (Pepcid Vial) 20 mg 1X ONCE 01/26/21 17:45 01/26/21 17:46 UNV Insulin Human Regular (HumuLIN R VIAL) 10 unit 1X ONCE 01/26/21 17:45 01/26/21 17:46 UNV Ketorolac Tromethamine (Toradol 30mg Vial) 30 mg 1X ONCE 01/26/21 17:45 01/26/21 17:46 UNV Ondansetron HCl (Zofran) 8 mg 1X ONCE 01/26/21 17:45 01/26/21 17:46 UNV Sodium Chloride 1,000 ml @ 1,000 mls/hr Q1H 01/26/21 17:45 01/26/21 18:44 UNV Allergies: Allergies: Allergies Coded Allergies Type Severity Reaction Last Updated Verified acetaminophen Allergy Intermediate HIVES 12/25/20 Yes adhesive tape Allergy Intermediate 12/25/20 Yes Physical Exam: PE: Constitutional: In acute distress, non-toxic appearance. [] HENT: Normocephalic, atraumatic, bilateral external ears normal, oropharynx dry, no oral exudates, nose normal. [] Eyes: PERRLA, EOMI, conjunctiva normal, no discharge. [] Neck: Normal range of motion, no tenderness, supple, no stridor. [] Cardiovascular:Tachycardsia Heart rate regular rhythm, no murmur [] Lungs & Thorax: Bilateral breath sounds equal at apex on auscultation [] Abdomen: Bowel sounds decreased, soft, epigastric tenderness, no masses, no pulsatile masses. Rebound to epigastric, Skin: Warm, dry, no erythema, no rash. Tattoos. Back: No tenderness, no CVA tenderness. [] Extremities: No tenderness, no cyanosis, no clubbing, ROM intact, no edema. [] No psoas. Neurologic: Alert and oriented X 3, moves all ext. on request, distal sensory., no focal deficits noted. [] Psychologic: Affect anxious, judgement normal, mood normal. [] Current Patient Data: Vital Signs: Vital Signs Date Time Temp Pulse Resp B/P (MAP) Pulse Ox O2 Delivery O2 Flow Rate FiO2 01/26/21 17:23 98.0 77 16 125/71 (89) 98 Room Air EKG: EKG: [] Radiology/Procedures: Radiology/Procedures: [][address] [address] IMAGING REPORT Signed PATIENT: CHALO RAYMUNDO ACCOUNT: [id number] : 1990 LOCATION: ER AGE: 30 SEX: F EXAM STATUS: REG ER ORD. PHYSICIAN: YELENA HENRY MD REASON: pain PROCEDURE: ACUTE ABDOMEN SERIES Three-view acute abdominal series. HISTORY: Pain 3 views were taken for an acute abdominal series. Lungs are free of infiltrates. Heart is normal in size. There is no effusion. There is no free air on the upright view of the abdomen or abnormal air-fluid levels. There is moderate stool in the colon. There is no bowel obstruction. There are no abnormal calcifications. Phleboliths in the pelvis appear unchanged. IMPRESSION: 1. No acute chest disease. 2. Increased stool in the colon. 3. No bowel obstruction or other acute finding. Electronically signed by: Fabián Isabel MD (01/26/2021 6:24 PM) [id number] DICTATED AND SIGNED BY: FABIÁN ISABEL MD DATE: 01/26/211820 CC: YELENA HENRY MD; PCP,NO ~MTH0 0 Heart Score: C/O Chest Pain: N/A HEART Score for Chest Pain: HEART Score for Chest Pain Response (Comments) Value History Slighlty/Non-Suspicious 0 ECG Normal 0 Age < 45 0 Risk Factors 1 or 2 Risk Factors 1 Troponin < Normal Limit 0 Total 1 Risk Factors: Risk Factors: DM, Current or recent (<one month) smoker, HTN, HLP, family history of CAD, obesity. Risk Scores: Score 0 - 3: 2.5% MACE over next 6 weeks - Discharge Home Score 4 - 6: 20.3% MACE over next 6 weeks - Admit for Clinical Observation Score 7 - 10: 72.7% MACE over next 6 weeks - Early Invasive Strategies Course & Med Decision Making: Course & Med Decision Making Pertinent Labs and Imaging studies reviewed. (See chart for details) Clear fluid diet.x 3 days. No solids or milk products. Push fluids like grape juice, apple juice, Jell-O, 7-Up etc. Pt take Pepcid 20 mg twice a day. Take Zofran 8 mg with 4 times a day for active nausea vomiting. Patient advised narcotic refills must be done through her primary care. Impression: 1. DM glucose 200's to 189 to 161. 2. Gastroparesis 3. Dehydration 4. Milld elevation Plate 421, Alt 96, Alk phos 122. 5. Constipation [] Dragon Disclaimer: Dragon Disclaimer: This electronic medical record was generated, in whole or in part, using a voice recognition dictation system. Departure Departure: Referrals: PCP,NO (PCP) Scripts Ondansetron Hcl (ZOFRAN) 4 Mg Tablet 8 MG PO QIDPRN PRN for NAUSEA/VOMITING, #30 TAB Prov: YELENA HENRY MD 01/26/21 Annelise Disclaimer This chart was dictated in whole or in part using Voice Recognition software in a busy, high-work load, and often noisy Emergency Department environment. It may contain unintended and wholly unrecognized errors or omissions. YELENA HENRY MD Jan 26, 2021 17:48
--- NOTE | 2021-01-26 17:57 | EKG ---
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
[2021-01-26 18:00] LABS: BASO # 0.1 x10^3/uL (0.0-0.2); BASO % 1 % (0-3); EOS # 0.2 x10^3/uL (0.0-0.7); EOS % 3 % (0-3); HEMATOCRIT 40.4 % (36.0-47.0); HEMOGLOBIN 13.3 g/dL (12.0-15.5); LYMPH % 31 % (24-48); MEAN CORPUSCULAR HEMOGLOBIN 29 pg (25-35); MEAN CORPUSCULAR HGB CONC 33 g/dL (31-37); MEAN CORPUSCULAR VOLUME 89 fL (79-100); MONO # 0.5 x10^3/uL (0.0-1.1); MONO % 7 % (0-9); NEUT # 3.7 x10^3uL (1.8-7.7); NEUT % 58 % (31-73); PLATELET COUNT 421 x10^3/uL (140-400); RED BLOOD COUNT 4.55 x10^6/uL (3.50-5.40); RED CELL DISTRIBUTION WIDTH 15.4 % (11.5-14.5); WHITE BLOOD COUNT 6.5 x10^3/uL (4.0-11.0)
[2021-01-26 18:08] LABS: CALCIUM 9.2 mg/dL (8.5-10.1); CREATININE 0.7 mg/dL (0.6-1.0); GFR 98.9; POTASSIUM 3.8 mmol/L (3.5-5.1)
[2021-01-26 18:15] LABS: DIRECT BILIRUBIN 0.1 mg/dL (0.0-0.2); TOTAL BILIRUBIN 0.4 mg/dL (0.2-1.0)
--- NOTE | 2021-01-26 18:26 | RAD ---
Three-view acute abdominal series. HISTORY: Pain 3 views were taken for an acute abdominal series. Lungs are free of infiltrates. Heart is normal in s ize. There is no effusion. There is no free air on the upright view of the abdomen or abnormal air-fl uid levels. There is moderate stool in the colon. There is no bowel obstruction. There are no abnorma l calcifications. Phleboliths in the pelvis appear unchanged. IMPRESSION: 1. No acute chest disease. 2. Increased stool in the colon. 3. No bowel obstruction or other acute finding. Electronically signed by: Fabián Gupta MD (01/26/2021 6:24 PM) [id number]
[2021-01-26] MEDS ORDERED: IV RINGERS SOLUTION,LACTATED 1,000 ML IV ONE (18:30)
[2021-01-26] MEDS ORDERED: MAGNESIUM HYDROXIDE 2,400 MG/30 ML ORAL.SUSP. PO ONE (20:00)
[2021-01-26 20:28] LABS: BACTERIA,URINE FEW /HPF (0-FEW); BILIRUBIN,URINE NEG (NEG); CLARITY,URINE TURBID; COLOR,URINE AMBER; GLUCOSE,URINE >=1000 mg/dL (NEG); NITRITE,URINE NEG (NEG)
[2021-01-26 20:29] LABS: SQUAMOUS EPITHELIAL CELL,UR FEW /LPF
[2021-01-26 20:30] LABS: BARBITURATES NEG (NEG); BENZODIAZEPINES NEG (NEG); CANNABINOIDS NEG (NEG); COCAINE NEG (NEG); METHADONE NEG (NEG); OPIATES NEG (NEG); PHENCYCLIDINE NEG (NEG)
[2021-01-26 20:31] LABS: AMPHETAMINE/METHAMPHETAMINE NEG (NEG)
[2021-01-26 20:35] VITALS: BP 122/68
[2021-01-26] MEDS ORDERED: ONDA4TAB7 PO (20:39)
== END 2021-01-26 20:43 | disposition home or self-care (01) ==
LOC: ER 17:20
DX: E11.65 Type 2 diabetes mellitus with hyperglycemia (principal); K31.84 Gastroparesis; E86.0 Dehydration; K59.00 Constipation, unspecified; R79.89 Other specified abnormal findings of blood chemistry; F41.9 Anxiety disorder, unspecified; F17.200 Nicotine dependence, unspecified, uncomplicated; F15.10 Other stimulant abuse, uncomplicated; F12.10 Cannabis abuse, uncomplicated; Z88.6 Allergy status to analgesic agent; Z88.8 Allergy status to other drugs, medicaments and biological substances
CPT/HCPCS: 36415; 74022; 80048; 80076; 80307; 81001; 81025; 82150; 82550; 82947; 83690; 84484; 85025; 85610; 85730; 93005; 96361; 96374; 96375; 99285; J1885; J2405; J3490; J7030; J7120

== ENCOUNTER 2021-02-23 15:54 | Emergency (ER) | payer SELFPAY ==
[~2021-02-23] VITALS: Ht 172.7 cm; Wt 57.6 kg
[2021-02-23 16:50] LABS: CALCIUM 9.6 mg/dL (8.5-10.1); CREATININE 0.7 mg/dL (0.6-1.0); GFR 98.9; POTASSIUM 3.5 mmol/L (3.5-5.1)
[2021-02-23 16:57] LABS: ALBUMIN 4.1 g/dL (3.4-5.0); ALBUMIN/GLOBULIN RATIO 1.1 (1.0-1.7); BASO # 0.1 x10^3/uL (0.0-0.2); BASO % 1 % (0-3); EOS # 0.1 x10^3/uL (0.0-0.7); EOS % 2 % (0-3); HEMATOCRIT 41.8 % (36.0-47.0); LYMPH % 25 % (24-48); MEAN CORPUSCULAR HEMOGLOBIN 30 pg (25-35); MEAN CORPUSCULAR HGB CONC 34 g/dL (31-37); MEAN CORPUSCULAR VOLUME 89 fL (79-100); MONO # 0.5 x10^3/uL (0.0-1.1); MONO % 6 % (0-9); NEUT # 5.1 x10^3uL (1.8-7.7); NEUT % 66 % (31-73); PLATELET COUNT 328 x10^3/uL (140-400); RED BLOOD COUNT 4.67 x10^6/uL (3.50-5.40); RED CELL DISTRIBUTION WIDTH 15.2 % (11.5-14.5); TOTAL BILIRUBIN 0.5 mg/dL (0.2-1.0); TOTAL PROTEIN 7.7 g/dL (6.4-8.2); WHITE BLOOD COUNT 7.8 x10^3/uL (4.0-11.0)
[2021-02-23] MEDS ORDERED: HALOPERIDOL LACT 5 MG/ML VIAL. IVP ONE (17:00)
[2021-02-23] MEDS ORDERED: METOCLOPRAMIDE HCL 10 MG/2 ML VIAL. IVP ONE (17:00)
--- NOTE | 2021-02-23 17:13 | PHYS DOC ---
Past History Past Medical History: Anxiety, Diabetes, Ovarian Cyst Additional Past Medical Histor: gastroporesis, drug abuse (PARTHA MURPHY MD) Past Surgical History: Other Additional Past Surgical Histo: ovarian cysts removed (PARTHA MURPHY MD) Smoking: Less than 1pk/day Alcohol Use: None Drug Use: Amphetamine, Marijuana, Methamphetamine (PARTHA MURPHY MD) Adult General Chief Complaint Chief Complaint: BLOOD SUGAR PROBLEM HPI HPI Patient is a 30-year-old female with a past medical history of diabetes, gastroparesis, drug abuse well-known to this emergency room who presents to the emergency room with diffuse abdominal pain and vomiting that started at 1 AM this morning. Patient states that her glucoses have been normal and that she gave herself insulin right before coming to the hospital. She did have a single glucose that read high right before coming which is why she gave herself insulin. She has not eaten anything all day. She states she is unable to keep anything down. She has not taken anything for symptoms at home. She states that this pain feels worse than her gastroparesis. Pain is crampy and sharp in nature. (PARTHA MURPHY MD) Review of Systems Review of Systems Complete ROS is negative unless otherwise documented in HPI (PARTHA MURPHY MD) Current Medications Current Medications Current Medications Medications (Trade) Dose Ordered Sig/Chevy Start Time Stop Time Status Last Admin Dose Admin Haloperidol Lactate (Haldol) 5 mg 1X ONCE 02/23/21 17:00 02/23/21 17:01 DC 02/23/21 16:55 5 MG Metoclopramide HCl (Reglan Vial) 10 mg 1X ONCE 02/23/21 17:00 02/23/21 17:01 DC 02/23/21 16:55 10 MG (PARTHA MURPHY MD) Allergies Allergies Allergies Coded Allergies Type Severity Reaction Last Updated Verified acetaminophen Allergy Intermediate HIVES 12/25/20 Yes adhesive tape Allergy Intermediate 12/25/20 Yes (PARTHA MURPHY MD) Physical Exam Physical Exam General: Awake, alert, moderate distress HEENT: Atraumatic, EOMI, PERRL, airway patent, moist oral mucosa Neck: Supple, trachea midline Respiratory: CTA bilaterally, normal effort, no wheezing/crackles CV: RRR, no murmur, cap refill <2 GI: Soft, nondistended, diffuse tenderness, no rebound, no guarding, no masses MSK: No obvious deformities Skin: Warm, dry, intact Neuro: A&O x3, speech NL, sensory and motor grossly intact, no focal deficits Psych: Normal affect, normal mood, not suicidal or homicidal (PARTHA MURPHY MD) Current Patient Data Vital Signs Vital Signs Date Time Temp Pulse Resp B/P (MAP) Pulse Ox O2 Delivery O2 Flow Rate FiO2 02/23/21 16:17 98.3 88 18 151/88 (109) 98 Room Air Lab Results Laboratory Tests Test 02/23/21 16:13 02/23/21 16:15 Glucose (Fingerstick) 127 mg/dL (70-99) H White Blood Count 7.8 x10^3/uL (4.0-11.0) Red Blood Count 4.67 x10^6/uL (3.50-5.40) Hemoglobin 14.0 g/dL (12.0-15.5) Hematocrit 41.8 % (36.0-47.0) Mean Corpuscular Volume 89 fL (79-100) Mean Corpuscular Hemoglobin 30 pg (25-35) Mean Corpuscular Hemoglobin Concent 34 g/dL (31-37) Red Cell Distribution Width 15.2 % (11.5-14.5) H Platelet Count 328 x10^3/uL (140-400) Neutrophils (%) (Auto) 66 % (31-73) Lymphocytes (%) (Auto) 25 % (24-48) Monocytes (%) (Auto) 6 % (0-9) Eosinophils (%) (Auto) 2 % (0-3) Basophils (%) (Auto) 1 % (0-3) Neutrophils # (Auto) 5.1 x10^3uL (1.8-7.7) Lymphocytes # (Auto) 2.0 x10^3/uL (1.0-4.8) Monocytes # (Auto) 0.5 x10^3/uL (0.0-1.1) Eosinophils # (Auto) 0.1 x10^3/uL (0.0-0.7) Basophils # (Auto) 0.1 x10^3/uL (0.0-0.2) Sodium Level 141 mmol/L (136-145) Potassium Level 3.5 mmol/L (3.5-5.1) Chloride Level 103 mmol/L (98-107) Carbon Dioxide Level 27 mmol/L (21-32) Anion Gap 11 (6-14) Blood Urea Nitrogen 22 mg/dL (7-20) H Creatinine 0.7 mg/dL (0.6-1.0) Estimated GFR (Cockcroft-Gault) 98.9 BUN/Creatinine Ratio 31 (6-20) H Glucose Level 119 mg/dL (70-99) H Calcium Level 9.6 mg/dL (8.5-10.1) Total Bilirubin 0.5 mg/dL (0.2-1.0) Aspartate Amino Transferase (AST) 20 U/L (15-37) Alanine Aminotransferase (ALT) 30 U/L (14-59) Alkaline Phosphatase 69 U/L (46-116) Total Protein 7.7 g/dL (6.4-8.2) Albumin 4.1 g/dL (3.4-5.0) Albumin/Globulin Ratio 1.1 (1.0-1.7) (PARTHA MURPHY MD) EKG EKG [] (PARTHA MURPHY MD) Radiology/Procedures Radiology/Procedures [] (PARTHA MURPHY MD) Radiology/Procedures Acute Abdominal Series: Technique: PA view of the chest and supine and upright views of the abdomen were obtained. History: Pain. Comparison: None. Findings: There is air and stool scattered the colon. There is a paucity small bowel gas. Reticular opacities of lungs is likely chronic pulmonary fibrosis. The pleural margins are clear. There is no free air. Impression: Constipation. Electronically signed by: Compa Meier III, MD (02/23/2021 5:45 PM) [facility] (TANIKA CAMARENA MD) Heart Score C/O Chest Pain: N/A Risk Factors: Risk Factors: DM, Current or recent (<one month) smoker, HTN, HLP, family history of CAD, obesity. Risk Scores: Risk Factors: DM, Current or recent (<one month) smoker, HTN, HLP, family history of CAD, obesity. (PARTHA MURPHY MD) Course & Med Decision Making Course & Med Decision Making Pertinent Labs and Imaging studies reviewed. (See chart for details) Patient is a 30-year-old female who presents to the emergency room with diffuse abdominal pain and vomiting. Patient has presented with similar symptoms in the past. Vitals are normal at this time. Glucose is 119 upon arrival. Patient will be given Haldol and Reglan. She is requesting narcotic pain medicine. CBC, CMP, UA will be ordered. Acute abdominal series will be done to rule out any intra-abdominal air. Patient does not have any signs of peritonitis, rebound, guarding. She does not have any focal tenderness that would suggest some kind of surgical pathology. Patient is an everyday marijuana smoker and does have a history of gastroparesis which would be more consistent with the mechelle prather's presentation. 1755: patient sleeping comfortably with normal vitals after haldol and reglan. Lab work is normal. Awaiting UA. No free air on acute abdominal series. Patient discussed with Dr Camarena who will assume care. (PARTHA MURPHY MD) Course & Med Decision Making Patient care assumed at checkout. Laboratory analysis not concerning. Urinalysis with proteinemia. Imaging with constipation. Patient alert and oriented no acute distress. Vital signs normal. Discussed all findings with patient and advised calling primary care physician first thing in the morning to update on ED visit and set up a follow-up. Gave strict return precautions to the ED. Patient grateful, verbalized understanding and agreed with plan of discharge. (TANIKA CAMARENA MD) Dragon Disclaimer Dragon Disclaimer This electronic medical record was generated, in whole or in part, using a voice recognition dictation system. (PARTHA MURPHY MD) Departure Departure: Impression: Primary Impression: Abdominal pain Additional Impressions: Intractable nausea and vomiting Proteinuria Disposition: 01 DC HOME SELF CARE/HOMELESS Condition: GOOD Referrals: PCP,NO (PCP) PERNELL BECKER MD Patient Instructions: Nausea and Vomiting, [id number], Proteinuria Problem Qualifiers PARTHA MURPHY MD Feb 23, 2021 17:13 TANIKA CAMARENA MD Feb 23, 2021 19:20
[2021-02-23] MEDS ORDERED: IV NORMAL SALINE 1,000ML 1,000 ML IV ONE (17:15)
--- NOTE | 2021-02-23 17:47 | RAD ---
Acute Abdominal Series: Technique: PA view of the chest and supine and upright views of the abdomen were obtained. History: Pain. Comparison: None. Findings: There is air and stool scattered the colon. There is a paucity small bowel gas. Reticular opacities o f lungs is likely chronic pulmonary fibrosis. The pleural margins are clear. There is no free air. Impression: Constipation. Electronically signed by: Compa Meier III, MD (02/23/2021 5:45 PM) [facility]
[2021-02-23 19:01] VITALS: BP 132/76
[2021-02-23 19:11] LABS: BILIRUBIN,URINE NEG (NEG); CLARITY,URINE CLOUDY; COLOR,URINE YELLOW; GLUCOSE,URINE NEG (NEG); NITRITE,URINE NEG (NEG); UROBILINOGEN,URINE 0.2 mg/dL (0.2 mg/dL)
[2021-02-23 19:12] LABS: AMORPHOUS SEDIMENT,UR PRESENT /HPF; BACTERIA,URINE FEW /HPF (0-FEW); SQUAMOUS EPITHELIAL CELL,UR FEW /LPF
== END 2021-02-23 19:30 | disposition home or self-care (01) ==
LOC: ER 15:54
DX: R10.84 Generalized abdominal pain (principal); R11.2 Nausea with vomiting, unspecified; R80.9 Proteinuria, unspecified; F41.9 Anxiety disorder, unspecified; E11.9 Type 2 diabetes mellitus without complications; F17.200 Nicotine dependence, unspecified, uncomplicated; Z88.6 Allergy status to analgesic agent; Z88.8 Allergy status to other drugs, medicaments and biological substances
CPT/HCPCS: 36415; 74022; 80053; 81001; 81025; 82947; 85025; 87086; 96361; 96374; 96375; 99284; J1630; J2765; J7030

== ENCOUNTER 2021-03-06 10:37 | Inpatient (IN) | payer OTHER ==
[~2021-03-06] VITALS: Ht 172.7 cm; Wt 55.2 kg
[2021-03-06] MEDS ORDERED: ONDANSETRON PF 4 MG/2 ML VIAL. IVP ONE (10:45)
[2021-03-06] MEDS ORDERED: IV NORMAL SALINE 1,000ML 1,000 ML IV ONE ×2 (10:45→12:00)
--- NOTE | 2021-03-06 11:05 | PHYS DOC ---
Past History Past Medical History: Anxiety, Diabetes, Ovarian Cyst Additional Past Medical Histor: gastroporesis, drug abuse Past Surgical History: Other Additional Past Surgical Histo: ovarian cysts removed Smoking: Less than 1pk/day Alcohol Use: None Drug Use: Amphetamine, Marijuana, Methamphetamine General Adult EDM: Chief Complaint: NAUSEA/VOMITING/DIARRHEA HPI: HPI: Patient is a 30-year-old female well-known to the ER type I diabetic arrived via EMS for nausea and vomiting for 2 days. Patient states she does not have any medications at home for nausea vomiting. Also complaining of low abdominal pain. Patient states her blood sugars have been running high over the past couple of days and has been taking her insulin. Took insulin just prior to EMS arrival. Patient denies any diarrhea or constipation. Denies any dysuria hematuria. Patient was admitted to [facility] about 2 weeks ago. Is unable to give other details. Patient states she gets her insulin from the [facility] does not have a primary care provider anymore. Continues to use marijuana daily. Review of Systems: Review of Systems: All other systems within normal limits except for as noted in the HPI Current Medications: Current Meds: Current Medications Medications (Trade) Dose Ordered Sig/Chevy Start Time Stop Time Status Last Admin Dose Admin Fentanyl Citrate (Fentanyl 2ml Vial) 75 mcg 1X ONCE 03/06/21 10:45 03/06/21 10:53 DC Ondansetron HCl (Zofran) 4 mg 1X ONCE 03/06/21 10:45 03/06/21 10:53 DC Sodium Chloride 1,000 ml @ 1,000 mls/hr 1X ONCE 03/06/21 10:45 03/06/21 11:44 Allergies: Allergies: Allergies Coded Allergies Type Severity Reaction Last Updated Verified acetaminophen Allergy Intermediate HIVES 12/25/20 Yes adhesive tape Allergy Intermediate 12/25/20 Yes Physical Exam: PE: Constitutional: Well developed, well nourished, no acute distress, non-toxic appearance. [] HENT: Normocephalic, atraumatic, bilateral external ears normal, nose normal. [] Eyes: PERRLA, conjunctiva normal, no discharge. [] Neck: No rigidity, supple, no stridor. [] Cardiovascular: Tachycardic, regular rhythm, brisk cap refill [] Lungs & Thorax: Non labored symmetric respirations, no tachypnea or respiratory distress [] Abdomen: Soft, nondistended. Skin: Warm, dry, no erythema, no rash. [] Back: Unremarkable Extremities: No deformities, range of motion grossly intact, no lower extremity edema [] Neurologic: Alert and oriented X 3, no focal deficits noted. [] Psychologic: Affect normal, judgement normal, mood normal. [] Current Patient Data: Labs: Laboratory Tests Test 03/06/21 10:41 Glucose (Fingerstick) 412 mg/dL (70-99) H Vital Signs: Vital Signs Date Time Temp Pulse Resp B/P (MAP) Pulse Ox O2 Delivery O2 Flow Rate FiO2 03/06/21 10:40 118 22 145/102 (116) 100 Room Air EKG: EKG: Sinus tachycardia, heart rate [address] elevation or depression, no ectopy. Borderline peaked T waves in V3 and V4. Right axis deviation [] Radiology/Procedures: Radiology/Procedures: [] Heart Score: C/O Chest Pain: No Risk Factors: Risk Factors: DM, Current or recent (<one month) smoker, HTN, HLP, family history of CAD, obesity. Risk Scores: Score 0 - 3: 2.5% MACE over next 6 weeks - Discharge Home Score 4 - 6: 20.3% MACE over next 6 weeks - Admit for Clinical Observation Score 7 - 10: 72.7% MACE over next 6 weeks - Early Invasive Strategies Course & Med Decision Making: Course & Med Decision Making Pertinent Labs and Imaging studies reviewed. (See chart for details) Benign abdominal exam with history of chronic abdominal pain. Given Haldol and diphenhydramine, afterwards vomiting ceased and patient is resting comfortably. Will admit for DKA to Dr. Gonzalez in the ICU. Dragon Disclaimer: Dragon Disclaimer: This electronic medical record was generated, in whole or in part, using a voice recognition dictation system. Departure Departure: Impression: Primary Impression: Diabetic ketoacidosis associated with type 1 diabetes mellitus Disposition: ADMITTED INPATIENT Admitting Physician: Timothy Gonzalez Condition: CRITICAL Referrals: PCP,NO (PCP) KAREN GAMBLE MD Mar 06, 2021 11:05
[2021-03-06] MEDS ORDERED: diphenhydrAMINE 50 MG/ML VIAL IVP ONE (11:15)
[2021-03-06] MEDS ORDERED: HALOPERIDOL LACT 5 MG/ML VIAL. IVP ONE (11:15)
[2021-03-06 11:30] LABS: BASO # 0.1 x10^3/uL (0.0-0.2); BASO % 1 % (0-3); EOS % 0 % (0-3); HEMOGLOBIN 13.4 g/dL (12.0-15.5); LYMPH # 0.9 x10^3/uL (1.0-4.8); LYMPH % 9 % (24-48); MEAN CORPUSCULAR HEMOGLOBIN 30 pg (25-35); MEAN CORPUSCULAR HGB CONC 34 g/dL (31-37); MEAN CORPUSCULAR VOLUME 91 fL (79-100); MONO # 0.6 x10^3/uL (0.0-1.1); MONO % 6 % (0-9); NEUT # 7.9 x10^3uL (1.8-7.7); NEUT % 83 % (31-73); PLATELET COUNT 281 x10^3/uL (140-400); RED BLOOD COUNT 4.41 x10^6/uL (3.50-5.40); WHITE BLOOD COUNT 9.4 x10^3/uL (4.0-11.0)
[2021-03-06 11:39] LABS: CALCIUM 9.3 mg/dL (8.5-10.1); CREATININE 1.3 mg/dL (0.6-1.0); GFR 48.4; POTASSIUM 4.8 mmol/L (3.5-5.1)
[2021-03-06 11:45] LABS: ALBUMIN 3.7 g/dL (3.4-5.0); ALBUMIN/GLOBULIN RATIO 0.9 (1.0-1.7); MAGNESIUM 2.1 mg/dL (1.8-2.4); PHOSPHORUS 5.3 mg/dL (2.6-4.7); TOTAL PROTEIN 7.8 g/dL (6.4-8.2)
[2021-03-06] MEDS ORDERED: MAGNESIUM SULFATE 2GM 50 ML IV PRN (12:30)
[2021-03-06] MEDS ORDERED: ONDANSETRON PF 4 MG/2 ML VIAL. IVP PRN (12:30)
[2021-03-06] MEDS ORDERED: POTASSIUM CHLORIDE 10MEQ 100 ML IV PRN ×4 (12:30)
[2021-03-06] MEDS ORDERED: INSULIN REGULAR VIAL 100 UNIT in IV NORMAL SALINE 100ML 100 ML IV PRN (12:30)
[2021-03-06] MEDS ORDERED: IV NORMAL SALINE 1,000ML 1,000 ML IV SCH ×3 (12:30)
[2021-03-06] MEDS ORDERED: IV DEXTROSE 5 %-0.45 % NACL 1,000 ML IV SCH (12:30)
[2021-03-06 13:55] VITALS: BP 132/77
[2021-03-06 17:00] VITALS: BP 107/65
[2021-03-06 17:07] LABS: BARBITURATES NEG (NEG); BENZODIAZEPINES NEG (NEG); CANNABINOIDS NEG (NEG); COCAINE NEG (NEG); METHADONE NEG (NEG); OPIATES NEG (NEG); PHENCYCLIDINE NEG (NEG)
[2021-03-06 17:09] LABS: AMPHETAMINE/METHAMPHETAMINE POS (NEG)
[2021-03-06 17:12] LABS: SQUAMOUS EPITHELIAL CELL,UR FEW /LPF
[2021-03-06 17:13] LABS: WBC,URINE >40 /HPF (0-4)
[2021-03-06] MEDS: MORPHINE SULFATE 2 MG/ML DISP.SYRIN. IVP PRN ×2 (17:14→20:22)
[2021-03-06 17:16] LABS: BACTERIA,URINE 0 /HPF (0-FEW); COLOR,URINE YELLOW
[2021-03-06 17:17] LABS: BILIRUBIN,URINE NEG (NEG); CLARITY,URINE CLOUDY; GLUCOSE,URINE 500 mg/dL (NEG); NITRITE,URINE NEG (NEG); UROBILINOGEN,URINE 0.2 mg/dL (0.2 mg/dL)
[2021-03-06 18:00] VITALS: BP 125/81
[2021-03-06 19:15] LABS: CREATININE 1.1 mg/dL (0.6-1.0); GFR 58.7
[2021-03-06 19:31] VITALS: BP 106/67
[2021-03-06] MEDS: POTASSIUM CL 20MEQ D5-0.45NACL 1,000 ML IV SCH (19:33)
[2021-03-06 20:21] VITALS: BP 108/65
--- NOTE | 2021-03-06 21:59 | EKG ---
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
[2021-03-06 22:17] VITALS: BP 115/79
[2021-03-06] MEDS ORDERED: DEXTROSE 50% 25 GM / 50ML DISP.SYRIN. IV ONE ×2 (23:18→23:30)
[2021-03-07] MEDS: POTASSIUM CL 20MEQ D5-0.45NACL 1,000 ML IV SCH ×2 (01:33→06:56)
[2021-03-07 02:34] LABS: CALCIUM 7.9 mg/dL (8.5-10.1); CREATININE 0.8 mg/dL (0.6-1.0); GFR 84.8; POTASSIUM 3.9 mmol/L (3.5-5.1)
[2021-03-07] MEDS: MORPHINE SULFATE 2 MG/ML DISP.SYRIN. IVP PRN ×2 (03:19→08:40)
[2021-03-07 06:09] VITALS: BP 98/66
[2021-03-07 06:43] LABS: BASO % 0 % (0-3); EOS # 0.1 x10^3/uL (0.0-0.7); EOS % 1 % (0-3); HEMATOCRIT 28.7 % (36.0-47.0); HEMOGLOBIN 9.7 g/dL (12.0-15.5); LYMPH # 1.5 x10^3/uL (1.0-4.8); LYMPH % 16 % (24-48); MEAN CORPUSCULAR HEMOGLOBIN 30 pg (25-35); MEAN CORPUSCULAR HGB CONC 34 g/dL (31-37); MEAN CORPUSCULAR VOLUME 90 fL (79-100); MONO # 1.3 x10^3/uL (0.0-1.1); MONO % 14 % (0-9); NEUT # 6.5 x10^3uL (1.8-7.7); NEUT % 69 % (31-73); PLATELET COUNT 229 x10^3/uL (140-400); RED BLOOD COUNT 3.21 x10^6/uL (3.50-5.40); RED CELL DISTRIBUTION WIDTH 13.8 % (11.5-14.5); WHITE BLOOD COUNT 9.4 x10^3/uL (4.0-11.0)
[2021-03-07 06:57] LABS: ALBUMIN 2.3 g/dL (3.4-5.0); ALBUMIN/GLOBULIN RATIO 0.7 (1.0-1.7); CALCIUM 7.7 mg/dL (8.5-10.1); CREATININE 0.7 mg/dL (0.6-1.0); GFR 98.9; POTASSIUM 4.1 mmol/L (3.5-5.1); TOTAL BILIRUBIN 0.4 mg/dL (0.2-1.0); TOTAL PROTEIN 5.5 g/dL (6.4-8.2)
[2021-03-07 08:00] VITALS: BP 113/73
[2021-03-07 09:00] VITALS: BP 126/81
[2021-03-07] MEDS ORDERED: METOCLOPRAMIDE 10 MG TABLET PO SCH (09:00)
[2021-03-07 10:00] VITALS: BP 116/79
--- NOTE | 2021-03-07 12:15 | HP ---
ADMIT DATE: ADMISSION HISTORY AND PHYSICAL ATTENDING PHYSICIAN: Dr. Oreilly. CHIEF COMPLAINT: Nausea and vomiting, elevated blood sugars. HISTORY OF PRESENT ILLNESS: The patient is a 30-year-old female, type 1 diabetic, well known to me from multiple previous admissions. She was just hospitalized 2 weeks ago at [facility] with diabetic ketoacidosis. She has had a 1-day history of nausea and vomiting. Sugars were high. Her anion gap was 31. She once again has diabetic ketoacidosis. She states she has been compliant, although in the past she skipped doses and she has a definite underlying depression and other psychiatric issues. There is also history of substance abuse. In any event, she was admitted then with another episode of diabetic ketoacidosis. Significant for drug use including methamphetamine and marijuana. She is a smoker. She denies any significant alcohol use. PAST MEDICAL HISTORY: Significant for type 1 diabetes, polysubstance abuse and diabetic gastroparesis. She also has intractable abdominal pain that is functional in nature. ALLERGIES: SHE HAS ALLERGIES TO TYLENOL AND ADHESIVE TAPE, EXACT REACTION IS UNCLEAR. I SUSPECT A CONTACT DERMATITIS. SOCIAL HISTORY: As noted. FAMILY HISTORY: Noncontributory. REVIEW OF SYSTEMS: Significant for the GI symptoms. No hematemesis. No COVID exposure. All other systems reviewed and determined to be negative. PHYSICAL EXAMINATION: GENERAL: When I saw her, this is a pleasant young female. INITIAL VITAL SIGNS: Showed a blood pressure 98/66, pulse is 80 and regular. She is afebrile. Oxygen saturation 97% on room air. HEENT: Head is without trauma. Pupils are reactive. Sclerae nonicteric. Oropharynx clear. Mucous membranes dry. NECK: Supple, no bruits identified. LUNGS: Otherwise clear. CARDIOVASCULAR: Showed regular heart tones. No gallops. ABDOMEN: Soft, no guarding or rebound tenderness. Normoactive bowel sounds. EXTREMITIES: Show no signs of edema. NEUROLOGIC FINDINGS: Focally intact. Speech is fluent. PERTINENT LABORATORY STUDIES: On admission, her blood sugars were greater than 400. Electrolytes are normal. Potassium 4.5 mEq. The anion gap of 31. ASSESSMENT: 1. A 30-year-old female with noncompliance regarding her type 1 diabetes mellitus. 2. Diabetic ketoacidosis. 3. Mild dehydration. 4. Polysubstance abuse. 5. Underlying depression and anxiety. PLAN: 1. Admit to the inpatient unit. 2. Glucose stabilizer protocol. 3. IV hydration. 4. Advance diet as tolerated. DANIAL OREILLY MD DR: JEFF/regina JOB#: [id number] / [id number]
--- NOTE | 2021-03-07 13:13 | DS ---
DATE OF DISCHARGE: 03/07/2021 ATTENDING PHYSICIAN: Dr. Oreilly. FINAL DISCHARGE DIAGNOSES: 1. Diabetic ketoacidosis, resolved. 2. Dehydration, rehydrated. 3. Type 1 diabetes mellitus. 4. Noncompliance of meds. 5. Polysubstance abuse. 6. Diabetic gastroparesis. HISTORY AND PHYSICAL: The patient is a 30-year-old female well known to us, who has been noncompliant regarding her type 1 diabetes. She was hospitalized 2 weeks ago at [facility]. I do not have details of the different system. In any event, she presented to the ED with once again nausea, vomiting, elevated blood sugars. Evidence of substance abuse. Her sugars were over 400 with an anion gap of 31 in the ED. PHYSICAL EXAMINATION: Please see the dictated note. PERTINENT LABORATORY AND X-RAY STUDIES: Subsequent after admission, her hemoglobin this time was 13.4 grams in a hemoconcentrated state, white count 9400. Chemistries the next day showed sodium 134 mEq, potassium 4.1 mEq, creatinine 0.7 mg/dL, the bicarbonate was up to 22, and the anion gap came down to 8, sugars were in the mid 100s. Transaminases were normal. COURSE IN THE HOSPITAL: The patient was admitted to the ICU. She was started on glucose stabilizer protocol with hourly Accu-Cheks and insulin drip. She did well. Acidosis corrected. Diet was advanced. By the next day, her anion gap was down to 8. Her lungs were clear. Vital signs are stable, afebrile. She wanted to go home. I felt this is reasonable. Strong encouragement to follow up with her PCP as well as taking her Levemir at bedtime and 3 shots of regular insulin per sliding scale. Whether or not she will do this remains to be seen. She also takes Reglan for gastroparesis. Therefore, on the second hospital day, much improved, we discharge the patient home in stable condition with explicit instructions and followup care. DANIAL OREILLY MD DR: JEFF/regina JOB#: [id number] / [id number]
== END 2021-03-07 10:19 | disposition home or self-care (01) | DRG 637 ==
LOC: ER 10:37 → ICU 12:24
PROVIDERS: ADMIT Hospitalist; ATTEND Hospitalist
DX: E10.10 Type 1 diabetes mellitus with ketoacidosis without coma (principal); N17.0 Acute kidney failure with tubular necrosis; E10.43 Type 1 diabetes mellitus with diabetic autonomic (poly)neuropathy; E86.0 Dehydration; F12.90 Cannabis use, unspecified, uncomplicated; F15.90 Other stimulant use, unspecified, uncomplicated; F17.200 Nicotine dependence, unspecified, uncomplicated; F32.9 Major depressive disorder, single episode, unspecified; F41.9 Anxiety disorder, unspecified; K31.84 Gastroparesis; Z79.4 Long term (current) use of insulin; Z91.14 Patient's other noncompliance with medication regimen; Z91.19 Patient's noncompliance with other medical treatment and regimen; Z88.8 Allergy status to other drugs, medicaments and biological substances; Z91.048 Other nonmedicinal substance allergy status; Z79.899 Other long term (current) drug therapy; F19.10 Other psychoactive substance abuse, uncomplicated
CPT/HCPCS: 36415; 80048; 80053; 80307; 81001; 82803; 82947; 83605; 83690; 83735; 84100; 84484; 85025; 87086; 93005; 96361; 96374; 96375; G0480; J1200; J1630; J1815; J2270; J2405; 99285-25; J7030

== ENCOUNTER 2021-03-10 12:17 | Emergency (ER) | payer OTHER ==
[~2021-03-10] VITALS: Ht 172.7 cm; Wt 54.8 kg
[2021-03-10] MEDS ORDERED: IV NORMAL SALINE 1,000ML 1,000 ML IV ONE (12:30)
--- NOTE | 2021-03-10 12:44 | PHYS DOC ---
Past History Past Medical History: Anxiety, Diabetes, Ovarian Cyst Additional Past Medical Histor: gastroporesis, drug abuse Past Surgical History: Other Additional Past Surgical Histo: ovarian cysts removed Smoking: Less than 1pk/day Alcohol Use: None Drug Use: Amphetamine, Marijuana, Methamphetamine General Adult EDM: Chief Complaint: NAUSEA/VOMITING/DIARRHEA HPI: HPI: 30-year-old female presents via EMS with abdominal pain and elevated blood sugar. The patient was recently in this emergency room and admitted to this hospital for DKA. She tells me she has been taking her insulin but that her blood sugars been over 300 today. She has generalized abdominal pain and low back pain. She denies fever or chills. Review of Systems: Review of Systems: Constitutional: Denies fever or chills Eyes: Denies change in visual acuity HENT: Denies nasal congestion or sore throat Respiratory: Denies cough or shortness of breath Cardiovascular: Denies chest pain or edema GI: Generalized abdominal pain, nausea, vomiting. Denies bloody stools or diarrhea : Denies dysuria Musculoskeletal: Low back pain Integument: Denies rash Neurologic: Denies headache, focal weakness or sensory changes Endocrine: Denies polyuria or polydipsia Lymphatic: Denies swollen glands Psychiatric: Denies depression or anxiety Current Medications: Current Meds: Current Medications Medications (Trade) Dose Ordered Sig/Chevy Start Time Stop Time Status Last Admin Dose Admin Sodium Chloride 1,000 ml @ 1,000 mls/hr 1X ONCE 03/10/21 12:30 03/10/21 13:29 Allergies: Allergies: Allergies Coded Allergies Type Severity Reaction Last Updated Verified acetaminophen Allergy Intermediate HIVES 12/25/20 Yes adhesive tape Allergy Intermediate 12/25/20 Yes Physical Exam: PE: Constitutional: Well developed, well nourished, no acute distress, non-toxic appearance. [] HENT: Normocephalic, atraumatic, bilateral external ears normal, oropharynx moist, no oral exudates, nose normal. [] Eyes: PERRLA, EOMI, conjunctiva normal, no discharge. [] Neck: Normal range of motion, no tenderness, supple, no stridor. [] Cardiovascular:Heart rate regular rhythm, no murmur [] Lungs & Thorax: Bilateral breath sounds clear to auscultation [] Abdomen: Bowel sounds normal, soft, no tenderness, no masses, no pulsatile masses. [] Skin: Warm, dry, no erythema, no rash. [] Back: No tenderness, no CVA tenderness. [] Extremities: No tenderness, no cyanosis, no clubbing, ROM intact, no edema. [] Neurologic: Alert and oriented X 3, normal motor function, normal sensory function, no focal deficits noted. [] Psychologic: Affect normal, judgement normal, mood normal. [] EKG: EKG: [] Radiology/Procedures: Radiology/Procedures: [] Heart Score: C/O Chest Pain: No Risk Factors: Risk Factors: DM, Current or recent (<one month) smoker, HTN, HLP, family history of CAD, obesity. Risk Scores: Score 0 - 3: 2.5% MACE over next 6 weeks - Discharge Home Score 4 - 6: 20.3% MACE over next 6 weeks - Admit for Clinical Observation Score 7 - 10: 72.7% MACE over next 6 weeks - Early Invasive Strategies Course & Med Decision Making: Course & Med Decision Making Pertinent Labs and Imaging studies reviewed. (See chart for details) The patient's reported blood sugar by EMS was over 300. It was under 200 in the ER. I gave the patient a liter normal saline, Haldol, and Benadryl for her abdominal pain and nausea. She has had no further vomiting in the ER. I will discharge her with a prescription for Zofran. She is stable for discharge at this time. [] Annelise Disclaimer: Annelise Disclaimer: This electronic medical record was generated, in whole or in part, using a voice recognition dictation system. Departure Departure: Impression: Primary Impression: Nausea & vomiting Referrals: PCPBAY (PCP) Patient Instructions: Nausea and Vomiting, [id number] Scripts Ondansetron (ONDANSETRON ODT) 4 Mg Tab.rapdis 1 TAB PO PRN Q6-8HRS PRN for VOMITING, #16 TAB Prov: ROXY SU DO 03/10/21 ROXY SU DO Mar 10, 2021 12:44
[2021-03-10] MEDS ORDERED: HALOPERIDOL LACT 5 MG/ML VIAL. IVP ONE (12:45)
[2021-03-10] MEDS ORDERED: diphenhydrAMINE 50 MG/ML VIAL IVP ONE (12:45)
[2021-03-10] MEDS ORDERED: HALOPERIDOL LACT 5 MG/ML VIAL. ONE (12:46)
[2021-03-10] MEDS ORDERED: diphenhydrAMINE 50 MG/ML VIAL ONE (12:46)
[2021-03-10 12:58] LABS: BASO # 0.1 x10^3/uL (0.0-0.2); BASO % 1 % (0-3); EOS # 0.2 x10^3/uL (0.0-0.7); EOS % 2 % (0-3); HEMATOCRIT 38.1 % (36.0-47.0); HEMOGLOBIN 12.7 g/dL (12.0-15.5); LYMPH # 1.4 x10^3/uL (1.0-4.8); LYMPH % 19 % (24-48); MEAN CORPUSCULAR HEMOGLOBIN 30 pg (25-35); MEAN CORPUSCULAR HGB CONC 33 g/dL (31-37); MEAN CORPUSCULAR VOLUME 89 fL (79-100); MONO # 0.4 x10^3/uL (0.0-1.1); MONO % 5 % (0-9); NEUT # 5.3 x10^3uL (1.8-7.7); NEUT % 73 % (31-73); PLATELET COUNT 350 x10^3/uL (140-400); RED BLOOD COUNT 4.27 x10^6/uL (3.50-5.40); RED CELL DISTRIBUTION WIDTH 14.1 % (11.5-14.5); WHITE BLOOD COUNT 7.3 x10^3/uL (4.0-11.0)
[2021-03-10 13:50] LABS: CALCIUM 8.3 mg/dL (8.5-10.1); CREATININE 0.5 mg/dL (0.6-1.0); GFR 145.9; POTASSIUM 3.5 mmol/L (3.5-5.1)
[2021-03-10 13:57] LABS: ALBUMIN 2.7 g/dL (3.4-5.0); ALBUMIN/GLOBULIN RATIO 0.7 (1.0-1.7); TOTAL BILIRUBIN 0.2 mg/dL (0.2-1.0); TOTAL PROTEIN 6.5 g/dL (6.4-8.2)
[2021-03-10 14:50] VITALS: BP 133/86
[2021-03-10] MEDS ORDERED: ONDA4TAB12 PO (15:22)
== END 2021-03-10 15:29 | disposition home or self-care (01) ==
LOC: ER 12:17
DX: R11.2 Nausea with vomiting, unspecified (principal); R10.84 Generalized abdominal pain; M54.5 Low back pain; F41.9 Anxiety disorder, unspecified; E11.9 Type 2 diabetes mellitus without complications; F17.200 Nicotine dependence, unspecified, uncomplicated; Z88.6 Allergy status to analgesic agent; Z88.8 Allergy status to other drugs, medicaments and biological substances
CPT/HCPCS: 36415; 80053; 82947; 85025; 96361; 96374; 96375; 99285; J1200; J1630; J7030

== ENCOUNTER 2021-03-14 17:32 | Emergency (ER) | payer OTHER ==
[~2021-03-14] VITALS: Ht 172.7 cm; Wt 54.8 kg
[2021-03-14] MEDS ORDERED: ONDANSETRON PF 4 MG/2 ML VIAL. ONE (17:45)
[2021-03-14] MEDS ORDERED: ONDANSETRON PF 4 MG/2 ML VIAL. IVP ONE ×3 (18:00→18:45)
[2021-03-14] MEDS ORDERED: IV NORMAL SALINE 1,000ML 1,000 ML IV ONE (18:00)
[2021-03-14 18:05] LABS: BASO % 0 % (0-3); EOS # 0.2 x10^3/uL (0.0-0.7); EOS % 3 % (0-3); HEMOGLOBIN 13.5 g/dL (12.0-15.5); LYMPH # 2.3 x10^3/uL (1.0-4.8); LYMPH % 31 % (24-48); MEAN CORPUSCULAR HEMOGLOBIN 30 pg (25-35); MEAN CORPUSCULAR HGB CONC 34 g/dL (31-37); MEAN CORPUSCULAR VOLUME 89 fL (79-100); MONO # 0.5 x10^3/uL (0.0-1.1); MONO % 7 % (0-9); NEUT # 4.4 x10^3uL (1.8-7.7); NEUT % 58 % (31-73); PLATELET COUNT 458 x10^3/uL (140-400); RED BLOOD COUNT 4.51 x10^6/uL (3.50-5.40); RED CELL DISTRIBUTION WIDTH 13.6 % (11.5-14.5); WHITE BLOOD COUNT 7.5 x10^3/uL (4.0-11.0)
[2021-03-14 18:20] LABS: CALCIUM 9.1 mg/dL (8.5-10.1)
[2021-03-14 18:21] LABS: CREATININE 0.7 mg/dL (0.6-1.0); GFR 98.9; POTASSIUM 3.9 mmol/L (3.5-5.1)
--- NOTE | 2021-03-14 18:21 | PHYS DOC ---
Past History Past Medical History: Anxiety, Diabetes, Ovarian Cyst Additional Past Medical Histor: gastroporesis, drug abuse Past Surgical History: Other Additional Past Surgical Histo: ovarian cysts removed Smoking: Less than 1pk/day Alcohol Use: None Drug Use: Amphetamine, Marijuana, Methamphetamine Social History Narrative: 3 DAYS AGO General Adult EDM: Chief Complaint: HYPERGLYCEMIA HPI: HPI: 30-year-old female returns the emergency room with elevated blood sugar and vomiting. Patient has been seen several times for these complaints in this emergency room in the last couple weeks. She tells me that today she just st arted feeling nauseated and started vomiting. She then started shaking her blood sugars and they were over 300. She cannot seem to make the vomiting stopped. Patient is a regular marijuana user. She decided come the emergency room. She has generalized abdominal cramping. Denies any fever, chills, trauma. Review of Systems: Review of Systems: Constitutional: Denies fever or chills Eyes: Denies change in visual acuity HENT: Denies nasal congestion or sore throat Respiratory: Denies cough or shortness of breath Cardiovascular: Denies chest pain or edema GI: Generalized abdominal pain, nausea, vomiting. Denies bloody stools or diarrhea : Denies dysuria Musculoskeletal: Denies back pain or joint pain Integument: Denies rash Neurologic: Denies headache, focal weakness or sensory changes Endocrine: Denies polyuria or polydipsia Lymphatic: Denies swollen glands Psychiatric: Denies depression or anxiety Current Medications: Current Meds: Current Medications Medications (Trade) Dose Ordered Sig/Chevy Start Time Stop Time Status Last Admin Dose Admin Ondansetron HCl (Zofran) 4 mg 1X ONCE 03/14/21 18:00 03/14/21 18:01 UNV Sodium Chloride 1,000 ml @ 1,000 mls/hr 1X ONCE 03/14/21 18:00 03/14/21 18:59 03/14/21 17:51 1,000 MLS/HR Allergies: Allergies: Allergies Coded Allergies Type Severity Reaction Last Updated Verified acetaminophen Allergy Intermediate HIVES 12/25/20 Yes adhesive tape Allergy Intermediate 12/25/20 Yes Physical Exam: PE: Constitutional: Well developed, well nourished, mild acute distress, non-toxic appearance. [] HENT: Normocephalic, atraumatic, bilateral external ears normal, oropharynx moist, no oral exudates, nose normal. [] Eyes: PERRLA, EOMI, conjunctiva normal, no discharge. [] Neck: Normal range of motion, no tenderness, supple, no stridor. [] Cardiovascular: Heart rate regular rhythm, no murmur [] Lungs & Thorax: Bilateral breath sounds clear to auscultation [] Abdomen: Bowel sounds normal, soft, no tenderness, no masses, no pulsatile masses. [] Skin: Warm, dry, no erythema, no rash. [] Back: No tenderness, no CVA tenderness. [] Extremities: No tenderness, no cyanosis, no clubbing, ROM intact, no edema. [] Neurologic: Alert and oriented X 3, normal motor function, normal sensory function, no focal deficits noted. [] Psychologic: Affect normal, judgement normal, mood normal. [] Current Patient Data: Labs: Laboratory Tests Test 03/14/21 17:40 03/14/21 17:47 White Blood Count 7.5 x10^3/uL (4.0-11.0) Red Blood Count 4.51 x10^6/uL (3.50-5.40) Hemoglobin 13.5 g/dL (12.0-15.5) Hematocrit 40.0 % (36.0-47.0) Mean Corpuscular Volume 89 fL (79-100) Mean Corpuscular Hemoglobin 30 pg (25-35) Mean Corpuscular Hemoglobin Concent 34 g/dL (31-37) Red Cell Distribution Width 13.6 % (11.5-14.5) Platelet Count 458 x10^3/uL (140-400) H Neutrophils (%) (Auto) 58 % (31-73) Lymphocytes (%) (Auto) 31 % (24-48) Monocytes (%) (Auto) 7 % (0-9) Eosinophils (%) (Auto) 3 % (0-3) Basophils (%) (Auto) 0 % (0-3) Neutrophils # (Auto) 4.4 x10^3uL (1.8-7.7) Lymphocytes # (Auto) 2.3 x10^3/uL (1.0-4.8) Monocytes # (Auto) 0.5 x10^3/uL (0.0-1.1) Eosinophils # (Auto) 0.2 x10^3/uL (0.0-0.7) Basophils # (Auto) 0.0 x10^3/uL (0.0-0.2) POC Venous pH 7.53 (7.32-7.42) H POC Venous pCO2 29 mmHg (41-51) L POC Venous pO2 62 mmHg (20-40) H Venous Blood HCO3 25 mmol/L (24-28) POC Venous O2 Saturation (Angelique) 94 % POC FiO2 21 Vital Signs: Vital Signs Date Time Temp Pulse Resp B/P (MAP) Pulse Ox O2 Delivery O2 Flow Rate FiO2 03/14/21 17:32 97.9 88 22 160/105 (123) 98 Room Air EKG: EKG: [] Radiology/Procedures: Radiology/Procedures: [] Heart Score: C/O Chest Pain: No Risk Factors: Risk Factors: DM, Current or recent (<one month) smoker, HTN, HLP, family history of CAD, obesity. Risk Scores: Score 0 - 3: 2.5% MACE over next 6 weeks - Discharge Home Score 4 - 6: 20.3% MACE over next 6 weeks - Admit for Clinical Observation Score 7 - 10: 72.7% MACE over next 6 weeks - Early Invasive Strategies Course & Med Decision Making: Course & Med Decision Making Pertinent Labs and Imaging studies reviewed. (See chart for details) The patient's labs remarkable for a blood sugar of 275. Her anion gap is normal. She was given Zofran, Compazine, Haldol, and Benadryl for her vomiting. The patient's labs are further positive for methamphetamines and marijuana. 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 She does not care. I did give her 4 mg of morphine for pain prior to her UDS results, but after her specimen was collected. There is really nothing else I can do for the patient if she is unwilling to manage her blood sugar and stop smoking marijuana. She is stable for discharge at this time. [] Dragon Disclaimer: Dragon Disclaimer: This electronic medical record was generated, in whole or in part, using a voice recognition dictation system. Departure Departure: Impression: Primary Impression: Hyperglycemia Additional Impressions: Nausea & vomiting Marijuana abuse Methamphetamine abuse Disposition: HOME / SELF CARE / HOMELESS Condition: STABLE Referrals: PCP,NO (PCP) Patient Instructions: Cyclic Vomiting Syndrome, Drug Abuse, FAQs ROXY SU DO Mar 14, 2021 18:21
[2021-03-14 18:25] LABS: ALBUMIN 3.5 g/dL (3.4-5.0); ALBUMIN/GLOBULIN RATIO 0.8 (1.0-1.7); TOTAL BILIRUBIN 0.3 mg/dL (0.2-1.0); TOTAL PROTEIN 7.8 g/dL (6.4-8.2)
[2021-03-14] MEDS ORDERED: diphenhydrAMINE 50 MG/ML VIAL IVP ONE (18:30)
[2021-03-14] MEDS ORDERED: PROCHLORPERAZINE 10 MG/2 ML VIAL. IV ONE (20:30)
[2021-03-14] MEDS ORDERED: MORPHINE SULFATE 4 MG/ML DISP.SYRIN. IV ONE (20:30)
[2021-03-14 20:42] LABS: BARBITURATES NEG (NEG); BENZODIAZEPINES NEG (NEG); CANNABINOIDS POS (NEG); COCAINE NEG (NEG); METHADONE NEG (NEG); OPIATES NEG (NEG); PHENCYCLIDINE NEG (NEG)
[2021-03-14 20:44] LABS: BILIRUBIN,URINE NEG (NEG); CLARITY,URINE CLOUDY; COLOR,URINE YELLOW; GLUCOSE,URINE >=1000 mg/dL (NEG)
[2021-03-14 20:45] LABS: NITRITE,URINE NEG (NEG)
[2021-03-14 20:46] LABS: BACTERIA,URINE FEW /HPF (0-FEW); SQUAMOUS EPITHELIAL CELL,UR FEW /LPF; WBC,URINE 20-40 /HPF (0-4)
[2021-03-14 20:53] LABS: AMPHETAMINE/METHAMPHETAMINE POS (NEG)
[2021-03-14 21:15] VITALS: BP 120/87
== END 2021-03-14 21:23 | disposition home or self-care (01) ==
LOC: ER 17:32
DX: E11.65 Type 2 diabetes mellitus with hyperglycemia (principal); R11.2 Nausea with vomiting, unspecified; F12.10 Cannabis abuse, uncomplicated; F15.10 Other stimulant abuse, uncomplicated; F41.9 Anxiety disorder, unspecified; F17.200 Nicotine dependence, unspecified, uncomplicated; Z88.6 Allergy status to analgesic agent; Z88.8 Allergy status to other drugs, medicaments and biological substances
CPT/HCPCS: 36415; 80053; 80307; 81001; 81025; 82010; 82803; 85025; 87086; 96361; 96374; 96375; 96376; 99284; J0780; J1200; J2270; J2405; J7030

== ENCOUNTER 2021-03-16 11:02 | Emergency (ER) | payer OTHER ==
[~2021-03-16] VITALS: Ht 172.7 cm; Wt 54.8 kg
[2021-03-16 12:50] VITALS: BP 136/87
[2021-03-16] MEDS ORDERED: ONDA4TAB7 PO (13:26)
== END 2021-03-16 13:55 | disposition home or self-care (01) ==
LOC: ER 11:02
DX: R11.2 Nausea with vomiting, unspecified (principal); E11.43 Type 2 diabetes mellitus with diabetic autonomic (poly)neuropathy; K31.84 Gastroparesis; F15.10 Other stimulant abuse, uncomplicated; F12.10 Cannabis abuse, uncomplicated; R10.9 Unspecified abdominal pain; F41.9 Anxiety disorder, unspecified; F17.200 Nicotine dependence, unspecified, uncomplicated; Z88.6 Allergy status to analgesic agent; Z88.8 Allergy status to other drugs, medicaments and biological substances
CPT/HCPCS: 36415; 80053; 82010; 82803; 83690; 85025; 93005; 96361; 96374; 99284; J1630; J7030

== ENCOUNTER 2021-03-21 17:15 | Emergency (ER) | payer SELFPAY ==
[~2021-03-21] VITALS: Ht 172.7 cm; Wt 54.8 kg
[2021-03-21] MEDS ORDERED: ONDANSETRON PF 4 MG/2 ML VIAL. ONE (17:18)
[2021-03-21] MEDS ORDERED: METOCLOPRAMIDE HCL 10 MG/2 ML VIAL. IVP ONE (17:45)
[2021-03-21] MEDS ORDERED: IV NORMAL SALINE 1,000ML 1,000 ML IV ONE (17:45)
[2021-03-21] MEDS ORDERED: ONDANSETRON PF 4 MG/2 ML VIAL. IVP ONE (17:45)
[2021-03-21] MEDS ORDERED: FAMOTIDINE 20 MG/2 ML VIAL IVP ONE (17:45)
[2021-03-21 17:54] LABS: BASO # 0.1 x10^3/uL (0.0-0.2); BASO % 1 % (0-3); EOS # 0.1 x10^3/uL (0.0-0.7); EOS % 2 % (0-3); HEMATOCRIT 40.7 % (36.0-47.0); HEMOGLOBIN 13.8 g/dL (12.0-15.5); LYMPH # 1.8 x10^3/uL (1.0-4.8); LYMPH % 28 % (24-48); MEAN CORPUSCULAR HEMOGLOBIN 30 pg (25-35); MEAN CORPUSCULAR HGB CONC 34 g/dL (31-37); MEAN CORPUSCULAR VOLUME 89 fL (79-100); MONO # 0.5 x10^3/uL (0.0-1.1); MONO % 8 % (0-9); NEUT # 3.8 x10^3uL (1.8-7.7); NEUT % 60 % (31-73); PLATELET COUNT 345 x10^3/uL (140-400); RED BLOOD COUNT 4.58 x10^6/uL (3.50-5.40); RED CELL DISTRIBUTION WIDTH 13.9 % (11.5-14.5); WHITE BLOOD COUNT 6.3 x10^3/uL (4.0-11.0)
[2021-03-21 18:13] LABS: ALBUMIN 3.4 g/dL (3.4-5.0); ALBUMIN/GLOBULIN RATIO 0.9 (1.0-1.7); CALCIUM 9.2 mg/dL (8.5-10.1); CREATININE 0.8 mg/dL (0.6-1.0); GFR 84.8; POTASSIUM 4.1 mmol/L (3.5-5.1); TOTAL BILIRUBIN 0.5 mg/dL (0.2-1.0); TOTAL PROTEIN 7.4 g/dL (6.4-8.2)
[2021-03-21] MEDS ORDERED: INSULIN REGULAR 100 UNIT/ML 3ML VIAL. IV ONE (18:30)
--- NOTE | 2021-03-21 19:22 | PHYS DOC ---
Past History Past Medical History: Anxiety, Diabetes, Ovarian Cyst Additional Past Medical Histor: gastroporesis, drug abuse (IRLANDA EDWARDS MED SURG NURSE) Past Surgical History: Other Additional Past Surgical Histo: ovarian cysts removed (IRLANDA EDWARDS MED SURG NURSE) Smoking: Less than 1pk/day Alcohol Use: None Drug Use: Amphetamine, Marijuana, Methamphetamine (IRLANDA EDWARDS MED SURG NURSE) Adult General Chief Complaint Chief Complaint: ABDOMINAL PAIN HPI HPI Patient is a female with a history of uncontrolled type 1 diabetes, gastroparesis, cyclic vomiting from marijuana use, methamphetamine use, who presents to the ED today complaining of nausea and vomiting as well as generalized mild abdominal pain, symptoms began at noon today. Patient denies any fever. Denies any hematemesis or melena. Patient has been seen in this ED multiple times for the same complaints (IRLANDA EDWARDS MED SURG NURSE) Review of Systems Review of Systems Constitutional: Denies fever or chills [] Eyes: Denies change in visual acuity, redness, or eye pain [] HENT: Denies nasal congestion or sore throat [] Respiratory: Denies cough or shortness of breath [] Cardiovascular: No additional information not addressed in HPI [] GI: Reports abdominal pain, nausea and vomiting, denies diarrhea] : Denies dysuria or hematuria [] Musculoskeletal: Denies back pain or joint pain [] Integument: Denies rash or skin lesions [] Neurologic: Denies headache, focal weakness or sensory changes [] All other systems were reviewed and found to be within normal limits, except as documented in this note. (IRLANDA EDWARDS MED SURG NURSE) Current Medications Current Medications Current Medications Medications (Trade) Dose Ordered Sig/Chevy Start Time Stop Time Status Last Admin Dose Admin Famotidine (Pepcid Vial) 20 mg 1X ONCE 03/21/21 17:45 03/21/21 17:46 DC 03/21/21 17:47 20 MG Insulin Human Regular (HumuLIN R VIAL) 6 unit 1X ONCE 03/21/21 18:30 03/21/21 18:31 DC 03/21/21 19:08 6 UNIT Metoclopramide HCl (Reglan Vial) 10 mg 1X ONCE 03/21/21 17:45 03/21/21 17:46 DC 03/21/21 17:47 10 MG Ondansetron HCl (Zofran) 4 mg 1X ONCE 03/21/21 17:45 03/21/21 17:47 DC 03/21/21 17:46 4 MG Sodium Chloride 1,000 ml @ 1,000 mls/hr 1X ONCE 03/21/21 17:45 03/21/21 18:44 DC 03/21/21 17:47 1,000 MLS/HR (IRLANDA EDWARDS M MED SURG NURSE) Allergies Allergies Allergies Coded Allergies Type Severity Reaction Last Updated Verified acetaminophen Allergy Intermediate HIVES 12/25/20 Yes adhesive tape Allergy Intermediate 12/25/20 Yes (IRLANDA EDWARDS M MED SURG NURSE) Physical Exam Physical Exam Constitutional: Well developed, well nourished, no acute distress, non-toxic appearance. [] HENT: Normocephalic, atraumatic, bilateral external ears normal, oropharynx moist, no oral exudates, nose normal. [] Eyes: PERRLA, EOMI, conjunctiva normal, no discharge. [] Neck: Normal range of motion, no tenderness, supple, no stridor. [] Cardiovascular:Heart rate regular rhythm, no murmur [] Lungs & Thorax: Bilateral breath sounds clear to auscultation [] Abdomen: Bowel sounds normal, soft, no tenderness, no masses, no pulsatile masses. [] Skin: Warm, dry, no erythema, no rash. [] Back: No tenderness, no CVA tenderness. [] Extremities: No tenderness, no cyanosis, no clubbing, ROM intact, no edema. [] Neurologic: Alert and oriented X 3, normal motor function, normal sensory function, no focal deficits noted. [] Psychologic: Affect normal, judgement normal, mood normal. [] (IRLANDA EDWARDS M MED SURG NURSE) Current Patient Data Vital Signs Vital Signs Date Time Temp Pulse Resp B/P (MAP) Pulse Ox O2 Delivery O2 Flow Rate FiO2 03/21/21 18:13 102 20 135/74 (94) 99 Room Air 03/21/21 17:15 97.5 Lab Results Laboratory Tests Test 03/21/21 17:28 03/21/21 17:40 White Blood Count 6.3 x10^3/uL (4.0-11.0) Red Blood Count 4.58 x10^6/uL (3.50-5.40) Hemoglobin 13.8 g/dL (12.0-15.5) Hematocrit 40.7 % (36.0-47.0) Mean Corpuscular Volume 89 fL (79-100) Mean Corpuscular Hemoglobin 30 pg (25-35) Mean Corpuscular Hemoglobin Concent 34 g/dL (31-37) Red Cell Distribution Width 13.9 % (11.5-14.5) Platelet Count 345 x10^3/uL (140-400) Neutrophils (%) (Auto) 60 % (31-73) Lymphocytes (%) (Auto) 28 % (24-48) Monocytes (%) (Auto) 8 % (0-9) Eosinophils (%) (Auto) 2 % (0-3) Basophils (%) (Auto) 1 % (0-3) Neutrophils # (Auto) 3.8 x10^3uL (1.8-7.7) Lymphocytes # (Auto) 1.8 x10^3/uL (1.0-4.8) Monocytes # (Auto) 0.5 x10^3/uL (0.0-1.1) Eosinophils # (Auto) 0.1 x10^3/uL (0.0-0.7) Basophils # (Auto) 0.1 x10^3/uL (0.0-0.2) Sodium Level 130 mmol/L (136-145) L Potassium Level 4.1 mmol/L (3.5-5.1) Chloride Level 96 mmol/L (98-107) L Carbon Dioxide Level 24 mmol/L (21-32) Anion Gap 10 (6-14) Blood Urea Nitrogen 24 mg/dL (7-20) H Creatinine 0.8 mg/dL (0.6-1.0) Estimated GFR (Cockcroft-Gault) 84.8 BUN/Creatinine Ratio 30 (6-20) H Glucose Level 318 mg/dL (70-99) H Calcium Level 9.2 mg/dL (8.5-10.1) Total Bilirubin 0.5 mg/dL (0.2-1.0) Aspartate Amino Transferase (AST) 14 U/L (15-37) L Alanine Aminotransferase (ALT) 18 U/L (14-59) Alkaline Phosphatase 99 U/L (46-116) Total Protein 7.4 g/dL (6.4-8.2) Albumin 3.4 g/dL (3.4-5.0) Albumin/Globulin Ratio 0.9 (1.0-1.7) L Lipase 32 U/L (73-393) L Ethyl Alcohol Level < 10 mg/dL (0-10) POC Venous pH 7.47 (7.32-7.42) H POC Venous pCO2 30 mmHg (41-51) L POC Venous pO2 63 mmHg (20-40) H Venous Blood HCO3 22 mmol/L (24-28) L POC Venous O2 Saturation (Angelique) 94 % POC FiO2 21 (IRLANDA EDWARDS APRN) EKG EKG [] (IRLANDA EDWARDS APRN) Radiology/Procedures Radiology/Procedures [] (IRLANDA EDWARDS APRN) Heart Score C/O Chest Pain: N/A Risk Factors: Risk Factors: DM, Current or recent (<one month) smoker, HTN, HLP, family history of CAD, obesity. Risk Scores: Risk Factors: DM, Current or recent (<one month) smoker, HTN, HLP, family h istory of CAD, obesity. (IRLANDA EDWARDS APRN) Course & Med Decision Making Course & Med Decision Making Pertinent Labs and Imaging studies reviewed. (See chart for details) This is a 30-year-old female patient well-known to this ED presenting today for nausea, vomiting, generalized abdominal pain, patient has known history of uncontrolled diabetes, marijuana use and methamphetamine use. She has been seen in the emergency room multiple times with her complaints. She has been encouraged to consider not using drugs with no success. She been encouraged to use insulin and control her blood sugars better with no success. She seems not interested in this conversation today either. She tells me she has a plan to completely stop doing marijuana and methamphetamine starting today. Labs CBC with no acute findings, CMP with glucose of 218, anion gap is normal. Symptoms are well controlled d/c to home (IRLANDA EDWARDS APRN) Dragon Disclaimer Dragon Disclaimer This electronic medical record was generated, in whole or in part, using a voice recognition dictation system. (IRLANDA EDWARDS APRN) Departure Departure: Impression: Primary Impression: Hyperglycemia Additional Impression: Nausea and vomiting Disposition: HOME / SELF CARE / HOMELESS Condition: STABLE Referrals: PCP,NO (PCP) Follow-up with your primary care doctor in the course of this week Patient Instructions: Hyperglycemia Additional Instructions: You were evaluated in the emergency room for chronic abdominal pain with hyperglycemia, nausea and vomiting. We highly recommend you use your insulin and control your blood sugars better. We also recommend you stop using drugs. Follow-up with your primary care doctor. Scripts Metoclopramide Hcl (REGLAN) 10 Mg Tablet 1 TAB PO TID, #12 TAB 0 Refills before food and bedtime Prov: IRLANDA EDWARDS APRN 03/21/21 Attending Signature Attending Signature I have participated in the care of this patient and I have reviewed and agree with all pertinent clinical information above including history, exam, and recommendations. (YELENA HENRY MD) Problem Qualifiers Additional Impression: Nausea and vomiting Vomiting type: unspecified Vomiting Intractability: unspecified Qualified Codes: R11.2 - Nausea with vomiting, unspecified IRLANDA EDWARDS APRN March 21, 2021 19:22 YELENA HENRY MD March 26, 2021 05:46
[2021-03-21] MEDS ORDERED: PROCHLORPERAZINE 10 MG/2 ML VIAL. IV ONE (19:30)
[2021-03-21] MEDS ORDERED: METO10TA81 PO (19:45)
[2021-03-21] MEDS ORDERED: HALOPERIDOL LACT 5 MG/ML VIAL. IVP ONE (19:45)
[2021-03-21] MEDS ORDERED: diphenhydrAMINE 50 MG/ML VIAL IVP ONE (19:45)
[2021-03-21 19:47] LABS: BARBITURATES NEG (NEG); BENZODIAZEPINES NEG (NEG); CANNABINOIDS POS (NEG); COCAINE NEG (NEG); METHADONE NEG (NEG); OPIATES NEG (NEG); PHENCYCLIDINE NEG (NEG)
[2021-03-21 19:54] LABS: AMPHETAMINE/METHAMPHETAMINE POS (NEG)
[2021-03-21 19:57] LABS: BILIRUBIN,URINE NEG (NEG); CLARITY,URINE HAZY; COLOR,URINE COLORLESS; GLUCOSE,URINE >=1000 mg/dL (NEG); NITRITE,URINE NEG (NEG); RBC,URINE >40 /HPF (0-2); UROBILINOGEN,URINE 0.2 mg/dL (0.2 mg/dL)
[2021-03-21 19:58] LABS: BACTERIA,URINE MANY /HPF (0-FEW); SQUAMOUS EPITHELIAL CELL,UR OCC /LPF
[2021-03-21] MEDS ORDERED: MORPHINE SULFATE 2 MG/ML DISP.SYRIN. SQ ONE (20:00)
[2021-03-21 20:02] VITALS: BP 145/95
== END 2021-03-21 20:02 | disposition home or self-care (01) ==
LOC: ER 17:15
DX: E10.649 Type 1 diabetes mellitus with hypoglycemia without coma (principal); E10.43 Type 1 diabetes mellitus with diabetic autonomic (poly)neuropathy; K31.84 Gastroparesis; R11.2 Nausea with vomiting, unspecified; F41.9 Anxiety disorder, unspecified; F17.200 Nicotine dependence, unspecified, uncomplicated; Z88.6 Allergy status to analgesic agent; Z88.8 Allergy status to other drugs, medicaments and biological substances
CPT/HCPCS: 36415; 80053; 80307; 81001; 82803; 82947; 83690; 85025; 87086; 96361; 96372; 96374; 96375; 99284; G0480; J1630; J1815; J2270; J2405; J2765; J3490; J7030; 87077

== ENCOUNTER 2021-03-24 07:12 | Emergency (ER) | payer SELFPAY ==
[~2021-03-24] VITALS: Ht 172.7 cm; Wt 54.8 kg
--- NOTE | 2021-03-24 07:25 | PHYS DOC ---
Past History Past Medical History: Anxiety, Diabetes, Ovarian Cyst Additional Past Medical Histor: gastroparesis, drug abuse Past Surgical History: Other Additional Past Surgical Histo: ovarian cysts removed Smoking: Cigarettes, Less than 1pk/day Alcohol Use: None Drug Use: Marijuana, Methamphetamine General Adult EDM: Chief Complaint: NAUSEA/VOMITING/DIARRHEA HPI: HPI: 30-year-old female presents via EMS with report of nausea/vomiting that started last night 03/23/2021. Patient well-known to emergency department. Patient does have history of diabetes which has been poorly controlled, gastroparesis, cyclic vomiting from marijuana abuse, and history of methamphetamine abuse. Patient was recently seen for similar on 03/21/21 in the Emergency Department here at [facility]. Patient reports no known sick contacts. Reports she took her Lantus and Humalog last night but nothing this morning. Denies dysuria. Denies . Denies fever or chills. Reports associated abdominal pain. Patient reports last drug use was 1 week ago. Review of Systems: Review of Systems: Constitutional: Denies fever or chills; reports malaise Eyes: Denies redness or eye pain HENT: Denies nasal congestion or sore throat Respiratory: Denies cough or shortness of breath Cardiovascular: Denies chest pain or palpitations GI: Reports abdominal pain, nausea, and vomiting : Denies dysuria or hematuria Musculoskeletal: Denies back pain or joint pain Integument: Denies rash or skin lesions Neurologic: Denies headache, focal weakness or sensory changes Complete systems were reviewed and found to be within normal limits, except as documented in this note. Current Medications: Current Meds: Current Medications Medications (Trade) Dose Ordered Sig/Chevy Start Time Stop Time Status Last Admin Dose Admin Famotidine (Pepcid Vial) 20 mg 1X ONCE 03/24/21 07:30 03/24/21 07:31 UNV Metoclopramide HCl (Reglan Vial) 10 mg 1X ONCE 03/24/21 07:30 03/24/21 07:31 UNV Sodium Chloride 1,000 ml @ 1,000 mls/hr Q1H 03/24/21 07:30 03/24/21 08:29 UNV Allergies: Allergies: Allergies Coded Allergies Type Severity Reaction Last Updated Verified acetaminophen Allergy Intermediate HIVES 12/25/20 Yes adhesive tape Allergy Intermediate 12/25/20 Yes Physical Exam: PE: Constitutional: Well developed, well nourished, no acute distress, non-toxic appearance HENT: Normocephalic, atraumatic, tongue tacky Eyes: Conjunctiva normal, no discharge Neck: Normal range of motion, no tenderness, supple Lungs & Thorax: No respiratory distress, equal chest rise and fall Abdomen: Soft, diffuse tenderness, no distention Skin: Warm, dry, no erythema, no rash Extremities: No tenderness, ROM intact, no edema Neurologic: Alert and oriented X 3, no focal deficits noted Psychologic: Affect normal, judgment normal Current Patient Data: Labs: Laboratory Tests Test 03/24/21 07:19 Glucose (Fingerstick) 295 mg/dL (70-99) H EKG: EKG: [] Radiology/Procedures: Radiology/Procedures: [] Heart Score: C/O Chest Pain: N/A Course & Med Decision Making: Course & Med Decision Making Pertinent Lab studies reviewed. (See chart for details) Patient with past medical history of diabetes, gastroparesis, cyclic vomiting from marijuana abuse, and history of methamphetamine abuse presents with report of sudden nausea and vomiting that started last night. Patient seen for similar on 03/21/21. Patient reports last drug use 1 week ago. Labs obtained and posted to chart. Glucose elevated. Acetone negative. Insulin provided. Hypomagnesemia addressed. Symptomatic treatment also provided. IV fluid hydration given x2 L. Patient with interval improvement of symptoms. UA with signs of infection. Empiric antibiotic provided. Patient stable for discharge with outpatient follow-up with PCP. Discussed findings and plan with patient, who acknowledges understanding and agreement. Annelise Disclaimer: Annelise Disclaimer: This electronic medical record was generated, in whole or in part, using a voice recognition dictation system. Departure Departure: Impression: Primary Impression: Nausea and vomiting Qualified Codes: R11.2 - Nausea with vomiting, unspecified Additional Impressions: Hypomagnesemia Hyperglycemia UTI (urinary tract infection) Qualified Codes: N30.00 - Acute cystitis without hematuria Disposition: HOME / SELF CARE / HOMELESS Condition: STABLE Referrals: PCP,NO (PCP) Patient Instructions: Hyperglycemia, [id number], Hypomagnesemia, Nausea and Vomiting, [id number], Urinary Tract Infection, [id number] Scripts Cephalexin (CEPHALEXIN) 500 Mg Tablet 1 TAB PO TID for UTI for 7 Days, #21 TAB Prov: VANESSA OLIVER DO 03/24/21 Famotidine (PEPCID) 20 Mg Tablet 1 TAB PO BID for Gastritis, #20 TAB Prov: VANESSA OLIVER DO 03/24/21 VANESSA OLIVER DO March 24, 2021 07:25
[2021-03-24] MEDS: IV NORMAL SALINE 1,000ML 1,000 ML IV SCH (07:37)
[2021-03-24] MEDS: FAMOTIDINE 20 MG/2 ML VIAL IVP ONE (07:40)
[2021-03-24] MEDS: METOCLOPRAMIDE HCL 10 MG/2 ML VIAL. IVP ONE (07:43)
[2021-03-24 07:45] LABS: BASO # 0.1 x10^3/uL (0.0-0.2); BASO % 1 % (0-3); EOS # 0.1 x10^3/uL (0.0-0.7); EOS % 1 % (0-3); HEMATOCRIT 39.1 % (36.0-47.0); HEMOGLOBIN 13.4 g/dL (12.0-15.5); LYMPH # 2.1 x10^3/uL (1.0-4.8); LYMPH % 25 % (24-48); MEAN CORPUSCULAR HEMOGLOBIN 30 pg (25-35); MEAN CORPUSCULAR HGB CONC 34 g/dL (31-37); MEAN CORPUSCULAR VOLUME 87 fL (79-100); MONO # 0.6 x10^3/uL (0.0-1.1); MONO % 7 % (0-9); NEUT # 5.5 x10^3uL (1.8-7.7); NEUT % 66 % (31-73); PLATELET COUNT 312 x10^3/uL (140-400); RED BLOOD COUNT 4.47 x10^6/uL (3.50-5.40); RED CELL DISTRIBUTION WIDTH 13.9 % (11.5-14.5); WHITE BLOOD COUNT 8.4 x10^3/uL (4.0-11.0)
[2021-03-24 07:54] LABS: CALCIUM 9.4 mg/dL (8.5-10.1); CREATININE 0.8 mg/dL (0.6-1.0); GFR 84.8; POTASSIUM 3.7 mmol/L (3.5-5.1)
[2021-03-24 08:00] LABS: ALBUMIN 3.7 g/dL (3.4-5.0); ALBUMIN/GLOBULIN RATIO 0.9 (1.0-1.7); TOTAL BILIRUBIN 0.6 mg/dL (0.2-1.0); TOTAL PROTEIN 7.6 g/dL (6.4-8.2)
[2021-03-24] MEDS: KETOROLAC 15 MG/ML VIAL. IVP ONE (08:06)
[2021-03-24] MEDS: ONDANSETRON PF 4 MG/2 ML VIAL. IVP ONE (09:17)
[2021-03-24] MEDS: HALOPERIDOL LACT 5 MG/ML VIAL. IM ONE (09:19)
[2021-03-24] MEDS: INSULIN LISPRO 300 UNITS/3 ML VIAL. SQ ONE (09:21)
[2021-03-24] MEDS: MAGNESIUM SULFATE 2GM 50 ML IV ONE (09:21)
[2021-03-24] MEDS: IV NORMAL SALINE 1,000ML 1,000 ML IV ONE (09:22)
[2021-03-24 11:50] LABS: AMPHETAMINE/METHAMPHETAMINE POS (NEG); BARBITURATES NEG (NEG); BENZODIAZEPINES NEG (NEG); CANNABINOIDS POS (NEG); COCAINE NEG (NEG); METHADONE NEG (NEG); OPIATES NEG (NEG); PHENCYCLIDINE NEG (NEG)
[2021-03-24 11:58] LABS: BACTERIA,URINE MANY /HPF (0-FEW); BILIRUBIN,URINE NEG (NEG); CLARITY,URINE CLOUDY; COLOR,URINE YELLOW; GLUCOSE,URINE >=1000 mg/dL (NEG); NITRITE,URINE NEG (NEG); SQUAMOUS EPITHELIAL CELL,UR OCC /LPF; WBC,URINE TNTC /HPF (0-4)
[2021-03-24] MEDS ORDERED: CEPH500T PO (12:16)
[2021-03-24] MEDS ORDERED: FAMO-63 PO (12:16)
[2021-03-24] MEDS ORDERED: IV NORMAL SALINE 50ML 50 ML ONE (12:52)
[2021-03-24] MEDS ORDERED: cefTRIAXone SODIUM 1 GM VIAL ONE (12:52)
[2021-03-24 13:00] VITALS: BP 124/78
[2021-03-25] MEDS ORDERED: ONDA4TAB7 PO (22:26)
== END 2021-03-24 13:05 | disposition home or self-care (01) ==
LOC: ER 07:12
DX: N30.00 Acute cystitis without hematuria (principal); E83.42 Hypomagnesemia; E11.65 Type 2 diabetes mellitus with hyperglycemia; E87.6 Hypokalemia; F41.9 Anxiety disorder, unspecified; E11.43 Type 2 diabetes mellitus with diabetic autonomic (poly)neuropathy; K31.84 Gastroparesis; F17.210 Nicotine dependence, cigarettes, uncomplicated; Z88.6 Allergy status to analgesic agent; Z88.8 Allergy status to other drugs, medicaments and biological substances
CPT/HCPCS: 36415; 80053; 80307; 81001; 81025; 82010; 82550; 82947; 83605; 83690; 83735; 85025; 87086; 87147; 96361; 96365; 96367; 96372; 96375; 99284; J0696; J1630; J1815; J1885; J2405; J2765; J3475; J3490; J7030

== ENCOUNTER 2021-03-25 19:48 | Emergency (ER) | payer SELFPAY ==
[~2021-03-25] VITALS: Ht 167.6 cm; Wt 54.8 kg
[~2021-03-25 19:48] MED LIST changes: +FAMO-63 PO
--- NOTE | 2021-03-25 19:59 | PHYS DOC ---
Past History Past Medical History: Anxiety, Constipation, Diabetes, Ovarian Cyst Additional Past Medical Histor: gastroparesis, drug abuse Past Surgical History: Other Additional Past Surgical Histo: ovarian cysts removed Smoking: Cigarettes, Less than 1pk/day Alcohol Use: None Drug Use: Marijuana, Methamphetamine General Adult HPI: HPI: "... " I am vomiting again.. dehydrated.. cramping.. I did relapse on my meth.. last week.. but I am off again.. only marijuana.." Patient is a 30 year old FEMALE who presents with above hx and complaints of abd. pain, nausea , vomiting, glucose more than 400s at home s on recheck on arrival here glucose 349. Patient well-known to the emergency room staff for periodic frequent runs of ER evaluations for hyperglycemia, DKA, polysubstance abuse, anxiety, gastroparesis episodes. Patient states she did relapse on her meth abuse earlier in the week but has been clean this week. Patient does smoke marijuana. No recent travel. No specific ill contacts. No history of immunosuppression. Patient normally follows with [facility] clinic currently. Patient last seen on03/21 and for similar presentations. Patient denies any trauma. Patient has history of ovarian cysts which were removed. Review of Systems: Review of Systems: Constitutional: Denies fever or chills Eyes: Denies change in visual acuity HENT: Denies nasal congestion or sore throat Respiratory: Denies cough or shortness of breath Cardiovascular: Denies chest pain or edema GI: Complains of abdominal pain, nausea, vomiting, and occasional diarrhea alternating with constipation. History of cyclic vomiting : Denies dysuria Musculoskeletal: Denies back pain or joint pain Integument: Denies rash Neurologic: Denies headache, focal weakness or sensory changes Endocrine: History polyuria or polydipsia Lymphatic: Denies swollen glands Psychiatric: Denies depression or anxiety Family History: Family History: Noncontributory to presentation Current Medications: Current Meds: See nursing for home meds Allergies: Allergies: Allergies Coded Allergies Type Severity Reaction Last Updated Verified acetaminophen Allergy Intermediate HIVES 03/24/21 Yes adhesive tape Allergy Intermediate 03/24/21 Yes Physical Exam: PE: Constitutional: in acute distress, non-toxic appearance. [] HENT: Normocephalic, atraumatic, bilateral external ears normal, oropharynx dry, no oral exudates, nose normal. [] Eyes: PERRLA, EOMI, conjunctiva normal, no discharge. [] Neck: Normal range of motion, no tenderness, supple, no stridor. [] Cardiovascular: Tachycardia heart rate regular rhythm, no murmur [] Lungs & Thorax: Bilateral breath sounds to apex with scattered wheezes on auscultation [] Abdomen: Bowel sounds decreased, soft, generalized tenderness, distended, no pulsatile masses. Old surgery scars. No focal areas of rebound. Skin: Warm, dry, no erythema, no rash. Tattoos. Poor turgor. Back: No tenderness, no CVA tenderness. [] Extremities: No tenderness, no cyanosis, no clubbing, ROM intact, no edema. No psoas sign. No cording. Neurologic: Alert and oriented X 3, n moves all extremities on request does have distal sensory no focal deficits noted. [] Psychologic: Affect anxious, judgement normal, mood normal. [] Current Patient Data: Labs: Laboratory Tests Test 03/25/21 19:53 Glucose (Fingerstick) 349 mg/dL (70-99) H EKG: EKG: [] Radiology/Procedures: Radiology/Procedures: [][address] [address] IMAGING REPORT Signed PATIENT: CHALO RAYMUNDO ACCOUNT: [id number] : 1990 LOCATION: ER AGE: 30 SEX: F EXAM STATUS: REG ER ORD. PHYSICIAN: YELENA HENRY MD REASON: NV PAIN PROCEDURE: ACUTE ABDOMEN SERIES EXAMINATION: XR ABDOMEN COMP ACUTE CLINICAL HISTORY: Abdominal pain, nausea, vomiting EXAM DATE/TIME: 03/25/2021 7:58 PM COMPARISON: 02/23/2021 FINDINGS: Lines, Tubes, and Devices: None. Cardiomediastinal Silhouette: Within normal limits. Lungs and Pleura: No evidence of focal airspace consolidation, pleural effusion, or pneumothorax. Bones and Soft Tissues: No acute osseous abnormality. Incomplete fusion of the posterior elements of L5. Hypertrophy of the right L5 transverse process forming a pseudoarticulation with sacrum. Abdomen: Prominent stool and gas within the ascending, transverse, and descending colon compatible with constipation. No evidence of pneumoperitoneum. Right pelvic phlebolith. IMPRESSION: Prominent colonic stool, compatible with constipation. Electronically signed by: Fan Matute DO (03/25/2021 8:53 PM) [facility] DICTATED AND SIGNED BY: FAN MATUTE DO DATE: 03/25/212048 CC: YELENA HENRY MD; PCP,NO ~MTH0 0 Heart Score: C/O Chest Pain: N/A Risk Factors: Risk Factors: DM, Current or recent (<one month) smoker, HTN, HLP, family history of CAD, obesity. Risk Scores: Score 0 - 3: 2.5% MACE over next 6 weeks - Discharge Home Score 4 - 6: 20.3% MACE over next 6 weeks - Admit for Clinical Observation Score 7 - 10: 72.7% MACE over next 6 weeks - Early Invasive Strategies Course & Med Decision Making: Course & Med Decision Making Pertinent Labs and Imaging studies reviewed. (See chart for details) Referred patient to avoid illicit drugs. Stay on a clear fluid diet for the next 2 days. Push fluids. Impression: 1. Hyperglycemia 2. Dehydration 3. Cyclic vomiting 4. Constipation 5. Marijuana and methamphetamine use 6. Gastroparesis [] Dragon Disclaimer: Dragon Disclaimer: This electronic medical record was generated, in whole or in part, using a voice recognition dictation system. Departure Departure: Referrals: PCP,BAY (PCP) Scripts Ondansetron Hcl (ZOFRAN) 4 Mg Tablet 8 MG PO QIDPRN PRN for NAUSEA/VOMITING, #30 TAB Prov: YELENA HENRY MD 03/25/21 Dragon Disclaimer This chart was dictated in whole or in part using Voice Recognition software in a busy, high-work load, and often noisy Emergency Department environment. It may contain unintended and wholly unrecognized errors or omissions. YELENA HENRY MD March 25, 2021 19:59
[2021-03-25 20:15] LABS: BASO % 1 % (0-3); EOS # 0.1 x10^3/uL (0.0-0.7); EOS % 1 % (0-3); HEMATOCRIT 39.9 % (36.0-47.0); HEMOGLOBIN 13.6 g/dL (12.0-15.5); LYMPH # 2.2 x10^3/uL (1.0-4.8); LYMPH % 39 % (24-48); MEAN CORPUSCULAR HEMOGLOBIN 30 pg (25-35); MEAN CORPUSCULAR HGB CONC 34 g/dL (31-37); MEAN CORPUSCULAR VOLUME 89 fL (79-100); MONO # 0.4 x10^3/uL (0.0-1.1); MONO % 8 % (0-9); NEUT # 2.9 x10^3uL (1.8-7.7); NEUT % 51 % (31-73); PLATELET COUNT 315 x10^3/uL (140-400); RED BLOOD COUNT 4.51 x10^6/uL (3.50-5.40); RED CELL DISTRIBUTION WIDTH 13.5 % (11.5-14.5); WHITE BLOOD COUNT 5.6 x10^3/uL (4.0-11.0)
[2021-03-25] MEDS: IV RINGERS SOLUTION,LACTATED 1,000 ML IV SCH (20:18)
[2021-03-25] MEDS: KETOROLAC 30 MG/ML VIAL. IVP ONE (20:19)
[2021-03-25] MEDS: FAMOTIDINE 20 MG/2 ML VIAL IVP ONE (20:19)
[2021-03-25] MEDS: ONDANSETRON PF 4 MG/2 ML VIAL. IVP ONE ×2 (20:19→22:35)
[2021-03-25 20:20] LABS: CALCIUM 9.2 mg/dL (8.5-10.1); CREATININE 0.8 mg/dL (0.6-1.0); GFR 84.8; POTASSIUM 4.3 mmol/L (3.5-5.1)
[2021-03-25] MEDS: INSULIN REGULAR 100 UNIT/ML 3ML VIAL. IV ONE (20:20)
[2021-03-25 20:26] LABS: ALBUMIN 3.6 g/dL (3.4-5.0); DIRECT BILIRUBIN 0.1 mg/dL (0.0-0.2); TOTAL BILIRUBIN 0.4 mg/dL (0.2-1.0)
[2021-03-25 20:30] LABS: TOTAL PROTEIN 7.4 g/dL (6.4-8.2)
[2021-03-25] MEDS: INSULIN REGULAR VIAL 100 UNIT in IV NORMAL SALINE 100ML 100 ML IV ONE (20:34)
[2021-03-25] MEDS: MAGNESIUM HYDROXIDE 2,400 MG/30 ML ORAL.SUSP. PO ONE (20:45)
[2021-03-25] MEDS: IV NORMAL SALINE 1,000ML 1,000 ML IV SCH (20:56)
--- NOTE | 2021-03-25 20:56 | RAD ---
EXAMINATION: XR ABDOMEN COMP ACUTE CLINICAL HISTORY: Abdominal pain, nausea, vomiting EXAM DATE/TIME: 03/25/2021 7:58 PM COMPARISON: 02/23/2021 FINDINGS: Lines, Tubes, and Devices: None. Cardiomediastinal Silhouette: Within normal limits. Lungs and Pleura: No evidence of focal airspace consolidation, pleural effusion, or pneumothorax. Bones and Soft Tissues: No acute osseous abnormality. Incomplete fusion of the posterior elements of L5. Hypertrophy of the right L5 transverse process forming a pseudoarticulation with sacrum. Abdomen: Prominent stool and gas within the ascending, transverse, and descending colon compatible wi th constipation. No evidence of pneumoperitoneum. Right pelvic phlebolith. IMPRESSION: Prominent colonic stool, compatible with constipation. Electronically signed by: Fan Salguero DO (03/25/2021 8:53 PM) [facility]
[2021-03-25 22:13] LABS: BARBITURATES NEG (NEG); BENZODIAZEPINES NEG (NEG); CANNABINOIDS NEG (NEG); COCAINE NEG (NEG); METHADONE NEG (NEG); OPIATES NEG (NEG); PHENCYCLIDINE NEG (NEG)
[2021-03-25 22:18] LABS: AMPHETAMINE/METHAMPHETAMINE POS (NEG)
[2021-03-25 22:20] LABS: BACTERIA,URINE 0 /HPF (0-FEW); BILIRUBIN,URINE NEG (NEG); CLARITY,URINE HAZY; COLOR,URINE YELLOW; GLUCOSE,URINE >=1000 mg/dL (NEG); NITRITE,URINE NEG (NEG); SQUAMOUS EPITHELIAL CELL,UR MOD /LPF; UROBILINOGEN,URINE 0.2 mg/dL (0.2 mg/dL)
[2021-03-25 22:21] VITALS: BP 146/86
[2021-03-25] MEDS ORDERED: ONDA4TAB7 PO (22:26)
== END 2021-03-25 22:44 | disposition home or self-care (01) ==
LOC: ER 19:48
DX: E11.65 Type 2 diabetes mellitus with hyperglycemia (principal); E86.0 Dehydration; K59.00 Constipation, unspecified; K31.84 Gastroparesis; F12.10 Cannabis abuse, uncomplicated; F15.10 Other stimulant abuse, uncomplicated; G43.A0 Cyclical vomiting, in migraine, not intractable; Z88.6 Allergy status to analgesic agent
CPT/HCPCS: 36415; 74022; 80048; 80076; 80307; 81001; 81025; 82150; 82550; 82947; 83690; 84484; 85025; 85610; 85730; 87086; 96361; 96365; 96375; 96376; 99285; J1815; J1885; J2405; J3490; J7030; J7120

== ENCOUNTER 2021-03-29 04:39 | Emergency (ER) | payer SELFPAY ==
[~2021-03-29] VITALS: Ht 172.7 cm; Wt 54.5 kg
[2021-03-29] MEDS ORDERED: HALOPERIDOL LACT 5 MG/ML VIAL. IVP ONE (05:00)
[2021-03-29] MEDS ORDERED: diphenhydrAMINE 50 MG/ML VIAL IVP ONE (05:00)
[2021-03-29] MEDS ORDERED: IV NORMAL SALINE 1,000ML 1,000 ML IV ONE (05:00)
[2021-03-29] MEDS ORDERED: ONDANSETRON PF 4 MG/2 ML VIAL. IVP ONE (05:00)
[2021-03-29 05:17] LABS: BASO # 0.1 x10^3/uL (0.0-0.2); BASO % 1 % (0-3); EOS # 0.1 x10^3/uL (0.0-0.7); EOS % 1 % (0-3); HEMOGLOBIN 14.1 g/dL (12.0-15.5); LYMPH # 2.6 x10^3/uL (1.0-4.8); LYMPH % 29 % (24-48); MEAN CORPUSCULAR HEMOGLOBIN 30 pg (25-35); MEAN CORPUSCULAR HGB CONC 34 g/dL (31-37); MEAN CORPUSCULAR VOLUME 90 fL (79-100); MONO # 0.6 x10^3/uL (0.0-1.1); MONO % 7 % (0-9); NEUT # 5.4 x10^3uL (1.8-7.7); NEUT % 62 % (31-73); PLATELET COUNT 303 x10^3/uL (140-400); RED CELL DISTRIBUTION WIDTH 13.9 % (11.5-14.5); WHITE BLOOD COUNT 8.8 x10^3/uL (4.0-11.0)
[2021-03-29 05:20] LABS: BARBITURATES NEG (NEG); BENZODIAZEPINES NEG (NEG); CANNABINOIDS NEG (NEG); COCAINE NEG (NEG); METHADONE NEG (NEG); OPIATES NEG (NEG); PHENCYCLIDINE NEG (NEG)
[2021-03-29 05:22] LABS: CREATININE 0.8 mg/dL (0.6-1.0); GFR 84.8; POTASSIUM 4.4 mmol/L (3.5-5.1)
[2021-03-29 05:22] LABS: BILIRUBIN,URINE NEG (NEG); CLARITY,URINE CLOUDY; COLOR,URINE YELLOW; GLUCOSE,URINE 500 mg/dL (NEG)
--- NOTE | 2021-03-29 05:22 | PHYS DOC ---
Past History Past Medical History: Anxiety, Constipation, Diabetes, Ovarian Cyst Additional Past Medical Histor: gastroparesis, drug abuse Past Surgical History: No Surgical History Additional Past Surgical Histo: ovarian cysts removed Smoking: Cigarettes, Less than 1pk/day Alcohol Use: None Drug Use: Marijuana, Methamphetamine General Adult EDM: Chief Complaint: ABDOMINAL PAIN HPI: HPI: 30-year-old female returns the emergency room with abdominal pain. The patient is well-known to the emergency room. She is having left upper quadrant abdominal pain at this time. She states that it is sharp and severe in character. She was asleep and woke up with the pain. She had left lower quadrant pain earlier in the day. Patient has a history of poorly controlled diabetes type 1 and abdominal pain. She states that her most recent blood sugar was 230s. She denies fever or chills. Review of Systems: Review of Systems: Constitutional: Denies fever or chills Eyes: Denies change in visual acuity HENT: Denies nasal congestion or sore throat Respiratory: Denies cough or shortness of breath Cardiovascular: Denies chest pain or edema GI: Left upper quadrant abdominal pain, nausea, vomiting. : Denies dysuria Musculoskeletal: Denies back pain or joint pain Integument: Denies rash Neurologic: Denies headache, focal weakness or sensory changes Endocrine: Denies polyuria or polydipsia Lymphatic: Denies swollen glands Psychiatric: Denies depression or anxiety Current Medications: Current Meds: Current Medications Medications (Trade) Dose Ordered Sig/Chevy Start Time Stop Time Status Last Admin Dose Admin Diphenhydramine HCl (Benadryl) 25 mg 1X ONCE 03/29/21 05:00 03/29/21 05:01 Haloperidol Lactate (Haldol) 5 mg 1X ONCE 03/29/21 05:00 03/29/21 05:01 Morphine Sulfate (Morphine 2mg Syringe) 2 mg 1X ONCE 03/29/21 05:00 03/29/21 05:01 UNV Ondansetron HCl (Zofran) 4 mg 1X ONCE 03/29/21 05:00 03/29/21 05:01 Sodium Chloride 1,000 ml @ 1,000 mls/hr 1X ONCE 03/29/21 05:00 03/29/21 05:59 Allergies: Allergies: Allergies Coded Allergies Type Severity Reaction Last Updated Verified acetaminophen Allergy Intermediate HIVES 03/24/21 Yes adhesive tape Allergy Intermediate 03/24/21 Yes Physical Exam: PE: Constitutional: Well developed, well nourished, mild acute distress, non-toxic appearance. [] HENT: Normocephalic, atraumatic, bilateral external ears normal, oropharynx moist, no oral exudates, nose normal. [] Eyes: PERRLA, EOMI, conjunctiva normal, no discharge. [] Neck: Normal range of motion, no tenderness, supple, no stridor. [] Cardiovascular: Heart rate regular rhythm, no murmur [] Lungs & Thorax: Bilateral breath sounds clear to auscultation [] Abdomen: Bowel sounds normal, soft, LUQ tenderness, no masses, no pulsatile masses. [] Skin: Warm, dry, no erythema, no rash. [] Back: No tenderness, no CVA tenderness. [] Extremities: No tenderness, no cyanosis, no clubbing, ROM intact, no edema. [] Neurologic: Alert and oriented X 3, normal motor function, normal sensory function, no focal deficits noted. [] Psychologic: Affect dramatic, judgement normal, mood anxious. [] EKG: EKG: [] Radiology/Procedures: Radiology/Procedures: [] Heart Score: C/O Chest Pain: No Risk Factors: Risk Factors: DM, Current or recent (<one month) smoker, HTN, HLP, family history of CAD, obesity. Risk Scores: Score 0 - 3: 2.5% MACE over next 6 weeks - Discharge Home Score 4 - 6: 20.3% MACE over next 6 weeks - Admit for Clinical Observation Score 7 - 10: 72.7% MACE over next 6 weeks - Early Invasive Strategies Course & Med Decision Making: Course & Med Decision Making Pertinent Labs and Imaging studies reviewed. (See chart for details) For the patient's discomfort I have given her 1 L normal saline, 25 mg of Benadryl, 5 mg of Haldol, 2 mg of large, and 4 mg of Zofran IV. Her labs are significant for a blood sugar over 300. She has a slightly elevated anion gap. The fluids should help with this. The patient's urinalysis is positive for methamphetamines. When asked about prescription medications, the patient does not state that she is taking any amphetamine-based medications. This is likely contributing to her pain. Her CT scan is significant for constipation. Official read is pending. I am signing the patient out to Dr. Webster at 0600. [] Annelise Disclaimer: Annelise Disclaimer: This electronic medical record was generated, in whole or in part, using a voice recognition dictation system. Departure Departure: Referrals: PCP,UNKNOWN (PCP) ROXY SU DO March 29, 2021 05:22
[2021-03-29 05:23] LABS: AMORPHOUS SEDIMENT,UR PRESENT /HPF; BACTERIA,URINE FEW /HPF (0-FEW); NITRITE,URINE NEG (NEG); SQUAMOUS EPITHELIAL CELL,UR OCC /LPF; UROBILINOGEN,URINE 0.2 mg/dL (0.2 mg/dL)
[2021-03-29 05:25] LABS: AMPHETAMINE/METHAMPHETAMINE POS (NEG)
[2021-03-29 05:28] LABS: ALBUMIN 4.2 g/dL (3.4-5.0); ALBUMIN/GLOBULIN RATIO 1.1 (1.0-1.7); TOTAL BILIRUBIN 0.3 mg/dL (0.2-1.0); TOTAL PROTEIN 8.1 g/dL (6.4-8.2)
[2021-03-29] MEDS ORDERED: MORPHINE SULFATE 2 MG/ML DISP.SYRIN. IV ONE (05:30)
--- NOTE | 2021-03-29 06:00 | RAD ---
EXAM: CT ABDOMEN/PELVIS WITHOUT CONTRAST. HISTORY: Left upper quadrant pain. TECHNIQUE: Computed tomography of the abdomen and pelvis was performed without intravenous contrast. One or more of the following individualized dose reduction techniques were utilized for this examinat ion: 1. Automated exposure control. 2. Adjustment of the mA and/or kV according to patient size. 3. Use of iterative reconstruction technique. COMPARISON: 01/23/2021. FINDINGS: Lung windows through the visualized portions of the bases reveal no abnormality. Bone windo ws reveal no suspicious lesions. The liver, gallbladder, pancreas, adrenal glands and spleen are unremarkable without contrast. There are no pathologically enlarged lymph nodes. Stool throughout the colon is consistent with constipation. The appendix is not inflamed. There is no small bowel obstruction. There are multiple cortical scars along the left kidney. A calculus in the left upper pole measures 3 mm. There are no ureteral calculi bilaterally. There is no hydronephrosis. IMPRESSION: 1. 3 mm left renal calculus. Left renal cortical scarring suggests prior ascending infection. 2. Correlate for mild constipation. Electronically signed by: Geraldo Jolley MD (03/29/2021 5:58 AM) [facility]
[2021-03-29 06:21] VITALS: BP 144/91
[2021-03-29] MEDS ORDERED: MAGNESIUM CITRATE 296 ML SOLUTION. PO ONE (06:30)
== END 2021-03-29 06:23 | disposition home or self-care (01) ==
LOC: ER 04:39
DX: R10.12 Left upper quadrant pain (principal); R11.2 Nausea with vomiting, unspecified; E10.65 Type 1 diabetes mellitus with hyperglycemia; Z88.6 Allergy status to analgesic agent
CPT/HCPCS: 36415; 74176; 80053; 80307; 81001; 82947; 83690; 85025; 96361; 96374; 96375; 99284; J1200; J1630; J2270; J2405; J7030

== ENCOUNTER 2021-04-07 15:53 | Emergency (ER) | payer SELFPAY ==
[~2021-04-07] VITALS: Ht 172.7 cm; Wt 54.5 kg
[2021-04-07] MEDS ORDERED: IV NORMAL SALINE 1,000ML 1,000 ML IV ONE (16:15)
[2021-04-07] MEDS ORDERED: METOCLOPRAMIDE HCL 10 MG/2 ML VIAL. IVP ONE (16:15)
--- NOTE | 2021-04-07 16:22 | PHYS DOC ---
Past History Past Medical History: Anxiety, Constipation, Diabetes, Ovarian Cyst Additional Past Medical Histor: gastroparesis, drug abuse Past Surgical History: No Surgical History Additional Past Surgical Histo: ovarian cysts removed Smoking: Cigarettes, Less than 1pk/day Alcohol Use: None Drug Use: Marijuana, Methamphetamine General Adult EDM: Chief Complaint: ABDOMINAL PAIN HPI: HPI: Patient is a 30-year-old female who was brought here by EMS from home due to abdominal pain with nausea vomiting started this morning. Patient checked her blood sugar and it was too high to measure so she gave herself 10 units of regular insulin. Patient then called EMS to take her here for evaluation. Patient has been evaluated here multiple times for the same problem, patient has gastroparesis due to uncontrolled diabetic. Patient denies any cough or fever. Review of Systems: Review of Systems: Constitutional: Denies fever or chills Eyes: Denies change in visual acuity HENT: Denies nasal congestion or sore throat Respiratory: Denies cough or shortness of breath Cardiovascular: Denies chest pain or edema GI: Positive for abdominal pain with nausea vomiting. : Denies dysuria Musculoskeletal: Denies back pain or joint pain Integument: Denies rash Neurologic: Denies headache, focal weakness or sensory changes Endocrine: Denies polyuria or polydipsia Lymphatic: Denies swollen glands Psychiatric: Denies depression or anxiety Current Medications: Current Meds: Current Medications Medications (Trade) Dose Ordered Sig/Chevy Start Time Stop Time Status Last Admin Dose Admin Metoclopramide HCl (Reglan Vial) 10 mg 1X ONCE 04/07/21 16:15 04/07/21 16:16 DC Sodium Chloride 1,000 ml @ 1,000 mls/hr 1X ONCE 04/07/21 16:15 04/07/21 17:14 Allergies: Allergies: Allergies Coded Allergies Type Severity Reaction Last Updated Verified acetaminophen Allergy Intermediate HIVES 03/24/21 Yes adhesive tape Allergy Intermediate 03/24/21 Yes Physical Exam: PE: Constitutional: Well developed, well nourished, no acute distress, non-toxic appearance. [] HENT: Normocephalic, atraumatic, bilateral external ears normal, oropharynx mois t, no oral exudates, nose normal. [] Eyes: PERRLA, EOMI, conjunctiva normal, no discharge. [] Neck: Normal range of motion, no tenderness, supple, no stridor. [] Cardiovascular:Heart rate regular rhythm, no murmur [] Lungs & Thorax: Bilateral breath sounds clear to auscultation [] Abdomen: Bowel sounds normal, soft, no tenderness, no masses, no pulsatile masses. [] Skin: Warm, dry, no erythema, no rash. [] Back: No tenderness, no CVA tenderness. [] Extremities: No tenderness, no cyanosis, no clubbing, ROM intact, no edema. [] Neurologic: Alert and oriented X 3, normal motor function, normal sensory function, no focal deficits noted. [] Psychologic: Affect normal, judgement normal, mood normal. [] Current Patient Data: Labs: Laboratory Tests Test 04/07/21 16:20 White Blood Count 6.7 x10^3/uL Red Blood Count 4.70 x10^6/uL Hemoglobin 14.1 g/dL Hematocrit 41.2 % Mean Corpuscular Volume 88 fL Mean Corpuscular Hemoglobin 30 pg Mean Corpuscular Hemoglobin Concent 34 g/dL Red Cell Distribution Width 13.6 % Platelet Count 313 x10^3/uL Neutrophils (%) (Auto) 52 % Lymphocytes (%) (Auto) 37 % Monocytes (%) (Auto) 8 % Eosinophils (%) (Auto) 2 % Basophils (%) (Auto) 0 % Neutrophils # (Auto) 3.4 x10^3uL Lymphocytes # (Auto) 2.5 x10^3/uL Monocytes # (Auto) 0.6 x10^3/uL Eosinophils # (Auto) 0.2 x10^3/uL Basophils # (Auto) 0.0 x10^3/uL Maternal Serum HCG Beta Subunit < 1 mIU/mL Sodium Level 138 mmol/L Potassium Level 3.7 mmol/L Chloride Level 101 mmol/L Carbon Dioxide Level 24 mmol/L Anion Gap 13 Blood Urea Nitrogen 15 mg/dL Creatinine 0.8 mg/dL Estimated GFR (Cockcroft-Gault) 84.8 BUN/Creatinine Ratio 19 Glucose Level 198 mg/dL Calcium Level 9.3 mg/dL Magnesium Level 1.8 mg/dL Total Bilirubin 0.4 mg/dL Aspartate Amino Transf (AST/SGOT) 15 U/L Alanine Aminotransferase (ALT/SGPT) 22 U/L Alkaline Phosphatase 106 U/L Total Protein 7.6 g/dL Albumin 3.6 g/dL Albumin/Globulin Ratio 0.9 Acetone Level Neg Current Medications Medications (Trade) Dose Ordered Sig/Chevy Route PRN Reason Start Time Stop Time Status Last Admin Dose Admin Metoclopramide HCl (Reglan Vial) 10 mg 1X ONCE IVP 04/07/21 16:15 04/07/21 16:16 DC 04/07/21 17:09 Sodium Chloride 1,000 ml @ 1,000 mls/hr 1X ONCE IV 04/07/21 16:15 04/07/21 17:14 DC 04/07/21 17:09 Morphine Sulfate (Morphine 4mg Syringe) 4 mg 1X ONCE IV 04/07/21 17:15 04/07/21 17:20 DC 04/07/21 17:29 EKG: EKG: EKG was done at 1614, heart rate 99 bpm, normal sinus rhythm, no ST segment elevation. QT 330 MS , QTc 429 MS. Radiology/Procedures: Radiology/Procedures: Acute abdominal series, showed no obstruction, large amount of stool in her colon. Heart Score: C/O Chest Pain: N/A Risk Factors: Risk Factors: DM, Current or recent (<one month) smoker, HTN, HLP, family history of CAD, obesity. Risk Scores: Score 0 - 3: 2.5% MACE over next 6 weeks - Discharge Home Score 4 - 6: 20.3% MACE over next 6 weeks - Admit for Clinical Observation Score 7 - 10: 72.7% MACE over next 6 weeks - Early Invasive Strategies Course & Med Decision Making: Course & Med Decision Making Pertinent Labs and Imaging studies reviewed. (See chart for details) Patient is a 30-year-old female who presented to ER for nausea vomiting and abdominal pain. Patient has history of gastroparesis due to uncontrolled diabetic. This is her chronic pain, patient was given IV fluid IV nausea medica tion and pain medication in ER, she felt much better. Patient will be discharged home. Patient already has Zofran at home to take for nausea. Dragon Disclaimer: Dragon Disclaimer: This electronic medical record was generated, in whole or in part, using a voice recognition dictation system. Departure Departure: Impression: Primary Impression: Diabetic gastroparesis Disposition: HOME / SELF CARE / HOMELESS Condition: IMPROVED Referrals: PCP,NO (PCP) Please follow up with this Provider Group this week. [address] [place] [address] [address] [place] [address] Patient Instructions: Gastroparesis Additional Instructions: Thank you for visiting our Emergency Department. We appreciate you trusting us with your care. If any additional problems come up don't hesitate to return to visit us. Please follow up with your primary care provider so they can plan additional care if needed and know about the problem that you had. If symptoms worsen come back to the Emergency Department. Any concerning symptoms that start such as chest pain, shortness of air, weakness or numbness on one side of the body, running high fevers or any other concerning symptoms return to the ER. Scripts Metoclopramide Hcl (REGLAN) 10 Mg Tablet 1 TAB PO QID PRN for NAUSEA, #30 TAB 0 Refills before food and bedtime Prov: PERNELL FALK DO 04/07/21 PERNELL FALK DO April 07, 2021 16:22
[2021-04-07 16:36] LABS: BASO % 0 % (0-3); EOS # 0.2 x10^3/uL (0.0-0.7); EOS % 2 % (0-3); HEMATOCRIT 41.2 % (36.0-47.0); HEMOGLOBIN 14.1 g/dL (12.0-15.5); LYMPH # 2.5 x10^3/uL (1.0-4.8); LYMPH % 37 % (24-48); MEAN CORPUSCULAR HEMOGLOBIN 30 pg (25-35); MEAN CORPUSCULAR HGB CONC 34 g/dL (31-37); MEAN CORPUSCULAR VOLUME 88 fL (79-100); MONO # 0.6 x10^3/uL (0.0-1.1); MONO % 8 % (0-9); NEUT # 3.4 x10^3uL (1.8-7.7); NEUT % 52 % (31-73); PLATELET COUNT 313 x10^3/uL (140-400); RED CELL DISTRIBUTION WIDTH 13.6 % (11.5-14.5); WHITE BLOOD COUNT 6.7 x10^3/uL (4.0-11.0)
--- NOTE | 2021-04-07 16:46 | EKG ---
[address] [address] Test Date: 2021-04-07 Test Time: 16:14:03 Pat Name: CHALO RAYMUNDO Department: Room: Gender: F Overhead Irrigator: CARLOS : 1990 Requested By: PERNELL FALK Order Number: [id number] Reading MD: Measurements Intervals Penelope Rate: 99 P: 0 OH: 136 QRS: 84 QRSD: 86 T: 54 QT: 330 QTc: 429 Interpretive Statements SINUS RHYTHM NORMAL ECG RI6.02 No previous ECG available for comparison
[2021-04-07 16:47] LABS: CALCIUM 9.3 mg/dL (8.5-10.1); CREATININE 0.8 mg/dL (0.6-1.0); GFR 84.8; POTASSIUM 3.7 mmol/L (3.5-5.1)
[2021-04-07 16:52] LABS: ALBUMIN 3.6 g/dL (3.4-5.0); ALBUMIN/GLOBULIN RATIO 0.9 (1.0-1.7); MAGNESIUM 1.8 mg/dL (1.8-2.4); TOTAL BILIRUBIN 0.4 mg/dL (0.2-1.0); TOTAL PROTEIN 7.6 g/dL (6.4-8.2)
[2021-04-07] MEDS ORDERED: MORPHINE SULFATE 4 MG/ML DISP.SYRIN. IV ONE (17:15)
[2021-04-07] MEDS ORDERED: METO10TA81 PO (18:00)
--- NOTE | 2021-04-07 18:00 | RAD ---
Acute Abdominal Series: Technique: PA view of the chest and supine and upright views of the abdomen were obtained. History: Abdominal pain nausea and vomiting. Comparison: March 25, 2021. Findings: There are a few nodular opacities in the lungs which are likely calcified granuloma. There is air and stool scattered throughout the colon. There is a relative paucity small bowel gas. There is no free air. Impression: Constipation. Electronically signed by: Compa Meier III, MD (04/07/2021 5:58 PM) [id number]
[2021-04-07 18:23] VITALS: BP 111/86
== END 2021-04-07 18:24 | disposition home or self-care (01) ==
LOC: ER 15:53
DX: E11.43 Type 2 diabetes mellitus with diabetic autonomic (poly)neuropathy (principal); K31.84 Gastroparesis; R11.2 Nausea with vomiting, unspecified; F41.9 Anxiety disorder, unspecified; F17.210 Nicotine dependence, cigarettes, uncomplicated; Z88.8 Allergy status to other drugs, medicaments and biological substances
CPT/HCPCS: 36415; 74022; 80053; 82010; 83735; 84702; 85025; 93005; 96361; 96374; 96375; 99285; J2270; J2765; J7030

== ENCOUNTER 2021-04-22 20:32 | Emergency (ER) | payer SELFPAY ==
[~2021-04-22] VITALS: Ht 172.7 cm; Wt 58.0 kg
[~2021-04-22 20:32] MED LIST changes: -OMEP40CA45 PO; +OMEP40CA7 PO
--- NOTE | 2021-04-22 20:42 | PHYS DOC ---
Past History Past Medical History: Anxiety, Constipation, Diabetes, Ovarian Cyst, Other Additional Past Medical Histor: gastroparesis, drug abuse Past Surgical History: No Surgical History Additional Past Surgical Histo: ovarian cysts removed Smoking: Cigarettes, Less than 1pk/day Alcohol Use: None Drug Use: Marijuana, Methamphetamine General Adult EDM: Chief Complaint: HYPERGLYCEMIA HPI: HPI: " My sugars.. just got high.. got nausea.. I gave my self some regular insulin".."Just need something ... to get over my cyclic vomiting.." Patient is a 30 year old female who presents with hx of hyperglycemia and cyclic vomiting. Patient well-known to the emergency department staff for episodes of hyperglycemia, poor diabetic control, cyclic vomiting and polysubstance abuse. Patient denies any intake bad food. No specific ill contacts. No trauma. No recent travel. Patient denies any immunosuppression. Patient has past medical history for diabetes, diabetic gastroparesis, multiple admissions for diabetic ketoacidosis, peripheral neuropathy, polysubstance abuse, MR SA, GERD, and noncompliance with medical regimens. Patient had past surgeries for I&D of abscesses, ruptured ovarian cyst, laparoscopic evaluation, Port-A-Cath placements and removals multiple EGDs, gastric emptying studies,. Patient currently having some dry heaves. Review of Systems: Review of Systems: Constitutional: Denies fever or chills Eyes: Denies change in visual acuity HENT: Denies nasal congestion or sore throat Respiratory: Denies cough or shortness of breath Cardiovascular: Denies chest pain or edema GI: Denies abdominal pain, nausea, vomiting, bloody stools or diarrhea : Denies dysuria Musculoskeletal: Denies back pain or joint pain Integument: Denies rash Neurologic: Denies headache, focal weakness or sensory changes Endocrine: Denies polyuria or polydipsia Lymphatic: Denies swollen glands Psychiatric: Denies depression or anxiety Family History: Family History: Noncontributory to presentation Current Medications: Current Meds: See nursing for home meds Allergies: Allergies: Allergies Coded Allergies Type Severity Reaction Last Updated Verified acetaminophen Allergy Intermediate HIVES 04/07/21 Yes adhesive tape Allergy Intermediate 04/07/21 Yes Physical Exam: PE: Constitutional: Moderate acute distress, non-toxic appearance. [] HENT: Normocephalic, atraumatic, bilateral external ears normal, oropharynx dry, no oral exudates, nose normal. [] Eyes: PERRLA, EOMI, conjunctiva normal, no discharge. [] Neck: Normal range of motion, no tenderness, supple, no stridor. [] Cardiovascular: Tachycardia heart rate regular rhythm, no murmur. Monitor shows a sinus rhythm. in 90's. Lungs & Thorax: Bilateral breath sounds equal apex with scattered wheezes auscultation [] Abdomen: Bowel sounds decreased, soft, mild epigastric tenderness, no masses, no pulsatile masses. Old surgery scars. Skin: Warm, dry, no erythema, no rash. Poor turgor Back: No tenderness, no CVA tenderness. [] Extremities: No tenderness, no cyanosis, no clubbing, ROM intact, no edema. No cording appreciated Neurologic: Alert and oriented X 3, moves all extremities on request, decreased plantar sensation,, no focal deficits noted. [] Psychologic: Affect anxious, judgement normal, mood depressed. P. denies suicidal ideation EKG: EKG: [] Radiology/Procedures: Radiology/Procedures: [] Heart Score: C/O Chest Pain: N/A Risk Factors: Risk Factors: DM, Current or recent (<one month) smoker, HTN, HLP, family history of CAD, obesity. Risk Scores: Score 0 - 3: 2.5% MACE over next 6 weeks - Discharge Home Score 4 - 6: 20.3% MACE over next 6 weeks - Admit for Clinical Observation Score 7 - 10: 72.7% MACE over next 6 weeks - Early Invasive Strategies Course & Med Decision Making: Course & Med Decision Making Pertinent Labs and Imaging studies reviewed. (See chart for details). Patient IV saline and Zofran and 1 dose of Compazine. Patient then requesting discharge. Patient push clear fluids and advance as tolerated. Patient take insulin as previous directed. Patient document blood sugars 4 times a day and show this record to her primary care. Patient to take Zofran 8 mg with 4 times a day for active nausea and vomiting. Patient return if any concerns. Impression: 1. Mild dehydration. 2, Diabetic ketoacidosis 3. Diabetes type 1 4. Cyclic vomiting- 5. History of diabetic gastroparesis 6. History of polysubstance abuse 7. History of noncompliance with medical regimen [] Dragon Disclaimer: Dragon Disclaimer: This electronic medical record was generated, in whole or in part, using a voice recognition dictation system. Departure Departure: Referrals: PCP,BAY (PCP) YELENA HENRY MD Apr 22, 2021 20:42
[2021-04-22] MEDS: ONDANSETRON PF 4 MG/2 ML VIAL. IVP ONE (21:26)
[2021-04-22] MEDS: FAMOTIDINE 20 MG/2 ML VIAL IVP ONE (21:26)
[2021-04-22] MEDS: KETOROLAC 30 MG/ML VIAL. IVP ONE (21:26)
[2021-04-22] MEDS: IV NORMAL SALINE 1,000ML 1,000 ML IV SCH (21:26)
[2021-04-22 21:32] LABS: BASO # 0.1 x10^3/uL (0.0-0.2); BASO % 1 % (0-3); EOS # 0.2 x10^3/uL (0.0-0.7); EOS % 2 % (0-3); HEMATOCRIT 36.4 % (36.0-47.0); HEMOGLOBIN 12.2 g/dL (12.0-15.5); LYMPH # 1.6 x10^3/uL (1.0-4.8); LYMPH % 23 % (24-48); MEAN CORPUSCULAR HEMOGLOBIN 30 pg (25-35); MEAN CORPUSCULAR HGB CONC 33 g/dL (31-37); MEAN CORPUSCULAR VOLUME 89 fL (79-100); MONO # 0.5 x10^3/uL (0.0-1.1); MONO % 7 % (0-9); NEUT # 4.6 x10^3uL (1.8-7.7); NEUT % 66 % (31-73); PLATELET COUNT 316 x10^3/uL (140-400); RED BLOOD COUNT 4.08 x10^6/uL (3.50-5.40); RED CELL DISTRIBUTION WIDTH 13.6 % (11.5-14.5); WHITE BLOOD COUNT 6.9 x10^3/uL (4.0-11.0)
[2021-04-22 21:48] LABS: CALCIUM 8.7 mg/dL (8.5-10.1); CREATININE 0.7 mg/dL (0.6-1.0); GFR 98.9
[2021-04-22 21:55] LABS: ALBUMIN 3.4 g/dL (3.4-5.0); DIRECT BILIRUBIN 0.1 mg/dL (0.0-0.2); TOTAL BILIRUBIN 0.5 mg/dL (0.2-1.0); TOTAL PROTEIN 6.9 g/dL (6.4-8.2)
--- NOTE | 2021-04-22 22:53 | RAD ---
Study: XR ABDOMEN COMP ACUTE Indication: Abdominal pain. Vomiting. Comparison: 04/07/2021 Findings: The cardiomediastinal silhouette and lyndsay are within normal limits. No localized airspace opacity, pl eural effusion or pneumothorax. No free air under the diaphragm. The bowel gas pattern is nonobstructive. Mild/moderate volume coloni c stool. Unchanged foci of mineralization within the right hemipelvis. Transitional lumbosacral anato my. Impression: 1. Mild/moderate degree of constipation. The bowel gas pattern is nonobstructive. 2. No acute radiographic abnormality of the chest. Electronically signed by: CHIQUITA WEST MD (04/22/2021 10:50 PM) [facility]
[2021-04-23] VITALS: BP 158/92
[2021-04-23] MEDS ORDERED: PROCHLORPERAZINE 10 MG/2 ML VIAL. ONE (00:23)
[2021-04-23] MEDS: PROCHLORPERAZINE 10 MG/2 ML VIAL. IM ONE (00:25)
[2021-04-23] MEDS: diphenhydrAMINE 50 MG/ML VIAL IM ONE (01:00)
== END 2021-04-23 00:29 | disposition home or self-care (01) ==
LOC: ER 20:32
DX: E86.0 Dehydration (principal); E10.10 Type 1 diabetes mellitus with ketoacidosis without coma; F19.10 Other psychoactive substance abuse, uncomplicated; R11.2 Nausea with vomiting, unspecified; F17.210 Nicotine dependence, cigarettes, uncomplicated; F12.10 Cannabis abuse, uncomplicated; F15.10 Other stimulant abuse, uncomplicated; K59.00 Constipation, unspecified; Z88.6 Allergy status to analgesic agent
CPT/HCPCS: 36415; 74022; 80048; 80076; 82150; 82550; 82947; 83690; 84484; 85025; 96361; 96372; 96374; 96375; 99284; J0780; J1885; J2405; J3490; J7030

== ENCOUNTER 2021-05-04 16:12 | Emergency (ER) | payer SELFPAY ==
[~2021-05-04] VITALS: Ht 172.7 cm; Wt 58.0 kg
[2021-05-04] MEDS ORDERED: KETOROLAC 15 MG/ML VIAL. IVP ONE (16:30)
[2021-05-04] MEDS ORDERED: FAMOTIDINE 20 MG/2 ML VIAL IVP ONE (16:30)
[2021-05-04] MEDS ORDERED: ONDANSETRON PF 4 MG/2 ML VIAL. IVP ONE (16:30)
[2021-05-04] MEDS ORDERED: IV NORMAL SALINE 1,000ML 1,000 ML IV ONE ×2 (16:30→18:00)
[2021-05-04 16:52] LABS: BASO # 0.1 x10^3/uL (0.0-0.2); BASO % 1 % (0-3); EOS % 0 % (0-3); HEMOGLOBIN 14.3 g/dL (12.0-15.5); LYMPH % 9 % (24-48); MEAN CORPUSCULAR HEMOGLOBIN 30 pg (25-35); MEAN CORPUSCULAR HGB CONC 33 g/dL (31-37); MEAN CORPUSCULAR VOLUME 90 fL (79-100); MONO # 0.1 x10^3/uL (0.0-1.1); MONO % 1 % (0-9); NEUT # 9.4 x10^3uL (1.8-7.7); NEUT % 89 % (31-73); PLATELET COUNT 320 x10^3/uL (140-400); RED BLOOD COUNT 4.78 x10^6/uL (3.50-5.40); RED CELL DISTRIBUTION WIDTH 13.7 % (11.5-14.5); WHITE BLOOD COUNT 10.5 x10^3/uL (4.0-11.0)
[2021-05-04 17:28] LABS: PREG TEST PT QUAL NEGATIVE (NEG)
[2021-05-04 17:36] LABS: CALCIUM 9.6 mg/dL (8.5-10.1); CREATININE 0.9 mg/dL (0.6-1.0); POTASSIUM 5.4 mmol/L (3.5-5.1)
[2021-05-04 17:42] LABS: ALBUMIN 4.2 g/dL (3.4-5.0); ALBUMIN/GLOBULIN RATIO 1.1 (1.0-1.7); MAGNESIUM 2.2 mg/dL (1.8-2.4); TOTAL BILIRUBIN 0.8 mg/dL (0.2-1.0)
[2021-05-04] MEDS ORDERED: INSULIN LISPRO 300 UNITS/3 ML VIAL. SQ ONE (18:00)
[2021-05-04] MEDS ORDERED: METOCLOPRAMIDE HCL 10 MG/2 ML VIAL. IVP ONE (18:45)
[2021-05-04] MEDS ORDERED: diphenhydrAMINE 50 MG/ML VIAL IVP ONE (18:45)
[2021-05-04 19:47] VITALS: BP 153/106
[2021-05-04] MEDS ORDERED: ONDA4TAB12 PO (20:00)
[2021-05-04] MEDS ORDERED: METO10TA81 PO (20:00)
--- NOTE | 2021-05-04 20:01 | PHYS DOC ---
Past History Past Medical History: Anxiety, Constipation, Diabetes, Ovarian Cyst, Other Additional Past Medical Histor: gastroparesis, drug abuse Past Surgical History: Other Additional Past Surgical Histo: ovarian cysts removed Smoking: Cigarettes, Less than 1pk/day Alcohol Use: None Drug Use: Marijuana, Methamphetamine General Adult EDM: Chief Complaint: NAUSEA/VOMITING/DIARRHEA HPI: HPI: 30-year-old female presents via EMS with report of nausea and vomiting with associated high blood sugar which became worse today. Patient has history of multiple episodes for same. Patient does report diabetes. Reports history of gastroparesis. Patient also uses marijuana. Patient reports she is currently out of her nausea medication for gastroparesis. Patient reports blood sugars have been running high recently. Denies . Denies dysuria. Denies known sick contacts. Review of Systems: Review of Systems: Constitutional: Denies fever or chills Eyes: Denies redness or eye pain HENT: Denies nasal congestion or sore throat Respiratory: Denies cough or shortness of breath Cardiovascular: Denies chest pain or palpitations GI: Reports abdominal pain, nausea, and vomiting : Denies dysuria or hematuria Musculoskeletal: Denies back pain or joint pain Integument: Denies rash or skin lesions Neurologic: Denies headache, focal weakness or sensory changes Complete systems were reviewed and found to be within normal limits, except as documented in this note. Current Medications: Current Meds: Current Medications Medications (Trade) Dose Ordered Sig/Chevy Start Time Stop Time Status Last Admin Dose Admin Diphenhydramine HCl (Benadryl) 25 mg 1X ONCE 05/04/21 18:45 05/04/21 18:52 DC 05/04/21 18:54 25 MG Famotidine (Pepcid Vial) 20 mg 1X ONCE 05/04/21 16:30 05/04/21 16:31 DC 05/04/21 16:56 20 MG Insulin Human Lispro (HumaLOG) 12 units 1X ONCE 05/04/21 18:00 05/04/21 18:02 DC 05/04/21 18:10 12 UNITS Ketorolac Tromethamine (Toradol 15mg Vial) 15 mg 1X ONCE 05/04/21 16:30 05/04/21 16:58 DC 05/04/21 16:56 15 MG Metoclopramide HCl (Reglan Vial) 10 mg 1X ONCE 05/04/21 18:45 05/04/21 18:52 DC 05/04/21 18:54 10 MG Ondansetron HCl (Zofran) 4 mg 1X ONCE 05/04/21 16:30 05/04/21 16:31 DC 05/04/21 16:56 4 MG Sodium Chloride 1,000 ml @ 1,000 mls/hr 1X ONCE 05/04/21 18:00 05/04/21 18:59 DC 05/04/21 18:06 1,000 MLS/HR Allergies: Allergies: Allergies Coded Allergies Type Severity Reaction Last Updated Verified acetaminophen Allergy Intermediate HIVES 04/22/21 Yes adhesive tape Allergy Intermediate 04/22/21 Yes Physical Exam: PE: Constitutional: Well developed, well nourished, no acute distress, non-toxic appearance HENT: Normocephalic, atraumatic, mucous membranes dry Eyes: Conjunctiva normal, no discharge Neck: Normal range of motion, no tenderness, supple Lungs & Thorax: No respiratory distress, equal chest rise and fall Abdomen: Soft, diffuse tenderness, no guarding, no rebound tenderness, no distention Skin: Warm, dry, no erythema, no rash Back: No tenderness, no CVA tenderness Extremities: No tenderness, ROM intact, no edema Neurologic: Alert and oriented X 3, no focal deficits noted Psychologic: Affect normal, judgment normal Current Patient Data: Labs: Laboratory Tests Test 05/04/21 16:30 05/04/21 16:57 05/04/21 18:43 05/04/21 19:52 White Blood Count 10.5 x10^3/uL (4.0-11.0) Red Blood Count 4.78 x10^6/uL (3.50-5.40) Hemoglobin 14.3 g/dL (12.0-15.5) Hematocrit 43.0 % (36.0-47.0) Mean Corpuscular Volume 90 fL (79-100) Mean Corpuscular Hemoglobin 30 pg (25-35) Mean Corpuscular Hemoglobin Concent 33 g/dL (31-37) Red Cell Distribution Width 13.7 % (11.5-14.5) Platelet Count 320 x10^3/uL (140-400) Neutrophils (%) (Auto) 89 % (31-73) H Lymphocytes (%) (Auto) 9 % (24-48) L Monocytes (%) (Auto) 1 % (0-9) Eosinophils (%) (Auto) 0 % (0-3) Basophils (%) (Auto) 1 % (0-3) Neutrophils # (Auto) 9.4 x10^3uL (1.8-7.7) H Lymphocytes # (Auto) 1.0 x10^3/uL (1.0-4.8) Monocytes # (Auto) 0.1 x10^3/uL (0.0-1.1) Eosinophils # (Auto) 0.0 x10^3/uL (0.0-0.7) Basophils # (Auto) 0.1 x10^3/uL (0.0-0.2) Sodium Level 133 mmol/L (136-145) L Potassium Level 5.4 mmol/L (3.5-5.1) H Chloride Level 92 mmol/L (98-107) L Carbon Dioxide Level 18 mmol/L (21-32) L Anion Gap 23 (6-14) H Blood Urea Nitrogen 31 mg/dL (7-20) H Creatinine 0.9 mg/dL (0.6-1.0) Estimated GFR (Cockcroft-Gault) 74.0 BUN/Creatinine Ratio 34 (6-20) H Glucose Level 419 mg/dL (70-99) H Calcium Level 9.6 mg/dL (8.5-10.1) Magnesium Level 2.2 mg/dL (1.8-2.4) Total Bilirubin 0.8 mg/dL (0.2-1.0) Aspartate Amino Transferase (AST) 17 U/L (15-37) Alanine Aminotransferase (ALT) 23 U/L (14-59) Alkaline Phosphatase 105 U/L (46-116) Total Protein 8.0 g/dL (6.4-8.2) Albumin 4.2 g/dL (3.4-5.0) Albumin/Globulin Ratio 1.1 (1.0-1.7) Lipase 36 U/L (73-393) L Serum Test, Qualitative Negative (NEG) Acetone Level Neg (NEG) Glucose (Fingerstick) 370 mg/dL (70-99) H 420 mg/dL (70-99) H 313 mg/dL (70-99) H Vital Signs: Vital Signs Date Time Temp Pulse Resp B/P (MAP) Pulse Ox O2 Delivery O2 Flow Rate FiO2 05/04/21 19:47 122 16 153/106 (122) 99 Room Air 05/04/21 16:33 98.4 EKG: EKG: [] Radiology/Procedures: Radiology/Procedures: [] Heart Score: C/O Chest Pain: N/A Course & Med Decision Making: Course & Med Decision Making Pertinent Lab studies reviewed. (See chart for details) Patient with chronic abdominal pain and gastroparesis presents with intractable nausea and vomiting and report of elevated blood sugar that became worse today. Patient has been in the emergency department several times for similar. Symptomatic treatment provided. IV fluid hydration given. Labs obtained and posted to chart. Hyperglycemia addressed. Acetone negative. Patient able to provide urine. UA with hematuria without signs of infection. UDS positive for methamphetamines. Per [employer] review patient has had recent CT imaging on 03/29/2021 which noted a intrarenal 3 mm calculus on left and signs of constipation. Patient also has had an acute abdominal series x-ray that was obtained on 04/22/21 with signs of constipation again without other abnormality. There is a possibility that patient is passing renal calculi however she denies any back pain. A 3 mm stone will pass on its own. Decision that risk of exposure to radiation by obtaining further imaging outweighs the benefit. Patient reports interval improvement of symptoms. Patient stable for discharge with outpatient follow-up with PCP/GI. GI referral provided. Discussed findings and plan with patient, who acknowledges understand ing and agreement. Annelise Disclaimer: Annelise Disclaimer: This electronic medical record was generated, in whole or in part, using a voice recognition dictation system. Departure Departure: Impression: Primary Impression: Intractable nausea and vomiting Additional Impressions: Chronic abdominal pain Hyperglycemia Disposition: HOME / SELF CARE / HOMELESS Condition: IMPROVED Referrals: PCP,BAY (PCP) JESSICA GODINEZ MD Patient Instructions: Chronic Pain, Gastroparesis, Hyperglycemia, [id number], Nausea and Vomiting, [id number] Additional Instructions: Please follow closely with your doctor regarding your chronic pain and nausea/vomiting. Scripts Ondansetron (ONDANSETRON ODT) 4 Mg Tab.rapdis 1 TAB PO PRN Q6-8HRS PRN for NAUSEA, #16 TAB Prov: VANESSA OLIVER DO 05/04/21 Metoclopramide Hcl (REGLAN) 10 Mg Tablet 1 TAB PO QID for Gastroparesis for 30 Days, #60 TAB 0 Refills before food and bedtime Prov: VANESSA OLIVER DO 05/04/21 VANESSA OLIVER DO May 04, 2021 20:01
[2021-05-04 20:34] LABS: BILIRUBIN,URINE NEG (NEG); CLARITY,URINE CLEAR; COLOR,URINE YELLOW; GLUCOSE,URINE >=1000 mg/dL (NEG)
[2021-05-04 20:35] LABS: NITRITE,URINE NEG (NEG); UROBILINOGEN,URINE 0.2 mg/dL (0.2 mg/dL)
[2021-05-04 20:36] LABS: BACTERIA,URINE 0 /HPF (0-FEW); RBC,URINE >40 /HPF (0-2); SQUAMOUS EPITHELIAL CELL,UR FEW /LPF; WBC,URINE 0 /HPF (0-4)
[2021-05-04 20:43] LABS: AMPHETAMINE/METHAMPHETAMINE POS (NEG); BARBITURATES NEG (NEG); BENZODIAZEPINES NEG (NEG); CANNABINOIDS NEG (NEG); COCAINE NEG (NEG); METHADONE NEG (NEG); OPIATES NEG (NEG); PHENCYCLIDINE NEG (NEG)
== END 2021-05-04 20:06 | disposition home or self-care (01) ==
LOC: ER 16:12
DX: E11.65 Type 2 diabetes mellitus with hyperglycemia (principal); R11.2 Nausea with vomiting, unspecified; R10.84 Generalized abdominal pain; G89.29 Other chronic pain; F41.9 Anxiety disorder, unspecified; F17.210 Nicotine dependence, cigarettes, uncomplicated; Z88.6 Allergy status to analgesic agent; Z88.8 Allergy status to other drugs, medicaments and biological substances
CPT/HCPCS: 36415; 80053; 80307; 81001; 82010; 82947; 83690; 83735; 84703; 85025; 96361; 96372; 96374; 96375; 99284; J1200; J1815; J1885; J2405; J2765; J3490; J7030

== ENCOUNTER 2021-05-06 01:27 | Inpatient (IN) | payer SELFPAY ==
[~2021-05-06] VITALS: Ht 167.6 cm; Wt 55.9 kg
[2021-05-06] VITALS (12 sets, daily range): BP systolic 96–137; BP diastolic 52–87
--- NOTE | 2021-05-06 01:38 | PHYS DOC ---
Past History Past Medical History: Anxiety, Constipation, Diabetes, Ovarian Cyst, Other Additional Past Medical Histor: gastroparesis, drug abuse Past Surgical History: Other Additional Past Surgical Histo: ovarian cysts removed Smoking: Cigarettes, Less than 1pk/day Alcohol Use: None Drug Use: Marijuana, Methamphetamine Adult General HPI HPI Patient is a 30-year-old female with a past medical history significant for insulin-dependent diabetes who presents to the emergency department with a chief complaint of hyperglycemia with blood sugar at home around 400 for the last couple days despite taking her insulin, nonbloody nonbilious emesis with last episode at home before coming into the emergency department. Denies any recent travel, traumas, fevers, chest pain, shortness of breath, other abdominal pain outside some cramping when she vomits, dysuria, hematuria, blood in the stool or diarrhea. States she does have some generalized body aches. Denies any known ill contacts. Review of Systems Review of Systems Review of systems otherwise unremarkable except noted in HPI Allergies Allergies Allergies Coded Allergies Type Severity Reaction Last Updated Verified acetaminophen Allergy Intermediate HIVES 04/22/21 Yes adhesive tape Allergy Intermediate 04/22/21 Yes Physical Exam Physical Exam Constitutional: Well developed, well nourished, no acute distress, non-toxic appearance. [] HENT: Normocephalic, atraumatic, bilateral external ears normal, oropharynx moist, no oral exudates, nose normal. [] Eyes: conjunctiva normal, no discharge. [] Neck: Normal range of motion, no tenderness, supple, no stridor. [] Cardiovascular:Heart rate regular rhythm, no murmur [] Lungs & Thorax: Bilateral breath sounds clear to auscultation [] Abdomen: Bowel sounds normal, soft, no tenderness, no masses, no pulsatile masses. [] Skin: Warm, dry, no erythema, no rash. [] Back: no CVA tenderness. [] Extremities: No tenderness, no cyanosis, no clubbing, ROM intact, no edema. [] Neurologic: Alert and oriented X 3, no focal deficits noted. [] Psychologic: Affect normal, judgement normal, mood normal. [] EKG EKG [] Radiology/Procedures Radiology/Procedures [] Chest AP portable at 0319: Reason for examination: DKA workup. Comparison is made to previous study dated 11/30/2020. The heart size is normal. Mediastinum is unremarkable. Lung huynh show hazy opacity in the right lower lobe suspicious of pneumonia. No acute bony abnormalities are seen. Impression: Hazy opacity in the right lower lobe suspicious for pneumonia. Electronically signed by: Krys Villa MD (05/06/2021 4:40 AM) [facility] Heart Score C/O Chest Pain: No Risk Factors: Risk Factors: DM, Current or recent (<one month) smoker, HTN, HLP, family history of CAD, obesity. Risk Scores: Risk Factors: DM, Current or recent (<one month) smoker, HTN, HLP, family history of CAD, obesity. Course & Med Decision Making Course & Med Decision Making Patient is a 30-year-old female with diabetes, who presents with chief complaint of hyperglycemia, nausea and vomiting Vital signs notable for sinus tachycardia. Physical exam noted above. Patient placed on the monitor with IV access established and IV fluid begun. VBG with a pH of 7.263, bicarb of 9.5 and a lactate of 2.6 Chemistry notable for pseudohyponatremia, mild hyperkalemia to 5.7, creatinine of 1.1, phosphorus of 5, and normal dioxide of 9. Patient continued on IV lactated Ringer's and started on IV insulin drip. Chest x-ray suspicious for pneumonia. Given dose of Rocephin in the ED. Added azithromycin. Discussed patient with Dr. Pereira for admission to [facility] for diabetic ketoacidosis, and pneumonia.. Dr. Pereira agreed, and accepted patient to the ICU at [facility]. Dragon Disclaimer Dragevelio Disclaimer This electronic medical record was generated, in whole or in part, using a voice recognition dictation system. Departure Departure: Impression: Primary Impression: Diabetic ketoacidosis associated with type 1 diabetes mellitus Additional Impressions: Hyperphosphatemia Pneumonia Disposition: ADMITTED INPATIENT Admitting Physician: Justin Pereira Condition: IMPROVED Referrals: PCP,NO (PCP) Problem Qualifiers TANIKA CAMARENA MD May 06, 2021 01:38
[2021-05-06] MEDS ORDERED: METOCLOPRAMIDE HCL 10 MG/2 ML VIAL. IVP ONE (02:00)
[2021-05-06] MEDS ORDERED: ONDANSETRON PF 4 MG/2 ML VIAL. IVP ONE (02:00)
[2021-05-06] MEDS ORDERED: IV RINGERS SOLUTION,LACTATED 1,000 ML IV ONE ×2 (02:00→03:00)
[2021-05-06 02:24] LABS: CALCIUM 9.1 mg/dL (8.5-10.1); CREATININE 1.1 mg/dL (0.6-1.0); GFR 58.7; POTASSIUM 5.7 mmol/L (3.5-5.1)
[2021-05-06 02:37] LABS: MAGNESIUM 2.1 mg/dL (1.8-2.4)
[2021-05-06] MEDS ORDERED: KETOROLAC 15 MG/ML VIAL. IVP ONE (03:00)
[2021-05-06] MEDS ORDERED: INSULIN REGULAR VIAL 100 UNIT in IV NORMAL SALINE 100ML 100 ML IV PRN ×2 (03:00→10:00)
[2021-05-06] MEDS ORDERED: IV NORMAL SALINE 100ML 100 ML ONE (03:19)
[2021-05-06 03:25] LABS: BASO # 0.1 x10^3/uL (0.0-0.2); BASO % 1 % (0-3); EOS % 0 % (0-3); HEMATOCRIT 39.4 % (36.0-47.0); HEMOGLOBIN 12.8 g/dL (12.0-15.5); LYMPH # 1.3 x10^3/uL (1.0-4.8); LYMPH % 9 % (24-48); MEAN CORPUSCULAR HEMOGLOBIN 30 pg (25-35); MEAN CORPUSCULAR HGB CONC 33 g/dL (31-37); MEAN CORPUSCULAR VOLUME 91 fL (79-100); MONO # 0.4 x10^3/uL (0.0-1.1); MONO % 3 % (0-9); NEUT % 87 % (31-73); PLATELET COUNT 365 x10^3/uL (140-400); RED BLOOD COUNT 4.31 x10^6/uL (3.50-5.40); RED CELL DISTRIBUTION WIDTH 13.5 % (11.5-14.5); WHITE BLOOD COUNT 13.9 x10^3/uL (4.0-11.0)
[2021-05-06] MEDS ORDERED: IV NORMAL SALINE 50ML 50 ML ONE (03:38)
[2021-05-06] MEDS ORDERED: cefTRIAXone SODIUM 1 GM VIAL ONE (03:38)
[2021-05-06] MEDS ORDERED: MORPHINE SULFATE 4 MG/ML DISP.SYRIN. IV ONE (04:00)
[2021-05-06] MEDS ORDERED: METOCLOPRAMIDE HCL 10 MG/2 ML VIAL. IVP PRN (04:15)
[2021-05-06] MEDS ORDERED: ONDANSETRON PF 4 MG/2 ML VIAL. IVP PRN (04:15)
--- NOTE | 2021-05-06 04:15 | NUR ---
Pt was admitted from ER to ICU bed 2 via [facility] accompanied by EMS & nursing staff. Pt transferred from rney to bed x2 assist. Pt is A&Ox4 but drowsy, falling back to sleep easily. Pt with DKA, N/V and Abd. pain. Admission assessment completed. Insulin gtt infusing per Glucostabilzer. Pt placed on Telemetry, Stach noted on monitor with rates in the 130's. Health history & home medications reviewed with pt. SCDs for VTE. Pt without Covid vaccine. Pt lives at home with Mother-Deepti. Pt was given written information regarding hospital policies, unit procedures and contact persons. Valuables were checked and left at bedside. Dr. Pereira called for orders, DKA order set. Call light with reach.
[2021-05-06 04:28] LABS: BILIRUBIN,URINE NEG (NEG); CLARITY,URINE CLEAR; COLOR,URINE YELLOW; GLUCOSE,URINE 500 mg/dL (NEG)
[2021-05-06 04:30] LABS: BACTERIA,URINE FEW /HPF (0-FEW); NITRITE,URINE NEG (NEG); RBC,URINE 0 /HPF (0-2); SQUAMOUS EPITHELIAL CELL,UR FEW /LPF; UROBILINOGEN,URINE 0.2 mg/dL (0.2 mg/dL)
--- NOTE | 2021-05-06 04:43 | RAD ---
Chest AP portable at 0319: Reason for examination: DKA workup. Comparison is made to previous study dated 11/30/2020. The heart size is normal. Mediastinum is unremarkable. Lung huynh show hazy opacity in the right low er lobe suspicious of pneumonia. No acute bony abnormalities are seen. Impression: Hazy opacity in the right lower lobe suspicious for pneumonia. Electronically signed by: Krys Villa MD (05/06/2021 4:40 AM) JULIANNA
[2021-05-06] MEDS ORDERED: POTASSIUM CHLORIDE 10MEQ 100 ML IV PRN ×4 (04:45)
[2021-05-06] MEDS: IV NORMAL SALINE 1,000ML 1,000 ML IV SCH ×3 (05:18→09:20)
[2021-05-06] MEDS ORDERED: AZITHROMYCIN 250 MG TABLET. PO ONE (05:30)
--- NOTE | 2021-05-06 05:42 | EKG ---
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
[2021-05-06 08:36] LABS: CALCIUM 7.3 mg/dL (8.5-10.1); CREATININE 1.1 mg/dL (0.6-1.0); GFR 58.7; POTASSIUM 4.3 mmol/L (3.5-5.1)
[2021-05-06] MEDS: KETOROLAC 15 MG/ML VIAL. IVP PRN ×2 (12:16→20:57)
[2021-05-06 12:35] LABS: CALCIUM 7.5 mg/dL (8.5-10.1); CREATININE 0.9 mg/dL (0.6-1.0); POTASSIUM 4.3 mmol/L (3.5-5.1)
[2021-05-06] MEDS ORDERED: DEXTROSE 50% 25 GM / 50ML DISP.SYRIN. IV PRN (15:30)
[2021-05-06] MEDS ORDERED: ONDANSETRON ODT 4 MG TAB.RAPDIS PO PRN (15:30)
--- NOTE | 2021-05-06 16:04 | HP ---
ADMIT DATE: 05/06/2021 HISTORY OF PRESENT ILLNESS: The patient is a 30-year-old female patient who yet again came to the emergency room with a complaint of hyperglycemia with a blood sugar at home around 400 for the last couple of days despite taking her insulin. She has nonbloody, nonbilious emesis with the last episode at home before coming into the Emergency Department. She denied any recent travel, trauma, fever, chest pain, shortness of breath. She does complain of some cramping abdominal pain when she vomits. Denied any dysuria, hematuria, blood in the stool or diarrhea. She did complain of generalized abdominal aches. She was evaluated in the emergency room. Her lab work showed that her serum sodium is 126, potassium 5.7, chloride 91, bicarbonate 9, anion gap of 26, BUN 33, creatinine 1.1. Estimated GFR was 58 mL per minute. Her glucose is 480. Calcium was 9.1, phosphorus 5, magnesium was 2.1. Her white cell count was 13,900, hemoglobin 12.8, hematocrit 39, MCV 91, and platelet count of 365,000 with a manual differential of 87% polymorphs, 9% lymphocytes. Blood gases showed a pH of 7.27, pCO2 of 21, pO2 of 55, bicarbonate 10, oxygen saturation was 86% on FiO2 of 21%. Her urinalysis showed the urine was yellow, clear with a pH of 5, specific gravity of 1.020, there is small amount of protein, large amount of glucose, large amount of ketones, moderate amount of blood, negative for nitrite, leukocyte esterase, 0 rbc's, 5-10 wbc's and very few bacteria. Her chest x-ray showed that the heart size is normal. Mediastinum is unremarkable. Lung huynh show hazy opacity in the right lower lobe, suspicious for pneumonia. No acute bony abnormalities are seen. The patient was admitted with again diabetic ketoacidosis. She was started on IV fluid and insulin drip. She has also had dilutional hyponatremia, hyperkalemia and acute kidney injury. We will continue with the DKA protocol and also continue with IV Zithromax and ceftriaxone for presumed pneumonia. PAST MEDICAL HISTORY: Significant for type 1 diabetes, diabetic gastroparesis, multiple admissions for diabetic ketoacidosis, also has peripheral neuropathy, polysubstance abuse including methamphetamine, although unfortunately no toxic screen was done this time. PAST SURGICAL HISTORY: Significant for Port-A-Cath placement and removal, incision and drainage of left axillary abscess, multiple EGDs and gastric emptying studies. FAMILY HISTORY: Noncontributory. SOCIAL HISTORY: She apparently lives with her mother. She is not working. She claims that she does not smoke, drink alcohol or do any recreational drugs. REVIEW OF SYSTEMS: As per history of present illness. PHYSICAL EXAMINATION: GENERAL: On arrival, the patient was somewhat pale, but no jaundice, cyanosis or thyromegaly. No jugular distention. No limb edema. VITAL SIGNS: Her heart rate was 117, blood pressure was 97/52, temperature was 97.6, respiratory rate was 20, and oxygen saturation 100% on room air. HEENT: Examination of the head, eyes, nose and throat: Normocephalic, atraumatic. NECK: Supple. HEART: Showed normal first and second heart sounds. No gallop, rub or murmur. CHEST: Clear to auscultation. No crepitation or rhonchi. ABDOMEN: Distended, scaphoid, soft, nontender. NEUROLOGIC: She was awake, alert, responding appropriately. Cranial nerves intact. She moves extremities without difficulty. LABORATORY DATA: Her lab work on arrival showed a white cell count of 13,900, hemoglobin 12.8, hematocrit 39, MCV 91, platelet count 365,000. Her chemistry showed a serum sodium of 126, potassium 5.7, chloride 91, bicarbonate 9, anion gap of 26, BUN 33, creatinine 1.1. Estimated GFR was 58 mL per minute. Her glucose 480. Calcium was 9.1, phosphorus was 5, magnesium was 2.1. Troponin was less than 0.017. Urinalysis unremarkable. ASSESSMENT AND PLAN: The patient was admitted and started on IV fluids and insulin drip as per nursing protocol. She has received Rocephin and Zithromax for pneumonia, although I am not really convinced myself with that. She is afebrile. Chest was clear on clinical examination. In any case, we will continue with the insulin drip until her anion gap closes, then we will start her back on her insulin in the form of Lantus 20 units twice a day and insulin sliding scale before meals. Continue with IV antibiotics. Repeat her lab work tomorrow and she can be discharged home once she is able to tolerate her diet and the blood sugar is well controlled. JJ DR: Alyssa TID: [id number]
[2021-05-06 17:07] LABS: CALCIUM 7.5 mg/dL (8.5-10.1); CREATININE 0.9 mg/dL (0.6-1.0); POTASSIUM 4.6 mmol/L (3.5-5.1)
[2021-05-06] MEDS: METOCLOPRAMIDE 10 MG TABLET PO SCH ×2 (17:29→20:56)
[2021-05-06] MEDS: INSULIN LISPRO 300 UNITS/3 ML VIAL. SQ SCH (17:33)
[2021-05-06] MEDS: FAMOTIDINE 20 MG TABLET PO SCH (20:56)
[2021-05-06] MEDS: INSULIN GLARGINE SYRINGE. SQ SCH (21:00)
[2021-05-07] MEDS: IV NORMAL SALINE 1,000ML 1,000 ML IV SCH ×2 (03:43→10:48)
[2021-05-07 06:13] VITALS: BP 146/97
[2021-05-07 06:40] LABS: BASO # 0.1 x10^3/uL (0.0-0.2); BASO % 1 % (0-3); EOS # 0.1 x10^3/uL (0.0-0.7); EOS % 2 % (0-3); HEMATOCRIT 29.9 % (36.0-47.0); LYMPH # 2.9 x10^3/uL (1.0-4.8); LYMPH % 35 % (24-48); MEAN CORPUSCULAR HEMOGLOBIN 30 pg (25-35); MEAN CORPUSCULAR HGB CONC 33 g/dL (31-37); MEAN CORPUSCULAR VOLUME 89 fL (79-100); MONO # 0.6 x10^3/uL (0.0-1.1); MONO % 8 % (0-9); NEUT # 4.5 x10^3uL (1.8-7.7); NEUT % 55 % (31-73); PLATELET COUNT 261 x10^3/uL (140-400); RED BLOOD COUNT 3.36 x10^6/uL (3.50-5.40); RED CELL DISTRIBUTION WIDTH 13.5 % (11.5-14.5); WHITE BLOOD COUNT 8.3 x10^3/uL (4.0-11.0)
[2021-05-07 06:55] LABS: ALBUMIN 2.3 g/dL (3.4-5.0); CALCIUM 7.5 mg/dL (8.5-10.1); CREATININE 0.8 mg/dL (0.6-1.0); GFR 84.8; POTASSIUM 3.8 mmol/L (3.5-5.1); TOTAL BILIRUBIN 0.4 mg/dL (0.2-1.0); TOTAL PROTEIN 4.7 g/dL (6.4-8.2)
[2021-05-07] MEDS: INSULIN LISPRO 300 UNITS/3 ML VIAL. SQ SCH ×2 (08:55→11:57)
[2021-05-07] MEDS: INSULIN GLARGINE SYRINGE. SQ SCH (08:56)
[2021-05-07] MEDS: FAMOTIDINE 20 MG TABLET PO SCH (08:57)
[2021-05-07] MEDS ORDERED: AZITHROMYCIN 250 MG TABLET. PO SCH (09:00)
[2021-05-07] MEDS: METOCLOPRAMIDE 10 MG TABLET PO SCH ×2 (09:00→11:57)
--- NOTE | 2021-05-07 09:08 | NUR ---
NURSING-Pt PO dose of metaclopramide not given, as IV dosing for this AM already done.
[2021-05-07 10:45] VITALS: BP 125/81
[2021-05-07] MEDS: KETOROLAC 15 MG/ML VIAL. IVP PRN (12:01)
[2021-05-07] MEDS ORDERED: CEFD300C PO (13:44)
[2021-05-07] MEDS ORDERED: AZIT250T PO (13:44)
[2021-05-07] MEDS ORDERED: INSU100I13 SQ (13:49)
--- NOTE | 2021-05-07 13:59 | NUR ---
Discharge instructions covered with patient. All questions answered. Prescriptions given to patient. IV's discontinued. Pt is calling cab for transport home.
--- NOTE | 2021-05-07 14:23 | NUR ---
DISCHARGE-Patient ambulates under own power to front doors to cab for discharge. All possessions with patient at time of discharge.
--- NOTE | 2021-05-07 14:36 | DS ---
DATE OF DISCHARGE: 05/07/2021 HOSPITAL COURSE: The patient is a 30-year-old female patient with type 2 diabetes mellitus who was yet again admitted with DKA and questionable right lower lobe pneumonia. We did treat her with IV fluid and insulin drip as DKA protocol. She did actually very well. Her anion gap has closed and her kidney function has improved. Her BUN came down from 33-23 and her creatinine came down from 1.1-0.8. Her white cell count also came down from 13,900-8.3. She has remained afebrile throughout her stay and a decision was made to discharge her home to continue on oral antibiotic and to continue with her insulin regimen. PHYSICAL EXAMINATION: GENERAL: When I examined her this afternoon, she looked pale, no jaundice, cyanosis or thyromegaly. No jugular distention. No edema. VITAL SIGNS: Heart rate was 88, blood pressure is 125/81, temperature was 98.1, respiratory rate was 20 and oxygen saturation was 96% on room air. HEAD, EYES, EARS, NOSE AND THROAT: Showed normocephalic, atraumatic. NECK: Supple. HEART: Normal first and second heart sounds. No gallop, rub or murmur. CHEST: Clear to auscultation, no crepitation or rhonchi. ABDOMEN: Distended, soft, nontender, no guarding or rigidity. No organomegaly. All hernial orifice intact. Bowel sounds normal. NEUROLOGIC: She was grossly intact. LABORATORY DATA: This morning showed a white cell count of 8300, hemoglobin 10, hematocrit 30, MCV 89 and platelet count 261,000. Her chemistry showed a serum sodium 134, potassium 3.8, chloride 103, bicarbonate 19, anion gap of 12, BUN 23, creatinine 0.8. Estimated GFR was 84 mL per minute. Her glucose was 286, calcium was 7.5. Total bilirubin, AST, ALT, alkaline phosphatase were normal. Total protein was 4.7, albumin was 2.3. DISCHARGE MEDICATIONS: The patient was discharged home to continue on azithromycin 250 mg once a day for 3 days, cefdinir 300 mg capsule twice a day for 7 days, famotidine 20 mg twice a day. She is on Novolog insulin as insulin sliding scale and metoclopramide 10 mg before meals and bedtime, Zofran 4 mg every 6-8 hours. She should be also on Lantus insulin 20 units twice a day. FINAL DISCHARGE DIAGNOSES: Diabetic ketoacidosis, resolved; community-acquired pneumonia; type 1 diabetes mellitus; diabetic gastroparesis and diabetic peripheral neuropathy. BOAZ DR: Alyssa TID: [id number]
== END 2021-05-07 14:15 | disposition home or self-care (01) | DRG 637 ==
LOC: ER 01:27 → ICU 03:10 → 1 SOUTH 13:20
PROVIDERS: ADMIT Internal Medicine; ATTEND Internal Medicine
DX: E10.10 Type 1 diabetes mellitus with ketoacidosis without coma (principal); J18.9 Pneumonia, unspecified organism; E87.1 Hypo-osmolality and hyponatremia; N17.9 Acute kidney failure, unspecified; E10.43 Type 1 diabetes mellitus with diabetic autonomic (poly)neuropathy; F41.9 Anxiety disorder, unspecified; E83.39 Other disorders of phosphorus metabolism; E10.65 Type 1 diabetes mellitus with hyperglycemia; K31.84 Gastroparesis; E10.42 Type 1 diabetes mellitus with diabetic polyneuropathy; E87.5 Hyperkalemia; Z79.4 Long term (current) use of insulin; Z87.891 Personal history of nicotine dependence; Z88.6 Allergy status to analgesic agent; Z91.048 Other nonmedicinal substance allergy status
CPT/HCPCS: 36415; 71045; 80048; 80053; 81001; 82803; 82947; 83735; 84100; 84484; 85025; 87086; 93005; 96361; 96365; 96368; 96375; J0696; J1815; J1885; J2270; J2405; J2765; J3010; J7120; 99285-25; J7030

== ENCOUNTER 2021-05-10 20:25 | Emergency (ER) | payer SELFPAY ==
[~2021-05-10] VITALS: Ht 167.6 cm; Wt 55.9 kg
[~2021-05-10 20:25] MED LIST changes: +AZIT250T PO; +CEFD300C PO
--- NOTE | 2021-05-10 20:38 | PHYS DOC ---
Past History Past Medical History: Anxiety, Constipation, Diabetes, Ovarian Cyst, Other Additional Past Medical Histor: gastroparesis, drug abuse Past Surgical History: Other Additional Past Surgical Histo: ovarian cysts removed Smoking: Cigarettes, Less than 1pk/day Alcohol Use: None Drug Use: Marijuana, Methamphetamine General Adult EDM: Chief Complaint: HYPERGLYCEMIA HPI: HPI: "....I ve been puking all day... my sugars were to high to read.. I hurting in my chest and stomach.. so sick.. dry heaves now..." Patient is a 30 year old female who presents with above hx and complaints of nausea vomiting and hyperglycemia. Patient well-known to ED department for gastroparesis, poorly controlled diabetes, noncompliance with treatment regimen and polysubstance abuse. Patient presents with cyclic intractable nausea and vomiting. Patient denies any recent travel or specific ill contacts. Patient de nies any trauma. Patient does smoke tobacco and marijuana. Patient has long history of polysubstance abuse with preference towards methamphetamine. Patient currently follows with [facility] for care. Review of Systems: Review of Systems: Constitutional: Denies fever or chills Eyes: Denies change in visual acuity HENT: Denies nasal congestion or sore throat Respiratory: Denies cough or shortness of breath Cardiovascular: Complains of epigastric chest pain GI: Complains of epigastric abdominal pain, nausea, vomiting,. Denies bloody stools or diarrhea : Denies dysuria Musculoskeletal: Denies back pain or joint pain Integument: Denies rash Neurologic: Denies headache, focal weakness or sensory changes Endocrine: Denies polyuria or polydipsia Lymphatic: Denies swollen glands Psychiatric: Complains of depression and anxiety. Patient denies any suicidal or homicidal ideation Family History: Family History: Noncontributory to presentation Current Medications: Current Meds: See nursing for home meds Allergies: Allergies: Allergies Coded Allergies Type Severity Reaction Last Updated Verified acetaminophen Allergy Intermediate HIVES 05/10/21 Yes adhesive tape Allergy Intermediate 05/10/21 Yes Physical Exam: PE: Constitutional: in acute distress, ill in appearance. [] HENT: Normocephalic, atraumatic, bilateral external ears normal, oropharynx dry, no oral exudates, nose normal. [] Eyes: PERRLA, EOMI, conjunctiva normal, no discharge. [] Neck: Normal range of motion, no tenderness, supple, no stridor. [] Cardiovascular: Tachycardia heart rate regular rhythm, no murmur []. Monitor shows a sinus tachycardia with no acute morphology Lungs & Thorax: Bilateral breath sounds equal apex with scattered wheezes on auscultation [] Abdomen: Bowel sounds decreased, distended,, soft, generalized tenderness, no masses, no pulsatile masses. No focal areas of rebound. Skin: Warm, dry, no erythema, no rash. Tattoos. Old track lang Back: No tenderness, no CVA tenderness. [] Extremities: No tenderness, no cyanosis, no clubbing, ROM intact, no edema. No cellulitis. No cording appreciated. No psoas sign. Neurologic: Alert and oriented X 3, moves extremities on request, does have decreased plantar sensation but present,, no focal deficits noted. [] Psychologic: Affect anxious, judgement normal, mood depressed Current Patient Data: Vital Signs: Vital Signs Date Time Temp Pulse Resp B/P (MAP) Pulse Ox O2 Delivery O2 Flow Rate FiO2 05/10/21 20:31 97.6 28 156/95 (115) EKG: EKG: My interpretation EKG shows a sinus rhythm at 89 bpm. No acute morphology [] Radiology/Procedures: Radiology/Procedures: [][place] [address] IMAGING REPORT Signed PATIENT: CHALO RAYMUNDO ACCOUNT: [id number] : 1990 LOCATION: ER AGE: 30 SEX: F EXAM STATUS: REG ER ORD. PHYSICIAN: YELENA HENRY MD REASON: n/v, abd. pain PROCEDURE: ACUTE ABDOMEN SERIES EXAMINATION: XR ABDOMEN COMP ACUTE CLINICAL HISTORY: Nausea, vomiting, abdominal pain EXAM DATE/TIME: 05/10/2021 11:37 PM COMPARISON: Chest radiograph 05/06/2021, acute abdominal series 04/22/2021 FINDINGS: Lines, Tubes, and Devices: None. Cardiomediastinal Silhouette: Within normal limits. Lungs and Pleura: No definitive evidence of focal airspace consolidation or pleural effusion. Pulmonary vasculature unremarkable. Bones and Soft Tissues: Incomplete fusion of the posterior elements at L5 and hypertrophy of the right L5 transverse process with pseudoarthrosis at the sacrum. Abdomen: Moderate colonic stool, similar to slightly increased from prior study. Nonobstructive bowel gas pattern. No pathologic abdominal calcifications. IMPRESSION: Moderate colonic stool, similar to slightly increased from prior study. No definitive evidence of acute cardiopulmonary abnormality or significant interval change. Electronically signed by: Fan Matute DO (05/10/2021 11:56 PM) [facility] DICTATED AND SIGNED BY: FAN MATUTE DO DATE: 05/10/21 5731 CC: YELENA HENRY MD; PCP,NO ~MTH0 0 Heart Score: C/O Chest Pain: Yes HEART Score for Chest Pain: HEART Score for Chest Pain Response (Comments) Value History Slighlty/Non-Suspicious 0 ECG Normal 0 Age < 45 0 Risk Factors 1 or 2 Risk Factors 1 Troponin < Normal Limit 0 Total 1 Risk Factors: Risk Factors: DM, Current or recent (<one month) smoker, HTN, HLP, family history of CAD, obesity. Risk Scores: Score 0 - 3: 2.5% MACE over next 6 weeks - Discharge Home Score 4 - 6: 20.3% MACE over next 6 weeks - Admit for Clinical Observation Score 7 - 10: 72.7% MACE over next 6 weeks - Early Invasive Strategies Course & Med Decision Making: Course & Med Decision Making Pertinent Labs and Imaging studies reviewed. (See chart for details) Patient received Zofran and hydration. Normal saline and lactated Ringer's. Patient's overall symptoms gradually improved. Encourage patient stop smoking. Encourage patient stop using methamphetamine and marijuana. Patient advised that frequent marijuana use would could result in gastroparesis. Patient take ibuprofen for pain. May take Zofran 8 mg up to 4 times a day for active nausea and vomiting. Patient to push fruit juices. Patient follow-up primary care. Patient return if any concerns. Patient avoid illicit substances particularly methamphetamine and marijuana advised patient that daily marijuana use can result of an acute cyclic vomiting. Encourage patient to follow-up primary. Encourage patient stay on a clear fluid diet for the next 48 hours. Push fruit juices. Impression: 1. Abdomen pain 2. Cyclic vomiting 3. Dehydration 4. Diabetes 5. Polysubstance abuse ( drug screen positive for marijuana and amphetamine ) [] Dragevelio Disclaimer: Annelise Disclaimer: This electronic medical record was generated, in whole or in part, using a voice recognition dictation system. Departure Departure: Referrals: PCP,NO (PCP) Scripts Ondansetron Hcl (ZOFRAN) 4 Mg Tablet 8 MG PO QIDPRN for Active vomiting, #30 TAB Prov: YELENA HENRY MD 05/11/21 Abdirashidevelio Disclaimer This chart was dictated in whole or in part using Voice Recognition software in a busy, high-work load, and often noisy Emergency Department environment. It may contain unintended and wholly unrecognized errors or omissions. YELENA HENRY MD May 10, 2021 20:38
[2021-05-10] MEDS ORDERED: ONDANSETRON PF 4 MG/2 ML VIAL. IVP ONE (21:00)
[2021-05-10] MEDS ORDERED: SUCRALFATE 1 GM TABLET. PO ONE (21:00)
[2021-05-10] MEDS ORDERED: IV NORMAL SALINE 1,000ML 1,000 ML IV SCH (21:00)
[2021-05-10] MEDS ORDERED: FAMOTIDINE 20 MG/2 ML VIAL IVP ONE (21:00)
[2021-05-10] MEDS ORDERED: MORPHINE SULFATE 10 MG/ML SYRINGE. SQ ONE (21:15)
[2021-05-10 21:18] LABS: BASO # 0.1 x10^3/uL (0.0-0.2); BASO % 1 % (0-3); EOS % 1 % (0-3); HEMATOCRIT 39.2 % (36.0-47.0); HEMOGLOBIN 13.4 g/dL (12.0-15.5); LYMPH # 1.2 x10^3/uL (1.0-4.8); LYMPH % 20 % (24-48); MEAN CORPUSCULAR HEMOGLOBIN 30 pg (25-35); MEAN CORPUSCULAR HGB CONC 34 g/dL (31-37); MEAN CORPUSCULAR VOLUME 89 fL (79-100); MONO # 0.2 x10^3/uL (0.0-1.1); MONO % 4 % (0-9); NEUT # 4.5 x10^3uL (1.8-7.7); NEUT % 75 % (31-73); PLATELET COUNT 315 x10^3/uL (140-400); RED CELL DISTRIBUTION WIDTH 13.7 % (11.5-14.5); WHITE BLOOD COUNT 6.1 x10^3/uL (4.0-11.0)
[2021-05-10 21:36] LABS: ALBUMIN 3.8 g/dL (3.4-5.0); CALCIUM 8.9 mg/dL (8.5-10.1); CREATININE 0.6 mg/dL (0.6-1.0); DIRECT BILIRUBIN 0.2 mg/dL (0.0-0.2); GFR 118.2; POTASSIUM 3.8 mmol/L (3.5-5.1); TOTAL BILIRUBIN 0.6 mg/dL (0.2-1.0); TOTAL PROTEIN 7.4 g/dL (6.4-8.2)
[2021-05-10] MEDS ORDERED: MAGNESIUM HYDROXIDE 2,400 MG/30 ML ORAL.SUSP. PO ONE (22:00)
[2021-05-10] MEDS ORDERED: INSULIN REGULAR VIAL 100 UNIT in IV NORMAL SALINE 100ML 100 ML IV ONE (22:00)
--- NOTE | 2021-05-10 22:54 | EKG ---
[address] [address] Test Date: 2021-05-10 Test Time: 21:45:36 Pat Name: CHALO RAYMUNDO Department: Room: Gender: F Translator Interpreter: : 1990 Requested By: YELENA HENRY Order Number: [id number] Reading MD: Measurements Intervals [place] Rate: 89 P: 59 WA: 144 QRS: 64 QRSD: 84 T: 57 QT: 354 QTc: 432 Interpretive Statements SINUS RHYTHM NORMAL ECG RI6.02 No previous ECG available for comparison
[2021-05-10] MEDS ORDERED: IV RINGERS SOLUTION,LACTATED 1,000 ML IV ONE ×2 (23:00→23:30)
--- NOTE | 2021-05-10 23:58 | RAD ---
EXAMINATION: XR ABDOMEN COMP ACUTE CLINICAL HISTORY: Nausea, vomiting, abdominal pain EXAM DATE/TIME: 05/10/2021 11:37 PM COMPARISON: Chest radiograph 05/06/2021, acute abdominal series 04/22/2021 FINDINGS: Lines, Tubes, and Devices: None. Cardiomediastinal Silhouette: Within normal limits. Lungs and Pleura: No definitive evidence of focal airspace consolidation or pleural effusion. Pulmona ry vasculature unremarkable. Bones and Soft Tissues: Incomplete fusion of the posterior elements at L5 and hypertrophy of the righ t L5 transverse process with pseudoarthrosis at the sacrum. Abdomen: Moderate colonic stool, similar to slightly increased from prior study. Nonobstructive bowel gas pattern. No pathologic abdominal calcifications. IMPRESSION: Moderate colonic stool, similar to slightly increased from prior study. No definitive evidence of acute cardiopulmonary abnormality or significant interval change. Electronically signed by: Fan Salguero DO (05/10/2021 11:56 PM) [facility]
[2021-05-11 01:07] LABS: BARBITURATES NEG (NEG); BENZODIAZEPINES NEG (NEG); CANNABINOIDS POS (NEG); COCAINE NEG (NEG); METHADONE NEG (NEG); OPIATES POS (NEG); PHENCYCLIDINE NEG (NEG)
[2021-05-11 01:09] LABS: AMPHETAMINE/METHAMPHETAMINE POS (NEG)
[2021-05-11 01:25] LABS: BILIRUBIN,URINE NEG (NEG); CLARITY,URINE CLEAR; COLOR,URINE YELLOW; GLUCOSE,URINE 500 mg/dL (NEG)
[2021-05-11 01:26] LABS: BACTERIA,URINE FEW /HPF (0-FEW); NITRITE,URINE NEG (NEG); RBC,URINE 0 /HPF (0-2); SQUAMOUS EPITHELIAL CELL,UR MANY /LPF
[2021-05-11] MEDS ORDERED: ONDA4TAB7 PO (01:32)
[2021-05-11 01:50] VITALS: BP 148/92
== END 2021-05-11 01:55 | disposition home or self-care (01) ==
LOC: ER 20:25
DX: E86.0 Dehydration (principal); R11.15 Cyclical vomiting syndrome unrelated to migraine; E11.65 Type 2 diabetes mellitus with hyperglycemia; F19.10 Other psychoactive substance abuse, uncomplicated; R10.13 Epigastric pain; F12.10 Cannabis abuse, uncomplicated; F15.10 Other stimulant abuse, uncomplicated; F41.9 Anxiety disorder, unspecified; F17.210 Nicotine dependence, cigarettes, uncomplicated; Z88.8 Allergy status to other drugs, medicaments and biological substances
CPT/HCPCS: 36415; 74022; 80048; 80076; 80307; 81001; 81025; 82550; 82803; 83690; 84484; 85025; 93005; 96361; 96372; 96374; 96375; 99285; J2270; J2405; J3490; J7030; J7120

== ENCOUNTER 2021-05-12 12:03 | Inpatient (IN) | payer SELFPAY ==
[~2021-05-12] VITALS: Ht 167.6 cm; Wt 55.9 kg
[2021-05-12] VITALS (9 sets, daily range): BP systolic 101–120; BP diastolic 58–70
[2021-05-12] MEDS ORDERED: IV NORMAL SALINE 1,000ML 1,000 ML IV ONE (12:30)
[2021-05-12] MEDS ORDERED: ONDANSETRON PF 4 MG/2 ML VIAL. IVP ONE (12:30)
--- NOTE | 2021-05-12 12:38 | PHYS DOC ---
Past History Past Medical History: Anxiety, Constipation, Diabetes, Ovarian Cyst, Other Additional Past Medical Histor: gastroparesis, drug abuse Past Surgical History: Other Additional Past Surgical Histo: ovarian cysts removed Smoking: Cigarettes, Less than 1pk/day Alcohol Use: None Drug Use: Marijuana, Methamphetamine General Adult EDM: Chief Complaint: HYPERGLYCEMIA HPI: HPI: Patient is a 30 year old female who is known to this ER who presents with nausea/vomiting and epigastric abdominal pain that started 3 days ago. She was seen in this ER 3 days prior for same complaint. Patient reports vomiting numerous times today. Her pain is constant, there are no alleviating or aggravating factors. She was discharged on Monday with Zofran and reports that it is not helping her symptoms and reports no change in symptoms since Monday. LBM: yesterday. She has a history of gastroparesis, diabetes, and polysubstance abuse. She reports checking her BG at home and she took 6U of insulin at 0800. She denies fevers, diarrhea, sick contacts, travel exposures. Review of Systems: Review of Systems: Constitutional: Denies fever or chills Eyes: Denies change in visual acuity HENT: Denies nasal congestion or sore throat Respiratory: Denies cough or shortness of breath Cardiovascular: Denies chest pain or edema GI: Reports abdominal pain, nausea/vomiting. Denies diarrhea. : Denies dysuria Musculoskeletal: Denies back pain or joint pain Integument: Denies rash Neurologic: Denies headache, focal weakness or sensory changes Endocrine: Denies polyuria or polydipsia Lymphatic: Denies swollen glands Psychiatric: Denies depression or anxiety Current Medications: Current Meds: Current Medications Medications (Trade) Dose Ordered Sig/Chevy Start Time Stop Time Status Last Admin Dose Admin Ondansetron HCl (Zofran) 4 mg 1X ONCE 05/12/21 12:30 05/12/21 12:31 UNV Sodium Chloride 1,000 ml @ 1,000 mls/hr 1X ONCE 05/12/21 12:30 05/12/21 13:29 UNV Allergies: Allergies: Allergies Coded Allergies Type Severity Reaction Last Updated Verified acetaminophen Allergy Intermediate HIVES 05/12/21 Yes adhesive tape Allergy Intermediate 05/12/21 Yes Physical Exam: PE: Constitutional: Well developed, well nourished, no acute distress, non-toxic appearance. [] HENT: Normocephalic, atraumatic, oropharynx moist[] Cardiovascular:Heart rate tachycardic rhythm, no murmur [] Lungs & Thorax: Bilateral breath sounds clear to auscultation [] Abdomen: Bowel sounds hypoactive, soft, tenderness with palpation of all 4 quadrants, no masses, no pulsatile masses. [] Skin: Warm, dry, no erythema, no rash. [] Neurologic: Alert and oriented X 3, normal motor function, normal sensory function, no focal deficits noted. [] Psychologic: Affect normal, judgement normal, mood normal. [] Current Patient Data: Labs: Laboratory Tests Test 05/12/21 12:26 05/12/21 12:40 Glucose (Fingerstick) 420 mg/dL White Blood Count 9.0 x10^3/uL Red Blood Count 4.33 x10^6/uL Hemoglobin 13.3 g/dL Hematocrit 40.1 % Mean Corpuscular Volume 93 fL Mean Corpuscular Hemoglobin 31 pg Mean Corpuscular Hemoglobin Concent 33 g/dL Red Cell Distribution Width 13.9 % Platelet Count 412 x10^3/uL Neutrophils (%) (Auto) 80 % Lymphocytes (%) (Auto) 15 % Monocytes (%) (Auto) 4 % Eosinophils (%) (Auto) 0 % Basophils (%) (Auto) 1 % Neutrophils # (Auto) 7.2 x10^3uL Lymphocytes # (Auto) 1.3 x10^3/uL Monocytes # (Auto) 0.3 x10^3/uL Eosinophils # (Auto) 0.0 x10^3/uL Basophils # (Auto) 0.1 x10^3/uL Sodium Level 127 mmol/L Potassium Level 5.4 mmol/L Chloride Level 90 mmol/L Carbon Dioxide Level 9 mmol/L Anion Gap 28 Blood Urea Nitrogen 29 mg/dL Creatinine 1.0 mg/dL Estimated GFR (Cockcroft-Gault) 65.6 BUN/Creatinine Ratio 29 Glucose Level 402 mg/dL Calcium Level 8.7 mg/dL Phosphorus Level 3.0 mg/dL Total Bilirubin 0.8 mg/dL Aspartate Amino Transf (AST/SGOT) 22 U/L Alanine Aminotransferase (ALT/SGPT) 23 U/L Alkaline Phosphatase 89 U/L Total Protein 7.2 g/dL Albumin 3.6 g/dL Albumin/Globulin Ratio 1.0 Lipase 25 U/L Acetone Level Sm pos Current Medications Medications (Trade) Dose Ordered Sig/Chevy Route PRN Reason Start Time Stop Time Status Last Admin Dose Admin Sodium Chloride 1,000 ml @ 1,000 mls/hr 1X ONCE IV 05/12/21 12:30 05/12/21 13:29 DC 05/12/21 12:30 Ondansetron HCl (Zofran) 4 mg 1X ONCE IVP 05/12/21 12:30 05/12/21 12:34 DC 05/12/21 12:46 Insulin Human Regular 100 unit/ Sodium Chloride 101 ml @ 0 mls/hr CONT PRN PRN IV PER PROTOCOL 05/12/21 14:15 Sodium Chloride 0 ml @ As Directed STK-MED ONCE .ROUTE 05/12/21 14:16 05/12/21 14:16 DC Laboratory Tests Test 05/12/21 12:26 Glucose (Fingerstick) 420 mg/dL (70-99) H Vital Signs: Vital Signs Date Time Temp Pulse Resp B/P (MAP) Pulse Ox O2 Delivery O2 Flow Rate FiO2 05/12/21 12:16 98.6 125 15 148/92 (110) 96 Room Air EKG: EKG: [] Radiology/Procedures: Radiology/Procedures: [] Heart Score: C/O Chest Pain: No Risk Factors: Risk Factors: DM, Current or recent (<one month) smoker, HTN, HLP, family history of CAD, obesity. Risk Scores: Score 0 - 3: 2.5% MACE over next 6 weeks - Discharge Home Score 4 - 6: 20.3% MACE over next 6 weeks - Admit for Clinical Observation Score 7 - 10: 72.7% MACE over next 6 weeks - Early Invasive Strategies Course & Med Decision Making: Course & Med Decision Making Pertinent Labs and Imaging studies reviewed. (See chart for details) Patients labs indicate that patient is in DKA. DKA protocol ordered. Pain and nausea medication ordered. Reviewed case with Dr. Gonzalez who accepted patient as ICU admit for DKA. Dr. Gonzalez assumed care of patient at this time. [] Annelise Disclaimer: Dragevelio Disclaimer: This electronic medical record was generated, in whole or in part, using a voice recognition dictation system. Departure Departure: Impression: Primary Impression: DKA (diabetic ketoacidoses) Additional Impressions: Abdominal pain Nausea & vomiting Disposition: ADMITTED INPATIENT Admitting Physician: Timothy Gonzalez (admit to Dr. Gonzalez ICU admit) Condition: STABLE Referrals: PCP[facility] (PCP) VLADISLAV ALBERTO BREEDER HEN SERVICE TECHNICIAN May 12, 2021 12:38
[2021-05-12 13:24] LABS: BASO # 0.1 x10^3/uL (0.0-0.2); BASO % 1 % (0-3); EOS % 0 % (0-3); HEMATOCRIT 40.1 % (36.0-47.0); HEMOGLOBIN 13.3 g/dL (12.0-15.5); LYMPH # 1.3 x10^3/uL (1.0-4.8); LYMPH % 15 % (24-48); MEAN CORPUSCULAR HEMOGLOBIN 31 pg (25-35); MEAN CORPUSCULAR HGB CONC 33 g/dL (31-37); MEAN CORPUSCULAR VOLUME 93 fL (79-100); MONO # 0.3 x10^3/uL (0.0-1.1); MONO % 4 % (0-9); NEUT # 7.2 x10^3uL (1.8-7.7); NEUT % 80 % (31-73); PLATELET COUNT 412 x10^3/uL (140-400); RED BLOOD COUNT 4.33 x10^6/uL (3.50-5.40); RED CELL DISTRIBUTION WIDTH 13.9 % (11.5-14.5)
[2021-05-12 13:55] LABS: ALBUMIN 3.6 g/dL (3.4-5.0); CALCIUM 8.7 mg/dL (8.5-10.1); GFR 65.6; POTASSIUM 5.4 mmol/L (3.5-5.1); TOTAL BILIRUBIN 0.8 mg/dL (0.2-1.0); TOTAL PROTEIN 7.2 g/dL (6.4-8.2)
[2021-05-12] MEDS ORDERED: INSULIN REGULAR VIAL 100 UNIT in IV NORMAL SALINE 100ML 100 ML IV PRN (14:15)
[2021-05-12] MEDS ORDERED: IV NORMAL SALINE 100ML 0 ML ONE (14:16)
[2021-05-12] MEDS ORDERED: ONDANSETRON PF 4 MG/2 ML VIAL. IVP PRN ×2 (14:30→15:45)
[2021-05-12] MEDS: IV NORMAL SALINE 1,000ML 1,000 ML IV SCH (16:00)
--- NOTE | 2021-05-12 17:22 | HP ---
ADMIT DATE: 05/12/2021 ATTENDING PHYSICIAN: Dr. Gonzalez. CHIEF COMPLAINT: Nausea and weakness. HISTORY OF PRESENT ILLNESS: The patient is a 30-year-old female well known to us from multiple, multiple previous admissions with diabetic ketoacidosis and noncompliance of her meds. She has diabetic gastroparesis and cyclic vomiting syndrome. Today, she has been sick for the last 2 days. She says she is taking her insulin, but compliance is an issue. Sugars are up in the mid 400s. Her anion gap of 28. She was given fluids and nausea medicine and sent here for insulin drip and glucose stabilizer protocol. PAST MEDICAL HISTORY: Significant for type 1 diabetes with the horrible compliance. She has had local infection due to Port-A-Cath, hypotension, multiple admissions with DKA, substance abuse including amphetamines and other recreational drugs. She has had the lactic acidosis, renal insufficiency, gastroesophageal reflux disease, frequent UTIs, abdominal pain and cyclic vomiting syndrome. She is a smoker. She also does recreational drugs. CURRENT MEDICATIONS: Noncompliance. She was scheduled to take regular Lantus insulin, Reglan, ondansetron and Pepcid. Whether or not she is taking her insulin remains to be seen. She has had abnormal hemoglobin A1c's in the past. ALLERGIES: SHE HAS ALLERGIES TO TYLENOL AND ADHESIVE TAPE, EXACT REACTION IS UNCLEAR. FAMILY HISTORY: Noncontributory. REVIEW OF SYSTEMS: Significant for the 2 days of vomiting. She cannot keep anything down. She is tired. She is weak. She has diffuse abdominal pain. Very flat affect. She denies any suicidal ideation. All other systems reviewed and turned to be negative. PHYSICAL EXAMINATION: GENERAL: When I saw her, this is a chronic ill-appearing young female. VITAL SIGNS: Initial vital signs showed a blood pressure 105/63, pulse 125 and regular. She was afebrile, oxygen saturation 96% on room air. HEENT: Head is without trauma. Pupils are reactive. Sclerae nonicteric. Oropharynx is clear. Mucous membranes dry. NECK: Supple, no bruits. LUNGS: Shallow respirations. CARDIOVASCULAR: Showed a tachycardic rhythm. No obvious gallops. Peripheral pulses are palpable with rate. ABDOMEN: Soft, scaphoid, nontender. Minimal guarding. Hypoactive bowel sounds. EXTREMITIES: Show no cyanosis or edema. NEUROLOGIC: Flat affect. Speech is fluent. No focal deficits. SKIN: Otherwise, warm and dry. PERTINENT LABORATORY STUDIES: The hemoglobin on admission was 13.3 g/dL with a white count of 9000. Her nonfasting blood sugar was initially 420, carbon dioxide level was 9, anion gap is 28. Sodium is concomitantly at level 127, corrected for pseudohyponatremia, is normal. Potassium is 5.4 mEq. ASSESSMENT: 1. This 30-year-old female has recurrent diabetic ketoacidosis due to noncompliance of meds. 2. Moderate amount of stool in her abdominal series. 3. Cyclic vomiting syndrome. 4. Noncompliance with medication. 5. Polysubstance abuse. 6. Ketoacidosis due to uncontrolled diabetes. PLAN: 1. Admit to the ICU. 2. Glucose stabilizer protocol. 3. Serial chemistry. 4. IV hydration. 5. Nausea control. Sandro Holliday has been written. ROSA DR: Cristela TID: [id number]
[2021-05-13] VITALS (12 sets, daily range): BP systolic 94–121; BP diastolic 53–84
[2021-05-13] MEDS: IV NORMAL SALINE 1,000ML 1,000 ML IV SCH (00:56)
[2021-05-13 01:34] LABS: BACTERIA,URINE FEW /HPF (0-FEW); BILIRUBIN,URINE SMALL (NEG); CLARITY,URINE CLEAR; COLOR,URINE YELLOW; GLUCOSE,URINE 250 mg/dL (NEG); NITRITE,URINE NEG (NEG); RBC,URINE OCC /HPF (0-2); SQUAMOUS EPITHELIAL CELL,UR OCC /LPF; UROBILINOGEN,URINE 0.2 mg/dL (0.2 mg/dL); WBC,URINE 20-40 /HPF (0-4)
[2021-05-13 01:36] LABS: BARBITURATES NEG (NEG); BENZODIAZEPINES NEG (NEG); CANNABINOIDS NEG (NEG); COCAINE NEG (NEG); METHADONE NEG (NEG); OPIATES POS (NEG); PHENCYCLIDINE NEG (NEG)
[2021-05-13 01:37] LABS: AMPHETAMINE/METHAMPHETAMINE POS (NEG)
[2021-05-13 06:36] LABS: BASO # 0.1 x10^3/uL (0.0-0.2); BASO % 1 % (0-3); EOS # 0.1 x10^3/uL (0.0-0.7); EOS % 1 % (0-3); HEMATOCRIT 30.6 % (36.0-47.0); HEMOGLOBIN 10.4 g/dL (12.0-15.5); LYMPH # 3.6 x10^3/uL (1.0-4.8); LYMPH % 29 % (24-48); MEAN CORPUSCULAR HEMOGLOBIN 30 pg (25-35); MEAN CORPUSCULAR HGB CONC 34 g/dL (31-37); MEAN CORPUSCULAR VOLUME 89 fL (79-100); MONO % 8 % (0-9); NEUT # 7.5 x10^3uL (1.8-7.7); NEUT % 62 % (31-73); PLATELET COUNT 341 x10^3/uL (140-400); RED BLOOD COUNT 3.45 x10^6/uL (3.50-5.40); RED CELL DISTRIBUTION WIDTH 13.6 % (11.5-14.5); WHITE BLOOD COUNT 12.1 x10^3/uL (4.0-11.0)
[2021-05-13 06:55] LABS: CALCIUM 7.3 mg/dL (8.5-10.1); GFR 65.1
[2021-05-13] MEDS ORDERED: DEXTROSE 50% 25 GM / 50ML DISP.SYRIN. IV PRN (08:30)
[2021-05-13] MEDS: INSULIN REGULAR 100 UNIT/ML 3ML VIAL. SQ SCH ×3 (09:39→17:25)
[2021-05-13] MEDS ORDERED: INSULIN GLARGINE SYRINGE. SQ SCH (21:00)
--- NOTE | 2021-05-13 21:09 | PN ---
DATE: 05/13/2021 SUBJECTIVE: The patient is feeling better. She is still weak. Today is her 31th birthday. OBJECTIVE: HEENT: Head is without trauma. Pupils are reactive. Sclerae nonicteric. Oropharynx clear. NECK: Supple. LUNGS: Clear. CARDIOVASCULAR: Show regular heart tones. ABDOMEN: Soft. Minimal guarding, no rebound tenderness. EXTREMITIES: Without edema. NEUROLOGIC: Function focally intact. Affect is very flat. SKIN: Warm and dry. LABORATORY DATA: Blood sugars this morning were in the low 100s. Her electrolytes came back. Her sodium is 138 mEq per liter, potassium 4.0 mEq, creatinine is 1.0 mg/dL. Her carbon dioxide is up to 20 and anion gap was down to 13. Sugars have been in the low 100s. ASSESSMENT: 1. Now 31-year-old female with the poorly controlled diabetes. She was admitted once again with diabetic ketoacidosis due to noncompliance of meds. 2. Cyclic vomiting syndrome and nausea has improved. 3. Noncompliance. 4. Polysubstance abuse. 5. Ketoacidosis due to diabetes. PLAN: 1. We can stop her IV fluids. Her anion gap is corrected. 2. We can stop the glucose stabilizer protocol. 3. Scheduled regular insulin before each meal and a dose of Lantus at bedtime. 4. We can discontinue IV hydration. 5. P.r.n. nausea control. 6. Transfer out of ICU 4. 7. Tentative discharge plans for tomorrow. DOMO DR: Cristela TID: [id number]
[2021-05-14 05:31] VITALS: BP 131/92
[2021-05-14 08:00] VITALS: BP 129/97
[2021-05-14] MEDS: INSULIN REGULAR 100 UNIT/ML 3ML VIAL. SQ SCH (08:16)
--- NOTE | 2021-05-14 09:22 | DS ---
DATE OF DISCHARGE: 05/14/2021 ATTENDING PHYSICIAN: Dr. Gonzalez. FINAL DISCHARGE DIAGNOSES: 1. Diabetic ketoacidosis. 2. Type 1 diabetes mellitus with noncompliance. 3. Polysubstance abuse. 4. Underlying depression with anxiety. 5. Dehydration. 6. History of cyclic vomiting syndrome. HISTORY AND PHYSICAL: The patient is a 31-year-old female well known to us. She has had a birthday during this admission. She again is abusing recreational drugs. She has not taken her insulin. She was weak, vomiting, and dehydrated. She presented with a blood sugar over 400 mg/dL and an anion gap of 28. PHYSICAL EXAMINATION: Please see the dictated note. PERTINENT LABORATORY AND X-RAY STUDIES: Admission hemoglobin was 13.3 g/dL, in a hemoconcentrated state. Repeated the next day with hydration was down to 10.4 g/dL, white count 9000. Chemistry panel on admission showed increased anion gap, measured at 28. Subsequent blood work showed an improvement. Sugars were drawn, they were in the mid 100's. COURSE IN THE HOSPITAL: She was admitted to the ICU as per protocol, glucose stabilizer protocol along with hourly Accu-Chek. Sugars came down. On the second hospital day, we had her back on her Lantus and her regular scheduled insulin. Diet was advanced. The anion gap decreased to 13. On the third hospital day, she was feeling better and was ready for discharge. I wrote a script for Percocet 7.5 mg 1 p.o. q. 6 hours p.r.n. pain. She should continue her sliding scale regular insulin before meals and 20 units of Lantus at bedtime. She also is scheduled to take her Reglan and Pepcid, doses unchanged. Strong encouragement to avoid further methamphetamine and other substance abuse, whether or not she will comply, remains to be seen. Also, compliance with diabetes is an issue. She was then discharged from our hospital in stable condition with explicit drug and followup care. Total discharge time is 38 minutes. PARKER SANCHES: JEFF/regina TID: [id number]
[2021-05-14] MEDS ORDERED: INSULIN GLARGINE SYRINGE. SQ SCH (21:00)
[2021-05-15] MEDS ORDERED: ONDA4TAB12 PO (12:58)
== END 2021-05-14 11:15 | disposition home or self-care (01) | DRG 639 ==
LOC: ER 12:03 → ICU 14:27
PROVIDERS: ADMIT Hospitalist; ATTEND Hospitalist
DX: E10.10 Type 1 diabetes mellitus with ketoacidosis without coma (principal); E86.0 Dehydration; K21.9 Gastro-esophageal reflux disease without esophagitis; F41.8 Other specified anxiety disorders; F15.10 Other stimulant abuse, uncomplicated; Z87.891 Personal history of nicotine dependence; Z79.4 Long term (current) use of insulin; Z87.440 Personal history of urinary (tract) infections; Z91.14 Patient's other noncompliance with medication regimen; Z88.8 Allergy status to other drugs, medicaments and biological substances; Z91.048 Other nonmedicinal substance allergy status
CPT/HCPCS: 36415; 80048; 80053; 80307; 81001; 82010; 82947; 83690; 84100; 85025; 87086; 96361; 96374; J1815; J2405; J3010; 99285-25; J7030

== ENCOUNTER 2021-05-15 11:17 | Emergency (ER) | payer SELFPAY ==
[~2021-05-15] VITALS: Ht 167.6 cm; Wt 55.9 kg
--- NOTE | 2021-05-15 11:23 | PHYS DOC ---
Past History Past Medical History: Anxiety, Constipation, Diabetes, Ovarian Cyst, Other Additional Past Medical Histor: gastroparesis, drug abuse Past Surgical History: Other Additional Past Surgical Histo: ovarian cysts removed Smoking: Cigarettes, Less than 1pk/day Alcohol Use: None Drug Use: Marijuana, Methamphetamine Adult General HPI HPI Patient is a 31-year-old female well-known to our facility presenting for cyclic nausea and vomit. This is an acute on chronic issue for patient. She was recently admitted and discharged yesterday, states she felt well on discharge and throughout the evening but woke up today with generalized abdominal pain, nausea and "a lot" of episodes of nonbloody nonbilious emesis. Nothing known makes better, p.o. intake makes worse. Pain is generalized to upper abdomen without radiation. She ran out of home antiemetics. She also states her sugar has been running higher than usual since hospital discharge yesterday. No recent fever, major changes in health, trauma or concerning ingestions or exposures since hospital departure yesterday. Denies any significant drug use since hospital discharge yesterday Review of Systems Review of Systems Fourteen body systems of review of systems have been reviewed. See HPI for pertinent positives and negative responses, other bustos all other systems are negative, non-pertinent or non-contributory Allergies Allergies Allergies Coded Allergies Type Severity Reaction Last Updated Verified acetaminophen Allergy Intermediate HIVES 05/12/21 Yes adhesive tape Allergy Intermediate 05/12/21 Yes Physical Exam Physical Exam Constitutional: Well developed, well nourished, no acute distress, non-toxic appearance. HENT: Normocephalic, atraumatic, bilateral external ears normal, oropharynx moist, no oral exudates, nose normal. Eyes: PERRLA, EOMI, conjunctiva normal, no discharge. Neck: Normal range of motion, no tenderness, supple, no stridor. Cardiovascular: Heart rate regular, sinus rhythm, no murmurs rubs or gallops Lungs & Thorax: Bilateral breath sounds clear to auscultation Abdomen: Bowel sounds normal, soft, no tenderness, no masses, no pulsatile masses. Nonsurgical abdomen, no peritoneal signs Skin: Warm, dry, no erythema, no rash. Back: No tenderness, no CVA tenderness. Extremities: No tenderness, no cyanosis, no clubbing, ROM intact, no edema. Neurologic: Alert and oriented X 3, grossly normal motor & sensory function, no focal deficits noted. Psychologic: Affect normal, judgement normal, mood normal. Current Patient Data Vital Signs Vital Signs Date Time Temp Pulse Resp B/P (MAP) Pulse Ox O2 Delivery O2 Flow Rate FiO2 05/15/21 12:08 97.5 81 16 149/97 (114) 98 Room Air Vital Signs Date Time Temp Pulse Resp B/P (MAP) Pulse Ox O2 Delivery O2 Flow Rate FiO2 05/15/21 13:20 97.8 81 16 159/64 (95) 98 05/15/21 12:08 Room Air Lab Results Laboratory Tests Test 05/15/21 11:45 White Blood Count 5.6 x10^3/uL Red Blood Count 4.14 x10^6/uL Hemoglobin 12.5 g/dL Hematocrit 36.9 % Mean Corpuscular Volume 89 fL Mean Corpuscular Hemoglobin 30 pg Mean Corpuscular Hemoglobin Concent 34 g/dL Red Cell Distribution Width 13.9 % Platelet Count 352 x10^3/uL Neutrophils (%) (Auto) 64 % Lymphocytes (%) (Auto) 25 % Monocytes (%) (Auto) 7 % Eosinophils (%) (Auto) 2 % Basophils (%) (Auto) 1 % Neutrophils # (Auto) 3.6 x10^3uL Lymphocytes # (Auto) 1.4 x10^3/uL Monocytes # (Auto) 0.4 x10^3/uL Eosinophils # (Auto) 0.1 x10^3/uL Basophils # (Auto) 0.1 x10^3/uL Sodium Level 136 mmol/L Potassium Level 3.3 mmol/L Chloride Level 100 mmol/L Carbon Dioxide Level 26 mmol/L Anion Gap 10 Blood Urea Nitrogen 7 mg/dL Creatinine 0.6 mg/dL Estimated GFR (Cockcroft-Gault) 117.4 Glucose Level 225 mg/dL Calcium Level 8.4 mg/dL Current Medications Medications (Trade) Dose Ordered Sig/Chevy Route PRN Reason Start Time Stop Time Status Last Admin Dose Admin Sodium Chloride 1,000 ml @ 1,000 mls/hr 1X ONCE IV 05/15/21 11:30 05/15/21 12:29 DC 05/15/21 11:30 Haloperidol Lactate (Haldol) 5 mg 1X ONCE IVP 05/15/21 12:30 05/15/21 12:31 DC 05/15/21 12:30 EKG EKG EKG ordered and interpreted by myself at 1218 hrs. as sinus rhythm at 80 bpm, unremarkable intervals, no axis deviation, no acute ischemic findings, no STEMI Radiology/Procedures Radiology/Procedures [] Heart Score C/O Chest Pain: No Risk Factors: Risk Factors: DM, Current or recent (<one month) smoker, HTN, HLP, family history of CAD, obesity. Risk Scores: Risk Factors: DM, Current or recent (<one month) smoker, HTN, HLP, family history of CAD, obesity. Course & Med Decision Making Course & Med Decision Making ABCs unremarkable. I disclosed entirety of ER findings and discussed most likely diagnosis of continuous drug abuse versus diabetic gastroparesis versus other likely self-limiting/nonemergent/nonsurgical causes of abdominal pain and nausea and vomiting. I did disclose this might be an acute presentation more concerning pathology; however, patient improved with ER intervention provided. As such, I stressed need for close outpatient follow-up to review today's ER visit. Strict return precautions were also discussed at length with good understanding by patient. Patient voiced understanding and agreement with the plan. Patient knows to come back for repeat evaluation if concerning signs or symptoms present prior to outpatient follow-up. Hemodynamically stable, ambulatory and well-appearing at time of disposition. Dragon Disclaimer Dragon Disclaimer This electronic medical record was generated, in whole or in part, using a voice recognition dictation system. Departure Departure: Impression: Primary Impression: Nausea & vomiting Additional Impression: Diabetic gastroparesis Disposition: HOME / SELF CARE / HOMELESS Condition: IMPROVED Referrals: PCP,BAY (PCP) Additional Instructions: You have been evaluated in the Emergency Department today for abdominal pain. Your evaluation was not suggestive of any emergent condition requiring medical intervention at this time. However, some abdominal problems make take more time to appear. Therefore, it is important for you to watch for any new symptoms or worsening of your current condition. Please continue tight glycemic control and call your primary care physician first thing on Monday to review ER visit today in addition to recent hospital admission Return to the Emergency Department if you experience worsening pain, persistent fevers greater than 100.4, recurrent vomiting, blood in vomit, blood in stool, dark tarry stool, chest pain, difficulty breathing, or any other concerning symptoms. Scripts Ondansetron (ONDANSETRON ODT) 4 Mg Tab.rapdis 1 TAB PO PRN Q6-8HRS for NAUSEA, #16 TAB Prov: BRENDA BAKER DO 05/15/21 Problem Qualifiers BRENDA BAKER DO May 15, 2021 11:23
[2021-05-15] MEDS ORDERED: IV NORMAL SALINE 1,000ML 1,000 ML IV ONE (11:30)
[2021-05-15 12:02] LABS: BASO # 0.1 x10^3/uL (0.0-0.2); BASO % 1 % (0-3); EOS # 0.1 x10^3/uL (0.0-0.7); EOS % 2 % (0-3); HEMATOCRIT 36.9 % (36.0-47.0); HEMOGLOBIN 12.5 g/dL (12.0-15.5); LYMPH # 1.4 x10^3/uL (1.0-4.8); LYMPH % 25 % (24-48); MEAN CORPUSCULAR HEMOGLOBIN 30 pg (25-35); MEAN CORPUSCULAR HGB CONC 34 g/dL (31-37); MEAN CORPUSCULAR VOLUME 89 fL (79-100); MONO # 0.4 x10^3/uL (0.0-1.1); MONO % 7 % (0-9); NEUT # 3.6 x10^3uL (1.8-7.7); NEUT % 64 % (31-73); PLATELET COUNT 352 x10^3/uL (140-400); RED BLOOD COUNT 4.14 x10^6/uL (3.50-5.40); RED CELL DISTRIBUTION WIDTH 13.9 % (11.5-14.5); WHITE BLOOD COUNT 5.6 x10^3/uL (4.0-11.0)
[2021-05-15 12:06] LABS: CALCIUM 8.4 mg/dL (8.5-10.1); CREATININE 0.6 mg/dL (0.6-1.0); GFR 117.4; POTASSIUM 3.3 mmol/L (3.5-5.1)
--- NOTE | 2021-05-15 12:28 | EKG ---
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
[2021-05-15] MEDS ORDERED: HALOPERIDOL LACT 5 MG/ML VIAL. IVP ONE (12:30)
[2021-05-15] MEDS ORDERED: ONDA4TAB12 PO (12:58)
[2021-05-15 13:20] VITALS: BP 159/64
== END 2021-05-15 13:30 | disposition home or self-care (01) ==
LOC: ER 11:17
DX: E11.43 Type 2 diabetes mellitus with diabetic autonomic (poly)neuropathy (principal); K31.84 Gastroparesis; R11.2 Nausea with vomiting, unspecified; F12.10 Cannabis abuse, uncomplicated; F15.10 Other stimulant abuse, uncomplicated; F17.210 Nicotine dependence, cigarettes, uncomplicated; Z88.6 Allergy status to analgesic agent
CPT/HCPCS: 36415; 80048; 85025; 93005; 96361; 96374; 99284; J1630; J7030

== ENCOUNTER 2021-05-17 18:14 | Emergency (ER) | payer SELFPAY ==
[~2021-05-17] VITALS: Ht 167.6 cm; Wt 55.9 kg
[2021-05-17] MEDS ORDERED: ONDANSETRON PF 4 MG/2 ML VIAL. IVP ONE (18:30)
[2021-05-17] MEDS ORDERED: IV RINGERS SOLUTION,LACTATED 1,000 ML IV ONE ×2 (18:30→21:45)
[2021-05-17] MEDS ORDERED: METOCLOPRAMIDE HCL 10 MG/2 ML VIAL. IVP ONE (19:00)
[2021-05-17] MEDS ORDERED: diphenhydrAMINE 50 MG/ML VIAL IVP ONE (19:30)
[2021-05-17] MEDS ORDERED: KETOROLAC 30 MG/ML VIAL. IVP ONE (19:30)
--- NOTE | 2021-05-17 19:34 | PHYS DOC ---
Past History Past Medical History: Anxiety, Constipation, Diabetes, Ovarian Cyst, Other Additional Past Medical Histor: gastroparesis, drug abuse Past Surgical History: Other Additional Past Surgical Histo: ovarian cysts removed Smoking: Cigarettes, Less than 1pk/day Alcohol Use: None Drug Use: Marijuana, Methamphetamine Adult General Chief Complaint Chief Complaint: NAUSEA/VOMITING/DIARRHEA HPI HPI Patient is a 31-year-old female with a past medical history significant for type 1 diabetes, anxiety, and depression who presents with a chief complaint of nausea and vomiting for the past couple days. States it started Monday evening with some nausea and nonbloody nonbilious emesis. States that yesterday she had a couple episodes of nonbloody watery diarrhea but has had a normal stool since then, and today had soft stool. States she was in the hospital up until last Monday for diabetes complications and was sent home on Monday. Denies any fevers at home, chest pain, shortness of breath, abdominal pain, hematuria, blood in the stool. Does endorse dysuria and urinary frequency. Denies any vaginal bleeding, discharge or pain. Denies any history of renal stones. Denies history of STIs. Denies any alcohol or drug use. Denies any other known ill contacts outside of the hospital. Denies any recent travel, traumas. States she has been able to drink a little fluid but had not eaten anything today. Review of Systems Review of Systems Review of systems otherwise unremarkable except noted in HPI Current Medications Current Medications Current Medications Medications (Trade) Dose Ordered Sig/Chevy Start Time Stop Time Status Last Admin Dose Admin Lactated Ringer's 1,000 ml @ 1,000 mls/hr 1X ONCE 05/17/21 18:30 05/17/21 19:29 05/17/21 19:25 1,000 MLS/HR Metoclopramide HCl (Reglan Vial) 10 mg 1X ONCE 05/17/21 19:00 05/17/21 19:01 DC 05/17/21 19:28 10 MG Ondansetron HCl (Zofran) 8 mg 1X ONCE 05/17/21 18:30 05/17/21 18:32 DC Allergies Allergies Allergies Coded Allergies Type Severity Reaction Last Updated Verified acetaminophen Allergy Intermediate HIVES 05/12/21 Yes adhesive tape Allergy Intermediate 05/12/21 Yes Physical Exam Physical Exam Constitutional: Well developed, well nourished, no acute distress, non-toxic appearance. [] HENT: Normocephalic, atraumatic, bilateral external ears normal, oropharynx moist, no oral exudates, nose normal. [] Eyes: conjunctiva normal, no discharge. [] Neck: Normal range of motion, no tenderness, supple, no stridor. [] Cardiovascular:Heart rate regular rhythm, no murmur [] Lungs & Thorax: Bilateral breath sounds clear to auscultation [] Abdomen: Bowel sounds normal, soft, no tenderness, no masses, no pulsatile masses. [] Skin: Warm, dry, no erythema, no rash. [] Back: Bilateral CVA tenderness. [] Extremities: No tenderness, no cyanosis, no clubbing, ROM intact, no edema. [] Neurologic: Alert and oriented X 3, no focal deficits noted. [] Psychologic: Affect normal, judgement normal, mood normal. [] Current Patient Data Vital Signs Vital Signs Date Time Temp Pulse Resp B/P (MAP) Pulse Ox O2 Delivery O2 Flow Rate FiO2 05/17/21 18:31 98.0 94 18 139/102 (114) 99 Room Air Lab Results Laboratory Tests Test 05/17/21 18:29 Glucose (Fingerstick) 165 mg/dL (70-99) H EKG EKG [] Radiology/Procedures Radiology/Procedures [] Heart Score C/O Chest Pain: No Risk Factors: Risk Factors: DM, Current or recent (<one month) smoker, HTN, HLP, family h istory of CAD, obesity. Risk Scores: Risk Factors: DM, Current or recent (<one month) smoker, HTN, HLP, family history of CAD, obesity. Course & Med Decision Making Course & Med Decision Making Patient is a 31-year-old female who presents with a chief complaint of dysuria/frequency, nausea and vomiting Vital signs notable for sinus tachycardia. Physical exam noted above. Patient placed on the monitor with IV access established and IV fluid begun. Patient declined Phenergan. Given Zofran, Reglan and Benadryl for nausea. Given morphine for pain. Laboratory analysis not concerning. Urinalysis with negative. Urinalysis suggestive of urinary tract infection.. Patient given first dose of antibiotics in the ED for pyelonephritis. Discussed all findings with patient. Advised on pain management at home. Advised on antibiotic use. Advised to call primary care physician in the morning and set up a follow-up visit within the next week for repeat urinalysis and reevaluation. Gave strict return precautions to the ED. Patient grateful, verbalized understanding and agreed with plan of discharge. Dragon Disclaimer Dragon Disclaimer This electronic medical record was generated, in whole or in part, using a voice recognition dictation system. Departure Departure: Impression: Primary Impression: Pyelonephritis Disposition: HOME / SELF CARE / HOMELESS Referrals: PCP,BAY (PCP) GABRIELLA CASTANEDA MD Patient Instructions: Pyelonephritis, Adult Additional Instructions: Thank you for coming into the emergency department and allowing us to take care of you. Please read the attached information to understand your diagnosis and reinforce what we discussed. At home please begin a Tylenol, and Benadryl regimen for pain control. Please use your prescription nausea medicine and pain medicine as prescribed. Please call your primary care physician in the morning or call the primary care physician at the number provided to establish care and set up a follow-up appointment within the next week for repeat urinalysis and reevaluation. Please take all of your antibiotics as prescribed and until they are gone. Please come back to the emergency department immediately with new or concerning symptoms as discussed. Scripts Oxycodone HCl (Roxicodone) 5 Mg Tablet 5 MG PO BID for abdominal pain for 3 Days, #6 TAB Prov: TANIKA CAMARENA MD 05/17/21 Ondansetron Hcl (ZOFRAN) 4 Mg Tablet 1 TAB PO PRN Q6HRS PRN for NAUSEA for 7 Days, #5 TAB 4 Refills Prov: TANIKA CAMARENA MD 05/17/21 Cephalexin (CEPHALEXIN) 500 Mg Capsule 1 CAP PO Q6HRS for pyelonephritis for 10 Days, #40 CAP Prov: TANIKA CAMARENA MD 05/17/21 TANIKA CAMARENA MD May 17, 2021 19:34
[2021-05-17 19:35] LABS: BASO # 0.1 x10^3/uL (0.0-0.2); BASO % 1 % (0-3); EOS # 0.1 x10^3/uL (0.0-0.7); EOS % 1 % (0-3); HEMATOCRIT 41.3 % (36.0-47.0); HEMOGLOBIN 13.9 g/dL (12.0-15.5); LYMPH # 1.6 x10^3/uL (1.0-4.8); LYMPH % 16 % (24-48); MEAN CORPUSCULAR HEMOGLOBIN 30 pg (25-35); MEAN CORPUSCULAR HGB CONC 34 g/dL (31-37); MEAN CORPUSCULAR VOLUME 89 fL (79-100); MONO # 0.6 x10^3/uL (0.0-1.1); MONO % 7 % (0-9); NEUT # 7.2 x10^3uL (1.8-7.7); NEUT % 75 % (31-73); PLATELET COUNT 416 x10^3/uL (140-400); RED BLOOD COUNT 4.62 x10^6/uL (3.50-5.40); RED CELL DISTRIBUTION WIDTH 14.2 % (11.5-14.5); WHITE BLOOD COUNT 9.6 x10^3/uL (4.0-11.0)
[2021-05-17 19:48] LABS: ALBUMIN 3.6 g/dL (3.4-5.0); ALBUMIN/GLOBULIN RATIO 1.1 (1.0-1.7); CREATININE 0.6 mg/dL (0.6-1.0); GFR 117.4; POTASSIUM 3.2 mmol/L (3.5-5.1); TOTAL BILIRUBIN 0.5 mg/dL (0.2-1.0); TOTAL PROTEIN 6.9 g/dL (6.4-8.2)
[2021-05-17 19:56] LABS: CALCIUM 8.8 mg/dL (8.5-10.1)
[2021-05-17] MEDS ORDERED: PROMETHAZINE 25 MG SUPP.RECT. PR ONE (21:00)
[2021-05-17] MEDS ORDERED: MORPHINE SULFATE 2 MG/ML DISP.SYRIN. IV ONE (21:45)
[2021-05-17] MEDS ORDERED: MORPHINE SULFATE 4 MG/ML DISP.SYRIN. IV ONE (21:45)
[2021-05-17 21:56] LABS: BILIRUBIN,URINE NEG (NEG); CLARITY,URINE CLOUDY; COLOR,URINE STRAW; GLUCOSE,URINE 100 mg/dL (NEG)
[2021-05-17 21:57] LABS: NITRITE,URINE NEG (NEG); RBC,URINE >40 /HPF (0-2); WBC,URINE TNTC /HPF (0-4)
[2021-05-17 21:58] LABS: BACTERIA,URINE MANY /HPF (0-FEW); SQUAMOUS EPITHELIAL CELL,UR OCC /LPF
[2021-05-17] MEDS ORDERED: ONDA4TAB7 PO (22:20)
[2021-05-17] MEDS ORDERED: CEPH500C PO (22:20)
[2021-05-17] MEDS ORDERED: OXYC5TAB88 PO (22:20)
[2021-05-17] MEDS ORDERED: cefTRIAXone SODIUM 1 GM VIAL ONE (22:25)
[2021-05-17] MEDS ORDERED: IV NORMAL SALINE 50ML 50 ML ONE (22:25)
[2021-05-17 23:14] VITALS: BP 147/89
== END 2021-05-17 23:20 | disposition home or self-care (01) ==
LOC: ER 18:14
DX: N12 Tubulo-interstitial nephritis, not specified as acute or chronic (principal); F41.9 Anxiety disorder, unspecified; F32.9 Major depressive disorder, single episode, unspecified; F17.210 Nicotine dependence, cigarettes, uncomplicated; F12.10 Cannabis abuse, uncomplicated; F15.10 Other stimulant abuse, uncomplicated; Z88.6 Allergy status to analgesic agent
CPT/HCPCS: 36415; 80053; 81001; 81025; 82803; 82947; 83690; 85025; 87086; 96361; 96365; 96375; 99284; J0696; J1200; J1885; J2270; J2405; J2765; J7120; 87077

== ENCOUNTER 2021-07-13 20:20 | Emergency (ER) | payer SELFPAY ==
[~2021-07-13] VITALS: Ht 167.6 cm; Wt 55.9 kg
[~2021-07-13 20:20] MED LIST changes: +CEPH500C PO; +OXYC5TAB88 PO
[2021-07-13] MEDS ORDERED: FAMOTIDINE 20 MG/2 ML VIAL IVP ONE (20:45)
[2021-07-13] MEDS ORDERED: ONDANSETRON PF 4 MG/2 ML VIAL. IVP ONE (20:45)
[2021-07-13] MEDS ORDERED: METOCLOPRAMIDE HCL 10 MG/2 ML VIAL. IVP ONE (20:45)
[2021-07-13 21:12] LABS: BASO # 0.1 x10^3/uL (0.0-0.2); BASO % 1 % (0-3); EOS # 0.2 x10^3/uL (0.0-0.7); EOS % 3 % (0-3); HEMATOCRIT 41.4 % (36.0-47.0); LYMPH % 30 % (24-48); MEAN CORPUSCULAR HEMOGLOBIN 31 pg (25-35); MEAN CORPUSCULAR HGB CONC 34 g/dL (31-37); MEAN CORPUSCULAR VOLUME 90 fL (79-100); MONO # 0.7 x10^3/uL (0.0-1.1); MONO % 10 % (0-9); NEUT # 3.7 x10^3uL (1.8-7.7); NEUT % 55 % (31-73); PLATELET COUNT 303 x10^3/uL (140-400); RED BLOOD COUNT 4.58 x10^6/uL (3.50-5.40); RED CELL DISTRIBUTION WIDTH 13.5 % (11.5-14.5); WHITE BLOOD COUNT 6.6 x10^3/uL (4.0-11.0)
[2021-07-13 21:26] LABS: CREATININE 0.6 mg/dL (0.6-1.0); GFR 117.4; POTASSIUM 3.9 mmol/L (3.5-5.1)
[2021-07-13 21:36] LABS: MAGNESIUM 2.2 mg/dL (1.8-2.4); TOTAL BILIRUBIN 0.3 mg/dL (0.2-1.0); TOTAL PROTEIN 7.9 g/dL (6.4-8.2)
[2021-07-13 22:58] VITALS: BP 114/87
[2021-07-13] MEDS ORDERED: ONDA4TAB12 PO (23:05)
--- NOTE | 2021-07-13 23:06 | PHYS DOC ---
Past History Past Medical History: Anxiety, Constipation, Diabetes, Ovarian Cyst, Other Additional Past Medical Histor: gastroparesis, drug abuse Past Surgical History: Other Additional Past Surgical Histo: ovarian cysts removed Smoking: Cigarettes, Less than 1pk/day Alcohol Use: None Drug Use: Marijuana, Methamphetamine General Adult EDM: Chief Complaint: WEAKNESS/GENERALIZED HPI: HPI: 31-year-old female past medical history of insulin-dependent diabetes, tobacco use and gastroparesis presents to the ED with complaints of weakness, nausea and vomiting stating her glucose was high this morning so she took more short acting insulin, cannot recall how many units she used or how high your glucose was. Reports for every 50 of glucose above 150, she injects herself with 3 units of short acting insulin. Also takes Lantus 20 units every morning and every night. Believes her nausea and vomiting is related to her gastroparesis. Denies any alcohol abuse. Reports her glucose was 70 and this is low for her, "my glucose is all messed up." Review of Systems: Review of Systems: Constitutional: Denies fever or chills Eyes: Denies change in visual acuity HENT: Denies nasal congestion or sore throat Respiratory: Denies cough or shortness of breath Cardiovascular: Denies chest pain or edema GI: Denies bloody stools or diarrhea : Denies dysuria or vaginal bleeding Musculoskeletal: Denies back pain or joint pain Integument: Denies rash or diaphoresis Neurologic: Denies headache, focal weakness or sensory changes Endocrine: Denies polyuria or polydipsia Lymphatic: Denies swollen glands Psychiatric: Denies depression or anxiety Current Medications: Current Meds: Current Medications Medications (Trade) Dose Ordered Sig/Chevy Start Time Stop Time Status Last Admin Dose Admin Famotidine (Pepcid Vial) 20 mg 1X ONCE 07/13/21 20:45 07/13/21 21:08 DC 07/13/21 21:44 20 MG Metoclopramide HCl (Reglan Vial) 10 mg 1X ONCE 07/13/21 20:45 07/13/21 21:08 DC 07/13/21 20:44 10 MG Ondansetron HCl (Zofran) 8 mg 1X ONCE 07/13/21 20:45 07/13/21 21:08 DC 07/13/21 21:44 8 MG Allergies: Allergies: Allergies Coded Allergies Type Severity Reaction Last Updated Verified acetaminophen Allergy Intermediate HIVES 05/12/21 Yes adhesive tape Allergy Intermediate 05/12/21 Yes Physical Exam: PE: Constitutional: Nontoxic appearing, actively dry heaving 918 HENT: Normocephalic, atraumatic, Eyes: EOMI, conjunctiva normal, no discharge. Neck: Normal range of motion, supple, Cardiovascular: S1/2 present, regular rhythm Lungs & Thorax: Speaking in full sentences, bilateral equal chest rise, no tachypnea or increased work of breathing Abdomen: soft, no tenderness, Skin: Warm, dry, no erythema, no rash. [] Back: No tenderness, no CVA tenderness. [] Extremities: No tenderness, no cyanosis, Neurologic: Alert and oriented X 3, normal motor function, normal sensory function, no focal deficits noted. [] Psychologic: Affect normal, judgement normal, mood normal. [] Current Patient Data: Labs: Laboratory Tests Test 07/13/21 20:43 White Blood Count 6.6 x10^3/uL (4.0-11.0) Red Blood Count 4.58 x10^6/uL (3.50-5.40) Hemoglobin 14.0 g/dL (12.0-15.5) Hematocrit 41.4 % (36.0-47.0) Mean Corpuscular Volume 90 fL (79-100) Mean Corpuscular Hemoglobin 31 pg (25-35) Mean Corpuscular Hemoglobin Concent 34 g/dL (31-37) Red Cell Distribution Width 13.5 % (11.5-14.5) Platelet Count 303 x10^3/uL (140-400) Neutrophils (%) (Auto) 55 % (31-73) Lymphocytes (%) (Auto) 30 % (24-48) Monocytes (%) (Auto) 10 % (0-9) H Eosinophils (%) (Auto) 3 % (0-3) Basophils (%) (Auto) 1 % (0-3) Neutrophils # (Auto) 3.7 x10^3uL (1.8-7.7) Lymphocytes # (Auto) 2.0 x10^3/uL (1.0-4.8) Monocytes # (Auto) 0.7 x10^3/uL (0.0-1.1) Eosinophils # (Auto) 0.2 x10^3/uL (0.0-0.7) Basophils # (Auto) 0.1 x10^3/uL (0.0-0.2) Sodium Level 139 mmol/L (136-145) Potassium Level 3.9 mmol/L (3.5-5.1) Chloride Level 103 mmol/L (98-107) Carbon Dioxide Level 26 mmol/L (21-32) Anion Gap 10 (6-14) Blood Urea Nitrogen 21 mg/dL (7-20) H Creatinine 0.6 mg/dL (0.6-1.0) Estimated GFR (Cockcroft-Gault) 117.4 BUN/Creatinine Ratio 35 (6-20) H Glucose Level 72 mg/dL (70-99) Glucose (Fingerstick) 68 mg/dL (70-99) L Calcium Level 9.0 mg/dL (8.5-10.1) Magnesium Level 2.2 mg/dL (1.8-2.4) Total Bilirubin 0.3 mg/dL (0.2-1.0) Aspartate Amino Transferase (AST) 18 U/L (15-37) Alanine Aminotransferase (ALT) 22 U/L (14-59) Alkaline Phosphatase 77 U/L (46-116) Total Protein 7.9 g/dL (6.4-8.2) Albumin 4.0 g/dL (3.4-5.0) Albumin/Globulin Ratio 1.0 (1.0-1.7) Lipase 33 U/L (73-393) L Ethyl Alcohol Level < 10 mg/dL (0-10) Vital Signs: Vital Signs Date Time Temp Pulse Resp B/P (MAP) Pulse Ox O2 Delivery O2 Flow Rate FiO2 07/13/21 22:58 109 18 114/87 (96) 98 07/13/21 20:49 98.5 Room Air EKG: EKG: [] Radiology/Procedures: Radiology/Procedures: [] Heart Score: C/O Chest Pain: No Risk Factors: Risk Factors: DM, Current or recent (<one month) smoker, HTN, HLP, family history of CAD, obesity. Risk Scores: Score 0 - 3: 2.5% MACE over next 6 weeks - Discharge Home Score 4 - 6: 20.3% MACE over next 6 weeks - Admit for Clinical Observation Score 7 - 10: 72.7% MACE over next 6 weeks - Early Invasive Strategies Course & Med Decision Making: Course & Med Decision Making Pertinent Labs and Imaging studies reviewed. (See chart for details) Concern for nausea and vomiting in the setting of diabetes, suspect anant roparesis. No glucose abnormalities in ed and upon re-eval is tolerating liquids. Repeat glucose 94. Would not provide urine sample. Will discharge home with strict ED return precautions were given for abdominal pain, nausea or vomiting or fever. Encouraged urgent outpatient follow-up with PMD and endocrine for definitive management. Life-threatening processes were considered but are low suspicion at this time, given history, physical exam and ED workup. Pt was educated on all prescription medications and adverse effects. All patient's questions were answered and pt was stable at time of discharge. Life/limb-threatening differential includes but is not limited to, acute coronary syndrome/myocardial infarction, Boerhaave's, DKA, gastrointestinal bleeding, intracranial hemorrhage, ischemic bowel, meningitis, sepsis, surgical abdomen (AAA), toxidrome (drug over/overdose/carbon monoxide, etc), ovarian/testicular torsion, trauma, or infection/sepsis. I have spoken with the patient and/or caregivers. I explained the patient's condition, diagnoses and treatment plan based on the information available to me at this time. I have answered the patient and/or caregiver's questions and addressed any concerns. The patient and/or caregivers have a good understanding of patient's diagnosis, condition and treatment plan as can be expected at this point. Vital signs have been stable. Patient's condition is stable and appropriate for discharge from the emergency department. Patient will pursue further outpatient evaluation with primary care physician or other designated or consulting physician as outlined in the discharge instructions. The patient and/or caregivers are agreeable to this plan of care and follow-up instructions have been explained in detail. The patient and/or caregivers have received these instructions in written form and have expressed an understanding of the discharge instructions. The patient and/or caregivers are aware that any significant change of condition or worsening of symptoms should prompt immediate return to this or the closest emergency department or call to 911. Annelise Disclaimer: Annelise Disclaimer: This electronic medical record was generated, in whole or in part, using a voice recognition dictation system. Departure Departure: Impression: Primary Impression: Weakness Additional Impression: Nausea & vomiting Disposition: HOME / SELF CARE / HOMELESS Condition: STABLE Referrals: PCP,NO (PCP) Follow-up with your primary care physician in 24 to 48 hours OR FOLLOW UP WITH FAMILY MEDICINE: [address], [address] [place] [address] Patient Instructions: Nausea and Vomiting, Weakness Additional Instructions: [facility] -[facility] FOR DEFINITIVE MANAG[facility] [address] [place] [address] OR [facility] [address] [place] [address] OR [facility] [address] [place] [address] EMERGENCY DEPARTMENT GENERAL DISCHARGE INSTRUCTIONS Thank you for coming to [facility] (ED) today and trusting us with you care. We trust that you had a positivie experience in our Emergency Department. If you wish to speak to the department management, you may call the director at [phone]. YOUR FOLLOW UP INSTRUCTIONS ARE FOLLOWS: 1. Do you have a private Doctor? If you do not have a private doctor, please ask for a resource list of physicians or clinics that may be able to assist you with follow up care. 2. The Emergency Physician has interpreted your x-rays. The X-Ray specialist will also review them. If there is a change in the findings, you will be notified in 48 hours when at all possible. 3. A lab test or culture has been done, your results will be reviewed and you will be notified if you need a change in treatment. ADDITIONAL INSTRUCTIONS AND INFORMATION: 1. Your care today has been supervised by a physician who is specially trained in emergency care. Many problems require more than one evaluation for a complete diagnosis and treatment. We recommend that you schedule your follow up appointment as recommended to ensure complete treatment of you illness or injury. If you are unable to obtain follow up care and continue to have a problem, or if your condition worsens, we recommend that you return to the ED. 2. We are not able to safely determine your condition over the phone nor are we able to give sound medical advice over the phone. For these safety reasons, if you call for medical advice we will ask you to come to the ED for further evaluation. 3. If you have any questions regarding these discharge instructions please call the ED at [phone]. SAFETY INFORMATION: In the interest of safety, wellness, and injury prevention; we encourage you to wear your sealbelt, if you smoke; quite smoking, and we encourage family to use a protective helmet for bicycling and other sporting events that present an increased risk for head injury. IF YOUR SYMPTOMS WORSEN OR NEW SYMPTOMS DEVELOP, OR YOU HAVE CONCERNS ABOUT YOUR CONDITION; OR IF YOUR CONDITION WORSENS WHILE YOU ARE WAITING FOR YOUR FOLLOW UP APPOINTMENT; EITHER CONTACT YOUR PRIMARY CARE DOCTOR, THE PHYSICIAN WHOSE NAME AND NUMBER YOU WERE GIVEN, OR RETURN TO THE ED IMMEDIATELY. Scripts Ondansetron (ONDANSETRON ODT) 4 Mg Tab.rapdis 4 MG PO Q6HRS for Nausea/Vomiting, #15 TAB Prov: ESVIN AGUIRRE DO 07/13/21 ESVIN AGUIRRE DO Jul 13, 2021 23:06
== END 2021-07-13 23:10 | disposition home or self-care (01) ==
LOC: ER 20:20
DX: R53.1 Weakness (principal); R11.2 Nausea with vomiting, unspecified; F41.9 Anxiety disorder, unspecified; E11.9 Type 2 diabetes mellitus without complications; F17.210 Nicotine dependence, cigarettes, uncomplicated; Z88.8 Allergy status to other drugs, medicaments and biological substances
CPT/HCPCS: 36415; 80053; 82947; 83690; 83735; 85025; 96374; 96375; 99284; G0480; J2405; J2765; J3490

== ENCOUNTER 2021-07-17 16:57 | Emergency (ER) | payer SELFPAY ==
[~2021-07-17] VITALS: Ht 167.6 cm; Wt 55.9 kg
[2021-07-17] MEDS ORDERED: IV NORMAL SALINE 1,000ML 1,000 ML IV ONE (17:15)
--- NOTE | 2021-07-17 17:15 | PHYS DOC ---
Past History Past Medical History: Anxiety, Constipation, Diabetes, Ovarian Cyst, Other Additional Past Medical Histor: gastroparesis, drug abuse (BRENDA BAKER DO) Past Surgical History: Other Additional Past Surgical Histo: ovarian cysts removed (BRENDA BAKER DO) Smoking: Cigarettes, Less than 1pk/day Alcohol Use: None Drug Use: Marijuana, Methamphetamine (BRENDA BAKER DO) Adult General Chief Complaint Chief Complaint: ABDOMINAL PAIN HPI HPI Patient is a 31-year-old female presenting for nausea vomit. This is an acute on chronic problem. Reports she has been taking all her medications daily without any compliance issues. She has a known noncompliant/uncontrolled type I diabetic but reports she has been taking insulin faithfully with last fingerstick blood glucose 2 hours ago was 123. Denies any recent marijuana or recreational drug use. Reports abdominal pain is similar to previous episodes, does admit she ran out of home Zofran prescription prompting her to have continued uncontrolled nausea. (BRENDA BAKER DO) Review of Systems Review of Systems Fourteen body systems of review of systems have been reviewed. See HPI for pertinent positives and negative responses, other bustos all other systems are negative, non-pertinent or non-contributory (BRENDA BAKER DO) Allergies Allergies Allergies Coded Allergies Type Severity Reaction Last Updated Verified acetaminophen Allergy Intermediate HIVES 05/12/21 Yes adhesive tape Allergy Intermediate 05/12/21 Yes (BRENDA BAKER DO) Physical Exam Physical Exam Constitutional: Age-appropriate, and in position, appears uncomfortable but nontoxic HENT: Normocephalic, atraumatic, bilateral external ears normal, oropharynx moist, no oral exudates, nose normal. Eyes: PERRLA, EOMI, conjunctiva normal, no discharge. Neck: Normal range of motion, no tenderness, supple, no stridor. Cardiovascular: Heart rate regular, sinus rhythm, no murmurs rubs or gallops Lungs & Thorax: Bilateral breath sounds clear to auscultation Abdomen: Bowel sounds normal, soft, generalized tenderness with voluntary guarding present, no rebound, no masses, no pulsatile masses. Nonsurgical abdomen, no peritoneal signs Skin: Warm, dry, no erythema, no rash. Back: No tenderness, no CVA tenderness. Extremities: No tenderness, no cyanosis, no clubbing, ROM intact, no edema. Neurologic: Alert and oriented X 3, grossly normal motor & sensory function, no focal deficits noted. Psychologic: Tearful affect, anxious mood (BRENDA BAKER DO) Current Patient Data Vital Signs Vital Signs Date Time Temp Pulse Resp B/P (MAP) Pulse Ox O2 Delivery O2 Flow Rate FiO2 07/17/21 17:38 98.4 96 18 146/83 99 Vital Signs Date Time Temp Pulse Resp B/P (MAP) Pulse Ox O2 Delivery O2 Flow Rate FiO2 07/17/21 17:38 98.4 96 18 146/83 99 Lab Results Laboratory Tests Test 07/17/21 17:24 Glucose (Fingerstick) 117 mg/dL Current Medications Medications (Trade) Dose Ordered Sig/Chevy Route PRN Reason Start Time Stop Time Status Last Admin Dose Admin Sodium Chloride 1,000 ml @ 1,000 mls/hr 1X ONCE IV 07/17/21 17:15 07/17/21 18:14 (BRENDA BAKER DO) EKG EKG EKG ordered and interpreted by myself at 1750 hrs. as sinus rhythm at 90 bpm, unremarkable intervals, no axis deviation, no acute ischemic findings, no STEMI (BRENDA BAKER DO) Radiology/Procedures Radiology/Procedures [] (BRENDA BAKER DO) Heart Score C/O Chest Pain: No Risk Factors: Risk Factors: DM, Current or recent (<one month) smoker, HTN, HLP, family history of CAD, obesity. Risk Scores: Risk Factors: DM, Current or recent (<one month) smoker, HTN, HLP, family history of CAD, obesity. (BRENDA BAKER DO) C/O Chest Pain: N/A (TANIKA CAMARENA MD) Course & Med Decision Making Course & Med Decision Making Vitals stable. HPI and physical examination nonconcerning for any emergent or surgical issues. ER work-up started to exclude DKA in a known uncontrolled type I diabetic. I suspect this is likely acute on chronic uncontrolled gastroparesis versus other benign issue At this time in care my shift is ending. Comprehensive signout given to oncoming physician. All questions and concerns addressed prior to my shift and. Please defer to his documentation regarding future care of patient while in ER (BRENDA BAKER DO) Course & Med Decision Making Patient care handed off to me pending urinalysis. Fluid resuscitated. Patient's vital signs stable and slightly improved. Patient awake alert and oriented with nausea resolved. Given first dose of antibiotics in the ED for UTI. Discussed all findings with patient and advised a course of antibiotics. Advised ceasing substance use, and only taking what has been prescribed to her by her physician. Advised to eat 3 nutritious meals a day and take a multivitamin. Advised to follow-up this week with her primary care physician to set up a follow-up visit. Gave strict return precautions to the ED. Patient grateful, verbalized understanding and agreed with plan of discharge. (TANIKA CAMARENA MD) Dragon Disclaimer Dragon Disclaimer This electronic medical record was generated, in whole or in part, using a voice recognition dictation system. (BRENDA BAKER DO) Departure Departure: Impression: Primary Impression: Abdominal pain Additional Impressions: Noncompliance with medication regimen Amphetamine-type substance use disorder, mild, abuse Nausea & vomiting Disposition: 01 HOME / SELF CARE / HOMELESS Condition: IMPROVED Referrals: PCP,BAY (PCP) DINO ROMAN Patient Instructions: Abdominal Pain (Nonspecific), Amphetamine Abuse, Nausea and Vomiting Additional Instructions: Thank you for coming into the emergency department tonight and allowing us to take care of you. Please read all the attached information to go back over things we discussed. Please be sure not to take any substances that have not been prescribed to you by a physician. Please eat 3 nutritious meals a day and take a multivitamin. Please stay well-hydrated. Please take your antibiotics as prescribed until gone for your urinary tract infection. Please follow-up this week with your primary care physician or at the number provided if you wou ld like to switch primary care physicians and establish care. Please set up a follow-up visit as soon as you can with these primary care physicians. Please come back to the ED with new or concerning symptoms as discussed. Scripts Cephalexin (KEFLEX) 500 Mg Capsule 1 CAP PO BID for UTI for 5 Days, #10 CAP Prov: TANIKA CAMARENA MD 07/17/21 Problem Qualifiers BRENDA BAKER DO Jul 17, 2021 17:15 TANIKA CAMARENA MD Jul 17, 2021 18:36
--- NOTE | 2021-07-17 18:04 | EKG ---
[address] [address] Test Date: 2021-07-17 Test Time: 17:36:52 Pat Name: CHALO RAYMUNDO Department: Room: Gender: F Centerpuncher: CARLOS : 1990 Requested By: BRENDA BAKER Order Number: [id number] Reading MD: Measurements Intervals [place] Rate: 90 P: 34 DE: 130 QRS: 69 QRSD: 90 T: 52 QT: 342 QTc: 422 Interpretive Statements SINUS RHYTHM NORMAL ECG RI6.02 No previous ECG available for comparison
[2021-07-17 18:05] LABS: CALCIUM 8.3 mg/dL (8.5-10.1); CREATININE 0.6 mg/dL (0.6-1.0); GFR 117.4; POTASSIUM 3.7 mmol/L (3.5-5.1)
[2021-07-17 18:13] LABS: ALBUMIN 3.5 g/dL (3.4-5.0); TOTAL BILIRUBIN 0.5 mg/dL (0.2-1.0); TOTAL PROTEIN 6.9 g/dL (6.4-8.2)
[2021-07-17] MEDS ORDERED: PROMETHAZINE 25 MG SUPP.RECT. PR ONE (18:15)
[2021-07-17 18:20] LABS: BARBITURATES NEG (NEG); BENZODIAZEPINES NEG (NEG); CANNABINOIDS NEG (NEG); COCAINE NEG (NEG); METHADONE NEG (NEG); OPIATES NEG (NEG); PHENCYCLIDINE NEG (NEG)
[2021-07-17 18:22] LABS: AMPHETAMINE/METHAMPHETAMINE POS (NEG)
[2021-07-17 18:23] LABS: BACTERIA,URINE MANY /HPF (0-FEW); BILIRUBIN,URINE NEG (NEG); CLARITY,URINE CLOUDY; COLOR,URINE YELLOW; GLUCOSE,URINE >=1000 mg/dL (NEG); NITRITE,URINE NEG (NEG); SQUAMOUS EPITHELIAL CELL,UR FEW /LPF; UROBILINOGEN,URINE 0.2 mg/dL (0.2 mg/dL); WBC,URINE >40 /HPF (0-4)
[2021-07-17] MEDS ORDERED: KETOROLAC 15 MG/ML VIAL. IVP ONE (18:30)
[2021-07-17] MEDS ORDERED: diphenhydrAMINE 50 MG/ML VIAL IVP ONE (18:30)
[2021-07-17] MEDS ORDERED: CEPH500C PO (18:35)
[2021-07-17] MEDS ORDERED: IV NORMAL SALINE 50ML 50 ML ONE (18:42)
[2021-07-17] MEDS ORDERED: cefTRIAXone SODIUM 1 GM VIAL ONE (18:42)
[2021-07-17 19:05] VITALS: BP 155/93
[2021-07-17] MEDS ORDERED: ONDANSETRON ODT 4 MG TAB.RAPDIS PO ONE (19:30)
== END 2021-07-17 19:25 | disposition home or self-care (01) ==
LOC: ER 16:57
DX: R10.84 Generalized abdominal pain (principal); R11.2 Nausea with vomiting, unspecified; F41.9 Anxiety disorder, unspecified; E10.9 Type 1 diabetes mellitus without complications; F17.210 Nicotine dependence, cigarettes, uncomplicated; Z91.14 Patient's other noncompliance with medication regimen; Z88.8 Allergy status to other drugs, medicaments and biological substances
CPT/HCPCS: 36415; 80053; 80307; 81001; 81025; 82010; 82947; 87086; 93005; 96361; 96365; 96375; 99284; J0696; J1200; J1885; J7030; 87077

== ENCOUNTER 2021-07-19 17:22 | Emergency (ER) | payer MEDICAID ==
[~2021-07-19] VITALS: Ht 167.6 cm; Wt 55.9 kg
--- NOTE | 2021-07-19 18:51 | PHYS DOC ---
Past History Past Medical History: Anxiety, Constipation, Diabetes, GERD, Ovarian Cyst, Other Additional Past Medical Histor: gastroparesis, drug abuse Past Surgical History: Other Additional Past Surgical Histo: ovarian cysts removed Smoking: Cigarettes, Less than 1pk/day Alcohol Use: None Drug Use: Marijuana, Methamphetamine General Adult EDM: Chief Complaint: BLOOD SUGAR PROBLEM HPI: HPI: ".. I am vomiting.. dehydrated.. sugars up...." .." I hurt..." Patient is a 31 year old female who presents with above hx and complaints of nausea, vomiting, with hyperglycemia. Patient is well known to the ED staff for multiple previous visits and previous admissions for diabetic ketoacidosis. Patient has had multiple episodes of noncompliance with her home meds. She has known history of gastroparesis and cyclic vomiting. Patient recently seen in the emergency room 2 days ago for similar presentation.. Patient admitted on 05/13 for a episode of DKA, polysubstance abuse, frequent urinary tract infections, depression, dehydration, and cyclic vomiting. Patient presents with obvious dehydration and cyclic vomiting currently. Review of Systems: Review of Systems: Constitutional: Denies fever or chills Eyes: Denies change in visual acuity HENT: Denies nasal congestion or sore throat Respiratory: Denies cough or shortness of breath Cardiovascular: Denies chest pain or edema GI: Denies abdominal pain, nausea, vomiting, bloody stools or diarrhea : Denies dysuria Musculoskeletal: Denies back pain or joint pain Integument: Denies rash Neurologic: Denies headache, focal weakness or sensory changes Endocrine: Denies polyuria or polydipsia Lymphatic: Denies swollen glands Psychiatric: Denies depression or anxiety Family History: Family History: Noncontributory to presentation Current Medications: Current Meds: See nursing for home meds Allergies: Allergies: Allergies Coded Allergies Type Severity Reaction Last Updated Verified acetaminophen Allergy Intermediate HIVES 05/12/21 Yes adhesive tape Allergy Intermediate 05/12/21 Yes Physical Exam: PE: Constitutional: in acute distress, non-toxic appearance. [] HENT: Normocephalic, atraumatic, bilateral external ears normal, oropharynx dry, no oral exudates, nose normal. [] Eyes: PERRLA, EOMI, conjunctiva normal, no discharge. [] Neck: Normal range of motion, no tenderness, supple, no stridor. [] Cardiovascular: Tachycardia heart rate regular rhythm, no murmur [] Lungs & Thorax: Bilateral breath sounds equal apex with few scattered wheezes on auscultation [] Abdomen: Bowel sounds normal, soft, marked epigastric tenderness, no masses, no pulsatile masses. [] Skin: Warm, dry, no erythema, no rash. Poor turgor- tenting Back: No tenderness, no CVA tenderness. [] Extremities: No tenderness, no cyanosis, no clubbing, ROM intact, no edema. No cording appreciated Neurologic: Alert and oriented X 3, normal motor function, normal sensory function, no focal deficits noted. [] Psychologic: Affect anxious, tearful,, judgement normal, mood depressed. [] Current Patient Data: Labs: Laboratory Tests Test 07/19/21 17:46 Glucose (Fingerstick) 435 mg/dL (70-99) H EKG: EKG: My interpretation of EKG #1 shows a sinus tachycardia 128 bpm. Some bimodal P waves and left leads. Abnormal EKG, but no findings acute STEMI with contralateral changes. Time of this EKG is 1906 hr.s My interpretation of second EKG shows a sinus tachycardia 115 bpm. No acute morphology changes from prior EKG. Time of this EKG is 2151 hrs. Radiology/Procedures: Radiology/Procedures: [][address] [address] IMAGING REPORT Signed PATIENT: CHALO RAYMUNDO ACCOUNT: [id number] : 1990 LOCATION: ER AGE: 31 SEX: F EXAM STATUS: REG ER ORD. PHYSICIAN: YELENA HENRY MD REASON: n/v/dka PROCEDURE: ACUTE ABDOMEN SERIES EXAMINATION: Abdominal complete acute radiograph. VIEWS: Single view of the chest and 2 views of the abdomen COMPARISON: 05/10/2021 INDICATION: 31 years, Female, nausea vomiting.. FINDINGS: Nonobstructive bowel gas pattern. Moderate amount of colonic stool burden. No gross pneumoperitoneum.No abnormal intra-abdominal calcifications. Normal cardiomediastinal silhouette. No focal consolidation, pleural effusion or pneumothorax.No acute process process. Right L5 sacralization. IMPRESSION: Nonobstructive bowel gas pattern. Moderate amount of colonic stool burden. Electronically signed by: Gina Wise MD (07/19/2021 7:26 PM) [facility] DICTATED AND SIGNED BY: GINA WISE MD DATE: 07/19/211923 CC: YELENA HENRY MD; PCP,NO ~MTH0 0 Heart Score: C/O Chest Pain: Yes HEART Score for Chest Pain: HEART Score for Chest Pain Response (Comments) Value History Slighlty/Non-Suspicious 0 ECG Nonspecific Repolarizatio 1 Age < 45 0 Risk Factors 1 or 2 Risk Factors 1 Troponin < Normal Limit 0 Total 2 Risk Factors: Risk Factors: DM, Current or recent (<one month) smoker, HTN, HLP, family history of CAD, obesity. Risk Scores: Score 0 - 3: 2.5% MACE over next 6 weeks - Discharge Home Score 4 - 6: 20.3% MACE over next 6 weeks - Admit for Clinical Observation Score 7 - 10: 72.7% MACE over next 6 weeks - Early Invasive Strategies Course & Med Decision Making: Course & Med Decision Making Pertinent Labs and Imaging studies reviewed. (See chart for details) Patient initially seen in triage then again and schreiber bed 1 and eventually and room 3. Discussed presentation, testing and treatment plan with Dr. Pereira. Plan admission for rehydration and stabilization sedation of glucose with insulin drip. Continue Insulin qtts until pt. at least clear Ketones in urine. Suspect most electrolyte abnormalities will clear promptly with hydration and insulin - or have on previous admits. Treat pain complaints. Impression: 1. DKA-recurrent 2. Dehydration 3. Leukocytosis 18.2 (suspect reactive) 4. Hyponatremia 126-suspect related to elevated glucose) 5. Hyper kalemia 5.6 6. Cyclical vomiting/ gastroparesis 7. Constipation 8. History of noncompliance 9. History of polysubstance abuse-currently drug screen negative Crtical care 90 mins. [] Dragon Disclaimer: Abdirashidon Disclaimer: This electronic medical record was generated, in whole or in part, using a voice recognition dictation system. Departure Departure: Referrals: PCP,NO (PCP) Annelise Disclaimer This chart was dictated in whole or in part using Voice Recognition software in a busy, high-work load, and often noisy Emergency Department environment. It may contain unintended and wholly unrecognized errors or omissions. YELENA HENRY MD Jul 19, 2021 18:50
[2021-07-19] MEDS ORDERED: IV NORMAL SALINE 1,000ML 1,000 ML IV SCH ×2 (19:00→21:00)
[2021-07-19] MEDS ORDERED: INSULIN REGULAR 100 UNIT/ML 3ML VIAL. IV ONE (19:00)
[2021-07-19] MEDS ORDERED: ONDANSETRON PF 4 MG/2 ML VIAL. IVP ONE (19:00)
[2021-07-19 19:13] LABS: BASO # 0.1 x10^3/uL (0.0-0.2); BASO % 1 % (0-3); EOS % 0 % (0-3); HEMOGLOBIN 13.3 g/dL (12.0-15.5); LYMPH # 1.6 x10^3/uL (1.0-4.8); LYMPH % 9 % (24-48); MEAN CORPUSCULAR HEMOGLOBIN 30 pg (25-35); MEAN CORPUSCULAR HGB CONC 33 g/dL (31-37); MEAN CORPUSCULAR VOLUME 92 fL (79-100); MONO # 0.7 x10^3/uL (0.0-1.1); MONO % 4 % (0-9); NEUT # 15.7 x10^3uL (1.8-7.7); NEUT % 87 % (31-73); PLATELET COUNT 368 x10^3/uL (140-400); RED BLOOD COUNT 4.46 x10^6/uL (3.50-5.40); RED CELL DISTRIBUTION WIDTH 13.1 % (11.5-14.5); WHITE BLOOD COUNT 18.2 x10^3/uL (4.0-11.0)
--- NOTE | 2021-07-19 19:29 | RAD ---
EXAMINATION: Abdominal complete acute radiograph. VIEWS: Single view of the chest and 2 views of the abdomen COMPARISON: 05/10/2021 INDICATION: 31 years, Female, nausea vomiting.. FINDINGS: Nonobstructive bowel gas pattern. Moderate amount of colonic stool burden. No gross pneumoperitoneum. No abnormal intra-abdominal calcifications. Normal cardiomediastinal silhouette. No focal consolidati on, pleural effusion or pneumothorax.No acute process process. Right L5 sacralization. IMPRESSION: Nonobstructive bowel gas pattern. Moderate amount of colonic stool burden. Electronically signed by: Nano Wise MD (07/19/2021 7:26 PM) [facility]
[2021-07-19 19:31] LABS: ALBUMIN 3.6 g/dL (3.4-5.0); CALCIUM 8.4 mg/dL (8.5-10.1); CREATININE 1.3 mg/dL (0.6-1.0); DIRECT BILIRUBIN 0.2 mg/dL (0.0-0.2); GFR 48.1; MAGNESIUM 2.1 mg/dL (1.8-2.4); POTASSIUM 5.6 mmol/L (3.5-5.1); TOTAL BILIRUBIN 0.7 mg/dL (0.2-1.0); TOTAL PROTEIN 6.8 g/dL (6.4-8.2)
--- NOTE | 2021-07-19 19:32 | EKG ---
[facility] [address] [place] [address] Test Date: 2021-07-19 Test Time: 19:06:44 Pat Name: CHALO RAYMUNDO Department: Room: Gender: F Clerical Manager: REI : 1990 Requested By: YELENA HENRY Order Number: [id number] Reading MD: Measurements Intervals [place] Rate: 128 P: 70 CT: 118 QRS: 80 QRSD: 80 T: 49 QT: 280 QTc: 412 Interpretive Statements SINUS TACHYCARDIA LEFT ATRIAL ABNORMALITY ABNORMAL ECG RI6.02 No previous ECG available for comparison
[2021-07-19] MEDS ORDERED: SODIUM BICARB ADULT 8.4% 50 MEQ/50 ML DISP.SYRIN. IV ONE (19:45)
[2021-07-19 20:16] LABS: BARBITURATES NEG (NEG); BENZODIAZEPINES NEG (NEG); CANNABINOIDS NEG (NEG); COCAINE NEG (NEG); METHADONE NEG (NEG); OPIATES NEG (NEG); PHENCYCLIDINE NEG (NEG)
[2021-07-19 20:21] LABS: AMPHETAMINE/METHAMPHETAMINE NEG (NEG)
[2021-07-19] MEDS ORDERED: ONDANSETRON PF 4 MG/2 ML VIAL. IVP PRN (20:30)
[2021-07-19] MEDS ORDERED: INSULIN REGULAR VIAL 100 UNIT in IV NORMAL SALINE 100ML 100 ML IV PRN (20:30)
[2021-07-19] MEDS ORDERED: ONDANSETRON ODT 4 MG TAB.RAPDIS PO PRN (20:30)
[2021-07-19 20:32] LABS: % LYMPHS 5 % (24-48); % MONOS 4 % (0-10); % SEGS 91 % (35-66); PLT ESTIMATE INCREASED (ADEQUATE)
[2021-07-19 20:36] LABS: BILIRUBIN,URINE NEG (NEG); CLARITY,URINE CLOUDY; COLOR,URINE YELLOW; GLUCOSE,URINE 500 mg/dL (NEG); NITRITE,URINE NEG (NEG); UROBILINOGEN,URINE 0.2 mg/dL (0.2 mg/dL)
[2021-07-19 20:38] LABS: BACTERIA,URINE 0 /HPF (0-FEW)
[2021-07-19] MEDS ORDERED: IV NORMAL SALINE 1,000ML 1,000 ML IV ONE (21:00)
[2021-07-19] MEDS ORDERED: IV NORMAL SALINE 100ML 100 ML ONE (21:58)
--- NOTE | 2021-07-19 22:02 | EKG ---
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
[2021-07-19] MEDS ORDERED: METOCLOPRAMIDE HCL 10 MG/2 ML VIAL. ONE (22:39)
[2021-07-19] MEDS ORDERED: METOCLOPRAMIDE HCL 10 MG/2 ML VIAL. IVP ONE (23:45)
[2021-07-20] VITALS (9 sets, daily range): BP systolic 108–131; BP diastolic 56–76
[2021-07-20] MEDS ORDERED: MORPHINE SULFATE 10 MG/ML SYRINGE. SQ ONE (02:30)
[2021-07-20] MEDS ORDERED: diphenhydrAMINE 50 MG/ML VIAL IM ONE (02:30)
[2021-07-20] MEDS ORDERED: PROCHLORPERAZINE 10 MG/2 ML VIAL. IM ONE (02:30)
[2021-07-20 07:55] LABS: CALCIUM 7.3 mg/dL (8.5-10.1); CREATININE 0.9 mg/dL (0.6-1.0); GFR 73.5; POTASSIUM 4.2 mmol/L (3.5-5.1)
[2021-07-20] MEDS ORDERED: IPRATRPIUM/ALBUTEROL 0.5/2.5MG 3 ML NEBU. NEB SCH (08:00)
--- NOTE | 2021-07-20 10:00 | NUR ---
Dr Pereira updated by phone on pt's status ie insulin off x 1 hour with fsbs 158 at 0958, basic metabolic results this am with anion gap 13; no new orders at this time
--- NOTE | 2021-07-20 11:44 | NUR ---
Dr Pereira in to see pt
[2021-07-20] MEDS ORDERED: METOCLOPRAMIDE HCL 10 MG/2 ML VIAL. ONE (11:59)
[2021-07-20] MEDS ORDERED: METOCLOPRAMIDE HCL 10 MG/2 ML VIAL. IVP ONE (12:00)
[2021-07-20] MEDS ORDERED: DEXTROSE 50% 25 GM / 50ML DISP.SYRIN. IV PRN (12:15)
[2021-07-20] MEDS ORDERED: INSULIN LISPRO 300 UNITS/3 ML VIAL. SQ ONE (12:19)
--- NOTE | 2021-07-20 12:26 | SSS ---
ADMIT DATE: 07/19/2021 HISTORY OF PRESENT ILLNESS: The patient is a 31-year-old female patient who yet again came to the Emergency Room with a complaint of vomiting, abdominal pain. Her blood sugar was extremely high. She is obviously well known to the Emergency Room and the hospital staff as she has been here, who has been admitted numerous times for diabetic ketoacidosis. She is unfortunately noncompliant with her home medication, has had history of gastroparesis and cyclic vomiting. She was evaluated in the Emergency Room and her lab work showed that her white cell count was high at 18,000. Her blood sugar was 506. She has dilutional hyponatremia, hyperkalemia and severe metabolic acidosis with a sodium bicarbonate of 7. She was treated aggressively with IV fluid as well as insulin drip and she did actually very well and as of this morning, her serum sodium has normalized, potassium is 4.2, anion gap is down to 13. Her BUN is 31, creatinine 0.9. Her blood sugar was 158. She stated that she is hungry, so we will give her her lunch and continue on her insulin sliding scale and the patient basically is back to her baseline and she should be able to be discharged home. PAST MEDICAL HISTORY: Significant for insulin-dependent type 2 diabetes mellitus. She is known to have diabetic gastroparesis and has had diabetic peripheral neuropathy, has been also known to abuse amphetamine and other recreational drugs. PAST SURGICAL HISTORY: Significant for Port-A-Cath placement and removal, as well as incision and drainage of her left axillary abscess. She had also upper GI endoscopy. FAMILY HISTORY: Noncontributory. SOCIAL HISTORY: She lives with her mom. She is single. She claims that she does not smoke, drink alcohol or use recreational drugs. REVIEW OF SYSTEMS: As per history of present illness. PHYSICAL EXAMINATION: GENERAL: On arrival to the Emergency Room, she was awake, alert. There was no pallor, jaundice, cyanosis or thyromegaly. No jugular venous distention. No lower limb edema. VITAL SIGNS: Her heart rate was 99, blood pressure is 113/65, temperature was 98.1, respiratory rate was 18 and oxygen saturation was 99%. HEAD, EYES, EARS, NOSE, AND THROAT: Normocephalic, atraumatic. NECK: Supple. HEART: Showed normal first and second sounds. No gallop, rub or murmur. CHEST: Clear to auscultation. No crepitation or rhonchi. ABDOMEN: Scaphoid, soft, nontender. NEUROLOGIC: She was grossly intact. LABORATORY DATA: Her lab work on admission showed a white cell count of 18,200, hemoglobin 13, hematocrit 41, MCV 92 and platelet count 368,000. Her chemistry on arrival showed that her serum sodium was 126, potassium 5.6, chloride 91, bicarbonate 7, anion gap of 28, BUN of 45, creatinine 1.3. Estimated GFR was 48 mL per minute. Her glucose was 506. Her calcium was 8.4, magnesium was 2.1. Total bilirubin, AST, ALT, alkaline phosphatase were normal. Total protein 6.8, albumin was 3.6. Her toxic screen was negative, and her urinalysis was essentially unremarkable. The patient was treated with IV fluid and insulin drip as per protocol and she did actually very well. When I saw her this afternoon, she was resting slightly propped up in bed, in no apparent distress. On questioning her, she stated that she is hungry. When I examined her, she looked well and was clearly in no apparent respiratory distress. No pallor, jaundice, cyanosis, or thyromegaly. No jugular venous distention. No lower limb edema. Her heart rate was 95, blood pressure was 109/59, temperature was 98, respiratory rate was 16 and oxygen saturation was 99% on room air. The rest of clinical exam stable. Her lab work at the time I saw her showed a serum sodium of 133, potassium 4.2, chloride 104, bicarbonate 16, anion gap of 13, BUN 31, creatinine 0.9. Estimated GFR was 73 mL per minute. Her glucose 178 and calcium was 7.3. The anion gap has closed. All the other electrolytes anomalies have been corrected. ASSESSMENT AND PLAN: We discontinued the insulin drip. She would eat her lunch and will be discharged home to continue on her regimen of Lantus 20 units twice a day and Humalog insulin as per insulin sliding scale before meals. JOSÉ/WINIFRED DR: Alyssa TID: [id number]
--- NOTE | 2021-07-20 14:35 | NUR ---
pt given discharge instructions at 1250, awaiting ride home, states her mother gets off work at 3pm today and she will have to wait until then to leave
--- NOTE | 2021-07-20 15:25 | NUR ---
pt's ride here to take pt home; pt ambulatory off unit; no change in status; discharge instructions given, pt verbalized understanding
[2021-07-20] MEDS ORDERED: INSULIN LISPRO 300 UNITS/3 ML VIAL. SQ SCH (17:00)
[2021-08-02] MEDS ORDERED: CEPH500C PO (04:55)
[2021-08-02] MEDS ORDERED: FLUC100T7 PO (04:55)
[2021-08-02] MEDS ORDERED: PROC10TA57 PO (04:56)
== END 2021-07-20 14:22 | disposition admitted as inpatient to this hospital (09) ==
LOC: ER 17:22
DX: E11.65 Type 2 diabetes mellitus with hyperglycemia (principal); E11.10 Type 2 diabetes mellitus with ketoacidosis without coma; E86.0 Dehydration; D72.829 Elevated white blood cell count, unspecified; E87.1 Hypo-osmolality and hyponatremia; E87.5 Hyperkalemia; K59.00 Constipation, unspecified; F41.9 Anxiety disorder, unspecified; K21.9 Gastro-esophageal reflux disease without esophagitis; F17.210 Nicotine dependence, cigarettes, uncomplicated; Z91.19 Patient's noncompliance with other medical treatment and regimen; Z88.8 Allergy status to other drugs, medicaments and biological substances
CPT/HCPCS: 36415; 74022; 80048; 80076; 80307; 81001; 82550; 82947; 83690; 83735; 83880; 84484; 85007; 85025; 93005; 96361; 96365; 96366; 96372; 96375; 96376; 99285; J1815; J2405; J2765; J7030

== ENCOUNTER 2021-07-22 20:15 | Emergency (ER) | payer MEDICAID ==
[~2021-07-22] VITALS: Ht 167.6 cm; Wt 55.9 kg
--- NOTE | 2021-07-22 21:28 | PHYS DOC ---
Past History Past Medical History: Anxiety, Constipation, Depression, Diabetes, GERD, Ovarian Cyst, Other Additional Past Medical Histor: gastroparesis, drug abuse Past Surgical History: Other Additional Past Surgical Histo: ovarian cysts removed Smoking: Cigarettes, Less than 1pk/day Alcohol Use: None Drug Use: Marijuana, Methamphetamine General Adult EDM: Chief Complaint: HYPERGLYCEMIA HPI: HPI: "I am hurting.. and vomiting.. ".." It my gastro paresis.." Patient is a 31 year old female who presents with above hx and well know to ED staff. Has had multiple ED evaluations and treatments and multiple admissions for diabetic ketoacidosis , noncompliance of her meds and polysubstance abuse. Patient frequently found to have positive drug screen for methamphetamine. Diamante long has history of diabetic gastroparesis and cyclic vomiting. Patient has had increased vomiting today and complaints of dehydration. She reportedly has been taking her insulin but compliance is always a question with this patient. Patient just here for a DKA evaluation and tx on 07/19. The patient's sugars currently are not markedly elevated and are at 267. Patient has a past medical history of anxiety, depression, cyclic vomiting, polysubstance abuse, preference for methamphetamine use, diabetes, DKA, constipation, and narcotic seeking behaviors. Patient denies intake of bad food. Patient denies any fever or chills. Patient denies any recent travel. Patient denies any trauma. Patient denies any specific ill contacts. Review of Systems: Review of Systems: Constitutional: Denies fever or chills Eyes: Denies change in visual acuity HENT: Denies nasal congestion or sore throat Respiratory: Denies cough or shortness of breath Cardiovascular: Denies chest pain or edema GI: Complains of epigastric abdominal pain, nausea, vomiting,. Denies bloody stools or diarrhea : Denies dysuria Musculoskeletal: Denies back pain or joint pain Integument: Denies rash Neurologic: Denies headache, focal weakness or sensory changes Endocrine: Denies polyuria or polydipsia Lymphatic: Denies swollen glands Psychiatric: Denies depression or anxiety Family History: Family History: Noncontributory to presentation Current Medications: Current Meds: See nursing for home meds Allergies: Allergies: Allergies Coded Allergies Type Severity Reaction Last Updated Verified acetaminophen Allergy Intermediate HIVES 07/22/21 Yes adhesive tape Allergy Intermediate 07/22/21 Yes Physical Exam: PE: Constitutional: in acute distress, ill in appearance. [] HENT: Normocephalic, atraumatic, bilateral external ears normal, oropharynx dry, no oral exudates, nose normal. [] Eyes: PERRLA, EOMI, conjunctiva normal, no discharge. [] Neck: Normal range of motion, no tenderness, supple, no stridor. [] Cardiovascular: Tachycardia heart rate regular rhythm, no murmur [] Lungs & Thorax: Bilateral breath sounds equal apex with scattered wheezes auscultation [] Abdomen: Bowel sounds decreased, soft, gastric tenderness, no masses, no pulsatile masses. Distended. Rebound epigastric area Skin: Warm, dry, no erythema, no rash. Poor turgor tenting Back: No tenderness, no CVA tenderness. [] Extremities: No tenderness, no cyanosis, no clubbing, ROM intact, no edema. No Trousseau sign. No cording. Neurologic: Alert and oriented X 3, normal motor function, normal sensory function, no focal deficits noted. [] Psychologic: Affect anxious, judgement normal, mood depressed. Current Patient Data: Labs: Laboratory Tests Test 07/22/21 20:40 Glucose (Fingerstick) 228 mg/dL (70-99) H Vital Signs: Vital Signs Date Time Temp Pulse Resp B/P (MAP) Pulse Ox O2 Delivery O2 Flow Rate FiO2 07/22/21 20:20 98.2 85 22 167/110 (129) 98 Room Air EKG: EKG: My interpretation EKG shows a sinus rhythm at 93 bpm. No acute morphology time of this EKG was 105 hours. [] Radiology/Procedures: Radiology/Procedures: [][address] [address] IMAGING REPORT Signed PATIENT: CHALO RAYMUNDO ACCOUNT: [id number] : 1990 LOCATION: ER AGE: 31 SEX: F EXAM STATUS: PRE ER ORD. PHYSICIAN: EYLENA HENRY MD REASON: abdominal pain PROCEDURE: ACUTE ABDOMEN SERIES EXAMINATION: Abdominal complete acute radiograph. VIEWS: Single view the chest and 2 views of the abdomen COMPARISON: 07/19/2021 INDICATION: 31 years, Female, abdominal pain. FINDINGS: Nonobstructive bowel gas pattern. Similar moderate amount of colonic stool burden. No gross pneumoperitoneum.No abnormal intra-abdominal calcifications. Lung bases are unremarkable.No acute process process. Partial right L5 sacralization. IMPRESSION: 1. Nonobstructive bowel gas pattern. 2. Similar moderate amount of colonic stool burden. 3. No acute cardiopulmonary process. Electronically signed by: Gina Wise MD (07/22/2021 10:26 PM) [facility] DICTATED AND SIGNED BY: GINA WISE MD DATE: 07/22/212223 CC: YELENA HENRY MD; PCP,NO ~MTH0 0 Heart Score: C/O Chest Pain: Yes HEART Score for Chest Pain: HEART Score for Chest Pain Response (Comments) Value History Slighlty/Non-Suspicious 0 ECG Normal 0 Age < 45 0 Risk Factors No Risk Factors 0 Troponin < Normal Limit 0 Total 0 Risk Factors: Risk Factors: DM, Current or recent (<one month) smoker, HTN, HLP, family hist ory of CAD, obesity. Risk Scores: Score 0 - 3: 2.5% MACE over next 6 weeks - Discharge Home Score 4 - 6: 20.3% MACE over next 6 weeks - Admit for Clinical Observation Score 7 - 10: 72.7% MACE over next 6 weeks - Early Invasive Strategies Course & Med Decision Making: Course & Med Decision Making Pertinent Labs and Imaging studies reviewed. (See chart for details) Pt. currently refusing IV or blood draws or ABG. 2225 hrs. Patient eventually agreed to IV sticks. Patient was hydrated with normal saline. Given Toradol and Compazine. . Patient eventually requested discha rge. Ambulatory without problems. Patient encouraged follow-up primary care. Recommend patient stay on a clear fluid diet for the next 48 hours. Patient follow-up primary care. Patient take her diabetic meds as previously directed. Impression: 1. Diabetes glucose 267 2. Diabetic gastroparesis/cyclic vomiting syndrome 3. Constipation 4. Dehydration 5. History of noncompliance 6. History of polysubstance abuse 7. Elevated CK 340 wth Trop.0.017 [] Annelise Disclaimer: Annelise Disclaimer: This electronic medical record was generated, in whole or in part, using a voice recognition dictation system. Departure Departure: Referrals: PCP,NO (PCP) Annelise Disclaimer This chart was dictated in whole or in part using Voice Recognition software in a busy, high-work load, and often noisy Emergency Department environment. It may contain unintended and wholly unrecognized errors or omissions. YELENA HENRY MD Jul 22, 2021 21:28
[2021-07-22] MEDS ORDERED: INSULIN REGULAR VIAL 100 UNIT in IV NORMAL SALINE 100ML 100 ML IV PRN (21:30)
[2021-07-22] MEDS ORDERED: IV RINGERS SOLUTION,LACTATED 1,000 ML IV SCH (21:30)
[2021-07-22] MEDS ORDERED: IV NORMAL SALINE 1,000ML 1,000 ML IV ONE (21:30)
[2021-07-22] MEDS ORDERED: KETOROLAC 30 MG/ML VIAL. IM ONE (21:30)
[2021-07-22] MEDS ORDERED: FAMOTIDINE 20 MG/2 ML VIAL IVP ONE (21:30)
[2021-07-22] MEDS ORDERED: INSULIN REGULAR 100 UNIT/ML 3ML VIAL. IV ONE (21:30)
[2021-07-22] MEDS ORDERED: KETOROLAC 60 MG/2 ML VIAL. IM ONE (21:30)
[2021-07-22] MEDS ORDERED: diphenhydrAMINE 50 MG/ML VIAL ONE (21:30)
[2021-07-22] MEDS ORDERED: diphenhydrAMINE 50 MG/ML VIAL IM ONE ×2 (21:30)
[2021-07-22] MEDS ORDERED: PROCHLORPERAZINE 10 MG/2 ML VIAL. IM ONE ×2 (21:30)
[2021-07-22] MEDS ORDERED: ONDANSETRON PF 4 MG/2 ML VIAL. IVP ONE (21:30)
--- NOTE | 2021-07-22 22:28 | RAD ---
EXAMINATION: Abdominal complete acute radiograph. VIEWS: Single view the chest and 2 views of the abdomen COMPARISON: 07/19/2021 INDICATION: 31 years, Female, abdominal pain. FINDINGS: Nonobstructive bowel gas pattern. Similar moderate amount of colonic stool burden. No gross pneumoper itoneum.No abnormal intra-abdominal calcifications. Lung bases are unremarkable.No acute process proc ess. Partial right L5 sacralization. IMPRESSION: 1. Nonobstructive bowel gas pattern. 2. Similar moderate amount of colonic stool burden. 3. No acute cardiopulmonary process. Electronically signed by: Nano Wise MD (07/22/2021 10:26 PM) [facility]
[2021-07-23 00:10] LABS: BASO % 1 % (0-3); EOS # 0.1 x10^3/uL (0.0-0.7); EOS % 1 % (0-3); HEMATOCRIT 39.8 % (36.0-47.0); HEMOGLOBIN 13.5 g/dL (12.0-15.5); LYMPH # 1.4 x10^3/uL (1.0-4.8); LYMPH % 22 % (24-48); MEAN CORPUSCULAR HEMOGLOBIN 31 pg (25-35); MEAN CORPUSCULAR HGB CONC 34 g/dL (31-37); MEAN CORPUSCULAR VOLUME 90 fL (79-100); MONO # 0.4 x10^3/uL (0.0-1.1); MONO % 7 % (0-9); NEUT # 4.3 x10^3uL (1.8-7.7); NEUT % 69 % (31-73); PLATELET COUNT 277 x10^3/uL (140-400); RED BLOOD COUNT 4.42 x10^6/uL (3.50-5.40); RED CELL DISTRIBUTION WIDTH 13.2 % (11.5-14.5); WHITE BLOOD COUNT 6.2 x10^3/uL (4.0-11.0)
[2021-07-23] MEDS ORDERED: IV RINGERS SOLUTION,LACTATED 1,000 ML IV ONE (00:15)
[2021-07-23] MEDS ORDERED: MORPHINE SULFATE 10 MG/ML SYRINGE. SQ ONE (00:15)
[2021-07-23] MEDS ORDERED: MORPHINE SULFATE 10 MG/ML SYRINGE. ONE (00:16)
[2021-07-23 00:27] LABS: CALCIUM 8.6 mg/dL (8.5-10.1); CREATININE 0.6 mg/dL (0.6-1.0); GFR 117.4; POTASSIUM 3.7 mmol/L (3.5-5.1)
[2021-07-23 00:34] LABS: ALBUMIN 3.4 g/dL (3.4-5.0); DIRECT BILIRUBIN 0.1 mg/dL (0.0-0.2); TOTAL BILIRUBIN 0.5 mg/dL (0.2-1.0); TOTAL PROTEIN 6.5 g/dL (6.4-8.2)
[2021-07-23 01:30] VITALS: BP 114/60
--- NOTE | 2021-07-23 01:38 | EKG ---
[address] [address] Test Date: 2021-07-23 Test Time: 01:05:36 Pat Name: CHALO RAYMUNDO Department: Room: Gender: F Application Development Director: : 1990 Requested By: YELENA HENRY Order Number: [id number] Reading MD: Measurements Intervals [place] Rate: 93 P: 12 [place]: 128 QRS: 62 QRSD: 84 T: 42 QT: 348 QTc: 435 Interpretive Statements SINUS RHYTHM NORMAL ECG RI6.02 No previous ECG available for comparison
[2021-08-02] MEDS ORDERED: FLUC100T7 PO (04:55)
[2021-08-02] MEDS ORDERED: CEPH500C PO (04:55)
[2021-08-02] MEDS ORDERED: PROC10TA57 PO (04:56)
== END 2021-07-23 02:05 | disposition home or self-care (01) ==
LOC: ER 20:15
DX: E11.43 Type 2 diabetes mellitus with diabetic autonomic (poly)neuropathy (principal); K31.84 Gastroparesis; K59.00 Constipation, unspecified; E86.0 Dehydration; R79.89 Other specified abnormal findings of blood chemistry; F41.9 Anxiety disorder, unspecified; F32.9 Major depressive disorder, single episode, unspecified; K21.9 Gastro-esophageal reflux disease without esophagitis; F17.210 Nicotine dependence, cigarettes, uncomplicated; F12.10 Cannabis abuse, uncomplicated; F15.10 Other stimulant abuse, uncomplicated; Z88.8 Allergy status to other drugs, medicaments and biological substances
CPT/HCPCS: 36415; 74022; 80048; 80076; 82550; 82803; 82947; 83690; 84484; 85025; 93005; 96361; 96372; 96374; 96375; 99285; J0780; J1200; J1885; J2270; J2405; J3490; J7120

== ENCOUNTER 2021-07-26 15:38 | Inpatient (IN) | payer MEDICAID ==
[~2021-07-26] VITALS: Ht 172.7 cm; Wt 58.0 kg
[2021-07-26] MEDS ORDERED: IV RINGERS SOLUTION,LACTATED 1,000 ML IV ONE ×2 (15:45→16:00)
--- NOTE | 2021-07-26 15:49 | PHYS DOC ---
Past History Past Medical History: Anxiety, Constipation, Depression, Diabetes, GERD, Ovarian Cyst, Other Additional Past Medical Histor: gastroparesis, drug abuse (KAREN GAMBLE MD) Past Surgical History: Other Additional Past Surgical Histo: ovarian cysts removed (KAREN GAMBLE MD) Smoking: Cigarettes, Less than 1pk/day Alcohol Use: None Drug Use: Marijuana, Methamphetamine (KAREN GAMBLE MD) General Adult EDM: Chief Complaint: NAUSEA/VOMITING/DIARRHEA HPI: HPI: Patient is a 31-year-old female arriving via EMS for body aches, abdominal pain, nausea and vomiting. Patient is well-known to the emergency department for poorly controlled type 1 diabetes. Patient states symptoms started last night with the abdominal pain started first followed by the nausea and vomiting. Patient has any diarrhea or changes with urination. Denies any fever cough. Santos s not been vaccinated for COVID-19. Patient states that she is only give herself 10 units of subcu insulin today. (KAREN GAMBLE MD) Review of Systems: Review of Systems: All other systems within normal limits except for as noted in the HPI (KAREN GAMBLE MD) Current Medications: Current Meds: Current Medications Medications (Trade) Dose Ordered Sig/Chevy Start Time Stop Time Status Last Admin Dose Admin Lactated Ringer's 1,000 ml @ 1,000 mls/hr 1X ONCE 07/26/21 15:45 07/26/21 16:44 UNV (KAREN GAMBLE MD) Allergies: Allergies: Allergies Coded Allergies Type Severity Reaction Last Updated Verified acetaminophen Allergy Intermediate HIVES 07/22/21 Yes adhesive tape Allergy Intermediate 07/22/21 Yes (KAREN GAMBLE MD) Physical Exam: PE: Constitutional: Well developed, well nourished, no acute distress, non-toxic appearance. [] HENT: Normocephalic, atraumatic, bilateral external ears normal, nose normal. [] Eyes: PERRLA, conjunctiva normal, no discharge. [] Neck: No rigidity, supple, no stridor. [] Cardiovascular: Regular rate and rhythm, brisk cap refill [] Lungs & Thorax: Non labored symmetric respirations, no tachypnea or respiratory distress [] Abdomen: Soft, nondistended, generalized tenderness. Skin: Warm, dry, no erythema, no rash. [] Back: Unremarkable Extremities: No deformities, range of motion grossly intact, no lower extremity edema [] Neurologic: Alert and oriented X 3, no focal deficits noted. [] Psychologic: Affect normal, judgement normal, mood normal. [] (KAREN GAMBLE MD) EKG: EKG: Sinus rhythm, heart rate 98 bpm, no ST elevation or depression, no ectopy, borderline T wave peaking [] (KAREN GAMBLE MD) EKG: My interpretation EKG shows a sinus rhythm at 98 bpm. No acute morphology. Time of EKG is 1546 hrs. (YEELNA CAMILO MD) Radiology/Procedures: Radiology/Procedures: [] (KAREN GAMBLE MD) Heart Score: C/O Chest Pain: N/A Risk Factors: Risk Factors: DM, Current or recent (<one month) smoker, HTN, HLP, family history of CAD, obesity. Risk Scores: Score 0 - 3: 2.5% MACE over next 6 weeks - Discharge Home Score 4 - 6: 20.3% MACE over next 6 weeks - Admit for Clinical Observation Score 7 - 10: 72.7% MACE over next 6 weeks - Early Invasive Strategies (KAREN GAMBLE MD) Course & Med Decision Making: Course & Med Decision Making Patient refusing imaging. Due to access issues given IM Toradol and Haldol for gastroparesis. My EJ was obtained and fluid started with 10 units of insulin IV. Care transition to Dr. Camilo at shift change (KAREN GAMBLE MD) Course & Med Decision Making See chart for details. Case Britni is a well-known 30-year-old female diabetic who has multiple ED evaluations for diabetic keep ketoacidosis and noncompliance meds. She has history of diabetic gastroparesis with cyclic vomiting syndrome. Patient reports she has been taking her insulin but this is always a compliance question. Today she presented with sugars of 448. And sodium 130. Patient denies any illicit drug use. Patient has been on polysubstance abuse with preference towards methamphetamine use. However drug screen today did not show these drugs. Patient ABG would indicate she is not in DKA. Discussed presentation testing and treatment plan with . Advised admit patient to floor or telemetry and hydrate and use insulin sliding scale for managing her sugars. Impression: 1. Hyperglycemia 448 2. Hyponatremia 130 3. Cyclic vomiting 4. Dehydration 5. BNP 30 6. Rapid Covid today is negative (YELENA CAMILO MD) Dragon Disclaimer: Dragon Disclaimer: This electronic medical record was generated, in whole or in part, using a voice recognition dictation system. (KAREN GAMBLE MD) Departure Departure: Referrals: PCP,NO (PCP) Dragon Disclaimer This chart was dictated in whole or in part using Voice Recognition software in a busy, high-work load, and often noisy Emergency Department environment. It may contain unintended and wholly unrecognized errors or omissions. (YELENA CAMILO MD) Dragon Disclaimer This chart was dictated in whole or in part using Voice Recognition software in a busy, high-work load, and often noisy Emergency Department environment. It may contain unintended and wholly unrecognized errors or omissions. (YELENA CAMILO MD) KAREN GAMBLE MD Jul 26, 2021 15:49 YELENA CAMILO MD Jul 26, 2021 18:22
--- NOTE | 2021-07-26 16:05 | EKG ---
[address] [address] Test Date: 2021-07-26 Test Time: 15:46:20 Pat Name: CHALO RAYMUNDO Department: Room: Gender: F Residential Program Coordinator: CARLOS : 1990 Requested By: KAREN GAMBLE Order Number: [id number] Reading MD: Alex Espinoza MD Measurements Intervals Golva Rate: 98 P: 61 PA: 132 QRS: 73 QRSD: 78 T: 52 QT: 306 QTc: 392 Interpretive Statements SINUS RHYTHM Electronically Signed On 07-29-2021 9:31:14 CDT by Alex Espinoza MD
[2021-07-26] MEDS ORDERED: KETOROLAC 15 MG/ML VIAL. IVP ONE (16:15)
[2021-07-26] MEDS ORDERED: HALOPERIDOL LACT 5 MG/ML VIAL. IVP ONE (16:15)
[2021-07-26] MEDS ORDERED: KETOROLAC 30 MG/ML VIAL. ONE (16:23)
[2021-07-26] MEDS ORDERED: HALOPERIDOL LACT 5 MG/ML VIAL. IM ONE (16:30)
[2021-07-26] MEDS ORDERED: KETOROLAC 30 MG/ML VIAL. IM ONE (16:30)
[2021-07-26 16:45] LABS: BASO # 0.1 x10^3/uL (0.0-0.2); BASO % 1 % (0-3); EOS # 0.1 x10^3/uL (0.0-0.7); EOS % 2 % (0-3); HEMATOCRIT 40.7 % (36.0-47.0); HEMOGLOBIN 13.5 g/dL (12.0-15.5); LYMPH # 1.7 x10^3/uL (1.0-4.8); LYMPH % 23 % (24-48); MEAN CORPUSCULAR HEMOGLOBIN 30 pg (25-35); MEAN CORPUSCULAR HGB CONC 33 g/dL (31-37); MEAN CORPUSCULAR VOLUME 91 fL (79-100); MONO # 0.5 x10^3/uL (0.0-1.1); MONO % 7 % (0-9); NEUT % 67 % (31-73); PLATELET COUNT 292 x10^3/uL (140-400); RED BLOOD COUNT 4.47 x10^6/uL (3.50-5.40); RED CELL DISTRIBUTION WIDTH 13.5 % (11.5-14.5); WHITE BLOOD COUNT 7.4 x10^3/uL (4.0-11.0)
[2021-07-26 17:33] LABS: BILIRUBIN,URINE NEG (NEG); CLARITY,URINE HAZY; COLOR,URINE YELLOW; GLUCOSE,URINE >=1000 mg/dL (NEG)
[2021-07-26 17:34] LABS: AMORPHOUS SEDIMENT,UR PRESENT /HPF; BACTERIA,URINE 0 /HPF (0-FEW); NITRITE,URINE NEG (NEG); SQUAMOUS EPITHELIAL CELL,UR MOD /LPF; UROBILINOGEN,URINE 0.2 mg/dL (0.2 mg/dL)
[2021-07-26 17:34] LABS: CALCIUM 8.5 mg/dL (8.5-10.1); CREATININE 0.6 mg/dL (0.6-1.0); GFR 117.4; POTASSIUM 4.6 mmol/L (3.5-5.1)
[2021-07-26 17:36] LABS: ALBUMIN 3.1 g/dL (3.4-5.0); ALBUMIN/GLOBULIN RATIO 1.1 (1.0-1.7); PHOSPHORUS 2.5 mg/dL (2.6-4.7); TOTAL BILIRUBIN 0.4 mg/dL (0.2-1.0); TOTAL PROTEIN 5.8 g/dL (6.4-8.2)
[2021-07-26 17:45] LABS: BARBITURATES NEG (NEG); BENZODIAZEPINES NEG (NEG); CANNABINOIDS NEG (NEG); COCAINE NEG (NEG); METHADONE NEG (NEG); OPIATES NEG (NEG); PHENCYCLIDINE NEG (NEG)
[2021-07-26] MEDS ORDERED: INSULIN REGULAR 100 UNIT/ML 3ML VIAL. IV ONE (17:45)
[2021-07-26 17:46] LABS: AMPHETAMINE/METHAMPHETAMINE NEG (NEG)
[2021-07-26] MEDS ORDERED: ONDANSETRON PF 4 MG/2 ML VIAL. IVP PRN (18:15)
[2021-07-26] MEDS ORDERED: PROCHLORPERAZINE 10 MG/2 ML VIAL. IM PRN (18:15)
[2021-07-26] MEDS ORDERED: diphenhydrAMINE 50 MG/ML VIAL IM PRN (18:15)
[2021-07-26 19:35] VITALS: BP 155/107
[2021-07-26] MEDS ORDERED: IPRATRPIUM/ALBUTEROL 0.5/2.5MG 3 ML NEBU. NEB SCH (20:00)
[2021-07-26] MEDS: IV NORMAL SALINE 1,000ML 1,000 ML IV SCH (20:29)
[2021-07-26] MEDS: oxyCODONE/APAP 7.5/325 1 TAB TABLET PO PRN (20:30)
--- NOTE | 2021-07-26 21:06 | NUR ---
PT ADMITTED TO [facility] VIA EMS ACCOMPANIED BY ER STAFF. PT AMBULATED FROM GURNEY TO BED INDEPENDENTLY. PT IS AOX4. PT COMPLAINS OF GENERALIZED PAIN RATING 10/10 ON NUMERIC SCALE. MD CALLED. ORDERS RECEIVED. PRN PERCOCET GIVEN INDICATED. POC DISCUSSED W/ VERBALIZED UNDERSTANDING. PT IS RESTING COMFORTABLY W/ CALL LIGHT IN REACH.
[2021-07-26 23:01] VITALS: BP 110/69
[2021-07-27] MEDS: oxyCODONE/APAP 7.5/325 1 TAB TABLET PO PRN ×2 (05:33→15:49)
[2021-07-27 05:39] VITALS: BP 125/83
[2021-07-27 06:17] LABS: BASO # 0.1 x10^3/uL (0.0-0.2); BASO % 1 % (0-3); EOS # 0.2 x10^3/uL (0.0-0.7); EOS % 4 % (0-3); HEMATOCRIT 33.7 % (36.0-47.0); HEMOGLOBIN 11.4 g/dL (12.0-15.5); LYMPH # 3.4 x10^3/uL (1.0-4.8); LYMPH % 51 % (24-48); MEAN CORPUSCULAR HEMOGLOBIN 30 pg (25-35); MEAN CORPUSCULAR HGB CONC 34 g/dL (31-37); MEAN CORPUSCULAR VOLUME 89 fL (79-100); MONO # 0.5 x10^3/uL (0.0-1.1); MONO % 7 % (0-9); NEUT # 2.5 x10^3uL (1.8-7.7); NEUT % 37 % (31-73); PLATELET COUNT 264 x10^3/uL (140-400); RED BLOOD COUNT 3.77 x10^6/uL (3.50-5.40); RED CELL DISTRIBUTION WIDTH 13.2 % (11.5-14.5); WHITE BLOOD COUNT 6.6 x10^3/uL (4.0-11.0)
[2021-07-27 06:35] LABS: CALCIUM 8.1 mg/dL (8.5-10.1); CREATININE 0.7 mg/dL (0.6-1.0); GFR 98.3; POTASSIUM 4.1 mmol/L (3.5-5.1)
--- NOTE | 2021-07-27 07:55 | NUR ---
NURSING NOTE BLOOD SUGAR BLOOD SUGAR 259, SPOKE WITH DR OREILLY, ORDER FOR HIGH DOSE SLIDING SCALE NUMBER 3 PLUS 12 UNITS SQ 1X ORDER. ZABRINA BURROWS.
[2021-07-27] MEDS ORDERED: INSULIN LISPRO 300 UNITS/3 ML VIAL. SQ ONE (08:00)
[2021-07-27] MEDS ORDERED: INSULIN LISPRO 300 UNITS/3 ML VIAL. SQ SCH (08:00)
[2021-07-27] MEDS ORDERED: DEXTROSE 50% 25 GM / 50ML DISP.SYRIN. IV PRN (08:00)
[2021-07-27] MEDS: MAGNESIUM HYDROXIDE 2,400 MG/30 ML ORAL.SUSP. PO SCH ×2 (08:29→08:33)
[2021-07-27] MEDS: INSULIN LISPRO 300 UNITS/3 ML VIAL. SQ SCH ×3 (08:30→16:58)
[2021-07-27] MEDS: IV NORMAL SALINE 1,000ML 1,000 ML IV SCH ×2 (08:35→13:23)
--- NOTE | 2021-07-27 08:57 | HP ---
ADMIT DATE: 07/26/2021 ATTENDING PHYSICIAN: Dr. Gonzalez. CHIEF COMPLAINT: Nonspecific pain and weakness. HISTORY OF PRESENT ILLNESS: The patient is a 31-year-old female, type 1 diabetic, well known to us from multiple admissions in the past. She is admitted to the ED with poorly controlled diabetes. She has had abdominal pain, myalgias. Unfortunately, she continues to be noncompliant, has substance abuse as well as not taking her insulin. Her last Admission blood sugar was over 400. She is admitted then with abdominal pain, dehydration and poorly controlled diabetes. She is not in DKA at this time. PAST MEDICAL HISTORY: Significant for depression, anxiety, chronic constipation, gastroesophageal reflux disease, ovarian cyst, gastroparesis and substance abuse. She denies any alcohol use. She smokes a pack of cigarettes a day. She also uses recreational marijuana and methamphetamine. ALLERGIES: SHE HAS ALLERGIES OR INTOLERANCES TO ADHESIVE TAPE AND TYLENOL. EXACT REACTION IS UNCLEAR. She is scheduled to take 4 shots of insulin as before. Whether or not she is compliant remains to be seen. She states she only gave herself 10 units of subcutaneous insulin on the day of admission. FAMILY HISTORY: Noncontributory. REVIEW OF SYSTEMS: Significant for poorly controlled diabetes. No recent COVID exposure. All other systems reviewed and turned to be negative. PHYSICAL EXAMINATION: VITAL SIGNS: When I saw her the next day her vital signs showed blood pressure 110/69. She was afebrile, oxygen saturation 96% on room air. HEENT: Head is without trauma. Pupils are reactive. Sclerae nonicteric. Oropharynx is clear. NECK: Supple, no bruits. LUNGS: Good breath sounds. CARDIOVASCULAR: Regular heart tones. ABDOMEN: Soft. Minimal guarding. No rebound tenderness. EXTREMITIES: Show no cyanosis or edema. NEUROLOGIC: Focally intact. SKIN: Warm and dry. PERTINENT LABORATORY STUDIES: Creatinine on admission was 0.6. Admission blood sugar 448 mg/dL. Sodium 130. Transaminases unremarkable. CBC showed hemoglobin of 13.5 grams, white count 7400. Serology was negative for coronavirus. Urine drug screen was unremarkable. Urinalysis was clear, but she had a large amount of glucose in the urine. ASSESSMENT: 1. A 31-year-old female with type 1 diabetes and poorly controlled diabetes mellitus. 2. Noncompliance of meds. 3. Polysubstance abuse. 4. Gastroparesis. 5. Dehydration. PLAN: 1. Admit to the inpatient unit. 2. IV hydration. 3. Scheduled insulin. 4. Pain and nausea control. PARKER DR: Cristela TID: [id number]
[2021-07-27 10:24] VITALS: BP 98/63
[2021-07-27 15:25] VITALS: BP 114/77
--- NOTE | 2021-07-27 17:38 | NUR ---
NURSING NOTE PT WAS IN BED THIS AM UPON ASSESSMENT AND MEDICATION ADMINISTRATION. PT REFUSED LAXATIVE. PT A&O. PT C/O GENERAL PAIN, HAS PRN PAIN MEDICATION. PT CALM AND COOPERATIVE. RESTING IN THE BED. PLAN TO CONT IV FLUIDS AND DC TOMORROW PER DR HO. BURROWS, RN.
--- NOTE | 2021-07-27 18:16 | NUR ---
NURSING NOTE PT HAD FAMILY EMERGENCY, DISCHARGED HOME PER DR OREILLY. PT GIVEN WRITTEN AND VERBAL DISCHARGE INSTRUCTIONS. INSTRUCTED TO FOLLOW UP WITH PCP AT [facility]. ZABRINA BURROWS.
--- NOTE | 2021-07-27 19:34 | DS ---
DATE OF DISCHARGE: 07/27/2021 ATTENDING PHYSICIAN: Dr. Gonzalez. FINAL DISCHARGE DIAGNOSES: 1. Poorly controlled type 1 diabetes mellitus. 2. Noncompliance of meds. 3. Polysubstance abuse. 4. Chronic abdominal pain. 5. Underlying depression with anxiety. HISTORY AND PHYSICAL: The patient is now 31 years old. She has multiple previous admissions with abdominal pain, dehydration, DKA. At this time, her sugars were high, but she was not acidotic. She was admitted then with mild dehydration and treatment of symptomatic pain. She has a lot of psychosocial issues. She also has polysubstance abuse. PHYSICAL EXAMINATION: Please see the dictated note. PERTINENT LABORATORY AND X-RAY STUDIES: Subsequent sugars were brought down nicely and she was better controlled. COURSE IN THE HOSPITAL: She was admitted for glucose control, IV hydration, pain and nausea control. By the second hospital day, on the morning of July 27, I saw her when I made rounds at about 9:00. She was still symptomatic. I suggest she stay another day; however, later that day, at about 1800 hours, I got a call from the nursing staff, stating that she had personal crisis at home. One of her relatives was just found . She wanted to leave. I felt this is reasonable. She was discharged then with instructions to take her insulin 3 shots of regular prior to each meal, then a shot of Lantus at night and to avoid any further tobacco and recreational drugs. Whether or not she will do so remains to be seen. In any event, she was discharged from our hospital in stable condition with explicit drug and followup care. MARCIANO DR: Cristela TID: [id number]
[2021-08-02] MEDS ORDERED: FLUC100T7 PO (04:55)
[2021-08-02] MEDS ORDERED: CEPH500C PO (04:55)
[2021-08-02] MEDS ORDERED: PROC10TA57 PO (04:56)
== END 2021-07-27 18:17 | disposition home or self-care (01) | DRG 74 ==
LOC: ER 15:38 → 1 SOUTH 19:13
PROVIDERS: ADMIT Hospitalist; ATTEND Hospitalist
DX: E10.43 Type 1 diabetes mellitus with diabetic autonomic (poly)neuropathy (principal); E87.1 Hypo-osmolality and hyponatremia; E86.0 Dehydration; K31.84 Gastroparesis; F41.8 Other specified anxiety disorders; G89.29 Other chronic pain; Z79.4 Long term (current) use of insulin; Z87.891 Personal history of nicotine dependence; Z91.14 Patient's other noncompliance with medication regimen; Z91.19 Patient's noncompliance with other medical treatment and regimen; F32.9 Major depressive disorder, single episode, unspecified; F41.9 Anxiety disorder, unspecified; K21.9 Gastro-esophageal reflux disease without esophagitis; Z20.822 Contact with and (suspected) exposure to COVID-19; Z88.8 Allergy status to other drugs, medicaments and biological substances; K59.09 Other constipation; F12.90 Cannabis use, unspecified, uncomplicated
CPT/HCPCS: 36415; 80048; 80053; 80307; 81001; 81025; 82803; 82947; 83605; 83735; 84100; 84484; 85025; 87077; 87086; 87186; 87426; 93005; 96361; 96372; 96374; G0480; J1200; J1630; J1815; J1885; J7120; U0003; 99285-25; J7030

== ENCOUNTER → 2021-08-02 | Emergency (ER) | payer MEDICAID ==
[~2021-08-02] VITALS: Ht 172.7 cm; Wt 60.0 kg
[~2021-08-02] MED LIST changes: +HYOS0.1265 SL; +IV NORMAL SALINE 50ML 50 ML ONE; +KETOROLAC 30 MG/ML VIAL. IVP ONE; +METO5TAB55 PO; +PROC10TA57 PO; +PROCHLORPERAZINE 10 MG/2 ML VIAL. IM ONE; +PROM25SU33 RC; +cefTRIAXone IM 1 GM VIAL IM ONE; +cefTRIAXone SODIUM 1 GM VIAL ONE; +diphenhydrAMINE 50 MG/ML VIAL IM ONE
--- NOTE | 2021-08-02 01:10 | PHYS DOC ---
Past History Past Medical History: Anxiety, Constipation, Depression, Diabetes, GERD, Ovarian Cyst, Other Additional Past Medical Histor: gastroparesis, drug abuse Past Surgical History: Other Additional Past Surgical Histo: ovarian cysts removed Smoking: Cigarettes, Less than 1pk/day Alcohol Use: None Drug Use: Marijuana, Methamphetamine General Adult EDM: Chief Complaint: NAUSEA/VOMITING/DIARRHEA HPI: HPI: ".. I am vomiting again.. constant.. all week now.. cramping.. it my gastroparesis... and DM.. my sugars are not that bad today..." Patient is a 31 year old female who presents with above hx and complaints abdomen pain, cramping and nausea . Pt. is well know to ED staff for multiple evaluation for DKA, Gastroparesis and dehydration. Patient is known for nonco mpliance with meds and polysubstance abuse. Had frequent evaluation for her urine was found to have methamphetamine. Patient's history of diabetic gastroparesis and cyclic vomiting is a frequent presentation to the ED. Patient poorly has been taking her insulin but compliance is always a question with this patient. Denied her glucose levels are normal at 76. Mild elevation Bun 25. Patient denies any trauma. Patient denies any recent travel. Patient denies any fever or chills. Patient denies any intake of bad food. Review of Systems: Review of Systems: Constitutional: Denies fever or chills Eyes: Denies change in visual acuity HENT: Denies nasal congestion or sore throat Respiratory: Denies cough or shortness of breath Cardiovascular: Denies chest pain or edema GI: Complains of abdominal pain, nausea, cyclic vomiting. Denies, bloody stools or diarrhea. Symmetric constipation. : Denies dysuria Musculoskeletal: Denies back pain or joint pain Integument: Denies rash Neurologic: Denies headache, focal weakness or sensory changes Endocrine: Denies polyuria or polydipsia Lymphatic: Denies swollen glands Psychiatric: Denies depression or anxiety Family History: Family History: Noncontributory to presentation Current Medications: Current Meds: Current Medications Medications (Trade) Dose Ordered Sig/Chevy Start Time Stop Time Status Last Admin Dose Admin Diphenhydramine HCl (Benadryl) 50 mg 1X ONCE 08/02/21 01:00 08/02/21 01:01 DC 08/02/21 00:51 50 MG Prochlorperazine Edisylate (Compazine) 10 mg 1X ONCE 08/02/21 01:00 08/02/21 01:01 DC 08/02/21 00:50 10 MG Allergies: Allergies: Allergies Coded Allergies Type Severity Reaction Last Updated Verified acetaminophen Allergy Intermediate HIVES 07/22/21 Yes adhesive tape Allergy Intermediate 07/22/21 Yes Physical Exam: PE: Constitutional: Reports acute distress, non-toxic appearance. [] HENT: Normocephalic, atraumatic, bilateral external ears normal, oropharynx dry, no oral exudates, nose normal. [] Eyes: PERRLA, EOMI, conjunctiva normal, no discharge. [] Neck: Normal range of motion, no tenderness, supple, no stridor. [] Cardiovascular: Tachycardia heart rate regular rhythm, no murmur [] Lungs & Thorax: Bilateral breath sounds at apex on auscultation [] Abdomen: Bowel sounds normal, soft, paralyzed tenderness, no masses, no pulsatile masses. Distention. Skin: Warm, dry, no erythema, no rash. [Tattoos Back: No tenderness, no CVA tenderness. [] Extremities: No tenderness, no cyanosis, no clubbing, ROM intact, no edema. [] No cording appreciated Neurologic: Alert and oriented X 3, normal motor function, normal sensory function, no focal deficits noted. [] DTRs +2 patella and brachial. Psychologic: Affect anxious, judgement normal, mood normal. [] Current Patient Data: Labs: Laboratory Tests Test 08/02/21 00:11 Glucose (Fingerstick) 88 mg/dL (70-99) EKG: EKG: [] Radiology/Procedures: Radiology/Procedures: [] Heart Score: C/O Chest Pain: N/A HEART Score for Chest Pain: HEART Score for Chest Pain Response (Comments) Value History Slighlty/Non-Suspicious 0 ECG Normal 0 Age < 45 0 Risk Factors 1 or 2 Risk Factors 1 Total 1 Risk Factors: Risk Factors: DM, Current or recent (<one month) smoker, HTN, HLP, family history of CAD, obesity. Risk Scores: Score 0 - 3: 2.5% MACE over next 6 weeks - Discharge Home Score 4 - 6: 20.3% MACE over next 6 weeks - Admit for Clinical Observation Score 7 - 10: 72.7% MACE over next 6 weeks - Early Invasive Strategies Course & Med Decision Making: Course & Med Decision Making Pertinent Labs and Imaging studies reviewed. (See chart for details) Patient is a clear fluid diet the next 48 hours. No solids. No milk products. Clear fluids only allow bowel rest. Follow-up primary care. Continue diabetic meds. Directed. Push fluids. Patient take Keflex 500 mg 3 times a day. Patient follow-up cultures. Impressions: 1. Cyclic vomiting 2. History diabetes 3. Mild dehydration 4. Drug Screen + Methamphetamine 5. UTI [] Dragon Disclaimer: Dragevelio Disclaimer: This electronic medical record was generated, in whole or in part, using a voice recognition dictation system. Departure Departure: Referrals: PCP,BAY (PCP) Scripts Prochlorperazine Maleate (Compazine) 10 Mg Tablet 10 MG PO QIDPRN PRN for nv, #10 TAB Prov: YELENA HENRY MD 08/02/21 Fluconazole (DIFLUCAN) 100 Mg Tablet 100 MG PO DAILY for post antibiotic for 3 Days, #3 TAB Prov: YELENA HENRY MD 08/02/21 Cephalexin (KEFLEX) 500 Mg Capsule 500 MG PO TID for uti for 7 Days, #21 CAP Prov: YELENA HENRY MD 08/02/21 Dragon Disclaimer This chart was dictated in whole or in part using Voice Recognition software in a busy, high-work load, and often noisy Emergency Department environment. It may contain unintended and wholly unrecognized errors or omissions. YELENA HENRY MD Aug 02, 2021 01:10
[2021-08-02 03:00] LABS: BASO # 0.1 x10^3/uL (0.0-0.2); BASO % 1 % (0-3); CALCIUM 9.2 mg/dL (8.5-10.1); CREATININE 0.8 mg/dL (0.6-1.0); EOS # 0.1 x10^3/uL (0.0-0.7); EOS % 1 % (0-3); GFR 84.2; HEMATOCRIT 42.4 % (36.0-47.0); HEMOGLOBIN 14.4 g/dL (12.0-15.5); LYMPH # 3.2 x10^3/uL (1.0-4.8); LYMPH % 38 % (24-48); MEAN CORPUSCULAR HEMOGLOBIN 31 pg (25-35); MEAN CORPUSCULAR HGB CONC 34 g/dL (31-37); MEAN CORPUSCULAR VOLUME 90 fL (79-100); MONO # 0.7 x10^3/uL (0.0-1.1); MONO % 9 % (0-9); NEUT # 4.4 x10^3uL (1.8-7.7); NEUT % 52 % (31-73); PLATELET COUNT 377 x10^3/uL (140-400); POTASSIUM 3.6 mmol/L (3.5-5.1); RED BLOOD COUNT 4.72 x10^6/uL (3.50-5.40); RED CELL DISTRIBUTION WIDTH 13.2 % (11.5-14.5); WHITE BLOOD COUNT 8.5 x10^3/uL (4.0-11.0)
[2021-08-02 04:35] LABS: BARBITURATES NEG (NEG); BENZODIAZEPINES NEG (NEG); CANNABINOIDS NEG (NEG); COCAINE NEG (NEG); METHADONE NEG (NEG); OPIATES NEG (NEG); PHENCYCLIDINE NEG (NEG)
[2021-08-02 04:37] LABS: BILIRUBIN,URINE NEG (NEG); CLARITY,URINE HAZY; COLOR,URINE YELLOW; GLUCOSE,URINE 500 mg/dL (NEG); NITRITE,URINE NEG (NEG); WBC,URINE >40 /HPF (0-4)
[2021-08-02 04:38] LABS: BACTERIA,URINE MANY /HPF (0-FEW); SQUAMOUS EPITHELIAL CELL,UR MOD /LPF
[2021-08-02 04:39] LABS: AMPHETAMINE/METHAMPHETAMINE POS (NEG)
[2021-08-02 06:10] VITALS: BP 133/86
== END | disposition home or self-care (01) ==
LOC: ER 00:05
DX: E86.0 Dehydration (principal); N39.0 Urinary tract infection, site not specified; R11.15 Cyclical vomiting syndrome unrelated to migraine; E11.9 Type 2 diabetes mellitus without complications; F41.9 Anxiety disorder, unspecified; F32.9 Major depressive disorder, single episode, unspecified; K21.9 Gastro-esophageal reflux disease without esophagitis; F17.210 Nicotine dependence, cigarettes, uncomplicated; F12.10 Cannabis abuse, uncomplicated; F15.10 Other stimulant abuse, uncomplicated; Z88.8 Allergy status to other drugs, medicaments and biological substances
CPT/HCPCS: 36415; 80048; 80307; 81001; 82947; 85025; 87086; 96365; 96372; 96375; 99284; J0696; J0780; J1200; J1885

== ENCOUNTER 2021-08-06 18:55 | Emergency (ER) | payer MEDICAID ==
[~2021-08-06] VITALS: Ht 172.7 cm; Wt 56.1 kg
[~2021-08-06 18:55] MED LIST changes: -HYOS0.1265 SL; -IV NORMAL SALINE 50ML 50 ML ONE; -KETOROLAC 30 MG/ML VIAL. IVP ONE; -METO5TAB55 PO; -PROCHLORPERAZINE 10 MG/2 ML VIAL. IM ONE; -PROM25SU33 RC; -cefTRIAXone IM 1 GM VIAL IM ONE; -cefTRIAXone SODIUM 1 GM VIAL ONE; -diphenhydrAMINE 50 MG/ML VIAL IM ONE
--- NOTE | 2021-08-06 19:43 | PHYS DOC ---
Past History Past Medical History: Anxiety, Constipation, Depression, Diabetes, GERD, Ovarian Cyst, Other Additional Past Medical Histor: gastroparesis, drug abuse Past Surgical History: Other Additional Past Surgical Histo: ovarian cysts removed Smoking: Cigarettes, Less than 1pk/day Alcohol Use: None Drug Use: Marijuana, Methamphetamine Adult General Chief Complaint Chief Complaint: ABDOMINAL PAIN HPI HPI Patient is a 31-year-old female with a past medical history of chronic nausea and vomiting with abdominal cramping who presents with nausea, vomiting, diarrhea and abdominal cramping for day. States that she has several episodes of of this month and nobody is been able to find out anything despite multiple exams including imaging colonoscopy. Denies any recent trauma, travels, illnesses, fevers, chest pain, dysuria, hematuria. States she is had some watery diarrhea over the day with abdominal cramping generalized, 6 out of 10 with no radiation. Review of Systems Review of Systems Review of systems otherwise unremarkable except noted in HPI Allergies Allergies Allergies Coded Allergies Type Severity Reaction Last Updated Verified acetaminophen Allergy Intermediate HIVES 07/22/21 Yes adhesive tape Allergy Intermediate 07/22/21 Yes Physical Exam Physical Exam Constitutional: Well developed, well nourished, no acute distress, non-toxic appearance. [] HENT: Normocephalic, atraumatic, bilateral external ears normal, oropharynx moist, no oral exudates, nose normal. [] Eyes: PERRLA, EOMI, conjunctiva normal, no discharge. [] Neck: Normal range of motion, no tenderness, supple, no stridor. [] Cardiovascular:Heart rate regular rhythm, no murmur [] Lungs & Thorax: Bilateral breath sounds clear to auscultation [] Abdomen: Bowel sounds normal, soft, no tenderness, no masses, no pulsatile masses. [] Skin: Warm, dry, no erythema, no rash. [] Back: No tenderness, no CVA tenderness. [] Extremities: No tenderness, no cyanosis, no clubbing, ROM intact, no edema. [] Neurologic: Alert and oriented X 3, normal motor function, normal sensory function, no focal deficits noted. [] Psychologic: Affect normal, judgement normal, mood normal. [] EKG EKG [] Radiology/Procedures Radiology/Procedures [] Heart Score C/O Chest Pain: No Risk Factors: Risk Factors: DM, Current or recent (<one month) smoker, HTN, HLP, family history of CAD, obesity. Risk Scores: Risk Factors: DM, Current or recent (<one month) smoker, HTN, HLP, family history of CAD, obesity. Course & Med Decision Making Course & Med Decision Making Patient is 31-year-old female who presents with abdominal cramping, diarrhea, and nausea Signs initially notable for tachycardia. Placed on the monitor with IV access established and IV fluid begun. Given pain medicine and nausea medicine. Laboratory analysis not concerning. On reassessment after multiple bags of fluid and medications patient stated she was feeling much better and was ready to be discharged home. Discussed all findings with patient and advised light clear diet and plenty of hydration over the next few days and use her Zofran that she has at home as needed. Advised to stay away from any alcohol or other substances which could exacerbate her illness. Advised to follow-up with primary care physician on Monday. Gave return precautions to the ED. Patient grateful, verbalized understanding and agreed with plan of discharge. [] Dragon Disclaimer Dragon Disclaimer This electronic medical record was generated, in whole or in part, using a voice recognition dictation system. Departure Departure: Impression: Primary Impression: Nausea and vomiting Additional Impression: Abdominal cramping Disposition: 01 HOME / SELF CARE / HOMELESS Condition: GOOD Referrals: PCP,BAY (PCP) DINO ROMAN Patient Instructions: Abdominal Pain, Chronic Diarrhea, Nausea and Vomiting Additional Instructions: Thank you for coming into the emergency department tonight and allowing us to take care of you. Please read the attached information very carefully to go back over things we discussed. Please be sure to eat a light clear diet as we discussed over the next couple of days and stay well-hydrated with lots of fluids such as Gatorade, Pedialyte and water. Please be sure to at least eat some white things such as soup. Please follow-up with your primary care ph ysician on Monday to update on ED visit. Please come back to the emergency department with new or concerning symptoms as discussed. Problem Qualifiers TANIKA CAMARENA MD Aug 06, 2021 19:43
[2021-08-06] MEDS ORDERED: ONDANSETRON ODT 4 MG TAB.RAPDIS PO ONE (19:45)
[2021-08-06] MEDS ORDERED: METOCLOPRAMIDE HCL 10 MG/2 ML VIAL. IVP ONE (19:45)
[2021-08-06] MEDS ORDERED: IV RINGERS SOLUTION,LACTATED 1,000 ML IV ONE ×2 (19:45→21:15)
[2021-08-06 20:41] LABS: BASO # 0.1 x10^3/uL (0.0-0.2); BASO % 1 % (0-3); EOS # 0.1 x10^3/uL (0.0-0.7); EOS % 1 % (0-3); HEMATOCRIT 42.3 % (36.0-47.0); HEMOGLOBIN 14.1 g/dL (12.0-15.5); LYMPH # 1.8 x10^3/uL (1.0-4.8); LYMPH % 21 % (24-48); MEAN CORPUSCULAR HEMOGLOBIN 30 pg (25-35); MEAN CORPUSCULAR HGB CONC 33 g/dL (31-37); MEAN CORPUSCULAR VOLUME 91 fL (79-100); MONO # 0.4 x10^3/uL (0.0-1.1); MONO % 5 % (0-9); NEUT # 6.2 x10^3uL (1.8-7.7); NEUT % 73 % (31-73); PLATELET COUNT 336 x10^3/uL (140-400); RED BLOOD COUNT 4.67 x10^6/uL (3.50-5.40); RED CELL DISTRIBUTION WIDTH 13.6 % (11.5-14.5); WHITE BLOOD COUNT 8.6 x10^3/uL (4.0-11.0)
[2021-08-06 20:50] LABS: CALCIUM 9.2 mg/dL (8.5-10.1); CREATININE 0.6 mg/dL (0.6-1.0); GFR 117.4; POTASSIUM 4.4 mmol/L (3.5-5.1)
[2021-08-06] MEDS ORDERED: KETOROLAC 30 MG/ML VIAL. ONE (20:58)
[2021-08-06] MEDS ORDERED: diphenhydrAMINE 50 MG/ML VIAL IVP ONE (21:15)
[2021-08-06] MEDS ORDERED: KETOROLAC 30 MG/ML VIAL. IVP ONE (21:15)
[2021-08-06 21:43] LABS: PREG TEST PT QUAL NEGATIVE (NEG)
[2021-08-06] MEDS ORDERED: LOPERAMIDE 2 MG CAPSULE PO ONE (23:00)
[2021-08-06 23:45] VITALS: BP 110/64
[2021-08-07 00:08] LABS: BILIRUBIN,URINE SMALL (NEG); CLARITY,URINE HAZY; COLOR,URINE YELLOW; GLUCOSE,URINE NEG (NEG)
[2021-08-07 00:09] LABS: BACTERIA,URINE MOD /HPF (0-FEW); NITRITE,URINE NEG (NEG); RBC,URINE 20-40 /HPF (0-2); SQUAMOUS EPITHELIAL CELL,UR MANY /LPF; UROBILINOGEN,URINE 0.2 mg/dL (0.2 mg/dL); WBC,URINE 20-40 /HPF (0-4)
== END 2021-08-06 23:54 | disposition home or self-care (01) ==
LOC: ER 18:55
DX: R11.2 Nausea with vomiting, unspecified (principal); E11.9 Type 2 diabetes mellitus without complications; K21.9 Gastro-esophageal reflux disease without esophagitis; F17.210 Nicotine dependence, cigarettes, uncomplicated; E11.43 Type 2 diabetes mellitus with diabetic autonomic (poly)neuropathy; K31.84 Gastroparesis; Z88.8 Allergy status to other drugs, medicaments and biological substances
CPT/HCPCS: 36415; 80048; 81001; 81025; 84703; 85025; 87077; 87086; 87186; 96374; 96375; 99285; J1200; J1885; J2765; J3010; J7120; Q0162

== ENCOUNTER 2021-08-08 11:23 | Emergency (ER) | payer MEDICAID ==
[~2021-08-08] VITALS: Ht 172.7 cm; Wt 56.1 kg
[2021-08-08] MEDS ORDERED: IV NORMAL SALINE 1,000ML 1,000 ML IV ONE (11:45)
--- NOTE | 2021-08-08 11:51 | PHYS DOC ---
Past History Past Medical History: Anxiety, Constipation, Depression, Diabetes, GERD, Ovarian Cyst, Other Additional Past Medical Histor: gastroparesis, drug abuse Past Surgical History: Other Additional Past Surgical Histo: ovarian cyst;eyex3;earx3;port;chest tubes; bx of rt ankle Smoking: Cigarettes, Less than 1pk/day Alcohol Use: None Drug Use: Marijuana, Methamphetamine Adult General Chief Complaint Chief Complaint: ABDOMINAL PAIN HPI HPI Patient is a 31-year-old female well-known to our facility presenting for nausea and vomit. This is an acute on chronic problem. This is her fifth visit this calendar month for same constellation of symptoms. She has history of uncontrolled type 1 diabetes, history of gastroparesis that is all exacerbated by ongoing drug abuse. Presents today for generalized abdominal pain and cramping with associated nausea and vomit. This started last night without any reported ingestion, trauma, exposure or other concerning toxin or stimulus. Reports this pain is different. She has been nauseous with several episodes of nonbloody nonbilious emesis. She states she feels dehydrated. Last fingerstick blood glucose was 213. Review of Systems Review of Systems Fourteen body systems of review of systems have been reviewed. See HPI for pertinent positives and negative responses, other bustos all other systems are negative, non-pertinent or non-contributory Current Medications Current Medications Current Medications Medications (Trade) Dose Ordered Sig/Chevy Start Time Stop Time Status Last Admin Dose Admin Sodium Chloride 1,000 ml @ 1,000 mls/hr 1X ONCE 08/08/21 11:45 08/08/21 12:44 UNV Allergies Allergies Allergies Coded Allergies Type Severity Reaction Last Updated Verified acetaminophen Allergy Intermediate HIVES 07/22/21 Yes adhesive tape Allergy Intermediate 07/22/21 Yes Physical Exam Physical Exam Constitutional: Thin malnourished appearing female that is age-appropriate, crying and ambulatory throughout ER on arrival HENT: Normocephalic, atraumatic, bilateral external ears normal, oropharynx dry, no oral exudates, nose normal. Eyes: PERRLA, EOMI, conjunctiva normal, no discharge. Neck: Normal range of motion, no tenderness, supple, no stridor. Cardiovascular: Heart rate regular, sinus rhythm, no murmurs rubs or gallops Lungs & Thorax: Bilateral breath sounds clear to auscultation Abdomen: Bowel sounds normal, soft, n generalized tenderness with voluntary guarding, no rebound, no masses, no pulsatile masses. Nonsurgical abdomen, no peritoneal signs Skin: Warm, dry, no erythema, no rash. Back: No tenderness, no CVA tenderness. Extremities: No tenderness, no cyanosis, no clubbing, ROM intact, no edema. Neurologic: Alert and oriented X 3, grossly normal motor & sensory function, no focal deficits noted. Psychologic: Tearful affect, anxious mood Current Patient Data Vital Signs Vital Signs Date Time Temp Pulse Resp B/P (MAP) Pulse Ox O2 Delivery O2 Flow Rate FiO2 08/08/21 11:26 103 20 149/93 (111) 98 Room Air Lab Results Laboratory Tests Test 08/08/21 11:47 08/08/21 12:01 08/08/21 13:45 Glucose (Fingerstick) 145 mg/dL White Blood Count 6.7 x10^3/uL Red Blood Count 4.17 x10^6/uL Hemoglobin 12.5 g/dL Hematocrit 37.8 % Mean Corpuscular Volume 91 fL Mean Corpuscular Hemoglobin 30 pg Mean Corpuscular Hemoglobin Concent 33 g/dL Red Cell Distribution Width 13.3 % Platelet Count 313 x10^3/uL Neutrophils (%) (Auto) 66 % Lymphocytes (%) (Auto) 26 % Monocytes (%) (Auto) 6 % Eosinophils (%) (Auto) 2 % Basophils (%) (Auto) 1 % Neutrophils # (Auto) 4.4 x10^3uL Lymphocytes # (Auto) 1.7 x10^3/uL Monocytes # (Auto) 0.4 x10^3/uL Eosinophils # (Auto) 0.1 x10^3/uL Basophils # (Auto) 0.0 x10^3/uL Sodium Level 136 mmol/L Potassium Level 4.0 mmol/L Chloride Level 100 mmol/L Carbon Dioxide Level 26 mmol/L Anion Gap 10 Blood Urea Nitrogen 23 mg/dL Creatinine 0.7 mg/dL Estimated GFR (Cockcroft-Gault) 98.3 BUN/Creatinine Ratio 33 Glucose Level 161 mg/dL Calcium Level 9.0 mg/dL Total Bilirubin 0.5 mg/dL Aspartate Amino Transf (AST/SGOT) 14 U/L Alanine Aminotransferase (ALT/SGPT) 22 U/L Alkaline Phosphatase 71 U/L Total Protein 6.9 g/dL Albumin 3.7 g/dL Albumin/Globulin Ratio 1.2 Acetone Level Neg Urine Collection Type Unknown Urine Color Yellow Urine Clarity Hazy Urine pH 8.5 Urine Specific [place] 1.020 Urine Protein 30 mg/dl Urine Glucose (UA) Neg mg/dL Urine Ketones (Stick) Trace mg/dL Urine Blood Small Urine Nitrite Neg Urine Bilirubin Neg Urine Urobilinogen Dipstick 0.2 mg/dL Urine Leukocyte Esterase Neg Urine RBC 3-5 /HPF Urine WBC 1-4 /HPF Urine Squamous Epithelial Cells Few /LPF Urine Amorphous Sediment Present /HPF Urine Bacteria Few /HPF Urine Opiates Screen Neg Urine Methadone Screen Neg Urine Barbiturates Neg Urine Phencyclidine Screen Neg Urine Amphetamine/Methamphetamine Neg Urine Benzodiazepines Screen Neg Urine Cocaine Screen Neg Urine Cannabinoids Screen Neg Urine Ethyl Alcohol Neg Current Medications Medications (Trade) Dose Ordered Sig/Chevy Route PRN Reason Start Time Stop Time Status Last Admin Dose Admin Sodium Chloride 1,000 ml @ 1,000 mls/hr 1X ONCE IV 08/08/21 11:45 08/08/21 12:44 DC 08/08/21 12:42 Ondansetron HCl (Zofran) 4 mg 1X ONCE IVP 08/08/21 12:30 08/08/21 12:31 DC 08/08/21 12:42 Ondansetron HCl (Zofran) 4 mg 1X ONCE IVP 08/08/21 14:15 08/08/21 14:16 DC 08/08/21 14:39 Ibuprofen (Motrin) 400 mg 1X ONCE PO 08/08/21 15:30 08/08/21 15:39 DC EKG EKG EKG ordered and interpreted by myself at 1221 hrs. as sinus tachycardia at 113 bpm, unremarkable intervals, no axis deviation, no acute ischemic findings, no STEMI Radiology/Procedures Radiology/Procedures [] Heart Score C/O Chest Pain: No HEART Score for Chest Pain: HEART Score for Chest Pain Response (Comments) Value History Slighlty/Non-Suspicious 0 ECG Normal 0 Age < 45 0 Risk Factors No Risk Factors 0 Troponin < Normal Limit 0 Total 0 Risk Factors: Risk Factors: DM, Current or recent (<one month) smoker, HTN, HLP, family history of CAD, obesity. Risk Scores: Risk Factors: DM, Current or recent (<one month) smoker, HTN, HLP, family history of CAD, obesity. Course & Med Decision Making Course & Med Decision Making ABCs unremarkable. HPI, physical exam and comprehensive ER work-up nonconcerning for any emergent or surgical issues Patient's nausea improved with IV Zofran. Patient reassessed numerous times and in no acute distress. During my final arrival, patient was peacefully asleep. She woke up and was immediately mad stating that she was in pain and requesting IV narcotic medication. I disclose there is no indication given benign abdominal exam, grossly unremarkable labs, in fact that she has been sleeping undisturbed in no acute distress. She is demonstrating pain seeking behavior. As such, I disclosed there is no further indication for further diagnostic work- up or intervention in ER setting and discussed need for close outpatient follow- up given no indication for hospitalization. Strict return precautions discussed, all questions and concerns addressed prior to ER departure Dragon Disclaimer Dragon Disclaimer This electronic medical record was generated, in whole or in part, using a voice recognition dictation system. Departure Departure: Impression: Primary Impression: Chronic abdominal pain Additional Impressions: Nausea & vomiting Type 1 diabetes mellitus Disposition: HOME / SELF CARE / HOMELESS Condition: STABLE Referrals: PCP,NO (PCP) Additional Instructions: You have been evaluated in the Emergency Department today for abdominal pain. Your evaluation was not suggestive of any emergent condition requiring medical intervention at this time. However, some abdominal problems make take more time to appear. Therefore, it is important for you to watch for any new symptoms or worsening of your current condition. Please continue to ensure tight glycemic control and record your blood sugars down in a log to review with your primary care physician for adjustments as needed in outpatient setting Return to the Emergency Department if you experience worsening pain, persistent fevers greater than 100.4, recurrent vomiting, blood in vomit, blood in stool, dark tarry stool, chest pain, difficulty breathing, or any other concerning symptoms. Scripts Metoclopramide Hcl (REGLAN) 5 Mg Tablet 1 TAB PO ONCE for nausea, #14 TAB 0 Refills 1 hour prior to procedure Prov: BRENDA BAKER DO 08/08/21 Problem Qualifiers BRENDA BAKER DO Aug 08, 2021 11:51
[2021-08-08 12:19] LABS: BASO % 1 % (0-3); EOS # 0.1 x10^3/uL (0.0-0.7); EOS % 2 % (0-3); HEMATOCRIT 37.8 % (36.0-47.0); HEMOGLOBIN 12.5 g/dL (12.0-15.5); LYMPH # 1.7 x10^3/uL (1.0-4.8); LYMPH % 26 % (24-48); MEAN CORPUSCULAR HEMOGLOBIN 30 pg (25-35); MEAN CORPUSCULAR HGB CONC 33 g/dL (31-37); MEAN CORPUSCULAR VOLUME 91 fL (79-100); MONO # 0.4 x10^3/uL (0.0-1.1); MONO % 6 % (0-9); NEUT # 4.4 x10^3uL (1.8-7.7); NEUT % 66 % (31-73); PLATELET COUNT 313 x10^3/uL (140-400); RED BLOOD COUNT 4.17 x10^6/uL (3.50-5.40); RED CELL DISTRIBUTION WIDTH 13.3 % (11.5-14.5); WHITE BLOOD COUNT 6.7 x10^3/uL (4.0-11.0)
[2021-08-08 12:26] LABS: CREATININE 0.7 mg/dL (0.6-1.0); GFR 98.3
[2021-08-08] MEDS ORDERED: ONDANSETRON PF 4 MG/2 ML VIAL. IVP ONE ×2 (12:30→14:15)
[2021-08-08 12:32] LABS: ALBUMIN 3.7 g/dL (3.4-5.0); ALBUMIN/GLOBULIN RATIO 1.2 (1.0-1.7); TOTAL BILIRUBIN 0.5 mg/dL (0.2-1.0); TOTAL PROTEIN 6.9 g/dL (6.4-8.2)
--- NOTE | 2021-08-08 12:47 | EKG ---
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
[2021-08-08 14:30] LABS: AMORPHOUS SEDIMENT,UR PRESENT /HPF; BACTERIA,URINE FEW /HPF (0-FEW); BARBITURATES NEG (NEG); BENZODIAZEPINES NEG (NEG); BILIRUBIN,URINE NEG (NEG); CANNABINOIDS NEG (NEG); CLARITY,URINE HAZY; COCAINE NEG (NEG); COLOR,URINE YELLOW; GLUCOSE,URINE NEG (NEG); METHADONE NEG (NEG); NITRITE,URINE NEG (NEG); OPIATES NEG (NEG); PHENCYCLIDINE NEG (NEG); SQUAMOUS EPITHELIAL CELL,UR FEW /LPF; UROBILINOGEN,URINE 0.2 mg/dL (0.2 mg/dL)
[2021-08-08 14:32] LABS: AMPHETAMINE/METHAMPHETAMINE NEG (NEG)
[2021-08-08] MEDS ORDERED: IBUPROFEN 400 MG TABLET. PO ONE (15:30)
[2021-08-08] MEDS ORDERED: METO5TAB55 PO (15:31)
[2021-08-08 15:43] VITALS: BP 148/99
[2021-08-08] MEDS ORDERED: ONDA4TAB7 PO (22:09)
[2021-08-08] MEDS ORDERED: PROM25SU33 RC (22:11)
== END 2021-08-08 15:35 | disposition home or self-care (01) ==
LOC: ER 11:23
DX: G89.29 Other chronic pain (principal); R10.84 Generalized abdominal pain; R11.2 Nausea with vomiting, unspecified; E10.9 Type 1 diabetes mellitus without complications; F41.9 Anxiety disorder, unspecified; F32.9 Major depressive disorder, single episode, unspecified; K21.9 Gastro-esophageal reflux disease without esophagitis; F17.210 Nicotine dependence, cigarettes, uncomplicated; Z88.8 Allergy status to other drugs, medicaments and biological substances
CPT/HCPCS: 36415; 80053; 80307; 81001; 82010; 82947; 85025; 93005; 96361; 96374; 96376; 99284; J2405; J7030

== ENCOUNTER 2021-08-08 20:46 | Emergency (ER) | payer MEDICAID ==
[2021-08-08 15:43] VITALS: BP 148/99
[~2021-08-08 20:46] MED LIST changes: +METO5TAB55 PO
[2021-08-08] MEDS ORDERED: DEXTROSE 50% 25 GM / 50ML DISP.SYRIN. IV ONE ×2 (20:49→21:00)
[2021-08-08] MEDS ORDERED: METOCLOPRAMIDE HCL 10 MG/2 ML VIAL. IVP ONE (21:00)
[2021-08-08] MEDS ORDERED: IV RINGERS SOLUTION,LACTATED 1,000 ML IV ONE (21:00)
[2021-08-08] MEDS ORDERED: diphenhydrAMINE 50 MG/ML VIAL IVP ONE (21:00)
[2021-08-08] MEDS ORDERED: ONDA4TAB7 PO (22:09)
[2021-08-08] MEDS ORDERED: PROM25SU33 RC (22:11)
--- NOTE | 2021-08-08 22:11 | PHYS DOC ---
Past History Past Medical History: Anxiety, Constipation, Depression, Diabetes, GERD, Ovarian Cyst, Other Additional Past Medical Histor: gastroparesis, drug abuse Past Surgical History: Other Additional Past Surgical Histo: ovarian cyst;eyex3;earx3;port;chest tubes; bx of rt ankle Smoking: Cigarettes, Less than 1pk/day Alcohol Use: None Drug Use: Marijuana, Methamphetamine Adult General Chief Complaint Chief Complaint: GI PROBLEM HPI HPI Patient is a 31-year-old female with multiple medical problems, chronic abdomina l cramping, chronic nausea and vomiting who presents with some nausea and vomiting. States she can usually manage it at home with her Zofran but is out. Denies any recent traumas, travels, fevers, chest pain, shortness of breath, actual abdominal pain, dysuria, hematuria, blood in the stool or diarrhea. Review of Systems Review of Systems Review of systems otherwise unremarkable except noted in HPI Current Medications Current Medications Current Medications Medications (Trade) Dose Ordered Sig/Chevy Start Time Stop Time Status Last Admin Dose Admin Dextrose (Dextrose 50%-Water Syringe) 25 gm 1X ONCE 08/08/21 21:00 08/08/21 21:02 DC Diphenhydramine HCl (Benadryl) 25 mg 1X ONCE 08/08/21 21:00 08/08/21 21:02 DC 08/08/21 21:54 25 MG Fentanyl Citrate (Fentanyl 2ml Vial) 50 mcg 1X ONCE 08/08/21 21:00 08/08/21 21:02 DC 08/08/21 21:55 50 MCG Lactated Ringer's 1,000 ml @ 1,000 mls/hr 1X ONCE 08/08/21 21:00 08/08/21 21:59 DC 08/08/21 21:53 1,000 MLS/HR Metoclopramide HCl (Reglan Vial) 10 mg 1X ONCE 08/08/21 21:00 08/08/21 21:02 DC 08/08/21 21:54 10 MG Allergies Allergies Allergies Coded Allergies Type Severity Reaction Last Updated Verified acetaminophen Allergy Intermediate HIVES 07/22/21 Yes adhesive tape Allergy Intermediate 07/22/21 Yes Physical Exam Physical Exam Constitutional: Well developed, well nourished, no acute distress, non-toxic appearance. [] HENT: Normocephalic, atraumatic, bilateral external ears normal, oropharynx moist, no oral exudates, nose normal. [] Eyes: conjunctiva normal, no discharge. [] Neck: Normal range of motion, no tenderness, supple, no stridor. [] Cardiovascular:Heart rate regular rhythm, no murmur [] Lungs & Thorax: Bilateral breath sounds clear to auscultation [] Abdomen: soft, no tenderness, no masses, no pulsatile masses. [] Skin: Warm, dry, no erythema, no rash. [] Extremities: No tenderness, ROM intact, no edema. [] Neurologic: Alert and oriented X 3,no focal deficits noted. [] Psychologic: Affect normal, judgement normal, mood normal. [] Current Patient Data Vital Signs Vital Signs Date Time Temp Pulse Resp B/P (MAP) Pulse Ox O2 Delivery O2 Flow Rate FiO2 08/08/21 21:55 18 97 Room Air Lab Results Laboratory Tests Test 08/08/21 20:53 Glucose (Fingerstick) 87 mg/dL (70-99) EKG EKG [] Radiology/Procedures Radiology/Procedures [] Heart Score C/O Chest Pain: No Risk Factors: Risk Factors: DM, Current or recent (<one month) smoker, HTN, HLP, family history of CAD, obesity. Risk Scores: Risk Factors: DM, Current or recent (<one month) smoker, HTN, HLP, family history of CAD, obesity. Course & Med Decision Making Course & Med Decision Making Patient is a 31-year-old female presents with nausea and vomiting Vital signs notable for mild tachycardia. Physical exam noted above. Patient placed on monitor with IV access established and IV fluid given. Given pain and nausea medicine. Blood glucose 87. On reassessment patient stated she was feeling much better and would like to go home and wanted a prescription for nausea medicine for the house. Yanet all findings with patient advised on use of nausea medicine. Advised to stay hydrated. Advised to follow-up in the morning with primary care physician to set up an appointment. Return precautions to the ED. Patient grateful, verbalized understanding and agreed with plan of discharge. Dragon Disclaimer Dragon Disclaimer This electronic medical record was generated, in whole or in part, using a voice recognition dictation system. Departure Departure: Impression: Primary Impression: Nausea and vomiting Disposition: HOME / SELF CARE / HOMELESS Condition: GOOD Referrals: PCPBAY (PCP) DINO ROMAN Patient Instructions: Nausea and Vomiting Additional Instructions: Thanks for coming into the emergency department tonight and allowing us to take care of you. Please read the attached information to go over things we discussed. Please take your nausea medicine as prescribed to allow yourself to drink. Please call your primary care physician in the morning to update on ED visit and set up a follow-up appointment. Please come back to the ED with new or concerning symptoms as discussed Scripts Promethazine Hcl (PROMETHAZINE HCL) 25 Mg Supp.rect 25 MG RC BID for nausea for 3 Days, #6 SUPP.RECT 1 Refill Prov: TANIKA CAMARENA MD 08/08/21 Ondansetron Hcl (ZOFRAN) 4 Mg Tablet 2 TAB PO TID PRN for NAUSEA for 10 Days, #30 TAB 1 Refill Prov: TANIKA CAMARENA MD 08/08/21 TANIKA CAMARENA MD Aug 08, 2021 22:11
== END 2021-08-08 22:20 | disposition home or self-care (01) ==
LOC: ER 20:46
DX: R11.2 Nausea with vomiting, unspecified (principal); G89.29 Other chronic pain; F41.9 Anxiety disorder, unspecified; E11.9 Type 2 diabetes mellitus without complications; K21.9 Gastro-esophageal reflux disease without esophagitis; F17.210 Nicotine dependence, cigarettes, uncomplicated; Z88.8 Allergy status to other drugs, medicaments and biological substances
CPT/HCPCS: 81025; 82947; 96361; 96374; 96375; 99284; J1200; J2765; J3010; J7120

== ENCOUNTER 2021-08-10 18:09 | Emergency (ER) | payer MEDICAID ==
[~2021-08-10] VITALS: Ht 172.7 cm; Wt 56.1 kg
[~2021-08-10 18:09] MED LIST changes: +PROM25SU33 RC
[2021-08-10] MEDS ORDERED: KETOROLAC 15 MG/ML VIAL. IVP ONE (18:30)
[2021-08-10] MEDS ORDERED: IV NORMAL SALINE 1,000ML 1,000 ML IV ONE (18:30)
[2021-08-10] MEDS ORDERED: diphenhydrAMINE 50 MG/ML VIAL IVP ONE (18:30)
[2021-08-10] MEDS ORDERED: FAMOTIDINE 20 MG/2 ML VIAL IVP ONE (18:30)
[2021-08-10] MEDS ORDERED: METOCLOPRAMIDE HCL 10 MG/2 ML VIAL. IVP ONE (18:30)
[2021-08-10 19:01] LABS: BASO # 0.1 x10^3/uL (0.0-0.2); BASO % 1 % (0-3); EOS # 0.2 x10^3/uL (0.0-0.7); EOS % 3 % (0-3); HEMATOCRIT 39.3 % (36.0-47.0); HEMOGLOBIN 13.2 g/dL (12.0-15.5); LYMPH # 1.9 x10^3/uL (1.0-4.8); LYMPH % 34 % (24-48); MEAN CORPUSCULAR HEMOGLOBIN 30 pg (25-35); MEAN CORPUSCULAR HGB CONC 34 g/dL (31-37); MEAN CORPUSCULAR VOLUME 90 fL (79-100); MONO # 0.4 x10^3/uL (0.0-1.1); MONO % 8 % (0-9); NEUT # 3.1 x10^3uL (1.8-7.7); NEUT % 55 % (31-73); PLATELET COUNT 306 x10^3/uL (140-400); RED BLOOD COUNT 4.37 x10^6/uL (3.50-5.40); RED CELL DISTRIBUTION WIDTH 13.3 % (11.5-14.5); WHITE BLOOD COUNT 5.6 x10^3/uL (4.0-11.0)
[2021-08-10 19:03] LABS: CREATININE 0.6 mg/dL (0.6-1.0); GFR 117.4; POTASSIUM 4.2 mmol/L (3.5-5.1)
[2021-08-10 19:09] LABS: ALBUMIN 3.7 g/dL (3.4-5.0); MAGNESIUM 1.8 mg/dL (1.8-2.4); TOTAL BILIRUBIN 0.7 mg/dL (0.2-1.0); TOTAL PROTEIN 7.4 g/dL (6.4-8.2)
[2021-08-10 21:01] LABS: BILIRUBIN,URINE NEG (NEG); CLARITY,URINE CLOUDY; COLOR,URINE YELLOW; GLUCOSE,URINE 500 mg/dL (NEG)
[2021-08-10 21:02] LABS: NITRITE,URINE NEG (NEG)
[2021-08-10 21:03] LABS: BACTERIA,URINE FEW /HPF (0-FEW); BARBITURATES NEG (NEG); BENZODIAZEPINES NEG (NEG); CANNABINOIDS NEG (NEG); COCAINE NEG (NEG); METHADONE NEG (NEG); OPIATES NEG (NEG); PHENCYCLIDINE NEG (NEG); SQUAMOUS EPITHELIAL CELL,UR OCC /LPF
[2021-08-10 21:05] LABS: AMPHETAMINE/METHAMPHETAMINE POS (NEG)
[2021-08-10] MEDS ORDERED: ONDANSETRON PF 4 MG/2 ML VIAL. IVP ONE (21:15)
[2021-08-10] MEDS ORDERED: HALOPERIDOL LACT 5 MG/ML VIAL. IM ONE (21:30)
[2021-08-10] MEDS ORDERED: HALOPERIDOL LACT 5 MG/ML VIAL. ONE (21:30)
[2021-08-10] MEDS ORDERED: HYOS0.1265 SL (22:34)
[2021-08-10] MEDS ORDERED: PROM25SU33 RC (22:34)
[2021-08-10] MEDS ORDERED: FAMO-63 PO (22:34)
--- NOTE | 2021-08-10 22:34 | PHYS DOC ---
Past History Past Medical History: Anxiety, Constipation, Depression, Diabetes, GERD, Ovarian Cyst, Other Additional Past Medical Histor: gastroparesis, drug abuse Past Surgical History: Other Additional Past Surgical Histo: ovarian cyst;eyex3;earx3;port;chest tubes; bx of rt ankle Smoking: Cigarettes, Less than 1pk/day Alcohol Use: None Drug Use: Marijuana, Methamphetamine General Adult EDM: Chief Complaint: NAUSEA/VOMITING/DIARRHEA HPI: HPI: 31-year-old female with past medical history of gastroparesis presents via EMS with report of intractable nausea and vomiting. Reports is been ongoing for the past several days. Patient also reports some associated "loose stools ". Denies fever or chills. Denies trauma. Patient denies known sick contacts. Denies known exposure to COVID-19. Denies . Review of Systems: Review of Systems: Constitutional: Denies fever or chills Eyes: Denies redness or eye pain HENT: Denies nasal congestion or sore throat Respiratory: Denies cough or shortness of breath Cardiovascular: Denies chest pain or palpitations GI: Reports diffuse abdominal pain, nausea, and vomiting and "loose "stools : Denies dysuria or hematuria Musculoskeletal: Denies back pain or joint pain Integument: Denies rash or skin lesions Neurologic: Denies headache, focal weakness or sensory changes Complete systems were reviewed and found to be within normal limits, except as documented in this note. Current Medications: Current Meds: Current Medications Medications (Trade) Dose Ordered Sig/Chevy Start Time Stop Time Status Last Admin Dose Admin Diphenhydramine HCl (Benadryl) 25 mg 1X ONCE 08/10/21 18:30 08/10/21 18:40 DC 08/10/21 18:49 25 MG Famotidine (Pepcid Vial) 20 mg 1X ONCE 08/10/21 18:30 08/10/21 18:40 DC 08/10/21 18:49 20 MG Haloperidol Lactate (Haldol) 5 mg STK-MED ONCE 08/10/21 21:30 08/10/21 21:30 DC Ketorolac Tromethamine (Toradol 15mg Vial) 15 mg 1X ONCE 08/10/21 18:30 08/10/21 18:40 DC 08/10/21 18:49 15 MG Metoclopramide HCl (Reglan Vial) 10 mg 1X ONCE 08/10/21 18:30 08/10/21 18:40 DC 08/10/21 18:49 10 MG Ondansetron HCl (Zofran) 4 mg 1X ONCE 08/10/21 21:15 08/10/21 21:30 DC 08/10/21 21:19 4 MG Sodium Chloride 1,000 ml @ 1,000 mls/hr 1X ONCE 08/10/21 18:30 08/10/21 19:29 DC 08/10/21 18:49 1,000 MLS/HR Allergies: Allergies: Allergies Coded Allergies Type Severity Reaction Last Updated Verified acetaminophen Allergy Intermediate HIVES 07/22/21 Yes adhesive tape Allergy Intermediate 07/22/21 Yes Physical Exam: PE: Constitutional: Well developed, well nourished, uncomfortable but non-toxic appearance HENT: Normocephalic, atraumatic Eyes: Conjunctiva normal, no discharge Neck: Normal range of motion, supple, no meningeal signs Lungs & Thorax: No respiratory distress, equal chest rise and fall Abdomen: Soft, mild diffuse tenderness, no guarding/rebound ten derness/distention Skin: Warm, dry, no erythema, no rash Back: No tenderness, no CVA tenderness Extremities: No tenderness, ROM intact, no edema Neurologic: Alert and oriented X 3, no focal deficits noted Psychologic: Affect normal, judgment normal Current Patient Data: Labs: Laboratory Tests Test 08/10/21 18:38 08/10/21 20:41 08/10/21 20:59 White Blood Count 5.6 x10^3/uL (4.0-11.0) Red Blood Count 4.37 x10^6/uL (3.50-5.40) Hemoglobin 13.2 g/dL (12.0-15.5) Hematocrit 39.3 % (36.0-47.0) Mean Corpuscular Volume 90 fL (79-100) Mean Corpuscular Hemoglobin 30 pg (25-35) Mean Corpuscular Hemoglobin Concent 34 g/dL (31-37) Red Cell Distribution Width 13.3 % (11.5-14.5) Platelet Count 306 x10^3/uL (140-400) Neutrophils (%) (Auto) 55 % (31-73) Lymphocytes (%) (Auto) 34 % (24-48) Monocytes (%) (Auto) 8 % (0-9) Eosinophils (%) (Auto) 3 % (0-3) Basophils (%) (Auto) 1 % (0-3) Neutrophils # (Auto) 3.1 x10^3uL (1.8-7.7) Lymphocytes # (Auto) 1.9 x10^3/uL (1.0-4.8) Monocytes # (Auto) 0.4 x10^3/uL (0.0-1.1) Eosinophils # (Auto) 0.2 x10^3/uL (0.0-0.7) Basophils # (Auto) 0.1 x10^3/uL (0.0-0.2) Sodium Level 134 mmol/L (136-145) L Potassium Level 4.2 mmol/L (3.5-5.1) Chloride Level 99 mmol/L (98-107) Carbon Dioxide Level 27 mmol/L (21-32) Anion Gap 8 (6-14) Blood Urea Nitrogen 17 mg/dL (7-20) Creatinine 0.6 mg/dL (0.6-1.0) Estimated GFR (Cockcroft-Gault) 117.4 BUN/Creatinine Ratio 28 (6-20) H Glucose Level 258 mg/dL (70-99) H Calcium Level 9.0 mg/dL (8.5-10.1) Magnesium Level 1.8 mg/dL (1.8-2.4) Total Bilirubin 0.7 mg/dL (0.2-1.0) Aspartate Amino Transferase (AST) 22 U/L (15-37) Alanine Aminotransferase (ALT) 21 U/L (14-59) Alkaline Phosphatase 72 U/L (46-116) Total Protein 7.4 g/dL (6.4-8.2) Albumin 3.7 g/dL (3.4-5.0) Albumin/Globulin Ratio 1.0 (1.0-1.7) Lipase 28 U/L (73-393) L Urine Collection Type Unknown Urine Color Yellow Urine Clarity Cloudy Urine pH 7.5 Urine Specific [place] 1.025 Urine Protein >100 mg/dl (NEG-TRACE) Urine Glucose (UA) 500 mg/dL (NEG) Urine Ketones (Stick) 80 mg/dL (NEG) Urine Blood Large (NEG) Urine Nitrite Neg (NEG) Urine Bilirubin Neg (NEG) Urine Urobilinogen Dipstick 1.0 mg/dL (0.2 mg/dL) Urine Leukocyte Esterase Neg (NEG) Urine RBC 1-2 /HPF (0-2) Urine WBC 1-4 /HPF (0-4) Urine Squamous Epithelial Cells Occ /LPF Urine Bacteria Few /HPF (0-FEW) Urine Mucus Slight /LPF Urine Opiates Screen Neg (NEG) Urine Methadone Screen Neg (NEG) Urine Barbiturates Neg (NEG) Urine Phencyclidine Screen Neg (NEG) Urine Amphetamine/Methamphetamine Pos (NEG) Urine Benzodiazepines Screen Neg (NEG) Urine Cocaine Screen Neg (NEG) Urine Cannabinoids Screen Neg (NEG) Urine Ethyl Alcohol Neg (NEG) POC Urine HCG, Qualitative hcg negative (Negative) Vital Signs: Vital Signs Date Time Temp Pulse Resp B/P (MAP) Pulse Ox O2 Delivery O2 Flow Rate FiO2 08/10/21 20:10 98.5 100 16 150/87 (108) 100 08/10/21 18:12 Room Air EKG: EKG: [] Radiology/Procedures: Radiology/Procedures: [] Heart Score: C/O Chest Pain: N/A Course & Med Decision Making: Course & Med Decision Making Pertinent Lab studies reviewed. (See chart for details) Patient well-known to emergency department presents with chronic nausea and vomiting. Patient does have a history of methamphetamine abuse. Reports has not used recently. Symptomatic treatment provided. IV fluid hydration given. Labs obtained and posted to chart. UDS is positive for methamphetamines. Patient stable for discharge with outpatient follow-up with PCP/GI. GI referral provided. Discussed findings and plan with patient, who acknowledges understanding and agreement. Annelise Disclaimer: Annelise Disclaimer: This electronic medical record was generated, in whole or in part, using a voice recognition dictation system. Departure Departure: Impression: Primary Impression: Cyclic vomiting syndrome Disposition: HOME / SELF CARE / HOMELESS Condition: STABLE Referrals: PCP,BAY (PCP) JESSICA GODINEZ MD Patient Instructions: Clear Liquid Diet, Exsk-ug-Nren, Cyclic Vomiting Syndrome Scripts Famotidine (PEPCID) 20 Mg Tablet 1 TAB PO BID for Gastritis, #20 TAB Prov: VANESSA OLIVER DO 08/10/21 Hyoscyamine Sulfate (LEVSIN-SL) 0.125 Mg Tab.subl 0.125 MG SL Q4-6HRS PRN for PAIN, #14 TAB Prov: VANESSA OLIVER DO 08/10/21 Promethazine Hcl (PROMETHAZINE HCL) 25 Mg Supp.rect 25 MG RC Q6HRS PRN for NAUSEA, #10 SUPP.RECT Prov: VANESSA OLIVER DO 08/10/21 VANESSA OLIVER DO Aug 10, 2021 22:34
[2021-08-10 22:40] VITALS: BP 105/70
== END 2021-08-10 22:40 | disposition home or self-care (01) ==
LOC: ER 18:09
DX: R11.2 Nausea with vomiting, unspecified (principal); R19.7 Diarrhea, unspecified; R10.84 Generalized abdominal pain; E11.9 Type 2 diabetes mellitus without complications; K21.9 Gastro-esophageal reflux disease without esophagitis; F17.210 Nicotine dependence, cigarettes, uncomplicated; Z88.8 Allergy status to other drugs, medicaments and biological substances; Z88.6 Allergy status to analgesic agent
CPT/HCPCS: 36415; 80053; 80307; 81001; 81025; 82947; 83690; 83735; 85025; 96361; 96372; 96374; 96375; 99284; J1200; J1630; J1885; J2405; J2765; J3490; J7030

== ENCOUNTER 2021-08-30 04:52 | Emergency (ER) | payer MEDICAID ==
[~2021-08-30] VITALS: Ht 172.7 cm; Wt 58.0 kg
[~2021-08-30 04:52] MED LIST changes: +CLIN-95 PO; -CLIN300C9 PO; +HYOS0.1265 SL; +MAGN400T48 PO; -MAGN400T5 PO
--- NOTE | 2021-08-30 05:03 | PHYS DOC ---
Past History Past Medical History: Anxiety, Constipation, Depression, Diabetes, GERD, Ovarian Cyst, Other Additional Past Medical Histor: gastroparesis, drug abuse (TANIKA CAMARENA MD) Past Surgical History: Other Additional Past Surgical Histo: ovarian cyst;eyex3;earx3;port;chest tubes; bx of rt ankle (TANIKA CAMARENA MD) Smoking: Cigarettes, Less than 1pk/day Alcohol Use: None Drug Use: Marijuana, Methamphetamine (TANIKA CAMARENA MD) Adult General HPI HPI Patient is a 31-year-old female with a past medical history significant for diabetes, anxiety, depression, chronic/cyclic nausea vomiting who presents to the emergency department with a chief complaint of nausea and vomiting (TANIKA CAMARENA MD) Review of Systems Review of Systems Review of systems otherwise unremarkable except noted in HPI (TANIKA CAMARENA MD) Allergies Allergies Allergies Coded Allergies Type Severity Reaction Last Updated Verified acetaminophen Allergy Intermediate HIVES 07/22/21 Yes adhesive tape Allergy Intermediate 07/22/21 Yes (TANIKA CAMARENA MD) Physical Exam Physical Exam Constitutional: Well developed, well nourished, no acute distress, non-toxic appearance. [] HENT: Normocephalic, atraumatic, oropharynx dry, no oral exudates, nose normal. [] Eyes: conjunctiva normal, no discharge. [] Neck: Normal range of motion, no tenderness, supple, no stridor. [] Cardiovascular:Heart rate regular rhythm, no murmur [] Lungs & Thorax: Bilateral breath sounds clear to auscultation [] Abdomen: soft, no tenderness, no masses, no pulsatile masses. [] Skin: Warm, dry, no erythema, no rash. [] Extremities: No tenderness, no cyanosis, no clubbing, ROM intact, no edema. [] Neurologic: Alert and oriented X 3, no focal deficits noted. [] Psychologic: Affect normal, judgement normal, mood normal. [] (TANIKA CAMARENA MD) EKG EKG [] (TANIKA CAMARENA MD) Radiology/Procedures Radiology/Procedures [] (TANIKA CAMARENA MD) Heart Score C/O Chest Pain: No Risk Factors: Risk Factors: DM, Current or recent (<one month) smoker, HTN, HLP, family history of CAD, obesity. Risk Scores: Risk Factors: DM, Current or recent (<one month) smoker, HTN, HLP, family history of CAD, obesity. (TANIKA CAMARENA MD) C/O Chest Pain: N/A (LINDA JOSEPH MD) Course & Med Decision Making Course & Med Decision Making Patient is a 31-year-old female, with a history of chronic/cyclic nausea vomiting and diabetes who presents with nausea and vomiting (TANIKA CAMARENA MD) Course & Med Decision Making I received this patient in signout at 0600. Labs have returned largely reassuring. UA does appear infected. Urine tox is positive for THC, meth, opiates (opiates were given in the ED prior to collection of urine). Her symptoms are improved at this time. We will send cefdinir for urinary tract infection. (LINDA JOSEPH MD) Dragon Disclaimer Dragon Disclaimer This electronic medical record was generated, in whole or in part, using a voice recognition dictation system. (TANIKA CAMARENA MD) Departure Departure: Impression: Primary Impression: Nausea & vomiting Additional Impression: UTI (urinary tract infection) Disposition: HOME / SELF CARE / HOMELESS Condition: STABLE Referrals: PCP,BAY (PCP) DINO ROMAN Patient Instructions: Nausea and Vomiting Additional Instructions: Your urine appeared infected. Please take antibiotics as prescribed. Please follow up with your outpatient providers to ensure your symptoms improve. I have prescribed zofran for nausea. Please use as instructed on label. Thank you for coming into the emergency department tonight and allowing us to take care of you. Please read the attached information carefully to go back over things we discussed. Please follow-up first thing in the morning with your primary care physician to discuss your ED visit and set up a follow-up as soon as possible. Please come back to the ED immediately with new or concerning symptoms as we discussed. Scripts Ondansetron Hcl (ZOFRAN) 4 Mg Tablet 4 MG PO PRN Q6HRS PRN for NAUSEA for 7 Days, #30 TAB 0 Refills Prov: LINDA JOSEPH MD 08/30/21 Cefdinir (CEFDINIR) 300 Mg Capsule 1 CAP PO BID for uti for 7 Days, #14 CAP Prov: LINDA JOSEPH MD 08/30/21 Problem Qualifiers TANIKA CAMARENA MD Aug 30, 2021 05:03 LINDA JOSEPH MD Aug 30, 2021 10:02
[2021-08-30] MEDS ORDERED: ONDANSETRON ODT 4 MG TAB.RAPDIS ONE (05:20)
[2021-08-30] MEDS ORDERED: IV RINGERS SOLUTION,LACTATED 1,000 ML IV ONE (05:30)
[2021-08-30] MEDS ORDERED: METOCLOPRAMIDE HCL 10 MG/2 ML VIAL. IVP ONE (05:30)
[2021-08-30] MEDS ORDERED: ONDANSETRON PF 4 MG/2 ML VIAL. IVP ONE (05:30)
[2021-08-30 05:59] LABS: BASO # 0.1 x10^3/uL (0.0-0.2); BASO % 1 % (0-3); EOS % 0 % (0-3); HEMATOCRIT 38.6 % (36.0-47.0); HEMOGLOBIN 12.8 g/dL (12.0-15.5); LYMPH # 1.2 x10^3/uL (1.0-4.8); LYMPH % 17 % (24-48); MEAN CORPUSCULAR HEMOGLOBIN 30 pg (25-35); MEAN CORPUSCULAR HGB CONC 33 g/dL (31-37); MEAN CORPUSCULAR VOLUME 90 fL (79-100); MONO # 0.2 x10^3/uL (0.0-1.1); MONO % 3 % (0-9); NEUT # 5.4 x10^3uL (1.8-7.7); NEUT % 79 % (31-73); PLATELET COUNT 345 x10^3/uL (140-400); RED CELL DISTRIBUTION WIDTH 13.4 % (11.5-14.5); WHITE BLOOD COUNT 6.9 x10^3/uL (4.0-11.0)
[2021-08-30] MEDS ORDERED: ONDANSETRON ODT 4 MG TAB.RAPDIS PO ONE (06:00)
[2021-08-30] MEDS ORDERED: METOCLOPRAMIDE HCL 10 MG/2 ML VIAL. IM ONE (06:00)
[2021-08-30 06:05] LABS: CALCIUM 9.5 mg/dL (8.5-10.1); CREATININE 0.7 mg/dL (0.6-1.0); GFR 98.3; POTASSIUM 3.9 mmol/L (3.5-5.1)
[2021-08-30 06:11] LABS: ALBUMIN/GLOBULIN RATIO 1.1 (1.0-1.7); TOTAL BILIRUBIN 0.6 mg/dL (0.2-1.0); TOTAL PROTEIN 7.8 g/dL (6.4-8.2)
[2021-08-30] MEDS ORDERED: PROCHLORPERAZINE 10 MG/2 ML VIAL. IV PRN (07:00)
[2021-08-30] MEDS ORDERED: MORPHINE SULFATE 4 MG/ML DISP.SYRIN. IV ONE (07:15)
[2021-08-30 09:29] LABS: BARBITURATES NEG (NEG); BENZODIAZEPINES NEG (NEG); CANNABINOIDS POS (NEG); COCAINE NEG (NEG); METHADONE NEG (NEG); OPIATES POS (NEG); PHENCYCLIDINE NEG (NEG)
[2021-08-30 09:33] LABS: AMPHETAMINE/METHAMPHETAMINE POS (NEG)
[2021-08-30 09:44] LABS: CLARITY,URINE CLOUDY; COLOR,URINE YELLOW
[2021-08-30 09:47] LABS: BILIRUBIN,URINE SMALL (NEG); GLUCOSE,URINE NEG (NEG)
[2021-08-30 09:48] LABS: BACTERIA,URINE MANY /HPF (0-FEW); NITRITE,URINE NEG (NEG); RBC,URINE 20-40 /HPF (0-2); SQUAMOUS EPITHELIAL CELL,UR MOD /LPF; UROBILINOGEN,URINE 0.2 mg/dL (0.2 mg/dL); WBC,URINE >40 /HPF (0-4)
[2021-08-30 10:00] VITALS: BP 140/79
[2021-08-30] MEDS ORDERED: ONDA4TAB7 PO (10:01)
[2021-08-30] MEDS ORDERED: CEFD300C PO (10:01)
== END 2021-08-30 10:11 | disposition home or self-care (01) ==
LOC: ER 04:52
DX: N39.0 Urinary tract infection, site not specified (principal); R11.2 Nausea with vomiting, unspecified; F41.9 Anxiety disorder, unspecified; F32.9 Major depressive disorder, single episode, unspecified; E11.43 Type 2 diabetes mellitus with diabetic autonomic (poly)neuropathy; K31.84 Gastroparesis; K21.9 Gastro-esophageal reflux disease without esophagitis; F17.210 Nicotine dependence, cigarettes, uncomplicated; Z88.6 Allergy status to analgesic agent; Z88.8 Allergy status to other drugs, medicaments and biological substances
CPT/HCPCS: 36415; 80053; 80307; 81001; 83690; 85025; 87077; 87086; 87186; 96361; 96372; 96374; 96375; 99285; J0780; J2270; J2765; J7120; Q0162

== ENCOUNTER 2021-09-01 17:14 | Emergency (ER) | payer MEDICAID ==
[~2021-09-01] VITALS: Ht 172.7 cm; Wt 58.0 kg
[2021-09-01 18:42] VITALS: BP 154/92
--- NOTE | 2021-09-01 18:46 | PHYS DOC ---
Past History Past Medical History: Anxiety, Constipation, Depression, Diabetes, GERD, Ovarian Cyst, Other Additional Past Medical Histor: gastroparesis, drug abuse (VANESSA LE APRN) Past Surgical History: Other Additional Past Surgical Histo: ovarian cyst;eyex3;earx3;port;chest tubes; bx of rt ankle (VANESSA LE APRN) Smoking: Cigarettes, Less than 1pk/day Alcohol Use: None Drug Use: Marijuana, Methamphetamine (VANESSA LE APRN) Adult General Chief Complaint Chief Complaint: NAUSEA/VOMITING/DIARRHEA HPI HPI Patient is a 31-year-old female presents emergency department complaining of nausea and vomiting, denies diarrhea, patient states she is , patient reports having a positive home test 6 weeks ago. Patient denies other physical complaints or physical concerns. (VANESSA LE APRN) Review of Systems Review of Systems 14 body systems of review of systems have been reviewed. See HPI for pertinent positives and negative responses, otherwise all other systems are negative, nonpertinent or noncontributory. Constitutional: Negative except as outlined in HPI above. Skin: Negative except as outlined in HPI above. Eyes: Negative except as outlined in HPI above. HENT: Negative except as outlined in HPI above. Respiratory: Negative except as outlined in HPI above. Cardiovascular: Negative except as outlined in HPI above. GI: Negative except as outlined in HPI above. : Negative except as outlined in HPI above. Musculoskeletal: Negative except as outlined in HPI above. Integument: Negative except as outlined in HPI above. Neurologic: Negative except as outlined in HPI above. Endocrine: Negative except as outlined in HPI above. Lymphatic: Negative except as outlined in HPI above. Psychiatric: Negative except as outlined in HPI above. (VANESSA LE APRN) Allergies Allergies Allergies Coded Allergies Type Severity Reaction Last Updated Verified acetaminophen Allergy Intermediate HIVES 08/30/21 Yes adhesive tape Allergy Intermediate 08/30/21 Yes (VANESSA LE APRN) Physical Exam Physical Exam Constitutional: Well developed, well nourished, no acute distress, non-toxic appearance. 31-year-old female in no apparent distress. HENT: Normocephalic, atraumatic. Eyes: Conjunctiva normal, no discharge. Neck: Normal range of motion, no stridor. Cardiovascular: No cyanosis appreciated, distal cap refill less than 2 seconds. Lungs & Thorax: Patient is in no respiratory distress, no audible adventitious lung sounds appreciated. Abdomen: Nontender, no abnormalities noted. Skin: Warm, dry, no erythema, no rash. Back: No tenderness, no deformities. Extremities: No tenderness, no cyanosis, no clubbing, ROM intact, no edema. Neurologic: Alert and oriented X 3, normal motor function, normal sensory function, no focal deficits noted. Psychologic: Affect normal, judgement normal, mood normal. (VANESSA LE APRN) Current Patient Data Vital Signs Vital Signs Date Time Temp Pulse Resp B/P (MAP) Pulse Ox O2 Delivery O2 Flow Rate FiO2 09/01/21 17:49 98.6 85 16 158/107 (124) 98 Room Air Lab Results Laboratory Tests Test 09/01/21 17:51 09/01/21 18:39 Glucose (Fingerstick) 84 mg/dL (70-99) POC Urine HCG, Qualitative hcg negative (Negative) (VANESSA LE APRN) EKG EKG [] (VANESSA LE APRN) Radiology/Procedures Radiology/Procedures [] (VANESSA LE APRN) Heart Score C/O Chest Pain: No Risk Factors: Risk Factors: DM, Current or recent (<one month) smoker, HTN, HLP, family history of CAD, obesity. Risk Scores: Risk Factors: DM, Current or recent (<one month) smoker, HTN, HLP, family history of CAD, obesity. (VANESSA LE APRN) C/O Chest Pain: N/A (TANIKA CAMARENA MD) Course & Med Decision Making Course & Med Decision Making Pertinent Labs and Imaging studies reviewed. (See chart for details) 31-year-old female, vital signs reviewed, presents emergency department complaining of nausea vomiting of . Physical presentation unremarkable, the patient is well-known to this emergency department with uncontrolled blood sugars and drug-seeking behavior, will order urinalysis assay with test, bedside blood glucose. Bedside glucose 84. The patient's urine is not infected, she is not . Will give p.o. Zofran for nausea, IM injection of Reglan for nausea, IM injection of Toradol for pain. Upon reevaluation of the patient, patient states she is feeling much better what would like more pain medication, discussed with patient will give p.o. Benadryl and p.o. dicyclomine. Patient is amenable to ED discharge planning. Discussed with patient strict follow-up with primary care for ongoing pain management. Discussed with the patient all findings and diagnostic testing as well as the need to follow-up with their primary care provider for further evaluation and treatment or return to the ED if any new or worsening symptoms. Strict return precautions were also discussed at length, the patient voiced understanding and agreement with the discharge planning. The patient was nontoxic in appearance, in no apparent distress, and hemodynamically stable at the time of disposition. (VANESSA LE APRN) Course & Med Decision Making Did not see or evaluate patient. Did not discuss patient with DEBURR TECHNICIAN. Agree with DEBURR TECHNICIAN's work-up and disposition per note. (TANIKA CAMARENA MD) Dragon Disclaimer Dragon Disclaimer This electronic medical record was generated, in whole or in part, using a voice recognition dictation system. (VANESSA LE APRN) Departure Departure: Impression: Primary Impression: Nausea & vomiting Disposition: 01 HOME / SELF CARE / HOMELESS Condition: GOOD Referrals: PCP,NO (PCP) Patient Instructions: Nausea and Vomiting Additional Instructions: You were seen today in the emergency department for nausea and vomiting. You were given nausea medication along with pain medication. As we discussed please follow-up with your primary care physician for ongoing pain management. Thank you for visiting our Emergency Department. It was a pleasure taking care of you today in the emergency department and we appreciate you trusting us with your care. If any additional problems come up don't hesitate to return to visit us. Please follow up with your primary care provider so they can plan additional care if needed and know about the problem that you had. If symptoms worsen come back to the Emergency Department. Any concerning symptoms that start such as chest pain, shortness of air, weakness or numbness on one side of the body, running high fevers or any other concerning symptoms return to the ER. Problem Qualifiers Primary Impression: Nausea & vomiting Vomiting type: unspecified Vomiting Intractability: unspecified Qualified Codes: R11.2 - Nausea with vomiting, unspecified VANESSA LE APRN Sep 01, 2021 18:46 TANIKA CAMARENA MD Sep 01, 2021 21:05
[2021-09-01 18:54] LABS: CLARITY,URINE CLOUDY; COLOR,URINE YELLOW
[2021-09-01 18:55] LABS: BACTERIA,URINE FEW /HPF (0-FEW); BILIRUBIN,URINE NEG (NEG); GLUCOSE,URINE 500 mg/dL (NEG); NITRITE,URINE NEG (NEG); SQUAMOUS EPITHELIAL CELL,UR FEW /LPF
[2021-09-01] MEDS ORDERED: METOCLOPRAMIDE HCL 10 MG/2 ML VIAL. IM ONE (19:00)
[2021-09-01] MEDS ORDERED: ONDANSETRON ODT 4 MG TAB.RAPDIS PO ONE (19:00)
[2021-09-01] MEDS ORDERED: KETOROLAC 60 MG/2 ML VIAL. IM ONE (19:00)
[2021-09-01] MEDS ORDERED: diphenhydrAMINE HCL 25 MG CAPSULE PO ONE (20:30)
[2021-09-01] MEDS ORDERED: DICYCLOMINE HCL 20 MG TABLET PO ONE (20:45)
== END 2021-09-01 18:42 | disposition home or self-care (01) ==
LOC: ER 17:14
DX: R11.2 Nausea with vomiting, unspecified (principal); E11.9 Type 2 diabetes mellitus without complications; K21.9 Gastro-esophageal reflux disease without esophagitis; F17.210 Nicotine dependence, cigarettes, uncomplicated; Z88.8 Allergy status to other drugs, medicaments and biological substances
CPT/HCPCS: 81001; 81025; 82947; 87086; 96372; 99284; J1885; J2765; Q0162; Q0163

== ENCOUNTER 2021-09-03 10:49 | Emergency (ER) | payer MEDICAID ==
[~2021-09-03] VITALS: Ht 172.7 cm; Wt 59.7 kg
[2021-09-03] MEDS ORDERED: METOCLOPRAMIDE HCL 10 MG/2 ML VIAL. IVP ONE (11:15)
--- NOTE | 2021-09-03 11:40 | PHYS DOC ---
Past History Past Medical History: Anxiety, Constipation, Depression, Diabetes, GERD, Ovarian Cyst, Other Additional Past Medical Histor: gastroparesis, substance use disorder (NICOLAS MACIAS) Past Surgical History: Other Additional Past Surgical Histo: ovarian cyst;eyex3;earx3;port;chest tubes; bx of rt ankle (NICOLAS MACIAS) Smoking: Cigarettes, Less than 1pk/day Additional Smoking Information: stopped 2 weeks ago Alcohol Use: None Drug Use: Marijuana, Methamphetamine (NICOLAS MACIAS) General Adult EDM: Chief Complaint: ABDOMINAL PAIN HPI: HPI: Patient is a 31 year old female with history of chronic nausea/vomiting, substance use disorder and uncontrolled DMII who presents with complaints of nausea, vomiting, abdominal pain. This is patient's third visit this week for the same symptoms. She reports her symptoms are unchanged. She is not able to clean up solid food or liquids down at this time. Patient states the Zofran that was prescribed to her is not improving her nausea at this time. Patient denies bloody emesis, diarrhea, constipation. (NICOLAS MACIAS) Review of Systems: Review of Systems: ROS negative except as mentioned in HPI. (NICOLAS MACIAS) Current Medications: Current Meds: Current Medications Medications (Trade) Dose Ordered Sig/Chevy Start Time Stop Time Status Last Admin Dose Admin Fentanyl Citrate (Fentanyl 2ml Vial) 50 mcg 1X ONCE 09/03/21 11:15 09/03/21 11:19 DC 09/03/21 11:35 50 MCG Metoclopramide HCl (Reglan Vial) 10 mg 1X ONCE 09/03/21 11:15 09/03/21 11:19 DC 09/03/21 11:32 10 MG (NICOLAS MACIAS) Allergies: Allergies: Allergies Coded Allergies Type Severity Reaction Last Updated Verified acetaminophen Allergy Intermediate HIVES 09/03/21 Yes adhesive tape Allergy Intermediate 09/03/21 Yes (NICOLAS MACIAS) Physical Exam: PE: Constitutional: Patient in bed and appears fatigued. Well developed, well nourished, non-toxic appearance. Cardiovascular: Heart rate regular rhythm, no murmur. Lungs & Thorax: Bilateral breath sounds clear to auscultation. Abdomen: Bowel sounds normal, soft, voluntary guarding diffuse, diffuse tenderness to palpation, no masses, no pulsatile masses. Back: No tenderness, no CVA tenderness. Extremities: No tenderness, no cyanosis, no clubbing, ROM intact, no edema. (NICOLAS MACIAS) Current Patient Data: Vital Signs: Vital Signs Date Time Temp Pulse Resp B/P (MAP) Pulse Ox O2 Delivery O2 Flow Rate FiO2 09/03/21 11:35 16 99 Room Air 09/03/21 11:31 99 172/104 (126) 09/03/21 10:58 97.7 (NICOLAS MACIAS) Heart Score: C/O Chest Pain: No (NICOLAS MACIAS) Course & Med Decision Making: Course & Med Decision Making Pertinent Labs and Imaging studies reviewed. (See chart for details) Patient is well-known to the emergency department for similar complaints. IV access was obtained, as patient cannot tolerate anything by mouth at this time. Patient was given Reglan and fentanyl. Patient continues to be tearful and retches without any emesis. Patient will be discharged home with strict instruction to follow-up with GI should her symptoms persist. Case was discussed with Dr. Baker, who is in agreement. (NICOLAS MACIAS) Course & Med Decision Making I was the Attending physician on the above date of service of this patient. This patient was evaluated, examined, treated, and dispositioned from the emergency department by the mid-level practitioner. I reviewed case and agreed that there was little indication for further diagnostic work-up in ER as patient is well- known to our facility, glucose nonconcerning for any emergent or surgical issues such as DKA. Patient continues to demonstrate pain seeking behavior consistent with previous hospitalized ER visits Electronically signed, Brenda Baker DO (BRENDA BAKER DO) Annelise Disclaimer: Annelise Disclaimer: This electronic medical record was generated, in whole or in part, using a voice recognition dictation system. (NICOLAS MACIAS) Departure Departure: Impression: Primary Impression: Intractable nausea and vomiting Additional Impressions: Abdominal pain Qualified Codes: R10.84 - Generalized abdominal pain Uncontrolled diabetes mellitus Qualified Codes: E11.65 - Type 2 diabetes mellitus with hyperglycemia Multiple substance abuse Disposition: HOME / SELF CARE / HOMELESS Condition: STABLE Referrals: PCP,NO (PCP) Patient Instructions: Clear Liquid Diet, Nausea and Vomiting, [id number], Nausea, Adult, [id number] Additional Instructions: As discussed, you will need to see a firearms assembly supervisor for further evaluation and management of your chronic nausea and vomiting. Until you are able to keep solid foods down, please adhere to a clear liquid diet consisting of lots of fluids like water, Sprite, clear broth. Scripts Metoclopramide Hcl (REGLAN) 10 Mg Tablet 1 TAB PO QID for nausea for 7 Days, #28 TAB 0 Refills before meals and bedtime Prov: NICOLAS MACIAS 09/03/21 NICOLAS MACIAS Sep 03, 2021 11:40 BRENDA BAKER DO Sep 04, 2021 12:43
[2021-09-03] MEDS ORDERED: METO10TA81 PO (13:27)
[2021-09-03 13:40] VITALS: BP 129/79
== END 2021-09-03 13:40 | disposition home or self-care (01) ==
LOC: ER 10:49
DX: E11.65 Type 2 diabetes mellitus with hyperglycemia (principal); K21.9 Gastro-esophageal reflux disease without esophagitis; F17.210 Nicotine dependence, cigarettes, uncomplicated; F12.10 Cannabis abuse, uncomplicated; F15.10 Other stimulant abuse, uncomplicated; Z88.6 Allergy status to analgesic agent
CPT/HCPCS: 82947; 96374; 96375; 99284; J2765; J3010

== ENCOUNTER 2021-09-08 14:35 | Emergency (ER) | payer MEDICAID ==
[~2021-09-08] VITALS: Ht 172.7 cm; Wt 59.7 kg
--- NOTE | 2021-09-08 15:12 | PHYS DOC ---
Past History Past Medical History: Anxiety, Constipation, Depression, Diabetes, GERD, Ovarian Cyst, Other Additional Past Medical Histor: gastroparesis, substance use disorder Past Surgical History: Other Additional Past Surgical Histo: ovarian cyst;eyex3;earx3;port;chest tubes; bx o f rt ankle Smoking: Cigarettes, Less than 1pk/day Alcohol Use: None Drug Use: Marijuana, Methamphetamine Adult General Chief Complaint Chief Complaint: NAUSEA/VOMITING/DIARRHEA HPI HPI Patient is a 31-year-old female presenting via EMS for nausea and vomit. This is an acute on chronic issue. She has known poorly controlled type 1 diabetes mellitus and subsequent gastroparesis. Reports over past 24 hours her fingerstick blood sugar has been greater than typical, averaging in the 3-4 100s . She has been trying to keep control of this at home with home insulin but has been unable to. She has had little p.o. intake, every time she has tried to eat or drink something has resulted in nausea and nonbloody nonbilious emesis. She states she is thrown up all gastric contents and just continues to dry heave. No other concerning trauma, ingestion, recent travel, change in medication, sick contact or other exposure. She has been taking her previously prescribed Zofran and Phenergan at home without significant relief in symptoms prompting her to come in for evaluation Review of Systems Review of Systems Fourteen body systems of review of systems have been reviewed. See HPI for pertinent positives and negative responses, other bustos all other systems are negative, non-pertinent or non-contributory Allergies Allergies Allergies Coded Allergies Type Severity Reaction Last Updated Verified acetaminophen Allergy Intermediate HIVES 09/08/21 Yes adhesive tape Allergy Intermediate 09/08/21 Yes Physical Exam Physical Exam Constitutional: Well developed, well nourished, appears disheveled and uncomfortable HENT: Normocephalic, atraumatic, bilateral external ears normal, oropharynx moist, no oral exudates, nose normal. Eyes: PERRLA, EOMI, conjunctiva normal, no discharge. Neck: Normal range of motion, no tenderness, supple, no stridor. Cardiovascular: Heart rate regular, sinus rhythm, no murmurs rubs or gallops Lungs & Thorax: Bilateral breath sounds clear to auscultation Abdomen: Bowel sounds normal, soft, no tenderness, no masses, no pulsatile masses. Nonsurgical abdomen, no peritoneal signs Skin: Warm, dry, no erythema, no rash. Back: No tenderness, no CVA tenderness. Extremities: No tenderness, no cyanosis, no clubbing, ROM intact, no edema. Neurologic: Alert and oriented X 3, grossly normal motor & sensory function, no focal deficits noted. Psychologic: Anxious affect and mood Current Patient Data Vital Signs Vital Signs Date Time Temp Pulse Resp B/P (MAP) Pulse Ox O2 Delivery O2 Flow Rate FiO2 09/08/21 14:40 98.8 99 20 142/94 (110) 99 Room Air Lab Results Laboratory Tests Test 09/08/21 15:32 09/08/21 15:38 09/08/21 16:00 09/08/21 16:53 White Blood Count 6.7 x10^3/uL Red Blood Count 4.42 x10^6/uL Hemoglobin 13.3 g/dL Hematocrit 40.0 % Mean Corpuscular Volume 90 fL Mean Corpuscular Hemoglobin 30 pg Mean Corpuscular Hemoglobin Concent 33 g/dL Red Cell Distribution Width 13.4 % Platelet Count 212 x10^3/uL Neutrophils (%) (Auto) 59 % Lymphocytes (%) (Auto) 30 % Monocytes (%) (Auto) 9 % Eosinophils (%) (Auto) 1 % Basophils (%) (Auto) 1 % Neutrophils # (Auto) 4.0 x10^3uL Lymphocytes # (Auto) 2.0 x10^3/uL Monocytes # (Auto) 0.6 x10^3/uL Eosinophils # (Auto) 0.1 x10^3/uL Basophils # (Auto) 0.1 x10^3/uL Sodium Level 132 mmol/L Potassium Level 3.9 mmol/L Chloride Level 96 mmol/L Carbon Dioxide Level 24 mmol/L Anion Gap 12 Blood Urea Nitrogen 18 mg/dL Creatinine 0.6 mg/dL Estimated GFR (Cockcroft-Gault) 117.4 BUN/Creatinine Ratio 30 Glucose Level 220 mg/dL Calcium Level 8.7 mg/dL Total Bilirubin 0.5 mg/dL Aspartate Amino Transf (AST/SGOT) 12 U/L Alanine Aminotransferase (ALT/SGPT) 14 U/L Alkaline Phosphatase 76 U/L Total Protein 7.1 g/dL Albumin 3.6 g/dL Albumin/Globulin Ratio 1.0 Lipase 27 U/L Glucose (Fingerstick) 209 mg/dL Urine Collection Type Unknown Urine Color Yellow Urine Clarity Hazy Urine pH 5.5 Urine Specific [place] >=1.030 Urine Protein >100 mg/dl Urine Glucose (UA) 500 mg/dL Urine Ketones (Stick) >=160 mg/dL Urine Blood Large Urine Nitrite Neg Urine Bilirubin Small Urine Urobilinogen Dipstick 0.2 mg/dL Urine Leukocyte Esterase Neg Urine RBC >40 /HPF Urine WBC 5-10 /HPF Urine Squamous Epithelial Cells Mod /LPF Urine Bacteria 0 /HPF Urine Mucus Slight /LPF Urine Yeast Present /HPF Urine Opiates Screen Neg Urine Methadone Screen Neg Urine Barbiturates Neg Urine Phencyclidine Screen Neg Urine Amphetamine/Methamphetamine Pos Urine Benzodiazepines Screen Neg Urine Cocaine Screen Neg Urine Cannabinoids Screen Pos Urine Ethyl Alcohol Neg Urine Test Negative Current Medications Medications (Trade) Dose Ordered Sig/Chevy Route PRN Reason Start Time Stop Time Status Last Admin Dose Admin Sodium Chloride 1,000 ml @ 1,000 mls/hr 1X ONCE IV 09/08/21 15:30 09/08/21 16:29 DC 09/08/21 15:30 Haloperidol Lactate (Haldol) 5 mg 1X ONCE IVP 09/08/21 15:45 09/08/21 15:54 DC 09/08/21 16:05 EKG EKG [] Radiology/Procedures Radiology/Procedures [] Heart Score C/O Chest Pain: No HEART Score for Chest Pain: HEART Score for Chest Pain Response (Comments) Value Age < 45 0 Risk Factors No Risk Factors 0 Total 0 Risk Factors: Risk Factors: DM, Current or recent (<one month) smoker, HTN, HLP, family history of CAD, obesity. Risk Scores: Risk Factors: DM, Current or recent (<one month) smoker, HTN, HLP, family history of CAD, obesity. Course & Med Decision Making Course & Med Decision Making ABCs unremarkable HPI physical exam and comprehensive ER work-up nonconcerning for any emergent or surgical issues Patient not in DKA. Ongoing abdominal issues and labile blood sugars not helped by ongoing illicit drug abuse Patient responded to IV fluids and IV Haldol. No indication for further diagnostic work-up, intervention or hospitalization Strict return precautions discussed with good understanding, all questions and concerns addressed prior to ER departure Annelise Disclaimer Dragon Disclaimer This electronic medical record was generated, in whole or in part, using a voice recognition dictation system. Departure Departure: Impression: Primary Impression: Nausea & vomiting Additional Impressions: Diabetic gastroparesis Hyperglycemia Substance abuse Disposition: HOME / SELF CARE / HOMELESS Condition: STABLE Referrals: PCP,BAY (PCP) Additional Instructions: You were seen for nausea and vomiting. Your symptoms are likely related to ongoing chronic diabetic gastroparesis. Please continue to regulate your blood glucose level and ensure tight glycemic control in addition to taking home Z ofran and/or Phenergan as needed for nausea. You should return to the ED if you develop abdominal pain, fever > 100.3, black/bloody stools, black/bloody vomiting, cannot keep water down, or any other new or concerning symptoms. Problem Qualifiers BRENDA BAKER DO Sep 08, 2021 15:12
[2021-09-08] MEDS: IV NORMAL SALINE 1,000ML 1,000 ML IV ONE (15:30)
[2021-09-08 15:48] LABS: BASO # 0.1 x10^3/uL (0.0-0.2); BASO % 1 % (0-3); EOS # 0.1 x10^3/uL (0.0-0.7); EOS % 1 % (0-3); HEMOGLOBIN 13.3 g/dL (12.0-15.5); LYMPH % 30 % (24-48); MEAN CORPUSCULAR HEMOGLOBIN 30 pg (25-35); MEAN CORPUSCULAR HGB CONC 33 g/dL (31-37); MEAN CORPUSCULAR VOLUME 90 fL (79-100); MONO # 0.6 x10^3/uL (0.0-1.1); MONO % 9 % (0-9); NEUT % 59 % (31-73); PLATELET COUNT 212 x10^3/uL (140-400); RED BLOOD COUNT 4.42 x10^6/uL (3.50-5.40); RED CELL DISTRIBUTION WIDTH 13.4 % (11.5-14.5); WHITE BLOOD COUNT 6.7 x10^3/uL (4.0-11.0)
[2021-09-08 15:57] LABS: CALCIUM 8.7 mg/dL (8.5-10.1); CREATININE 0.6 mg/dL (0.6-1.0); GFR 117.4; POTASSIUM 3.9 mmol/L (3.5-5.1)
[2021-09-08 16:01] LABS: ALBUMIN 3.6 g/dL (3.4-5.0); TOTAL BILIRUBIN 0.5 mg/dL (0.2-1.0); TOTAL PROTEIN 7.1 g/dL (6.4-8.2)
[2021-09-08] MEDS: HALOPERIDOL LACT 5 MG/ML VIAL. IVP ONE (16:05)
[2021-09-08 16:37] LABS: BARBITURATES NEG (NEG); BENZODIAZEPINES NEG (NEG); CANNABINOIDS POS (NEG); COCAINE NEG (NEG); METHADONE NEG (NEG); OPIATES NEG (NEG); PHENCYCLIDINE NEG (NEG)
[2021-09-08 16:39] LABS: AMPHETAMINE/METHAMPHETAMINE POS (NEG)
[2021-09-08 16:47] LABS: CLARITY,URINE HAZY; COLOR,URINE YELLOW
[2021-09-08 16:48] LABS: BACTERIA,URINE 0 /HPF (0-FEW); BILIRUBIN,URINE SMALL (NEG); GLUCOSE,URINE 500 mg/dL (NEG); NITRITE,URINE NEG (NEG); RBC,URINE >40 /HPF (0-2); SQUAMOUS EPITHELIAL CELL,UR MOD /LPF; UROBILINOGEN,URINE 0.2 mg/dL (0.2 mg/dL); YEAST,URINE PRESENT /HPF
[2021-09-08 16:58] LABS: U PREG PATIENT NEGATIVE (NEG)
[2021-09-08 17:00] VITALS: BP 117/76
== END 2021-09-08 17:39 | disposition home or self-care (01) ==
LOC: ER 14:35
DX: E10.43 Type 1 diabetes mellitus with diabetic autonomic (poly)neuropathy (principal); K31.84 Gastroparesis; E10.65 Type 1 diabetes mellitus with hyperglycemia; R11.2 Nausea with vomiting, unspecified; F19.10 Other psychoactive substance abuse, uncomplicated; F41.9 Anxiety disorder, unspecified; F32.9 Major depressive disorder, single episode, unspecified; K21.9 Gastro-esophageal reflux disease without esophagitis; F17.210 Nicotine dependence, cigarettes, uncomplicated; Z88.6 Allergy status to analgesic agent; Z88.8 Allergy status to other drugs, medicaments and biological substances
CPT/HCPCS: 36415; 80053; 80307; 81001; 81025; 82947; 83690; 85025; 87086; 96361; 96374; 99283; J1630; J7030

== ENCOUNTER 2021-09-16 00:15 | Emergency (ER) | payer MEDICAID ==
[~2021-09-16] VITALS: Ht 172.7 cm; Wt 59.7 kg
[~2021-09-16 00:15] MED LIST changes: +DICY20TA PO; -DICY20TA3 PO; -LISI-517 PO; +LISI5TAB15 PO
--- NOTE | 2021-09-16 00:44 | PHYS DOC ---
Past History Past Medical History: Anxiety, Constipation, Depression, Diabetes, GERD, Ovarian Cyst, Other Additional Past Medical Histor: gastroparesis, substance use disorder Past Surgical History: Other Additional Past Surgical Histo: ovarian cyst;eyex3;earx3;port;chest tubes; bx o f rt ankle Smoking: Cigarettes, Less than 1pk/day Alcohol Use: None Drug Use: Marijuana, Methamphetamine General Adult EDM: Chief Complaint: NAUSEA/VOMITING/DIARRHEA HPI: HPI: "... My cyclic vomiting .. again... ".. " I ve been vomiting constant the last 24 hrs... " Patient is a 31 year old female who presents with above hx and complaints of constant vomiting the last 24 hrs. patient well-known to the emergency department for her presentations and admissions for cyclic vomiting, and poorly controlled diabetes. Patient presents tonight with complaints of generalized abdomen pain with cyclic vomiting. Patient currently dry heaving on presentation to the emergency department. Patient has known history of poorly controlled diabetes, substance abuse, dehydration, DKA, depression, anxiety, chronic constipation, gas of esophageal reflux, ovarian cyst, gastroparesis, to bacco use, recreational marijuana and methamphetamine use. Patient denies any recent travel or specific ill contacts. Denies any history immunosuppression. Review of Systems: Review of Systems: Constitutional: Denies fever or chills Eyes: Denies change in visual acuity HENT: Denies nasal congestion or sore throat Respiratory: Complains of shortness of breath Cardiovascular: Complaints of epigastric chest pain GI: Complains of abdominal pain, nausea, vomiting,. Denies bloody stools or diarrhea : Denies dysuria Musculoskeletal: Denies back pain or joint pain Integument: Denies rash Neurologic: Denies headache, focal weakness or sensory changes Endocrine: Denies polyuria or polydipsia Lymphatic: Denies swollen glands Psychiatric: Complains of depression or anxiety Family History: Family History: Noncontributory to presentation. Current Medications: Current Meds: See nursing for home meds Allergies: Allergies: Allergies Coded Allergies Type Severity Reaction Last Updated Verified acetaminophen Allergy Intermediate HIVES 09/16/21 Yes adhesive tape Allergy Intermediate 09/16/21 Yes Physical Exam: PE: Constitutional: In acute distress, non-toxic appearance. [] HENT: Normocephalic, atraumatic, bilateral external ears normal, oropharynx dry, no oral exudates, nose normal. [] Eyes: PERRLA, EOMI, conjunctiva normal, no discharge. [] Neck: Normal range of motion, no tenderness, supple, no stridor. [] Cardiovascular: Tachycardia heart rate regular rhythm, no murmur [. Bedside] monitor shows a sinus rhythm with no marked morphology changes.. Lungs & Thorax: Bilateral breath sounds equal apex of scattered wheezes auscultation [] Abdomen: Bowel sounds decreased, soft, mild epigastric tenderness, no masses, no pulsatile masses. Distended. Skin: Warm, dry, no erythema, no rash. Poor turgor. Back: No tenderness, no CVA tenderness. [] Extremities: No tenderness, no cyanosis, no clubbing, ROM intact, no edema. [] Neurologic: Alert and oriented X 3, moves all extremities as requested, distal sensory intact, no focal deficits noted. [] Psychologic: Affect anxious, judgement normal, mood normal. [] Current Patient Data: Vital Signs: Vital Signs Date Time Temp Pulse Resp B/P (MAP) Pulse Ox O2 Delivery O2 Flow Rate FiO2 09/16/21 00:27 98.2 98 24 149/100 (116) 98 Room Air EKG: EKG: My interpretation EKG shows a sinus rhythm at 94 bpm. No acute morphology. Time of this EKG is 005 9 minutes. [] Radiology/Procedures: Radiology/Procedures: Patient refused x-rays at 0100 hrs. Heart Score: C/O Chest Pain: Yes HEART Score for Chest Pain: HEART Score for Chest Pain Response (Comments) Value History Slighlty/Non-Suspicious 0 ECG Normal 0 Age < 45 0 Risk Factors 1 or 2 Risk Factors 1 Total 1 Risk Factors: Risk Factors: DM, Current or recent (<one month) smoker, HTN, HLP, family history of CAD, obesity. Risk Scores: Score 0 - 3: 2.5% MACE over next 6 weeks - Discharge Home Score 4 - 6: 20.3% MACE over next 6 weeks - Admit for Clinical Observation Score 7 - 10: 72.7% MACE over next 6 weeks - Early Invasive Strategies Course & Med Decision Making: Course & Med Decision Making Pertinent Labs and Imaging studies reviewed. (See chart for details) Patient remain on clear fluid diet for the next 48 hours. Take diabetic meds as directed. Follow-up primary care. Return if any concerns. Pt. requesting discharge after fluids, zofran and compazine. Impression: 1. Cyclic vomiting 2. Diabetes 3. History of polysubstance abuse 4. History of noncompliance 5. History of gastroparesis 6. Constipation 7. Drug Screen + for Meth amphetamine 8. Hx. of Tobacco use [] Dragon Disclaimer: Dragon Disclaimer: This electronic medical record was generated, in whole or in part, using a voice recognition dictation system. Departure Departure: Referrals: PCP,NO (PCP) YELENA HENRY MD Sep 16, 2021 00:44
[2021-09-16] MEDS ORDERED: PROCHLORPERAZINE 10 MG/2 ML VIAL. IV ONE (01:00)
[2021-09-16] MEDS ORDERED: IV NORMAL SALINE 1,000ML 1,000 ML IV SCH (01:00)
[2021-09-16] MEDS ORDERED: ONDANSETRON PF 4 MG/2 ML VIAL. IVP ONE (01:00)
[2021-09-16] MEDS ORDERED: diphenhydrAMINE 50 MG/ML VIAL IVP ONE (01:00)
[2021-09-16 01:23] LABS: CALCIUM 9.4 mg/dL (8.5-10.1); CREATININE 0.8 mg/dL (0.6-1.0); GFR 84.2; POTASSIUM 3.9 mmol/L (3.5-5.1)
[2021-09-16 01:26] LABS: BASO # 0.1 x10^3/uL (0.0-0.2); BASO % 2 % (0-3); EOS # 0.2 x10^3/uL (0.0-0.7); EOS % 2 % (0-3); HEMATOCRIT 40.4 % (36.0-47.0); HEMOGLOBIN 13.5 g/dL (12.0-15.5); LYMPH # 1.7 x10^3/uL (1.0-4.8); LYMPH % 26 % (24-48); MEAN CORPUSCULAR HEMOGLOBIN 30 pg (25-35); MEAN CORPUSCULAR HGB CONC 33 g/dL (31-37); MEAN CORPUSCULAR VOLUME 90 fL (79-100); MONO # 0.5 x10^3/uL (0.0-1.1); MONO % 7 % (0-9); NEUT # 4.1 x10^3uL (1.8-7.7); NEUT % 63 % (31-73); PLATELET COUNT 320 x10^3/uL (140-400); RED BLOOD COUNT 4.47 x10^6/uL (3.50-5.40); RED CELL DISTRIBUTION WIDTH 13.9 % (11.5-14.5); WHITE BLOOD COUNT 6.6 x10^3/uL (4.0-11.0)
[2021-09-16 01:35] LABS: ALBUMIN 3.9 g/dL (3.4-5.0); DIRECT BILIRUBIN 0.2 mg/dL (0.0-0.2); MAGNESIUM 2.1 mg/dL (1.8-2.4); TOTAL BILIRUBIN 0.6 mg/dL (0.2-1.0); TOTAL PROTEIN 7.6 g/dL (6.4-8.2)
--- NOTE | 2021-09-16 01:50 | EKG ---
[address] [address] Test Date: 2021-09-16 Test Time: 00:59:42 Pat Name: CHALO RAYMUNDO Department: Room: Gender: F Kitchen Assistant: : 1990 Requested By: YELENA HENRY Order Number: [id number] Reading MD: Vasquez Moyer Measurements Intervals [place] Rate: 94 P: 60 ME: 140 QRS: 69 QRSD: 86 T: 56 QT: 332 QTc: 420 Interpretive Statements SINUS RHYTHM NORMAL ECG Electronically Signed On 09-17-2021 13:32:02 CDT by Vasquez Moyer
[2021-09-16] MEDS ORDERED: KETOROLAC 30 MG/ML VIAL. IVP ONE (02:15)
[2021-09-16 02:21] LABS: BARBITURATES NEG (NEG); BENZODIAZEPINES NEG (NEG); CANNABINOIDS NEG (NEG); COCAINE NEG (NEG); METHADONE NEG (NEG); OPIATES NEG (NEG); PHENCYCLIDINE NEG (NEG)
[2021-09-16 02:26] LABS: AMPHETAMINE/METHAMPHETAMINE POS (NEG)
[2021-09-16 02:31] LABS: BILIRUBIN,URINE NEG (NEG); CLARITY,URINE CLOUDY; COLOR,URINE YELLOW; GLUCOSE,URINE 100 mg/dL (NEG)
[2021-09-16 02:32] LABS: BACTERIA,URINE MOD /HPF (0-FEW); NITRITE,URINE NEG (NEG); SQUAMOUS EPITHELIAL CELL,UR OCC /LPF
[2021-09-16 04:27] LABS: INFLUENZA A PATIENT NEGATIVE (NEGATIVE); INFLUENZA B PATIENT NEGATIVE (NEGATIVE)
[2021-09-16 04:36] VITALS: BP 104/65
== END 2021-09-16 04:40 | disposition home or self-care (01) ==
LOC: ER 00:15
DX: K59.00 Constipation, unspecified (principal); E11.9 Type 2 diabetes mellitus without complications; F17.210 Nicotine dependence, cigarettes, uncomplicated; F15.10 Other stimulant abuse, uncomplicated; F12.10 Cannabis abuse, uncomplicated; K21.9 Gastro-esophageal reflux disease without esophagitis; Z88.6 Allergy status to analgesic agent; Z20.822 Contact with and (suspected) exposure to COVID-19
CPT/HCPCS: 80048; 80076; 80307; 81001; 81025; 82550; 82803; 82947; 83735; 83880; 84484; 85025; 87086; 87804; 93005; 96361; 96374; 96375; 99284; C9803; J0780; J1200; J1885; J2405; J7030; U0003; 87077

== ENCOUNTER 2021-09-19 16:52 | Emergency (ER) | payer MEDICAID ==
[~2021-09-19] VITALS: Ht 172.7 cm; Wt 59.7 kg
[2021-09-19 16:59] VITALS: BP 148/70
--- NOTE | 2021-09-19 17:14 | PHYS DOC ---
Past History Past Medical History: Anxiety, Constipation, Depression, Diabetes, GERD, Ovarian Cyst, Other Additional Past Medical Histor: gastroparesis, substance use disorder (IRLANDA EDWARDS WATER METER INSTALLER) Past Surgical History: Other Additional Past Surgical Histo: ovarian cyst;eyex3;earx3;port;chest tubes; bx of rt ankle (IRLANDA EDWARDS WATER METER INSTALLER) Smoking: Cigarettes, Less than 1pk/day Alcohol Use: None Drug Use: Marijuana, Methamphetamine (IRLANDA EDWARDS W[employer] METER INSTALLER) Adult General Chief Complaint Chief Complaint: NAUSEA/VOMITING/DIARRHEA HPI HPI Patient is a 31-year-old female patient with history of uncontrolled type 1 rika betes, gastroparesis, methamphetamine use, marijuana use, cyclic vomiting, who presents the ED today complaining of moderate lower abdominal pain specifically on the left with nausea and vomiting, symptoms began today. Patient denies any diarrhea. Denies any fever. Denies any urgency frequency or dysuria. Patient states the pain on the abdomen is worse when people push on her abdomen. (IRLANDA EDWARDS WATER METER INSTALLER) Review of Systems Review of Systems Constitutional: Denies fever or chills [] Eyes: Denies change in visual acuity, redness, or eye pain [] HENT: Denies nasal congestion or sore throat [] Respiratory: Denies cough or shortness of breath [] Cardiovascular: No additional information not addressed in HPI [] GI: Reports left lower quadrant abdominal pain, with nausea and vomiting, denies bloody stools or diarrhea [] : Denies dysuria or hematuria [] Musculoskeletal: Denies back pain or joint pain [] Integument: Denies rash or skin lesions [] Neurologic: Denies headache, focal weakness or sensory changes [] All other systems were reviewed and found to be within normal limits, except as documented in this note. (IRLANDA EDWARDS W[employer] METER INSTALLER) Current Medications Current Medications Current Medications Medications (Trade) Dose Ordered Sig/Chevy Start Time Stop Time Status Last Admin Dose Admin Diphenhydramine HCl (Benadryl) 25 mg 1X ONCE 09/19/21 17:15 09/19/21 17:16 UNV Haloperidol Lactate (Haldol) 5 mg 1X ONCE 09/19/21 17:15 09/19/21 17:16 UNV Prochlorperazine Edisylate (Compazine) 10 mg 1X ONCE 09/19/21 17:15 09/19/21 17:16 UNV Sodium Chloride 1,000 ml @ 1,000 mls/hr 1X ONCE 09/19/21 17:15 09/19/21 18:14 UNV (IRLANDA EDWARDS W[employer] INSTALLER) Allergies Allergies Allergies Coded Allergies Type Severity Reaction Last Updated Verified acetaminophen Allergy Intermediate HIVES 09/16/21 Yes adhesive tape Allergy Intermediate 09/16/21 Yes (IRLANDA EDWARDS W[employer] METER INSTALLER) Physical Exam Physical Exam Constitutional: Well developed, well nourished, no acute distress, non-toxic appearance. [] HENT: Normocephalic, atraumatic, bilateral external ears normal, oropharynx moist, no oral exudates, nose normal. [] Eyes: PERRLA, EOMI, conjunctiva normal, no discharge. [] Neck: Normal range of motion, no tenderness, supple, no stridor. [] Cardiovascular:Heart rate regular rhythm, no murmur [] Lungs & Thorax: Bilateral breath sounds clear to auscultation [] Abdomen: Laying in position, bowel sounds normal, soft,refused to let me palpate her abdomen, Skin: Warm, dry, no erythema, no rash. [] Back: No tenderness, no CVA tenderness. [] Extremities: No tenderness, no cyanosis, no clubbing, ROM intact, no edema. [] Neurologic: Alert and oriented X 3, normal motor function, normal sensory function, no focal deficits noted. [] Psychologic: Affect normal, judgement normal, mood normal. [] (IRLANDA EDWARDS W[employer] METER INSTALLER) Current Patient Data Vital Signs Vital Signs Date Time Temp Pulse Resp B/P (MAP) Pulse Ox O2 Delivery O2 Flow Rate FiO2 09/19/21 16:59 98.2 80 16 148/70 (96) 98 Lab Results Laboratory Tests Test 09/19/21 16:56 Glucose (Fingerstick) 194 mg/dL (70-99) H (IRLANDA EDWARDS W[employer] METER INSTALLER) EKG EKG [] (IRLANDA EDWARDS W[employer] METER INSTALLER) Radiology/Procedures Radiology/Procedures [] (IRLANDA EDWARDS W[employer] METER INSTALLER) Heart Score C/O Chest Pain: N/A Risk Factors: Risk Factors: DM, Current or recent (<one month) smoker, HTN, HLP, family history of CAD, obesity. Risk Scores: Risk Factors: DM, Current or recent (<one month) smoker, HTN, HLP, family history of CAD, obesity. (IRLANDA EDWARDS APRN) Course & Med Decision Making Course & Med Decision Making Pertinent Labs and Imaging studies reviewed. (See chart for details) This is a 31-year-old female patient well-known to the ED presenting today complaining of acute on chronic nausea, vomiting, abdominal pain. Patient was last seen in the ED 3 days ago for the same complaints and was worked up. Blood glucose 194 on arrival to the ED Patient is a very hard IV stick, 3 attempts were done through the mass with no success. She was given Compazine Benadryl and Haldol IM. 1824 on reassessment, patient is completely asleep. I had to wake her up. She states she feels better, she was discharged home (IRLANDA EDWARDS APRN) Dragon Disclaimer Dragon Disclaimer This electronic medical record was generated, in whole or in part, using a voice recognition dictation system. (IRLANDA EDWARDS APRN) Attending Co-Sign The patient was seen and interviewed as well as examined at the bedside. The chart was reviewed. The case was discussed. Agree with the plan of care. (ROXY SU DO) Departure Departure: Impression: Primary Impression: Chronic abdominal pain Additional Impression: Nausea and vomiting Disposition: HOME / SELF CARE / HOMELESS Condition: STABLE Referrals: PCP[facility]Y (PCP) JESSICA GODINEZ MD follow up in one week Patient Instructions: Abdominal Pain, Nausea and Vomiting, Acxa-se-Imsc Additional Instructions: You were evaluated in the emergency room for chronic abdominal pain with nausea and vomiting. Please follow-up with your own doctor in the course of this week Scripts Prochlorperazine Maleate (Compazine) 10 Mg Tablet 1 TAB PO Q6HRS for 7 Days, #28 TAB 0 Refills Prov: IRLANDA EDWARDS APRN 09/19/21 Problem Qualifiers Additional Impression: Nausea and vomiting Vomiting type: unspecified Vomiting Intractability: unspecified Qualified Codes: R11.2 - Nausea with vomiting, unspecified IRLANDA EDWARDS APRN Sep 19, 2021 17:14 ROXY SU DO Sep 21, 2021 13:05
[2021-09-19] MEDS ORDERED: PROCHLORPERAZINE 10 MG/2 ML VIAL. IV ONE (17:15)
[2021-09-19] MEDS ORDERED: diphenhydrAMINE 50 MG/ML VIAL IVP ONE (17:15)
[2021-09-19] MEDS ORDERED: HALOPERIDOL LACT 5 MG/ML VIAL. IVP ONE (17:15)
[2021-09-19] MEDS ORDERED: IV NORMAL SALINE 1,000ML 1,000 ML IV ONE (17:15)
[2021-09-19] MEDS ORDERED: PROCHLORPERAZINE 10 MG/2 ML VIAL. IM ONE (18:00)
[2021-09-19] MEDS ORDERED: HALOPERIDOL LACT 5 MG/ML VIAL. IM ONE (18:00)
[2021-09-19] MEDS ORDERED: diphenhydrAMINE 50 MG/ML VIAL IM ONE (18:00)
[2021-09-19] MEDS ORDERED: PROC10TA57 PO (18:29)
== END 2021-09-19 19:02 | disposition home or self-care (01) ==
LOC: ER 16:52
DX: G89.29 Other chronic pain (principal); R10.32 Left lower quadrant pain; R11.2 Nausea with vomiting, unspecified; E11.43 Type 2 diabetes mellitus with diabetic autonomic (poly)neuropathy; K31.84 Gastroparesis; K21.9 Gastro-esophageal reflux disease without esophagitis; F17.210 Nicotine dependence, cigarettes, uncomplicated; F12.10 Cannabis abuse, uncomplicated; F15.10 Other stimulant abuse, uncomplicated
CPT/HCPCS: 82947; 96372; 99284; J0780; J1200; J1630

== ENCOUNTER 2021-09-21 21:02 | Emergency (ER) | payer MEDICAID ==
[~2021-09-21] VITALS: Ht 172.7 cm; Wt 59.7 kg
[2021-09-21 21:26] LABS: BASO % 1 % (0-3); EOS # 0.1 x10^3/uL (0.0-0.7); EOS % 2 % (0-3); HEMATOCRIT 39.6 % (36.0-47.0); HEMOGLOBIN 13.3 g/dL (12.0-15.5); LYMPH # 1.9 x10^3/uL (1.0-4.8); LYMPH % 31 % (24-48); MEAN CORPUSCULAR HEMOGLOBIN 30 pg (25-35); MEAN CORPUSCULAR HGB CONC 34 g/dL (31-37); MEAN CORPUSCULAR VOLUME 90 fL (79-100); MONO # 0.5 x10^3/uL (0.0-1.1); MONO % 8 % (0-9); NEUT # 3.8 x10^3uL (1.8-7.7); NEUT % 60 % (31-73); PLATELET COUNT 326 x10^3/uL (140-400); RED CELL DISTRIBUTION WIDTH 13.6 % (11.5-14.5); WHITE BLOOD COUNT 6.3 x10^3/uL (4.0-11.0)
[2021-09-21] MEDS ORDERED: KETOROLAC 30 MG/ML VIAL. ONE (21:31)
[2021-09-21] MEDS ORDERED: HALOPERIDOL LACT 5 MG/ML VIAL. ONE (21:32)
[2021-09-21] MEDS ORDERED: PROCHLORPERAZINE 10 MG/2 ML VIAL. ONE (21:32)
[2021-09-21] MEDS: IV NORMAL SALINE 1,000ML 1,000 ML IV ONE (21:33)
[2021-09-21] MEDS: diphenhydrAMINE 50 MG/ML VIAL IVP ONE (21:34)
[2021-09-21 21:35] LABS: CALCIUM 9.5 mg/dL (8.5-10.1); CREATININE 0.8 mg/dL (0.6-1.0); GFR 84.2; POTASSIUM 4.1 mmol/L (3.5-5.1)
[2021-09-21] MEDS: PROCHLORPERAZINE 10 MG/2 ML VIAL. IV ONE (21:36)
[2021-09-21] MEDS: HALOPERIDOL LACT 5 MG/ML VIAL. IVP ONE (21:37)
[2021-09-21] MEDS: KETOROLAC 30 MG/ML VIAL. IVP ONE (21:38)
[2021-09-21 21:40] LABS: ALBUMIN 3.9 g/dL (3.4-5.0); ALBUMIN/GLOBULIN RATIO 1.1 (1.0-1.7); TOTAL BILIRUBIN 0.5 mg/dL (0.2-1.0); TOTAL PROTEIN 7.5 g/dL (6.4-8.2)
--- NOTE | 2021-09-21 22:16 | PHYS DOC ---
Past History Past Medical History: Anxiety, Constipation, Depression, Diabetes, GERD, Ovarian Cyst, Other Additional Past Medical Histor: gastroparesis, substance use disorder Past Surgical History: Other Additional Past Surgical Histo: ovarian cyst;eyex3;earx3;port;chest tubes; bx o f rt ankle Smoking: Cigarettes, Less than 1pk/day Alcohol Use: None Drug Use: Marijuana, Methamphetamine General Adult EDM: Chief Complaint: ABDOMINAL PAIN HPI: HPI: 31-year-old female returns to the emergency room. Patient is well-known to this hospital. She has been here 3 times in the last week with the same complaint of epigastric abdominal pain, and vomiting. See previous notes for more details. Today, she has the same complaint nothing is new. She denies any falls or trauma. She states that she took her medications at home and they are not working. Review of Systems: Review of Systems: Constitutional: Denies fever or chills Eyes: Denies change in visual acuity HENT: Denies nasal congestion or sore throat Respiratory: Denies cough or shortness of breath Cardiovascular: Denies chest pain or edema GI: Epigastric abdominal pain, nausea, vomiting. : Denies dysuria Musculoskeletal: Denies back pain or joint pain Integument: Denies rash Neurologic: Denies headache, focal weakness or sensory changes Endocrine: Denies polyuria or polydipsia Lymphatic: Denies swollen glands Psychiatric: Denies depression or anxiety Current Medications: Current Meds: Current Medications Medications (Trade) Dose Ordered Sig/Chevy Start Time Stop Time Status Last Admin Dose Admin Diphenhydramine HCl (Benadryl) 50 mg 1X ONCE 09/21/21 21:15 09/21/21 21:32 DC 09/21/21 21:34 50 MG Haloperidol Lactate (Haldol) 5 mg STK-MED ONCE 09/21/21 21:32 09/21/21 21:32 DC Ketorolac Tromethamine (Toradol 30mg Vial) 30 mg STK-MED ONCE 09/21/21 21:31 09/21/21 21:32 DC Prochlorperazine Edisylate (Compazine) 10 mg STK-MED ONCE 09/21/21 21:32 09/21/21 21:32 DC Sodium Chloride 1,000 ml @ 1,000 mls/hr 1X ONCE 09/21/21 21:15 09/21/21 22:14 09/21/21 21:33 1,000 MLS/HR Allergies: Allergies: Allergies Coded Allergies Type Severity Reaction Last Updated Verified acetaminophen Allergy Intermediate HIVES 09/16/21 Yes adhesive tape Allergy Intermediate 09/16/21 Yes Physical Exam: PE: Constitutional: Well developed, well nourished, no acute distress, non-toxic appearance. [] HENT: Normocephalic, atraumatic, bilateral external ears normal, oropharynx moist, no oral exudates, nose normal. [] Eyes: PERRLA, EOMI, conjunctiva normal, no discharge. [] Neck: Normal range of motion, no tenderness, supple, no stridor. [] Cardiovascular: Heart rate regular rhythm, no murmur [] Lungs & Thorax: Bilateral breath sounds clear to auscultation [] Abdomen: Bowel sounds normal, soft, epigastric tenderness, no masses, no pulsatile masses. [] Skin: Warm, dry, no erythema, no rash. [] Back: No tenderness, no CVA tenderness. [] Extremities: No tenderness, no cyanosis, no clubbing, ROM intact, no edema. [] Neurologic: Alert and oriented X 3, normal motor function, normal sensory function, no focal deficits noted. [] Psychologic: Affect normal, judgement normal, mood dramatic. [] Current Patient Data: Labs: Laboratory Tests Test 09/21/21 21:08 09/21/21 21:10 White Blood Count 6.3 x10^3/uL (4.0-11.0) Red Blood Count 4.40 x10^6/uL (3.50-5.40) Hemoglobin 13.3 g/dL (12.0-15.5) Hematocrit 39.6 % (36.0-47.0) Mean Corpuscular Volume 90 fL (79-100) Mean Corpuscular Hemoglobin 30 pg (25-35) Mean Corpuscular Hemoglobin Concent 34 g/dL (31-37) Red Cell Distribution Width 13.6 % (11.5-14.5) Platelet Count 326 x10^3/uL (140-400) Neutrophils (%) (Auto) 60 % (31-73) Lymphocytes (%) (Auto) 31 % (24-48) Monocytes (%) (Auto) 8 % (0-9) Eosinophils (%) (Auto) 2 % (0-3) Basophils (%) (Auto) 1 % (0-3) Neutrophils # (Auto) 3.8 x10^3uL (1.8-7.7) Lymphocytes # (Auto) 1.9 x10^3/uL (1.0-4.8) Monocytes # (Auto) 0.5 x10^3/uL (0.0-1.1) Eosinophils # (Auto) 0.1 x10^3/uL (0.0-0.7) Basophils # (Auto) 0.0 x10^3/uL (0.0-0.2) Sodium Level 135 mmol/L (136-145) L Potassium Level 4.1 mmol/L (3.5-5.1) Chloride Level 99 mmol/L (98-107) Carbon Dioxide Level 24 mmol/L (21-32) Anion Gap 12 (6-14) Blood Urea Nitrogen 22 mg/dL (7-20) H Creatinine 0.8 mg/dL (0.6-1.0) Estimated GFR (Cockcroft-Gault) 84.2 BUN/Creatinine Ratio 28 (6-20) H Glucose Level 195 mg/dL (70-99) H Calcium Level 9.5 mg/dL (8.5-10.1) Total Bilirubin 0.5 mg/dL (0.2-1.0) Aspartate Amino Transferase (AST) 31 U/L (15-37) Alanine Aminotransferase (ALT) 21 U/L (14-59) Alkaline Phosphatase 70 U/L (46-116) Total Protein 7.5 g/dL (6.4-8.2) Albumin 3.9 g/dL (3.4-5.0) Albumin/Globulin Ratio 1.1 (1.0-1.7) Glucose (Fingerstick) 201 mg/dL (70-99) H Vital Signs: Vital Signs Date Time Temp Pulse Resp B/P (MAP) Pulse Ox O2 Delivery O2 Flow Rate FiO2 09/21/21 21:05 98.0 104 16 161/97 (118) 100 Room Air EKG: EKG: [] Radiology/Procedures: Radiology/Procedures: [] Heart Score: C/O Chest Pain: N/A Risk Factors: Risk Factors: DM, Current or recent (<one month) smoker, HTN, HLP, family history of CAD, obesity. Risk Scores: Score 0 - 3: 2.5% MACE over next 6 weeks - Discharge Home Score 4 - 6: 20.3% MACE over next 6 weeks - Admit for Clinical Observation Score 7 - 10: 72.7% MACE over next 6 weeks - Early Invasive Strategies Course & Med Decision Making: Course & Med Decision Making Pertinent Labs and Imaging studies reviewed. (See chart for details) For the patient discomfort I have ordered 30 mg of Toradol, a liter normal saline, 50 mg of Benadryl, 5 mg of Haldol, 10 mg of Compazine. These medications have worked for the patient in the past. Her labs are significant for an elevated blood sugar with a normal anion gap. Patient does not meet admission criteria. She is stable for discharge at this time. [] Annelise Disclaimer: Dragevelio Disclaimer: This electronic medical record was generated, in whole or in part, using a voice recognition dictation system. Departure Departure: Impression: Primary Impression: Abdominal pain Additional Impression: Hyperglycemia Disposition: 01 HOME / SELF CARE / HOMELESS Condition: STABLE Referrals: PCP[facility]Y (PCP) Patient Instructions: Nausea and Vomiting, [id number] ROXY SU DO Sep 21, 2021 22:16
[2021-09-21] MEDS: ONDANSETRON PF 4 MG/2 ML VIAL. IVP ONE (22:59)
[2021-09-21 23:15] VITALS: BP 127/87
== END 2021-09-21 23:15 | disposition home or self-care (01) ==
LOC: ER 21:02
DX: E11.65 Type 2 diabetes mellitus with hyperglycemia (principal); K59.00 Constipation, unspecified; K21.9 Gastro-esophageal reflux disease without esophagitis; F17.210 Nicotine dependence, cigarettes, uncomplicated; Z88.6 Allergy status to analgesic agent
CPT/HCPCS: 36415; 80053; 82947; 85025; 96361; 96374; 96375; 99284; J0780; J1200; J1630; J1885; J2405; J7030

== ENCOUNTER 2021-09-25 23:46 | Emergency (ER) | payer MEDICAID ==
[~2021-09-25] VITALS: Ht 172.7 cm; Wt 60.0 kg
--- NOTE | 2021-09-25 23:48 | PHYS DOC ---
Past History Past Medical History: Anxiety, Constipation, Depression, Diabetes, GERD, Ovarian Cyst, Other Additional Past Medical Histor: gastroparesis, substance use disorder Past Surgical History: Other Additional Past Surgical Histo: ovarian cyst;eyex3;earx3;port;chest tubes; bx o f rt ankle Smoking: Cigarettes, Less than 1pk/day Alcohol Use: None Drug Use: Marijuana, Methamphetamine General Adult HPI: HPI: "... I am vomiting again.. all night... " Patient is a 31 year old female who presents with above hx of cyclic vomiting. Patient is well-known to ED staff for frequent presentations and admits for cyclic vomiting. Patient has long history of poorly controlled diabetes. Patient complains of generalized abdomen pain tonight with her cyclic vomiting. Patient currently dry heaving on presentation to the emergency department. Patient has a past medical history of substance abuse dehydration DKA, depression, anxiety, chronic constipation, GERD, ovarian cyst, gastroparesis, tobacco use, recreational marijuana and methamphetamine use. Patient denies any recent travel. Patient denies any trauma. Patient denies any specific ill contacts. Patient denies any history of significant immunosuppression outside of her diabetes. Review of Systems: Review of Systems: Constitutional: Denies fever or chills Eyes: Denies change in visual acuity HENT: Denies nasal congestion or sore throat Respiratory: Denies cough or shortness of breath Cardiovascular: Denies chest pain or edema GI: Complains of generalized abdominal pain, nausea, vomiting,. Bloody stools or diarrhea : Denies dysuria Musculoskeletal: Denies back pain or joint pain Integument: Denies rash Neurologic: Denies headache, focal weakness or sensory changes Endocrine: Denies polyuria or polydipsia Lymphatic: Denies swollen glands Psychiatric: Denies depression or anxiety Allergies: Allergies: Allergies Coded Allergies Type Severity Reaction Last Updated Verified acetaminophen Allergy Intermediate HIVES 09/16/21 Yes adhesive tape Allergy Intermediate 09/16/21 Yes Physical Exam: PE: Constitutional: Well developed, well nourished, no acute distress, non-toxic appearance. [] HENT: Normocephalic, atraumatic, bilateral external ears normal, oropharynx joe st, no oral exudates, nose normal. [] Eyes: PERRLA, EOMI, conjunctiva normal, no discharge. [] Neck: Normal range of motion, no tenderness, supple, no stridor. [] Cardiovascular:Heart rate regular rhythm, no murmur [] Lungs & Thorax: Bilateral breath sounds clear to auscultation [] Abdomen: Bowel sounds normal, soft, no tenderness, no masses, no pulsatile masses. [] Skin: Warm, dry, no erythema, no rash. [] Back: No tenderness, no CVA tenderness. [] Extremities: No tenderness, no cyanosis, no clubbing, ROM intact, no edema. [] Neurologic: Alert and oriented X 3, normal motor function, normal sensory function, no focal deficits noted. [] Psychologic: Affect normal, judgement normal, mood normal. [] EKG: EKG: Pt. refusing EKG[] Radiology/Procedures: Radiology/Procedures: Pt. refusing Xrays[] Heart Score: C/O Chest Pain: N/A HEART Score for Chest Pain: HEART Score for Chest Pain Response (Comments) Value History Slighlty/Non-Suspicious 0 ECG Normal 0 Age < 45 0 Risk Factors 1 or 2 Risk Factors 1 Troponin < Normal Limit 0 Total 1 Risk Factors: Risk Factors: DM, Current or recent (<one month) smoker, HTN, HLP, family his tory of CAD, obesity. Risk Scores: Score 0 - 3: 2.5% MACE over next 6 weeks - Discharge Home Score 4 - 6: 20.3% MACE over next 6 weeks - Admit for Clinical Observation Score 7 - 10: 72.7% MACE over next 6 weeks - Early Invasive Strategies Course & Med Decision Making: Course & Med Decision Making Pertinent Labs and Imaging studies reviewed. (See chart for details) Pt. continues to refuse EKG and Acute Abdomen films. 02:45 ( New time)_ Patient has been sleeping for the past couple hours 0530 rs. Pt. ambulatory with out problems at time discharge - 05:45 hrs. ( New time) Pt. encourage to avoid drug use, clear fluid diet. Follow up with primary. Practice COVID precautions. Impression: 1. Cyclic Vomiting 2. Diabetes glucose 236 3. History of polysubstance abuse 4. History of noncompliance 5. History of gastroparesis 6. Constipation 7. Drug screen= + for methamphetamine tonight 8. Tobacco use [] Dragon Disclaimer: Dragon Disclaimer: This electronic medical record was generated, in whole or in part, using a voice recognition dictation system. Departure Departure: Referrals: PCP,NO (PCP) Annelise Disclaimer This chart was dictated in whole or in part using Voice Recognition software in a busy, high-work load, and often noisy Emergency Department environment. It may contain unintended and wholly unrecognized errors or omissions. YELENA HENRY MD Sep 25, 2021 23:48
[2021-09-26] MEDS ORDERED: PROCHLORPERAZINE 10 MG/2 ML VIAL. IM ONE (00:30)
[2021-09-26] MEDS ORDERED: IV NORMAL SALINE 1,000ML 1,000 ML IV SCH (00:30)
[2021-09-26] MEDS ORDERED: FAMOTIDINE 20 MG/2 ML VIAL IVP ONE (00:30)
[2021-09-26] MEDS ORDERED: IV RINGERS SOLUTION,LACTATED 1,000 ML IV SCH (00:30)
[2021-09-26] MEDS ORDERED: ONDANSETRON PF 4 MG/2 ML VIAL. IVP ONE (00:30)
[2021-09-26] MEDS ORDERED: KETOROLAC 30 MG/ML VIAL. IVP ONE (00:30)
[2021-09-26] MEDS ORDERED: diphenhydrAMINE 50 MG/ML VIAL IM ONE (00:30)
[2021-09-26 01:09] LABS: ALBUMIN 3.1 g/dL (3.4-5.0); CALCIUM 7.9 mg/dL (8.5-10.1); CREATININE 0.7 mg/dL (0.6-1.0); DIRECT BILIRUBIN 0.2 mg/dL (0.0-0.2); GFR 98.3; TOTAL BILIRUBIN 0.6 mg/dL (0.2-1.0); TOTAL PROTEIN 5.7 g/dL (6.4-8.2)
[2021-09-26 01:52] LABS: BASO # 0.1 x10^3/uL (0.0-0.2); BASO % 1 % (0-3); EOS # 0.1 x10^3/uL (0.0-0.7); EOS % 2 % (0-3); HEMATOCRIT 36.9 % (36.0-47.0); HEMOGLOBIN 12.4 g/dL (12.0-15.5); LYMPH # 1.6 x10^3/uL (1.0-4.8); LYMPH % 27 % (24-48); MEAN CORPUSCULAR HEMOGLOBIN 30 pg (25-35); MEAN CORPUSCULAR HGB CONC 34 g/dL (31-37); MEAN CORPUSCULAR VOLUME 90 fL (79-100); MONO # 0.5 x10^3/uL (0.0-1.1); MONO % 7 % (0-9); NEUT # 3.8 x10^3uL (1.8-7.7); NEUT % 63 % (31-73); PLATELET COUNT 283 x10^3/uL (140-400); RED BLOOD COUNT 4.11 x10^6/uL (3.50-5.40); RED CELL DISTRIBUTION WIDTH 13.4 % (11.5-14.5)
[2021-09-26] MEDS ORDERED: IV RINGERS SOLUTION,LACTATED 1,000 ML IV ONE (02:45)
[2021-09-26 03:12] LABS: BILIRUBIN,URINE SMALL (NEG); CLARITY,URINE CLOUDY; COLOR,URINE YELLOW; GLUCOSE,URINE 500 mg/dL (NEG)
[2021-09-26 03:13] LABS: BACTERIA,URINE MOD /HPF (0-FEW); NITRITE,URINE NEG (NEG); SQUAMOUS EPITHELIAL CELL,UR FEW /LPF; WBC,URINE TNTC /HPF (0-4)
[2021-09-26 03:30] LABS: AMPHETAMINE/METHAMPHETAMINE POS (NEG); BARBITURATES NEG (NEG); BENZODIAZEPINES NEG (NEG); CANNABINOIDS NEG (NEG); COCAINE NEG (NEG); METHADONE NEG (NEG); OPIATES NEG (NEG); PHENCYCLIDINE NEG (NEG)
[2021-09-26] MEDS ORDERED: MAGNESIUM HYDROXIDE 2,400 MG/30 ML ORAL.SUSP. PO ONE (04:00)
[2021-09-26] MEDS ORDERED: traMADol 50 MG TABLET PO ONE (04:00)
[2021-09-26 05:32] VITALS: BP 124/83
== END 2021-09-26 05:41 | disposition home or self-care (01) ==
LOC: ER 23:46
DX: R11.15 Cyclical vomiting syndrome unrelated to migraine (principal); E11.9 Type 2 diabetes mellitus without complications; K59.00 Constipation, unspecified; F19.10 Other psychoactive substance abuse, uncomplicated; F15.10 Other stimulant abuse, uncomplicated; K21.9 Gastro-esophageal reflux disease without esophagitis; F12.10 Cannabis abuse, uncomplicated; F17.210 Nicotine dependence, cigarettes, uncomplicated; Z88.6 Allergy status to analgesic agent; Z88.8 Allergy status to other drugs, medicaments and biological substances
CPT/HCPCS: 36415; 80048; 80076; 80307; 81001; 82550; 82947; 83690; 84484; 85025; 87086; 93005; 96361; 96372; 96374; 96375; 99285; J0780; J1200; J1885; J2405; J3490; J7030; J7120

== ENCOUNTER 2021-09-28 18:23 | Emergency (ER) | payer MEDICAID ==
[~2021-09-28] VITALS: Ht 172.7 cm; Wt 60.0 kg
[2021-09-28] MEDS ORDERED: KETOROLAC 60 MG/2 ML VIAL. IM ONE (19:00)
[2021-09-28] MEDS ORDERED: IV NORMAL SALINE 1,000ML 1,000 ML IV ONE (19:00)
[2021-09-28 19:42] LABS: BASO # 0.1 x10^3/uL (0.0-0.2); BASO % 1 % (0-3); EOS # 0.1 x10^3/uL (0.0-0.7); EOS % 2 % (0-3); HEMATOCRIT 39.6 % (36.0-47.0); HEMOGLOBIN 13.6 g/dL (12.0-15.5); LYMPH % 25 % (24-48); MEAN CORPUSCULAR HEMOGLOBIN 30 pg (25-35); MEAN CORPUSCULAR HGB CONC 34 g/dL (31-37); MEAN CORPUSCULAR VOLUME 88 fL (79-100); MONO # 0.6 x10^3/uL (0.0-1.1); MONO % 7 % (0-9); NEUT # 5.1 x10^3uL (1.8-7.7); NEUT % 65 % (31-73); PLATELET COUNT 337 x10^3/uL (140-400); RED BLOOD COUNT 4.49 x10^6/uL (3.50-5.40); RED CELL DISTRIBUTION WIDTH 13.3 % (11.5-14.5); WHITE BLOOD COUNT 7.9 x10^3/uL (4.0-11.0)
[2021-09-28 19:53] LABS: CALCIUM 9.2 mg/dL (8.5-10.1); CREATININE 0.7 mg/dL (0.6-1.0); GFR 98.3; POTASSIUM 3.1 mmol/L (3.5-5.1)
[2021-09-28] MEDS ORDERED: DEXTROSE 50% 25 GM / 50ML DISP.SYRIN. IV ONE (20:00)
[2021-09-28 20:30] VITALS: BP 148/101
--- NOTE | 2021-09-28 20:35 | RAD ---
Exam: CT of abdomen and pelvis without contrast INDICATION: Left lower quadrant pain TECHNIQUE: Sequential axial images through the abdomen and obtained without IV contrast. Sagittal and coronal reformatted images were reconstructed from the axial data and reviewed. Exposure: One or more of the following in the visualized dose reduction techniques were utilized for this examination: 1. Automated exposure control 2. Adjustment of the MA and/or KV according to patient size 3. Use of iterative of reconstructive technique Comparisons: 03/29/2021 FINDINGS: Heart size is normal. No pericardial effusion. Visualized lung bases are clear. No pleural effusion. Evaluation solid organs is limited secondary to noncontrast technique. Liver, spleen, pancreas, gallbladder and adrenals are unremarkable. No perinephric inflammation or hydronephrosis. No renal or ureteral calculi. No evidence for obstruct rowan uropathy. Bladder is partially distended and not well evaluated. Uterus is not enlarged. There is a 2.9 cm cyst ic lesion at the left adnexa. Large and stool noted in colon. Appendix is normal. No free intra-abdominal air or fluid. No obstruct ion. Abdominal aorta has a normal course and caliber. No enlarged abdominal lymph nodes are identified. No suspicious osseous lesions or acute fractures. IMPRESSION: Cystic lesion at the left adnexa which measures 2.9 cm favored represent cyst in the left ovary howev er incompletely characterized on CT. Electronically signed by: Ben Cabral MD (09/28/2021 8:33 PM) [facility] [place]
--- NOTE | 2021-09-28 21:20 | PHYS DOC ---
Past History Past Medical History: Anxiety, Constipation, Depression, Diabetes, GERD, Ovarian Cyst, Other Additional Past Medical Histor: gastroparesis, substance use disorder Past Surgical History: Other Additional Past Surgical Histo: ovarian cyst;eyex3;earx3;port;chest tubes; bx o f rt ankle Smoking: Cigarettes, Less than 1pk/day Alcohol Use: None Drug Use: Marijuana, Methamphetamine Adult General Chief Complaint Chief Complaint: NAUSEA/VOMITING/DIARRHEA HPI HPI Patient is a 31-year-old female well-known to our facility presenting for abdominal pain. This is a chronic issue. She was last seen at our facility 48 hours for same complaints. She had extensive work-up that was grossly nonconcerning but did have blood in her urine at that time, denies being on her period. She states she has had ongoing cyclic nausea and vomiting that has been intractable to home medications that include Zofran, Phenergan, and Reglan. She is requesting pain control Review of Systems Review of Systems Fourteen body systems of review of systems have been reviewed. See HPI for pertinent positives and negative responses, other bustos all other systems are negative, non-pertinent or non-contributory Current Medications Current Medications Current Medications Medications (Trade) Dose Ordered Sig/Chevy Start Time Stop Time Status Last Admin Dose Admin Dextrose (Dextrose 50%-Water Syringe) 25 gm 1X ONCE 09/28/21 20:00 09/28/21 20:06 DC 09/28/21 20:13 25 GM Ketorolac Tromethamine (Toradol Im) 30 mg 1X ONCE 09/28/21 19:00 09/28/21 19:17 DC 09/28/21 20:19 30 MG Potassium Chloride (Klor-Con) 40 meq 1X ONCE 09/28/21 21:30 09/28/21 21:31 Sodium Chloride 1,000 ml @ 1,000 mls/hr 1X ONCE 09/28/21 19:00 09/28/21 19:59 DC 09/28/21 20:18 1,000 MLS/HR Allergies Allergies Allergies Coded Allergies Type Severity Reaction Last Updated Verified acetaminophen Allergy Intermediate HIVES 09/16/21 Yes adhesive tape Allergy Intermediate 09/16/21 Yes Physical Exam Physical Exam Constitutional: Well developed, well nourished, appears uncomfortable but is nontoxic in overall appearance HENT: Normocephalic, atraumatic, bilateral external ears normal, oropharynx moist, no oral exudates, nose normal. Poor dentition Eyes: PERRLA, EOMI, conjunctiva normal, no discharge. Neck: Normal range of motion, no tenderness, supple, no stridor. Cardiovascular: Heart rate regular, sinus rhythm, no murmurs rubs or gallops Lungs & Thorax: Bilateral breath sounds clear to auscultation Abdomen: Bowel sounds normal, soft, generalized abdominal tenderness, voluntary guarding without rebound no masses, no pulsatile masses. Nonsurgical abdomen, no peritoneal signs Skin: Warm, dry, no erythema, no rash. Back: No tenderness, no CVA tenderness. Extremities: No tenderness, no cyanosis, no clubbing, ROM intact, no edema. Neurologic: Alert and oriented X 3, grossly normal motor & sensory function, no focal deficits noted. Psychologic: Tearful affect, anxious mood Current Patient Data Vital Signs Vital Signs Date Time Temp Pulse Resp B/P (MAP) Pulse Ox O2 Delivery O2 Flow Rate FiO2 09/28/21 18:23 108 26 159/111 (127) 99 Room Air 09/28/21 18:23 98.1 Lab Results Laboratory Tests Test 09/28/21 18:31 09/28/21 19:05 09/28/21 19:53 Glucose (Fingerstick) 181 mg/dL (70-99) H 78 mg/dL (70-99) White Blood Count 7.9 x10^3/uL (4.0-11.0) Red Blood Count 4.49 x10^6/uL (3.50-5.40) Hemoglobin 13.6 g/dL (12.0-15.5) Hematocrit 39.6 % (36.0-47.0) Mean Corpuscular Volume 88 fL (79-100) Mean Corpuscular Hemoglobin 30 pg (25-35) Mean Corpuscular Hemoglobin Concent 34 g/dL (31-37) Red Cell Distribution Width 13.3 % (11.5-14.5) Platelet Count 337 x10^3/uL (140-400) Neutrophils (%) (Auto) 65 % (31-73) Lymphocytes (%) (Auto) 25 % (24-48) Monocytes (%) (Auto) 7 % (0-9) Eosinophils (%) (Auto) 2 % (0-3) Basophils (%) (Auto) 1 % (0-3) Neutrophils # (Auto) 5.1 x10^3uL (1.8-7.7) Lymphocytes # (Auto) 2.0 x10^3/uL (1.0-4.8) Monocytes # (Auto) 0.6 x10^3/uL (0.0-1.1) Eosinophils # (Auto) 0.1 x10^3/uL (0.0-0.7) Basophils # (Auto) 0.1 x10^3/uL (0.0-0.2) Sodium Level 136 mmol/L (136-145) Potassium Level 3.1 mmol/L (3.5-5.1) L Chloride Level 100 mmol/L (98-107) Carbon Dioxide Level 28 mmol/L (21-32) Anion Gap 8 (6-14) Blood Urea Nitrogen 15 mg/dL (7-20) Creatinine 0.7 mg/dL (0.6-1.0) Estimated GFR (Cockcroft-Gault) 98.3 Glucose Level 131 mg/dL (70-99) H Calcium Level 9.2 mg/dL (8.5-10.1) EKG EKG [] Radiology/Procedures Radiology/Procedures Exam: CT of abdomen and pelvis without contrast INDICATION: Left lower quadrant pain TECHNIQUE: Sequential axial images through the abdomen and obtained without IV contrast. Sagittal and coronal reformatted images were reconstructed from the axial data and reviewed. Exposure: One or more of the following in the visualized dose reduction techniques were utilized for this examination: 1. Automated exposure control 2. Adjustment of the MA and/or KV according to patient size 3. Use of iterative of reconstructive technique Comparisons: 03/29/2021 FINDINGS: Heart size is normal. No pericardial effusion. Visualized lung bases are clear. No pleural effusion. Evaluation solid organs is limited secondary to noncontrast technique. Liver, spleen, pancreas, gallbladder and adrenals are unremarkable. No perinephric inflammation or hydronephrosis. No renal or ureteral calculi. No evidence for obstructive uropathy. Bladder is partially distended and not well evaluated. Uterus is not enlarged. There is a 2.9 cm cystic lesion at the left adnexa. Large and stool noted in colon. Appendix is normal. No free intra-abdominal air or fluid. No obstruction. Abdominal aorta has a normal course and caliber. No enlarged abdominal lymph nodes are identified. No suspicious osseous lesions or acute fractures. IMPRESSION: Cystic lesion at the left adnexa which measures 2.9 cm favored represent cyst in the left ovary however incompletely characterized on CT. Electronically signed by: Ben Cabral MD (09/28/2021 8:33 PM) [facility] Heart Score C/O Chest Pain: No HEART Score for Chest Pain: HEART Score for Chest Pain Response (Comments) Value History Slighlty/Non-Suspicious 0 ECG Normal 0 Age < 45 0 Risk Factors 1 or 2 Risk Factors 1 Total 1 Risk Factors: Risk Factors: DM, Current or recent (<one month) smoker, HTN, HLP, family history of CAD, obesity. Risk Scores: Risk Factors: DM, Current or recent (<one month) smoker, HTN, HLP, family history of CAD, obesity. Course & Med Decision Making Course & Med Decision Making ABCs unremarkable. I disclosed entirety of ER findings and discussed most likely diagnosis of chronic abdominal pain. Other diagnoses were discussed with patient such as DKA, left adnexal cyst pathology, and other potentially intra- abdominal abnormalities but all deemed less likely causes of patient's presentation. Patient's left adnexal cyst chronic. Her pain is the same and unchanged since presentation 48 hours prior. This is a chronic issue for her. I am concerned she is pain seeking as numerous times on evaluation she is been resting comfortably asleep. Plan of care discussed at length with need for close outpatient follow-up to review today's ER visit stressed. Strict return precautions were also discussed at length with good understanding verbalized by patient. Patient voiced understanding and agreement with the plan. She is unhappy and continuing to request narcotic pain medication. States if we do not give her what she wants she will pull out her IV and leave. Dragon Disclaimer Dragon Disclaimer This electronic medical record was generated, in whole or in part, using a voice recognition dictation system. Departure Departure: Impression: Primary Impression: Chronic abdominal pain Additional Impression: Type I diabetes mellitus Disposition: HOME / SELF CARE / HOMELESS Condition: STABLE Referrals: PCP,BAY (PCP) Additional Instructions: You have been evaluated in the Emergency Department today for abdominal pain. Your evaluation was not suggestive of any emergent condition requiring medical intervention at this time. However, some abdominal problems make take more time to appear. Therefore, it is important for you to watch for any new symptoms or worsening of your current condition. I disclosed finding of low potassium level that was treated today. Insulin is likely causing this to draw but it is not anything we need to start a daily supplementation for. Please follow-up with PCP for lab recheck You also have known left adnexal cyst that measures 2.9 cm. Nonemergent outpatient [employer] follow-up and pelvic ultrasound is advised Please continue tight glycemic control and call your primary care physician first thing in the morning to review ED visit today Return to the Emergency Department if you experience worsening pain, persistent fevers greater than 100.4, recurrent vomiting, blood in vomit, blood in stool, dark tarry stool, chest pain, difficulty breathing, or any other concerning symptoms. Problem Qualifiers BRENDA BAKER DO Sep 28, 2021 21:20
[2021-09-28] MEDS ORDERED: ONDANSETRON PF 4 MG/2 ML VIAL. IVP ONE ×2 (21:30)
[2021-09-28] MEDS ORDERED: POTASSIUM CHLORIDE 20 MEQ TABLET.ER. PO ONE (21:30)
== END 2021-09-28 21:25 | disposition home or self-care (01) ==
LOC: ER 18:23
DX: G89.29 Other chronic pain (principal); R10.84 Generalized abdominal pain; E10.9 Type 1 diabetes mellitus without complications; R11.2 Nausea with vomiting, unspecified; F41.9 Anxiety disorder, unspecified; F32.9 Major depressive disorder, single episode, unspecified; K21.9 Gastro-esophageal reflux disease without esophagitis; F17.210 Nicotine dependence, cigarettes, uncomplicated; Z88.8 Allergy status to other drugs, medicaments and biological substances; Z88.6 Allergy status to analgesic agent
CPT/HCPCS: 36415; 74176; 80048; 82947; 85025; 96361; 96372; 96374; 99285; J1885; J7030; 99284-25

== ENCOUNTER 2021-10-04 11:58 | Emergency (ER) | payer MEDICAID ==
[~2021-10-04] VITALS: Ht 172.7 cm; Wt 60.0 kg
[2021-10-04] MEDS ORDERED: HALOPERIDOL LACT 5 MG/ML VIAL. IVP ONE (12:15)
[2021-10-04] MEDS ORDERED: KETOROLAC 30 MG/ML VIAL. IVP ONE (12:15)
[2021-10-04] MEDS ORDERED: IV NORMAL SALINE 1,000ML 1,000 ML IV ONE (12:15)
[2021-10-04] MEDS ORDERED: diphenhydrAMINE 50 MG/ML VIAL IVP ONE (12:15)
[2021-10-04] MEDS ORDERED: ONDANSETRON PF 4 MG/2 ML VIAL. IVP ONE (12:15)
[2021-10-04 12:50] LABS: BASO # 0.1 x10^3/uL (0.0-0.2); BASO % 1 % (0-3); EOS # 0.2 x10^3/uL (0.0-0.7); EOS % 2 % (0-3); HEMATOCRIT 39.8 % (36.0-47.0); HEMOGLOBIN 13.3 g/dL (12.0-15.5); LYMPH % 29 % (24-48); MEAN CORPUSCULAR HEMOGLOBIN 30 pg (25-35); MEAN CORPUSCULAR HGB CONC 34 g/dL (31-37); MEAN CORPUSCULAR VOLUME 89 fL (79-100); MONO # 0.6 x10^3/uL (0.0-1.1); MONO % 8 % (0-9); NEUT # 4.1 x10^3uL (1.8-7.7); NEUT % 60 % (31-73); PLATELET COUNT 318 x10^3/uL (140-400); RED BLOOD COUNT 4.46 x10^6/uL (3.50-5.40); RED CELL DISTRIBUTION WIDTH 13.5 % (11.5-14.5); WHITE BLOOD COUNT 6.9 x10^3/uL (4.0-11.0)
[2021-10-04 13:00] LABS: CALCIUM 8.9 mg/dL (8.5-10.1); CREATININE 0.6 mg/dL (0.6-1.0); GFR 117.4; POTASSIUM 3.3 mmol/L (3.5-5.1)
[2021-10-04 13:06] LABS: ALBUMIN 3.6 g/dL (3.4-5.0); TOTAL BILIRUBIN 0.3 mg/dL (0.2-1.0); TOTAL PROTEIN 7.1 g/dL (6.4-8.2)
[2021-10-04 15:16] VITALS: BP 130/91
--- NOTE | 2021-10-04 15:35 | PHYS DOC ---
Past History Past Medical History: Anxiety, Constipation, Depression, Diabetes, GERD, Ovarian Cyst, Other Additional Past Medical Histor: gastroparesis, substance use disorder (VANESSA LE APRN) Past Surgical History: Other Additional Past Surgical Histo: ovarian cyst;eyex3;earx3;port;chest tubes; bx of rt ankle (VANESSA LE APRN) Smoking: Cigarettes, Less than 1pk/day Alcohol Use: None Drug Use: Marijuana, Methamphetamine (VANESSA LE APRN) Adult General Chief Complaint Chief Complaint: ABDOMINAL PAIN HPI HPI Patient is a 31-year-old female well-known to our facility presenting for abdominal pain with nausea and vomiting. This has been going on for many years, she was last seen at our facility 6 days ago with similar symptoms. She has had several extensive work-ups that have been grossly nonconcerning. Patient reports she has had ongoing nausea and vomiting without relief of her home medications of Zofran, Phenergan, and Reglan. Patient is requesting pain medication. Patient denies other physical complaints or physical concerns. Patient reports her last blood sugar taken at home just prior to arrival was 300. (VANESSA LE APRN) Review of Systems Review of Systems 14 body systems of review of systems have been reviewed. See HPI for pertinent positives and negative responses, otherwise all other systems are negative, nonpertinent or noncontributory. Constitutional: Negative except as outlined in HPI above. Skin: Negative except as outlined in HPI above. Eyes: Negative except as outlined in HPI above. HENT: Negative except as outlined in HPI above. Respiratory: Negative except as outlined in HPI above. Cardiovascular: Negative except as outlined in HPI above. GI: Negative except as outlined in HPI above. : Negative except as outlined in HPI above. Musculoskeletal: Negative except as outlined in HPI above. Integument: Negative except as outlined in HPI above. Neurologic: Negative except as outlined in HPI above. Endocrine: Negative except as outlined in HPI above. Lymphatic: Negative except as outlined in HPI above. Psychiatric: Negative except as outlined in HPI above. (VANESSA LE APRN) Current Medications Current Medications Current Medications Medications (Trade) Dose Ordered Sig/Chevy Start Time Stop Time Status Last Admin Dose Admin Diphenhydramine HCl (Benadryl) 50 mg 1X ONCE 10/04/21 12:15 10/04/21 12:34 DC 10/04/21 12:56 50 MG Haloperidol Lactate (Haldol) 5 mg 1X ONCE 10/04/21 12:15 10/04/21 12:34 DC 10/04/21 12:56 5 MG Ketorolac Tromethamine (Toradol 30mg Vial) 30 mg 1X ONCE 10/04/21 12:15 10/04/21 12:34 DC 10/04/21 12:56 30 MG Ondansetron HCl (Zofran) 8 mg 1X ONCE 10/04/21 12:15 10/04/21 12:34 DC 10/04/21 12:56 8 MG Sodium Chloride 1,000 ml @ 1,000 mls/hr 1X ONCE 10/04/21 12:15 10/04/21 13:14 DC 10/04/21 12:54 1,000 MLS/HR (VANESSA LE APRN) Allergies Allergies Allergies Coded Allergies Type Severity Reaction Last Updated Verified acetaminophen Allergy Intermediate HIVES 09/16/21 Yes adhesive tape Allergy Intermediate 09/16/21 Yes (VANESSA LE APRN) Physical Exam Physical Exam Constitutional: Well developed, well nourished, no acute distress, non-toxic appearance. 31-year-old female in no apparent distress. HENT: Normocephalic, atraumatic. Eyes: Conjunctiva normal, no discharge. Neck: Normal range of motion, no stridor. Cardiovascular: No cyanosis appreciated, distal cap refill less than 2 seconds. Lungs & Thorax: Patient is in no respiratory distress, no audible adventitious lung sounds appreciated. Abdomen: Nontender, no abnormalities noted. Skin: Warm, dry, no erythema, no rash. Back: No tenderness, no deformities. Extremities: No tenderness, no cyanosis, no clubbing, ROM intact, no edema. Neurologic: Alert and oriented X 3, normal motor function, normal sensory function, no focal deficits noted. Psychologic: Affect normal, judgement normal, mood normal. (VANESSA LE APRN) Current Patient Data Vital Signs Vital Signs Date Time Temp Pulse Resp B/P (MAP) Pulse Ox O2 Delivery O2 Flow Rate FiO2 10/04/21 15:16 90 14 130/91 (104) 99 Room Air 10/04/21 11:58 97.7 Lab Results Laboratory Tests Test 10/04/21 12:35 White Blood Count 6.9 x10^3/uL (4.0-11.0) Red Blood Count 4.46 x10^6/uL (3.50-5.40) Hemoglobin 13.3 g/dL (12.0-15.5) Hematocrit 39.8 % (36.0-47.0) Mean Corpuscular Volume 89 fL (79-100) Mean Corpuscular Hemoglobin 30 pg (25-35) Mean Corpuscular Hemoglobin Concent 34 g/dL (31-37) Red Cell Distribution Width 13.5 % (11.5-14.5) Platelet Count 318 x10^3/uL (140-400) Neutrophils (%) (Auto) 60 % (31-73) Lymphocytes (%) (Auto) 29 % (24-48) Monocytes (%) (Auto) 8 % (0-9) Eosinophils (%) (Auto) 2 % (0-3) Basophils (%) (Auto) 1 % (0-3) Neutrophils # (Auto) 4.1 x10^3uL (1.8-7.7) Lymphocytes # (Auto) 2.0 x10^3/uL (1.0-4.8) Monocytes # (Auto) 0.6 x10^3/uL (0.0-1.1) Eosinophils # (Auto) 0.2 x10^3/uL (0.0-0.7) Basophils # (Auto) 0.1 x10^3/uL (0.0-0.2) Sodium Level 134 mmol/L (136-145) L Potassium Level 3.3 mmol/L (3.5-5.1) L Chloride Level 99 mmol/L (98-107) Carbon Dioxide Level 25 mmol/L (21-32) Anion Gap 10 (6-14) Blood Urea Nitrogen 16 mg/dL (7-20) Creatinine 0.6 mg/dL (0.6-1.0) Estimated GFR (Cockcroft-Gault) 117.4 BUN/Creatinine Ratio 27 (6-20) H Glucose Level 138 mg/dL (70-99) H Calcium Level 8.9 mg/dL (8.5-10.1) Total Bilirubin 0.3 mg/dL (0.2-1.0) Aspartate Amino Transferase (AST) 13 U/L (15-37) L Alanine Aminotransferase (ALT) 15 U/L (14-59) Alkaline Phosphatase 68 U/L (46-116) Total Protein 7.1 g/dL (6.4-8.2) Albumin 3.6 g/dL (3.4-5.0) Albumin/Globulin Ratio 1.0 (1.0-1.7) Lipase 30 U/L (73-393) L (VANESSA LE APRN) EKG EKG [] (VANESSA LE APRN) Radiology/Procedures Radiology/Procedures [] (VANESSA LE APRN) Heart Score C/O Chest Pain: No Risk Factors: Risk Factors: DM, Current or recent (<one month) smoker, HTN, HLP, family history of CAD, obesity. Risk Scores: Risk Factors: DM, Current or recent (<one month) smoker, HTN, HLP, family history of CAD, obesity. (VANESSA LE APRN) Course & Med Decision Making Course & Med Decision Making Pertinent Labs and Imaging studies reviewed. (See chart for details) 31-year-old female, vital signs reviewed, presents to the emergency department concerning nausea and vomiting. Patient's physical presentation unremarkable, patient does appear uncomfortable and is spitting clear spit into a vomit bag. This is a typical presentation for her, I have personally seen her in the emergency department several times, the patient does not appear to be in diabetic ketoacidosis or other acute distress. Will order CBC, CMP, lipase, urinalysis assay, urine test, Zofran, 1 L normal saline, Benadryl, Haldol, Toradol.. Will reevaluate patient after period of time. Patient's labs unremarkable, patient CO2 within normal limits, patient's blood sugar 138, this is unlikely a diabetic ketoacidosis, upon reevaluation of the patient, the patient is sleeping. Patient is easily arousable. Discussed johanna ayoub with patient, strict follow-up with primary care for ongoing intractable nausea and vomiting symptoms. Patient is amenable to ED discharge planning however is upset she is not getting narcotic pain medication. Discussed with the patient all findings and diagnostic testing as well as the need to follow-up with their primary care provider for further evaluation and treatment or return to the ED if any new or worsening symptoms. Strict return precautions were also discussed at length, the patient voiced understanding and agreement with the discharge planning. The patient was nontoxic in appearance, in no apparent distress, and hemodynamically stable at the time of disposition. (VANESSA LE APRN) Dragon Disclaimer Dragon Disclaimer This electronic medical record was generated, in whole or in part, using a voice recognition dictation system. (VANESSA LE APRN) Attending Co-Sign The patient was seen and interviewed as well as examined at the bedside. The chart was reviewed. The case was discussed. Agree with the plan of care. (ROXY SU DO) Departure Departure: Impression: Primary Impression: Nausea & vomiting Disposition: 01 HOME / SELF CARE / HOMELESS Condition: GOOD Referrals: PCP,BAY (PCP) Additional Instructions: You have been evaluated in the emergency department for nausea vomiting with abdominal pain. Your emergency department evaluation did not find any emergent conditions that would require medical intervention or hospitalization at this time. There are times when abdominal problems take more time to appear, it is important that you monitor your symptoms and watch for new presentations or worsening of your current condition they are to require reevaluation in the emergency department. As we discussed you do have a slightly low potassium level at 3.3, please consider eating potassium rich foods or using a potassium supplement to keep your potassium at normal levels. Please follow-up with your primary care physician tomorrow for a reexamination of your symptoms and ongoing management. Please continue to control your diabetic blood sugars at home, call your primary care doctor tomorrow morning for the soonest appointment. Thank you for visiting our Emergency Department. It was a pleasure taking care of you today in the emergency department and we appreciate you trusting us with your care. If any additional problems come up don't hesitate to return to visit us. Please follow up with your primary care provider so they can plan additional care if needed and know about the problem that you had. If symptoms worsen come back to the Emergency Department. Any concerning symptoms that start such as chest pain, shortness of air, weakness or numbness on one side of the body, running high fevers or any other concerning symptoms return to the ER. EMERGENCY DEPARTMENT GENERAL DISCHARGE INSTRUCTIONS Thank you for coming to [facility] (ED) today and trusting us with you care. We trust that you had a positivie experience in our Emergency Department. If you wish to speak to the department management, you may call the director at [phone]. YOUR FOLLOW UP INSTRUCTIONS ARE FOLLOWS: 1. Do you have a private Doctor? If you do not have a private doctor, please ask for a resource list of physicians or clinics that may be able to assist you with follow up care. 2. The Emergency Physician has interpreted your x-rays. The X-Ray specialist will also review them. If there is a change in the findings, you will be notified in 48 hours when at all possible. 3. A lab test or culture has been done, your results will be reviewed and you will be notified if you need a change in treatment. ADDITIONAL INSTRUCTIONS AND INFORMATION: 1. Your care today has been supervised by a physician who is specially trained in emergency care. Many problems require more than one evaluation for a complete diagnosis and treatment. We recommend that you schedule your follow up appointment as recommended to ensure complete treatment of you illness or injury. If you are unable to obtain follow up care and continue to have a problem, or if your condition worsens, we recommend that you return to the ED. 2. We are not able to safely determine your condition over the phone nor are we able to give sound medical advice over the phone. For these safety reasons, if you call for medical advice we will ask you to come to the ED for further evaluation. 3. If you have any questions regarding these discharge instructions please call the ED at [phone]. SAFETY INFORMATION: In the interest of safety, wellness, and injury prevention; we encourage you to wear your sealbelt, if you smoke; quite smoking, and we encourage family to use a protective helmet for bicycling and other sporting events that present an increased risk for head injury. IF YOUR SYMPTOMS WORSEN OR NEW SYMPTOMS DEVELOP, OR YOU HAVE CONCERNS ABOUT YOUR CONDITION; OR IF YOUR CONDITION WORSENS WHILE YOU ARE WAITING FOR YOUR FOLLOW UP APPOINTMENT; EITHER CONTACT YOUR PRIMARY CARE DOCTOR, THE PHYSICIAN WHOSE NAME AND NUMBER YOU WERE GIVEN, OR RETURN TO THE ED IMMEDIATELY. Problem Qualifiers Primary Impression: Nausea & vomiting Vomiting type: unspecified Vomiting Intractability: unspecified Qualified Codes: R11.2 - Nausea with vomiting, unspecified VANESSA LE APRN Oct 04, 2021 15:34 ROXY SU DO Oct 05, 2021 13:42
== END 2021-10-04 15:40 | disposition home or self-care (01) ==
LOC: ER 11:58
DX: R11.2 Nausea with vomiting, unspecified (principal); R10.9 Unspecified abdominal pain; K21.9 Gastro-esophageal reflux disease without esophagitis; E11.9 Type 2 diabetes mellitus without complications; F41.9 Anxiety disorder, unspecified; F32.9 Major depressive disorder, single episode, unspecified; F17.210 Nicotine dependence, cigarettes, uncomplicated; Z88.8 Allergy status to other drugs, medicaments and biological substances
CPT/HCPCS: 36415; 80053; 83690; 85025; 96361; 96374; 96375; 99284; J1200; J1630; J1885; J2405; J7030

== ENCOUNTER 2021-10-07 19:05 | Emergency (ER) | payer MEDICAID ==
[~2021-10-07] VITALS: Ht 172.7 cm; Wt 60.0 kg
--- NOTE | 2021-10-07 19:10 | PHYS DOC ---
Past History Past Medical History: Anxiety, Constipation, Depression, Diabetes, GERD, Ovarian Cyst, Other Additional Past Medical Histor: gastroparesis, substance use disorder Past Surgical History: Other Additional Past Surgical Histo: ovarian cyst;eyex3;earx3;port;chest tubes; bx o f rt ankle Smoking: Cigarettes, Less than 1pk/day Alcohol Use: None Drug Use: Marijuana, Methamphetamine Adult General HPI HPI Patient is a 31-year-old female presents with nausea and vomiting which started today with some abdominal cramping. Denies any recent travels, traumas, illnesses, fevers, chest pain, shortness of breath, dysuria, hematuria, blood in the stool or diarrhea. Denies any known ill contacts. Review of Systems Review of Systems Review of systems otherwise unremarkable except noted in HPI Allergies Allergies Allergies Coded Allergies Type Severity Reaction Last Updated Verified acetaminophen Allergy Intermediate HIVES 09/16/21 Yes adhesive tape Allergy Intermediate 09/16/21 Yes Physical Exam Physical Exam Constitutional: Well developed, well nourished, no acute distress, non-toxic appearance. [] HENT: Normocephalic, atraumatic, bilateral external ears normal, oropharynx moist, no oral exudates, nose normal. [] Eyes: conjunctiva normal, no discharge. [] Neck: Normal range of motion, no tenderness, supple, no stridor. [] Cardiovascular:Heart rate regular rhythm, no murmur [] Lungs & Thorax: Bilateral breath sounds clear to auscultation [] Abdomen: Bowel sounds normal, soft, no tenderness, no masses, no pulsatile masses. [] Skin: Warm, dry, no erythema, no rash. [] Back: no CVA tenderness. [] Extremities: No tenderness, no cyanosis, no clubbing, ROM intact, no edema. [] Neurologic: Alert and oriented X 3, normal motor function, normal sensory function, no focal deficits noted. [] Psychologic: Affect normal, judgement normal, mood normal. [] EKG EKG [] Radiology/Procedures Radiology/Procedures [] Heart Score C/O Chest Pain: No Risk Factors: Risk Factors: DM, Current or recent (<one month) smoker, HTN, HLP, family history of CAD, obesity. Risk Scores: Risk Factors: DM, Current or recent (<one month) smoker, HTN, HLP, family history of CAD, obesity. Course & Med Decision Making Course & Med Decision Making Patient is a 31-year-old female presents with nausea and vomiting Vital signs notable for hypertension. Physical exam noted above. Patient given nausea medicine and IV fluid. As well as home pain medicine for her back. Venous blood gas not concerning for acidemia. Blood sugar not concerning for DKA. On reassessment, patient stated that she was feeling significantly better, and was ready to be discharged home. Discussed symptomatic treatment at home. Advised to follow-up in the morning with primary care physician and set up a ER follow-up visit. Patient grateful, verbalized understanding and agreed with plan of discharge [] Dragon Disclaimer Dragon Disclaimer This electronic medical record was generated, in whole or in part, using a voice recognition dictation system. Departure Departure: Impression: Primary Impression: Nausea & vomiting Disposition: 01 HOME / SELF CARE / HOMELESS Condition: GOOD Referrals: PCP,BAY (PCP) DINO ROMAN Patient Instructions: Nausea and Vomiting Additional Instructions: Thank you for coming into the emergency department tonight and allowing us to take care of you. Please read the attached information carefully to go back over some of the things we discussed. Please be sure to eat at least 3 nutritious meals a day at baseline but over the next couple of days please eat a light clear diet and plenty of fluids. Please follow-up in the morning with your primary care physician to update on your ED visit and set up a follow-up as soon as possible. Please come back with new or concerning symptoms as we discussed. TANIKA CAMARENA MD Oct 07, 2021 19:10
[2021-10-07] MEDS ORDERED: diphenhydrAMINE HCL 25 MG CAPSULE PO ONE (19:15)
[2021-10-07] MEDS ORDERED: ONDANSETRON ODT 4 MG TAB.RAPDIS PO ONE (19:15)
[2021-10-07] MEDS ORDERED: IV RINGERS SOLUTION,LACTATED 1,000 ML IV ONE (19:15)
[2021-10-07] MEDS ORDERED: METOCLOPRAMIDE HCL 10 MG/2 ML VIAL. IM ONE (19:15)
[2021-10-07] MEDS ORDERED: ONDANSETRON PF 4 MG/2 ML VIAL. IVP ONE (19:15)
[2021-10-07] MEDS ORDERED: KETOROLAC 15 MG/ML VIAL. IVP ONE (19:30)
[2021-10-07] MEDS ORDERED: diphenhydrAMINE 50 MG/ML VIAL ONE (19:48)
[2021-10-07 20:01] VITALS: BP 154/98
[2021-10-07] MEDS ORDERED: oxyCODONE/APAP 10/325 1 TAB TABLET ONE (20:44)
[2021-10-07] MEDS ORDERED: oxyCODONE/APAP 10/325 1 TAB TABLET PO ONE (20:45)
== END 2021-10-07 20:47 | disposition home or self-care (01) ==
LOC: ER 19:05
DX: R11.2 Nausea with vomiting, unspecified (principal); R10.84 Generalized abdominal pain; I10 Essential (primary) hypertension; E11.9 Type 2 diabetes mellitus without complications; K21.9 Gastro-esophageal reflux disease without esophagitis; F17.210 Nicotine dependence, cigarettes, uncomplicated; F12.10 Cannabis abuse, uncomplicated; F15.10 Other stimulant abuse, uncomplicated; Z88.6 Allergy status to analgesic agent
CPT/HCPCS: 82803; 96361; 96372; 96374; 96375; 99284; J1885; J2405; J2765; J7120; 82947

== ENCOUNTER 2021-10-12 22:08 | Emergency (ER) | payer MEDICAID ==
[~2021-10-12] VITALS: Ht 172.7 cm; Wt 54.5 kg
--- NOTE | 2021-10-12 22:44 | PHYS DOC ---
Past History Past Medical History: Anxiety, Constipation, Depression, Diabetes, GERD, Ovarian Cyst, Other Additional Past Medical Histor: gastroparesis, substance use disorder Past Surgical History: Other Additional Past Surgical Histo: ovarian cyst;eyex3;earx3;port;chest tubes; bx o f rt ankle Smoking: Cigarettes, Less than 1pk/day, Quit Less Than 1 Year Additional Smoking Information: hx of smoking 1 ppd x 17 years. Reports quiting w/n last 1.5 months Alcohol Use: None Drug Use: Marijuana, Methamphetamine Social History Narrative: Lives at home w/ mother General Adult EDM: Chief Complaint: SUICIDAL IDEATION HPI: HPI: Patient is a 31 y/o female presenting w/ a 1 day history of N/V. Brought to ED via EMS. Enroute w/ EMS she expressed SI. Patient has been vomiting constantly over the past 24 hours and presents to the ED due to continued vomiting. Patient reports the vomiting is constant and refractory to PRN Reglan & Zofran which she has prescribed to her. She also reports assocated ABD pain described as dull / crampy / sharp in the LLQ / RLQ spreading across her whole abdomen. Patient's LMP was within the last week. Regarding the reported SI the patient reports that she does not currently have a specific plan. She does have a past history of one suicide attempt as a teenager where she attempted to OD on sleeping medications. She reported that she does not have access to firearms and lives with her mother. Patient reports that she is feeling very frustrated with her DM / diabetic gastroparesis disease course which. Review of Systems: Review of Systems: Constitutional: Denies fever or chills Eyes: Denies change in visual acuity HENT: Denies nasal congestion or sore throat Respiratory: Denies cough or shortness of breath Cardiovascular: Denies chest pain or edema GI: Reports abdominal pain, nausea, vomiting; Denies bloody stools or diarrhea : Denies dysuria Musculoskeletal: Denies back pain or joint pain Integument: Denies rash Neurologic: Denies headache, focal weakness or sensory changes Endocrine: Denies polyuria or polydipsia Lymphatic: Denies swollen glands Psychiatric: Reports frustration and being upset w/ chronic health conditions Family History: Family History: Patient reports no remarkable family hx Current Medications: Current Meds: Current Medications Medications (Trade) Dose Ordered Sig/Chevy Start Time Stop Time Status Last Admin Dose Admin Famotidine (Pepcid Vial) 20 mg 1X ONCE 10/12/21 23:00 10/12/21 23:01 Ondansetron HCl (Zofran) 4 mg 1X ONCE 10/12/21 23:00 10/12/21 23:01 Sodium Chloride 1,000 ml @ 1,000 mls/hr 1X ONCE 10/12/21 23:00 10/12/21 23:59 Allergies: Allergies: Allergies Coded Allergies Type Severity Reaction Last Updated Verified acetaminophen Allergy Intermediate HIVES 09/16/21 Yes adhesive tape Allergy Intermediate 09/16/21 Yes Physical Exam: PE: Constitutional: Well developed, mild distress, non-toxic appearance. HENT: Normocephalic, atraumatic, bilateral external ears normal, nose normal. Eyes: conjunctiva normal, no discharge. Neck: Normal range of motion, no tenderness, supple, no stridor. Cardiovascular:Heart rate regular rhythm, no murmur, +2 peripheral pulses, +s1/s2 heart sounds Lungs & Thorax: Bilateral breath sounds clear to auscultation, normal chest wall excursion bilaterally Abdomen: Bowel sounds normal, soft, no masses, no pulsatile masses. Skin: Warm, dry, no erythema, no rash. Back: No tenderness, no CVA tenderness. Extremities: No tenderness, no cyanosis, no clubbing, ROM intact, no edema. Neurologic: Alert and oriented X 3, normal motor function, normal sensory function, no focal deficits noted. Psychologic: Somber affect, Frustrated EKG: EKG: [] Radiology/Procedures: Radiology/Procedures: [] Heart Score: C/O Chest Pain: N/A Course & Med Decision Making: Course & Med Decision Making Pertinent Labs and Imaging studies reviewed. (See chart for details) 31 y/o female presenting to ED w/ N/V as well as reported SI. Plan for 1:1 observation, Peripheral IV, Fluids, Lab work, Psych Consult, nausea & pain medication. Dragon Disclaimer: Annelise Disclaimer: This electronic medical record was generated, in whole or in part, using a voice recognition dictation system. Departure Departure: Impression: Primary Impression: Chronic abdominal pain Additional Impressions: Intractable nausea and vomiting Diabetic gastroparesis Disposition: HOME / SELF CARE / HOMELESS Condition: STABLE Referrals: PCP,BAY (PCP) JESSICA GODINEZ MD Patient Instructions: Chronic Pain, Gastroparesis, Nausea and Vomiting, [id number] Scripts Hyoscyamine Sulfate (LEVSIN-SL) 0.125 Mg Tab.subl 0.125 MG SL Q4-6HRS PRN for PAIN, #14 TAB Prov: VANESSA OLIVER DO 10/13/21 Metoclopramide Hcl (REGLAN) 10 Mg Tablet 1 TAB PO QID for Gastroparesis, #40 TAB 0 Refills before food and bedtime Prov: VANESSA OLIVER DO 10/13/21 VANESSA OLIVER DO Oct 12, 2021 22:44
[2021-10-12] MEDS ORDERED: ONDANSETRON PF 4 MG/2 ML VIAL. IVP ONE (23:00)
[2021-10-12] MEDS ORDERED: FAMOTIDINE 20 MG/2 ML VIAL IVP ONE (23:00)
[2021-10-12] MEDS ORDERED: IV NORMAL SALINE 1,000ML 1,000 ML IV ONE (23:00)
[2021-10-12 23:11] LABS: BASO % 1 % (0-3); EOS # 0.1 x10^3/uL (0.0-0.7); EOS % 2 % (0-3); HEMATOCRIT 39.8 % (36.0-47.0); HEMOGLOBIN 13.1 g/dL (12.0-15.5); LYMPH # 1.9 x10^3/uL (1.0-4.8); LYMPH % 42 % (24-48); MEAN CORPUSCULAR HEMOGLOBIN 30 pg (25-35); MEAN CORPUSCULAR HGB CONC 33 g/dL (31-37); MEAN CORPUSCULAR VOLUME 90 fL (79-100); MONO # 0.3 x10^3/uL (0.0-1.1); MONO % 7 % (0-9); NEUT # 2.3 x10^3uL (1.8-7.7); NEUT % 49 % (31-73); PLATELET COUNT 53 x10^3/uL (140-400); RED BLOOD COUNT 4.41 x10^6/uL (3.50-5.40); RED CELL DISTRIBUTION WIDTH 13.6 % (11.5-14.5); WHITE BLOOD COUNT 4.7 x10^3/uL (4.0-11.0)
[2021-10-12 23:17] LABS: AMPHETAMINE/METHAMPHETAMINE POS (NEG); BARBITURATES NEG (NEG); BENZODIAZEPINES NEG (NEG); CANNABINOIDS NEG (NEG); COCAINE NEG (NEG); METHADONE NEG (NEG); OPIATES NEG (NEG); PHENCYCLIDINE NEG (NEG)
[2021-10-12 23:22] LABS: CREATININE 0.7 mg/dL (0.6-1.0); GFR 98.3; POTASSIUM 3.8 mmol/L (3.5-5.1)
[2021-10-12 23:23] LABS: BILIRUBIN,URINE NEG (NEG); CLARITY,URINE CLOUDY; COLOR,URINE YELLOW; GLUCOSE,URINE 500 mg/dL (NEG)
[2021-10-12 23:24] LABS: BACTERIA,URINE FEW /HPF (0-FEW); NITRITE,URINE NEG (NEG); SQUAMOUS EPITHELIAL CELL,UR FEW /LPF; UROBILINOGEN,URINE 0.2 mg/dL (0.2 mg/dL)
[2021-10-12 23:28] LABS: ALBUMIN 3.8 g/dL (3.4-5.0); MAGNESIUM 1.9 mg/dL (1.8-2.4); TOTAL BILIRUBIN 0.3 mg/dL (0.2-1.0); TOTAL PROTEIN 7.5 g/dL (6.4-8.2)
[2021-10-12 23:29] LABS: ACETAMIN < 2.0 mcg/mL (10-30); SALIC 0.9 mg/dL (2.8-20.0)
[2021-10-12] MEDS ORDERED: HALOPERIDOL LACT 5 MG/ML VIAL. IM ONE (23:30)
[2021-10-13] MEDS ORDERED: METO10TA81 PO (00:13)
[2021-10-13] MEDS ORDERED: HYOS0.1265 SL (00:13)
[2021-10-13] MEDS ORDERED: KETOROLAC 30 MG/ML VIAL. IVP ONE (00:30)
[2021-10-13 00:59] VITALS: BP 131/98
== END 2021-10-13 01:25 | disposition home or self-care (01) ==
LOC: ER 22:08
DX: E11.43 Type 2 diabetes mellitus with diabetic autonomic (poly)neuropathy (principal); K31.84 Gastroparesis; G89.29 Other chronic pain; R11.2 Nausea with vomiting, unspecified; R10.11 Right upper quadrant pain; R10.12 Left upper quadrant pain; K21.9 Gastro-esophageal reflux disease without esophagitis; Z20.822 Contact with and (suspected) exposure to COVID-19; Z87.891 Personal history of nicotine dependence; Z88.8 Allergy status to other drugs, medicaments and biological substances
CPT/HCPCS: 36415; 80053; 80307; 80329; 81001; 82010; 83690; 83735; 85025; 87086; 96361; 96372; 96374; 96375; 99284; C9803; G0480; J1630; J1885; J2405; J3010; J3490; J7030; U0003

== ENCOUNTER 2021-11-24 20:07 | Emergency (ER) | payer MEDICAID ==
[~2021-11-24] VITALS: Ht 172.7 cm; Wt 54.5 kg
--- NOTE | 2021-11-24 20:10 | PHYS DOC ---
Past History Past Medical History: Anxiety, Constipation, Depression, Diabetes, GERD, Ovarian Cyst, Other Additional Past Medical Histor: gastroparesis, substance use disorder Past Surgical History: Other Additional Past Surgical Histo: ovarian cyst;eyex3;earx3;port;chest tubes; bx o f rt ankle Smoking: Cigarettes, Less than 1pk/day, Quit Less Than 1 Year Alcohol Use: None Drug Use: Marijuana, Methamphetamine General Adult HPI: HPI: ". I am vomiting.. " Patient is a 31 year old female who presents with above hx and complaints of nausea, vomiting, dehydration and elevated Glucose. Patient is well-known to ER staff for frequent episodes of DKA. Patient presents in similar presentation as previous ED visits and admissions. She has long history of cyclic vomiting, poorly controlled diabetes, substance abuse, dehydration, DKA, depression, anxiety, chronic constipation, GERD, ovarian cyst, gastroparesis, tobacco use, recreational marijuana and methamphetamine use. Patient is somewhat of currently a poor historian. Unable to determine if any recent travel or specific ill contacts. Patient denies any history of immunosuppression other than her diabetes. Review of Systems: Review of Systems: Constitutional: Denies fever or chills Eyes: Denies change in visual acuity HENT: Denies nasal congestion or sore throat Respiratory: Denies cough or shortness of breath Cardiovascular: Denies chest pain or edema GI: Complains abdominal pain, nausea, vomiting, constipation. Denies bloody stools or diarrhea : Denies dysuria Musculoskeletal: Denies back pain or joint pain Integument: Denies rash Neurologic: Denies headache, focal weakness or sensory changes Endocrine: Denies polyuria or polydipsia Lymphatic: Denies swollen glands Psychiatric: Denies depression or anxiety Family History: Family History: Noncontributory to current presentation Current Medications: Current Meds: See nursing for home meds Allergies: Allergies: Allergies Coded Allergies Type Severity Reaction Last Updated Verified acetaminophen Allergy Intermediate HIVES 09/16/21 Yes adhesive tape Allergy Intermediate 09/16/21 Yes Physical Exam: PE: Constitutional: In moderate acute distress, non-toxic appearance. [] HENT: Normocephalic, atraumatic, bilateral external ears normal, oropharynx dry, no oral exudates, nose normal. [] Eyes: PERRLA, EOMI, conjunctiva normal, no discharge. [] Neck: Normal range of motion, no tenderness, supple, no stridor. [] Cardiovascular: Tachycardia heart rate regular rhythm, no murmur [] Lungs & Thorax: Bilateral breath sounds equal apex with scattered wheezes on auscultation []Old scars. Abdomen: Bowel sounds decreased,, , epigastric tenderness, no masses, no pulsatile masses. Very Distended. Old scars. Skin: Warm, dry, no erythema, no rash. Poor turgor Back: No tenderness, no CVA tenderness. [] Extremities: No tenderness, no cyanosis, no clubbing, ROM intact, no edema. [] Neurologic: Alert and oriented X 3, normal motor function, normal sensory function, no focal deficits noted. [] Psychologic: Affect flat, judgement impaired, slow to respond, mood depressed. EKG: EKG: My interpretation EKG shows a sinus tachycardia 123 bpm. Right axis. But no findings acute STEMI with contralateral changes. Radiology/Procedures: Radiology/Procedures: [][place] [address] IMAGING REPORT Signed PATIENT: CHALO RAYMUNDO ACCOUNT: [id number] : 1990 LOCATION: ER AGE: 31 SEX: F EXAM STATUS: REG ER ORD. PHYSICIAN: YELENA HENRY MD REASON: Lethargic, n/v, chest and abdomen pain PROCEDURE: ACUTE ABDOMEN SERIES Study: XR ABDOMEN COMP ACUTE Indication: Lethargic. Nausea and vomiting. Chest and abdominal pain. Comparison: 07/22/2021 Findings: Bilateral nipple shadows. Mildly increased lung markings without a confluent infiltrate, pleural effusion or pneumothorax. The cardiomediastinal silhouette and lyndsay are within normal limits. Nonobstructive bowel gas pattern. Moderate volume colonic stool burden. No radiographic evidence for pneumoperitoneum. Transitional lumbosacral anatomy with a pseudoarticulation on the right. Unchanged small focus of increased density projecting at the right hemipelvis. Impression: 1. Moderate constipation. Nonobstructive bowel gas pattern. 2. No acute radiographic abnormality of the chest. Electronically signed by: CHIQUITA WEST MD (11/24/2021 10:00 PM) [facility] DICTATED AND SIGNED BY: CHIQUITA WEST MD DATE: 11/24/212157 CC: YELENA HENRY MD; PCP,NO ~MTH0 0 Heart Score: C/O Chest Pain: No Risk Factors: Risk Factors: DM, Current or recent (<one month) smoker, HTN, HLP, family history of CAD, obesity. Risk Scores: Score 0 - 3: 2.5% MACE over next 6 weeks - Discharge Home Score 4 - 6: 20.3% MACE over next 6 weeks - Admit for Clinical Observation Score 7 - 10: 72.7% MACE over next 6 weeks - Early Invasive Strategies Course & Med Decision Making: Course & Med Decision Making Pertinent Labs and Imaging studies reviewed. (See chart for details) JASEN Conley- given report. Advised she knew pt. when she used to cover [facility] and [address]. Will try to re-arrange bed and may be able to accept pt. Pt. accepted at [place]- Dr. Lopes accepting. 2300. [address] Pt. tp admitted for DKA Critical Care- 90 min. charting, discussions with other hospitals for possible transfer, management of her multiple critical labs and medical diagnosis. Impression: 1. DKA Glucose =857 2. Leukocytosis 27.4- 82 Segs 3. Hyperkalemia 7.1= Critical 4. Hyponatremia 112 5. Acute Renal Insuf. Bun 94/Crit. 3.0 6. Dehydration 6. Hypokalemia 7. Polysubstance abuse Hx. = + for meth. tonight 8. Constipation [] Dragon Disclaimer: Dragon Disclaimer: This electronic medical record was generated, in whole or in part, using a voice recognition dictation system. Departure Departure: Referrals: PCP,NO (PCP) Dragon Disclaimer This chart was dictated in whole or in part using Voice Recognition software in a busy, high-work load, and often noisy Emergency Department environment. It may contain unintended and wholly unrecognized errors or omissions. Dragon Disclaimer This chart was dictated in whole or in part using Voice Recognition software in a busy, high-work load, and often noisy Emergency Department environment. It may contain unintended and wholly unrecognized errors or omissions. Dragon Disclaimer This chart was dictated in whole or in part using Voice Recognition software in a busy, high-work load, and often noisy Emergency Department environment. It may contain unintended and wholly unrecognized errors or omissions. YELENA HENRY MD Nov 24, 2021 20:10
[2021-11-24] MEDS ORDERED: IV NORMAL SALINE 1,000ML 1,000 ML IV SCH (20:15)
[2021-11-24] MEDS ORDERED: ONDANSETRON PF 4 MG/2 ML VIAL. IVP ONE (20:15)
[2021-11-24] MEDS ORDERED: diphenhydrAMINE 50 MG/ML VIAL IM ONE (20:15)
[2021-11-24] MEDS ORDERED: PROCHLORPERAZINE 10 MG/2 ML VIAL. IM ONE (20:15)
[2021-11-24] MEDS ORDERED: FAMOTIDINE 20 MG/2 ML VIAL IVP ONE (20:15)
[2021-11-24 20:39] LABS: BASO % 0 % (0-3); EOS # 0.2 x10^3/uL (0.0-0.7); EOS % 1 % (0-3); HEMATOCRIT 39.8 % (36.0-47.0); LYMPH # 2.4 x10^3/uL (1.0-4.8); LYMPH % 9 % (24-48); MEAN CORPUSCULAR HEMOGLOBIN 30 pg (25-35); MEAN CORPUSCULAR HGB CONC 30 g/dL (31-37); MEAN CORPUSCULAR VOLUME 98 fL (79-100); MONO # 1.6 x10^3/uL (0.0-1.1); MONO % 6 % (0-9); NEUT # 23.2 x10^3uL (1.8-7.7); NEUT % 84 % (31-73); PLATELET COUNT 425 x10^3/uL (140-400); RED BLOOD COUNT 4.08 x10^6/uL (3.50-5.40); RED CELL DISTRIBUTION WIDTH 14.2 % (11.5-14.5); WHITE BLOOD COUNT 27.4 x10^3/uL (4.0-11.0)
[2021-11-24 20:50] LABS: CALCIUM 7.3 mg/dL (8.5-10.1); GFR 18.3
[2021-11-24] MEDS ORDERED: SODIUM BICARB ADULT 8.4% 50 MEQ/50 ML DISP.SYRIN. IV ONE (21:00)
[2021-11-24] MEDS ORDERED: INSULIN REGULAR VIAL 100 UNIT in IV NORMAL SALINE 100ML 100 ML IV PRN (21:00)
[2021-11-24 21:03] LABS: POTASSIUM 7.1 mmol/L (3.5-5.1)
[2021-11-24 21:07] LABS: % BANDS 5 % (0-9); % BASOS 1 % (0-3); % LYMPHS 11 % (24-48); % MONOS 1 % (0-10); % SEGS 82 % (35-66); PLT ESTIMATE INCREASED (ADEQUATE)
[2021-11-24 21:08] LABS: BARBITURATES NEG (NEG); BENZODIAZEPINES NEG (NEG); CANNABINOIDS NEG (NEG); COCAINE NEG (NEG); METHADONE NEG (NEG); OPIATES NEG (NEG); PHENCYCLIDINE NEG (NEG)
[2021-11-24 21:10] LABS: BILIRUBIN,URINE NEG (NEG); CLARITY,URINE HAZY; COLOR,URINE YELLOW; GLUCOSE,URINE >=1000 mg/dL (NEG); UROBILINOGEN,URINE 0.2 mg/dL (0.2 mg/dL)
[2021-11-24 21:11] LABS: BACTERIA,URINE MOD /HPF (0-FEW); RBC,URINE OCC /HPF (0-2); SQUAMOUS EPITHELIAL CELL,UR MOD /LPF; WBC,URINE >40 /HPF (0-4)
[2021-11-24 21:12] LABS: NITRITE,URINE NEG (NEG)
[2021-11-24 21:17] LABS: AMPHETAMINE/METHAMPHETAMINE POS (NEG)
[2021-11-24] MEDS ORDERED: CALCIUM CHLORIDE 1,000 MG in IV NORMAL SALINE 50ML 50 ML IV ONE (21:45)
[2021-11-24] MEDS ORDERED: IV NORMAL SALINE 50ML 50 ML ONE (21:54)
[2021-11-24] MEDS ORDERED: CALCIUM CHLORIDE 1,000 MG/10 ML DISP.SYRIN IV ONE (21:54)
--- NOTE | 2021-11-24 22:02 | RAD ---
Study: XR ABDOMEN COMP ACUTE Indication: Lethargic. Nausea and vomiting. Chest and abdominal pain. Comparison: 07/22/2021 Findings: Bilateral nipple shadows. Mildly increased lung markings without a confluent infiltrate, pleural effu cyn or pneumothorax. The cardiomediastinal silhouette and lyndsay are within normal limits. Nonobstruct rowan bowel gas pattern. Moderate volume colonic stool burden. No radiographic evidence for pneumoperit oneum. Transitional lumbosacral anatomy with a pseudoarticulation on the right. Unchanged small focus of increased density projecting at the right hemipelvis. Impression: 1. Moderate constipation. Nonobstructive bowel gas pattern. 2. No acute radiographic abnormality of the chest. Electronically signed by: CHIQUITA WEST MD (11/24/2021 10:00 PM) [facility]
[2021-11-24 22:04] LABS: INFLUENZA A PATIENT NEGATIVE (NEGATIVE); INFLUENZA B PATIENT NEGATIVE (NEGATIVE)
[2021-11-24 22:26] LABS: BGAS PH 7.25 (7.35-7.45)
[2021-11-24] MEDS: MAGNESIUM HYDROXIDE 2,400 MG/30 ML ORAL.SUSP. PO ONE ×2 (23:15→23:33)
[2021-11-24] MEDS ORDERED: SODIUM POLYSTYRENE SULFONATE 15 GM/60 ML ORAL.SUSP. PO ONE (23:15)
[2021-11-24 23:37] VITALS: BP 88/46
[2021-11-24] MEDS ORDERED: IV NORMAL SALINE 1,000ML 1,000 ML IV ONE (23:45)
--- NOTE | 2021-11-24 23:47 | EKG ---
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
== END 2021-11-24 23:51 | disposition short-term general hospital (02) ==
LOC: ER 20:07
DX: E11.10 Type 2 diabetes mellitus with ketoacidosis without coma (principal); D72.829 Elevated white blood cell count, unspecified; E87.5 Hyperkalemia; E87.1 Hypo-osmolality and hyponatremia; N28.9 Disorder of kidney and ureter, unspecified; E86.0 Dehydration; E87.6 Hypokalemia; K59.00 Constipation, unspecified; F19.10 Other psychoactive substance abuse, uncomplicated; F41.9 Anxiety disorder, unspecified; F32.9 Major depressive disorder, single episode, unspecified; K21.9 Gastro-esophageal reflux disease without esophagitis; Z20.822 Contact with and (suspected) exposure to COVID-19; Z87.891 Personal history of nicotine dependence; Z88.6 Allergy status to analgesic agent; Z88.8 Allergy status to other drugs, medicaments and biological substances
CPT/HCPCS: 36415; 36600; 74022; 80048; 80307; 81001; 81025; 82150; 82803; 83690; 84484; 85007; 85025; 87086; 87426; 87804; 93005; 96361; 96365; 96367; 96372; 96375; 99291; 99292; C9803; J0780; J1200; J1815; J2405; J3490; J7030; U0003

== ENCOUNTER 2021-12-01 14:24 | Emergency (ER) | payer MEDICAID ==
[~2021-12-01] VITALS: Ht 172.7 cm; Wt 54.5 kg
[2021-12-01] MEDS ORDERED: IV NORMAL SALINE 1,000ML 1,000 ML IV ONE ×2 (14:45→15:45)
[2021-12-01 15:17] LABS: BASO # 0.1 x10^3/uL (0.0-0.2); BASO % 1 % (0-3); EOS % 0 % (0-3); HEMATOCRIT 44.2 % (36.0-47.0); HEMOGLOBIN 14.1 g/dL (12.0-15.5); LYMPH # 1.7 x10^3/uL (1.0-4.8); LYMPH % 15 % (24-48); MEAN CORPUSCULAR HEMOGLOBIN 30 pg (25-35); MEAN CORPUSCULAR HGB CONC 32 g/dL (31-37); MEAN CORPUSCULAR VOLUME 94 fL (79-100); MONO # 0.5 x10^3/uL (0.0-1.1); MONO % 5 % (0-9); NEUT # 9.4 x10^3uL (1.8-7.7); NEUT % 80 % (31-73); PLATELET COUNT 478 x10^3/uL (140-400); RED CELL DISTRIBUTION WIDTH 13.4 % (11.5-14.5); WHITE BLOOD COUNT 11.7 x10^3/uL (4.0-11.0)
[2021-12-01 15:33] LABS: ALBUMIN 3.1 g/dL (3.4-5.0); ALBUMIN/GLOBULIN RATIO 0.8 (1.0-1.7); CALCIUM 8.6 mg/dL (8.5-10.1); CREATININE 1.1 mg/dL (0.6-1.0); GFR 58.3; TOTAL BILIRUBIN 0.7 mg/dL (0.2-1.0)
[2021-12-01 15:35] LABS: POTASSIUM 6.4 mmol/L (3.5-5.1)
[2021-12-01 15:38] LABS: INFLUENZA A PATIENT NEGATIVE (NEGATIVE); INFLUENZA B PATIENT NEGATIVE (NEGATIVE)
[2021-12-01] MEDS ORDERED: DEXTROSE 50% 25 GM / 50ML DISP.SYRIN. IV PRN (15:45)
[2021-12-01 15:56] LABS: BARBITURATES NEG (NEG); BENZODIAZEPINES NEG (NEG); CANNABINOIDS NEG (NEG); COCAINE NEG (NEG); METHADONE NEG (NEG); OPIATES NEG (NEG); PHENCYCLIDINE NEG (NEG)
[2021-12-01 15:59] LABS: BILIRUBIN,URINE NEG (NEG); CLARITY,URINE HAZY; COLOR,URINE YELLOW; GLUCOSE,URINE 500 mg/dL (NEG); NITRITE,URINE NEG (NEG); UROBILINOGEN,URINE 0.2 mg/dL (0.2 mg/dL)
[2021-12-01 16:00] LABS: BACTERIA,URINE FEW /HPF (0-FEW); HYALINE CASTS, URINE OCC /HPF; RBC,URINE 20-40 /HPF (0-2); SQUAMOUS EPITHELIAL CELL,UR MANY /LPF; WBC,URINE 20-40 /HPF (0-4)
[2021-12-01] MEDS ORDERED: MORPHINE SULFATE 2 MG/ML DISP.SYRIN. IV ONE (16:00)
[2021-12-01] MEDS ORDERED: diphenhydrAMINE 50 MG/ML VIAL IVP ONE (16:00)
[2021-12-01] MEDS ORDERED: INSULIN REGULAR VIAL 100 UNIT in IV NORMAL SALINE 100ML 100 ML IV PRN (16:00)
[2021-12-01 16:02] LABS: AMPHETAMINE/METHAMPHETAMINE POS (NEG)
--- NOTE | 2021-12-01 17:43 | PHYS DOC ---
Past History Past Medical History: Anxiety, Constipation, Depression, Diabetes, GERD, Ovarian Cyst, Other Additional Past Medical Histor: gastroparesis, substance use disorder Past Surgical History: Other Additional Past Surgical Histo: ovarian cyst;eyex3;earx3;port;chest tubes; bx o f rt ankle Smoking: Cigarettes, Less than 1pk/day, Quit Less Than 1 Year Alcohol Use: None Drug Use: Marijuana, Methamphetamine General Adult EDM: Chief Complaint: BLOOD SUGAR PROBLEM HPI: HPI: 31-year-old female well-known to the emergency room presents via EMS with elevated blood sugar and altered mental status. The patient frequently comes emergency room in [facility]. She states she has not taken her insulin in 2 days because her blood sugars were not high enough to take any. She complains of pain all over. She has no other specific complaints at this time. Review of Systems: Review of Systems: Constitutional: Denies fever or chills Eyes: Denies change in visual acuity HENT: Denies nasal congestion or sore throat Respiratory: Denies cough or shortness of breath Cardiovascular: Denies chest pain or edema GI: Generalized abdominal pain, nausea, vomiting. : Denies dysuria Musculoskeletal: Denies back pain or joint pain Integument: Denies rash Neurologic: Denies headache, focal weakness or sensory changes Endocrine: Denies polyuria or polydipsia Lymphatic: Denies swollen glands Psychiatric: Denies depression or anxiety Current Medications: Current Meds: Current Medications Medications (Trade) Dose Ordered Sig/Chevy Start Time Stop Time Status Last Admin Dose Admin Dextrose (Dextrose 50%-Water Syringe) 12.5 gm PRN Q15MIN PRN 12/01/21 15:45 12/01/21 16:19 12.5 GM Diphenhydramine HCl (Benadryl) 50 mg 1X ONCE 12/01/21 16:00 12/01/21 16:01 DC 12/01/21 15:52 50 MG Insulin Human Regular 100 unit/ Sodium Chloride 101 ml @ 0 mls/hr CONT PRN 12/01/21 16:00 12/01/21 16:20 8.2 MLS/HR Morphine Sulfate (Morphine 2mg Syringe) 2 mg 1X ONCE 12/01/21 16:00 12/01/21 16:01 DC 12/01/21 15:52 2 MG Sodium Chloride 1,000 ml @ 1,000 mls/hr 1X ONCE 12/01/21 15:45 12/01/21 16:44 DC 12/01/21 15:45 1,000 MLS/HR Allergies: Allergies: Allergies Coded Allergies Type Severity Reaction Last Updated Verified acetaminophen Allergy Intermediate HIVES 09/16/21 Yes adhesive tape Allergy Intermediate 09/16/21 Yes Physical Exam: PE: Constitutional: Well developed, well nourished, no acute distress, non-toxic appearance. [] HENT: Normocephalic, atraumatic, bilateral external ears normal, oropharynx mois t, no oral exudates, nose normal. [] Eyes: PERRLA, EOMI, conjunctiva normal, no discharge. [] Neck: Normal range of motion, no tenderness, supple, no stridor. [] Cardiovascular: Heart rate 115, regular rhythm, no murmur [] Lungs & Thorax: Bilateral breath sounds clear to auscultation [] Abdomen: Bowel sounds normal, soft, no tenderness, no masses, no pulsatile masses. [] Skin: Warm, dry, no erythema, no rash. [] Back: No tenderness, no CVA tenderness. [] Extremities: No tenderness, no cyanosis, no clubbing, ROM intact, no edema. [] Neurologic: Alert and oriented X 3, normal motor function, normal sensory function, no focal deficits noted. [] Psychologic: Affect uncooperative, judgement normal, mood anxious. [] Current Patient Data: Labs: Laboratory Tests Test 12/01/21 14:30 12/01/21 14:54 12/01/21 15:05 12/01/21 16:12 Glucose (Fingerstick) 443 mg/dL (70-99) H 472 mg/dL (70-99) H White Blood Count 11.7 x10^3/uL (4.0-11.0) H Red Blood Count 4.70 x10^6/uL (3.50-5.40) Hemoglobin 14.1 g/dL (12.0-15.5) Hematocrit 44.2 % (36.0-47.0) Mean Corpuscular Volume 94 fL (79-100) Mean Corpuscular Hemoglobin 30 pg (25-35) Mean Corpuscular Hemoglobin Concent 32 g/dL (31-37) Red Cell Distribution Width 13.4 % (11.5-14.5) Platelet Count 478 x10^3/uL (140-400) H Neutrophils (%) (Auto) 80 % (31-73) H Lymphocytes (%) (Auto) 15 % (24-48) L Monocytes (%) (Auto) 5 % (0-9) Eosinophils (%) (Auto) 0 % (0-3) Basophils (%) (Auto) 1 % (0-3) Neutrophils # (Auto) 9.4 x10^3uL (1.8-7.7) H Lymphocytes # (Auto) 1.7 x10^3/uL (1.0-4.8) Monocytes # (Auto) 0.5 x10^3/uL (0.0-1.1) Eosinophils # (Auto) 0.0 x10^3/uL (0.0-0.7) Basophils # (Auto) 0.1 x10^3/uL (0.0-0.2) Sodium Level 121 mmol/L (136-145) L Potassium Level 6.4 mmol/L (3.5-5.1) *H Chloride Level 85 mmol/L (98-107) L Carbon Dioxide Level 5 mmol/L (21-32) *L Anion Gap 31 (6-14) H Blood Urea Nitrogen 28 mg/dL (7-20) H Creatinine 1.1 mg/dL (0.6-1.0) H Estimated GFR (Cockcroft-Gault) 58.3 BUN/Creatinine Ratio 25 (6-20) H Glucose Level 445 mg/dL (70-99) H Calcium Level 8.6 mg/dL (8.5-10.1) Total Bilirubin 0.7 mg/dL (0.2-1.0) Aspartate Amino Transferase (AST) 52 U/L (15-37) H Alanine Aminotransferase (ALT) 137 U/L (14-59) H Alkaline Phosphatase 105 U/L (46-116) Total Protein 7.0 g/dL (6.4-8.2) Albumin 3.1 g/dL (3.4-5.0) L Albumin/Globulin Ratio 0.8 (1.0-1.7) L Influenza Type A (Rapid) Negative (NEGATIVE) Influenza Type B (Rapid) Negative (NEGATIVE) SARS-CoV-2 Antigen (Rapid) Negative (NEGATIVE) Urine Collection Type Unknown Urine Color Yellow Urine Clarity Hazy Urine pH 5.0 Urine Specific [place] 1.025 Urine Protein 100 mg/dl (NEG-TRACE) Urine Glucose (UA) 500 mg/dL (NEG) Urine Ketones (Stick) >=160 mg/dL (NEG) Urine Blood Large (NEG) Urine Nitrite Neg (NEG) Urine Bilirubin Neg (NEG) Urine Urobilinogen Dipstick 0.2 mg/dL (0.2 mg/dL) Urine Leukocyte Esterase Neg (NEG) Urine RBC 20-40 /HPF (0-2) Urine WBC 20-40 /HPF (0-4) Urine Squamous Epithelial Cells Many /LPF Urine Bacteria Few /HPF (0-FEW) Urine Hyaline Casts Occ /HPF Urine Mucus Slight /LPF Urine Opiates Screen Neg (NEG) Urine Methadone Screen Neg (NEG) Urine Barbiturates Neg (NEG) Urine Phencyclidine Screen Neg (NEG) Urine Amphetamine/Methamphetamine Pos (NEG) Urine Benzodiazepines Screen Neg (NEG) Urine Cocaine Screen Neg (NEG) Urine Cannabinoids Screen Neg (NEG) Urine Ethyl Alcohol Neg (NEG) Test 12/01/21 17:15 Glucose (Fingerstick) 370 mg/dL (70-99) H Vital Signs: Vital Signs Date Time Temp Pulse Resp B/P (MAP) Pulse Ox O2 Delivery O2 Flow Rate FiO2 12/01/21 15:52 16 12/01/21 14:34 98.4 76 98/57 (71) 98 Room Air EKG: EKG: [] Radiology/Procedures: Radiology/Procedures: [] Heart Score: C/O Chest Pain: N/A Risk Factors: Risk Factors: DM, Current or recent (<one month) smoker, HTN, HLP, family history of CAD, obesity. Risk Scores: Score 0 - 3: 2.5% MACE over next 6 weeks - Discharge Home Score 4 - 6: 20.3% MACE over next 6 weeks - Admit for Clinical Observation Score 7 - 10: 72.7% MACE over next 6 weeks - Early Invasive Strategies Course & Med Decision Making: Course & Med Decision Making Pertinent Labs and Imaging studies reviewed. (See chart for details) The patient's labs are significant for an elevated blood sugar, decreased CO2, increased anion gap. The patient is in DKA. I have ordered 2 L normal saline and an insulin drip. She is also positive for methamphetamines. I will admit the patient to the hospital. I spoke with Dr. Pereira and he has agreed admit the patient. She will be held in the emergency room because there are no beds in the hospital. I have made Dr. Camilo aware of the patient. [] Dragon Disclaimer: Dragon Disclaimer: This electronic medical record was generated, in whole or in part, using a voice recognition dictation system. Departure Departure: Impression: Primary Impression: Diabetic ketoacidosis associated with type 1 diabetes mellitus Disposition: ADMITTED INPATIENT Condition: GUARDED Referrals: PCP,NO (PCP) ROXY SU DO Dec 01, 2021 17:43
[2021-12-01] MEDS ORDERED: ONDANSETRON PF 4 MG/2 ML VIAL. IVP PRN (17:45)
[2021-12-02] MEDS ORDERED: MORPHINE SULFATE 2 MG/ML DISP.SYRIN. IV ONE (02:30)
[2021-12-02 03:36] LABS: CALCIUM 7.8 mg/dL (8.5-10.1); CREATININE 1.1 mg/dL (0.6-1.0); GFR 58.3; POTASSIUM 5.1 mmol/L (3.5-5.1)
[2021-12-02] MEDS ORDERED: POTASSIUM CHLORIDE 10MEQ 100 ML IV PRN ×4 (03:45)
[2021-12-02] MEDS ORDERED: INSULIN REGULAR VIAL 100 UNIT in IV NORMAL SALINE 100ML 100 ML IV PRN (03:45)
[2021-12-02] MEDS ORDERED: IV DEXTROSE 5 %-0.45 % NACL 1,000 ML IV PRN (03:45)
[2021-12-02] MEDS ORDERED: IV NORMAL SALINE 1,000ML 1,000 ML IV SCH (05:30)
[2021-12-02] MEDS ORDERED: IV NORMAL SALINE 100ML 100 ML ONE (08:28)
[2021-12-02 08:33] LABS: BASO # 0.1 x10^3/uL (0.0-0.2); BASO % 1 % (0-3); EOS # 0.1 x10^3/uL (0.0-0.7); EOS % 0 % (0-3); HEMATOCRIT 39.3 % (36.0-47.0); HEMOGLOBIN 12.3 g/dL (12.0-15.5); LYMPH % 19 % (24-48); MEAN CORPUSCULAR HEMOGLOBIN 30 pg (25-35); MEAN CORPUSCULAR HGB CONC 31 g/dL (31-37); MEAN CORPUSCULAR VOLUME 94 fL (79-100); MONO # 2.9 x10^3/uL (0.0-1.1); MONO % 14 % (0-9); NEUT # 13.6 x10^3uL (1.8-7.7); NEUT % 66 % (31-73); PLATELET COUNT 374 x10^3/uL (140-400); RED BLOOD COUNT 4.17 x10^6/uL (3.50-5.40); RED CELL DISTRIBUTION WIDTH 13.6 % (11.5-14.5); WHITE BLOOD COUNT 20.7 x10^3/uL (4.0-11.0)
[2021-12-02 08:40] LABS: ALBUMIN 2.4 g/dL (3.4-5.0); ALBUMIN/GLOBULIN RATIO 0.8 (1.0-1.7); CALCIUM 7.5 mg/dL (8.5-10.1); CREATININE 1.1 mg/dL (0.6-1.0); GFR 58.3; POTASSIUM 3.7 mmol/L (3.5-5.1); TOTAL BILIRUBIN 0.3 mg/dL (0.2-1.0); TOTAL PROTEIN 5.5 g/dL (6.4-8.2)
[2021-12-02 11:10] VITALS: BP 126/78
[2021-12-02 14:38] LABS: % BANDS 1 % (0-9); % LYMPHS 29 % (24-48); % MONOS 6 % (0-10); % SEGS 64 % (35-66); PLT ESTIMATE ADEQUATE (ADEQUATE)
[2021-12-03] MEDS ORDERED: ALBUTEROL SULFATE 2.5 MG/3 ML NEBU. ONE (05:39)
[2021-12-03] MEDS ORDERED: IPRATRPIUM/ALBUTEROL 0.5/2.5MG 3 ML NEBU. ONE (05:41)
== END 2021-12-02 11:15 | disposition admitted as inpatient to this hospital (09) ==
LOC: ER 14:24 → ER HOLD 17:31 → UNDOADMIN 17:31 → ER 12-02 11:15
DX: E10.10 Type 1 diabetes mellitus with ketoacidosis without coma (principal); R11.2 Nausea with vomiting, unspecified; K21.9 Gastro-esophageal reflux disease without esophagitis; Z20.822 Contact with and (suspected) exposure to COVID-19; Z87.891 Personal history of nicotine dependence; Z88.8 Allergy status to other drugs, medicaments and biological substances
CPT/HCPCS: 36415; 80048; 80053; 80307; 81001; 82947; 85007; 85025; 87086; 87428; 96361; 96365; 96366; 96375; 96376; 99285; J1200; J1815; J2270; J7030

== ENCOUNTER 2021-12-03 00:50 | Observation (INO) | payer MEDICAID ==
[2021-12-03] VITALS (17 sets, daily range): BP systolic 97–132; BP diastolic 47–82
[~2021-12-03] VITALS: Ht 172.7 cm; Wt 58.1 kg
--- NOTE | 2021-12-03 01:01 | PHYS DOC ---
Past History Past Medical History: Anxiety, Constipation, Depression, Diabetes, GERD, Ovarian Cyst, Other Additional Past Medical Histor: gastroparesis, substance use disorder Past Surgical History: Other Additional Past Surgical Histo: ovarian cyst;eyex3;earx3;port;chest tubes; bx o f rt ankle Smoking: Cigarettes, Less than 1pk/day, Quit Less Than 1 Year Alcohol Use: None Drug Use: Amphetamine, Marijuana, Methamphetamine General Adult HPI: HPI: ".. Vomiting.. and sugars are up..".." I left yesteray.."." Maybe ...it was today... " Patient is a 31 year old female who presents with above hx and complaints cyclic vomiting, abdomen pain, hyperglycemia, and dehydration. Patient is well-known to the emergency department for frequent ED visits of DKA. Patient currently dry heaving. Patient has past medical history of anxiety, constipation, depression, diabetes, GERD, ovarian cyst, gastroparesis, substance abuse, anxiety, and tobacco use. Patient has had previous surgeries of ovarian cyst, chest tubes, IV ports, ophthalmology and otic surgeries. Review of Systems: Review of Systems: Constitutional: Denies fever or chills Eyes: Denies change in visual acuity HENT: Denies nasal congestion or sore throat Respiratory: Denies cough or shortness of breath Cardiovascular: Complains of tachycardia GI: Complains of epigastric abdominal pain, nausea, vomiting, and constipation. Denies bloody stools or diarrhea : Denies dysuria Musculoskeletal: Denies back pain or joint pain Integument: Denies rash Neurologic: Denies headache, focal weakness or sensory changes Endocrine: Denies polyuria or polydipsia Lymphatic: Denies swollen glands Psychiatric: Complains of depression and anxiety Family History: Family History: Noncontributory to presentation Current Medications: Current Meds: See nursing for home meds Allergies: Allergies: Allergies Coded Allergies Type Severity Reaction Last Updated Verified acetaminophen Allergy Intermediate HIVES 09/16/21 Yes adhesive tape Allergy Intermediate 09/16/21 Yes Physical Exam: PE: Constitutional: in acute distress, ill in appearance. [] HENT: Normocephalic, atraumatic, bilateral external ears normal, oropharynx dry, no oral exudates, nose normal. [] Eyes: PERRLA, EOMI, conjunctiva normal, no discharge. [] Neck: Normal range of motion, no tenderness, supple, no stridor. [] Cardiovascular: Tachycardia heart rate regular rhythm, no murmur []. Bedside monitor shows a sinus tachycardia Lungs & Thorax: Bilateral breath sounds equal apex with scattered wheezes on auscultation [] Abdomen: Bowel sounds creased, soft, generalized tenderness, no masses, no pulsatile masses. Some rebound to epigastric area. Old surgery scars. Distended Skin: Warm, dry, no erythema, no rash. Poor turgor. Tattoos Back: No tenderness, no CVA tenderness. [] Extremities: No tenderness, no cyanosis, no clubbing, ROM intact, no edema. No cording appreciated Neurologic: Alert and oriented X 3, moves all extremities on request, has distal sensory,, no focal deficits noted. [] Psychologic: Affect anxious, judgement normal, mood depressed but denies suicidal ideation EKG: EKG: My interpretation EKG shows a sinus tachycardia at 129 bpm. Bimodal P waves left leads. Strain pattern. Abnormal EKG. Time of EKG is 128 hours [] Radiology/Procedures: Radiology/Procedures: Pending at time of admit- ptl declining to be moved. [] Heart Score: C/O Chest Pain: No HEART Score for Chest Pain: HEART Score for Chest Pain Response (Comments) Value History Slighlty/Non-Suspicious 0 ECG Normal 0 Age < 45 0 Risk Factors 1 or 2 Risk Factors 1 Troponin < Normal Limit 0 Total 1 Risk Factors: Risk Factors: DM, Current or recent (<one month) smoker, HTN, HLP, family history of CAD, obesity. Risk Scores: Score 0 - 3: 2.5% MACE over next 6 weeks - Discharge Home Score 4 - 6: 20.3% MACE over next 6 weeks - Admit for Clinical Observation Score 7 - 10: 72.7% MACE over next 6 weeks - Early Invasive Strategies Course & Med Decision Making: Course & Med Decision Making Pertinent Labs and Imaging studies reviewed. (See chart for details) Pt. currently refusing ABG Discussed presentation, testing and treatment plan with Dr. Pereira.- admit to his service ICU Critical Care 60 min. COVID screen previosly negative on earlier admit. Impression: 1. DKA 2. DM-. Hyperglycemia 544- Critical 3. Leukocytosis 20.8 4. Thrombocytosis 502 5. Hyponatremia 122 6. Hyperkalemia 6.1 Critical 7. Renal Insuf- Bun 29/Crea. 1.3 8. Dehydfration 9. Hypocalceimia 6.1- Critical 10. Drug screen positive for methamphetamine 11. Gastroparesis 12. Cyclic Vomiting [] Dragon Disclaimer: Dragon Disclaimer: This electronic medical record was generated, in whole or in part, using a voice recognition dictation system. Departure Departure: Referrals: PCP,NO (PCP) Annelise Disclaimer This chart was dictated in whole or in part using Voice Recognition software in a busy, high-work load, and often noisy Emergency Department environment. It may contain unintended and wholly unrecognized errors or omissions. Dragon Disclaimer This chart was dictated in whole or in part using Voice Recognition software in a busy, high-work load, and often noisy Emergency Department environment. It may contain unintended and wholly unrecognized errors or omissions. YELENA HENRY MD Dec 03, 2021 01:01
[2021-12-03] MEDS ORDERED: IV NORMAL SALINE 1,000ML 1,000 ML IV SCH (01:30)
[2021-12-03] MEDS ORDERED: PROCHLORPERAZINE 10 MG/2 ML VIAL. IM ONE (01:30)
[2021-12-03] MEDS ORDERED: diphenhydrAMINE 50 MG/ML VIAL IM ONE (01:30)
[2021-12-03 01:47] LABS: BARBITURATES NEG (NEG); BENZODIAZEPINES NEG (NEG); CANNABINOIDS NEG (NEG); COCAINE NEG (NEG); METHADONE NEG (NEG); OPIATES NEG (NEG); PHENCYCLIDINE NEG (NEG)
[2021-12-03 01:50] LABS: BILIRUBIN,URINE NEG (NEG); CLARITY,URINE CLEAR; COLOR,URINE YELLOW; GLUCOSE,URINE 500 mg/dL (NEG)
[2021-12-03 01:51] LABS: BACTERIA,URINE 0 /HPF (0-FEW); NITRITE,URINE NEG (NEG); SQUAMOUS EPITHELIAL CELL,UR FEW /LPF; UROBILINOGEN,URINE 0.2 mg/dL (0.2 mg/dL)
[2021-12-03 01:52] LABS: AMPHETAMINE/METHAMPHETAMINE POS (NEG)
[2021-12-03 02:16] LABS: BASO # 0.1 x10^3/uL (0.0-0.2); BASO % 1 % (0-3); EOS % 0 % (0-3); HEMATOCRIT 42.6 % (36.0-47.0); HEMOGLOBIN 13.2 g/dL (12.0-15.5); LYMPH # 1.6 x10^3/uL (1.0-4.8); LYMPH % 8 % (24-48); MEAN CORPUSCULAR HEMOGLOBIN 30 pg (25-35); MEAN CORPUSCULAR HGB CONC 31 g/dL (31-37); MEAN CORPUSCULAR VOLUME 95 fL (79-100); MONO # 1.4 x10^3/uL (0.0-1.1); MONO % 7 % (0-9); NEUT # 17.6 x10^3uL (1.8-7.7); NEUT % 85 % (31-73); PLATELET COUNT 502 x10^3/uL (140-400); RED BLOOD COUNT 4.48 x10^6/uL (3.50-5.40); RED CELL DISTRIBUTION WIDTH 14.2 % (11.5-14.5); WHITE BLOOD COUNT 20.8 x10^3/uL (4.0-11.0)
[2021-12-03] MEDS ORDERED: diphenhydrAMINE 50 MG/ML VIAL IV ONE (02:30)
[2021-12-03] MEDS ORDERED: PROCHLORPERAZINE 10 MG/2 ML VIAL. IV ONE (02:30)
[2021-12-03] MEDS ORDERED: INSULIN REGULAR VIAL 100 UNIT in IV NORMAL SALINE 100ML 100 ML IV PRN ×3 (02:45→07:00)
[2021-12-03 02:47] LABS: ALBUMIN 3.2 g/dL (3.4-5.0); ALK PHOS 111 U/L (46-116); ALT (SGPT) 100 U/L (14-59); AST (SGOT) 27 U/L (15-37); BLOOD UREA NITROGEN 29 mg/dL (7-20); CALCIUM 8.4 mg/dL (8.5-10.1); CHLORIDE 88 mmol/L (98-107); CREATININE 1.3 mg/dL (0.6-1.0); DIRECT BILIRUBIN 0.1 mg/dL (0.0-0.2); GFR 48.1; LIPASE 22 U/L (73-393); MAGNESIUM 2.2 mg/dL (1.8-2.4); SODIUM 122 mmol/L (136-145); TOTAL BILIRUBIN 0.5 mg/dL (0.2-1.0); TOTAL PROTEIN 6.4 g/dL (6.4-8.2)
[2021-12-03 02:51] LABS: ANION GAP 29 (6-14); CARBON DIOXIDE < 5 mmol/L (21-32); GLUCOSE 544 mg/dL (70-99); POTASSIUM 6.1 mmol/L (3.5-5.1)
[2021-12-03] MEDS ORDERED: KETOROLAC 30 MG/ML VIAL. IVP ONE (03:00)
[2021-12-03] MEDS ORDERED: ONDANSETRON PF 4 MG/2 ML VIAL. IVP PRN (03:00)
[2021-12-03] MEDS ORDERED: IV NORMAL SALINE 1,000ML 1,000 ML IV ONE ×2 (03:15)
[2021-12-03] MEDS ORDERED: SODIUM BICARB ADULT 8.4% 50 MEQ/50 ML DISP.SYRIN. IV ONE (04:00)
[2021-12-03] MEDS ORDERED: CALCIUM CHLORIDE 1,000 MG in IV NORMAL SALINE 50ML 50 ML IV ONE (04:00)
--- NOTE | 2021-12-03 04:39 | EKG ---
[address] [address] Test Date: 2021-12-03 Test Time: 01:28:23 Pat Name: CHALO RAYMUNDO Department: Room: [facility] 1 Gender: F Editing Internship: REI : 1990 Requested By: YELENA HENRY Order Number: [id number] Reading MD: Mik Flowers Measurements Intervals Robinson Rate: 129 P: 28 WY: 106 QRS: 75 QRSD: 84 T: 26 QT: 278 QTc: 409 Interpretive Statements SINUS TACHYCARDIA LEFT ATRIAL ABNORMALITY NON SPECIFIC ST-T WAVE CHANGES Electronically Signed On 12-04-2021 15:53:48 SAFETY TECH by Mik Flowers
[2021-12-03] MEDS: IPRATRPIUM/ALBUTEROL 0.5/2.5MG 3 ML NEBU. NEB SCH ×2 (06:17→06:20)
[2021-12-03] MEDS ORDERED: IV NORMAL SALINE 1,000ML 1,000 ML IV PRN (07:00)
[2021-12-03] MEDS ORDERED: IV DEXTROSE 5 %-0.45 % NACL 1,000 ML IV PRN (07:00)
[2021-12-03] MEDS: FAMOTIDINE 20 MG/2 ML VIAL IVP SCH ×2 (10:41→20:35)
[2021-12-03 13:28] LABS: CALCIUM 6.8 mg/dL (8.5-10.1); CREATININE 0.8 mg/dL (0.6-1.0); GFR 84.2
[2021-12-03 13:31] LABS: POTASSIUM 3.2 mmol/L (3.5-5.1)
[2021-12-03] MEDS ORDERED: DEXTROSE 50% 25 GM / 50ML DISP.SYRIN. IV PRN (14:30)
[2021-12-03] MEDS ORDERED: CALCIUM GLUCONATE 1,000 MG in IV NORMAL SALINE 100ML 100 ML IV ONE (14:30)
--- NOTE | 2021-12-03 14:58 | RAD ---
EXAM: Chest, single view. HISTORY: Leukocytosis. COMPARISON: 05/06/2021 FINDINGS: A frontal view of the chest is obtained. There is no infiltrate, pleural effusion or pneumo thorax. The heart is normal in size. IMPRESSION: No acute pulmonary finding. Electronically signed by: Nisa Parikh MD (12/03/2021 2:55 PM) [id number]
[2021-12-03] MEDS: POTASSIUM CL 40MEQ IN 0.9%NACL 1,000 ML IV SCH (15:14)
[2021-12-03] MEDS ORDERED: ONDANSETRON ODT 4 MG TAB.RAPDIS PO PRN (15:15)
--- NOTE | 2021-12-03 15:28 | HP ---
DATE OF SERVICE: 12/03/2021 ADMIT DATE: 12/03/2021 HISTORY OF PRESENT ILLNESS: This is a 31-year-old female patient who yet again came to the Emergency Room with a complaint of recurrent bouts of vomiting and markedly elevated blood sugar. She also complained of abdominal pain. The patient obviously is well known to the Emergency Department for frequent Emergency Department visits for DKA. She was dry heaving on arrival and was extensively investigated in the Emergency Room. Her initial lab work showed a white cell count of 20,800, hemoglobin 13, hematocrit 42, MCV 95 and platelet count of 502,000. Her chemistry showed a serum sodium was 122, potassium 6.1, chloride 88, bicarbonate 5, anion gap of 29, BUN 29 and creatinine 1.3. Estimated GFR was 48 mL per minute. Her glucose was 544, her calcium was 8.4 and magnesium 2.2. Total bilirubin, AST, ALT and alkaline phosphatase slightly elevated. Her CK was 41 and her total protein was 6.4 and albumin 3.2. Her prothrombin time/INR was 1. Urinalysis showed the urine was yellow clear with a pH of 5, specific gravity of 1.021. There is a small amount of protein, large amount of glucose, large amount of ketones, moderate amount of blood, negative for nitrite, leukocyte esterase, 1-2 rbcs, 1-4 wbcs and no bacteria. Her urine test was negative and her toxic screen was positive for amphetamine and methamphetamine. No x-rays were done. The patient was diagnosed with again diabetic ketoacidosis, was started on insulin drip and IV fluid and was admitted to the ICU to continue on DKA protocol. PAST MEDICAL HISTORY: Significant for type 1 diabetes mellitus with multiple episodes of diabetic ketoacidosis due to noncompliance, depression, anxiety, gastroesophageal reflux disease, chronic constipation, gastroparesis and polysubstance abuse disorder. PAST SURGICAL HISTORY: Significant, she had ovarian cyst removal, eye surgery x 3, ear surgery x3 and Port-A-Cath catheter placement and removal. FAMILY HISTORY: Noncontributory. SOCIAL HISTORY: She apparently quit smoking less than 8 years ago. Does not drink alcohol; however, she continue to abuse amphetamine, marijuana and methamphetamine. ALLERGIES: She is allergic to ACETAMINOPHEN and ADHESIVE TAPE. MEDICATIONS: She is currently on the following medications: Metoclopramide 10 mg 4 times a day. She is on NovoLog insulin 0-9 units before meals and Lantus insulin 20 units subcutaneously twice a day. PHYSICAL EXAMINATION: GENERAL: On arrival to the Emergency Room, the patient was clearly tachypneic, pale, not jaundiced, cyanosed, no lymphadenopathy, no thyromegaly, no jugular venous distention. No limb edema. VITAL SIGNS: Her heart rate was 130, blood pressure was 140/82, temperature was 97.8, respiratory rate was 28 and oxygen saturation was 100% on room air. HEAD, EYES, EARS, NOSE AND THROAT: Normocephalic, atraumatic. NECK: Supple. HEART: Normal first and second heart sounds. No gallop, rub or murmur. CHEST: Clear to auscultation, no crepitation or rhonchi. ABDOMEN: Scaphoid, soft, nontender. NEUROLOGIC: She was grossly intact. LABORATORY DATA: Her lab work on arrival showed a white cell count of 20,800, hemoglobin 13.2, hematocrit 42, MCV 95 and platelet count [id number]. Her chemistry showed a serum sodium was 122, potassium 6.1, chloride 88, bicarbonate less than 5, anion gap of 29, BUN 29, creatinine 1.3. Estimated GFR was 48 mL per minute. Her glucose was 544, calcium was 8.4, magnesium was 2.2. Total bilirubin, AST, ALT, alkaline phosphatase are normal. CK was 41 and total protein 6.4, albumin was 3.2. Her toxic screen was positive for amphetamine and methamphetamine. ASSESSMENT: The patient was admitted with diagnoses of severe diabetic ketoacidosis, leukocytosis, thrombocytosis, dilutional hyponatremia, hyperkalemia, mild renal impairment, hypocalcemia, methamphetamine abuse, gastroparesis and cyclic vomiting. HOLLIE DR: Alyssa TID: [id number]
[2021-12-03] MEDS: INSULIN LISPRO 300 UNITS/3 ML VIAL. SQ SCH (17:00)
[2021-12-03] MEDS: METOCLOPRAMIDE 10 MG TABLET PO SCH ×2 (17:00→20:36)
[2021-12-03] MEDS: CALCIUM ACETATE 667 MG CAPSULE PO SCH (20:36)
[2021-12-03] MEDS: INSULIN GLARGINE SYRINGE. SQ SCH (20:36)
[2021-12-04] VITALS (18 sets, daily range): BP systolic 97–159; BP diastolic 52–106
[2021-12-04] MEDS: POTASSIUM CL 40MEQ IN 0.9%NACL 1,000 ML IV SCH ×2 (01:03→12:11)
[2021-12-04 06:53] LABS: HEMATOCRIT 26.7 % (36.0-47.0); RED BLOOD COUNT 2.98 x10^6/uL (3.50-5.40); RED CELL DISTRIBUTION WIDTH 13.7 % (11.5-14.5); WHITE BLOOD COUNT 7.5 x10^3/uL (4.0-11.0)
[2021-12-04 07:16] LABS: ALBUMIN 1.9 g/dL (3.4-5.0); ALBUMIN/GLOBULIN RATIO 0.8 (1.0-1.7); CREATININE 0.8 mg/dL (0.6-1.0); GFR 84.2; POTASSIUM 4.1 mmol/L (3.5-5.1); TOTAL BILIRUBIN 0.4 mg/dL (0.2-1.0); TOTAL PROTEIN 4.4 g/dL (6.4-8.2)
[2021-12-04] MEDS: INSULIN LISPRO 300 UNITS/3 ML VIAL. SQ SCH ×4 (08:01→17:00)
[2021-12-04] MEDS: METOCLOPRAMIDE 10 MG TABLET PO SCH ×4 (08:01→22:21)
[2021-12-04] MEDS: FAMOTIDINE 20 MG/2 ML VIAL IVP SCH ×2 (08:01→22:21)
[2021-12-04] MEDS: CHOLECALCIFEROL (VITAMIN D3) 1,000 UNIT TABLET PO SCH (08:01)
[2021-12-04] MEDS: CALCIUM ACETATE 667 MG CAPSULE PO SCH ×3 (08:02→22:21)
[2021-12-04] MEDS ORDERED: KETOROLAC 30 MG/ML VIAL. IVP ONE ×2 (08:15→21:30)
[2021-12-04] MEDS ORDERED: IV NORMAL SALINE 1,000ML 1,000 ML IV SCH (08:15)
[2021-12-04] MEDS: INSULIN GLARGINE SYRINGE. SQ SCH ×2 (08:42→22:31)
[2021-12-04 10:37] LABS: CREATININE 0.9 mg/dL (0.6-1.0); GFR 73.5; POTASSIUM 3.8 mmol/L (3.5-5.1)
[2021-12-04 15:09] LABS: CREATININE 0.8 mg/dL (0.6-1.0); GFR 84.2; POTASSIUM 3.4 mmol/L (3.5-5.1)
[2021-12-04] MEDS ORDERED: POTASSIUM CHLORIDE 20 MEQ TABLET.ER. PO ONE ×2 (16:45→17:45)
[2021-12-04 18:44] LABS: CALCIUM 7.3 mg/dL (8.5-10.1); CREATININE 0.7 mg/dL (0.6-1.0); GFR 98.3; POTASSIUM 3.5 mmol/L (3.5-5.1)
--- NOTE | 2021-12-04 19:43 | PN ---
DATE: 12/04/2021 SUBJECTIVE: The patient is resting, slightly propped up in bed, in no apparent distress. She is definitely more awake, alert. No complaints offered. She is eating and drinking. No nausea, no vomiting. Did complain of back pain, was given Toradol. PHYSICAL EXAMINATION: GENERAL: When I examined her this afternoon, she was somewhat pale, but not jaundiced or cyanosed. No lymphadenopathy, no thyromegaly, no jugular venous distention. No limb edema. VITAL SIGNS: Her heart rate was 111, blood pressure was 148/99, temperature was 98.2, respiratory rate was 16 and oxygen saturation was 96% on room air. HEAD, EYES, EARS, NOSE, AND THROAT: Normocephalic, atraumatic. NECK: Supple. HEART: Showed normal first and second heart sounds. No gallop, rub or murmur. CHEST: Clear to auscultation. No crepitation or rhonchi. ABDOMEN: Distended, soft, nontender. NEUROLOGIC: She is grossly intact. Her intake over the last 24 hours was incompletely recorded. LABORATORY DATA: As of this morning, her serum sodium was 131, potassium 3.8, chloride 100, bicarbonate 19, anion gap of 12, BUN 13, creatinine 0.9. Estimated GFR was 73 mL per minute. Her glucose was 344 and calcium was 7. White cell count is down to 7500, hemoglobin 9, hematocrit 27, MCV 89 and platelet count 323,000. ASSESSMENT: 1. Diabetic ketoacidosis, resolved. The anion gap has closed. 2. Type 1 diabetes mellitus with blood sugars suboptimally controlled. 3. Hyponatremia, resolved. 4. Hypokalemia, resolved. 5. Acute kidney injury has resolved. PLAN: My plan is to increase her Lantus to 30 units and add 5 units of Lantus insulin scheduled and she will be discharged home tomorrow. JOSÉ/ELZA DR: Alyssa TID: [id number]
--- NOTE | 2021-12-04 23:31 | PN ---
DATE: 12/03/2021 SUBJECTIVE: The patient is resting, slightly propped up, lethargic, but arousable, continued to complain of generalized weakness, has no further episodes of nausea and vomiting. She was able to eat and drink. She was a very difficult for access and difficult to draw any labs or put an IV line, so I ended up putting a triple lumen femoral line without difficulty. PHYSICAL EXAMINATION: GENERAL: When I examined her, she was pale, cachectic, but not jaundiced, cyanosed, or thyromegaly. No jugular venous distention. No limb edema. VITAL SIGNS: Her heart rate was 103, blood pressure is 130/82, temperature was 98.1, respiratory rate was 14 and oxygen saturation was 100%. HEAD, EYES, EARS, NOSE, AND THROAT: Normocephalic, atraumatic. NECK: Supple. HEART: Showed normal first and second heart sounds. No gallop, rub or murmur. CHEST: Clear to auscultation, no crepitation or rhonchi. ABDOMEN: Distended, soft, nontender. NEUROLOGIC: She was lethargic, but arousable. All other cranial nerves intact. She moves extremities without difficulty. Her intake and output are incompletely recorded. LABORATORY DATA: She has no lab work done this morning in terms of CBC, however, her sodium this morning was 133, potassium 3.2, chloride 105, bicarbonate 16, anion gap of 12, BUN 23, creatinine 0.8. Estimated GFR was 84 mL per minute. Her glucose 139, calcium was 6.8. ASSESSMENT: 1. Severe diabetic ketoacidosis . 2. Leukocytosis and thrombocytosis. 3. Mild kidney impairment and dehydration. 4. Hyperkalemia has resolved. In fact, she is hyponatremic, hypokalemic. She has also hypocalcemia for which we started her on calcium citrate 1300 mg 3 times a day and vitamin D 1000 International Units once a day. PLAN: I reconciled all her medications in the form of ____ that she is now on sliding scale insulin before meals and Lantus insulin 20 units twice a day. She is also on metoclopramide as a prokinetic. ISAAC/DASHA DR: Alyssa TID: [id number]
[2021-12-04 23:45] LABS: CREATININE 0.6 mg/dL (0.6-1.0); GFR 117.4; POTASSIUM 3.7 mmol/L (3.5-5.1)
[2021-12-05 06:30] VITALS: BP 131/75
[2021-12-05 07:44] LABS: CALCIUM 7.4 mg/dL (8.5-10.1); CREATININE 0.7 mg/dL (0.6-1.0); GFR 98.3; POTASSIUM 4.3 mmol/L (3.5-5.1)
[2021-12-05] MEDS ORDERED: KETOROLAC 30 MG/ML VIAL. IVP ONE (07:45)
[2021-12-05] MEDS: INSULIN LISPRO 300 UNITS/3 ML VIAL. SQ SCH ×5 (08:24→12:38)
[2021-12-05] MEDS: CHOLECALCIFEROL (VITAMIN D3) 1,000 UNIT TABLET PO SCH (08:26)
[2021-12-05] MEDS: INSULIN GLARGINE SYRINGE. SQ SCH (08:26)
[2021-12-05] MEDS: FAMOTIDINE 20 MG/2 ML VIAL IVP SCH (08:26)
[2021-12-05] MEDS: CALCIUM ACETATE 667 MG CAPSULE PO SCH ×2 (08:27→12:42)
[2021-12-05] MEDS: METOCLOPRAMIDE 10 MG TABLET PO SCH ×2 (08:28→12:41)
[2021-12-05 11:54] VITALS: BP 145/88
--- NOTE | 2021-12-05 22:08 | DS ---
DATE OF DISCHARGE: 12/05/2021 HOSPITAL COURSE: The patient was admitted yet again with another episode of diabetic ketoacidosis. Her blood sugar on arrival was extremely high at 544. She has hyperkalemia, dilutional hyponatremia and acute kidney injury that have all resolved. Her anion gap was 29 that was closed and today's anion gap was only 6. LABORATORY DATA: Her lab work this morning showed that her sodium has normalized at 134, potassium 4.3, chloride 102, bicarbonate 26, anion gap of 6, BUN 11, creatinine 0.7. Her blood sugar is well controlled and her white cell count came down to 7500, hemoglobin 9, hematocrit 26, MCV 89 and platelet count 323,000. PHYSICAL EXAMINATION: GENERAL: When I examined her, she looked well and was clearly in no apparent respiratory distress. She is pale, not jaundiced, cyanosed or thyromegaly. No jugular venous distention. No limb edema. VITAL SIGNS: Her heart rate was 111, blood pressure was 145/88, temperature was 98.3, respiratory rate was 18 and oxygen saturation was 98% on room air. Rest of clinical exam stable. DISCHARGE MEDICATIONS: She was discharged home to continue on Lantus insulin 20 units twice a day and NovoLog insulin as insulin sliding scale. She continues also on metoclopramide 10 mg before meals and bedtime, ondansetron and prochlorperazine as needed for nausea and vomiting. FINAL DISCHARGE DIAGNOSES: 1. Diabetic ketoacidosis. 2. Leukocytosis and thrombocytosis, resolved. 3. Mild kidney impairment and dehydration, resolved. 4. Hyperkalemia has resolved as well as hyponatremia and hypocalcemia, all have resolved. JOSÉ/JUAN FRANCISCO/CONNOR DR: Alyssa TID: [id number]
== END 2021-12-05 16:05 | disposition home or self-care (01) ==
LOC: ER 00:50 → ICU 03:00 → 1 SOUTH 12-04 17:04
PROVIDERS: ADMIT Internal Medicine; ATTEND Internal Medicine
DX: E10.10 Type 1 diabetes mellitus with ketoacidosis without coma (principal); D72.829 Elevated white blood cell count, unspecified; D75.839 Thrombocytosis, unspecified; E87.1 Hypo-osmolality and hyponatremia; E87.5 Hyperkalemia; E87.6 Hypokalemia; E83.51 Hypocalcemia; E86.0 Dehydration; E10.43 Type 1 diabetes mellitus with diabetic autonomic (poly)neuropathy; K31.84 Gastroparesis; N17.9 Acute kidney failure, unspecified; F41.9 Anxiety disorder, unspecified; F32.9 Major depressive disorder, single episode, unspecified; R11.15 Cyclical vomiting syndrome unrelated to migraine; F15.10 Other stimulant abuse, uncomplicated; Z79.4 Long term (current) use of insulin; Z87.891 Personal history of nicotine dependence; Z91.19 Patient's noncompliance with other medical treatment and regimen; Z79.899 Other long term (current) drug therapy; Z98.890 Other specified postprocedural states
CPT/HCPCS: 36415; 71045; 80048; 80053; 80076; 80307; 81001; 81025; 82550; 82947; 83690; 83735; 83880; 84484; 85025; 85027; 85610; 93005; 96361; 96365; 96367; 96372; 96375; 96376; 99291; G0378; J0610; J0780; J1200; J1815; J1885; J3490; J7030; G0379

== ENCOUNTER 2021-12-07 13:53 | Emergency (ER) | payer MEDICAID ==
[~2021-12-07] VITALS: Ht 172.7 cm; Wt 58.2 kg
[2021-12-07] MEDS ORDERED: IV NORMAL SALINE 1,000ML 1,000 ML IV ONE ×2 (14:45→16:30)
[2021-12-07] MEDS ORDERED: ONDANSETRON PF 4 MG/2 ML VIAL. IVP ONE (14:45)
[2021-12-07 15:13] LABS: CALCIUM 7.9 mg/dL (8.5-10.1); CREATININE 0.5 mg/dL (0.6-1.0); GFR 144.9; POTASSIUM 3.9 mmol/L (3.5-5.1)
[2021-12-07 15:19] LABS: ALBUMIN 2.5 g/dL (3.4-5.0); ALBUMIN/GLOBULIN RATIO 0.9 (1.0-1.7); TOTAL BILIRUBIN 0.4 mg/dL (0.2-1.0); TOTAL PROTEIN 5.4 g/dL (6.4-8.2)
[2021-12-07 15:24] LABS: BASO # 0.1 x10^3/uL (0.0-0.2); BASO % 1 % (0-3); EOS # 0.1 x10^3/uL (0.0-0.7); EOS % 1 % (0-3); HEMATOCRIT 33.8 % (36.0-47.0); HEMOGLOBIN 11.1 g/dL (12.0-15.5); LYMPH # 1.3 x10^3/uL (1.0-4.8); LYMPH % 21 % (24-48); MEAN CORPUSCULAR HEMOGLOBIN 29 pg (25-35); MEAN CORPUSCULAR HGB CONC 33 g/dL (31-37); MEAN CORPUSCULAR VOLUME 89 fL (79-100); MONO # 0.6 x10^3/uL (0.0-1.1); MONO % 9 % (0-9); NEUT # 4.4 x10^3uL (1.8-7.7); NEUT % 68 % (31-73); PLATELET COUNT 345 x10^3/uL (140-400); RED BLOOD COUNT 3.79 x10^6/uL (3.50-5.40); RED CELL DISTRIBUTION WIDTH 13.4 % (11.5-14.5); WHITE BLOOD COUNT 6.5 x10^3/uL (4.0-11.0)
--- NOTE | 2021-12-07 15:27 | RAD ---
XR CHEST 1V History: Cough and bodyaches Comparison: 12/03/2021, 11/24/2021, 07/22/2021 Technique: Portable AP radiograph of the chest. Findings: There are hazy bilateral airspace opacities which appear similar to recent comparisons however new fr om Jessi radiograph. No pleural effusion or pneumothorax. Cardiac mediastinal silhouette and pulm onary vasculature are within normal limits. Osseous structures and soft tissues are unremarkable Impression: 1. Hazy bilateral airspace opacities may represent pneumonia in the appropriate clinical setting. Electronically signed by: Rick Arizmendi MD (12/07/2021 3:25 PM) [id number]
[2021-12-07 15:44] LABS: INFLUENZA A PATIENT NEGATIVE (NEGATIVE); INFLUENZA B PATIENT NEGATIVE (NEGATIVE)
[2021-12-07] MEDS ORDERED: IV NORMAL SALINE 50ML 50 ML ONE (16:42)
[2021-12-07] MEDS ORDERED: cefTRIAXone SODIUM 1 GM VIAL ONE (16:42)
[2021-12-07] MEDS ORDERED: AZITHROMYCIN 250 MG TABLET. PO ONE (16:45)
--- NOTE | 2021-12-07 18:07 | PHYS DOC ---
Past History Past Medical History: Anxiety, Constipation, Depression, Diabetes, GERD, Ovarian Cyst, Other Additional Past Medical Histor: gastroparesis, substance use disorder (CRUZ ORTIZ APRN) Past Surgical History: Other Additional Past Surgical Histo: ovarian cyst;eyex3;earx3;port;chest tubes; bx of rt ankle (CRUZ ORTIZ APRN) Smoking: Cigarettes, Less than 1pk/day, Quit Less Than 1 Year Alcohol Use: None Drug Use: Amphetamine, Marijuana, Methamphetamine (CRUZ ORTIZ APRN) General Adult EDM: Chief Complaint: MULTIPLE COMPLAINTS HPI: HPI: Patient is a 31-year-old female that is well-known to the emergency department she presents today with nausea and vomiting and overall body pain. Patient was discharged from this facility on December 05, 2021 after being admitted for DKA, she states since she has been home she has been taking her medications as prescribed she said the last 24 hours she started experiencing body aches, nausea and vomiting. Patient does have a past medical history of insulin- dependent diabetes, gastroparesis. (CRUZ ORTIZ APRN) Review of Systems: Review of Systems: Constitutional: Denies fever or chills Eyes: Denies change in visual acuity HENT: Denies nasal congestion or sore throat Respiratory: Denies cough or shortness of breath Cardiovascular: Denies chest pain or edema GI: Abdominal pain, nausea, vomiting a : Denies dysuria Musculoskeletal: Body aches Integument: Denies rash Neurologic: Denies headache, focal weakness or sensory changes Endocrine: Denies polyuria or polydipsia Lymphatic: Denies swollen glands Psychiatric: Denies depression or anxiety (CRUZ ORTIZ SPINE NURSE) Current Medications: Current Meds: Current Medications Medications (Trade) Dose Ordered Sig/Chevy Start Time Stop Time Status Last Admin Dose Admin Azithromycin (Zithromax) 500 mg 1X ONCE 12/07/21 16:45 12/07/21 16:46 DC 12/07/21 16:43 500 MG Ceftriaxone Sodium 1 gm/ Sodium Chloride 50 ml @ 100 mls/hr 1X ONCE 12/07/21 16:45 12/07/21 17:14 DC 12/07/21 16:43 100 MLS/HR Ceftriaxone Sodium (Rocephin) 1 gm STK-MED ONCE 12/07/21 16:42 12/07/21 16:42 DC Ondansetron HCl (Zofran) 4 mg 1X ONCE 12/07/21 14:45 12/07/21 14:47 DC 12/07/21 15:13 4 MG Sodium Chloride 50 ml @ As Directed STK-MED ONCE 12/07/21 16:42 12/07/21 16:42 DC (CRUZ ORTIZ APRN) Allergies: Allergies: Allergies Coded Allergies Type Severity Reaction Last Updated Verified acetaminophen Allergy Intermediate HIVES 09/16/21 Yes adhesive tape Allergy Intermediate 09/16/21 Yes (CRUZ ORTIZ APRN) Physical Exam: PE: Constitutional: Moderate distress, ill-appearing[] HENT: Normocephalic, atraumatic, bilateral external ears normal, oropharynx moist, no oral exudates, nose normal. [] Eyes: PERRLA, EOMI, conjunctiva normal, no discharge. [] Neck: Normal range of motion, no tenderness, supple, no stridor. [] Cardiovascular:Heart rate regular rhythm, no murmur [] Lungs & Thorax: Bilateral breath sounds clear to auscultation [] Abdomen: Bowel sounds normal, diffuse tenderness with palpation Skin: Warm, dry, no erythema, no rash. [] Back: No tenderness, no CVA tenderness. [] Extremities: No tenderness, no cyanosis, no clubbing, ROM intact, no edema. [] Neurologic: Alert and oriented X 3, normal motor function, normal sensory function, no focal deficits noted. [] Psychologic: Affect flat, judgement normal, mood normal. [] (CRUZ ORTIZ APRN) Current Patient Data: Labs: Laboratory Tests Test 12/07/21 14:30 12/07/21 14:35 12/07/21 14:47 Influenza Type A (Rapid) Negative (NEGATIVE) Influenza Type B (Rapid) Negative (NEGATIVE) SARS-CoV-2 Antigen (Rapid) Negative (NEGATIVE) Glucose (Fingerstick) 252 mg/dL (70-99) H White Blood Count 6.5 x10^3/uL (4.0-11.0) Red Blood Count 3.79 x10^6/uL (3.50-5.40) Hemoglobin 11.1 g/dL (12.0-15.5) L Hematocrit 33.8 % (36.0-47.0) L Mean Corpuscular Volume 89 fL (79-100) Mean Corpuscular Hemoglobin 29 pg (25-35) Mean Corpuscular Hemoglobin Concent 33 g/dL (31-37) Red Cell Distribution Width 13.4 % (11.5-14.5) Platelet Count 345 x10^3/uL (140-400) Neutrophils (%) (Auto) 68 % (31-73) Lymphocytes (%) (Auto) 21 % (24-48) L Monocytes (%) (Auto) 9 % (0-9) Eosinophils (%) (Auto) 1 % (0-3) Basophils (%) (Auto) 1 % (0-3) Neutrophils # (Auto) 4.4 x10^3uL (1.8-7.7) Lymphocytes # (Auto) 1.3 x10^3/uL (1.0-4.8) Monocytes # (Auto) 0.6 x10^3/uL (0.0-1.1) Eosinophils # (Auto) 0.1 x10^3/uL (0.0-0.7) Basophils # (Auto) 0.1 x10^3/uL (0.0-0.2) Sodium Level 133 mmol/L (136-145) L Potassium Level 3.9 mmol/L (3.5-5.1) Chloride Level 96 mmol/L (98-107) L Carbon Dioxide Level 27 mmol/L (21-32) Anion Gap 10 (6-14) Blood Urea Nitrogen 14 mg/dL (7-20) Creatinine 0.5 mg/dL (0.6-1.0) L Estimated GFR (Cockcroft-Gault) 144.9 BUN/Creatinine Ratio 28 (6-20) H Glucose Level 233 mg/dL (70-99) H Calcium Level 7.9 mg/dL (8.5-10.1) L Total Bilirubin 0.4 mg/dL (0.2-1.0) Aspartate Amino Transferase (AST) 144 U/L (15-37) H Alanine Aminotransferase (ALT) 155 U/L (14-59) H Alkaline Phosphatase 78 U/L (46-116) Total Protein 5.4 g/dL (6.4-8.2) L Albumin 2.5 g/dL (3.4-5.0) L Albumin/Globulin Ratio 0.9 (1.0-1.7) L Lipase 17 U/L (73-393) L Vital Signs: Vital Signs Date Time Temp Pulse Resp B/P (MAP) Pulse Ox O2 Delivery O2 Flow Rate FiO2 12/07/21 18:38 96 16 135/96 (109) 99 Room Air 12/07/21 18:09 90 16 139/98 (112) 98 Room Air 12/07/21 17:39 92 14 137/84 (101) 98 Room Air 12/07/21 17:08 110 14 138/80 (99) 99 Room Air 12/07/21 16:38 96 14 144/99 (114) 98 Room Air 12/07/21 16:09 94 14 152/98 (116) 98 Room Air 12/07/21 15:08 94 18 144/96 (112) 96 Room Air 12/07/21 14:14 97.9 100 19 161/109 (126) 97 Room Air Vital Signs Date Time Temp Pulse Resp B/P (MAP) Pulse Ox O2 Delivery O2 Flow Rate FiO2 12/07/21 14:14 97.9 100 19 161/109 (126) 97 Room Air (CRUZ ORTIZ APRN) EKG: EKG: [] (CRUZ ORTIZ SPINE NURSE) Radiology/Procedures: Radiology/Procedures: REASON: cough and body aches PROCEDURE: CHEST AP ONLY XR CHEST 1V History: Cough and bodyaches Comparison: 12/03/2021, 11/24/2021, 07/22/2021 Technique: Portable AP radiograph of the chest. Findings: There are hazy bilateral airspace opacities which appear similar to recent comparisons however new from July radiograph. No pleural effusion or pneumothorax. Cardiac mediastinal silhouette and pulmonary vasculature are within normal limits. Osseous structures and soft tissues are unremarkable Impression: 1. Hazy bilateral airspace opacities may represent pneumonia in the appropriate clinical setting. Electronically signed by: Rick Arizmendi MD (12/07/2021 3:25 PM) [id number][] (CRUZ ORTIZ APRN) Heart Score: C/O Chest Pain: N/A Risk Factors: Risk Factors: DM, Current or recent (<one month) smoker, HTN, HLP, family history of CAD, obesity. Risk Scores: Score 0 - 3: 2.5% MACE over next 6 weeks - Discharge Home Score 4 - 6: 20.3% MACE over next 6 weeks - Admit for Clinical Observation Score 7 - 10: 72.7% MACE over next 6 weeks - Early Invasive Strategies (CRUZ ORTIZ APRN) Course & Med Decision Making: Course & Med Decision Making Pertinent Labs and Imaging studies reviewed. (See chart for details) 1845 did review radiological and laboratory results with patient. Did inform her she has some to atypical pneumonia on her chest x-ray and will treat her on an outpatient basis for this, patient will be given a prescription for Augmentin and Zithromax to be taken. Patient will also be given a prescription for Zofra n for nausea and vomiting. Did caution patient with using Zofran because it may cause constipation. Also informed patient she will need to check her blood sugar on a regular basis because the antibiotics will increase her blood sugar, also she will need to stick with a clear liquid diet for the next 24 hours and then advance as tolerated. Patient was informed that her COVID-19 was negative but that was only the rapid, that if she continues to have symptoms she may want to follow-up on an outpatient basis with a local pharmacy that is doing PCR testing for COVID for further testing for COVID-19. Patient verbalized understanding of all the discharge instruction and is agreeable with the plan of care. (CRUZ ORTIZ APRN) Course & Med Decision Making I was the Attending physician on the above date of service of this patient. This patient was evaluated, examined, treated, and dispositioned from the emergency department by the mid-level practitioner. I reviewed entirety of case and ER work-up with midlevel practitioner and agreed to plan of care as stated Electronically signed, Brenda Baker DO (BRENDA BAKER DO) Annelise Disclaimer: Annelise Disclaimer: This electronic medical record was generated, in whole or in part, using a voice recognition dictation system. (CRUZ ORTIZ APRN) Departure Departure: Impression: Primary Impression: Nausea and vomiting Qualified Codes: R11.2 - Nausea with vomiting, unspecified Additional Impression: Atypical pneumonia Disposition: HOME / SELF CARE / HOMELESS Condition: STABLE Referrals: PCP,NO (PCP) PERNELL BECKER MD Patient Instructions: Clear Liquid Diet, Nausea and Vomiting, [id number], Pneumonia, Adult Additional Instructions: Augmentin take 1 tablet twice daily for 5 days Zithromax take as directed take 1 tablet daily for 4 days starting tomorrow12/08/2021 Clear liquid diet for the next 24 hours then advance to a brat diet which is bananas, applesauce, rice, toast, and plain mashed potatoes. Then advance as tolerated Check your blood sugars frequently up to 6 times daily. Take ibuprofen as needed for body aches and pains. If you continue to have cough cold symptoms continue to have body aches you may pursue a PCR COVID testing. You tested negative for COVID today while in the emergency department on the rapid test but still could be positive please quarantine for 10 days from the first day of your symptoms. You have been tested for or diagnosed with COVID-19. It is an infection caused by a new type of coronavirus. COVID-19 will cause cold-like or mild flu symptoms in most. It can cause more severe symptoms like problems breathing in some. There is no treatment for COVID-19. The body will clear the infection over time. Self-care will help to ease discomfort. Steps to Take: Self-Care Rest as needed. Healthy habits may help you feel better. Steps include: Choose healthy foods including fruits and vegetables. Drink water throughout the day. Get plenty of sleep each night. If you smoke, try to quit. It may ease breathing. Avoid alcohol. Keep Others Healthy The virus can spread to others. Droplets are released every time you sneeze or cough. The droplets can get into the mouth, nose, or eyes of people near you and lead to infection. To lower the chances of spreading COVID-19 to others: Stay at home until your doctor has said it is safe to leave. If you tested pos itive this will mean staying isolated until both of the following are true: At least 10 days have passed since the start of illness. You are free of fever for at least 72 hours without the use of medicine. During this time: - Avoid public areas, events, or transportation. Do not return to work or school until your doctor has said it is safe to do so. - Call ahead if you need to go to a medical center. Let them know you may have COVID-19. It will help them guide you where to go. They may also ask you to wear a facemask when you come to the office. - If you call for emergency medical services, let them know you may have COVID- 19. While at home: - Try to avoid close contact with others. Stay about 6 feet away. - If possible, spend most of your time in a separate room from others. - Use a face mask if you will be in close contact with others such as sharing a room or vehicle. - Have someone wipe down common surfaces in the home. Use household technology and engineering teacher every day on areas like doorknobs, counters, or sinks. - Cough or sneeze into a tissue. Throw the tissue away right after use. If a tissue is not available, cough or sneeze into your elbow. - Wash your hands often. Wash them after sneezing or coughing. Use soap and water and wash for at least 20 seconds. Alcohol based hand cleaner housekeeping can be used if soap and water is not available. - Do not prepare food for others. Avoid sharing personal items like forks, spoons, or toothbrushes. - Avoid close contact with pets while you are sick. There is no evidence of the virus passing to pets. This is a safety step until more is known about this virus. Isolation can be frustrating. Social interaction can help. Keep in touch with friends and family through phone and tech options. You can still interact with others in your home, just keep a safe distance of about 6 feet. Follow-up: Your doctors office will check in with you to see if there are any changes in your health. You may be asked to keep track of symptoms to share with them. They will also let you know when you are clear to be in public again. Problems to Look Out For: Contact your doctor if your recovery is not going as you expect. Get emergency care if you have problems such as: - Trouble breathing - Nonstop chest pain or pressure - Changes in awareness, confusion, or problems waking - Lips or face have bluish color - Worsening of symptoms If you think you have an emergency, call for emergency medical services right away. As taken from [facility] Ondansetron (ONDANSETRON ODT) 4 Mg Tab.rapdis 1 TAB PO PRN Q6-8HRS for nausea, #16 TAB Prov: CRUZ ORTIZ SPINE NURSE 12/07/21 Azithromycin (AZITHROMYCIN TABLET) 250 Mg Tablet 1 PKG PO UD for pneumonia for 4 Days, #4 TAB 0 Refills Take 1 tablet daily starting 12/08/2021 for 4 days. Prov: CRUZ ORTIZ SPINE NURSE 12/07/21 Amoxicillin/Potassium Clav (AUGMENTIN 875-125 TABLET) 1 Each Tablet 1 TAB PO BID for pneumonia for 10 Days, #20 TAB 0 Refills Prov: CRUZ ORTIZ SPINE NURSE 12/07/21 CRUZ ORTIZ APRN Dec 07, 2021 18:07 BRENDA BAKER DO Dec 09, 2021 06:33
[2021-12-07] MEDS ORDERED: KETOROLAC 30 MG/ML VIAL. IVP ONE (18:45)
[2021-12-07 19:13] LABS: BACTERIA,URINE 0 /HPF (0-FEW); BILIRUBIN,URINE NEG (NEG); CLARITY,URINE CLEAR; COLOR,URINE YELLOW; GLUCOSE,URINE >=1000 mg/dL (NEG); NITRITE,URINE NEG (NEG); RBC,URINE 20-40 /HPF (0-2); SQUAMOUS EPITHELIAL CELL,UR FEW /LPF
[2021-12-07] MEDS ORDERED: AMOX1TAB61 PO (19:17)
[2021-12-07] MEDS ORDERED: AZIT250T6 PO (19:17)
[2021-12-07] MEDS ORDERED: ONDA4TAB12 PO (19:21)
[2021-12-07 20:30] VITALS: BP 128/94
== END 2021-12-07 20:30 | disposition home or self-care (01) ==
LOC: ER 13:53
DX: J18.9 Pneumonia, unspecified organism (principal); K21.9 Gastro-esophageal reflux disease without esophagitis; F17.210 Nicotine dependence, cigarettes, uncomplicated; F12.10 Cannabis abuse, uncomplicated; F15.10 Other stimulant abuse, uncomplicated
CPT/HCPCS: 36415; 71045; 80053; 81001; 82947; 83690; 85025; 87086; 87186; 96361; 96365; 96366; 96375; 99285; J0696; J1885; J2405; J7030; 87428

== ENCOUNTER 2021-12-11 03:40 | Observation (INO) | payer MEDICAID ==
[~2021-12-11] VITALS: Ht 172.7 cm; Wt 58.2 kg
[~2021-12-11 03:40] MED LIST changes: +AMOX1TAB61 PO; +AZIT250T6 PO
[2021-12-11] MEDS ORDERED: KETOROLAC 30 MG/ML VIAL. IVP ONE (04:00)
[2021-12-11] MEDS ORDERED: IV NORMAL SALINE 1,000ML 1,000 ML IV ONE ×2 (04:00→05:30)
[2021-12-11] MEDS ORDERED: FAMOTIDINE 20 MG/2 ML VIAL IVP ONE (04:00)
[2021-12-11] MEDS ORDERED: ONDANSETRON PF 4 MG/2 ML VIAL. IVP ONE (04:00)
[2021-12-11] MEDS ORDERED: METOCLOPRAMIDE HCL 10 MG/2 ML VIAL. IVP ONE (04:15)
[2021-12-11] MEDS ORDERED: diphenhydrAMINE 50 MG/ML VIAL IVP ONE (04:15)
[2021-12-11 04:24] LABS: BASO % 0 % (0-3); EOS # 0.1 x10^3/uL (0.0-0.7); EOS % 1 % (0-3); HEMATOCRIT 32.8 % (36.0-47.0); HEMOGLOBIN 11.1 g/dL (12.0-15.5); LYMPH # 1.8 x10^3/uL (1.0-4.8); LYMPH % 36 % (24-48); MEAN CORPUSCULAR HEMOGLOBIN 30 pg (25-35); MEAN CORPUSCULAR HGB CONC 34 g/dL (31-37); MEAN CORPUSCULAR VOLUME 89 fL (79-100); MONO % 20 % (0-9); NEUT # 2.1 x10^3uL (1.8-7.7); NEUT % 43 % (31-73); PLATELET COUNT 459 x10^3/uL (140-400); RED BLOOD COUNT 3.69 x10^6/uL (3.50-5.40); RED CELL DISTRIBUTION WIDTH 13.8 % (11.5-14.5); WHITE BLOOD COUNT 4.9 x10^3/uL (4.0-11.0)
--- NOTE | 2021-12-11 04:32 | RAD ---
Single view chest dated 12/11/2021 4:28 AM: COMPARISON: 12/07/2021 Clinical Indication: Cough. Findings: Single upright portable exam of the chest was performed. Heart and mediastinal contours are stable. H azy perihilar opacities are similar to slightly improved. No new infiltrate or pleural effusion. No p neumothorax. IMPRESSION: Mild improvement in hazy perihilar airspace disease. Electronically signed by: Valdo Thrasher MD (12/11/2021 4:29 AM) KALA
[2021-12-11 04:46] LABS: CALCIUM 7.9 mg/dL (8.5-10.1); CREATININE 1.2 mg/dL (0.6-1.0); GFR 52.7; POTASSIUM 3.5 mmol/L (3.5-5.1)
[2021-12-11 04:50] LABS: ALBUMIN 2.2 g/dL (3.4-5.0); ALBUMIN/GLOBULIN RATIO 0.6 (1.0-1.7); MAGNESIUM 1.8 mg/dL (1.8-2.4); TOTAL BILIRUBIN 0.2 mg/dL (0.2-1.0); TOTAL PROTEIN 5.6 g/dL (6.4-8.2)
[2021-12-11] MEDS ORDERED: INSULIN REGULAR VIAL 100 UNIT in IV NORMAL SALINE 100ML 100 ML IV PRN (05:15)
[2021-12-11] MEDS ORDERED: INSULIN REGULAR 100 UNIT/ML 3ML VIAL. IV ONE (05:15)
--- NOTE | 2021-12-11 05:35 | PHYS DOC ---
Past History Past Medical History: Anxiety, Constipation, Depression, Diabetes, GERD, Ovarian Cyst, Other Additional Past Medical Histor: gastroparesis, substance use disorder Past Surgical History: Other Additional Past Surgical Histo: ovarian cyst;eyex3;earx3;port;chest tubes; bx o f rt ankle Smoking: Cigarettes, Less than 1pk/day, Quit Less Than 1 Year Alcohol Use: None Drug Use: Amphetamine, Marijuana, Methamphetamine General Adult EDM: Chief Complaint: NAUSEA/VOMITING/DIARRHEA HPI: HPI: 31-year-old female with past medical history of diabetes and gastroparesis presents with report of nausea, vomiting, and chest pressure that has been thalia oing for the last several days. Patient was recently seen in emergency department for same on 12/07/2021 at that time she was diagnosed with atypical pneumonia based on chest x-ray. Patient was started on Augmentin and azithromycin however patient reports she has been unable to keep her medications down secondary to vomiting. Patient reports tonight her glucose meter read "high ". Patient reports she has been compliant taking her medication as directed. Denies known exposure to COVID-19. Patient reports she was tested for COVID-19 on 12/07/2021 which was negative. Patient denies known sick contacts. Denies trauma. Denies . Review of Systems: Review of Systems: Constitutional: Reports generalized malaise and weakness Eyes: Denies redness or eye pain HENT: Denies nasal congestion or sore throat Respiratory: Reports cough; denies shortness of breath Cardiovascular: Reports chest pain; denies palpitations GI: Reports upper and nausea and vomiting : Denies dysuria or hematuria Musculoskeletal: Denies back pain or joint pain Integument: Denies rash or skin lesions Neurologic: Denies headache, focal weakness or sensory changes Complete systems were reviewed and found to be within normal limits, except as documented in this note. Current Medications: Current Meds: Current Medications Medications (Trade) Dose Ordered Sig/Chevy Start Time Stop Time Status Last Admin Dose Admin Diphenhydramine HCl (Benadryl) 25 mg 1X ONCE 12/11/21 04:15 12/11/21 04:18 DC 12/11/21 04:17 25 MG Famotidine (Pepcid Vial) 20 mg 1X ONCE 12/11/21 04:00 12/11/21 04:01 DC 12/11/21 04:17 20 MG Insulin Human Regular (HumuLIN R VIAL) 6 unit 1X ONCE 12/11/21 05:15 12/11/21 05:16 DC Insulin Human Regular 100 unit/ Sodium Chloride 101 ml @ 0 mls/hr CONT PRN PRN 12/11/21 05:15 UNV Ketorolac Tromethamine (Toradol 30mg Vial) 15 mg 1X ONCE 12/11/21 04:00 12/11/21 04:01 DC 12/11/21 04:16 15 MG Metoclopramide HCl (Reglan Vial) 10 mg 1X ONCE 12/11/21 04:15 12/11/21 04:18 DC 12/11/21 04:16 10 MG Ondansetron HCl (Zofran) 4 mg 1X ONCE 12/11/21 04:00 12/11/21 04:13 DC Sodium Chloride 1,000 ml @ 1,000 mls/hr 1X ONCE 12/11/21 04:00 12/11/21 04:59 DC 12/11/21 04:16 1,000 MLS/HR Allergies: Allergies: Allergies Coded Allergies Type Severity Reaction Last Updated Verified acetaminophen Allergy Intermediate HIVES 09/16/21 Yes adhesive tape Allergy Intermediate 09/16/21 Yes Physical Exam: PE: Constitutional: Well developed, well nourished, uncomfortable, non-toxic appearance HENT: Normocephalic, atraumatic Eyes: Conjunctiva normal, no discharge Neck: Normal range of motion, supple Lungs & Thorax: No respiratory distress, equal chest rise and fall Abdomen: Soft, epigastric tenderness, no guarding Skin: Warm, dry, no erythema, no rash Extremities: No tenderness, ROM intact, no edema Neurologic: Alert and oriented X 3, no focal deficits noted Psychologic: Affect normal, judgment normal Current Patient Data: Labs: Laboratory Tests Test 12/11/21 04:05 White Blood Count 4.9 x10^3/uL (4.0-11.0) Red Blood Count 3.69 x10^6/uL (3.50-5.40) Hemoglobin 11.1 g/dL (12.0-15.5) L Hematocrit 32.8 % (36.0-47.0) L Mean Corpuscular Volume 89 fL (79-100) Mean Corpuscular Hemoglobin 30 pg (25-35) Mean Corpuscular Hemoglobin Concent 34 g/dL (31-37) Red Cell Distribution Width 13.8 % (11.5-14.5) Platelet Count 459 x10^3/uL (140-400) H Neutrophils (%) (Auto) 43 % (31-73) Lymphocytes (%) (Auto) 36 % (24-48) Monocytes (%) (Auto) 20 % (0-9) H Eosinophils (%) (Auto) 1 % (0-3) Basophils (%) (Auto) 0 % (0-3) Neutrophils # (Auto) 2.1 x10^3uL (1.8-7.7) Lymphocytes # (Auto) 1.8 x10^3/uL (1.0-4.8) Monocytes # (Auto) 1.0 x10^3/uL (0.0-1.1) Eosinophils # (Auto) 0.1 x10^3/uL (0.0-0.7) Basophils # (Auto) 0.0 x10^3/uL (0.0-0.2) Sodium Level 134 mmol/L (136-145) L Potassium Level 3.5 mmol/L (3.5-5.1) Chloride Level 98 mmol/L (98-107) Carbon Dioxide Level 24 mmol/L (21-32) Anion Gap 12 (6-14) Blood Urea Nitrogen 16 mg/dL (7-20) Creatinine 1.2 mg/dL (0.6-1.0) H Estimated GFR (Cockcroft-Gault) 52.7 BUN/Creatinine Ratio 13 (6-20) Glucose Level 392 mg/dL (70-99) H Calcium Level 7.9 mg/dL (8.5-10.1) L Magnesium Level 1.8 mg/dL (1.8-2.4) Total Bilirubin 0.2 mg/dL (0.2-1.0) Aspartate Amino Transferase (AST) 17 U/L (15-37) Alanine Aminotransferase (ALT) 74 U/L (14-59) H Alkaline Phosphatase 151 U/L (46-116) H Total Protein 5.6 g/dL (6.4-8.2) L Albumin 2.2 g/dL (3.4-5.0) L Albumin/Globulin Ratio 0.6 (1.0-1.7) L Lipase 800 U/L (73-393) H Ethyl Alcohol Level < 10 mg/dL (0-10) Acetone Level Sm pos (NEG) Vital Signs: Vital Signs Date Time Temp Pulse Resp B/P (MAP) Pulse Ox O2 Delivery O2 Flow Rate FiO2 12/11/21 03:51 98.1 109 18 112/83 (93) 95 Room Air EKG: EKG: [] Radiology/Procedures: Radiology/Procedures: PROCEDURE: CHEST AP ONLY Single view chest dated 12/11/2021 4:28 AM: COMPARISON: 12/07/2021 Clinical Indication: Cough. Findings: Single upright portable exam of the chest was performed. Heart and mediastinal contours are stable. Hazy perihilar opacities are similar to slightly improved. No new infiltrate or pleural effusion. No pneumothorax. IMPRESSION: Mild improvement in hazy perihilar airspace disease. Electronically signed by: Valdo Thrasher MD (12/11/2021 4:29 AM) [facility] [place] Score: C/O Chest Pain: Yes HEART Score for Chest Pain: HEART Score for Chest Pain Response (Comments) Value History Slighlty/Non-Suspicious 0 ECG Normal 0 Age < 45 0 Risk Factors 1 or 2 Risk Factors 1 Troponin < Normal Limit 0 Total 1 Risk Factors: Risk Factors: DM, Current or recent (<one month) smoker, HTN, HLP, family history of CAD, obesity. Risk Scores: Score 0 - 3: 2.5% MACE over next 6 weeks - Discharge Home Score 4 - 6: 20.3% MACE over next 6 weeks - Admit for Clinical Observation Score 7 - 10: 72.7% MACE over next 6 weeks - Early Invasive Strategies Course & Med Decision Making: Course & Med Decision Making Pertinent Labs and Imaging studies reviewed. (See chart for details) Patient presents with report of intractable nausea and vomiting as well as chest discomfort. Some epigastric discomfort on palpation. Patient with history of recent diagnosis of atypical pneumonia based on recent chest x-ray for which she was started on Augmentin and azithromycin. Patient reports has been unable to take empiric antibiotics. Patient also reports her Accu-Chek at home read "high ". IV fluid hydration provided. Symptomatic treatment given. Labs obtained and posted to chart. Acetone small positive however no anion gap appreciated. Glucose elevated. Patient's dose of azithromycin provided via IV. Lipase significantly elevated consistent for pancreatitis. Patient requiring admission for further evaluation and treatment. Discussed with Dr. Gonzalez (hospitalist) who is in agreement with admission. Discussed findings and plan with patient, who acknowledges understanding and agreement. Annelise Disclaimer: Annelise Disclaimer: This electronic medical record was generated, in whole or in part, using a voice recognition dictation system. Departure Departure: Impression: Primary Impression: Pancreatitis Qualified Codes: K85.90 - Acute pancreatitis without necrosis or infection, unspecified Additional Impressions: Intractable nausea and vomiting Hyperglycemia Atypical chest pain History of pneumonia Disposition: ADMITTED INPATIENT Admitting Physician: Timothy Gonzalez Condition: STABLE Referrals: PCP,BAY (PCP) VALDO OLIVER DO Dec 11, 2021 05:35
[2021-12-11] MEDS ORDERED: AZITHROMYCIN 500 MG VIAL. IV ONE (05:36)
[2021-12-11] MEDS ORDERED: IV NORMAL SALINE 250ML 250 ML ONE (05:36)
[2021-12-11] MEDS ORDERED: DEXTROSE 50% 25 GM / 50ML DISP.SYRIN. IV PRN (05:45)
[2021-12-11] MEDS ORDERED: ONDANSETRON PF 4 MG/2 ML VIAL. IVP PRN (05:45)
[2021-12-11] MEDS: IV NORMAL SALINE 1,000ML 1,000 ML IV SCH ×3 (05:45→21:45)
[2021-12-11] MEDS ORDERED: AZITHROMYCIN 500 MG in IV NORMAL SALINE 250ML 250 ML IV ONE (05:45)
[2021-12-11] MEDS: INSULIN LISPRO 300 UNITS/3 ML VIAL. SQ SCH ×3 (08:00→17:43)
--- NOTE | 2021-12-11 08:30 | NUR ---
The patient, CHALO RAYMUNDO, 31 y/o, F admitted by DANIAL OREILLY MD, was given written information regarding hospital policies, unit procedures and contact persons. Valuables were checked and LEFT WITH PATIENT IN ROOM.
[2021-12-11 08:32] VITALS: BP 114/76
--- NOTE | 2021-12-11 10:24 | HP ---
DATE OF SERVICE: 12/11/2021 ADMIT DATE: 12/11/2021 ATTENDING PHYSICIAN: Dr. Gonzalez. CHIEF COMPLAINT: Abdominal pain and nausea. HISTORY OF PRESENT ILLNESS: The patient, age 31, is a type 1 diabetic. She has had substance abuse and noncompliance well known to us from multiple previous admissions. She has a 3-day history of increasing nausea, vomiting. Her sugars were elevated at 390, trace acetone. She is not in overt DKA. She had an abnormal lipase level, which does not correlate. She denies any alcohol use, although she has drunk in the past. She has significant gastroparesis. In any event, she was admitted with hyperglycemia and uncontrolled and limited gastroenteritis. I do not believe she has clinical evidence of pancreatitis at this time. PAST MEDICAL HISTORY: Significant for multiple admissions with noncompliance, substance abuse, ovarian cyst, type 1 diabetes, gastroesophageal reflux disease, depression with anxiety disorder. She also has gastroparesis. CURRENT MEDICATIONS: Reviewed. She was on scheduled Lantus and regular insulin whether or not she takes it remains to be seen. She was also scheduled to take from the ED 3 days ago a course of Augmentin and Zithromax. She also takes Levsin, Reglan, ondansetron and p.r.n., Compazine. SOCIAL HISTORY: She is a smoker. Drinking as noted. Substance abuse noted. FAMILY HISTORY: Noncontributory. REVIEW OF SYSTEMS: Significant for the GI symptoms. She denied any COVID exposure. She tested most recently negative for coronavirus on 12/07/2021 in the ED. The rest of the detailed review of systems was determined to be unremarkable. PHYSICAL EXAMINATION: GENERAL: When I saw her, this is a pleasant young female. VITAL SIGNS: Initial vital signs showed a blood pressure of 114/78 mmHg, pulse was 94 and regular. She was afebrile, oxygen saturation 98% on room air. HEENT: Head is without trauma. Pupils are reactive. Sclerae nonicteric. Oropharynx is clear. NECK: Supple, no bruits. LUNGS: Clear. CARDIOVASCULAR: Regular heart tones. ABDOMEN: Soft. No guarding. There is no rebound tenderness. No masses palpated. EXTREMITIES: Without edema. NEUROLOGIC: Focally intact. PERTINENT LABORATORY STUDIES: The hemoglobin is 11.1 g/dL with a white count of 4900. Electrolytes within normal range. Sodium 134 mEq. The lipase was elevated at 800. Transaminases are normal. Toxicology screen, ethyl alcohol level is negative. Chest x-ray on admission showed mild hazy perihilar airspace infiltrate, improved from previous x-ray from 3 days ago. ASSESSMENT: 1. A 31-year-old female with gastroenteritis. 2. Elevated lipase, but without clinical findings of pancreatitis. 3. Type 1 diabetes with very poor control. 4. Frequent admissions in the past with diabetic ketoacidosis due to noncompliance. 5. Polysubstance abuse. PLAN: 1. Admit to the inpatient unit. 2. Gentle IV hydration. 3. Full liquid diet as tolerated. She is hungry. 4. Glucose control with a regular insulin regimen. JERMAN DR: Cristela TID: [id number]
[2021-12-11 11:00] VITALS: BP 118/83
[2021-12-11 15:00] VITALS: BP 126/81
[2021-12-11] MEDS: MORPHINE SULFATE 4 MG/ML DISP.SYRIN. IV PRN ×2 (16:14→20:22)
--- NOTE | 2021-12-11 18:01 | NUR ---
PT CONTINUES TO REQUEST PAIN MEDICINE AND STATES THAT PAIN IS IN HER BACK AND CHEST. PT WAS ABLE TO BREAKFAST, LUNCH AND DINNER WITH NO ABDOMINAL PAIN NOTED. WILL CTM.
[2021-12-11 19:00] VITALS: BP 111/74
[2021-12-11 23:00] VITALS: BP 108/72
[2021-12-12] MEDS: MORPHINE SULFATE 4 MG/ML DISP.SYRIN. IV PRN ×3 (00:22→08:40)
[2021-12-12 05:00] VITALS: BP 133/93
[2021-12-12] MEDS: INSULIN LISPRO 300 UNITS/3 ML VIAL. SQ SCH (08:40)
--- NOTE | 2021-12-12 12:19 | NUR ---
discharge note Pt discharged at 1100 via ambulation accompanied by family member . pt given written and verbal instructions with verbal statement of understanding received.
--- NOTE | 2021-12-13 06:51 | DS ---
DATE OF DISCHARGE: 12/12/2021 ATTENDING PHYSICIAN: Dr. Gonzalez FINAL DISCHARGE DIAGNOSES: 1. Mild pancreatitis, resolved. 2. Uncontrolled diabetes. 3. Noncompliance of regimen. 4. Polysubstance abuse. 5. Underlying depression, anxiety, and personality disorder. 6. Hyperglycemia without evidence of diabetic ketoacidosis. 7. Type 1 diabetic. 8. Diabetic gastroparesis. HISTORY AND PHYSICAL: The patient age 31 now is well known to us from multiple previous admissions with noncompliance, DKA and elevated blood sugars. At this time, she was not in DKA. Sugars were still high at around 400. She had some increased nausea and vomiting. No obstruction. She has an exacerbation of her diabetic gastroparesis. In addition, her lipase level ordered was elevated; however, symptoms of pancreatitis were not there clinically. PHYSICAL EXAMINATION: Please see my dictated note. PERTINENT LABORATORY AND X-RAY STUDIES: Admission hemoglobin was 11.1 g/dL, white count 4900. Nonfasting blood sugars were drawn in the hospital and ____ was down in the 200s. COURSE IN THE HOSPITAL: The patient was admitted. We did IV hydration, insulin regimen, nausea control, pain control. She was better. She was eating solid foods. I believe the lipase level did not correlate with the degree of pancreatitis. By the second hospital day, her vital signs were stable. She wanted to go home. I felt this is reasonable. Therefore, I made no changes on her medications. She will continue her scheduled Lantus and regular insulin, Zofran p.r.n. ____ and finish a round of Augmentin prescribed in the ED. She is also on Reglan 10 mg 4 times a day. Strong encouragement to monitor blood sugars and take her insulin, whether or not she will be compliant remains to be seen. She was discharged then from our hospital in stable condition with explicit drug and followup care. JEFF/KARI/CHRIS DR: JEFF/regina TID: [id number]
== END 2021-12-12 12:23 | disposition home or self-care (01) ==
LOC: ER 03:40 → INTOOBSV 05:35 → ER HOLD 05:35 → 1 SOUTH 05:58
PROVIDERS: ADMIT Hospitalist; ATTEND Hospitalist
DX: K85.90 Acute pancreatitis without necrosis or infection, unspecified (principal); E10.65 Type 1 diabetes mellitus with hyperglycemia; K52.9 Noninfective gastroenteritis and colitis, unspecified; F32.A Depression, unspecified; E10.43 Type 1 diabetes mellitus with diabetic autonomic (poly)neuropathy; F41.9 Anxiety disorder, unspecified; K21.9 Gastro-esophageal reflux disease without esophagitis; K31.84 Gastroparesis; F60.9 Personality disorder, unspecified; R77.8 Other specified abnormalities of plasma proteins; J18.9 Pneumonia, unspecified organism; F17.200 Nicotine dependence, unspecified, uncomplicated; Z79.4 Long term (current) use of insulin; Z87.01 Personal history of pneumonia (recurrent); Z91.19 Patient's noncompliance with other medical treatment and regimen; Z79.899 Other long term (current) drug therapy; Z98.890 Other specified postprocedural states
CPT/HCPCS: 36415; 71045; 80053; 82010; 82553; 82947; 83690; 83735; 84484; 85025; 96361; 96365; 96366; 96372; 96375; 96376; 99284; G0480; J0456; J1200; J1815; J1885; J2270; J2765; J3010; J3490; J7030; J7050; 96374; G0378; G0379; 99285-25

== ENCOUNTER 2021-12-13 21:50 | Emergency (ER) | payer MEDICAID ==
[~2021-12-13] VITALS: Ht 172.7 cm; Wt 58.2 kg
--- NOTE | 2021-12-13 22:12 | PHYS DOC ---
Past History Past Medical History: Anxiety, Constipation, Depression, Diabetes, GERD, Ovarian Cyst, Other Additional Past Medical Histor: gastroparesis, substance use disorder Past Surgical History: Other Additional Past Surgical Histo: ovarian cyst;eyex3;earx3;port;chest tubes; bx o f rt ankle Smoking: Cigarettes, Less than 1pk/day, Quit Less Than 1 Year Alcohol Use: None Drug Use: Amphetamine, Marijuana, Methamphetamine General Adult EDM: Chief Complaint: BLOOD SUGAR PROBLEM HPI: HPI: Patient is a 31-year-old female coming in via EMS from home. Patient is well- known to the emergency department for frequent visits for poorly controlled diabetes. Patient was discharged yesterday after stay for mild pancreatitis. Patient states that since this morning she has had numerous episodes of nonbloody, nonbilious emesis. States she checked her blood sugar earlier and it read high, she then gave herself 10 units of her short acting insulin. Blood glucose was 180 on EMS arrival. Patient says she has been taking Zofran but has been out of her Reglan. Review of Systems: Review of Systems: All other systems within normal limits except for as noted in the HPI Current Medications: Current Meds: Current Medications Medications (Trade) Dose Ordered Sig/Chevy Start Time Stop Time Status Last Admin Dose Admin Metoclopramide HCl (Reglan Vial) 10 mg 1X ONCE 12/13/21 22:15 12/13/21 22:16 UNV Sodium Chloride 1,000 ml @ 1,000 mls/hr 1X ONCE 12/13/21 22:15 12/13/21 23:14 UNV Allergies: Allergies: Allergies Coded Allergies Type Severity Reaction Last Updated Verified acetaminophen Allergy Intermediate HIVES 09/16/21 Yes adhesive tape Allergy Intermediate 09/16/21 Yes Physical Exam: PE: Constitutional: Well developed, well nourished, no acute distress, non-toxic appearance. [] HENT: Normocephalic, atraumatic, bilateral external ears normal, nose normal. [] Eyes: PERRLA, conjunctiva normal, no discharge. [] Neck: No rigidity, supple, no stridor. [] Cardiovascular: Tachycardic, regular rhythm, brisk cap refill [] Lungs & Thorax: Non labored symmetric respirations, no tachypnea or respiratory distress [] Abdomen: Soft, nondistended. Skin: Warm, dry, no erythema, no rash. [] Back: Unremarkable Extremities: No deformities, range of motion grossly intact, no lower extremity edema [] Neurologic: Alert and oriented X 3, no focal deficits noted. [] Psychologic: Affect normal, judgement normal, mood normal. [] Current Patient Data: Vital Signs: Vital Signs Date Time Temp Pulse Resp B/P (MAP) Pulse Ox O2 Delivery O2 Flow Rate FiO2 12/13/21 21:50 98.4 106 20 147/97 (114) 98 Room Air EKG: EKG: [] Sinus tachycardia, heart rate 107, normal axis, no ST elevation or depression, normal T waves. Radiology/Procedures: Radiology/Procedures: [] Heart Score: C/O Chest Pain: No Risk Factors: Risk Factors: DM, Current or recent (<one month) smoker, HTN, HLP, family history of CAD, obesity. Risk Scores: Score 0 - 3: 2.5% MACE over next 6 weeks - Discharge Home Score 4 - 6: 20.3% MACE over next 6 weeks - Admit for Clinical Observation Score 7 - 10: 72.7% MACE over next 6 weeks - Early Invasive Strategies Course & Med Decision Making: Course & Med Decision Making Patient had improving infiltrates on x-ray from 2 days ago. Patient states she does not feel that her antibiotics but still has them at home. Is resting comfortably with improved vital signs. Is not in DKA, will discharge with more nausea medication Dragon Disclaimer: Dragon Disclaimer: This electronic medical record was generated, in whole or in part, using a voice recognition dictation system. Departure Departure: Impression: Primary Impression: Hyperglycemia due to type 1 diabetes mellitus Additional Impression: Nausea & vomiting Disposition: HOME / SELF CARE / HOMELESS Condition: STABLE Referrals: PCP,NO (PCP) Patient Instructions: Nausea and Vomiting Scripts Ondansetron (ONDANSETRON ODT) 8 Mg Tab.rapdis 8 MG PO PRN Q8HRS PRN for VOMITING for 10 Days, #30 TAB Prov: KAREN GAMBLE MD 12/14/21 Metoclopramide Hcl (REGLAN) 10 Mg Tablet 1 TAB PO QID PRN for VOMITING for 15 Days, #60 TAB 0 Refills before food and bedtime Prov: KAREN GAMBLE MD 12/14/21 KAREN GAMBLE MD Dec 13, 2021 22:12
[2021-12-13] MEDS ORDERED: METOCLOPRAMIDE HCL 10 MG/2 ML VIAL. IM ONE (22:15)
[2021-12-13] MEDS ORDERED: IV NORMAL SALINE 1,000ML 1,000 ML IV ONE ×2 (22:15→23:15)
[2021-12-13 22:39] LABS: BASO % 1 % (0-3); EOS % 1 % (0-3); HEMOGLOBIN 11.7 g/dL (12.0-15.5); LYMPH # 1.9 x10^3/uL (1.0-4.8); LYMPH % 42 % (24-48); MEAN CORPUSCULAR HEMOGLOBIN 30 pg (25-35); MEAN CORPUSCULAR HGB CONC 33 g/dL (31-37); MEAN CORPUSCULAR VOLUME 91 fL (79-100); MONO # 0.5 x10^3/uL (0.0-1.1); MONO % 10 % (0-9); NEUT # 2.1 x10^3uL (1.8-7.7); NEUT % 47 % (31-73); PLATELET COUNT 275 x10^3/uL (140-400); RED BLOOD COUNT 3.95 x10^6/uL (3.50-5.40); WHITE BLOOD COUNT 4.6 x10^3/uL (4.0-11.0)
[2021-12-13 23:08] LABS: CALCIUM 8.2 mg/dL (8.5-10.1); CREATININE 0.4 mg/dL (0.6-1.0); GFR 187.4
[2021-12-13 23:12] LABS: ALBUMIN 2.6 g/dL (3.4-5.0); ALBUMIN/GLOBULIN RATIO 0.8 (1.0-1.7); MAGNESIUM 1.8 mg/dL (1.8-2.4); PHOSPHORUS 3.5 mg/dL (2.6-4.7); TOTAL BILIRUBIN 0.3 mg/dL (0.2-1.0); TOTAL PROTEIN 5.8 g/dL (6.4-8.2)
[2021-12-13] MEDS ORDERED: ONDANSETRON PF 4 MG/2 ML VIAL. IVP ONE (23:15)
[2021-12-14 00:25] LABS: AMPHETAMINE/METHAMPHETAMINE NEG (NEG); BARBITURATES NEG (NEG); BENZODIAZEPINES NEG (NEG); CANNABINOIDS NEG (NEG); COCAINE NEG (NEG); METHADONE NEG (NEG); OPIATES POS (NEG); PHENCYCLIDINE NEG (NEG)
[2021-12-14 00:27] LABS: BILIRUBIN,URINE NEG (NEG); CLARITY,URINE CLOUDY; COLOR,URINE YELLOW; GLUCOSE,URINE 100 mg/dL (NEG); NITRITE,URINE NEG (NEG)
[2021-12-14 00:28] LABS: AMORPHOUS SEDIMENT,UR PRESENT /HPF; BACTERIA,URINE FEW /HPF (0-FEW); SQUAMOUS EPITHELIAL CELL,UR FEW /LPF; WBC,URINE OCC /HPF (0-4)
[2021-12-14] MEDS ORDERED: ONDA8TAB15 PO (00:39)
[2021-12-14] MEDS ORDERED: METO10TA81 PO (00:39)
[2021-12-14 00:56] VITALS: BP 136/68
--- NOTE | 2021-12-14 04:13 | EKG ---
[address] [address] Test Date: 2021-12-13 Test Time: 22:48:41 Pat Name: CHALO RAYMUNDO Department: Room: Gender: F Disposal Operator: : 1990 Requested By: KAREN GAMBLE Order Number: [id number] Reading MD: Vasquez Moyer Measurements Intervals [place] Rate: 107 P: 14 WV: 130 QRS: 64 QRSD: 82 T: 49 QT: 310 QTc: 419 Interpretive Statements SINUS TACHYCARDIA Electronically Signed On 12-15-2021 19:37:04 WOOD PANEL INSPECTOR by Vasquez Moyer
== END 2021-12-14 00:58 | disposition home or self-care (01) ==
LOC: ER 21:50
DX: E10.65 Type 1 diabetes mellitus with hyperglycemia (principal); R11.2 Nausea with vomiting, unspecified; K21.9 Gastro-esophageal reflux disease without esophagitis; Z87.891 Personal history of nicotine dependence; Z88.6 Allergy status to analgesic agent; Z88.8 Allergy status to other drugs, medicaments and biological substances
CPT/HCPCS: 36415; 80053; 80307; 81001; 81025; 82803; 83690; 83735; 84100; 85025; 93005; 96361; 96372; 96374; 96375; 99284; G0480; J2405; J2765; J3010; J7030

== ENCOUNTER 2021-12-16 18:22 | Emergency (ER) | payer MEDICAID ==
[~2021-12-16] VITALS: Ht 172.7 cm; Wt 58.2 kg
[~2021-12-16 18:22] MED LIST changes: +ONDA8TAB15 PO
[2021-12-16] MEDS ORDERED: diphenhydrAMINE 50 MG/ML VIAL IVP ONE (18:30)
[2021-12-16] MEDS ORDERED: KETOROLAC 15 MG/ML VIAL. IVP ONE (18:30)
[2021-12-16] MEDS ORDERED: IV RINGERS SOLUTION,LACTATED 1,000 ML IV ONE ×2 (18:30→20:30)
[2021-12-16] MEDS ORDERED: METOCLOPRAMIDE HCL 10 MG/2 ML VIAL. IVP ONE (18:30)
--- NOTE | 2021-12-16 18:36 | PHYS DOC ---
Past History Past Medical History: Anxiety, Constipation, Depression, Diabetes, GERD, Ovarian Cyst, Other Additional Past Medical Histor: gastroparesis, substance use disorder Past Surgical History: Other Additional Past Surgical Histo: ovarian cyst;eyex3;earx3;port;chest tubes; bx o f rt ankle Smoking: Cigarettes, Less than 1pk/day, Quit Less Than 1 Year Alcohol Use: None Drug Use: Amphetamine, Marijuana, Methamphetamine Adult General Chief Complaint Chief Complaint: SHORTNESS OF BREATH HPI HPI Patient is a 31-year-old female with a past medical history significant for insulin-dependent diabetes, anxiety, depression and chronic issues with nausea and vomiting who presents to the emergency department with a chief complaint of cough, nausea and vomiting for the past 2 days. States she was just discharged from the hospital 2 days ago after being in for DKA and pneumonia. States she just finished her antibiotics yesterday. States she does not have any nausea medicine at home and has not taken any other medicines today. States she is taking her insulin but blood sugar was in the 400s at home. Review of Systems Review of Systems Review of systems otherwise unremarkable except noted in HPI Allergies Allergies Allergies Coded Allergies Type Severity Reaction Last Updated Verified acetaminophen Allergy Intermediate HIVES 09/16/21 Yes adhesive tape Allergy Intermediate 09/16/21 Yes Physical Exam Physical Exam Constitutional: Well developed, well nourished, no acute distress, non-toxic appearance. [] HENT: Normocephalic, atraumatic, bilateral external ears normal, oropharynx dry, no oral exudates, nose normal. [] Eyes: conjunctiva normal, no discharge. [] Neck: Normal range of motion, no tenderness, supple, no stridor. [] Cardiovascular:Heart rate regular rhythm, no murmur [] Lungs & Thorax: Bilateral breath sounds clear to auscultation [] Abdomen: soft, no tenderness, no masses, no pulsatile masses. [] Skin: Warm, dry, no erythema, no rash. [] Back: No tenderness, no CVA tenderness. [] Extremities: No tenderness, no cyanosis, no clubbing, ROM intact, no edema. [] Neurologic: Alert and oriented X 3, no focal deficits noted. [] Psychologic: Affect normal, judgement normal, mood normal. [] EKG EKG [] Radiology/Procedures Radiology/Procedures [] Heart Score C/O Chest Pain: No Risk Factors: Risk Factors: DM, Current or recent (<one month) smoker, HTN, HLP, family history of CAD, obesity. Risk Scores: Risk Factors: DM, Current or recent (<one month) smoker, HTN, HLP, family history of CAD, obesity. Course & Med Decision Making Course & Med Decision Making Patient is a 31-year-old female who presents with nausea, vomiting and cough for the last 2 days since being discharged from the hospital Vital signs notable for tachycardia. Initial glucose greater than 500. Placed on the monitor with IV access established and IV fluid began. Given pain medicine. Given nausea medicine. Laboratory analysis clinical history suggest DKA and started on DKA order set. Chest x-ray notable for pneumonia and started on antibiotics. No beds available on hospital search so decided to keep in the emergency department for treatment until bed surgeon partner patient DKA resolved. Patient remained in the emergency department overnight with anion gap closing, patient given home long-acting and short acting insulins and patient eating whole food without issue. Rest of patient's care handed off to day team for reevaluation and disposition. Dragon Disclaimer Dragon Disclaimer This electronic medical record was generated, in whole or in part, using a voice recognition dictation system. Departure Departure: Impression: Primary Impression: Nausea & vomiting Additional Impressions: Diabetic ketoacidosis CAP (community acquired pneumonia) Disposition: HOME / SELF CARE / HOMELESS Condition: IMPROVED Referrals: [facility]CP[facility] (PCP) Scripts Azithromycin (AZITHROMYCIN TABLET) 250 Mg Tablet 250 MG PO DAILY for ANTI-BIOTIC for 4 Days, #4 TAB 0 Refills start 12/18/21 Prov: ROXY SU DO 12/17/21 Problem Qualifiers TANIKA CAMARENA MD Dec 16, 2021 18:36
[2021-12-16 19:48] LABS: BASO # 0.1 x10^3/uL (0.0-0.2); BASO % 0 % (0-3); EOS % 0 % (0-3); HEMATOCRIT 38.7 % (36.0-47.0); HEMOGLOBIN 12.5 g/dL (12.0-15.5); LYMPH # 2.5 x10^3/uL (1.0-4.8); LYMPH % 16 % (24-48); MEAN CORPUSCULAR HEMOGLOBIN 29 pg (25-35); MEAN CORPUSCULAR HGB CONC 32 g/dL (31-37); MEAN CORPUSCULAR VOLUME 91 fL (79-100); MONO # 0.9 x10^3/uL (0.0-1.1); MONO % 6 % (0-9); NEUT # 12.2 x10^3uL (1.8-7.7); NEUT % 78 % (31-73); PLATELET COUNT 563 x10^3/uL (140-400); RED BLOOD COUNT 4.24 x10^6/uL (3.50-5.40); RED CELL DISTRIBUTION WIDTH 14.2 % (11.5-14.5); WHITE BLOOD COUNT 15.8 x10^3/uL (4.0-11.0)
--- NOTE | 2021-12-16 19:55 | RAD ---
XR CHEST 1V History: Reason: h/o PNA, cough / Spl. Instructions: / History: Comparison: December 11, 2021 Findings: Mild ill-defined mid and bibasilar opacities, similar compared to prior. Normal heart size. No pneumo thorax. Left-sided nipple shadow. Impression: 1. Mild ill-defined mid and bibasilar opacities, similar compared to prior. Electronically signed by: Mark Cueva DO (12/16/2021 7:52 PM) [facility]
[2021-12-16 20:03] LABS: ALBUMIN/GLOBULIN RATIO 0.8 (1.0-1.7); CALCIUM 8.6 mg/dL (8.5-10.1); CREATININE 1.3 mg/dL (0.6-1.0); GFR 48.1; MAGNESIUM 2.2 mg/dL (1.8-2.4); PHOSPHORUS 6.8 mg/dL (2.6-4.7); POTASSIUM 5.9 mmol/L (3.5-5.1); TOTAL BILIRUBIN 0.5 mg/dL (0.2-1.0); TOTAL PROTEIN 6.9 g/dL (6.4-8.2)
[2021-12-16] MEDS ORDERED: INSULIN REGULAR VIAL 100 UNIT in IV NORMAL SALINE 100ML 100 ML IV PRN (20:30)
[2021-12-16] MEDS ORDERED: AZITHROMYCIN 250 MG TABLET. PO ONE (20:30)
[2021-12-16 20:53] LABS: % LYMPHS 14 % (24-48); % MONOS 11 % (0-10); % SEGS 75 % (35-66)
[2021-12-16 20:54] LABS: ANISOCYTOSIS MOD; PLT ESTIMATE INCREASED (ADEQUATE); SCHISTOCYTES OCC
[2021-12-16] MEDS ORDERED: cefTRIAXone SODIUM 1 GM VIAL ONE (20:57)
[2021-12-16] MEDS ORDERED: IV NORMAL SALINE 50ML 50 ML ONE (20:57)
[2021-12-16 21:09] LABS: BACTERIA,URINE MOD /HPF (0-FEW); BILIRUBIN,URINE NEG (NEG); CLARITY,URINE CLEAR; COLOR,URINE YELLOW; GLUCOSE,URINE 500 mg/dL (NEG); NITRITE,URINE NEG (NEG); SQUAMOUS EPITHELIAL CELL,UR MOD /LPF; UROBILINOGEN,URINE 0.2 mg/dL (0.2 mg/dL)
[2021-12-16 21:21] LABS: BARBITURATES NEG (NEG); BENZODIAZEPINES NEG (NEG); CANNABINOIDS NEG (NEG); COCAINE NEG (NEG); METHADONE NEG (NEG); OPIATES NEG (NEG); PHENCYCLIDINE NEG (NEG)
[2021-12-16 21:23] LABS: AMPHETAMINE/METHAMPHETAMINE NEG (NEG)
[2021-12-16 21:30] LABS: INFLUENZA A PATIENT NEGATIVE (NEGATIVE); INFLUENZA B PATIENT NEGATIVE (NEGATIVE)
--- NOTE | 2021-12-16 22:02 | EKG ---
[address] [address] Test Date: 2021-12-16 Test Time: 21:43:51 Pat Name: CHALO RAYMUNDO Department: Room: Gender: F Histology Supervisor: REI : 1990 Requested By: TANIKA CAMARENA Order Number: [id number] Reading MD: Vasquez Moyer Measurements Intervals [place] Rate: 118 P: 99 NM: 136 QRS: 62 QRSD: 88 T: 57 QT: 292 QTc: 411 Interpretive Statements SINUS TACHYCARDIA Electronically Signed On 12-17-2021 12:44:43 CHORE WORKER by Vasquez Moyer
[2021-12-17] MEDS ORDERED: oxyCODONE/APAP 5/325 1 TAB TABLET PO ONE (01:30)
[2021-12-17] MEDS ORDERED: IV DEXTROSE 5%-LACT RINGERS 1,000 ML IV ONE (02:00)
[2021-12-17 02:17] LABS: CALCIUM 8.5 mg/dL (8.5-10.1); CREATININE 1.2 mg/dL (0.6-1.0); GFR 52.7; POTASSIUM 4.7 mmol/L (3.5-5.1)
[2021-12-17 03:59] VITALS: BP 116/72
[2021-12-17 05:45] LABS: CREATININE 1.4 mg/dL (0.6-1.0); GFR 44.2; POTASSIUM 3.6 mmol/L (3.5-5.1)
[2021-12-17] MEDS ORDERED: AZIT250T6 PO (06:05)
[2021-12-17] MEDS ORDERED: POTASSIUM CHLORIDE 20 MEQ TABLET.ER. PO ONE (06:30)
[2021-12-17] MEDS ORDERED: INSULIN LISPRO 300 UNITS/3 ML VIAL. SQ ONE (06:30)
[2021-12-17] MEDS ORDERED: INSULIN GLARGINE SYRINGE. SQ SCH (21:00)
== END 2021-12-17 06:54 | disposition home or self-care (01) ==
LOC: ER 18:22
DX: E11.10 Type 2 diabetes mellitus with ketoacidosis without coma (principal); J18.9 Pneumonia, unspecified organism; F41.9 Anxiety disorder, unspecified; F32.9 Major depressive disorder, single episode, unspecified; K21.9 Gastro-esophageal reflux disease without esophagitis; E11.43 Type 2 diabetes mellitus with diabetic autonomic (poly)neuropathy; K31.84 Gastroparesis; Z20.822 Contact with and (suspected) exposure to COVID-19; Z87.891 Personal history of nicotine dependence; Z88.8 Allergy status to other drugs, medicaments and biological substances; Z88.6 Allergy status to analgesic agent
CPT/HCPCS: 36415; 71045; 80048; 80053; 80307; 81001; 81025; 82803; 82947; 83605; 83690; 83735; 84100; 84484; 85007; 85025; 87086; 87428; 93005; 96361; 96365; 96366; 96367; 96372; 96375; 99285; J0696; J1200; J1815; J1885; J2765; J3010; J7120

== ENCOUNTER 2021-12-20 01:00 | Emergency (ER) | payer MEDICAID ==
[~2021-12-20] VITALS: Ht 172.7 cm; Wt 53.0 kg
--- NOTE | 2021-12-20 01:31 | PHYS DOC ---
Past History Past Medical History: Anxiety, Constipation, Depression, Diabetes, GERD, Ovarian Cyst, Other Additional Past Medical Histor: gastroparesis, substance use disorder. Cyclic vomiting (YELENA CAMILO MD) Past Surgical History: Other Additional Past Surgical Histo: ovarian cyst;eyex3;earx3;port;chest tubes; bx of rt ankle (YELENA CAMILO MD) Smoking: Cigarettes, Less than 1pk/day, Quit Less Than 1 Year Alcohol Use: None Drug Use: Amphetamine, Marijuana, Methamphetamine (YELENA CAMILO MD) General Adult EDM: Chief Complaint: NAUSEA/VOMITING/DIARRHEA HPI: HPI: ",, I am cyclic vomiting again.. pain... here in my stomach..." Patient is a 31 year old female who presents with above hx and complaints of cyclic vomiting with abdomen pain. Patient is well-known to the emergency room staff for multiple ED evaluations for diabetic ketoacidosis and cyclic vomiting. Patient has had multiple ED evaluations and multiple admissions for her poorly controlled diabetes and episodes of DKA. Patient has a significant history of methamphetamine abuse, dehydration, gastroparesis, constipation, gastroenteritis, anxiety disorder, ovarian cyst, and persistent noncompliance with medical regimens. Patient does continue to smoke tobacco as well as frequent episodes of positive drug screens for methamphetamine.. Patient denies any trauma. Patient denies any HIV or immunosuppression other than her diabetes. Initial blood sugar sugar on today's visit was the lowest seen for some time with her at 172. The last hospital admission was on 12/11/2021 for similar type presentation (YELENA CAMILO MD) Review of Systems: Review of Systems: Constitutional: Denies fever or chills Eyes: Denies change in visual acuity HENT: Denies nasal congestion or sore throat Respiratory: Denies cough or shortness of breath Cardiovascular: Denies chest pain or edema GI: Complains of epigastric abdominal pain, nausea, vomiting, constipation.,. Bloody stools or diarrhea : Denies dysuria Musculoskeletal: Denies back pain or joint pain Integument: Denies rash Neurologic: Denies headache, focal weakness or sensory changes Endocrine: Denies polyuria or polydipsia Lymphatic: Denies swollen glands Psychiatric: Denies depression or anxiety (YELENA CAMILO MD) Family History: Family History: Noncontributory to current presentation (YELENA CAMILO MD) Current Medications: Current Meds: See nursing for home meds (YELENA CAMILO MD) Allergies: Allergies: Allergies Coded Allergies Type Severity Reaction Last Updated Verified adhesive tape Allergy Intermediate 09/16/21 Yes (YELENA CAMILO MD) Physical Exam: PE: Constitutional: In acute distress, ill and appearance. [] HENT: Normocephalic, atraumatic, bilateral external ears normal, oropharynx dry, no oral exudates, nose normal. [] Eyes: PERRLA, EOMI, conjunctiva normal, no discharge. [] Neck: Normal range of motion, no tenderness, supple, no stridor. [] Cardiovascular: Tachycardia heart rate regular rhythm, no murmur [] Lungs & Thorax: Bilateral breath sounds equal apex with few scattered wheezes on auscultation [] Abdomen: Bowel sounds decreased, soft, gastric tenderness, no masses, no pulsatile masses. Rebound epigastric. Distended Skin: Warm, dry, no erythema, no rash. Tattoos. Has poor turgor Back: No tenderness, no CVA tenderness. [] Extremities: No tenderness, no cyanosis, no clubbing, ROM intact, no edema. No cording. No psoas sign. Neurologic: Alert and oriented X 3, normal motor function, normal sensory function, no focal deficits noted. [] Psychologic: Affect anxious, judgement normal, mood depressed (YELENA CAMILO MD) PE: Constitutional: Well developed, thin, sleepy but arousable to voice HENT: Normocephalic, atraumatic Eyes: Conjunctiva normal, no discharge Neck: Normal range of motion, supple Lungs & Thorax: No respiratory distress, equal chest rise and fall Skin: Warm, dry, no erythema, no rash Neurologic: Alert and oriented X 3, no focal deficits noted Psychologic: Affect normal, judgment normal (VANESSA OLIVER DO) EKG: EKG: My interpretation EKG shows a sinus tachycardia with wide atrial bimodal P waves. No findings of acute STEMI or contralateral changes. Time of EKG is 219 hours [] (YELENA CAMILO MD) Radiology/Procedures: Radiology/Procedures: [] (YELENA CAMILO MD) Heart Score: C/O Chest Pain: N/A HEART Score for Chest Pain: HEART Score for Chest Pain Response (Comments) Value History Slighlty/Non-Suspicious 0 ECG Normal 0 Age < 45 0 Risk Factors 1 or 2 Risk Factors 1 Total 1 Risk Factors: Risk Factors: DM, Current or recent (<one month) smoker, HTN, HLP, family history of CAD, obesity. Risk Scores: Score 0 - 3: 2.5% MACE over next 6 weeks - Discharge Home Score 4 - 6: 20.3% MACE over next 6 weeks - Admit for Clinical Observation Score 7 - 10: 72.7% MACE over next 6 weeks - Early Invasive Strategies (YELENA CAMILO MD) Course & Med Decision Making: Course & Med Decision Making Pertinent Labs and Imaging studies reviewed. (See chart for details) Discussed presentation, testing and tx. plan with Dr. Pereira. Will accept pt for admission, but we may be able hydrate her adequately some point to allow her discharge home. Endorsed patient to Dr. Oliver at shift change. Impression: 1. Nausea and vomiting 2. Gastroparesis 3. Abdomen pain 4. Diabetes -glucose 170 2 repeat check 161 5. Anemia hemoglobin 10.8 6. Dehydration [] (YELENA CAMILO MD) Course & Med Decision Making 0600- sign out was received from Dr. Camilo for patient with acute on chronic nausea and vomiting. History of cyclic vomiting syndrome as well as gastroparesis. Patient is a poorly controlled diabetic. Labs reviewed. Electrolytes within normal limits. Patient awaiting UA. IV fluid hydration previously given x 2 liters and nausea addressed with Compazine/Benadryl. Patient seen and evaluated by myself. Reports still unable to provide UA. Third liter provided. Patient complains of "pain" but falls asleep during conversations. Ketorlac and pepcid provided. UA without signs of active infection. Contamination noted. Patient stable for discharge with outpatient follow-up with PCP. Discussed findings and plan with patient, who acknowledges understanding and agreement. (VANESSA OLIVER DO) Annelise Disclaimer: Annelise Disclaimer: This electronic medical record was generated, in whole or in part, using a voice recognition dictation system. (YELENA CAMILO MD) Departure Departure: Impression: Primary Impression: Nausea & vomiting Qualified Codes: R11.2 - Nausea with vomiting, unspecified Disposition: HOME / SELF CARE / HOMELESS Condition: STABLE Referrals: PCP,NO (PCP) Patient Instructions: Cyclic Vomiting Syndrome, Gastroparesis Scripts Hyoscyamine Sulfate (LEVSIN-SL) 0.125 Mg Tab.subl 0.125 MG SL Q6HRS PRN for PAIN, #14 TAB Prov: VANESSA OLIVER DO 12/20/21 Annelise Disclaimer This chart was dictated in whole or in part using Voice Recognition software in a busy, high-work load, and often noisy Emergency Department environment. It may contain unintended and wholly unrecognized errors or omissions. (YELENA CAMILO MD) YELENA CAMILO MD Dec 20, 2021 01:31 VANESSA OLIVER DO Dec 20, 2021 08:29
[2021-12-20] MEDS ORDERED: PROCHLORPERAZINE 10 MG/2 ML VIAL. IM ONE (02:00)
[2021-12-20] MEDS ORDERED: diphenhydrAMINE 50 MG/ML VIAL IM ONE (02:00)
--- NOTE | 2021-12-20 02:28 | EKG ---
[address] [address] Test Date: 2021-12-20 Test Time: 02:19:52 Pat Name: CHALO RAYMUNDO Department: Room: Gender: F Casting Assistant: : 1990 Requested By: YELENA HENRY Order Number: [id number] Reading MD: Mik Flowers Measurements Intervals [place] Rate: 102 P: 47 SC: 130 QRS: 78 QRSD: 86 T: 46 QT: 338 QTc: 445 Interpretive Statements SINUS TACHYCARDIA LEFT ATRIAL ABNORMALITY Electronically Signed On 12-21-2021 12:41:30 STEAM GIGGER by Mik Flowers
[2021-12-20] MEDS ORDERED: ONDANSETRON PF 4 MG/2 ML VIAL. IVP ONE (02:30)
[2021-12-20] MEDS ORDERED: MAGNESIUM HYDROXIDE 2,400 MG/30 ML ORAL.SUSP. PO ONE (02:30)
[2021-12-20] MEDS ORDERED: IV NORMAL SALINE 1,000ML 1,000 ML IV SCH (02:30)
[2021-12-20 02:58] LABS: BASO # 0.1 x10^3/uL (0.0-0.2); BASO % 1 % (0-3); EOS % 1 % (0-3); HEMATOCRIT 32.2 % (36.0-47.0); HEMOGLOBIN 10.8 g/dL (12.0-15.5); LYMPH % 37 % (24-48); MEAN CORPUSCULAR HEMOGLOBIN 30 pg (25-35); MEAN CORPUSCULAR HGB CONC 33 g/dL (31-37); MEAN CORPUSCULAR VOLUME 89 fL (79-100); MONO # 0.6 x10^3/uL (0.0-1.1); MONO % 12 % (0-9); NEUT # 2.6 x10^3uL (1.8-7.7); NEUT % 49 % (31-73); PLATELET COUNT 418 x10^3/uL (140-400); RED BLOOD COUNT 3.61 x10^6/uL (3.50-5.40); RED CELL DISTRIBUTION WIDTH 14.5 % (11.5-14.5); WHITE BLOOD COUNT 5.3 x10^3/uL (4.0-11.0)
[2021-12-20 03:01] LABS: CALCIUM 8.5 mg/dL (8.5-10.1); CREATININE 0.6 mg/dL (0.6-1.0); GFR 117.4; POTASSIUM 3.7 mmol/L (3.5-5.1)
[2021-12-20 03:07] LABS: ALBUMIN 2.8 g/dL (3.4-5.0); DIRECT BILIRUBIN 0.1 mg/dL (0.0-0.2); TOTAL BILIRUBIN 0.3 mg/dL (0.2-1.0); TOTAL PROTEIN 5.9 g/dL (6.4-8.2)
[2021-12-20] MEDS ORDERED: IV NORMAL SALINE 1,000ML 1,000 ML IV ONE ×2 (05:30→07:00)
[2021-12-20 07:18] LABS: INFLUENZA A PATIENT NEGATIVE (NEGATIVE); INFLUENZA B PATIENT NEGATIVE (NEGATIVE)
[2021-12-20 08:03] LABS: BARBITURATES NEG (NEG); BENZODIAZEPINES NEG (NEG); CANNABINOIDS POS (NEG); COCAINE NEG (NEG); METHADONE NEG (NEG); OPIATES NEG (NEG); PHENCYCLIDINE NEG (NEG)
[2021-12-20 08:08] LABS: BACTERIA,URINE FEW /HPF (0-FEW); BILIRUBIN,URINE NEG (NEG); CLARITY,URINE HAZY; COLOR,URINE STRAW; GLUCOSE,URINE NEG (NEG); NITRITE,URINE NEG (NEG); SQUAMOUS EPITHELIAL CELL,UR MANY /LPF; UROBILINOGEN,URINE 0.2 mg/dL (0.2 mg/dL)
[2021-12-20 08:13] LABS: AMPHETAMINE/METHAMPHETAMINE NEG (NEG)
[2021-12-20] MEDS ORDERED: FAMOTIDINE 20 MG/2 ML VIAL IVP ONE (08:15)
[2021-12-20] MEDS ORDERED: KETOROLAC 15 MG/ML VIAL. IVP ONE (08:15)
[2021-12-20] MEDS ORDERED: HYOS0.1265 SL (08:29)
[2021-12-20 08:30] VITALS: BP 124/80
== END 2021-12-20 08:34 | disposition home or self-care (01) ==
LOC: ER 01:00
DX: R11.2 Nausea with vomiting, unspecified (principal); Z20.822 Contact with and (suspected) exposure to COVID-19; R10.13 Epigastric pain; K59.00 Constipation, unspecified; K21.9 Gastro-esophageal reflux disease without esophagitis; E11.10 Type 2 diabetes mellitus with ketoacidosis without coma; Z87.891 Personal history of nicotine dependence; Z88.8 Allergy status to other drugs, medicaments and biological substances
CPT/HCPCS: 36415; 80048; 80076; 80307; 81001; 82550; 82947; 84484; 85025; 87428; 93005; 96361; 96372; 96374; 96375; 99284; J0780; J1200; J1885; J2405; J3490; J7030

== ENCOUNTER 2022-01-11 00:23 | Emergency (ER) | payer MEDICAID | END 2022-01-11 00:26 | disposition left against medical advice (07) | LOC: ER 00:23 | DX: R11.2 Nausea with vomiting, unspecified (principal); R73.9 Hyperglycemia, unspecified; Z53.21 Procedure and treatment not carried out due to patient leaving prior to being seen by health care provider ==

== ENCOUNTER 2022-01-13 12:44 | Emergency (ER) | payer MEDICAID ==
[~2022-01-13] VITALS: Ht 172.7 cm; Wt 53.0 kg
[2022-01-13] MEDS ORDERED: IV NORMAL SALINE 1,000ML 1,000 ML IV ONE ×2 (13:30→15:30)
[2022-01-13] MEDS ORDERED: ONDANSETRON PF 4 MG/2 ML VIAL. IVP ONE (13:30)
[2022-01-13 13:52] LABS: BASO # 0.1 x10^3/uL (0.0-0.2); BASO % 1 % (0-3); CREATININE 0.9 mg/dL (0.6-1.0); EOS # 0.1 x10^3/uL (0.0-0.7); EOS % 1 % (0-3); GFR 73.5; HEMATOCRIT 39.5 % (36.0-47.0); HEMOGLOBIN 13.1 g/dL (12.0-15.5); LYMPH # 2.1 x10^3/uL (1.0-4.8); LYMPH % 23 % (24-48); MEAN CORPUSCULAR HEMOGLOBIN 30 pg (25-35); MEAN CORPUSCULAR HGB CONC 33 g/dL (31-37); MEAN CORPUSCULAR VOLUME 92 fL (79-100); MONO # 0.5 x10^3/uL (0.0-1.1); MONO % 5 % (0-9); NEUT # 6.5 x10^3uL (1.8-7.7); NEUT % 70 % (31-73); PLATELET COUNT 406 x10^3/uL (140-400); POTASSIUM 5.3 mmol/L (3.5-5.1); RED BLOOD COUNT 4.31 x10^6/uL (3.50-5.40); RED CELL DISTRIBUTION WIDTH 14.7 % (11.5-14.5); WHITE BLOOD COUNT 9.3 x10^3/uL (4.0-11.0)
[2022-01-13 13:58] LABS: ALBUMIN 3.8 g/dL (3.4-5.0); TOTAL BILIRUBIN 0.8 mg/dL (0.2-1.0); TOTAL PROTEIN 7.6 g/dL (6.4-8.2)
[2022-01-13] MEDS ORDERED: INSULIN REGULAR 100 UNIT/ML 3ML VIAL. IV ONE ×3 (14:15→16:45)
[2022-01-13] MEDS ORDERED: KETOROLAC 15 MG/ML VIAL. IVP ONE (14:15)
[2022-01-13 14:45] VITALS: BP 102/56
--- NOTE | 2022-01-13 15:35 | PHYS DOC ---
Past History Past Medical History: Anxiety, Constipation, Depression, Diabetes, GERD, Ovarian Cyst, Other Additional Past Medical Histor: gastroparesis, substance use disorder. Cyclic vomiting (TU CASTANEDA APRN) Past Surgical History: Other Additional Past Surgical Histo: ovarian cyst;eyex3;earx3;port;chest tubes; bx of rt ankle (TU CASTANEDA APRN) Smoking: Cigarettes, Less than 1pk/day, Quit Less Than 1 Year Alcohol Use: Occasionally Drug Use: Amphetamine, Marijuana, Methamphetamine (TU CASTANEDA APRN) General Adult EDM: Chief Complaint: BLOOD SUGAR PROBLEM HPI: HPI: Patient is a 31-year-old female presents with vomiting, elevated blood sugar, weakness. Patient states she has not taken her insulin since last night. Patient states that she woke up this morning and felt very weak and had body aches. Blood sugar on arrival was 416. Patient was afebrile. Heart rate was slightly elevated, 114. Patient denies taking anything at home for pain or nausea. Denies chest pain, shortness of breath. Patient has been admitted numerous time for uncontrolled blood sugar and DKA. Patient has history of anxiety, depression, diabetes, substance abuse. (TU CASTANEDA ENVIRONMENTAL INSPECTOR) Review of Systems: Review of Systems: ROS At least 10 ROS systems have been reviewed and are negative except as documented in the HPI. General: Negative except as outlined in HPI above. Skin: Negative except as outlined in HPI above. HEENT: Negative except as outlined in HPI above. Neck: Negative except as outlined in HPI above. Respiratory: Negative except as outlined in HPI above.. Cardiovascular: Negative except as outlined in HPI above. Abdomen: Negative except as outlined in HPI above. : Negative except as outlined in HPI above. Back/MSK: Negative except as outlined in HPI above. Neuro: Negative except as outlined in HPI above. Psych: Negative except as outlined in HPI above. (TU CASTANEDA ENVIRONMENTAL INSPECTOR) Current Medications: Current Meds: Current Medications Medications (Trade) Dose Ordered Sig/Chevy Start Time Stop Time Status Last Admin Dose Admin Insulin Human Regular (HumuLIN R VIAL) 10 unit 1X ONCE 01/13/22 15:30 01/13/22 15:31 Ketorolac Tromethamine (Toradol 15mg Vial) 15 mg 1X ONCE 01/13/22 14:15 01/13/22 14:17 DC 01/13/22 14:15 15 MG Ondansetron HCl (Zofran) 4 mg 1X ONCE 01/13/22 13:30 01/13/22 13:43 DC 01/13/22 13:49 4 MG Sodium Chloride 1,000 ml @ 1,000 mls/hr 1X ONCE 01/13/22 15:30 01/13/22 16:29 01/13/22 15:21 1,000 MLS/HR (TU CASTANEDA APRN) Allergies: Allergies: Allergies Coded Allergies Type Severity Reaction Last Updated Verified adhesive tape Allergy Intermediate 09/16/21 Yes (TU CASTANEDA APRN) Physical Exam: PE: Constitutional: Well developed, well nourished, no acute distress, non-toxic appearance. [] HENT: Normocephalic, atraumatic, bilateral external ears normal, oropharynx moist, no oral exudates, nose normal. [] Eyes: PERRLA, EOMI, conjunctiva normal, no discharge. [] Neck: Normal range of motion, no tenderness, supple, no stridor. [] Cardiovascular:Heart rate sinus tachycardia Lungs & Thorax: Bilateral breath sounds clear to auscultation [] Abdomen: Bowel sounds normal, soft, generalized abdominal tenderness Skin: Warm, dry, no erythema, no rash. [] Back: No tenderness, no CVA tenderness. [] Extremities: No tenderness, no cyanosis, no clubbing, ROM intact, no edema. [] Neurologic: Alert and oriented X 3, normal motor function, normal sensory function, no focal deficits noted. [] Psychologic: Tearful, anxious (TU CASTANEDA APRN) Current Patient Data: Labs: Laboratory Tests Test 01/13/22 12:51 01/13/22 13:19 01/13/22 15:14 Glucose (Fingerstick) 415 mg/dL (70-99) H 396 mg/dL (70-99) H White Blood Count 9.3 x10^3/uL (4.0-11.0) Red Blood Count 4.31 x10^6/uL (3.50-5.40) Hemoglobin 13.1 g/dL (12.0-15.5) Hematocrit 39.5 % (36.0-47.0) Mean Corpuscular Volume 92 fL (79-100) Mean Corpuscular Hemoglobin 30 pg (25-35) Mean Corpuscular Hemoglobin Concent 33 g/dL (31-37) Red Cell Distribution Width 14.7 % (11.5-14.5) H Platelet Count 406 x10^3/uL (140-400) H Neutrophils (%) (Auto) 70 % (31-73) Lymphocytes (%) (Auto) 23 % (24-48) L Monocytes (%) (Auto) 5 % (0-9) Eosinophils (%) (Auto) 1 % (0-3) Basophils (%) (Auto) 1 % (0-3) Neutrophils # (Auto) 6.5 x10^3uL (1.8-7.7) Lymphocytes # (Auto) 2.1 x10^3/uL (1.0-4.8) Monocytes # (Auto) 0.5 x10^3/uL (0.0-1.1) Eosinophils # (Auto) 0.1 x10^3/uL (0.0-0.7) Basophils # (Auto) 0.1 x10^3/uL (0.0-0.2) Sodium Level 127 mmol/L (136-145) L Potassium Level 5.3 mmol/L (3.5-5.1) H Chloride Level 89 mmol/L (98-107) L Carbon Dioxide Level 17 mmol/L (21-32) L Anion Gap 21 (6-14) H Blood Urea Nitrogen 26 mg/dL (7-20) H Creatinine 0.9 mg/dL (0.6-1.0) Estimated GFR (Cockcroft-Gault) 73.5 BUN/Creatinine Ratio 29 (6-20) H Glucose Level 436 mg/dL (70-99) H Lactic Acid Level 1.6 mmol/L (0.4-2.0) Calcium Level 9.0 mg/dL (8.5-10.1) Total Bilirubin 0.8 mg/dL (0.2-1.0) Aspartate Amino Transferase (AST) 21 U/L (15-37) Alanine Aminotransferase (ALT) 27 U/L (14-59) Alkaline Phosphatase 109 U/L (46-116) Total Protein 7.6 g/dL (6.4-8.2) Albumin 3.8 g/dL (3.4-5.0) Albumin/Globulin Ratio 1.0 (1.0-1.7) Vital Signs: Vital Signs Date Time Temp Pulse Resp B/P (MAP) Pulse Ox O2 Delivery O2 Flow Rate FiO2 01/13/22 14:45 122 18 102/56 (71) 100 01/13/22 12:48 98.1 (TU CASTANEDA APRN) EKG: EKG: [] (TU CASTANEDA APRN) Radiology/Procedures: Radiology/Procedures: [] (TU CASTANEDA APRN) Heart Score: C/O Chest Pain: No Risk Factors: Risk Factors: DM, Current or recent (<one month) smoker, HTN, HLP, family history of CAD, obesity. Risk Scores: Score 0 - 3: 2.5% MACE over next 6 weeks - Discharge Home Score 4 - 6: 20.3% MACE over next 6 weeks - Admit for Clinical Observation Score 7 - 10: 72.7% MACE over next 6 weeks - Early Invasive Strategies (TU CASTANEDA APRN) Course & Med Decision Making: Course & Med Decision Making Pertinent Labs and Imaging studies reviewed. (See chart for details) [] 31-year-old female presents with vomiting, elevated blood sugar, weakness and body aches. Afebrile in the ER. Patient's heart rate was slightly elevated at 114, NS bolus given. 10units of insulin given. Blood sugar on arrival was 416. Patient reports she has not taken her insulin since last night. Patient has been seen multiple times in this ER for elevated blood sugar. Patient given Zofran and Toradol to treat nausea and pain. Blood sugars decreased on reassessment, 396. Potassium, 5.3, anion gap 21. Second liter bolus and 10 units of insulin given. Patient is reporting that she feels much better and is ready to eat. Advised patient she would need to be admitted for DKA. Patient is refusing to be admitted to the hospital. Patient states that if she gets admitted they will not allow her to eat and she wants to go home and eat. Patient was sent with a antibiotic to treat UTI. Discussed risk of leaving AMA. Discussed loss of limb, disability, and possibility of . Patient states that she does not care and that she is leaving AMA. Patient signed AMA paperwork. (TU CASTANEDA APRN) Annelise Disclaimer: Annelise Disclaimer: This electronic medical record was generated, in whole or in part, using a voice recognition dictation system. (TU CASTANEDA APRN) Attending Co-Sign The patient was seen and interviewed as well as examined at the bedside. The chart was reviewed. The case was discussed. Agree with the plan of care. (ROXY SU DO) Departure Departure: Impression: Primary Impression: DKA (diabetic ketoacidoses) Additional Impression: UTI (urinary tract infection) Qualified Codes: N30.01 - Acute cystitis with hematuria Disposition: LEFT AGAINST MEDICAL ADVICE Condition: STABLE Referrals: PCP,NO (PCP) Patient Instructions: Diabetic Ketoacidosis Additional Instructions: You came into the emergency room for nausea and vomiting. You were instructed that you needed to stay overnight and be treated for DKA. You refused to stay and decided to leave AMA. I discussed the risk of if you were to leave the hospital. You stated that you were aware of the risk and wanted to go home. Make sure you are taking your insulin as directed. Drink plenty of fluids. Take your antibiotics as scheduled and as directed. Please return the emergency room if you have worsening symptoms or concerns. EMERGENCY DEPARTMENT GENERAL DISCHARGE INSTRUCTIONS Thank you for coming to [facility] (ED) today and trusting us with you care. We trust that you had a positivie experience in our Emergency Department. If you wish to speak to the department management, you may call the director at . YOUR FOLLOW UP INSTRUCTIONS ARE FOLLOWS: 1. Do you have a private Doctor? If you do not have a private doctor, please ask for a resource list of physicians or clinics that may be able to assist you with follow up care. 2. The Emergency Physician has interpreted your x-rays. The X-Ray specialist will also review them. If there is a change in the findings, you will be notified in 48 hours when at all possible. 3. A lab test or culture has been done, your results will be reviewed and you will be notified if you need a change in treatment. ADDITIONAL INSTRUCTIONS AND INFORMATION: 1. Your care today has been supervised by a physician who is specially trained in emergency care. Many problems require more than one evaluation for a complete diagnosis and treatment. We recommend that you schedule your follow up appointment as recommended to ensure complete treatment of you illness or injury. If you are unable to obtain follow up care and continue to have a problem, or if your condition worsens, we recommend that you return to the ED. 2. We are not able to safely determine your condition over the phone nor are we able to give sound medical advice over the phone. For these safety reasons, if you call for medical advice we will ask you to come to the ED for further evaluation. 3. If you have any questions regarding these discharge instructions please call the ED at [phone]. SAFETY INFORMATION: In the interest of safety, wellness, and injury prevention; we encourage you to wear your sealbelt, if you smoke; quite smoking, and we encourage family to use a protective helmet for bicycling and other sporting events that present an increased risk for head injury. IF YOUR SYMPTOMS WORSEN OR NEW SYMPTOMS DEVELOP, OR YOU HAVE CONCERNS ABOUT YOUR CONDITION; OR IF YOUR CONDITION WORSENS WHILE YOU ARE WAITING FOR YOUR FOLLOW UP APPOINTMENT; EITHER CONTACT YOUR PRIMARY CARE DOCTOR, THE PHYSICIAN WHOSE NAME AND NUMBER YOU WERE GIVEN, OR RETURN TO THE ED IMMEDIATELY. Scripts Nitrofurantoin Monohyd/M-Cryst (MACROBID 100 MG CAPSULE) 100 Mg Capsule 1 CAP PO BID for UTI for 7 Days, #14 CAP 0 Refills Prov: TU CASTANEDA APRN 01/13/22 TU CASTANEDA APRN Jan 13, 2022 15:35 ROXY SU DO Jan 14, 2022 19:50
[2022-01-13 17:04] LABS: BACTERIA,URINE 0 /HPF (0-FEW); CLARITY,URINE CLEAR; COLOR,URINE YELLOW; GLUCOSE,URINE 500 mg/dL (NEG); HYALINE CASTS, URINE OCC /HPF; NITRITE,URINE NEG (NEG); SQUAMOUS EPITHELIAL CELL,UR MOD /LPF; UROBILINOGEN,URINE 0.2 mg/dL (0.2 mg/dL)
[2022-01-13 18:05] LABS: BARBITURATES NEG (NEG); BENZODIAZEPINES NEG (NEG); CANNABINOIDS NEG (NEG); COCAINE NEG (NEG); METHADONE NEG (NEG); OPIATES NEG (NEG); PHENCYCLIDINE NEG (NEG)
[2022-01-13 18:07] LABS: AMPHETAMINE/METHAMPHETAMINE POS (NEG)
[2022-01-13] MEDS ORDERED: NITR100C62 PO (18:40)
== END 2022-01-13 18:44 | disposition home or self-care (01) ==
LOC: ER 12:44
DX: E11.10 Type 2 diabetes mellitus with ketoacidosis without coma (principal); N30.01 Acute cystitis with hematuria; R10.84 Generalized abdominal pain; E11.65 Type 2 diabetes mellitus with hyperglycemia; F41.9 Anxiety disorder, unspecified; F32.9 Major depressive disorder, single episode, unspecified; K21.9 Gastro-esophageal reflux disease without esophagitis; Z87.891 Personal history of nicotine dependence; Z88.8 Allergy status to other drugs, medicaments and biological substances
CPT/HCPCS: 36415; 80053; 80307; 81001; 81025; 82947; 83605; 85025; 87086; 96361; 96374; 96375; 96376; 99284; J1815; J1885; J2405; J7030

== ENCOUNTER 2022-03-02 18:04 | Emergency (ER) | payer MEDICAID ==
[~2022-03-02] VITALS: Ht 172.7 cm; Wt 53.0 kg
[~2022-03-02 18:04] MED LIST changes: +NITR100C62 PO
[2022-03-02] MEDS ORDERED: IV RINGERS SOLUTION,LACTATED 1,000 ML IV ONE ×2 (18:15→20:15)
[2022-03-02 18:40] LABS: BASO # 0.1 x10^3/uL (0.0-0.2); BASO % 1 % (0-3); EOS # 0.1 x10^3/uL (0.0-0.7); EOS % 0 % (0-3); HEMATOCRIT 44.4 % (36.0-47.0); HEMOGLOBIN 14.4 g/dL (12.0-15.5); LYMPH # 2.1 x10^3/uL (1.0-4.8); LYMPH % 17 % (24-48); MEAN CORPUSCULAR HEMOGLOBIN 30 pg (25-35); MEAN CORPUSCULAR HGB CONC 32 g/dL (31-37); MEAN CORPUSCULAR VOLUME 92 fL (79-100); MONO # 0.4 x10^3/uL (0.0-1.1); MONO % 3 % (0-9); NEUT # 10.2 x10^3uL (1.8-7.7); NEUT % 79 % (31-73); PLATELET COUNT 401 x10^3/uL (140-400); RED BLOOD COUNT 4.82 x10^6/uL (3.50-5.40); RED CELL DISTRIBUTION WIDTH 13.7 % (11.5-14.5); WHITE BLOOD COUNT 12.9 x10^3/uL (4.0-11.0)
[2022-03-02] MEDS ORDERED: KETOROLAC 15 MG/ML VIAL. IVP ONE (19:00)
[2022-03-02] MEDS ORDERED: PROCHLORPERAZINE 10 MG/2 ML VIAL. IV ONE (19:00)
[2022-03-02] MEDS ORDERED: MORPHINE SULFATE 4 MG/ML DISP.SYRIN. IV ONE (20:15)
--- NOTE | 2022-03-02 20:39 | PHYS DOC ---
Past History Past Medical History: Anxiety, Constipation, Depression, Diabetes, GERD, Ovarian Cyst, Other Additional Past Medical Histor: gastroparesis, substance use disorder, cyclic vomiting (NICOLAS MACIAS) Past Medical History: Diabetes (YELENA CAMILO MD) Past Surgical History: Other Additional Past Surgical Histo: ovarian cyst;eyex3;earx3;port;chest tubes; bx of rt ankle (NICOLAS MACIAS) Smoking: Cigarettes, Less than 1pk/day Alcohol Use: Occasionally Drug Use: Amphetamine, Marijuana, Methamphetamine (NICOLAS MACIAS) Smoking: Cigarettes Alcohol Use: Rarely Drug Use: Amphetamine, Marijuana, Opiates (YELENA CAMILO MD) General Adult EDM: Chief Complaint: HYPERGLYCEMIA HPI: HPI: Patient is a 31-year-old female well-known to the emergency department who presents with 2-day history of nausea, vomiting and abdominal pain. Patient frequently presents with similar complaints. Patient is still independent diabetic. She denies any other medications or illicit drug use. She rates her pain 10/10 and constant. Patient has no other complaints at this time. (NICOLAS MACIAS) Review of Systems: Review of Systems: ROS negative or noncontributory except as mentioned in HPI. (NICOLAS MACIAS) Current Medications: Current Meds: Current Medications Medications (Trade) Dose Ordered Sig/Chevy Start Time Stop Time Status Last Admin Dose Admin Ketorolac Tromethamine (Toradol 15mg Vial) 15 mg 1X ONCE 03/02/22 19:00 03/02/22 19:01 DC 03/02/22 19:00 15 MG Lactated Ringer's 1,000 ml @ 1,000 mls/hr 1X ONCE 03/02/22 20:15 03/02/22 21:14 03/02/22 20:15 1,000 MLS/HR Morphine Sulfate (Morphine 4mg Syringe) 4 mg 1X ONCE 03/02/22 20:15 03/02/22 20:27 DC 03/02/22 20:15 4 MG Prochlorperazine Edisylate (Compazine) 10 mg 1X ONCE 03/02/22 19:00 03/02/22 19:01 DC 03/02/22 19:00 10 MG (NICOLAS MACIAS) Allergies: Allergies: Allergies Coded Allergies Type Severity Reaction Last Updated Verified adhesive tape Allergy Intermediate 09/16/21 Yes (NICOLAS MACIAS) Physical Exam: PE: Constitutional: Well developed, well nourished, no acute distress, non-toxic appearance. [] HENT: Normocephalic, atraumatic, bilateral external ears normal, oropharynx moist, no oral exudates, nose normal. [] Eyes: PERRLA, EOMI, conjunctiva normal, no discharge. [] Neck: Normal range of motion, no tenderness, supple, no stridor. [] Cardiovascular:Heart rate regular rhythm, no murmur [] Lungs & Thorax: Bilateral breath sounds clear to auscultation [] Abdomen: Bowel sounds normal, soft, no tenderness, no masses, no pulsatile masses. [] Skin: Warm, dry, no erythema, no rash. [] Back: No tenderness, no CVA tenderness. [] Extremities: No tenderness, no cyanosis, no clubbing, ROM intact, no edema. [] Neurologic: Alert and oriented X 3, normal motor function, normal sensory function, no focal deficits noted. [] Psychologic: Affect normal, judgement normal, mood normal. [] (NICOLAS MACIAS) Current Patient Data: Labs: Laboratory Tests Test 03/02/22 18:08 03/02/22 18:19 Glucose (Fingerstick) 524 mg/dL (70-99) *H White Blood Count 12.9 x10^3/uL (4.0-11.0) H Red Blood Count 4.82 x10^6/uL (3.50-5.40) Hemoglobin 14.4 g/dL (12.0-15.5) Hematocrit 44.4 % (36.0-47.0) Mean Corpuscular Volume 92 fL (79-100) Mean Corpuscular Hemoglobin 30 pg (25-35) Mean Corpuscular Hemoglobin Concent 32 g/dL (31-37) Red Cell Distribution Width 13.7 % (11.5-14.5) Platelet Count 401 x10^3/uL (140-400) H Neutrophils (%) (Auto) 79 % (31-73) H Lymphocytes (%) (Auto) 17 % (24-48) L Monocytes (%) (Auto) 3 % (0-9) Eosinophils (%) (Auto) 0 % (0-3) Basophils (%) (Auto) 1 % (0-3) Neutrophils # (Auto) 10.2 x10^3uL (1.8-7.7) H Lymphocytes # (Auto) 2.1 x10^3/uL (1.0-4.8) Monocytes # (Auto) 0.4 x10^3/uL (0.0-1.1) Eosinophils # (Auto) 0.1 x10^3/uL (0.0-0.7) Basophils # (Auto) 0.1 x10^3/uL (0.0-0.2) POC Venous pH 7.25 (7.32-7.42) L POC Venous pCO2 21 mmHg (41-51) L POC Venous pO2 45 mmHg (20-40) H Venous Blood HCO3 9 mmol/L (24-28) L POC Venous O2 Saturation (Angelique) 74 % POC FiO2 21 Lactic Acid Level 2.8 mmol/L (0.4-2.0) H Vital Signs: Vital Signs Date Time Temp Pulse Resp B/P (MAP) Pulse Ox O2 Delivery O2 Flow Rate FiO2 03/02/22 20:33 136 16 89/50 (63) 100 Room Air 03/02/22 18:21 98.5 (NICOLAS MACIAS) EKG: EKG: My interpretation of EKG shows a sinus tachycardia 121 bpm. No acute morphology appreciated. No findings acute STEMI of contralateral changes. Time of this EKG is 2322 hrs. (YELENA CAMILO MD) Heart Score: C/O Chest Pain: No (NICOLAS MACIAS) Course & Med Decision Making: Course & Med Decision Making Pertinent Labs and Imaging studies reviewed. (See chart for details) Patient is a 31-year-old diabetic female well-known to the emergency department. Today she presents with usual complaint of abdominal pain, nausea and vomiting. Today, her blood sugar is greater than 500. Patient has had multiple chemistry tubes hemolyzed. Lab attempted to draw as well, but it still hemolyzed. Patient will be given more fluids and we will reattempt. After approximately 1.5 L of fluid, blood sugar did increase by about 50. Patient was given a bolus of 10 units regular insulin. At this time, we do not have a potassium level, so insulin bolus will not be initiated at this time. While awaiting further labs and monitoring, patient care was transferred to Dr. Camilo, attending the emergency department. Thorough handout was discussed upon my departure. (NICOLAS MACAIS) Course & Med Decision Making See Mychal note for details prior shift change. Patient well-known to ED staff for frequent presentations for DKA and poor compliance with diabetic regimen.. History of frequent ED evaluations and admits. Has past history of polysubstance abuse, noncompliant, cyclic vomiting, gastroparesis, chronic pain, diabetes, DKA admissions. Patient currently following at [facility]. Discussed presentation, testing and tx. plan with Dr. Pereira. - advised admit to his service here or at [facility] No ICU beds currently at [place]. [facility]-currently has no currently available beds. Nurse advised to attempt to re- align bed assignment at [facility]. Holding in ED-awaiting nursing approval for transfer to [facility] -2230 hrs. Pt. currently refusing Lab draws at 215 hrs. Still no beds at [place] at 306 hours Room available at [facility] - 109. 0345 hrs. Lab. to re- draw. Lab re- draw completed as pt. transport arrived. Last Glucose 268 prior transport.. Will hold insulin during transport- possible restart- on recheck of lab results. 0430 hrs. Impression: 1. DKA 2. Dehydration 3. Hyperglycemia 641 4. Leukocytosis 12.9-repeat 15.9 5. Urinary tract infection 6. Multiple abnormal electrolytes-sodium 125, chloride 88. Bicarbonate.8 and anion gap 29 7. Critical potassium 7.5 8. Acute renal failure-BUN 46/creatinine 1.7 - Repeat BUN 42/ Creat. 1.4 9.. Drug screen positive for narcotics and methamphetamine 10. Metabolic acidosis pH 7.2-venous 11. Anemia Hgb- 11.8 12. Malnutrition- Alb. 2.6 (YELENA CAMILO MD) Dragon Disclaimer: Annelise Disclaimer: This electronic medical record was generated, in whole or in part, using a voice recognition dictation system. (NICOLAS MACIAS) Departure Departure: Referrals: PCP,NO (PCP) NICOLAS MACIAS Mar 02, 2022 20:39 YELENA CAMILO MD Mar 02, 2022 22:26
[2022-03-02] MEDS ORDERED: INSULIN REGULAR 100 UNIT/ML 3ML VIAL. IV ONE (21:30)
[2022-03-02 22:11] LABS: ALBUMIN 3.1 g/dL (3.4-5.0); ALBUMIN/GLOBULIN RATIO 0.9 (1.0-1.7); CALCIUM 8.6 mg/dL (8.5-10.1); CREATININE 1.7 mg/dL (0.6-1.0); GFR 35.3; TOTAL BILIRUBIN 0.8 mg/dL (0.2-1.0); TOTAL PROTEIN 6.6 g/dL (6.4-8.2)
[2022-03-02 22:18] LABS: POTASSIUM 7.5 mmol/L (3.5-5.1)
[2022-03-02 22:25] LABS: U PREG PATIENT NEGATIVE (NEG)
[2022-03-02 22:30] LABS: CLARITY,URINE CLOUDY; COLOR,URINE YELLOW; GLUCOSE,URINE 500 mg/dL (NEG); NITRITE,URINE NEG (NEG); RBC,URINE 20-40 /HPF (0-2); UROBILINOGEN,URINE 0.2 mg/dL (0.2 mg/dL)
[2022-03-02 22:31] LABS: BACTERIA,URINE MANY /HPF (0-FEW); SQUAMOUS EPITHELIAL CELL,UR MANY /LPF; WBC,URINE TNTC /HPF (0-4)
[2022-03-02] MEDS ORDERED: IV NORMAL SALINE 1,000ML 1,000 ML IV ONE (22:45)
[2022-03-02] MEDS ORDERED: SODIUM BICARB ADULT 8.4% 50 MEQ/50 ML DISP.SYRIN. IV ONE (22:45)
[2022-03-02] MEDS ORDERED: CALCIUM CHLORIDE 1,000 MG/10 ML DISP.SYRIN IV ONE (22:45)
[2022-03-02] MEDS ORDERED: ALBUTEROL SULFATE 2.5 MG/3 ML NEBU. CONT NEB ONE (22:45)
[2022-03-02] MEDS ORDERED: INSULIN REGULAR VIAL 100 UNIT in IV NORMAL SALINE 100ML 100 ML IV PRN (22:45)
[2022-03-02] MEDS ORDERED: SODIUM POLYSTYRENE SULFONATE 15 GM/60 ML ORAL.SUSP. PO ONE (22:45)
[2022-03-02] MEDS ORDERED: cefTRIAXone IM 1 GM VIAL IM ONE (23:15)
--- NOTE | 2022-03-02 23:26 | EKG ---
[address] [address] Test Date: 2022-03-02 Test Time: 23:22:14 Pat Name: CHALO RAYMUNDO Department: Room: Gender: F Commercial Technician: : 1990 Requested By: YELENA HENRY Order Number: [id number] Reading MD: Vasquez Moyer Measurements Intervals [place] Rate: 121 P: 72 NH: 138 QRS: 79 QRSD: 82 T: 39 QT: 300 QTc: 429 Interpretive Statements SINUS TACHYCARDIA Electronically Signed On 03-04-2022 13:21:33 CDT by Vasquez Moyer
[2022-03-03 00:30] LABS: BARBITURATES NEG (NEG); BENZODIAZEPINES NEG (NEG); CANNABINOIDS NEG (NEG); COCAINE NEG (NEG); METHADONE NEG (NEG); OPIATES POS (NEG); PHENCYCLIDINE NEG (NEG)
[2022-03-03 00:31] LABS: AMPHETAMINE/METHAMPHETAMINE POS (NEG)
[2022-03-03] MEDS ORDERED: IV NORMAL SALINE 1,000ML 1,000 ML IV ONE ×2 (00:45→03:00)
[2022-03-03 04:30] VITALS: BP 94/43
[2022-03-03 04:32] LABS: BASO # 0.1 x10^3/uL (0.0-0.2); BASO % 1 % (0-3); EOS % 0 % (0-3); HEMATOCRIT 36.3 % (36.0-47.0); HEMOGLOBIN 11.8 g/dL (12.0-15.5); LYMPH # 3.3 x10^3/uL (1.0-4.8); LYMPH % 21 % (24-48); MEAN CORPUSCULAR HEMOGLOBIN 29 pg (25-35); MEAN CORPUSCULAR HGB CONC 33 g/dL (31-37); MEAN CORPUSCULAR VOLUME 90 fL (79-100); MONO # 0.7 x10^3/uL (0.0-1.1); MONO % 4 % (0-9); NEUT # 11.8 x10^3uL (1.8-7.7); NEUT % 74 % (31-73); PLATELET COUNT 324 x10^3/uL (140-400); RED BLOOD COUNT 4.03 x10^6/uL (3.50-5.40); RED CELL DISTRIBUTION WIDTH 13.4 % (11.5-14.5); WHITE BLOOD COUNT 15.9 x10^3/uL (4.0-11.0)
[2022-03-03 04:45] LABS: CALCIUM 8.2 mg/dL (8.5-10.1); CREATININE 1.4 mg/dL (0.6-1.0); GFR 44.2; POTASSIUM 4.1 mmol/L (3.5-5.1)
[2022-03-03 04:50] LABS: ALBUMIN 2.6 g/dL (3.4-5.0); DIRECT BILIRUBIN 0.1 mg/dL (0.0-0.2); TOTAL BILIRUBIN 0.3 mg/dL (0.2-1.0); TOTAL PROTEIN 5.3 g/dL (6.4-8.2)
[2022-03-03 06:09] LABS: % LYMPHS 24 % (24-48); % MONOS 5 % (0-10); % SEGS 71 % (35-66); PLATELET CLUMP PRESENT; PLT ESTIMATE ADEQUATE (ADEQUATE)
[2022-03-03 06:10] LABS: ANISOCYTOSIS SLIGHT
== END 2022-03-03 04:30 ==
LOC: ER 18:04
DX: E11.10 Type 2 diabetes mellitus with ketoacidosis without coma (principal); E11.65 Type 2 diabetes mellitus with hyperglycemia; E86.0 Dehydration; D72.829 Elevated white blood cell count, unspecified; N39.0 Urinary tract infection, site not specified; E87.8 Other disorders of electrolyte and fluid balance, not elsewhere classified; N17.9 Acute kidney failure, unspecified; E87.2 Acidosis; D64.9 Anemia, unspecified; E46 Unspecified protein-calorie malnutrition; K21.9 Gastro-esophageal reflux disease without esophagitis; F17.210 Nicotine dependence, cigarettes, uncomplicated; F15.10 Other stimulant abuse, uncomplicated; F12.10 Cannabis abuse, uncomplicated; F11.10 Opioid abuse, uncomplicated; Z20.822 Contact with and (suspected) exposure to COVID-19; Z68.1 Body mass index [BMI] 19.9 or less, adult; Z88.8 Allergy status to other drugs, medicaments and biological substances
CPT/HCPCS: 36415; 80048; 80053; 80076; 80307; 81001; 81025; 82803; 82947; 83605; 83690; 85007; 85025; 87086; 87147; 87426; 93005; 94640; 96361; 96365; 96366; 96372; 96375; 96376; 99285; C9803; G0480; J0696; J0780; J1815; J1885; J2270; J7030; J7120; J7613; U0003

== ENCOUNTER 2022-03-05 17:49 | Observation (INO) | payer MEDICAID ==
[~2022-03-05] VITALS: Ht 172.7 cm; Wt 61.0 kg
[2022-03-05] MEDS ORDERED: IV NORMAL SALINE 1,000ML 1,000 ML IV SCH (18:15)
--- NOTE | 2022-03-05 18:16 | PHYS DOC ---
Past History Past Medical History: Diabetes Additional Past Medical Histor: gastroparesis, substance use disorder, cyclic vomiting (VLADISLAV ALBERTO APRN) Past Surgical History: Other Additional Past Surgical Histo: ovarian cyst;eyex3;earx3;port;chest tubes; bx of rt ankle (VLADISLAV ALBERTO APRN) Smoking: Cigarettes Alcohol Use: Rarely Drug Use: Amphetamine, Marijuana, Opiates (VLADISLAV ALBERTO APRN) General Adult EDM: Chief Complaint: ABDOMINAL PAIN HPI: HPI: Is a 31-year-old female who presents to the emergency department for generalized abdominal pain with nausea and vomiting that started this morning. Patient is a diabetic and reports that her blood sugar was greater than 300. She has a history of DKA. She rates her abdominal pain 10 out of 10. No treatment prior to arrival. Patient denies diarrhea. Her last bowel movement was yesterday. She denies any urinary symptoms or fevers. (VLADISLAV ALBERTO APRN) Review of Systems: Review of Systems: Constitutional: See HPI GI: See HPI : See HPI Endocrine: See HPI (VLADISLAV ALBERTO APRN) Allergies: Allergies: Allergies Coded Allergies Type Severity Reaction Last Updated Verified adhesive tape Allergy Intermediate 09/16/21 Yes (VLADISLAV ALBERTO APRN) Physical Exam: PE: Constitutional: Well developed, well nourished, no acute distress, non-toxic appearance. [] HENT: Normocephalic, atraumatic, bilateral external ears normal, oropharynx moist, no oral exudates, nose normal. [] Eyes: PERRL, EOMI, conjunctiva normal, no discharge. [] Neck: Normal range of motion, no tenderness, supple, no stridor. [] Cardiovascular:Heart rate regular rhythm, no murmur [] Lungs & Thorax: Bilateral breath sounds clear to auscultation [] Abdomen: Bowel sounds normal, soft, no tenderness, no masses, no pulsatile masses. [] Skin: Warm, dry, no erythema, no rash. [] Back: No tenderness, no CVA tenderness. [] Extremities: No tenderness, no cyanosis, no clubbing, ROM intact, no edema. [] Neurologic: Alert and oriented X 3, normal motor function, normal sensory function, no focal deficits noted. [] Psychologic: Affect normal, judgement normal, mood normal. [] (VLADISLAV ALBERTO HEAT TREAT INSPECTOR) Current Patient Data: Vital Signs: Laboratory Tests Test 03/05/22 18:53 White Blood Count 6.4 x10^3/uL Red Blood Count 4.27 x10^6/uL Hemoglobin 12.6 g/dL Hematocrit 38.6 % Mean Corpuscular Volume 90 fL Mean Corpuscular Hemoglobin 30 pg Mean Corpuscular Hemoglobin Concent 33 g/dL Red Cell Distribution Width 13.7 % Platelet Count 285 x10^3/uL Neutrophils (%) (Auto) 71 % Lymphocytes (%) (Auto) 22 % Monocytes (%) (Auto) 5 % Eosinophils (%) (Auto) 1 % Basophils (%) (Auto) 1 % Neutrophils # (Auto) 4.5 x10^3uL Lymphocytes # (Auto) 1.4 x10^3/uL Monocytes # (Auto) 0.3 x10^3/uL Eosinophils # (Auto) 0.1 x10^3/uL Basophils # (Auto) 0.1 x10^3/uL Sodium Level 136 mmol/L Potassium Level 4.0 mmol/L Chloride Level 97 mmol/L Carbon Dioxide Level 23 mmol/L Anion Gap 16 Blood Urea Nitrogen 10 mg/dL Creatinine 0.5 mg/dL Estimated GFR (Cockcroft-Gault) 144.9 BUN/Creatinine Ratio 20 Glucose Level 327 mg/dL Calcium Level 8.7 mg/dL Phosphorus Level 2.7 mg/dL Magnesium Level 1.6 mg/dL Total Bilirubin 0.6 mg/dL Aspartate Amino Transf (AST/SGOT) 24 U/L Alanine Aminotransferase (ALT/SGPT) 29 U/L Alkaline Phosphatase 79 U/L Troponin I High Sensitivity 18 ng/L Total Protein 5.9 g/dL Albumin 3.0 g/dL Albumin/Globulin Ratio 1.0 Lipase 22 U/L Acetone Level Sm pos Current Medications Medications (Trade) Dose Ordered Sig/Chevy Route PRN Reason Start Time Stop Time Status Last Admin Dose Admin Sodium Chloride 1,000 ml @ 1,000 mls/hr Q1H IV 03/05/22 18:15 03/05/22 19:14 DC Iohexol (Omnipaque 300 Mg/ml) 75 ml 1X ONCE IV 03/05/22 18:30 03/05/22 18:31 DC Info (Do NOT chart on this entry -- for MONITORING) 1 each PRN DAILY PRN SEE COMMENTS 03/05/22 18:30 03/07/22 18:29 Ketorolac Tromethamine (Toradol 30mg Vial) 30 mg 1X ONCE IVP 03/05/22 19:45 03/05/22 19:46 DC Diphenhydramine HCl (Benadryl) 50 mg 1X ONCE IVP 03/05/22 19:45 03/05/22 19:46 DC Insulin Glargine (Lantus Syringe) 20 unit QHS SQ 03/05/22 21:00 Insulin Human Lispro (HumaLOG) 0-5 UNITS TIDWMEALS SQ 03/06/22 08:00 Dextrose (Dextrose 50%-Water Syringe) 12.5 gm PRN Q15MIN PRN IV SEE COMMENTS 03/05/22 19:45 Magnesium Sulfate 50 ml @ 25 mls/hr 1X ONCE IV 03/05/22 20:00 03/05/22 21:59 Potassium Chloride 100 ml @ 50 mls/hr Q1H IV 03/05/22 20:00 03/05/22 23:59 (VLADISLAV ALBERTO APRN) EKG: EKG: [] (VLADISLAV ALBERTO APRN) Radiology/Procedures: Radiology/Procedures: []PROCEDURE: CT ABDOMEN PELVIS WO CONTRAST Exam: CT of abdomen and pelvis without contrast INDICATION: Abdominal pain, nausea vomiting TECHNIQUE: Sequential axial images through the abdomen and pelvis obtained without IV contrast. Sagittal and coronal reformatted images were reconstructed from the axial data and reviewed. Exposure: One or more of the following in the visualized dose reduction techniques were utilized for this examination: 1. Automated exposure control 2. Adjustment of the MA and/or KV according to patient size 3. Use of iterative of reconstructive technique Comparisons: 07/29/2021 FINDINGS: Heart size is normal. No pericardial effusion. Visualized lung bases are clear. No pleural effusion. Evaluation of solid organs limited secondary to noncontrast technique. Liver, spleen, pancreas and adrenals are unremarkable. Gallbladder unremarkable. No perinephric inflammation or hydronephrosis. No renal or ureteral calculi are identified. Bladder is partially distended and appears thin-walled. Uterus not enlarged. There is a cystic lesion at the left adnexa which measures 2.2 cm in diameter. Small amount of free fluid in the pelvis. Moderate amount of stool is noted in the colon. Appendix is normal. No free intra-abdominal air or fluid. No obstruction. Abdominal aorta has normal course and caliber. Abdominal vasculature is patent. No enlarged intra-abdominal lymph nodes are identified. No suspicious osseous lesions or acute fractures. IMPRESSION: 1. Moderate amount of stool noted in the colon, correlate for constipation. 2. Cystic lesion at the left adnexa measuring 2.2 cm. This is favored represent cyst within the left ovary however incompletely characterized on CT. Electronically signed by: Ben Cabral MD (03/05/2022 7:31 PM) [facility] (VLADISLAV ALBERTO APRN) Heart Score: C/O Chest Pain: N/A Risk Factors: Risk Factors: DM, Current or recent (<one month) smoker, HTN, HLP, family history of CAD, obesity. Risk Scores: Score 0 - 3: 2.5% MACE over next 6 weeks - Discharge Home Score 4 - 6: 20.3% MACE over next 6 weeks - Admit for Clinical Observation Score 7 - 10: 72.7% MACE over next 6 weeks - Early Invasive Strategies (VLADISLAV ALBERTO APRN) Course & Med Decision Making: Course & Med Decision Making Pertinent Labs and Imaging studies reviewed. (See chart for details) Patient resents to the emergency department for generalized abdominal pain with nausea and vomiting that started this morning. Patient was noted to have constipation on her CT scan of her abdomen and pelvis and a 2.2 cm left cyst. Patient CBC was unremarkable. Her blood sugar was 327. Her gap was 16, mag 1.6 and this was placed in the ER. Negative troponin. Small acetones noted. Urinalysis is pending at this time. Patient is in DKA. She will be treated with lactated Ringer's, nausea medication. I discussed these findings with supervising physician and patient was ordered her dose of long-acting insulin which is 20 units in the morning at night and she takes NovoLog sliding scale. She was given 40 mEq of potassium. I discussed these findings with Dr. Gonzalez who agreed to admit the patient under his services for uncontrolled diabetes. ER bridge orders placed this time 1958. (VLADISLAV ALBERTO APRN) Course & Med Decision Making Do not see or evaluate patient. And I discussed patient with AGRICULTURE LABORER. Generally agree with AGRICULTURE LABORER's work-up and disposition per note (TANIKA CAMARENA MD) Dragon Disclaimer: Dragon Disclaimer: This electronic medical record was generated, in whole or in part, using a voice recognition dictation system. (VLADISLAV ALBERTO APRN) Departure Departure: Impression: Primary Impression: Uncontrolled diabetes mellitus Qualified Codes: E13.65 - Other specified diabetes mellitus with hyperglycemia Disposition: ADMITTED INPATIENT Admitting Physician: Timothy Gonzalez (VLADISLAV ALBERTO APRN) Condition: STABLE Referrals: AMOR MO MD (PCP) VLADISLAV ALBERTO APRN Mar 05, 2022 18:16 TANIKA CAMARENA MD Mar 05, 2022 20:15
[2022-03-05] MEDS ORDERED: CONTRAST GIVEN. MC PRN (18:30)
[2022-03-05] MEDS ORDERED: IOHEXOL 300 MG/ML 75 ML VIAL. IV ONE (18:30)
[2022-03-05 19:10] LABS: BASO # 0.1 x10^3/uL (0.0-0.2); BASO % 1 % (0-3); EOS # 0.1 x10^3/uL (0.0-0.7); EOS % 1 % (0-3); HEMATOCRIT 38.6 % (36.0-47.0); HEMOGLOBIN 12.6 g/dL (12.0-15.5); LYMPH # 1.4 x10^3/uL (1.0-4.8); LYMPH % 22 % (24-48); MEAN CORPUSCULAR HEMOGLOBIN 30 pg (25-35); MEAN CORPUSCULAR HGB CONC 33 g/dL (31-37); MEAN CORPUSCULAR VOLUME 90 fL (79-100); MONO # 0.3 x10^3/uL (0.0-1.1); MONO % 5 % (0-9); NEUT # 4.5 x10^3uL (1.8-7.7); NEUT % 71 % (31-73); PLATELET COUNT 285 x10^3/uL (140-400); RED BLOOD COUNT 4.27 x10^6/uL (3.50-5.40); RED CELL DISTRIBUTION WIDTH 13.7 % (11.5-14.5); WHITE BLOOD COUNT 6.4 x10^3/uL (4.0-11.0)
[2022-03-05 19:20] LABS: CALCIUM 8.7 mg/dL (8.5-10.1); CREATININE 0.5 mg/dL (0.6-1.0); GFR 144.9
[2022-03-05 19:26] LABS: MAGNESIUM 1.6 mg/dL (1.8-2.4); PHOSPHORUS 2.7 mg/dL (2.6-4.7); TOTAL BILIRUBIN 0.6 mg/dL (0.2-1.0); TOTAL PROTEIN 5.9 g/dL (6.4-8.2)
--- NOTE | 2022-03-05 19:33 | RAD ---
Exam: CT of abdomen and pelvis without contrast INDICATION: Abdominal pain, nausea vomiting TECHNIQUE: Sequential axial images through the abdomen and pelvis obtained without IV contrast. Sagit mary and coronal reformatted images were reconstructed from the axial data and reviewed. Exposure: One or more of the following in the visualized dose reduction techniques were utilized for this examination: 1. Automated exposure control 2. Adjustment of the MA and/or KV according to patient size 3. Use of iterative of reconstructive technique Comparisons: 07/29/2021 FINDINGS: Heart size is normal. No pericardial effusion. Visualized lung bases are clear. No pleural effusion. Evaluation of solid organs limited secondary to noncontrast technique. Liver, spleen, pancreas and adrenals are unremarkable. Gallbladder unremarkable. No perinephric inflammation or hydronephrosis. No renal or ureteral calculi are identified. Bladder is partially distended and appears thin-walled. Uterus not enlarged. There is a cystic lesion at the left adnexa which measures 2.2 cm in diameter. Small amount of free fluid in the pelvis. Moderate amount of stool is noted in the colon. Appendix is normal. No free intra-abdominal air or fl uid. No obstruction. Abdominal aorta has normal course and caliber. Abdominal vasculature is patent. No enlarged intra-abdominal lymph nodes are identified. No suspicious osseous lesions or acute fractures. IMPRESSION: 1. Moderate amount of stool noted in the colon, correlate for constipation. 2. Cystic lesion at the left adnexa measuring 2.2 cm. This is favored represent cyst within the left ovary however incompletely characterized on CT. Electronically signed by: Ben Cabral MD (03/05/2022 7:31 PM) [facility]
[2022-03-05] MEDS ORDERED: DEXTROSE 50% 25 GM / 50ML DISP.SYRIN. IV PRN (19:45)
[2022-03-05] MEDS ORDERED: KETOROLAC 30 MG/ML VIAL. IVP ONE (19:45)
[2022-03-05] MEDS ORDERED: diphenhydrAMINE 50 MG/ML VIAL IVP ONE (19:45)
[2022-03-05] MEDS ORDERED: IV RINGERS SOLUTION,LACTATED 1,000 ML IV ONE ×2 (20:00→22:15)
[2022-03-05] MEDS ORDERED: MAGNESIUM SULFATE 2GM 50 ML IV ONE (20:00)
[2022-03-05] MEDS ORDERED: POTASSIUM CHLORIDE 10MEQ 100 ML IV SCH (20:00)
[2022-03-05] MEDS ORDERED: MAGNESIUM OXIDE 400 MG TABLET PO ONE (21:00)
[2022-03-05] MEDS ORDERED: METOCLOPRAMIDE HCL 10 MG/2 ML VIAL. IVP ONE (21:00)
[2022-03-05] MEDS ORDERED: oxyCODONE/APAP 5/325 1 TAB TABLET PO ONE (21:00)
[2022-03-05] MEDS ORDERED: INSULIN LISPRO 300 UNITS/3 ML VIAL. SQ ONE (21:00)
[2022-03-05] MEDS ORDERED: POTASSIUM CHLORIDE 20 MEQ TABLET.ER. PO ONE (21:00)
[2022-03-05] MEDS ORDERED: INSULIN GLARGINE SYRINGE. SQ SCH (21:00)
[2022-03-05 22:08] LABS: BACTERIA,URINE FEW /HPF (0-FEW); CLARITY,URINE HAZY; COLOR,URINE YELLOW; GLUCOSE,URINE 500 mg/dL (NEG); NITRITE,URINE NEG (NEG); SQUAMOUS EPITHELIAL CELL,UR MOD /LPF; UROBILINOGEN,URINE 0.2 mg/dL (0.2 mg/dL); WBC,URINE >40 /HPF (0-4)
--- NOTE | 2022-03-05 23:24 | EKG ---
[address] [address] Test Date: 2022-03-05 Test Time: 21:24:28 Pat Name: CHALO RAYMUNDO Department: Room: 119 A Gender: F Rn Hemodialysis Charge: REI : 1990 Requested By: VLADISLAV ALBERTO Order Number: [id number] Reading MD: Vasquez Moyer Measurements Intervals Morris Rate: 86 P: 58 TN: 134 QRS: 66 QRSD: 82 T: 64 QT: 362 QTc: 436 Interpretive Statements SINUS RHYTHM LEFT ATRIAL ABNORMALITY Electronically Signed On 03-09-2022 18:32:47 CDT by Vasquez Moyer
[2022-03-06 00:17] LABS: CALCIUM 8.4 mg/dL (8.5-10.1); CREATININE 0.7 mg/dL (0.6-1.0); GFR 98.3; POTASSIUM 4.1 mmol/L (3.5-5.1)
--- NOTE | 2022-03-06 00:37 | RAD ---
AP chest x-ray HISTORY: Diabetic ketoacidosis. COMPARISON: Chest x-ray December 16, 2021 FINDINGS: Cardiac and mediastinal silhouette are normal. No pneumothorax, pulmonary opacities or pleu ral effusions. The bones are normal. IMPRESSION: No acute process. Electronically signed by: Zak Marin MD (03/06/2022 12:34 AM) [facility]
--- NOTE | 2022-03-06 01:04 | NUR ---
The patient, CHALO RAYMUNDO, 31 y/o, F admitted by DANIAL OREILLY MD, was given written information regarding hospital policies, unit procedures and contact persons. Valuables were checked and .
[2022-03-06 01:16] VITALS: BP 167/109
--- NOTE | 2022-03-06 01:30 | NUR ---
Pt ambulated to bed. Valuables checked and left with the patient. Hx and medications reviewed, pt assessed and noted. Pt is hungry, eating boxed lunch. Denies pain. wctm
[2022-03-06 05:37] VITALS: BP 117/76
[2022-03-06 07:22] LABS: BASO # 0.1 x10^3/uL (0.0-0.2); BASO % 1 % (0-3); EOS # 0.1 x10^3/uL (0.0-0.7); EOS % 1 % (0-3); HEMATOCRIT 31.6 % (36.0-47.0); HEMOGLOBIN 10.7 g/dL (12.0-15.5); LYMPH # 2.2 x10^3/uL (1.0-4.8); LYMPH % 33 % (24-48); MEAN CORPUSCULAR HEMOGLOBIN 30 pg (25-35); MEAN CORPUSCULAR HGB CONC 34 g/dL (31-37); MEAN CORPUSCULAR VOLUME 89 fL (79-100); MONO # 0.5 x10^3/uL (0.0-1.1); MONO % 7 % (0-9); NEUT # 3.9 x10^3uL (1.8-7.7); NEUT % 58 % (31-73); PLATELET COUNT 285 x10^3/uL (140-400); RED BLOOD COUNT 3.56 x10^6/uL (3.50-5.40); RED CELL DISTRIBUTION WIDTH 13.3 % (11.5-14.5); WHITE BLOOD COUNT 6.7 x10^3/uL (4.0-11.0)
[2022-03-06 07:33] LABS: ALBUMIN 2.2 g/dL (3.4-5.0); ALBUMIN/GLOBULIN RATIO 0.8 (1.0-1.7); CALCIUM 8.2 mg/dL (8.5-10.1); CREATININE 0.8 mg/dL (0.6-1.0); GFR 84.2; POTASSIUM 4.2 mmol/L (3.5-5.1); TOTAL BILIRUBIN 0.3 mg/dL (0.2-1.0); TOTAL PROTEIN 4.9 g/dL (6.4-8.2)
[2022-03-06] MEDS: INSULIN LISPRO 300 UNITS/3 ML VIAL. SQ SCH ×2 (08:23→11:49)
--- NOTE | 2022-03-06 11:17 | HP ---
DATE OF SERVICE: 03/06/2022 ADMIT DATE: 03/05/2022 CHIEF COMPLAINT: Nausea and elevated blood sugar. HISTORY OF PRESENT ILLNESS: The patient is a 31-year-old female with type 1 diabetes. She has generalized abdominal pain, nausea. She has a diagnosis of gastroparesis and cyclic vomiting syndrome. Whether this is real remains to be seen. In any event, she has also polysubstance abuse. Sugars were greater than 300. Her anion gap was 16. She was admitted then with mild dehydration. She was given copious amounts of fluid along with pain control. It was determined not to give her narcotics because of her substance abuse in the past. She was admitted for further treatment. She had not taken any insulin for the last several days. PAST MEDICAL HISTORY: Significant for type 1 diabetes, multiple admissions with cyclic vomiting, pain control and diabetic ketoacidosis. Compliance has been an issue. PAST SURGICAL HISTORY: Includes ankle surgery. Three ports and ovarian cyst surgery. Drug use includes amphetamines, marijuana and opiates. She drinks alcohol. She smokes on a daily basis. ALLERGIES: ADHESIVE TAPE. CURRENT MEDICATIONS: Include scheduled Lantus and regular insulin. Unfortunately, she has not been compliant. She was also at one time scheduled to take Reglan, but again she has not been compliant. FAMILY HISTORY: Noncontributory. REVIEW OF SYSTEMS: Significant for the substance abuse. No COVID exposure. All other systems reviewed and turned to be negative. PHYSICAL EXAMINATION: GENERAL: When I saw her, this is a pleasant young female. VITAL SIGNS: Initial vital signs showed a blood pressure of 117/76, pulse is 90 and regular. She was afebrile, oxygen saturation 96% on room air. HEENT: Head is without trauma. Pupils are reactive. Sclerae nonicteric. Oropharynx is clear. NECK: Supple, no bruits. LUNGS: Clear. CARDIOVASCULAR: Regular heart tones. ABDOMEN: Soft. Minimal guarding. No rebound tenderness. EXTREMITIES: Without edema. NEUROLOGIC: Focally intact. PERTINENT LABORATORY STUDIES: Admission hemoglobin was 12.6 g/dL with a white count 6400, admission blood sugar was over 300. Anion gap of 16, potassium 4.1 mEq. Imaging studies done in the ED, the abdominal and pelvic CT showed moderate amount of stool in the colon consistent with constipation. No obstruction identified. ASSESSMENT: 1. A 31-year-old female with intractable nausea and vomiting. 2. History of diabetic gastroparesis. 3. Noncompliance of medications. 4. Type 1 diabetes. 5. History of polysubstance abuse. 6. Clinical dehydration. 7. Mild diabetic ketoacidosis symptoms without marina diabetic ketoacidosis. PLAN: 1. Admit to the inpatient unit. 2. IV hydration. 3. Pain control. 4. Nausea control. 5. Restart insulin as scheduled. JERMAN DR: Cristela TID: [id number]
[2022-03-06] MEDS ORDERED: KETOROLAC 30 MG/ML VIAL. IVP ONE (11:30)
[2022-03-06 11:34] VITALS: BP 110/75
--- NOTE | 2022-03-06 13:44 | NUR ---
Discharge Note Patient discharged home. Picked up by mother. VSS @ time of discharge. IV removed. Patient verbalized understanding of discharge instructions. Patient able to voice concerns. All belongings taken from room by patient.
--- NOTE | 2022-03-06 19:58 | DS ---
DATE OF DISCHARGE: 03/06/2022 ATTENDING PHYSICIAN: Dr. Gonzalez FINAL DISCHARGE DIAGNOSES: 1. Hyperglycemia. 2. Type 1 diabetes with poor control. 3. Noncompliance of meds. 4. Polysubstance abuse. 5. History of gastroparesis. 6. Cyclic vomiting syndrome. 7. Dehydration, rehydrated. HISTORY AND PHYSICAL: The patient, age 31, is a type 1 diabetic, well known to us from multiple previous admissions with noncompliance and DKA. At this time, her sugars were not that high, she had only anion gap of 16. Sugar was about 340 mg/dL when she came in. She had significant nausea and was noncompliant with meds. Unfortunately, she is still having a positive drug screen. She was admitted for further treatment and evaluation. PHYSICAL EXAMINATION: Please see the dictated note. PERTINENT LABORATORY AND X-RAY STUDIES: Please see the database. Her subsequent sugar is down to 170 mg/dL, creatinine was stable. Anion gap was 16. CT of the abdomen and pelvis showed some constipation, but no obstruction identified. COURSE IN THE HOSPITAL: The patient was admitted. She was given intravenous fluids in the ED, pain controlled with Toradol and finally glucose controlled with restarting her insulin. Diet was advanced. She was better. She was discharged home the next day with strong encouragement to continue her scheduled Lantus and regular insulin each day along with Reglan. She will follow up with her PCP. Strong encouragement to avoid further substance abuse, whether or not she will make these changes remains to be seen. In any event, the patient was discharged from our hospital in stable condition with explicit drug and followup care. FREDY/CHRIS DR: Cristela TID: [id number]
== END 2022-03-06 13:46 | disposition home or self-care (01) ==
LOC: ER 17:49 → INTOOBSV 20:41 → ER HOLD 20:41 → 1 SOUTH 21:24
PROVIDERS: ADMIT Hospitalist; ATTEND Hospitalist
DX: E10.10 Type 1 diabetes mellitus with ketoacidosis without coma (principal); K31.84 Gastroparesis; E10.43 Type 1 diabetes mellitus with diabetic autonomic (poly)neuropathy; N83.202 Unspecified ovarian cyst, left side; E86.0 Dehydration; R11.2 Nausea with vomiting, unspecified; F17.210 Nicotine dependence, cigarettes, uncomplicated; F15.90 Other stimulant use, unspecified, uncomplicated; F12.90 Cannabis use, unspecified, uncomplicated; F11.90 Opioid use, unspecified, uncomplicated; R11.15 Cyclical vomiting syndrome unrelated to migraine; Z79.4 Long term (current) use of insulin; Z91.14 Patient's other noncompliance with medication regimen; Z91.19 Patient's noncompliance with other medical treatment and regimen; Z79.899 Other long term (current) drug therapy; Z98.890 Other specified postprocedural states
CPT/HCPCS: 36415; 71045; 74176; 80048; 80053; 81001; 81025; 82010; 82947; 83690; 83735; 84100; 84484; 85025; 87086; 93005; 96372; 96374; 96375; 96376; 99285; G0378; J1200; J1815; J1885; J2765; J7120; 96361; G0379

== ENCOUNTER 2022-04-09 16:41 | Emergency (ER) | payer MEDICAID ==
[~2022-04-09] VITALS: Ht 172.7 cm; Wt 61.0 kg
[2022-04-09] MEDS: ONDANSETRON ODT 4 MG TAB.RAPDIS PO ONE (17:05)
--- NOTE | 2022-04-09 17:23 | PHYS DOC ---
Past History Past Medical History: Diabetes Additional Past Medical Histor: gastroparesis, substance use disorder, cyclic vomiting Past Surgical History: Other Additional Past Surgical Histo: ovarian cyst;eyex3;earx3;port;chest tubes; bx of rt ankle Smoking: Cigarettes Alcohol Use: None Drug Use: Amphetamine, Marijuana, Opiates Social History Narrative: she denies useage General Adult EDM: Chief Complaint: BLOOD SUGAR PROBLEM HPI: HPI: 31-year-old female well-known to the emergency room presents via EMS with reported blood sugar problem. She states that she is having profuse vomiting which is usually why she comes to the emergency room. She also thinks her blood sugars messed up. She does not have any new or different complaints. Review of Systems: Review of Systems: Constitutional: Denies fever or chills Eyes: Denies change in visual acuity HENT: Denies nasal congestion or sore throat Respiratory: Denies cough or shortness of breath Cardiovascular: Denies chest pain or edema GI: Generalized abdominal pain, vomiting. : Denies dysuria Musculoskeletal: Denies back pain or joint pain Integument: Denies rash Neurologic: Denies headache, focal weakness or sensory changes Endocrine: Denies polyuria or polydipsia Lymphatic: Denies swollen glands Psychiatric: Denies depression or anxiety Current Medications: Current Meds: Current Medications Medications (Trade) Dose Ordered Sig/Chevy Start Time Stop Time Status Last Admin Dose Admin Olanzapine (ZyPREXA ZYDIS) 10 mg 1X ONCE 04/09/22 17:10 04/09/22 17:11 DC 04/09/22 17:05 10 MG Ondansetron HCl (Zofran Odt) 4 mg 1X ONCE 04/09/22 17:00 04/09/22 17:01 DC 04/09/22 17:05 4 MG Allergies: Allergies: Allergies Coded Allergies Type Severity Reaction Last Updated Verified adhesive tape Allergy Intermediate 09/16/21 Yes Physical Exam: PE: Constitutional: Well developed, well nourished, no acute distress, non-toxic appearance. [] HENT: Normocephalic, atraumatic, bilateral external ears normal, oropharynx moist, no oral exudates, nose normal. [] Eyes: PERRLA, EOMI, conjunctiva normal, no discharge. [] Neck: Normal range of motion, no tenderness, supple, no stridor. [] Cardiovascular: Heart rate 89, regular rhythm, no murmur [] Lungs & Thorax: Bilateral breath sounds clear to auscultation [] Abdomen: Bowel sounds normal, soft, no tenderness, no masses, no pulsatile masses. [] Skin: Warm, dry, no erythema, no rash. [] Back: No tenderness, no CVA tenderness. [] Extremities: No tenderness, no cyanosis, no clubbing, ROM intact, no edema. [] Neurologic: Alert and oriented X 3, normal motor function, normal sensory function, no focal deficits noted. [] Psychologic: Affect dramatic, judgement normal, mood normal. [] Current Patient Data: Labs: Laboratory Tests Test 04/09/22 16:45 Glucose (Fingerstick) 184 mg/dL (70-99) H Vital Signs: Vital Signs Date Time Temp Pulse Resp B/P (MAP) Pulse Ox O2 Delivery O2 Flow Rate FiO2 04/09/22 16:54 97.7 96 18 148/98 (115) 100 Room Air EKG: EKG: [] Radiology/Procedures: Radiology/Procedures: [] Heart Score: C/O Chest Pain: N/A Risk Factors: Risk Factors: DM, Current or recent (<one month) smoker, HTN, HLP, family history of CAD, obesity. Risk Scores: Score 0 - 3: 2.5% MACE over next 6 weeks - Discharge Home Score 4 - 6: 20.3% MACE over next 6 weeks - Admit for Clinical Observation Score 7 - 10: 72.7% MACE over next 6 weeks - Early Invasive Strategies Course & Med Decision Making: Course & Med Decision Making Pertinent Labs and Imaging studies reviewed. (See chart for details) On arrival, the patient's blood sugar was under 200. Her blood pressure is normal. Her heart rate is normal. She is retching but not vomiting. I have ordered 4 mg of Zofran ODT as well as 10 mg of Zyprexa p.o. I once again informed the patient that she needs to take better care of herself by managing her diabetes and not doing marijuana and methamphetamines. Her symptoms are the natural consequence of her behavior. She is stable for discharge at this time. [] Dragon Disclaimer: Dragon Disclaimer: This electronic medical record was generated, in whole or in part, using a voice recognition dictation system. Departure Departure: Impression: Primary Impression: Chronic abdominal pain Additional Impression: Dry heaves Disposition: 01 HOME / SELF CARE / HOMELESS Condition: STABLE Referrals: AMOR MO MD (PCP) Patient Instructions: Cyclic Vomiting Syndrome ROXY SU DO April 09, 2022 17:22
[2022-04-09 17:40] VITALS: BP 144/96
== END 2022-04-09 17:40 | disposition home or self-care (01) ==
LOC: ER 16:41
DX: G89.29 Other chronic pain (principal); R11.10 Vomiting, unspecified; E11.9 Type 2 diabetes mellitus without complications; F17.210 Nicotine dependence, cigarettes, uncomplicated; Z88.8 Allergy status to other drugs, medicaments and biological substances
CPT/HCPCS: 82947; 99283; Q0162

== ENCOUNTER 2022-04-12 05:04 | Emergency (ER) | payer MEDICAID ==
[~2022-04-12] VITALS: Ht 172.7 cm; Wt 61.0 kg
--- NOTE | 2022-04-12 05:14 | PHYS DOC ---
Past History Past Medical History: Diabetes Additional Past Medical Histor: gastroparesis, substance use disorder, cyclic vomiting (YELENA HENRY MD) Past Surgical History: Other Additional Past Surgical Histo: ovarian cyst;eyex3;earx3;port;chest tubes; bx of rt ankle (YELENA HENRY MD) Smoking: Cigarettes Alcohol Use: None Drug Use: Amphetamine, Marijuana, Opiates (YELENA HENRY MD) General Adult HPI: HPI: "...I am hurting all over my abdomen... I ve been vomiting all day.... " Patient is a 31 year old female who presents with above hx and complaints nausea, vomiting, abdomen, hyperglycemia, weakness. Pt. well-known to ED staff for frequent evaluations for hyperglycemia, gastroparesis and cyclic vomiting. Patient is a known diabetic and has history of polysubstance abuse. Glucose levels today were too high to read. Patient has had multiple admissions for cyclic vomiting, pain control and diabetic ketoacidosis. Patient denies any bad food intake. Patient denies any trauma. Patient denies any recent travel outside the [facility]. Overall compliance medical regimens for her diabetes control has always been a chronic issue. Patient does continue to smoke tobacco and uses marijuana. Past surgical history of ankle surgery. IV ports. Ovarian cyst surgery. The pt. currently following with Dr. Mo. (YELENA HENRY MD) Review of Systems: Review of Systems: Constitutional: Denies fever or chills Eyes: Denies change in visual acuity HENT: Denies nasal congestion or sore throat Respiratory: Denies cough or shortness of breath Cardiovascular: Denies chest pain or edema GI: Complains of abdominal pain, nausea, vomiting,. Denies bloody stools or diarrhea : Denies dysuria Musculoskeletal: Denies back pain or joint pain. Complains of generalized weakness Integument: Denies rash Neurologic: Denies headache, focal weakness or sensory changes Endocrine: Denies polyuria or polydipsia Lymphatic: Denies swollen glands Psychiatric: Denies depression or anxiety (YELENA HENRY MD) Family History: Family History: Noncontributory to presentation. (YELENA HENRY MD) Current Medications: Current Meds: See nursing for home meds (YELENA HENRY MD) Allergies: Allergies: Allergies Coded Allergies Type Severity Reaction Last Updated Verified adhesive tape Allergy Intermediate 09/16/21 Yes (YELENA HENRY MD) Physical Exam: PE: Constitutional: Reports moderate acute distress, non-toxic appearance. [] HENT: Normocephalic, atraumatic, bilateral external ears normal, oropharynx dry, no oral exudates, nose normal. [] Eyes: PERRLA, EOMI, conjunctiva normal, no discharge. [] Neck: Normal range of motion, no tenderness, supple, no stridor. [] Cardiovascular: Tachycardia heart rate regular rhythm, no murmur. Bedside mo nitor shows a sinus tachycardia range of 1 20-1 30. Lungs & Thorax: Bilateral breath sounds equal apex with few scattered wheezes on auscultation [] Abdomen: Bowel sounds decreased, soft, generalized tenderness, no masses, no pulsatile masses. Old surgery scars Skin: Warm, dry, no erythema, no rash. Tattoos. Poor turgor. Back: No tenderness, no CVA tenderness. [] Extremities: No tenderness, no cyanosis, no clubbing, ROM intact, no edema. No obvious cording. No sulcus sign. Neurologic: Alert and oriented X 3, moves all extremities on request, does have distal sensory,, no focal deficits noted. [] Was ambulatory to the bathroom Psychologic: Affect anxious, judgement normal, mood depressed. (YELENA HENRY MD) EKG: EKG: [] (YELENA HENRY MD) EKG: Sinus tachycardia with a heart rate of 125, prominent peaked T waves, narrow QRS, no STEMI (KAREN GAMBLE MD) Radiology/Procedures: Radiology/Procedures: [] (YELENA HENRY MD) Heart Score: C/O Chest Pain: No HEART Score for Chest Pain: HEART Score for Chest Pain Response (Comments) Value History Moderately Suspicious 1 ECG Nonspecific Repolarizatio 1 Age < 45 0 Risk Factors 1 or 2 Risk Factors 1 Total 3 Risk Factors: Risk Factors: DM, Current or recent (<one month) smoker, HTN, HLP, family history of CAD, obesity. Risk Scores: Score 0 - 3: 2.5% MACE over next 6 weeks - Discharge Home Score 4 - 6: 20.3% MACE over next 6 weeks - Admit for Clinical Observation Score 7 - 10: 72.7% MACE over next 6 weeks - Early Invasive Strategies (YELENA HENRY MD) C/O Chest Pain: N/A (KAREN GAMBLE MD) Course & Med Decision Making: Course & Med Decision Making Pertinent Labs and Imaging studies reviewed. (See chart for details) Endorsed to Dr. Gamble at shift change. Impression: 1. Abdomen pain 2. Cyclic Vomiting 3. Hyperglycemia [] (YELENA HENRY MD) Course & Med Decision Making Accepted patient care at shift change. Pending labs and EKG. EKG shows prominent peaked T waves, with a narrow QRS. Potassium 7.1. Treated with IV insulin and calcium IV fluids. Patient in DKA with an anion gap of 32, consult placed to hospitalist to Dr. River Bacon will accept patient to ICU for DKA. Total critical care time: 40 The time involved in the performance of separately reportable/billable procedures was not counted toward critical care time. Due to a high probability of clinically significant, life-threatening deterioration the patient required a high level of care to intervene emergently and I personally spent this critical time directly and personally managing the patient. The critical care time included obtaining a history, examination of the patient, assessment of vital signs, ordering and review of studies, arranging urgent treatment with development of a management plan, evaluation of patient's response to treatment, frequent reassessment, and discussions with other providers and/or family members. (KAREN GAMBLE MD) Dragon Disclaimer: Dragon Disclaimer: This electronic medical record was generated, in whole or in part, using a voice recognition dictation system. (YELENA HENRY MD) Departure Departure: Impression: Primary Impression: Diabetic ketoacidosis Additional Impression: Hyperkalemia Disposition: 02 SHORT TERM HOSPITAL Condition: CRITICAL Referrals: AMOR MO MD (PCP) Dragon Disclaimer This chart was dictated in whole or in part using Voice Recognition software in a busy, high-work load, and often noisy Emergency Department environment. It may contain unintended and wholly unrecognized errors or omissions. (YELENA HENRY MD) YELENA HENRY MD April 12, 2022 05:14 KAREN GAMBLE MD April 12, 2022 08:17
[2022-04-12] MEDS ORDERED: ONDANSETRON PF 4 MG/2 ML VIAL. IVP ONE (05:30)
[2022-04-12] MEDS ORDERED: FAMOTIDINE 20 MG/2 ML VIAL IVP ONE (05:30)
[2022-04-12] MEDS ORDERED: INSULIN REGULAR VIAL 100 UNIT in IV NORMAL SALINE 100ML 100 ML IV PRN (05:30)
[2022-04-12] MEDS ORDERED: INSULIN REGULAR 100 UNIT/ML 3ML VIAL. IV ONE ×2 (05:30→07:00)
[2022-04-12] MEDS ORDERED: IV NORMAL SALINE 1,000ML 1,000 ML IV SCH ×2 (05:30→07:00)
[2022-04-12 06:14] VITALS: BP 118/62
[2022-04-12 06:28] LABS: BARBITURATES NEG (NEG); BENZODIAZEPINES NEG (NEG); CANNABINOIDS NEG (NEG); COCAINE NEG (NEG); METHADONE NEG (NEG); OPIATES NEG (NEG); PHENCYCLIDINE NEG (NEG)
[2022-04-12 06:29] LABS: AMPHETAMINE/METHAMPHETAMINE POS (NEG)
[2022-04-12 06:34] LABS: BACTERIA,URINE 0 /HPF (0-FEW); CLARITY,URINE CLOUDY; COLOR,URINE YELLOW; GLUCOSE,URINE 500 mg/dL (NEG); NITRITE,URINE NEG (NEG); RBC,URINE 20-40 /HPF (0-2); SQUAMOUS EPITHELIAL CELL,UR MANY /LPF; UROBILINOGEN,URINE 0.2 mg/dL (0.2 mg/dL); WBC,URINE >40 /HPF (0-4)
[2022-04-12 06:39] LABS: ALBUMIN 3.8 g/dL (3.4-5.0); CALCIUM 9.3 mg/dL (8.5-10.1); CREATININE 1.6 mg/dL (0.6-1.0); DIRECT BILIRUBIN 0.3 mg/dL (0.0-0.2); GFR 37.8; TOTAL BILIRUBIN 0.9 mg/dL (0.2-1.0); TOTAL PROTEIN 7.6 g/dL (6.4-8.2)
[2022-04-12 06:45] LABS: POTASSIUM 7.1 mmol/L (3.5-5.1)
[2022-04-12] MEDS ORDERED: DEXTROSE 50% 25 GM / 50ML DISP.SYRIN. IV ONE (07:00)
[2022-04-12] MEDS ORDERED: CALCIUM GLUCONATE 1,000 MG/10 ML VIAL IV ONE (07:00)
[2022-04-12 07:06] LABS: BASO # 1.1 x10^3/uL (0.0-0.2); BASO % 6 % (0-3); EOS % 0 % (0-3); HEMATOCRIT 45.7 % (36.0-47.0); HEMOGLOBIN 14.5 g/dL (12.0-15.5); LYMPH # 1.7 x10^3/uL (1.0-4.8); LYMPH % 9 % (24-48); MEAN CORPUSCULAR HEMOGLOBIN 30 pg (25-35); MEAN CORPUSCULAR HGB CONC 32 g/dL (31-37); MEAN CORPUSCULAR VOLUME 95 fL (79-100); MONO # 0.7 x10^3/uL (0.0-1.1); MONO % 4 % (0-9); NEUT % 81 % (31-73); PLATELET COUNT 382 x10^3/uL (140-400); RED BLOOD COUNT 4.82 x10^6/uL (3.50-5.40); RED CELL DISTRIBUTION WIDTH 13.4 % (11.5-14.5); WHITE BLOOD COUNT 18.5 x10^3/uL (4.0-11.0)
[2022-04-12 07:12] LABS: U PREG PATIENT NEGATIVE (NEG)
[2022-04-12] MEDS ORDERED: IV RINGERS SOLUTION,LACTATED 1,000 ML IV ONE (07:15)
[2022-04-12 07:16] LABS: INFLUENZA A PATIENT NEGATIVE (NEGATIVE); INFLUENZA B PATIENT NEGATIVE (NEGATIVE)
[2022-04-12] MEDS ORDERED: IV NORMAL SALINE 50ML 50 ML ONE (07:28)
[2022-04-12] MEDS ORDERED: cefTRIAXone SODIUM 1 GM VIAL ONE (07:29)
[2022-04-12] MEDS ORDERED: IV NORMAL SALINE 1,000ML 1,000 ML IV ONE (08:00)
[2022-04-12 11:31] LABS: % BANDS 4 % (0-9); % BASOS 1 % (0-3); % LYMPHS 9 % (24-48); % MONOS 1 % (0-10); % MYELOS 1 % (0-0); % SEGS 84 % (35-66)
[2022-04-12 11:32] LABS: BURR CELLS PRESENT
[2022-04-12 11:33] LABS: PLT ESTIMATE ADEQUATE (ADEQUATE)
== END 2022-04-12 10:05 | disposition short-term general hospital (02) ==
LOC: ER 05:04
DX: E11.10 Type 2 diabetes mellitus with ketoacidosis without coma (principal); E87.5 Hyperkalemia; E11.65 Type 2 diabetes mellitus with hyperglycemia; F17.210 Nicotine dependence, cigarettes, uncomplicated; Z20.822 Contact with and (suspected) exposure to COVID-19; Z88.8 Allergy status to other drugs, medicaments and biological substances
CPT/HCPCS: 36415; 80048; 80076; 80307; 81001; 81025; 82550; 82803; 82947; 83605; 83690; 84484; 85007; 85025; 85610; 85730; 87086; 87147; 87428; 93005; 96361; 96365; 96366; 96367; 96375; 96376; 99291; J0610; J0696; J1815; J2405; J3490; J7030; J7120

== ENCOUNTER 2022-04-14 12:16 | Emergency (ER) | payer MEDICAID ==
[~2022-04-14] VITALS: Ht 172.7 cm; Wt 61.0 kg
[2022-04-14 12:27] VITALS: BP 160/95
[2022-04-14] MEDS ORDERED: IV NORMAL SALINE 1,000ML 1,000 ML IV ONE (12:45)
[2022-04-14] MEDS ORDERED: ONDANSETRON PF 4 MG/2 ML VIAL. IVP ONE (12:45)
[2022-04-14 13:48] LABS: BASO # 0.1 x10^3/uL (0.0-0.2); BASO % 1 % (0-3); EOS # 0.2 x10^3/uL (0.0-0.7); EOS % 2 % (0-3); HEMATOCRIT 35.8 % (36.0-47.0); HEMOGLOBIN 12.1 g/dL (12.0-15.5); LYMPH # 1.8 x10^3/uL (1.0-4.8); LYMPH % 19 % (24-48); MEAN CORPUSCULAR HEMOGLOBIN 30 pg (25-35); MEAN CORPUSCULAR HGB CONC 34 g/dL (31-37); MEAN CORPUSCULAR VOLUME 87 fL (79-100); MONO # 0.7 x10^3/uL (0.0-1.1); MONO % 7 % (0-9); NEUT # 6.6 x10^3uL (1.8-7.7); NEUT % 71 % (31-73); PLATELET COUNT 257 x10^3/uL (140-400); RED CELL DISTRIBUTION WIDTH 13.4 % (11.5-14.5); WHITE BLOOD COUNT 9.3 x10^3/uL (4.0-11.0)
[2022-04-14] MEDS ORDERED: HALOPERIDOL LACT 5 MG/ML VIAL. IVP ONE (14:00)
[2022-04-14] MEDS ORDERED: diphenhydrAMINE 50 MG/ML VIAL IVP ONE (14:00)
[2022-04-14 14:10] LABS: PLATELET CLUMP PRESENT; PLT ESTIMATE ADEQUATE (ADEQUATE)
[2022-04-14 14:27] LABS: CALCIUM 8.1 mg/dL (8.5-10.1); CREATININE 0.4 mg/dL (0.6-1.0); GFR 187.4; POTASSIUM 4.1 mmol/L (3.5-5.1)
[2022-04-14 14:33] LABS: ALBUMIN 2.7 g/dL (3.4-5.0); ALBUMIN/GLOBULIN RATIO 0.9 (1.0-1.7); TOTAL BILIRUBIN 0.4 mg/dL (0.2-1.0)
[2022-04-14 14:33] LABS: CLARITY,URINE CLOUDY; COLOR,URINE YELLOW; GLUCOSE,URINE 250 mg/dL (NEG); NITRITE,URINE NEG (NEG); UROBILINOGEN,URINE 0.2 mg/dL (0.2 mg/dL)
[2022-04-14 14:34] LABS: BACTERIA,URINE 0 /HPF (0-FEW); RBC,URINE >40 /HPF (0-2); SQUAMOUS EPITHELIAL CELL,UR MOD /LPF
[2022-04-14 14:37] LABS: TOTAL PROTEIN 5.7 g/dL (6.4-8.2)
--- NOTE | 2022-04-14 15:44 | PHYS DOC ---
Past History Past Medical History: Diabetes Additional Past Medical Histor: gastroparesis, substance use disorder, cyclic vomiting Past Surgical History: Other Additional Past Surgical Histo: ovarian cyst;eyex3;earx3;port;chest tubes; bx of rt ankle Smoking: Cigarettes Alcohol Use: Rarely Drug Use: Amphetamine, Marijuana, Opiates General Adult EDM: Chief Complaint: NAUSEA/VOMITING/DIARRHEA HPI: HPI: Patient is a 31-year-old female presents with nausea, vomiting, abdominal pain. Patient was seen yesterday at [facility] and treated for DKA.Patient is a 31 year old female who presents with complaints nausea, vomiting, abdomen pain. Pt. well-known to ED staff for frequent evaluations for hyperglycemia, gastroparesis and cyclic vomiting. Patient is a known diabetic and has history of polysubstance abuse. Glucose was 188. Patient has had multiple admissions for cyclic vomiting, pain control and diabetic ketoacidosis. Compliance issues with her diabetes control has been a chronic issue. Daily tobacco use and marijuana. Review of Systems: Review of Systems: ROS At least 10 ROS systems have been reviewed and are negative except as documented in the HPI. General: Negative except as outlined in HPI above. Skin: Negative except as outlined in HPI above. HEENT: Negative except as outlined in HPI above. Neck: Negative except as outlined in HPI above. Respiratory: Negative except as outlined in HPI above.. Cardiovascular: Negative except as outlined in HPI above. Abdomen: Negative except as outlined in HPI above. : Negative except as outlined in HPI above. Back/MSK: Negative except as outlined in HPI above. Neuro: Negative except as outlined in HPI above. Psych: Negative except as outlined in HPI above. Current Medications: Current Meds: Current Medications Medications (Trade) Dose Ordered Sig/Chevy Start Time Stop Time Status Last Admin Dose Admin Diphenhydramine HCl (Benadryl) 25 mg 1X ONCE 04/14/22 14:00 04/14/22 14:01 DC 04/14/22 14:06 25 MG Haloperidol Lactate (Haldol) 5 mg 1X ONCE 04/14/22 14:00 04/14/22 14:01 DC 04/14/22 14:06 5 MG Ondansetron HCl (Zofran) 4 mg 1X ONCE 04/14/22 12:45 04/14/22 12:46 DC 04/14/22 13:22 4 MG Sodium Chloride 1,000 ml @ 1,000 mls/hr 1X ONCE 04/14/22 12:45 04/14/22 13:44 DC 04/14/22 13:22 1,000 MLS/HR Allergies: Allergies: Allergies Coded Allergies Type Severity Reaction Last Updated Verified adhesive tape Allergy Intermediate 09/16/21 Yes Physical Exam: PE: Constitutional: Well developed, well nourished, no acute distress, non-toxic appearance. [] HENT: Normocephalic, atraumatic, bilateral external ears normal, oropharynx moist, no oral exudates, nose normal. [] Eyes: PERRLA, EOMI, conjunctiva normal, no discharge. [] Neck: Normal range of motion, no tenderness, supple, no stridor. [] Cardiovascular:Heart rate regular rhythm, no murmur [] Lungs & Thorax: Bilateral breath sounds clear to auscultation [] Abdomen: Bowel sounds normal, soft, tenderness Skin: Warm, dry, no erythema, no rash. [] Back: No tenderness, no CVA tenderness. [] Extremities: No tenderness, no cyanosis, no clubbing, ROM intact, no edema. [] Neurologic: Alert and oriented X 3, normal motor function, normal sensory function, no focal deficits noted. [] Psychologic: Affect normal, judgement normal, mood normal. [] Current Patient Data: Labs: Laboratory Tests Test 04/14/22 13:15 04/14/22 13:48 04/14/22 13:56 White Blood Count 9.3 x10^3/uL (4.0-11.0) Red Blood Count 4.10 x10^6/uL (3.50-5.40) Hemoglobin 12.1 g/dL (12.0-15.5) Hematocrit 35.8 % (36.0-47.0) L Mean Corpuscular Volume 87 fL (79-100) # Mean Corpuscular Hemoglobin 30 pg (25-35) Mean Corpuscular Hemoglobin Concent 34 g/dL (31-37) Red Cell Distribution Width 13.4 % (11.5-14.5) Platelet Count 257 x10^3/uL (140-400) Neutrophils (%) (Auto) 71 % (31-73) Lymphocytes (%) (Auto) 19 % (24-48) L Monocytes (%) (Auto) 7 % (0-9) Eosinophils (%) (Auto) 2 % (0-3) Basophils (%) (Auto) 1 % (0-3) Neutrophils # (Auto) 6.6 x10^3uL (1.8-7.7) Lymphocytes # (Auto) 1.8 x10^3/uL (1.0-4.8) Monocytes # (Auto) 0.7 x10^3/uL (0.0-1.1) Eosinophils # (Auto) 0.2 x10^3/uL (0.0-0.7) Basophils # (Auto) 0.1 x10^3/uL (0.0-0.2) Platelet Estimate Adequate (ADEQUATE) Platelet Clumps, EDTA Present Urine Collection Type Unknown Urine Color Yellow Urine Clarity Cloudy Urine pH 7.5 Urine Specific [place] >=1.030 Urine Protein 30 mg/dl (NEG-TRACE) Urine Glucose (UA) 250 mg/dL (NEG) Urine Ketones (Stick) Neg mg/dL (NEG) Urine Blood Small (NEG) Urine Nitrite Neg (NEG) Urine Bilirubin Neg (NEG) Urine Urobilinogen Dipstick 0.2 mg/dL (0.2 mg/dL) Urine Leukocyte Esterase Neg (NEG) Urine RBC >40 /HPF (0-2) Urine WBC 5-10 /HPF (0-4) Urine Squamous Epithelial Cells Mod /LPF Urine Transitional Epithelial Cells Occ /LPF Urine Bacteria 0 /HPF (0-FEW) Sodium Level 135 mmol/L (136-145) L Potassium Level 4.1 mmol/L (3.5-5.1) Chloride Level 101 mmol/L (98-107) Carbon Dioxide Level 28 mmol/L (21-32) Anion Gap 6 (6-14) Blood Urea Nitrogen 10 mg/dL (7-20) Creatinine 0.4 mg/dL (0.6-1.0) L Estimated GFR (Cockcroft-Gault) 187.4 BUN/Creatinine Ratio 25 (6-20) H Glucose Level 188 mg/dL (70-99) H Calcium Level 8.1 mg/dL (8.5-10.1) L Total Bilirubin 0.4 mg/dL (0.2-1.0) Aspartate Amino Transferase (AST) 35 U/L (15-37) Alanine Aminotransferase (ALT) 32 U/L (14-59) Alkaline Phosphatase 96 U/L (46-116) Total Protein 5.7 g/dL (6.4-8.2) L Albumin 2.7 g/dL (3.4-5.0) L Albumin/Globulin Ratio 0.9 (1.0-1.7) L Vital Signs: Vital Signs Date Time Temp Pulse Resp B/P (MAP) Pulse Ox O2 Delivery O2 Flow Rate FiO2 04/14/22 12:27 98.2 85 18 160/95 (116) 96 Room Air EKG: EKG: [] Radiology/Procedures: Radiology/Procedures: [] Heart Score: C/O Chest Pain: No Risk Factors: Risk Factors: DM, Current or recent (<one month) smoker, HTN, HLP, family history of CAD, obesity. Risk Scores: Score 0 - 3: 2.5% MACE over next 6 weeks - Discharge Home Score 4 - 6: 20.3% MACE over next 6 weeks - Admit for Clinical Observation Score 7 - 10: 72.7% MACE over next 6 weeks - Early Invasive Strategies Course & Med Decision Making: Course & Med Decision Making Pertinent Labs and Imaging studies reviewed. (See chart for details) [] 31-year-old male presents with nausea/vomiting/abdominal pain. Patient is well-known to this ER for cyclic vomiting and noncompliance with diabetic control. Work-up in ER consist of CBC, CMP, urinalysis. NS bolus given. Blood sugar was 188 on arrival. Patient is complaining of nausea and pain. Patient given Haldol and Benadryl. UA is positive for blood. Negative for infection. Patient is currently on her menstrual cycle. Patient reports that her symptoms have improved. Patient has been sleeping and no complaints of nausea or vomiting. I discussed follow-up with patient. Patient verbalizes understanding of discharge instructions. Patient's appreciative and okay with discharge plan. Annelise Disclaimer: Annelise Disclaimer: This electronic medical record was generated, in whole or in part, using a voice recognition dictation system. Departure Departure: Impression: Primary Impression: Chronic abdominal pain Disposition: HOME / SELF CARE / HOMELESS Condition: STABLE Referrals: AMOR MO MD (PCP) Patient Instructions: Abdominal Pain Additional Instructions: You are seen in the emergency room for nausea, vomiting and abdominal pain. Please follow-up with your PCP and GI doctor. Make sure that you are taking your insulin as directed.return to the ER with worsening symptoms or concerns. EMERGENCY DEPARTMENT GENERAL DISCHARGE INSTRUCTIONS Thank you for coming to [facility] (ED) today and trusting us with you care. We trust that you had a positivie experience in our Emergency Department. If you wish to speak to the department management, you may call the director at [phone]. YOUR FOLLOW UP INSTRUCTIONS ARE FOLLOWS: 1. Do you have a private Doctor? If you do not have a private doctor, please ask for a resource list of physicians or clinics that may be able to assist you with follow up care. 2. The Emergency Physician has interpreted your x-rays. The X-Ray specialist will also review them. If there is a change in the findings, you will be notified in 48 hours when at all possible. 3. A lab test or culture has been done, your results will be reviewed and you will be notified if you need a change in treatment. ADDITIONAL INSTRUCTIONS AND INFORMATION: 1. Your care today has been supervised by a physician who is specially trained in emergency care. Many problems require more than one evaluation for a complete diagnosis and treatment. We recommend that you schedule your follow up appointment as recommended to ensure complete treatment of you illness or injury. If you are unable to obtain follow up care and continue to have a problem, or if your condition worsens, we recommend that you return to the ED. 2. We are not able to safely determine your condition over the phone nor are we able to give sound medical advice over the phone. For these safety reasons, if you call for medical advice we will ask you to come to the ED for further evaluation. 3. If you have any questions regarding these discharge instructions please call the ED at [phone]. SAFETY INFORMATION: In the interest of safety, wellness, and injury prevention; we encourage you to wear your sealbelt, if you smoke; quite smoking, and we encourage family to use a protective helmet for bicycling and other sporting events that present an increased risk for head injury. IF YOUR SYMPTOMS WORSEN OR NEW SYMPTOMS DEVELOP, OR YOU HAVE CONCERNS ABOUT YOUR CONDITION; OR IF YOUR CONDITION WORSENS WHILE YOU ARE WAITING FOR YOUR FOLLOW UP APPOINTMENT; EITHER CONTACT YOUR PRIMARY CARE DOCTOR, THE PHYSICIAN WHOSE NAME AND NUMBER YOU WERE GIVEN, OR RETURN TO THE ED IMMEDIATELY. TU CASTANEDA APRN April 14, 2022 15:44
== END 2022-04-14 16:35 | disposition home or self-care (01) ==
LOC: ER 12:16
DX: G89.29 Other chronic pain (principal); R10.9 Unspecified abdominal pain; R11.2 Nausea with vomiting, unspecified; E11.9 Type 2 diabetes mellitus without complications; F17.210 Nicotine dependence, cigarettes, uncomplicated; Z88.8 Allergy status to other drugs, medicaments and biological substances
CPT/HCPCS: 36415; 80053; 81001; 85025; 87086; 96361; 96374; 96375; 99284; J1200; J1630; J2405; J7030